=== PATIENT | female | born 1945 | race Caucasian/White ===

== ENCOUNTER → 2017-08-14 14:59 | Outpatient (CLI) | payer MEDICARE, SELFPAY ==
--- NOTE | 2017-08-14 15:03 | HPBI_ITS ---
MAMMOGRAPHY - BILATERAL SCREENING REASON FOR EXAM: Female, 71 years old. Routine annual screening examination. PERTINENT HISTORY: Mother with breast cancer. TECHNIQUE: Digital bilateral breast deepa (3D mammographic acquisition) in the CC and MLO projections. 2-D mediolateral oblique (MLO) and craniocaudad (CC) views of both breasts were obtained. CAD: Full Field Digital Mammography with Computer Added Detection was performed. COMPARISON: Comparison is made with prior study dated July 25, 2015 and November 16, 2013. FINDINGS: Breast Composition: There are scattered areas of fibroglandular density. There are no dominant masses or suspicious calcifications. Stable benign-appearing left axillary lymph nodes. No other significant abnormalities are identified. There has been no significant change since the prior study. HPBI/SCREENING MAMM (CAD), BILAT IMPRESSION: Stable bilateral screening mammogram. Yearly follow-up mammogram recommended. (A) ASSESSMENT CATEGORY: BIRADS Category 2: Benign. A letter regarding these results will be sent to the patient by the facility within 30 days. Approximately 10% of breast cancers are not detected by mammography. A normal mammogram should not delay biopsy of a clinically suspicious abnormality. [id number] Electronically Signed: Arnaldo Magallon MD at 8:50 EST Tel [phone], Service support ,
--- NOTE | 2017-08-14 15:05 | HPBD_ITS ---
STUDY: DUAL ENERGY X-RAY ABSORPTIOMETRY / DXA REASON FOR EXAM: Female, 71 years old. The patient is postmenopausal. TECHNIQUE: Bone Mineral Density (BMD) measurements of lumbar spine and bilateral hips were obtained. COMPARISON: Comparison is made with prior examination dated July 25, 2015. FINDINGS: Lumbar Spine (L1-L4): g/cm2 (0.960) / T-score (-1.7) / Z-score (0.0) Findings are suggestive of osteopenia with a moderate fracture risk. Left Femur Total: g/cm2 (0.816) / T-score (-1.4) / Z-score (0.0) Left Femoral Neck: g/cm2 (0.7-1) / T-score (-2.3) / Z-score (-0.6) Right Femur Total: g/cm2 (0.809) / T-score (-1.6) / Z-score (-0.1) Right Femoral Neck: g/cm2 (0.686) / T-score (-2.5) / Z-score (-0.8) The T-Scores on the most recent prior examination were: Lumbar Spine (L1-L4): There has been improvement of bone density since the previous examination. Left Femur Total: which represents a worsening of 0.4%. Right Femur Total: which represents a worsening of 3.9%. HPBD/DXA BONE DENS W/VERT FX ASMT IMPRESSION: The patient is considered osteopenic as outlined below according to World Benny Organization (WHO) criteria with a moderate fracture risk. There has been worsening of bone density since the previous examination. Reference Information: The T-score is the number of standard deviations above or below the standard which is normal for young adults at their peak bone mineral density. The World Health Organization (WHO) interprets the T-scores as follows: Above -1 Normal bone density Between -1 and -2.5 Osteopenia Equal to / or below -2.5 Osteoporosis As a practical clinical guideline, osteopenia may be graded as follows: Mild -1 through -1.5 Moderate -1.6 through -2.0 Severe -2.1 through -2.4 The Z-score is the number of standard deviations above or below age-matched controls. A Z-score of less than -1.5 would be considered abnormal. References: 1. NIH Osteoporosis and Related Bone Diseases http://www.osteo.org 2. International Society for Clinical Densitometry http://www.iscd.org 3. National Osteoporosis Foundation http://www.nof.org Electronically Signed: Arnaldo Magallon MD at 15:37 EST Tel [phone], Service support ,
== END ==
PROVIDERS: Family Provider Internal Medicine; PCP Internal Medicine; Visit Provider Internal Medicine
DX: Z12.31 Encounter for screening mammogram for malignant neoplasm of breast (principal); Z78.0 Asymptomatic menopausal state
CPT/HCPCS: 77063; 77067; 77085

== ENCOUNTER → 2017-10-13 10:45 | Outpatient (CLI) | payer MEDICARE, SELFPAY ==
--- NOTE | 2017-10-13 10:50 | RAD_ITS ---
STUDY: X-RAY CHEST REASON FOR EXAM: Female, 72 years old. Asbestos exposure. TECHNIQUE: PA and lateral views of the chest. COMPARISON: Portable AP upright chest x-ray May 19, 2016. FINDINGS: The lungs are clear and expanded. There is no demonstrated pleural abnormality. There is borderline cardiac enlargement. Normal mediastinum and nick. Normal visualized pulmonary arteries. There is early atherosclerotic calcification of the aortic arch. There are stable multilevel osteophytic degenerative changes of the visualized thoracic spine. Normal visualized ribs, clavicles, and shoulders. There is no demonstrated abnormality of the visualized soft tissue structures of the upper abdomen. RAD/Chest PA and Lateral IMPRESSION: Borderline cardiac enlargement. No pulmonary infiltrate or CHF. Electronically Signed: Spenser Richard MD at 16:06 EDT , Service support ,
== END ==
PROVIDERS: Family Provider Internal Medicine; PCP Internal Medicine; Visit Provider Internal Medicine
DX: Z77.090 Contact with and (suspected) exposure to asbestos (principal)
CPT/HCPCS: 71046

== ENCOUNTER → 2017-11-13 13:50 | Outpatient (CLI) | payer MEDICARE, SELFPAY ==
--- NOTE | 2017-11-13 13:54 | ECHOD_ITS ---
Reason For Study: chest pain Procedure This was a 2D Doppler, Color Flow transthoracic echocardiogram. Exam performed in department. Left Ventricle Normal size and thickness. The estimated ejection fraction is 65 %. Stage 1 diastolic dysfunction. No regional wall motion abnormalities noted. Right Ventricle Normal size and thickness. Normal systolic function. Atria Normal left atrium. Normal right atrium. Normal atrial septum. Mitral Valve The mitral valve is structurally normal. No prolapse or stenosis seen. Tricuspid Valve Normal tricuspid valve. Trivial tricuspid valve insufficiency. Right ventricular systolic pressure estimated to be 39 mmHg. Mild pulmonary hypertension. Aortic Valve Trisinus/trileaflet aortic valve. Mild focal aortic valve thickening. There is no aortic stenosis. Trivial aortic valve insufficiency. Pulmonic Valve The pulmonic valve is not well visualized. Great Vessels Normal aortic root. Normal arch. Normal inferior vena cava. Inferior vena cava collapse with sniff. Pericardium/Pleural No pericardial effusion. MMode/2D Measurements & Calculations LVIDd: 4.7 cm IVSd: 0.91 cm Ao root diam: 2.6 cm LVIDs: 3.2 cm LVPWd: 1.1 cm RVDd: 2.3 cm FS: 33.0 % LAV(MOD-bp): 27.6 ml LA A4 area: 11.6 cm2 RA A4 area: 9.6 cm2 LAV(MOD-bp) Indexed: 16.3 ml/m2 LAV(MOD-sp2): 32.6 ml LAV(MOD-sp4): 23.6 ml Doppler Measurements & Calculations MV E max roman: 70.4 cm/sec Lat Peak E' Roman: 4.8 cm/sec Med Peak E' Roman: 4.8 cm/sec MV A max roman: 98.2 cm/sec E/E' lat: 14.7 E/E' med: 14.5 MV E/A: 0.72 Ao V2 max: 144.4 cm/sec AI max roman: 421.4 cm/sec LV V1 max: 115.4 cm/sec Ao max P.3 mmHg AI max P.2 mmHg LV V1 max P.3 mmHg AI dec slope: 193.8 cm/sec2 AI P1/2t: 637.0 msec PA V2 max: 100.6 cm/sec TR max roman: 290.0 cm/sec TR max P.6 mmHg Interpretation Summary The estimated ejection fraction is 65 %. Stage 1 diastolic dysfunction. Trivial tricuspid valve insufficiency. Right ventricular systolic pressure estimated to be 39 mmHg. Mild pulmonary hypertension. Trivial aortic valve insufficiency. There is no aortic stenosis. Compared to echo report dated 10/11/2011, LV function has remained the same; RVSP has increased from 28 to 39 mm Hg. Ordering Physician: Hank Brunner Referring Physician: Emily Sheikh Performed By: Anita Bond RDCS, RVT
== END ==
PROVIDERS: Family Provider Internal Medicine; PCP Internal Medicine; Visit Provider Internal Medicine Cardiovascular Disease
DX: R94.31 Abnormal electrocardiogram [ECG] [EKG] (principal)
CPT/HCPCS: 93306

== ENCOUNTER → 2017-12-10 12:32 | Outpatient (CLI) | payer MEDICARE, SELFPAY ==
--- NOTE | 2017-12-10 12:36 | STE_ITS ---
Reason For Study: Chest Pain; Dyspnea Stress Results Protocol: Rinku Protocol Maximum Predicted HR: 149 bpm Target HR: 127 bpm% Max imum Predicted HR: 93 % Heart Stage Duration Rate BPCom ment (mm:ss) (bpm) Baseline 79 168/8 4No Chest Pain Rinku Protocol Stage I 3:00 12 6 156/78No Chest Pain; Mild Dyspnea Rinku Protocol Stage II 2:00 13 9 178/76No Chest Pain; Moderate Dyspnea Mild Chest Pain After Exercise, Resolved 4 Minutes Recovery 91 140/8 0Into Recovery Stress Duration: 5:00 mm:ss Maximum Stress HR: 139 bpmM ETS: 7 Baseline Echocardiogram Findings The estimated ejection fraction is 65 %. Stress Echo Wall motion Data Resting WMIntermediate WMStress WM Resting Wall Motion Wall Motion Stress No regional wall motion Basal anteroseptal: Severely abnormalities noted. Hypokinetic. Mid-Lateral : Severely Hypokinetic. Mid-anteroseptal : Severly Hypokinetic. Anterior [place] : Mildly hypokinetic. EKG Data The baseline ECG demonstrates normal sinus rhythm with at rate of _ beats per minute. The patient exercised according to the regular Rinku protocol for a total duration of 5:00. The maximum heart rate attained was 139 beats per minute. This was 93% of maximum predicted heart rate. The patient exercised into stage 2 of the Rinku protocol. During stress, there were no ST or T wave changes noted to suggest ischemia. Interpretation Summary The estimated ejection fraction is 65 %. Basal anteroseptal: Severely Hypokinetic. Mid-Lateral : Severely Hypokinetic. Mid-anteroseptal : Severly Hypokinetic. Anterior [place] : Mildly hypokinetic Abnormal, adequate, treadmill echocardiogram. Positive for ischemia by echocardiographic criteria. Patient developed mid anterior septal, and mid anterolateral hypokinesis at peak exercise. In addition she developed significant dyspnea on exertion at peak exercise and chest pain post procedure which spontaneously resolved without medical therapy. Appropriate blood pressure response to exercise. Below average exercise capacity for age. Test terminated due to dyspnea. Final LVEF of 45%. Patient will be referred for catheterization. No complications. Ordering Physician: Hank Brunner Referring Physician: Hank Brunner Performed By: Christy Alberts RDCS, RVT
[2017-12-10 14:22] LABS: Absolute Lymphocyte Count 3.11 X10^3/ul (0.83-4.51); Absolute Neutrophil Count 4.3 X10^3/uL (2.0-7.7); Basophil# 0.03 X10^3/uL; Basophil% 0.4 % (0-1); Eosinophil# 0.21 X10^3/uL; Eosinophils% 2.6 % (0-5); Hematocrit 41.8 % (37-47); Hemoglobin 14.1 g/dl (12.0-15.0); Lymphocyte # 3.11 X10^3/ul (4.0); Lymphocyte % 38.5 % (19-41); Mean Corp Hgb Conc 33.7 g/gl (32-36); Mean Corpuscular Hgb 30.7 pg (27.0-32.0); Mean Corpuscular Volume 90.9 fL (81-99); Monocyte# 0.39 X10^3/uL; Monocyte% 4.8 % (0-10); Neutrophil # 4.32 X10^3/uL (2.7-7.7); Neutrophil % 53.6 % (47-70); POSITIVE COUNT NO; POSITIVE DIFFERENTIAL NO; POSITIVE MORPHOLOGY NO; Platelet Count 252 K/mm3 (150-450); RBC Distribution Width CV 12.7 % (11.6-14.6); White Blood Count 8.1 K/mm3 (4.4-11.0)
[2017-12-10 14:41] LABS: International Normalized Ratio 1.1; Prothrombin Time (Protime)PT. 13.9 SECONDS (11.7-14.9)
[2017-12-10 14:42] LABS: Partial Thromboplast Time 32.8 Seconds (24.1-36.2)
[2017-12-10 14:48] LABS: Anion Gap 7 (5-15); BUN 14 mg/dL (7-18); BUN/Creat Ratio 15.7 RATIO (10-20); Chloride 104 mmol/L (98-107); Creatinine, Serum 0.89 mg/dL (0.55-1.02); EST Glomerular Filtration Rate 66 mL/min (>60); Est Glom Filt Rate - Afr Amer 80 mL/min (>60); Glucose 99 mg/dL (74-106); Sodium Level 139 mmol/L (136-145)
== END ==
PROVIDERS: Family Provider Internal Medicine; PCP Internal Medicine; Visit Provider Internal Medicine Cardiovascular Disease
DX: R94.31 Abnormal electrocardiogram [ECG] [EKG] (principal); E78.5 Hyperlipidemia, unspecified; I10 Essential (primary) hypertension; R06.00 Dyspnea, unspecified; R07.9 Chest pain, unspecified; I27.21 Secondary pulmonary arterial hypertension
CPT/HCPCS: 36415; 80048; 85025; 85610; 85730; 93017; 93350

== ENCOUNTER 2017-12-17 07:51 | Day surgery (SDC) | payer MEDICARE, SELFPAY ==
[2017-12-11 08:20] VITALS: BMI 29.8
[2017-12-17] VITALS (24 sets, daily range): BP systolic 115–166; BP diastolic 52–84; PULSE 73–90; RESP 12–22; TEMP 36.8–37.4; O2SAT 94–98; BMI 29.2; BMI 30.5
--- NOTE | 2017-12-17 10:30 | EKG12_ITS ---
Test Reason : Blood Pressure : / mmHG Vent. Rate : 078 BPM Atrial Rate : 078 BPM P-R Int : 194 ms QRS Dur : 088 ms QT Int : 420 ms P-R-T Axes : 056 -23 025 degrees QTc Int : 478 ms Normal sinus rhythm Nonspecific T wave abnormality Prolonged QT Abnormal ECG When compared with ECG of 18-OCT-2016 22:21, No significant change was found Confirmed by TADEO METCALF, KATHERIN ([id number]), online editor MANI KAM ([id number]) on 12/19/2017 10:04:52 AM Referred By: Hank Brunner Confirmed By:KATHERIN PIEDRA MD
--- NOTE | 2017-12-17 10:37 | CL.I_ITS ---
Patient Name: MARIPOSA PIZARRO Study Date: 12/17/2017 Performing: Hank Brunner MD Ht: 61.02 inches 155 cm : 1945 Wt: 158.73 lbs 72 kg Age: 72 Gender: female BSA: 1.71 PROCEDURE(S) PERFORMED OF30-YDT/COR/LV RA04-KVR W OR WO PTCA, SINGLE CORONARY ARTERY CLINICAL PROFILE AND CO-MORBIDITIES Indications: ACS > 24 hrs, Worsening Angina, Suspected CAD Heart Failure: None Stress/Imaging Stress Echocardiogram: Yes Result: Positive Intermediate Risk Stress Echocardiogra m: Positive Intermediate Risk Angina Classification Anginal Classification w/in 2 Weeks: CCS III CAD Presentations: Unstable angina. 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 RECOMMENDATIONS Referred for immediate PCI PCI of PDA in 3 weeks. Highly recommend quitting all tobacco products Follow up with primary gunsmith apprentice Risk factor modification ASA Indefinitley Plavix for at least 12 months Routine post interventional care Refer for Outpatient Cardiac Rehab Manual sheath removal per protocol PCI of PDA in 3 weeks using a HS 2 with Sideholes. Follow up with Dr. Brunner DESCRIPTION OF PROCEDURE The patient arrived to the procedure lab. The risks and benefits of the procedure as well as a full d escription of our services here and lack of surgical backup were fully explained to the patient and/o r their significant other prior to the catheterization. The Timeout was completed, verifying the joe ect patient and procedure. The patient's procedural site was prepped and draped in the usual fashion. Local anesthetic was given subcutaneously to right groin region with Lidocaine 2%. Using a modified Seldinger technique, arterial access was obtained via the right femoral artery, a 4Fr sheath was inse rted. Left Coronary Artery selective angiography was performed in multiple views using a 4 Fr. JL5 c atheter. Right Coronary Artery selective angiography was then performed in multiple views using a 4 F r. AR 2 Mod catheter. Left Ventriculography was performed in ROBERTS projection using a 4 Fr. Pigtail cat heter. LV to AO pullback pressures were then recordedThe images were reviewed and options discussed. A decision was then made to proceed with an Intervention, IVUS or other adjunct procedure. Arterial sheath was exchanged for a 6 Fr Sheath. EBU 3.5 Guide catheter was inserted and engaged into the LCA. BMW Guide wire was advanced to the 1st OM. 2.0x12 emerge Balloon catheter was advanced acro ss lesion in the circumflex, prox. PTCA balloon inflated at 10 atms for 10 secs. Angiogram performed post balloon dilatation. 2.5x16 synergy Drug Eluting stent was advanced across the lesion in the circ umflex, proximal. 2.75x8 NC emerge Balloon catheter was advanced across lesion in the circumflex, pro ximal. Angiogram performed post stent deployment. NC Emerge 3.0x8 Balloon catheter was advanced acros s lesion in the circumflex, proximal. Angiogram performed post stent deployment. The arterial sheat h was sutured in place and capped CORONARY ANGIOGRAPHY DOMINANCE: Right Dominant LEFT HEART ASSESSMENT Left Ventricular Ejection Fraction: by LV Gram 55 % Normal Left Ventricular End Diastolic Pressure Inferior Basal Hypokinesis - Mild LEFT MAIN: Angiographically normal LEFT ANTERIOR DECENDING ARTERY: Mild luminal irregularities less than 30% DIAGONAL 1: Proximal - Mild luminal irregularities less than 30% CIRCUMFLEX ARTERY: PROX CIRC: 85 % Stenosis RIGHT CORONARY ARTERY: MID RCA: Mild luminal irregularities less than 30% RT PDA: Proximal - 75 % Stenosis INTERVENTION INFORMATION LESION SITE: Circumflex (Proximal) Lesion Complexity: Non-High/Non-C, lesion at bifurcation: No, thrombus present: No, lesion length: 16 mm, culprit lesion: Yes Pre Stenosis: 85 % Pre intervention [place] flow: 3 PROCEDURE: Drug Eluting Stent with pre and post dilatation Post Stenosis: 0 % Post intervention [place] flow: 3 Lesion Devices: Medtronic 6 Fr EBU3.5 100cm Guide Catheter [place] .014 BMW Danielson Straight 190cm Rinku Sci EMERGE MR 2.00x12 BALLOON Rinku Sci Synergy MR DAVID 2.50x16 Rinku Sci NC EMERGE MR 2.75x08 BALLOON Rinku Sci NC EMERGE MR 3.00x08 BALLOON COMPLICATIONS No Complications PROCEDURE MEDICATIONS Versed 1 mg IV Oxygen: 2 L/min via nasal cannula Heparin 6000 unit(s) IV 12/17/2017 09:56:22 Nitro 200 mcg IC 12/17/2017 09:59:02 Nitro 200 mcg IC 12/17/2017 09:59:02 SUMMARY OF HEMODYNAMIC DATA Time AIR REST ECG 08:20:36 ECG 09:35:18 AO 122/65 (91) SA 09:44:04 LV 154/12, 15 09:53:38 LV 156/-14, 18 09:54:26 LVp 156/-15, 15 09:54:31 AOp 153/63 (103) 09:54:36 Signed By Hank Brunner MD On 12/17/2017 10:37:00 Hank Brunner MD
[2017-12-17 10:41] LABS: ACT Activated Clotting Time 235 sec (74-137)
[2017-12-17 11:45] LABS: CPK Total, Creatine Kinase 48 U/L (26-192)
[2017-12-17 12:41] LABS: ACT Activated Clotting Time 153 sec (74-137)
--- NOTE | 2017-12-17 13:02 | NURSING ---
lab assistant notified [facility] [id number] and awaiting end of case, as per Dr. Bonilla request. sheath still in place, see intervention
[2017-12-17 13:33] LABS: CPK Total, Creatine Kinase 49 U/L (26-192)
--- NOTE | 2017-12-17 13:34 | CRPHASE1 ---
Patient Data/Charges Trapeze Performer:: Hank Brunner Phase I Charge:: Level I - Education Risk Factors/Lifestyle Smoking Status: Former smoker Hx Hypertension: Yes - ON MEDS Hx Diabetes Mellitus Type 2: No Hx Dyslipidemia: Yes Hx Obesity: Yes Height: 1.52 m Weight:: 71 kg BMI: 30.5 Stress: Long-standing ETOH: No Caffeine: No Substance Abuse: No Family History: Family History (Last Updated 10/23/17 @ 14:29 by Ev Reid) Mother CVA (cerebral vascular accident) Myocardial infarction, Onset Age: 93 Father Myocardial infarction CAD (coronary artery disease) Family History: Heart Disease Phase I Education Given On:: [place], Nutrition, Antiplatelet medication Issues Affecting Care:: None Knowledge of Condition:: Yes Learning Preferences: Verbal Hospital Course Pain Description: Tightness Cardiac Cath Date:: 12/17/17 - GOING TO BE BACK 3 WKS FOR SECOND CATH AND STENT Medical/Surgical History [place]:: No Angina:: Yes - IN THROAT Pulmonary:: No COPD:: No Asthma:: No VOLODYMYR:: No Diabetes:: No Hypertension:: Yes Dyslipidemia:: Yes 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
--- NOTE | 2017-12-17 13:40 | CRPHASE1_ITS ---
Patient Data/Charges Sap Security Architect:: Hank Brunner Phase I Charge:: Level I - Education Risk Factors/Lifestyle Smoking Status: Former smoker Hx Hypertension: Yes - ON MEDS Hx Diabetes Mellitus Type 2: No Hx Dyslipidemia: Yes Hx Obesity: Yes Height: 1.52 m Weight:: 71 kg BMI: 30.5 Stress: Long-standing ETOH: No Caffeine: No Substance Abuse: No Family History: Family History (Last Updated 10/23/17 @ 14:29 by Ev Reid) Mother CVA (cerebral vascular accident) Myocardial infarction, Onset Age: 93 Father Myocardial infarction CAD (coronary artery disease) Family History: Heart Disease Phase I Education Given On:: [place], Nutrition, Antiplatelet medication Issues Affecting Care:: None Knowledge of Condition:: Yes Learning Preferences: Verbal Hospital Course Pain Description: Tightness Cardiac Cath Date:: 12/17/17 - GOING TO BE BACK 3 WKS FOR SECOND CATH AND STENT Medical/Surgical History [place]:: No Angina:: Yes - IN THROAT Pulmonary:: No COPD:: No Asthma:: No VOLODYMYR:: No Diabetes:: No Hypertension:: Yes Dyslipidemia:: Yes 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
--- NOTE | 2017-12-17 13:41 | CRPH1.INSTRU ---
General Education CAD and cardiac anatomy and function:: Patient communicates acknowledgment Explanation of diagnoses and procedures:: Patient communicates acknowledgment Sign/Symptoms of [place]:: Patient communicates acknowledgment Antiplatelet therapy: Patient communicates acknowledgment Proper use of NTG-SL: Patient communicates acknowledgment Emergency procedures and activation of EMS: Patient communicates acknowledgment Compliance of all prescribed medications: Patient communicates acknowledgment Smoking Patient Nicotine/Smoking Risk Factors Are:: Non-smoker Dyslipidemia Recommendations Include:: Lipid profile not available Dyslipidemia Response Code:: Patient communicates acknowledgment Overweight/Obesity Patient Overweight/Obesity Risk Factors Are:: Overweight = 26-29 Overweight/Obesity:: Patient communicates acknowledgment Hypertension Recommendations Include:: Maintain BP <130/85, BP <130/80 if diabetic, Decrease/maintain normal body weight Hypertension:: Patient communicates acknowledgment Heart Disease Patient Heart Disease Risk Factors Are:: Family history of heart disease < 65 years old Heart Disease Response Code:: Patient communicates acknowledgment Diabetes Patient Diabetes Risk Factors Are:: No documented hx of diabetes Metabolic Syndrome Patient Metabolic Syndrome Risk Factors Are [3 of 5]:: Fasting blood sugar > 100 mg/dL, Waist circumference > 35 [female] or 40 [male], High triglyceride >150, Hypertension, Low HDL <40 [male] or < 50 [female] Metabolic Syndrome Response Code:: Patient communicates acknowledgment Sedentary Recommendations Include:: Aerobic exercise 5-7 times/week for 20-30 minutes continuously, Benefits of regular exercise, Discussed home walking program Sedentary Response Code:: Patient communicates acknowledgment Stress Stress Response Code:: Patient communicates acknowledgment
--- NOTE | 2017-12-17 13:44 | CRPH1.INST_ITS ---
General Education CAD and cardiac anatomy and function:: Patient communicates acknowledgment Explanation of diagnoses and procedures:: Patient communicates acknowledgment Sign/Symptoms of [place]:: Patient communicates acknowledgment Antiplatelet therapy: Patient communicates acknowledgment Proper use of NTG-SL: Patient communicates acknowledgment Emergency procedures and activation of EMS: Patient communicates acknowledgment Compliance of all prescribed medications: Patient communicates acknowledgment Smoking Patient Nicotine/Smoking Risk Factors Are:: Non-smoker Dyslipidemia Recommendations Include:: Lipid profile not available Dyslipidemia Response Code:: Patient communicates acknowledgment Overweight/Obesity Patient Overweight/Obesity Risk Factors Are:: Overweight = 26-29 Overweight/Obesity:: Patient communicates acknowledgment Hypertension Recommendations Include:: Maintain BP <130/85, BP <130/80 if diabetic, Decrease/ maintain normal body weight Hypertension:: Patient communicates acknowledgment Heart Disease Patient Heart Disease Risk Factors Are:: Family history of heart disease < 65 years old Heart Disease Response Code:: Patient communicates acknowledgment Diabetes Patient Diabetes Risk Factors Are:: No documented hx of diabetes Metabolic Syndrome Patient Metabolic Syndrome Risk Factors Are [3 of 5]:: Fasting blood sugar > 100 mg/dL, Waist circumference > 35 [female] or 40 [male], High triglyceride > 150, Hypertension, Low HDL <40 [male] or < 50 [female] Metabolic Syndrome Response Code:: Patient communicates acknowledgment Sedentary Recommendations Include:: Aerobic exercise 5-7 times/week for 20-30 minutes continuously, Benefits of regular exercise, Discussed home walking program Sedentary Response Code:: Patient communicates acknowledgment Stress Stress Response Code:: Patient communicates acknowledgment
[2017-12-17 13:58] LABS: M R Staph aureus DNA By PCR Negative (Negative); Probe Check PASS; Specimen Processing Control PASS
[2017-12-17] MEDS: 0.9% Normal Saline 1,000 ML 150 ML IV (16:08)
[2017-12-17 17:41] LABS: CPK Total, Creatine Kinase 51 U/L (26-192)
[2017-12-17] MEDS: Atorvastatin Calcium 10 MG Tablet PO (22:33)
[2017-12-18] VITALS (16 sets, daily range): BP systolic 124–162; BP diastolic 43–80; PULSE 67–90; RESP 14–21; TEMP 36.8–36.9; O2SAT 95–98
[2017-12-18] MEDS: LORazepam 0.5 MG Tablet PO (01:03)
[2017-12-18 05:03] LABS: Hematocrit 37.1 % (37-47); Hemoglobin 12.7 g/dl (12.0-15.0); Mean Corp Hgb Conc 34.2 g/gl (32-36); Mean Corpuscular Hgb 31.3 pg (27.0-32.0); Mean Corpuscular Volume 91.4 fL (81-99); Mean Platelet Vol. 8.9 fl (6.2-12.0); Platelet Count 266 K/mm3 (150-450); RBC Distribution Width CV 12.6 % (11.6-14.6); RBC Distribution Width SD 41.7 fl (35.1-43.9); Red Blood Count 4.06 M/mm3 (4.2-5.4); Scan Indicated on CBC? Y/N NO; White Blood Count 8.7 K/mm3 (4.4-11.0)
[2017-12-18 05:25] LABS: Anion Gap 7 (5-15); BUN 16 mg/dL (7-18); Calcium,Total 8.3 mg/dL (8.5-10.1); Chloride 109 mmol/L (98-107); Creatinine, Serum 0.76 mg/dL (0.55-1.02); EST Glomerular Filtration Rate 80 mL/min (>60); Est Glom Filt Rate - Afr Amer 96 mL/min (>60); Estimated Creatinine Clearance 37.06 ml/min; Glucose 100 mg/dL (74-106); Potassium 4.1 mmol/L (3.5-5.1); Sodium Level 143 mmol/L (136-145)
[2017-12-18] MEDS: 0.9% NaCl Peripheral Flush Adult/Peds IV (06:00)
--- NOTE | 2017-12-18 07:43 | PCM.DC.CCA ---
Discharge Diet: Low fat/ Low Cholesterol Discharge Activity: Return to Normal Activity May shower in (days): 1 May resume sexual activity in: 1-2 weeks Lifting Restrictions: Do not lift anything greater than 10 pounds for three days Call your doctor if your incision/area has: Continuous Slow Oozing, Sudden Increased Bleeding, Increased Pain/ Swelling, Increased Redness, Foul Smelling Discharge, Swelling at the incision site Call your doctor if you observe: Fever of 101 or Higher, Shortness of breath, Chest pain Remove Dressing in (days):: 1 Cleanse incision/area with: Soap & Water Additional Instructions: You will tentatively planned to have your second heart catheterization on January 09. You will be contacted by the [facility] to confirm date and time. Continue with aspirin and Plavix. You will remain on Plavix upwards to one year. Do not stop your Plavix without contacted the [facility] first. You will be schedule for an office follow-up with Bayron Mejia Nurse Practitioner, on January 28, 2018 at 9:00 AM to evaluate overall progress. You may be contacted by cardiac rehab before that office. Allergies/Adverse Reactions: Allergies risedronate sodium [From Actonel] Allergy (Verified 10/23/17 13:55) Other fish oil Adverse Reaction (Verified 10/23/17 14:12) skin erruptions propoxyphene HCl [From Darvon] Adverse Reaction (Verified 10/23/17 13:55) Nausea/Vom/Diarrhea SEASONAL Allergy (Uncoded 10/23/17 13:55) Other STRAWBERRIES Allergy (Uncoded 10/23/17 13:55) Hives ONION Adverse Reaction (Uncoded 10/23/17 13:55) Vomiting statin Adverse Reaction (Uncoded 10/23/17 14:21) abdominal pain Medications to take at Discharge Simvastatin [Zocor] 20 mg PO QHS 05/19/16 Lorazepam [Ativan] 0.5 mg PO DAILY PRN PRN 10/18/16 aspirin 81 mg tablet,delayed release 81 mg PO QDAY 10/22/17 fluticasone 50 mcg/actuation nasal spray,suspension 1 spray INTRANASAL QDAY 10/22/17 calcium carbonate 500 mg calcium (1,250 mg) tablet 1,000 mg PO QDAY tab 10/23/17 tvtqppjpsqeezabp-jkxycrckl-PN-ASA 2 mg-7.8 mg-10 mg-325 mg effervs tab 1 tab PO DAILY 10/23/17 cholecalciferol (vitamin D3) 5,000 unit capsule 5,000 unit PO QDAY 10/23/17 enalapril maleate 2.5 mg tablet 2.5 mg PO QDAY #30 tab 10/23/17 guaifenesin 400 mg tablet 400 mg PO Q4H PRN 10/23/17 loratadine 10 mg tablet 10 mg PO QDAY 10/23/17 magnesium 250 mg tablet 250 mg PO QDAY 10/23/17 omeprazole 20 mg capsule,delayed release 20 mg PO QDAY PRN 10/23/17 pyridoxine (vitamin B6) 100 mg tablet 100 mg PO QDAY 10/23/17 vitamins-lipotropics tablet 1 tab PO QDAY 10/23/17 clopidogrel 75 mg tablet 75 mg PO QDAY #30 tab 12/10/17 Primary Care Physician: Emily Sheikh DO [Primary Care Provider] - Please Follow Up With: Bayron Alberts - [facility] Nurse Practitioner When: January 28, 2018 @ 9:00 AM Proposed Discharge Date: 12/18/17 Cardiac Rehabilitation Info Cardiac Rehabilitation Program Information: Cardiac Rehabilitation is important for patients like you who are recovering from a heart problem. Cardiac rehabilitation programs are recognized as integral to the continued care of the patient with coronary heart disease. The cardiac rehabilitation program is designed to optimize a patient's physical, psychological, and social functioning. Health critical care unit nurse work in cardiac rehabilitation programs and assist you with getting the treatments you need to get stronger and healthier - like exercise, healthy eating habits, and medications. Cardiac rehabilitation has been show to help people with heart problems live longer and have better life enjoyment than people who do not go to cardiac rehabilitation. Please contact the Cardiac Rehabilitation Program at [facility] at in two weeks if you have not heard from them.
--- NOTE | 2017-12-18 07:48 | DCINST_ITS ---
Discharge Diet: Low fat/ Low Cholesterol Discharge Activity: Return to Normal Activity May shower in (days): 1 May resume sexual activity in: 1-2 weeks Lifting Restrictions: Do not lift anything greater than 10 pounds for three days Call your doctor if your incision/area has: Continuous Slow Oozing, Sudden Increased Bleeding, Increased Pain/ Swelling, Increased Redness, Foul Smelling Discharge, Swelling at the incision site Call your doctor if you observe: Fever of 101 or Higher, Shortness of breath, Chest pain Remove Dressing in (days):: 1 Cleanse incision/area with: Soap & Water Additional Instructions: You will tentatively planned to have your second heart catheterization on January 09. You will be contacted by the [facility] to confirm date and time. Continue with aspirin and Plavix. You will remain on Plavix upwards to one year. Do not stop your Plavix without contacted the [facility] first. You will be schedule for an office follow-up with Bayron Mejia Nurse Practitioner, on January 28, 2018 at 9:00 AM to evaluate overall progress. You may be contacted by cardiac rehab before that office. Allergies/Adverse Reactions: Allergies risedronate sodium [From Actonel] Allergy (Verified 10/23/17 13:55) Other fish oil Adverse Reaction (Verified 10/23/17 14:12) skin erruptions propoxyphene HCl [From Darvon] Adverse Reaction (Verified 10/23/17 13:55) Nausea/Vom/Diarrhea SEASONAL Allergy (Uncoded 10/23/17 13:55) Other STRAWBERRIES Allergy (Uncoded 10/23/17 13:55) Hives ONION Adverse Reaction (Uncoded 10/23/17 13:55) Vomiting statin Adverse Reaction (Uncoded 10/23/17 14:21) abdominal pain Medications to take at Discharge Simvastatin [Zocor] 20 mg PO QHS 05/19/16 Lorazepam [Ativan] 0.5 mg PO DAILY PRN PRN 10/18/16 aspirin 81 mg tablet,delayed release 81 mg PO QDAY 10/22/17 fluticasone 50 mcg/actuation nasal spray,suspension 1 spray INTRANASAL QDAY 08/10 calcium carbonate 500 mg calcium (1,250 mg) tablet 1,000 mg PO QDAY tab kitioctliaydxjty-hgmmlmtsx-SX-ASA 2 mg-7.8 mg-10 mg-325 mg effervs tab 1 tab PO DAILY 10/23/17 cholecalciferol (vitamin D3) 5,000 unit capsule 5,000 unit PO QDAY 10/23/17 enalapril maleate 2.5 mg tablet 2.5 mg PO QDAY #30 tab 10/23/17 guaifenesin 400 mg tablet 400 mg PO Q4H PRN 10/23/17 loratadine 10 mg tablet 10 mg PO QDAY 10/23/17 magnesium 250 mg tablet 250 mg PO QDAY 10/23/17 omeprazole 20 mg capsule,delayed release 20 mg PO QDAY PRN 10/23/17 pyridoxine (vitamin B6) 100 mg tablet 100 mg PO QDAY 10/23/17 vitamins-lipotropics tablet 1 tab PO QDAY 10/23/17 clopidogrel 75 mg tablet 75 mg PO QDAY #30 tab 12/10/17 Primary Care Physician: Emily Sheikh DO [Primary Care Provider] - Please Follow Up With: Bayron Alberts - [facility] Nurse Practitioner When: January 28, 2018 @ 9:00 AM Proposed Discharge Date: 12/18/17 Cardiac Rehabilitation Info Cardiac Rehabilitation Program Information: Cardiac Rehabilitation is important for patients like you who are recovering from a heart problem. Cardiac rehabilitation programs are recognized as integral to the continued care of the patient with coronary heart disease. The cardiac rehabilitation program is designed to optimize a patient's physical, psychological, and social functioning. Health care specialist work in cardiac rehabilitation programs and assist you with getting the treatments you need to get stronger and healthier - like exercise, healthy eating habits, and medications. Cardiac rehabilitation has been show to help people with heart problems live longer and have better life enjoyment than people who do not go to cardiac rehabilitation. Please contact the Cardiac Rehabilitation Program at [facility] at in two weeks if you have not heard from them.
[2017-12-18] MEDS: Pyridoxine HCl 100 MG Tablet PO (08:02)
[2017-12-18] MEDS: Lisinopril 2.5 MG Tablet PO (08:02)
[2017-12-18] MEDS: Loratadine 10 MG Tablet PO (08:02)
[2017-12-18] MEDS: Calcium (Elemental) 500 MG Tablet 1000 MG PO (08:02)
[2017-12-18] MEDS: Clopidogrel Bisulfate 75 MG Tablet PO (08:02)
[2017-12-18] MEDS: Aspirin E.C. 81 MG Tablet PO (08:02)
[2017-12-18] MEDS: Magnesium Oxide 400 MG Tablet PO (08:02)
[2017-12-18] MEDS: Fluticasone 0.05% 1 SPRAY NASAL.SRY NASAL (08:02)
--- NOTE | 2017-12-18 08:05 | PCM.PN.BLA ---
Progress Note Patient will start beta lidia, Propanolol, today upon discharge. A prescription will be sent electronically to her desired pharmacy.
--- NOTE | 2017-12-18 10:00 | EKG12_ITS ---
Test Reason : AM EKG Blood Pressure : / mmHG Vent. Rate : 073 BPM Atrial Rate : 073 BPM P-R Int : 194 ms QRS Dur : 082 ms QT Int : 410 ms P-R-T Axes : 062 000 057 degrees QTc Int : 451 ms Normal sinus rhythm Nonspecific T wave abnormality Abnormal ECG When compared with ECG of 17-DEC-2017 11:06, MANUAL COMPARISON REQUIRED, DATA IS UNCONFIRMED Confirmed by TADEO METCALF, KATHERIN ([id number]), purchase request editor MANI KAM ([id number]) on 12/19/2017 10:04:08 AM Referred By: Hank Brunner Confirmed By:KATHERIN PIEDRA MD
--- NOTE | 2017-12-18 13:01 | PCM.PN.CARD ---
Subjectve: Patient doing very well this morning, no 24 hour events. Telemetry negative. No chest pain, right groin is clean/dry/intact without evidence of thrills, hematoma or bruits. Hemoglobin and creatinine within nominal limits. CKs negative. EKG shows normal sinus rhythm, no acute changes. Objective: Vital Signs Temp Pulse Resp BP Pulse Ox 98.2 F 78 21 H 140/80 H 96 12/18/17 12:00 12/18/17 12:00 12/18/17 12:00 12/18/17 12:00 12/18/17 12:00 Oxygen Delivery Method Room Air Weight: 156 lb 15.506 oz Body Mass Index (BMI) 29.2 Finger Stick Blood Glucose 111 Intake and Output for Last 24 Hours 12/16/17 12/17/17 12/18/17 23:59 23:59 23:59 Intake Total 850 / 850 1540 / 1540 Output Total 550 / 550 1750 / 1750 Balance 300 / 300 -210 / -210 General: Awake, Alert, Oriented x 3 HEENT: PERRL, EOMI, Sclera Non Icteric Neck: Supple, Good ROM, No Lymph Node Enlargement Lungs: Clear to auscultation Cardiovascular: Regular Rhythm, Normal S1, Normal S2, No Murmurs, No Rubs, No Gallops Vascular: No Carotid Bruits, Normal Femoral Pulses, Normal Radial Pulses, Normal Dorsalis Pedal Pulse, Normal Posterior Tibial Pulses Abdomen: Bowel Sounds Present, Soft, Non Tender, No HSM, No Organomegaly Extremities: No Cyanosis, No Clubbing, No edema Neurological: No Focal Motor or Sensory Deficit 12/18/17 04:55: WBC 8.7, RBC 4.06 L, Hgb 12.7, Hct 37.1, MCV 91.4, MCH 31.3, MCHC 34.2, RDW 12.6, RDW Differential 41.7, Plt Count 266, MPV 8.9 12/18/17 04:55: Sodium 143, Potassium 4.1, Chloride 109 H, Carbon Dioxide 27.0, Anion Gap 7, BUN 16, Creatinine 0.76, Est GFR (MDRD) Af Amer 96, Est GFR (MDRD) Non-Af 80, BUN/Creatinine Ratio 21.0 H, Glucose 100, Calcium 8.3 L Rhythm: EKG: ECHO: Stress Test: Cardiac Cath: PCI: CT Surgery: Holter monitor: EPS: PPM: CXR: Chest CT Scan: Medical Necessity - Tobacco Use Smoking Status: Former smoker Assessment/Plan 1. Coronary artery disease: The patient had a markedly abnormal stress test with evidence of anterolateral ischemia and was discovered to have a 85% stenosis in her proximal left circumflex which was most likely the culprit lesion. This was successfully stented yesterday without complications. She was also found to have a proximal posterior descending artery stenosis which will require elective angioplasty and drug-eluting stenting in 3 weeks time. This may require a AL-1 catheter. She will continue aspirin, Plavix, we will start her on propranolol low dose for the added benefit of anti-anxiety given her significant anxiety. If she does not tolerate this well, I would switch her to atenolol or Coreg. Once her second angioplasty is been completed, we will enroll her in cardiac rehab which will have the added benefit of decreasing her anxiety as well. 2. Hypercholesterolemia: Continue statin based medications. Repeat lipid profile in 6 weeks. 3. Discharge patient home. Code Visit Inpatient E&M: 03972 Subs Hosp L2
== END 2017-12-18 14:35 | disposition home or self-care (01) ==
LOC: CLSP 07:55 → ICU 10:19
PROVIDERS: Family Provider Internal Medicine; PCP Internal Medicine; Visit Provider Internal Medicine Cardiovascular Disease
DX: I25.119 Atherosclerotic heart disease of native coronary artery with unspecified angina pectoris (principal); I27.21 Secondary pulmonary arterial hypertension; I10 Essential (primary) hypertension; E78.00 Pure hypercholesterolemia, unspecified; K58.9 Irritable bowel syndrome, unspecified; H81.10 Benign paroxysmal vertigo, unspecified ear; F41.9 Anxiety disorder, unspecified; Z79.02 Long term (current) use of antithrombotics/antiplatelets; Z79.82 Long term (current) use of aspirin; Z79.899 Other long term (current) drug therapy; Z87.891 Personal history of nicotine dependence
CPT/HCPCS: 80048; 82550; 85027; 85347; 87641; 92928; 93005; 93458; 99152; 99153; J7030; J7040; A4216; C1725; C1769; C1874; C1887; C1894; C9600; Q9967

== ENCOUNTER 2018-01-07 08:02 | Day surgery (SDC) | payer MEDICARE, SELFPAY ==
[2017-12-17 13:40] VITALS: BMI 30.5
[2018-01-06 09:25] VITALS: BMI 29.8
[2018-01-07] VITALS (31 sets, daily range): BP systolic 107–150; BP diastolic 50–66; PULSE 59–72; RESP 11–20; TEMP 36.6–37.1; O2SAT 94–98; BMI 33.0
--- NOTE | 2018-01-07 10:22 | CL.I_ITS ---
Patient Name: MARIPOSA PIZARRO Study Date: 01/07/2018 Performing: Hank Brunner MD Ht: 61.02 inches 155 cm : 1945 Wt: 158.73 lbs 72 kg Age: 72 Gender: female BSA: 1.71 PROCEDURE(S) PERFORMED [id number]-KCC W OR WO PTCA, SINGLE CORONARY ARTERY CLINICAL PROFILE AND CO-MORBIDITIES Indications: Worsening Angina Heart Failure: None Stress/Imaging Stress Echocardiogram: Yes Result: Positive High Risk Stress Echocardiogram: Posit ashley High Risk Angina Classification Anginal Classification w/in 2 Weeks: CCS III CAD Presentations: Unstable angina. Comorbidities/Risk Factors: Hypertension Dyslipidemia Prior PCI CONCLUSIONS Successful PTCA/DAVID of the of proximal PDA with a 2.25 x 12 Promus Synergy; 75%-->0% no dissection. Pt had identical CP/angina during balloon inflation and stent deployment. RECOMMENDATIONS Highly recommend quitting all tobacco products Follow up with primary radiological metallurgist Risk factor modification ASA Indefinitley Plavix for at least 12 months Routine post interventional care Refer for Outpatient Cardiac Rehab Manual sheath removal per protocol Follow up with Dr. Brunner Manual sheath removal due to shallow femoral access. DESCRIPTION OF PROCEDURE The patient arrived to the procedure lab. The risks and benefits of the procedure as well as a full d escription of our services here and current unavailability of surgical backup were fully explained to the patient and/or their significant other prior to the catheterization. The Timeout was completed, verifying the correct patient and procedure. The patient's procedural site was prepped and draped in the usual fashion. Local anesthetic was given subcutaneously to right groin region with Lidocaine 2%. Using a modified Seldinger technique, arterial access was obtained via the right femoral artery, a 6 Fr sheath was inserted.. The images were reviewed and options discussed. A decision was then made to proceed with an Intervention, IVUS or other adjunct procedure. HS 2 SH Guide catheter was inserted and engaged into the RCA. hs1 SH Guide catheter was inserted and engaged into the RCA. [employer] [place] Wire Guide wire was advanced to the Right PDA. 2.0 x 12 emerge Ba [place] catheter was inserted. Balloon catheter was advanced across lesion in the posterior descending, proximal. Angiogram performed pre balloon dilatation. PTCA balloon inflated at 6 atms for 25 secs. A ngiogram performed post balloon dilatation. 2.25 x 12 synergy Drug Eluting stent was inserted. Angiog surinder performed pre stent deployment. Drug Eluting stent was advanced across the lesion in the posterio r descending, proximal. Angiogram performed post stent deployment. Arterial sheath was exchanged from a 45cm 6fr sheath to a short 11 cm 6 Fr Sheath. The arterial sheath was sutured in place and capped INTERVENTION INFORMATION LESION SITE: RT PDA (Proximal) Lesion Complexity: Non-High/Non-C, lesion at bifurcation: No, thrombus present: No, lesion length: 12 mm, culprit lesion: Yes Pre Stenosis: 75 % Pre intervention [place] flow: 3 PROCEDURE: Drug Eluting Stent with pre dilatation. Post Stenosis: 0 % Post intervention [place] flow: 3 Lesion Devices: [place] .014 BMW [place] Straight 190cm Medtronic 6 Fr HSII SH 100cm Guide Catheter Rinku Sci EMERGE MR 2.00x12 BALLOON Medtronic 6 Fr HSI SH 100cm Guide Catheter Rinku Sci Synergy MR DAVID 2.25x12 COMPLICATIONS No Complications PROCEDURE MEDICATIONS Versed 1 mg IV Versed 1 mg IV Oxygen: 2 L/min via nasal cannula Heparin 6000 unit(s) IV 01/07/2018 09:39:54 Nitro 200 mcg IC 01/07/2018 09:48:04 Nitro 200 mcg IC 01/07/2018 09:48:04 Nitro 200 mcg IC 01/07/2018 09:52:47 IV Bolus: 400 cc .9 NaCl ml total 01/07/2018 09:39:22 SUMMARY OF HEMODYNAMIC DATA Time AIR REST ECG 08:29:21 AO 145/58 (91) SA 09:41:25 Signed By Hank Brunner MD On 01/07/2018 10:21:17 Hank Brunner MD
--- NOTE | 2018-01-07 10:29 | EKG12_ITS ---
Test Reason : PCI Blood Pressure : / mmHG Vent. Rate : 064 BPM Atrial Rate : 064 BPM P-R Int : 196 ms QRS Dur : 086 ms QT Int : 450 ms P-R-T Axes : 053 -17 033 degrees QTc Int : 464 ms Normal sinus rhythm Nonspecific T wave abnormality Abnormal ECG When compared with ECG of 18-DEC-2017 05:05, Nonspecific T wave abnormality no longer evident in Lateral leads Confirmed by MARVIN BRUNNER ([id number]), manuscript editor TORRIE LOPES ([id number]) on 01/13/2018 2:11:34 PM Referred By: Marvin Brunner Confirmed By:MARVIN BRUNNER
--- NOTE | 2018-01-07 11:37 | CRPHASE1 ---
Patient Data/Charges Former Patient:: Phase I Lead Programmer:: Hank Brunner Phase I Charge:: Level I - Education - SHE WAS SEEN ON PREVIOUS VISIT AND INFORMATION WAS GIVEN Risk Factors/Lifestyle Family History: Family History (Last Updated 10/23/17 @ 14:29 by Ev Reid) Mother CVA (cerebral vascular accident) Myocardial infarction, Onset Age: 93 Father Myocardial infarction CAD (coronary artery disease)
[2018-01-07] MEDS: 0.9% Normal Saline 1,000 ML 150 ML IV (11:41)
[2018-01-07 12:41] LABS: ACT Activated Clotting Time 147 sec (74-137)
[2018-01-07 12:45] LABS: ACT Activated Clotting Time 236 sec (74-137)
[2018-01-07 12:55] LABS: M R Staph aureus DNA By PCR Negative (Negative); Probe Check PASS; Specimen Processing Control PASS
[2018-01-07] MEDS: Atorvastatin Calcium 10 MG Tablet PO (21:13)
[2018-01-07] MEDS: 0.9% NaCl Peripheral Flush Adult/Peds IV (21:16)
[2018-01-08] VITALS (13 sets, daily range): BP systolic 104–138; BP diastolic 36–72; PULSE 58–75; RESP 14–19; TEMP 36.7–36.9; O2SAT 92–96
[2018-01-08 04:11] LABS: Hematocrit 37.1 % (37-47); Hemoglobin 12.8 g/dl (12.0-15.0); Mean Corp Hgb Conc 34.5 g/gl (32-36); Mean Corpuscular Hgb 31.6 pg (27.0-32.0); Mean Corpuscular Volume 91.6 fL (81-99); Mean Platelet Vol. 8.9 fl (6.2-12.0); Platelet Count 232 K/mm3 (150-450); RBC Distribution Width CV 12.6 % (11.6-14.6); RBC Distribution Width SD 41.6 fl (35.1-43.9); Red Blood Count 4.05 M/mm3 (4.2-5.4); White Blood Count 7.2 K/mm3 (4.4-11.0)
[2018-01-08 04:15] LABS: Scan Indicated on CBC? Y/N NO
[2018-01-08 04:31] LABS: AST(SGOT) 28 U/L (15-37); Alanine Aminotransfer ALT/SGPT 36 U/L (13-56); Albumin, Serum 3.4 g/dL (3.2-5.0); Alkaline Phosphatase 57 U/L (45-117); Anion Gap 7 (5-15); BUN 16 mg/dL (7-18); BUN/Creat Ratio 20.1 RATIO (10-20); Calcium,Total 8.6 mg/dL (8.5-10.1); Chloride 107 mmol/L (98-107); Cholesterol 162 mg/dL (200); EST Glomerular Filtration Rate 76 mL/min (>60); Est Glom Filt Rate - Afr Amer 91 mL/min (>60); Estimated Creatinine Clearance 48.67 ml/min; Globulin 3.3 g/dL (2.2-4.2); Glucose 97 mg/dL (74-106); High Density Lipoprotein 32 mg/dL; Protein, Total 6.7 g/dL (6.4-8.2); Sodium Level 141 mmol/L (136-145); Triglycerides 283 mg/dL; Very Low Density Lipoprotein 57 mg/dL (5-40)
--- NOTE | 2018-01-08 06:44 | PCM.DC.CCA ---
Discharge Diet: Low fat/ Low Cholesterol Discharge Activity: Return to Normal Activity May shower in (days): 1 May resume sexual activity in: 1-2 weeks Lifting Restrictions: Do not lift anything greater than 10 pounds for 3 days Call your doctor if your incision/area has: Continuous Slow Oozing, Sudden Increased Bleeding, Increased Pain/ Swelling, Increased Redness, Foul Smelling Discharge, Swelling at the incision site Call your doctor if you observe: Fever of 101 or Higher, Shortness of breath, Chest pain Change Dressing in (Days):: 1 Additional Instructions: You will continue with Plavix for at least one year. If anyone asks you to stop this medication, please contact the [facility] office first. Keep your 01/28/2018 appointment with Bayron Mejia Nurse Practitioner, at 9:00 AM. If you have questions or concerns, please call the [facility] office at [phone]. Allergies/Adverse Reactions: Allergies risedronate sodium [From Actonel] Allergy (Verified 01/07/18 08:11) Other fish oil Adverse Reaction (Verified 01/07/18 08:11) skin erruptions propoxyphene HCl [From Darvon] Adverse Reaction (Verified 01/07/18 08:11) Nausea/Vom/Diarrhea SEASONAL Allergy (Uncoded 01/07/18 08:11) Other STRAWBERRIES Allergy (Uncoded 01/07/18 08:11) Hives ONION Adverse Reaction (Uncoded 01/07/18 08:11) Vomiting statin Adverse Reaction (Uncoded 01/07/18 08:11) abdominal pain Medications to take at Discharge Simvastatin [Zocor] 20 mg PO QHS 05/19/16 Lorazepam [Ativan] 0.5 mg PO DAILY PRN PRN 10/18/16 aspirin 81 mg tablet,delayed release 81 mg PO QDAY 10/22/17 fluticasone 50 mcg/actuation nasal spray,suspension 1 spray INTRANASAL QDAY 10/22/17 calcium carbonate 500 mg calcium (1,250 mg) tablet 1,000 mg PO QDAY tab 10/23/17 tftmuadcjupnqxhk-dyzkadrqv-UW-ASA 2 mg-7.8 mg-10 mg-325 mg effervs tab 1 tab PO DAILY 10/23/17 cholecalciferol (vitamin D3) 5,000 unit capsule 5,000 unit PO QDAY 10/23/17 enalapril maleate 2.5 mg tablet 2.5 mg PO QDAY #30 tab 10/23/17 guaifenesin 400 mg tablet 400 mg PO Q4H PRN 10/23/17 loratadine 10 mg tablet 10 mg PO QDAY 10/23/17 magnesium 250 mg tablet 250 mg PO QDAY 10/23/17 omeprazole 20 mg capsule,delayed release 20 mg PO QDAY PRN 10/23/17 pyridoxine (vitamin B6) 100 mg tablet 100 mg PO QDAY 10/23/17 vitamins-lipotropics tablet 1 tab PO QDAY 10/23/17 clopidogrel 75 mg tablet 75 mg PO QDAY #30 tab 12/10/17 propranolol ER 60 mg capsule,24 hr,extended release 60 mg PO QDAY #30 cap 12/18/17 Primary Care Physician: Emily Sheikh DO [Primary Care Provider] - Test Results: Test results from this visit will be discussed in further detail at your follow-up appointment, if applicable. Please Follow Up With: Bayron Alberts, Nurse Practitioner When: 01/28/2018 @ 9:00 AM Proposed Discharge Date: 01/08/18 Cardiac Rehabilitation Info Cardiac Rehabilitation Program Information: Cardiac Rehabilitation is important for patients like you who are recovering from a heart problem. Cardiac rehabilitation programs are recognized as integral to the continued care of the patient with coronary heart disease. The cardiac rehabilitation program is designed to optimize a patient's physical, psychological, and social functioning. Health day care home mother work in cardiac rehabilitation programs and assist you with getting the treatments you need to get stronger and healthier - like exercise, healthy eating habits, and medications. Cardiac rehabilitation has been show to help people with heart problems live longer and have better life enjoyment than people who do not go to cardiac rehabilitation. Please contact the Cardiac Rehabilitation Program at [facility] at in two weeks if you have not heard from them.
--- NOTE | 2018-01-08 06:47 | DCINST_ITS ---
Discharge Diet: Low fat/ Low Cholesterol Discharge Activity: Return to Normal Activity May shower in (days): 1 May resume sexual activity in: 1-2 weeks Lifting Restrictions: Do not lift anything greater than 10 pounds for 3 days Call your doctor if your incision/area has: Continuous Slow Oozing, Sudden Increased Bleeding, Increased Pain/ Swelling, Increased Redness, Foul Smelling Discharge, Swelling at the incision site Call your doctor if you observe: Fever of 101 or Higher, Shortness of breath, Chest pain Change Dressing in (Days):: 1 Additional Instructions: You will continue with Plavix for at least one year. If anyone asks you to stop this medication, please contact the [facility] office first. Keep your 01/28/2018 appointment with Bayron Mejia Nurse Practitioner, at 9:00 AM. If you have questions or concerns, please call the [facility] office at [phone]. Allergies/Adverse Reactions: Allergies risedronate sodium [From Actonel] Allergy (Verified 01/07/18 08:11) Other fish oil Adverse Reaction (Verified 01/07/18 08:11) skin erruptions propoxyphene HCl [From Darvon] Adverse Reaction (Verified 01/07/18 08:11) Nausea/Vom/Diarrhea SEASONAL Allergy (Uncoded 01/07/18 08:11) Other STRAWBERRIES Allergy (Uncoded 01/07/18 08:11) Hives ONION Adverse Reaction (Uncoded 01/07/18 08:11) Vomiting statin Adverse Reaction (Uncoded 01/07/18 08:11) abdominal pain Medications to take at Discharge Simvastatin [Zocor] 20 mg PO QHS 05/19/16 Lorazepam [Ativan] 0.5 mg PO DAILY PRN PRN 10/18/16 aspirin 81 mg tablet,delayed release 81 mg PO QDAY 10/22/17 fluticasone 50 mcg/actuation nasal spray,suspension 1 spray INTRANASAL QDAY 08/10 calcium carbonate 500 mg calcium (1,250 mg) tablet 1,000 mg PO QDAY tab qtjusqhjpxmjepfy-unnvkdxkz-TB-ASA 2 mg-7.8 mg-10 mg-325 mg effervs tab 1 tab PO DAILY 10/23/17 cholecalciferol (vitamin D3) 5,000 unit capsule 5,000 unit PO QDAY 10/23/17 enalapril maleate 2.5 mg tablet 2.5 mg PO QDAY #30 tab 10/23/17 guaifenesin 400 mg tablet 400 mg PO Q4H PRN 10/23/17 loratadine 10 mg tablet 10 mg PO QDAY 10/23/17 magnesium 250 mg tablet 250 mg PO QDAY 10/23/17 omeprazole 20 mg capsule,delayed release 20 mg PO QDAY PRN 10/23/17 pyridoxine (vitamin B6) 100 mg tablet 100 mg PO QDAY 10/23/17 vitamins-lipotropics tablet 1 tab PO QDAY 10/23/17 clopidogrel 75 mg tablet 75 mg PO QDAY #30 tab 12/10/17 propranolol ER 60 mg capsule,24 hr,extended release 60 mg PO QDAY #30 cap Primary Care Physician: Emily Sheikh DO [Primary Care Provider] - Test Results: Test results from this visit will be discussed in further detail at your follow- up appointment, if applicable. Please Follow Up With: Bayron Alberts, Nurse Practitioner When: 01/28/2018 @ 9:00 AM Proposed Discharge Date: 01/08/18 Cardiac Rehabilitation Info Cardiac Rehabilitation Program Information: Cardiac Rehabilitation is important for patients like you who are recovering from a heart problem. Cardiac rehabilitation programs are recognized as integral to the continued care of the patient with coronary heart disease. The cardiac rehabilitation program is designed to optimize a patient's physical, psychological, and social functioning. Health medical care administrator work in cardiac rehabilitation programs and assist you with getting the treatments you need to get stronger and healthier - like exercise, healthy eating habits, and medications. Cardiac rehabilitation has been show to help people with heart problems live longer and have better life enjoyment than people who do not go to cardiac rehabilitation. Please contact the Cardiac Rehabilitation Program at [facility] at in two weeks if you have not heard from them.
[2018-01-08] MEDS: Magnesium Oxide 400 MG Tablet PO (07:45)
[2018-01-08] MEDS: Calcium (Elemental) 500 MG Tablet 1000 MG PO (07:45)
[2018-01-08] MEDS: Pyridoxine HCl 100 MG Tablet PO (07:45)
[2018-01-08] MEDS: Aspirin E.C. 81 MG Tablet PO (07:45)
--- NOTE | 2018-01-08 08:41 | PN.CARD_ITS ---
Subjectve: Patient doing very well this morning. She denies any chest pain. Telemetry negative. Right groin is clean/dry/intact, no thrills, bruits or hematoma. EKG shows normal sinus rhythm, no acute changes. Hemoglobin and creatinine are within nominal limits. Objective: Vital Signs Temp Pulse Resp BP Pulse Ox 98.5 F 61 17 120/72 96 01/08/18 08:00 01/08/18 08:00 01/08/18 08:00 01/08/18 08:00 01/08/18 08:00 Oxygen Delivery Method Room Air Weight: 169 lb 15.622 oz Body Mass Index (BMI) 33.0 Finger Stick Blood Glucose 111 Intake and Output for Last 24 Hours 01/06/18 01/07/18 01/08/18 23:59 23:59 23:59 Intake Total 1478 / 1478 60 / 60 Output Total 800 / 800 Balance 678 / 678 60 / 60 General: Awake, Alert, Oriented x 3 HEENT: PERRL, EOMI, Sclera Non Icteric Neck: Supple, Good ROM, No Lymph Node Enlargement Lungs: Clear to auscultation Cardiovascular: Regular Rhythm, Normal S1, Normal S2, No Murmurs, No Rubs, No Gallops Vascular: No Carotid Bruits, Normal Femoral Pulses, Normal Radial Pulses, Normal Dorsalis Pedal Pulse, Normal Posterior Tibial Pulses Abdomen: Bowel Sounds Present, Soft, Non Tender, No HSM, No Organomegaly Extremities: No Cyanosis, No Clubbing, No edema Neurological: No Focal Motor or Sensory Deficit 01/08/18 04:00: WBC 7.2, RBC 4.05 L, Hgb 12.8, Hct 37.1, MCV 91.6, MCH 31.6, MCHC 34.5, RDW 12.6, RDW Differential 41.6, Plt Count 232, MPV 8.9 01/08/18 04:00: Sodium 141, Potassium 4.0, Chloride 107, Carbon Dioxide 27.0, Anion Gap 7, BUN 16, Creatinine 0.80, Est GFR (MDRD) Af Amer 91, Est GFR (MDRD) Non-Af 76, BUN/Creatinine Ratio 20.1 H, Glucose 97, Calcium 8.6, Total Bilirubin 0.50, Triglycerides 283 H, Cholesterol 162, LDL Cholesterol 73, VLDL Cholesterol 57 H, HDL Cholesterol 32 L Rhythm: EKG: ECHO: Stress Test: Cardiac Cath: PCI: CT Surgery: Holter monitor: EPS: PPM: CXR: Chest CT Scan: Medical Necessity - Tobacco Use Smoking Status: Former smoker Assessment/Plan 1. Coronary artery disease: Patient status post angioplasty and drug-eluting stenting to her proximal PDA with an excellent result. Her right groin is clean /dry/intact without thrills, hematoma or bruits. Patient will continue baby aspirin, Plavix, and antihypertensive medications. She will be enrolled in cardiac rehab once her groin is healed. 2. Hyperlipidemia: Her LDL and HDL cholesterol are fairly well-controlled. Continue statin based medications. 3. Patient may be discharged home. She will follow-up with me going forward. Code Visit Inpatient E&M: 70863 Subs Hosp L2
[2018-01-08] MEDS: Clopidogrel Bisulfate 75 MG Tablet PO (09:14)
[2018-01-08] MEDS: Loratadine 10 MG Tablet PO (09:14)
[2018-01-08] MEDS: Propranolol LA 60 MG Capsule PO (09:14)
--- NOTE | 2018-01-08 10:00 | EKG12_ITS ---
Test Reason : AM EKG Blood Pressure : / mmHG Vent. Rate : 062 BPM Atrial Rate : 062 BPM P-R Int : 204 ms QRS Dur : 082 ms QT Int : 446 ms P-R-T Axes : 053 -21 032 degrees QTc Int : 452 ms Normal sinus rhythm Nonspecific T wave abnormality Abnormal ECG When compared with ECG of 07-JAN-2018 10:35, MANUAL COMPARISON REQUIRED, DATA IS UNCONFIRMED Confirmed by MARVIN BRUNNER ([id number]), loan expeditor TORRIE LOPES ([id number]) on 01/13/2018 2:13:26 PM Referred By: Marvin Brunner Confirmed By:MARVIN BRUNNER
== END 2018-01-08 10:40 | disposition home or self-care (01) ==
LOC: CLSP 08:03 → ICU 09:53
PROVIDERS: Family Provider Internal Medicine; PCP Internal Medicine; Visit Provider Internal Medicine Cardiovascular Disease
DX: I25.119 Atherosclerotic heart disease of native coronary artery with unspecified angina pectoris (principal); E78.00 Pure hypercholesterolemia, unspecified
CPT/HCPCS: 80053; 80061; 85027; 85347; 87641; 92928; 93005; 99152; 99153; J7030; J7040; A4216; C1725; C1769; C1874; C1887; C1894; C9600; Q9967

== ENCOUNTER → 2018-01-21 13:03 | Outpatient (CLI) | payer MEDICARE, SELFPAY ==
[2017-12-17 13:40] VITALS: BMI 30.5
--- NOTE | 2018-01-21 13:07 | PCM.CR.HP2 ---
CR - History & Physical - General Arrival date:: 01/21/18 Arrival time:: 13:08 Date of Referral:: 01/08/18 Date of CR Evaluation:: 01/21/18 Referring Physician: Dr. 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8 mg-10 mg-325 mg effervs tab cholecalciferol (vitamin D3) 5,000 5,000 unit PO QDAY 10/23/17 unit capsule guaifenesin 400 mg tablet 400 mg PO Q4H PRN 10/23/17 loratadine 10 mg tablet 10 mg PO QDAY 10/23/17 magnesium 250 mg tablet 250 mg PO QDAY 10/23/17 omeprazole 20 mg capsule,delayed 20 mg PO QDAY PRN 10/23/17 release pyridoxine (vitamin B6) 100 mg 100 mg PO QDAY 10/23/17 tablet vitamins-lipotropics tablet 1 tab PO QDAY 10/23/17 propranolol ER 60 mg capsule,24 60 mg PO QDAY #30 cap 12/18/17 hr,extended release atorvastatin 20 mg tablet 20 mg PO QDAY #30 tab 01/09/18 clopidogrel 75 mg tablet 75 mg PO QDAY #30 tab 01/09/18 Enalapril Maleate [Vasotec] 1.25 mg PO QDAY 01/21/18 - Allergies Allergies/Adverse Reactions: Allergies risedronate sodium [From Actonel] Allergy (Verified 01/07/18 08:11) Other fish oil Adverse Reaction (Verified 01/07/18 08:11) skin erruptions propoxyphene HCl [From Darvon] Adverse Reaction (Verified 01/07/18 08:11) Nausea/Vom/Diarrhea SEASONAL Allergy (Uncoded 01/07/18 08:11) Other STRAWBERRIES Allergy (Uncoded 01/07/18 08:11) Hives ONION Adverse Reaction (Uncoded 01/07/18 08:11) Vomiting statin Adverse Reaction (Uncoded 01/07/18 08:11) abdominal pain - Sleep Disorder Evaluation Hx of Sleep Apnea: No Do you snore loudly (louder than talking or can be heard through closed doors)?: Yes - yes, grandson c/o grandma snoring. Do you often feel tired/ fatigued/ sleepy during daytime?: Yes - sometimes Has anyone observed you stop breathing during sleep?: No History of Hypertension (for STOP score): Yes STOP Results: Positive Advanced Directives - Advanced Directives Power of Utilities Operator: No Living Will: No Advance Directives Information Provided: Yes Advance Directives on File: No DNR Order?:: No - MOLST See MOLST form: No Past Medical History - Past Medical Illness Medical History: Past Medical History (Last Updated 12/17/17 @ 16:36 by Ev Reid) History of coronary artery stent placement (Acute) Onset Date: 12/17/17 Z95.5 [id number]-HGU-[id number] Cx w/ 2.5 x 16 mm Synergy MR DAVID 12/17/17 Atherosclerosis of coronary artery of [place] heart without angina pectoris (Acute) I25.10 URM-SPM-Agnt Cx w/ 2.5 x 16 mm Synergy MR DAVID 12/17/17 Secondary pulmonary arterial hypertension (Acute) I27.21 Hyperlipidemia (Chronic) E78.5 Hypertension (Chronic) I10 Anxiety F41.9 Asbestos exposure Z77.090 Benign paroxysmal positional vertigo H81.10 IBS (irritable bowel syndrome) K58.9 - Past Surgical History Surgical History: Past Surgical History (Last Updated 10/23/17 @ 14:31 by Ev Reid) H/O eye surgery Z98.890 H/O tubal ligation Z98.51 History of back surgery Z98.890 L4-L5 History of tonsillectomy Z90.89 - Family History Summary Family History: Family History (Last Updated 10/23/17 @ 14:29 by Ev Reid) Mother CVA (cerebral vascular accident) Myocardial infarction, Onset Age: 93 Father Myocardial infarction [place] age 60 CAD (coronary artery disease) CABG x 3 Social History - Smoking History Smoking Status: Former smoker Years Smokin Packs Smoked per Day: 0.5 Hx Smoking Cessation Date: 06/23/2007 Hx Tobacco Use: Yes Hx Smoking Exposure: No - Alcohol Use Alcohol Usage: Yes - occasionally - Substance Abuse Hx Substance Use: No - Occupation Occupation (List type of work in comments):: Retired - Hobbies, Recreation, Social Activities Hobbies: Other - golfing, sew, knit, mirza, exercise 3 x week, going out with friends, movies. Recreational Activities: I am able to engage in all my recreational activities Social Environment - Status Marital Status: - Current Living Arrangements Living Environment:: Alone - Children How many children do you have?: 1 - 1 grandchild Do any of your children live nearby?: Yes - Safety Do you feel safe in your surroundings?: Yes - Assistance Do you need any assistance at home?: no Review of Systems - Review of Systems Hints: Right click = Denies (Slash). Left click = Reports ([place]) Review of Present Symptoms: Reports: Dizziness/Lightheadedness - occasionally; very rare but does experience., Fatigue, Sleep - Normal. Denies: Shortness of Breath at Rest, Shortness of Breath with Exertion, Heart Arrhythmia/Irregularities, Appetite - Normal - eating less actually, not eating quite as much as before., Appetite - Special Diet - Pain Is Patient Pain Free?: Yes Pain Location: none Pain Level: 0/10 Risk Factor Assessment - Chief Complaint Chief Complaint: Patient is a very pleasent [address] Hank Brunner who presents to cardiac rehab today following recent heart cath adn stent placement procedure. Patient stated she had been experiencing shortness of breath adn a lump in her throat when walking up inclines etc. After investigative coronary work up a stent was placed on 01/07/2018. - Vital Signs Temperature: 98.7 F Respiratory Rate: 16 Pulse Ox: 96 Blood Pressure: 155/60 - office Nailbeds:: pink - Pulse Pulse Rate: 66 Pulse Rhythm: Regular - Hypertension Blood Pressure Sitting - Left Arm: 128/80 - Stress Stress: Home/Family - very sick daughter; medications make me cry, etc. just a lot of things going on. - Diabetes Nutrition Referral for Diabetes: No - Obesity Height: 5 ft 1 in Weight:: 156 lb Weight in Pounds: 156.0 lbs Weight Source: Standing Scale Body Mass Index (BMI): 29.5 Nutritional Referral for Obesity: No - Physical Inactivity Physical Inactivity: Reg Exercise 30 min/day - 3 days per week and golf on . Winter time work out 4 days per week. - Risk Stratification Risk Guidelines: Lowest Risk: Risk Factor for Smoking, Risk Factor for Dyslipidemia, Risk Factor for Sedentary Lifestyle, Risk Factor for Depression, Moderate Risk: Risk Factor for Diabetes - last HbA1c was 6.1, Risk Factor for Hypertension, Highest Risk: Risk Factor for Obesity - For Smoking Smoking Risk Guidelines: Smoking Low Risk: None or quit greater than 6 months ago. Smoking Moderate Risk: Smoker or quit 6 months or less ago. Smoking High Risk: Smoker - For Dyslipidemia Dyslipidemia Risk Guidelines: Low Risk: Moderate Risk: High Risk: 15-25% fat 25.1-29% fat >/= 30% fat. <7% sat fat 7-9% sat fat >9% sat fat. <150 mg chol 150-299 mg chol >/= 300 mg chol. LDL <100 LDL 100-129 LDL >/= 130. Chol/HDL ratio <5.0 Chol/HDL ratio 5.0-6.0 Chol/HDL ratio >6.0. Triglycerides <100 Triglycerides 100-149 Triglycerides >/= 150 - For Diabetes Mellitus Diabetes Risk Guidelines: Diabetes Low Risk: HgA1c <6.5% and/or FBG <120. Diabetes Moderate Risk: HgA1c 6.6-7.9% and/or FBG 120-180. Diabetes High Risk: HgA1c >/= 8% and/or FBG >180 - For Obesity/Overweight Obesity/Overweight Risk Guidelines: Obesity Low Risk: BMI <25.0. Obesity Moderate Risk: BMI 25-29.9. Obesity High Risk: BMI >/= 30.0 - For Hypertension Hypertension Risk Guidelines: Hypertension Low Risk: Systolic <120 and Diastolic <80. Hypertension Moderate Risk: Systolic 120-139 and Diastolic 80-89. Hypertension High Risk: Systolic >/= 140 and Diastolic >/= 90 - For Sedentary Lifestyle Sedentary Lifestyle Risk Guidelines: Sedentary Lifestyle Low Risk: >/= 1,500 kcal/week. Sedentary Lifestyle Moderate Risk: 700-1,499 kcal/week. Sedentary Lifestyle High Risk: < 700 kcal/week - For Depression Depression Risk Guidelines: Depression Low Risk: Not clinically depressed. Depression Moderate Risk: Mildly depressed. Depression High Risk: Clinically depressed - Family History Family History: Family History (Last Updated 10/23/17 @ 14:29 by Ev Reid) Mother CVA (cerebral vascular accident) Myocardial infarction, Onset Age: 93 Father Myocardial infarction CAD (coronary artery disease) Motivation - Motivation to Participate On a scale of 1 to 10, how prepared are you to commit to attending program?: 8 What do you see as barriers to successfully being able to complete the program?: co-payments and insurance coverage. What do you see as the benefits of succesfully completing the program? In other words, what do you hope to get out of participating in the program?: getting into better shape, maybe losing some weight. Are there issues you are dealing with that will interfere with completing the program?: no Do you have a spouse or signficant other, family or friends who will help support you to complete the program?: yes
--- NOTE | 2018-01-21 13:11 | CR.HP_ITS ---
CR - History & Physical - General Arrival date:: 01/21/18 Arrival time:: 13:08 Date of Referral:: 01/08/18 Date of CR Evaluation:: 01/21/18 Referring Physician: Dr. Hank Brunner Primary Diagnosis: PCI w/status post coronary stent placement - History of Present Cardiac Event Onset Date: Enter Onset Date of cardiac illnesses in Comment field below PTCA or coronary stenting:: Yes - 01/07/2018 Type of Symptoms:: Chest pain discomfort, abnormal stress qa test lead to diagnostic heart cath subsequently stent placement Interventions with present event:: Stress test, diagnostic heart cath, PCI w/ stent Were there any complications?: none - Medications Home Medications: Ambulatory Orders Medication Instructions Recorded Lorazepam [Ativan] 0.5 mg PO DAILY PRN PRN 10/18/16 aspirin 81 mg tablet,delayed 81 mg PO QDAY 10/22/17 release fluticasone 50 mcg/actuation nasal 1 spray INTRANASAL QDAY 10/22/17 spray,suspension calcium carbonate 500 mg calcium 1,000 mg PO QDAY tab 10/23/17 (1,250 mg) tablet otxhvtpgqjjgfgxc-kepducxow-YE-ASA 1 tab PO DAILY 10/23/17 2 mg-7.8 mg-10 mg-325 mg effervs tab cholecalciferol (vitamin D3) 5,000 5,000 unit PO QDAY 10/23/17 unit capsule guaifenesin 400 mg tablet 400 mg PO Q4H PRN 10/23/17 loratadine 10 mg tablet 10 mg PO QDAY 10/23/17 magnesium 250 mg tablet 250 mg PO QDAY 10/23/17 omeprazole 20 mg capsule,delayed 20 mg PO QDAY PRN 10/23/17 release pyridoxine (vitamin B6) 100 mg 100 mg PO QDAY 10/23/17 tablet vitamins-lipotropics tablet 1 tab PO QDAY 10/23/17 propranolol ER 60 mg capsule,24 60 mg PO QDAY #30 cap 12/18/17 hr,extended release atorvastatin 20 mg tablet 20 mg PO QDAY #30 tab 01/09/18 clopidogrel 75 mg tablet 75 mg PO QDAY #30 tab 01/09/18 Enalapril Maleate [Vasotec] 1.25 mg PO QDAY 01/21/18 - Allergies Allergies/Adverse Reactions: Allergies risedronate sodium [From Actonel] Allergy (Verified 01/07/18 08:11) Other fish oil Adverse Reaction (Verified 01/07/18 08:11) skin erruptions propoxyphene HCl [From Darvon] Adverse Reaction (Verified 01/07/18 08:11) Nausea/Vom/Diarrhea SEASONAL Allergy (Uncoded 01/07/18 08:11) Other STRAWBERRIES Allergy (Uncoded 01/07/18 08:11) Hives ONION Adverse Reaction (Uncoded 01/07/18 08:11) Vomiting statin Adverse Reaction (Uncoded 01/07/18 08:11) abdominal pain - Sleep Disorder Evaluation Hx of Sleep Apnea: No Do you snore loudly (louder than talking or can be heard through closed doors)? : Yes - yes, grandson c/o grandma snoring. Do you often feel tired/ fatigued/ sleepy during daytime?: Yes - sometimes Has anyone observed you stop breathing during sleep?: No History of Hypertension (for STOP score): Yes STOP Results: Positive Advanced Directives - Advanced Directives Power of Merchant Police: No Living Will: No Advance Directives Information Provided: Yes Advance Directives on File: No DNR Order?:: No - MOLST See MOLST form: No Past Medical History - Past Medical Illness Medical History: Past Medical History (Last Updated 12/17/17 @ 16:36 by Ev Reid) History of coronary artery stent placement (Acute) Onset Date: 12/17/17 Z95.5 [id number]-[id number] Cx w/ 2.5 x 16 mm Synergy MR DAVID 12/17/17 Atherosclerosis of coronary artery of [place] heart without angina pectoris ( Acute) I25.10 TIV-JYT-Pqtk Cx w/ 2.5 x 16 mm Synergy MR DAVID 12/17/17 Secondary pulmonary arterial hypertension (Acute) I27.21 Hyperlipidemia (Chronic) E78.5 Hypertension (Chronic) I10 Anxiety F41.9 Asbestos exposure Z77.090 Benign paroxysmal positional vertigo H81.10 IBS (irritable bowel syndrome) K58.9 - Past Surgical History Surgical History: Past Surgical History (Last Updated 10/23/17 @ 14:31 by Ev Reid) H/O eye surgery Z98.890 H/O tubal ligation Z98.51 History of back surgery Z98.890 L4-L5 History of tonsillectomy Z90.89 - Family History Summary Family History: Family History (Last Updated 10/23/17 @ 14:29 by Ev Reid) Mother CVA (cerebral vascular accident) Myocardial infarction, Onset Age: 93 Father Myocardial infarction [place] age 60 CAD (coronary artery disease) CABG x 3 Social History - Smoking History Smoking Status: Former smoker Years Smokin Packs Smoked per Day: 0.5 Hx Smoking Cessation Date: 06/23/2007 Hx Tobacco Use: Yes Hx Smoking Exposure: No - Alcohol Use Alcohol Usage: Yes - occasionally - Substance Abuse Hx Substance Use: No - Occupation Occupation (List type of work in comments):: Retired - Hobbies, Recreation, Social Activities Hobbies: Other - golfing, sew, knit, mirza, exercise 3 x week, going out with friends, movies. Recreational Activities: I am able to engage in all my recreational activities Social Environment - Status Marital Status: - Current Living Arrangements Living Environment:: Alone - Children How many children do you have?: 1 - 1 grandchild Do any of your children live nearby?: Yes - Safety Do you feel safe in your surroundings?: Yes - Assistance Do you need any assistance at home?: no Review of Systems - Review of Systems Hints: Right click = Denies (Slash). Left click = Reports ([place]) Review of Present Symptoms: Reports: Dizziness/Lightheadedness - occasionally; very rare but does experience., Fatigue, Sleep - Normal. Denies: Shortness of Breath at Rest, Shortness of Breath with Exertion, Heart Arrhythmia/ Irregularities, Appetite - Normal - eating less actually, not eating quite as much as before., Appetite - Special Diet - Pain Is Patient Pain Free?: Yes Pain Location: none Pain Level: 0/10 Risk Factor Assessment - Chief Complaint Chief Complaint: Patient is a very pleasent [address] Hank Brunner who presents to cardiac rehab today following recent heart cath adn stent placement procedure. Patient stated she had been experiencing shortness of breath adn a lump in her throat when walking up inclines etc. After investigative coronary work up a stent was placed on 01/07/2018. - Vital Signs Temperature: 98.7 F Respiratory Rate: 16 Pulse Ox: 96 Blood Pressure: 155/60 - office Nailbeds:: pink - Pulse Pulse Rate: 66 Pulse Rhythm: Regular - Hypertension Blood Pressure Sitting - Left Arm: 128/80 - Stress Stress: Home/Family - very sick daughter; medications make me cry, etc. just a lot of things going on. - Diabetes Nutrition Referral for Diabetes: No - Obesity Height: 5 ft 1 in Weight:: 156 lb Weight in Pounds: 156.0 lbs Weight Source: Standing Scale Body Mass Index (BMI): 29.5 Nutritional Referral for Obesity: No - Physical Inactivity Physical Inactivity: Reg Exercise 30 min/day - 3 days per week and golf on . Winter time work out 4 days per week. - Risk Stratification Risk Guidelines: Lowest Risk: Risk Factor for Smoking, Risk Factor for Dyslipidemia, Risk Factor for Sedentary Lifestyle, Risk Factor for Depression, Moderate Risk: Risk Factor for Diabetes - last HbA1c was 6.1, Risk Factor for Hypertension, Highest Risk: Risk Factor for Obesity - For Smoking Smoking Risk Guidelines: Smoking Low Risk: None or quit greater than 6 months ago. Smoking Moderate Risk: Smoker or quit 6 months or less ago. Smoking High Risk: Smoker - For Dyslipidemia Dyslipidemia Risk Guidelines: Low Risk: Moderate Risk: High Risk: 15-25% fat 25.1-29% fat >/= 30% fat. <7% sat fat 7-9% sat fat >9% sat fat. <150 mg chol 150-299 mg chol >/= 300 mg chol. LDL <100 LDL 100-129 LDL >/= 130. Chol/HDL ratio <5.0 Chol/HDL ratio 5.0-6.0 Chol/HDL ratio >6.0. Triglycerides <100 Triglycerides 100-149 Triglycerides >/= 150 - For Diabetes Mellitus Diabetes Risk Guidelines: Diabetes Low Risk: HgA1c <6.5% and/or FBG <120. Diabetes Moderate Risk: HgA1c 6.6-7.9% and/or FBG 120-180. Diabetes High Risk: HgA1c >/= 8% and/or FBG >180 - For Obesity/Overweight Obesity/Overweight Risk Guidelines: Obesity Low Risk: BMI <25.0. Obesity Moderate Risk: BMI 25-29.9. Obesity High Risk: BMI >/= 30.0 - For Hypertension Hypertension Risk Guidelines: Hypertension Low Risk: Systolic <120 and Diastolic <80. Hypertension Moderate Risk: Systolic 120-139 and Diastolic 80-89. Hypertension High Risk: Systolic >/= 140 and Diastolic >/= 90 - For Sedentary Lifestyle Sedentary Lifestyle Risk Guidelines: Sedentary Lifestyle Low Risk: >/= 1 ,500 kcal/week. Sedentary Lifestyle Moderate Risk: 700-1,499 kcal/week. Sedentary Lifestyle High Risk: < 700 kcal/week - For Depression Depression Risk Guidelines: Depression Low Risk: Not clinically depressed. Depression Moderate Risk: Mildly depressed. Depression High Risk: Clinically depressed - Family History Family History: Family History (Last Updated 10/23/17 @ 14:29 by Ev Reid) Mother CVA (cerebral vascular accident) Myocardial infarction, Onset Age: 93 Father Myocardial infarction CAD (coronary artery disease) Motivation - Motivation to Participate On a scale of 1 to 10, how prepared are you to commit to attending program?: 8 What do you see as barriers to successfully being able to complete the program? : co-payments and insurance coverage. What do you see as the benefits of succesfully completing the program? In other words, what do you hope to get out of participating in the program?: getting into better shape, maybe losing some weight. Are there issues you are dealing with that will interfere with completing the program?: no Do you have a spouse or signficant other, family or friends who will help support you to complete the program?: yes
[2018-01-21 13:31] VITALS: BP 128/80; BP 155/60; PULSE 66; RESP 16; TEMP 37.1; O2SAT 96; BMI 29.5
--- NOTE | 2018-01-21 13:33 | CR.ITP_ITS ---
General Information - General Information Admitting Diagnosis: PCI w/coronary stent placement. - Education/Goals Barriers to Learning: None Individual Counseling: Initial Assessment: Abnormal Cholesterol Levels, High Blood Pressure, Overweight/Obesity Cardiac Rehabilitation Goals: 1. Maintain the individual as the primary focus of care. 2. To improve the patient's quality of life. 3. Identification of cardiac risk factors and provide cardiac risk factor management. 4. Enhance the psychosocial status of the patient. 5. Reconditioning enough to allow the patient to resume customary activities. 6. Control symptoms of cardiac disease Scale for measuring improvement of personal goals: Enter appropriate number in Comments. 2 = Unchanged. 3 = Slightly Better. 4 = Moderate Improvement. 5 = Met my Goal Exercise - Initial Assessment - Visit Date of Eval: 01/21/18 - Established ITp today; scheduled to start #:: 0 - Stages of Change Stages of Change:: Contemplate - Exercise Prescription Mode:: Treadmill, Rower, Airdyne, NuStep Angina with exercise?: No Target Heart Rate:: 110-118 - Hypertension Do any of the following apply?: Yes, Medication Resting Blood Pressure:: 128/68 - office was 155/70 - Intervention Home Exercise/Activity Goal:: Moderate Exercise 30 min/day x 5 days/wk - Education Goals:: Warm-up, RPE ANTIONE Scale, S/S, Safe Exercise, Self-Monitoring - Exercise Program Goals Exercise Program Goals: Aerobic Activity >30 min Nutrition - Initial Assessment - Program Goals Nutrition Program Goals: LDL <70. Total Cholesterol <200. HDL >45. Triglycerides <150. HgbA1C <7%. BMI <25 - Visit Date of Assessment:: 01/21/18 - Stages of Change Stages of Change:: Action - Diabetes Diabetes:: No Hgb A1C: 6.1 Insulin: No Non-Insulin Dependent?: No Do you monitor your blood sugar at home?: No - Weight Management Height: 5 ft 1 in Weight:: 156 lb Body Fat %:: 29 - Intervention Referral to dietitian:: No Referral to Diabetic Clinic:: No Will attend diet classes:: Yes - Education Gave educational materials for:: Healthy eating Tobacco - Initial Assessment - Program Goals Tobacco Program Goals: Complete smoking cessation. Attend education classes. Improve Knowledge Test score - Stage of Change Stages of Change:: Action - Learning Barriers Learning Barriers: Ready to Learn - Family Support Do you have family support?: Yes - Tobacco Use Tobacco Use: Non-smoker How long ago did you quit using tobacco products?: Greater than or equal to 6 months ago Years Smokin - Quit smoking in 2007 Do you use smokeless tobacco?: No - Intervention Smoking Cessation Referral:: No Individual Education/Counseling:: No Education Schedule Given:: Yes - Education Gave educational material for:: Coronary artery disease, Risk factors, Sexuality , Medical compliance, Cardiac A&P, Angina signs & symptoms Psychosocial - Initial Assess - Target Goals Target Goals: Assess presence or absence of depression. Using a valid screening tool, maximizes coping skills. Positive support system - Stages of Change Stages of Change:: Action - Psychosocial Test Tool Used:: HANDS Depression Questionnaire - Intervention PS - Interventions: Yes Attend Stress Management Classes, No Referral to Mental Health, No Referral to [facility] Case Management, No Referral to Physician, No Uses Stress Management Skills - Education Gave educational materials for:: Coping techniques, Signs & symptoms of depression, Stress management, Relaxation techniques - Patient/Program Goal Preventative Medication(s):: Aspirin, Clopidogrel, Beta lidia, Statin/lipid - Assistive Devices Assistive Devices:: None Fall Risk Assessed:: Yes Patient Health Questionnaire Initial Assessment 1. Little interest or pleasure in doing things: Not at all 2. Feeling down, depressed, or hopeless: Several days 3. Trouble falling or staying asleep, or sleeping too much: Not at all 4. Feeling tired or having little energy: Not at all 5. Poor appetite or overeating: Not at all 6. Feeling bad about yourself -- or that you are a failure or have let yourself or your family down: Several days 7. Trouble concentrating on things, such as reading the newspaper or watching television: Not at all 8. Moving or speaking so slowly that other people could have noticed. Or the opposite - being so fidgety or restless that you have been moving around a lot more than usual: Not at all 9. Thoughts that you would be better off , or of hurting yourself in some way: Not at all How difficult have these problems made it for you to do your work, take care of things at home, or get along with other people?: Not difficult at all Total Score: 2 OBED-Q SV Test - Statements CAD is a disease of the arteries in the heart: False Examples of risk factors for heart disease: True Angina is chest pain or discomfort: I Don't Know The benefits of resistance training include: True Eating more meat and dairy products: False Anti-platelet medications such as aspirin are important: True The only effective way to manage stress: False An exercise warm-up slowly increases heart rate: False Prepared, processed foods usually have high sodium: True Depression is common after a heart attack: I Don't Know The statin medications lower cholesterol: True To control blood pressure, lower the amount of sodium: True If someone gets chest discomfort during walking: False Transfats are partially hydrogenated vegetable oils: True Sleep apnea that is not treated increases the risk: False To control cholesterol, one should become a vegetarian: False Someone knows if he/she is exercising at the right level: I Don't Know Diabetes cannot be prevented with exercise & health eating: False Stress is a large risk for heart attack: True A diet that can help lower blood pressure is rich in: False - Total Score Total Correct Responses: 15 Self-Efficacy Initial Assessment We would like to know how confident you are in doing certain activities. Please select your confidence level for:: Select your confidence level for the following using the scale 1-10 where 1 is not at all confident and 10 is totally confident. Your score is the average of all 6 responses. Fatigue: How confident are you that you can keep the fatigue caused by your disease from interfering with the things you want to do? Select Number: 10 Physical Discomfort or Pain: How confident are you that you can keep the physical discomfort or pain of your disease from interfering with the things you want to do? Select Number: 10 Emotional Distress: How confident are you that you can keep the emotional distress caused by your disease from interfering with the things you want to do? Select Number: 9 Other Symptoms or Health Problems: How confident are you that you can keep other symptoms or health problems from interfering with the things you want to do? Select Number: 10 Different Tasks and Activities: How confident are you that you can do the different tasks and activities needed to manage your health condition so as to reduce your need to see a doctor? Select Number: 10 Medication: How confident are you that you can do things other than just taking medication to reduce how much your illness affects your everyday life? Select Number: 10 Total Score:: 9 Nutrition Survey - Nutrition Survey Instructions Scoring Instructions: Scoring is as follows: Yes = 1 points. No = 0 point. Patient score that is >/=12 is considered to be at potential nutritional risk and could benefit from a referral to a registered dietitian. - Nutrition Survey Initial Have you lost >10 lbs over the past 2 months without trying?: No Are you following a special diet at home for diabetes, low fat, or low salt?: No Are you interested in meeting with a dietitian for help understanding your diet? : No Do you eat less than 3 meals a day?: No Do you eat fatty meats (valencia, sausage, ribs, etc), fried foods, desserts, large amounts of salad dressings, margarine, butter, or cheese most days?: No Do you have food allergies? [Enter types in comment field]: Yes Do you eat in restaurants more than 3 times a week?: Yes Do you season food with salt, seasoning salt, or garlic salt?: No Do you used canned, boxed, frozen meals, or soups, seasoning packets?: Yes Total Score:: 3
[2018-01-21 14:37] VITALS: BP 128/68
== END ==
PROVIDERS: Family Provider Internal Medicine; PCP Internal Medicine; Visit Provider Internal Medicine Cardiovascular Disease
DX: Z95.5 Presence of coronary angioplasty implant and graft (principal)

== ENCOUNTER 2018-02-20 10:15 | Outpatient (RCR) | payer MEDICARE, SELFPAY ==
[2017-12-17 13:40] VITALS: BMI 30.5
--- NOTE | 2018-02-13 11:17 | PCM.CR.ITP ---
General Information - General Information Admitting Diagnosis: PCI w/coronary artery stenting - Education/Goals Cardiac Rehabilitation Goals: 1. Maintain the individual as the primary focus of care. 2. To improve the patient's quality of life. 3. Identification of cardiac risk factors and provide cardiac risk factor management. 4. Enhance the psychosocial status of the patient. 5. Reconditioning enough to allow the patient to resume customary activities. 6. Control symptoms of cardiac disease Scale for measuring improvement of personal goals: Enter appropriate number in Comments. 2 = Unchanged. 3 = Slightly Better. 4 = Moderate Improvement. 5 = Met my Goal Exercise - 30-day Assessment - Visit Date of Eval: 02/13/18 Session #:: 9 - Stages of Change Stages of Change:: Action - Exercise Prescription Mode:: Treadmill, Airdyne, NuStep Frequency (x/week): 3 Duration:: 30 METs - Progression: 0.5-1 MET as tolerated: 3.8 Target Heart Rate:: 110-118 Max HR 111 - Hypertension Resting Blood Pressure:: 126/68 Peak Exercise Blood Pressure:: 176/80 - Intervention Home Exercise/Activity Goal:: Sitting Time <3 hrs/day - Education Goals:: Warm-up, RPE ANTIONE Scale, S/S, Safe Exercise, Self-Monitoring - Exercise Program Goals Exercise Program Goals: Aerobic Activity >30 min, B/P <130/80 Nutrition - Initial Assessment - Program Goals Nutrition Program Goals: LDL <70. Total Cholesterol <200. HDL >45. Triglycerides <150. HgbA1C <7%. BMI <25 - Diabetes Do you monitor your blood sugar at home?: No Nutrition - 30-Day Assessment - Program Goals Nutrition Program Goals: LDL <70. Total Cholesterol <200. HDL >45. Triglycerides <150. HgbA1C <7%. BMI <25 - Visit Date of Eval: 02/13/18 - Stages of Change Stages of Change:: Action - Weight Management Weight:: 71.214 kg - Intervention Referral to dietitian:: No Referral to Diabetic Clinic:: No Will attend diet classes:: Yes - Education Attended class for:: Signs & symptoms of hypoglycemia, Signs & symptoms of hyperglycemia, Relate diabetes to coronary artery disease, Healthy eating Tobacco - Initial Assessment - Program Goals Tobacco Program Goals: Complete smoking cessation. Attend education classes. Improve Knowledge Test score - Learning Barriers Learning Barriers: Ready to Learn Tobacco - 30-Day Assessment - Program Goals Tobacco Program Goals: Complete smoking cessation. Attend education classes. Improve Knowledge Test score - Stage of Change Stages of Change:: Action - Learning Barriers Learning Barriers: Participates in education - Family Support Do you have family support?: Yes - Tobacco Use Tobacco Use: Non-smoker Do you use smokeless tobacco?: No - Intervention Smoking Cessation Referral:: No Individual Education/Counseling:: No Education Schedule Given:: Yes - Education Attended class for:: Tobacco triggers, Coronary artery disease, Risk factors, Sexuality, Medical compliance, Cardiac A&P, Angina signs & symptoms Psychosocial - Initial Assess - Target Goals Target Goals: Assess presence or absence of depression. Using a valid screening tool, maximizes coping skills. Positive support system - Psychosocial Test Tool Used:: HANDS Depression Questionnaire - Assistive Devices Fall Risk Assessed:: Yes Psychosocial - 30-Day Assess - Target Goals Target Goals: Assess presence or absence of depression. Using a valid screening tool, maximizes coping skills. Positive support system - Stages of Change Stages of Change:: Action - Psychosocial Test Tool Used:: HANDS Depression Questionnaire - Intervention PS - Interventions: Yes Attend Stress Management Classes, Yes Uses Stress Management Skills, No Referral to Mental Health, No Referral to [facility] Case Management, No Referral to Physician - Education Attended classes for:: Coping techniques, Signs & symptoms of depression, Stress management, Relaxation techniques - Assistive Devices Assistive Devices:: None Fall Risk Assessed:: Yes Patient Health Questionnaire 30-Day Re-eval Assessment 1. Little interest or pleasure in doing things: Not at all 2. Feeling down, depressed, or hopeless: Several days 3. Trouble falling or staying asleep, or sleeping too much: Not at all 4. Feeling tired or having little energy: Not at all 5. Poor appetite or overeating: Not at all 6. Feeling bad about yourself -- or that you are a failure or have let yourself or your family down: Several days 7. Trouble concentrating on things, such as reading the newspaper or watching television: Not at all 8. Moving or speaking so slowly that other people could have noticed. Or the opposite - being so fidgety or restless that you have been moving around a lot more than usual: Not at all 9. Thoughts that you would be better off , or of hurting yourself in some way: Not at all How difficult have these problems made it for you to do your work, take care of things at home, or get along with other people?: Not difficult at all Total Score: 2 Self-Efficacy 30-Day Re-eval Assessment We would like to know how confident you are in doing certain activities. Please select your confidence level for:: Select your confidence level for the following using the scale 1-10 where 1 is not at all confident and 10 is totally confident. Your score is the average of all 6 responses. Fatigue: How confident are you that you can keep the fatigue caused by your disease from interfering with the things you want to do? Select Number: 10 Physical Discomfort or Pain: How confident are you that you can keep the physical discomfort or pain of your disease from interfering with the things you want to do? Select Number: 10 Emotional Distress: How confident are you that you can keep the emotional distress caused by your disease from interfering with the things you want to do? Select Number: 9 Other Symptoms or Health Problems: How confident are you that you can keep other symptoms or health problems from interfering with the things you want to do? Select Number: 10 Different Tasks and Activities: How confident are you that you can do the different tasks and activities needed to manage your health condition so as to reduce your need to see a doctor? Select Number: 10 Medication: How confident are you that you can do things other than just taking medication to reduce how much your illness affects your everyday life? Select Number: 10 Total Score:: 9
[2018-02-13 11:24] VITALS: BP 126/68; BP 176/80
== END 2018-02-20 23:59 ==
LOC: CR 10:15
PROVIDERS: Family Provider Internal Medicine; PCP Internal Medicine; Visit Provider Internal Medicine Cardiovascular Disease
DX: I25.10 Atherosclerotic heart disease of native coronary artery without angina pectoris (principal); I27.21 Secondary pulmonary arterial hypertension; Z95.5 Presence of coronary angioplasty implant and graft
CPT/HCPCS: 93798

== ENCOUNTER 2018-03-18 10:15 | Outpatient (RCR) | payer MEDICARE, SELFPAY ==
[2017-12-17 13:40] VITALS: BMI 30.5
[2018-02-21 01:37] VITALS: BP 126/68; BP 176/80
--- NOTE | 2018-03-18 11:10 | PCM.CR.ITP ---
General Information - General Information Admitting Diagnosis: PCI S/P coronary artery stenting - Education/Goals Cardiac Rehabilitation Goals: 1. Maintain the individual as the primary focus of care. 2. To improve the patient's quality of life. 3. Identification of cardiac risk factors and provide cardiac risk factor management. 4. Enhance the psychosocial status of the patient. 5. Reconditioning enough to allow the patient to resume customary activities. 6. Control symptoms of cardiac disease Scale for measuring improvement of personal goals: Enter appropriate number in Comments. 2 = Unchanged. 3 = Slightly Better. 4 = Moderate Improvement. 5 = Met my Goal Exercise - 60-Day Assessment - Visit Date of Eval: 03/18/18 Session #:: 19 - Stages of Change Stages of Change:: Action - Exercise Prescription Mode:: Treadmill, Rower, NuStep Frequency (x/week): 3 Duration:: 30 METs: 5.9 Target Heart Rate:: 118-127 Max HR 111 - Hypertension Resting Blood Pressure:: 120/64 Peak Exercise Blood Pressure:: 164/80 - Intervention Home Exercise/Activity Goal:: Sitting Time <3 hrs/day - Education Goals:: Warm-up, RPE ANTIONE Scale, S/S, Safe Exercise, Self-Monitoring - Exercise Program Goals Exercise Program Goals: Aerobic Activity >30 min, B/P <130/80 Nutrition - Initial Assessment - Program Goals Nutrition Program Goals: LDL <70. Total Cholesterol <200. HDL >45. Triglycerides <150. HgbA1C <7%. BMI <25 - Diabetes Do you monitor your blood sugar at home?: No Nutrition - 60-Day Assessment - Program Goals Nutrition Program Goals: LDL <70. Total Cholesterol <200. HDL >45. Triglycerides <150. HgbA1C <7%. BMI <25 - Visit Date of Eval: 03/18/18 - Stages of Change Stages of Change:: Action - Diabetes Diabetes:: No - Weight Management Weight:: 71.668 kg - Intervention Referral to dietitian:: No Referral to Diabetic Clinic:: No Will attend diet classes:: Yes - Education Attended class for:: Signs & symptoms of hypoglycemia, Signs & symptoms of hyperglycemia, Relate diabetes to coronary artery disease, Healthy eating Tobacco - Initial Assessment - Program Goals Tobacco Program Goals: Complete smoking cessation. Attend education classes. Improve Knowledge Test score - Learning Barriers Learning Barriers: Ready to Learn Tobacco - 60-Day Assessment - Program Goals Tobacco Program Goals: Complete smoking cessation. Attend education classes. Improve Knowledge Test score - Stage of Change Stages of Change:: Action - Learning Barriers Learning Barriers: Participates in education - Family Support Do you have family support?: Yes - Tobacco Use Tobacco Use: Non-smoker Do you use smokeless tobacco?: No - Intervention Smoking Cessation Referral:: No Individual Education/Counseling:: No Education Schedule Given:: Yes - Education Attended class for:: Tobacco triggers, Coronary artery disease, Risk factors, Sexuality, Medical compliance, Cardiac A&P, Angina signs & symptoms Psychosocial - Initial Assess - Target Goals Target Goals: Assess presence or absence of depression. Using a valid screening tool, maximizes coping skills. Positive support system - Psychosocial Test Tool Used:: HANDS Depression Questionnaire - Assistive Devices Fall Risk Assessed:: Yes Psychosocial - 60-Day Assess - Target Goals Target Goals: Assess presence or absence of depression. Using a valid screening tool, maximizes coping skills. Positive support system - Stages of Change Stages of Change:: Action - Psychosocial Test Tool Used:: HANDS Depression Questionnaire - Intervention PS - Interventions: Yes Attend Stress Management Classes, Yes Uses Stress Management Skills, No Referral to Mental Health, No Referral to [facility] Case Management, No Referral to Physician - Education Attended classes for:: Coping techniques, Signs & symptoms of depression, Stress management, Relaxation techniques - Assistive Devices Assistive Devices:: None Fall Risk Assessed:: Yes Patient Health Questionnaire 60-Day Re-eval Assessment 1. Little interest or pleasure in doing things: Not at all 2. Feeling down, depressed, or hopeless: Not at all 3. Trouble falling or staying asleep, or sleeping too much: Not at all 4. Feeling tired or having little energy: Not at all 5. Poor appetite or overeating: Not at all 6. Feeling bad about yourself -- or that you are a failure or have let yourself or your family down: Not at all 7. Trouble concentrating on things, such as reading the newspaper or watching television: Not at all 8. Moving or speaking so slowly that other people could have noticed. Or the opposite - being so fidgety or restless that you have been moving around a lot more than usual: Not at all 9. Thoughts that you would be better off , or of hurting yourself in some way: Not at all How difficult have these problems made it for you to do your work, take care of things at home, or get along with other people?: Not difficult at all Total Score: 0 Self-Efficacy 60-Day Re-eval Assessment We would like to know how confident you are in doing certain activities. Please select your confidence level for:: Select your confidence level for the following using the scale 1-10 where 1 is not at all confident and 10 is totally confident. Your score is the average of all 6 responses. Fatigue: How confident are you that you can keep the fatigue caused by your disease from interfering with the things you want to do? Select Number: 10 Physical Discomfort or Pain: How confident are you that you can keep the physical discomfort or pain of your disease from interfering with the things you want to do? Select Number: 10 Emotional Distress: How confident are you that you can keep the emotional distress caused by your disease from interfering with the things you want to do? Select Number: 9 Other Symptoms or Health Problems: How confident are you that you can keep other symptoms or health problems from interfering with the things you want to do? Select Number: 10 Different Tasks and Activities: How confident are you that you can do the different tasks and activities needed to manage your health condition so as to reduce your need to see a doctor? Select Number: 10 Medication: How confident are you that you can do things other than just taking medication to reduce how much your illness affects your everyday life? Select Number: 10 Total Score:: 9
[2018-03-18 11:17] VITALS: BP 120/64; BP 164/80
== END 2018-03-22 23:59 ==
LOC: CR 10:15
PROVIDERS: Family Provider Internal Medicine; PCP Internal Medicine; Visit Provider Internal Medicine Cardiovascular Disease
DX: I25.10 Atherosclerotic heart disease of native coronary artery without angina pectoris (principal); I27.21 Secondary pulmonary arterial hypertension; Z95.5 Presence of coronary angioplasty implant and graft
CPT/HCPCS: 93798

== ENCOUNTER → 2018-04-01 20:06 | Outpatient (CLI) | payer MEDICARE, SELFPAY ==
[2017-12-17 13:40] VITALS: BMI 30.5
== END ==
PROVIDERS: Family Provider Internal Medicine; PCP Internal Medicine; Visit Provider Internal Medicine
DX: G47.10 Hypersomnia, unspecified (principal)
CPT/HCPCS: 95810

== ENCOUNTER → 2019-06-30 08:43 | Outpatient (CLI) | payer MEDICARE, SELFPAY ==
[2017-12-17 13:40] VITALS: BMI 30.5
[2019-05-27 10:06] VITALS: BMI 30.2
--- NOTE | 2019-06-30 08:44 | ECHOD_ITS ---
Reason For Study: PHTN Procedure This was a 2D Doppler, Color Flow transthoracic echocardiogram. Exam performed in department. Left Ventricle Normal size and thickness. The estimated ejection fraction is 65 %. Stage 2 diastolic dysfunction. No regional wall motion abnormalities noted. Right Ventricle Normal size and thickness. Normal systolic function. Atria Normal left atrium. Normal right atrium. Normal atrial septum. Mitral Valve The mitral valve is structurally normal. No prolapse or stenosis seen. Tricuspid Valve Normal tricuspid valve. Trivial tricuspid valve insufficiency. Right ventricular systolic pressure estimated to be 23 mmHg. Aortic Valve Trisinus/trileaflet aortic valve. Moderate focal aortic valve thickening. There is no aortic stenosis. Trivial aortic valve insufficiency. Pulmonic Valve Normal pulmonic valve. Great Vessels Normal aortic root. Normal arch. Normal inferior vena cava. Inferior vena cava collapse with sniff. Pericardium/Pleural No pericardial effusion. MMode/2D Measurements & Calculations LVIDd: 4.6 cm IVSd: 0.81 cm Ao root diam: 2.4 cm LVIDs: 3.3 cm LVPWd: 1.0 cm RVDd: 2.7 cm FS: 28.8 % LAV(MOD-bp): 51.1 ml LA A4 area: 17.3 cm2 LA dimension(2D): 3.3 cm LAV(MOD-bp) Indexed: 29.7 ml/m2 LAV(MOD-sp2): 48.5 ml LAV(MOD-sp4): 50.4 ml RA A4 area: 11.1 cm2 Time Measurements MV dec time: 0.18 sec Doppler Measurements & Calculations MV E max roman: 93.0 cm/sec Lat Peak E' Roman: 4.7 cm/sec Med Peak E' Roman: 4.6 cm/sec MV A max roman: 85.7 cm/sec E/E' lat: 19.7 E/E' med: 20.3 MV E/A: 1.1 Ao V2 max: 131.9 cm/sec AI max roman: 388.1 cm/sec LV V1 max: 116.4 cm/sec Ao max P.0 mmHg AI max P.3 mmHg LV V1 max P.4 mmHg Ao V2 mean: 91.9 cm/sec AI dec slope: 220.5 cm/sec2 Ao mean P.7 mmHg AI P1/2t: 515.7 msec Ao V2 VTI: 29.0 cm PA V2 max: 87.0 cm/sec TR max roman: 212.9 cm/sec TR max P.1 mmHg Interpretation Summary The estimated ejection fraction is 65 %. Stage 2 diastolic dysfunction. Trivial tricuspid valve insufficiency. Right ventricular systolic pressure estimated to be 23 mmHg. Trivial aortic valve insufficiency. Compared to echo report dated , LV function has remained about the same, and RVSP has improved from 39 mmHg to 23 mmHg. Ordering Physician: Hank Brunner Referring Physician: Emily Sheikh Performed By: Anita Bond, REILLY, RVT
== END ==
PROVIDERS: Family Provider Internal Medicine; PCP Internal Medicine; Referring Provider Internal Medicine Cardiovascular Disease; Visit Provider Internal Medicine Cardiovascular Disease
DX: I25.10 Atherosclerotic heart disease of native coronary artery without angina pectoris (principal)
CPT/HCPCS: 93306

== ENCOUNTER → 2019-12-16 | Outpatient (CLI) | payer MEDICARE, SELFPAY ==
[2017-12-17 13:40] VITALS: BMI 30.5
[2019-05-27 10:06] VITALS: BMI 30.2
--- NOTE | 2019-12-16 10:37 | BD_ITS ---
STUDY: DUAL ENERGY X-RAY ABSORPTIOMETRY / DXA REASON FOR EXAM: Female, 74 years old. Age of torres 58. Pat is 161.9# and 60.5 and quot; a loss of 1.5 and quot; per pat. Past hx of smoking. Has taken actonel in the past. Has had steroid injections. Takes 800mg of calcium and Vit D. Exercises moderatly. Hx of L4-L5 fusion. TECHNIQUE: Bone Mineral Density (BMD) measurements of lumbar spine and bilateral hips were obtained. COMPARISON: Comparison is made with prior examination dated August 14, 2017. FINDINGS: Lumbar Spine (L1-L4): g/cm2 (0.909) / T-score (-2.1) / Z-score (-0.4) Findings are suggestive of osteopenia with a moderate fracture risk. Left Femur Total: g/cm2 (0.784) / T-score (-1.8) / Z-score (-0.1) Left Femoral Neck: g/cm2 (0.720) / T-score (-2.3) / Z-score (-0.5) Right Femur Total: g/cm2 (0.818) / T-score (-1.5) / Z-score (0.1) Right Femoral Neck: g/cm2 (0.717) / T-score (-2.3) / Z-score (-0.5) The T-Scores on the most recent prior examination were: Lumbar Spine (L1-L4): There has been worsening of bone density since the previous examination. Left Femur Total: which represents a worsening of 3.9%. Right Femur Total: which represents an improvement of 1.1%. BD/Dexa Bone Density Study IMPRESSION: The patient is considered osteopenic as outlined below according to World Benny Organization (WHO) criteria with a high fracture risk. There has been worsening of bone density since the previous examination. Reference Information: The T-score is the number of standard deviations above or below the standard which is normal for young adults at their peak bone mineral density. The World Health Organization (WHO) interprets the T-scores as follows: Above -1 Normal bone density Between -1 and -2.5 Osteopenia Equal to / or below -2.5 Osteoporosis As a practical clinical guideline, osteopenia may be graded as follows: Mild -1 through -1.5 Moderate -1.6 through -2.0 Severe -2.1 through -2.4 The Z-score is the number of standard deviations above or below age-matched controls. A Z-score of less than -1.5 would be considered abnormal. References: 1. NIH Osteoporosis and Related Bone Diseases http://www.osteo.org 2. International Society for Clinical Densitometry http://www.iscd.org 3. National Osteoporosis Foundation http://www.nof.org Electronically Signed: Arnaldo Magallon, at 12:52 EDT , Service support ,
--- NOTE | 2019-12-16 10:37 | BI_ITS ---
MAMMOGRAPHY - BILATERAL SCREENING 3-D TOMOSYNTHESIS REASON FOR EXAM: Female, 74 years old. Routine screening PERTINENT HISTORY: BILAT SCREENING - FAM HX OF MOTHER @ AGE 94 - NO PREV SURG''S - BILAT MOLES MARKED. TECHNIQUE: 2-D mammograms and 3-D Tomosynthesis of the breast (s) were performed. CAD was performed. COMPARISON: 08/14/2017 FINDINGS: The breast composition is composed of scattered fibroglandular density. Scattered benign calcifications are seen. No dense spiculated masses or suspicious microcalcifications are identified. No architectural distortion is identified. There is no skin thickening or retraction. There has been no significant change since the prior study. BI/SCREEN MAMM (CAD) W/SHERI BILAT IMPRESSION: No mammographic signs of malignancy. Routine yearly mammograms recommended. ASSESSMENT CATEGORY: BIRADS Category 2: Benign. A letter regarding these results will be sent to the patient by the facility within 30 days. FOLLOW UP RECOMMENDATION: Yearly follow up mammogram recommended. (A) Approximately 10% of breast cancers are not detected by mammography. A normal mammogram should not delay biopsy of a clinically suspicious abnormality. Electronically Signed: Spenser Chavez MD at 12:17 EDT , Service support ,
== END | disposition home or self-care (01) ==
LOC: OPBD 10:36
PROVIDERS: PCP Internal Medicine; Referring Provider Internal Medicine; Visit Provider Internal Medicine
DX: Z12.31 Encounter for screening mammogram for malignant neoplasm of breast (principal); M81.0 Age-related osteoporosis without current pathological fracture; Z87.891 Personal history of nicotine dependence
CPT/HCPCS: 77063; 77067; 77080

== ENCOUNTER 2021-02-07 12:40 | Emergency (ER) | payer MEDICARE, SELFPAY ==
[2017-12-17 13:40] VITALS: BMI 30.5
[2021-02-07 12:40] VITALS: BP 184/81; PULSE 67; RESP 16; TEMP 36.9; O2SAT 99; BMI 30.1
[2021-02-07] MEDS: Oxymetazoline 0.05% 1 SPRAY SPRAY.BTL 2 SPRAY NASAL (13:31)
--- NOTE | 2021-02-07 14:00 | EDS_ITS ---
HPI History of Present Illness Chief Complaint: Nosebleed Informant: patient Onset/Context/Timing Onset: Today Current Severity: Mild Maximum Severity: Moderate Narrative Narrative: Patient present secondary to right-sided nosebleed for the last 30 minutes. Patient states that she has small nosebleeds occasionally. Typically it will resolve with pressure being held for 3 to 5 minutes. She had trouble controlling this nosebleed and states it feels like it was running down her throat. She has had some mild URI symptoms recently. No facial trauma. [facility] Medical History Abnormal electrocardiogram Anxiety Arthritis Asbestos exposure Asthma Atherosclerosis of coronary artery of [place] heart without angina pectoris Benign paroxysmal positional vertigo Chest pain Dyspnea Essential (primary) hypertension History of hemorrhoids IBS (irritable bowel syndrome) Pure hypercholesterolemia Secondary pulmonary arterial hypertension Shoulder pain Stomach ulcer Home Medications lorazepam 0.5 mg PO DAILY PRN PRN 10/18/16 [History Last Taken Unknown] aspirin 81 mg tablet,delayed release 81 mg PO QDAY 10/22/17 [History Last Taken 01/07/18] calcium carbonate 500 mg calcium (1,250 mg) tablet 1,000 mg PO QDAY tab 10/23/17 [History Last Taken Unknown] cholecalciferol (vitamin D3) 125 mcg (5,000 unit) capsule 5,000 unit PO QDAY 10/23/17 [History Last Taken Unknown] guaifenesin 400 mg tablet 400 mg PO Q4H PRN 10/23/17 [History Last Taken Unknown] loratadine 10 mg tablet 10 mg PO QDAY 10/23/17 [History Last Taken Unknown] magnesium 250 mg tablet 250 mg PO QDAY 10/23/17 [History Last Taken Unknown] omeprazole 20 mg capsule,delayed release 20 mg PO QDAY PRN 10/23/17 [History Last Taken Unknown] pyridoxine (vitamin B6) 100 mg tablet 100 mg PO QDAY 10/23/17 [History Last Take n Unknown] vitamins-lipotropics tablet 1 tab PO QDAY 10/23/17 [History Last Taken Unknown] enalapril maleate 1.25 mg PO QDAY 01/21/18 [History Last Taken Unknown] fluticasone propionate 50 mcg/actuation nasal spray,suspension 1 spray INTRANASAL QDAY PRN 05/20/19 [History Last Taken Unknown] rosuvastatin 5 mg tablet 5 mg PO .3xweek #36 tab 06/20/20 [Rx Last Taken Unknown] propranolol 60 mg capsule,24 hr,extended release 60 mg PO QDAY #90 cap 11/16/20 [Rx Last Taken Unknown] Allergy/AdvReac Type Severity Reaction Status Date / Time risedronate sodium Allergy Other Verified 02/07/21 12:42 [From Actonel] fish oil AdvReac skin Verified 02/07/21 12:42 erruptions propoxyphene HCl AdvReac Nausea/Vom/ Verified 02/07/21 12:42 [From Darvon] Diarrhea SEASONAL Allergy Other Uncoded 02/07/21 12:42 STRAWBERRIES Allergy Hives Uncoded 02/07/21 12:42 ONION AdvReac Vomiting Uncoded 02/07/21 12:42 statin AdvReac abdominal Uncoded 02/07/21 12:42 pain Family History Mother CVA (cerebral vascular accident) Myocardial infarction, Onset Age: 93 Father Myocardial infarction [place] age 60 CAD (coronary artery disease) CABG x 3 Surgical History H/O eye surgery H/O tubal ligation History of back surgery History of coronary artery stent placement (12/17/17) History of tonsillectomy Social History Smoking Status: Former smoker quit date: 06/23/07 pack-years: 12 alcohol intake: current alcohol intake frequency: a few times a month caffeine: Yes Type: carbonated beverages ROS ROS ED Constitutional Constitutional ED: Denies chills or fever(s) Eyes Eyes: Denies change in vision ENT ENT ED: Reports other Details: Epistaxis, head congestion ; Denies sore throat Cardiovascular Cardiovascular: Denies chest pain Respiratory/Chest Respiratory/Chest: Denies cough or dyspnea Gastrointestinal Gastrointestinal: Denies abdominal pain, diarrhea, nausea or vomiting Integumentary Denies rash Neurologic Neurologic: Denies headache(s) or weakness Allergic/Immunologic Allergic/Immunologic ED: Denies urticaria EXAM Physical Exam Const Vital Signs: 02/07/21 12:40 Temperature 98.4 F Temperature Source Temporal Pulse Rate 67 Respiratory Rate 16 Blood Pressure 184/81 H Blood Pressure Mean 115 Pulse Ox 99 Oxygen Delivery Method Room Air Positive well nourished and well developed General Appearance ED: well developed HEENT Reports normocephalic and head/scalp atraumatic HEENT Narrative: Inflammation of turbinates in the right nare. No active bleeding noted. Eyes PERRL and EOMs intact bilaterally Neck supple Chest Wall inspection of chest normal and palpation of chest normal Resp normal respiratory effort and clear to auscultation bilaterally Cardio regular rate and regular rhythm GI normal to inspection, nondistended, normoactive bowel sounds Palpation: soft Extremity normal to inspection Neuro oriented x3 and no sensory deficits noted Sensorium / Orientation: alert Motor Exam: strength 5/5 throughout Psych mental status grossly normal Skin no rashes or lesions noted MDM MDM MDM Narrative Medical decision making narrative: Patient was given Afrin and observed for half hour. Treatment and Re-Evaluation Comments:: Patient has had no further bleeding here. We discussed packing her nose but she would prefer to hold off on this if possible. She was given return instructions. Discharge Plan Triage Chief Complaint: Nosebleed ED Provider: Maxine Osborne Dx/Rx/DC Orders Clinical Impression: Epistaxis Instructions: ED Epistaxis (Adult) Prescriptions: No Action loratadine [Allergy Relief (loratadine)] 10 mg tablet 10 mg PO QDAY RF: 0 guaifenesin 400 mg tablet 400 mg PO Q4H PRN (Reason: Chest Congestion/Secretions) RF: 0 omeprazole 20 mg capsule,delayed release(DR/EC) 20 mg PO QDAY PRN (Reason: Heartburn) RF: 0 cholecalciferol (vitamin D3) 5,000 unit capsule 5,000 unit PO QDAY RF: 0 pyridoxine (vitamin B6) [Vitamin B-6] 100 mg tablet 100 mg PO QDAY RF: 0 calcium carbonate [Calcium 500] 500 mg calcium (1,250 mg) tablet 1,000 mg PO QDAY RF: 0 magnesium 250 mg tablet 250 mg PO QDAY RF: 0 vitamins-lipotropics tablet tablet 1 tab PO QDAY RF: 0 aspirin [Adult Aspirin Regimen] 81 mg tablet,delayed release (DR/EC) 81 mg PO QDAY RF: 0 fluticasone propionate [Allergy Relief (fluticasone)] 50 mcg/actuation spray,suspension 1 spray INTRANASAL QDAY PRNRF: 0 rosuvastatin [Crestor] 5 mg tablet 5 mg PO .3xweek Qty: 36 RF: 3 lorazepam 0.5 MG tablet 0.5 mg PO DAILY PRN PRN (Reason: Anxiety) RF: 0 enalapril maleate 2.5 MG tablet 1.25 mg PO QDAY RF: 0 propranolol 60 mg capsule,extended release 24 hr 60 mg PO QDAY Qty: 90 RF: 3 Primary Care Provider: Emily Sheikh Referrals: Emily Sheikh DO [Primary Care Provider] - Dwain Parikh MD [STAFF PHYSICIAN] - As Needed Disposition Disposition: Home, Self Care Discharge Date/Time: 02/07/21 14:09
== END 2021-02-07 14:09 | disposition home or self-care (01) ==
PROVIDERS: Emergency Provider Emergency Medicine; PCP Internal Medicine
DX: R04.0 Epistaxis (principal); I25.10 Atherosclerotic heart disease of native coronary artery without angina pectoris; Z87.891 Personal history of nicotine dependence; Z87.19 Personal history of other diseases of the digestive system
CPT/HCPCS: 99282

== ENCOUNTER 2021-09-10 07:14 | Outpatient (CLI) | payer MEDICARE, SELFPAY ==
[2017-12-17 13:40] VITALS: BMI 30.5
--- NOTE | 2021-09-10 13:57 | STRESSREP ---
Stress Test Report Exercise myocardial perfusion stress test. 75-year-old lady with a history of chest pain. Stress protocol: Resting EKG demonstrates normal sinus rhythm with a rate of 63 bpm normal intervals are noted resting blood pressure is 134/74 mmHg. The patient exercised according to the regular Rinku protocol for a total duration of 6 minutes and 30 seconds. The maximum heart rate attained was 123 bpm which was 84% of max impact at heart rate the maximum workload was 7 metabolic equivalents. At rest there were no ST or T wave changes noted to suggest ischemia and at peak exercise upsloping ST changes were noted with did not meet the criteria for ischemia. No clinical angina was noted the test was terminated due to leg fatigue. The peak blood pressure was 174/68 mmHg. Myocardial perfusion protocol. 11.8 mCi of technetium 99m sestamibi was injected at rest. The patient exercised according to regular Rinku protocol for total duration of 6-1/2 minutes. At peak exercise 33.0 mCi of technetium 99m sestamibi was injected stress images were obtained stress and rest images were reconstructed and compared in the short axis vertical long and horizontal long axis. Gated images were also obtained. Perfusion SPECT analysis: Review of the stress images demonstrate normal uptake of tracer noted in all areas of the myocardium. The resting images similarly demonstrate normal uptake of tracer noted in all areas of the myocardium. No areas of reversibility are noted to suggest ischemia and no previous infarct is noted. Gated SPECT analysis: The gated ejection fraction is noted to be 85%. Conclusion: Normal exercise myocardial perfusion stress test at a moderate workload. Preserved ejection fraction.
== END 2021-09-10 23:59 | disposition home or self-care (01) ==
PROVIDERS: PCP Internal Medicine; Referring Provider Internal Medicine Cardiovascular Disease; Visit Provider Internal Medicine Cardiovascular Disease
DX: I25.10 Atherosclerotic heart disease of native coronary artery without angina pectoris (principal); Z95.5 Presence of coronary angioplasty implant and graft
CPT/HCPCS: 78452; 93017; A9500; A4216

== ENCOUNTER → 2022-05-02 | Outpatient (CLI) | payer MEDICARE, SELFPAY ==
[2017-12-17 13:40] VITALS: BMI 30.5
--- NOTE | 2022-05-02 14:24 | BI_ITS ---
MAMMOGRAPHY - BILATERAL SCREENING REASON FOR EXAM: Female, 76 years old. Routine annual screening examination. PERTINENT HISTORY: Mother with breast cancer. TECHNIQUE: Digital bilateral breast sheri (3D mammographic acquisition) in the CC and MLO projections. 2-D mediolateral oblique (MLO) and craniocaudad (CC) views of both breasts were obtained. CAD: Full Field Digital Mammography with Computer Added Detection was performed. COMPARISON: Comparison is made with prior study dated 12/16/2019 and 08/14/2017. FINDINGS: Breast Composition: There are scattered areas of fibroglandular density. There are no dominant masses or suspicious calcifications. Stable benign-appearing bilateral axillary lymph nodes. No other significant abnormalities are identified. There has been no significant change since the prior study. BI/SCRN MAMM (CAD)W/SHERI BILAT IMPRESSION: Stable bilateral screening mammogram. Yearly follow-up mammogram recommended. (A) ASSESSMENT CATEGORY: BIRADS Category 2: Benign. A letter regarding these results will be sent to the patient by the facility within 30 days. Approximately 10% of breast cancers are not detected by mammography. A normal mammogram should not delay biopsy of a clinically suspicious abnormality. [id number] Electronically Signed: Arnaldo Magallon MD at 15:36 EST ,
--- NOTE | 2022-05-02 14:24 | BD_ITS ---
STUDY: DUAL ENERGY X-RAY ABSORPTIOMETRY / DXA REASON FOR EXAM: Female, 76 years old. [id number] TECHNIQUE: Bone Mineral Density (BMD) measurements of lumbar spine and bilateral hips were obtained. COMPARISON: Comparison is made with prior study dated 12/16/2019. FINDINGS: Lumbar Spine (L1-L4): g/cm2 (0.780) / T-score (-1.8) / Z-score (0.5) Findings are suggestive of osteopenia with a moderate fracture risk. Left Femur Total: g/cm2 (0.705) / T-score (-1.9) / Z-score (-0.1) Left Femoral Neck: g/cm2 (0.53 to) / T-score (-2.9) / Z-score (-0.8) Right Femur Total: g/cm2 (0.793) / T-score (-1.2) / Z-score (0.7) Right Femoral Neck: g/cm2 (0.572) / T-score (-2.5) / Z-score (-0.4) The T-Scores on the most recent prior examination were: Lumbar Spine (L1-L4): There has been worsening of bone density since the previous examination. Left Femur Total: which represents a worsening of 2.6%. Right Femur Total: which represents an improvement of 4.7%. BD/Dexa Bone Density Study IMPRESSION: The patient is considered osteoporotic as outlined below according to World Benny Organization (WHO) criteria with a high fracture risk. There has been worsening of bone density since the previous examination. Reference Information: The T-score is the number of standard deviations above or below the standard which is normal for young adults at their peak bone mineral density. The World Health Organization (WHO) interprets the T-scores as follows: Above -1 Normal bone density Between -1 and -2.5 Osteopenia Equal to / or below -2.5 Osteoporosis As a practical clinical guideline, osteopenia may be graded as follows: Mild -1 through -1.5 Moderate -1.6 through -2.0 Severe -2.1 through -2.4 The Z-score is the number of standard deviations above or below age-matched controls. A Z-score of less than -1.5 would be considered abnormal. References: 1. NIH Osteoporosis and Related Bone Diseases www osteo.org 2. International Society for Clinical Densitometry www iscd.org 3. National Osteoporosis Foundation www nof.org Electronically Signed: Arnaldo Magallon MD at 14:45 EST ,
== END | disposition home or self-care (01) ==
LOC: OPBD 14:21
PROVIDERS: PCP Internal Medicine; Visit Provider Internal Medicine
DX: Z12.31 Encounter for screening mammogram for malignant neoplasm of breast (principal); Z80.3 Family history of malignant neoplasm of breast; Z78.0 Asymptomatic menopausal state
CPT/HCPCS: 77063; 77067; 77080

== ENCOUNTER 2022-07-13 19:28 | Emergency (ER) | payer MEDICARE, SELFPAY ==
[2017-12-17 13:40] VITALS: BMI 30.5
[2022-07-13 19:29] VITALS: BP 179/94; PULSE 71; RESP 16; TEMP 36.6; O2SAT 100; BMI 29.6
[2022-07-13 19:39] VITALS: BP 169/84; RESP 15; O2SAT 99
--- NOTE | 2022-07-13 19:40 | ED.RN ---
Addendum entered by Joya Elliott RN 07/13/22 19:41: Reports took a propranolol this am but the enalapril is what she took this evening, 1/2 pill Original Note: reports took ativan first and then a bp med around 1 hour ago.
--- NOTE | 2022-07-13 21:17 | EX.ED.DYSGE1 ---
HPI History of Present Illness Chief Complaint: Hypertension Detail of Chief Complaint: Acute on chronic hypertension. Increased stress. Informant: patient Onset/Context/Timing Onset: Today Context: Gradual Onset Current Severity: Mild Maximum Severity: Mild Narrative Narrative: 76-year-old female history of hypertension, CAD with 2 cardiac stents. For her hypertension she takes propranolol daily and enalapril. She takes those consistently and regularly. States that she is under increased stress because her daughter recently was diagnosed with ovarian cancer. Said today she got anxious and nervous about that and sent her blood pressure up. Prior to arrival she did take one of her blood pressure meds and a dose of Ativan for her anxiety. She denies any chest pain or headache. Prior similar symptoms: Yes Recent Illness/Hospitalization: No PFSH PFSH Medical History Anxiety Arthritis Asbestos exposure Asthma Atherosclerosis of coronary artery of [place] heart without angina pectoris Benign paroxysmal positional vertigo Dyspnea Epistaxis Essential (primary) hypertension History of hemorrhoids IBS (irritable bowel syndrome) Pure hypercholesterolemia Secondary pulmonary arterial hypertension Shoulder pain Stomach ulcer Home Medications lorazepam 0.5 mg tablet 0.5 mg PO DAILY PRN PRN Anxiety 10/18/16 [History Last Taken Unknown] aspirin 81 mg tablet,delayed release (Adult Aspirin Regimen) 81 mg PO QDAY 10/22/17 [History Last Taken 01/07/18] calcium carbonate 500 mg calcium (1,250 mg) tablet (Calcium 500) 1,000 mg PO QDAY 10/23/17 [History Last Taken Unknown] cholecalciferol (vitamin D3) 125 mcg (5,000 unit) capsule 5,000 unit PO QDAY 10/23/17 [History Last Taken Unknown] loratadine 10 mg tablet (Allergy Relief (loratadine)) 10 mg PO QDAY 10/23/17 [History Last Taken Unknown] magnesium 250 mg tablet 250 mg PO QDAY 10/23/17 [History Last Taken Unknown] omeprazole 20 mg capsule,delayed release 20 mg PO QDAY PRN Heartburn 10/23/17 [History Last Taken Unknown] pyridoxine (vitamin B6) 100 mg tablet (Vitamin B-6) 100 mg PO QDAY 10/23/17 [History Last Taken Unknown] vitamins-lipotropics tablet 1 tab PO QDAY 10/23/17 [History Last Taken Unknown] enalapril maleate 2.5 mg tablet 1.25 mg PO QDAY 01/21/18 [History Last Taken Unknown] niacin 100 mg tablet 100 mg PO .weekly 07/24/21 [History Last Taken Unknown] turmeric 400 mg capsule 800 mg PO .weekly 07/24/21 [History Last Taken Unknown] zinc gluconate 50 mg tablet 50 mg PO DAILY 07/24/21 [History Last Taken Unknown] propranolol 60 mg capsule,24 hr,extended release 60 mg PO QDAY #90 caps 11/20/21 [Rx Last Taken Unknown] rosuvastatin 5 mg tablet (Crestor) 5 mg PO .3xweek #36 tabs 04/17/22 [Rx Last Taken Unknown] Allergy/AdvReac Type Severity Reaction Status Date / Time risedronate sodium Allergy Other Verified 07/13/22 19:31 [From Actonel] strawberry Allergy Hives Verified 07/13/22 19:31 fish oil AdvReac skin Verified 07/13/22 19:31 erruptions onion AdvReac Vomiting Verified 07/13/22 19:31 propoxyphene HCl AdvReac Nausea/Vom/ Verified 07/13/22 19:31 [From Darvon] Diarrhea [id number]-YKS-CdN Reductase AdvReac Other Verified 07/13/22 19:31 Inhibitor Family History Mother CVA (cerebral vascular accident) Myocardial infarction, Onset Age: 93 Father Myocardial infarction [place] age 60 CAD (coronary artery disease) CABG x 3 Surgical History H/O eye surgery H/O tubal ligation History of back surgery History of coronary artery stent placement (01/07/18) History of tonsillectomy Social History Smoking Status: Former smoker quit date: 06/23/07 pack-years: 12 alcohol intake: current alcohol intake frequency: a few times a month caffeine: Yes Type: carbonated beverages ROS ROS ED ROS Narrative Denies. Review of Systems ROS Unobtainable: Denies due to encephalopathy Constitutional Constitutional ED: Denies chills or fever(s) Eyes Eyes: Denies blurry vision ENT ENT ED: Denies ear pain Cardiovascular Cardiovascular: Denies chest pain Respiratory/Chest Respiratory/Chest: Denies cough or dyspnea Gastrointestinal Gastrointestinal: Denies abdominal pain Genitourinary Genitourinary ED: Denies dysuria or hematuria Musculoskeletal Musculoskeletal: Denies arthralgias Integumentary Denies abscess or Abrasions Neurologic Neurologic: Denies headache(s) Psychiatric Psychiatric: Denies anxiety or depression Endocrine Endocrinology: Denies cold intolerance Hematologic/Lymphatic Hematologic/Lymphatic: Reports none Allergic/Immunologic Allergic/Immunologic ED: Denies mouth swelling or tongue swelling EXAM Physical Exam Narrative Exam Narrative: 76-year-old female no acute distress. Anxious and tearful. Vital signs are stable initial blood pressure is 179/94. She does not look septic toxic or in any distress. Is emotionally upset. H EENT exam unremarkable. Neck nontender. Lungs are clear. Heart regular rhythm rate about 70 no murmur. Abdomen soft nontender. Moving all 4 extremities. Calves are nontender without edema. Neurologically she is awake and alert. No focal motor deficits. Const Vital Signs: 07/13/22 19:29 07/13/22 19:39 07/13/22 19:39 Temperature 98 F Temperature Source Temporal Pulse Rate 71 Respiratory Rate 16 15 Respiratory Effort Normal Respiratory Pattern Normal Blood Pressure 179/94 H 169/84 H Blood Pressure Mean 122 112 Pulse Ox 100 99 Oxygen Delivery Method Room Air Room Air Positive well nourished and well developed; Negative for obese, cachectic, contractures or unkempt General Appearance ED: well developed and NAD; Negative for unkempt, cachectic, contractures, cyanotic or diaphoretic Nutritional Appearance: Negative for cachectic or obese HEENT Reports moist mucous membranes; Denies dry mucous membranes Negative for trauma or tenderness Mouth ED: No dry mucous membranes Mouth: No dry mucous membranes Eyes PERRL and EOMs intact bilaterally General Eye ED: Negative for pale conjunctiva or scleral icterus Neck no lymphadenopathy, supple and no JVD General: Negative for tenderness Lymph Lymphatic: Negative for other Chest Wall inspection of chest normal and palpation of chest normal Chest: Negative for other Resp normal respiratory effort and clear to auscultation bilaterally Effort and Inspection: Negative for retractions Auscultation: Negative for rales, rhonchi or wheezes Cardio regular rate, regular rhythm, S1 normal heart sound, S2 normal heart sound and no murmurs Rhythm: Negative for abnormal rhythm GI normal to inspection, nondistended, normoactive bowel sounds, non-tender, non-distended and no masses; Negative for hepatosplenomegaly Inspection: Negative for abdominal distention Auscultation: normoactive bowel sounds Palpation: soft; Negative for tender or guarding Back/Spine no CVA tenderness General Back: Negative for CVA tenderness Cervical Spine: Negative for cervical spine tenderness Thoracic Spine / Upper Back: Negative for thoracic spinal tenderness or paraspinal muscle tenderness Lumbar Spine / Lower Back: Negative for lumbar spinal tenderness Extremity normal to inspection General Extremety ED: Negative for edema or tenderness General Extremity: Negative for edema Neuro oriented x3 and CN's II-XII intact bilaterally Sensorium / Orientation: alert; Negative for orientation impaired, lethargic or stuporous Motor Exam: strength 5/5 throughout Psych Negative for mental status grossly normal Appearance: Negative for unkempt Attitude: No agitated Mood & Affect: anxious and tearful; Negative for depressed Skin no rashes or lesions noted, no wounds and skin turgor normal General Skin Exam: elasticity normal Lesions: No lesion noted Rashes: No rashes noted Trauma: Negative for abrasion Wounds: Negative for wounds noted MDM MDM MDM Narrative Medical decision making narrative: 76-year-old female with acute on chronic hypertension. Think this is mostly triggered by her anxiety due to her stress with her daughter's recent diagnosis of ovarian cancer. She takes her blood pressure medications both a beta-lidia and an MAHNAZ inhibitor as prescribed. She has not been missing dosages. She will be watched if her blood pressure is reasonable she will be discharged home. Do not think she needs any labs or further evaluation. Her exam is benign. Repeat exam she is doing well at 9:20 PM. Her blood pressure is improving. She will be discharged home with outpatient follow-up. Log your blood pressures twice daily. Follow-up with her doctor if they need to adjust her medications. Most likely they will not. Discharge Plan Triage Chief Complaint: Hypertension ED Provider: Michael Barron Dx/Rx/DC Orders Clinical Impression: Chronic hypertension, Anxiety, History of CAD (coronary artery disease) Instructions: ED High Blood Pressure Hypertension Prescriptions: No Action loratadine [Allergy Relief (loratadine)] 10 mg tablet 10 mg PO QDAY omeprazole 20 mg capsule,delayed release(DR/EC) 20 mg PO QDAY PRN (Reason: Heartburn) cholecalciferol (vitamin D3) 5,000 unit capsule 5,000 unit PO QDAY pyridoxine (vitamin B6) [Vitamin B-6] 100 mg tablet 100 mg PO QDAY calcium carbonate [Calcium 500] 500 mg calcium (1,250 mg) tablet 1,000 mg PO QDAY magnesium 250 mg tablet 250 mg PO QDAY vitamins-lipotropics tablet tablet 1 tab PO QDAY aspirin [Adult Aspirin Regimen] 81 mg tablet,delayed release (DR/EC) 81 mg PO QDAY zinc gluconate 50 mg tablet 50 mg PO DAILY turmeric 400 mg capsule 800 mg PO .weekly niacin 100 mg tablet 100 mg PO .weekly lorazepam 0.5 MG tablet 0.5 mg PO DAILY PRN PRN (Reason: Anxiety) enalapril maleate 2.5 MG tablet 1.25 mg PO QDAY propranolol 60 mg capsule,extended release 24 hr 60 mg PO QDAY Qty: 90 3RF rosuvastatin [Crestor] 5 mg tablet 5 mg PO .3xweek Qty: 36 3RF Primary Care Provider: Emily Sheikh Referrals: Emily Sheikh, DO [Primary Care Provider] - 3-5 Days if not improving Activity Restrictions/Additional Instructions: Take your blood pressure medications as prescribed. Log your blood pressures twice daily and follow-up with your doctor to see if they need to adjust her medication. Most likely they will not in the a lot of this is related to the stress related to your daughter's illness. Disposition Disposition: Home, Self Care
[2022-07-13 21:25] VITALS: BP 145/70; O2SAT 98
== END 2022-07-13 21:26 | disposition home or self-care (01) ==
PROVIDERS: Emergency Provider Emergency Medicine; PCP Internal Medicine; Visit Provider Emergency Medicine
DX: F41.9 Anxiety disorder, unspecified (principal); I25.10 Atherosclerotic heart disease of native coronary artery without angina pectoris; I10 Essential (primary) hypertension; Z87.891 Personal history of nicotine dependence; Z95.5 Presence of coronary angioplasty implant and graft; E78.00 Pure hypercholesterolemia, unspecified; Z79.899 Other long term (current) drug therapy; Z63.79 Other stressful life events affecting family and household
CPT/HCPCS: 99282

== ENCOUNTER 2022-07-14 23:56 | Emergency (ER) | payer MEDICARE, SELFPAY ==
[2017-12-17 13:40] VITALS: BMI 30.5
[2022-07-14 23:57] VITALS: BP 177/78; PULSE 71; RESP 17; TEMP 36.6; O2SAT 99; BMI 30.9
--- NOTE | 2022-07-15 00:21 | EKG12_ITS ---
Test Reason : Blood Pressure : / mmHG Vent. Rate : 067 BPM Atrial Rate : 067 BPM P-R Int : 194 ms QRS Dur : 078 ms QT Int : 388 ms P-R-T Axes : 050 -25 026 degrees QTc Int : 409 ms Normal sinus rhythm Nonspecific T wave abnormality Abnormal ECG Confirmed by TADEO METCALF, KATHERIN ([id number]), international editorial producer KOBI RYDER ([id number]) on 07/15/2022 10:58:58 AM Referred By: TL Confirmed By:KATHERIN PIEDRA MD
--- NOTE | 2022-07-15 00:22 | RAD_ITS ---
EXAM: XR CHEST, 2 VIEWS CLINICAL INDICATION: chest pain TECHNIQUE: Frontal and lateral views of the chest. This report was created using [employer] report generation technology. COMPARISON: Previous chest radiographs of 10/13/2017 and 05/19/2016. FINDINGS: LUNGS AND PLEURAL SPACES: Unremarkable. No consolidation or edema. No pneumothorax. No effusion. HEART: Heart size remains borderline enlarged, with normal pulmonary vasculature. Coronary artery stent material is now visualized. MEDIASTINUM: Aortic arch is again noted be calcific. The thoracic aorta is not elongated. No mediastinal widening. Trachea is midline. BONES/JOINTS: Stable multilevel thoracic degenerative disc disease. Pedicle screws and rods are now partially visualized in the mid to lower lumbar region. SOFT TISSUES: Unremarkable. RAD/Chest PA and Lateral IMPRESSION: Interval placement of lumbar pedicles and screws. No radiographic evidence of acute cardiopulmonary disease. Electronically Signed: Elian Ortiz MD at 0:50 EST ,
--- NOTE | 2022-07-15 00:22 | EDS_ITS ---
HPI History of Present Illness Chief Complaint: Hypertension Informant: patient Narrative Narrative: Presents for evaluation of elevated blood pressure with slight chest pain today. Patient seen yesterday for anxiety with elevated blood pressure. She is on enalapril 1.25 mg daily she is on propanolol 60 mg daily. She is taking her medications. She states yesterday was more stressed with her daughter's ovarian cancer diagnosis. Today she states that was not as much on her mind however states there is other things with previous deaths in the family and friends that she was thinking about. She states she took her a quarter of her Ativan she took her nighttime enalapril. She noted some twinge in her chest. She checked her blood pressure is 180/100. Her typical blood pressure at home is 125 over 70s she does admit to having whitecoat syndrome. History of coronary stent x2 therefore with her twinges in her chest she was concerned also wanted this checked out. Denies recent cough. Denies current chest symptoms. [facility] Medical History Anxiety Arthritis Asbestos exposure Asthma Atherosclerosis of coronary artery of [place] heart without angina pectoris Benign paroxysmal positional vertigo Dyspnea Epistaxis Essential (primary) hypertension History of hemorrhoids IBS (irritable bowel syndrome) Pure hypercholesterolemia Secondary pulmonary arterial hypertension Shoulder pain Stomach ulcer Home Medications lorazepam 0.5 mg tablet 0.5 mg PO DAILY PRN PRN Anxiety 10/18/16 [History Last Taken Unknown] aspirin 81 mg tablet,delayed release (Adult Aspirin Regimen) 81 mg PO QDAY 10/22/17 [History Last Taken 01/07/18] calcium carbonate 500 mg calcium (1,250 mg) tablet (Calcium 500) 1,000 mg PO QDAY 10/23/17 [History Last Taken Unknown] cholecalciferol (vitamin D3) 125 mcg (5,000 unit) capsule 5,000 unit PO QDAY 10/23/17 [History Last Taken Unknown] loratadine 10 mg tablet (Allergy Relief (loratadine)) 10 mg PO QDAY 10/23/17 [History Last Taken Unknown] magnesium 250 mg tablet 250 mg PO QDAY 10/23/17 [History Last Taken Unknown] omeprazole 20 mg capsule,delayed release 20 mg PO QDAY PRN Heartburn 10/23/17 [History Last Taken Unknown] pyridoxine (vitamin B6) 100 mg tablet (Vitamin B-6) 100 mg PO QDAY 10/23/17 [History Last Taken Unknown] vitamins-lipotropics tablet 1 tab PO QDAY 10/23/17 [History Last Taken Unknown] enalapril maleate 2.5 mg tablet 1.25 mg PO QDAY 01/21/18 [History Last Taken Unknown] niacin 100 mg tablet 100 mg PO .weekly 07/24/21 [History Last Taken Unknown] turmeric 400 mg capsule 800 mg PO .weekly 07/24/21 [History Last Taken Unknown] zinc gluconate 50 mg tablet 50 mg PO DAILY 07/24/21 [History Last Taken Unknown] propranolol 60 mg capsule,24 hr,extended release 60 mg PO QDAY #90 caps 11/20/21 [Rx Last Taken Unknown] rosuvastatin 5 mg tablet (Crestor) 5 mg PO .3xweek #36 tabs 04/17/22 [Rx Last Taken Unknown] Allergy/AdvReac Type Severity Reaction Status Date / Time risedronate sodium Allergy Other Verified 07/14/22 23:56 [From Actonel] strawberry Allergy Hives Verified 07/14/22 23:56 fish oil AdvReac skin Verified 07/14/22 23:56 erruptions onion AdvReac Vomiting Verified 07/14/22 23:56 propoxyphene HCl AdvReac Nausea/Vom/ Verified 07/14/22 23:56 [From Darvon] Diarrhea [id number] Reductase AdvReac Other Verified 07/14/22 23:56 Inhibitor Family History Mother CVA (cerebral vascular accident) Myocardial infarction, Onset Age: 93 Father Myocardial infarction [place] age 60 CAD (coronary artery disease) CABG x 3 Surgical History H/O eye surgery H/O tubal ligation History of back surgery History of coronary artery stent placement (01/07/18) History of tonsillectomy Social History Smoking Status: Former smoker quit date: 06/23/07 pack-years: 12 alcohol intake: current alcohol intake frequency: a few times a month caffeine: Yes Type: carbonated beverages ROS ROS ED Constitutional Constitutional ED: Denies chills, fever(s) or sweats Eyes Eyes: Denies change in vision ENT ENT ED: Denies dysphagia or sore throat Cardiovascular Cardiovascular: Reports chest pain; Denies leg edema, palpitations or racing heartbeat Respiratory/Chest Respiratory/Chest: Denies cough, dyspnea or dyspnea on exertion Gastrointestinal Gastrointestinal: Denies abdominal pain, diarrhea, nausea or vomiting Genitourinary Genitourinary ED: Denies dysuria, hematuria or urinary frequency Musculoskeletal Musculoskeletal: Denies back pain, extremity pain or neck pain Integumentary Denies rash or wounds Neurologic Neurologic: Denies headache(s), paresthesias or weakness EXAM Physical Exam Const Vital Signs: 07/14/22 23:57 07/14/22 23:59 07/15/22 01:00 Temperature 97.8 F Temperature Source Temporal Pulse Rate 71 Respiratory Rate 17 Respiratory Pattern Normal Blood Pressure 177/78 H Blood Pressure Mean 111 Pulse Ox 99 Oxygen Delivery Method Room Air Room Air 07/15/22 01:00 07/15/22 01:28 07/15/22 01:53 Temperature Temperature Source Pulse Rate 66 66 Respiratory Rate 20 H 15 Respiratory Pattern Blood Pressure 151/65 H 146/67 H 146/67 H Blood Pressure Mean 93 93 Pulse Ox Oxygen Delivery Method Room Air Positive well nourished and well developed General Appearance ED: well developed and NAD HEENT Reports moist mucous membranes normocephalic and atraumatic Eyes PERRL, EOMs intact bilaterally and conjunctivae normal General Eye ED: Yes normal appearance of both eyes Neck no lymphadenopathy and supple General: Negative for tenderness Chest Wall Chest: Negative for tenderness Resp normal respiratory effort and normal air movement Effort and Inspection: symmetric chest movement; Negative for respiratory distress Cardio regular rate, regular rhythm and no murmurs Peripheral Pulses: pulses 2+ throughout GI normal to inspection, nondistended, normoactive bowel sounds and non-tender Palpation: Negative for guarding or rebound tenderness present Back/Spine no CVA tenderness and no thoracic nor lumbar tenderness Extremity normal to inspection General Extremety ED: Negative for edema or tenderness General Extremity: Negative for edema Neuro oriented x3 and no sensory deficits noted Sensorium / Orientation: awake and alert Skin no rashes or lesions noted and no wounds MDM MDM MDM Narrative Medical decision making narrative: Patient blood pressure 177/78 on arrival. Intermittent chest symptoms history of coronary disease. Differential ACS atypical chest pain, hypertensive emergency, musculoskeletal chest pains. Patient without any dyspnea for PE concerns denies extensive sharps severe pain through her back for concerns for dissection. She had symmetric breath sounds therefore lower concerns for pneumothorax. She is seen yesterday records reviewed increased anxiety then, today states that as bad however has been thinking of lost friends 5 years ago. However she is more concerned that her blood pressure remains elevated. With her cardiac history work-up was initiated. 2 view chest x-ray interpreted by myself and read radiology shows no acute process. Troponin less than 3. Per algorithm noncardiac. Hemoglobin 14.2. Creatinine 0.8. Without intervention blood pressure down to 146/67 she states typically 120s systolic. Discussed with her concerns can increase her enalapril back to 1 full tablet 2.5 mg daily. She will continue to monitor her blood pressure. She will follow with her PCP. She understands symptoms with hypotension as this is happened in the past where she decreased her enalapril in half. Return precautions. All questions were answered. Lab Data Attestation: I reviewed the patient's lab results. Labs: Laboratory Results - last 24 hr 07/15/22 07/15/22 00:08 00:08 WBC 9.5 RBC 4.65 Hgb 14.2 Hct 42.2 MCV 90.8 MCH 30.5 MCHC 33.6 RDW Std Deviation 40.7 RDW Coeff of Kurtis 12.5 Plt Count 302 MPV 9.1 Immature Gran % (Auto) 0.200 Neut % (Auto) 43.6 L Lymph % (Auto) 47.2 H Hodgeman % (Auto) 5.8 Eos % (Auto) 2.9 Baso % (Auto) 0.3 Absolute Neuts (auto) 4.1 Absolute Lymphs (auto) 4.49 Nucleated RBC % 0 Sodium 141 Potassium 3.8 Chloride 107 Carbon Dioxide 30.0 Anion Gap 4 L BUN 14 Creatinine 0.80 Estim Creat Clear Calc 45.85 Est GFR (MDRD) Af Amer 89 Est GFR (MDRD) Non-Af 74 BUN/Creatinine Ratio 17.4 Glucose 118 H Calcium 9.6 Troponin I High Sens < 3 L Radiography Diagnostic Testing: Clinical Impression(s) from Imaging Studies Chest X-Ray 07/15/22 00:22 IMPRESSION: Interval placement of lumbar pedicles and screws. No radiographic evidence of acute cardiopulmonary disease. Electronically Signed: Elian Ortiz MD at 0:50 EST , EKG Initial EKG: Attestation: I personally reviewed and interpreted this EKG as follows: Comments: Sinus rate of 67, no ST changes, isolated T wave inversion in lead III. Discharge Plan Triage Chief Complaint: Hypertension ED Provider: Preet Scott Dx/Rx/DC Orders Clinical Impression: Hypertension, History of CAD (coronary artery disease), Atypical chest pain Instructions: Blood Pressure Check Steps, ED Chest Pain, Noncardiac Prescriptions: No Action loratadine [Allergy Relief (loratadine)] 10 mg tablet 10 mg PO QDAY omeprazole 20 mg capsule,delayed release(DR/EC) 20 mg PO QDAY PRN (Reason: Heartburn) cholecalciferol (vitamin D3) 5,000 unit capsule 5,000 unit PO QDAY pyridoxine (vitamin B6) [Vitamin B-6] 100 mg tablet 100 mg PO QDAY calcium carbonate [Calcium 500] 500 mg calcium (1,250 mg) tablet 1,000 mg PO QDAY magnesium 250 mg tablet 250 mg PO QDAY vitamins-lipotropics tablet tablet 1 tab PO QDAY aspirin [Adult Aspirin Regimen] 81 mg tablet,delayed release (DR/EC) 81 mg PO QDAY zinc gluconate 50 mg tablet 50 mg PO DAILY turmeric 400 mg capsule 800 mg PO .weekly niacin 100 mg tablet 100 mg PO .weekly lorazepam 0.5 MG tablet 0.5 mg PO DAILY PRN PRN (Reason: Anxiety) enalapril maleate 2.5 MG tablet 1.25 mg PO QDAY propranolol 60 mg capsule,extended release 24 hr 60 mg PO QDAY Qty: 90 3RF rosuvastatin [Crestor] 5 mg tablet 5 mg PO .3xweek Qty: 36 3RF Primary Care Provider: Emily Sheikh Referrals: Emily Sheikh DO [Primary Care Provider] - Activity Restrictions/Additional Instructions: Cardiac work-up negative. Increase your enalapril to 1 full tab 2.5 mg once a day. Follow-up with your doctor. Blood pressure down to 145/67 on recheck without intervention. Disposition Disposition: Home, Self Care Discharge Date/Time: 07/15/22 01:53
[2022-07-15 00:36] LABS: Absolute Lymphocyte Count 4.49 X10^3/uL (0.83-4.51); Absolute Neutrophil Count 4.1 X10^3/uL (2.0-7.7); Basophil# 0.03 X10^3/uL; Basophil% 0.3 % (0-1); Eosinophil# 0.28 X10^3/uL; Eosinophils% 2.9 % (0-5); Hematocrit 42.2 % (37-47); Hemoglobin 14.2 g/dL (12.0-15.0); Lymphocyte # 4.49 X10^3/ul (0.83-4.51); Lymphocyte % 47.2 % (19-41); Mean Corp Hgb Conc 33.6 g/dL (32-36); Mean Corpuscular Hgb 30.5 pg (27.0-32.0); Mean Corpuscular Volume 90.8 fL (81-99); Mean Platelet Vol. 9.1 fl (6.2-12.0); Monocyte# 0.55 X10^3/uL; Monocyte% 5.8 % (0-10); NRBC Flagged by Analyzer 0 % (0-5); Neutrophil # 4.14 X10^3/uL (2.7-7.7); Neutrophil % 43.6 % (47-70); Platelet Count 302 K/mm3 (150-450); RBC Distribution Width CV 12.5 % (11.6-14.6); RBC Distribution Width SD 40.7 fl (35.1-43.9); Red Blood Count 4.65 M/mm3 (4.2-5.4); White Blood Count 9.5 K/mm3 (4.4-11.0)
[2022-07-15 00:56] LABS: Anion Gap 4 (5-15); BUN 14 mg/dL (7-18); BUN/Creat Ratio 17.4 RATIO (10-20); Calcium,Total 9.6 mg/dL (8.5-10.1); Chloride 107 mmol/L (98-107); EST Glomerular Filtration Rate 74 mL/min (>60); Est Glom Filt Rate - Afr Amer 89 mL/min (>60); Estimated Creatinine Clearance 45.85 ml/min; Glucose 118 mg/dL (74-106); Potassium 3.8 mmol/L (3.5-5.1); Sodium Level 141 mmol/L (136-145); Troponin-I HS (w/2H Reflex) < 3 pg/mL (3.0-54.0)
[2022-07-15 01:00] VITALS: BP 151/65
[2022-07-15 01:28] VITALS: BP 146/67; PULSE 66; RESP 20
[2022-07-15 01:53] VITALS: BP 146/67; PULSE 66; RESP 15
[2022-07-15 02:33] LABS: Reflex Troponin-HS? (from REC) Y
== END 2022-07-15 01:53 | disposition home or self-care (01) ==
PROVIDERS: Emergency Provider Emergency Medicine; PCP Internal Medicine; Visit Provider Emergency Medicine
DX: R07.89 Other chest pain (principal); I10 Essential (primary) hypertension; I25.10 Atherosclerotic heart disease of native coronary artery without angina pectoris; E78.00 Pure hypercholesterolemia, unspecified; Z95.5 Presence of coronary angioplasty implant and graft; F41.9 Anxiety disorder, unspecified; J45.909 Unspecified asthma, uncomplicated; Z87.891 Personal history of nicotine dependence
CPT/HCPCS: 71046; 80048; 84484; 85025; 93005; 99285; A4216

== ENCOUNTER 2022-07-27 18:23 | Emergency (ER) | payer MEDICARE, SELFPAY ==
[2017-12-17 13:40] VITALS: BMI 30.5
[2022-07-27 18:24] VITALS: BP 206/92; PULSE 69; RESP 14; TEMP 36.2; O2SAT 99; BMI 30.2
--- NOTE | 2022-07-27 18:56 | EKG12_ITS ---
Test Reason : Blood Pressure : / mmHG Vent. Rate : 068 BPM Atrial Rate : 068 BPM P-R Int : 196 ms QRS Dur : 086 ms QT Int : 398 ms P-R-T Axes : 044 -18 013 degrees QTc Int : 423 ms Normal sinus rhythm T wave abnormality, consider anterior ischemia Abnormal ECG Confirmed by TADEO METCALF, KATHERIN ([id number]), publishing editor KOBI RYDER ([id number]) on 07/29/2022 1:14:59 PM Referred By: GLADYS Confirmed By:KATHERIN PIEDRA MD
[2022-07-27 19:07] VITALS: PULSE 69; RESP 14; O2SAT 99
[2022-07-27 19:08] VITALS: BP 168/76
[2022-07-27 19:14] LABS: Absolute Lymphocyte Count 3.53 X10^3/uL (0.83-4.51); Absolute Neutrophil Count 4.8 X10^3/uL (2.0-7.7); Basophil# 0.03 X10^3/uL; Basophil% 0.3 % (0-1); Eosinophil# 0.24 X10^3/uL; Eosinophils% 2.6 % (0-5); Hematocrit 41.6 % (37-47); Hemoglobin 14.6 g/dL (12.0-15.0); Lymphocyte # 3.53 X10^3/ul (0.83-4.51); Lymphocyte % 38.9 % (19-41); Mean Corp Hgb Conc 35.1 g/dL (32-36); Mean Corpuscular Hgb 31.3 pg (27.0-32.0); Mean Corpuscular Volume 89.1 fL (81-99); Mean Platelet Vol. 8.8 fl (6.2-12.0); Monocyte# 0.43 X10^3/uL; Monocyte% 4.7 % (0-10); NRBC Flagged by Analyzer 0 % (0-5); Neutrophil # 4.84 X10^3/uL (2.7-7.7); Neutrophil % 53.4 % (47-70); Platelet Count 287 K/mm3 (150-450); RBC Distribution Width CV 12.3 % (11.6-14.6); RBC Distribution Width SD 39.8 fl (35.1-43.9); Red Blood Count 4.67 M/mm3 (4.2-5.4); White Blood Count 9.1 K/mm3 (4.4-11.0)
--- NOTE | 2022-07-27 19:26 | EX.ED.DYSGE1 ---
HPI History of Present Illness Chief Complaint: Hypertension Detail of Chief Complaint: Elevated blood pressure 202/90 Informant: patient Onset/Context/Timing Onset: Today Context: Sudden Onset Timing: Continuous Quality: Elevated blood pressure Location: Initial blood pressure reading at daughters and at patient's residence Maximum Severity: Moderate Worsened by: Nothing Relieved by: Nothing Associated Symptoms Associated Symptoms: Chest discomfort at 1300 Narrative Narrative: Patient is a 76-year-old woman who is recently diagnosed with essential primary hypertension who was on enalapril 2.5 mg. Enalapril was increased to 5 mg. She is also on propranolol 60 mg a day. She states that around 1300 she had chest discomfort that she describes an ache. There was no associated symptoms or radiation. She has no known history of coronary artery disease. She denies indigestion or heartburn. She states she had a headache before her blood pressure was elevated. Presently she does not have a headache. Denies double vision, blurred vision or change in vision. She denies light sensitivity. She has ringing in ears decreased hearing. She denies trouble speech or swallowing. She presently denies chest pain. She denies shortness of breath. She denies back pain. She denies abdominal pain. She denies paresthesia, anesthesia or motor weakness upper or lower extremity. She denies problems with balance or coordination. Prior similar symptoms: Yes Recent Illness/Hospitalization: Yes [facility] Medical History Anxiety Arthritis Asbestos exposure Asthma Atherosclerosis of coronary artery of [place] heart without angina pectoris Benign paroxysmal positional vertigo Dyspnea Epistaxis Essential (primary) hypertension History of hemorrhoids IBS (irritable bowel syndrome) Pure hypercholesterolemia Secondary pulmonary arterial hypertension Shoulder pain Stomach ulcer Home Medications lorazepam 0.5 mg tablet 0.5 mg PO DAILY PRN PRN Anxiety 10/18/16 [History Last Taken Unknown] aspirin 81 mg tablet,delayed release (Adult Aspirin Regimen) 81 mg PO QDAY 10/22/17 [History Last Taken 01/07/18] calcium carbonate 500 mg calcium (1,250 mg) tablet (Calcium 500) 1,000 mg PO QDAY 10/23/17 [History Last Taken Unknown] cholecalciferol (vitamin D3) 125 mcg (5,000 unit) capsule 5,000 unit PO QDAY 10/23/17 [History Last Taken Unknown] loratadine 10 mg tablet (Allergy Relief (loratadine)) 10 mg PO QDAY 10/23/17 [History Last Taken Unknown] magnesium 250 mg tablet 250 mg PO QDAY 10/23/17 [History Last Taken Unknown] omeprazole 20 mg capsule,delayed release 20 mg PO QDAY PRN Heartburn 10/23/17 [History Last Taken Unknown] vitamins-lipotropics tablet 1 tab PO QDAY 10/23/17 [History Last Taken Unknown] niacin 100 mg tablet 100 mg PO .weekly 07/24/21 [History Last Taken Unknown] turmeric 400 mg capsule 800 mg PO .weekly 07/24/21 [History Last Taken Unknown] zinc gluconate 50 mg tablet 50 mg PO DAILY 07/24/21 [History Last Taken Unknown] propranolol 60 mg capsule,24 hr,extended release 60 mg PO QDAY #90 caps 11/20/21 [Rx Last Taken Unknown] rosuvastatin 5 mg tablet (Crestor) 5 mg PO .3xweek #36 tabs 04/17/22 [Rx Last Taken Unknown] blood pressure monitor (Blood Pressure Kit) #1 ea 07/24/22 [Rx Last Taken Unknown] enalapril maleate 5 mg tablet 5 mg PO QDAY #30 tabs 07/24/22 [Rx Last Taken Unknown] Allergy/AdvReac Type Severity Reaction Status Date / Time risedronate sodium Allergy Other Verified 07/27/22 18:24 [From Actonel] strawberry Allergy Hives Verified 07/27/22 18:24 fish oil AdvReac skin Verified 07/27/22 18:24 erruptions onion AdvReac Vomiting Verified 07/27/22 18:24 propoxyphene HCl AdvReac Nausea/Vom/ Verified 07/27/22 18:24 [From Darvon] Diarrhea [id number] Reductase AdvReac Other Verified 07/27/22 18:24 Inhibitor Family History Mother CVA (cerebral vascular accident) Myocardial infarction, Onset Age: 93 Father Myocardial infarction [place] age 60 CAD (coronary artery disease) CABG x 3 Surgical History H/O eye surgery H/O tubal ligation History of back surgery History of coronary artery stent placement (01/07/18) History of tonsillectomy Social History (Updated 07/27/22 @ 19:[address] Frank Guzmán MD) household members: none Smoking Status: Former smoker quit date: 06/23/07 pack-years: 12 alcohol intake: current alcohol intake frequency: a few times a month caffeine: Yes Type: carbonated beverages ROS ROS ED Constitutional Constitutional ED: Denies chills, fever(s) or subjective Eyes Eyes: Denies blurry vision, change in vision or diplopia ENT ENT ED: Denies ear pain, rhinorrhea or sore throat Cardiovascular Cardiovascular: Reports chest pain; Denies orthopnea, palpitations, paroxysmal nocturnal dyspnea or racing heartbeat Respiratory/Chest Respiratory/Chest: Denies cough, dyspnea, dyspnea on exertion, orthopnea or paroxysmal nocturnal dyspnea Gastrointestinal Gastrointestinal: Denies abdominal pain, nausea or vomiting Genitourinary Genitourinary ED: Denies dysuria, hematuria or urinary frequency Musculoskeletal Musculoskeletal: Denies arthralgias, back pain, myalgias or neck pain Integumentary Denies rash Neurologic Neurologic: Reports headache(s) and other Details: Greater detail HPI narrative ; Denies paresthesias or weakness Psychiatric Psychiatric: Denies anxiety Endocrine Endocrinology: Denies polydipsia or polyuria Hematologic/Lymphatic Hematologic/Lymphatic: Reports systems reviewed and no addt'l complaints, except as documented EXAM Physical Exam Const Vital Signs: 07/27/22 18:24 07/27/22 19:07 07/27/22 19:08 Temperature 97.1 F L Temperature Source Temporal Pulse Rate 69 69 Respiratory Rate 14 14 Blood Pressure 206/92 H 168/76 H Blood Pressure Mean 130 106 Pulse Ox 99 99 Oxygen Delivery Method Room Air Room Air Positive well nourished and well developed General Appearance ED: well developed and NAD; Negative for cyanotic, diaphoretic or pallor HEENT Reports moist mucous membranes HEENT Narrative: Head is atraumatic normocephalic. Ears normal. TMs normal. Nares patent. Uvula midline. No deviation tongue or protrusion. There is no erythema or exudate of the posterior pharynx. Eyes PERRL and EOMs intact bilaterally Eyes Narrative: There is no nystagmus. There is no papilledema. There is no AV nicking. General Eye ED: Negative for pale conjunctiva or scleral icterus Neck no lymphadenopathy, supple and no JVD Neck Narrative: There are no clear bruits. Chest Wall inspection of chest normal Resp normal respiratory effort and clear to auscultation bilaterally Effort and Inspection: Negative for pain with movement Cardio regular rate, regular rhythm, S1 normal heart sound, S2 normal heart sound and no murmurs GI normal to inspection, nondistended, normoactive bowel sounds, non-tender and non-distended; Negative for hepatosplenomegaly Back/Spine no CVA tenderness Cervical Spine: Negative for cervical spine tenderness Thoracic Spine / Upper Back: Negative for thoracic spinal tenderness Lumbar Spine / Lower Back: Negative for lumbar spinal tenderness Extremity normal to inspection Extremity Narrative: Rate will and DP pulses 2+ and symmetric. General Extremety ED: Negative for edema or tenderness General Extremity: Negative for edema Neuro oriented x3, CN's II-XII intact bilaterally and no sensory deficits noted Neuro Narrative: There is no dysmetria. There is no clonus. There is no Babinski sign. Sensorium / Orientation: alert Motor Exam: strength 5/5 throughout Psych mental status grossly normal Skin no rashes or lesions noted, no wounds and skin turgor normal General Skin Exam: Negative for jaundice or pallor MDM MDM MDM Narrative Medical decision making narrative: Patient with asymptomatic hypertension. Will observe since she took an additional dose of enalapril prior to coming. Will obtain blood work to assess for endorgan dysfunction. Because of her complaint of chest discomfort EKG was obtained as well as troponin. Review of prior admission reveals patient did have elevated blood pressure readings and was on enalapril. Lab Data Attestation: I reviewed the patient's lab results. Lab results narrative: CBC is unremarkable. Labs: Laboratory Results - last 24 hr 07/27/22 07/27/22 07/27/22 19:05 19:05 19:25 WBC 9.1 RBC 4.67 Hgb 14.6 Hct 41.6 MCV 89.1 MCH 31.3 MCHC 35.1 RDW Std Deviation 39.8 RDW Coeff of [place] 12.3 Plt Count 287 MPV 8.8 Immature Gran % (Auto) 0.100 Neut % (Auto) 53.4 Lymph % (Auto) 38.9 [place] % (Auto) 4.7 Eos % (Auto) 2.6 Baso % (Auto) 0.3 Absolute Neuts (auto) 4.8 Absolute Lymphs (auto) 3.53 Nucleated RBC % 0 Sodium 143 Potassium 4.2 Chloride 107 Carbon Dioxide 29.0 Anion Gap 7 BUN 16 Creatinine 0.86 Estim Creat Clear Calc 42.65 Est GFR (MDRD) Af Amer 82 Est GFR (MDRD) Non-Af 68 BUN/Creatinine Ratio 18.5 Glucose 108 H Calcium 10.4 H Troponin I High Sens 4 Urine Color Yellow Urine Clarity Clear Urine pH 7.0 Ur Specific [place] 1.010 Urine Protein 15 H Urine Glucose (UA) Normal Urine Ketones Negative Urine Occult Blood 10 H Urine Nitrite Negative Urine Bilirubin Negative Urine Urobilinogen Normal Ur Leukocyte Esterase 500 H Urine RBC 0 SEEN Urine WBC 5-10 SEEN Ur Squamous Epith Cells 0-5 SEEN Urine Bacteria RARE Urine Mucus 0 SEEN EKG Initial EKG: Attestation: I personally reviewed and interpreted this EKG as follows: Interpretation: Sinus Rhythm (Rate is 68. The MT interval is 196 ms. QS duration 86 ms. QT duration 3 to 98 ms. Schurz is normal. There is a flipped T wave in lead III which is nonspecific. There is also flipped T waves in the anterior leads. We will need old EKG for comparison) Prior: Unchanged Treatment and Re-Evaluation Narrative: Patient was informed of results her blood pressure was 144/91. Since there is no evidence of endorgan dysfunction and blood pressure is improved markedly we will discharged to home in stable and improved condition Discharge Plan Triage Chief Complaint: Hypertension ED Provider: Frank Guzmán Dx/Rx/DC Orders Clinical Impression: Accelerated essential hypertension, Atherosclerosis of coronary artery of [place] heart without angina pectoris, Essential (primary) hypertension, Pure hypercholesterolemia, Asymptomatic microscopic hematuria, Asymptomatic proteinuria Instructions: ED Hypertension, Established Prescriptions: No Action loratadine [Allergy Relief (loratadine)] 10 mg tablet 10 mg PO QDAY omeprazole 20 mg capsule,delayed release(DR/EC) 20 mg PO QDAY PRN (Reason: Heartburn) cholecalciferol (vitamin D3) 5,000 unit capsule 5,000 unit PO QDAY calcium carbonate [Calcium 500] 500 mg calcium (1,250 mg) tablet 1,000 mg PO QDAY magnesium 250 mg tablet 250 mg PO QDAY vitamins-lipotropics tablet tablet 1 tab PO QDAY aspirin [Adult Aspirin Regimen] 81 mg tablet,delayed release (DR/EC) 81 mg PO QDAY zinc gluconate 50 mg tablet 50 mg PO DAILY turmeric 400 mg capsule 800 mg PO .weekly niacin 100 mg tablet 100 mg PO .weekly enalapril maleate 5 mg tablet 5 mg PO QDAY Qty: 30 6RF (DME) blood pressure monitor [Blood Pressure Kit] Kit See Rx Instructions .Route Qty: 1 0RF Rx Instructions: As directed lorazepam 0.5 MG tablet 0.5 mg PO DAILY PRN PRN (Reason: Anxiety) propranolol 60 mg capsule,extended release 24 hr 60 mg PO QDAY Qty: 90 3RF rosuvastatin [Crestor] 5 mg tablet 5 mg PO .3xweek Qty: 36 3RF Primary Care Provider: Emily Sheikh Referrals: Emily Sheikh DO [Primary Care Provider] - 1-2 Weeks Activity Restrictions/Additional Instructions: If you develop elevated blood pressure with symptoms: Numbness or tingling in your upper or lower extremities Difficulty using your upper or lower extremities Trouble with speech or swallowing Problems with coordination or balance If you have no symptoms take an additional dose of your enalapril. If there is no improvement after 2 to 3 hours then come to the emergency department Disposition Disposition: Home, Self Care
[2022-07-27 19:31] LABS: Anion Gap 7 (5-15); BUN 16 mg/dL (7-18); BUN/Creat Ratio 18.5 RATIO (10-20); Calcium,Total 10.4 mg/dL (8.5-10.1); Chloride 107 mmol/L (98-107); Creatinine, Serum 0.86 mg/dL (0.55-1.02); EST Glomerular Filtration Rate 68 mL/min (>60); Est Glom Filt Rate - Afr Amer 82 mL/min (>60); Estimated Creatinine Clearance 42.65 ml/min; Glucose 108 mg/dL (74-106); Potassium 4.2 mmol/L (3.5-5.1); Sodium Level 143 mmol/L (136-145); Troponin-I HS 4 pg/mL (3.0-54.0)
[2022-07-27 19:32] LABS: Mucous, Urine 0 SEEN /hpf (<or=2+); Red Blood Cells-Urine 0 SEEN /hpf (0-5)
[2022-07-27 19:34] LABS: Color, Urine Yellow (Yellow); Glucose, Dipstick Normal (Normal); Ketone-Dipstick Negative (Negative); Leukocyte Esterase-Dipstick 500 /ul (Negative); Nitrite-Dipstick Negative (Negative); Occult Blood-Urine 10 /ul (Negative); Protein-Dipstick 15 mg/dl (Negative); Urine Bilirubin Dipstick Negative (Negative); Urine Clarity Clear (Clear); Urine Urobilinogen Normal (Normal)
[2022-07-27 19:43] LABS: Bacteria RARE /hpf (None Seen); Squamous Epithelial Cells - UA 0-5 SEEN /hpf (5-10); White Blood Cells 5-10 SEEN /hpf (0-5)
[2022-07-27 20:22] VITALS: BP 147/69
== END 2022-07-27 20:22 | disposition home or self-care (01) ==
PROVIDERS: Emergency Provider Emergency Medicine; PCP Internal Medicine; Visit Provider Emergency Medicine
DX: I10 Essential (primary) hypertension (principal); I25.10 Atherosclerotic heart disease of native coronary artery without angina pectoris; R31.21 Asymptomatic microscopic hematuria; Z87.891 Personal history of nicotine dependence; R80.9 Proteinuria, unspecified; E78.00 Pure hypercholesterolemia, unspecified; R07.9 Chest pain, unspecified; R51.9 Headache, unspecified
CPT/HCPCS: 80048; 81001; 84484; 85025; 93005; 99284; A4216

== ENCOUNTER 2023-03-21 13:36 | Emergency (ER) | payer MEDICARE, SELFPAY ==
[2017-12-17 13:40] VITALS: BMI 30.5
[2023-03-21 13:37] VITALS: BP 153/80; PULSE 64; RESP 18; TEMP 36.1; O2SAT 100
[2023-03-21 14:10] VITALS: BMI 30.7
--- NOTE | 2023-03-21 14:20 | EDS_ITS ---
HPI History of Present Illness Chief Complaint: Back Informant: patient Onset/Context/Timing Onset: Days Narrative Narrative: Is a 7-day history of left lower back pain radiating down her left leg. She states her pain started last Friday. She been picking tomatoes in the garden. She threw a tomato off to her right side and when she did that she felt a sharp pain in her groin. She states for the time she got back in the house she had pain in her left lower back radiating down her leg. She went to the emergency room at [place]. X-rays showed no acute bony findings. She was treated with Flexeril which she cut in half and Yoder which she would cut in half. By Friday she was not significantly improved and went back to the emergency room. She states they gave her 2 injections and also write her prescriptions for naproxen and tizanidine. She does admit that her symptoms are improving but she is not back to baseline. Her doctor had made an appointment for her to see her PCP today, however the patient found out that it was a nurse practitioner that she was going to see so she figured she would just come to the emergency room instead. She does report some constipation. She did take milk of magnesia without significant results. She was able to pass only a very small amount of stool earlier today. [facility] Medical History Anxiety Arthritis Asbestos exposure Asthma Atherosclerosis of coronary artery of [place] heart without angina pectoris Benign paroxysmal positional vertigo Dyspnea Epistaxis Essential (primary) hypertension History of hemorrhoids IBS (irritable bowel syndrome) Pure hypercholesterolemia Secondary pulmonary arterial hypertension Shoulder pain Stomach ulcer Home Medications lorazepam 0.5 mg tablet 0.5 mg PO DAILY PRN PRN Anxiety 10/18/16 [History Last Taken Unknown] aspirin 81 mg tablet,delayed release (Adult Aspirin Regimen) 81 mg PO QDAY 10/22/17 [History Last Taken 01/07/18] calcium carbonate 500 mg calcium (1,250 mg) tablet (Calcium 500) 1,000 mg PO QDAY 10/23/17 [History Last Taken Unknown] cholecalciferol (vitamin D3) 125 mcg (5,000 unit) capsule 5,000 unit PO QDAY 10/23/17 [History Last Taken Unknown] loratadine 10 mg tablet (Allergy Relief (loratadine)) 10 mg PO QDAY 10/23/17 [History Last Taken Unknown] magnesium 250 mg tablet 250 mg PO QDAY 10/23/17 [History Last Taken Unknown] omeprazole 20 mg capsule,delayed release 20 mg PO QDAY PRN Heartburn 10/23/17 [History Last Taken Unknown] vitamins-lipotropics tablet 1 tab PO QDAY 10/23/17 [History Last Taken Unknown] niacin 100 mg tablet 100 mg PO .weekly 07/24/21 [History Last Taken Unknown] turmeric 400 mg capsule 800 mg PO .weekly 07/24/21 [History Last Taken Unknown] zinc gluconate 50 mg tablet 50 mg PO DAILY 07/24/21 [History Last Taken Unknown] blood pressure monitor (Blood Pressure Kit) #1 ea 07/24/22 [Rx Last Taken Unknown] enalapril maleate 2.5 mg tablet 2.5 mg PO BID #180 tabs 11/01/22 [Rx Last Taken Unknown] propranolol 60 mg capsule,24 hr,extended release 60 mg PO QDAY #90 caps 11/01/22 [Rx Last Taken Unknown] rosuvastatin 5 mg tablet (Crestor) 5 mg PO .3xweek #36 tabs 03/03/23 [Rx Last Taken Unknown] cyclobenzaprine 5 mg tablet 5 mg PO Q8H PRN muscle spasm 03/21/23 [History Last Taken Unknown] hydrocodone-acetaminophen 5-325mg 5mg-325mg 0.5 tab PO Q6H PRN pain 03/21/23 [History Last Taken Unknown] naproxen 250 mg tablet 250 mg PO Q12H 03/21/23 [History Last Taken Unknown] tizanidine 2 mg tablet 2 mg PO Q12H 03/21/23 [History Last Taken Unknown] Allergy/AdvReac Type Severity Reaction Status Date / Time risedronate sodium Allergy Other Verified 03/21/23 13:36 [From Actonel] strawberry Allergy Hives Verified 03/21/23 13:36 fish oil AdvReac skin Verified 03/21/23 13:36 erruptions onion AdvReac Vomiting Verified 03/21/23 13:36 propoxyphene HCl AdvReac Nausea/Vom/ Verified 03/21/23 13:36 [From Lewis] Diarrhea [id number] Reductase AdvReac Other Verified 03/21/23 13:36 Inhibitor Family History Mother CVA (cerebral vascular accident) Myocardial infarction, Onset Age: 93 Father Myocardial infarction [place] age 60 CAD (coronary artery disease) CABG x 3 Surgical History H/O eye surgery H/O tubal ligation History of back surgery History of coronary artery stent placement (01/07/18) History of tonsillectomy Social History household members: none Smoking Status: Former smoker quit date: 06/23/07 pack-years: 12 alcohol intake: current alcohol intake frequency: a few times a month caffeine: Yes Type: carbonated beverages ROS ROS ED Constitutional Constitutional ED: Denies chills or fever(s) Eyes Eyes: Denies discharge from eye(s) ENT ENT ED: Denies discharge from eye(s), rhinorrhea or sore throat Cardiovascular Cardiovascular: Denies chest pain or palpitations Respiratory/Chest Respiratory/Chest: Denies cough or dyspnea Gastrointestinal Gastrointestinal: Reports constipation; Denies abdominal pain, diarrhea, nausea or vomiting Genitourinary Genitourinary ED: Denies dysuria Musculoskeletal Musculoskeletal: Reports back pain and extremity pain Integumentary Denies Abrasions or rash Neurologic Neurologic: Reports paresthesias; Denies headache(s) or weakness Psychiatric Psychiatric: Denies anxiety or depression Allergic/Immunologic Allergic/Immunologic ED: Denies lip swelling or urticaria EXAM Physical Exam Const Vital Signs: 03/21/23 13:37 Temperature 97 F L Temperature Source Temporal Pulse Rate 64 Respiratory Rate 18 Blood Pressure 153/80 H Blood Pressure Mean 104 Pulse Ox 100 Oxygen Delivery Method Room Air Positive well nourished and well developed General Appearance ED: well developed HEENT Reports moist mucous membranes Eyes EOMs intact bilaterally Resp normal respiratory effort and clear to auscultation bilaterally Cardio regular rate and regular rhythm GI soft to palpation and non-tender Back/Spine Back/Spine Narrative: Reproducible tenderness in the left low lumbar paraspinal muscles and over the left sciatic notch. Extremity normal to inspection Neuro oriented x3 and no sensory deficits noted Neuro Narrative: Patient reports decree sensation over the proximal aspect of the left anterior thigh. This is improving. She does have good strength on testing. Strong distal pulses. Skin no rashes or lesions noted MDM MDM MDM Narrative Medical decision making narrative: Patient's story and exam findings are consistent with sciatica. She is already on muscle relaxer, anti-inflammatories, and opioids. I advised her the other medication I could treat her with to help is steroid. She is very reluctant to taking oral steroids over any significant time stating that they make her feel suicidal. She does agree to an IM injection of steroid that would be a slow low-dose release. She will be given a dose of Kenalog. We discussed using stool softeners as I do believe her constipation is secondary to the opioids that she has been using. She states she has not taken Yoder the last 2 days. A friend at bedside states that she has stool softeners that she will get the patient. At this time I do not feel repeat imaging is needed. She states that she still has plenty of the pills that she was prescribed at home to use. Return instructions are given Discharge Plan Triage Chief Complaint: Back ED Provider: Maxine Osborne Dx/Rx/DC Orders Clinical Impression: Sciatica Instructions: ED Sciatica Prescriptions: No Action loratadine [Allergy Relief (loratadine)] 10 mg tablet 10 mg PO QDAY omeprazole 20 mg capsule,delayed release(DR/EC) 20 mg PO QDAY PRN (Reason: Heartburn) cholecalciferol (vitamin D3) 5,000 unit capsule 5,000 unit PO QDAY calcium carbonate [Calcium 500] 500 mg calcium (1,250 mg) tablet 1,000 mg PO QDAY magnesium 250 mg tablet 250 mg PO QDAY vitamins-lipotropics tablet tablet 1 tab PO QDAY aspirin [Adult Aspirin Regimen] 81 mg tablet,delayed release (DR/EC) 81 mg PO QDAY zinc gluconate 50 mg tablet 50 mg PO DAILY turmeric 400 mg capsule 800 mg PO .weekly niacin 100 mg tablet 100 mg PO .weekly (DME) blood pressure monitor [Blood Pressure Kit] Kit See Rx Instructions .Route Qty: 1 0RF Rx Instructions: As directed lorazepam 0.5 MG tablet 0.5 mg PO DAILY PRN PRN (Reason: Anxiety) hydrocodone-acetaminophen 5-325 mg tablet 0.5 tab PO Q6H PRN (Reason: pain) Patient Comments: take 1 tablet by mouth every 6 hours if needed for pain cyclobenzaprine 5 mg tablet 5 mg PO Q8H PRN (Reason: muscle spasm) Patient Comments: take 1 tablet by mouth three times a day if needed for muscle spasm naproxen 250 mg tablet 250 mg PO Q12H Patient Comments: take 1 tablet by mouth twice a day for 7 days tizanidine 2 mg tablet 2 mg PO Q12H Patient Comments: take 1 tablet by mouth every 8 hours if needed for muscle spasm propranolol 60 mg capsule,extended release 24 hr 60 mg PO QDAY Qty: 90 3RF enalapril maleate 2.5 mg tablet 2.5 mg PO BID Qty: 180 3RF rosuvastatin [Crestor] 5 mg tablet 5 mg PO .3xweek Qty: 36 3RF Primary Care Provider: Emily Sheikh Referrals: Emily Sheikh DO [Primary Care Provider] - 5-7 Days Disposition Disposition: Home, Self Care
[2023-03-21] MEDS: Triamcinolone Acetonide 40 MG/ML Vial IM (14:26)
[2023-03-21 14:30] VITALS: PULSE 72; RESP 16
== END 2023-03-21 14:30 | disposition home or self-care (01) ==
PROVIDERS: Emergency Provider Emergency Medicine; PCP Internal Medicine; Visit Provider Emergency Medicine
DX: M54.30 Sciatica, unspecified side (principal); I25.10 Atherosclerotic heart disease of native coronary artery without angina pectoris; E78.00 Pure hypercholesterolemia, unspecified; Z87.891 Personal history of nicotine dependence; I10 Essential (primary) hypertension
CPT/HCPCS: 96372; 99282

== ENCOUNTER → 2023-05-12 | Outpatient (CLI) | payer MEDICARE, SELFPAY ==
[2017-12-17 13:40] VITALS: BMI 30.5
--- NOTE | 2023-05-12 13:42 | US_ITS ---
INDICATION: ongoing pelvic pain EXAMINATION: Ultrasound US Pelvis Non OB Complete With Transvaginal Imaging TECHNIQUE: Transabdominal and transvaginal pelvic ultrasound was performed. Grayscale, spectral waveform, and color flow Doppler evaluation of the adnexa. COMPARISON: FINDINGS: UTERUS: Anteverted. The uterus measures 5.6 x 4.7 x 2.9 cm. There is no uterine mass. The endometrial cavity measures 7 mm in AP diameter with mild endometrial fluid noted. 2 polypoid nodules are noted measuring 4 to 5 mm. RIGHT OVARY: 1.9 x 1.3 x 1.0 cm. Non-enlarged, normal echogenicity. There is normal arterial inflow and venous outflow present in the right ovary. LEFT OVARY: 1.3 x 1.4 x 0.9 cm. Non-enlarged, normal echogenicity. There is normal arterial inflow and venous outflow present in the left ovary. FREE FLUID: None. US/Pelvic w/ Transvaginal IMPRESSION: Endometrial fluid with polypoid nodules. Electronically Signed: Jared Guy DO at 18:58 EST Reading Location ID and State: [facility] / [place] Tel [phone], Service support ,
== END | disposition home or self-care (01) ==
LOC: US 13:41
PROVIDERS: PCP Internal Medicine; Referring Provider Nurse Practitioner Women's Health; Visit Provider Nurse Practitioner Women's Health
DX: R10.2 Pelvic and perineal pain (principal)
CPT/HCPCS: 76830; 76856

== ENCOUNTER 2023-07-01 17:16 | Emergency (ER) | payer MEDICARE, SELFPAY ==
[2017-12-17 13:40] VITALS: BMI 30.5
[2023-07-01 17:18] VITALS: BP 157/74; PULSE 94; RESP 16; TEMP 36.3; O2SAT 100; BMI 29.8
--- NOTE | 2023-07-01 19:53 | RAD_ITS ---
STUDY: X-RAY - ABDOMEN/PELVIS REASON FOR EXAM: Female, 77 years old. constipation TECHNIQUE: Single AP view of the abdomen / pelvis. COMPARISON: None. FINDINGS: Normal visualized lung bases. Moderate to abundant fecal debris within the colon which may indicate mild constipation. There is no demonstrated free abdominal air. The visualized liver, spleen and kidneys are grossly normal in size and morphology. Normal soft tissue structures. Degenerative disease of the spine, bilateral SI joints and hips. Status post posterior fusion of the lower lumbar spine. RAD/Abdomen Single View (Portable) IMPRESSION: Possible constipation. Clinical correlation recommended. Electronically Signed: Rebecca Begum MD at 20:12 EST ,
--- NOTE | 2023-07-01 19:59 | EX.ED.DYSGE1 ---
HPI <MAIKEL Banuelos - Last Filed: 07/01/23 21:02> History of Present Illness Chief Complaint: Constipation Narrative Narrative: Patient presenting today due to constipation that she has had over the past 3 days. She reports, my stool is too big to come out. She reports that she has tried taking milk of magnesia, and a stool softener yesterday and today. She reports that she wanted to give herself an enema but was unsure how to do it. She denies any abdominal pain, nausea, and vomiting. She denies any history of bowel obstruction. She reports that she did pass a small amount of stool this morning. She reports that she has had a little bit of bleeding from her hemorrhoid which does happen when she strains this. 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 Benign paroxysmal positional vertigo Dyspnea Epistaxis Essential (primary) hypertension History of hemorrhoids IBS (irritable bowel syndrome) Pure hypercholesterolemia Secondary pulmonary arterial hypertension Shoulder pain Stomach ulcer Home Medications lorazepam 0.5 mg tablet 0.5 mg PO DAILY PRN PRN Anxiety 10/18/16 [History Last Taken Unknown] calcium carbonate 500 mg calcium (1,250 mg) tablet (Calcium 500) 1,000 mg PO QDAY 10/23/17 [History Last Taken Unknown] cholecalciferol (vitamin D3) 125 mcg (5,000 unit) capsule 5,000 unit PO QDAY 10/23/17 [History Last Taken Unknown] loratadine 10 mg tablet (Allergy Relief (loratadine)) 10 mg PO QDAY 10/23/17 [History Last Taken Unknown] magnesium 250 mg tablet 250 mg PO QDAY 10/23/17 [History Last Taken Unknown] omeprazole 20 mg capsule,delayed release 20 mg PO QDAY PRN Heartburn 10/23/17 [History Last Taken Unknown] turmeric 400 mg capsule 800 mg PO .weekly 07/24/21 [History Last Taken Unknown] zinc gluconate 50 mg tablet 50 mg PO DAILY 07/24/21 [History Last Taken Unknown] blood pressure monitor (Blood Pressure Kit) #1 ea 07/24/22 [Rx Last Taken Unknown] propranolol 60 mg capsule,24 hr,extended release 60 mg PO QDAY #90 caps 11/01/22 [Rx Last Taken Unknown] rosuvastatin 5 mg tablet (Crestor) 5 mg PO .3xweek #36 tabs 03/03/23 [Rx Last Taken Unknown] tizanidine 2 mg tablet 2 mg PO Q12H 03/21/23 [History Last Taken Unknown] enalapril maleate 2.5 mg tablet 2.5 mg PO DAILY 04/23/23 [History Last Taken Unknown] niacin 100 mg tablet 100 mg PO .as needed 04/23/23 [History Last Taken Unknown] Allergy/AdvReac Type Severity Reaction Status Date / Time risedronate sodium Allergy Other Verified 06/03/23 09:34 [From Actonel] strawberry Allergy Hives Verified 06/03/23 09:34 fish oil AdvReac skin Verified 06/03/23 09:34 erruptions onion AdvReac Vomiting Verified 06/03/23 09:34 propoxyphene HCl AdvReac Nausea/Vom/ Verified 06/03/23 09:34 [From Darvon] Diarrhea Xpaiuyl-XQU-DlG Reductase AdvReac Other Verified 06/03/23 09:34 Inhibitor Family History Mother CVA (cerebral vascular accident) Myocardial infarction, Onset Age: 93 Breast cancer Father Myocardial infarction [place] age 60 CAD (coronary artery disease) CABG x 3 Surgical History H/O eye surgery H/O tubal ligation History of back surgery History of coronary artery stent placement (01/07/18) History of tonsillectomy S/P trigger finger release Social History household members: none current occupational status: retired Smoking Status: Former smoker quit date: 06/23/07 pack-years: 12 alcohol intake: current alcohol intake frequency: a few times a month substance use type: does not use caffeine: Yes Type: carbonated beverages seatbelt use: always do you feel safe at home: Yes ROS <MAIKEL Banuelos - Last Filed: 07/01/23 21:02> ROS ED Constitutional Constitutional ED: Denies chills or fever(s) Cardiovascular Cardiovascular: Denies chest pain Respiratory/Chest Respiratory/Chest: Denies cough or dyspnea Gastrointestinal Gastrointestinal: Reports constipation; Denies abdominal pain, diarrhea, nausea or vomiting Genitourinary Genitourinary ED: Denies dysuria, hematuria or urinary frequency Musculoskeletal Musculoskeletal: Denies arthralgias or myalgias Integumentary Denies rash Neurologic Neurologic: Denies weakness EXAM <MAIKEL Banuelos - Last Filed: 07/01/23 21:02> Physical Exam Const Vital Signs: 07/01/23 17:18 Temperature 97.4 F L Temperature Source Temporal Pulse Rate 94 Respiratory Rate 16 Blood Pressure 157/74 H Blood Pressure Mean 101 Pulse Ox 100 Oxygen Delivery Method Room Air Positive well nourished, well developed and no apparent distress General Appearance ED: well developed HEENT Reports normocephalic and head/scalp atraumatic Mouth ED: Yes moist mucous membranes normal Eyes PERRL and EOMs intact bilaterally Neck full ROM and supple Chest Wall inspection of chest normal Resp normal respiratory effort and clear to auscultation bilaterally Cardio regular rate and regular rhythm GI soft to palpation, non-tender, non-distended and no masses GI Narrative: Rectal examination reveals normal sphincter tone, hard stool within the rectal vault, much of this has been disimpacted. External nonthrombosed hemorrhoid. Back/Spine normal ROM and normal to inspection Extremity normal to inspection and full ROM Neuro oriented x3, CN's II-XII intact bilaterally, moves all extremities, no focal motor deficits and no sensory deficits noted Sensorium / Orientation: awake and alert Psych mental status grossly normal and thought process normal Skin no rashes or lesions noted and no wounds <Dr. Hank Reyes DO - Last Filed: 07/01/23 22:52> Physical Exam Const Vital Signs: 07/01/23 17:18 Temperature 97.4 F L Temperature Source Temporal Pulse Rate 94 Respiratory Rate 16 Blood Pressure 157/74 H Blood Pressure Mean 101 Pulse Ox 100 Oxygen Delivery Method Room Air MDM <MAIKEL Banuelos - Last Filed: 07/01/23 21:02> [facility] MDM Narrative Medical decision making narrative: Patient presenting today due to constipation. Last had a small bowel movement this morning. She denies any abdominal pain, nausea, or vomiting. KUB shows constipation, no signs of bowel obstruction. Rectal exam reveals hard stool within the rectal vault, I did disimpact much of this. She will be given a soapsuds enema and will be reevaluated. I have encouraged a high-fiber diet, she can take Metamucil for fiber supplementation. She can also use MiraLAX as needed for constipation. Radiography X-Ray: Read by ED Physician and Read by Radiologist Diagnostic Testing: Clinical Impression(s) from Imaging Studies KUB X-Ray 07/01/23 19:53 IMPRESSION: Possible constipation. Clinical correlation recommended. Electronically Signed: Rebecca Begum MD at 20:12 EST , <Dr. Hank Reyes, DO - Last Filed: 07/01/23 22:52> [facility] Narrative Medical decision making narrative: Patient presenting today due to constipation. Last had a small bowel movement this morning. She denies any abdominal pain, nausea, or vomiting. KUB shows constipation, no signs of bowel obstruction. Rectal exam reveals hard stool within the rectal vault, I did disimpact much of this. She will be given a soapsuds enema and will be reevaluated. I have encouraged a high-fiber diet, she can take Metamucil for fiber supplementation. She can also use MiraLAX as needed for constipation. I have personally performed a face to face assessment of the patient and have reviewed the ALIE Note. I performed a substantive portion of the visit including all aspects of the following. My figueroa findings include: Patient complaining of constipation. There is some passage of gas. My interpretation of the x-ray shows constipation no bowel obstruction. Patient was treated with subset enema. Would recommend high-fiber diet/stool softener and MiraLAX as needed. Radiography Diagnostic Testing: Clinical Impression(s) from Imaging Studies KUB X-Ray 07/01/23 19:53 IMPRESSION: Possible constipation. Clinical correlation recommended. Electronically Signed: Rebecca Begum MD at 20:12 EST , Discharge Plan Triage Chief Complaint: Constipation ED Midlevel Provider: Dinorah Mcnally ED Provider: Hank Reyes Dx/Rx/DC Orders Clinical Impression: External hemorrhoids, Fecal impaction in rectum, Constipation Instructions: ED Constipation (Adult) Prescriptions: No Action loratadine [Allergy Relief (loratadine)] 10 mg tablet 10 mg PO QDAY omeprazole 20 mg capsule,delayed release(DR/EC) 20 mg PO QDAY PRN (Reason: Heartburn) cholecalciferol (vitamin D3) 5,000 unit capsule 5,000 unit PO QDAY calcium carbonate [Calcium 500] 500 mg calcium (1,250 mg) tablet 1,000 mg PO QDAY magnesium 250 mg tablet 250 mg PO QDAY zinc gluconate 50 mg tablet 50 mg PO DAILY turmeric 400 mg capsule 800 mg PO .weekly niacin 100 mg tablet 100 mg PO .as needed (DME) blood pressure monitor [Blood Pressure Kit] Kit See Rx Instructions .Route Qty: 1 0RF Rx Instructions: As directed enalapril maleate 2.5 mg tablet 2.5 mg PO DAILY lorazepam 0.5 MG tablet 0.5 mg PO DAILY PRN PRN (Reason: Anxiety) tizanidine 2 mg tablet 2 mg PO Q12H Patient Comments: take 1 tablet by mouth every 8 hours if needed for muscle spasm propranolol 60 mg capsule,extended release 24 hr 60 mg PO QDAY Qty: 90 3RF rosuvastatin [Crestor] 5 mg tablet 5 mg PO .3xweek Qty: 36 3RF Primary Care Provider: Emily Sheikh Referrals: Emily Sheikh DO [Primary Care Provider] - 5-7 Days Activity Restrictions/Additional Instructions: Begin increasing the fiber in your diet. You can begin taking a daily fiber supplement such as Metamucil. If you continue to feel constipated, you can add MiraLAX. Disposition Disposition: Home, Self Care
[2023-07-02 00:10] VITALS: BP 120/87; PULSE 66; RESP 16; O2SAT 98
== END 2023-07-02 00:12 | disposition home or self-care (01) ==
PROVIDERS: Emergency Provider Emergency Medicine; PCP Internal Medicine; Visit Provider Emergency Medicine
DX: K56.41 Fecal impaction (principal); Z87.891 Personal history of nicotine dependence; K64.4 Residual hemorrhoidal skin tags; J45.909 Unspecified asthma, uncomplicated; I25.10 Atherosclerotic heart disease of native coronary artery without angina pectoris; I10 Essential (primary) hypertension; E78.00 Pure hypercholesterolemia, unspecified
CPT/HCPCS: 74018; 99284

== ENCOUNTER 2023-07-22 11:10 | Day surgery (SDC) | payer MEDICARE, SELFPAY ==
[2017-12-17 13:40] VITALS: BMI 30.5
[2023-07-15 11:28] LABS: Hematocrit 41.8 % (37-47); Hemoglobin 13.7 g/dL (12.0-15.0); Mean Corp Hgb Conc 32.8 g/dL (32-36); Mean Corpuscular Hgb 30.7 pg (27.0-32.0); Mean Corpuscular Volume 93.7 fL (81-99); Mean Platelet Vol. 9.2 fl (6.2-12.0); Platelet Count 355 K/mm3 (150-450); RBC Distribution Width CV 12.5 % (11.6-14.6); RBC Distribution Width SD 43.1 fl (35.1-43.9); Red Blood Count 4.46 M/mm3 (4.2-5.4); White Blood Count 9.2 K/mm3 (4.4-11.0)
[2023-07-15 11:59] LABS: ALB/GLOB Ratio 0.9 RATIO (0.9-2.4); AST(SGOT) 19 U/L (15-37); Alanine Aminotransfer ALT/SGPT 27 U/L (13-56); Albumin, Serum 3.5 g/dL (3.2-5.0); Alkaline Phosphatase 62 U/L (45-117); Anion Gap 3 (5-15); BUN 14 mg/dL (7-18); BUN/Creat Ratio 17.1 RATIO (10-20); Chloride 108 mmol/L (98-107); Creatinine, Serum 0.82 mg/dL (0.55-1.02); EST Glomerular Filtration Rate 72 mL/min (>60); Est Glom Filt Rate - Afr Amer 87 mL/min (>60); Globulin 3.8 g/dL (2.2-4.2); Glucose 104 mg/dL (74-106); Potassium 4.2 mmol/L (3.5-5.1); Protein, Total 7.3 g/dL (6.4-8.2); Sodium Level 140 mmol/L (136-145)
[2023-07-22 11:45] VITALS: BP 132/72; PULSE 78; RESP 16; TEMP 37; O2SAT 98; BMI 29.6
[2023-07-22] MEDS: Lactated Ringers 1,000 ML 15 ML IV (11:48)
--- NOTE | 2023-07-22 12:11 | HP.PCM_ITS ---
History and Physical Date of Admission: 07/22/23 Vital Signs 06/03/2309:45 07/01/2416:18 07/03/2413:32 07/03/2413:34 Height 5 ft 1 in 5 ft 1 in 5 ft 1 in 5 ft 1 in Weight: 155 lb 8 oz BMI 29.3 BP 177/66 H Intake Visit Reasons: D&C [employer] Required: No Is patient in pain?: No Allergies risedronate sodium [From Actonel] Allergy (Verified 07/03/23 14:33) Otherstrawberry Allergy (Verified 07/03/23 14:33) Hivesfish oil Adverse Reaction (Verified 07/03/23 14:33) skin erruptionsonion Adverse Reaction (Verified 07/03/23 14:33) Vomitingpropoxyphene HCl [From Darvon] Adverse Reaction (Verified 07/03/23 14:33) Nausea/Vom/PxrwitimRtxrfrv-FAH-EfC Reductase Inhibitor Adverse Reaction (Verified 07/03/23 14:33) Other Medications lorazepam 0.5 mg tablet 0.5 mg PO DAILY PRN PRN Anxiety 10/18/16 [History Confirmed 07/03/23] calcium carbonate 500 mg calcium (1,250 mg) tablet (Calcium 500) 1,000 mg PO QDAY 10/23/17 [History Confirmed 07/03/23] cholecalciferol (vitamin D3) 125 mcg (5,000 unit) capsule 5,000 unit PO QDAY 10/23/17 [History Confirmed 07/03/23] loratadine 10 mg tablet (Allergy Relief (loratadine)) 10 mg PO QDAY 10/23/17 [History Confirmed 07/03/23] magnesium 250 mg tablet 250 mg PO QDAY 10/23/17 [History Confirmed 07/03/23] omeprazole 20 mg capsule,delayed release 20 mg PO QDAY PRN Heartburn 10/23/17 [History Confirmed 07/03/23] turmeric 400 mg capsule 800 mg PO .weekly 07/24/21 [History Confirmed 07/03/23] zinc gluconate 50 mg tablet 50 mg PO DAILY 07/24/21 [History Confirmed 07/03/23] blood pressure monitor (Blood Pressure Kit) #1 ea 07/24/22 [Rx Confirmed 07/03/23] propranolol 60 mg capsule,24 hr,extended release 60 mg PO QDAY #90 caps 11/01/22 [Rx Confirmed 07/03/23] rosuvastatin 5 mg tablet (Crestor) 5 mg PO .3xweek #36 tabs 03/03/23 [Rx Confirmed 07/03/23] tizanidine 2 mg tablet 2 mg PO Q12H 03/21/23 [History Confirmed 07/03/23] enalapril maleate 2.5 mg tablet 2.5 mg PO DAILY 04/23/23 [History Confirmed 07/03/23] niacin 100 mg tablet 100 mg PO .as needed 04/23/23 [History Confirmed 07/03/23] Post menopausal: Yes Patient : No : No PFSH Medical History Anxiety Arthritis Asbestos exposure Asthma Atherosclerosis of coronary artery of elim ira heart without angina pectoris Benign paroxysmal positional vertigo Dyspnea Epistaxis Essential (primary) hypertension History of hemorrhoids IBS (irritable bowel syndrome) Pure hypercholesterolemia Secondary pulmonary arterial hypertension Shoulder pain Stomach ulcer Surgical History H/O eye surgery H/O tubal ligation History of back surgery History of coronary artery stent placement (01/07/18) History of tonsillectomy S/P trigger finger release Family History Mother CVA (cerebral vascular accident) Myocardial infarction, Onset Age: 93 Breast cancerFather Myocardial infarction [place] age 60 CAD (coronary artery disease) CABG x 3 Social History household members: none current occupational status: retired Smoking Status: Former smoker quit date: 06/23/07 pack-years: 12 alcohol intake: current alcohol intake frequency: a few times a month substance use type: does not use caffeine: Yes Type: carbonated beverages seatbelt use: always do you feel safe at home: Yes HPI D&C Symphion Details: MARIPOSA PIZARRO is a 77 year old who presents for preop visit she has an endometrial polyp planning d and c hysteroscopy symphion, needs cardiac clearance- will clairfy if this has been done Female Reproductive History Menopausal Symptoms: No night sweats History 3 Elective abortions Hx Para 1 Spontaneous abortions Hx # Term Pregnancies Ectopic pregnancies Hx # Pregnancies Multiple births # of living children 1 Past Pregnancies Del. Date Name GA/Weeks Outcome Route Bth Weight Gen Labor Lgth Anesthesia Del [facility] Provider FOB Unknown Sonal [facility] ROS Const Constitutional: Denies fatigue, night sweats, weight gain or weight loss ENT ENT: Reports system reviewed and no additional complaints, except as documented Cardio Card: Denies chest pain Resp Resp: Denies cough or dyspnea GI GI: Reports as per HPI; Denies abdominal pain, constipation, nausea or vomiting : Denies nipple discharge, urinary frequency, urinary incontinence, urinary hesitancy, urinary urgency, vaginal discharge, vaginal dryness, vaginal odor or vaginal pruritus Musc Musc: Denies arthralgias, back pain or muscle weakness Skin Skin/Breast: Denies alopecia, change in hair, dry skin, breast mass, breast pain, breast skin changes or nipple discharge Neuro Neuro: Reports system reviewed and no additional complaints, except as documented Psych Psych: Reports system reviewed and no additional complaints, except as documente d Endo Endo: Denies cold intolerance, excessive sweating, heat intolerance or polydipsia Navarro/Lymph Hematologic/Lymphatic: Denies easy bleeding, Denies easy bruising and Denies lymphadenopathy Exam Const General: cooperative, healthy appearing, comfortable and no acute distress Orientation: alert [facility] Head: normal to inspection and normocephalic Ears: hearing grossly normal bilaterally and external ears normal Nose: external nose normal and nares normal Face and sinus: normal facial exam Neck Neck: normal visual inspection and no lymphadenopathy Thyroid: thyroid normal Chest Chest palpation & inspection: normal inspection of the chest Resp Effort & Inspection: normal respiratory effort Auscultation: clear to auscultation bilaterally Cardio Rate: regular rate Rhythm: regular rhythm Heart Sounds: S1 normal and S2 normal GI Inspection: normal to inspection and non-distended Palpation: soft and no hepatosplenomegaly Musc Other: gross motor intact no deficits, full bilateral strength Skin General: no rashes or lesions noted Neuro General: patient alert, patient awake, moves all extremities and no focal motor deficits Motor: muscle tone normal throughout Extrem General: normal to inspection and no pedal edema Psych Appearance: grossly normal Mental Status: mental status grossly normal Affect: normal affect Speech and Movement: speech and movement normal Coding Level of Care Code No Charge Diagnoses Endometrial polyp N84.0 Atherosclerosis of elim ira coronary artery of elim ira heart without angina pectoris I25.10 Coronary Disease-Associated Artery/Lesion type: elim ira artery History of coronary artery stent placement Z95.5 Assessment and Plan Assessment and Plan (1) Endometrial polyp: Status: Acute Comment: recommend d and c hysteroscopy. symphion. (2) Atherosclerosis of coronary artery of elim ira heart without angina pectoris: Status: Chronic Qualifiers: Coronary Disease-Associated Artery/Lesion type: elim ira artery Qualified Code(s): I25.10 - Atherosclerotic heart disease of elim ira coronary artery without angina pectoris (3) History of coronary artery stent placement: Status: Chronic Comment: [id number] LCx w/ 2.5 x 16 mm Synergy MR DAVID 12/17/17; [id number] RPDA w/ 2.25 x 12 mm Synergy stent 01/07/2018 Plan After discussing the patient's diagnosis and treatment plan options, patient wishes to proceed with surgical management. I have discussed with the patient the risks, benefits, and alternatives of the procedure which include but are not limited to risks of anesthesia, bleeding, infection, possible damage to bowel, bladder, or surrounding vasculature which could lead to additional surgery to evaluate any complications. Patient agrees to procedure and wishes to proceed. ACOG/uptodate references given for additional information regarding procedure. UPDATE- I have seen the patient and performed any clinically relevant updates to the history and physical exam. Katie Segura MD
[2023-07-22] MEDS: Lidocaine 1% (30 ml sdv) 30 ML Vial (12:30)
[2023-07-22 12:40] VITALS: BP 132/72; BP 95/73; PULSE 75; RESP 18; TEMP 36.8; O2SAT 98
[2023-07-22 12:45] VITALS: BP 127/76; BP 132/72; PULSE 72; RESP 18; O2SAT 98
[2023-07-22 12:50] VITALS: BP 132/72; BP 140/77; PULSE 72; RESP 18; TEMP 36.9; O2SAT 96
--- NOTE | 2023-07-22 13:00 | EMB_PTH ---
PATHOLOGY RESULTS PATIENT: MARIPOSA PIZARRO LOC: [facility] [place] U#:[id number] AGE/SX: 77/F ROOM: RE07/22/[address]: Dr. Katie Segura MD : 1945 BED: DIS: 07/22/2023 SPEC #: [id number] RECD: 07/22/23 15:20 STATUS: BRANDAN RELacey #: [id number] AGUSTINA: 07/22/23 13:[address]: Katie Segura DEPT: SURGICAL PATHOLOGY RECD BY: Delores Murray ENTERED: 07/23/23 08:36 SP TYPE: ENDOM BX/C [place] DR: Dr. Emily Sheikh DO Tissues: Endometrium, NOS Procedures: Surgery Specimen Level IV HEADER OPERATION: Hysteroscopy, D & C PRE-OP DIAGNOSIS: Endometrial polyp TISSUE SUBMITTED: Endometrial curettings MICROSCOPIC DIAGNOSIS Endometrium, curettings: Benign cystic change of atrophy. Inactive endometrium. Fragments of benign squamous mucosa. AM:ria 07/24/2023 COMMENT Case has been reviewed in consultation with Dr. Groves who concurs with the above diagnosis. IDC:TRACEY MICROSCOPIC DESCRIPTION Slides are reviewed. GROSS DESCRIPTION Received in fixative is one container labeled with the patient's name and designated endometrial curettings. The specimen consists of multiple irregular fragments of light chung soft tissue mixed with mucoid tissue that in aggregate measure 1.0 x 1.0 x 0.1 cm. The specimen is totally submitted in one cassette. / TRACEY:ria 07/23/2023 TC:5 CPT: 93231
--- NOTE | 2023-07-22 13:15 | DCINST_ITS ---
Discharge Instructions Diet Discharge Diet: No restrictions Activity Discharge Activity: Return to Normal Activity, May Shower and May Take a Tub Bath (after 1 week) May resume sexual activity in: 1-2 weeks Weight Bearing Status: Weight bearing as tolerated Lifting Restrictions: none Dressing / Incision Call your doctor if you observe: Fever of 101 or Higher, Using more than 1 pad per hour, Shortness of breath and Uncontrolled pain Follow Up Care Please Follow Up With: Katie Segura MD When: Call [phone] to schedule appointment. Test Results: Test results from this visit will be discussed in further detail at your follow- up appointment, if applicable. Discharge Plan Admission Attending Provider: Katie Segura Primary Care Provider: Emily Sheikh Discharge Orders/Prescriptions Prescriptions: No Action loratadine [Allergy Relief (loratadine)] 10 mg tablet 10 mg PO QDAY omeprazole 20 mg capsule,delayed release(DR/EC) 20 mg PO QDAY PRN (Reason: Heartburn) cholecalciferol (vitamin D3) 5,000 unit capsule 5,000 unit PO QDAY calcium carbonate [Calcium 500] 500 mg calcium (1,250 mg) tablet 1,000 mg PO QDAY magnesium 250 mg tablet 250 mg PO QDAY zinc gluconate 50 mg tablet 50 mg PO DAILY niacin 100 mg tablet 100 mg PO .as needed (DME) blood pressure monitor [Blood Pressure Kit] Kit See Rx Instructions .Route Qty: 1 0RF Rx Instructions: As directed enalapril maleate 2.5 mg tablet 2.5 mg PO DAILY lorazepam 0.5 MG tablet 0.5 mg PO DAILY PRN PRN (Reason: Anxiety) Ear Care 200-100 mg tablet 1 tab PO DAILY propranolol 60 mg capsule,extended release 24 hr 60 mg PO QDAY Qty: 90 3RF rosuvastatin [Crestor] 5 mg tablet 5 mg PO .3xweek Qty: 36 3RF Other Ambulatory Orders: 12 Lead EKG (Routine) Timeframe: [id number] Location: None Selected Ordered By: Dr. Katie Segura Referrals / Follow Up: Emily Sheikh DO [Primary Care Provider] - Disposition Disposition (needs filled in before D/C Order can be placed): Home, Self Care
--- NOTE | 2023-07-22 13:15 | PCM.OPRPT ---
Problems Associated Problem List Diagnoses (1) Endometrial polyp: Report of Operation Date of Procedure: 07/22/23 Pre-Operative Diagnosis: see problem list Post-Operative Diagnosis: same Surgery/Procedure Performed:: D&C hysteroscopy Description of Surgical Findings:: cystic lining Surgeon: Katie Segura assistant printer floor covering: None Type of Anesthesia: Local MAC Special Medications: none Specimen's removed: EMC Drains: none Estimated Blood Loss (mL): 5 Fluids Replaced: crystalloid deficit 0 Description of Procedure: Patient was prepped and draped in a normal sterile fashion under MAC anesthesia. A weighted speculum was placed in the vagina and the anterior lip of the cervix was grasped with a single-tooth tenaculum. A paracervical block was placed with 1% lidocaine. Cervix was progressively dilated to allow passage of a 5 mm hysteroscope. The lining was fully visualized and noted to have cystic appearing heterogenous lining . Uterine sounded to 7 cm. Curettage was performed and tissue removed , sent to pathology. All instruments were removed from the vagina and excellent hemostasis was noted. Patient was awoken and taken to recovery in stable condition. Grafts/Implants Used: none Procedure Start Time: 12:26 Procedure Stop Time: 12:31 Complications none Admit VTE Documentation VTE Present on Admission: No VTE Mechan Device Prophylaxis: SCD's Multi Select Codes Urinary/Genital Urinary/Genital CPT Codes: 93232 Hysteroscopy,EMC, Polypectomy
[2023-07-22] MEDS: Oxycodone/Apap 5/325 Tablet PO (13:36)
[2023-07-22 14:49] VITALS: BP 130/62; BP 132/72; PULSE 68; RESP 16; TEMP 36.6; O2SAT 98
== END 2023-07-22 15:01 | disposition home or self-care (01) ==
LOC: SDC 11:11 → AC 11:13
PROVIDERS: PCP Internal Medicine; Referring Provider Obstetrics & Gynecology; Visit Provider Obstetrics & Gynecology
PROC: 0UB98ZZ Excision of Uterus, Via Natural or Artificial Opening Endoscopic (ICD-10-PCS; CPT 58558; principal; 2023-07-22 12:45)
DX: N84.0 Polyp of corpus uteri (principal); I25.10 Atherosclerotic heart disease of native coronary artery without angina pectoris; E78.00 Pure hypercholesterolemia, unspecified; I10 Essential (primary) hypertension; Z95.5 Presence of coronary angioplasty implant and graft; Z87.891 Personal history of nicotine dependence; J45.909 Unspecified asthma, uncomplicated; Z79.899 Other long term (current) drug therapy
CPT/HCPCS: 58558; 36415; 80053; 85027; 86850; 86900; 86901; 88305; 93005; J7120; J2405

== ENCOUNTER → 2023-07-29 | Outpatient (CLI) | payer MEDICARE, SELFPAY ==
[2017-12-17 13:40] VITALS: BMI 30.5
== END | disposition home or self-care (01) ==
LOC: LABSPEC 13:18
PROVIDERS: PCP Internal Medicine; Referring Provider Advanced Practice Midwife; Visit Provider Advanced Practice Midwife
DX: N89.8 Other specified noninflammatory disorders of vagina (principal); R30.0 Dysuria
CPT/HCPCS: 87070; 87077; 87086; 87088; 87186; 87205

== ENCOUNTER 2023-08-11 00:27 | Emergency (ER) | payer MEDICARE, SELFPAY ==
[2017-12-17 13:40] VITALS: BMI 30.5
[2023-08-11 00:29] VITALS: BP 214/77; PULSE 64; RESP 14; TEMP 36.6; O2SAT 99; BMI 30.4
--- NOTE | 2023-08-11 00:35 | EX.ED.DYSGE1 ---
HPI History of Present Illness Chief Complaint: Hypertension Informant: patient Onset/Context/Timing Onset: Today and Hours (6-7) Context: Gradual Onset Timing: Intermittent and Lasts (Few minutes) Quality: Pressure Location: Left temporal and left ear Worsened by: Nothing Relieved by: Nothing Narrative Narrative: Patient presents with elevated blood pressure and not feeling right that began tonight. Patient states it began approximately 6 to 7 hours prior to arrival. Patient states she had some pressure over the left cheondoism area and into her left ear. Patient states this only lasted a few minutes. Patient states she took baby aspirin tonight. Patient states she also took half tablet of her enalapril tonight. Patient denies any chest pain. Patient denies any nausea or vomiting. Patient denies any shortness of breath or cough. Patient admits to some dysuria and urinary frequency. Patient also admits to some hematuria. Patient states she had a recent D&C and has been having some hematuria since that time. [facility] Medical History Anxiety Arthritis Asbestos exposure Asthma Atherosclerosis of coronary artery of [place] heart without angina pectoris Benign paroxysmal positional vertigo Bone spur Cardiology follow-up encounter Dyspnea Elevated triglycerides with high cholesterol Epistaxis Essential (primary) hypertension History of echocardiogram History of hemorrhoids History of stress test IBS (irritable bowel syndrome) Leg cramps Pure hypercholesterolemia Secondary pulmonary arterial hypertension Shoulder pain Sleep apnea Stomach ulcer Wears glasses Home Medications lorazepam 0.5 mg tablet 0.5 mg PO DAILY PRN PRN Anxiety 10/18/16 [History Last Taken 07/22/23] calcium carbonate 500 mg calcium (1,250 mg) tablet (Calcium 500) 1,000 mg PO QDAY 10/23/17 [History Last Taken Unknown] cholecalciferol (vitamin D3) 125 mcg (5,000 unit) capsule 5,000 unit PO QDAY 10/23/17 [History Last Taken Unknown] loratadine 10 mg tablet (Allergy Relief (loratadine)) 10 mg PO QDAY 10/23/17 [History Last Taken Unknown] magnesium 250 mg tablet 250 mg PO QDAY 10/23/17 [History Last Taken Unknown] omeprazole 20 mg capsule,delayed release 20 mg PO QDAY PRN Heartburn 10/23/17 [History Last Taken 07/22/23] zinc gluconate 50 mg tablet 50 mg PO DAILY 07/24/21 [History Last Taken Unknown] blood pressure monitor (Blood Pressure Kit) #1 ea 07/24/22 [Rx Last Taken Unknown] propranolol 60 mg capsule,24 hr,extended release 60 mg PO QDAY #90 caps 11/01/22 [Rx Last Taken 07/22/23] rosuvastatin 5 mg tablet (Crestor) 5 mg PO .3xweek #36 tabs 03/03/23 [Rx Last Taken Unknown] enalapril maleate 2.5 mg tablet 1.25 mg PO DAILY 04/23/23 [History Last Taken 07/22/23] niacin 100 mg tablet 100 mg PO .as needed 04/23/23 [History Last Taken Unknown] vitamins-lipotropics 200 mg-100 mg tablet (Ear Care) 1 tab PO DAILY 07/15/23 [History Last Taken Unknown] nitrofurantoin monohydrate/macrocrystals 100 mg capsule 100 mg PO Q12 #10 CAPSULES 08/11/23 [Rx Last Taken Unknown] Allergy/AdvReac Type Severity Reaction Status Date / Time risedronate sodium Allergy Other Verified 08/05/23 15:22 [From Actonel] strawberry Allergy Hives Verified 08/05/23 15:22 fish oil AdvReac skin Verified 08/05/23 15:22 erruptions onion AdvReac Vomiting Verified 08/05/23 15:22 propoxyphene HCl AdvReac Nausea/Vom/ Verified 08/05/23 15:22 [From Darvon] Diarrhea [id number] Reductase AdvReac Other Verified 08/05/23 15:22 Inhibitor Family History Mother CVA (cerebral vascular accident) Myocardial infarction, Onset Age: 93 Breast cancer Father Myocardial infarction [place] age 60 CAD (coronary artery disease) CABG x 3 Cancer Heart disease Hypertension Brother Heart disease Hypertension Surgical History H/O dilation and curettage H/O eye surgery H/O tubal ligation History of back surgery History of coronary artery stent placement (01/07/18) History of tonsillectomy S/P trigger finger release Social History household members: none current occupational status: retired Smoking Status: Former smoker quit date: 06/23/07 pack-years: 12 alcohol intake: current alcohol intake frequency: a few times a month substance use type: does not use caffeine: Yes Type: carbonated beverages seatbelt use: always do you feel safe at home: Yes ROS ROS ED Constitutional Constitutional ED: Denies chills or fever(s) Eyes Eyes: Denies blurry vision or change in vision ENT ENT ED: Denies rhinorrhea or sore throat Cardiovascular Cardiovascular: Denies chest pain or palpitations Respiratory/Chest Respiratory/Chest: Denies cough or dyspnea Gastrointestinal Gastrointestinal: Denies nausea or vomiting Genitourinary Genitourinary ED: Reports dysuria, hematuria and urinary frequency Musculoskeletal Musculoskeletal: Denies back pain or neck pain Integumentary Denies abscess or rash Neurologic Neurologic: Reports headache(s); Denies weakness Allergic/Immunologic Allergic/Immunologic ED: Denies mouth swelling or urticaria EXAM Physical Exam Const Vital Signs: 08/11/23 00:29 08/11/23 00:39 08/11/23 02:22 Temperature 97.9 F Temperature Source Oral Pulse Rate 64 64 Respiratory Rate 14 17 Respiratory Effort Normal Respiratory Pattern Normal Blood Pressure 214/77 H 170/71 H Blood Pressure Mean 122 104 Pulse Ox 99 98 Oxygen Delivery Method Room Air Room Air Positive well nourished and well developed General Appearance ED: well developed and NAD HEENT Reports moist mucous membranes HEENT Narrative: There is no tenderness over the left temporal artery. Negative for trauma or tenderness Neck supple and no JVD Resp normal respiratory effort and clear to auscultation bilaterally Cardio regular rate and regular rhythm GI non-tender and non-distended Palpation: soft Extremity normal to inspection General Extremety ED: Negative for edema or tenderness General Extremity: Negative for edema Neuro oriented x3, CN's II-XII intact bilaterally and no sensory deficits noted Sensorium / Orientation: alert Motor Exam: strength 5/5 throughout Psych mental status grossly normal MDM MDM MDM Narrative Medical decision making narrative: Differential diagnosis includes hypertensive urgency, hypertensive emergency, stroke, urinary tract infection, electrolyte abnormality, anemia, and anxiety. EKG will be obtained to assess for cardiac dysrhythmia and cardiac ischemia. CT scan of the brain will be obtained to assess for intracranial bleeding and stroke. Chest x-ray will be obtained to assess for pneumonia, pneumothorax, cardiomegaly, and widened mediastinum. CBC will be obtained to assess for leukocytosis and anemia. Basic metabolic profile will be obtained to assess for electrolyte abnormality and renal function. Urinalysis will be obtained to assess for urinary tract infection and hematuria. High-sensitivity troponin will be obtained to assess for cardiac ischemia. Lab Data Attestation: I reviewed the patient's lab results. Lab results narrative: CBC was reviewed and was within normal limits. Basic metabolic profile was reviewed and was within normal limits. High-sensitivity troponin was reviewed and was normal at 4. Urinalysis was reviewed. Leukocyte esterase was 500 with 10-25 white blood cells. Labs: Laboratory Results - last 24 hr 08/11/23 08/11/23 00:49 01:20 WBC 10.7 RBC 4.47 Hgb 13.6 Hct 42.0 MCV 94.0 MCH 30.4 MCHC 32.4 RDW Std Deviation 42.8 RDW Coeff of [place] 12.5 Plt Count 305 MPV 9.5 Immature Gran % (Auto) 0.300 Neut % (Auto) 51.7 Lymph % (Auto) 41.0 [place] % (Auto) 4.4 Eos % (Auto) 2.2 Baso % (Auto) 0.4 Absolute Neuts (auto) 5.5 Absolute Lymphs (auto) 4.37 Nucleated RBC % 0 Sodium 140 Potassium 4.4 Chloride 107 Carbon Dioxide 30.0 Anion Gap 3 L BUN 13 Creatinine 0.72 Estim Creat Clear Calc 54.74 Est GFR (MDRD) Af Amer 101 Est GFR (MDRD) Non-Af 83 BUN/Creatinine Ratio 18.0 Glucose 118 H Calcium 9.9 Troponin I High Sens 4 Urine Color Yellow Urine Clarity Clear Urine pH 7.0 Ur Specific [place] 1.010 Urine Protein Negative Urine Glucose (UA) Normal Urine Ketones Negative Urine Occult Blood 10 H Urine Nitrite Negative Urine Bilirubin Negative Urine Urobilinogen Normal Ur Leukocyte Esterase 500 H Urine RBC 0 SEEN Urine WBC 10-25 SEEN Ur Squamous Epith Cells 0 SEEN Urine Bacteria 0 SEEN Urine Mucus 0 SEEN Radiography Chest X-Ray - ED: 2 View, Read by ED Physician, Read by Radiologist and No Acute Disease Diagnostic Testing: Clinical Impression(s) from Imaging Studies Brain CT 08/11/23 01:15 IMPRESSION: No acute abnormality. Chronic microvascular ischemic disease. Electronically Signed: Esha Craft MD at 2:06 EST , Chest X-Ray 08/11/23 01:16 IMPRESSION: No evidence of active intrathoracic disease. Electronically Signed: Esha Craft MD at 2:10 EST , PA and lateral chest x-ray was obtained. There are 2 views. On my independent interpretation, lung ahuja are clear. There is normal cardiac silhouette. Bony thorax is normal. There is no acute process noted. Radiologist also interpreted the x-ray and agrees. CT scan of the brain was obtained. There is no acute intracranial abnormality. This was interpreted by the radiologist and was also independently reviewed by myself. EKG Initial EKG: Attestation: I personally reviewed and interpreted this EKG as follows: Interpretation: Sinus Rhythm (62) and Non-Specific ST Changes Comments: EKG was obtained. On my independent interpretation, it showed a normal sinus rhythm with a rate of 62. NH interval, QRS interval, and QTc intervals were all normal. [place] was borderline left axis at -19. There are nonspecific ST-T wave changes. Prior EKG tracings: available for review Prior: Unchanged (07/15/2023) Additional Tests and Interventions Additional Tests or Interventions: Urine culture was ordered. Treatment and Re-Evaluation :: Patient is feeling better on reevaluation. Patient is advised of findings. Patient's blood pressure was continuing to improve. Patient was given a dose of Bactrim here. Patient given a prescription for Bactrim. Patient was instructed to drink plenty of fluids. Patient was instructed to follow-up with her primary care physician in 5 to 7 days. Patient was instructed to continue to monitor her blood pressure. Patient understood and was agreeable with the plan. All questions were answered. Discharge Plan Triage Chief Complaint: Hypertension ED Provider: Konstantin Leiva Dx/Rx/DC Orders Clinical Impression: Urinary tract infection, Essential (primary) hypertension Instructions: ED Hypertension, Established, ED Cystitis Female Adult Prescriptions: New nitrofurantoin monohyd/m-cryst [nitrofurantoin monohyd/m-cryst] 100 mg capsule 100 mg PO Q12 Qty: 10 0RF No Action loratadine [Allergy Relief (loratadine)] 10 mg tablet 10 mg PO QDAY omeprazole 20 mg capsule,delayed release(DR/EC) 20 mg PO QDAY PRN (Reason: Heartburn) cholecalciferol (vitamin D3) 5,000 unit capsule 5,000 unit PO QDAY calcium carbonate [Calcium 500] 500 mg calcium (1,250 mg) tablet 1,000 mg PO QDAY magnesium 250 mg tablet 250 mg PO QDAY zinc gluconate 50 mg tablet 50 mg PO DAILY niacin 100 mg tablet 100 mg PO .as needed (DME) blood pressure monitor [Blood Pressure Kit] Kit See Rx Instructions .Route Qty: 1 0RF Rx Instructions: As directed enalapril maleate 2.5 mg tablet 1.25 mg PO DAILY lorazepam 0.5 MG tablet 0.5 mg PO DAILY PRN PRN (Reason: Anxiety) Ear Care 200-100 mg tablet 1 tab PO DAILY propranolol 60 mg capsule,extended release 24 hr 60 mg PO QDAY Qty: 90 3RF rosuvastatin [Crestor] 5 mg tablet 5 mg PO .3xweek Qty: 36 3RF Primary Care Provider: Emily Sheikh Referrals: Emily Sheikh DO [Primary Care Provider] - 5-7 Days Disposition Disposition: Home, Self Care
--- NOTE | 2023-08-11 01:15 | CT_ITS ---
INDICATION: Headache EXAMINATION: CT BRAIN - CT Head or Brain W/O Contrast Injection TECHNIQUE: Multiple axial images were obtained of the head without intravenous contrast. A radiation dose optimization technique was used for this scan. IV Contrast dosage and agent: None. RADIATION DOSAGE (If Supplied By Facility): CTDIvol = ( 44.99 ) mGy, DLP = ( 779.24 ) mGycm COMPARISON: None. FINDINGS: BRAIN: No acute bleed. No edema. Mild decreased attenuation in the periventricular white matter bilaterally. Gary-white matter differentiation is maintained. Arterial calcifications. VENTRICLES AND SULCI: Not dilated. EXTRA-AXIAL: No hemorrhage, fluid collection, or mass. CALVARIUM / SKULL BASE: Unremarkable. FACE/SINUSES: Unremarkable. SOFT TISSUES: Unremarkable. CT/Brain/Head without Contrast IMPRESSION: No acute abnormality. Chronic microvascular ischemic disease. Electronically Signed: Esha Craft MD at 2:06 EST ,
--- NOTE | 2023-08-11 01:16 | RAD_ITS ---
INDICATION: Hypertension EXAMINATION/TECHNIQUE: X-RAY - XR Chest 2 Views COMPARISON: 07/03/2023 FINDINGS: LINES/DEVICES: None. LUNGS: No consolidation. No pneumothorax. MEDIASTINUM: Aorta is atherosclerotic. CARDIAC SILHOUETTE: Not enlarged. BONES AND SOFT TISSUES: No acute abnormalities. Degenerative changes in the dorsal spine. Surgical hardware in the lumbar spine partially included. RAD/Chest PA and Lateral IMPRESSION: No evidence of active intrathoracic disease. Electronically Signed: Esha Craft MD at 2:10 EST ,
--- NOTE | 2023-08-11 01:16 | EKG12_ITS ---
Test Reason : HTN Blood Pressure : / mmHG Vent. Rate : 062 BPM Atrial Rate : 062 BPM P-R Int : 196 ms QRS Dur : 084 ms QT Int : 410 ms P-R-T Axes : 038 -19 012 degrees QTc Int : 416 ms Normal sinus rhythm Nonspecific T wave abnormality Abnormal ECG Confirmed by TADEO METCALF, KATHERIN ([id number]), photo editor KOBI RYDER ([id number]) on 08/11/2023 10:24:33 AM Referred By: ANTONIO Confirmed By:KATHERIN PIEDRA MD
[2023-08-11 01:29] LABS: Bacteria 0 SEEN /hpf (None Seen); Mucous, Urine 0 SEEN /hpf (<or=2+); Red Blood Cells-Urine 0 SEEN /hpf (0-5); Squamous Epithelial Cells - UA 0 SEEN /hpf (5-10)
[2023-08-11 01:37] LABS: Glucose, Dipstick Normal (Normal); Ketone-Dipstick Negative (Negative); Leukocyte Esterase-Dipstick 500 /ul (Negative); Nitrite-Dipstick Negative (Negative); Occult Blood-Urine 10 /ul (Negative); Protein-Dipstick Negative (Negative); Urine Bilirubin Dipstick Negative (Negative); Urine Urobilinogen Normal (Normal)
[2023-08-11 01:45] LABS: Absolute Lymphocyte Count 4.37 X10^3/uL (0.83-4.51); Absolute Neutrophil Count 5.5 X10^3/uL (2.0-7.7); Basophil# 0.04 X10^3/uL; Basophil% 0.4 % (0-1); Eosinophil# 0.24 X10^3/uL; Eosinophils% 2.2 % (0-5); Hemoglobin 13.6 g/dL (12.0-15.0); Lymphocyte # 4.37 X10^3/ul (0.83-4.51); Mean Corp Hgb Conc 32.4 g/dL (32-36); Mean Corpuscular Hgb 30.4 pg (27.0-32.0); Mean Platelet Vol. 9.5 fl (6.2-12.0); Monocyte# 0.47 X10^3/uL; Monocyte% 4.4 % (0-10); NRBC Flagged by Analyzer 0 % (0-5); Neutrophil # 5.52 X10^3/uL (2.7-7.7); Neutrophil % 51.7 % (47-70); Platelet Count 305 K/mm3 (150-450); RBC Distribution Width CV 12.5 % (11.6-14.6); RBC Distribution Width SD 42.8 fl (35.1-43.9); Red Blood Count 4.47 M/mm3 (4.2-5.4); White Blood Count 10.7 K/mm3 (4.4-11.0)
[2023-08-11 01:48] LABS: Color, Urine Yellow (Yellow); Urine Clarity Clear (Clear); White Blood Cells 10-25 SEEN /hpf (0-5)
[2023-08-11 01:50] LABS: Anion Gap 3 (5-15); BUN 13 mg/dL (7-18); Calcium,Total 9.9 mg/dL (8.5-10.1); Chloride 107 mmol/L (98-107); Creatinine, Serum 0.72 mg/dL (0.55-1.02); EST Glomerular Filtration Rate 83 mL/min (>60); Est Glom Filt Rate - Afr Amer 101 mL/min (>60); Estimated Creatinine Clearance 54.74 ml/min; Glucose 118 mg/dL (74-106); Potassium 4.4 mmol/L (3.5-5.1); Sodium Level 140 mmol/L (136-145); Troponin-I HS 4 pg/mL (3.0-54.0)
[2023-08-11 02:22] VITALS: BP 170/71; PULSE 64; RESP 17; O2SAT 98
[2023-08-11 03:15] VITALS: BP 166/73; PULSE 62; RESP 18; TEMP 36.6; O2SAT 97
[2023-08-11] MEDS: Nitrofurantoin Macrocrystals 100 MG Capsule PO (03:17)
== END 2023-08-11 03:26 | disposition home or self-care (01) ==
PROVIDERS: Emergency Provider Emergency Medicine; PCP Internal Medicine; Visit Provider Emergency Medicine
DX: N39.0 Urinary tract infection, site not specified (principal); Z87.891 Personal history of nicotine dependence; I10 Essential (primary) hypertension; R31.9 Hematuria, unspecified; R30.0 Dysuria; J45.909 Unspecified asthma, uncomplicated; I25.10 Atherosclerotic heart disease of native coronary artery without angina pectoris; E78.00 Pure hypercholesterolemia, unspecified; R35.0 Frequency of micturition; R51.9 Headache, unspecified
CPT/HCPCS: 70450; 71046; 80048; 81001; 84484; 85025; 87077; 87086; 87088; 87186; 93005; 99284; A4216

== ENCOUNTER → 2024-05-07 | Outpatient (CLI) | payer MEDICARE, SELFPAY ==
[2017-12-17 13:40] VITALS: BMI 30.5
[2024-03-22 11:09] VITALS: BMI 30.5
--- NOTE | 2024-05-07 11:26 | BI_ITS ---
MAMMOGRAPHY - BILATERAL SCREENING REASON FOR EXAM: Female, 78 years old. Routine annual screening examination. PERTINENT HISTORY: Mother with breast cancer. TECHNIQUE: Digital bilateral breast sheri (3D mammographic acquisition) in the CC and MLO projections. 2-D mediolateral oblique (MLO) and craniocaudad (CC) views of both breasts were obtained. CAD: Full Field Digital Mammography with Computer Added Detection was performed. COMPARISON: Comparison is made with prior study dated May 02, 2022 and December 16, 2019. FINDINGS: Breast Composition: There are scattered areas of fibroglandular density. There are no dominant masses or suspicious calcifications. Stable bilateral axillary lymph nodes. No other significant abnormalities are identified. There has been no significant change since the prior study. BI/SCRN MAMM (CAD)W/SHERI BILAT IMPRESSION: Stable bilateral screening mammogram. Yearly follow-up mammogram recommended. (A) ASSESSMENT CATEGORY: BIRADS Category 2: Benign. A letter regarding these results will be sent to the patient by the facility within 30 days. Approximately 10% of breast cancers are not detected by mammography. A normal mammogram should not delay biopsy of a clinically suspicious abnormality. [id number] Electronically Signed: Arnaldo Magallon MD at 12:33 EST ,
--- NOTE | 2024-05-07 11:26 | BD_ITS ---
STUDY: DUAL ENERGY X-RAY ABSORPTIOMETRY / DXA REASON FOR EXAM: Female, 78 years old. 733.00OsteoporosisBONE DENSITY REASON FOR EXAM TECHNIQUE: Bone Mineral Density (BMD) measurements of lumbar spine and bilateral hips were obtained. COMPARISON: Comparison is made with prior study dated May 02, 2022. FINDINGS: Lumbar Spine (L1-L4): g/cm2 (0.735) / T-score (-2.2) / Z-score (0.2) Findings are suggestive of osteopenia with a high fracture risk. Left Femur Total: g/cm2 (0.675) / T-score (-2.2) / Z-score (-0.3) Left Femoral Neck: g/cm2 (0.482) / T-score (-3.3) / Z-score (-1.1) Right Femur Total: g/cm2 (0.775) / T-score (-1.4) / Z-score (0.6) Right Femoral Neck: g/cm2 (0.549) / T-score (-2.7) / Z-score (-0.5) The T-Scores on the most recent prior examination were: Lumbar Spine (L1-L4): There has been worsening of bone density since the previous examination. Left Femur Total: which represents a worsening of 4.3%. Right Femur Total: which represents a worsening of 2.2%. BD/Dexa Bone Density Study IMPRESSION: The patient is considered osteoporotic as outlined below according to World Benny Organization (WHO) criteria with a high fracture risk. There has been worsening of bone density since the previous examination. Reference Information: The T-score is the number of standard deviations above or below the standard which is normal for young adults at their peak bone mineral density. The World Health Organization (WHO) interprets the T-scores as follows: Above -1 Normal bone density Between -1 and -2.5 Osteopenia Equal to / or below -2.5 Osteoporosis As a practical clinical guideline, osteopenia may be graded as follows: Mild -1 through -1.5 Moderate -1.6 through -2.0 Severe -2.1 through -2.4 The Z-score is the number of standard deviations above or below age-matched controls. A Z-score of less than -1.5 would be considered abnormal. References: 1. NIH Osteoporosis and Related Bone Diseases www osteo.org 2. International Society for Clinical Densitometry www iscd.org 3. National Osteoporosis Foundation www nof.org Electronically Signed: Arnaldo Magallon MD at 14:53 EST ,
== END | disposition home or self-care (01) ==
LOC: OPBD 11:22
PROVIDERS: PCP Internal Medicine; Referring Provider Internal Medicine; Visit Provider Internal Medicine
DX: Z12.31 Encounter for screening mammogram for malignant neoplasm of breast (principal); Z80.3 Family history of malignant neoplasm of breast; Z78.0 Asymptomatic menopausal state
CPT/HCPCS: 77063; 77067; 77080

== ENCOUNTER 2024-11-03 17:27 | Emergency (ER) | payer MEDICARE, SELFPAY ==
[2024-03-22 11:09] VITALS: BMI 30.5
[2024-11-03 17:28] VITALS: BP 177/76; PULSE 76; RESP 16; TEMP 36.6; O2SAT 98; BMI 29.8
--- NOTE | 2024-11-03 18:13 | EDS_ITS ---
HPI History of Present Illness Chief Complaint: Lower Extremity Injury [facility] Medical History Anxiety Arthritis Asbestos exposure Asthma Atherosclerosis of coronary artery of [place] heart without angina pectoris Benign paroxysmal positional vertigo Bone spur Cardiology follow-up encounter Dyspnea Elevated triglycerides with high cholesterol Epistaxis Essential (primary) hypertension History of echocardiogram History of hemorrhoids History of stress test IBS (irritable bowel syndrome) Leg cramps Pure hypercholesterolemia Secondary pulmonary arterial hypertension Shoulder pain Sleep apnea Stomach ulcer Wears glasses Home Medications ?Medication ?Instructions ?Recorded ?Last Taken ?Type lorazepam 0.5 mg tablet 0.5 mg PO DAILY PRN PRN Anxi ety 10/18/16 07/22/23 Hist ory calcium carbonate (Calcium 500) 1,000 mg PO QDAY 10/23 Unknown History cholecalciferol (vitamin D3) 125 5,000 unit PO QDAY Unknown History mcg (5,000 unit) capsule loratadine 10 mg tablet (Allergy 10 mg PO QDAY 8 Unknown History Relief (loratadine)) magnesium 250 mg tablet 250 mg PO QDAY 10/23/17 Unkn own History omeprazole 20 mg capsule,delayed 20 mg PO QDAY PRN Hea rtburn 10/23/17 07/22/23 History release zinc gluconate 50 mg tablet 50 mg PO DAILY 07/24/21 Un known History blood pressure monitor (Blood #1 ea 07/24/22 Unknown R x Pressure Kit) niacin 100 mg tablet 100 mg PO .as needed 3 Unknown History vitamins-lipotropics 200 mg-100 mg 1 tab PO DAILY 06/24 09/13 Unknown History tablet (Ear Care) nitrofurantoin 100 mg PO Q12 09/04/23 Unkno wn History monohydrate/macrocrystals 100 mg capsule rosuvastatin 5 mg tablet 5 mg PO .3xweek #36 tabs Unknown Rx enalapril maleate 2.5 mg tablet 1.25 mg (1/2 x 2.5 mg) PO BID #90 03/23/24 Unknown Rx tabs propranolol 60 mg capsule,24 60 mg PO QDAY #90 caps Unknown Rx hr,extended release Allergy/AdvReac Type Severity Reaction Status Date / Time risedronate sodium (From Allergy Other Verified 11/03/24 17:28 Actonel) strawberry Allergy Hives Verified 11/03/24 17:28 fish oil AdvReac skin Verified 11/03/24 17:28 erruptions onion AdvReac Vomiting Verified 11/03/24 17:28 propoxyphene HCl (From AdvReac Nausea/Vom/ Verified 11/03/24 17:28 Darvon) Diarrhea Nippnzu-PHR-CyH Reductase AdvReac Other Verified 11/03/24 17:28 Inhibitor Family History Mother CVA (cerebral vascular accident) Myocardial infarction, Onset Age: 93 Breast cancer Father Myocardial infarction [place] age 60 CAD (coronary artery disease) CABG x 3 Cancer Heart disease Hypertension Brother Heart disease Hypertension Surgical History H/O dilation and curettage H/O eye surgery H/O tubal ligation History of back surgery History of coronary artery stent placement (01/07/18) History of tonsillectomy S/P trigger finger release Social History household members: none current occupational status: retired Smoking Status: Former smoker quit date: 06/23/07 pack-years: 12 alcohol intake: current alcohol intake frequency: a few times a month substance use type: does not use caffeine: Yes Type: carbonated beverages seatbelt use: always do you feel safe at home: Yes EXAM Physical Exam Const Vital Signs: 11/03/24 17:28 11/03/24 21:28 Temperature 97.9 F 98.1 F Temperature Source Oral Oral Pulse Rate 76 62 Respiratory Rate 16 18 Blood Pressure 177/76 H 162/74 H Blood Pressure Mean 109 103 Pulse Ox 98 95 Oxygen Delivery Method Room Air Room Air MDM MDM MDM Narrative Medical decision making narrative: HISTORY OF PRESENT ILLNESS: Chief complaint: Left groin pain 79-year-old female history of hemorrhoids, anxiety and hypertension, hyperlipidemia presents with left groin pain. Notes started 1 week ago. No falls. No pain with movement of the hip. Notes some nausea and belly pain. No she thinks it is a hernia. Last bowel movement was yesterday. No melena hematochezia. No vomiting. Does note she was recently treated for UTI 2 weeks ago. Denies dysuria, hematuria REVIEW OF SYSTEMS: Pertinent positives: Left groin pain, nausea Pertinent negatives: Constipation PHYSICAL EXAM: Nursing triage notes reviewed, Vital signs reviewed Constitutional: please see [facility] HENT: MMM Eyes: Pupils equal round and reactive to light, Extraocular muscles intact Neck: No stridor, no JVD, full neck ROM Lungs: Clear to auscultation, No wheezing or rales. No increased work of breathing, no conversational dyspnea, no accessory muscle use, no nasal flaring. No respiratory distress noted Heart: Regular rate and rhythm, No murmurs, No rubs and No gallops, 2+ distal pulses (radial, femoral, posterior tibial) in all extremities Abdomen: Soft, there is no tenderness, rigidity, rebound or guarding, no obvious peritoneal signs, no palpable pulsatile abdominal masses, no auscultated abdominal bruit : No CVAT Extremities: No edema Neuro: No new focal neurological deficits, cranial nerves II through XII intact, 5/5 strength in all present extremities. Intact sensation to light touch in all present extremities, 2+ reflexes bilateral patella tendons. Skin: No rash or lesions noted MEDICAL DECISION MAKING: Chief Complaint: please see [facility] External records reviewed: Reviewed prior imaging. Factors affecting care:As per [facility] Social determinants of health: none History obtained from others: none Consults: none [facility] Narrative: Patient was initially hemodynamically stable, afebrile and nontoxic-appearing. Exam with freely reducible hernia left inguinal region. No obvious peritoneal signs. I considered the following differential diagnosis: AAA, small bowel obstruction, abdominal perforation, appendicitis, pancreatitis, hepatobiliary pathology (acute cholecystitis), mesenteric ischemia, pathology (ie nephrolithiasis, pyelonephritis). ALL IMAGES (IF OBTAINED) HAVE BEEN PERSONALLY REVIEWED AND INTERPRETED BY MYSELF. X-ray of the patient's hip and pelvis is read and reviewed person myself show no evidence obvious bony abnormality Lactate is wnl indicating no end-organ hypoperfusion and/or hypoxia. CBC without leukocytosis, severe anemia, no thrombocytopenia. Urinalysis shows no evidence of urinary inflammation suggestive of UTI CMP without evidence of acute kidney injury, significant electrolyte abnormality, anion gap to suggest end organ hypo-perfusion, no evidence of metabolic acidosis with a normal bicarbonate, no evidence of hepatobiliary obstructive pathology. Lipase slightly elevated but not consistent with acute pancreatitis CT scan abdomen pelvis shows no evidence of obvious incarcerated or strangulated hernia, no obvious inguinal hernia, no obvious diverticulitis The synthesis of the patient's history, physical exam, labs images suggest no acute life-limiting etiology. No clear etiology to explain patient's symptoms. Could be osteoarthritis. Instructed on Tylenol ibuprofen. Instructed on PCP follow-up. The patient and/or family, caregivers express understanding. The patient and/or family, caregivers agrees with the plan. Shared decision making: I will have a discussion with the patient and or visitors regarding risk/benefits of further testing or admission. They will be made aware of of the risk/benefits inherent in this decision they will be given the opportunity to voice understanding. Total critical care time today provided was at least 0 minutes. This excludes separately billable procedures. Critical care time (if documented) is secondary to the patient having high probability of clinically significant/life threatening deterioration in the patient's condition which required my urgent intervention. Impression: 1. Left lower quad abdominal pain 2. Left groin pain 3. Left hip pain 4. Left hip osteoarthritis Dispo: Discharge home This note was generated with [employer] dictation software. It may contain incorrect words, spelling, and punctuation that were not noted in review of the chart prior to signing. Lab Data Labs: Laboratory Results - last 24 hr 11/03/24 11/03/24 18:55 19:09 WBC 10.4 RBC 4.55 Hgb 14.0 Hct 41.0 MCV 90.1 MCH 30.8 MCHC 34.1 RDW Std Deviation 40.6 RDW Coeff of Kurtis 12.3 Plt Count 346 MPV 9.2 Immature Gran % (Auto) 0.400 Neut % (Auto) 51.5 Lymph % (Auto) 37.0 [place] % (Auto) 6.7 Eos % (Auto) 3.9 Baso % (Auto) 0.5 Absolute Neuts (auto) 5.4 Absolute Lymphs (auto) 3.86 Nucleated RBC % 0 Sodium 140 Potassium 4.1 Chloride 103 Carbon Dioxide 28.1 Anion Gap 9 BUN 15 Creatinine 0.76 Estim Creat Clear Calc 52.44 Est GFR (MDRD) Non-Af 80 BUN/Creatinine Ratio 19.7 Glucose 104 H Lactic Acid 1.1 Calcium 10.4 Total Bilirubin 0.28 AST 23 ALT 29 Alkaline Phosphatase 71 Total Protein 7.3 Albumin 4.2 Globulin 3.1 Albumin/Globulin Ratio 1.3 Lipase 82 H Urine Color Yellow Urine Clarity Sl. Cloudy Urine pH 7.0 Ur Specific [place] 1.015 Urine Protein 15 H Urine Glucose (UA) Normal Urine Ketones Negative Urine Occult Blood Negative Urine Nitrite Negative Urine Bilirubin Negative Urine Urobilinogen Normal Ur Leukocyte Esterase 100 H Urine RBC 0-5 SEEN Urine WBC 10-25 SEEN Ur Squamous Epith Cells 0-5 SEEN Urine Bacteria 0 SEEN Urine Mucus 0 SEEN Radiography Diagnostic Testing: Clinical Impression(s) from Imaging Studies Abdomen/Pelvis CT 11/03/24 20:20 IMPRESSION: 1. No bowel obstruction or pneumoperitoneum. 2. Small esophageal hiatal hernia. 3. Hepatomegaly with fatty infiltration. 4. Umbilical hernia containing fat. Reading Location: [facility] Hip/Pelvis X-Ray 11/03/24 21:24 IMPRESSION: See above Reading Location: [facility] Discharge Plan Triage Chief Complaint: Lower Extremity Injury ED Provider: Jung Mckeon Dx/Rx/DC Orders Instructions: Abdominal Pain Prescriptions: No Action loratadine [Allergy Relief (loratadine)] 10 mg tablet 10 mg PO QDAY omeprazole 20 mg capsule,delayed release(DR/EC) 20 mg PO QDAY PRN (Reason: Heartburn) cholecalciferol (vitamin D3) 5,000 unit capsule 5,000 unit PO QDAY calcium carbonate [Calcium 500] 500 mg calcium (1,250 mg) tablet 1,000 mg PO QDAY magnesium 250 mg tablet 250 mg PO QDAY zinc gluconate 50 mg tablet 50 mg PO DAILY niacin 100 mg tablet 100 mg PO .as needed (DME) blood pressure monitor [Blood Pressure Kit] Kit See Rx Instructions .Route Qty: 1 0RF Rx Instructions: As directed nitrofurantoin monohyd/m-cryst 100 mg capsule 100 mg PO Q12 lorazepam 0.5 MG tablet 0.5 mg PO DAILY PRN PRN (Reason: Anxiety) Ear Care 200-100 mg tablet 1 tab PO DAILY rosuvastatin 5 mg tablet 5 mg PO .3xweek Qty: 36 3RF enalapril maleate 2.5 mg tablet 1.25 mg PO BID Qty: 90 3RF propranolol 60 mg capsule,extended release 24 hr 60 mg PO QDAY Qty: 90 3RF Primary Care Provider: Emily Sheikh Referrals: Emily Sheikh DO [Primary Care Provider] - Activity Restrictions/Additional Instructions: Thank you for trusting us with your care today! Your CT scan did not show evidence of a hernia, incarcerated hernia, bowel obstruction or other life-threatening emergency. Your labs are also reassuring. Your x-ray of the hip and pelvis were negative for bony injury but there was some osteoarthritis which may be contributing to your pain Please take Tylenol (2 pills, 650 mg), ibuprofen (2 pills, 400 mg) every 6 hours as needed for pain and fever control. Please return to the emergency department if your symptoms change or worsen. Please follow with your primary care physician for further outpatient evaluation and management. Print Language: Serbian Disposition Disposition: Home, Self Care
[2024-11-03] MEDS: Ondansetron 4 MG/2 ML Vial IV (19:04)
[2024-11-03] MEDS: 0.9% Normal Saline (1000mL) 1,000 ML 999 ML IV (19:04)
[2024-11-03] MEDS: Ketorolac 15 MG/ML Vial IV (19:04)
[2024-11-03 19:15] LABS: Bacteria 0 SEEN /hpf (None Seen); Mucous, Urine 0 SEEN /hpf (<or=2+)
[2024-11-03 19:27] LABS: Absolute Lymphocyte Count 3.86 X10^3/uL (0.83-4.51); Absolute Neutrophil Count 5.4 X10^3/uL (2.0-7.7); Basophil# 0.05 X10^3/uL; Basophil% 0.5 % (0-1); Eosinophil# 0.41 X10^3/uL; Eosinophils% 3.9 % (0-5); Lymphocyte # 3.86 X10^3/ul (0.83-4.51); Mean Corp Hgb Conc 34.1 g/dL (32-36); Mean Corpuscular Hgb 30.8 pg (27.0-32.0); Mean Corpuscular Volume 90.1 fL (81-99); Mean Platelet Vol. 9.2 fl (6.2-12.0); Monocyte% 6.7 % (0-10); NRBC Flagged by Analyzer 0 % (0-5); Neutrophil # 5.38 X10^3/uL (2.7-7.7); Neutrophil % 51.5 % (47-70); Platelet Count 346 K/mm3 (150-450); RBC Distribution Width CV 12.3 % (11.6-14.6); RBC Distribution Width SD 40.6 fl (35.1-43.9); Red Blood Count 4.55 M/mm3 (4.2-5.4); White Blood Count 10.4 K/mm3 (4.4-11.0)
[2024-11-03 19:44] LABS: Color, Urine Yellow (Yellow); Glucose, Dipstick Normal (Normal); Ketone-Dipstick Negative (Negative); Leukocyte Esterase-Dipstick 100 /ul (Negative); Nitrite-Dipstick Negative (Negative); Occult Blood-Urine Negative /ul (Negative); Protein-Dipstick 15 mg/dl (Negative); Specific Gravity, Urine 1.015 (1.002-1.030); Urine Bilirubin Dipstick Negative (Negative); Urine Clarity Sl. Cloudy (Clear); Urine Urobilinogen Normal (Normal)
[2024-11-03 19:45] LABS: Lactic Acid 1.1 mmol/L (0.0-2.0)
[2024-11-03 19:47] LABS: ALB/GLOB Ratio 1.3 RATIO (0.9-2.4); AST(SGOT) 23 U/L (<=31); Alanine Aminotransfer ALT/SGPT 29 U/L (<=34); Albumin, Serum 4.2 g/dL (3.4-4.8); Alkaline Phosphatase 71 U/L (35-104); Anion Gap 9 (5-15); BUN 15 mg/dL (4-19); BUN/Creat Ratio 19.7 RATIO (10-20); Calcium,Total 10.4 mg/dL (7.6-11.0); Carbon Dioxide 28.1 mmol/L (21.0-32.0); Chloride 103 mmol/L (98-108); Creatinine, Serum 0.76 mg/dL (0.70-1.20); EST Glomerular Filtration Rate 80 (>60); Estimated Creatinine Clearance 52.44 ml/min (50-250); Globulin 3.1 g/dL (2.2-4.2); Glucose 104 mg/dL (70-99); Lipase 82 U/L (13-75); Potassium 4.1 mmol/L (3.3-5.1); Protein, Total 7.3 g/dL (5.9-8.4); Sodium Level 140 mmol/L (133-145); Total Bilirubin 0.28 mg/dL (0.00-1.30)
--- NOTE | 2024-11-03 20:20 | CT_ITS ---
EXAM: CT Abdomen and Pelvis With Intravenous Contrast CLINICAL INDICATION: LEFT LOWER QUADRANT ABDOMINAL PAIN ? INCARCERATED TECHNIQUE: Axial computed tomography images of the abdomen and pelvis with intravenous contrast. This CT exam was performed using one or more of the following dose reduction techniques: automated exposure control, adjustment of the mA and/or kV according to patient size, and/or use of iterative reconstruction technique. COMPARISON: No relevant prior studies available. FINDINGS: LUNG BASES: Unremarkable. No mass. No consolidation. MEDIASTINUM: Small esophageal hiatal hernia. ABDOMEN: LIVER: Hepatomegaly with fatty infiltration. GALLBLADDER AND BILE DUCTS: Unremarkable. No calcified stones. No ductal dilation. PANCREAS: Unremarkable. No mass. No ductal dilation. SPLEEN: Unremarkable. No splenomegaly. ADRENALS: Unremarkable. No mass. KIDNEYS AND URETERS: Unremarkable. No solid mass. No hydronephrosis. STOMACH AND BOWEL: Unremarkable. No mucosal thickening. No bowel obstruction or pneumoperitoneum. PELVIS: APPENDIX: No findings to suggest acute appendicitis. BLADDER: Unremarkable. No mass. REPRODUCTIVE: Bilateral tubal ligation. ABDOMEN and PELVIS: INTRAPERITONEAL SPACE: See above. BONES/JOINTS: No acute fracture. No dislocation. SOFT TISSUES: Umbilical hernia containing fat. VASCULATURE: Scattered calcified atherosclerotic disease of aorta. No abdominal aortic aneurysm. LYMPH NODES: Unremarkable. No enlarged lymph nodes. OTHER FINDINGS: Posterior fusion of L4-[address]/Abdomen/Pelvis WITH Contrast IMPRESSION: 1. No bowel obstruction or pneumoperitoneum. 2. Small esophageal hiatal hernia. 3. Hepatomegaly with fatty infiltration. 4. Umbilical hernia containing fat. Reading Location: [id number]
[2024-11-03 20:36] LABS: Red Blood Cells-Urine 0-5 SEEN /hpf (0-5); Squamous Epithelial Cells - UA 0-5 SEEN /hpf (5-10); White Blood Cells 10-25 SEEN /hpf (0-5)
--- NOTE | 2024-11-03 21:24 | RAD_ITS ---
PROCEDURE: HIP, UNI W/ PELVIS 2-3 VIEWS 11/03/2024 REASON FOR EXAM: LEFT HIP PAIN TECHNIQUE: Three views of the left hip COMPARISON: None FINDINGS: No acute fracture or dislocation. Mild-moderate osteoarthritis. No focal soft tissue abnormality. No lytic or blastic lesion. Postoperative changes lower lumbar fusion. Status post tubal ligation. Dense contrast within the urinary bladder RAD/HIP, UNI W/ Pelvis 2-3 Views IMPRESSION: See above Reading Location: [facility]
[2024-11-03 21:28] VITALS: BP 162/74; PULSE 62; RESP 18; TEMP 36.7; O2SAT 95
[2024-11-03 23:07] VITALS: BP 177/77; PULSE 61; RESP 16; TEMP 36.6; O2SAT 99
== END 2024-11-03 23:08 | disposition home or self-care (01) ==
PROVIDERS: Emergency Provider Emergency Medicine; PCP Internal Medicine; Visit Provider Emergency Medicine
DX: R10.32 Left lower quadrant pain (principal); M16.12 Unilateral primary osteoarthritis, left hip; E78.00 Pure hypercholesterolemia, unspecified; I10 Essential (primary) hypertension; I25.10 Atherosclerotic heart disease of native coronary artery without angina pectoris; Z87.891 Personal history of nicotine dependence; F41.9 Anxiety disorder, unspecified; J45.909 Unspecified asthma, uncomplicated; Z79.899 Other long term (current) drug therapy; R10.2 Pelvic and perineal pain
CPT/HCPCS: 73502; 74177; 80053; 81001; 83605; 83690; 85025; 96361; 96374; 96375; 99283; Q9967; A4216; J2405

== ENCOUNTER 2024-12-29 07:39 | Day surgery (SDC) | payer MEDICARE, SELFPAY ==
[2024-03-22 11:09] VITALS: BMI 30.5
--- NOTE | 2024-12-27 12:52 | PAT.ANE_ITS ---
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 When Was Last Pacemaker Check QUESTION #4 FULL TEXT: You/Your Family Experience fever (hyperthermia) with Anesthesia Last Oral Intake Last Oral intake: Last Oral Intake NPO since Meds taken in AM with sips of water? 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 Has anyone observed you stop breathing during sleep? STOP Results Positive 12/27/24 12:41 QUESTION #5 FULL TEXT : Do you snore loudly (louder than talking or can be heard through closed doors)? 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 Specify any problems Hx of Preganancy in last 3 N/A 12/27/24 12:41 Months Nurse Filling Out Transfusion NBUCHER 12/27/24 12:41 & Questions: Date: 12/27/24 12/27/24 12:41 Time: 12:42 12/27/24 12:41 Patient unable to answer at this time (ie. 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: /Reproductive Hx- set up mechanic coil winding machines Hx Now Gestational Age (in weeks): EDC: Hx Hx Para Hx Section SAB No 12/27/24 12:41 PFSH Medical History (Updated 12/27/24 @ 12:44 by Sandra Hernandez) Wears glasses Elevated triglycerides with high cholesterol Bone spur Sleep apnea Leg cramps History of echocardiogram History of stress test Cardiology follow-up encounter Epistaxis Asthma Stomach ulcer Shoulder pain History of hemorrhoids Arthritis Pure hypercholesterolemia Essential (primary) hypertension Atherosclerosis of coronary artery of [place] heart without angina pectoris Secondary pulmonary arterial hypertension Dyspnea Benign paroxysmal positional vertigo Anxiety IBS (irritable bowel syndrome) Asbestos exposure Home Medications ?Medication ?Instructions ?Recorded ?Last Taken ?Type lorazepam 0.5 mg tablet 0.5 mg PO DAILY PRN PRN Anxi ety 10/18/16 07/22/23 History calcium carbonate (Calcium 500) 1,000 mg PO QDAY 10/23 Unknown History cholecalciferol (vitamin D3) 125 5,000 unit PO QDAY Unknown History mcg (5,000 unit) capsule loratadine 10 mg tablet (Allergy 10 mg PO QDAY 8 Unknown History Relief (loratadine)) magnesium 250 mg tablet 250 mg PO QDAY 10/23/17 Unkn own History omeprazole 20 mg capsule,delayed 20 mg PO QDAY PRN Hea rtburn 10/23/17 07/22/23 History release zinc gluconate 50 mg tablet 50 mg PO DAILY 07/24/21 Un known History blood pressure monitor (Blood #1 ea 07/24/22 Unknown R x Pressure Kit) vitamins-lipotropics 200 mg-100 mg 1 tab PO DAILY 06/24 09/13 Unknown History tablet (Ear Care) enalapril maleate 2.5 mg tablet 1.25 mg (1/2 x 2.5 mg) PO BID #90 03/23/24 Unknown Rx tabs propranolol 60 mg capsule,24 60 mg PO QDAY #90 caps Unknown Rx hr,extended release ibuprofen 200 mg tablet 200 mg PO DAILY 12/06/2409/14 History rosuvastatin 5 mg tablet 5 mg PO MOWEFR 12/06/24 Unkn own History guaifenesin 400 mg tablet 400 mg PO DAILY 12/27/24 Unk nown History Allergy/AdvReac Type Severity Reaction Status Date / Time risedronate sodium (From Allergy Other Verified 12/27/24 12:36 Actonel) strawberry Allergy Hives Verified 12/27/24 12:36 fish oil AdvReac skin Verified 12/27/24 12:36 erruptions onion AdvReac Vomiting Verified 12/27/24 12:36 prednisone AdvReac Other Verified 12/27/24 12:36 propoxyphene HCl (From AdvReac Nausea/Vom/ Verified 12/27/24 12:36 Darvon) Diarrhea [id number] Reductase AdvReac Other Verified 12/27/24 12:36 Inhibitor Family History Mother CVA (cerebral vascular accident) Myocardial infarction, Onset Age: 93 Breast cancer Father Myocardial infarction [place] age 60 CAD (coronary artery disease) CABG x 3 Cancer Heart disease Hypertension Brother Heart disease Hypertension Surgical History (Updated 12/27/24 @ 12:44 by Sandra Hernandez) History of cardiac catheterization H/O dilation and curettage (~07/22/23) S/P trigger finger release History of coronary artery stent placement (01/07/18) History of back surgery H/O tubal ligation H/O eye surgery History of tonsillectomy Social History household members: none current occupational status: retired Smoking Status: Former smoker quit date: 06/23/07 pack-years: 12 alcohol intake: current alcohol intake frequency: a few times a month substance use type: does not use caffeine: Yes Type: carbonated beverages seatbelt use: always do you feel safe at home: Yes Recommendation Anesthesia Recommendation Anesthesia recommendation: OPTIMIZED for anesthesia
--- NOTE | 2024-12-27 15:13 | PAT.ANESEVAL ---
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 When Was Last Pacemaker Check QUESTION #4 FULL TEXT: You/Your Family Experience fever (hyperthermia) with Anesthesia Last Oral Intake Last Oral intake: Last Oral Intake NPO since Meds taken in AM with sips of water? Meds patient instructed to take am of surgery PONV PONV - account receivable clerk: PONV - account receivable clerk Female Yes 12/27/24 12:41 HX of Motion Sickness Yes 12/27/24 12:41 HX of N/V After Surgery No 12/27/24 12:41 Non-Smoker Yes 12/27/24 12:41 Duration of Surgery greater No 12/27/24 12:41 than 60 minutes Number of Risk Factors 3 12/27/24 12:41 PONV Score Moderate Risk 12/27/24 12:41 Height & Weight Height & Weight: Anesthesia: Height & Weight Height 5 ft 1 in 11/12/24 09:47 Respiratory Assessment Respiratory Assessment - account receivable clerk: Respiratory Tract Infection Hx - account receivable clerk Hx Respiratory Tract Infection No 12/27/24 12:41 STOP Sleep Apnea STOP Sleep Apnea - account receivable clerk: STOP Sleep Apnea - account receivable clerk Hx Hypertension Yes: controlled with med 12/27/24 12:41 Hx Sleep Apnea Yes: no machine 12/27/24 12:41 CPAP No 12/27/24 12:41 BIPAP No 12/27/24 12:41 Do you snore loudly (louder than talking or can be heard Do you often feel tired/ fatigued/ sleepy during daytime? Has anyone observed you stop breathing during sleep? STOP Results Positive 12/27/24 12:41 QUESTION #5 FULL TEXT : Do you snore loudly (louder than talking or can be heard through closed doors)? Tobacco Use History Tobacco Use History - account receivable clerk: Tobacco Use History - account receivable clerk Tobacco Use Smoking Status Former smoker 12/27/24 12:41 Hx Tobacco Use Yes 12/27/24 12:41 Years Smoking Packs Smoked per Day Smoking Cessation Date was No - quit smoking greater 12/27/24 12:41 within the last 15 years than 15 years ago Hx Smoking Cessation Date 06/23/07 12/27/24 12:41 Hx Smoking Cessation No 12/27/24 12:41 Counseling Hematologic Medial History Hematologic Hx - account receivable clerk: Hematologic Medical Hx - manager credit Hx of Blood Transfusion No 12/27/24 12:41 Hx of Transfusion in last 3 No 12/27/24 12:41 Months Date of Last Transfusion (if within last 3 months) Ever experience any problems No 12/27/24 12:41 with transfusion(s)? Specify any problems Hx of Preganancy in last 3 N/A 12/27/24 12:41 Months Nurse Filling Out Transfusion NBUCHER 12/27/24 12:41 & Questions: Date: 12/27/24 12/27/24 12:41 Time: 12:42 12/27/24 12:41 Patient unable to answer at this time (ie. confused, unrespo /Reproduction History /Reproductive History - account receivable clerk: /Reproductive Hx- account receivable clerk Hx Now Gestational Age (in weeks): EDC: Hx Hx Para Hx Section SAB No 12/27/24 12:41 PFS Medical History (Updated 12/27/24 @ 12:44 by Sandra Hernandez) Wears glasses Elevated triglycerides with high cholesterol Bone spur Sleep apnea Leg cramps History of echocardiogram History of stress test Cardiology follow-up encounter Epistaxis Asthma Stomach ulcer Shoulder pain History of hemorrhoids Arthritis Pure hypercholesterolemia Essential (primary) hypertension Atherosclerosis of coronary artery of [place] heart without angina pectoris Secondary pulmonary arterial hypertension Dyspnea Benign paroxysmal positional vertigo Anxiety IBS (irritable bowel syndrome) Asbestos exposure Home Medications ?Medication ?Instructions ?Recorded ?Last Taken ?Type lorazepam 0.5 mg tablet 0.5 mg PO DAILY PRN PRN Anxiety 10/18/16 07/22/23 History calcium carbonate (Calcium 500) 1,000 mg PO QDAY 10/23/17 Unknown History cholecalciferol (vitamin D3) 125 5,000 unit PO QDAY 10/23/17 Unknown History mcg (5,000 unit) capsule loratadine 10 mg tablet (Allergy 10 mg PO QDAY 10/23/17 Unknown History Relief (loratadine)) magnesium 250 mg tablet 250 mg PO QDAY 10/23/17 Unknown History omeprazole 20 mg capsule,delayed 20 mg PO QDAY PRN Heartburn 10/23/17 07/22/23 History release zinc gluconate 50 mg tablet 50 mg PO DAILY 07/24/21 Unknown History blood pressure monitor (Blood #1 ea 07/24/22 Unknown Rx Pressure Kit) vitamins-lipotropics 200 mg-100 mg 1 tab PO DAILY 07/15/23 Unknown History tablet (Ear Care) enalapril maleate 2.5 mg tablet 1.25 mg (1/2 x 2.5 mg) PO BID #90 03/23/24 Unknown Rx tabs propranolol 60 mg capsule,24 60 mg PO QDAY #90 caps 11/02/24 Unknown Rx hr,extended release ibuprofen 200 mg tablet 200 mg PO DAILY 12/06/24 12/23/24 History rosuvastatin 5 mg tablet 5 mg PO MOWEFR 12/06/24 Unknown History guaifenesin 400 mg tablet 400 mg PO DAILY 12/27/24 Unknown History Allergy/AdvReac Type Severity Reaction Status Date / Time risedronate sodium (From Allergy Other Verified 12/27/24 12:36 Actonel) strawberry Allergy Hives Verified 12/27/24 12:36 fish oil AdvReac skin Verified 12/27/24 12:36 erruptions onion AdvReac Vomiting Verified 12/27/24 12:36 prednisone AdvReac Other Verified 12/27/24 12:36 propoxyphene HCl (From AdvReac Nausea/Vom/ Verified 12/27/24 12:36 Darvon) Diarrhea Ohequqf-[id number] Reductase AdvReac Other Verified 12/27/24 12:36 Inhibitor Family History Mother CVA (cerebral vascular accident) Myocardial infarction, Onset Age: 93 Breast cancer Father Myocardial infarction [place] age 60 CAD (coronary artery disease) CABG x 3 Cancer Heart disease Hypertension Brother Heart disease Hypertension Surgical History (Updated 12/27/24 @ 12:44 by Sandra Hernandez) History of cardiac catheterization H/O dilation and curettage (~07/22/23) S/P trigger finger release History of coronary artery stent placement (01/07/18) History of back surgery H/O tubal ligation H/O eye surgery History of tonsillectomy Social History household members: none current occupational status: retired Smoking Status: Former smoker quit date: 06/23/07 pack-years: 12 alcohol intake: current alcohol intake frequency: a few times a month substance use type: does not use caffeine: Yes Type: carbonated beverages seatbelt use: always do you feel safe at home: Yes Audit: Pertinent Findings Pertinent Findings EKG Perinent findings: 08/11/2023. Normal sinus rhythm 62 bpm. Nonspecific T wave abnormality. Stress test pertinent findings: 09/10/2021. Normal perfusion stress test. EF 85%. Consult pertinent findings: Cardiology 12/06/2024. History of coronary artery stent placement. 2018. Most recent stress test 09/10/2021 negative for ischemia. Stable. Recommendation Anesthesia Recommendation Anesthesia recommendation: OPTIMIZED for anesthesia
[2024-12-29] VITALS (8 sets, daily range): BP systolic 111–137; BP diastolic 61–77; PULSE 56–66; RESP 14–16; TEMP 36.2–36.8; O2SAT 94–99; BMI 29.9
--- NOTE | 2024-12-29 07:55 | H&P.OPEN ---
HPI - General General Date of Service: 12/29/24 HPI Narrative MARIPOSA PIZARRO, is a 79 F who presents for screening colonoscopy. Patient denies any changes since office visit. Office visit 11/12/2024 HPI HPI: 79-year-old female presents due to left groin pain. Patient was seen by her PCP as well as in the ER for this. Patient had an CAT scan did not show any obvious inguinal hernias. Patient states that she has had this left groin pain for about 4 weeks occurred when she was walking. Patient states she gets it daily worse with lifting she does not really notice a bulge. Patient does take Tylenol 500 mg p.o. once a day. Patient's daughter also gave a history of having left-sided pain similar about a year ago and she was not even able to walk with that. Patient did admit to having pain down her leg at that time as well. When asking further patient states she does occasionally have pain down her leg with this left-sided pain. Patient can get occasional nausea when the pain gets worse. Typically the pain is a 1?2/10 but can occasionally get to a 10/10 but does resolve quickly with rest. Patient was last colonoscopy was about 11 years ago denies any family history of colon cancer. Patient has bowel movements daily occasionally has some bright red blood due to known hemorrhoids. Patient states he occasionally does get constipated and does take MiraLAX as needed. Patient was initially scheduled for open access but canceled due to a UTI prior to procedure. [facility] Medical History Wears glasses Elevated triglycerides with high cholesterol Bone spur Sleep apnea Leg cramps History of echocardiogram History of stress test Cardiology follow-up encounter Epistaxis Asthma Stomach ulcer Shoulder pain History of hemorrhoids Arthritis Pure hypercholesterolemia Essential (primary) hypertension Atherosclerosis of coronary artery of [place] heart without angina pectoris Secondary pulmonary arterial hypertension Dyspnea Benign paroxysmal positional vertigo Anxiety IBS (irritable bowel syndrome) Asbestos exposure Home Medications ?Medication ?Instructions ?Recorded ?Last Taken ?Type lorazepam 0.5 mg tablet 0.5 mg PO DAILY PRN PRN Anxiety 10/18/16 12/29/24 History calcium carbonate (Calcium 500) 1,000 mg PO QDAY 10/23/17 12/28/24 History cholecalciferol (vitamin D3) 125 5,000 unit PO QDAY 10/23/17 12/28/24 History mcg (5,000 unit) capsule loratadine 10 mg tablet (Allergy 10 mg PO QDAY 10/23/17 12/28/24 History Relief (loratadine)) magnesium 250 mg tablet 250 mg PO QDAY 10/23/17 12/28/24 History omeprazole 20 mg capsule,delayed 20 mg PO QDAY PRN Heartburn 10/23/17 12/29/24 History release zinc gluconate 50 mg tablet 50 mg PO DAILY 07/24/21 12/28/24 History blood pressure monitor (Blood #1 ea 07/24/22 Unknown Rx Pressure Kit) vitamins-lipotropics 200 mg-100 mg 1 tab PO DAILY 07/15/23 12/28/24 History tablet (Ear Care) enalapril maleate 2.5 mg tablet 1.25 mg (1/2 x 2.5 mg) PO BID #90 03/23/24 12/28/24 Rx tabs propranolol 60 mg capsule,24 60 mg PO QDAY #90 caps 11/02/24 12/29/24 Rx hr,extended release ibuprofen 200 mg tablet 200 mg PO DAILY 12/06/24 12/23/24 History rosuvastatin 5 mg tablet 5 mg PO MOWEFR 12/06/24 12/27/24 History guaifenesin 400 mg tablet 400 mg PO DAILY 12/27/24 12/28/24 History Allergy/AdvReac Type Severity Reaction Status Date / Time risedronate sodium (From Allergy Other Verified 12/29/24 08:00 Actonel) strawberry Allergy Hives Verified 12/29/24 08:00 fish oil AdvReac skin Verified 12/29/24 08:00 erruptions onion AdvReac Vomiting Verified 12/29/24 08:00 prednisone AdvReac Other Verified 12/29/24 08:00 propoxyphene HCl (From AdvReac Nausea/Vom/ Verified 12/29/24 08:00 Darvon) Diarrhea [id number] Reductase AdvReac Other Verified 12/29/24 08:00 Inhibitor Family History Mother CVA (cerebral vascular accident) Myocardial infarction, Onset Age: 93 Breast cancer Father Myocardial infarction [place] age 60 CAD (coronary artery disease) CABG x 3 Cancer Heart disease Hypertension Brother Heart disease Hypertension Surgical History History of cardiac catheterization H/O dilation and curettage (~07/22/23) S/P trigger finger release History of coronary artery stent placement (01/07/18) History of back surgery H/O tubal ligation H/O eye surgery History of tonsillectomy Social History household members: none current occupational status: retired Smoking Status: Former smoker quit date: 06/23/07 pack-years: 12 alcohol intake: current alcohol intake frequency: a few times a month substance use type: does not use caffeine: Yes Type: carbonated beverages seatbelt use: always do you feel safe at home: Yes Past Medical/Surgical History Planned Operation Planned Operative Procedure(s): cscope Previous Hospitalizations/Surgeries HX Hospitalizations: No HX of Surgeries: Eye surgery, tubal ligation, back surgery, tonsillectomy Any Problems With Anesthesia: No You/Your Family Experience Fever (Hyperthermia) With Anes: No Cholinesterase deficiency: No Cardiovascular Hx Chest Pain within Last 2 months: Yes Hx of Irregular Heartbeat and/or Afib: No Hx Heart Attack: No Hx Congestive Heart Failure: No Hx Rheumatic Fever: No Hx Hypertension: Yes Hx Internal Defibrillator: No Hx Pacemaker: No Hx Cardiac Catheterization: No Hx Cardiac Surgery/Stents/Etc.: No Hx Stress Test: Yes Hx Pain in Legs when Walking/Leg Cramps: No Respiratory Chronic Cough: No HX of Shortness of Breath: No Hx Chronic Obstructive Pulmonary Disease (COPD): No Hx Asthma: Yes Hx Emphysema: No Hx Sleep Apnea: Yes CPAP: No BIPAP: No Hx Respiratory Tract Infection/Cold (presently): No Result (for STOP score): Positive Hx Smoking: Yes Smoking Status: Former smoker Gastrointestinal Hx Gastrointestinal Bleed: No Hx Ulcer: No Difficulty Chewing/Swallowing: No Special diet followed at home: No Hx Unplanned Weight Loss of 20#: No HX Unplanned Weight Gain of 20#: No Neurological Hx Seizures: No HX Syncope/Blackout Spells/Unconsciousness: No Hx Multiple Sclerosis: No Hx Parkinson's Disease: No Hx Head/Neck Injury: Yes Hx Headaches: No Hx Back Injury/Pain: Yes Does patient have nerve stimulator: No Blood Disorder Hx Deep Vein Thrombosis: No Hx High Cholesterol: No Hx Hepatitis: No Hx Anemia: No Reproduction Is Patient Lactating: No Genitourinary Hx Renal Disease: No Hx Dialysis: No Musculoskeletal Hx 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) Hx Gout: No Endocrine Hx Diabetes: Yes (PREDIABETIC) Insulin: No Thyroid Disease: No Psycho/Social Hx Substance Use: No Hx Alcohol Use: Yes Hx Anxiety: Yes Hx Depression: No Hx Dementia: No Miscellaneous Hx Cancer: No Recent Exposure to Contagious Disease: No Allergies risedronate sodium (From Actonel) Allergy (Verified 12/29/24 08:00) Other strawberry Allergy (Verified 12/29/24 08:00) Hives fish oil Adverse Reaction (Verified 12/29/24 08:00) skin erruptions onion Adverse Reaction (Verified 12/29/24 08:00) Vomiting prednisone Adverse Reaction (Verified 12/29/24 08:00) Other suicidal ideation propoxyphene HCl (From Darvon) Adverse Reaction (Verified 12/29/24 08:00) Nausea/Vom/Diarrhea Lefhpnq-LNY-GxM Reductase Inhibitor Adverse Reaction (Verified 12/29/24 08:00) Other ABDOMINAL PAIN Discharge Is Pt Admitted From a Fpc, or a Long Term: No After D/C, Where Do you Plan to Go: Return Home From the [facility] History Number of Risk Factors: 4 Physical Exam Const alert, oriented x3 and no apparent distress HEENT normocephalic and head/scalp atraumatic Resp normal respiratory effort Cardio regular rate GI soft to palpation and non-tender; Negative for non-distended Palpation: Negative for guarding Extremity no clubbing, cyanosis or edema Skin no rashes or lesions noted Neuro CN's II-XII intact bilaterally Psych mental status grossly normal Assessment & Plan Assessment/Plan (1) Screening for colon cancer: Surgery Risks - Colonoscopy I discussed with the patient the risks of the procedure: Yes Risks Include but are not Limited To: Risks include but are not limited to: Bleeding, perforation requiring further surgery, inability to complete colonoscopy requiring barium enema.
[2024-12-29] MEDS: Lactated Ringers 1,000 ML 15 ML IV (08:11)
--- NOTE | 2024-12-29 08:29 | PCM.PRE.AN2 ---
ASA Classification* ASA Classification ASA Classification: 2 Assessment & Plan Anesthesia* Anesthesia Assessment Anesthesia Assessment: Discussed sedation and/or anesthesia options, risks, benefits, and alternatives with patient/parents/legal guardian/POA. Questions invited. The patient/parents/legal guardian/POA seems to understand and agrees to proceed with anesthesia plan. Reviewed the physical assessment, medical history, allergy history and patient home medications list prior to surgery/procedure/anesthetic and documented any changes. Performed airway and anesthesia risk assessments. Anesthesia Type Anesthesia Type: MAC History Source History Obtained from:: Patient and Chart Anesthesia Focused Assessment* Temperature: 97.2 F Pulse Rate: 66 Blood Pressure: 137/73 Respiratory Rate: 14 Pulse Ox: 96 Airway Assessment Mouth opens: >3 cm Mallampati Score: I Teeth Condition: Intact Neck Range of motion (ROM): Full ROM Labs Anesthesia Preop lab: CBC WBC 10.4 K/mm3 (4.4-11.0) 11/03/24 18:55 11/03/24 RBC 4.55 M/mm3 (4.2-5.4) 11/03/24 18:55 11/03/24 Hgb 14.0 g/dL (12.0-15.0) 11/03/24 18:55 11/03/24 Hct 41.0 % (37-47) 11/03/24 18:55 11/03/24 Plt Count 346 K/mm3 (150-450) 11/03/24 18:55 11/03/24 CHEMISTRY Potassium 4.1 mmol/L (3.3-5.1) 11/03/24 18:55 11/03/24 Sodium 140 mmol/L (133-145) 11/03/24 18:55 11/03/24 BUN 15 mg/dL (4-19) 11/03/24 18:55 11/03/24 Creatinine 0.76 mg/dL (0.70-1.20) 11/03/24 18:55 11/03/24 Glucose 104 mg/dL (70-99) H 11/03/24 18:55 11/03/24 POC Glucose 111 mg/dL (70-110) H 05/19/16 17:02 05/19/16 COAG PT 13.9 SECONDS (11.7-14.9) 12/10/17 14:08 12/10/17 Pre-Assessment Diagnosis/Proposed Procedure Planned Operative Procedure(s): cscope Anesthesia History 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 When Was Last Pacemaker Check QUESTION #4 FULL TEXT: You/Your Family Experience fever (hyperthermia) with Anesthesia Last Oral Intake Last Oral intake: Last Oral Intake NPO since 21:00 12/29/24 08:02 Meds taken in AM with sips of water? Meds patient instructed to take am of surgery PONV PONV - group dynamics instructor: PONV - group dynamics instructor Female Yes 12/27/24 12:41 HX of Motion Sickness Yes 12/27/24 12:41 HX of N/V After Surgery No 12/27/24 12:41 Non-Smoker Yes 12/27/24 12:41 Duration of Surgery greater No 12/27/24 12:41 than 60 minutes Number of Risk Factors 3 12/27/24 12:41 PONV Score Moderate Risk 12/27/24 12:41 Height & Weight Height & Weight: Anesthesia: Height & Weight Height 5 ft 1 in 12/29/24 08:02 Weight: 72 kg 12/29/24 08:02 Body Mass Index (BMI) 29.9 12/29/24 08:02 Respiratory Assessment Respiratory Assessment - group dynamics instructor: Respiratory Tract Infection Hx - group dynamics instructor Hx Respiratory Tract Infection No 12/29/24 07:55 STOP Sleep Apnea STOP Sleep Apnea - group dynamics instructor: STOP Sleep Apnea - group dynamics instructor Hx Hypertension Yes 12/29/24 07:55 Hx Sleep Apnea Yes 12/29/24 07:55 CPAP No 12/29/24 07:55 BIPAP No 12/29/24 07:55 Do you snore loudly (louder than talking or can be heard Do you often feel tired/ fatigued/ sleepy during daytime? Has anyone observed you stop breathing during sleep? STOP Results Positive 12/29/24 07:57 QUESTION #5 FULL TEXT : Do you snore loudly (louder than talking or can be heard through closed doors)? 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 Specify any problems Hx of Preganancy in last 3 N/A 12/27/24 12:41 Months Nurse Filling Out Transfusion NBUCHER 12/27/24 12:41 & Questions: Date: 12/27/24 12/27/24 12:41 Time: 12:42 12/27/24 12:41 Patient unable to answer at this time (ie. confused, unrespo /Reproduction History /Reproductive History - group dynamics instructor: /Reproductive Hx- group dynamics instructor Hx Now Gestational Age (in weeks): EDC: Hx Hx Para Hx Section SAB No 12/27/24 12:41 Active Medications Active Medications: Current Medications Generic Name Dose Route Start Last Admin Trade Name Freq PRN Reason Stop Dose Admin Lactated Ringer's 1,000 mls @ 15 mls/hr 12/29/24 07:45 12/29/24 08:11 IV 15 mls/hr .Q48H LEOBARDO Administration PFSH Medical History Wears glasses Elevated triglycerides with high cholesterol Bone spur Sleep apnea Leg cramps History of echocardiogram History of stress test Cardiology follow-up encounter Epistaxis Asthma Stomach ulcer Shoulder pain History of hemorrhoids Arthritis Pure hypercholesterolemia Essential (primary) hypertension Atherosclerosis of coronary artery of [place] heart without angina pectoris Secondary pulmonary arterial hypertension Dyspnea Benign paroxysmal positional vertigo Anxiety IBS (irritable bowel syndrome) Asbestos exposure Home Medications ?Medication ?Instructions ?Recorded ?Last Taken ?Type lorazepam 0.5 mg tablet 0.5 mg PO DAILY PRN PRN Anxiety 10/18/16 12/29/24 History calcium carbonate (Calcium 500) 1,000 mg PO QDAY 10/23/17 12/28/24 History cholecalciferol (vitamin D3) 125 5,000 unit PO QDAY 10/23/17 12/28/24 History mcg (5,000 unit) capsule loratadine 10 mg tablet (Allergy 10 mg PO QDAY 10/23/17 12/28/24 History Relief (loratadine)) magnesium 250 mg tablet 250 mg PO QDAY 10/23/17 12/28/24 History omeprazole 20 mg capsule,delayed 20 mg PO QDAY PRN Heartburn 10/23/17 12/29/24 History release zinc gluconate 50 mg tablet 50 mg PO DAILY 07/24/21 12/28/24 History blood pressure monitor (Blood #1 ea 07/24/22 Unknown Rx Pressure Kit) vitamins-lipotropics 200 mg-100 mg 1 tab PO DAILY 07/15/23 12/28/24 History tablet (Ear Care) enalapril maleate 2.5 mg tablet 1.25 mg (1/2 x 2.5 mg) PO BID #90 03/23/24 12/28/24 Rx tabs propranolol 60 mg capsule,24 60 mg PO QDAY #90 caps 11/02/24 12/29/24 Rx hr,extended release ibuprofen 200 mg tablet 200 mg PO DAILY 12/06/24 12/23/24 History rosuvastatin 5 mg tablet 5 mg PO MOWEFR 12/06/24 12/27/24 History guaifenesin 400 mg tablet 400 mg PO DAILY 12/27/24 12/28/24 History Allergy/AdvReac Type Severity Reaction Status Date / Time risedronate sodium (From Allergy Other Verified 12/29/24 08:00 Actonel) strawberry Allergy Hives Verified 12/29/24 08:00 fish oil AdvReac skin Verified 12/29/24 08:00 erruptions onion AdvReac Vomiting Verified 12/29/24 08:00 prednisone AdvReac Other Verified 12/29/24 08:00 propoxyphene HCl (From AdvReac Nausea/Vom/ Verified 12/29/24 08:00 Darvon) Diarrhea Arbjyyi-UKE-VaR Reductase AdvReac Other Verified 12/29/24 08:00 Inhibitor Family History Mother CVA (cerebral vascular accident) Myocardial infarction, Onset Age: 93 Breast cancer Father Myocardial infarction [place] age 60 CAD (coronary artery disease) CABG x 3 Cancer Heart disease Hypertension Brother Heart disease Hypertension Surgical History History of cardiac catheterization H/O dilation and curettage (~07/22/23) S/P trigger finger release History of coronary artery stent placement (01/07/18) History of back surgery H/O tubal ligation H/O eye surgery History of tonsillectomy Social History household members: none current occupational status: retired Smoking Status: Former smoker quit date: 06/23/07 pack-years: 12 alcohol intake: current alcohol intake frequency: a few times a month substance use type: does not use caffeine: Yes Type: carbonated beverages seatbelt use: always do you feel safe at home: Yes Review of Systems (Anesthesia) ROS Narrative System reviewed and no additional complaints, except as documented.
--- NOTE | 2024-12-29 09:00 | COLBX_PTH ---
PATIENT: MARIPOSA PIZARRO LOC: EN U#:[id number] AGE/SX: 79/F ROOM: RE12/29/[address]: Dr. Allison Roblero MD : 1945 BED: DIS: 12/29/2024 SPEC #: [id number] RECD: 12/29/24 11:26 STATUS: BRANDAN CHRISTIANO #: [id number] AGUSTINA: 12/29/24 09:[address]: Allison Roblero DEPT: SURGICAL PATHOLOGY RECD BY: Franki Yanes ENTERED: 12/29/24 13:48 SP TYPE: COLON BX [place] DR: Dr. Emily Sheikh DO Tissues: A - Ascending colon B - Sigmoid colon biopsy Procedures: Surgery Specimen Level IV HEADER OPERATION: Colonoscopy with polypectomy and biopsy PRE-OP DIAGNOSIS: Screening for colon cancer TISSUE SUBMITTED: A- Ascending colon polyp, B- Sigmoid polyp biopsy MICROSCOPIC DIAGNOSIS A. Ascending colon, polyp, biopsy: Tubular adenoma. B. Sigmoid colon, polyp, biopsy: Tubular adenoma. MICROSCOPIC DESCRIPTION Slides are reviewed. GROSS DESCRIPTION A. Received in fixative is one container labeled with the patient's name and designated Ascending colon polyp. The specimen consists of multiple irregular fragments of light chung soft tissue with vegetable material that in aggregate measure 0.7 x 0.5 x 0.1 cm. The specimen is totally submitted in one cassette. B. Received in fixative is one container labeled with the patient's name and designated Sigmoid polyp biopsy. The specimen consists of two irregular fragments of light chung soft tissue that in aggregate measure 0.2 and 0.3 cm. The specimen is totally submitted in one cassette. Arnel 12/29/2024 CPT:86353y6
--- NOTE | 2024-12-29 09:54 | OP.COLON_ITS ---
Patient Name: Yamini Jonas Procedure Date: 12/29/2024 9:15 AM Date of : 1945 Age: 79 Procedure: Colonoscopy Indications: Screening for colorectal malignant neoplasm Providers: Allison Roblero MD Referring MD: Emily Sheikh Medicines: Monitored Anesthesia Care Patient Profile: This is a 79 year old female. Last Colonoscopy: more than 10 years ago. Complications: No immediate complications. Procedure: Pre-Anesthesia Assessment: - Prior to the procedure, a History and Physical was performed, and patient medications and allergies were reviewed. The patient's tolerance of previous anesthesia was also reviewed. The risks and benefits of the procedure and the sedation options and risks were discussed with the patient. All questions were answered, and informed consent was obtained. Prior Anticoagulants: The patient has taken no anticoagulant or antiplatelet agents. ASA Grade Assessment: Per anesthesia. After reviewing the risks and benefits, the patient was deemed in satisfactory condition to undergo the procedure. After I obtained informed consent, the scope was passed under direct vision. Throughout the procedure, the patient's blood pressure, pulse, and oxygen saturations were monitored continuously. The Colonoscope was introduced through the anus and advanced to the cecum, identified by the appendiceal orifice, ileocecal valve and palpation. The colonoscopy was performed without difficulty. The patient tolerated the procedure well. The quality of the bowel preparation was good. Scope In: 9:22:47 AM Scope Withdrawal Time 0 hours 19 minutes 9 seconds Scope Out: 9:48:41 AM Total Procedure Duration Time 0 hours 25 minutes 54 seconds Findings: The perianal and digital rectal examinations were normal. A less than 5 mm polyp was found in the ascending colon. The polyp was semi-sessile. The polyp was removed with a hot snare. Resection and retrieval were complete. A less than 5 mm polyp was found in the sigmoid colon. The polyp was sessile. The polyp was removed with a cold biopsy forceps. Resection and retrieval were complete. The exam was otherwise without abnormality on direct and retroflexion views. Impression: - One less than 5 mm polyp in the ascending colon, removed with a hot snare. Resected and retrieved. - One less than 5 mm polyp in the sigmoid colon, removed with a cold biopsy forceps. Resected and retrieved. - The examination was otherwise normal on direct and retroflexion views. Recommendation: - Discharge patient to home. - Resume previous diet. - Continue present medications. - Await pathology results. - Repeat colonoscopy in 5 years for surveillance based on pathology results. - depending on overall health at time of possible repeat Procedure Code(s): --- Professional --- 43974, PT, Colonoscopy, flexible; with removal of tumor(s), polyp(s), or other lesion(s) by snare technique 39970, 59, Colonoscopy, flexible; with biopsy, single or multiple Diagnosis Code(s): --- Professional --- Z12.11, Encounter for screening for malignant neoplasm of colon D12.2, Benign neoplasm of ascending colon D12.5, Benign neoplasm of sigmoid colon CPT copyright 2021 [employer]. All rights reserved. The codes documented in this report are preliminary and upon physician coder review may be revised to meet current compliance requirements. MD Allison Diallo MD 12/29/2024 9:54:20 AM This report has been signed electronically. Number of Addenda: 0 Note Initiated On: 12/29/2024 9:15 AM
--- NOTE | 2024-12-29 09:55 | OP.CCLET_ITS ---
12/29/2024 Emily Sheikh [address] [place] [place] [address] Re : Colonoscopy procedure for Yamini Jonas Dear Dr. Sheikh This procedure was performed on Sunday, December 29, 2024. My impressions and recommendations are as follows: Impressions : - One less than 5 mm polyp in the ascending colon, removed with a hot snare. Resected and retrieved. - One less than 5 mm polyp in the sigmoid colon, removed with a cold biopsy forceps. Resected and retrieved. - The examination was otherwise normal on direct and retroflexion views. Recommendations : - Discharge patient to home. - Resume previous diet. - Continue present medications. - Await pathology results. - Repeat colonoscopy in 5 years for surveillance based on pathology results. - depending on overall health at time of possible repeat My findings are described in the full procedure note, which is enclosed. If I can be of further assistance, please feel free to contact me at Doctor phone number(s): , Work: . Sincerely, MD Allison Diallo MD 12/29/2024 9:54:20 AM This report has been signed electronically.
--- NOTE | 2024-12-29 09:59 | PCM.POST.ANE ---
Anesthesia: Postop Eval I Current Vital Signs Temperature: 97.4 F Pulse Rate: 63 Blood Pressure: 126/64 Respiratory Rate: 16 Pulse Ox: 97 Oxygen Delivery Method: Room Air Assessment Airway patent: Yes Spontaneous unlabored respirations: Yes Mental status: Asleep nausea: No Vomiting: No Anesthesia Complication: No Fluid Hydration Crystalloid volume administer (ml): 900 Total IV fluid infused: 900 Progress Note Anesthesia document: Postop Eval 1 completed: Yes
--- NOTE | 2024-12-29 10:16 | PCM.POSTANE2 ---
Anesthesia Postop Eval I Sum Postop Eval Completion status Anesthesia document: Postop Eval 1 completed: Yes Anesthesia Postop Eval I Summary Anesthesia Postop Eval I Summary: Anesthesia Postop Eval I: Assessment Summary Airway patent Yes 12/29/24 10:00 [email or web address] Spontaneous unlabored Yes 12/29/24 10:00 [email or web address] respirations Mental status Asleep 12/29/24 10:00 [email or web address] nausea No 12/29/24 10:00 [email or web address] Vomiting No 12/29/24 10:00 [email or web address] Anesthesia Postop Eval I: Fluid Summary Crystalloid volume administer 900 12/29/24 10:00 [email or web address] (ml) Colloids volume administered ( ml) Blood Product volume administered (ml) Total IV fluid infused 900 12/29/24 10:00 [email or web address] Anesthesia Postop Eval I: Summary Notes Anesthesia Complication No 12/29/24 10:00 [email or web address] Anesthesia Complication Comment: Post-operative progress note Anesthesia: Postop Eval II Evaluation Mental status: Awake and Calm Pain Level: 1 nausea: No Vomiting: No Complications Anesthesia Complication: No
== END 2024-12-29 11:17 | disposition home or self-care (01) ==
LOC: EN 07:43 → AC 07:44
PROVIDERS: PCP Internal Medicine; Referring Provider Internal Medicine; Visit Provider Surgery
PROC: 0DJD8ZZ Inspection of Lower Intestinal Tract, Via Natural or Artificial Opening Endoscopic (ICD-10-PCS; CPT 45378; principal; 2024-12-29 08:55)
DX: Z12.11 Encounter for screening for malignant neoplasm of colon (principal); E78.00 Pure hypercholesterolemia, unspecified; I25.10 Atherosclerotic heart disease of native coronary artery without angina pectoris; I10 Essential (primary) hypertension; Z87.891 Personal history of nicotine dependence; J45.909 Unspecified asthma, uncomplicated; Z79.899 Other long term (current) drug therapy; D12.5 Benign neoplasm of sigmoid colon; D12.2 Benign neoplasm of ascending colon
CPT/HCPCS: 45380; 45385; 88305; J2405

== ENCOUNTER 2025-01-14 02:51 | Emergency (ER) | payer MEDICARE, SELFPAY ==
[2024-03-22 11:09] VITALS: BMI 30.5
[2025-01-14 02:53] VITALS: BP 190/83; PULSE 75; RESP 18; TEMP 36.6; O2SAT 100; BMI 31.0
[2025-01-14 03:05] VITALS: BP 169/72; PULSE 76; RESP 16; O2SAT 99
--- NOTE | 2025-01-14 03:17 | EKG12_ITS ---
Test Reason : DYSRHYTHMIA Blood Pressure : */* mmHG Vent. Rate : 70 BPM Atrial Rate : 70 BPM P-R Int : 202 ms QRS Dur : 84 ms QT Int : 428 ms P-R-T Axes : 46 -20 27 degrees QTcB Int : 462 ms Normal sinus rhythm T wave abnormality, consider anterior ischemia Abnormal ECG Confirmed by TADEO METCALF, KATHERIN ([id number]), manager editorial BERHANE MUÑIZ ([id number]) on 01/17/2025 9:44:03 AM Referred By: Confirmed By: KATHERIN PIEDRA MD
--- NOTE | 2025-01-14 03:22 | EX.ED.DYSGE1 ---
HPI History of Present Illness Chief Complaint: Anxiety Informant: patient Narrative Narrative: Presents increasing anxiety states "things just do not feel right." States she was at her daughter's house they were talking about old friends who has . Also recent news of 3 celebrity's passing away. She started thinking more about everything. 11 PM tried going to bed he was tossing and turning she is urinating more she felt like she needed to have bowel movements. She is have symptoms similar to anxiety. No suicidal homicidal ideations. History of 2 stents in the past denies chest pains no dyspnea. Recent colonoscopy with results of benign polyps. Prior similar symptoms: Yes [facility] Medical History Wears glasses Elevated triglycerides with high cholesterol Bone spur Sleep apnea Leg cramps History of echocardiogram History of stress test Cardiology follow-up encounter Epistaxis Asthma Stomach ulcer Shoulder pain History of hemorrhoids Arthritis Pure hypercholesterolemia Essential (primary) hypertension Atherosclerosis of coronary artery of [place] heart without angina pectoris Secondary pulmonary arterial hypertension Dyspnea Benign paroxysmal positional vertigo Anxiety IBS (irritable bowel syndrome) Asbestos exposure Home Medications Medication Instructions Recorded Last Taken Type lorazepam 0.5 mg tablet 0.5 mg PO DAILY PRN PRN Anxiety 10/18/16 12/29/24 History cholecalciferol (vitamin D3) 125 5,000 unit PO QDAY 10/23/17 12/28/24 History mcg (5,000 unit) capsule loratadine 10 mg tablet (Allergy 10 mg PO QDAY 10/23/17 12/28/24 History Relief (loratadine)) magnesium 250 mg tablet 250 mg PO QDAY 10/23/17 12/28/24 History omeprazole 20 mg capsule,delayed 20 mg PO QDAY PRN Heartburn 10/23/17 12/29/24 History release zinc gluconate 50 mg tablet 50 mg PO DAILY 07/24/21 12/28/24 History blood pressure monitor (Blood #1 ea 07/24/22 Unknown Rx Pressure Kit) vitamins-lipotropics 200 mg-100 mg 1 tab PO DAILY 07/15/23 12/28/24 History tablet (Ear Care) enalapril maleate 2.5 mg tablet 1.25 mg (1/2 x 2.5 mg) PO BID #90 03/23/24 12/28/24 Rx tabs propranolol 60 mg capsule,24 60 mg PO QDAY #90 caps 11/02/24 12/29/24 Rx hr,extended release ibuprofen 200 mg tablet 200 mg PO DAILY 12/06/24 12/23/24 History guaifenesin 400 mg tablet 400 mg PO DAILY 12/27/24 12/28/24 History rosuvastatin 5 mg tablet 5 mg PO MOWEFR #36 tabs 01/10/25 Unknown Rx cephalexin 500 mg capsule 500 mg PO Q12 #14 CAPSULES 01/14/25 Unknown Rx Allergy/AdvReac Type Severity Reaction Status Date / Time risedronate sodium (From Allergy Other Verified 01/14/25 02:52 Actonel) strawberry Allergy Hives Verified 01/14/25 02:52 fish oil AdvReac skin Verified 01/14/25 02:52 erruptions onion AdvReac Vomiting Verified 01/14/25 02:52 prednisone AdvReac Other Verified 01/14/25 02:52 propoxyphene HCl (From AdvReac Nausea/Vom/ Verified 01/14/25 02:52 Darvon) Diarrhea [id number] Reductase AdvReac Other Verified 01/14/25 02:52 Inhibitor Family History Mother CVA (cerebral vascular accident) Myocardial infarction, Onset Age: 93 Breast cancer Father Myocardial infarction [place] age 60 CAD (coronary artery disease) CABG x 3 Cancer Heart disease Hypertension Brother Heart disease Hypertension Surgical History History of cardiac catheterization H/O dilation and curettage (~07/22/23) S/P trigger finger release History of coronary artery stent placement (01/07/18) History of back surgery H/O tubal ligation H/O eye surgery History of tonsillectomy Social History household members: none current occupational status: retired Smoking Status: Former smoker quit date: 06/23/07 pack-years: 12 alcohol intake: current alcohol intake frequency: a few times a month substance use type: does not use caffeine: Yes Type: carbonated beverages seatbelt use: always do you feel safe at home: Yes ROS ROS ED Constitutional Constitutional ED: Denies fever(s) Cardiovascular Cardiovascular: Denies chest pain Respiratory/Chest Respiratory/Chest: Denies cough Gastrointestinal Gastrointestinal: Denies diarrhea or vomiting Genitourinary Genitourinary ED: Reports urinary frequency Musculoskeletal Musculoskeletal: Denies none Integumentary Denies rash or wounds Neurologic Neurologic: Denies weakness Psychiatric Psychiatric: Reports anxiety; Denies suicidal ideation or suicidal thoughts EXAM Physical Exam Const Vital Signs: 01/14/25 02:53 01/14/25 02:55 01/14/25 03:05 Temperature 98 F Temperature Source Oral Pulse Rate 75 76 Respiratory Rate 18 16 Respiratory Effort Normal Non-Labored Respiratory Pattern Normal Blood Pressure 190/83 H 169/72 H Blood Pressure Mean 118 104 Pulse Ox 100 99 Oxygen Delivery Method Room Air Room Air 01/14/25 03:51 Temperature 98 F Temperature Source Pulse Rate 62 Respiratory Rate 18 Respiratory Effort Respiratory Pattern Blood Pressure 169/60 H Blood Pressure Mean 96 Pulse Ox 99 Oxygen Delivery Method Positive well nourished and well developed Constitutional Narrative: Nontoxic General Appearance ED: well developed HEENT normocephalic and atraumatic Eyes General Eye ED: Yes normal appearance of both eyes Neck full ROM Resp normal respiratory effort and normal air movement Cardio regular rate and regular rhythm GI soft to palpation Extremity normal to inspection and full ROM Neuro oriented x3 Skin no rashes or lesions noted and no wounds MDM MDM MDM Narrative Medical decision making narrative: Interventions / MDM: Differential diagnosis: Acute stress reaction, urine frequency, urinary tract infection Diagnosis considered but do not suspect: No suicidal or homicidal ideations. My EKG interpretation: Sinus rate of [address] changes. T wave version anterior leads along with leads III. This is similar to July 2023. Imaging independently reviewed and interpreted by myself: N/A External documents reviewed: N/A Test considered but not ordered:N/A ED course: Patient history likely from acute stress reaction. However cardiac history and reported urine frequency. Will check EKG and a UA. Currently not feeling symptoms. EKG is chronic findings. Urine results positive for infection. She started on Keflex. Reassuring findings. Outpatient follow-up. All questions were answered. Re-evaluation: stable Disposition discussed with patient/family/significant other: Patient Case discussed with consulting clinician: N/A This note was generated with MoPixation software. It may contain incorrect words, spelling, and punctuation that were not noted in checking the note before signing. Lab Data Attestation: I reviewed the patient's lab results. Labs: Laboratory Results - last 24 hr 01/14/25 03:27 Urine Color Yellow Urine Clarity Sl. Cloudy Urine pH 6.5 Ur Specific [place] 1.010 Urine Protein 15 H Urine Glucose (UA) Normal Urine Ketones Negative Urine Occult Blood Negative Urine Nitrite Negative Urine Bilirubin Negative Urine Urobilinogen Normal Ur Leukocyte Esterase 500 H Urine RBC 0 SEEN Urine WBC 10-25 SEEN Ur Squamous Epith Cells 0-5 SEEN Urine Bacteria RARE Urine Mucus 0 SEEN Discharge Plan Triage Chief Complaint: Anxiety ED Provider: Preet Scott Dx/Rx/DC Orders Clinical Impression: Acute UTI, Acute stress reaction Instructions: Urinary Tract Infections in Women, ED Anxiety Reaction Prescriptions: New cephalexin 500 mg capsule 500 mg PO Q12 Qty: 14 0RF No Action loratadine [Allergy Relief (loratadine)] 10 mg tablet 10 mg PO QDAY omeprazole 20 mg capsule,delayed release(DR/EC) 20 mg PO QDAY PRN (Reason: Heartburn) cholecalciferol (vitamin D3) 5,000 unit capsule 5,000 unit PO QDAY magnesium 250 mg tablet 250 mg PO QDAY zinc gluconate 50 mg tablet 50 mg PO DAILY (DME) blood pressure monitor [Blood Pressure Kit] Kit See Rx Instructions .Route Qty: 1 0RF Rx Instructions: As directed ibuprofen 200 mg tablet 200 mg PO DAILY lorazepam 0.5 MG tablet 0.5 mg PO DAILY PRN PRN (Reason: Anxiety) Ear Care 200-100 mg tablet 1 tab PO DAILY guaifenesin 400 mg tablet 400 mg PO DAILY enalapril maleate 2.5 mg tablet 1.25 mg PO BID Qty: 90 3RF propranolol 60 mg capsule,extended release 24 hr 60 mg PO QDAY Qty: 90 3RF rosuvastatin 5 mg tablet 5 mg PO MOWEFR Qty: 36 3RF Primary Care Provider: Emily Sheikh Referrals: Emily Sheikh DO [Primary Care Provider] - Activity Restrictions/Additional Instructions: EKG stable. Urine with signs of infection. Take and finish antibiotic prescribed. Follow-up with your doctor. Print Language: Liberian Disposition Disposition: Home, Self Care Discharge Date/Time: 01/14/25 03:58
[2025-01-14 03:32] LABS: Mucous, Urine 0 SEEN /hpf (<or=2+); Red Blood Cells-Urine 0 SEEN /hpf (0-5)
[2025-01-14 03:37] LABS: Color, Urine Yellow (Yellow); Glucose, Dipstick Normal (Normal); Ketone-Dipstick Negative (Negative); Leukocyte Esterase-Dipstick 500 /ul (Negative); Nitrite-Dipstick Negative (Negative); Occult Blood-Urine Negative /ul (Negative); Protein-Dipstick 15 mg/dl (Negative); Specific Gravity, Urine 1.010 (1.002-1.030); Urine Bilirubin Dipstick Negative (Negative)
[2025-01-14 03:43] LABS: Squamous Epithelial Cells - UA 0-5 SEEN /hpf (5-10)
--- OUTSIDE RECORDS SUMMARY | 2025-01-14 03:49 | XMS RPT_ITS | CCD ---
Author Organization [facility] Care Team Providers Care Workforce Management Manager Name Role Phone Emily Jenkins Unavailable Hank Garrett Unavailable MessengerSantos Unavailable Unavailable Emick, Mckean Unavailable Unavailable Unavailable Unavailable Emily Jenkins Unavailable Hank Garrett Unavailable MessengerSantos Unavailable Unavailable Gravius, Carole Unavailable Unavailable Emick, Mckean Unavailable Unavailable Unavailable Unavailable Joya Elliott Unavailable Unavailable Jose Francisco METCALF, Bayron Jara Unavailable [phone] Joya Elliott Unavailable Unavailable Santos Child Unavailable Unavailable Unavailable Unavailable Gravverónica, Carole Unavailable Unavailable Sonal Gómez Unavailable Unavailable ARMANI Yancey Unavailable Unavailable Isaac Moulton Unavailable Emily Jenkins DO Unavailable Hank Garrett MD Unavailable Dr. Isaac Moulton Unavailable Gravverónica RICHARD, Carole Unavailable Unavailable Santos Child RN Unavailable Unavailable Sonal Gómez LPN Unavailable Unavailable Joya Elliott RN Unavailable Unavailable Emick, Mckean Unavailable Unavailable Unavailable Unavailable Leander CRIMINOLOGY TEACHER, Kenyatta Unavailable Unavailable SlaLeisa latif LPN Unavailable Unavailable Emily Jenkins DO Primary Care Provider Dr. Emily Jenkins Primary Care Provider [phone] Dr. Emily Jenkins Referring Provider [phone] Dr. Reilly Abbott Attending Provider Dr. Reilly Abbott Referring Provider [phone] Reilly Abbott Other Provider Dr. Emily Jenkins Primary Care Provider [phone] Dr. Reilly Abbott Attending Provider [phone] Emily Jenkins DO Unavailable [phone] Emily Jenkins Primary Care Provider [phone] Dr. Emily Jenkins Referring Provider MAIKEL Gasca Attending Provider Tanmay TAX CREDIT LEASING CONSULTANT, TAX CREDIT LEASING CONSULTANT-C Santos Attending Provider Ankit RICHARD, Camila Unavailable Unavailable Alice DO, Emily Attending Unavailable Alice DO, Emily Referring Unavailable Alice DO, Emily Consulting Unavailable Katy CRIMINOLOGY TEACHER, [place] Unavailable Unavailable ALICE , DR DIAZ Primary Care Physician [phone] Bc CRIMINOLOGY TEACHER, ARMANI Unavailable Unavailable CRISSY CAMACHO MD Attending Unavailable ALICE HUERTA, DR DIAZ Primary Care Unavailab SEEMA Waldron MD Attending Unavail able ALICE , DR DIAZ Primary Care Unavailab Jose Manuel Funes Unavailable Dr. Emily Jenkins Primary Care Provider [phone] Dr. Emily Jenkins Referring Provider [phone] Melvin TAX CREDIT LEASING CONSULTANT, TAX CREDIT LEASING CONSULTANT-C Rebeka Attending Provider [phone] Dr. Katie Segura Attending Provider [phone] Dr. Reilly Abbott Attending Provider [phone] Rizwan Bill Attending Provider [phone] Dr. Katie Segura Referring Provider [phone] Dr. Allison Roblero Attending Provider [phone] Dr. Katie Segura Other Provider [phone] KATYA Zamora Attending Provider [phone] Emily Jenkins DO Primary Care Provider Emily Jenkins DO Primary Care Provider ALICELIBBYEMILYCARLI GRAHAM Primary Care Unavailab le ALICE EMILY SANTOS Primary Care Unavailab le JAYNE BENJAMIN Attending Unavailable ALICE, EMILY SANTOS Primary Care Unavailab le Alice DO, Dr. Diaz Primary Care Provider Dr. Jung Mckeon DO Emergency Provider Mike HUERTA, Dr. Feng Attending Provider Alice HUERTA, Dr. Diaz Referring Provider [phone] Osbaldo METCALF, Dr. Cooper Attending Provider Lexus SINGH-Bayron Esquivel Attending Provider Osbaldo METCALF, Dr. Cooper Other Provider Allison Roblero Consulting Unavailable RobotIsaac robbinsera Attending Unavailable Alice, Emily Referring Unavailable Alice, Emily Primary Care Unavailable Alice, Emily Primary Care Unavailable Robotrosendo Allison Attending Unavailable Alice, Emily Referring Unavailable Alice, Emily Primary Care Unavailable Alice, Emily Attending Unavailable Alice, Emily Referring Unavailable Alice, Emily Primary Care Unavailable Jung Mckeon Attending Unavailable Alice, Emily Primary Care Unavailable Lexus SINGH, Bayron Tate Attending Unavailable Alice, Emily Referring Unavailable Alice, Emily Primary Care Unavailable Robotham, Allison Attending Unavailable Alice, Emily Referring Unavailable Milena, Reilly Attending Unavailable Alice, Emily Primary Care Unavailable Allergies Allergy Classification Reported Allergen(s) Allergy Type Date of Onset Reaction(s) Facility Opioid Agonists (2 sources) Propoxyphene; Translations: [Darvon *ANALGESICS - OPIOID*] Drug Allergy [facility]; [facility] Work Phone: Risedronate (2 sources) Risedronate; Translations: [Actonel *ENDOCRINE AND METABOLIC AGENTS - MISC.*] Drug Allergy [facility]; [facility] Work Phone: (20 sources) Propoxyphene; Translations: [Darvon *ANALGESICS - OPIOID*] Drug Allergy [facility] Work Phone: Comment on above: N/V (20 sources) Risedronate; Translations: [Actonel *ENDOCRINE AND METABOLIC AGENTS - MISC.*] Drug Allergy [facility] Work Phone: Comment on above: high bp (1 source) Propoxyphene Drug Allergy 06-05-20 12 [facility] Work Phone: (1 source) Risedronate Drug Allergy 06-10-20 12 [facility] Work Phone: (3 sources) Seasonal allergy; Translations: [SEASONAL] allergy to substance 06-05-20 12 Other [facility] Work Phone: (10 sources) predniSONE; Translations: [PREDNISONE] Drug Allergy 09-18-19 18 Mental Status Change [facility] Work Phone: Comment on above: suicidal ideation (20 sources) Propoxyphene; Translations: [PROPOXYPHENE HCL] Drug Allergy 04-04-20 08 Vomiting [facility] Work Phone: (20 sources) Risedronate; Translations: [RISEDRONATE SODIUM] Drug Allergy 04-01-20 12 Other: See Comments [facility] Work Phone: (12 sources) Fish Oils Drug Allergy 07-24-19 22 skin erruptions [facility] (2 sources) Hmg-Coa Reductase Inhibitors (Statins) Propensity to adverse reactions 07-24-19 22 abdominal pain [facility] Work Phone: (13 sources) Onion extract; Translations: [onion] Drug Allergy 07-24-19 22 Vomiting [facility] (2 sources) Bronson Allergy to substance 07-24-19 22 Hives [facility] Work Phone: (10 sources) strawberry allergenic extract Drug Allergy 01-11-20 22 [facility] (1 source) Seasonal Allergies: Uncoded Allergy to substance 01-22-20 NEEDS FOLLOW-UP [facility] Work Phone: (10 sources) Iupafpm-Rzn-Azr Reductase Inhibitor Propensity to adverse reactions 01-11-20 22 Other [facility] Comment on above: ABDOMINAL PAIN (1 source) Fish Oils Drug Allergy 12-30-19 [facility] Repository (1 source) predniSONE Drug Allergy 12-30-19 [facility] Repository (1 source) Propoxyphene Drug Allergy 12-30-19 [facility] Medicine; [facility] Work Phone: PHOSPHORUS ([phone])Ordered By : Gas Fitter on 06-07-2022 Phosphate [Mass/Vol] 3.2 mg/dL Normal 3.0-4.3 Comp rehensive [facility]; [facility] Work Phone: SED RATE ERYTHROCYTE ([phone]) Ordered By: Gas Fitter on 06-07-2022 ESR (Bld) [Velocity] 15 mm/h [facility] 0-40 [facility] Work Phone: SPEP ([phone])Ordered By: Syst em Chip Separator on 06-07-2022 Albumin [Mass/Vol] 3.7 g/dL Normal 2.9-4.4 [facility]; [facility] Work Phone: Albumin/Globulin [Mass ratio] 1.1 {ratio} Normal 0.7-1.7 [facility]; [facility] Work Phone: Alpha 1 globulin Elph [Mass/Vol] 0.3 g/dL Normal 0.0-0.4 [facility]; [facility] Work Phone: Alpha 2 globulin Elph [Mass/Vol] 1.1 g/dL Abnormal 0.4-1.0 [facility]; [facility] Work Phone: Beta globulin Elph [Mass/Vol] 1.0 g/dL Normal 0.7-1.3 [facility]; [facility] Work Phone: Gamma globulin Elph [Mass/Vol] 0.9 g/dL Normal 0.4-1.8 [facility]; [facility] Work Phone: Globulin (S) [Mass/Vol] 3.3 g/dL Normal 2.2-3.9 [facility]; [facility] Work Phone: Laboratory comment Tarun (Report) SPRCS Normal [facility]; [facility] Work Phone: Laboratory report . Normal Compreh ensive [facility]; [facility] Work Phone: Protein [Mass/Vol] 7.0 g/dL Normal 6.0-8.5 Compre hens[facility]; [facility] Work Phone: Protein.monoclonal Elph [Mass/Vol] Not Observed Normal [facility]; [facility] Work Phone: TSH ([phone])Ordered By: Fly [employer]i Chip Separator on 06-07-2022 TSH Qn 1.450 {uIU/mL} Normal 0.450-4.50 0 [facility]; [facility] Work Phone: UPEP ([phone])Ordered By: Deskarma Chip Separator on 06-07-2022 Albumin Elph (U) [Mass fraction] 50.3 % Normal [facility]; [facility] Work Phone: Alpha 1 globulin Elph (U) [Mass fraction] 6.1 % Normal Comprehens[facility] e [facility]; [facility] Work Phone: Alpha 2 globulin Elph (U) [Mass fraction] 13.0 % Normal [facility]; [facility] Work Phone: Beta globulin Elph (U) [Mass fraction] 18.6 % Normal [facility]; [facility] Work Phone: Gamma globulin Elph (U) [Mass fraction] 12.0 % Normal [facility]; [facility] Work Phone: Protein (U) [Mass/Vol] 5.7 mg/dL Normal [facility]; [facility] Work Phone: Protein.monoclonal Elph (U) [Mass fraction] Not Observed Normal [facility]; [facility] Work Phone: VITAMIN D, 1, 25-DIHYDROXY ( [phone])Ordered By: Gas Fitter on 06-07-2022 1,25-dihydroxyvitamin D3 [Mass/Vol] 51.9 pg/mL Normal 24.8-81.5 [facility]; [facility] Work Phone: Vitamin D Hydroxy ([phone])Ord ered By: Gas Fitter on 06-07-2022 25-hydroxyvitamin D [Mass/Vol] 66.3 ng/mL Normal 30.0-100.0 [facility]; [facility] Work Phone: Blood Glucose , Office ([phone])Ordered By: Carole Villanueva on 02-04-2022 Glucose Glucometer (BldC) [Moles/Vol] 111 1 Normal [facility]; [facility] Work Phone: HgA1C , Office ([phone])Ordere d By: Carole Villanueva on 02-04-2022 HbA1c (Bld) [Mass fraction] 5.7 % Normal 4.6 - 7.1 [facility]; [facility] Work Phone: CALCIFEDIOL ([phone])Ordered B y: Gas Fitter on 01-30-2022 25-hydroxyvitamin D [Mass/Vol] 44.8 ng/mL Normal 30.0-100.0 [facility]; [facility] Work Phone: CBC W/AUTO DIFF WBC ([phone])O rdered By: Gas Fitter on 01-30-2022 Basophils (Bld) [#/Vol] 0.0 10*3/uL Normal 0.0-0.2 [facility]; [facility] Work Phone: Basophils/100 WBC (Bld) 1 % Normal [facility]; [facility] Work Phone: Eosinophils (Bld) [#/Vol] 0.4 10*3/uL Normal 0.0-0.4 [facility]; [facility] Work Phone: Eosinophils/100 WBC (Bld) 5 % Normal [facility]; [facility] Work Phone: Erythrocyte distribution width (RBC) [Ratio] 12.8 % Normal 11.7-15.4 [facility]; [facility] Work Phone: Hematocrit (Bld) [Volume fraction] 41.3 % Normal 34.0-46.6 [facility]; [facility] Work Phone: Hemoglobin (Bld) [Mass/Vol] 13.8 g/dL Normal 11.1-15.9 [facility]; [facility] Work Phone: Immature granulocytes (Bld) [#/Vol] 0.0 10*3/uL Normal 0.0-0.1 [facility]; [facility] Work Phone: Immature granulocytes/100 WBC (Bld) 0 % Normal [facility]; [facility] Work Phone: Lymphocytes (Bld) [#/Vol] 3.0 10*3/uL Normal 0.7-3.1 [facility]; [facility] Work Phone: Lymphocytes/100 WBC (Bld) 38 % Normal [facility]; [facility] Work Phone: MCH (RBC) [Entitic mass] 30.7 pg Normal 26.6-33.0 [facility]; [facility] Work Phone: MCHC (RBC) [Mass/Vol] 33.4 g/dL Normal 31.5-35.7 [facility] prehensive Internal Medicine; [facility] Work Phone: MCV (RBC) [Entitic vol] 92 fL Normal 79-97 [facility]; [facility] Work Phone: Monocytes (Bld) [#/Vol] 0.4 10*3/uL Normal 0.1-0.9 [facility]; [facility] Work Phone: Monocytes/100 WBC (Bld) 5 % Normal [facility]; [facility] Work Phone: Neutrophils (Bld) [#/Vol] 4.1 10*3/uL Normal 1.4-7.0 [facility]; [facility] Work Phone: Neutrophils/100 WBC (Bld) 51 % Normal [facility]; [facility] Work Phone: Platelets (Bld) [#/Vol] 291 10*3/uL Normal 150-450 [facility]; [facility] Work Phone: RBC (Bld) [#/Vol] 4.49 10*6/uL Normal 3.77-5.28 [facility] Internal [facility]; [facility] Work Phone: WBC (Bld) [#/Vol] 7.9 10*3/uL Normal 3.4-10.8 [facility] Internal [facility]; [facility] Work Phone: LIPID PANEL ([phone])Ordered B y: Gas Fitter on 01-30-2022 Cholesterol [Mass/Vol] 169 mg/dL Normal 100-199 [facility]; [facility] Work Phone: Cholesterol in HDL [Mass/Vol] 38 mg/dL Abnormal [facility]; [facility] Work Phone: Triglyceride [Mass/Vol] 227 mg/dL Abnormal 0-149 [facility]; [facility] Work Phone: LIPID PANEL ([phone]) 39 mg/dL Normal 5-40 [facility]; [facility] Work Phone: LIPID PANEL ([phone]) 92 mg/dL Normal 0-99 [facility] Internal Medicine; [facility] Work Phone: LIPID PANEL ([phone]) 2.4 {ratio} Normal 0.0-3.2 [facility] Internal Medicine; [facility] Work Phone: METABOLIC PANEL, COMPREHENSI VE ([phone])Ordered By: Gas Fitter on 01-30-2022 Albumin [Mass/Vol] 4.5 g/dL Normal 3.7-4.7 [facility] Internal Medicine; [facility] Work Phone: Albumin/Globulin [Mass ratio] 2.0 {ratio} Normal 1.2-2.2 [facility]; [facility] Work Phone: ALP [Catalytic activity/Vol] 72 U/L Normal 44-121 [facility]; [facility] Work Phone: ALT [Catalytic activity/Vol] 23 U/L Normal 0-32 [facility]; [facility] Work Phone: AST [Catalytic activity/Vol] 23 U/L Normal 0-40 [facility]; [facility] Work Phone: Bilirubin [Mass/Vol] 0.5 mg/dL Normal 0.0-1.2 [facility] rehensive Internal Medicine; [facility] Work Phone: Calcium [Mass/Vol] 9.7 mg/dL Normal 8.7-10.3 [facility]; [facility] Work Phone: Chloride [Moles/Vol] 103 mmol/L Normal 96-106 [facility] rehensive Internal Medicine; [facility] Work Phone: CO2 [Moles/Vol] 25 mmol/L Normal 20-29 [facility] Internal Medicine; [facility] Work Phone: Creatinine [Mass/Vol] 0.79 mg/dL Normal 0.57-1.00 [facility] Internal Medicine; [facility] Work Phone: Globulin (S) [Mass/Vol] 2.2 g/dL Normal 1.5-4.5 [facility]; [facility] Work Phone: Glucose [Mass/Vol] 108 mg/dL Abnormal 65-99 [facility] Internal [facility]; [facility] Work Phone: Potassium [Moles/Vol] 4.7 mmol/L Normal 3.5-5.2 [facility] Internal [facility]; [facility] Work Phone: Protein [Mass/Vol] 6.7 g/dL Normal 6.0-8.5 [facility] Internal Medicine; [facility] Work Phone: Sodium [Moles/Vol] 140 mmol/L Normal 134-144 [facility] Internal Medicine; [facility] Work Phone: Urea nitrogen [Mass/Vol] 15 mg/dL Normal 8-27 [facility]; [facility] Work Phone: Urea nitrogen/Creatinine [Mass ratio] 19 mg/mg Normal 12-28 [facility]; [facility] Work Phone: METABOLIC PANEL, COMPREHENSIVE ([phone]) 78 mL/min/1.73 [facility]; [facility] Work Phone: TSH ([phone])Ordered By: Serene laws Chip Separator on 01-30-2022 TSH Qn 1.920 {uIU/mL} Normal 0.450-4.50 0 [facility]; [facility] Work Phone: XR RIBS/CHEST 3V AP RIB/OBLS /CXR RIGHTon 09-13-2021 [facility] XR Ribs - right Views and Ch est PAon 09-13-2021 IMPRESSION: No right-sided rib fractures identified. No acute cardiopulmonary disease identified. Gold Leaf Layer: [place] Transcribe Date/Time: Sep 13 2021 7:44P Dictated by : JIM PHELPS MD This examination was interpreted and the report reviewed and electronically signed by: JIM PHELPS MD on Sep 13 2021 7:48PM EST DIVISION OF RADIOLOGY * * *Final Report* * * DATE OF EXAM: Sep 13 2021 7:28PM WOX [id number] - XR RIB/CHST 3V AP RIB/OBL/CHST R / PROCEDURE REASON: Rib pain on right side * * * * Physician Interpretation * * * * Chest and right-sided rib radiographs HISTORY: 75 years old Clinical information: Rib pain on right side pt leaned across cooler at grocery store a week and a half ago and felt something pop in her chest; pain TECHNIQUE: Images: XR RIB/CHST 3V AP RIB/OBL/CHST R Comparison: None. RESULT: Findings: No confluent infiltrate, effusion, or pneumothorax identified. Cardiac and mediastinal silhouettes are within normal limits. Atherosclerotic calcifications involving the aortic arch. No right-sided rib fractures are seen. DIVISION OF RADIOLOGY Provider, [facility] - 09/13/2021 * * *Final Report* * * DATE OF EXAM: Sep 13 2021 7:28PM WOX [id number] - XR RIB/CHST 3V AP RIB/OBL/CHST R / PROCEDURE REASON: Rib pain on right side * * * * Physician Interpretation * * * * Chest and right-sided rib radiographs HISTORY: 75 years old Clinical information: Rib pain on right side pt leaned across cooler at grocery store a week and a half ago and felt something pop in her chest; pain TECHNIQUE: Images: XR RIB/CHST 3V AP RIB/OBL/CHST R Comparison: None. RESULT: Findings: No confluent infiltrate, effusion, or pneumothorax identified. Cardiac and mediastinal silhouettes are within normal limits. Atherosclerotic calcifications involving the aortic arch. No right-sided rib fractures are seen. IMPRESSION IMPRESSION: No right-sided rib fractures identified. No acute cardiopulmonary disease identified. Gold Leaf Layer: PSCB Transcribe Date/Time: Sep 13 2021 7:44P Dictated by : JIM PHELPS MD This examination was interpreted and the report reviewed and electronically signed by: JIM PHELPS MD on Sep 13 2021 7:48PM EST [facility] Radiology Study observation (narrative) [facility] XR Ribs - right Views and Ch est PAOrdered By: Ccf Provider on 09-13-2021 [facility] Blood Glucose , Office [phone] 04-25-2021 Glucose Glucometer (BldC) [Moles/Vol] 104 1 Normal [facility]; [facility] Work Phone: HgA1C , Office ([phone])Ordere d By: Kenyatta Tabor on 04-25-2021 HbA1c (Bld) [Mass fraction] 5.7 % Normal 4.6 - 7.1 [facility]; [facility] Work Phone: CALCIFEDIOL ([phone])Ordered B y: Gas Fitter on 04-20-2021 25-hydroxyvitamin D [Mass/Vol] 71.8 ng/mL Normal 30.0-100.0 [facility]; [facility] Work Phone: CBC W/AUTO DIFF WBC ([phone])O rdered By: Gas Fitter on 04-20-2021 Basophils (Bld) [#/Vol] 0.0 10*3/uL Normal 0.0-0.2 [facility]; [facility] Work Phone: Basophils/100 WBC (Bld) 0 % Normal [facility]; [facility] Work Phone: Eosinophils (Bld) [#/Vol] 0.3 10*3/uL Normal 0.0-0.4 [facility]; [facility] Work Phone: Eosinophils/100 WBC (Bld) 4 % Normal [facility]; [facility] Work Phone: Erythrocyte distribution width (RBC) [Ratio] 12.8 % Normal 11.7-15.4 [facility]; [facility] Work Phone: Hematocrit (Bld) [Volume fraction] 42.6 % Normal 34.0-46.6 [facility]; [facility] Work Phone: Hemoglobin (Bld) [Mass/Vol] 14.3 g/dL Normal 11.1-15.9 [facility]; [facility] Work Phone: Immature granulocytes (Bld) [#/Vol] 0.0 10*3/uL Normal 0.0-0.1 [facility]; [facility] Work Phone: Immature granulocytes/100 WBC (Bld) 0 % Normal [facility]; [facility] Work Phone: Lymphocytes (Bld) [#/Vol] 3.8 10*3/uL Abnormal 0.7-3.1 [facility]; [facility] Work Phone: Lymphocytes/100 WBC (Bld) 43 % Normal [facility]; [facility] Work Phone: MCH (RBC) [Entitic mass] 30.9 pg Normal 26.6-33.0 [facility]; [facility] Work Phone: MCHC (RBC) [Mass/Vol] 33.6 g/dL Normal 31.5-35.7 [facility] prehensive Internal Medicine; [facility] Work Phone: MCV (RBC) [Entitic vol] 92 fL Normal 79-97 [facility]; [facility] Work Phone: Monocytes (Bld) [#/Vol] 0.4 10*3/uL Normal 0.1-0.9 [facility]; [facility] Work Phone: Monocytes/100 WBC (Bld) 5 % Normal [facility]; [facility] Work Phone: Neutrophils (Bld) [#/Vol] 4.3 10*3/uL Normal 1.4-7.0 [facility]; [facility] Work Phone: Neutrophils/100 WBC (Bld) 48 % Normal [facility]; [facility] Work Phone: Platelets (Bld) [#/Vol] 308 10*3/uL Normal 150-450 [facility]; [facility] Work Phone: RBC (Bld) [#/Vol] 4.63 10*6/uL Normal 3.77-5.28 [facility] [facility]; [facility] Work Phone: WBC (Bld) [#/Vol] 8.8 10*3/uL Normal 3.4-10.8 [facility]; [facility] Work Phone: LIPID PANEL ([id number])Ordered B y: Gas Fitter on 04-20-2021 Cholesterol [Mass/Vol] 154 mg/dL Normal 100-199 [facility]; [facility] Work Phone: Cholesterol in HDL [Mass/Vol] 40 mg/dL Normal [facility]; [facility] Work Phone: Triglyceride [Mass/Vol] 175 mg/dL Abnormal 0-149 [facility]; [facility] Work Phone: LIPID PANEL ([phone]) 30 mg/dL Normal 5-40 [facility]; [facility] Work Phone: LIPID PANEL ([id number]) 84 mg/dL Normal 0-99 [facility]; [facility] Work Phone: LIPID PANEL (60353) 2.1 {ratio} Normal 0.0-3.2 [facility] Internal Medicine; [facility] Work Phone: MAGNESIUM ([phone])Ordered By: Gas Fitter on 04-20-2021 Magnesium [Mass/Vol] 2.2 mg/dL Normal 1.6-2.3 [facility]; [facility] Work Phone: METABOLIC PANEL, COMPREHENSI VE ([phone])Ordered By: Gas Fitter on 04-20-2021 Albumin [Mass/Vol] 4.2 g/dL Normal 3.7-4.7 [facility] Medicine; [facility] Work Phone: Albumin/Globulin [Mass ratio] 1.8 {ratio} Normal 1.2-2.2 [facility]; [facility] Work Phone: ALP [Catalytic activity/Vol] 70 U/L Normal 44-121 [facility]; [facility] Work Phone: ALT [Catalytic activity/Vol] 28 U/L Normal 0-32 [facility]; [facility] Work Phone: AST [Catalytic activity/Vol] 22 U/L Normal 0-40 [facility] Internal Medicine; [facility] Medicine Work Phone: Bilirubin [Mass/Vol] 0.5 mg/dL Normal 0.0-1.2 [facility]; [facility] Work Phone: Calcium [Mass/Vol] 9.8 mg/dL Normal 8.7-10.3 [facility] Medicine; [facility] Work Phone: Chloride [Moles/Vol] 103 mmol/L Normal 96-106 [facility]; [facility] Work Phone: CO2 [Moles/Vol] 24 mmol/L Normal 20-29 [facility]; [facility] Work Phone: Creatinine [Mass/Vol] 0.88 mg/dL Normal 0.57-1.00 [facility] Internal Medicine; [facility] Work Phone: GFR/1.73 sq M.predicted among blacks CKD-EPI (S/P/Bld) [Vol rate/Area] 75 mL/min/1.73 Normal [facility]; [facility] Work Phone: GFR/1.73 sq M.predicted among non-blacks CKD-EPI (S/P/Bld) [Vol rate/Area] 65 mL/min/1.73 Normal [facility] Internal Medicine; [facility] Internal Medicine Work Phone: Globulin (S) [Mass/Vol] 2.3 g/dL Normal 1.5-4.5 [facility]; [facility] Work Phone: Glucose [Mass/Vol] 99 mg/dL Normal 65-99 [facility] Medicine; [facility] Work Phone: Potassium [Moles/Vol] 5.0 mmol/L Normal 3.5-5.2 [facility]; [facility] Work Phone: Protein [Mass/Vol] 6.5 g/dL Normal 6.0-8.5 [facility]; [facility] Work Phone: Sodium [Moles/Vol] 140 mmol/L Normal 134-144 [facility]; [facility] Work Phone: Urea nitrogen [Mass/Vol] 14 mg/dL Normal 8-27 [facility]; [facility] Work Phone: Urea nitrogen/Creatinine [Mass ratio] 16 mg/mg Normal 12-28 [facility]; [facility] Work Phone: MICROALBUMINOrdered By: Deskarma Chip Separator on 04-20-2021 Albumin DL <= 20 mg/L (U) [Mass/Vol] 12.9 ug/mL Normal [facility]; [facility] Work Phone: Albumin/Creatinine (U) [Mass ratio] 53 {mg/g_creat} Abnormal 0-29 [facility]; [facility] Work Phone: Creatinine (U) [Mass/Vol] 24.4 mg/dL Normal [facility]; [facility] Work Phone: PARATHORMONE ([phone])Ordered By: Gas Fitter on 04-20-2021 Parathyrin.intact [Mass/Vol] 27 pg/mL Normal 15-65 [facility]; [facility] Work Phone: PHOSPHORUS ([phone])Ordered By : Gas Fitter on 04-20-2021 Phosphate [Mass/Vol] 3.1 mg/dL Normal 3.0-4.3 [facility] Medicine; [facility] Work Phone: TSH ([phone])Ordered By: Syste m Chip Separator on 04-20-2021 TSH Qn 2.060 {uIU/mL} Normal 0.450-4.50 0 [facility]; [facility] Work Phone: URINALYSIS, W/ MICRO ([phone]) Ordered By: Gas Fitter on 04-20-2021 Appearance (U) Clear Normal [facility]; [facility] Work Phone: Bilirubin Ql (U) Negative Normal Compre[facility]; [facility] Work Phone: Color (U) Yellow Normal [facility]; [facility] Work Phone: Glucose Ql (U) Negative Normal [facility]; [facility] Work Phone: Hemoglobin Ql (U) Negative Normal Compreh ens[facility]; [facility] Work Phone: Ketones Ql (U) Negative Normal [facility]; [facility] Work Phone: Leukocyte esterase Test strip Ql (U) 2+ Abnormal [facility]; [facility] Work Phone: Microscopic observation LM Nom (Urine sed) See below: Normal [facility]; [facility] Work Phone: Nitrite Ql (U) Negative Normal [facility]; [facility] Work Phone: pH (U) 6.5 [pH] Normal 5.0-7.5 [facility]; [facility] Work Phone: Protein Ql (U) Negative Normal [facility]; [facility] Work Phone: Specific gravity (U) [Rel density] 1.006 1 Normal 1.005-1.03 0 [facility]; [facility] Work Phone: Urobilinogen (U) [Mass/Vol] 0.2 mg/dL Normal 0.2-1.0 [facility]; [facility] Work Phone: Blood Glucose , Office ([phone])Ordered By: Carole Villanueva on 12-13-2020 Glucose Glucometer (BldC) [Moles/Vol] 93 1 Normal [facility]; [facility] Work Phone: HgA1C , Office ([phone])Ordere d By: Carole Villanueva on 12-13-2020 HbA1c (Bld) [Mass fraction] 5.5 % Normal 4.6 - 7.1 [facility]; [facility] Work Phone: CALCIFIDIOL ([phone]) VIT D 25 Ordered By: Gas Fitter on 07-26-2020 25-Hydroxyvitamin D2+25-Hydroxyvitamin D3 [Mass/Vol] 93.1 ng/mL Normal 30.0-100.0 [facility]; [facility] Work Phone: Comment on above: Vitamin D deficiency has been defined by the [employer] ofMed[employer] and an Endocrine Society practice guideline as alevel of serum 25-OH vitamin D less than 20 ng/mL (1,2).The Endocrine Society went on to further define vitamin Dinsufficiency as a level between 21 and 29 ng/mL (2).1. IOM ([place] of Medicine). 2010. Dietary reference intakes for calcium and D. [place]: The National Academies Press.2. Néstor MF, Jorge NC, Justus ZHOU, et al. Evaluation, treatment, and prevention of vitamin D deficiency: an Endocrine Society clinical practice guideline. JCEM. 2010; 96(7):1911-30. Test(s) 861051-QWU-R ; 897989-PVX-T; 502457-Vplcvewhdeybo; 041986-Sukeynedzrt, Total; 565893-OGD-O (Total); 037276-Qiknb LDL-P; 905791-PNW Size; 565089-PA-LI Scorewas developed and its performance characteristics determinedby [employer]. It has not been cleared or approved by the Foodand Drug Administration.PATIENT WAS FASTINGPERFORMED BY: [facility] [address] [id number] BY: CB [facility] Zlbzdv9986 [facility] [id number] CBC W/AUTO DIFF WBC (58778)O rdered By: Gas Fitter on 07-26-2020 Basophils (Bld) [#/Vol] 0.1 {x10E3/uL} Normal 0.0-0.2 [facility]; [facility] Work Phone: Comment on above: Test(s) 496966-DIX-O ; 108120-SUJ-Q; 539088-Wvkzsnyplambx; 804418-Lnzhgfwxfpm, Total; 859338-AJX-V (Total); 351143-Laezz LDL-P; 840237-CLT Size; 924648-AE-CV Scorewas developed and its performance characteristics determinedby [employer]. It has not been cleared or approved by the Foodand Drug Administration.PATIENT WAS FASTINGPERFORMED BY: Sunglass[address] [id number] BY: [employer]70 [facility] [id number] Basophils (Bld) [#/Vol] 0.1 10*3/uL Normal 0.0-0.2 [facility]; [facility] Work Phone: Basophils/100 WBC (Bld) 1 % Normal [facility]; [facility] Work Phone: Comment on above: Test(s) 925661-FUF-I ; 474225-DRZ-Y; 047144-Tjzhgedajenoj; 167983-Eqrnlireztf, Total; 719180-UOE-O (Total); 368991-Fhtbi LDL-P; 172097-EAL Size; 891960-GQ-VP Scorewas developed and its performance characteristics determinedby [employer]. It has not been cleared or approved by the Foodand Drug Administration.PATIENT WAS FASTINGPERFORMED BY: N[employer] [address] [id number] BY: ObserveIT6370 [facility] [id number] Eosinophils (Bld) [#/Vol] 0.4 {x10E3/uL} Normal 0.0-0.4 [facility]; [facility] Work Phone: Comment on above: Test(s) 542139-PKY-Y ; 032099-TTA-X; 652053-Pcdrhmtakezin; 559894-Pdvmceqffld, Total; 395365-QSZ-C (Total); 484513-Oiyzo LDL-P; 783027-QUT Size; 586198-FU-UK Scorewas developed and its performance characteristics determinedby [employer]. It has not been cleared or approved by the Foodand Drug Administration.PATIENT WAS FASTINGPERFORMED BY: Nudge [address] [id number] BY: [employer] Dsmxei5412 [facility] [id number] Eosinophils (Bld) [#/Vol] 0.4 10*3/uL Normal 0.0-0.4 [facility]; [facility] Work Phone: Eosinophils/100 WBC (Bld) 5 % Normal [facility]; [facility] Work Phone: Comment on above: Test(s) 258126-JRO-O ; 101698-ENY-V; 735031-Rswwdhpgvbipr; 135193-Aekgeaxlumx, Total; 854468-CYA-Q (Total); 463325-Yqccl LDL-P; 206780-POT Size; 654969-RT-JY Scorewas developed and its performance characteristics determinedby [employer]. It has not been cleared or approved by the Foodand Drug Administration.PATIENT WAS FASTINGPERFORMED BY: Nudge [address] [id number] BY: [employer] Wdbqxe5069 [facility] [id number] Erythrocyte distribution width (RBC) [Ratio] 13.1 % Normal 11.7-15.4 [facility]; [facility] Work Phone: Comment on above: Test(s) 410613-LAE-Q ; 300608-OSC-B; 559208-Oguterzgkqugc; 201926-Bvxwhpoktwv, Total; 756244-YCC-I (Total); 431212-Ebeqe LDL-P; 736679-PRU Size; 923017-BK-MR Scorewas developed and its performance characteristics determinedby [employer]. It has not been cleared or approved by the Foodand Drug Administration.PATIENT WAS FASTINGPERFORMED BY: Nudge [address] [id number] BY: Omnireliant Anvkod1996 [facility] [id number] Hematocrit (Bld) [Volume fraction] 42.3 % Normal 34.0-46.6 [facility]; [facility] Work Phone: Comment on above: Test(s) 932714-GQA-R ; 572293-IAY-Q; 016096-Oeyfluucadbuk; 906265-Gstnuavftpb, Total; 226544-PSB-N (Total); 881914-Pgriq LDL-P; 828301-UFL Size; 410573-ZK-AA Scorewas developed and its performance characteristics determinedby [employer]. It has not been cleared or approved by the Foodand Drug Administration.PATIENT WAS FASTINGPERFORMED BY: Nudge [address] [id number] BY: [facility]70 [facility] [id number] Hemoglobin (Bld) [Mass/Vol] 14.3 g/dL Normal 11.1-15.9 [facility]; [facility] Work Phone: Comment on above: Test(s) 528155-ZGK-C ; 188262-EMP-J; 550908-Lqoerhvctfkyi; 900028-Ylpktsibttl, Total; 265184-HDY-P (Total); 553233-Uyzpe LDL-P; 178821-YMN Size; 084853-HQ-UH Scorewas developed and its performance characteristics determinedby [employer]. It has not been cleared or approved by the Foodand Drug Administration.PATIENT WAS FASTINGPERFORMED BY: Nudge [address] [id number] BY: [employer] Ujpgyl6869 [facility]Nov[facility] [id number] Immature granulocytes (Bld) [#/Vol] 0.0 {x10E3/uL} Normal 0.0-0.1 [facility]; [facility] Work Phone: Comment on above: Test(s) 239363-ABY-S ; 208381-LQB-W; 068233-Uwutiaucrdrln; 113951-Lsavasbohow, Total; 037419-DTZ-B (Total); 099767-Undkj LDL-P; 045491-HRE Size; 458311-XF-EI Scorewas developed and its performance characteristics determinedby [employer]. It has not been cleared or approved by the Foodand Drug Administration.PATIENT WAS FASTINGPERFORMED BY: Omnireliant[address] [id number] BY: OmnireliantThe Memorial Hospital of Salem CountyMyhifd3830 [facility] [id number] Immature granulocytes (Bld) [#/Vol] 0.0 10*3/uL Normal 0.0-0.1 [facility]; [facility] Work Phone: Immature granulocytes/100 WBC (Bld) 0 % Normal [facility]; [facility] Work Phone: Comment on above: Test(s) 213802-YBJ-O ; 642285-CRG-O; 888801-Weofqxubytspt; 361787-Mbvytdtwzpp, Total; 364757-MEE-U (Total); 326902-Wdmum LDL-P; 279268-EVD Size; 255940-CJ-SH Scorewas developed and its performance characteristics determinedby [employer]. It has not been cleared or approved by the Foodand Drug Administration.PATIENT WAS FASTINGPERFORMED BY: [employer] [address] [id number] BY: [employer] Eixjgp5566 [facility] [id number] Lymphocytes (Bld) [#/Vol] 3.5 {x10E3/uL} Abnormal 0.7-3.1 [facility]; [facility] Work Phone: Comment on above: Test(s) 791776-GGG-G ; 566702-SJE-I; 986537-Nwmhqgcjqqrda; 973151-Miqnsedzsdc, Total; 680647-SQB-K (Total); 166211-Zxcab LDL-P; 578359-UNB Size; 409774-WB-FC Scorewas developed and its performance characteristics determinedby [employer]. It has not been cleared or approved by the Foodand Drug Administration.PATIENT WAS FASTINGPERFORMED BY: Omnireliant[address] [id number] BY: OmnireliantThe Memorial Hospital of Salem CountyDdetrg8623 [facility] [id number] Lymphocytes (Bld) [#/Vol] 3.5 10*3/uL Abnormal 0.7-3.1 [facility]; [facility] Work Phone: Lymphocytes/100 WBC (Bld) 42 % Normal [facility]; [facility] Work Phone: Comment on above: Test(s) 590434-PCP-G ; 332903-JVE-K; 979257-Xmpcxsntdarsn; 852204-Poqpujhihvw, Total; 707970-MVT-X (Total); 641507-Jesno LDL-P; 910361-CYG Size; 670166-ID-RY Scorewas developed and its performance characteristics determinedby [employer]. It has not been cleared or approved by the Food[employer] Drug Administration.PATIENT WAS FASTINGPERFORMED BY: Nudge [address] [id number] BY: [employer] Lvkwcv6620 [facility] [id number] MCH (RBC) [Entitic mass] 30.6 pg Normal 26.6-33.0 [facility]; [facility] Work Phone: Comment on above: Test(s) 453013-LNY-W ; 915051-PKR-C; 640760-Vacgwrlgqfgdl; 508738-Jgtxcwvhzlo, Total; 096846-YTR-H (Total); 988089-Dsvrb LDL-P; 974172-FGR Size; 525407-HX-LU Scorewas developed and its performance characteristics determinedby [employer]. It has not been cleared or approved by the Foodand Drug Administration.PATIENT WAS FASTINGPERFORMED BY: Omnireliant[address] [id number] BY: OmnireliantThe Memorial Hospital of Salem CountyPuyzgd3723 [facility] [id number] MCHC (RBC) [Mass/Vol] 33.8 g/dL Normal 31.5-35.7 [facility] prehensive Internal Medicine; [facility] Work Phone: Comment on above: Test(s) 432416-KON-Z ; 369347-WAH-W; 219144-Rfbwworzkjwzl; 094398-Ousauqencuj, Total; 953709-JDZ-B (Total); 521302-Ukyse LDL-P; 575777-IWJ Size; 781940-WY-WY Scorewas developed and its performance characteristics determinedby [employer]. It has not been cleared or approved by the Foodand Drug Administration.PATIENT WAS FASTINGPERFORMED BY: VNG[address] [place] [address] [id number] BY: [facility]70 [facility]Ag[facility] [id number] MCV (RBC) [Entitic vol] 91 fL Normal 79-97 [facility]; [facility] Work Phone: Comment on above: Test(s) 507911-PCN-B ; 064386-LNG-W; 230129-Lnmseknxnvuxj; 259084-Kogduiwrqqu, Total; 149903-TFZ-U (Total); 940471-Rwnmq LDL-P; 955343-OWI Size; 071945-NG-IJ Scorewas developed and its performance characteristics determinedby [employer]. It has not been cleared or approved by the Foodand Drug Administration.PATIENT WAS FASTINGPERFORMED BY: [employer] [place] [address] [id number] BY: ObserveIT6370 [facility] [id number] Monocytes (Bld) [#/Vol] 0.5 {x10E3/uL} Normal 0.1-0.9 [facility]; [facility] Work Phone: Comment on above: Test(s) 724831-GAF-D ; 811151-RLG-O; 842234-Pocdoaeuqpdga; 497108-Cfrizqcmjrq, Total; 370228-UCQ-F (Total); 115908-Qafrd LDL-P; 433940-HWF Size; 922802-NU-XO Scorewas developed and its performance characteristics determinedby [employer]. It has not been cleared or approved by the Foodand Drug Administration.PATIENT WAS FASTINGPERFORMED BY: Nudge [address] [id number] BY: OmnireliantThe Memorial Hospital of Salem CountyRzfbxq6020 [facility] [id number] Monocytes (Bld) [#/Vol] 0.5 10*3/uL Normal 0.1-0.9 [facility]; [facility] Work Phone: Monocytes/100 WBC (Bld) 6 % Normal [facility]; [facility] Work Phone: Comment on above: Test(s) 067810-EFY-X ; 965293-ETD-E; 438672-Mmlfcwvbjmcbz; 261056-Oobkinwhwjd, Total; 242416-WRR-C (Total); 818581-Bmqal LDL-P; 039702-CXA Size; 429624-QD-NA Scorewas developed and its performance characteristics determinedby [employer]. It has not been cleared or approved by the Foodand Drug Administration.PATIENT WAS FASTINGPERFORMED BY: Nudge [address] [id number] BY: [employer] Zmkzsu9761 [facility] [id number] Neutrophils (Bld) [#/Vol] 3.8 {x10E3/uL} Normal 1.4-7.0 [facility]; [facility] Work Phone: Comment on above: Test(s) 397743-QKF-C ; 781961-JZO-U; 946048-Qsmcppgzhkdlh; 326030-Qlivnsawigj, Total; 314495-TTB-U (Total); 487476-Zloef LDL-P; 505887-MYP Size; 650296-UX-VF Scorewas developed and its performance characteristics determinedby [employer]. It has not been cleared or approved by the Foodand Drug Administration.PATIENT WAS FASTINGPERFORMED BY: Nudge [address] [id number] BY: ObserveIT6370 [facility] [id number] Neutrophils (Bld) [#/Vol] 3.8 10*3/uL Normal 1.4-7.0 [facility]; [facility] Work Phone: Neutrophils/100 WBC (Bld) 46 % Normal [facility]; [facility] Work Phone: Comment on above: Test(s) 315558-NHF-N ; 344606-YVA-Y; 605960-Havyxcbnwzudp; 634776-Gmsdxnpxnpa, Total; 810145-ORL-X (Total); 280911-Xccmp LDL-P; 198976-OCT Size; 655989-HB-FE Scorewas developed and its performance characteristics determinedby [employer]. It has not been cleared or approved by the Foodand Drug Administration.PATIENT WAS FASTINGPERFORMED BY: Sunglass[address] [id number] BY: ObserveIT6370 [facility] [id number] Platelets (Bld) [#/Vol] 286 {x10E3/uL} Normal 150-450 [facility]; [facility] Work Phone: Comment on above: Test(s) 766609-NYV-C ; 630531-JVT-D; 309814-Pisvllqsjoydy; 090777-Fodxltplvfi, Total; 087116-BLZ-R (Total); 883805-Ockiu LDL-P; 840131-NBK Size; 947277-DN-UA Scorewas developed and its performance characteristics determinedby [employer]. It has not been cleared or approved by the Foodand Drug Administration.PATIENT WAS FASTINGPERFORMED BY: Nudge [address] [id number] BY: ObserveIT6370 [facility] [id number] Platelets (Bld) [#/Vol] 286 10*3/uL Normal 150-450 [facility]; [facility] Work Phone: RBC (Bld) [#/Vol] 4.67 {x10E6/uL} Normal 3.77-5.28 [facility]; [facility] Work Phone: Comment on above: Test(s) 181059-ZMX-T ; 608737-QNW-V; 101333-Vterlhdtoawdg; 732999-Qqpltufoyfl, Total; 556218-MSG-R (Total); 067124-Cibsn LDL-P; 343989-JQB Size; 496575-JM-MI Scorewas developed and its performance characteristics determinedby [employer]. It has not been cleared or approved by the Foodand Drug Administration.PATIENT WAS FASTINGPERFORMED BY: Sunglass[address] [id number] BY: [facility]70 [facility] [id number] RBC (Bld) [#/Vol] 4.67 10*6/uL Normal 3.77-5.28 [facility]; [facility] Work Phone: WBC (Bld) [#/Vol] 8.2 {x10E3/uL} Normal 3.4-10.8 [facility]; [facility] Work Phone: Comment on above: Test(s) 873103-SSE-K ; 446574-EJK-H; 724971-Hxmjltpllqssj; 793095-Ohhmqmiapig, Total; 371399-KJL-Q (Total); 049763-Fflzv LDL-P; 228494-AVX Size; 435817-QL-MN Scorewas developed and its performance characteristics determinedby [employer]. It has not been cleared or approved by the Foodand Drug Administration.PATIENT WAS FASTINGPERFORMED BY: Nudge [address] [id number] BY: [employer]70 [facility] [id number] WBC (Bld) [#/Vol] 8.2 10*3/uL Normal 3.4-10.8 [facility]; [facility] Work Phone: HEPATITIS C ANTIBODY (52603) Ordered By: Gas Fitter on 07-26-2020 HCV Ab Signal/Cutoff IA [Rel units/Vol] {ratio} Normal 0.0-0.9 [facility]; [facility] Work Phone: Comment on above: Negative: < 0.8 Inde terminate: 0.8 - 0.9 Positive: > 0.9 . The CDC recommends that a positive HCV antibody result be followed up with a HCV Nucleic Acid Amplification test (379989). Test(s) 629281-WSA-M ; 862090-INQ-U; 743061-Byvdeekfaezis; 734978-Amzakrgpupq, Total; 402439-KOK-S (Total); 542103-Vddrk LDL-P; 964004-FSQ Size; 260650-DZ-IQ Scorewas developed and its performance characteristics determinedby [employer]. It has not been cleared or approved by the Foodand Drug Administration.PATIENT WAS FASTINGPERFORMED BY: Sunglass[address] [id number] BY: [employer] Ktwbua1892 [facility] [id number] HCV Ab Signal/Cutoff IA [Rel units/Vol] {ratio} Normal 0.0-0.9 [facility]; [facility] Work Phone: HGB A1C (87141)Ordered By: S ystem Chip Separator on 07-26-2020 HbA1c (Bld) [Mass fraction] 5.7 % Abnormal 4.8-5.6 [facility]; [facility] Work Phone: Comment on above: . Prediabetes: 5.7 - 6.4 Diabetes: >6.4 Glycemic control for adults with diabetes: <7.0 Test(s) 478671-SWV-S ; 801378-FFO-X; 039520-Bqbqtlnfhuhlv; 511406-Uyemozfdwms, Total; 190783-OEJ-F (Total); 434080-Qmomf LDL-P; 074504-JVY Size; 832416-AW-SM Scorewas developed and its performance characteristics determinedby [employer]. It has not been cleared or approved by the Foodand Drug Administration.PATIENT WAS FASTINGPERFORMED BY: Sunglasston1447 [facility] [id number] BY: ObserveIT6370 [facility] [id number] METABOLIC PANEL, COMPREHENSI VE (09828)Ordered By: Gas Fitter on 07-26-2020 Albumin [Mass/Vol] 4.4 g/dL Normal 3.7-4.7 [facility] Internal [facility]; [facility] Work Phone: Comment on above: Test(s) 538120-FBE-W ; 818119-SIM-S; 019760-Qmnsqiymqbsik; 103584-Ticwwonkgvf, Total; 411014-GVZ-Q (Total); 792925-Raasj LDL-P; 485903-DQU Size; 943970-AX-OV Scorewas developed and its performance characteristics determinedby [employer]. It has not been cleared or approved by the Foodand Drug Administration.PATIENT WAS FASTINGPERFORMED BY: Nudge [address] [id number] BY: ObserveIT6370 [facility] [id number] Albumin/Globulin [Mass ratio] 1.6 {ratio} Normal 1.2-2.2 [facility]; [facility] Work Phone: Comment on above: Test(s) 700706-EON-A ; 462202-AAJ-N; 099675-Euzffjuteybyx; 943037-Xykyhlohtqj, Total; 873670-ODS-I (Total); 709294-Hlojx LDL-P; 674961-SXE Size; 412221-AB-CN Scorewas developed and its performance characteristics determinedby [employer]. It has not been cleared or approved by the Foodand Drug Administration.PATIENT WAS FASTINGPERFORMED BY: Nudge [address] [id number] BY: mySkin Fbbyns0440 [facility] [id number] ALP [Catalytic activity/Vol] 82 [iU]/L Normal 39-117 [facility]; [facility] Work Phone: Comment on above: Test(s) 432740-FTF-G ; 428956-ATG-L; 153029-Ivlvlxzwhihqe; 829982-Ouwpzsjcvme, Total; 631662-USM-O (Total); 409758-Irfhq LDL-P; 295493-AZY Size; 921777-OO-SA Scorewas developed and its performance characteristics determinedby [employer]. It has not been cleared or approved by the Foodand Drug Administration.PATIENT WAS FASTINGPERFORMED BY: Omnireliant[address] [id number] BY: OmnireliantThe Memorial Hospital of Salem CountyBehttn2095 [facility] [id number] ALP [Catalytic activity/Vol] 82 U/L Normal 39-117 [facility]; [facility] Work Phone: ALT [Catalytic activity/Vol] 30 [iU]/L Normal 0-32 [facility]; [facility] Work Phone: Comment on above: Test(s) 450127-YCC-Q ; 825205-ZJW-V; 242337-Anthtbkiwiqto; 740754-Fbcltseaxpi, Total; 934300-HOR-I (Total); 777521-Jkgxi LDL-P; 441443-KMO Size; 267752-AR-QN Scorewas developed and its performance characteristics determinedby [employer]. It has not been cleared or approved by the Foodand Drug Administration.PATIENT WAS FASTINGPERFORMED BY: Omnireliant[address] [id number] BY: OmnireliantThe Memorial Hospital of Salem CountyTowvel0952 [facility] [id number] ALT [Catalytic activity/Vol] 30 U/L Normal 0-32 [facility]; [facility] Work Phone: AST [Catalytic activity/Vol] 26 [iU]/L Normal 0-40 [facility]; [facility] Work Phone: Comment on above: Test(s) 952421-HOK-S ; 924560-MDG-K; 214897-Juwdqbzotezyn; 633398-Omrsbubunhm, Total; 556516-MDC-A (Total); 369592-Bulfp LDL-P; 572714-OJF Size; 580913-AG-ZU Scorewas developed and its performance characteristics determinedby [employer]. It has not been cleared or approved by the Foodand Drug Administration.PATIENT WAS FASTINGPERFORMED BY: Nudge [address] [id number] BY: [employer] Kdqvrr5062 [facility] [id number] AST [Catalytic activity/Vol] 26 U/L Normal 0-40 [facility]; [facility] Work Phone: Bilirubin [Mass/Vol] 0.5 mg/dL Normal 0.0-1.2 [facility] Internal Medicine; [facility] Work Phone: Comment on above: Test(s) 330040-ZHK-E ; 182747-VKT-P; 005038-Khcwpvtejrdps; 591617-Cjtshgjvpao, Total; 747444-AYS-M (Total); 895542-Tseij LDL-P; 448064-AYF Size; 957232-WJ-CE Scorewas developed and its performance characteristics determinedby [employer]. It has not been cleared or approved by the Foodand Drug Administration.PATIENT WAS FASTINGPERFORMED BY: Nudge [address] [id number] BY: mySkin Aqxxad6377 [facility] [id number] Calcium [Mass/Vol] 10.1 mg/dL Normal 8.7-10.3 [facility] Internal Medicine; [facility] Internal Medicine Work Phone: Comment on above: Test(s) 553097-SJF-F ; 898638-XYB-D; 756979-Giluwpwrtlbyu; 745393-Osmhdlntrgd, Total; 187142-SPK-N (Total); 879964-Zdmgx LDL-P; 636116-HBN Size; 291369-FY-JS Scorewas developed and its performance characteristics determinedby [employer]. It has not been cleared or approved by the Foodand Drug Administration.PATIENT WAS FASTINGPERFORMED BY: Nudge [address] [id number] BY: eyeSight Mobile Technologieslin6370 [facility] [id number] Chloride [Moles/Vol] 101 mmol/L Normal 96-106 [facility]; [facility] Work Phone: Comment on above: Test(s) 268456-JGL-X ; 540640-QPN-V; 314931-Ylmyqbhjbjyfi; 030972-Fadjapubxpw, Total; 977954-IIE-I (Total); 792844-Vqicf LDL-P; 604769-XAF Size; 887109-QF-BI Scorewas developed and its performance characteristics determinedby [employer]. It has not been cleared or approved by the Foodand Drug Administration.PATIENT WAS FASTINGPERFORMED BY: Sunglass[address] [id number] BY: eyeSight Mobile Technologieslin6370 [facility] [id number] CO2 [Moles/Vol] 25 mmol/L Normal 20-29 [facility] Internal Medicine; [facility] Work Phone: Comment on above: Test(s) 730487-WLB-O ; 883096-RYM-H; 865980-Vhlgaazgnyaqh; 171408-Tzqrrmnuozi, Total; 393901-XBA-Z (Total); 884330-Ynebi LDL-P; 386445-FUZ Size; 936695-NX-UP Scorewas developed and its performance characteristics determinedby [employer]. It has not been cleared or approved by the Foodand Drug Administration.PATIENT WAS FASTINGPERFORMED BY: Sunglass[address] [id number] BY: mySkin Pvfvkm4540 [facility] [id number] Creatinine [Mass/Vol] 0.91 mg/dL Normal 0.57-1.00 [facility] prehensive Internal Medicine; [facility] Work Phone: Comment on above: Test(s) 128126-IYO-O ; 167742-JFB-S; 054594-Skcgzijwjtjrc; 631575-Vjbhrdmlfat, Total; 309142-FWA-H (Total); 526265-Gaqmy LDL-P; 904397-DTE Size; 246273-UA-DK Scorewas developed and its performance characteristics determinedby [employer]. It has not been cleared or approved by the Foodand Drug Administration.PATIENT WAS FASTINGPERFORMED BY: Omnireliant[address] [id number] BY: [facility] OhioLP33.TVKimberly Ville 8076070 [facility] [id number] GFR/1.73 sq M predicted among blacks CKD-EPI (S/P/Bld) [Vol rate/Area] 72 mL/min/1.73 Normal [facility]; [facility] Work Phone: Comment on above: Test(s) 944790-TXE-E ; 841334-RQV-Z; 598899-Pblxreigeamdl; 161467-Aqntapvhilj, Total; 927707-NUK-F (Total); 871961-Cvvao LDL-P; 481695-XPQ Size; 731756-CF-UT Scorewas developed and its performance characteristics determinedby [employer]. It has not been cleared or approved by the Foodand Drug Administration.PATIENT WAS FASTINGPERFORMED BY: Nudge [address] [id number] BY: OmnireliantThe Memorial Hospital of Salem CountyHapwmv4572 [facility] [id number] GFR/1.73 sq M predicted among non-blacks CKD-EPI (S/P/Bld) [Vol rate/Area] 63 mL/min/1.73 Normal [facility]; [facility] Work Phone: Comment on above: Test(s) 098427-WDZ-O ; 100224-COR-F; 937407-Bgxyoroarsfwn; 040368-Ksrjcfrcsdl, Total; 701084-DZQ-F (Total); 214617-Filft LDL-P; 865195-AFW Size; 069804-KG-JI Scorewas developed and its performance characteristics determinedby [employer]. It has not been cleared or approved by the Foodand Drug Administration.PATIENT WAS FASTINGPERFORMED BY: [employer] [address] [id number] BY: [employer] Dtsfzc9914 [facility] [id number] Globulin (S) [Mass/Vol] 2.8 g/dL Normal 1.5-4.5 [facility] Internal Medicine; [facility] Work Phone: Comment on above: Test(s) 960782-NEF-G ; 614439-DDR-Q; 567026-Wcmgcfbdgxvqy; 335688-Qnilcdmfuag, Total; 342413-UVK-F (Total); 965841-Mhdbm LDL-P; 744474-ERG Size; 150936-YC-TA Scorewas developed and its performance characteristics determinedby [employer]. It has not been cleared or approved by the Foodand Drug Administration.PATIENT WAS FASTINGPERFORMED BY: Sunglass[address] [id number] BY: ObserveIT6370 [facility] [id number] Glucose [Mass/Vol] 104 mg/dL Abnormal 65-99 [facility] Internal Medicine; [facility] Work Phone: Comment on above: Test(s) 262578-CFE-J ; 661736-DBG-K; 089953-Tkrqscuhoylzt; 334916-Opluxzzcvbz, Total; 019989-JJN-L (Total); 851621-Nsukn LDL-P; 985752-ZWY Size; 744519-RW-ZO Scorewas developed and its performance characteristics determinedby [employer]. It has not been cleared or approved by the Foodand Drug Administration.PATIENT WAS FASTINGPERFORMED BY: Nudge [address] [id number] BY: Direct Media TechnologiesThe Memorial Hospital of Salem CountyJhagyh5141 [facility] [id number] Potassium [Moles/Vol] 4.5 mmol/L Normal 3.5-5.2 [facility] prehensive Internal Medicine; [facility] Work Phone: Comment on above: Test(s) 673225-ZWR-M ; 040352-PDC-Q; 406304-Soejyrtbqcmgx; 996406-Vloiduiaglk, Total; 553756-FDH-I (Total); 277695-Cvfik LDL-P; 979883-IWM Size; 977951-VP-EU Scorewas developed and its performance characteristics determinedby [employer]. It has not been cleared or approved by the Foodand Drug Administration.PATIENT WAS FASTINGPERFORMED BY: Twenga[address] [id number] BY: Omnireliant Bzfllh2860 [place] CultureIQNovant Health [facility] [id number] Protein [Mass/Vol] 7.2 g/dL Normal 6.0-8.5 [facility] Internal Medicine; [facility] Work Phone: Comment on above: Test(s) 959403-DMX-B ; 896399-CLJ-Q; 424165-Szyxrpapqrcra; 788588-Nvalkmpyymb, Total; 702709-ABB-B (Total); 563712-Ncrnw LDL-P; 481283-MRA Size; 592985-KC-LC Scorewas developed and its performance characteristics determinedby [employer]. It has not been cleared or approved by the Foodand Drug Administration.PATIENT WAS FASTINGPERFORMED BY: Nudge [address] [id number] BY: [employer]70 [address] CultureIQNovant Health [facility] Center [id number] Sodium [Moles/Vol] 141 mmol/L Normal 134-144 [facility] Internal Medicine; [facility] Work Phone: Comment on above: Test(s) 361299-SMY-P ; 609958-XBW-Z; 754120-Bzlqzfukubrze; 684152-Evopbsegrss, Total; 140490-TUD-O (Total); 517502-Xiylq LDL-P; 578590-SFW Size; 009153-EV-RK Scorewas developed and its performance characteristics determinedby [employer]. It has not been cleared or approved by the Foodand Drug Administration.PATIENT WAS FASTINGPERFORMED BY: Omnireliant[address] [id number] BY: [employer] Jbrtvn2510 [facility] [id number] Urea nitrogen [Mass/Vol] 15 mg/dL Normal 8-27 [facility]; [facility] Work Phone: Comment on above: Test(s) 038001-WTD-U ; 579993-EOR-G; 926804-Jwjtdwmamtqik; 492723-Nmhcbuvtfem, Total; 732706-CKG-P (Total); 066877-Iwckv LDL-P; 991808-QSS Size; 379837-ZE-EZ Scorewas developed and its performance characteristics determinedby [employer]. It has not been cleared or approved by the Foodand Drug Administration.PATIENT WAS FASTINGPERFORMED BY: Sunglass[address] [id number] BY: [employer]70 [facility]asBo[facility] Hospital Center [id number] Urea nitrogen/Creatinine [Mass ratio] 16 mg/mg Normal 12- [facility]; [facility] Work Phone: Comment on above: Test(s) 357412-JLE-Q ; 288622-JIR-N; 054550-Lqexycgixlzkj; 441636-Jcznngmubli, Total; 663360-PFY-J (Total); 650409-Ffcwg LDL-P; 745827-RIC Size; 455774-LS-JQ Scorewas developed and its performance characteristics determinedby [employer]. It has not been cleared or approved by the Foodand Drug Administration.PATIENT WAS FASTINGPERFORMED BY: Sunglass[address] [id number] BY: ObserveIT6370 [facility] [id number] MICROALBUMINOrdered By: Syst em Chip Separator on 07-26-2020 Albumin DL <= 20 mg/L (U) [Mass/Vol] 46.5 ug/mL Normal [facility]; [facility] Work Phone: Comment on above: Test(s) 468293-HNJ-B ; 647425-RVW-W; 641625-Fdtnutmuaygfu; 261249-Kgrpoztuyyd, Total; 115330-JQU-R (Total); 267406-Kjngk LDL-P; 460258-AVR Size; 981242-IS-KU Scorewas developed and its performance characteristics determinedby [employer]. It has not been cleared or approved by the Foodand Drug Administration.PATIENT WAS FASTINGPERFORMED BY: Nudge [address] [id number] BY: [employer] Jetbpr9272 LoraxAgAtrium Health [facility]burg [id number] Albumin/Creatinine (U) [Mass ratio] 57 {mg/g_creat} Abnormal 0-29 [facility]; [facility] Work Phone: Comment on above: Normal: 0 - 29 Moder ately increased: 30 - 300 Severely increased: >300 Test(s) 779700-YMJ-S ; 387897-JTX-B; 957448-Ovqlalcpuchjn; 497125-Sumkuimuasw, Total; 983398-ESN-J (Total); 366083-Hcrwl LDL-P; 163421-LXY Size; 465987-HU-ZR Scorewas developed and its performance characteristics determinedby [employer]. It has not been cleared or approved by the Foodand Drug Administration.PATIENT WAS FASTINGPERFORMED BY: Nudge [address] [id number] BY: [facility] [employer]70 LoraxAgAtrium Health [facility]burg [id number] Creatinine (U) [Mass/Vol] 81.8 mg/dL Normal [facility]; [facility] Work Phone: Comment on above: Test(s) 389750-OHG-W ; 660905-IVK-T; 308860-Xyfaesomodikl; 567790-Dkrrqgkejch, Total; 559372-DAX-K (Total); 104488-Kattx LDL-P; 555486-RQK Size; 943941-CY-IY Scorewas developed and its performance characteristics determinedby [employer]. It has not been cleared or approved by the Foodand Drug Administration.PATIENT WAS FASTINGPERFORMED BY: Nudge [address] [id number] BY: eyeSight Mobile Technologieslin6370 [place] CultureIQNovant Health [facility] Center [id number] NMR Profile (87735)Ordered B y: Gas Fitter on 07-26-2020 Cholesterol [Mass/Vol] 187 mg/dL Normal 100-199 [facility]; [facility] Work Phone: Comment on above: Test(s) 686009-KGM-D ; 864614-DYE-Y; 048582-Yjzvrfgapncdb; 536382-Crboesptcrb, Total; 166129-JXP-V (Total); 540271-Tbsgb LDL-P; 155331-VVL Size; 164270-KU-PO Scorewas developed and its performance characteristics determinedby [employer]. It has not been cleared or approved by the Foodand Drug Administration.PATIENT WAS FASTINGPERFORMED BY: [facility] [id number] BY: HandmarkAtrium Health [facility]burg [id number] Lipoprotein.alpha [Moles/Vol] 33.3 umol/L Normal [facility]; [facility] Work Phone: Comment on above: Test(s) 541322-UTP-W ; 838616-OUJ-P; 398274-Agvqsliyyvsli; 820907-Okvgvutabmz, Total; 469410-LYG-V (Total); 480287-Kbvep LDL-P; 442596-KCH Size; 585864-DJ-BQ Scorewas developed and its performance characteristics determinedby [employer]. It has not been cleared or approved by the Foodand Drug Administration.PATIENT WAS FASTINGPERFORMED BY: [facility] [id number] BY: [facility] [employer]70 LoraxAgAtrium Health [facility] [id number] Lipoprotein.beta.subp article [Entitic length] 20.1 nm Abnormal [facility]; [facility] Work Phone: Comment on above: INTERPRETATIVE INFORMATION PARTICLE CONCENTRATION AND SIZE <--Lower CVD Risk Higher CVD Risk--> LDL AND HDL PARTICLES Percentile in Reference Population HDL-P (total) High 75th 50th 25th Low >34.9 34.9 30.5 26.7 <26.7 . Small LDL-P Low 25th 50th 75th High <117 117 527 839 >839 . LDL Size <-Large (Pattern A)-> <-Small (Pattern B)-> 23.0 20.6 20.5 19.0 Small LDL-P and LDL Size are associated with CVD risk, but not afterLDL-P is taken into account. Test(s) 500384-ZBE-H ; 761208-UPA-K; 351101-Jikqkeewakpzt; 045537-Hztitycfuzm, Total; 806506-YIH-Q (Total); 660355-Wfblj LDL-P; 381834-DFR Size; 113914-TF-UN Scorewas developed and its performance characteristics determinedby [employer]. It has not been cleared or approved by the Foodand Drug Administration.PATIENT WAS FASTINGPERFORMED BY: [employer] [address] [id number] BY: [facility] [address] [id number] Lipoprotein.beta.subp article [Moles/Vol] 1432 nmol/L Abnormal Comprehensiv e Internal Medicine; [facility] Work Phone: Comment on above: Low < 1000 Moderate 1000 - 1299 Borderline-High 1300 - 1599 High 1600 - 2000 Very High > 2000 Test(s) 032725-EQB-S ; 575886-OPL-N; 902889-Qeglxkhnlukax; 437246-Yohvsgqchyp, Total; 010699-LMR-H (Total); 354394-Nwtlx LDL-P; 673361-LVF Size; 198266-PV-VS Scorewas developed and its performance characteristics determinedby [employer]. It has not been cleared or approved by the Foodand Drug Administration.PATIENT WAS FASTINGPERFORMED BY: Twenga[address] [id number] BY: OmnireliantThe Memorial Hospital of Salem CountyXgvrsx5994 [facility] [id number] Lipoprotein.beta.subp article.small [Moles/Vol] 940 nmol/L Abnormal [facility]; [facility] Work Phone: Comment on above: Test(s) 268048-CIO-X ; 334421-WQJ-X; 979849-Ghdstbibceuvq; 453330-Cabxpqiavsh, Total; 234246-HLR-C (Total); 737863-Cjmzs LDL-P; 028508-YUA Size; 343120-HE-GL Scorewas developed and its performance characteristics determinedby [employer]. It has not been cleared or approved by the Foodand Drug Administration.PATIENT WAS FASTINGPERFORMED BY: Nudge [address] [id number] BY: eyeSight Mobile Technologieslin6370 [facility] [id number] Triglyceride [Mass/Vol] 233 mg/dL Abnormal 0-149 [facility]; [facility] Work Phone: Comment on above: Test(s) 586477-TWN-M ; 479339-LVL-Z; 620916-Zyafxzpkeoych; 116914-Habgqdlyasg, Total; 271233-IWQ-G (Total); 584287-Gjtju LDL-P; 310303-VAR Size; 448804-EE-JL Scorewas developed and its performance characteristics determinedby [employer]. It has not been cleared or approved by the Foodand Drug Administration.PATIENT WAS FASTINGPERFORMED BY: Twenga[address] [id number] BY: Direct Media TechnologiesThe Memorial Hospital of Salem CountyYuoaxr4713 [facility] [id number] NMR Profile (22071) 104 mg/dL Abnormal 0-99 Compr ehensive Internal Medicine; [facility] Work Phone: Comment on above: . Optimal < 100 Abov e optimal 100 - 129 Borderline 130 - 159 High 160 - 189 Very high > 189 . Test(s) 423997-WMF-K ; 226370-LTK-D; 114066-Ooqahbspbrbjg; 123266-Vavxtnmcdwi, Total; 874452-NNB-J (Total); 421805-Rmejv LDL-P; 348255-FRG Size; 557652-EP-GC Scorewas developed and its performance characteristics determinedby [employer]. It has not been cleared or approved by the Foodand Drug Administration.PATIENT WAS FASTINGPERFORMED BY: Nudge [address] [id number] BY: [employer]70 [facility] [id number] NMR Profile (31867) 43 mg/dL Normal [facility] ehensive Internal Medicine; [facility] Work Phone: Comment on above: Test(s) 776966-AUM-B ; 618343-MYG-S; 430301-Rtsspfkgcmipk; 056000-Mnxfawcrnbp, Total; 478248-CXF-N (Total); 487417-Qemgu LDL-P; 869820-HNT Size; 441317-QZ-LF Scorewas developed and its performance characteristics determinedby [employer]. It has not been cleared or approved by the Foodand Drug Administration.PATIENT WAS FASTINGPERFORMED BY: Nudge [address] [id number] BY: mySkin Qymrap1903 [facility] [id number] NMR Profile (32020) 233 mg/dL Abnormal 0-149 [facility] ehensive Internal Medicine; [facility] Work Phone: NMR Profile (39059) 187 mg/dL Normal 100-199 [facility] ehensive Internal Medicine; [facility] Work Phone: TSH (50079)Ordered By: Serene Rodarte on 07-26-2020 TSH Qn 1.710 {uIU/mL} Normal 0.450-4.50 0 [facility]; [facility] Work Phone: Comment on above: Test(s) 304902-OKJ-O ; 843476-MMJ-Q; 825882-Ypxrpltgupsmh; 389346-Idaptjwionv, Total; 952216-QKC-N (Total); 135688-Bbutv LDL-P; 677661-ATP Size; 938380-FU-PG Scorewas developed and its performance characteristics determinedby [employer]. It has not been cleared or approved by the Foodand Drug Administration.PATIENT WAS FASTINGPERFORMED BY: Sunglass[address] [id number] BY: [employer]70 [facility] [id number] URINALYSIS, W/ MICRO (37684) Ordered By: Gas Fitter on 07-26-2020 Appearance (U) Cloudy Abnormal Comprehens ashley Internal Medicine; [facility] Work Phone: Comment on above: Test(s) 581598-TJB-V ; 614817-KEV-S; 384397-Xnrxczfomunpv; 823842-Scjlzvnswcd, Total; 397318-KIM-X (Total); 692110-Ldkdn LDL-P; 664484-KVH Size; 717789-UH-NE Scorewas developed and its performance characteristics determinedby [employer]. It has not been cleared or approved by the Foodand Drug Administration.PATIENT WAS FASTINGPERFORMED BY: Nudge [address] [id number] BY: ObserveIT6370 [facility] SystemTuneAtrium Health [facility] [id number] Bilirubin Ql (U) Negative Normal Comprehe nsive Internal Medicine; [facility] Work Phone: Comment on above: Test(s) 327574-LGD-Q ; 066827-ZDO-Y; 377779-Asfzxiwfqkbpy; 589970-Zoqzyhixiqd, Total; 987145-GAM-I (Total); 956495-Bkayy LDL-P; 248347-NLX Size; 038622-GD-QY Scorewas developed and its performance characteristics determinedby [employer]. It has not been cleared or approved by the Foodand Drug Administration.PATIENT WAS FASTINGPERFORMED BY: Sunglass[address] [id number] BY: [facility] [employer]70 [facility] [id number] Bilirubin Ql (U) Negative Normal Comprehe nsive Internal Medicine; Comprehensive Internal Medicine Work Phone: Color (U) Yellow Normal [facility]; [facility] Work Phone: Comment on above: Test(s) 694385-BTX-M ; 821786-MRI-S; 371633-Dshgmfzwraplw; 325474-Futwqgixjmz, Total; 678079-BQP-J (Total); 221337-Ofjpw LDL-P; 992274-TKO Size; 912722-XW-BT Scorewas developed and its performance characteristics determinedby [employer]. It has not been cleared or approved by the Foodand Drug Administration.PATIENT WAS FASTINGPERFORMED BY: Nudge [address] [id number] BY: [employer]70 [facility] SystemTuneAtrium Health [facility]burg [id number] Glucose Ql (U) Negative Normal Comprehens ashley [facility]; [facility] Work Phone: Comment on above: Test(s) 482896-SKU-Z ; 461415-PUN-N; 720382-Hbvykupgkqoju; 850203-Rgdyfwyxyso, Total; 841905-JJX-S (Total); 476411-Rfvgl LDL-P; 324174-VXZ Size; 681485-PC-LR Scorewas developed and its performance characteristics determinedby [employer]. It has not been cleared or approved by the Foodand Drug Administration.PATIENT WAS FASTINGPERFORMED BY: Twenga[address] [id number] BY: Direct Media TechnologiesThe Memorial Hospital of Salem CountyDjmfdd1480 [facility] [id number] Glucose Ql (U) Negative Normal Comprehens [facility]; [facility] Work Phone: Hemoglobin Ql (U) Trace Abnormal Compreh ensive Internal Medicine; [facility] Work Phone: Comment on above: Test(s) 751000-HHH-V ; 945532-PRI-A; 404804-Jeznarmozxoyw; 586844-Jlboyobesuq, Total; 298390-TTW-M (Total); 393997-Gexci LDL-P; 713233-HHS Size; 559665-VI-UG Scorewas developed and its performance characteristics determinedby [employer]. It has not been cleared or approved by the Foodand Drug Administration.PATIENT WAS FASTINGPERFORMED BY: [employer] [address] [id number] BY: Arch Grantslin6370 [facility] [id number] Ketones Ql (U) Negative Normal Comprehens [facility]; [facility] Work Phone: Comment on above: Test(s) 065136-SDP-P ; 853877-DZV-D; 866529-Vcqiyswwfcswn; 584189-Klpbtbdoidr, Total; 165983-NCO-R (Total); 787047-Zaqnv LDL-P; 712054-XJP Size; 347315-EN-JS Scorewas developed and its performance characteristics determinedby [employer]. It has not been cleared or approved by the Foodand Drug Administration.PATIENT WAS FASTINGPERFORMED BY: Nudge [address] [id number] BY: ObserveIT6370 [facility] [id number] Ketones Ql (U) Negative Normal Comprehens [facility]; [facility] Work Phone: Leukocyte esterase Test strip Ql (U) 3+ Abnormal [facility]; [facility] Work Phone: Comment on above: Test(s) 199975-HNB-I ; 943254-JEW-G; 412515-Xcrqaotpcuzaj; 394300-Zsduegckifm, Total; 574451-NFN-H (Total); 807705-Exoxa LDL-P; 882464-QUN Size; 736862-MY-WV Scorewas developed and its performance characteristics determinedby [employer]. It has not been cleared or approved by the Foodand Drug Administration.PATIENT WAS FASTINGPERFORMED BY: [employer] [address] [id number] BY: ObserveIT6370 [facility] [id number] Microscopic observation LM Nom (Urine sed) See below: Normal [facility]; [facility] Work Phone: Comment on above: Microscopic was calli cated and was performed. Test(s) 705417-NDY-R ; 839472-LUU-M; 602426-Notzbmivfqued; 280640-Ujnnxajdech, Total; 954375-LGB-U (Total); 379922-Novyf LDL-P; 163873-PEH Size; 220491-WE-SI Scorewas developed and its performance characteristics determinedby [employer]. It has not been cleared or approved by the Foodand Drug Administration.PATIENT WAS FASTINGPERFORMED BY: Sunglass[address] [id number] BY: ObserveIT6370 [facility] [id number] Nitrite Ql (U) Negative Normal Comprehens [facility]; [facility] Work Phone: Comment on above: Test(s) 554861-ZMO-Y ; 609396-RBQ-O; 288959-Hfyxjdspkegus; 444794-Psiudmbixed, Total; 692769-DWF-W (Total); 455970-Katyd LDL-P; 175066-FDN Size; 341115-FT-VG Scorewas developed and its performance characteristics determinedby [employer]. It has not been cleared or approved by the Foodand Drug Administration.PATIENT WAS FASTINGPERFORMED BY: Nudge [address] [id number] BY: [employer] Kkbgrz8100 [facility] [id number] Nitrite Ql (U) Negative Normal Comprehens [facility]; [facility] Work Phone: pH (U) 6.0 [pH] Normal 5.0-7.5 [facility]; [facility] Work Phone: Comment on above: Test(s) 868018-JIL-C ; 933548-PWT-R; 618109-Kmtbvgnirkjop; 202911-Bmxhaqwcowr, Total; 486915-YHF-C (Total); 505125-Gvzzx LDL-P; 343657-XVY Size; 723905-WL-CS Scorewas developed and its performance characteristics determinedby [employer]. It has not been cleared or approved by the Foodand Drug Administration.PATIENT WAS FASTINGPERFORMED BY: Nudge [address] [id number] BY: HandmarkAtrium Health [facility]burg [id number] Protein Ql (U) Trace Normal Comprehens [facility]; [facility] Work Phone: Comment on above: Test(s) 485598-XFU-V ; 741536-ZDS-K; 813231-Seprajxchqmya; 255635-Iozzlbgdxat, Total; 826608-VXH-S (Total); 323030-Schfc LDL-P; 280763-DYY Size; 541108-PC-HT Scorewas developed and its performance characteristics determinedby [employer]. It has not been cleared or approved by the Foodand Drug Administration.PATIENT WAS FASTINGPERFORMED BY: Nudge [address] [id number] BY: HandmarkAtrium Health [facility] [id number] Specific gravity (U) [Rel density] 1.016 1 Normal 1.005-1.03 0 [facility]; [facility] Work Phone: Comment on above: Test(s) 055482-SUV-Z ; 070455-TXF-Y; 491500-Hlkqqoplvrlge; 538474-Thvnggwwajp, Total; 473851-TIG-X (Total); 852790-Ipurp LDL-P; 260749-PSJ Size; 856790-IK-ZI Scorewas developed and its performance characteristics determinedby [employer]. It has not been cleared or approved by the Foodand Drug Administration.PATIENT WAS FASTINGPERFORMED BY: Nudge [address] [id number] BY: [employer]70 LoraxAgAtrium Health Harrisburg [id number] Urobilinogen (U) [Mass/Vol] 0.2 mg/dL Normal 0.2-1.0 [facility] Internal Medicine; [facility] Work Phone: Urobilinogen Test strip (U) [Mass/Vol] 0.2 mg/dL Normal 0.2-1.0 Comprehensi Internal Medicine; [facility] Work Phone: Comment on above: Test(s) 363400-EWZ-T ; 082982-EHJ-I; 397402-Pscjjyurjjjrz; 409670-Nxcdtirxexw, Total; 747096-KYZ-C (Total); 867120-Wqlzc LDL-P; 739289-GBI Size; 529369-UX-GD Scorewas developed and its performance characteristics determinedby [employer]. It has not been cleared or approved by the Foodand Drug Administration.PATIENT WAS FASTINGPERFORMED BY: BN [facility] [address] [id number] BY: CB [facility] Vfmvoo3977 [facility] [id number] Blood Glucose , Office ([phone])Ordered By: Sonal Gómez on 04-14-2020 Glucose Glucometer (BldC) [Moles/Vol] 119 1 Normal [facility] Work Phone: HgA1C , Office (54672)Ordere d By: Sonal Gómez on 04-14-2020 HbA1c (Bld) [Mass fraction] 5.7 % Normal 4.6 - 7.1 [facility] Work Phone: CALCIFIDIOL (48708) VIT D 25 Ordered By: Gas Fitter on 03-31-2020 25-Hydroxyvitamin D2+25-Hydroxyvitamin D3 [Mass/Vol] 68.5 ng/mL Normal 30.0-100.0 [facility] Work Phone: Comment on above: Vitamin D deficiency has been defined by the [place] ofMedicine and an Endocrine Society practice guideline as alevel of serum 25-OH vitamin D less than 20 ng/mL (1,2).The Endocrine Society went on to further define vitamin Dinsufficiency as a level between 21 and 29 ng/mL (2).1. IOM ([place] of Medicine). 2010. Dietary reference intakes for calcium and D. [place]: The National Academies Press.2. Néstor MF, Jorge NC, Justus ZHOU, et al. Evaluation, treatment, and prevention of vitamin D deficiency: an Endocrine Society clinical practice guideline. JCEM. 2010; 96(7):1911-30. PATIENT WAS FASTINGP ERFORMED BY: [facility] Ygkigk3398 [address] RoadDublin [place] [id number] CBC W/AUTO DIFF WBC (68887)O rdered By: Gas Fitter on 03-31-2020 Basophils (Bld) [#/Vol] 0.1 {x10E3/uL} Normal 0.0-0.2 [facility] Work Phone: Comment on above: PATIENT WAS FASTINGP ERFORMED BY: [facility] Onflso0720 [address] RoadDublin [place] [id number] Basophils (Bld) [#/Vol] 0.1 10*3/uL Normal 0.0-0.2 [facility]; [facility] Work Phone: Basophils/100 WBC (Bld) 1 % Normal [facility] Work Phone: Comment on above: PATIENT WAS FASTINGP ERFORMED BY: [facility] Vgvxte9113 [address] RoadDublin [place] [id number] Eosinophils (Bld) [#/Vol] 0.4 {x10E3/uL} Normal 0.0-0.4 [facility] Work Phone: Comment on above: PATIENT WAS FASTINGP ERFORMED BY: [facility] Hjrdfn3000 [address]Dublin [place] [id number] Eosinophils (Bld) [#/Vol] 0.4 10*3/uL Normal 0.0-0.4 [facility]; [facility] Work Phone: Eosinophils/100 WBC (Bld) 4 % Normal [facility] Work Phone: Comment on above: PATIENT WAS FASTINGP ERFORMED BY: [facility] Hvgmos0926 [address] RoadDublin [place] [id number] Erythrocyte distribution width (RBC) [Ratio] 12.6 % Normal 11.7-15.4 [facility] Work Phone: Comment on above: PATIENT WAS FASTINGP ERFORMED BY: [facility]6370 [facility] [id number] Hematocrit (Bld) [Volume fraction] 41.9 % Normal 34.0-46.6 [facility] Work Phone: Comment on above: PATIENT WAS FASTINGP ERFORMED BY: [place] [id number] [facility] [id number] Hemoglobin (Bld) [Mass/Vol] 14.2 g/dL Normal 11.1-15.9 [facility] Work Phone: Comment on above: PATIENT WAS FASTINGP ERFORMED BY: [place] 7062870 [facility] [id number] Immature granulocytes (Bld) [#/Vol] 0.0 {x10E3/uL} Normal 0.0-0.1 [facility] Work Phone: Comment on above: PATIENT WAS FASTINGP ERFORMED BY: [place] [id number] [facility] [id number] Immature granulocytes (Bld) [#/Vol] 0.0 10*3/uL Normal 0.0-0.1 [facility]; [facility] Work Phone: Immature granulocytes/100 WBC (Bld) 0 % Normal [facility] Work Phone: Comment on above: PATIENT WAS FASTINGP ERFORMED BY: [place] [id number] [facility] [id number] Lymphocytes (Bld) [#/Vol] 3.5 {x10E3/uL} Abnormal 0.7-3.1 [facility] Work Phone: Comment on above: PATIENT WAS FASTINGP ERFORMED BY: [facility]6370 [facility] [id number] Lymphocytes (Bld) [#/Vol] 3.5 10*3/uL Abnormal 0.7-3.1 [facility]; [facility] Work Phone: Lymphocytes/100 WBC (Bld) 39 % Normal [facility] Work Phone: Comment on above: PATIENT WAS FASTINGP ERFORMED BY: DEMETRIUS [facility] Cdyfgw[address] [facility]bl[facility] [place] [id number] MCH (RBC) [Entitic mass] 30.2 pg Normal 26.6-33.0 [facility] Internal Medicine Work Phone: Comment on above: PATIENT WAS FASTINGP ERFORMED BY: CB [facility] Rhccbc[address] [facility]in [place] [id number] MCHC (RBC) [Mass/Vol] 33.9 g/dL Normal 31.5-35.7 [facility] Internal Medicine Work Phone: Comment on above: PATIENT WAS FASTINGP ERFORMED BY: DEMETRIUS [facility] Kplepq5500 [facility] [place] [id number] MCV (RBC) [Entitic vol] 89 fL Normal 79-97 [facility] Work Phone: Comment on above: PATIENT WAS FASTINGP ERFORMED BY: [facility] Rqzpuq47[address] [facility]in [place] [id number] Monocytes (Bld) [#/Vol] 0.5 {x10E3/uL} Normal 0.1-0.9 [facility] Work Phone: Comment on above: PATIENT WAS FASTINGP ERFORMED BY: [facility] Grqswi[address] [facility] [place] [id number] Monocytes (Bld) [#/Vol] 0.5 10*3/uL Normal 0.1-0.9 [facility]; [facility] Work Phone: Monocytes/100 WBC (Bld) 5 % Normal [facility] Work Phone: Comment on above: PATIENT WAS FASTINGP ERFORMED BY: [facility] Upmbes0654 [address] RoadDublin [place] [id number] Neutrophils (Bld) [#/Vol] 4.5 {x10E3/uL} Normal 1.4-7.0 [facility] Work Phone: Comment on above: PATIENT WAS FASTINGP ERFORMED BY: CB [facility] Mefhho5546 [address] RoadDublin [place] [id number] Neutrophils (Bld) [#/Vol] 4.5 10*3/uL Normal 1.4-7.0 [facility]; [facility] Work Phone: Neutrophils/100 WBC (Bld) 51 % Normal [facility] Work Phone: Comment on above: PATIENT WAS FASTINGP ERFORMED BY: CB [facility] Dxgfph9895 [address] RoadDublin [place] [id number] Platelets (Bld) [#/Vol] 304 {x10E3/uL} Normal 150-450 [facility] Work Phone: Comment on above: PATIENT WAS FASTINGP ERFORMED BY: DEMETRIUS [facility] Pocghx2822 [address] RoadDublin [place] [id number] Platelets (Bld) [#/Vol] 304 10*3/uL Normal 150-450 [facility]; [facility] Work Phone: RBC (Bld) [#/Vol] 4.70 {x10E6/uL} Normal 3.77-5.28 [facility] Internal Medicine Work Phone: Comment on above: PATIENT WAS FASTINGP ERFORMED BY: DEMETRIUS [facility] Vuuwcr4242 [address] RoadDublin [place] [id number] RBC (Bld) [#/Vol] 4.70 10*6/uL Normal 3.77-5.28 [facility] Internal Medicine; [facility] Work Phone: WBC (Bld) [#/Vol] 9.0 {x10E3/uL} Normal 3.4-10.8 [facility] Internal Medicine Work Phone: Comment on above: PATIENT WAS FASTINGP ERFORMED BY: CB [facility] Mtqrft0648 [address] RoadDublin [place] [id number] WBC (Bld) [#/Vol] 9.0 10*3/uL Normal 3.4-10.8 [facility] Internal Medicine; [facility] Work Phone: LIPID PANEL ([id number])Ordered B y: Gas Fitter on 03-31-2020 Cholesterol [Mass/Vol] 173 mg/dL Normal 100-199 [facility] Work Phone: Comment on above: PATIENT WAS FASTINGP ERFORMED BY: DEMETRIUS [facility] Zytkpn2196 [address] RoadDublin [place] [id number] Cholesterol in HDL [Mass/Vol] 38 mg/dL Abnormal [facility] Work Phone: Comment on above: PATIENT WAS FASTINGP ERFORMED BY: DEMETRIUS [facility] Reuhll1410 [address] RoadDublin [place] [id number] Cholesterol in LDL/Cholesterol in HDL [Mass ratio] 2.5 {ratio} Normal 0.0-3.2 [facility] Work Phone: Comment on above: LDL/HDL Ratio Men Wo men 1/2 Avg.Risk 1.0 1.5 Avg.Risk 3.6 3.2 2X Avg.Risk 6.2 5.0 3X Avg.Risk 8.0 6.1 PATIENT WAS FASTINGP ERFORMED BY: DEMETRIUS [facility] Qhhkjk0954 [address] RoadDublin [place] [id number] Triglyceride [Mass/Vol] 236 mg/dL Abnormal 0-149 [facility] Work Phone: Comment on above: PATIENT WAS FASTINGP ERFORMED BY: DEMETRIUS [facility] Wmvnbn0318 [address] RoadDublin [place] [id number] LIPID PANEL (50696) 95 mg/dL Normal 0-99 Compr ensive Internal Medicine Work Phone: Comment on above: PATIENT WAS FASTINGP ERFORMED BY: DEMETRIUS [facility] Gyhqhs0517 [address] RoadDublin [place] [id number] LIPID PANEL (46149) 40 mg/dL Normal 5-40 Compr ehensive Internal Medicine Work Phone: Comment on above: PATIENT WAS FASTINGP ERFORMED BY: DEMETRIUS [facility] Ckyciq7284 [address] RoadDublin [place] [id number] LIPID PANEL (00362) 2.5 {ratio} Normal 0.0-3.2 Comp rehensive Internal Medicine; [facility] Work Phone: METABOLIC PANEL, COMPREHENSI FARRAH (75097)Ordered By: Gas Fitter on 03-31-2020 Albumin [Mass/Vol] 4.2 g/dL Normal 3.7-4.7 [facility] Internal Medicine Work Phone: Comment on above: PATIENT WAS FASTINGP ERFORMED BY: CB [facility] Tdohfu8097 [address] RoadDublin [place] [id number] Albumin/Globulin [Mass ratio] 1.6 {ratio} Normal 1.2-2.2 [facility] Work Phone: Comment on above: PATIENT WAS FASTINGP ERFORMED BY: CB [facility] Gwvric7234 [address] RoadDublin [place] [id number] ALP [Catalytic activity/Vol] 83 [iU]/L Normal 39-117 [facility] Work Phone: Comment on above: PATIENT WAS FASTINGP ERFORMED BY: CB [facility] Yiiers4637 [address] RoadDublin [place] [id number] ALP [Catalytic activity/Vol] 83 U/L Normal 39-117 [facility]; [facility] Work Phone: ALT [Catalytic activity/Vol] 33 [iU]/L Abnormal 0-32 [facility] Work Phone: Comment on above: PATIENT WAS FASTINGP ERFORMED BY: CB [facility] Rzkpou7045 [address] RoadDublin [place] [id number] ALT [Catalytic activity/Vol] 33 U/L Abnormal 0-32 [facility]; [facility] Work Phone: AST [Catalytic activity/Vol] 26 [iU]/L Normal 0-40 [facility] Work Phone: Comment on above: PATIENT WAS FASTINGP ERFORMED BY: CB [facility] Qzehze8863 [address] RoadDublin [place] [id number] AST [Catalytic activity/Vol] 26 U/L Normal 0-40 [facility]; [facility] Work Phone: Bilirubin [Mass/Vol] 0.4 mg/dL Normal 0.0-1.2 Comp [facility]ensive Internal Medicine Work Phone: Comment on above: PATIENT WAS FASTINGP ERFORMED BY: CB [facility] Kzcelg7804 [address] RoadDublin [place] [id number] Calcium [Mass/Vol] 9.5 mg/dL Normal 8.7-10.3 [facility] Internal Medicine Work Phone: Comment on above: PATIENT WAS FASTINGP ERFORMED BY: CB [facility] Cucxsi6765 [address] RoadDublin [place] [id number] Chloride [Moles/Vol] 105 mmol/L Normal 96-106 Comp rehensive Internal Medicine Work Phone: Comment on above: PATIENT WAS FASTINGP ERFORMED BY: CB [facility] Loiqak8[address] RoadDublin [place] [id number] CO2 [Moles/Vol] 24 mmol/L Normal 20-29 [facility] Internal Medicine Work Phone: Comment on above: PATIENT WAS FASTINGP ERFORMED BY: CB [facility] Nyekpv9510 [address] RoadDublin [place] [id number] Creatinine [Mass/Vol] 0.75 mg/dL Normal 0.57-1.00 [facility] Internal Medicine Work Phone: Comment on above: PATIENT WAS FASTINGP ERFORMED BY: CB [facility] Urxksu4013 [address] RoadDublin [place] [id number] GFR/1.73 sq M predicted among blacks CKD-EPI (S/P/Bld) [Vol rate/Area] 91 mL/min/1.73 Normal [facility] Work Phone: Comment on above: PATIENT WAS FASTINGP ERFORMED BY: CB [facility] Weaepp9036 [address] RoadDublin [place] [id number] GFR/1.73 sq M predicted among non-blacks CKD-EPI (S/P/Bld) [Vol rate/Area] 79 mL/min/1.73 Normal [facility] Work Phone: Comment on above: PATIENT WAS FASTINGP ERFORMED BY: CB [facility] Gdtdlw2775 [address] RoadDublin [place] [id number] Globulin (S) [Mass/Vol] 2.6 g/dL Normal 1.5-4.5 [facility] Internal Medicine Work Phone: Comment on above: PATIENT WAS FASTINGP ERFORMED BY: DEMETRIUS [facility] Mzjlna9822 [address] RoadDublin [place] [id number] Glucose [Mass/Vol] 100 mg/dL Abnormal 65-99 [facility] Internal Medicine Work Phone: Comment on above: PATIENT WAS FASTINGP ERFORMED BY: CB [facility] Bkhiwg3049 [address] RoadDublin [place] [id number] Potassium [Moles/Vol] 4.6 mmol/L Normal 3.5-5.2 [facility] Internal Medicine Work Phone: Comment on above: PATIENT WAS FASTINGP ERFORMED BY: DEMETRIUS [facility] Qvmxli8833 [address] RoadDublin [place] [id number] Protein [Mass/Vol] 6.8 g/dL Normal 6.0-8.5 [facility] Internal Medicine Work Phone: Comment on above: PATIENT WAS FASTINGP ERFORMED BY: DEMETRIUS [facility] Wvalsa6097 [address] RoadDublin [place] [id number] Sodium [Moles/Vol] 143 mmol/L Normal 134-144 [facility] Internal Medicine Work Phone: Comment on above: PATIENT WAS FASTINGP ERFORMED BY: DEMETRIUS [facility] Ahfrpf9297 [address] RoadDublin [place] [id number] Urea nitrogen [Mass/Vol] 15 mg/dL Normal 8-27 [facility] Internal Medicine Work Phone: Comment on above: PATIENT WAS FASTINGP ERFORMED BY: DEMETRIUS [facility] Haftny9351 [address] RoadDublin [place] [id number] Urea nitrogen/Creatinine [Mass ratio] 20 mg/mg Normal 12-28 [facility] Internal Medicine Work Phone: Comment on above: PATIENT WAS FASTINGP ERFORMED BY: DEMETRIUS [facility] Tcyxcq0034 [address] RoadDublin [place] [id number] MICROALBUMINOrdered By: Syst em Chip Separator on 03-31-2020 Albumin DL <= 20 mg/L (U) [Mass/Vol] 40.2 ug/mL Normal [facility] Work Phone: Comment on above: PATIENT WAS FASTINGP ERFORMED BY: DEMETRIUS [facility] Nauoma8334 [address] RoadDublin [place] [id number] Albumin/Creatinine (U) [Mass ratio] 46 {mg/g_creat} Abnormal 0-29 [facility] Work Phone: Comment on above: Normal: 0 - 29 Moder ately increased: 30 - 300 Severely increased: >300 Please note reference interval change PATIENT WAS FASTINGP ERFORMED BY: DEMETRIUS [facility] Yrokof5539 [address] RoadDublin [place] [id number] Creatinine (U) [Mass/Vol] 87.4 mg/dL Normal [facility] Work Phone: Comment on above: PATIENT WAS FASTINGP ERFORMED BY: DEMETRIUS [facility] Nuaxmn5370 [address] RoadDublin [place] [id number] TSH (58202)Ordered By: Amoreliee m Chip Separator on 03-31-2020 TSH Qn 1.730 {uIU/mL} Normal 0.450-4.50 0 [facility] Work Phone: Comment on above: PATIENT WAS FASTINGP ERFORMED BY: DEMETRIUS [facility] Ftpvru4243 [address] RoadDublin [place] [id number] URINALYSIS, W/ MICRO (53176) Ordered By: Gas Fitter on 03-31-2020 Appearance (U) Clear Normal Comprehens ashley Internal Medicine Work Phone: Comment on above: PATIENT WAS FASTINGP ERFORMED BY: DEMETRIUS [facility] Qjniwg4181 [address] RoadDublin [place] [id number] Bilirubin Ql (U) Negative Normal Comprehe nsive Internal Medicine Work Phone: Comment on above: PATIENT WAS FASTINGP ERFORMED BY: DEMETRIUS [facility] Ysbetz1188 [address] RoadDublin [place] [id number] Bilirubin Ql (U) Negative Normal Comprehe nsive Internal Medicine; [facility] Work Phone: Color (U) Yellow Normal [facility] Work Phone: Comment on above: PATIENT WAS FASTINGP ERFORMED BY: DEMETRIUS [facility] Zjxnth3846 [address] RoadDublin [place] [id number] Glucose Ql (U) Negative Normal Comprehens ashley Internal Medicine Work Phone: Comment on above: PATIENT WAS FASTINGP ERFORMED BY: DEMETRIUS [facility] Mhqpql0311 [address] RoadDublin [place] [id number] Glucose Ql (U) Negative Normal Comprehens [facility]; [facility] Work Phone: Hemoglobin Ql (U) Negative Normal Compreh ensive Internal Medicine Work Phone: Comment on above: PATIENT WAS FASTINGP ERFORMED BY: DEMETRIUS [facility] Fcrmtp5686 [address] RoadDublin [place] [id number] Hemoglobin Ql (U) Negative Normal Compreh ensive Internal Medicine; [facility] Work Phone: Ketones Ql (U) Negative Normal Comprehens ashley Internal Medicine Work Phone: Comment on above: PATIENT WAS FASTINGP ERFORMED BY: DEMETRIUS [facility] Qcawkh8305 [address]Dublin [place] [id number] Ketones Ql (U) Negative Normal Comprehens ashley Internal Medicine; [facility] Work Phone: Leukocyte esterase Test strip Ql (U) 3+ Abnormal [facility] Work Phone: Comment on above: PATIENT WAS FASTINGP ERFORMED BY: DEMETRIUS [facility] Vqylne7828 [address] RoadDublin [place] [id number] Microscopic observation LM Nom (Urine sed) See below: Normal [facility] Work Phone: Comment on above: Microscopic was calli cated and was performed. PATIENT WAS FASTINGP ERFORMED BY: DEMETRIUS [facility] Owldwb2919 Vargas RoadDublin [place] [id number] Nitrite Ql (U) Negative Normal Comprehens [facility] Work Phone: Comment on above: PATIENT WAS FASTINGP ERFORMED BY: DEMETRIUS [facility] Vewygc9[address]argas RoadDublin [place] [id number] Nitrite Ql (U) Negative Normal [facility]; [facility] Work Phone: pH (U) 5.5 [pH] Normal 5.0-7.5 [facility] Work Phone: Comment on above: PATIENT WAS FASTINGP ERFORMED BY: DEMETRIUS Omnireliant Vhibsb[address] CultureIQNovant Health [facility] [id number] Protein Ql (U) Trace Normal [facility] Work Phone: Comment on above: PATIENT WAS FASTINGP ERFORMED BY: OmnireliantThe [facility] Hospital of Salem CountyOdyzav8224 [facility] [id number] Specific gravity (U) [Rel density] 1.015 1 Normal 1.005-1.03 0 [facility] Work Phone: Comment on above: PATIENT WAS FASTINGP ERFORMED BY: Omnireliant Kqodmj8838 [facility] [id number] Urobilinogen (U) [Mass/Vol] 0.2 mg/dL Normal 0.2-1.0 [facility]; [facility] Work Phone: Urobilinogen Test strip (U) [Mass/Vol] 0.2 mg/dL Normal 0.2-1.0 [facility] Work Phone: Comment on above: PATIENT WAS FASTINGP ERFORMED BY: Omnireliant Befkmv8791 [facility] [id number] Blood Glucose , Office ([phone])Ordered By: Santos Child on 07-19-2019 Glucose Glucometer (BldC) [Moles/Vol] 97 1 Normal [facility] Work Phone: HgA1C , Office ([phone])Ordere d By: Santos Child on 07-19-2019 HbA1c (Bld) [Mass fraction] 5.5 % Normal 4.6 - 7.1 [facility] Internal Medicine Work Phone: CALCIFEDIOL ([phone])Ordered B y: Gas Fitter on 07-14-2019 25-Hydroxyvitamin D2+25-Hydroxyvitamin D3 [Mass/Vol] 80.7 ng/mL Normal 30.0-100.0 [facility] Work Phone: Comment on above: Vitamin D deficiency has been defined by the [employer] ofMedicine and an Endocrine Society practice guideline as alevel of serum 25-OH vitamin D less than 20 ng/mL (1,2).The Endocrine Society went on to further define vitamin Dinsufficiency as a level between 21 and 29 ng/mL (2).1. IOM ([place] of Medicine). 2010. Dietary reference intakes for calcium and D. [place]: The National Academies Press.2. Néstor MF, Jorge IVY, Justus ZHOU, et al. Evaluation, treatment, and prevention of vitamin D deficiency: an Endocrine Society clinical practice guideline. JCEM. 2010; 96(7):1911-30. Test(s) 110242-PRG-J ; 557674-LCM-W; 743961-DFN-P; 156484-Ogdpwoeyiweph; 045715-Erozmglynqz, Total; 175476-BEA-W (Total);364776-Hzknw LDL-P; 250319-ALQ Size; 218653-RB-RY Scorewas developed and its performance characteristics determinedby [employer]. It has not been cleared or approved by the Foodand Drug Administration.PATIENT WAS FASTINGPERFORMED BY: Nudge [address] [id number] BY: [employer] Vxpyrk0707 [facility] [id number] CBC WITH MANUAL DIFF (29843) Ordered By: Gas Fitter on 07-14-2019 Basophils (Bld) [#/Vol] 0.1 {x10E3/uL} Normal 0.0-0.2 [facility] Work Phone: Comment on above: Test(s) 478784-HJV-U ; 956416-QPC-G; 980489-DRK-R; 667600-Tbhdrmbmvyget; 453017-Diyayzdcoxt, Total; 517663-LRW-F (Total);126562-Zoopl LDL-P; 948765-PRZ Size; 848491-EO-TM Scorewas developed and its performance characteristics determinedby [employer]. It has not been cleared or approved by the Foodand Drug Administration.PATIENT WAS FASTINGPERFORMED BY: BN LabCo[address] [id number] BY: OmnireliantThe Memorial Hospital of Salem CountyNbjifz8105 [facility] [id number] Basophils (Bld) [#/Vol] 0.1 10*3/uL Normal 0.0-0.2 [facility]; [facility] Work Phone: Basophils/100 WBC (Bld) 1 % Normal [facility] Work Phone: Comment on above: Test(s) 931217-AAO-T ; 416873-EBO-J; 045106-BZU-A; 129922-Ybdompowyxfui; 428686-Xzotczwroev, Total; 499281-HYP-H (Total);531447-Rbddj LDL-P; 614166-UBD Size; 434496-EN-IV Scorewas developed and its performance characteristics determinedby [employer]. It has not been cleared or approved by the Foodand Drug Administration.PATIENT WAS FASTINGPERFORMED BY: Twenga[address] [id number] BY: Omnireliant Wqgjlj1027 [facility] [id number] Eosinophils (Bld) [#/Vol] 0.3 {x10E3/uL} Normal 0.0-0.4 [facility] Internal Medicine Work Phone: Comment on above: Test(s) 432559-UEF-A ; 769334-KCO-A; 822471-DSC-R; 476045-Bbmfyvafywbgr; 049633-Fcmcrkaivdr, Total; 517223-VTW-A (Total);068287-Fwvvh LDL-P; 297201-VHD Size; 334369-WP-YH Scorewas developed and its performance characteristics determinedby [employer]. It has not been cleared or approved by the Foodand Drug Administration.PATIENT WAS FASTINGPERFORMED BY: Omnireliant[address] [id number] BY: OmnireliantThe Memorial Hospital of Salem CountyWzebei2102 [facility] [id number] Eosinophils (Bld) [#/Vol] 0.3 10*3/uL Normal 0.0-0.4 [facility]; [facility] Work Phone: Eosinophils/100 WBC (Bld) 4 % Normal [facility] Work Phone: Comment on above: Test(s) 021125-GPZ-K ; 311875-QGY-Q; 235761-SEI-G; 481077-Kzogyicxrtvad; 928206-Gluoezqjfej, Total; 675120-DAW-S (Total);137774-Eztzw LDL-P; 273103-SGV Size; 556544-OR-QI Scorewas developed and its performance characteristics determinedby [employer]. It has not been cleared or approved by the Foodand Drug Administration.PATIENT WAS FASTINGPERFORMED BY: Sunglass[address] [id number] BY: [facility] [facility]70 LoraxAgAtrium Health Harrisburg [id number] Erythrocyte distribution width (RBC) [Ratio] 12.3 % Normal 11.7-15.4 [facility] Internal Medicine Work Phone: Comment on above: Test(s) 719326-YXN-L ; 018147-LIY-A; 212419-CIL-F; 369793-Tlqdraeteeuwg; 261406-Txgbciyfdby, Total; 589006-UPN-X (Total);520927-Iayyd LDL-P; 650157-EIX Size; 538111-XI-ZP Scorewas developed and its performance characteristics determinedby [employer]. It has not been cleared or approved by the Foodand Drug Administration.PATIENT WAS FASTINGPERFORMED BY: Sunglass[address] [id number] BY: ObserveIT[address] CultureIQNovant Health [facility] Center [id number] Hematocrit (Bld) [Volume fraction] 43.1 % Normal 34.0-46.6 [facility] Internal Medicine Work Phone: Comment on above: Test(s) 363254-GSF-N ; 719840-FBM-W; 770066-OPJ-Q; 261828-Vbqwyzlexxcfn; 194797-Yirnoxykqzp, Total; 707116-GPE-D (Total);741854-Xfuwa LDL-P; 079737-JKU Size; 658589-NC-CO Scorewas developed and its performance characteristics determinedby [employer]. It has not been cleared or approved by the Foodand Drug Administration.PATIENT WAS FASTINGPERFORMED BY: Twenga[address] [id number] BY: Omnireliant Krrzno4056 [facility] [id number] Hemoglobin (Bld) [Mass/Vol] 14.0 g/dL Normal 11.1-15.9 [facility] Work Phone: Comment on above: Test(s) 235235-ACH-B ; 358998-IUW-I; 461432-BJH-C; 476327-Znrmnkfvjwshd; 794366-Smgldnyxeda, Total; 175209-ATE-H (Total);127753-Ynvzw LDL-P; 630679-OML Size; 930885-KV-WA Scorewas developed and its performance characteristics determinedby [employer]. It has not been cleared or approved by the [employer] Drug Administration.PATIENT WAS FASTINGPERFORMED BY: Nudge [address] [id number] BY: [employer] CultureIQNovant Health [facility] Center [id number] Immature granulocytes (Bld) [#/Vol] 0.0 {x10E3/uL} Normal 0.0-0.1 [facility] Work Phone: Comment on above: Test(s) 379427-VAK-I ; 202410-GPZ-J; 526395-BMW-E; 071552-Jmqxpiwqpdykh; 750592-Eqgyyjpdqji, Total; 621909-RKP-G (Total);029883-Hqlpt LDL-P; 947172-JIM Size; 432969-NT-WJ Scorewas developed and its performance characteristics determinedby [employer]. It has not been cleared or approved by the Foodand Drug Administration.PATIENT WAS FASTINGPERFORMED BY: Nudge [address] [id number] BY: [employer] Vptyym0084 [facility] [id number] Immature granulocytes (Bld) [#/Vol] 0.0 10*3/uL Normal 0.0-0.1 [facility]; [facility] Work Phone: Immature granulocytes/100 WBC (Bld) 0 % Normal [facility] Work Phone: Comment on above: Test(s) 929891-CUG-L ; 063139-KGP-L; 305986-UBR-D; 634006-Wgqrrvxkgzanb; 510902-Bajesmsoduf, Total; 536552-XUL-B (Total);911536-Jtwiy LDL-P; 379522-NIA Size; 109770-KP-CK Scorewas developed and its performance characteristics determinedby [employer]. It has not been cleared or approved by the Foodand Drug Administration.PATIENT WAS FASTINGPERFORMED BY: Sunglass[address] [id number] BY: ObserveIT6370 [facility] [id number] Lymphocytes (Bld) [#/Vol] 3.7 {x10E3/uL} Abnormal 0.7-3.1 [facility] Work Phone: Comment on above: Test(s) 119856-HYO-W ; 606320-YJP-S; 461930-YJC-X; 029755-Bhlasdljaevps; 036719-Ktpzpeuoese, Total; 003389-EVS-R (Total);352411-Ygrjp LDL-P; 889870-CFT Size; 893158-AJ-AY Scorewas developed and its performance characteristics determinedby [employer]. It has not been cleared or approved by the Foodand Drug Administration.PATIENT WAS FASTINGPERFORMED BY: Nudge [address] [id number] BY: mySkin Ktpdtv5108 [facility] [id number] Lymphocytes (Bld) [#/Vol] 3.7 10*3/uL Abnormal 0.7-3.1 [facility]; [facility] Work Phone: Lymphocytes/100 WBC (Bld) 45 % Normal [facility] Internal Medicine Work Phone: Comment on above: Test(s) 585652-MNB-S ; 062139-SDN-V; 694649-RPO-D; 911489-Njnvzvhkiddsi; 992160-Lqmeprhiqof, Total; 609266-LJU-R (Total);636621-Lumkx LDL-P; 368447-VNG Size; 338141-WU-HM Scorewas developed and its performance characteristics determinedby [employer]. It has not been cleared or approved by the Foodand Drug Administration.PATIENT WAS FASTINGPERFORMED BY: Sunglass[address] [id number] BY: [employer]70 LoraxAgAtrium Health [facility]burg [id number] MCH (RBC) [Entitic mass] 29.7 pg Normal 26.6-33.0 [facility] Internal Medicine Work Phone: Comment on above: Test(s) 927294-QYJ-A ; 512346-COE-E; 072969-TOK-E; 595049-Kejnoehnazhxv; 815055-Hxbqwbxgmss, Total; 381495-DHV-H (Total);446705-Mrdfq LDL-P; 652974-HTZ Size; 274785-XE-PX Scorewas developed and its performance characteristics determinedby [employer]. It has not been cleared or approved by the Foodand Drug Administration.PATIENT WAS FASTINGPERFORMED BY: Sunglass[address] [id number] BY: [employer]70 V[facility]asBo[facility] Hospital Center [id number] MCHC (RBC) [Mass/Vol] 32.5 g/dL Normal 31.5-35.7 [facility] Internal Medicine Work Phone: Comment on above: Test(s) 230897-SOQ-V ; 557770-VIE-J; 822589-UKN-A; 961613-Nbhtzoqdytluu; 988662-Jveswlgtlbo, Total; 313502-VXU-V (Total);247979-Fjdib LDL-P; 632330-QDU Size; 058011-AZ-XH Scorewas developed and its performance characteristics determinedby [employer]. It has not been cleared or approved by the Foodand Drug Administration.PATIENT WAS FASTINGPERFORMED BY: Twenga[address] [id number] BY: Omnireliant Xepvqh6179 LoraxAgAtrium Health Harrisburg [id number] MCV (RBC) [Entitic vol] 91 fL Normal 79-97 [facility] Internal Medicine Work Phone: Comment on above: Test(s) 473386-BZW-X ; 031635-ZQK-V; 581152-TZE-C; 438133-Meznigqqjczbh; 198522-Qzavhxjgjps, Total; 160173-ABF-K (Total);270517-Thdys LDL-P; 049387-PIM Size; 658627-CV-VF Scorewas developed and its performance characteristics determinedby [employer]. It has not been cleared or approved by the Foodand Drug Administration.PATIENT WAS FASTINGPERFORMED BY: Nudge [address] [id number] BY: [employer] [employer]on[employer] HealthcareAtrium Health [facility]burg [id number] Monocytes (Bld) [#/Vol] 0.4 {x10E3/uL} Normal 0.1-0.9 [facility] Internal Medicine Work Phone: Comment on above: Test(s) 866423-NKO-B ; 161991-ILQ-E; 007720-SWN-Y; 912170-Reihpugqhkhft; 154742-Rthsyluogal, Total; 021924-KXT-D (Total);499529-Ogwlu LDL-P; 520667-TKZ Size; 741425-MA-HC Scorewas developed and its performance characteristics determinedby [employer]. It has not been cleared or approved by the Foodand Drug Administration.PATIENT WAS FASTINGPERFORMED BY: [employer] [address] [id number] BY: OmnireliantThe Memorial Hospital of Salem CountyQhwbzh6968 [facility] [id number] Monocytes (Bld) [#/Vol] 0.4 10*3/uL Normal 0.1-0.9 [facility]; [facility] Work Phone: Monocytes/100 WBC (Bld) 4 % Normal [facility] Work Phone: Comment on above: Test(s) 856232-RSA-X ; 959867-VKI-A; 032564-QEN-D; 223726-Ccwtqlpzhrslx; 746650-Opoirkqfvhl, Total; 193879-XZS-M (Total);709287-Qsxnw LDL-P; 466784-ZUB Size; 779028-LU-LL Scorewas developed and its performance characteristics determinedby [employer]. It has not been cleared or approved by the Foodand Drug Administration.PATIENT WAS FASTINGPERFORMED BY: Sunglass[address] [id number] BY: [employer]70 [facility] [id number] Neutrophils (Bld) [#/Vol] 3.8 {x10E3/uL} Normal 1.4-7.0 [facility] Internal Medicine Work Phone: Comment on above: Test(s) 937820-WIZ-J ; 263313-TMW-V; 330119-APD-I; 337402-Djudzddxyebcw; 754606-Vwxabhrtgdn, Total; 528292-LUL-V (Total);310418-Rsvzx LDL-P; 910799-LAS Size; 999362-VW-AC Scorewas developed and its performance characteristics determinedby [employer]. It has not been cleared or approved by the Foodand Drug Administration.PATIENT WAS FASTINGPERFORMED BY: Nudge [address] [id number] BY: [employer]Sight Mobile Technologieslin6370 [facility] [id number] Neutrophils (Bld) [#/Vol] 3.8 10*3/uL Normal 1.4-7.0 [facility]; [facility] Work Phone: Neutrophils/100 WBC (Bld) 46 % Normal [facility] Work Phone: Comment on above: Test(s) 007093-NAM-K ; 659640-EJQ-E; 394613-DIW-T; 895406-Pqktvmabdnxhg; 156469-Xsscpawnudx, Total; 599425-KXD-M (Total);730715-Zvtmn LDL-P; 638407-GPA Size; 264503-KP-LW Scorewas developed and its performance characteristics determinedby [employer]. It has not been cleared or approved by the Foodand Drug Administration.PATIENT WAS FASTINGPERFORMED BY: Nudge [address] [id number] BY: [employer]70 [facility] [id number] Platelets (Bld) [#/Vol] 309 {x10E3/uL} Normal 150-450 [facility] Internal Medicine Work Phone: Comment on above: Test(s) 739898-STZ-L ; 345928-JUE-E; 577470-PJF-M; 491260-Tldvdayccniom; 516848-Zvddocsojbp, Total; 402357-ITW-K (Total);523482-Baqim LDL-P; 895248-KPT Size; 195344-DX-OV Scorewas developed and its performance characteristics determinedby [employer]. It has not been cleared or approved by the Foodand Drug Administration.PATIENT WAS FASTINGPERFORMED BY: Nudge [address] [id number] BY: [employer] Mobile Technologieslin6370 [facility] [id number] Platelets (Bld) [#/Vol] 309 10*3/uL Normal 150-450 [facility]; [facility] Internal Medicine Work Phone: RBC (Bld) [#/Vol] 4.72 {x10E6/uL} Normal 3.77-5.28 [facility] Internal Medicine Work Phone: Comment on above: Test(s) 795968-PDH-L ; 377243-DKJ-G; 612980-LQP-G; 496423-Fhvhfzmlhxues; 882042-Lfyovooeqsl, Total; 102820-SOL-E (Total);356572-Bawtw LDL-P; 999339-QRM Size; 059033-VA-QN Scorewas developed and its performance characteristics determinedby [employer]. It has not been cleared or approved by the Foodand Drug Administration.PATIENT WAS FASTINGPERFORMED BY: Nudge [address] [id number] BY: [employer] Otzjdk9058 [facility] [id number] RBC (Bld) [#/Vol] 4.72 10*6/uL Normal 3.77-5.28 [facility]; [facility] Work Phone: WBC (Bld) [#/Vol] 8.2 {x10E3/uL} Normal 3.4-10.8 [facility] Internal Medicine Work Phone: Comment on above: Test(s) 363363-ZLM-L ; 974225-FAB-Z; 881878-YPW-C; 854561-Afrlqnksdcwnl; 197714-Fowcfaabvjw, Total; 244918-HHA-A (Total);632004-Imztw LDL-P; 405550-TCN Size; 811942-JL-YY Scorewas developed and its performance characteristics determinedby [employer]. It has not been cleared or approved by the Foodand Drug Administration.PATIENT WAS FASTINGPERFORMED BY: Nudge [address] [id number] BY: [employer] Gkbmyx0403 [facility] [id number] WBC (Bld) [#/Vol] 8.2 10*3/uL Normal 3.4-10.8 [facility] Internal Medicine; [facility] Work Phone: MICROALBUMINOrdered By: Syst em Chip Separator on 07-14-2019 Albumin DL <= 20 mg/L (U) [Mass/Vol] 31.7 ug/mL Normal [facility] Work Phone: Comment on above: Test(s) 830658-NUZ-V ; 025207-DMM-D; 105794-BPT-X; 295355-Quismctqxbtkg; 314913-Filipawyvpb, Total; 207411-BWC-L (Total);401846-Jmfjn LDL-P; 493830-JBT Size; 211715-GN-NR Scorewas developed and its performance characteristics determinedby [employer]. It has not been cleared or approved by the Foodand Drug Administration.PATIENT WAS FASTINGPERFORMED BY: Nudge [address] [id number] BY: mySkin Zmkenx[address] [place] [address] [id number] Albumin/Creatinine (U) [Mass ratio] 47 {mg/g_creat} Abnormal 0-29 [facility] Work Phone: Comment on above: Normal: 0 - 29 Moder ately increased: 30 - 300 Severely Increased: >300 Please note reference interval change Test(s) 515971-HJW-R ; 134057-UMW-O; 100154-LGI-T; 932240-Kcytcauulsdqs; 367901-Twmcpvnyhlk, Total; 662561-MPK-Y (Total);966778-Drxwa LDL-P; 439169-TZJ Size; 916460-FH-SQ Scorewas developed and its performance characteristics determinedby [employer]. It has not been cleared or approved by the [employer] Drug Administration.PATIENT WAS FASTINGPERFORMED BY: Nudge [address] [id number] BY: ObserveIT6370 [facility] [id number] Creatinine (U) [Mass/Vol] 67.4 mg/dL Normal [facility] Work Phone: Comment on above: Test(s) 387145-ODB-U ; 069693-TKN-O; 128249-FMZ-O; 779526-Wcgoowlolkkae; 185582-Kssivktqxlr, Total; 400921-TIS-J (Total);433047-Kddgs LDL-P; 842144-WSR Size; 524012-UK-IL Scorewas developed and its performance characteristics determinedby [employer]. It has not been cleared or approved by the Foodand Drug Administration.PATIENT WAS FASTINGPERFORMED BY: Nudge [address] [id number] BY: ObserveIT6370 [facility] [id number] Metabolic Panel, Comprehensi ve (01458)Ordered By: Gas Fitter on 07-14-2019 Albumin [Mass/Vol] 4.7 g/dL Normal 3.7-4.7 [facility] Internal Medicine Work Phone: Comment on above: Please note refere nce interval change Test(s) 025360-SQO-M ; 126664-ZBH-L; 379283-MET-J; 881472-Rsyqrkrolrvgx; 171859-Urpcshhnioa, Total; 157934-BTE-X (Total);012327-Rjzjt LDL-P; 712432-TSN Size; 083071-UP-XU Scorewas developed and its performance characteristics determinedby [employer]. It has not been cleared or approved by the Foodand Drug Administration.PATIENT WAS FASTINGPERFORMED BY: Sunglass[address] [id number] BY: ObserveIT6370 [facility] [id number] Albumin/Globulin [Mass ratio] 2.0 {ratio} Normal 1.2-2.2 [facility] Work Phone: Comment on above: Test(s) 066870-YRX-P ; 933001-PZP-F; 015658-NVC-B; 780778-Uaxeunhlcrncl; 166017-Ihilucysuur, Total; 963073-NHN-Z (Total);322050-Aqwpr LDL-P; 697344-KHM Size; 168307-UW-HT Scorewas developed and its performance characteristics determinedby [employer]. It has not been cleared or approved by the Foodand Drug Administration.PATIENT WAS FASTINGPERFORMED BY: Sunglass[address] [id number] BY: ObserveIT6370 [facility] [id number] ALP [Catalytic activity/Vol] 77 [iU]/L Normal 39-117 [facility] Work Phone: Comment on above: Test(s) 807382-GWB-Q ; 811308-QBD-U; 255063-NSH-N; 246424-Nqxlysysetujf; 621040-Bcqijexjxyb, Total; 982145-SNW-T (Total);532536-Ozjjq LDL-P; 675206-XMV Size; 266870-KU-FY Scorewas developed and its performance characteristics determinedby [employer]. It has not been cleared or approved by the Foodand Drug Administration.PATIENT WAS FASTINGPERFORMED BY: Sunglass[address] [id number] BY: [employer]70 [facility] [id number] ALP [Catalytic activity/Vol] 77 U/L Normal 39-117 [facility]; [facility] Work Phone: ALT [Catalytic activity/Vol] 28 [iU]/L Normal 0-32 [facility] Work Phone: Comment on above: Test(s) 483731-LAU-J ; 908619-LHX-H; 581632-QHO-K; 071882-Pwggssokoqmnw; 559431-Ckovtaoolyf, Total; 211667-JCG-C (Total);236441-Malro LDL-P; 185479-CJX Size; 735837-NC-HH Scorewas developed and its performance characteristics determinedby [employer]. It has not been cleared or approved by the Foodand Drug Administration.PATIENT WAS FASTINGPERFORMED BY: Nudge [address] [id number] BY: ObserveIT6370 [facility] [id number] ALT [Catalytic activity/Vol] 28 U/L Normal 0-32 [facility]; [facility] Work Phone: AST [Catalytic activity/Vol] 24 [iU]/L Normal 0-40 [facility] Work Phone: Comment on above: Test(s) 884046-VTO-R ; 300678-ENE-M; 123509-YHV-T; 729351-Cywenoxtwcqhr; 152602-Jjpmzfqaagq, Total; 038572-SZT-V (Total);923107-Iyona LDL-P; 786806-EAD Size; 328682-YV-GM Scorewas developed and its performance characteristics determinedby [employer]. It has not been cleared or approved by the Foodand Drug Administration.PATIENT WAS FASTINGPERFORMED BY: Twenga[address] [id number] BY: [employer] Ozkmib6913 [facility] [id number] AST [Catalytic activity/Vol] 24 U/L Normal 0-40 [facility]; [facility] Work Phone: Bilirubin [Mass/Vol] 0.5 mg/dL Normal 0.0-1.2 [facility] Internal Medicine Work Phone: Comment on above: Test(s) 486625-FUO-S ; 742541-CYJ-A; 334503-FOB-J; 726791-Samrvcvtmsria; 325260-Gvefykqceqg, Total; 950213-WLL-C (Total);070307-Mahtf LDL-P; 159843-NZQ Size; 282100-QC-MC Scorewas developed and its performance characteristics determinedby [employer]. It has not been cleared or approved by the Foodand Drug Administration.PATIENT WAS FASTINGPERFORMED BY: Nudge [address] [id number] BY: [employer] Ptntdk3288 [facility] [id number] Calcium [Mass/Vol] 9.9 mg/dL Normal 8.7-10.3 [facility] Internal Medicine Work Phone: Comment on above: Test(s) 930934-QJE-J ; 190726-LSY-D; 732544-AYD-X; 804907-Alnmuhhnmxqka; 103369-Lwyjnfhdbrj, Total; 345182-CNW-M (Total);619113-Jigls LDL-P; 914860-WAV Size; 485300-XX-MK Scorewas developed and its performance characteristics determinedby [employer] Analytics. It has not been cleared or approved by the Foodand Drug Administration.PATIENT WAS FASTINGPERFORMED BY: BN [facility] [address]Bur[place] [id number] BY: Direct Media TechnologiesNew Mexico Behavioral Health Institute at Las VegasSdaznd8292 [facility] [id number] Chloride [Moles/Vol] 102 mmol/L Normal 96-106 [facility] Work Phone: Comment on above: Test(s) 255304-GWW-P ; 172980-XJD-O; 456432-WJO-X; 152917-Jeifuuufqvxef; 907469-Sqrmhehpulc, Total; 509617-NKR-Q (Total);058492-Ubwxz LDL-P; 595507-FAD Size; 119926-JX-WC Scorewas developed and its performance characteristics determinedby [employer]. It has not been cleared or approved by the Foodand Drug Administration.PATIENT WAS FASTINGPERFORMED BY: Nudge [address] [id number] BY: ObserveIT6370 [facility] [id number] CO2 [Moles/Vol] 25 mmol/L Normal 20-29 [facility] Internal Medicine Work Phone: Comment on above: Test(s) 955819-KOE-L ; 658250-NTE-I; 431010-VDR-P; 009224-Fyuvwscxplcah; 264023-Jpunauztipb, Total; 243292-EAM-A (Total);154397-Mjapg LDL-P; 508721-ELI Size; 420857-PH-JO Scorewas developed and its performance characteristics determinedby [employer]. It has not been cleared or approved by the Foodand Drug Administration.PATIENT WAS FASTINGPERFORMED BY: Nudge [address] [id number] BY: mySkin Cfslzx4079 [facility] [id number] Creatinine [Mass/Vol] 0.89 mg/dL Normal 0.57-1.00 [facility] Work Phone: Comment on above: Test(s) 322737-KGZ-Q ; 696905-KIS-P; 948124-OTN-K; 074891-Wvpzicccwjqbd; 941615-Qdgvolelszt, Total; 765997-AON-C (Total);973138-Vdcww LDL-P; 416412-NNJ Size; 706866-LZ-UH Scorewas developed and its performance characteristics determinedby [employer]. It has not been cleared or approved by the Foodand Drug Administration.PATIENT WAS FASTINGPERFORMED BY: Omnireliant[address] [id number] BY: [employer] [address] [id number] GFR/1.73 sq M predicted among blacks CKD-EPI (S/P/Bld) [Vol rate/Area] 75 mL/min/1.73 Normal [facility] Work Phone: Comment on above: Test(s) 940303-YSN-Y ; 337239-OCN-B; 704982-JAT-M; 853747-Qkxtxfxqxunhe; 959386-Otfiffesnff, Total; 303868-PZH-E (Total);621225-Hsrdx LDL-P; 041092-RJU Size; 258817-IL-IL Scorewas developed and its performance characteristics determinedby [employer]. It has not been cleared or approved by the Foodand Drug Administration.PATIENT WAS FASTINGPERFORMED BY: Omnireliant[address] [id number] BY: [employer] Jungnp0796 [facility] [id number] GFR/1.73 sq M predicted among non-blacks CKD-EPI (S/P/Bld) [Vol rate/Area] 65 mL/min/1.73 Normal [facility] Work Phone: Comment on above: Test(s) 432210-TRC-R ; 969709-WVM-X; 275779-UHH-X; 220345-Mgqtsgnvyqibb; 856732-Phdsxfosvop, Total; 946565-AUH-D (Total);175540-Osydh LDL-P; 891326-OTN Size; 963605-BZ-MR Scorewas developed and its performance characteristics determinedby [employer]. It has not been cleared or approved by the Foodand Drug Administration.PATIENT WAS FASTINGPERFORMED BY: Sunglass[address] [id number] BY: Omnireliant Abuygb7021 [facility] [id number] Globulin (S) [Mass/Vol] 2.3 g/dL Normal 1.5-4.5 [facility] Internal Medicine Work Phone: Comment on above: Test(s) 947074-HWA-L ; 149836-GKU-G; 720877-BET-B; 265123-Ekqmnpmgacsuf; 869743-Cbtfooeuspa, Total; 109447-FJF-N (Total);700345-Rgqjt LDL-P; 931146-OPN Size; 726699-EI-BN Scorewas developed and its performance characteristics determinedby [employer]. It has not been cleared or approved by the Foodand Drug Administration.PATIENT WAS FASTINGPERFORMED BY: Sunglass[address] [id number] BY: ObserveIT6370 [facility] [id number] Glucose [Mass/Vol] 99 mg/dL Normal 65-99 [facility] Internal Medicine Work Phone: Comment on above: Test(s) 054305-CBN-F ; 273189-JQS-F; 323999-PVT-M; 572768-Bqoiwcgcpeppo; 911861-Nxgngflmytg, Total; 335575-EDD-Q (Total);787822-Kxdbf LDL-P; 796494-AOJ Size; 865841-ML-XT Scorewas developed and its performance characteristics determinedby [employer]. It has not been cleared or approved by the Foodand Drug Administration.PATIENT WAS FASTINGPERFORMED BY: Twenga[address] [id number] BY: Omnireliant Tfgwcp3493 [facility] [id number] Potassium [Moles/Vol] 4.8 mmol/L Normal 3.5-5.2 [facility] Internal Medicine Work Phone: Comment on above: Test(s) 803007-FBI-T ; 770022-KEC-P; 003538-SRB-O; 360295-Tyhloweolldyt; 745956-Ehaqjsmnqim, Total; 108363-YHQ-X (Total);523548-Ybeyc LDL-P; 323127-OUD Size; 435316-QY-CP Scorewas developed and its performance characteristics determinedby [employer]. It has not been cleared or approved by the Foodand Drug Administration.PATIENT WAS FASTINGPERFORMED BY: Nudge [address] [id number] BY: [employer] Bytjqp1267 [facility] [id number] Protein [Mass/Vol] 7.0 g/dL Normal 6.0-8.5 [facility] Internal Medicine Work Phone: Comment on above: Test(s) 134036-IKF-K ; 132035-GMI-Y; 379470-FOZ-F; 917035-Yixusdbltnoej; 251155-Upuclxnuztf, Total; 208105-WFD-R (Total);601290-Tpuuu LDL-P; 358029-EQK Size; 375970-IG-QP Scorewas developed and its performance characteristics determinedby [employer]. It has not been cleared or approved by the Foodand Drug Administration.PATIENT WAS FASTINGPERFORMED BY: Nudge [address] [id number] BY: [employer] Vodbaf5743 [facility] [id number] Sodium [Moles/Vol] 142 mmol/L Normal 134-144 [facility] Internal Medicine Work Phone: Comment on above: Test(s) 376673-CUI-O ; 045189-SXU-J; 972927-WQA-E; 988706-Vevxivhvuxzur; 631092-Erqcdyqwkag, Total; 753100-WZF-K (Total);606962-Zvzzc LDL-P; 886105-NRO Size; 530808-VY-IL Scorewas developed and its performance characteristics determinedby [employer]. It has not been cleared or approved by the Foodand Drug Administration.PATIENT WAS FASTINGPERFORMED BY: BN Lab[facility] [id number] BY: [employer] Jbbqgy5323 [facility] [id number] Urea nitrogen [Mass/Vol] 14 mg/dL Normal 8-27 [facility] Work Phone: Comment on above: Test(s) 513682-ECE-P ; 737718-MIM-Q; 169366-YBV-A; 240609-Kdzueixwcntbc; 335098-Brdnfrqqfji, Total; 029946-BDL-R (Total);266266-Clmoo LDL-P; 544941-LHI Size; 639341-BK-EV Scorewas developed and its performance characteristics determinedby [employer]. It has not been cleared or approved by the Foodand Drug Administration.PATIENT WAS FASTINGPERFORMED BY: Nudge [address] [id number] BY: ObserveIT6370 [facility] [id number] Urea nitrogen/Creatinine [Mass ratio] 16 mg/mg Normal 12- [facility] Work Phone: Comment on above: Test(s) 597116-FPD-C ; 857375-ODJ-F; 836918-QFD-R; 563575-Nkvyhtgiycffb; 093314-Reupocrhwgf, Total; 421090-MFG-J (Total);633574-Yhlrz LDL-P; 656965-ZOT Size; 332595-GY-DC Scorewas developed and its performance characteristics determinedby [employer]. It has not been cleared or approved by the Foodand Drug Administration.PATIENT WAS FASTINGPERFORMED BY: Twenga[address] [id number] BY: Direct Media TechnologiesThe Memorial Hospital of Salem CountyClujky9124 [facility] [id number] NMR Profile (83978)Ordered B y: Gas Fitter on 07-14-2019 Cholesterol [Mass/Vol] 144 mg/dL Normal 100-199 [facility] Work Phone: Comment on above: Test(s) 881630-PHA-G ; 388807-EMR-K; 906094-VDO-E; 563735-Lhaptfxtmtkpy; 932153-Ugbqrxmgctm, Total; 947441-UAD-L (Total);271138-Nbhbv LDL-P; 950117-RMF Size; 753113-GI-AE Scorewas developed and its performance characteristics determinedby [employer]. It has not been cleared or approved by the Foodand Drug Administration.PATIENT WAS FASTINGPERFORMED BY: Nudge [address] [id number] BY: [facility]70 [facility] [id number] Lipoprotein.alpha [Moles/Vol] 31.3 umol/L Normal [facility] Work Phone: Comment on above: Test(s) 930270-QZP-L ; 362053-EQV-N; 894157-WSG-V; 369884-Ydbennsenfwvh; 758264-Vrzluyhaowz, Total; 930677-BVG-I (Total);581247-Nvqen LDL-P; 737600-GAV Size; 524076-WM-RO Scorewas developed and its performance characteristics determinedby [employer]. It has not been cleared or approved by the Foodand Drug Administration.PATIENT WAS FASTINGPERFORMED BY: Nudge [address] [id number] BY: ObserveIT6370 [facility] [id number] Lipoprotein.beta.subp article [Entitic length] 20.0 nm Abnormal [facility] Work Phone: Comment on above: INTERPRETATIVE INFORMATION PARTICLE CONCENTRATION AND SIZE <--Lower CVD Risk Higher CVD Risk--> LDL AND HDL PARTICLES Percentile in Reference Population HDL-P (total) High 75th 50th 25th Low >34.9 34.9 30.5 26.7 <26.7 . Small LDL-P Low 25th 50th 75th High <117 117 527 839 >839 . LDL Size <-Large (Pattern A)-> <-Small (Pattern B)-> 23.0 20.6 20.5 19.0 Small LDL-P and LDL Size are associated with CVD risk, but not afterLDL-P is taken into account. Test(s) 717612-XRS-L ; 668944-CMX-Y; 113167-QAZ-Y; 709684-Rlrmwmgdvjlsq; 670887-Alqnhgwgmpk, Total; 145829-OSB-Q (Total);960883-Kjeiw LDL-P; 639219-KXA Size; 332785-NB-NY Scorewas developed and its performance characteristics determinedby [employer]. It has not been cleared or approved by the Foodand Drug Administration.PATIENT WAS FASTINGPERFORMED BY: Sunglass[address] [id number] BY: LyfeSystemsNovant Health Franklin [facility] Center [id number] Lipoprotein.beta.subp article [Moles/Vol] 887 nmol/L Normal Comprehensiv e Internal Medicine Work Phone: Comment on above: Low < 1000 Moderate 1000 - 1299 Borderline-High 1300 - 1599 High 1600 - 2000 Very High > 2000 Test(s) 818548-MWB-Y ; 372453-SII-E; 981659-ZTR-G; 158177-Etzrvglzvtfnp; 757513-Miormhvasfr, Total; 249704-PPA-R (Total);602284-Rpipm LDL-P; 834461-RAX Size; 952383-GJ-KW Scorewas developed and its performance characteristics determinedby [employer]. It has not been cleared or approved by the Foodand Drug Administration.PATIENT WAS FASTINGPERFORMED BY: Sunglass[address] [id number] BY: HandmarkAtrium Health Harrisburg [id number] Lipoprotein.beta.subp article.small [Moles/Vol] 478 nmol/L Normal [facility] Work Phone: Comment on above: Test(s) 466665-CWY-H ; 991061-MJH-J; 516892-HWZ-N; 638091-Kylyznperapkh; 256916-Lrhkcgbjzsv, Total; 255518-BBO-E (Total);222299-Mcfwr LDL-P; 432204-OWU Size; 153154-VH-SV Scorewas developed and its performance characteristics determinedby [employer]. It has not been cleared or approved by the Foodand Drug Administration.PATIENT WAS FASTINGPERFORMED BY: Sunglass[address] [id number] BY: [employer]70 [facility] [id number] Triglyceride [Mass/Vol] 205 mg/dL Abnormal 0-149 [facility] Internal Medicine Work Phone: Comment on above: Test(s) 315899-GML-K ; 642314-TYI-A; 549116-WBN-P; 106249-Jaabzcyeoxhwz; 726148-Jbsfeeczxzc, Total; 224519-ETY-T (Total);291583-Mdeci LDL-P; 137490-CIA Size; 368222-XH-TD Scorewas developed and its performance characteristics determinedby [employer]. It has not been cleared or approved by the Foodand Drug Administration.PATIENT WAS FASTINGPERFORMED BY: Sunglass[address] [id number] BY: ObserveIT6370 [facility] [id number] NMR Profile (39000) 40 mg/dL Normal [facility] Internal Medicine Work Phone: Comment on above: Test(s) 460418-IGA-M ; 021828-JJG-T; 744251-TJQ-Q; 904399-Fqbsxhoegmwft; 595218-Ihzqhebqkcw, Total; 135183-IYS-P (Total);313202-Jvgom LDL-P; 065025-WIS Size; 417906-KW-LH Scorewas developed and its performance characteristics determinedby [employer]. It has not been cleared or approved by the Food[employer] Drug Administration.PATIENT WAS FASTINGPERFORMED BY: Nudge [address] [id number] BY: OmnireliantThe Memorial Hospital of Salem CountyGjoymv9354 [facility] [id number] NMR Profile (02547) 63 mg/dL Normal 0-99 [facility] Internal Medicine Work Phone: Comment on above: . Optimal < 100 Abov e optimal 100 - 129 Borderline 130 - 159 High 160 - 189 Very high > 189 .LDL-C is inaccurate if patient is non-fasting. Test(s) 538432-OOP-M ; 148440-ZAA-E; 728950-TSM-K; 273221-Vfmdotyqufzzu; 879132-Svoaflnyete, Total; 071534-JPK-V (Total);206762-Fghrz LDL-P; 092893-XIS Size; 845112-RP-WS Scorewas developed and its performance characteristics determinedby [employer]. It has not been cleared or approved by the PlanStan Drug Administration.PATIENT WAS FASTINGPERFORMED BY: Nudge [address] [id number] BY: mySkin Inlreo6336 [facility] [id number] NMR Profile (77947) 205 mg/dL Abnormal 0-149 [facility] Internal Medicine; [facility] Work Phone: NMR Profile (26311) 144 mg/dL Normal 100-199 [facility] Internal Medicine; [facility] Internal Medicine Work Phone: URINALYSIS, W/ MICRO ([phone]) Ordered By: Gas Fitter on 07-14-2019 Appearance (U) Clear Normal [facility]prehens [facility] Internal Medicine Work Phone: Comment on above: Test(s) 065506-JBL-J ; 896345-TDN-X; 167988-EQH-P; 150272-Xcqlseaksyanm; 582140-Yytwdupidbr, Total; 236011-FKM-Y (Total);459549-Zpyjo LDL-P; 815016-JAZ Size; 392783-VF-VS Scorewas developed and its performance characteristics determinedby [employer]. It has not been cleared or approved by the Foodand Drug Administration.PATIENT WAS FASTINGPERFORMED BY: Nudge [address] [id number] BY: [employer] CultureIQNovant Health [facility] Center [id number] Bilirubin Ql (U) Negative Normal Comprehe nsive Internal Medicine Work Phone: Comment on above: Test(s) 345624-IQE-Q ; 599068-EXP-A; 039565-DQR-L; 848122-Luahtxsllcvcg; 037573-Ncjulxkmlcb, Total; 451214-XKR-S (Total);756107-Zdzud LDL-P; 336335-ZTS Size; 816119-MO-LE Scorewas developed and its performance characteristics determinedby [employer]. It has not been cleared or approved by the Foodand Drug Administration.PATIENT WAS FASTINGPERFORMED BY: Nudge [address] [id number] BY: [facility] [employer] Photonics HealthcareAtrium Health [facility] [id number] Bilirubin Ql (U) Negative Normal Comprehe nsive Internal Medicine; [facility] Work Phone: Color (U) Yellow Normal [facility] Work Phone: Comment on above: Test(s) 678092-EFX-X ; 071005-FJO-G; 073492-XRG-T; 276839-Toasqnkcfepna; 819871-Xvgbzwftmsu, Total; 394946-HAU-F (Total);214007-Cediw LDL-P; 441075-FUH Size; 346253-PI-QP Scorewas developed and its performance characteristics determinedby [employer]. It has not been cleared or approved by the Foodand Drug Administration.PATIENT WAS FASTINGPERFORMED BY: Nudge [address] [id number] BY: eyeSight Mobile Technologieslin6370 [facility] [facility] [id number] Glucose Ql (U) Negative Normal [facility] Internal Medicine Work Phone: Comment on above: Test(s) 478357-FQA-R ; 271287-ATB-A; 372539-EHE-R; 076577-Cflotynxtddne; 699336-Eevunkvdzdf, Total; 547329-SLM-J (Total);610543-Laxge LDL-P; 222048-JZG Size; 347112-LX-RG Scorewas developed and its performance characteristics determinedby [employer]. It has not been cleared or approved by the Foodand Drug Administration.PATIENT WAS FASTINGPERFORMED BY: Nudge [address] [id number] BY: HandmarkAtrium Health [facility] [id number] Glucose Ql (U) Negative Normal [facility]; [facility] Work Phone: Hemoglobin Ql (U) Negative Normal Compreh ensive Internal Medicine Work Phone: Comment on above: Test(s) 946514-NCC-P ; 929544-SCK-D; 018417-UPW-D; 775667-Cbusptrvfhtqz; 257477-Zmaqfvxecex, Total; 847876-CQB-S (Total);366871-Tgmdj LDL-P; 336847-FMA Size; 061941-IB-CG Scorewas developed and its performance characteristics determinedby [employer]. It has not been cleared or approved by the PlanStan Drug Administration.PATIENT WAS FASTINGPERFORMED BY: Nudge [address] [id number] BY: [employer]70 [address] CultureIQNovant Health [facility] Center [id number] Hemoglobin Ql (U) Negative Normal Compreh ensive Internal Medicine; [facility] Work Phone: Ketones Ql (U) Negative Normal [facility] Work Phone: Comment on above: Test(s) 434548-AGR-M ; 530838-SWL-Z; 830345-AHB-B; 309609-Fipgnfztqayoo; 085626-Bzuhbwkwblw, Total; 287164-GBR-P (Total);572128-Dgxiw LDL-P; 783618-YYR Size; 368988-UH-RH Scorewas developed and its performance characteristics determinedby [employer]. It has not been cleared or approved by the Foodand Drug Administration.PATIENT WAS FASTINGPERFORMED BY: Nudge [address] [id number] BY: OmnireliantThe Memorial Hospital of Salem CountyDdraxo7778 [facility] [id number] Ketones Ql (U) Negative Normal [facility]; [facility] Work Phone: Leukocyte esterase Test strip Ql (U) 3+ Abnormal [facility] Work Phone: Comment on above: Test(s) 004142-JSP-R ; 916308-ZOX-I; 086544-ZIB-A; 984543-Xvdrhwsxpyfad; 843640-Iwjzpwdabfd, Total; 355382-TEF-Y (Total);011235-Xpzgo LDL-P; 994433-WHJ Size; 124530-SI-OM Scorewas developed and its performance characteristics determinedby [employer]. It has not been cleared or approved by the Foodand Drug Administration.PATIENT WAS FASTINGPERFORMED BY: Nudge [address] [id number] BY: OmnireliantThe Memorial Hospital of Salem CountyZxunmk0777 [facility] [id number] Microscopic observation LM Nom (Urine sed) See below: Normal [facility] Work Phone: Comment on above: Microscopic was calli cated and was performed. Test(s) 788359-SCT-O ; 555611-PCA-I; 300079-PVL-P; 081243-Iuxawfqycjcqv; 979251-Tmggesafkjg, Total; 699568-ZDW-U (Total);213000-Dfcnj LDL-P; 011725-AGI Size; 555714-WV-HB Scorewas developed and its performance characteristics determinedby [employer]. It has not been cleared or approved by the Foodand Drug Administration.PATIENT WAS FASTINGPERFORMED BY: Nudge [address] [id number] BY: [facility]70 [address] CultureIQNovant Health [facility] Center [id number] Nitrite Ql (U) Negative Normal [facility] Work Phone: Comment on above: Test(s) 759893-GNN-W ; 256620-YRH-D; 733004-LNI-J; 138000-Wlttpiccblymj; 950760-Swuhrnirbkv, Total; 894864-NGN-M (Total);830615-Nddpj LDL-P; 098440-GZQ Size; 750829-AQ-IY Scorewas developed and its performance characteristics determinedby [employer]. It has not been cleared or approved by the Foodand Drug Administration.PATIENT WAS FASTINGPERFORMED BY: Nudge [address] [id number] BY: [facility]70 [address] CultureIQNov[facility] Health [facility] Center [id number] Nitrite Ql (U) Negative Normal [facility]; [facility] Work Phone: pH (U) 6.0 [pH] Normal 5.0-7.5 [facility] Work Phone: Comment on above: Test(s) 289813-XFZ-B ; 615310-EIF-F; 974077-SCR-S; 183577-Nvutszhbgsghx; 998028-Durqhxympyg, Total; 540146-JFS-Z (Total);032146-Rfavf LDL-P; 456296-DFF Size; 722383-AF-PZ Scorewas developed and its performance characteristics determinedby [employer]. It has not been cleared or approved by the Foodand Drug Administration.PATIENT WAS FASTINGPERFORMED BY: Nudge [address] [id number] BY: ObserveIT6370 [address] CultureIQNovant Health [facility] Center [id number] Protein Ql (U) Negative Normal [facility]prehens [facility] Work Phone: Comment on above: Test(s) 193728-ING-O ; 445141-UTD-E; 698228-HAI-S; 075177-Koddigiurynvy; 911584-Kghdydrpaoh, Total; 481196-NHU-J (Total);017174-Lfuqc LDL-P; 418213-TPD Size; 893267-DV-DD Scorewas developed and its performance characteristics determinedby [employer]. It has not been cleared or approved by the Foodand Drug Administration.PATIENT WAS FASTINGPERFORMED BY: Omnireliant[address] [id number] BY: [employer] Uodmdp2196 [facility] [id number] Protein Ql (U) Negative Normal [facility] Internal Medicine; [facility] Internal Medicine Work Phone: Specific gravity (U) [Rel density] 1.012 1 Normal 1.005-1.03 0 [facility] Internal Medicine Work Phone: Comment on above: Test(s) 810774-KPB-C ; 770734-BBU-D; 560897-OPG-W; 810127-Jwfkzyiynrqwc; 089828-Gxuyjimlrlu, Total; 335249-XXO-F (Total);072687-Kyadu LDL-P; 012832-CNM Size; 677437-YI-FV Scorewas developed and its performance characteristics determinedby [employer]. It has not been cleared or approved by the Foodand Drug Administration.PATIENT WAS FASTINGPERFORMED BY: Nudge [address] [id number] BY: Direct Media TechnologiesNew Mexico Behavioral Health Institute at Las VegasUplmid1686 [facility] [id number] Urobilinogen (U) [Mass/Vol] 0.2 mg/dL Normal 0.2-1.0 [facility] Internal Medicine; [facility] Internal Medicine Work Phone: Urobilinogen Test strip (U) [Mass/Vol] 0.2 mg/dL Normal 0.2-1.0 [facility] Internal Medicine Work Phone: Comment on above: Test(s) 021647-HWJ-F ; 868113-MYY-I; 950962-HDL-Z; 759129-Soqcgqnjocejm; 630125-Ttwzqhsjoan, Total; 008744-OZO-X (Total);689116-Pxson LDL-P; 986329-DVE Size; 993160-YN-EE Scorewas developed and its performance characteristics determinedby [employer]. It has not been cleared or approved by the Foodand Drug Administration.PATIENT WAS FASTINGPERFORMED BY: BN [facility] Ehcefeneil6885 [facility] [id number] BY: CB [facility] Qdcjhb6783 [facility] [id number] Blood Glucose , Office ([phone])Ordered By: Joya Elliott on 03-22-2019 Glucose Glucometer (BldC) [Moles/Vol] 120 1 Normal [facility] Work Phone: HgA1C , Office ([phone])Ordere d By: Joya Elliott on 03-22-2019 HbA1c (Bld) [Mass fraction] 5.7 % Normal 4.6 - 7.1 [facility] Work Phone: Clinical Summary: HMSPatient IDon 03-05-2019 [facility] Work Phone: Blood Glucose , Office ([phone])Ordered By: Carole Villanueva on 11-20-2018 Glucose Glucometer (BldC) [Moles/Vol] 98 1 Normal [facility] Work Phone: HgA1C , Office ([phone])Ordere d By: Caroel Villanueva on 11-20-2018 HbA1c (Bld) [Mass fraction] 5.8 % Normal 4.6 - 7.1 [facility] Work Phone: CALCIFEDIOL ([phone])Ordered B y: Gas Fitter on 11-10-2018 25-Hydroxyvitamin D2+25-Hydroxyvitamin D3 [Mass/Vol] 64.3 ng/mL Normal 30.0-100.0 [facility] Work Phone: Comment on above: Vitamin D deficiency has been defined by the [employer] ofMed[employer] and an Endocrine Society practice guideline as alevel of serum 25-OH vitamin D less than 20 ng/mL (1,2).The Endocrine Society went on to further define vitamin Dinsufficiency as a level between 21 and 29 ng/mL (2).1. IOM ([place] of Medicine). 2010. Dietary reference intakes for calcium and D. [place]: The National Academies Press.2. Néstor MF, Jorge IVY, Justus ZHOU, et al. Evaluation, treatment, and prevention of vitamin D deficiency: an Endocrine Society clinical practice guideline. JCEM. 2010; 96(7):1911-30. A courtesy copy of t his report has been sent [phone].PATIENT WAS FASTINGPERFORMED BY: Sunglass[address] [id number] BY: [facility] [facility] [id number] CBC W/AUTO DIFF WBC (72458)O rdered By: Gas Fitter on 11-10-2018 Basophils (Bld) [#/Vol] 0.0 {x10E3/uL} Normal 0.0-0.2 [facility] Work Phone: Comment on above: A courtesy copy of t his report has been sent [phone].PATIENT WAS FASTINGPERFORMED BY: Sunglass[address] [id number] BY: [employer]70 [facility] [id number] Basophils (Bld) [#/Vol] 0.0 10*3/uL Normal 0.0-0.2 [facility]; [facility] Work Phone: Basophils/100 WBC (Bld) 0 % Normal [facility] Work Phone: Comment on above: A courtesy copy of t his report has been sent [phone].PATIENT WAS FASTINGPERFORMED BY: Sunglass[address] [id number] BY: [employer]70 [facility] [id number] Eosinophils (Bld) [#/Vol] 0.3 {x10E3/uL} Normal 0.0-0.4 [facility] Work Phone: Comment on above: A courtesy copy of t his report has been sent [phone].PATIENT WAS FASTINGPERFORMED BY: [employer] [address] [id number] BY: Omnireliant Attodd4265 [facility] [id number] Eosinophils (Bld) [#/Vol] 0.3 10*3/uL Normal 0.0-0.4 [facility]; [facility] Work Phone: Eosinophils/100 WBC (Bld) 4 % Normal [facility] Work Phone: Comment on above: A courtesy copy of t his report has been sent [phone].PATIENT WAS FASTINGPERFORMED BY: Sunglass[address] [id number] BY: [employer]70 [facility] [id number] Erythrocyte distribution width (RBC) [Ratio] 13.6 % Normal 12.3-15.4 [facility] Work Phone: Comment on above: A courtesy copy of t his report has been sent [phone].PATIENT WAS FASTINGPERFORMED BY: Sunglass[address] [id number] BY: Omnireliant Ppfjsp6300 [facility] [id number] Hematocrit (Bld) [Volume fraction] 41.9 % Normal 34.0-46.6 [facility] Work Phone: Comment on above: A courtesy copy of t his report has been sent [phone].PATIENT WAS FASTINGPERFORMED BY: [employer] [address] [id number] BY: [place]ireliantKimberly V[place] 8076070 [facility] [id number] Hemoglobin (Bld) [Mass/Vol] 13.7 g/dL Normal 11.1-15.9 [facility] Work Phone: Comment on above: A courtesy copy of t his report has been sent [phone].PATIENT WAS FASTINGPERFORMED BY: Omnireliant[address] [id number] BY: [facility]6370 [facility] [id number] Immature granulocytes (Bld) [#/Vol] 0.0 {x10E3/uL} Normal 0.0-0.1 [facility] Work Phone: Comment on above: A courtesy copy of t his report has been sent [phone].PATIENT WAS FASTINGPERFORMED BY: Omnireliant[address] [id number] BY: [place]ireliantKimberly V[place] 8076070 [facility] [id number] Immature granulocytes (Bld) [#/Vol] 0.0 10*3/uL Normal 0.0-0.1 [facility]; [facility] Work Phone: Immature granulocytes/100 WBC (Bld) 0 % Normal [facility] Work Phone: Comment on above: A courtesy copy of t his report has been sent [phone].PATIENT WAS FASTINGPERFORMED BY: Omnireliant[address] [id number] BY: [place]Kim[place] 8076070 [facility] [id number] Lymphocytes (Bld) [#/Vol] 3.7 {x10E3/uL} Abnormal 0.7-3.1 [facility] Work Phone: Comment on above: A courtesy copy of t his report has been sent [phone].PATIENT WAS FASTINGPERFORMED BY: Omnireliant[address] [id number] BY: [place] 7062870 [facility] [id number] Lymphocytes (Bld) [#/Vol] 3.7 10*3/uL Abnormal 0.7-3.1 [facility]; [facility] Work Phone: Lymphocytes/100 WBC (Bld) 47 % Normal [facility] Work Phone: Comment on above: A courtesy copy of t his report has been sent [phone].PATIENT WAS FASTINGPERFORMED BY: Omnireliant[address] [id number] BY: [employer] [facility] [id number] MCH (RBC) [Entitic mass] 29.8 pg Normal 26.6-33.0 [facility] Work Phone: Comment on above: A courtesy copy of t his report has been sent [phone].PATIENT WAS FASTINGPERFORMED BY: Sunglass[address] [id number] BY: [employer] [facility] [id number] MCHC (RBC) [Mass/Vol] 32.7 g/dL Normal 31.5-35.7 [facility] Internal Medicine Work Phone: Comment on above: A courtesy copy of t his report has been sent [phone].PATIENT WAS FASTINGPERFORMED BY: [employer] [address] [id number] BY: [employer] [employer]70 [facility] [id number] MCV (RBC) [Entitic vol] 91 fL Normal 79-97 [facility] Work Phone: Comment on above: A courtesy copy of t his report has been sent [phone].PATIENT WAS FASTINGPERFORMED BY: Omnireliant[address] [id number] BY: OmnireliantThe Memorial Hospital of Salem CountyQkqxbj8521 [facility] [id number] Monocytes (Bld) [#/Vol] 0.4 {x10E3/uL} Normal 0.1-0.9 [facility] Internal Medicine Work Phone: Comment on above: A courtesy copy of t his report has been sent [phone].PATIENT WAS FASTINGPERFORMED BY: Omnireliant[address] [id number] BY: [place] 3538170 [facility] [id number] Monocytes (Bld) [#/Vol] 0.4 10*3/uL Normal 0.1-0.9 [facility]; [facility] Work Phone: Monocytes/100 WBC (Bld) 5 % Normal [facility] Work Phone: Comment on above: A courtesy copy of t his report has been sent [phone].PATIENT WAS FASTINGPERFORMED BY: [place]ireliantCindy [place] [id number] BY: Omnireliant[address] [id number] Neutrophils (Bld) [#/Vol] 3.5 {x10E3/uL} Normal 1.4-7.0 [facility] Work Phone: Comment on above: A courtesy copy of t his report has been sent [phone].PATIENT WAS FASTINGPERFORMED BY: Omnireliant[address] [id number] BY: [place] 8076070 [facility] [id number] Neutrophils (Bld) [#/Vol] 3.5 10*3/uL Normal 1.4-7.0 [facility]; [facility] Work Phone: Neutrophils/100 WBC (Bld) 44 % Normal [facility] Work Phone: Comment on above: A courtesy copy of t his report has been sent [phone].PATIENT WAS FASTINGPERFORMED BY: Omnireliant[address] [id number] BY: [place]Kim[place] 8076070 [facility] [id number] Platelets (Bld) [#/Vol] 301 {x10E3/uL} Normal 150-450 [facility] Work Phone: Comment on above: Please note refere nce interval change A courtesy copy of t his report has been sent [phone].PATIENT WAS FASTINGPERFORMED BY: Omnireliant[address] [id number] BY: OmnireliantThe Memorial Hospital of Salem CountyCvrofu[address] [place] [address] [id number] Platelets (Bld) [#/Vol] 301 10*3/uL Normal 150-450 [facility]; [facility] Work Phone: RBC (Bld) [#/Vol] 4.59 {x10E6/uL} Normal 3.77-5.28 [facility] Work Phone: Comment on above: A courtesy copy of t his report has been sent [phone].PATIENT WAS FASTINGPERFORMED BY: Omnireliant[address] [id number] BY: [place] 8076070 [facility] [id number] RBC (Bld) [#/Vol] 4.59 10*6/uL Normal 3.77-5.28 [facility]; [facility] Work Phone: WBC (Bld) [#/Vol] 8.0 {x10E3/uL} Normal 3.4-10.8 [facility] Internal Medicine Work Phone: Comment on above: A courtesy copy of t his report has been sent [phone].PATIENT WAS FASTINGPERFORMED BY: Omnireliant[address] [id number] BY: [place] 8076070 [facility] [id number] WBC (Bld) [#/Vol] 8.0 10*3/uL Normal 3.4-10.8 [facility]; [facility] Work Phone: LIPOPROTEIN, BLD, BY NMR ([id number] 212)Ordered By: Gas Fitter on 11-10-2018 Cholesterol [Mass/Vol] 137 mg/dL Normal 100-199 [facility] Work Phone: Comment on above: A courtesy copy of t his report has been sent [phone].PATIENT WAS FASTINGPERFORMED BY: [employer] [place] [address] [id number] BY: [facility]70 [facility] [id number] Information: FX DR. GARRETT Lipoprotein.alpha [Moles/Vol] 30.0 umol/L Abnormal [facility] Work Phone: Comment on above: A courtesy copy of t his report has been sent [phone].PATIENT WAS FASTINGPERFORMED BY: [employer]1447 [facility] [id number] BY: Observe[employer]6370 [facility] [id number] Information: FX DR. GARRETT Lipoprotein.beta.subp article [Entitic length] 20.0 nm Abnormal [facility] Work Phone: Comment on above: INTERPRETATIVE INFORMATION PARTICLE CONCENTRATION AND SIZE <--Lower CVD Risk Higher CVD Risk--> LDL AND HDL PARTICLES Percentile in Reference Population HDL-P (total) High 75th 50th 25th Low >34.9 34.9 30.5 26.7 <26.7 . Small LDL-P Low 25th 50th 75th High <117 117 527 839 >839 . LDL Size <-Large (Pattern A)-> <-Small (Pattern B)-> 23.0 20.6 20.5 19.0 Small LDL-P and LDL Size are associated with CVD risk, but not afterLDL-P is taken into account. .These assays were developed and their performance characteristicsdetermined by [employer]. These assays have not been cleared by [place] Food and Drug Administration. The clinical utility of theselaboratory values have not been fully established. A courtesy copy of t his report has been sent [phone].PATIENT WAS FASTINGPERFORMED BY: Sunglass[address] [id number] BY: [employer] [place] [address] [id number] Information: FX DR. GARRETT Lipoprotein.beta.subp article [Moles/Vol] 828 nmol/L Normal Comprehensiv e Internal Medicine Work Phone: Comment on above: Low < 1000 Moderate 1000 - 1299 Borderline-High 1300 - 1599 High 1600 - 2000 Very High > 2000 A courtesy copy of t his report has been sent [phone].PATIENT WAS FASTINGPERFORMED BY: Sunglass[address] [id number] BY: [employer] Tnkusi8873 [facility] [id number] Information: FX DR. GARRETT Lipoprotein.beta.subp article.small [Moles/Vol] 583 nmol/L Abnormal [facility] Work Phone: Comment on above: A courtesy copy of t his report has been sent [phone].PATIENT WAS FASTINGPERFORMED BY: Sunglass[address] [id number] BY: Omnireliant Tspfee8090 [facility] [id number] Information: FX DR. GARRETT Triglyceride [Mass/Vol] 205 mg/dL Abnormal 0-149 [facility] Work Phone: Comment on above: A courtesy copy of t his report has been sent [phone].PATIENT WAS FASTINGPERFORMED BY: Omnireliant[address] [id number] BY: Omnireliant Nphlyz3961 [facility] [id number] Information: FX DR. GARRETT LIPOPROTEIN, BLD, BY NMR (77015) 37 mg/dL Abnormal [facility] Work Phone: Comment on above: A courtesy copy of t his report has been sent [phone].PATIENT WAS FASTINGPERFORMED BY: [employer] [address] [id number] BY: Omnireliant Fkdqjh0470 [facility] [id number] Information: FX DR. GARRETT LIPOPROTEIN, BLD, BY NMR (45928) 59 mg/dL Normal 0-99 [facility] Work Phone: Comment on above: . Optimal < 100 Abov e optimal 100 - 129 Borderline 130 - 159 High 160 - 189 Very high > 189 .LDL-C is inaccurate if patient is non-fasting. A courtesy copy of t his report has been sent [phone].PATIENT WAS FASTINGPERFORMED BY: [employer] [address] [id number] BY: OmnireliantThe Memorial Hospital of Salem CountyHcqoug4729 [facility] [id number] Information: FX DR. GARRETT LIPOPROTEIN, BLD, BY NMR (46505) 205 mg/dL Abnormal 0-149 [facility]; [facility] Work Phone: LIPOPROTEIN, BLD, BY NMR (38039) 137 mg/dL Normal 100-199 [facility]; [facility] Work Phone: METABOLIC PANEL, COMPREHENSI VE (17517)Ordered By: Gas Fitter on 11-10-2018 Albumin [Mass/Vol] 4.5 g/dL Normal 3.5-4.8 [facility] Internal Medicine Work Phone: Comment on above: A courtesy copy of t his report has been sent [phone].PATIENT WAS FASTINGPERFORMED BY: Omnireliant[address] [id number] BY: [place]antKim[place] 8076070 [facility] [id number] Albumin/Globulin [Mass ratio] 1.9 {ratio} Normal 1.2-2.2 [facility] Work Phone: Comment on above: A courtesy copy of t his report has been sent [phone].PATIENT WAS FASTINGPERFORMED BY: [employer] [address] [id number] BY: [place]antKim[place] 8076070 [facility] [id number] ALP [Catalytic activity/Vol] 72 [iU]/L Normal 39-117 [facility] Work Phone: Comment on above: A courtesy copy of t his report has been sent [phone].PATIENT WAS FASTINGPERFORMED BY: [employer] [address] [id number] BY: [place] 8076070 [facility] [id number] ALP [Catalytic activity/Vol] 72 U/L Normal 39-117 [facility]; [facility] Work Phone: ALT [Catalytic activity/Vol] 23 [iU]/L Normal 0-32 [facility] Work Phone: Comment on above: A courtesy copy of t his report has been sent [phone].PATIENT WAS FASTINGPERFORMED BY: Omnireliant[address] [id number] BY: [place] 8076070 [facility] [id number] ALT [Catalytic activity/Vol] 23 U/L Normal 0-32 [facility]; [facility] Work Phone: AST [Catalytic activity/Vol] 20 [iU]/L Normal 0-40 [facility] Internal Medicine Work Phone: Comment on above: A courtesy copy of t his report has been sent [phone].PATIENT WAS FASTINGPERFORMED BY: Omnireliant[address] [id number] BY: Omnireliant Fxnmvy2032 [facility] [id number] AST [Catalytic activity/Vol] 20 U/L Normal 0-40 [facility] Internal Medicine; [facility] Internal Medicine Work Phone: Bilirubin [Mass/Vol] 0.4 mg/dL Normal 0.0-1.2 [facility] Work Phone: Comment on above: A courtesy copy of t his report has been sent [phone].PATIENT WAS FASTINGPERFORMED BY: [employer] [address] [id number] BY: Omnireliant Ynbgxa4280 [facility] [id number] Calcium [Mass/Vol] 9.7 mg/dL Normal 8.7-10.3 [facility] Internal Medicine Work Phone: Comment on above: A courtesy copy of t his report has been sent [phone].PATIENT WAS FASTINGPERFORMED BY: Omnireliant Cgsnkozueu[address] [id number] BY: Omn[employer]ant Uqucef4328 [facility] [id number] Chloride [Moles/Vol] 104 mmol/L Normal 96-106 [facility] Work Phone: Comment on above: A courtesy copy of t his report has been sent [phone].PATIENT WAS FASTINGPERFORMED BY: Omnireliant[address] [id number] BY: Omn[employer]ant Wvzjux5074 [facility] [id number] CO2 [Moles/Vol] 23 mmol/L Normal 20-29 [facility] Internal Medicine Work Phone: Comment on above: A courtesy copy of t his report has been sent [phone].PATIENT WAS FASTINGPERFORMED BY: Sunglass[address] [id number] BY: [employer]70 [facility] [id number] Creatinine [Mass/Vol] 0.72 mg/dL Normal 0.57-1.00 [facility] Work Phone: Comment on above: A courtesy copy of t his report has been sent [phone].PATIENT WAS FASTINGPERFORMED BY: Sunglass[address] [id number] BY: [employer]70 [facility] [id number] GFR/1.73 sq M predicted among blacks CKD-EPI (S/P/Bld) [Vol rate/Area] 97 mL/min/1.73 Normal [facility] Internal Medicine Work Phone: Comment on above: A courtesy copy of t his report has been sent [phone].PATIENT WAS FASTINGPERFORMED BY: Sunglass[address] [id number] BY: [employer]70 [facility] [id number] GFR/1.73 sq M predicted among non-blacks CKD-EPI (S/P/Bld) [Vol rate/Area] 84 mL/min/1.73 Normal [facility] Internal Medicine Work Phone: Comment on above: A courtesy copy of t his report has been sent [phone].PATIENT WAS FASTINGPERFORMED BY: [employer] [address] [id number] BY: [employer] Mobile Technologieslin6370 [facility] [id number] Globulin (S) [Mass/Vol] 2.4 g/dL Normal 1.5-4.5 [facility] Internal Medicine Work Phone: Comment on above: A courtesy copy of t his report has been sent [phone].PATIENT WAS FASTINGPERFORMED BY: Omnireliant[address] [id number] BY: O[employer]ant Zxujvl4028 [facility] [id number] Glucose [Mass/Vol] 93 mg/dL Normal 65-99 [facility] Internal Medicine Work Phone: Comment on above: A courtesy copy of t his report has been sent [phone].PATIENT WAS FASTINGPERFORMED BY: [employer] [address] [id number] BY: [employer]70 [facility] [id number] Potassium [Moles/Vol] 4.6 mmol/L Normal 3.5-5.2 [facility] Internal Medicine Work Phone: Comment on above: A courtesy copy of t his report has been sent [phone].PATIENT WAS FASTINGPERFORMED BY: Omnireliant[address] [id number] BY: Omnireliant Alvxso7048 [facility] [id number] Protein [Mass/Vol] 6.9 g/dL Normal 6.0-8.5 [facility] Internal Medicine Work Phone: Comment on above: A courtesy copy of t his report has been sent [phone].PATIENT WAS FASTINGPERFORMED BY: Omnireliant[address] [id number] BY: [place]Kim[place] 8076070 [facility] [id number] Sodium [Moles/Vol] 142 mmol/L Normal 134-144 [facility] Internal Medicine Work Phone: Comment on above: A courtesy copy of t his report has been sent [phone].PATIENT WAS FASTINGPERFORMED BY: Omnireliant[address] [id number] BY: [place]Kim[place] 8076070 [facility] [id number] Urea nitrogen [Mass/Vol] 15 mg/dL Normal 8-27 [facility] Work Phone: Comment on above: A courtesy copy of t his report has been sent [phone].PATIENT WAS FASTINGPERFORMED BY: [employer] [address] [id number] BY: Omnireliant Qgccru9958 [facility] [id number] Urea nitrogen/Creatinine [Mass ratio] 21 mg/mg Normal 12- [facility] Work Phone: Comment on above: A courtesy copy of t his report has been sent [phone].PATIENT WAS FASTINGPERFORMED BY: Nudge [address] [id number] BY: [place]Kim[place] 8076070 [facility] [id number] MICROALBUMINOrdered By: Syst em Chip Separator on 11-10-2018 Albumin DL <= 20 mg/L (U) [Mass/Vol] 12.2 ug/mL Normal [facility] Work Phone: Comment on above: A courtesy copy of t his report has been sent [phone].PATIENT WAS FASTINGPERFORMED BY: Omnireliant[address] [id number] BY: OmnireliantThe Memorial Hospital of Salem CountyHsylnd9492 [facility] [id number] Albumin/Creatinine (U) [Mass ratio] 51.0 {mg/g_creat} Abnormal 0.0-30.0 [facility] Work Phone: Comment on above: Normal: 0.0 - 30.0 A lbuminuria: 31.0 - 300.0 Clinical albuminuria: >300.0 A courtesy copy of t his report has been sent [phone].PATIENT WAS FASTINGPERFORMED BY: Twenga Ucydwuntxg[address] [id number] BY: OmnireliantNew Mexico Behavioral Health Institute at Las VegasZwhpzc6921 [facility] [id number] Creatinine (U) [Mass/Vol] 23.9 mg/dL Normal [facility] Work Phone: Comment on above: A courtesy copy of t his report has been sent [phone].PATIENT WAS FASTINGPERFORMED BY: Sunglass[address] [id number] BY: Omnireliant Dwulmn3686 [facility] [id number] TSH ([id number])Ordered By: [employer] Chip Separator on 11-10-2018 TSH Qn 1.830 {uIU/mL} Normal 0.450-4.50 0 [facility] Work Phone: Comment on above: A courtesy copy of t his report has been sent [phone].PATIENT WAS FASTINGPERFORMED BY: [employer] [address] [id number] BY: OmnireliantNew Mexico Behavioral Health Institute at Las VegasIovqyk7060 [facility] [id number] URINALYSIS, W/ MICRO ([id number]) Ordered By: Gas Fitter on 11-10-2018 Appearance (U) Clear Normal Comprehens [facility] Internal Medicine Work Phone: Comment on above: A courtesy copy of t his report has been sent [phone].PATIENT WAS FASTINGPERFORMED BY: Omnireliant Tkvzskquqb[address] [id number] BY: OmnireliantThe Memorial Hospital of Salem CountyDfijpa1140 [facility] [id number] Bilirubin Ql (U) Negative Normal Comprehe nsive Internal Medicine Work Phone: Comment on above: A courtesy copy of t his report has been sent [phone].PATIENT WAS FASTINGPERFORMED BY: [employer] [id number] BY: [place] 7062870 [facility] [id number] Bilirubin Ql (U) Negative Normal Comprehe nsive Internal Medicine; [facility] Work Phone: Color (U) Yellow Normal [facility] Work Phone: Comment on above: A courtesy copy of t his report has been sent [phone].PATIENT WAS FASTINGPERFORMED BY: Roambi[address] [id number] BY: [place] 7062870 [facility] [id number] Glucose Ql (U) Negative Normal Comprehens [facility] Internal Medicine Work Phone: Comment on above: A courtesy copy of t his report has been sent [phone].PATIENT WAS FASTINGPERFORMED BY: Omnireliant Rfdvyzsdba9023[address] [id number] BY: [place] [id number] [facility] [id number] Glucose Ql (U) Negative Normal [facility]; [facility] Work Phone: Hemoglobin Ql (U) Negative Normal Compre[facility] Work Phone: Comment on above: A courtesy copy of t his report has been sent [phone].PATIENT WAS FASTINGPERFORMED BY: Omnireliant[address] [id number] BY: [place] [id number] [facility] [id number] Hemoglobin Ql (U) Negative Normal [facility]; [facility] Work Phone: Ketones Ql (U) Negative Normal [facility] Work Phone: Comment on above: A courtesy copy of t his report has been sent [phone].PATIENT WAS FASTINGPERFORMED BY: Roambi[address] [id number] BY: OmnireliantThe Memorial Hospital of Salem CountyWaujdy3473 [facility] [id number] Ketones Ql (U) Negative Normal [facility]; [facility] Work Phone: Leukocyte esterase Test strip Ql (U) 3+ Abnormal [facility] Work Phone: Comment on above: A courtesy copy of t his report has been sent [phone].PATIENT WAS FASTINGPERFORMED BY: Omnireliant S[address] [id number] BY: OmnireliantKimberly Ville [id number] [facility] [id number] Microscopic observation LM Nom (Urine sed) See below: Normal [facility] Work Phone: Comment on above: Microscopic was calli cated and was performed. A courtesy copy of t his report has been sent [phone].PATIENT WAS FASTINGPERFORMED BY: Sunglass[address] [id number] BY: OmnireliantKimberly Ville [id number] [facility] [id number] Nitrite Ql (U) Negative Normal [facility] Work Phone: Comment on above: A courtesy copy of t his report has been sent [phone].PATIENT WAS FASTINGPERFORMED BY: Sunglass[address] [id number] BY: [place]mnireliantKimberly Ville [id number] [facility] [id number] Nitrite Ql (U) Negative Normal [facility]; [facility] Work Phone: pH (U) 6.5 [pH] Normal 5.0-7.5 [facility] Work Phone: Comment on above: A courtesy copy of t his report has been sent [phone].PATIENT WAS FASTINGPERFORMED BY: Intellitactics[address] [id number] BY: ObserveIT6370 [facility] [id number] Protein Ql (U) Negative Normal [facility] Work Phone: Comment on above: A courtesy copy of t his report has been sent [phone].PATIENT WAS FASTINGPERFORMED BY: Sunglass[address] [id number] BY: [employer]70 [facility] [id number] Protein Ql (U) Negative Normal [facility]; [facility] Work Phone: Specific gravity (U) [Rel density] 1.007 1 Normal 1.005-1.03 0 [facility] Work Phone: Comment on above: A courtesy copy of t his report has been sent [phone].PATIENT WAS FASTINGPERFORMED BY: Sunglass[address] [id number] BY: [email or web address] [facility] [id number] Urobilinogen (U) [Mass/Vol] 0.2 mg/dL Normal 0.2-1.0 [facility]; [facility] Work Phone: Urobilinogen Test strip (U) [Mass/Vol] 0.2 mg/dL Normal 0.2-1.0 [facility] Work Phone: Comment on above: A courtesy copy of t his report has been sent [phone].PATIENT WAS FASTINGPERFORMED BY: Sunglass[address] [id number] BY: ObserveIT6370 [facility] [id number] Blood Glucose , Office ([phone])Ordered By: Santos Child on 06-29-2018 Glucose Glucometer (BldC) [Moles/Vol] 96 1 Normal [facility] Work Phone: HgA1C , Office ([phone])Ordere d By: Santos Child on 06-29-2018 HbA1c (Bld) [Mass fraction] 5.8 % Normal 4.6 - 7.1 [facility] Work Phone: CBC With Differential/Platel etOrdered By: Gas Fitter on 03-20-2018 Basophils Auto #/vol (Bld) 0.0 {x10E3/uL} Normal 0.0-0.2 [facility] Work Phone: Basophils/100 WBC Auto (Bld) 0 % Normal [facility] Work Phone: Eosinophils Auto #/vol (Bld) 0.3 {x10E3/uL} Normal 0.0-0.4 [facility] Work Phone: Eosinophils/100 WBC Auto (Bld) 4 % Normal [facility] Work Phone: Erythrocyte distribution width Auto Ratio (RBC) 13.0 % Normal 12.3-15.4 [facility] Work Phone: Hematocrit Auto Volume Fraction (Bld) 41.4 % Normal 34.0-46.6 [facility] Work Phone: Hemoglobin mass conc (Bld) 13.9 g/dL Normal 11.1-15.9 [facility] Work Phone: Immature granulocytes #/vol (Bld) 0.0 {x10E3/uL} Normal 0.0-0.1 [facility] Work Phone: Immature granulocytes/100 WBC (Bld) 0 % Normal [facility] Work Phone: Lymphocytes Auto #/vol (Bld) 3.3 {x10E3/uL} Abnormal 0.7-3.1 [facility] Work Phone: Lymphocytes/100 WBC Auto (Bld) 44 % Normal [facility] Work Phone: MCH Auto Entitic mass (RBC) 29.8 pg Normal 26.6-33.0 [facility] Work Phone: MCHC Auto mass conc (RBC) 33.6 g/dL Normal 31.5-35.7 [facility] Work Phone: MCV Auto Entitic volume (RBC) 89 fL Normal 79-97 [facility] Work Phone: Monocytes Auto #/vol (Bld) 0.4 {x10E3/uL} Normal 0.1-0.9 [facility] Work Phone: Monocytes/100 WBC Auto (Bld) 5 % Normal [facility] Work Phone: Neutrophils Auto #/vol (Bld) 3.6 {x10E3/uL} Normal 1.4-7.0 [facility] Work Phone: Neutrophils/100 WBC Auto (Bld) 47 % Normal [facility] Work Phone: Platelets Auto #/vol (Bld) 276 {x10E3/uL} Normal 150-379 [facility] Work Phone: RBC Auto #/vol (Bld) 4.66 {x10E6/uL} Normal 3.77-5.28 [facility] Work Phone: WBC Auto #/vol (Bld) 7.6 {x10E3/uL} Normal 3.4-10.8 [facility] Work Phone: Comp. Metabolic Panel (14)Or dered By: Gas Fitter on 03-20-2018 Albumin mass conc 4.3 g/dL Normal 3.5-4.[address] [facility] Internal [facility] Work Phone: Albumin/Globulin mass ratio 1.5 {ratio} Normal 1.2-2.2 [facility] Work Phone: ALP enzyme act/vol 80 [iU]/L Normal 39-117 [facility] Work Phone: ALT enzyme act/vol 23 [iU]/L Normal 0-32 [facility] Work Phone: AST enzyme act/vol 23 [iU]/L Normal 0-40 [facility] Work Phone: Bilirubin mass conc 0.6 mg/dL Normal 0.0-1.2 [facility] Work Phone: Calcium mass conc 9.7 mg/dL Normal 8.7-10.3 [facility]pre[facility] Work Phone: Chloride molar conc 102 mmol/L Normal 96-106 Compr ehens[facility] Work Phone: CO2 molar conc 23 mmol/L Normal 20-29 [facility] Work Phone: Creatinine mass conc 0.81 mg/dL Normal 0.57-1.00 Comp rehens[facility] Work Phone: GFR/1.73 sq M predicted among blacks CKD-EPI vol rate/area (S/P/Bld) 85 mL/min/1.73 Normal Comprehensiv e [facility] Work Phone: GFR/1.73 sq M predicted among non-blacks CKD-EPI vol rate/area (S/P/Bld) 73 mL/min/1.73 Normal [facility] Work Phone: Globulin Calculated mass conc (S) 2.8 g/dL Normal 1.5-4.5 [facility] Work Phone: Glucose mass conc 103 mg/dL Abnormal 65-99 [facility] Work Phone: Potassium molar conc 4.7 mmol/L Normal 3.5-5.2 Comp rehensive [facility] Work Phone: Protein mass conc 7.1 g/dL Normal 6.0-8.5 [facility] Work Phone: Sodium molar conc 142 mmol/L Normal 134-144 [facility] Work Phone: Urea nitrogen mass conc 13 mg/dL Normal 8-27 [facility] Work Phone: Urea nitrogen/Creatinine mass ratio 16 mg/mg Normal 12-28 [facility] Work Phone: MICROALBUMINOrdered By: Syst em Chip Separator on 03-20-2018 Albumin DL <= 20 mg/L mass conc (U) 27.3 ug/mL Normal [facility] Work Phone: Comment on above: PATIENT WAS FASTINGP ERFORMED BY: Nudge [address] [id number] BY: OmnireliantThe Memorial Hospital of Salem CountyYamlye7833 [facility] [id number] Albumin/Creatinine mass ratio (U) 70.2 {mg/g_creat} Abnormal 0.0-30.0 [facility] Work Phone: Comment on above: Normal: 0.0 - 30.0 A lbuminuria: 31.0 - 300.0 Clinical albuminuria: >300.0 PATIENT WAS FASTINGP ERFORMED BY: Nudge [address] [id number] BY: eyeSight Mobile Technologieslin6370 [facility] [id number] Creatinine mass conc (U) 38.9 mg/dL Normal [facility] Work Phone: Comment on above: PATIENT WAS FASTINGP ERFORMED BY: Nudge [address] [id number] BY: Direct Media TechnologiesKimberly Ville [id number] [facility] [id number] Microscopic ExaminationOrder ed By: Gas Fitter on 03-20-2018 Bacteria LM.HPF #/area (Urine sed) Few Normal [facility] Work Phone: Epithelial cells LM.HPF #/area (Urine sed) 0-10 Normal 0 - 10 [facility] Work Phone: RBC LM.HPF #/area (Urine sed) None seen Normal 0 - 2 [facility] Work Phone: WBC LM.HPF #/area (Urine sed) 0-5 Normal 0 - 5 [facility] Work Phone: NMR LipoProfileOrdered By: Efrain letem Chip Separator on 03-20-2018 Cholesterol in HDL mass conc 35 mg/dL Abnormal [facility] Work Phone: Cholesterol in LDL mass conc 54 mg/dL Normal 0-99 [facility] Work Phone: Comment on above: . Optimal < 100 Abov e optimal 100 - 129 Borderline 130 - 159 High 160 - 189 Very high > 189 .LDL-C is inaccurate if patient is non-fasting. Cholesterol mass conc 127 mg/dL Normal 100-199 Com prehensive [facility] Work Phone: Lipoprotein.alpha molar conc 27.3 umol/L Abnormal [facility] Work Phone: Lipoprotein.beta.subp article Entitic length 20.0 nm Normal [facility] Work Phone: Comment on above: INTERPRETATIVE INFORMATION PARTICLE CONCENTRATION AND SIZE <--Lower CVD Risk Higher CVD Risk--> LDL AND HDL PARTICLES Percentile in Reference Population HDL-P (total) High 75th 50th 25th Low >34.9 34.9 30.5 26.7 <26.7 . Small LDL-P Low 25th 50th 75th High <117 117 527 839 >839 . LDL Size <-Large (Pattern A)-> <-Small (Pattern B)-> 23.0 20.6 20.5 19.0 Small LDL-P and LDL Size are associated with CVD risk, but not afterLDL-P is taken into account. .These assays were developed and their performance characteristicsdetermined by [employer]. These assays have not been cleared by [place] Food and Drug Administration. The clinical utility of theselaboratory values have not been fully established. Lipoprotein.beta.subp article molar conc 856 nmol/L Normal [facility] Work Phone: Comment on above: Low < 1000 Moderate 1000 - 1299 Borderline-High 1300 - 1599 High 1600 - 2000 Very High > 2000 Lipoprotein.beta.subp article.small molar conc 566 nmol/L Abnormal [facility] Work Phone: Triglyceride mass conc 192 mg/dL Abnormal 0-149 [facility] Work Phone: TSHOrdered By: System Manage r on 03-20-2018 Thyrotropin Qn 1.960 {uIU/mL} Normal 0.450-4.50 0 [facility] Work Phone: URINALYSIS, W/ MICRO ([id number]) Ordered By: Gas Fitter on 03-20-2018 Appearance Nom (U) Clear Normal Compre hensive [facility] Work Phone: Comment on above: PATIENT WAS FASTINGP ERFORMED BY: [employer] [address] [id number] BY: DEMETRIUS LabLP33.TV Zcrrob3951 Vargas RoadDublin [place] [id number] Bilirubin Ql (U) Negative Normal Comprehe nsive [facility] Work Phone: Comment on above: PATIENT WAS FASTINGP ERFORMED BY: [employer] [address] [id number] BY: LabLP33.TVrp Cfirci5014 Vargas RoadDublin [place] [id number] Bilirubin Ql (U) Negative Normal Comprehe nsive [facility]; [facility] Work Phone: Color Nom (U) Yellow Normal Comprehensi ve [facility] Medicine Work Phone: Comment on above: PATIENT WAS FASTINGP ERFORMED BY: Intellitactics[address] [id number] BY: LabLP33.TVrp Lxuspi0729 Vargas RoadDublin [place] [id number] Glucose Ql (U) Negative Normal [facility] Work Phone: Comment on above: PATIENT WAS FASTINGP ERFORMED BY: Intellitactics[address] [id number] BY: [facility] Bsriki8034 Vargas RoadDublin [place] [id number] Glucose Ql (U) Negative Normal [facility]; [facility] Work Phone: Hemoglobin Ql (U) Negative Normal Compreh ensive [facility] Work Phone: Comment on above: PATIENT WAS FASTINGP ERFORMED BY: Omnireliant[address] [id number] BY: DEMETRIUS [facility] Hbhljb4204 Varg[address] RoadDublin [place] [id number] Hemoglobin Ql (U) Negative Normal Compreh ensive [facility]; [facility] Work Phone: Hemoglobin Test strip Ql (U) Negative Normal [facility] Work Phone: Ketones Ql (U) Negative Normal [facility] Work Phone: Comment on above: PATIENT WAS FASTINGP ERFORMED BY: Omnireliant[address] [id number] BY: [facility] Mtipti7937 Varg[address] RoadDublin [place] [id number] Ketones Ql (U) Negative Normal [facility]; [facility] Work Phone: Leukocyte esterase Test strip Ql (U) 1+ Abnormal [facility] Work Phone: Comment on above: PATIENT WAS FASTINGP ERFORMED BY: Omnireliant[address] [id number] BY: DEMETRIUS [facility] Hzzfmw7829 Vargas RoadDublin [place] [id number] Microscopic observation LM Nom (Urine sed) See below: Normal [facility] Work Phone: Comment on above: Microscopic was calli cated and was performed. PATIENT WAS FASTINGP ERFORMED BY: Omnireliant[address] [id number] BY: DEMETRIUS [facility] Ebpbrn4799 Vargas RoadDublin [place] [id number] Nitrite Ql (U) Negative Normal [facility] Work Phone: Comment on above: PATIENT WAS FASTINGP ERFORMED BY: Omnireliant[address] [id number] BY: DEMETRIUS [facility] Tdmbao9864 Varg[address] RoadDublin [place] [id number] Nitrite Ql (U) Negative Normal [facility]; [facility] Work Phone: Nitrite Test strip Ql (U) Negative Normal [facility] Work Phone: pH (U) 6.5 [pH] Normal 5.0-7.5 [facility] Work Phone: Comment on above: PATIENT WAS FASTINGP ERFORMED BY: Sunglass[address] [id number] BY: [employer] CultureIQNovant Health [facility] Center [id number] pH Test strip (U) 6.5 [pH] Normal 5.0-7.5 Compreh ensive [facility] Work Phone: Protein Ql (U) Negative Normal [facility] Work Phone: Comment on above: PATIENT WAS FASTINGP ERFORMED BY: Nudge [address] [id number] BY: [employer] Xodtlv9648 LoraxAgAtrium Health Harrisburg [id number] Protein Ql (U) Negative Normal [facility]; [facility] Work Phone: Protein Test strip Ql (U) Negative Normal [facility] Work Phone: Specific gravity Relative Density (U) 1.012 1 Normal 1.005-1.03 0 [facility] Work Phone: Comment on above: PATIENT WAS FASTINGP ERFORMED BY: [employer] [address] [id number] BY: xCloud6[address] CultureIQNovant Health [facility] [id number] Urobilinogen (U) [Mass/Vol] 0.2 mg/dL Normal 0.2-1.0 [facility]; [facility] Work Phone: Urobilinogen Test strip mass conc (U) 0.2 mg/dL Normal 0.2-1.0 Comprehensiv e [facility] Medicine Work Phone: Comment on above: PATIENT WAS FASTINGP ERFORMED BY: CLARA [facility] Bxvpxeptdy6005 [facility] [id number] BY: DEMETRIUS [facility] Niudiy6154 Alicia [facility] [id number] Vitamin D, 25-HydroxyOrdered By: Gas Fitter on 03-20-2018 25-Hydroxyvitamin D2+25-Hydroxyvitamin D3 mass conc 72.2 ng/mL Normal 30.0-100.0 [facility] Work Phone: Comment on above: Vitamin D deficiency has been defined by the [place] ofMedicine and an Endocrine Society practice guideline as alevel of serum 25-OH vitamin D less than 20 ng/mL (1,2).The Endocrine Society went on to further define vitamin Dinsufficiency as a level between 21 and 29 ng/mL (2).1. IOM ([place] of Medicine). 2010. Dietary reference intakes for calcium and D. [place]: The National Academies Press.2. Néstor MF, Jorge IVY, Justus ZHOU, et al. Evaluation, treatment, and prevention of vitamin D deficiency: an Endocrine Society clinical practice guideline. JCEM. 2010; 96(7):1911-30. Blood Glucose , Office ([phone] 2)Ordered By: Santos Child on 02-13-2018 Glucose Glucometer molar conc (BldC) 107 1 Normal [facility] Work Phone: HgA1C , Office ([id number])Ordere d By: Santos Cihld on 02-13-2018 Hemoglobin A1c/Hemoglobin.total mass fraction (Bld) 5.6 % Normal 4.6 - 7.1 Comprehensiv e [facility] Medicine Work Phone: CBC-Complete Blood Cnt No Di ffOrdered By: Gas Fitter on 01-08-2018 CBC-Complete Blood Cnt No Diff 4.05 {M/mm3} Abnormal 4.2-5.4 [facility] Work Phone: CBC-Complete Blood Cnt No Diff 41.6 fL Normal 35.1-43.9 [facility] Work Phone: CBC-Complete Blood Cnt No Diff 12.6 % Normal 11.6-14.6 [facility] Work Phone: CBC-Complete Blood Cnt No Diff 34.5 {g/gl} Normal 32-36 [facility] Work Phone: CBC-Complete Blood Cnt No Diff 31.6 pg Normal 27.0-32.0 [facility] Work Phone: CBC-Complete Blood Cnt No Diff 91.6 fL Normal 81-99 [facility] Work Phone: CBC-Complete Blood Cnt No Diff 37.1 % Normal 37-47 [facility] Work Phone: CBC-Complete Blood Cnt No Diff 12.8 g/dL Normal 12.0-15.0 [facility] Work Phone: CBC-Complete Blood Cnt No Diff 232 K/mm3 Normal 150-450 [facility] Work Phone: CBC-Complete Blood Cnt No Diff 7.2 K/mm3 Normal 4.4-11.0 [facility] Work Phone: CBC-Complete Blood Cnt No Diff 8.9 fL Normal 6.2-12.0 [facility] Work Phone: Comprehensive Metabolic Prof ilOrdered By: Gas Fitter on 01-08-2018 Comprehensive metabolic 2000 panel 0.50 mg/dL Normal 0.20-1.00 Comprehensi ve Internal Medicine Work Phone: Comprehensive metabolic 2000 panel 4.0 mmol/L Normal 3.5-5.1 Comprehensi ve [facility] Work Phone: Comprehensive metabolic 2000 panel 7 1 Normal 5-15 Comprehensi ve [facility] Work Phone: Comprehensive metabolic 2000 panel 76 mL/min Normal Comprehensi ve [facility] Work Phone: Comment on above: Non- GFR Calc Comprehensive metabolic 2000 panel 141 mmol/L Normal 136-145 Comprehensi ve [facility] Work Phone: Comprehensive metabolic 2000 panel 20.1 {RATIO} Abnormal 10-20 Comprehensi ve [facility] Work Phone: Comprehensive metabolic 2000 panel 6.7 g/dL Normal 6.4-8.2 Comprehensi ve [facility] Work Phone: Comprehensive metabolic 2000 panel 97 mg/dL Normal 74-106 Comprehensi ve [facility] Work Phone: Comment on above: Please note revised GLUCOSE reference range [id number]/02/2018. Comprehensive metabolic 2000 panel 16 mg/dL Normal 7-18 Comprehensi ve [facility] Work Phone: Comprehensive metabolic 2000 panel 3.4 g/dL Normal 3.2-5.0 Comprehensi ve [facility] Work Phone: Comprehensive metabolic 2000 panel 0.80 mg/dL Normal 0.55-1.02 Comprehensi ve [facility] Work Phone: Comment on above: The validity of the calculated GFR AND GFRAA in patients over70 years has not been determined. Clinical correlation isessential. Comprehensive metabolic 2000 panel 3.3 g/dL Normal 2.2-4.2 Comprehensi ve [facility] Work Phone: Comprehensive metabolic 2000 panel 1.0 {RATIO} Normal 0.9-2.4 Comprehensi ve [facility] Work Phone: Comprehensive metabolic 2000 panel 8.6 mg/dL Normal 8.5-10.1 Comprehensi ve [facility] Work Phone: Comprehensive metabolic 2000 panel 91 mL/min Normal Comprehensi ve [facility] Work Phone: Comment on above: GFR Calc Comprehensive metabolic 2000 panel 48.67 ml/min Normal Comprehensi ve [facility] Work Phone: Comprehensive metabolic 2000 panel 107 mmol/L Normal 98-107 Comprehensi ve [facility] Work Phone: Comprehensive metabolic 2000 panel 27.0 mmol/L Normal 21.0-32.0 Comprehensi ve [facility] Work Phone: Comprehensive metabolic 2000 panel 28 U/L Normal 15-37 Comprehensi ve [facility] Work Phone: Comprehensive metabolic 2000 panel 57 U/L Normal 45-117 Comprehensi ve [facility] Work Phone: Comprehensive metabolic 2000 panel 36 U/L Normal 13-56 Comprehensi ve [facility] Work Phone: Lipid ProfileOrdered By: Sys tem Chip Separator on 01-08-2018 Lipid Profile 57 mg/dL Abnormal 5-40 Comprehensi ve [facility] Work Phone: Lipid Profile 73 mg/dL Normal 0-130 Comprehensi ve [facility] Work Phone: Lipid Profile 32 mg/dL Abnormal Comprehensi ve [facility] Work Phone: Comment on above: The drugs N-Acetylcy steine and Metamizole may falselydepress this assay. Reference Range HDL <40 mg/dL Low HDL Cholesterol HDL >or= 60 mg/dL High HDL Cholesterol Lipid Profile 283 mg/dL Abnormal Comprehensi ve Internal Medicine Work Phone: Comment on above: The drugs N-Acetylcy steine and Metamizole may falselydepress this assay.Serum Triglycerides Reference Interval Normal <150 mg/dL Borderline high 150 - 199 mg/dL High 200 - 499 mg/dL Very High > or = 500 mg/dL Lipid Profile 162 mg/dL Normal Comprehensi ve [facility] Medicine Work Phone: Comment on above: <200 mg/dL Desirable 200-240 mg/dL Borderline >240 mg/dL High Risk ACT Activated Clotting TimeO rdered By: Gas Fitter on 01-07-2018 ACT Activated Clotting Time 236 {sec} Abnormal 74-137 [facility] Work Phone: ACT Activated Clotting Time 147 {sec} Abnormal 74-137 [facility] Work Phone: M R Staph Aureus DNA by PCRO rdered By: Gas Fitter on 01-07-2018 MRSA DNA RAINA+probe Ql (Unsp spec) Negative Normal [facility] Work Phone: Basic Metabolic Profile (BMP )Ordered By: Gas Fitter on 12-18-2017 Basic metabolic 2000 panel 27.0 mmol/L Normal 21.0-32.0 [facility] Work Phone: Basic metabolic 2000 panel 0.76 mg/dL Normal 0.55-1.02 [facility] Work Phone: Comment on above: The validity of the calculated GFR AND GFRAA in patients over70 years has not been determined. Clinical correlation isessential. Basic metabolic 2000 panel 16 mg/dL Normal 7-18 [facility] Work Phone: Basic metabolic 2000 panel 100 mg/dL Normal 74-106 [facility] Work Phone: Comment on above: Fasting Glucose resu lt from 100 to 125 mg/dLsuggests IMPAIRED HOMEOSTASIS per A.D.A. criteria.Please note revised GLUCOSE reference range [id number]/02/2018. Basic metabolic 2000 panel 96 mL/min Normal [facility] Work Phone: Comment on above: GFR Calc Basic metabolic 2000 panel 37.06 ml/min Normal [facility] Work Phone: Basic metabolic 2000 panel 21.0 {RATIO} Abnormal 10-20 [facility] Work Phone: Basic metabolic 2000 panel 109 mmol/L Abnormal 98-107 [facility] Work Phone: Basic metabolic 2000 panel 4.1 mmol/L Normal 3.5-5.1 [facility] Work Phone: Basic metabolic 2000 panel 80 mL/min Normal [facility] Work Phone: Comment on above: Non- GFR Calc Basic metabolic 2000 panel 143 mmol/L Normal 136-145 [facility] Work Phone: Basic metabolic 2000 panel 8.3 mg/dL Abnormal 8.5-10.1 [facility] Work Phone: Basic metabolic 2000 panel 7 1 Normal 5-15 [facility] Work Phone: CBC-Complete Blood Cnt No Di ffOrdered By: Gas Fitter on 12-18-2017 CBC-Complete Blood Cnt No Diff 8.9 fL Normal 6.2-12.0 [facility] Work Phone: CBC-Complete Blood Cnt No Diff 266 K/mm3 Normal 150-450 [facility] Work Phone: CBC-Complete Blood Cnt No Diff 41.7 fL Normal 35.1-43.9 [facility] Work Phone: CBC-Complete Blood Cnt No Diff 12.6 % Normal 11.6-14.6 [facility] Work Phone: CBC-Complete Blood Cnt No Diff 34.2 {g/gl} Normal 32-36 [facility] Work Phone: CBC-Complete Blood Cnt No Diff 91.4 fL Normal 81-99 [facility] Work Phone: CBC-Complete Blood Cnt No Diff 37.1 % Normal 37-47 [facility] Work Phone: CBC-Complete Blood Cnt No Diff 12.7 g/dL Normal 12.0-15.0 [facility] Work Phone: CBC-Complete Blood Cnt No Diff 4.06 {M/mm3} Abnormal 4.2-5.4 [facility] Work Phone: CBC-Complete Blood Cnt No Diff 8.7 K/mm3 Normal 4.4-11.0 [facility] Work Phone: CBC-Complete Blood Cnt No Diff 31.3 pg Normal 27.0-32.0 [facility] Work Phone: ACT Activated Clotting TimeO rdered By: Gas Fitter on 12-17-2017 ACT Activated Clotting Time 153 {sec} Abnormal 74-137 [facility] Work Phone: ACT Activated Clotting Time 235 {sec} Abnormal 74-137 [facility] Work Phone: CPK Total, Creatine KinaseOr dered By: Gas Fitter on 12-17-2017 CPK Total, Creatine Kinase 49 U/L Normal 26-192 [facility] Work Phone: CPK Total, Creatine Kinase 51 U/L Normal 26-192 [facility] Work Phone: CPK Total, Creatine Kinase 48 U/L Normal 26-192 [facility] Work Phone: M R Staph Aureus DNA by PCRO rdered By: Gas Fitter on 12-17-2017 MRSA DNA RAINA+probe Ql (Unsp spec) Negative Normal [facility] Work Phone: Basic Metabolic Profile (BMP )Ordered By: Gas Fitter on 12-10-2017 Basic metabolic 2000 panel 104 mmol/L Normal 98-107 [facility] Work Phone: Basic metabolic 2000 panel 4.0 mmol/L Normal 3.5-5.1 [facility] Work Phone: Basic metabolic 2000 panel 10.0 mg/dL Normal 8.5-10.1 [facility] Work Phone: Basic metabolic 2000 panel 15.7 {RATIO} Normal 10-20 [facility] Work Phone: Basic metabolic 2000 panel 80 mL/min Normal [facility] Work Phone: Comment on above: GFR Calc Basic metabolic 2000 panel 66 mL/min Normal [facility] Work Phone: Comment on above: Non- GFR Calc Basic metabolic 2000 panel 139 mmol/L Normal 136-145 [facility] Work Phone: Basic metabolic 2000 panel 7 1 Normal 5-15 [facility] Work Phone: Basic metabolic 2000 panel 0.89 mg/dL Normal 0.55-1.02 [facility] Work Phone: Comment on above: The validity of the calculated GFR AND GFRAA in patients over70 years has not been determined. Clinical correlation isessential. Basic metabolic 2000 panel 14 mg/dL Normal 7-18 [facility] Work Phone: Basic metabolic 2000 panel 99 mg/dL Normal 74-106 [facility] Work Phone: Comment on above: Please note revised GLUCOSE reference range [id number]/02/2018. Basic metabolic 2000 panel 28.0 mmol/L Normal 21.0-32.0 [facility] Work Phone: CBC W/Diff, AutomatedOrdered By: Gas Fitter on 12-10-2017 CBC W/Diff, Automated 4.60 {M/mm3} Normal 4.2-5.4 C omprehensive [facility] Work Phone: CBC W/Diff, Automated 8.1 K/mm3 Normal 4.4-11.0 Com prehensive [facility] Work Phone: CBC W/Diff, Automated 4.3 {X10_3/uL} Normal 2.0-7.7 [facility] Work Phone: CBC W/Diff, Automated 14.1 g/dL Normal 12.0-15.0 [facility] prehensive Internal Medicine Work Phone: CBC W/Diff, Automated 3.11 {X10_3/ul} Normal 0.83-4.51 [facility] Work Phone: CBC W/Diff, Automated 41.8 % Normal 37-47 [facility] prehensive [facility] Work Phone: CBC W/Diff, Automated 0.100 % Normal 0.0-0.9 [facility] prehens[facility] Work Phone: Comment on above: IG% - Immature Granu locytes (promyelocytes, myelocytes andmetamyelocytes) > 1% indicates that a LEFT SHIFT is Present. CBC W/Diff, Automated 0.4 % Normal 0-1 [facility] prehensive [facility] Work Phone: CBC W/Diff, Automated 90.9 fL Normal 81-99 [facility] prehensive [facility] Work Phone: CBC W/Diff, Automated 30.7 pg Normal 27.0-32.0 [facility] Work Phone: CBC W/Diff, Automated 2.6 % Normal 0-5 [facility] prehens[facility] Work Phone: CBC W/Diff, Automated 4.8 % Normal 0-10 [facility] prehens[facility] Work Phone: CBC W/Diff, Automated 38.5 % Normal 19-41 [facility] prehensive [facility] Work Phone: CBC W/Diff, Automated 53.6 % Normal 47-70 [facility] prehensive [facility] Work Phone: CBC W/Diff, Automated 9.0 fL Normal 6.2-12.0 [facility] prehensive [facility] Work Phone: CBC W/Diff, Automated 252 K/mm3 Normal 150-450 [facility] prehensive [facility] Work Phone: CBC W/Diff, Automated 42.0 fL Normal 35.1-43.9 [facility] prehensive [facility] Work Phone: CBC W/Diff, Automated 12.7 % Normal 11.6-14.6 [facility] pre[facility] Work Phone: CBC W/Diff, Automated 33.7 {g/gl} Normal 32-36 Co mprehensive [facility] Work Phone: Partial Thromboplast TimeOrd ered By: Gas Fitter on 12-10-2017 aPTT Coag time (Bld) 32.8 s Normal 24.1-36.2 Comp rehensive [facility] Work Phone: Prothrombin Time w/INROrdere d By: Gas Fitter on 12-10-2017 Prothrombin Time w/INR 1.1 1 Normal [facility] Work Phone: Prothrombin Time w/INR 13.9 s Normal 11.7-14.9 [facility] Work Phone: Blood Glucose , Office ([phone])Ordered By: Daphne Millan on 10-13-2017 Glucose Glucometer molar conc (BldC) 110 1 Normal [facility] Work Phone: HgA1C , Office ([phone])Ordere d By: Santos Child on 10-13-2017 Hemoglobin A1c/Hemoglobin.total mass fraction (Bld) 5.8 % Normal 4.6 - 7.1 [facility] Work Phone: Blood Glucose , Office ([phone])Ordered By: Santos Child on 06-11-2017 Glucose Glucometer molar conc (BldC) 151 1 Normal [facility] Work Phone: HgA1C , Office ([phone])Ordere d By: Santos Child on 06-11-2017 Hemoglobin A1c/Hemoglobin.total mass fraction (Bld) 5.6 % Normal 4.6 - 7.1 [facility] Work Phone: CALCIFEDIOL ([phone])Ordered B y: Gas Fitter on 06-06-2017 25-Hydroxyvitamin D2+25-Hydroxyvitamin D3 mass conc 66.4 ng/mL Normal 30.0-100.0 [facility] Work Phone: Comment on above: Vitamin D deficiency has been defined by the [place] of[employer] and an Endocrine Society practice guideline as alevel of serum 25-OH vitamin D less than 20 ng/mL (1,2).The Endocrine Society went on to further define vitamin Dinsufficiency as a level between 21 and 29 ng/mL (2).1. IOM ([place] [employer]). 2010. Dietary reference intakes for calcium and D. [place]: The National Academies Press.2. Néstor MF, Jorge IVY, Justus ZHOU, et al. Evaluation, treatment, and prevention of vitamin D deficiency: an Endocrine Society clinical practice guideline. JCEM. 2010; 96(7):1911-30. PATIENT WAS FASTINGP ERFORMED BY: ObserveIT6370 LoraxAgAtrium Health Harrisburg [id number] CBC with auto diff ([id number])Or dered By: Gas Fitter on 06-06-2017 Basophils (Bld) [#/Vol] 0.0 {x10E3/uL} Normal 0.0-0.2 [facility] Work Phone: Comment on above: PATIENT WAS FASTINGP ERFORMED BY: PopJamNovant Health [facility] [id number] Basophils (Bld) [#/Vol] 0.0 10*3/uL Normal 0.0-0.2 [facility]; [facility] Work Phone: Basophils Auto #/vol (Bld) 0.0 {x10E3/uL} Normal 0.0-0.2 [facility] Work Phone: Basophils/100 WBC (Bld) 0 % Normal [facility] Work Phone: Comment on above: PATIENT WAS FASTINGP ERFORMED BY: [id number] [address] CultureIQNovant Health [facility] Center [id number] Basophils/100 WBC Auto (Bld) 0 % Normal [facility] Work Phone: Eosinophils (Bld) [#/Vol] 0.4 {x10E3/uL} Normal 0.0-0.4 [facility] Work Phone: Comment on above: PATIENT WAS FASTINGP ERFORMED BY: ObserveIT6370 LoraxAgAtrium Health [facility] [id number] Eosinophils (Bld) [#/Vol] 0.4 10*3/uL Normal 0.0-0.4 [facility]; [facility] Work Phone: Eosinophils Auto #/vol (Bld) 0.4 {x10E3/uL} Normal 0.0-0.4 [facility] Work Phone: Eosinophils/100 WBC (Bld) 5 % Normal [facility] Work Phone: Comment on above: PATIENT WAS FASTINGP ERFORMED BY: LabCoThe Memorial Hospital of Salem CountyUvjerk8450 [address] CultureIQNovant Health [facility] [id number] Eosinophils/100 WBC Auto (Bld) 5 % Normal [facility] Work Phone: Erythrocyte distribution width (RBC) [Ratio] 13.4 % Normal 12.3-15.4 [facility] Work Phone: Comment on above: PATIENT WAS FASTINGP ERFORMED BY: OmnireliantKimberly [place] [id number] [address] CultureIQNovant Health [facility] Center [id number] Erythrocyte distribution width Auto Ratio (RBC) 13.4 % Normal 12.3-15.4 [facility] Work Phone: Hematocrit (Bld) [Volume fraction] 40.3 % Normal 34.0-46.6 [facility] Work Phone: Comment on above: PATIENT WAS FASTINGP ERFORMED BY: OmnireliantKimberly V[place] [id number] [address] CultureIQNovant Health [facility] Center [id number] Hematocrit Auto Volume Fraction (Bld) 40.3 % Normal 34.0-46.6 [facility] Work Phone: Hemoglobin mass conc (Bld) 13.5 g/dL Normal 11.1-15.9 [facility] Work Phone: Comment on above: PATIENT WAS FASTINGP ERFORMED BY: CB LabCo Czzfpa6383 [address] CultureIQNovant Health [facility] [id number] Immature granulocytes #/vol (Bld) 0.0 {x10E3/uL} Normal 0.0-0.1 [facility] Work Phone: Comment on above: PATIENT WAS FASTINGP ERFORMED BY: LabCo Suhuak8195 [facility] [id number] Immature granulocytes (Bld) [#/Vol] 0.0 10*3/uL Normal 0.0-0.1 [facility]; [facility] Work Phone: Immature granulocytes/100 WBC (Bld) 0 % Normal [facility] Work Phone: Comment on above: PATIENT WAS FASTINGP ERFORMED BY: DEMETRIUS [place] [id number] [facility] [id number] Lymphocytes (Bld) [#/Vol] 3.9 {x10E3/uL} Abnormal 0.7-3.1 [facility] Work Phone: Comment on above: PATIENT WAS FASTINGP ERFORMED BY: DEMETRIUS [facility] Fkptex2021 [facility] [id number] Lymphocytes (Bld) [#/Vol] 3.9 10*3/uL Abnormal 0.7-3.1 [facility]; [facility] Work Phone: Lymphocytes Auto #/vol (Bld) 3.9 {x10E3/uL} Abnormal 0.7-3.1 [facility] Work Phone: Lymphocytes/100 WBC (Bld) 50 % Normal [facility] Work Phone: Comment on above: PATIENT WAS FASTINGP ERFORMED BY: DEMETRIUS RogersNeroseline KongQupdti9553 [facility] [id number] Lymphocytes/100 WBC Auto (Bld) 50 % Normal [facility] Work Phone: MCH (RBC) [Entitic mass] 30.1 pg Normal 26.6-33.0 [facility] Work Phone: Comment on above: PATIENT WAS FASTINGP ERFORMED BY: DEMETRIUS [place] [id number] [facility] [id number] MCH Auto Entitic mass (RBC) 30.1 pg Normal 26.6-33.0 [facility] Work Phone: MCHC (RBC) [Mass/Vol] 33.5 g/dL Normal 31.5-35.7 [facility] prehensive Internal Medicine Work Phone: Comment on above: PATIENT WAS FASTINGP ERFORMED BY: [facility]6370 [facility] [id number] MCHC Auto mass conc (RBC) 33.5 g/dL Normal 31.5-35.7 [facility] Work Phone: MCV (RBC) [Entitic vol] 90 fL Normal 79-97 [facility] Work Phone: Comment on above: PATIENT WAS FASTINGP ERFORMED BY: [place] [id number] [facility] [id number] MCV Auto Entitic volume (RBC) 90 fL Normal 79-97 [facility] Work Phone: Monocytes (Bld) [#/Vol] 0.4 {x10E3/uL} Normal 0.1-0.9 [facility] Work Phone: Comment on above: PATIENT WAS FASTINGP ERFORMED BY: [place] [id number] [facility] [id number] Monocytes (Bld) [#/Vol] 0.4 10*3/uL Normal 0.1-0.9 [facility]; [facility] Work Phone: Monocytes Auto #/vol (Bld) 0.4 {x10E3/uL} Normal 0.1-0.9 [facility] Work Phone: Monocytes/100 WBC (Bld) 5 % Normal [facility] Work Phone: Comment on above: PATIENT WAS FASTINGP ERFORMED BY: [facility]6370 [facility] [id number] Monocytes/100 WBC Auto (Bld) 5 % Normal [facility] Work Phone: Neutrophils (Bld) [#/Vol] 3.2 {x10E3/uL} Normal 1.4-7.0 [facility] Work Phone: Comment on above: PATIENT WAS FASTINGP ERFORMED BY: [facility]6370 [facility] [id number] Neutrophils (Bld) [#/Vol] 3.2 10*3/uL Normal 1.4-7.0 [facility]; [facility] Work Phone: Neutrophils Auto #/vol (Bld) 3.2 {x10E3/uL} Normal 1.4-7.0 [facility] Work Phone: Neutrophils/100 WBC (Bld) 40 % Normal [facility] Work Phone: Comment on above: PATIENT WAS FASTINGP ERFORMED BY: [facility]70 LoraxAgAtrium Health [facility]burg [id number] Neutrophils/100 WBC Auto (Bld) 40 % Normal [facility] Work Phone: Platelets (Bld) [#/Vol] 267 {x10E3/uL} Normal 150-379 [facility] Work Phone: Comment on above: PATIENT WAS FASTINGP ERFORMED BY: HandmarkAtrium Health [facility] [id number] Platelets (Bld) [#/Vol] 267 10*3/uL Normal 150-379 [facility]; [facility] Work Phone: Platelets Auto #/vol (Bld) 267 {x10E3/uL} Normal 150-379 [facility] Work Phone: RBC (Bld) [#/Vol] 4.49 {x10E6/uL} Normal 3.77-5.28 [facility] Internal Medicine Work Phone: Comment on above: PATIENT WAS FASTINGP ERFORMED BY: [facility]70 EDP BiotechNovant Health [facility] Medical Center [id number] RBC (Bld) [#/Vol] 4.49 10*6/uL Normal 3.77-5.28 [facility]; [facility] Work Phone: RBC Auto #/vol (Bld) 4.49 {x10E6/uL} Normal 3.77-5.28 [facility] Work Phone: WBC (Bld) [#/Vol] 7.9 {x10E3/uL} Normal 3.4-10.8 [facility] prehensive Internal Medicine Work Phone: Comment on above: PATIENT WAS FASTINGP ERFORMED BY: DEMETRIUS RoambiBen KongAycezm7404 VargasBoone Hospital Center [id number] WBC (Bld) [#/Vol] 7.9 10*3/uL Normal 3.4-10.8 [facility] Internal [facility]; [facility] Work Phone: WBC Auto #/vol (Bld) 7.9 {x10E3/uL} Normal 3.4-10.8 [facility] Work Phone: LIPID PANEL ([id number])Ordered B y: Gas Fitter on 06-06-2017 Cholesterol in HDL mass conc 42 mg/dL Normal [facility] Work Phone: Comment on above: PATIENT WAS FASTINGP ERFORMED BY: DEMETRIUS Omnireliantroseline Ilteom6419 [address] CultureIQNovant Health Franklin [facility] Center [id number]; review on 06/11 Cholesterol in LDL mass conc 57 mg/dL Normal 0-99 [facility] Work Phone: Comment on above: PATIENT WAS FASTINGP ERFORMED BY: DEMETRIUS Omnireliantroseline Sfkitz0173 [facility] [id number]; review on 06/11 Cholesterol in LDL/Cholesterol in HDL mass ratio 1.4 {ratio_units} Normal 0.0-3.2 [facility] Work Phone: Comment on above: LDL/HDL Ratio Men Wo men 1/2 Avg.Risk 1.0 1.5 Avg.Risk 3.6 3.2 2X Avg.Risk 6.2 5.0 3X Avg.Risk 8.0 6.1 PATIENT WAS FASTINGP ERFORMED BY: DEMETRIUS LabLP33.TVroseline Obhifn9046 [facility] [id number]; review on 06/11 Cholesterol in VLDL mass conc 34 mg/dL Normal 5-40 [facility] Work Phone: Comment on above: PATIENT WAS FASTINGP ERFORMED BY: DEMETRIUS LabLP33.TVroseline Qoxgzo1052 [facility] [id number]; review on 06/11 Cholesterol mass conc 133 mg/dL Normal 100-199 Com prehensive [facility] Work Phone: Comment on above: PATIENT WAS FASTINGP ERFORMED BY: DEMETRIUS LabBen KongAnmxiq1148 Vargas RoadDublin [place] [id number]; review on 06/11 Triglyceride mass conc 168 mg/dL Abnormal 0-149 [facility] Work Phone: Comment on above: PATIENT WAS FASTINGP ERFORMED BY: DEMETRIUS [facility] Khqdkz4941 Vargas Roadblin [place] [id number]; review on 06/11 METABOLIC PANEL, COMPREHENSI VE ([id number])Ordered By: Gas Fitter on 06-06-2017 Albumin mass conc 4.2 g/dL Normal 3.5-4.8 Compre[facility] Internal Medicine Work Phone: Comment on above: PATIENT WAS FASTINGP ERFORMED BY: DEMETRIUS LabCoroseline Vthgtd7092 Varg[address] Roadblin [place] [id number] Albumin/Globulin mass ratio 1.8 {ratio} Normal 1.2-2.2 [facility] Work Phone: Comment on above: PATIENT WAS FASTINGP ERFORMED BY: DEMETRIUS [facility] Aiqvhy9258 Vargas RoadDublin [place] [id number] ALP [Catalytic activity/Vol] 65 U/L Normal 39-117 [facility]; [facility] Work Phone: ALP enzyme act/vol 65 [iU]/L Normal 39-117 [facility] Internal Medicine Work Phone: Comment on above: PATIENT WAS FASTINGP ERFORMED BY: DEMETRIUS [facility] Hfikro6214 V[address] Roadblin [place] [id number] ALT [Catalytic activity/Vol] 28 U/L Normal 0-32 [facility]; [facility] Work Phone: ALT enzyme act/vol 28 [iU]/L Normal 0-32 [facility] Internal Medicine Work Phone: Comment on above: PATIENT WAS FASTINGP ERFORMED BY: DEMETRIUS [facility] Fvrghv9306 V[address] RoadDublin [place] [id number] AST [Catalytic activity/Vol] 29 U/L Normal 0-40 [facility]; [facility] Work Phone: AST enzyme act/vol 29 [iU]/L Normal 0-40 [facility] Internal [facility] Work Phone: Comment on above: PATIENT WAS FASTINGP ERFORMED BY: DEMETRIUS [facility] Hrneoi3752 [address] RoadDublin [place] [id number] Bilirubin mass conc 0.4 mg/dL Normal 0.0-1.2 Compr ensive Internal Medicine Work Phone: Comment on above: PATIENT WAS FASTINGP ERFORMED BY: DEMETRIUS [facility] Bzqlja8839 Vargas RoadDublin [place] [id number] Calcium mass conc 9.1 mg/dL Normal 8.7-10.3 Compreh [facility] Work Phone: Comment on above: PATIENT WAS FASTINGP ERFORMED BY: DEMETRIUS [facility] Brwncm8612 [address] RoadDublin [place] [id number] Chloride molar conc 101 mmol/L Normal 96-106 Compr [facility] Internal Medicine Work Phone: Comment on above: PATIENT WAS FASTINGP ERFORMED BY: DEMETRIUS [facility] Nbghdd2765 [address]arg[address] RoadDublin [place] [id number] CO2 molar conc 24 mmol/L Normal 18-29 Comprehens [facility] Internal [facility] Work Phone: Comment on above: PATIENT WAS FASTINGP ERFORMED BY: DEMETRIUS [facility] Ycgppz0979 Vargas RoadDublin [place] [id number] Creatinine mass conc 0.71 mg/dL Normal 0.57-1.00 [facility] Internal Medicine Work Phone: Comment on above: PATIENT WAS FASTINGP ERFORMED BY: DEMETRIUS [facility] Zbsipa0754 [address] RoadDublin [place] [id number] GFR/1.73 sq M predicted among blacks CKD-EPI vol rate/area (S/P/Bld) 100 mL/min/1.73 Normal Comprehensiv e Internal Medicine Work Phone: Comment on above: PATIENT WAS FASTINGP ERFORMED BY: DEMETRIUS [facility] Qsxlej3544 [address] RoadDublin [place] [id number] GFR/1.73 sq M predicted among non-blacks CKD-EPI vol rate/area (S/P/Bld) 87 mL/min/1.73 Normal [facility] Work Phone: Comment on above: PATIENT WAS FASTINGP ERFORMED BY: DEMETRIUS [facility] Fjxmrp0026 [facility] [id number] Globulin (S) [Mass/Vol] 2.4 g/dL Normal 1.5-4.5 [facility] Work Phone: Comment on above: PATIENT WAS FASTINGP ERFORMED BY: [place] [id number] [facility] [id number] Globulin Calculated mass conc (S) 2.4 g/dL Normal 1.5-4.5 [facility] Work Phone: Glucose mass conc 91 mg/dL Normal 65-99 Compreh ensive Internal Medicine Work Phone: Comment on above: PATIENT WAS FASTINGP ERFORMED BY: DEMETRIUS [place] [id number] [facility] [id number] Potassium molar conc 4.3 mmol/L Normal 3.5-5.2 Comp rehensive Internal Medicine Work Phone: Comment on above: PATIENT WAS FASTINGP ERFORMED BY: DEMETRIUS [place] [id number] [facility] [id number] Protein mass conc 6.6 g/dL Normal 6.0-8.5 Compreh ensive Internal Medicine Work Phone: Comment on above: PATIENT WAS FASTINGP ERFORMED BY: [place] [id number] [facility] [id number] Sodium molar conc 141 mmol/L Normal 134-144 Compreh ensive Internal Medicine Work Phone: Comment on above: PATIENT WAS FASTINGP ERFORMED BY: [facility]6370 [facility] [id number] Urea nitrogen mass conc 11 mg/dL Normal 8-27 [facility] Work Phone: Comment on above: PATIENT WAS FASTINGP ERFORMED BY: DEMETRIUS [place] [id number] [facility] [id number] Urea nitrogen/Creatinine mass ratio 15 mg/mg Normal 06-19 [facility] Work Phone: Comment on above: PATIENT WAS FASTINGP ERFORMED BY: [facility] Csfgwx6526 [facility] [id number] TSH ([id number])Ordered By: Serene laws Chip Separator on 06-06-2017 Thyrotropin Qn 1.700 {uIU/mL} Normal 0.450-4.50 0 [facility] Work Phone: Comment on above: PATIENT WAS FASTINGP ERFORMED BY: [facility] Gkxsia3260 [facility] [id number] Blood Glucose , Office ([phone])Ordered By: Santos Child on 02-05-2017 Glucose Glucometer molar conc (BldC) 101 1 Normal [facility] Work Phone: HgA1C , Office ([phone])Ordere d By: Santos Child on 02-05-2017 Hemoglobin A1c/Hemoglobin.total mass fraction (Bld) 5.6 % Normal 4.6 - 7.1 Comprehensiv e Internal Medicine Work Phone: Basic Metabolic Profile (BMP )Ordered By: Gas Fitter on 10-18-2016 Basic metabolic 2000 panel 107 mmol/L Normal 98-107 [facility] Work Phone: Basic metabolic 2000 panel 67 mL/min Normal [facility] Work Phone: Comment on above: Non- GFR Calc Basic metabolic 2000 panel 28.0 mmol/L Normal 21.0-32.0 [facility] Work Phone: Basic metabolic 2000 panel 81 mL/min Normal [facility] Work Phone: Comment on above: GFR Calc Basic metabolic 2000 panel 44.89 ml/min Normal [facility] Work Phone: Basic metabolic 2000 panel 15.9 {RATIO} Normal 10-20 [facility] Work Phone: Basic metabolic 2000 panel 121 mg/dL Abnormal 70-110 [facility] Work Phone: Comment on above: Fasting Glucose resu lt from 110 to <126 mg/dLsuggests IMPAIRED HOMEOSTASIS per A.D.A. criteria. Basic metabolic 2000 panel 14 mg/dL Normal 7-18 [facility] Work Phone: Basic metabolic 2000 panel 6 1 Normal 5-15 [facility] Work Phone: Basic metabolic 2000 panel 10.2 mg/dL Abnormal 8.5-10.1 [facility] Work Phone: Basic metabolic 2000 panel 141 mmol/L Normal 136-145 [facility] Work Phone: Basic metabolic 2000 panel 0.88 mg/dL Normal 0.55-1.02 [facility] Work Phone: Comment on above: The validity of the calculated GFR AND GFRAA in patients over70 years has not been determined. Clinical correlation isessential. Basic metabolic 2000 panel 4.0 mmol/L Normal 3.5-5.1 [facility] Work Phone: CBC W/Diff, AutomatedOrdered By: Gas Fitter on 10-18-2016 CBC W/Diff, Automated 1.2 % Normal 0-5 [facility] prehensive Internal Medicine Work Phone: CBC W/Diff, Automated 8.2 {X10_3/uL} Abnormal 2.0-7.7 [facility] Work Phone: CBC W/Diff, Automated 0.2 % Normal 0-1 Com prehensive [facility] Medicine Work Phone: CBC W/Diff, Automated 0.100 % Normal 0.0-0.9 [facility] prehensive Internal Medicine Work Phone: Comment on above: IG% - Immature Granu locytes (promyelocytes, myelocytes andmetamyelocytes) > 1% indicates that a LEFT SHIFT is Present. CBC W/Diff, Automated 11.9 K/mm3 Abnormal 4.4-11.0 [facility] prehensive Internal Medicine Work Phone: CBC W/Diff, Automated 2.73 {X10_3/ul} Normal 0.83-4.51 [facility] Work Phone: CBC W/Diff, Automated 5.11 {M/mm3} Normal 4.2-5.4 C omprehensive Internal Medicine Work Phone: CBC W/Diff, Automated 45.9 % Normal 37-47 Com prehensive Internal Medicine Work Phone: CBC W/Diff, Automated 89.8 fL Normal 81-99 [facility] prehensive Internal Medicine Work Phone: CBC W/Diff, Automated 31.1 pg Normal 27.0-32.0 Com prehensive [facility] Medicine Work Phone: CBC W/Diff, Automated 34.6 {g/gl} Normal 32-36 [facility] lawnehens[facility] Work Phone: CBC W/Diff, Automated 12.6 % Normal 11.6-14.6 Com prehensive [facility] Work Phone: CBC W/Diff, Automated 41.2 fL Normal 35.1-43.9 [facility] prehensive Internal Medicine Work Phone: CBC W/Diff, Automated 285 K/mm3 Normal 150-450 [facility] prehensive Internal Medicine Work Phone: CBC W/Diff, Automated 15.9 g/dL Abnormal 12.0-15.0 [facility] prehensive Internal Medicine Work Phone: CBC W/Diff, Automated 9.2 fL Normal 6.2-12.0 [facility] prehensive Internal Medicine Work Phone: CBC W/Diff, Automated 69.3 % Normal 47-70 [facility] prehensive Internal Medicine Work Phone: CBC W/Diff, Automated 23.0 % Normal 19-41 [facility] prehensive Internal Medicine Work Phone: CBC W/Diff, Automated 6.2 % Normal 0-10 Com prehensive [facility] Medicine Work Phone: Blood Glucose , Office ([phone])Ordered By: Santos Child on 10-02-2016 Glucose Glucometer molar conc (BldC) 103 1 Normal [facility] Work Phone: HgA1C , Office ([phone])Ordere d By: Santos Child on 10-02-2016 Hemoglobin A1c/Hemoglobin.total mass fraction (Bld) 5.6 % Normal 4.6 - 7.1 Comprehensiv e [facility] Work Phone: CALCIFIDIOL ([id number]) VIT D 25 Ordered By: Gas Fitter on 09-26-2016 25-Hydroxyvitamin D2+25-Hydroxyvitamin D3 mass conc 83.8 ng/mL Normal 30.0-100.0 [facility] Work Phone: Comment on above: Vitamin D deficiency has been defined by the [place] of[facility] Cent[facility] and an Endocrine Society practice guideline as alevel of serum 25-OH vitamin D less than 20 ng/mL (1,2).The Endocrine Society went on to further define vitamin Dinsufficiency as a level between 21 and 29 ng/mL (2).1. IOM ([place] of Medicine). 2010. Dietary reference intakes for calcium and D. [place]: The National Academies Press.2. Néstor MF, Jorge IVY, Justus ZHOU, et al. Evaluation, treatment, and prevention of vitamin D deficiency: an Endocrine Society clinical practice guideline. JCEM. 2010; 96(7):1911-30. PATIENT WAS FASTINGP ERFORMED BY: [facility]armaKindred [facility] [id number] CBC W/AUTO DIFF WBC ([id number])O rdered By: Gas Fitter on 09-26-2016 Basophils (Bld) [#/Vol] 0.0 {x10E3/uL} Normal 0.0-0.2 [facility] Work Phone: Comment on above: PATIENT WAS FASTINGP ERFORMED BY: [facility]SystemsNov[facility] [id number] Basophils (Bld) [#/Vol] 0.0 10*3/uL Normal 0.0-0.2 [facility]; [facility] Work Phone: Basophils Auto #/vol (Bld) 0.0 {x10E3/uL} Normal 0.0-0.2 [facility] Work Phone: Basophils/100 WBC (Bld) 0 % Normal [facility] Work Phone: Comment on above: PATIENT WAS FASTINGP ERFORMED BY: ObserveIT6370 [facility] [id number] Basophils/100 WBC Auto (Bld) 0 % Normal [facility] Work Phone: Eosinophils (Bld) [#/Vol] 0.2 {x10E3/uL} Normal 0.0-0.4 [facility] Work Phone: Comment on above: PATIENT WAS FASTINGP ERFORMED BY: [place] [id number] [facility] [id number] Eosinophils (Bld) [#/Vol] 0.2 10*3/uL Normal 0.0-0.4 [facility]; [facility] Work Phone: Eosinophils Auto #/vol (Bld) 0.2 {x10E3/uL} Normal 0.0-0.4 [facility] Work Phone: Eosinophils/100 WBC (Bld) 3 % Normal [facility] Work Phone: Comment on above: PATIENT WAS FASTINGP ERFORMED BY: [place] [id number] [facility] [id number] Eosinophils/100 WBC Auto (Bld) 3 % Normal [facility] Work Phone: Erythrocyte distribution width (RBC) [Ratio] 13.2 % Normal 12.3-15.4 [facility] Work Phone: Comment on above: PATIENT WAS FASTINGP ERFORMED BY: [place] [id number] [facility] [id number] Erythrocyte distribution width Auto Ratio (RBC) 13.2 % Normal 12.3-15.4 [facility] Work Phone: Hematocrit (Bld) [Volume fraction] 42.6 % Normal 34.0-46.6 [facility] Work Phone: Comment on above: PATIENT WAS FASTINGP ERFORMED BY: [place] [id number] [facility] [id number] Hematocrit Auto Volume Fraction (Bld) 42.6 % Normal 34.0-46.6 Comprehens [facility] Internal [facility] Work Phone: Hemoglobin mass conc (Bld) 14.4 g/dL Normal 11.1-15.9 [facility] Work Phone: Comment on above: PATIENT WAS FASTINGP ERFORMED BY: [place] [id number] [facility] [id number] Immature granulocytes #/vol (Bld) 0.0 {x10E3/uL} Normal 0.0-0.1 [facility] Work Phone: Comment on above: PATIENT WAS FASTINGP ERFORMED BY: [address] [id number] Immature granulocytes (Bld) [#/Vol] 0.0 10*3/uL Normal 0.0-0.1 [facility]; [facility] Work Phone: Immature granulocytes/100 WBC (Bld) 0 % Normal [facility] Work Phone: Comment on above: PATIENT WAS FASTINGP ERFORMED BY: [place] [id number] [facility] [id number] Lymphocytes (Bld) [#/Vol] 3.9 {x10E3/uL} Abnormal 0.7-3.1 [facility] Work Phone: Comment on above: PATIENT WAS FASTINGP ERFORMED BY: [address] [id number] Lymphocytes (Bld) [#/Vol] 3.9 10*3/uL Abnormal 0.7-3.1 [facility]; [facility] Work Phone: Lymphocytes Auto #/vol (Bld) 3.9 {x10E3/uL} Abnormal 0.7-3.1 [facility] Work Phone: Lymphocytes/100 WBC (Bld) 48 % Normal [facility] Work Phone: Comment on above: PATIENT WAS FASTINGP ERFORMED BY: [place] [id number] [facility] [id number] Lymphocytes/100 WBC Auto (Bld) 48 % Normal [facility] Work Phone: MCH (RBC) [Entitic mass] 30.6 pg Normal 26.6-33.0 [facility] Work Phone: Comment on above: PATIENT WAS FASTINGP ERFORMED BY: OmnireliantThe Memorial Hospital of Salem CountyKioper7825 [facility] [id number] MCH Auto Entitic mass (RBC) 30.6 pg Normal 26.6-33.0 [facility] Work Phone: MCHC (RBC) [Mass/Vol] 33.8 g/dL Normal 31.5-35.7 [facility] prehensive Internal Medicine Work Phone: Comment on above: PATIENT WAS FASTINGP ERFORMED BY: OmnireliantNew Mexico Behavioral Health Institute at Las VegasBhmrsr7160 [facility] [id number] MCHC Auto mass conc (RBC) 33.8 g/dL Normal 31.5-35.7 [facility] Work Phone: MCV (RBC) [Entitic vol] 91 fL Normal 79-97 [facility] Work Phone: Comment on above: PATIENT WAS FASTINGP ERFORMED BY: OmnireliantThe Memorial Hospital of Salem CountyWbgejd8747 [facility] [id number] MCV Auto Entitic volume (RBC) 91 fL Normal 79-97 [facility] Work Phone: Monocytes (Bld) [#/Vol] 0.5 {x10E3/uL} Normal 0.1-0.9 [facility] Work Phone: Comment on above: PATIENT WAS FASTINGP ERFORMED BY: OmnireliantThe Memorial Hospital of Salem CountyYiukwg2501 [facility] [id number] Monocytes (Bld) [#/Vol] 0.5 10*3/uL Normal 0.1-0.9 [facility]; [facility] Work Phone: Monocytes Auto #/vol (Bld) 0.5 {x10E3/uL} Normal 0.1-0.9 [facility] Work Phone: Monocytes/100 WBC (Bld) 6 % Normal [facility] Work Phone: Comment on above: PATIENT WAS FASTINGP ERFORMED BY: DEMETRIUS [facility]6370 [facility] [id number] Monocytes/100 WBC Auto (Bld) 6 % Normal [facility] Work Phone: Neutrophils (Bld) [#/Vol] 3.4 {x10E3/uL} Normal 1.4-7.0 [facility] Work Phone: Comment on above: PATIENT WAS FASTINGP ERFORMED BY: DEMETRIUS [place] [id number] [facility] [id number] Neutrophils (Bld) [#/Vol] 3.4 10*3/uL Normal 1.4-7.0 [facility]; [facility] Work Phone: Neutrophils Auto #/vol (Bld) 3.4 {x10E3/uL} Normal 1.4-7.0 [facility] Work Phone: Neutrophils/100 WBC (Bld) 43 % Normal [facility] Work Phone: Comment on above: PATIENT WAS FASTINGP ERFORMED BY: [place] [id number] [facility] [id number] Neutrophils/100 WBC Auto (Bld) 43 % Normal [facility] Work Phone: Platelets (Bld) [#/Vol] 276 {x10E3/uL} Normal 150-379 [facility] Work Phone: Comment on above: PATIENT WAS FASTINGP ERFORMED BY: [facility]6370 [facility] [id number] Platelets (Bld) [#/Vol] 276 10*3/uL Normal 150-379 [facility]; [facility] Work Phone: Platelets Auto #/vol (Bld) 276 {x10E3/uL} Normal 150-379 [facility] Work Phone: RBC (Bld) [#/Vol] 4.70 {x10E6/uL} Normal 3.77-5.28 [facility] Internal Medicine Work Phone: Comment on above: PATIENT WAS FASTINGP ERFORMED BY: DEMETRIUS [facility] Ebgqjn5842 [facility] [id number] RBC (Bld) [#/Vol] 4.70 10*6/uL Normal 3.77-5.28 [facility]; [facility] Work Phone: RBC Auto #/vol (Bld) 4.70 {x10E6/uL} Normal 3.77-5.28 [facility] Work Phone: WBC (Bld) [#/Vol] 8.0 {x10E3/uL} Normal 3.4-10.8 [facility] Work Phone: Comment on above: PATIENT WAS FASTINGP ERFORMED BY: DEMETRIUS Omnireliant Ibzfwp3577 [facility] [id number] WBC (Bld) [#/Vol] 8.0 10*3/uL Normal 3.4-10.8 [facility]; [facility] Work Phone: WBC Auto #/vol (Bld) 8.0 {x10E3/uL} Normal 3.4-10.8 [facility] Work Phone: LIPID PANEL ([id number])Ordered B y: Gas Fitter on 09-26-2016 Cholesterol in HDL mass conc 40 mg/dL Normal [facility] Work Phone: Comment on above: PATIENT WAS FASTINGP ERFORMED BY: DEMETRIUS LabGarden City Hospital6370 [facility] [id number] Cholesterol in LDL mass conc 67 mg/dL Normal 0-99 [facility] Work Phone: Comment on above: PATIENT WAS FASTINGP ERFORMED BY: DEMETRIUS [facility] Jvsmyp4284 [facility] [id number] Cholesterol in LDL/Cholesterol in HDL mass ratio 1.7 {ratio_units} Normal 0.0-3.2 [facility] Work Phone: Comment on above: LDL/HDL Ratio Men Wo men 1/2 Avg.Risk 1.0 1.5 Avg.Risk 3.6 3.2 2X Avg.Risk 6.2 5.0 3X Avg.Risk 8.0 6.1 PATIENT WAS FASTINGP ERFORMED BY: DEMETRIUS LabCoroseline Fhdzqb[address] [facility] [place] [id number] Cholesterol in VLDL mass conc 46 mg/dL Abnormal 5-40 [facility] Work Phone: Comment on above: PATIENT WAS FASTINGP ERFORMED BY: DEMETRIUS LabCoroseline KongFwpzqf2849 [address] [facility] [place] [id number] Cholesterol mass conc 153 mg/dL Normal 100-199 [facility] prehensive Internal Medicine Work Phone: Comment on above: PATIENT WAS FASTINGP ERFORMED BY: DEMETRIUS LabCoroseline KongReozkg2874 [address] [facility] [place] [id number] Triglyceride mass conc 230 mg/dL Abnormal 0-149 [facility] Work Phone: Comment on above: PATIENT WAS FASTINGP ERFORMED BY: DEMETRIUS LabCoroseline KongNnpzsh4257 [facility] [id number] METABOLIC PANEL, COMPREHENSI VE ([id number])Ordered By: Gas Fitter on 09-26-2016 Albumin mass conc 4.3 g/dL Normal 3.6-4.8 Compreh ensive Internal Medicine Work Phone: Comment on above: PATIENT WAS FASTINGP ERFORMED BY: DEMETRIUS LabCoroseline Ygzptc4199 [address] [facility]in [place] [id number] Albumin/Globulin mass ratio 1.7 {ratio} Normal 1.2-2.2 [facility] Work Phone: Comment on above: Please note refere nce interval change PATIENT WAS FASTINGP ERFORMED BY: DEMETRIUS [facility] Sxsskq7371 [address] [facility]in [place] [id number] ALP [Catalytic activity/Vol] 75 U/L Normal 39-117 [facility]; [facility] Work Phone: ALP enzyme act/vol 75 [iU]/L Normal 39-117 [facility] Work Phone: Comment on above: PATIENT WAS FASTINGP ERFORMED BY: DEMETRIUS [facility] Mhawsh4670 [address] RoadDublin [place] [id number] ALT [Catalytic activity/Vol] 24 U/L Normal 0-32 [facility]; [facility] Internal Medicine Work Phone: ALT enzyme act/vol 24 [iU]/L Normal 0-32 [facility] Internal Medicine Work Phone: Comment on above: PATIENT WAS FASTINGP ERFORMED BY: CB [facility] Xhtccw3794 [address] RoadDublin [place] [id number] AST [Catalytic activity/Vol] 22 U/L Normal 0-40 [facility] Internal Medicine; [facility] Internal Medicine Work Phone: AST enzyme act/vol 22 [iU]/L Normal 0-40 [facility] Internal Medicine Work Phone: Comment on above: PATIENT WAS FASTINGP ERFORMED BY: CB [facility] Zjygwc7776 [address] RoadDublin [place] [id number] Bilirubin mass conc 0.4 mg/dL Normal 0.0-1.2 [facility] Internal Medicine Work Phone: Comment on above: PATIENT WAS FASTINGP ERFORMED BY: CB [facility] Nfpnxo0818 [address] RoadDublin [place] [id number] Calcium mass conc 9.6 mg/dL Normal 8.7-10.3 Compreh [facility] Work Phone: Comment on above: PATIENT WAS FASTINGP ERFORMED BY: CB [facility] Vlrrko6253 [address] RoadDublin [place] [id number] Chloride molar conc 102 mmol/L Normal 96-106 Compr [facility] Internal Medicine Work Phone: Comment on above: PATIENT WAS FASTINGP ERFORMED BY: CB [facility] Wmwdrs8878 [address] RoadDublin [place] [id number] CO2 molar conc 24 mmol/L Normal 18-29 [facility]pre[facility] Internal [facility] Work Phone: Comment on above: PATIENT WAS FASTINGP ERFORMED BY: CB [facility] Tvjnry8755 [address] RoadDublin [place] [id number] Creatinine mass conc 0.82 mg/dL Normal 0.57-1.00 Comp [facility] Work Phone: Comment on above: PATIENT WAS FASTINGP ERFORMED BY: DEMETRIUS [facility] Xzqmzn4721 [address] RoadDublin [place] [id number] GFR/1.73 sq M predicted among blacks CKD-EPI vol rate/area (S/P/Bld) 84 mL/min/1.73 Normal Comprehensiv e Internal Medicine Work Phone: Comment on above: PATIENT WAS FASTINGP ERFORMED BY: CB [facility] Zclrot4265 [address] RoadDublin [place] [id number] GFR/1.73 sq M predicted among non-blacks CKD-EPI vol rate/area (S/P/Bld) 73 mL/min/1.73 Normal [facility] Work Phone: Comment on above: PATIENT WAS FASTINGP ERFORMED BY: DEMETRIUS [facility] Lycgjp1891 [address]Dublin [place] [id number] Globulin (S) [Mass/Vol] 2.6 g/dL Normal 1.5-4.5 [facility] Work Phone: Comment on above: PATIENT WAS FASTINGP ERFORMED BY: DEMETRIUS [facility] Grcrul7511 [address]blin [place] [id number] Globulin Calculated mass conc (S) 2.6 g/dL Normal 1.5-4.5 [facility] Work Phone: Glucose mass conc 102 mg/dL Abnormal 65-99 Compreh ensive Internal Medicine Work Phone: Comment on above: PATIENT WAS FASTINGP ERFORMED BY: DEMETRIUS [facility] Bcrswq6564 [address] RoadDublin [place] [id number] Potassium molar conc 4.6 mmol/L Normal 3.5-5.2 Comp rehensive Internal Medicine Work Phone: Comment on above: PATIENT WAS FASTINGP ERFORMED BY: CB [facility] Davfmz7531 [address] RoadDublin [place] [id number] Protein mass conc 6.9 g/dL Normal 6.0-8.5 Compreh ensive Internal Medicine Work Phone: Comment on above: PATIENT WAS FASTINGP ERFORMED BY: CB [facility] Cxpbhy6824 [address]blin [place] [id number] Sodium molar conc 143 mmol/L Normal 134-144 Compreh ensive Internal Medicine Work Phone: Comment on above: PATIENT WAS FASTINGP ERFORMED BY: DEMETRIUS [facility] Xdhvhj3044 [facility] [id number] Urea nitrogen mass conc 13 mg/dL Normal 8-27 [facility] Work Phone: Comment on above: PATIENT WAS FASTINGP ERFORMED BY: [facility] Hplmzb7659 [facility] [id number] Urea nitrogen/Creatinine mass ratio 16 mg/mg Normal 12- [facility] Work Phone: Comment on above: Please note refere nce interval change PATIENT WAS FASTINGP ERFORMED BY: [facility] Dzvvpy2420 [facility] [id number] TSH ([id number])Ordered By: Amoreliee m Chip Separator on 09-26-2016 Thyrotropin Qn 1.620 {uIU/mL} Normal 0.450-4.50 0 [facility] Work Phone: Comment on above: PATIENT WAS FASTINGP ERFORMED BY: [facility] Hgvjlz9706 [facility] [id number] Fecal Occult Blood , Office ([id number])Ordered By: Don Gongora on 07-31-2016 Hemoglobin.gastrointe stinal Ql (St) Negative Normal [facility] Work Phone: Hemoglobin.gastrointe stinal Ql (Stl) Negative Normal [facility]; [facility] Work Phone: Basic Metabolic Profile (BMP )Ordered By: Gas Fitter on 05-19-2016 Basic metabolic 2000 panel 142 mmol/L Normal 136-145 [facility] Work Phone: Basic metabolic 2000 panel 103 mmol/L Normal 98-107 [facility] Work Phone: Basic metabolic 2000 panel 28.0 mmol/L Normal 21.0-32.0 [facility] Work Phone: Basic metabolic 2000 panel 11 1 Normal 5-15 [facility] Work Phone: Basic metabolic 2000 panel 3.5 mmol/L Normal 3.5-5.1 [facility] Work Phone: Basic metabolic 2000 panel 9.5 mg/dL Normal 8.5-10.1 [facility] Work Phone: Basic metabolic 2000 panel 18.1 {RATIO} Normal 10-20 [facility] Work Phone: Basic metabolic 2000 panel 48.27 ml/min Normal [facility] Work Phone: Basic metabolic 2000 panel 88 mL/min Normal [facility] Work Phone: Comment on above: GFR Calc Basic metabolic 2000 panel 73 mL/min Normal [facility] Work Phone: Comment on above: Non- GFR Calc Basic metabolic 2000 panel 0.83 mg/dL Normal 0.55-1.02 [facility] Work Phone: Comment on above: The validity of the calculated GFR AND GFRAA in patients over70 years has not been determined. Clinical correlation isessential. Basic metabolic 2000 panel 101 mg/dL Normal 70-110 [facility] Work Phone: Basic metabolic 2000 panel 15 mg/dL Normal 7-18 [facility] Work Phone: Bedside GlucoseOrdered By: Efrain ystem Chip Separator on 05-19-2016 Bedside Glucose 111 mg/dL Abnormal 70-110 Comprehen [facility] Internal Medicine Work Phone: Comment on above: MANAGEMENT OF PATIEN T CARE PER NURSING PROTOCOL CBC W/Diff, AutomatedOrdered By: Gas Fitter on 05-19-2016 CBC W/Diff, Automated 41.4 fL Normal 35.1-43.9 [facility] prehensive Internal Medicine Work Phone: CBC W/Diff, Automated 8.5 K/mm3 Normal 4.4-11.0 Com prehensive Internal Medicine Work Phone: CBC W/Diff, Automated 4.70 {M/mm3} Normal 4.2-5.4 C omprehensive Internal Medicine Work Phone: CBC W/Diff, Automated 14.5 g/dL Normal 12.0-15.0 [facility] prehensive Internal Medicine Work Phone: CBC W/Diff, Automated 42.7 % Normal 37-47 [facility] prehensive Internal Medicine Work Phone: CBC W/Diff, Automated 90.9 fL Normal 81-99 [facility] prehensive Internal Medicine Work Phone: CBC W/Diff, Automated 30.9 pg Normal 27.0-32.0 [facility] prehensive Internal Medicine Work Phone: CBC W/Diff, Automated 34.0 {g/gl} Normal 32-36 [facility] wal[facility] lawnehensive Internal Medicine Work Phone: CBC W/Diff, Automated 12.5 % Normal 11.6-14.6 [facility] prehensive Internal Medicine Work Phone: CBC W/Diff, Automated 301 K/mm3 Normal 150-450 [facility] prehensive Internal Medicine Work Phone: CBC W/Diff, Automated 9.2 fL Normal 6.2-12.0 [facility] prehensive Internal Medicine Work Phone: CBC W/Diff, Automated 51.3 % Normal 47-70 [facility] prehensive Internal Medicine Work Phone: CBC W/Diff, Automated 42.2 % Abnormal 19-41 [facility] prehensive Internal Medicine Work Phone: CBC W/Diff, Automated 4.4 % Normal 0-10 [facility] prehensive Internal Medicine Work Phone: CBC W/Diff, Automated 1.8 % Normal 0-5 [facility] prehensive Internal Medicine Work Phone: CBC W/Diff, Automated 0.2 % Normal 0-1 [facility] prehensive Internal Medicine Work Phone: CBC W/Diff, Automated 0.100 % Normal 0.0-0.9 [facility] Work Phone: Comment on above: IG% - Immature Granu locytes (promyelocytes, myelocytes andmetamyelocytes) > 1% indicates that a LEFT SHIFT is Present. CBC W/Diff, Automated 4.4 {X10_3/uL} Normal 2.0-7.7 [facility] Internal Medicine Work Phone: CBC W/Diff, Automated 3.59 {X10_3/ul} Normal 0.83-4.51 [facility] Work Phone: Partial Thromboplast TimeOrd ered By: Gas Fitter on 05-19-2016 aPTT Coag time (Bld) 34.3 s Normal 24.1-36.2 Comp rehensive Internal Medicine Work Phone: Prothrombin Time w/INROrdere d By: Gas Fitter on 05-19-2016 Prothrombin Time w/INR 13.1 s Normal 11.7-14.9 [facility] Work Phone: Prothrombin Time w/INR 1.0 1 Normal [facility] Work Phone: Troponin-IOrdered By: Gas Fitter on 05-19-2016 Troponin I.cardiac mass conc ng/mL Normal [facility] Work Phone: Comment on above: TROPONIN-I EXPECTED VALUES <0.05 NEGATIVE 0.06 - 0.59 AT RISK OF NE > OR = 0.60 SUGGEST NE Blood Glucose , Office ([phone] 2)Ordered By: Santos Child on 02-21-2016 Glucose Glucometer molar conc (BldC) 88 1 Normal [facility] Work Phone: HgA1C , Office (17509)Ordere d By: Leisa Smith on 02-21-2016 Hemoglobin A1c/Hemoglobin.total mass fraction (Bld) 5.7 % Normal 4.6 - 7.1 [facility] Work Phone: QuantiFERON In TubeOrdered B y: Gas Fitter on 09-25-2015 Annotation comment [Interpretation] Narrative SPRCS Normal [facility] Work Phone: Comment on above: The QuantiFERON TB G old (in Tube) assay is intended for use as an aidin the diagnosis of TB infection. Negative results suggest that thereis no TB infection. In patients with high suspicion of exposure, anegative test should be repeated. A positive test indicates infectionwith Mycobacterium tuberculosis. Among individuals withouttuberculosis infection, a positive test may be due to exposure Jose Martin. kansasii, M. szulgai or M. marinum. On the Internet, go tocdc.gov/tb for further details. Gamma interferon background IA Qn (Bld) 0.04 {IU/mL} Normal [facility] Work Phone: M. tuberculosis stim IFN-g by CD4+ T-cells corrected for background Qn (Bld) <0.00 Normal Com[facility] Work Phone: M. tuberculosis stim IFN-g by CD4+ T-cells Qn (Bld) 0.03 {IU/mL} Normal [facility] Work Phone: M. tuberculosis stim IFN-g Interp Ql (Bld) Negative Normal Comprehens [facility] Work Phone: Mitogen stimulated gamma interferon Qn (Bld) 6.96 {IU/mL} Normal [facility] Work Phone: Service comment Interp (Unsp spec) SPRCS Normal [facility] Work Phone: Comment on above: To be considered pos itive a specimen should have a TB Ag minus Nilvalue greater than or equal to 0.35 IU/mL and in addition the TB Agminus Nil value must be greater than or equal to 25% of the Nilvalue. There may be insufficient information in these values todifferentiate between some negative and some indeterminate testvalues. Quantiferron gold test (8648 0)Ordered By: Gas Fitter on 09-25-2015 Quantiferron gold test (94601) QINT Normal [facility] Work Phone: Comment on above: Incubated, testing t o follow. PATIENT NOT FASTINGP ERFORMED BY: O_ [facility] Arvilla Oxxo7665 [facility] [id number] BY: [facility] Rjaeno2364 [facility] [id number] Information: [id number] Blood Glucose , Office (2996 2)Ordered By: Emily Jenkins on 09-18-2015 Glucose Glucometer molar conc (dC) 84 1 Normal [facility] Work Phone: HgA1C , Office ([phone])Ordere d By: Santos Child on 09-18-2015 Hemoglobin A1c/Hemoglobin.total mass fraction (Bld) 5.9 % Normal 4.6 - 7.1 [facility] Work Phone: CALCIFIDIOL ([id number]) VIT D 25 Ordered By: Gas Fitter on 09-14-2015 25-Hydroxyvitamin D2+25-Hydroxyvitamin D3 mass conc 77.2 ng/mL Normal 30.0-100.0 [facility] Work Phone: Comment on above: Vitamin D deficiency has been defined by the [place] ofMedicine and an Endocrine Society practice guideline as alevel of serum 25-OH vitamin D less than 20 ng/mL (1,2).The Endocrine Society went on to further define vitamin Dinsufficiency as a level between 21 and 29 ng/mL (2).1. IOM ([place] of Medicine). 2010. Dietary reference intakes for calcium and D. [place]: The National Academies Press.2. Néstor MF, Jorge IVY, Justus ZHOU, et al. Evaluation, treatment, and prevention of vitamin D deficiency: an Endocrine Society clinical practice guideline. JCEM. 2010; 96(7):1911-30. PATIENT WAS FASTINGP ERFORMED BY: [facility]armaKind[facility] [id number] CBC W/AUTO DIFF WBC (50899)O rdered By: Gas Fitter on 09-14-2015 Basophils (Bld) [#/Vol] 0.0 {x10E3/uL} Normal 0.0-0.2 [facility] Work Phone: Comment on above: PATIENT WAS FASTINGP ERFORMED BY: ObserveIT6370 EDP BiotechNov[facility] [id number] Information: [id number] Basophils (Bld) [#/Vol] 0.0 10*3/uL Normal 0.0-0.2 [facility]; [facility] Work Phone: Basophils Auto #/vol (Bld) 0.0 {x10E3/uL} Normal 0.0-0.2 [facility] Work Phone: Basophils/100 WBC (Bld) 0 % Normal [facility] Work Phone: Comment on above: PATIENT WAS FASTINGP ERFORMED BY: DEMETRIUS [place] 1686770 [facility] [id number] Information: [id number] Basophils/100 WBC Auto (Bld) 0 % Normal [facility] Work Phone: Eosinophils (Bld) [#/Vol] 0.2 {x10E3/uL} Normal 0.0-0.4 [facility] Work Phone: Comment on above: PATIENT WAS FASTINGP ERFORMED BY: DEMETRIUS [address] [id number] Information: [id number] Eosinophils (Bld) [#/Vol] 0.2 10*3/uL Normal 0.0-0.4 [facility]; [facility] Work Phone: Eosinophils Auto #/vol (Bld) 0.2 {x10E3/uL} Normal 0.0-0.4 [facility] Work Phone: Eosinophils/100 WBC (Bld) 2 % Normal [facility] Work Phone: Comment on above: PATIENT WAS FASTINGP ERFORMED BY: DEMETRIUS [place] 1686770 [facility] [id number] Information: [id number] Eosinophils/100 WBC Auto (Bld) 2 % Normal [facility] Work Phone: Erythrocyte distribution width (RBC) [Ratio] 13.4 % Normal 12.3-15.4 [facility] Work Phone: Comment on above: PATIENT WAS FASTINGP ERFORMED BY: [address] [id number] Information: [id number] Erythrocyte distribution width Auto Ratio (RBC) 13.4 % Normal 12.3-15.4 [facility] Work Phone: Hematocrit (Bld) [Volume fraction] 41.9 % Normal 34.0-46.6 [facility] Work Phone: Comment on above: PATIENT WAS FASTINGP ERFORMED BY: [facility]6370 [facility] [id number] Information: [id number] Hematocrit Auto Volume Fraction (Bld) 41.9 % Normal 34.0-46.6 [facility] Internal Medicine Work Phone: Hemoglobin mass conc (Bld) 14.1 g/dL Normal 11.1-15.9 [facility] Work Phone: Comment on above: PATIENT WAS FASTINGP ERFORMED BY: [address] [id number] Information: [id number] Immature granulocytes #/vol (Bld) 0.0 {x10E3/uL} Normal 0.0-0.1 [facility] Work Phone: Comment on above: PATIENT WAS FASTINGP ERFORMED BY: DEMETRIUS [place] 1686770 [facility] [id number] Information: [id number] Immature granulocytes (Bld) [#/Vol] 0.0 10*3/uL Normal 0.0-0.1 [facility]; [facility] Work Phone: Immature granulocytes/100 WBC (Bld) 0 % Normal [facility] Work Phone: Comment on above: PATIENT WAS FASTINGP ERFORMED BY: [facility]6370 [facility] [id number] Information: [id number] Lymphocytes (Bld) [#/Vol] 3.8 {x10E3/uL} Abnormal 0.7-3.1 [facility] Work Phone: Comment on above: PATIENT WAS FASTINGP ERFORMED BY: [place] 7062870 [facility] [id number] Information: [id number] Lymphocytes (Bld) [#/Vol] 3.8 10*3/uL Abnormal 0.7-3.1 [facility]; [facility] Work Phone: Lymphocytes Auto #/vol (Bld) 3.8 {x10E3/uL} Abnormal 0.7-3.1 [facility] Work Phone: Lymphocytes/100 WBC (Bld) 51 % Normal [facility] Work Phone: Comment on above: PATIENT WAS FASTINGP ERFORMED BY: [address] [id number] Information: [id number] Lymphocytes/100 WBC Auto (Bld) 51 % Normal [facility] Work Phone: MCH (RBC) [Entitic mass] 30.2 pg Normal 26.6-33.0 [facility] Work Phone: Comment on above: PATIENT WAS FASTINGP ERFORMED BY: [facility] OhioLP33.[address] [id number] Information: [id number] MCH Auto Entitic mass (RBC) 30.2 pg Normal 26.6-33.0 [facility] Internal Medicine Work Phone: MCHC (RBC) [Mass/Vol] 33.7 g/dL Normal 31.5-35.7 [facility] Internal Medicine Work Phone: Comment on above: PATIENT WAS FASTINGP ERFORMED BY: [facility] OhioLP33.TVKimberly [place]ille 8076070 [facility] [id number] Information: [id number] MCHC Auto mass conc (RBC) 33.7 g/dL Normal 31.5-35.7 [facility] Internal Medicine Work Phone: MCV (RBC) [Entitic vol] 90 fL Normal 79-97 [facility] Internal Medicine Work Phone: Comment on above: PATIENT WAS FASTINGP ERFORMED BY: [address] [id number] Information: [id number] MCV Auto Entitic volume (RBC) 90 fL Normal 79-97 [facility] Internal Medicine Work Phone: Monocytes (Bld) [#/Vol] 0.4 {x10E3/uL} Normal 0.1-0.9 [facility] Work Phone: Comment on above: PATIENT WAS FASTINGP ERFORMED BY: DEMETRIUS [facility] Trrglv8421 [facility] [id number] Information: [id number] Monocytes (Bld) [#/Vol] 0.4 10*3/uL Normal 0.1-0.9 [facility]; [facility] Work Phone: Monocytes Auto #/vol (Bld) 0.4 {x10E3/uL} Normal 0.1-0.9 [facility] Work Phone: Monocytes/100 WBC (Bld) 5 % Normal [facility] Work Phone: Comment on above: PATIENT WAS FASTINGP ERFORMED BY: DEMETRIUS [place] 1686770 [facility] [id number] Information: [id number] Monocytes/100 WBC Auto (Bld) 5 % Normal [facility] Work Phone: Neutrophils (Bld) [#/Vol] 3.3 {x10E3/uL} Normal 1.4-7.0 [facility] Work Phone: Comment on above: PATIENT WAS FASTINGP ERFORMED BY: DEMETRIUS [facility] Vqyhsj7994 [facility] [id number] Information: [id number] Neutrophils (Bld) [#/Vol] 3.3 10*3/uL Normal 1.4-7.0 [facility]; [facility] Work Phone: Neutrophils Auto #/vol (Bld) 3.3 {x10E3/uL} Normal 1.4-7.0 [facility] Work Phone: Neutrophils/100 WBC (Bld) 42 % Normal [facility] Work Phone: Comment on above: PATIENT WAS FASTINGP ERFORMED BY: [place] [id number] [facility] [id number] Information: [id number] Neutrophils/100 WBC Auto (Bld) 42 % Normal [facility] Work Phone: Platelets (Bld) [#/Vol] 326 {x10E3/uL} Normal 150-379 [facility] Work Phone: Comment on above: PATIENT WAS FASTINGP ERFORMED BY: DEMETRIUS [facility]6370 [facility] [id number] Information: [id number] Platelets (Bld) [#/Vol] 326 10*3/uL Normal 150-379 [facility]; [facility] Work Phone: Platelets Auto #/vol (Bld) 326 {x10E3/uL} Normal 150-379 [facility] Work Phone: RBC (Bld) [#/Vol] 4.67 {x10E6/uL} Normal 3.77-5.28 [facility] Internal Medicine Work Phone: Comment on above: PATIENT WAS FASTINGP ERFORMED BY: DEMETRIUS [facility]6370 [facility] [id number] Information: [id number] RBC (Bld) [#/Vol] 4.67 10*6/uL Normal 3.77-5.28 [facility] Internal Medicine; [facility] Work Phone: RBC Auto #/vol (Bld) 4.67 {x10E6/uL} Normal 3.77-5.28 [facility] Internal Medicine Work Phone: WBC (Bld) [#/Vol] 7.8 {x10E3/uL} Normal 3.4-10.8 [facility] Internal Medicine Work Phone: Comment on above: PATIENT WAS FASTINGP ERFORMED BY: [facility]6370 [facility] [id number] Information: [id number] WBC (Bld) [#/Vol] 7.8 10*3/uL Normal 3.4-10.8 [facility]; [facility] Work Phone: WBC Auto #/vol (Bld) 7.8 {x10E3/uL} Normal 3.4-10.8 [facility] Work Phone: LIPID PANEL ([id number])Ordered B y: Gas Fitter on 09-14-2015 Cholesterol in HDL mass conc 42 mg/dL Normal [facility] Work Phone: Comment on above: According to ATP-III Guidelines, HDL-C >59 mg/dL is considered anegative risk factor for CHD. PATIENT WAS FASTINGP ERFORMED BY: DEMETRIUS iNeoMarketing70 [address] [employer]on[address] Healthcareblin [place] [id number] Cholesterol in LDL mass conc 55 mg/dL Normal 0-99 [facility] Work Phone: Comment on above: PATIENT WAS FASTINGP ERFORMED BY: DEMETRIUS iNeo[employer]eting70 [address] [employer] HealthcareAt[facility] [id number] Cholesterol in LDL/Cholesterol in HDL mass ratio 1.3 {ratio_units} Normal 0.0-3.2 [facility] Work Phone: Comment on above: LDL/HDL Ratio Men Wo men 1/2 Avg.Risk 1.0 1.5 Avg.Risk 3.6 3.2 2X Avg.Risk 6.2 5.0 3X Avg.Risk 8.0 6.1 PATIENT WAS FASTINGP ERFORMED BY: DEMETRIUS Omnireliantroseline Wtfztu1993 [facility] [employer] HealthcareAt[facility] [id number] Cholesterol in VLDL mass conc 35 mg/dL Normal 5-40 [facility] Work Phone: Comment on above: PATIENT WAS FASTINGP ERFORMED BY: DEMETRIUS LabLP33.TVrp Kbhofk6915 [address] [employer] Healthcareblin [place] [id number] Cholesterol mass conc 132 mg/dL Normal 100-199 [facility] prehensive Internal Medicine Work Phone: Comment on above: PATIENT WAS FASTINGP ERFORMED BY: DEMETRIUS LabLP33.TVrp Yzpjcd0620 [address] [employer]on[employer] Healthcarein [place] [id number] Triglyceride mass conc 173 mg/dL Abnormal 0-149 [facility] Work Phone: Comment on above: PATIENT WAS FASTINGP ERFORMED BY: CB [facility] Tqpujt1601 Vargas RoadDublin [place] [id number] METABOLIC PANEL, COMPREHENSI VE (08207)Ordered By: Gas Fitter on 09-14-2015 Albumin mass conc 4.3 g/dL Normal 3.6-4.8 [facility]pre[facility] Internal Medicine Work Phone: Comment on above: PATIENT WAS FASTINGP ERFORMED BY: CB [facility] Pboztm3027 Vargas RoadDublin [place] [id number] Albumin/Globulin mass ratio 1.7 {ratio} Normal 1.1-2.5 [facility] Work Phone: Comment on above: PATIENT WAS FASTINGP ERFORMED BY: DEMETRIUS [facility] Rfcslb8256 Vargas RoadDublin [place] [id number] ALP [Catalytic activity/Vol] 83 U/L Normal 39-117 [facility]; [facility] Work Phone: ALP enzyme act/vol 83 [iU]/L Normal 39-117 [facility] Internal Medicine Work Phone: Comment on above: PATIENT WAS FASTINGP ERFORMED BY: DEMETRIUS [facility] Qzcvlb1573 Vargas RoadDublin [place] [id number] ALT [Catalytic activity/Vol] 23 U/L Normal 0-32 [facility]; [facility] Work Phone: ALT enzyme act/vol 23 [iU]/L Normal 0-32 [facility] Internal Medicine Work Phone: Comment on above: PATIENT WAS FASTINGP ERFORMED BY: CB [facility] Jsrysl5412 [address]as RoadDublin [place] [id number] AST [Catalytic activity/Vol] 24 U/L Normal 0-40 [facility]; [facility] Work Phone: AST enzyme act/vol 24 [iU]/L Normal 0-40 [facility] Internal Medicine Work Phone: Comment on above: PATIENT WAS FASTINGP ERFORMED BY: CB [facility] Tgkkvc9857 Vargas RoadDublin [place] [id number] Bilirubin mass conc 0.3 mg/dL Normal 0.0-1.2 Compr ehensive Internal Medicine Work Phone: Comment on above: PATIENT WAS FASTINGP ERFORMED BY: DEMETRIUS Morillo6[address] [facility] [id number] Calcium mass conc 9.5 mg/dL Normal 8.7-10.3 Compreh ensive Internal Medicine Work Phone: Comment on above: PATIENT WAS FASTINGP ERFORMED BY: DEMETRIUS LabCoroseline KongQeapfx0549 [facility] [id number] Chloride molar conc 103 mmol/L Normal 97-108 Compr ehensive Internal Medicine Work Phone: Comment on above: PATIENT WAS FASTINGP ERFORMED BY: DEMETRIUS Milla Konglin6370 [facility] [id number] CO2 molar conc 23 mmol/L Normal 18-29 Comprehens [facility] Work Phone: Comment on above: PATIENT WAS FASTINGP ERFORMED BY: DEMETRIUS Konglin6370 [facility] [id number] Creatinine mass conc 0.73 mg/dL Normal 0.57-1.00 Comp [facility] healthcare systemensive Internal Medicine Work Phone: Comment on above: PATIENT WAS FASTINGP ERFORMED BY: DEMETRIUS LabBen KongTjyisg7431 [facility] [id number] GFR/1.73 sq M predicted among blacks CKD-EPI vol rate/area (S/P/Bld) 98 mL/min/1.73 Normal Comprehensiv e Internal Medicine Work Phone: Comment on above: PATIENT WAS FASTINGP ERFORMED BY: DEMETRIUS [facility] Xllwwb7680 [facility] [id number] GFR/1.73 sq M predicted among non-blacks CKD-EPI vol rate/area (S/P/Bld) 85 mL/min/1.73 Normal [facility] Work Phone: Comment on above: PATIENT WAS FASTINGP ERFORMED BY: DEMETRIUS [facility] Milwhj3546 [facility] [id number] Globulin (S) [Mass/Vol] 2.5 g/dL Normal 1.5-4.5 [facility] Work Phone: Comment on above: PATIENT WAS FASTINGP ERFORMED BY: DEMETRIUS LabCoroseline Orsyqf5424 [address] [facility] [place] [id number] Globulin Calculated mass conc (S) 2.5 g/dL Normal 1.5-4.5 [facility] Work Phone: Glucose mass conc 98 mg/dL Normal 65-99 Compreh ensive Internal Medicine Work Phone: Comment on above: PATIENT WAS FASTINGP ERFORMED BY: DEMETRIUS LabCoroseline Jjzpac7667 [address] [facility]in [place] [id number] Potassium molar conc 4.7 mmol/L Normal 3.5-5.2 Comp rehensive Internal Medicine Work Phone: Comment on above: PATIENT WAS FASTINGP ERFORMED BY: DEMETRIUS LabBen KongOlaaka7664 [address] [facility] [id number] Protein mass conc 6.8 g/dL Normal 6.0-8.5 Compreh ensive Internal Medicine Work Phone: Comment on above: PATIENT WAS FASTINGP ERFORMED BY: DEMETRIUS LabBen KongJczxpc6116 [address] [facility] [id number] Sodium molar conc 143 mmol/L Normal 134-144 Compreh ensive Internal Medicine Work Phone: Comment on above: PATIENT WAS FASTINGP ERFORMED BY: DEMETRIUS LabBen KongUjusls9247 [address] [facility] [id number] Urea nitrogen mass conc 11 mg/dL Normal 8-27 [facility] Work Phone: Comment on above: PATIENT WAS FASTINGP ERFORMED BY: DEMETRIUS [facility] Jwqvok10[address] [facility] [place] [id number] Urea nitrogen/Creatinine mass ratio 15 mg/mg Normal 11- [facility] Work Phone: Comment on above: PATIENT WAS FASTINGP ERFORMED BY: DEMETRIUS [facility] Qjbyxd3973 [address] [facility] Hospitalin [place] [id number] MICROALBUMINOrdered By: Syst em Chip Separator on 09-14-2015 Albumin DL <= 20 mg/L mass conc (U) 3.2 ug/mL Normal 0.0-17.0 [facility] Work Phone: Comment on above: PATIENT WAS FASTINGP ERFORMED BY: DEMETRIUS [facility]6370 [facility] [id number] Albumin/Creatinine mass ratio (U) 16.5 {mg/g_creat} Normal 0.0-30.0 [facility] Work Phone: Comment on above: PATIENT WAS FASTINGP ERFORMED BY: DEMETRIUS LabCo Uhqtlo1461 [facility] [id number] Creatinine mass conc (U) 19.4 mg/dL Normal 15.0-278.0 [facility] Work Phone: Comment on above: PATIENT WAS FASTINGP ERFORMED BY: DEMETRIUS RoambiSaint Luke'S Health SystemIkcmyw9384 [facility] [id number] Microscopic ExaminationOrder ed By: Gas Fitter on 09-14-2015 Bacteria LM.HPF #/area (Urine sed) None seen Normal [facility] Work Phone: Epithelial cells LM.HPF #/area (Urine sed) 0-10 Normal 0 - 10 [facility] Work Phone: RBC LM.HPF #/area (Urine sed) 0-2 Normal 0 - 2 [facility] Work Phone: WBC LM.HPF #/area (Urine sed) 0-5 Normal 0 - 5 [facility] Work Phone: TSH ([id number])Ordered By: Willye m Chip Separator on 09-14-2015 Thyrotropin Qn 1.750 {uIU/mL} Normal 0.450-4.50 0 [facility] Work Phone: Comment on above: PATIENT WAS FASTINGP ERFORMED BY: DEMETRIUS [facility]6370 [facility] [id number] URINALYSIS, W/ MICRO ([id number]) Ordered By: Gas Fitter on 09-14-2015 Appearance Nom (U) Clear Normal Compre hensive Internal Medicine Work Phone: Comment on above: PATIENT WAS FASTINGP ERFORMED BY: DEMETRIUS Morillo6370 [address] RoadDublin [place] [id number] Bilirubin Ql (U) Negative Normal Comprehe nsive Internal Medicine Work Phone: Comment on above: PATIENT WAS FASTINGP ERFORMED BY: DEMETRIUS Morillo6370 [address] RoadDublin [place] [id number] Bilirubin Ql (U) Negative Normal Comprehe nsive Internal Medicine; [facility] Work Phone: Color Nom (U) Yellow Normal Comprehensi ve Internal Medicine Work Phone: Comment on above: PATIENT WAS FASTINGP ERFORMED BY: DEMETRIUS Morillo6370 [address] RoadDublin [place] [id number] Glucose Ql (U) Negative Normal Comprehens [facility] Medicine Work Phone: Comment on above: PATIENT WAS FASTINGP ERFORMED BY: DEMETRIUS Morillo6370 [address] RoadDublin [place] [id number] Glucose Ql (U) Negative Normal Comprehens [facility]ley [facility]; [facility] Work Phone: Hemoglobin Ql (U) Negative Normal Compreh ensive Internal Medicine Work Phone: Comment on above: PATIENT WAS FASTINGP ERFORMED BY: DEMETRIUS Morillo6370 [address] RoadDublin [place] [id number] Hemoglobin Ql (U) Negative Normal Compreh ensive Internal Medicine; [facility] Work Phone: Hemoglobin Test strip Ql (U) Negative Normal [facility] Work Phone: Ketones Ql (U) Negative Normal Comprehens [facility] Work Phone: Comment on above: PATIENT WAS FASTINGP ERFORMED BY: DEMETRIUS Morillo6370 [address] RoadDublin [place] [id number] Ketones Ql (U) Negative Normal Comprehens [facility]; [facility] Work Phone: Leukocyte esterase Test strip Ql (U) 1+ Abnormal [facility] Work Phone: Comment on above: PATIENT WAS FASTINGP ERFORMED BY: DEMETRIUS Sheltonrp Bnjdai9993 [address] RoadDublin [place] [id number] Microscopic observation LM Nom (Urine sed) See below: Normal [facility] Work Phone: Comment on above: Microscopic was calli cated and was performed. PATIENT WAS FASTINGP ERFORMED BY: DEMETRIUS LabCo Jgfyup6030 [address] RoadDublin [place] [id number] Nitrite Ql (U) Negative Normal Comprehens [facility] Internal Medicine Work Phone: Comment on above: PATIENT WAS FASTINGP ERFORMED BY: DEMETRIUS Omnireliant Ebgxpp0510 [address] RoadDublin [place] [id number] Nitrite Ql (U) Negative Normal Comprehens [facility]ley [facility]; [facility] Work Phone: Nitrite Test strip Ql (U) Negative Normal [facility] Work Phone: pH (U) 7.0 [pH] Normal 5.0-7.5 [facility] Work Phone: Comment on above: PATIENT WAS FASTINGP ERFORMED BY: Omnireliant Elwivr9687 [address] RoadDublin [place] [id number] pH Test strip (U) 7.0 [pH] Normal 5.0-7.5 Compreh ensive Internal Medicine Work Phone: Protein Ql (U) Negative Normal Comprehens ashley Internal Medicine Work Phone: Comment on above: PATIENT WAS FASTINGP ERFORMED BY: LabR[facility] Pyovdz8059 [address] RoadDublin [place] [id number] Protein Ql (U) Negative Normal Comprehens ashley [facility]; [facility] Work Phone: Protein Test strip Ql (U) Negative Normal [facility] Work Phone: Specific gravity Relative Density (U) 1.006 1 Normal 1.005-1.03 0 [facility] Work Phone: Comment on above: PATIENT WAS FASTINGP ERFORMED BY: [facility] Ibxejn3242 Varg[address] RoadDublin [place] [id number] Urobilinogen (U) [Mass/Vol] 0.2 mg/dL Normal 0.2-1.0 [facility]; [facility] Work Phone: Urobilinogen Test strip mass conc (U) 0.2 mg/dL Normal 0.2-1.0 Comprehensiv e Internal Medicine Work Phone: Comment on above: PATIENT WAS FASTINGP ERFORMED BY: [facility]6[address] [facility] [id number] PAP I-G HPV Hi RiskOrdered B y: Gas Fitter on 09-06-2015 PAP I-G HPV Hi Risk Comment Normal Compr [facility] Internal Medicine Work Phone: Comment on above: This liquid based Th inPrep(R) pap test was screened withthe use of an image guided system. Agustina Dong Cytot echnologist (ASCP) Satisfactory for cipriano luation. Endocervical and/or squamous metaplasticcells (endocervical component) are present. NEGATIVE FOR INTRAEP ITHELIAL LESION AND MALIGNANCY.CELLULAR CHANGES ASSOCIATED WITH ATROPHY AND INFLAMMATION ARE PRESENT. The Pap smear is a s creening test designed to aid in thedetection of premalignant and malignant conditions of theuterine cervix. It is not a diagnostic procedure andshould not be used as the sole means of detecting cervicalcancer. Both false-positive and false-negative reports dooccur. PAP I-G HPV Hi Risk . Normal [facility] Internal Medicine Work Phone: PAP I-G HPV Hi Risk Negative Normal [facility] Internal Medicine Work Phone: Comment on above: This high-risk HPV t est detects thirteen high-risk types(16/18/31/33/35/39/45/51/52/56/58/59/68) withoutdifferentiation.Performed at: [address] [id number] Director: Franci Doe MD, Phone: [phone] at: =[address] [id number] Director: Franci Doe MD, Phone: [phone] Blood Glucose , Office ([phone])Ordered By: Santos Child on 04-20-2015 Glucose Glucometer molar conc (BldC) 89 1 Normal [facility] Work Phone: HgA1C , Office ([phone])Ordere d By: Santos Child on 04-20-2015 Hemoglobin A1c/Hemoglobin.total mass fraction (Bld) 5.9 % Normal 4.6 - 7.1 Comprehensiv e Internal Medicine Work Phone: CALCIFIDIOL ([id number]) VIT D 25 Ordered By: Gas Fitter on 04-14-2015 25-Hydroxyvitamin D2+25-Hydroxyvitamin D3 mass conc 60.5 ng/mL Normal 30.0-100.0 [facility] Work Phone: Comment on above: Vitamin D deficiency has been defined by the [place] ofMedicine and an Endocrine Society practice guideline as alevel of serum 25-OH vitamin D less than 20 ng/mL (1,2).The Endocrine Society went on to further define vitamin Dinsufficiency as a level between 21 and 29 ng/mL (2).1. IOM ([place] of Medicine). 2010. Dietary reference intakes for calcium and D. [place]: The National Academies Press.2. Néstor MF, Jorge NC, Justus ZHOU, et al. Evaluation, treatment, and prevention of vitamin D deficiency: an Endocrine Society clinical practice guideline. JCEM. 2010; 96(7):1911-30. PATIENT WAS FASTINGP ERFORMED BY: [facility] [email or web address] ([employer]) [place] [id number] CBC W/AUTO DIFF WBC ([id number])O rdered By: Gas Fitter on 04-14-2015 Basophils (Bld) [#/Vol] 0.0 {x10E3/uL} Normal 0.0-0.2 [facility] Work Phone: Comment on above: PATIENT WAS FASTINGP ERFORMED BY: [facility]Ag[facility] [id number] Information: [id number] Basophils (Bld) [#/Vol] 0.0 10*3/uL Normal 0.0-0.2 [facility]; [facility] Work Phone: Basophils Auto #/vol (Bld) 0.0 {x10E3/uL} Normal 0.0-0.2 [facility] Work Phone: Basophils/100 WBC (Bld) 0 % Normal [facility] Work Phone: Comment on above: PATIENT WAS FASTINGP ERFORMED BY: [place] [id number] [facility] [id number] Information: [id number] Basophils/100 WBC Auto (Bld) 0 % Normal [facility] Work Phone: Eosinophils (Bld) [#/Vol] 0.2 {x10E3/uL} Normal 0.0-0.4 [facility] Work Phone: Comment on above: PATIENT WAS FASTINGP ERFORMED BY: DEMETRIUS [address] [id number] Information: [id number] Eosinophils (Bld) [#/Vol] 0.2 10*3/uL Normal 0.0-0.4 [facility]; [facility] Work Phone: Eosinophils Auto #/vol (Bld) 0.2 {x10E3/uL} Normal 0.0-0.4 [facility] Work Phone: Eosinophils/100 WBC (Bld) 2 % Normal [facility] Work Phone: Comment on above: PATIENT WAS FASTINGP ERFORMED BY: [place] [id number] [facility] [id number] Information: [id number] Eosinophils/100 WBC Auto (Bld) 2 % Normal [facility] Work Phone: Erythrocyte distribution width (RBC) [Ratio] 13.1 % Normal 12.3-15.4 [facility] Work Phone: Comment on above: PATIENT WAS FASTINGP ERFORMED BY: [place] [id number] [facility] [id number] Information: [id number] Erythrocyte distribution width Auto Ratio (RBC) 13.1 % Normal 12.3-15.4 [facility] Work Phone: Hematocrit (Bld) [Volume fraction] 42.8 % Normal 34.0-46.6 [facility] Work Phone: Comment on above: PATIENT WAS FASTINGP ERFORMED BY: DEMETRIUS Morillo6370 [facility] [id number] Information: [id number] Hematocrit Auto Volume Fraction (Bld) 42.8 % Normal 34.0-46.6 [facility] Internal Medicine Work Phone: Hemoglobin mass conc (Bld) 14.5 g/dL Normal 11.1-15.9 [facility] Work Phone: Comment on above: PATIENT WAS FASTINGP ERFORMED BY: DEMETRIUS Morillo6370 [facility] [id number] Information: [id number] Immature granulocytes #/vol (Bld) 0.0 {x10E3/uL} Normal 0.0-0.1 [facility] Work Phone: Comment on above: PATIENT WAS FASTINGP ERFORMED BY: DEMETRIUS Morillo6370 [facility] [id number] Information: [id number] Immature granulocytes (Bld) [#/Vol] 0.0 10*3/uL Normal 0.0-0.1 [facility]; [facility] Work Phone: Immature granulocytes/100 WBC (Bld) 0 % Normal [facility] Work Phone: Comment on above: PATIENT WAS FASTINGP ERFORMED BY: DEMETRIUS [facility] HospitalGreg Wzzyfz2377 [facility] [id number] Information: [id number] Lymphocytes (Bld) [#/Vol] 4.0 {x10E3/uL} Abnormal 0.7-3.1 [facility] Work Phone: Comment on above: PATIENT WAS FASTINGP ERFORMED BY: DEMETRIUS LabCoThe Memorial Hospital of Salem CountyHolumu5590 [facility] [id number] Information: [id number] Lymphocytes (Bld) [#/Vol] 4.0 10*3/uL Abnormal 0.7-3.1 [facility]; [facility] Work Phone: Lymphocytes Auto #/vol (Bld) 4.0 {x10E3/uL} Abnormal 0.7-3.1 [facility] Work Phone: Lymphocytes/100 WBC (Bld) 48 % Normal [facility] Work Phone: Comment on above: PATIENT WAS FASTINGP ERFORMED BY: [place] 7062870 [facility] [id number] Information: [id number] Lymphocytes/100 WBC Auto (Bld) 48 % Normal [facility] Work Phone: MCH (RBC) [Entitic mass] 30.3 pg Normal 26.6-33.0 [facility] Work Phone: Comment on above: PATIENT WAS FASTINGP ERFORMED BY: [place] 7062870 [facility] [id number] Information: [id number] MCH Auto Entitic mass (RBC) 30.3 pg Normal 26.6-33.0 [facility] Work Phone: MCHC (RBC) [Mass/Vol] 33.9 g/dL Normal 31.5-35.7 [facility] prehensive Internal Medicine Work Phone: Comment on above: PATIENT WAS FASTINGP ERFORMED BY: [place] [id number] [facility] [id number] Information: [id number] MCHC Auto mass conc (RBC) 33.9 g/dL Normal 31.5-35.7 [facility] Internal Medicine Work Phone: MCV (RBC) [Entitic vol] 90 fL Normal 79-97 [facility] Work Phone: Comment on above: PATIENT WAS FASTINGP ERFORMED BY: [address] [id number] Information: [id number] MCV Auto Entitic volume (RBC) 90 fL Normal 79-97 [facility] Work Phone: Monocytes (Bld) [#/Vol] 0.4 {x10E3/uL} Normal 0.1-0.9 [facility] Work Phone: Comment on above: PATIENT WAS FASTINGP ERFORMED BY: [place] 7062870 [facility] [id number] Information: [id number] Monocytes (Bld) [#/Vol] 0.4 10*3/uL Normal 0.1-0.9 [facility]; [facility] Work Phone: Monocytes Auto #/vol (Bld) 0.4 {x10E3/uL} Normal 0.1-0.9 [facility] Work Phone: Monocytes/100 WBC (Bld) 5 % Normal [facility] Work Phone: Comment on above: PATIENT WAS FASTINGP ERFORMED BY: [facility]6370 [facility] [id number] Information: [id number] Monocytes/100 WBC Auto (Bld) 5 % Normal [facility] Work Phone: Neutrophils (Bld) [#/Vol] 3.7 {x10E3/uL} Normal 1.4-7.0 [facility] Work Phone: Comment on above: PATIENT WAS FASTINGP ERFORMED BY: [facility]6370 [facility] [id number] Information: [id number] Neutrophils (Bld) [#/Vol] 3.7 10*3/uL Normal 1.4-7.0 [facility]; [facility] Work Phone: Neutrophils Auto #/vol (Bld) 3.7 {x10E3/uL} Normal 1.4-7.0 [facility] Work Phone: Neutrophils/100 WBC (Bld) 45 % Normal [facility] Work Phone: Comment on above: PATIENT WAS FASTINGP ERFORMED BY: DEMETRIUS Stacy70 [facility] [id number] Information: [id number] Neutrophils/100 WBC Auto (Bld) 45 % Normal [facility] Work Phone: Platelets (Bld) [#/Vol] 289 {x10E3/uL} Normal 150-379 [facility] Work Phone: Comment on above: PATIENT WAS FASTINGP ERFORMED BY: DEMETRIUS [address] [id number] Information: [id number] Platelets (Bld) [#/Vol] 289 10*3/uL Normal 150-379 [facility]; [facility] Work Phone: Platelets Auto #/vol (Bld) 289 {x10E3/uL} Normal 150-379 [facility] Work Phone: RBC (Bld) [#/Vol] 4.78 {x10E6/uL} Normal 3.77-5.28 [facility] Internal Medicine Work Phone: Comment on above: PATIENT WAS FASTINGP ERFORMED BY: DEMETRIUS Konglin6370 [facility] [id number] Information: [id number] RBC (Bld) [#/Vol] 4.78 10*6/uL Normal 3.77-5.28 [facility] Internal Medicine; [facility] Work Phone: RBC Auto #/vol (Bld) 4.78 {x10E6/uL} Normal 3.77-5.28 [facility] Work Phone: WBC (Bld) [#/Vol] 8.3 {x10E3/uL} Normal 3.4-10.8 [facility] Internal Medicine Work Phone: Comment on above: PATIENT WAS FASTINGP ERFORMED BY: DEMETRIUS [facility] HospitalBen KongRsdiuq[address] [id number] Information: [id number] WBC (Bld) [#/Vol] 8.3 10*3/uL Normal 3.4-10.8 [facility] Internal [facility]; [facility] Work Phone: WBC Auto #/vol (Bld) 8.3 {x10E3/uL} Normal 3.4-10.8 [facility] Work Phone: LIPID PANEL ([id number])Ordered B y: Gas Fitter on 04-14-2015 Cholesterol in HDL mass conc 41 mg/dL Normal [facility] Work Phone: Comment on above: According to ATP-III Guidelines, HDL-C >59 mg/dL is considered anegative risk factor for CHD. PATIENT WAS FASTINGP ERFORMED BY: DEMETRIUS Konglin6370 [facility]axAgAt[facility] [id number] Cholesterol in LDL mass conc 69 mg/dL Normal 0-99 [facility] Work Phone: Comment on above: Effective April 17, 2015 the reference interval for LDL Cholesterol Calc will be changing to: 0 - 19 years 0 - 109 >19 years 0 - 99 PATIENT WAS FASTINGP ERFORMED BY: DEMETRIUS Konglin6370 [facility]AgAt[facility] [id number] Cholesterol in LDL/Cholesterol in HDL mass ratio 1.7 {ratio_units} Normal 0.0-3.2 [facility] Work Phone: Comment on above: LDL/HDL Ratio Men Wo men 1/2 Avg.Risk 1.0 1.5 Avg.Risk 3.6 3.2 2X Avg.Risk 6.2 5.0 3X Avg.Risk 8.0 6.1 PATIENT WAS FASTINGP ERFORMED BY: DEMETRIUS RoambiBen KongGgpnlk3828 LoraxAgAt[facility] [id number] Cholesterol in VLDL mass conc 36 mg/dL Normal 5-40 [facility] Work Phone: Comment on above: PATIENT WAS FASTINGP ERFORMED BY: DEMETRIUS RoambiBen Vzncfz7058 [facility]axAgAt[facility] [id number] Cholesterol mass conc 146 mg/dL Normal 100-199 Com prehensive Internal Medicine Work Phone: Comment on above: Effective April 17, 2015 the reference interval for Cholesterol, Total will be changing to: 0 - 19 years 100 - 169 >19 years 100 - 199 PATIENT WAS FASTINGP ERFORMED BY: DEMETRIUS LabBen KongZyfmog0[address] [facility] [id number] Triglyceride mass conc 179 mg/dL Abnormal 0-149 [facility] Work Phone: Comment on above: Effective April 17, 2015 the reference interval for Triglycerides will be changing to: 0 - 9 years 0 - 74 10 - 19 years 0 - 89 >19 years 0 - 149 PATIENT WAS FASTINGP ERFORMED BY: DEMETRIUS LabBen KongYdjzbc4168 [facility] [id number] METABOLIC PANEL, COMPREHENSI VE ([id number])Ordered By: Gas Fitter on 04-14-2015 Albumin mass conc 4.4 g/dL Normal 3.6-4.8 Compreh ensive Internal Medicine Work Phone: Comment on above: PATIENT WAS FASTINGP ERFORMED BY: DEMETRIUS LabBen KongWrxkmv0443 [address] [facility] [id number] Albumin/Globulin mass ratio 1.6 {ratio} Normal 1.1-2.5 [facility] Work Phone: Comment on above: PATIENT WAS FASTINGP ERFORMED BY: DEMETRIUS LabBen Jqovan4552 [facility] [id number] ALP [Catalytic activity/Vol] 85 U/L Normal 39-117 [facility]; [facility] Work Phone: ALP enzyme act/vol 85 [iU]/L Normal 39-117 [facility] Internal Medicine Work Phone: Comment on above: PATIENT WAS FASTINGP ERFORMED BY: DEMETRIUS LabCoroseline Wcxsgi57[address] [facility] [id number] ALT [Catalytic activity/Vol] 25 U/L Normal 0-32 [facility]; [facility] Work Phone: ALT enzyme act/vol 25 [iU]/L Normal 0-32 [facility] Internal Medicine Work Phone: Comment on above: PATIENT WAS FASTINGP ERFORMED BY: DEMETRIUS [facility] Pzfhlu8389 Vargas RoadDublin [place] [id number] AST [Catalytic activity/Vol] 27 U/L Normal 0-40 [facility]; [facility] Work Phone: AST enzyme act/vol 27 [iU]/L Normal 0-40 [facility] Internal Medicine Work Phone: Comment on above: PATIENT WAS FASTINGP ERFORMED BY: CB [facility] Rjtqvr8865 Vargas RoadDublin [place] [id number] Bilirubin mass conc 0.5 mg/dL Normal 0.0-1.2 [facility] Internal Medicine Work Phone: Comment on above: PATIENT WAS FASTINGP ERFORMED BY: DEMETRIUS [facility] Rxvcdz1779 Vargas RoadDublin [place] [id number] Calcium mass conc 9.5 mg/dL Normal 8.7-10.[address] [facility] Internal Medicine Work Phone: Comment on above: PATIENT WAS FASTINGP ERFORMED BY: DEMETRIUS [facility] Oprksj4595 Vargas RoadDublin [place] [id number] Chloride molar conc 102 mmol/L Normal 97-108 [facility] Internal Medicine Work Phone: Comment on above: PATIENT WAS FASTINGP ERFORMED BY: DEMETRIUS [facility] Tfbozw6897 Vargas RoadDublin [place] [id number] CO2 molar conc 23 mmol/L Normal 18-29 [facility] Internal Medicine Work Phone: Comment on above: PATIENT WAS FASTINGP ERFORMED BY: CB [facility] Cfbxft0078 Vargas RoadDublin [place] [id number] Creatinine mass conc 0.77 mg/dL Normal 0.57-1.00 [facility] Internal Medicine Work Phone: Comment on above: PATIENT WAS FASTINGP ERFORMED BY: DEMETRIUS [facility] Ppruba1844 Varg[address] RoadDublin [place] [id number] GFR/1.73 sq M predicted among blacks CKD-EPI vol rate/area (S/P/Bld) 92 mL/min/1.73 Normal Comprehensiv e Internal Medicine Work Phone: Comment on above: PATIENT WAS FASTINGP ERFORMED BY: DEMETRIUS SueBen KongRgthee2123 [facility] [id number] GFR/1.73 sq M predicted among non-blacks CKD-EPI vol rate/area (S/P/Bld) 80 mL/min/1.73 Normal [facility] Work Phone: Comment on above: PATIENT WAS FASTINGP ERFORMED BY: DEMETRIUS LabCo Bdtvaj6916 [facility] [id number] Globulin (S) [Mass/Vol] 2.7 g/dL Normal 1.5-4.5 [facility] Work Phone: Comment on above: PATIENT WAS FASTINGP ERFORMED BY: DEMETRIUS RogersRiple[facility] Wqvwwf0369 [facility] [id number] Globulin Calculated mass conc (S) 2.7 g/dL Normal 1.5-4.5 [facility] Work Phone: Glucose mass conc 94 mg/dL Normal 65-99 Compreh ensive Internal Medicine Work Phone: Comment on above: PATIENT WAS FASTINGP ERFORMED BY: DEMETRIUS Konglin6370 [facility] [id number] Potassium molar conc 4.2 mmol/L Normal 3.5-5.2 Comp rehensive Internal Medicine Work Phone: Comment on above: PATIENT WAS FASTINGP ERFORMED BY: DEMETRIUS SueGarden City Hospital6370 [facility] [id number] Protein mass conc 7.1 g/dL Normal 6.0-8.5 Compreh ensive Internal Medicine Work Phone: Comment on above: PATIENT WAS FASTINGP ERFORMED BY: DEMETRIUS LabGarden City Hospital6370 [facility] [id number] Sodium molar conc 142 mmol/L Normal 134-144 Compreh ensive Internal Medicine Work Phone: Comment on above: PATIENT WAS FASTINGP ERFORMED BY: DEMETRIUS LabGarden City Hospital6370 [facility] [id number] Urea nitrogen mass conc 14 mg/dL Normal 8-27 [facility] Work Phone: Comment on above: PATIENT WAS FASTINGP ERFORMED BY: [facility]6370 [facility] [id number] Urea nitrogen/Creatinine mass ratio 18 mg/mg Normal 11-26 [facility] Work Phone: Comment on above: PATIENT WAS FASTINGP ERFORMED BY: LabCoThe [facility] Hospital of Salem CountyBlpcad1649 [facility] [id number] HgA1C , Office ([id number])Ordere d By: Leisa Smith on 12-19-2014 Hemoglobin A1c/Hemoglobin.total mass fraction (Bld) 6.0 % Normal 4.6 - 7.1 Comprehensiv e Internal Medicine Work Phone: CBC With Differential/Platel etOrdered By: Gas Fitter on 12-07-2014 Basophils Auto #/vol (Bld) 0.0 {x10E3/uL} Normal 0.0-0.2 [facility] Work Phone: Basophils/100 WBC Auto (Bld) 0 % Normal [facility] Work Phone: Eosinophils Auto #/vol (Bld) 0.2 {x10E3/uL} Normal 0.0-0.4 [facility] Work Phone: Eosinophils/100 WBC Auto (Bld) 3 % Normal [facility] Work Phone: Erythrocyte distribution width Auto Ratio (RBC) 13.5 % Normal 12.3-15.4 [facility] Work Phone: Hematocrit Auto Volume Fraction (Bld) 41.7 % Normal 34.0-46.6 Comprehens [facility] Internal Medicine Work Phone: Hemoglobin mass conc (Bld) 14.0 g/dL Normal 11.1-15.9 [facility] Work Phone: Immature granulocytes #/vol (Bld) 0.0 {x10E3/uL} Normal 0.0-0.1 [facility] Work Phone: Immature granulocytes/100 WBC (Bld) 0 % Normal [facility] Work Phone: Lymphocytes Auto #/vol (Bld) 3.7 {x10E3/uL} Abnormal 0.7-3.1 [facility] Work Phone: Lymphocytes/100 WBC Auto (Bld) 45 % Normal [facility] Work Phone: MCH Auto Entitic mass (RBC) 30.4 pg Normal 26.6-33.0 [facility] Work Phone: MCHC Auto mass conc (RBC) 33.6 g/dL Normal 31.5-35.7 [facility] Work Phone: MCV Auto Entitic volume (RBC) 91 fL Normal 79-97 [facility] Work Phone: Monocytes Auto #/vol (Bld) 0.4 {x10E3/uL} Normal 0.1-0.9 [facility] Work Phone: Monocytes/100 WBC Auto (Bld) 5 % Normal [facility] Work Phone: Neutrophils Auto #/vol (Bld) 3.8 {x10E3/uL} Normal 1.4-7.0 [facility] Work Phone: Neutrophils/100 WBC Auto (Bld) 47 % Normal [facility] Work Phone: Platelets Auto #/vol (Bld) 327 {x10E3/uL} Normal 150-379 [facility] Work Phone: RBC Auto #/vol (Bld) 4.60 {x10E6/uL} Normal 3.77-5.28 [facility] Work Phone: WBC Auto #/vol (Bld) 8.2 {x10E3/uL} Normal 3.4-10.8 [facility] Work Phone: Comp. Metabolic Panel (14)Or dered By: Gas Fitter on 12-07-2014 Albumin mass conc 4.5 g/dL Normal 3.6-4.8 Compreh ensive Internal Medicine Work Phone: Albumin/Globulin mass ratio 2.1 {ratio} Normal 1.1-2.5 [facility] Work Phone: ALP enzyme act/vol 82 [iU]/L Normal 39-117 [facility] Internal Medicine Work Phone: ALT enzyme act/vol 27 [iU]/L Normal 0-32 [facility] Internal Medicine Work Phone: AST enzyme act/vol 26 [iU]/L Normal 0-40 [facility] Internal Medicine Work Phone: Bilirubin mass conc 0.5 mg/dL Normal 0.0-1.2 Compr ensive Internal Medicine Work Phone: Calcium mass conc 9.7 mg/dL Normal 8.7-10.3 Compre[facility] Internal Medicine Work Phone: Chloride molar conc 99 mmol/L Normal 97-108 Compr [facility] Internal Medicine Work Phone: CO2 molar conc 24 mmol/L Normal 18-29 Comprehens [facility] Internal Medicine Work Phone: Creatinine mass conc 0.78 mg/dL Normal 0.57-1.00 Comp [facility] Work Phone: GFR/1.73 sq M predicted among blacks CKD-EPI vol rate/area (S/P/Bld) 90 mL/min/1.73 Normal Comprehensiv e Internal Medicine Work Phone: GFR/1.73 sq M predicted among non-blacks CKD-EPI vol rate/area (S/P/Bld) 78 mL/min/1.73 Normal [facility] Work Phone: Globulin Calculated mass conc (S) 2.1 g/dL Normal 1.5-4.5 [facility] Internal Medicine Work Phone: Glucose mass conc 103 mg/dL Abnormal 65-99 [facility]pre[facility] Work Phone: Potassium molar conc 4.6 mmol/L Normal 3.5-5.2 Comp [facility] Work Phone: Protein mass conc 6.6 g/dL Normal 6.0-8.5 Compreh ensive Internal Medicine Work Phone: Sodium molar conc 139 mmol/L Normal 134-144 Compreh ensive Internal Medicine Work Phone: Urea nitrogen mass conc 12 mg/dL Normal 8-27 [facility] Work Phone: Urea nitrogen/Creatinine mass ratio 15 mg/mg Normal 11-26 [facility] Work Phone: Lipid Panel With LDL/HDL Rat ioOrdered By: Gas Fitter on 12-07-2014 Cholesterol in HDL mass conc 37 mg/dL Abnormal [facility] Work Phone: Comment on above: According to ATP-III Guidelines, HDL-C >59 mg/dL is considered anegative risk factor for CHD. Cholesterol in LDL mass conc 67 mg/dL Normal 0-99 [facility] Work Phone: Cholesterol in LDL/Cholesterol in HDL mass ratio 1.8 {ratio_units} Normal 0.0-3.2 [facility] Work Phone: Comment on above: LDL/HDL Ratio Men Wo men 1/2 Avg.Risk 1.0 1.5 Avg.Risk 3.6 3.2 2X Avg.Risk 6.2 5.0 3X Avg.Risk 8.0 6.1 Cholesterol in VLDL mass conc 37 mg/dL Normal 5-40 [facility] Work Phone: Cholesterol mass conc 141 mg/dL Normal 100-199 Com prehensive Internal Medicine Work Phone: Triglyceride mass conc 185 mg/dL Abnormal 0-149 [facility] Work Phone: Microalb/Creat Ratio, Randm UrOrdered By: Gas Fitter on 12-07-2014 Albumin DL <= 20 mg/L mass conc (U) 11.4 ug/mL Normal 0.0-17.0 [facility] Work Phone: Albumin/Creatinine mass ratio (U) 35.4 {mg/g_creat} Abnormal 0.0-30.0 [facility] Work Phone: Creatinine mass conc (U) 32.2 mg/dL Normal 15.0-278.0 [facility] Work Phone: Microscopic ExaminationOrder ed By: Gas Fitter on 12-07-2014 Bacteria LM.HPF #/area (Urine sed) Few Normal [facility] Work Phone: Epithelial cells LM.HPF #/area (Urine sed) 0-10 Normal 0 - 10 [facility] Work Phone: Mucus LM Ql (Urine sed) Present Normal [facility] Work Phone: RBC LM.HPF #/area (Urine sed) 0-2 Normal 0 - 2 [facility] Work Phone: WBC LM.HPF #/area (Urine sed) 6-10 Abnormal 0 - 5 [facility] Work Phone: TSHOrdered By: System Manage r on 12-07-2014 Thyrotropin Qn 1.550 {uIU/mL} Normal 0.450-4.50 0 [facility] Work Phone: Urinalysis, RoutineOrdered B y: Gas Fitter on 12-07-2014 Appearance Nom (U) Clear Normal Compre hensive [facility] Medicine Work Phone: Bilirubin Ql (U) Negative Normal Comprehe nsive Internal Medicine Work Phone: Color Nom (U) Yellow Normal Comprehensi ve Internal Medicine Work Phone: Glucose Ql (U) Negative Normal Comprehens [facility] Work Phone: Hemoglobin Test strip Ql (U) Negative Normal [facility] Work Phone: Ketones Ql (U) Negative Normal Comprehens [facility] Work Phone: Leukocyte esterase Test strip Ql (U) 2+ Abnormal [facility] Work Phone: Microscopic observation LM Nom (Urine sed) See below: Normal [facility] Work Phone: Comment on above: Microscopic was calli cated and was performed. Nitrite Test strip Ql (U) Negative Normal [facility] Work Phone: pH Test strip (U) 6.5 [pH] Normal 5.0-7.5 Compreh ensive [facility] Medicine Work Phone: Protein Test strip Ql (U) Negative Normal [facility] Work Phone: Specific gravity Relative Density (U) 1.007 1 Normal 1.005-1.03 0 [facility] Work Phone: Urobilinogen Test strip mass conc (U) 0.2 mg/dL Normal 0.0-1.9 Comprehensiv e [facility] Medicine Work Phone: Vitamin D, 25-HydroxyOrdered By: Gas Fitter on 12-07-2014 25-Hydroxyvitamin D2+25-Hydroxyvitamin D3 mass conc 46.5 ng/mL Normal 30.0-100.0 [facility] Work Phone: Comment on above: Vitamin D deficiency has been defined by the [place] ofMedicine and an Endocrine Society practice guideline as alevel of serum 25-OH vitamin D less than 20 ng/mL (1,2).The Endocrine Society went on to further define vitamin Dinsufficiency as a level between 21 and 29 ng/mL (2).1. IOM ([place] of Medicine). 2010. Dietary reference intakes for calcium and D. [place]: The National Academies Press.2. Néstor MF, Jorge NC, Justus ZHOU, et al. Evaluation, treatment, and prevention of vitamin D deficiency: an Endocrine Society clinical practice guideline. JCEM. 2010; 96(7):1911-30. CBC WITH MANUAL DIFF (82266) Ordered By: Gas Fitter on 04-26-2014 Basophils (Bld) [#/Vol] 0.0 {x10E3/uL} Normal 0.0-0.2 [facility] Work Phone: Comment on above: PATIENT WAS FASTINGP ERFORMED BY: [facility]6[address] [facility] [id number] Basophils (Bld) [#/Vol] 0.0 10*3/uL Normal 0.0-0.2 [facility]; [facility] Work Phone: Basophils Auto #/vol (Bld) 0.0 {x10E3/uL} Normal 0.0-0.2 [facility] Work Phone: Basophils/100 WBC (Bld) 0 % Normal [facility] Work Phone: Comment on above: PATIENT WAS FASTINGP ERFORMED BY: DEMETRIUS [facility] Jkbijx5952 [facility] [id number] Basophils/100 WBC Auto (Bld) 0 % Normal [facility] Work Phone: Eosinophils (Bld) [#/Vol] 0.2 {x10E3/uL} Normal 0.0-0.4 [facility] Work Phone: Comment on above: PATIENT WAS FASTINGP ERFORMED BY: DEMETRIUS [place] [id number] [facility] [id number] Eosinophils (Bld) [#/Vol] 0.2 10*3/uL Normal 0.0-0.4 [facility]; [facility] Work Phone: Eosinophils Auto #/vol (Bld) 0.2 {x10E3/uL} Normal 0.0-0.4 [facility] Work Phone: Eosinophils/100 WBC (Bld) 2 % Normal [facility] Work Phone: Comment on above: PATIENT WAS FASTINGP ERFORMED BY: DEMETRIUS [place] [id number] [facility] [id number] Eosinophils/100 WBC Auto (Bld) 2 % Normal [facility] Work Phone: Erythrocyte distribution width (RBC) [Ratio] 13.3 % Normal 12.3-15.4 [facility] Work Phone: Comment on above: PATIENT WAS FASTINGP ERFORMED BY: DEMETRIUS [place] [id number] [facility] [id number] Erythrocyte distribution width Auto Ratio (RBC) 13.3 % Normal 12.3-15.4 [facility] Work Phone: Hematocrit (Bld) [Volume fraction] 41.1 % Normal 34.0-46.6 [facility] Work Phone: Comment on above: PATIENT WAS FASTINGP ERFORMED BY: DEMETRIUS [place] [id number] [facility] [id number] Hematocrit Auto Volume Fraction (Bld) 41.1 % Normal 34.0-46.6 [facility] Medicine Work Phone: Hemoglobin mass conc (Bld) 13.9 g/dL Normal 11.1-15.9 [facility] Work Phone: Comment on above: PATIENT WAS FASTINGP ERFORMED BY: [facility]6[address] [facility] [id number] Immature granulocytes #/vol (Bld) 0.0 {x10E3/uL} Normal 0.0-0.1 [facility] Work Phone: Comment on above: PATIENT WAS FASTINGP ERFORMED BY: [place] [id number] [facility] [id number] Immature granulocytes (Bld) [#/Vol] 0.0 10*3/uL Normal 0.0-0.1 [facility]; [facility] Work Phone: Immature granulocytes/100 WBC (Bld) 0 % Normal [facility] Work Phone: Comment on above: PATIENT WAS FASTINGP ERFORMED BY: [facility]6[address] [facility] [id number] Lymphocytes (Bld) [#/Vol] 3.6 {x10E3/uL} Abnormal 0.7-3.1 [facility] Work Phone: Comment on above: PATIENT WAS FASTINGP ERFORMED BY: [facility]6[address] [facility] [id number] Lymphocytes (Bld) [#/Vol] 3.6 10*3/uL Abnormal 0.7-3.1 [facility]; [facility] Work Phone: Lymphocytes Auto #/vol (Bld) 3.6 {x10E3/uL} Abnormal 0.7-3.1 [facility] Work Phone: Lymphocytes/100 WBC (Bld) 49 % Normal [facility] Work Phone: Comment on above: PATIENT WAS FASTINGP ERFORMED BY: [place] [address] [facility] [id number] Lymphocytes/100 WBC Auto (Bld) 49 % Normal [facility] Work Phone: MCH (RBC) [Entitic mass] 29.5 pg Normal 26.6-33.0 [facility] Internal Medicine Work Phone: Comment on above: PATIENT WAS FASTINGP ERFORMED BY: [place] [id number] [facility] [id number] MCH Auto Entitic mass (RBC) 29.5 pg Normal 26.6-33.0 [facility] Internal Medicine Work Phone: MCHC (RBC) [Mass/Vol] 33.8 g/dL Normal 31.5-35.7 [facility] Internal Medicine Work Phone: Comment on above: PATIENT WAS FASTINGP ERFORMED BY: [address] [id number] MCHC Auto mass conc (RBC) 33.8 g/dL Normal 31.5-35.7 [facility] Internal Medicine Work Phone: MCV (RBC) [Entitic vol] 87 fL Normal 79-97 [facility] Internal Medicine Work Phone: Comment on above: PATIENT WAS FASTINGP ERFORMED BY: [place] [id number] [facility] [id number] MCV Auto Entitic volume (RBC) 87 fL Normal 79-97 [facility] Internal Medicine Work Phone: Monocytes (Bld) [#/Vol] 0.4 {x10E3/uL} Normal 0.1-0.9 [facility] Internal Medicine Work Phone: Comment on above: PATIENT WAS FASTINGP ERFORMED BY: [place] [id number] [facility] [id number] Monocytes (Bld) [#/Vol] 0.4 10*3/uL Normal 0.1-0.9 [facility]; [facility] Work Phone: Monocytes Auto #/vol (Bld) 0.4 {x10E3/uL} Normal 0.1-0.9 [facility] Work Phone: Monocytes/100 WBC (Bld) 5 % Normal [facility] Work Phone: Comment on above: PATIENT WAS FASTINGP ERFORMED BY: DEMETRIUS [place] [id number] [facility] [id number] Monocytes/100 WBC Auto (Bld) 5 % Normal [facility] Work Phone: Neutrophils (Bld) [#/Vol] 3.4 {x10E3/uL} Normal 1.4-7.0 [facility] Work Phone: Comment on above: PATIENT WAS FASTINGP ERFORMED BY: DEMETRIUS [place] [id number] [facility] [id number] Neutrophils (Bld) [#/Vol] 3.4 10*3/uL Normal 1.4-7.0 [facility]; [facility] Work Phone: Neutrophils Auto #/vol (Bld) 3.4 {x10E3/uL} Normal 1.4-7.0 [facility] Work Phone: Neutrophils/100 WBC (Bld) 44 % Normal [facility] Work Phone: Comment on above: PATIENT WAS FASTINGP ERFORMED BY: [place] [id number] [facility] [id number] Neutrophils/100 WBC Auto (Bld) 44 % Normal [facility] Work Phone: Platelets (Bld) [#/Vol] 290 {x10E3/uL} Normal 150-379 [facility] Work Phone: Comment on above: PATIENT WAS FASTINGP ERFORMED BY: [place] [id number] [facility] [id number] Platelets (Bld) [#/Vol] 290 10*3/uL Normal 150-379 [facility]; [facility] Work Phone: Platelets Auto #/vol (Bld) 290 {x10E3/uL} Normal 150-379 [facility] Work Phone: RBC (Bld) [#/Vol] 4.71 {x10E6/uL} Normal 3.77-5.28 [facility] Work Phone: Comment on above: PATIENT WAS FASTINGP ERFORMED BY: DEMETRIUS Morillo6[address] [facility] [id number] RBC (Bld) [#/Vol] 4.71 10*6/uL Normal 3.77-5.28 [facility]; [facility] Work Phone: RBC Auto #/vol (Bld) 4.71 {x10E6/uL} Normal 3.77-5.28 [facility] Work Phone: WBC (Bld) [#/Vol] 7.5 {x10E3/uL} Normal 3.4-10.8 [facility] Internal Medicine Work Phone: Comment on above: PATIENT WAS FASTINGP ERFORMED BY: DEMETRIUS Konglin6[address] [facility] [id number] WBC (Bld) [#/Vol] 7.5 10*3/uL Normal 3.4-10.8 [facility]; [facility] Work Phone: WBC Auto #/vol (Bld) 7.5 {x10E3/uL} Normal 3.4-10.8 [facility] Work Phone: LIPID PANEL ([id number])Ordered B y: Gas Fitter on 04-26-2014 Cholesterol in HDL mass conc 34 mg/dL Abnormal [facility] Work Phone: Comment on above: According to ATP-III Guidelines, HDL-C >59 mg/dL is considered anegative risk factor for CHD. PATIENT WAS FASTINGP ERFORMED BY: DEMETRIUS Konglin6[address] [facility] [id number] Cholesterol in LDL mass conc 35 mg/dL Normal 0-99 [facility] Work Phone: Comment on above: PATIENT WAS FASTINGP ERFORMED BY: DEMETRIUS Konglin6[address] [facility] [id number] Cholesterol in LDL/Cholesterol in HDL mass ratio 1.0 {ratio_units} Normal 0.0-3.2 [facility] Work Phone: Comment on above: LDL/HDL Ratio Men Wo men 1/2 Avg.Risk 1.0 1.5 Avg.Risk 3.6 3.2 2X Avg.Risk 6.2 5.0 3X Avg.Risk 8.0 6.1 PATIENT WAS FASTINGP ERFORMED BY: DEMETRIUS LabBen KongZlqhah5030 [address] [employer] HealthcareAt[facility] [id number] Cholesterol in VLDL mass conc 40 mg/dL Normal 5-40 [facility] Work Phone: Comment on above: PATIENT WAS FASTINGP ERFORMED BY: DEMETRIUS LabBen KongCtrolq3850 [facility] [employer] HealthcareAt[facility] [id number] Cholesterol mass conc 109 mg/dL Normal 100-199 [facility] prehensive Internal Medicine Work Phone: Comment on above: PATIENT WAS FASTINGP ERFORMED BY: DEMETRIUS LabBen KongRhtdrq6602 [employer] [employer] HealthcareAt[facility] [id number] Triglyceride mass conc 199 mg/dL Abnormal 0-149 [facility] Work Phone: Comment on above: PATIENT WAS FASTINGP ERFORMED BY: DEMETRIUS Konglin6370 [facility] HealthcareAt[facility] [id number] METABOLIC PANEL, COMPREHENSI VE ([id number])Ordered By: Gas Fitter on 04-26-2014 Albumin mass conc 4.5 g/dL Normal 3.6-4.8 Compreh ensive [facility] Medicine Work Phone: Comment on above: PATIENT WAS FASTINGP ERFORMED BY: DEMETRIUS LabCoroseline KongWpxnxy3933 [address] CultureIQNov[facility] [id number] Albumin/Globulin mass ratio 2.1 {ratio} Normal 1.1-2.5 [facility] Work Phone: Comment on above: PATIENT WAS FASTINGP ERFORMED BY: DEMETRIUS LabBen KongPapuqp1804 [address] CultureIQNovant [facility] [id number] ALP [Catalytic activity/Vol] 78 U/L Normal 39-117 [facility]; [facility] Work Phone: ALP enzyme act/vol 78 [iU]/L Normal 39-117 [facility] Work Phone: Comment on above: PATIENT WAS FASTINGP ERFORMED BY: DEMETRIUS SueBen KongZkflcq6293 Vargas RoadDublin [place] [id number] ALT [Catalytic activity/Vol] 30 U/L Normal 0-32 [facility]; [facility] Internal [facility] Work Phone: ALT enzyme act/vol 30 [iU]/L Normal 0-32 [facility] Work Phone: Comment on above: PATIENT WAS FASTINGP ERFORMED BY: DEMETRIUS Shel[place] Albeju4966 Vargas RoadDublin [place] [id number] AST [Catalytic activity/Vol] 27 U/L Normal 0-40 [facility]; [facility] Internal [facility] Work Phone: AST enzyme act/vol 27 [iU]/L Normal 0-40 [facility] Internal Medicine Work Phone: Comment on above: PATIENT WAS FASTINGP ERFORMED BY: DEMETRIUS Shelton Czbozy1168 Varg[address] Roadblin [place] [id number] Bilirubin mass conc 0.4 mg/dL Normal 0.0-1.2 Compr ensive Internal Medicine Work Phone: Comment on above: PATIENT WAS FASTINGP ERFORMED BY: DEMETRIUS Konglin6370 [address] Roadblin [place] [id number] Calcium mass conc 9.7 mg/dL Normal 8.6-10.2 Compreh ensive Internal Medicine Work Phone: Comment on above: PATIENT WAS FASTINGP ERFORMED BY: DEMETRIUS RogersRipley [facility] Hospital Nqjbgw6541 Varg[address] RoadDublin [place] [id number] Chloride molar conc 102 mmol/L Normal 97-108 Compr ensive Internal Medicine Work Phone: Comment on above: PATIENT WAS FASTINGP ERFORMED BY: DEMETRIUS LabRipley County Memorial Hospital Kvpvqf0314 [address] RoadDublin [place] [id number] CO2 molar conc 24 mmol/L Normal 18-29 Comprehens ashley [facility] Work Phone: Comment on above: PATIENT WAS FASTINGP ERFORMED BY: DEMETRIUS [facility] Smlqkl9032 [address] [facility] [id number] Creatinine mass conc 0.72 mg/dL Normal 0.57-1.00 Comp rehensive Internal Medicine Work Phone: Comment on above: PATIENT WAS FASTINGP ERFORMED BY: LabCo Xqqvaj6352 [address] [facility] [id number] GFR/1.73 sq M predicted among blacks CKD-EPI vol rate/area (S/P/Bld) 100 mL/min/1.73 Normal Comprehensiv e Internal Medicine Work Phone: Comment on above: PATIENT WAS FASTINGP ERFORMED BY: [facility]Garden [facility]6[address] [facility] [id number] GFR/1.73 sq M predicted among non-blacks CKD-EPI vol rate/area (S/P/Bld) 87 mL/min/1.73 Normal [facility] Work Phone: Comment on above: PATIENT WAS FASTINGP ERFORMED BY: LabGarden [facility] Hospital6[address] [facility] [id number] Globulin (S) [Mass/Vol] 2.1 g/dL Normal 1.5-4.5 [facility] Work Phone: Comment on above: PATIENT WAS FASTINGP ERFORMED BY: LabRiple[facility] Elltrq2750 [facility] [id number] Globulin Calculated mass conc (S) 2.1 g/dL Normal 1.5-4.5 [facility] Work Phone: Glucose mass conc 89 mg/dL Normal 65-99 Compreh ensive Internal Medicine Work Phone: Comment on above: PATIENT WAS FASTINGP ERFORMED BY: LabCo Pikgqj3856 [address] [facility] [id number] Potassium molar conc 4.4 mmol/L Normal 3.5-5.2 Comp rehensive Internal Medicine Work Phone: Comment on above: PATIENT WAS FASTINGP ERFORMED BY: LabCo Vsqkej7731 [facility] [id number] Protein mass conc 6.6 g/dL Normal 6.0-8.5 Compreh ensive Internal Medicine Work Phone: Comment on above: PATIENT WAS FASTINGP ERFORMED BY: DEMETRIUS SueBen KongXaatha5821 [facility] [id number] Sodium molar conc 142 mmol/L Normal 134-144 Compreh ensive Internal Medicine Work Phone: Comment on above: PATIENT WAS FASTINGP ERFORMED BY: DEMETRIUS Konglin6[address] [facility] [id number] Urea nitrogen mass conc 10 mg/dL Normal 8-27 [facility] Work Phone: Comment on above: PATIENT WAS FASTINGP ERFORMED BY: DEMETRIUS Konglin6[address] [facility] [id number] Urea nitrogen/Creatinine mass ratio 14 mg/mg Normal 11- [facility] Work Phone: Comment on above: PATIENT WAS FASTINGP ERFORMED BY: DEMETRIUS Konglin6370 [facility] [id number] MICROALBUMINOrdered By: Syst em Chip Separator on 04-26-2014 Albumin DL <= 20 mg/L mass conc (U) 13.6 ug/mL Normal 0.0-17.0 [facility] Work Phone: Comment on above: PATIENT WAS FASTINGP ERFORMED BY: DEMETRIUS Konglin6[address] [facility] [id number] Albumin/Creatinine mass ratio (U) 53.8 {mg/g_creat} Abnormal 0.0-30.0 [facility] Work Phone: Comment on above: PATIENT WAS FASTINGP ERFORMED BY: DEMETRIUS LabGreg Mxpizv1025 [facility] [id number] Creatinine mass conc (U) 25.3 mg/dL Normal 15.0-278.0 [facility] Work Phone: Comment on above: PATIENT WAS FASTINGP ERFORMED BY: DEMETRIUS Konglin6370 [facility] [id number] Microscopic ExaminationOrder ed By: Gas Fitter on 04-26-2014 Bacteria LM.HPF #/area (Urine sed) None seen Normal [facility] Work Phone: Epithelial cells LM.HPF #/area (Urine sed) 0-10 Normal 0 - 10 [facility] Work Phone: RBC LM.HPF #/area (Urine sed) 0-2 Normal 0 - 2 [facility] Work Phone: WBC LM.HPF #/area (Urine sed) 0-5 Normal 0 - 5 [facility] Work Phone: TSH ([id number])Ordered By: Serene m Chip Separator on 04-26-2014 Thyrotropin Qn 1.390 {uIU/mL} Normal 0.450-4.50 0 [facility] Work Phone: Comment on above: PATIENT WAS FASTINGP ERFORMED BY: DEMETRIUS [facility] Blhpuk9170 [address] RoadDublin [place] [id number] URINALYSIS, W/ MICRO ([id number]) Ordered By: Gas Fitter on 04-26-2014 Appearance Nom (U) Clear Normal Compre hensive Internal Medicine Work Phone: Comment on above: PATIENT WAS FASTINGP ERFORMED BY: DEMETRIUS [facility] Nukmrz5218 [address] RoadDublin [place] [id number] Bilirubin Ql (U) Negative Normal Comprehe nsive Internal Medicine Work Phone: Comment on above: PATIENT WAS FASTINGP ERFORMED BY: CB [facility] Yjawtj8744 [address] RoadDublin [place] [id number] Bilirubin Ql (U) Negative Normal Comprehe nsive Internal Medicine; [facility] Work Phone: Color Nom (U) Yellow Normal Comprehensi ve Internal Medicine Work Phone: Comment on above: PATIENT WAS FASTINGP ERFORMED BY: CB [facility] Mivwvi1974 [address] RoadDublin [place] [id number] Glucose Ql (U) Negative Normal Comprehens ashley [facility] Work Phone: Comment on above: PATIENT WAS FASTINGP ERFORMED BY: CB [facility] Vtxujk4555 [address] RoadDublin [place] [id number] Glucose Ql (U) Negative Normal Comprehens [facility]; [facility] Work Phone: Hemoglobin Ql (U) Negative Normal Compreh ensive Internal Medicine Work Phone: Comment on above: PATIENT WAS FASTINGP ERFORMED BY: DEMETRIUS [facility] Xyttgj9600 [address] RoadDublin [place] [id number] Hemoglobin Ql (U) Negative Normal Compreh ensive Internal Medicine; [facility] Work Phone: Hemoglobin Test strip Ql (U) Negative Normal [facility] Work Phone: Ketones Ql (U) Negative Normal Comprehens ashley [facility] Work Phone: Comment on above: PATIENT WAS FASTINGP ERFORMED BY: DEMETRIUS [facility] Etqbak9431 [address] RoadDublin [place] [id number] Ketones Ql (U) Negative Normal Comprehens [facility]ley [facility]; [facility] Work Phone: Leukocyte esterase Test strip Ql (U) 2+ Abnormal [facility] Work Phone: Comment on above: PATIENT WAS FASTINGP ERFORMED BY: DEMETRIUS LabRipley [facility] Ncnnpt7100 [address] RoadDublin [place] [id number] Microscopic observation LM Nom (Urine sed) See below: Normal [facility] Work Phone: Comment on above: Microscopic was calli cated and was performed. PATIENT WAS FASTINGP ERFORMED BY: LabCo Iclgfc7480 [address] RoadDublin [place] [id number] Nitrite Ql (U) Negative Normal Comprehens ashley [facility] Work Phone: Comment on above: PATIENT WAS FASTINGP ERFORMED BY: [facility] Bdjmow8367 [address] RoadDublin [place] [id number] Nitrite Ql (U) Negative Normal Comprehens [facility]; [facility] Work Phone: Nitrite Test strip Ql (U) Negative Normal [facility] Work Phone: pH (U) 7.5 [pH] Normal 5.0-7.5 [facility] Work Phone: Comment on above: PATIENT WAS FASTINGP ERFORMED BY: DEMETRIUS Omnireliant Utwnvj2866 [address] [employer]on[address] Healthcareblin [place] [id number] pH Test strip (U) 7.5 [pH] Normal 5.0-7.5 Compreh ensive Internal Medicine Work Phone: Protein Ql (U) Negative Normal Comprehens ashley [facility] Work Phone: Comment on above: PATIENT WAS FASTINGP ERFORMED BY: LabSaint Luke'S Health SystemUxvvtv0241 V[address] RoadDublin [place] [id number] Protein Ql (U) Negative Normal Comprehens ashley [facility]; [facility] Work Phone: Protein Test strip Ql (U) Negative Normal [facility] Work Phone: Specific gravity Relative Density (U) 1.007 1 Normal 1.005-1.03 0 [facility] Work Phone: Comment on above: PATIENT WAS FASTINGP ERFORMED BY: LabLP33.TVNew Mexico Behavioral Health Institute at Las VegasOhpsgz1651 [address] CultureIQGranville Medical Centerin [place] [id number] Urobilinogen (U) [Mass/Vol] 0.2 mg/dL Normal 0.0-1.9 [facility]; [facility] Work Phone: Urobilinogen Test strip mass conc (U) 0.2 mg/dL Normal 0.0-1.9 Comprehensiv e Internal Medicine Work Phone: Comment on above: PATIENT WAS FASTINGP ERFORMED BY: Omnireliant Hbrhma30[address] [facility] Hospitalin [place] [id number] Vitamin D Hydroxy ([id number])Ord ered By: Gas Fitter on 04-26-2014 25-Hydroxyvitamin D2+25-Hydroxyvitamin D3 mass conc 35.0 ng/mL Normal 30.0-100.0 [facility] Work Phone: Comment on above: Vitamin D deficiency has been defined by the [place] ofMedicine and an Endocrine Society practice guideline as alevel of serum 25-OH vitamin D less than 20 ng/mL (1,2).The Endocrine Society went on to further define vitamin Dinsufficiency as a level between 21 and 29 ng/mL (2).1. IOM ([place] of [employer]). 2010. Dietary reference intakes for calcium and D. [place]: The National Academies Press.2. Jorge Snider, Justus ZHOU, et al. Evaluation, treatment, and prevention of vitamin D deficiency: an Endocrine Society clinical practice guideline. JCEM. 2010; 96(7):1911-30. PATIENT WAS FASTINGP ERFORMED BY: [facility] [employer] ([employer]) [place] [id number] CALCIFIDIOL (82088) VIT D 25 Ordered By: Gas Fitter on 04-13-2013 25-Hydroxyvitamin D2+25-Hydroxyvitamin D3 mass conc 40.1 ng/mL Normal 30.0-100.0 [facility] Work Phone: Comment on above: Vitamin D deficiency has been defined by the [place] ofMedicine and an Endocrine Society practice guideline as alevel of serum 25-OH vitamin D less than 20 ng/mL (1,2).The Endocrine Society went on to further define vitamin Dinsufficiency as a level between 21 and 29 ng/mL (2).1. IOM ([place] of Medicine). 2010. Dietary reference intakes for calcium and D. [place]: The National Academies Press.2. Néstor ONEILL, Jorge IVY, Justus ZHOU, et al. Evaluation, treatment, and prevention of vitamin D deficiency: an Endocrine Society clinical practice guideline. JCEM. 2010; 96(7):1911-30. PATIENT WAS FASTINGP ERFORMED BY: ObserveIT6370 [facility]AgAt[facility] [id number] CBC with manual diff ([id number]) Ordered By: Gas Fitter on 04-13-2013 Basophils (Bld) [#/Vol] 0.0 {x10E3/uL} Normal 0.0-0.2 [facility] Work Phone: Comment on above: PATIENT WAS FASTINGP ERFORMED BY: ObserveIT6370 LoraxAgAtrium Health [facility] [id number] Information: [id number] Basophils (Bld) [#/Vol] 0.0 10*3/uL Normal 0.0-0.2 [facility]; [facility] Work Phone: Basophils Auto #/vol (Bld) 0.0 {x10E3/uL} Normal 0.0-0.2 [facility] Work Phone: Basophils/100 WBC (Bld) 0 % Normal 0-3 [facility] Work Phone: Comment on above: PATIENT WAS FASTINGP ERFORMED BY: DEMETRIUS Omnireliantroseline Efkpdn8086 [facility] [id number] Information: [id number] Basophils/100 WBC Auto (Bld) 0 % Normal 0-3 [facility] Work Phone: Eosinophils (Bld) [#/Vol] 0.2 {x10E3/uL} Normal 0.0-0.4 [facility] Work Phone: Comment on above: PATIENT WAS FASTINGP ERFORMED BY: DEMETRIUS Omnireliantroseline Emtknx0954 [facility] [id number] Information: [id number] Eosinophils (Bld) [#/Vol] 0.2 10*3/uL Normal 0.0-0.4 [facility]; [facility] Work Phone: Eosinophils Auto #/vol (Bld) 0.2 {x10E3/uL} Normal 0.0-0.4 [facility] Work Phone: Eosinophils/100 WBC (Bld) 3 % Normal 0-5 [facility] Work Phone: Comment on above: PATIENT WAS FASTINGP ERFORMED BY: DEMETRIUS OmnireliantThe Memorial Hospital of Salem CountyZedesd0738 [facility] [id number] Information: [id number] Eosinophils/100 WBC Auto (Bld) 3 % Normal 0-5 [facility] Work Phone: Erythrocyte distribution width (RBC) [Ratio] 13.6 % Normal 12.3-15.4 [facility] Work Phone: Comment on above: PATIENT WAS FASTINGP ERFORMED BY: DEMETRIUS OmnireliantKimberly Ville 8076070 [facility] [id number] Information: [id number] Erythrocyte distribution width Auto Ratio (RBC) 13.6 % Normal 12.3-15.4 [facility] Work Phone: Hematocrit (Bld) [Volume fraction] 41.2 % Normal 34.0-46.6 [facility] Work Phone: Comment on above: PATIENT WAS FASTINGP ERFORMED BY: [place] 7062870 [facility] [id number] Information: [id number] Hematocrit Auto Volume Fraction (Bld) 41.2 % Normal 34.0-46.6 [facility] Internal Medicine Work Phone: Hemoglobin mass conc (Bld) 13.7 g/dL Normal 11.1-15.9 [facility] Work Phone: Comment on above: PATIENT WAS FASTINGP ERFORMED BY: [place] [id number] [facility] [id number] Information: [id number] Immature granulocytes #/vol (Bld) 0.0 {x10E3/uL} Normal 0.0-0.1 [facility] Work Phone: Comment on above: PATIENT WAS FASTINGP ERFORMED BY: [facility]6370 [facility] [id number] Information: [id number] Immature granulocytes (Bld) [#/Vol] 0.0 10*3/uL Normal 0.0-0.1 [facility]; [facility] Work Phone: Immature granulocytes/100 WBC (Bld) 0 % Normal 0-2 [facility] Work Phone: Comment on above: PATIENT WAS FASTINGP ERFORMED BY: [facility]6370 [facility] [id number] Information: [id number] Lymphocytes (Bld) [#/Vol] 3.8 {x10E3/uL} Abnormal 0.7-3.1 [facility] Work Phone: Comment on above: PATIENT WAS FASTINGP ERFORMED BY: DEMETRIUS [place] 1686770 [facility] [id number] Information: [id number] Lymphocytes (Bld) [#/Vol] 3.8 10*3/uL Abnormal 0.7-3.1 [facility]; [facility] Work Phone: Lymphocytes Auto #/vol (Bld) 3.8 {x10E3/uL} Abnormal 0.7-3.1 [facility] Work Phone: Lymphocytes/100 WBC (Bld) 52 % Abnormal - [facility] Work Phone: Comment on above: PATIENT WAS FASTINGP ERFORMED BY: DEMETRIUS [place] 1686770 [facility] [id number] Information: [id number] Lymphocytes/100 WBC Auto (Bld) 52 % Abnormal [facility] Work Phone: MCH (RBC) [Entitic mass] 30.1 pg Normal 26.6-33.0 [facility] Work Phone: Comment on above: PATIENT WAS FASTINGP ERFORMED BY: DEMETRIUS [facility] HospitalGregKimberly Ville 8076070 [facility] [id number] Information: [id number] MCH Auto Entitic mass (RBC) 30.1 pg Normal 26.6-33.0 [facility] Work Phone: MCHC (RBC) [Mass/Vol] 33.3 g/dL Normal 31.5-35.7 [facility] prehensive Internal Medicine Work Phone: Comment on above: PATIENT WAS FASTINGP ERFORMED BY: [place] 7062870 [facility] [id number] Information: [id number] MCHC Auto mass conc (RBC) 33.3 g/dL Normal 31.5-35.7 [facility] Work Phone: MCV (RBC) [Entitic vol] 91 fL Normal 79-97 [facility] Work Phone: Comment on above: PATIENT WAS FASTINGP ERFORMED BY: DEMETRIUS [facility]6370 [facility] [id number] Information: [id number] MCV Auto Entitic volume (RBC) 91 fL Normal 79-97 [facility] Work Phone: Monocytes (Bld) [#/Vol] 0.4 {x10E3/uL} Normal 0.1-0.9 [facility] Work Phone: Comment on above: PATIENT WAS FASTINGP ERFORMED BY: [place] [id number] [facility] [id number] Information: [id number] Monocytes (Bld) [#/Vol] 0.4 10*3/uL Normal 0.1-0.9 [facility]; [facility] Work Phone: Monocytes Auto #/vol (Bld) 0.4 {x10E3/uL} Normal 0.1-0.9 [facility] Work Phone: Monocytes/100 WBC (Bld) 6 % Normal 4-12 [facility] Work Phone: Comment on above: PATIENT WAS FASTINGP ERFORMED BY: DEMETRIUS [place] 1686770 [facility] [id number] Information: [id number] Monocytes/100 WBC Auto (Bld) 6 % Normal 4-12 [facility] Work Phone: Neutrophils (Bld) [#/Vol] 2.9 {x10E3/uL} Normal 1.4-7.0 [facility] Work Phone: Comment on above: PATIENT WAS FASTINGP ERFORMED BY: [facility]6370 [facility] [id number] Information: [id number] Neutrophils (Bld) [#/Vol] 2.9 10*3/uL Normal 1.4-7.0 [facility]; [facility] Work Phone: Neutrophils Auto #/vol (Bld) 2.9 {x10E3/uL} Normal 1.4-7.0 [facility] Work Phone: Neutrophils/100 WBC (Bld) 39 % Abnormal 40-74 [facility] Work Phone: Comment on above: PATIENT WAS FASTINGP ERFORMED BY: DEMETRIUS [facility]6370 [facility] [id number] Information: [id number] Neutrophils/100 WBC Auto (Bld) 39 % Abnormal 40-74 [facility] Work Phone: Platelets (Bld) [#/Vol] 287 {x10E3/uL} Normal 155-379 [facility] Work Phone: Comment on above: PATIENT WAS FASTINGP ERFORMED BY: DEMETRIUS [facility] Buzses2684 [facility] [id number] Information: [id number] Platelets (Bld) [#/Vol] 287 10*3/uL Normal 155-379 [facility]; [facility] Work Phone: Platelets Auto #/vol (Bld) 287 {x10E3/uL} Normal 155-379 [facility] Work Phone: RBC (Bld) [#/Vol] 4.55 {x10E6/uL} Normal 3.77-5.28 [facility] Internal [facility] Work Phone: Comment on above: PATIENT WAS FASTINGP ERFORMED BY: [facility]6370 [facility] [id number] Information: [id number] RBC (Bld) [#/Vol] 4.55 10*6/uL Normal 3.77-5.28 [facility] Internal Medicine; [facility] Work Phone: RBC Auto #/vol (Bld) 4.55 {x10E6/uL} Normal 3.77-5.28 [facility] Work Phone: WBC (Bld) [#/Vol] 7.4 {x10E3/uL} Normal 3.4-10.8 Com prehensive Internal Medicine Work Phone: Comment on above: PATIENT WAS FASTINGP ERFORMED BY: DEMETRIUS SueBen Rvgyvy7201 [facility] [id number] Information: [id number] WBC (Bld) [#/Vol] 7.4 10*3/uL Normal 3.4-10.8 Compre [facility]; [facility] Work Phone: WBC Auto #/vol (Bld) 7.4 {x10E3/uL} Normal 3.4-10.8 [facility] Work Phone: Lipid Panel ([id number])Ordered B y: Gas Fitter on 04-13-2013 Cholesterol in HDL mass conc 39 mg/dL Abnormal [facility] Work Phone: Comment on above: According to ATP-III Guidelines, HDL-C >59 mg/dL is considered anegative risk factor for CHD. PATIENT WAS FASTINGP ERFORMED BY: DEMETRIUS Omnireliantroseline Jyqiem2460 [address] [employer] HealthcareAt[facility] [id number] Cholesterol in LDL mass conc 41 mg/dL Normal 0-99 [facility] Work Phone: Comment on above: PATIENT WAS FASTINGP ERFORMED BY: DEMETRIUS [place] Zmbtti4170 [address] CultureIQNovant Health [facility] [id number] Cholesterol in LDL/Cholesterol in HDL mass ratio 1.1 {ratio_units} Normal 0.0-3.2 [facility] Work Phone: Comment on above: PATIENT WAS FASTINGP ERFORMED BY: DEMETRIUS RoambiBen Bzwllo6919 [address] CultureIQNovant Health [facility] [id number] Cholesterol in VLDL mass conc 16 mg/dL Normal 5-40 [facility] Work Phone: Comment on above: PATIENT WAS FASTINGP ERFORMED BY: DEMETRIUS RoambiGreg Rfshqt8445 [facility] [id number] Cholesterol mass conc 96 mg/dL Abnormal 100-199 [facility] prehensive Internal Medicine Work Phone: Comment on above: PATIENT WAS FASTINGP ERFORMED BY: DEMETRIUS LabBen Fyvxyu6049 [address] [facility]in [place] [id number] Triglyceride mass conc 82 mg/dL Normal 0-149 [facility] Work Phone: Comment on above: PATIENT WAS FASTINGP ERFORMED BY: DEMETRIUS Nikita Pefzvd9843 [address] [facility] Centerblin [place] [id number] MICROALBUMINOrdered By: Syst em Chip Separator on 04-13-2013 Albumin DL <= 20 mg/L mass conc (U) 9.6 ug/mL Normal 0.0-17.0 [facility] Work Phone: Comment on above: PATIENT WAS FASTINGP ERFORMED BY: DEMETRIUS LabRiple[facility] Mhwfnl5172 [address] [facility] [id number] Albumin/Creatinine mass ratio (U) 24.6 {mg/g_creat} Normal 0.0-30.0 [facility] Work Phone: Comment on above: PATIENT WAS FASTINGP ERFORMED BY: DEMETRIUS LabRipley County [facility] Hospital Hbqdlx2471 [address] [facility] [id number] Creatinine mass conc (U) 39.1 mg/dL Normal 15.0-278.0 [facility] Work Phone: Comment on above: PATIENT WAS FASTINGP ERFORMED BY: DEMETRIUS Nikita Qxreri3783 [facility] [id number] Metabolic Panel, Comprehensi ve (13345)Ordered By: Gas Fitter on 04-13-2013 Albumin mass conc 4.2 g/dL Normal 3.6-4.8 Compreh ensive Internal Medicine Work Phone: Comment on above: PATIENT WAS FASTINGP ERFORMED BY: DEMETRIUS LabRiple[facility] Ryqfiu9581 [facility] [id number] Albumin/Globulin mass ratio 1.7 {ratio} Normal 1.1-2.5 [facility] Work Phone: Comment on above: PATIENT WAS FASTINGP ERFORMED BY: DEMETRIUS LabGreg Ieomnd2448 [facility] [id number] ALP [Catalytic activity/Vol] 86 U/L Normal 47-112 [facility]; [facility] Work Phone: ALP enzyme act/vol 86 [iU]/L Normal 47-112 [facility] Internal Medicine Work Phone: Comment on above: PATIENT WAS FASTINGP ERFORMED BY: DEMETRIUS [facility] Jnjnig3105 Vargas RoadDublin [place] [id number] ALT [Catalytic activity/Vol] 29 U/L Normal 0-32 [facility]; [facility] Internal Medicine Work Phone: ALT enzyme act/vol 29 [iU]/L Normal 0-32 [facility] Internal Medicine Work Phone: Comment on above: PATIENT WAS FASTINGP ERFORMED BY: DEMETRIUS [facility] Fruzbs7745 [address]as RoadDublin [place] [id number] AST [Catalytic activity/Vol] 23 U/L Normal 0-40 [facility]; [facility] Internal Medicine Work Phone: AST enzyme act/vol 23 [iU]/L Normal 0-40 [facility] Internal Medicine Work Phone: Comment on above: PATIENT WAS FASTINGP ERFORMED BY: DEMETRIUS [facility] Ygzqok6354 [address]as RoadDublin [place] [id number] Bilirubin mass conc 0.4 mg/dL Normal 0.0-1.2 Compr [facility] Internal Medicine Work Phone: Comment on above: PATIENT WAS FASTINGP ERFORMED BY: DEMETRIUS [facility] Wzhtng9488 Vargas RoadDublin [place] [id number] Calcium mass conc 9.4 mg/dL Normal 8.6-10.2 Compreh ensive Internal Medicine Work Phone: Comment on above: PATIENT WAS FASTINGP ERFORMED BY: DEMETRIUS [facility] Bupxak9761 [address] RoadDublin [place] [id number] Chloride molar conc 105 mmol/L Normal 97-108 Compr ensive Internal Medicine Work Phone: Comment on above: PATIENT WAS FASTINGP ERFORMED BY: DEMETRIUS [facility] Ixfzto6189 [address] RoadDublin [place] [id number] CO2 molar conc 21 mmol/L Normal 19-28 Comprehens [facility] Work Phone: Comment on above: PATIENT WAS FASTINGP ERFORMED BY: DEMETRIUS [facility] Mramec5104 [address] [facility]in [place] [id number] Creatinine mass conc 0.72 mg/dL Normal 0.57-1.00 Comp rehensive Internal Medicine Work Phone: Comment on above: PATIENT WAS FASTINGP ERFORMED BY: DEMETRIUS [facility] Iuiihm7224 [address] [facility]in [place] [id number] GFR/1.73 sq M predicted among blacks CKD-EPI vol rate/area (S/P/Bld) 101 mL/min/1.73 Normal Comprehensiv e Internal Medicine Work Phone: Comment on above: PATIENT WAS FASTINGP ERFORMED BY: DEMETRIUS [facility] Ifxryj4737 [address] [facility] [id number] GFR/1.73 sq M predicted among non-blacks CKD-EPI vol rate/area (S/P/Bld) 88 mL/min/1.73 Normal [facility] Work Phone: Comment on above: PATIENT WAS FASTINGP ERFORMED BY: DEMETRIUS [facility] Gphlst0759 [address] [facility] [id number] Globulin (S) [Mass/Vol] 2.5 g/dL Normal 1.5-4.5 [facility] Work Phone: Comment on above: PATIENT WAS FASTINGP ERFORMED BY: DEMETRIUS [facility] Vcevsb5663 [address] [facility] [id number] Globulin Calculated mass conc (S) 2.5 g/dL Normal 1.5-4.5 [facility] Work Phone: Glucose mass conc 99 mg/dL Normal 65-99 Compreh ensive Internal Medicine Work Phone: Comment on above: PATIENT WAS FASTINGP ERFORMED BY: CB [facility] Uzcuaj0090 [address] [facility] [id number] Potassium molar conc 4.2 mmol/L Normal 3.5-5.2 Comp rehensive Internal Medicine Work Phone: Comment on above: PATIENT WAS FASTINGP ERFORMED BY: DEMETRIUS [facility] Knjjgw2698 [facility] [id number] Protein mass conc 6.7 g/dL Normal 6.0-8.5 Compreh ensive Internal Medicine Work Phone: Comment on above: PATIENT WAS FASTINGP ERFORMED BY: [facility]6370 [facility] [id number] Sodium molar conc 141 mmol/L Normal 134-144 Compreh ensive Internal Medicine Work Phone: Comment on above: PATIENT WAS FASTINGP ERFORMED BY: [facility]6370 [facility] [id number] Urea nitrogen mass conc 15 mg/dL Normal 8-27 [facility] Work Phone: Comment on above: PATIENT WAS FASTINGP ERFORMED BY: [facility]6370 [facility] [id number] Urea nitrogen/Creatinine mass ratio 21 mg/mg Normal 11-26 [facility] Work Phone: Comment on above: PATIENT WAS FASTINGP ERFORMED BY: [facility]6370 [facility] [id number] Microscopic ExaminationOrder ed By: Gas Fitter on 04-13-2013 Bacteria LM.HPF #/area (Urine sed) Few Normal [facility] Work Phone: Epithelial cells LM.HPF #/area (Urine sed) 0-10 Normal 0 - 10 [facility] Work Phone: Mucus LM Ql (Urine sed) Present Normal [facility] Work Phone: RBC LM.HPF #/area (Urine sed) 0-3 Normal 0 - 3 [facility] Work Phone: WBC LM.HPF #/area (Urine sed) 0-5 Normal 0 - 5 [facility] Work Phone: URINALYSIS ([id number])Ordered By : Gas Fitter on 04-13-2013 Appearance Nom (U) Clear Normal Compre hensive Internal Medicine Work Phone: Comment on above: PATIENT WAS FASTINGP ERFORMED BY: [facility]6370 [facility] [id number] Bilirubin Ql (U) Negative Normal Comprehe nsive Internal Medicine Work Phone: Comment on above: PATIENT WAS FASTINGP ERFORMED BY: DEMETRIUS LabBen KongTdyics7438 [address] RoadDublin [place] [id number] Bilirubin Ql (U) Negative Normal Comprehe nsive Internal Medicine; [facility] Work Phone: Color Nom (U) Yellow Normal Comprehensi ve Internal Medicine Work Phone: Comment on above: PATIENT WAS FASTINGP ERFORMED BY: DEMETRIUS LabBen KongSkfgox5904 [address] RoadDublin [place] [id number] Glucose Ql (U) Negative Normal Comprehens [facility] Work Phone: Comment on above: PATIENT WAS FASTINGP ERFORMED BY: DEMETRIUS LabBen KongFozrmd3302 [address] RoadDublin [place] [id number] Glucose Ql (U) Negative Normal Comprehens [facility]; [facility] Work Phone: Hemoglobin Ql (U) Negative Normal Compreh ensive Internal Medicine Work Phone: Comment on above: PATIENT WAS FASTINGP ERFORMED BY: DEMETRIUS LabBen KongAezzbv5511 [address] RoadDublin [place] [id number] Hemoglobin Ql (U) Negative Normal Compreh ensive Internal Medicine; [facility] Work Phone: Hemoglobin Test strip Ql (U) Negative Normal [facility] Work Phone: Ketones Ql (U) Negative Normal Comprehens [facility] Work Phone: Comment on above: PATIENT WAS FASTINGP ERFORMED BY: DEMETRIUS LabBen Zcmnbv1964 [address] RoadDublin [place] [id number] Ketones Ql (U) Negative Normal Comprehens [facility]; [facility] Work Phone: Leukocyte esterase Test strip Ql (U) 1+ Abnormal [facility] Work Phone: Comment on above: PATIENT WAS FASTINGP ERFORMED BY: DEMETRIUS LabBen KongOtzspw0306 [address] RoadDublin [place] [id number] Microscopic observation LM Nom (Urine sed) See below: Normal [facility] Work Phone: Comment on above: PATIENT WAS FASTINGP ERFORMED BY: DEMETRIUS Morillo6370 [address] RoadDublin [place] [id number] Nitrite Ql (U) Negative Normal Comprehens [facility] Work Phone: Comment on above: PATIENT WAS FASTINGP ERFORMED BY: DEMETRIUS Konglin6370 [address] RoadDublin [place] [id number] Nitrite Ql (U) Negative Normal Comprehens [facility]ley [facility]; [facility] Work Phone: Nitrite Test strip Ql (U) Negative Normal [facility] Work Phone: pH (U) 6.0 [pH] Normal 5.0-7.5 [facility] Work Phone: Comment on above: PATIENT WAS FASTINGP ERFORMED BY: DEMETRIUS Morillo6370 [address] RoadDublin [place] [id number] pH Test strip (U) 6.0 [pH] Normal 5.0-7.5 Compreh ensive Internal Medicine Work Phone: Protein Ql (U) Negative Normal Comprehens [facility] Work Phone: Comment on above: PATIENT WAS FASTINGP ERFORMED BY: DEMETRIUS Konglin6370 [address] RoadDublin [place] [id number] Protein Ql (U) Negative Normal Comprehens [facility]ley [facility]; [facility] Work Phone: Protein Test strip Ql (U) Negative Normal [facility] Work Phone: Specific gravity Relative Density (U) 1.007 1 Normal 1.005-1.03 0 [facility] Work Phone: Comment on above: PATIENT WAS FASTINGP ERFORMED BY: DEMETRIUS LabBen KongOgcwvw0805 [address] RoadDublin [place] [id number] Urobilinogen (U) [Mass/Vol] 0.2 mg/dL Normal 0.0-1.9 [facility]; [facility] Work Phone: Urobilinogen Test strip mass conc (U) 0.2 mg/dL Normal 0.0-1.9 Comprehensiv e Internal Medicine Work Phone: Comment on above: PATIENT WAS FASTINGP ERFORMED BY: DEMETRIUS [facility] Fmngtt4312 [address] [place] [id number] KNEE 4 OR MORE VIEWSOrdered By: Gas Fitter on 12-07-2012 KNEE 4 OR MORE VIEWS See Note Normal Comp rehensive Internal Medicine Work Phone: Comment on above: PROCEDURES: X-RAY - RIGHT KNEE REASON FOR EXAM: Female, 67 years old. Right knee pain TECHNIQUE: Four views of the knee. COMPARISON: None. FINDINGS:No fractures dislocations are demonstrated. The joint space ismaintained.There is very small osteophyte about the inferior aspect of the patella. IMPRESSION:Very slight osteophyte formation and degenerative change. Signed:Bethel Ku M.D.December 07, 2012 at 3:56:34 PM [id number] Signed RU/RU If you are the referring physician and would like to consult with theradiologist who provided this interpretation, please contact Chapincito Najera at [phone]. If this radiologist is unavailable, youwillbe directed to another radiologist to assist. If you are a patient with a question regarding this report, pleasecontactyour referring physician directly. Professional Interpretation Provided By: [employer], Phone , These documents contain legally protected and confidential healthinformation intended only for the use of the individual or entity namedabove. If you are not the intended recipient, you are hereby notifiedthatany disclosure, copying, distribution, or other use of these documents isstrictly prohibited. If you have received this information in error,pleasenotify the sender immediately and arrange for the return or destructionofthese documents. Dictated on 12/07/12 1556 by Bethel KuTranscribed on 12/07/12 1600 by ITS IMPORTSign by Bethel Ku on 12/07/12 1601 Sign by: Bethel Ku PROCEDURE: X-RAY - R IGHT HIP REASON FOR EXAM: Female, 67 years old. Right hip pain TECHNIQUE: Two views of the hip. COMPARISON: None. FINDINGS:No fractures or dislocations are demonstrated. Minimal osteophyteformation is seen about the lateral aspect of the acetabulum and also theinferior medial aspect of the proximal femur. Overall however the jointspace is maintained. No osseous erosions are seen. IMPRESSION:Slight degenerative changes. Signed:Bethel Ku M.D.December 07, 2012 at 4:37:05 PM [id number] Signed RU/RU If you are the referring physician and would like to consult with theradiologist who provided this interpretation, please contact Chapincito Najera at [phone]. If this radiologist is unavailable, youwillbe directed to another radiologist to assist. If you are a patient with a question regarding this report, pleasecontactyour referring physician directly. Professional Interpretation Provided By: [employer]-Bot, Phone , These documents contain legally protected and confidential healthinformation intended only for the use of the individual or entity namedabove. If you are not the intended recipient, you are hereby notifiedthatany disclosure, copying, distribution, or other use of these documents isstrictly prohibited. If you have received this information in error,pleasenotify the sender immediately and arrange for the return or destructionofthese documents. Dictated on 12/07/12 1637 by Bethel KuTranscribed on 12/07/12 1710 by ITS IMPORTSign by Bethel Ku on 12/07/12 1711 Sign by: Bethel Ku CBC WITH MANUAL DIFF ([id number]) Ordered By: Gas Fitter on 08-17-2012 Basophils (Bld) [#/Vol] 0.0 {x10E3/uL} Normal 0.0-0.2 [facility] Work Phone: Comment on above: PATIENT WAS FASTINGP ERFORMED BY: xCloud6370 [facility] [id number] Information: [id number] Basophils (Bld) [#/Vol] 0.0 10*3/uL Normal 0.0-0.2 [facility]; [facility] Work Phone: Basophils Auto #/vol (Bld) 0.0 {x10E3/uL} Normal 0.0-0.2 [facility] Work Phone: Basophils/100 WBC (Bld) 0 % Normal 0-3 [facility] Work Phone: Comment on above: PATIENT WAS FASTINGP ERFORMED BY: LabLP33.TV Uvndao8896 [facility] [id number] Information: [id number] Basophils/100 WBC Auto (Bld) 0 % Normal 0-3 [facility] Work Phone: Eosinophils (Bld) [#/Vol] 0.2 {x10E3/uL} Normal 0.0-0.4 [facility] Work Phone: Comment on above: PATIENT WAS FASTINGP ERFORMED BY: LabLP33.TV Dfbdwa0221 [facility] [id number] Information: [id number] Eosinophils (Bld) [#/Vol] 0.2 10*3/uL Normal 0.0-0.4 [facility]; [facility] Work Phone: Eosinophils Auto #/vol (Bld) 0.2 {x10E3/uL} Normal 0.0-0.4 [facility] Work Phone: Eosinophils/100 WBC (Bld) 2 % Normal 0-7 [facility] Work Phone: Comment on above: PATIENT WAS FASTINGP ERFORMED BY: DEMETRIUS SueBen KongMblrxu8498 [facility] [id number] Information: [id number] Eosinophils/100 WBC Auto (Bld) 2 % Normal 0-7 [facility] Work Phone: Erythrocyte distribution width (RBC) [Ratio] 13.1 % Normal 12.3-15.4 [facility] Work Phone: Comment on above: PATIENT WAS FASTINGP ERFORMED BY: DEMETRIUS [facility]Ben KongDkkpbm3054 [facility] [id number] Information: [id number] Erythrocyte distribution width Auto Ratio (RBC) 13.1 % Normal 12.3-15.4 [facility] Work Phone: Hematocrit (Bld) [Volume fraction] 41.4 % Normal 34.0-46.6 [facility] Work Phone: Comment on above: PATIENT WAS FASTINGP ERFORMED BY: DEMETRIUS Konglin6370 [facility] [id number] Information: [id number] Hematocrit Auto Volume Fraction (Bld) 41.4 % Normal 34.0-46.6 [facility] Internal Medicine Work Phone: Hemoglobin mass conc (Bld) 13.9 g/dL Normal 11.1-15.9 [facility] Work Phone: Comment on above: PATIENT WAS FASTINGP ERFORMED BY: DEMETRIUS [facility]6370 [facility] [id number] Information: [id number] Immature granulocytes #/vol (Bld) 0.0 {x10E3/uL} Normal 0.0-0.1 [facility] Work Phone: Comment on above: PATIENT WAS FASTINGP ERFORMED BY: DEMETRIUS [place] [id number] [facility] [id number] Information: [id number] Immature granulocytes (Bld) [#/Vol] 0.0 10*3/uL Normal 0.0-0.1 [facility]; [facility] Work Phone: Immature granulocytes/100 WBC (Bld) 0 % Normal 0-2 [facility] Work Phone: Comment on above: PATIENT WAS FASTINGP ERFORMED BY: [address] [id number] Information: [id number] Lymphocytes (Bld) [#/Vol] 3.9 {x10E3/uL} Normal 0.7-4.5 [facility] Work Phone: Comment on above: PATIENT WAS FASTINGP ERFORMED BY: DEMETRIUS [address] [id number] Information: [id number] Lymphocytes (Bld) [#/Vol] 3.9 10*3/uL Normal 0.7-4.5 [facility]; [facility] Work Phone: Lymphocytes Auto #/vol (Bld) 3.9 {x10E3/uL} Normal 0.7-4.5 [facility] Work Phone: Lymphocytes/100 WBC (Bld) 47 % Abnormal -46 [facility] Work Phone: Comment on above: PATIENT WAS FASTINGP ERFORMED BY: [place] [id number] [facility] [id number] Information: [id number] Lymphocytes/100 WBC Auto (Bld) 47 % Abnormal 14-46 [facility] Work Phone: MCH (RBC) [Entitic mass] 30.4 pg Normal 26.6-33.0 [facility] Work Phone: Comment on above: PATIENT WAS FASTINGP ERFORMED BY: [place] 7062870 [facility] [id number] Information: [id number] MCH Auto Entitic mass (RBC) 30.4 pg Normal 26.6-33.0 [facility] Work Phone: MCHC (RBC) [Mass/Vol] 33.6 g/dL Normal 31.5-35.7 [facility] Internal Medicine Work Phone: Comment on above: PATIENT WAS FASTINGP ERFORMED BY: DEMETRIUS OmnireliantThe Memorial Hospital of Salem CountyYcyaro5498 [facility] [id number] Information: [id number] MCHC Auto mass conc (RBC) 33.6 g/dL Normal 31.5-35.7 [facility] Internal Medicine Work Phone: MCV (RBC) [Entitic vol] 91 fL Normal 79-97 [facility] Internal Medicine Work Phone: Comment on above: PATIENT WAS FASTINGP ERFORMED BY: DEMETRIUS OmnireliantThe Memorial Hospital of Salem CountyNjxgxd6437 [facility] [id number] Information: [id number] MCV Auto Entitic volume (RBC) 91 fL Normal 79-97 [facility] Internal Medicine Work Phone: Monocytes (Bld) [#/Vol] 0.4 {x10E3/uL} Normal 0.1-1.0 [facility] Internal Medicine Work Phone: Comment on above: PATIENT WAS FASTINGP ERFORMED BY: DEMETRIUS OmnireliantNew Mexico Behavioral Health Institute at Las VegasYnfkju5275 [facility] [id number] Information: [id number] Monocytes (Bld) [#/Vol] 0.4 10*3/uL Normal 0.1-1.0 [facility]; [facility] Work Phone: Monocytes Auto #/vol (Bld) 0.4 {x10E3/uL} Normal 0.1-1.0 [facility] Internal Medicine Work Phone: Monocytes/100 WBC (Bld) 5 % Normal 4-13 [facility] Work Phone: Comment on above: PATIENT WAS FASTINGP ERFORMED BY: OmnireliantKimberly Ville 8076070 [facility] [id number] Information: [id number] Monocytes/100 WBC Auto (Bld) 5 % Normal 4-13 [facility] Work Phone: Neutrophils (Bld) [#/Vol] 3.8 {x10E3/uL} Normal 1.8-7.8 [facility] Work Phone: Comment on above: PATIENT WAS FASTINGP ERFORMED BY: [place] 7062870 [facility] [id number] Information: [id number] Neutrophils (Bld) [#/Vol] 3.8 10*3/uL Normal 1.8-7.8 [facility]; [facility] Work Phone: Neutrophils Auto #/vol (Bld) 3.8 {x10E3/uL} Normal 1.8-7.8 [facility] Work Phone: Neutrophils/100 WBC (Bld) 46 % Normal 40-74 [facility] Work Phone: Comment on above: PATIENT WAS FASTINGP ERFORMED BY: [facility]6370 [facility] [id number] Information: [id number] Neutrophils/100 WBC Auto (Bld) 46 % Normal 40-74 [facility] Work Phone: Platelets (Bld) [#/Vol] 310 {x10E3/uL} Normal 140-415 [facility] Work Phone: Comment on above: PATIENT WAS FASTINGP ERFORMED BY: [facility]6370 [facility] [id number] Information: [id number] Platelets (Bld) [#/Vol] 310 10*3/uL Normal 140-415 [facility]; [facility] Work Phone: Platelets Auto #/vol (Bld) 310 {x10E3/uL} Normal 140-415 [facility] Work Phone: RBC (Bld) [#/Vol] 4.57 {x10E6/uL} Normal 3.77-5.28 Co mprehensive [facility] Work Phone: Comment on above: PATIENT WAS FASTINGP ERFORMED BY: DEMETRIUS Stacy70 [facility] [id number] Information: [id number] RBC (Bld) [#/Vol] 4.57 10*6/uL Normal 3.77-5.28 [facility]; [facility] Work Phone: RBC Auto #/vol (Bld) 4.57 {x10E6/uL} Normal 3.77-5.28 [facility] Work Phone: WBC (Bld) [#/Vol] 8.3 {x10E3/uL} Normal 4.0-10.5 [facility] Internal Medicine Work Phone: Comment on above: PATIENT WAS FASTINGP ERFORMED BY: DEMETRIUS Konglin6370 [facility] [id number] Information: [id number] WBC (Bld) [#/Vol] 8.3 10*3/uL Normal 4.0-10.5 [facility]; [facility] Work Phone: WBC Auto #/vol (Bld) 8.3 {x10E3/uL} Normal 4.0-10.5 [facility] Work Phone: LIPID PANEL ([id number])Ordered B y: Gas Fitter on 08-17-2012 Cholesterol in HDL mass conc 40 mg/dL Normal [facility] Work Phone: Comment on above: According to ATP-III Guidelines, HDL-C >59 mg/dL is considered anegative risk factor for CHD. PATIENT WAS FASTINGP ERFORMED BY: DEMETRIUS Konglin6370 [facility] CultureIQNovant Health [facility] [id number] Cholesterol in LDL mass conc 45 mg/dL Normal 0-99 [facility] Work Phone: Comment on above: PATIENT WAS FASTINGP ERFORMED BY: DEMETRIUS Konglin6370 [facility] [id number] Cholesterol in LDL/Cholesterol in HDL mass ratio 1.1 {ratio_units} Normal 0.0-3.2 [facility] Work Phone: Comment on above: PATIENT WAS FASTINGP ERFORMED BY: DEMETRIUS Morillo6370 [facility] [id number] Cholesterol in VLDL mass conc 34 mg/dL Normal 5-40 [facility] Work Phone: Comment on above: PATIENT WAS FASTINGP ERFORMED BY: DEMETRIUS Morillo6370 [facility] [id number] Cholesterol mass conc 119 mg/dL Normal 100-199 [facility] prehensive Internal Medicine Work Phone: Comment on above: PATIENT WAS FASTINGP ERFORMED BY: DEMETRIUS Konglin6370 [facility] [id number] Triglyceride mass conc 169 mg/dL Abnormal 0-149 [facility] Work Phone: Comment on above: PATIENT WAS FASTINGP ERFORMED BY: DEMETRIUS Konglin6370 [facility] [id number] METABOLIC PANEL, COMPREHENSI VE ([id number])Ordered By: Gas Fitter on 08-17-2012 Albumin mass conc 4.6 g/dL Normal 3.6-4.[address] [facility] Internal Medicine Work Phone: Comment on above: PATIENT WAS FASTINGP ERFORMED BY: DEMETRIUS Konglin6370 [facility] [id number] Albumin/Globulin mass ratio 2.1 {ratio} Normal 1.1-2.5 [facility] Work Phone: Comment on above: PATIENT WAS FASTINGP ERFORMED BY: DEMETRIUS LabBen KongUibikf1074 [facility] [id number] ALP [Catalytic activity/Vol] 88 U/L Normal 25-165 [facility]; [facility] Work Phone: ALP enzyme act/vol 88 [iU]/L Normal 25-165 [facility] Work Phone: Comment on above: PATIENT WAS FASTINGP ERFORMED BY: DEMETRIUS Konglin6370 [address] RoadDublin [place] [id number] ALT [Catalytic activity/Vol] 30 U/L Normal 0-32 [facility]; [facility] Internal Medicine Work Phone: ALT enzyme act/vol 30 [iU]/L Normal 0-32 [facility] Internal Medicine Work Phone: Comment on above: PATIENT WAS FASTINGP ERFORMED BY: DEMETRIUS [facility] Lvfqqb9257 [address]as RoadDublin [place] [id number] AST [Catalytic activity/Vol] 24 U/L Normal 0-40 [facility]; [facility] Internal Medicine Work Phone: AST enzyme act/vol 24 [iU]/L Normal 0-40 [facility] Internal Medicine Work Phone: Comment on above: PATIENT WAS FASTINGP ERFORMED BY: DEMETRIUS [facility] Pftcdc5424 [address] RoadDublin [place] [id number] Bilirubin mass conc 0.4 mg/dL Normal 0.0-1.2 [facility] Work Phone: Comment on above: PATIENT WAS FASTINGP ERFORMED BY: DEMETRIUS [facility] Tnzipd9571 [address]as RoadDublin [place] [id number] Calcium mass conc 9.8 mg/dL Normal 8.6-10.2 [facility] Work Phone: Comment on above: PATIENT WAS FASTINGP ERFORMED BY: DEMETRIUS [facility] Vinkin3523 [address] RoadDublin [place] [id number] Chloride molar conc 102 mmol/L Normal 97-108 [facility] Internal Medicine Work Phone: Comment on above: PATIENT WAS FASTINGP ERFORMED BY: CB [facility] Rgugif7717 [address] RoadDublin [place] [id number] CO2 molar conc 23 mmol/L Normal 20-32 [facility]prehque[facility] Work Phone: Comment on above: PATIENT WAS FASTINGP ERFORMED BY: DEMETRIUS [facility] Jycaab0566 [address] RoadDublin [place] [id number] Creatinine mass conc 0.77 mg/dL Normal 0.57-1.00 Comp [facility] systemensive [facility] Work Phone: Comment on above: PATIENT WAS FASTINGP ERFORMED BY: DEMETRIUS [facility] Tpuzrw3138 Vargas RoadGranville Medical Centerin [place] [id number] GFR/1.73 sq M predicted among blacks CKD-EPI vol rate/area (S/P/Bld) 94 mL/min/1.73 Normal Comprehensiv e Internal Medicine Work Phone: Comment on above: PATIENT WAS FASTINGP ERFORMED BY: DEMETRIUS [facility] Ohjqoy05[address] [facility] [id number] GFR/1.73 sq M predicted among non-blacks CKD-EPI vol rate/area (S/P/Bld) 81 mL/min/1.73 Normal [facility] Work Phone: Comment on above: PATIENT WAS FASTINGP ERFORMED BY: DEMETRIUS LabCoroseline KongZsiudz2323 [facility] [id number] Globulin (S) [Mass/Vol] 2.2 g/dL Normal 1.5-4.5 [facility] Work Phone: Comment on above: PATIENT WAS FASTINGP ERFORMED BY: DEMETRIUS LabCo Qqmbmm5091 [facility] [id number] Globulin Calculated mass conc (S) 2.2 g/dL Normal 1.5-4.5 [facility] Work Phone: Glucose mass conc 97 mg/dL Normal 65-99 Compreh ensive Internal Medicine Work Phone: Comment on above: PATIENT WAS FASTINGP ERFORMED BY: DEMETRIUS [facility] Yooyre7533 [facility] [id number] Potassium molar conc 4.2 mmol/L Normal 3.5-5.2 Comp rehensive Internal Medicine Work Phone: Comment on above: PATIENT WAS FASTINGP ERFORMED BY: DEMETRIUS [facility] Kuqazm2934 [facility] [id number] Protein mass conc 6.8 g/dL Normal 6.0-8.5 Compreh ensive Internal Medicine Work Phone: Comment on above: PATIENT WAS FASTINGP ERFORMED BY: DEMETRIUS LabCo Poyruk8625 [facility] [id number] Sodium molar conc 142 mmol/L Normal 134-144 Compreh ensive Internal Medicine Work Phone: Comment on above: PATIENT WAS FASTINGP ERFORMED BY: DEMETRIUS Milla Konglin6370 [facility] [id number] Urea nitrogen mass conc 9 mg/dL Normal 8-27 [facility] Work Phone: Comment on above: PATIENT WAS FASTINGP ERFORMED BY: DEMETRIUS Nikita Xbqfkr4827 [facility] [id number] Urea nitrogen/Creatinine mass ratio 12 mg/mg Normal 11-26 [facility] Work Phone: Comment on above: PATIENT WAS FASTINGP ERFORMED BY: DEMETRIUS Nikita Yngmrk0598 [facility] [id number] MICROALBUMINOrdered By: Syst em Chip Separator on 08-17-2012 Albumin DL <= 20 mg/L mass conc (U) 10.4 ug/mL Normal 0.0-17.0 [facility] Work Phone: Comment on above: PATIENT WAS FASTINGP ERFORMED BY: DEMETRIUS Nikita Kdtwzp6313 [facility] [id number] Albumin/Creatinine mass ratio (U) 15.2 {mg/g_creat} Normal 0.0-30.0 [facility] Work Phone: Comment on above: PATIENT WAS FASTINGP ERFORMED BY: DEMETRIUS NikitaThe Memorial Hospital of Salem CountyFpbfyu7490 [facility] [id number] Creatinine mass conc (U) 68.3 mg/dL Normal 15.0-278.0 [facility] Work Phone: Comment on above: PATIENT WAS FASTINGP ERFORMED BY: DEMETRIUS Nikita Kraujz2149 [facility] [id number] Microscopic ExaminationOrder ed By: Gas Fitter on 08-17-2012 Bacteria LM.HPF #/area (Urine sed) Few Normal [facility] Work Phone: Epithelial cells LM.HPF #/area (Urine sed) 0-10 Normal 0 - 10 [facility] Work Phone: Mucus LM Ql (Urine sed) Present Normal [facility] Work Phone: RBC LM.HPF #/area (Urine sed) 0-3 Normal 0 - 3 [facility] Work Phone: WBC LM.HPF #/area (Urine sed) 0-5 Normal 0 - 5 [facility] Work Phone: TSH ([id number])Ordered By: Syste m Chip Separator on 08-17-2012 Thyrotropin Qn 2.490 {uIU/mL} Normal 0.450-4.50 0 [facility] Work Phone: Comment on above: PATIENT WAS FASTINGP ERFORMED BY: CB [facility] Tdjixx3098 [address] RoadDublin [place] [id number] URINALYSIS, W/ MICRO ([id number]) Ordered By: Gas Fitter on 08-17-2012 Appearance Nom (U) Clear Normal Compre hensive Internal Medicine Work Phone: Comment on above: PATIENT WAS FASTINGP ERFORMED BY: CB [facility] Dltjky3834 [address] RoadDublin [place] [id number] Bilirubin Ql (U) Negative Normal Comprehe nsive Internal Medicine Work Phone: Comment on above: PATIENT WAS FASTINGP ERFORMED BY: CB [facility] Eelfhj8927 [address] RoadDublin [place] [id number] Bilirubin Ql (U) Negative Normal Comprehe nsive Internal Medicine; [facility] Work Phone: Color Nom (U) Yellow Normal Comprehensi ve Internal Medicine Work Phone: Comment on above: PATIENT WAS FASTINGP ERFORMED BY: CB [facility] Hdxdet3012 [address] RoadDublin [place] [id number] Glucose Ql (U) Negative Normal Comprehens [facility] Internal Medicine Work Phone: Comment on above: PATIENT WAS FASTINGP ERFORMED BY: CB [facility] Wdohun9071 [address] RoadDublin [place] [id number] Glucose Ql (U) Negative Normal Comprehens [facility]; [facility] Work Phone: Hemoglobin Ql (U) Negative Normal Compreh ensive Internal Medicine Work Phone: Comment on above: PATIENT WAS FASTINGP ERFORMED BY: DEMETRIUS Morillo6370 [address] RoadDublin [place] [id number] Hemoglobin Ql (U) Negative Normal Compreh ensive Internal Medicine; [facility] Work Phone: Hemoglobin Test strip Ql (U) Negative Normal [facility] Work Phone: Ketones Ql (U) Negative Normal Comprehens [facility] Work Phone: Comment on above: PATIENT WAS FASTINGP ERFORMED BY: DEMETRIUS LabBen KongJqooaq6742 [address] RoadDublin [place] [id number] Ketones Ql (U) Negative Normal Comprehens [facility]; [facility] Work Phone: Leukocyte esterase Test strip Ql (U) 1+ Abnormal [facility] Work Phone: Comment on above: PATIENT WAS FASTINGP ERFORMED BY: DEMETRIUS Konglin6370 [address] Roadblin [place] [id number] Microscopic observation LM Nom (Urine sed) See below: Normal [facility] Work Phone: Comment on above: PATIENT WAS FASTINGP ERFORMED BY: DEMETRIUS Konglin6370 [address] RoadDublin [place] [id number] Nitrite Ql (U) Negative Normal Comprehens [facility] Work Phone: Comment on above: PATIENT WAS FASTINGP ERFORMED BY: DEMETRIUS LabBen KongXfyatf1773 [address] RoadDublin [place] [id number] Nitrite Ql (U) Negative Normal Comprehens [facility]; [facility] Work Phone: Nitrite Test strip Ql (U) Negative Normal [facility] Work Phone: pH (U) 6.5 [pH] Normal 5.0-7.5 [facility] Work Phone: Comment on above: PATIENT WAS FASTINGP ERFORMED BY: DEMETRIUS LabBen KongXqpvyt5618 [address] RoadDublin [place] [id number] pH Test strip (U) 6.5 [pH] Normal 5.0-7.5 Compreh ensive Internal Medicine Work Phone: Protein Ql (U) Negative Normal Comprehens [facility] Work Phone: Comment on above: PATIENT WAS FASTINGP ERFORMED BY: LabCoThe [facility] Hospital of Salem CountyIwmyjc0115 [address] [facility] Hospitalin [place] [id number] Protein Ql (U) Negative Normal Comprehens [facility]; [facility] Work Phone: Protein Test strip Ql (U) Negative Normal [facility] Work Phone: Specific gravity Relative Density (U) 1.012 1 Normal 1.005-1.03 0 [facility] Work Phone: Comment on above: PATIENT WAS FASTINGP ERFORMED BY: LabCoThe [facility] Hospital of Salem CountyJjqsgs8744 [facility] [id number] Urobilinogen (U) [Mass/Vol] 0.2 mg/dL Normal 0.0-1.9 [facility]; [facility] Work Phone: Urobilinogen Test strip mass conc (U) 0.2 mg/dL Normal 0.0-1.9 Comprehensiv e Internal Medicine Work Phone: Comment on above: PATIENT WAS FASTINGP ERFORMED BY: LabCoThe [facility] Hospital of Salem CountyLfeinx2749 [facility] [id number] Vitamin D Hydroxy ([id number])Ord ered By: Gas Fitter on 08-17-2012 25-Hydroxyvitamin D2+25-Hydroxyvitamin D3 mass conc 34.3 ng/mL Normal 30.0-100.0 [facility] Work Phone: Comment on above: Vitamin D deficiency has been defined by the [place] ofMedicine and an Endocrine Society practice guideline as alevel of serum 25-OH vitamin D less than 20 ng/mL (1,2).The Endocrine Society went on to further define vitamin Dinsufficiency as a level between 21 and 29 ng/mL (2).1. IOM ([place] of Medicine). 2010. Dietary reference intakes for calcium and D. [place]: The National Academies Press.2. Néstor ONEILL, Jorge IVY, Justus ZHOU, et al. Evaluation, treatment, and prevention of vitamin D deficiency: an Endocrine Society clinical practice guideline. JCEM. 2010; 96(7):1911-30. PATIENT WAS FASTINGP ERFORMED BY: LabCo Gzwvgz9565 [facility] [id number] CBC With Differential/Platel etOrdered By: Gas Fitter on 12-09-2011 Basophils Auto #/vol (Bld) 0.0 {x10E3/uL} Normal 0.0-0.2 [facility] Work Phone: Basophils/100 WBC Auto (Bld) 0 % Normal 0-3 [facility] Work Phone: Eosinophils Auto #/vol (Bld) 0.3 {x10E3/uL} Normal 0.0-0.4 [facility] Work Phone: Eosinophils/100 WBC Auto (Bld) 4 % Normal 0-7 [facility] Work Phone: Erythrocyte distribution width Auto Ratio (RBC) 13.6 % Normal 12.3-15.4 [facility] Work Phone: Hematocrit Auto Volume Fraction (Bld) 41.9 % Normal 34.0-46.6 Comprehens [facility] Work Phone: Hemoglobin mass conc (Bld) 13.9 g/dL Normal 11.1-15.9 [facility] Work Phone: Immature granulocytes #/vol (Bld) 0.0 {x10E3/uL} Normal 0.0-0.1 [facility] Work Phone: Immature granulocytes/100 WBC (Bld) 0 % Normal 0-2 [facility] Work Phone: Lymphocytes Auto #/vol (Bld) 3.4 {x10E3/uL} Normal 0.7-4.5 [facility] Work Phone: Lymphocytes/100 WBC Auto (Bld) 47 % Abnormal 14-46 [facility] Work Phone: MCH Auto Entitic mass (RBC) 30.2 pg Normal 26.6-33.0 [facility] Internal Medicine Work Phone: MCHC Auto mass conc (RBC) 33.2 g/dL Normal 31.5-35.7 [facility] Work Phone: MCV Auto Entitic volume (RBC) 91 fL Normal 79-97 [facility] Work Phone: Monocytes Auto #/vol (Bld) 0.4 {x10E3/uL} Normal 0.1-1.0 [facility] Work Phone: Monocytes/100 WBC Auto (Bld) 5 % Normal 4-13 [facility] Work Phone: Neutrophils Auto #/vol (Bld) 3.3 {x10E3/uL} Normal 1.8-7.8 [facility] Internal Medicine Work Phone: Neutrophils/100 WBC Auto (Bld) 44 % Normal 40-74 [facility] Internal Medicine Work Phone: Platelets Auto #/vol (Bld) 303 {x10E3/uL} Normal 140-415 [facility] Internal Medicine Work Phone: RBC Auto #/vol (Bld) 4.60 {x10E6/uL} Normal 3.77-5.28 [facility] Internal Medicine Work Phone: WBC Auto #/vol (Bld) 7.4 {x10E3/uL} Normal 4.0-10.5 [facility] Internal Medicine Work Phone: Comp. Metabolic Panel (14)Or dered By: Gas Fitter on 12-09-2011 Albumin mass conc 4.4 g/dL Normal 3.6-4.8 [facility] Work Phone: Albumin/Globulin mass ratio 1.8 {ratio} Normal 1.1-2.5 [facility] Internal Medicine Work Phone: ALP enzyme act/vol 95 [iU]/L Normal 25-165 [facility] Work Phone: ALT enzyme act/vol 24 [iU]/L Normal 0-40 [facility] Internal Medicine Work Phone: AST enzyme act/vol 19 [iU]/L Normal 0-40 Compre hensive [facility] Medicine Work Phone: Bilirubin mass conc 0.4 mg/dL Normal 0.0-1.2 Compr ehensive [facility] Medicine Work Phone: Calcium mass conc 9.5 mg/dL Normal 8.6-10.2 Compreh ensive [facility] Work Phone: Chloride molar conc 105 mmol/L Normal 97-108 Compr ehensive [facility] Medicine Work Phone: CO2 molar conc 23 mmol/L Normal 20-32 Comprehens [facility] Work Phone: Creatinine mass conc 0.78 mg/dL Normal 0.57-1.00 Comp rehensive Internal Medicine Work Phone: GFR/1.73 sq M predicted among blacks CKD-EPI vol rate/area (S/P/Bld) 92 mL/min/1.73 Normal Comprehensiv e Internal Medicine Work Phone: GFR/1.73 sq M predicted among non-blacks CKD-EPI vol rate/area (S/P/Bld) 80 mL/min/1.73 Normal [facility] Work Phone: Globulin Calculated mass conc (S) 2.4 g/dL Normal 1.5-4.5 [facility] Work Phone: Glucose mass conc 97 mg/dL Normal 65-99 Compreh ensive [facility] Work Phone: Potassium molar conc 4.2 mmol/L Normal 3.5-5.2 Comp rehensive [facility] Medicine Work Phone: Protein mass conc 6.8 g/dL Normal 6.0-8.5 Compreh ensive [facility] Work Phone: Sodium molar conc 141 mmol/L Normal 134-144 Compreh ensive [facility] Work Phone: Urea nitrogen mass conc 13 mg/dL Normal 8-27 [facility] Work Phone: Urea nitrogen/Creatinine mass ratio 17 mg/mg Normal 11-26 [facility] Work Phone: Lipid Panel With LDL/HDL Rat ioOrdered By: Gas Fitter on 12-09-2011 Cholesterol in HDL mass conc 35 mg/dL Abnormal [facility] Work Phone: Comment on above: According to ATP-III Guidelines, HDL-C >59 mg/dL is considered anegative risk factor for CHD. Cholesterol in LDL mass conc 39 mg/dL Normal 0-99 [facility] Work Phone: Cholesterol in LDL/Cholesterol in HDL mass ratio 1.1 {ratio_units} Normal 0.0-3.2 [facility] Work Phone: Cholesterol in VLDL mass conc 49 mg/dL Abnormal 5-40 [facility] Work Phone: Cholesterol mass conc 123 mg/dL Normal 100-199 Com prehensive [facility] Work Phone: Triglyceride mass conc 245 mg/dL Abnormal 0-149 [facility] Work Phone: Microalb/Creat Ratio, Randm UrOrdered By: Gas Fitter on 12-09-2011 Albumin DL <= 20 mg/L mass conc (U) 14.3 ug/mL Normal 0.0-17.0 [facility] Work Phone: Albumin/Creatinine mass ratio (U) 31.6 {mg/g_creat} Abnormal 0.0-30.0 [facility] Work Phone: Creatinine mass conc (U) 45.3 mg/dL Normal 15.0-278.0 [facility] Work Phone: Microscopic ExaminationOrder ed By: Gas Fitter on 12-09-2011 Bacteria LM.HPF #/area (Urine sed) Few Normal [facility] Work Phone: Epithelial cells LM.HPF #/area (Urine sed) 0-10 Normal 0 - 10 [facility] Work Phone: RBC LM.HPF #/area (Urine sed) None seen Normal 0 - 3 [facility] Work Phone: WBC LM.HPF #/area (Urine sed) 0-5 Normal 0 - 5 [facility] Work Phone: TSHOrdered By: System Manage r on 12-09-2011 Thyrotropin Qn 1.510 {uIU/mL} Normal 0.450-4.50 0 [facility] Work Phone: Urinalysis, CompleteOrdered By: Gas Fitter on 12-09-2011 Appearance Nom (U) Clear Normal Compre hensive [facility] Work Phone: Bilirubin Ql (U) Negative Normal Comprehe nsive [facility] Work Phone: Color Nom (U) Yellow Normal Comprehensi ve Internal Medicine Work Phone: Glucose Ql (U) Negative Normal Comprehens [facility] Work Phone: Hemoglobin Test strip Ql (U) Negative Normal [facility] Work Phone: Ketones Ql (U) Negative Normal Comprehens [facility] Work Phone: Leukocyte esterase Test strip Ql (U) 1+ Abnormal [facility] Work Phone: Microscopic observation LM Nom (Urine sed) See below: Normal [facility] Work Phone: Nitrite Test strip Ql (U) Negative Normal [facility] Work Phone: pH Test strip (U) 6.5 [pH] Normal 5.0-7.5 Compreh ensive [facility] Work Phone: Protein Test strip Ql (U) Negative Normal [facility] Work Phone: Specific gravity Relative Density (U) 1.011 1 Normal 1.005-1.03 0 [facility] Work Phone: Urobilinogen Test strip mass conc (U) 0.2 mg/dL Normal 0.0-1.9 Comprehensiv e [facility] Work Phone: Vitamin D, 25-HydroxyOrdered By: Gas Fitter on 12-09-2011 25-Hydroxyvitamin D2+25-Hydroxyvitamin D3 mass conc 35.1 ng/mL Normal 30.0-100.0 [facility] Work Phone: Comment on above: Vitamin D deficiency has been defined by the [place] of[employer] and an Endocrine Society practice guideline as alevel of serum 25-OH vitamin D less than 20 ng/mL (1,2).The Endocrine Society went on to further define vitamin Dinsufficiency as a level between 21 and 29 ng/mL (2).1. IOM ([place] of [employer]). 2010. Dietary reference intakes for calcium and D. [place]: The National Academies Press.2. Néstor MF, Jorge IVY, Justus ZHOU, et al. Evaluation, treatment, and prevention of vitamin D deficiency: an Endocrine Society clinical practice guideline. JCEM. 2010; 96(7):1911-30. CBC WITH MANUAL DIFF (59909) Ordered By: Shahnaz Feng on 09-21-2008 Basophils (Bld) [#/Vol] 0.1 {x10E3/uL} Normal 0.0-0.2 [facility] Work Phone: Comment on above: PATIENT WAS FASTINGC linical Information: ADD DRAW FEE [id number] ADD J [id number] PERFORMED BY: [facility] [id number] Basophils (Bld) [#/Vol] 0.1 10*3/uL Normal 0.0-0.2 [facility]; [facility] Work Phone: Basophils Auto #/vol (Bld) 0.1 {x10E3/uL} Normal 0.0-0.2 [facility] Work Phone: Basophils/100 WBC (Bld) 1 % Normal 0-3 [facility] Work Phone: Comment on above: PATIENT WAS FASTINGC linical Information: ADD DRAW FEE [id number] ADD J [id number] PERFORMED BY: [facility] [id number] Basophils/100 WBC Auto (Bld) 1 % Normal 0-3 [facility] Work Phone: Eosinophils (Bld) [#/Vol] 0.2 {x10E3/uL} Normal 0.0-0.4 [facility] Work Phone: Comment on above: PATIENT WAS FASTINGC linical Information: ADD DRAW FEE [id number] ADD J [id number] PERFORMED BY: [facility] [id number] Eosinophils (Bld) [#/Vol] 0.2 10*3/uL Normal 0.0-0.4 [facility]; [facility] Work Phone: Eosinophils Auto #/vol (Bld) 0.2 {x10E3/uL} Normal 0.0-0.4 [facility] Work Phone: Eosinophils/100 WBC (Bld) 2 % Normal 0-7 [facility] Work Phone: Comment on above: PATIENT WAS FASTINGC linical Information: ADD DRAW FEE [id number] ADD J 41184 PERFORMED BY: DEMETRIUS [employer]70 VargasGenophenAtrium Health [facility] [id number] Eosinophils/100 WBC Auto (Bld) 2 % Normal 0-7 [facility] Work Phone: Erythrocyte distribution width (RBC) [Ratio] 13.5 % Normal 11.7-15.0 [facility] Work Phone: Comment on above: PATIENT WAS FASTINGC linical Information: ADD DRAW FEE [id number] ADD J [id number] PERFORMED BY: DEMETRIUS [employer]70 [place] CultureIQNovant Health [facility] [id number] Erythrocyte distribution width Auto Ratio (RBC) 13.5 % Normal 11.7-15.0 [facility] Work Phone: Hematocrit (Bld) [Volume fraction] 41.1 % Normal 34.0-44.0 [facility] Work Phone: Comment on above: PATIENT WAS FASTINGC linical Information: ADD DRAW FEE [id number] ADD J [id number] PERFORMED BY: DEMETRIUS [employer]70 [place] CultureIQNovant [facility] [id number] Hematocrit Auto Volume Fraction (Bld) 41.1 % Normal 34.0-44.0 [facility] Work Phone: Hemoglobin mass conc (Bld) 13.9 g/dL Normal 11.5-15.0 [facility] Work Phone: Comment on above: PATIENT WAS FASTINGC linical Information: ADD DRAW FEE [id number] ADD J [id number] PERFORMED BY: [facility]6370 [facility] [id number] Lymphocytes (Bld) [#/Vol] 4.0 {x10E3/uL} Normal 0.7-4.5 [facility] Work Phone: Comment on above: PATIENT WAS FASTINGC linical Information: ADD DRAW FEE [id number] ADD J [id number] PERFORMED BY: [place] [id number] [facility] [id number] Lymphocytes (Bld) [#/Vol] 4.0 10*3/uL Normal 0.7-4.5 [facility]; [facility] Work Phone: Lymphocytes Auto #/vol (Bld) 4.0 {x10E3/uL} Normal 0.7-4.5 [facility] Work Phone: Lymphocytes/100 WBC (Bld) 42 % Normal [facility] Work Phone: Comment on above: PATIENT WAS FASTINGC linical Information: ADD DRAW FEE [id number] ADD J [id number] PERFORMED BY: [place] [id number] [facility] [id number] Lymphocytes/100 WBC Auto (Bld) 42 % Normal 14-46 [facility] Work Phone: MCH (RBC) [Entitic mass] 31.8 pg Normal 27.0-34.0 [facility] Internal Medicine Work Phone: Comment on above: PATIENT WAS FASTINGC linical Information: ADD DRAW FEE [id number] ADD J [id number] PERFORMED BY: [facility]6370 [facility] [id number] MCH Auto Entitic mass (RBC) 31.8 pg Normal 27.0-34.0 [facility] Work Phone: MCHC (RBC) [Mass/Vol] 33.8 g/dL Normal 32.0-36.0 [facility] Internal Medicine Work Phone: Comment on above: PATIENT WAS FASTINGC linical Information: ADD DRAW FEE [id number] ADD J [id number] PERFORMED BY: [place] [id number] [facility] [id number] MCHC Auto mass conc (RBC) 33.8 g/dL Normal 32.0-36.0 [facility] Work Phone: MCV (RBC) [Entitic vol] 94 fL Normal 80-98 [facility] Work Phone: Comment on above: PATIENT WAS FASTINGC linical Information: ADD DRAW FEE [id number] ADD J 67541 PERFORMED BY: DEMETRIUS PopJamNovant Health [facility] [id number] MCV Auto Entitic volume (RBC) 94 fL Normal 80-98 [facility] Work Phone: Monocytes (Bld) [#/Vol] 0.5 {x10E3/uL} Normal 0.1-1.0 [facility] Work Phone: Comment on above: PATIENT WAS FASTINGC linical Information: ADD DRAW FEE [id number] ADD J [id number] PERFORMED BY: DEMETRIUS PopJamNovant Health [facility] [id number] Monocytes (Bld) [#/Vol] 0.5 10*3/uL Normal 0.1-1.0 [facility]; [facility] Work Phone: Monocytes Auto #/vol (Bld) 0.5 {x10E3/uL} Normal 0.1-1.0 [facility] Work Phone: Monocytes/100 WBC (Bld) 5 % Normal 4- [facility] Work Phone: Comment on above: PATIENT WAS FASTINGC linical Information: ADD DRAW FEE [id number] ADD J [id number] PERFORMED BY: LyfeSystemsNovant Health [facility] [id number] Monocytes/100 WBC Auto (Bld) 5 % Normal 4-13 [facility] Work Phone: Neutrophils (Bld) [#/Vol] 4.8 {x10E3/uL} Normal 1.8-7.8 [facility] Work Phone: Comment on above: PATIENT WAS FASTINGC linical Information: ADD DRAW FEE [id number] ADD J [id number] PERFORMED BY: LyfeSystemsDublin [place] [id number] Neutrophils (Bld) [#/Vol] 4.8 10*3/uL Normal 1.8-7.8 [facility]; [facility] Work Phone: Neutrophils Auto #/vol (Bld) 4.8 {x10E3/uL} Normal 1.8-7.8 [facility] Work Phone: Neutrophils/100 WBC (Bld) 50 % Normal 40-74 [facility] Work Phone: Comment on above: PATIENT WAS FASTINGC linical Information: ADD DRAW FEE [id number] ADD J [id number] PERFORMED BY: DEMETRIUS [facility] HospitalLP33.TV Ncupab9196 [facility] [id number] Neutrophils/100 WBC Auto (Bld) 50 % Normal 40-74 [facility] Work Phone: Platelets (Bld) [#/Vol] 336 {x10E3/uL} Normal 140-415 [facility] Work Phone: Comment on above: PATIENT WAS FASTINGC linical Information: ADD DRAW FEE [id number] ADD J [id number] PERFORMED BY: DEMETRIUS [facility]6370 [facility] [id number] Platelets (Bld) [#/Vol] 336 10*3/uL Normal 140-415 [facility]; [facility] Work Phone: Platelets Auto #/vol (Bld) 336 {x10E3/uL} Normal 140-415 [facility] Work Phone: RBC (Bld) [#/Vol] 4.38 {x10E6/uL} Normal 3.80-5.10 [facility] Internal Medicine Work Phone: Comment on above: PATIENT WAS FASTINGC linical Information: ADD DRAW FEE [id number] ADD J [id number] PERFORMED BY: [facility] OhioLP33.TVThe Memorial Hospital of Salem CountyKcsgev5307 [facility] [id number] RBC (Bld) [#/Vol] 4.38 10*6/uL Normal 3.80-5.10 [facility] Internal [facility]; [facility] Internal Medicine Work Phone: RBC Auto #/vol (Bld) 4.38 {x10E6/uL} Normal 3.80-5.10 [facility] Work Phone: WBC (Bld) [#/Vol] 9.6 {x10E3/uL} Normal 4.0-10.5 [facility] prehensive Internal Medicine Work Phone: Comment on above: PATIENT WAS FASTINGC linical Information: ADD DRAW FEE [id number] ADD J 50715 PERFORMED BY: DEMETRIUS [employer]70 [facility] [id number] WBC (Bld) [#/Vol] 9.6 10*3/uL Normal 4.0-10.5 Compre hensive [facility]; [facility] Work Phone: WBC Auto #/vol (Bld) 9.6 {x10E3/uL} Normal 4.0-10.5 [facility] Work Phone: LIPID PANEL ([id number])Ordered B y: Shahnaz Feng on 09-21-2008 Cholesterol in HDL mass conc 48 mg/dL Normal [facility] Work Phone: Comment on above: According to ATP-III Guidelines, HDL-C >59 mg/dL is considered anegative risk factor for CHD. PATIENT WAS FASTINGP ERFORMED BY: DEMETRIUS [employer] [facility] [id number] Cholesterol in LDL mass conc 65 mg/dL Normal 0-99 [facility] Work Phone: Comment on above: PATIENT WAS FASTINGP ERFORMED BY: [employer] Isvspy4423 [facility] [id number] Cholesterol in LDL/Cholesterol in HDL mass ratio 1.4 {ratio_units} Normal 0.0-3.2 [facility] Work Phone: Comment on above: PATIENT WAS FASTINGP ERFORMED BY: [employer] [facility] [id number] Cholesterol in VLDL mass conc 46 mg/dL Abnormal 5-40 [facility] Work Phone: Comment on above: PATIENT WAS FASTINGP ERFORMED BY: [employer] Dmhwsw0181 [address] [facility] [id number] Cholesterol mass conc 159 mg/dL Normal 100-199 Com prehensive [facility] Medicine Work Phone: Comment on above: PATIENT WAS FASTINGP ERFORMED BY: [facility] Skmwoc0463 V[address] [facility] [id number] Triglyceride mass conc 231 mg/dL Abnormal 0-149 [facility] Work Phone: Comment on above: PATIENT WAS FASTINGP ERFORMED BY: [employer] Hvijvs6571 [facility] [id number] METABOLIC PANEL, COMPREHENSI VE ([id number])Ordered By: Shahnaz Feng on 09-21-2008 Albumin mass conc 4.5 g/dL Normal 3.6-4.8 Compreh ensive [facility] Work Phone: Comment on above: PATIENT WAS FASTINGP ERFORMED BY: LabGarden City Hospital6370 [facility] [id number] Albumin/Globulin mass ratio 1.7 {ratio} Normal 1.1-2.5 [facility] Work Phone: Comment on above: PATIENT WAS FASTINGP ERFORMED BY: LabCoThe Memorial Hospital of Salem CountyLctbdx9798 [facility] [id number] ALP [Catalytic activity/Vol] 87 U/L Normal 25-165 [facility]; [facility] Work Phone: ALP enzyme act/vol 87 [iU]/L Normal 25-165 [facility] Work Phone: Comment on above: PATIENT WAS FASTINGP ERFORMED BY: [employer] Ivoaig8340 [facility] [id number] ALT [Catalytic activity/Vol] 31 U/L Normal 0-40 [facility]; [facility] Work Phone: ALT enzyme act/vol 31 [iU]/L Normal 0-40 [facility] Internal Medicine Work Phone: Comment on above: PATIENT WAS FASTINGP ERFORMED BY: [employer] Gwlrnc1909 [facility] [id number] AST [Catalytic activity/Vol] 24 U/L Normal 0-40 [facility]; [facility] Work Phone: AST enzyme act/vol 24 [iU]/L Normal 0-40 Compre hensive [facility] Medicine Work Phone: Comment on above: PATIENT WAS FASTINGP ERFORMED BY: DEMETRIUS LabBen KongEmmefn1848 [facility] [id number] Bilirubin mass conc 0.4 mg/dL Normal 0.1-1.2 Compr ehensive [facility] Work Phone: Comment on above: PATIENT WAS FASTINGP ERFORMED BY: DEMETRIUS Konglin6370 [facility] [id number] Calcium mass conc 10.3 mg/dL Normal 8.5-10.6 Compreh ensive [facility] Work Phone: Comment on above: PATIENT WAS FASTINGP ERFORMED BY: DEMETRIUS Konglin6370 [facility] [id number] Chloride molar conc 102 mmol/L Normal 97-108 Compr ensive [facility] Medicine Work Phone: Comment on above: PATIENT WAS FASTINGP ERFORMED BY: DEMETRIUS Konglin6370 [facility] [id number] CO2 molar conc 25 mmol/L Normal 20-32 Comprehens [facility] Work Phone: Comment on above: PATIENT WAS FASTINGP ERFORMED BY: DEMETRIUS LabBen KongTmguxo3610 [facility] [id number] Creatinine mass conc 0.86 mg/dL Normal 0.57-1.00 Comp [facility]ensive [facility] Work Phone: Comment on above: PATIENT WAS FASTINGP ERFORMED BY: DEMETRIUS LabBen KongEymdpr3707 [facility] [id number] GFR/1.73 sq M predicted among blacks MDRD vol rate/area (S/P/Bld) mL/min/{1.73_m2} Normal Comprehensi ve Internal Medicine Work Phone: Comment on above: Note: Persistent red uction for 3 months or more in an eGFR<60 mL/min/1.73 m2 defines CKD. Patients with eGFR values>/=60 mL/min/1.73 m2 may also have CKD if evidence of persistentproteinuria is present. Additional information may be found [email or web address]. PATIENT WAS FASTINGP ERFORMED BY: [facility] Vhhohm3443 [facility] [id number] GFR/1.73 sq M.predicted MDRD (S/P/Bld) [Vol rate/Area] mL/min/{1.73_m2} Normal [facility] Work Phone: Comment on above: PATIENT WAS FASTINGP ERFORMED BY: LabG[facility] Hospital6370 [facility] [id number] GFR/1.73 sq M.predicted MDRD vol rate/area mL/min/{1.73_m2} Normal [facility] Work Phone: Comment on above: PATIENT WAS FASTINGP ERFORMED BY: LabGarden [facility] Hospital6370 [facility] [id number] Globulin (S) [Mass/Vol] 2.6 g/dL Normal 1.5-4.5 [facility] Work Phone: Comment on above: PATIENT WAS FASTINGP ERFORMED BY: LabR[facility] Sdrfmx8907 [facility] [id number] Globulin Calculated mass conc (S) 2.6 g/dL Normal 1.5-4.5 [facility] Work Phone: Glucose mass conc 89 mg/dL Normal 65-99 Compreh ensive Internal Medicine Work Phone: Comment on above: PATIENT WAS FASTINGP ERFORMED BY: [facility] Orbont1218 [facility] [id number] Potassium molar conc 4.4 mmol/L Normal 3.5-5.2 Comp rehensive Internal Medicine Work Phone: Comment on above: PATIENT WAS FASTINGP ERFORMED BY: LabR[facility] Qgefzt1228 [facility] [id number] Protein mass conc 7.1 g/dL Normal 6.0-8.5 Compreh ensive Internal Medicine Work Phone: Comment on above: PATIENT WAS FASTINGP ERFORMED BY: DEMETRIUS Morillo6370 [facility] [id number] Sodium molar conc 140 mmol/L Normal 135-145 Compreh ensive Internal Medicine Work Phone: Comment on above: PATIENT WAS FASTINGP ERFORMED BY: DEMETRIUS Morilol6370 [facility] [id number] Urea nitrogen mass conc 12 mg/dL Normal 5-26 [facility] Work Phone: Comment on above: PATIENT WAS FASTINGP ERFORMED BY: DEMETRIUS Konglin6370 [facility] [id number] Urea nitrogen/Creatinine mass ratio 14 mg/mg Normal 8-27 [facility] Work Phone: Comment on above: PATIENT WAS FASTINGP ERFORMED BY: DEMETRIUS Konglin6370 [facility] [id number] MICROALBUMINOrdered By: Shahnaz Feng on 09-21-2008 Albumin DL <= 20 mg/L mass conc (U) 21.4 ug/mL Abnormal 0.0-17.0 [facility] Work Phone: Comment on above: PATIENT WAS FASTINGP ERFORMED BY: DEMETRIUS Konglin6370 [facility] [id number] Albumin/Creatinine DL <= 20 mg/L mass ratio (U) 10.3 {ug/mg_creat} Normal 0.0-30.0 [facility] Work Phone: Comment on above: PATIENT WAS FASTINGP ERFORMED BY: DEMETRIUS LabBen Lndkvx1819 [facility] [id number] Creatinine mass conc (U) 207.1 mg/dL Normal 15.0-278.0 [facility] Work Phone: Comment on above: PATIENT WAS FASTINGP ERFORMED BY: DEMETRIUS LabBen KongGkkvvc3285 [facility] [id number] Microscopic ExaminationOrder ed By: Gas Fitter on 09-21-2008 Bacteria LM.HPF #/area (Urine sed) None seen Normal [facility] Work Phone: Casts LM Nom (Urine sed) Hyaline casts Normal [facility] Work Phone: Casts LM Ql (Urine sed) Present Abnormal [facility] Work Phone: Crystals LM Nom (Urine sed) Amorphous Sediment Normal [facility] Work Phone: Epithelial cells LM.HPF #/area (Urine sed) 0-10 Normal 0 - 10 [facility] Work Phone: Mucus LM Ql (Urine sed) Present Normal [facility] Work Phone: RBC LM.HPF #/area (Urine sed) 0-3 Normal 0 - 3 [facility] Work Phone: Unidentified crystals LM Ql (Urine sed) Present Abnormal [facility] Work Phone: WBC LM.HPF #/area (Urine sed) 6-10 Abnormal 0 - 5 [facility] Work Phone: TSH ([id number])Ordered By: Shahnaz Feng on 09-21-2008 Thyrotropin Qn 1.878 {uIU/mL} Normal 0.450-4.50 0 [facility] Work Phone: Comment on above: PATIENT WAS FASTINGP ERFORMED BY: DEMETRIUS [facility] Mpfanv1107 [employer] HealthcareAtrium Health [facility] [id number] URINALYSIS W/O MICRO ([id number]) Ordered By: Shahnaz Feng on 09-21-2008 Appearance Nom (U) Cloudy Abnormal Compre hensive Internal Medicine Work Phone: Comment on above: PATIENT WAS FASTINGP ERFORMED BY: DEMETRIUS [facility] Mwkpai7243 Vargas RoadDublin [place] [id number] Bilirubin Ql (U) Negative Normal Comprehe nsive Internal Medicine Work Phone: Comment on above: PATIENT WAS FASTINGP ERFORMED BY: CB [facility] Masjpm2808 V[address]as Road[place] [id number] Bilirubin Ql (U) Negative Normal Comprehe nsive Internal Medicine; [facility] Work Phone: Color Nom (U) Yellow Normal Comprehensi ve Internal Medicine Work Phone: Comment on above: PATIENT WAS FASTINGP ERFORMED BY: DEMETRIUS LabCoroseline [id number] [address] [facility] [id number] Glucose Ql (U) Negative Normal Comprehens [facility] Work Phone: Comment on above: PATIENT WAS FASTINGP ERFORMED BY: DEMETRIUS [facility] [id number] [facility] RoadNov[facility] [id number] Glucose Ql (U) Negative Normal Comprehens [facility]; [facility] Work Phone: Hemoglobin Ql (U) Negative Normal Compreh ensive Internal Medicine Work Phone: Comment on above: PATIENT WAS FASTINGP ERFORMED BY: DEMETRIUS LabBen [id number] Vargas RoadNovant Health [facility] [id number] Hemoglobin Ql (U) Negative Normal Compreh ensive Internal Medicine; [facility] Work Phone: Hemoglobin Test strip Ql (U) Negative Normal [facility] Work Phone: Ketones Ql (U) Negative Normal Comprehens [facility] Work Phone: Comment on above: PATIENT WAS FASTINGP ERFORMED BY: DEMETRIUS LabBen [id number] [address] [facility] [id number] Ketones Ql (U) Negative Normal Comprehens [facility]; [facility] Work Phone: Leukocyte esterase Test strip Ql (U) 1+ Abnormal [facility] Work Phone: Comment on above: PATIENT WAS FASTINGP ERFORMED BY: DEMETRIUS [facility] [id number] [address] [facility] [id number] Microscopic observation LM Nom (Urine sed) See below: Normal [facility] Work Phone: Comment on above: PATIENT WAS FASTINGP ERFORMED BY: DEMETRIUS [facility] [id number] [address] [facility] [id number] Nitrite Ql (U) Negative Normal Comprehens [facility] Work Phone: Comment on above: PATIENT WAS FASTINGP ERFORMED BY: DEMETRIUS LabBen [id number] Vargas RoadGranville Medical Centerin [place] [id number] Nitrite Ql (U) Negative Normal Comprehens [facility]; [facility] Work Phone: Nitrite Test strip Ql (U) Negative Normal [facility] Work Phone: pH (U) 7.5 [pH] Normal 5.0-7.5 [facility] Work Phone: Comment on above: PATIENT WAS FASTINGP ERFORMED BY: DEMETRIUS LabBen KongGiuimn2411 Vargas RoadGranville Medical Centerin [place] [id number] pH Test strip (U) 7.5 [pH] Normal 5.0-7.5 Compreh ensive Internal Medicine Work Phone: Protein Ql (U) Negative Normal Comprehens [facility] Work Phone: Comment on above: PATIENT WAS FASTINGP ERFORMED BY: DEMETRIUS Morillo6370 [facility] [id number] Protein Ql (U) Negative Normal Comprehens [facility]; [facility] Work Phone: Protein Test strip Ql (U) Negative Normal [facility] Work Phone: Specific gravity Relative Density (U) 1.021 1 Normal 1.005-1.03 0 [facility] Work Phone: Comment on above: PATIENT WAS FASTINGP ERFORMED BY: DEMETRIUS Morillo6370 [facility] [id number] Urobilinogen (U) [Mass/Vol] 0.2 mg/dL Normal 0.0-1.9 [facility]; [facility] Work Phone: Urobilinogen Test strip mass conc (U) 0.2 mg/dL Normal 0.0-1.9 Comprehensiv e Internal Medicine Work Phone: Comment on above: PATIENT WAS FASTINGP ERFORMED BY: DEMETRIUS LabBen [id number] [address] [facility] [id number] CCTA COR ART W/SCORINGOrdere d By: Gas Fitter on 08-24-2008 CCTA COR ART W/SCORING See Note Normal [facility] Work Phone: Comment on above: Exam Number: [id number] CARDIAC CTA REFERRING PHYSICIANShahnaz Feng, nurse practitioner. TECHNICAL ADEQUACY: Diminished. CORONARY DOMINANCE: Right. LEFT MAIN CORONARY ARTERY: This appears to be a moderate to largeshort vessel giving rise to left anterior descending and leftcircumflex coronary artery. It appears to be patent with noangiographically identifiable lesions. LEFT ANTERIOR DESCENDING CORONARY ARTERY: This is a moderate to largevessel which appears to taper to smaller vessel as it courses to the LV apex and gives rise to a small caliber diagonal branching system.The proximal LAD appears to have mild eccentric nonobstructive softplaque. The mid LAD appears to have mild diffuse mixed eccentricnonobstructive soft and calcified plaque. The proximal portion of thefirst diagonal branch appears to have mild to moderate eccentricnonobstructive soft plaque. LEFT CIRCUMFLEX CORONARY: This is a moderate to large vessel which appears to continue mainly on as a bifurcating obtuse marginal branch.The proximal LCX has mild eccentric nonobstructive calcified plaque.The proximal portion of the first obtuse marginal branch appears tohave mild eccentric nonobstructive soft plaque. RIGHT CORONARY ARTERY: This appears to be a large dominant vesselgiving rise to a small right PDA system. The ostial/proximal portionof the RCA is not well opacified/visualized. The mid to distal RCAappears to have diffuse mild eccentric nonobstructive soft plaque. LEFT VENTRICLE: Left ventricular cine appears to demonstrate overallpreserved left ventricular systolic function. LEFT ATRIUM/APPENDAGE: Patent without obvious filling defect.AORTIC VALVE/MITRAL VALVE: Tricuspid and bicuspid appearing. THORACIC AORTA: A. Aortic root: Mild eccentric calcified plaque near the take off of the right coronary artery. B. Otherwise the thoracic aorta appears to be without angiographically identifiable disease. PULMONARY ARTERY: The main pulmonary artery and proximal portions ofthe right and left pulmonary artery appear to be patent withoutobvious filling defect. CORONARY CALCIUM SCORE reported at 52.65 (normal value 0.0).This coronary calcium score would likely represent mild plaque burdenand minimal to mild coronary artery stenosis. COMMENTSuggest further evaluation of coronary anatomy/physiology with eitherexercise tolerance test/imaging study or diagnostic cardiaccatheterization as clinically indicated. Reported By: MODESTO NGUYỄN M.D. Exam Number: [id number] CARDIAC CTA REFERRING PHYSICIANShahnaz Feng, nurse practitioner. TECHNICAL ADEQUACY: Diminished. CORONARY DOMINANCE: Right. LEFT MAIN CORONARY ARTERY: This appears to be a moderate to largeshort vessel giving rise to left anterior descending and leftcircumflex coronary artery. It appears to be patent with noangiographically identifiable lesions. LEFT ANTERIOR DESCENDING CORONARY ARTERY: This is a moderate to largevessel which appears to taper to smaller vessel as it courses to the LV apex and gives rise to a small caliber diagonal branching system.The proximal LAD appears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 /min Dr. Emily Jenkins DO Work Phone: [facility] 12-29-2024 10:15-0400 Respiratory rate 16 /min Dr. Emily Jenkins DO Work Phone: [facility] 12-29-2024 10:15-0400 SaO2% (BldA) [Mass fraction] 96 % Dr. Emily Jenkins DO Work Phone: [facility] 12-29-2024 10:15-0400 Systolic blood pressure 130 mm[Hg] Dr. Emily Jenkins DO Work Phone: [facility] 12-29-2024 08:02-0400 Body height 154.[address] Emily Jenkins DO Work Phone: [facility] 12-29-2024 08:02-0400 Body mass index (BMI) [Ratio] 29.9 kg/m2 Dr. Emily Jenkins DO Work Phone: [facility] 12-29-2024 08:02-0400 Body weight [address] Emily Jenkins DO Work Phone: [facility] 12-06-2024 11:25-0400 Body height 154.[address] Emily Jenkins DO Work Phone: [facility] 12-06-2024 11:25-0400 Body mass index (BMI) [Ratio] 30.4 kg/m2 Dr. Emily Jenkins DO Work Phone: [facility] 12-06-2024 11:25-0400 Body weight 73.[address] Emily Jenkins DO Work Phone: [facility] 12-06-2024 11:25-0400 Diastolic blood pressure 83 mm[Hg] Dr. Emily Jenkins DO Work Phone: [facility] 12-06-2024 11:25-0400 Heart rate 63 /min Dr. Emily Jenkins DO Work Phone: [facility] 12-06-2024 11:25-0400 Respiratory rate 16 /min Dr. Emily Jenkins DO Work Phone: [facility] 12-06-2024 11:25-0400 Systolic blood pressure 168 mm[Hg] Dr. Emily Jenkins DO Work Phone: [facility] 11-12-2024 09:47-0400 Body mass index (BMI) [Ratio] 30.2 kg/m2 Dr. Emily Jenkins DO Work Phone: [facility] 11-12-2024 09:47-0400 Body temperature 97.3 [degF] Dr. Emily Jenkins DO Work Phone: [facility] 11-12-2024 09:47-0400 Body weight 72.[address] Emily Jenkins DO Work Phone: [facility] 11-12-2024 09:47-0400 Diastolic blood pressure 82 mm[Hg] Dr. Emily Jenkins DO Work Phone: [facility] 11-12-2024 09:47-0400 Heart rate 72 /min Dr. Emily Jenkins DO Work Phone: [facility] 11-12-2024 09:47-0400 Respiratory rate 18 /min Dr. Emily Jenkins DO Work Phone: [facility] 11-12-2024 09:47-0400 SaO2% (BldA) [Mass fraction] 97 % Dr. Emily Jenkins DO Work Phone: [facility] 11-12-2024 09:47-0400 Systolic blood pressure 150 mm[Hg] Dr. Emily Jenkins DO Work Phone: [facility] 11-03-2024 23:07-0400 Body temperature 97.8 [degF] Dr. Emily Jenkins DO Work Phone: [facility] 11-03-2024 23:07-0400 Diastolic blood pressure 77 mm[Hg] Dr. Emily Jenkins DO Work Phone: [facility] 11-03-2024 23:07-0400 Heart rate 61 /min Dr. Emily Jenkins DO Work Phone: [facility] 11-03-2024 23:07-0400 Respiratory rate 16 /min Dr. Emily Jenkins DO Work Phone: [facility] 11-03-2024 23:07-0400 SaO2% (BldA) [Mass fraction] 99 % Dr. Emily Jenkins DO Work Phone: [facility] 11-03-2024 23:07-0400 Systolic blood pressure 177 mm[Hg] Dr. Emily Jenkins DO Work Phone: [facility] 11-03-2024 17:28-0400 Body height 154.[address] Emily Jenkins DO Work Phone: [facility] 11-03-2024 17:28-0400 Body mass index (BMI) [Ratio] 29.8 kg/m2 Dr. Emily Jenkins DO Work Phone: [facility] 11-03-2024 17:28-0400 Body weight 71.[address] Emily Jenkins DO Work Phone: [facility] 10-27-2024 09:22-0400 Body temperature 97 [degF] Jayne Benjamin SPECIAL OFFICER.MILL [employer] Work Phone: [facility] 10-27-2024 09:22-0400 Body weight 72.4 kg Jayne Benjamin SPECIAL OFFICER.MI[employer] Work Phone: [facility] 10-27-2024 09:22-0400 Diastolic blood pressure 70 mm[Hg] Jayne Benjamin SPECIAL OFFICER.MILL [employer] Work Phone: [facility] 10-27-2024 09:22-0400 Heart rate 78 /min Jayne Benjamin SPECIAL OFFICER.MI[employer] Work Phone: [facility] 10-27-2024 09:22-0400 Respiratory rate 16 /min Jayne Benjamin SPECIAL OFFICER.MILL [employer]EDER Work Phone: [facility] 10-27-2024 09:22-0400 SaO2% (BldA) [Mass fraction] 96 % Jayne Benjamin SPECIAL OFFICER.MILL FEEDER Work Phone: [facility] 10-27-2024 09:22-0400 Systolic blood pressure 122 mm[Hg] Jayne Navalisy RODARTE.MILL FEEDER Work Phone: [facility] 09-14-2023 13:22-0400 Body temperature 97.39 [degF] Glory Palmer APRN.MILL FEEDER Work Phone: [facility] 09-14-2023 13:22-0400 Body weight 73.1 kg Glory Palmer APRN.MILL FEEDER Work Phone: [facility] 09-14-2023 13:22-0400 Diastolic blood pressure 72 mm[Hg] Glory Palmer APRN.MILL FEEDER Work Phone: [facility] 09-14-2023 13:22-0400 Heart rate 79 /min Glory Palmer APRN.MILL FEEDER Work Phone: [facility] 09-14-2023 13:22-0400 Respiratory rate 19 /min Glory Palmer APRN.MILL FEEDER Work Phone: [facility] 09-14-2023 13:22-0400 SaO2% (BldA) [Mass fraction] 96 % Glory Palmer APRN.MILL FEEDER Work Phone: [facility] 09-14-2023 13:22-0400 Systolic blood pressure 140 mm[Hg] Glory Palmer APRN.MILL FEEDER Work Phone: [facility] 08-11-2023 03:15-0500 Body temperature 97.9 [degF] Dr. Emily Jenkins Work Phone: [facility] 08-11-2023 03:15-0500 Diastolic blood pressure 73 mm[Hg] Dr. Emily Jenkins Work Phone: [facility] 08-11-2023 03:15-0500 Heart rate 62 /min Dr. Emily Jenkins Work Phone: [facility] 08-11-2023 03:15-0500 Respiratory rate 18 /min Dr. Emily Jenkins Work Phone: [facility] 08-11-2023 03:15-0500 SaO2% (BldA) [Mass fraction] 97 % Dr. Emily Jenkins Work Phone: [facility] 08-11-2023 03:15-0500 Systolic blood pressure 166 mm[Hg] Dr. Emily Jenkins Work Phone: [facility] 08-11-2023 00:29-0500 Body height 154.[address] Emily Jenkins Work Phone: [facility] 08-11-2023 00:29-0500 Body mass index (BMI) [Ratio] 30.4 kg/m2 Dr. Emily Jenkins Work Phone: [facility] 08-11-2023 00:29-0500 Body weight 73.[address] Emily Jenkins Work Phone: [facility] 08-05-2023 15:21-0500 Body mass index (BMI) [Ratio] 30.2 kg/m2 Dr. Emily Jenkins Work Phone: [facility] 08-05-2023 15:21-0500 Body weight 72.[address] Emily Jenkins Work Phone: [facility] 08-05-2023 15:21-0500 Diastolic blood pressure 81 mm[Hg] Dr. Emily Jenkins Work Phone: [facility] 08-05-2023 15:21-0500 Systolic blood pressure 134 mm[Hg] Dr. Emily Jenkins Work Phone: [facility] 07-29-2023 11:44-0500 Body mass index (BMI) [Ratio] 30.1 kg/m2 Dr. Emily Jenkins Work Phone: [facility] 07-29-2023 11:44-0500 Body weight 72.[address] Emily Jenkins Work Phone: [facility] 07-29-2023 11:44-0500 Diastolic blood pressure 81 mm[Hg] Dr. Emily Jenkins Work Phone: [facility] 07-29-2023 11:44-0500 Systolic blood pressure 165 mm[Hg] Dr. Emily Jenkins Work Phone: [facility] 07-22-2023 14:49-0500 Body temperature 97.8 [degF] Dr. Emily Jenkins Work Phone: [facility] 07-22-2023 14:49-0500 Diastolic blood pressure 62 mm[Hg] Dr. Emily Jenkins Work Phone: [facility] 07-22-2023 14:49-0500 Heart rate 68 /min Dr. Emily Jenkins Work Phone: [facility] 07-22-2023 14:49-0500 Respiratory rate 16 /min Dr. Emily Jenkins Work Phone: [facility] 07-22-2023 14:49-0500 SaO2% (BldA) [Mass fraction] 98 % Dr. Emily Jenkins Work Phone: [facility] 07-22-2023 14:49-0500 Systolic blood pressure 130 mm[Hg] Dr. Emily Jenkins Work Phone: [facility] 07-22-2023 11:45-0500 Body height 154.[address] Emily Jenkins Work Phone: [facility] 07-22-2023 11:45-0500 Body mass index (BMI) [Ratio] 29.6 kg/m2 Dr. Emily Jenkins Work Phone: [facility] 07-22-2023 11:45-0500 Body weight 71.[address] Emily Jenkins Work Phone: [facility] 07-16-2023 14:41-0500 Body mass index (BMI) [Ratio] 29.5 kg/m2 Dr. Emily Jenkins Work Phone: [facility] 07-16-2023 14:41-0500 Body weight 70.[address] Emily Jenkins Work Phone: [facility] 07-16-2023 14:41-0500 Diastolic blood pressure 78 mm[Hg] Dr. Emily Jenkins Work Phone: [facility] 07-16-2023 14:41-0500 Heart rate 72 /min Dr. Emily Jenkins Work Phone: [facility] 07-16-2023 14:41-0500 Respiratory rate 17 /min Dr. Emily Jenkins Work Phone: [facility] 07-16-2023 14:41-0500 SaO2% (BldA) [Mass fraction] 97 % Dr. Emily Jenkins Work Phone: [facility] 07-16-2023 14:41-0500 Systolic blood pressure 133 mm[Hg] Dr. Emily Jenkins Work Phone: [facility] 07-03-2023 14:32-0500 Body mass index (BMI) [Ratio] 29.3 kg/m2 Dr. Emily Jenkins Work Phone: [facility] 07-03-2023 14:32-0500 Body weight 70.[address] Emily Jenkins Work Phone: [facility] 07-03-2023 14:32-0500 Diastolic blood pressure 66 mm[Hg] Dr. Emily Jenkins Work Phone: [facility] 07-03-2023 14:32-0500 Systolic blood pressure 177 mm[Hg] Dr. Emily Jenkins Work Phone: [facility] 07-02-2023 00:10-0500 Diastolic blood pressure 87 mm[Hg] Dr. Emily Jenkins Work Phone: [facility] 07-02-2023 00:10-0500 Heart rate 66 /min Dr. Emily Jenkins Work Phone: [facility] 07-02-2023 00:10-0500 Respiratory rate 16 /min Dr. Emily Jenkins Work Phone: [facility] 07-02-2023 00:10-0500 SaO2% (BldA) [Mass fraction] 98 % Dr. Emily Jenkins Work Phone: [facility] 07-02-2023 00:10-0500 Systolic blood pressure 120 mm[Hg] Dr. Emily Jenkins Work Phone: [facility] 07-01-2023 17:18-0500 Body mass index (BMI) [Ratio] 29.8 kg/m2 Dr. Emily Jenkins Work Phone: [facility] 07-01-2023 17:18-0500 Body temperature 97.4 [degF] Dr. Emily Jenkins Work Phone: [facility] 07-01-2023 17:18-0500 Body weight 71.[address] Emily Jenkins Work Phone: [facility] 06-03-2023 09:36-0500 Body mass index (BMI) [Ratio] 29.8 kg/m2 Dr. Emily Jenkins Work Phone: [facility] 06-03-2023 09:36-0500 Body weight 71.[address] Emily Jenkins Work Phone: [facility] 06-03-2023 09:36-0500 Diastolic blood pressure 76 mm[Hg] Dr. Emily Jenkins Work Phone: [facility] 06-03-2023 09:36-0500 Systolic blood pressure 134 mm[Hg] Dr. Emily Jenkins Work Phone: [facility] 04-23-2023 11:46-0400 Body height 154.[address] Emily Jenkins Work Phone: [facility] 04-23-2023 11:29-0400 Body mass index (BMI) [Ratio] 24.5 kg/m2 Dr. Emily Jenkins Work Phone: [facility] 04-23-2023 11:29-0400 Body weight 69.[address] Emily Jenkins Work Phone: [facility] 04-23-2023 11:29-0400 Diastolic blood pressure 72 mm[Hg] Dr. Emily Jenkins Work Phone: [facility] 04-23-2023 11:29-0400 Systolic blood pressure 136 mm[Hg] Dr. Emily Jenkins Work Phone: [facility] 04-02-2023 10:52-0400 Body height 156.21 cm [facility]; [facility] Work Phone: 04-02-2023 10:52-0400 Body mass index (BMI) [Ratio] 28.25 kg/m2 [facility] [facility]; [facility] Work Phone: 04-02-2023 10:52-0400 Body surface area Derived from formula 1.69 m2 [facility]; [facility] Work Phone: 04-02-2023 10:52-0400 Body temperature 97.6 [degF] [facility]; [facility] Work Phone: 04-02-2023 10:52-0400 Body weight 68.95 kg [facility]; [facility] Work Phone: 04-02-2023 10:52-0400 Diastolic blood pressure 78 mm[Hg] [facility]; [facility] Work Phone: 04-02-2023 10:52-0400 Heart rate 65 /min [facility]; [facility] Work Phone: 04-02-2023 10:52-0400 Respiratory rate 18 /min [facility]; [facility] Work Phone: 04-02-2023 10:52-0400 SaO2% (BldA) [Mass fraction] 95 % [facility]; [facility] Work Phone: 04-02-2023 10:52-0400 Systolic blood pressure 128 mm[Hg] [facility]; [facility] Work Phone: 03-21-2023 14:30-0400 Heart rate 72 /min Dr. Emily Jenkins Work Phone: [facility] 03-21-2023 14:30-0400 Respiratory rate 16 /min Dr. Emily Jenkins Work Phone: [facility] 03-21-2023 14:10-0400 Body mass index (BMI) [Ratio] 30.7 kg/m2 Dr. Emily Jenkins Work Phone: [facility] 03-21-2023 14:10-0400 Body weight 73.[address] Emily Jenkins Work Phone: [facility] 03-21-2023 13:37-0400 Body temperature 97 [degF] Dr. Emily Jenkins Work Phone: [facility] 03-21-2023 13:37-0400 Diastolic blood pressure 80 mm[Hg] Dr. Emily Jenkins Work Phone: [facility] 03-21-2023 13:37-0400 SaO2% (BldA) [Mass fraction] 100 % Dr. Emily Jenkins Work Phone: [facility] 03-21-2023 13:37-0400 Systolic blood pressure 153 mm[Hg] Dr. Emily Jenkins Work Phone: [facility] 03-17-2023 10:24-0400 Diastolic Blood Pressure Non-Invasive 71 1 SEEMA CANCHOLA MD [facility] 03-17-2023 10:24-0400 Heart rate 88 /min SEEMA CANCHOLA MD [facility] 03-17-2023 10:24-0400 Respiratory rate 16 /min SEEMA CANCHOLA MD [facility] 03-17-2023 10:24-0400 Systolic Blood Pressure Non-Invasive 158 1 SEEMA CANCHOLA MD [facility] 03-17-2023 08:26-0400 Body temperature 98.06 [degF] SEEMA CANCHOLA MD [facility] 03-17-2023 08:26-0400 Diastolic Blood Pressure Non-Invasive 77 1 SEEMA CANCHOLA MD [facility] 03-17-2023 08:26-0400 Heart rate 62 /min SEEMA CANCHOLA MD [facility] 03-17-2023 08:26-0400 Respiratory rate 16 /min SEEMA CANCHOLA MD [facility] 03-17-2023 08:26-0400 Systolic Blood Pressure Non-Invasive 164 1 SEEMA CANCHOLA MD [facility] 03-15-2023 12:29-0400 Blood Pressure Location CRISSY CAMACHO MD [facility] 03-15-2023 12:29-0400 Body temperature 98.6 [degF] CRISSY CAMACHO MD [facility] 03-15-2023 12:29-0400 Diastolic Blood Pressure Non-Invasive 82 1 CRISSY CAMACHO MD [facility] 03-15-2023 12:29-0400 Heart rate 65 /min CRISSY CAMACHO MD [facility] 03-15-2023 12:29-0400 Systolic Blood Pressure Non-Invasive 186 1 CRISSY CAMACHO MD [facility] 03-10-2023 09:40-0400 Body height 156.21 cm ARMANI Yancey LPN [facility]; [facility] Work Phone: 03-10-2023 09:40-0400 Body mass index (BMI) [Ratio] 29.56 kg/m2 ARMANI Yancey LPN [facility]; [facility] Work Phone: 03-10-2023 09:40-0400 Body surface area Derived from formula 1.72 m2 ARMANI Yancey LPN [facility]; [facility] Work Phone: 03-10-2023 09:40-0400 Body temperature 97.6 [degF] ARMANI Yancey LPN [facility]; [facility] Work Phone: 03-10-2023 09:40-0400 Body weight 72.12 kg ARMANI Yancey LPN [facility]; [facility] Work Phone: 03-10-2023 09:40-0400 Diastolic blood pressure 80 mm[Hg] ARMANI Yancey LPN [facility]; [facility] Work Phone: 03-10-2023 09:40-0400 Heart rate 70 /min ARMANI Yancey LPN [facility]; [facility] Work Phone: 03-10-2023 09:40-0400 Respiratory rate 18 /min ARMANI Yancey LPN [facility]; [facility] Work Phone: 03-10-2023 09:40-0400 SaO2% (BldA) [Mass fraction] 96 % ARMANI Yancey LPN [facility]; [facility] Work Phone: 03-10-2023 09:40-0400 Systolic blood pressure 130 mm[Hg] ARMANI Yancey LPN [facility]; [facility] Work Phone: 10-23-2022 12:06-0400 Body height 156.21 cm [facility]; [facility] Work Phone: 10-23-2022 12:06-0400 Body mass index (BMI) [Ratio] 30.49 kg/m2 [facility]; [facility] Work Phone: 10-23-2022 12:06-0400 Body surface area Derived from formula 1.75 m2 [facility]; [facility] Work Phone: 10-23-2022 12:06-0400 Body temperature 97.1 [degF] [facility]; [facility] Work Phone: 10-23-2022 12:06-0400 Body weight 74.39 kg [facility]; [facility] Work Phone: 10-23-2022 12:06-0400 Diastolic blood pressure 70 mm[Hg] [facility]; [facility] Work Phone: 10-23-2022 12:06-0400 Heart rate 62 /min [facility]; [facility] Work Phone: 10-23-2022 12:06-0400 Respiratory rate 16 /min [facility]; [facility] Work Phone: 10-23-2022 12:06-0400 SaO2% (BldA) [Mass fraction] 97 % [facility]; [facility] Work Phone: 10-23-2022 12:06-0400 Systolic blood pressure 116 mm[Hg] [facility]; [facility] Work Phone: 08-05-2022 11:07-0500 Body height 156.21 cm [facility]; [facility] Work Phone: 08-05-2022 11:07-0500 Body mass index (BMI) [Ratio] 29.37 kg/m2 [facility]; [facility] Work Phone: 08-05-2022 11:07-0500 Body surface area Derived from formula 1.72 m2 [facility]; [facility] Work Phone: 08-05-2022 11:07-0500 Body temperature 96.9 [degF] [facility]; [facility] Work Phone: 08-05-2022 11:07-0500 Body weight 71.67 kg [facility]; [facility] Work Phone: 08-05-2022 11:07-0500 Diastolic blood pressure 78 mm[Hg] [facility]; [facility] Work Phone: 08-05-2022 11:07-0500 Heart rate 66 /min [facility]; [facility] Work Phone: 08-05-2022 11:07-0500 Respiratory rate 16 /min [facility]; [facility] Work Phone: 08-05-2022 11:07-0500 SaO2% (BldA) [Mass fraction] 96 % [facility]; [facility] Work Phone: 08-05-2022 11:07-0500 Systolic blood pressure 122 mm[Hg] [facility]; [facility] Work Phone: 07-27-2022 20:22-0500 Diastolic blood pressure 69 mm[Hg] Dr. Emily Jenkins Work Phone: [facility] 07-27-2022 20:22-0500 Systolic blood pressure 147 mm[Hg] Dr. Emily Jenkins Work Phone: [facility] 07-27-2022 19:07-0500 Heart rate 69 /min Dr. Emily Jenkins Work Phone: [facility] 07-27-2022 19:07-0500 Respiratory rate 14 /min Dr. Emily Jenkins Work Phone: [facility] 07-27-2022 19:07-0500 SaO2% (BldA) [Mass fraction] 99 % Dr. Emily Jenkins Work Phone: [facility] 07-27-2022 18:24-0500 Body height 154.[address] Emily Jenkins Work Phone: [facility] 07-27-2022 18:24-0500 Body mass index (BMI) [Ratio] 30.2 kg/m2 Dr. Emily Jenkins Work Phone: [facility] 07-27-2022 18:24-0500 Body temperature 97.1 [degF] Dr. Emily Jenkins Work Phone: [facility] 07-27-2022 18:24-0500 Body weight 72.[address] Emily Jenkins Work Phone: [facility] 07-24-2022 12:59-0500 Body mass index (BMI) [Ratio] 30.2 kg/m2 Dr. Emily Jenkins Work Phone: [facility] 07-24-2022 12:59-0500 Body weight 72.[address] Emily Jenkins Work Phone: [facility] 07-24-2022 12:59-0500 Diastolic blood pressure 77 mm[Hg] Dr. Emily Jenkins Work Phone: [facility] 07-24-2022 12:59-0500 Heart rate 64 /min Dr. Emily Jenkins Work Phone: [facility] 07-24-2022 12:59-0500 Respiratory rate 18 /min Dr. Emily Jenkins Work Phone: [facility] 07-24-2022 12:59-0500 SaO2% (BldA) [Mass fraction] 98 % Dr. Emily Jenkins Work Phone: [facility] 07-24-2022 12:59-0500 Systolic blood pressure 157 mm[Hg] Dr. Emily Jenkins Work Phone: [facility] 07-15-2022 01:53-0500 Diastolic blood pressure 67 mm[Hg] Dr. Emily Jenkins Work Phone: [facility] 07-15-2022 01:53-0500 Heart rate 66 /min Dr. Emily Jenkins Work Phone: [facility] 07-15-2022 01:53-0500 Respiratory rate 15 /min Dr. Emily Jenkins Work Phone: [facility] 07-15-2022 01:53-0500 Systolic blood pressure 146 mm[Hg] Dr. Emily Jenkins Work Phone: [facility] 07-14-2022 23:57-0500 Body height 154.[address] Emily Jenkins Work Phone: [facility] 07-14-2022 23:57-0500 Body mass index (BMI) [Ratio] 30.9 kg/m2 Dr. Emily Jenkins Work Phone: [facility] 07-14-2022 23:57-0500 Body temperature 97.8 [degF] Dr. Emily Jenkins Work Phone: [facility] 07-14-2022 23:57-0500 Body weight 74.[address] Emily Jenkins Work Phone: [facility] 07-14-2022 23:57-0500 SaO2% (BldA) [Mass fraction] 99 % Dr. Emily Jenkins Work Phone: [facility] 07-13-2022 21:25-0500 Diastolic blood pressure 70 mm[Hg] Dr. Emily Jenkins Work Phone: [facility] 07-13-2022 21:25-0500 SaO2% (BldA) [Mass fraction] 98 % Dr. Emily Jenkins Work Phone: [facility] 07-13-2022 21:25-0500 Systolic blood pressure 145 mm[Hg] Dr. Emily Jenkins Work Phone: [facility] 07-13-2022 19:39-0500 Respiratory rate 15 /min Dr. Emily Jenkins Work Phone: [facility] 07-13-2022 19:29-0500 Body height 154.[address] Emily Jenkins Work Phone: [facility] 07-13-2022 19:29-0500 Body mass index (BMI) [Ratio] 29.6 kg/m2 Dr. Emily Jenkins Work Phone: [facility] 07-13-2022 19:29-0500 Body temperature 98 [degF] Dr. Emily Jenkins Work Phone: [facility] 07-13-2022 19:29-0500 Body weight 71.[address] Emily Jenkins Work Phone: [facility] 07-13-2022 19:29-0500 Heart rate 71 /min Dr. Emily Jenkins Work Phone: [facility] 06-18-2022 14:27-0500 Body temperature 97.7 [degF] Dr. Emily Jenkins Work Phone: [facility] 06-18-2022 14:27-0500 Diastolic blood pressure 82 mm[Hg] Dr. Emily Jenkins Work Phone: [facility] 06-18-2022 14:27-0500 Heart rate 84 /min Dr. Emily Jenkins Work Phone: [facility] 06-18-2022 14:27-0500 Respiratory rate 18 /min Dr. Emily Jenkins Work Phone: [facility] 06-18-2022 14:27-0500 SaO2% (BldA) [Mass fraction] 97 % Dr. Emily Jenkins Work Phone: [facility] 06-18-2022 14:27-0500 Systolic blood pressure 162 mm[Hg] Dr. Emily Jenkins Work Phone: [facility] 06-07-2022 10:01-0500 Body height 156.21 cm Erika Eller [facility]; [facility] Work Phone: 06-07-2022 10:01-0500 Body mass index (BMI) [Ratio] 29.37 kg/m2 Erika Eller [facility]; [facility] Work Phone: 06-07-2022 10:01-0500 Body surface area Derived from formula 1.72 m2 Erikajulian Eller [facility]; [facility] Work Phone: 06-07-2022 10:01-0500 Body temperature 98.1 [degF] Erika Eller [facility]; [facility] Work Phone: 06-07-2022 10:01-0500 Body weight 71.67 kg Erikajulian Eller [facility]; [facility] Work Phone: 06-07-2022 10:01-0500 Diastolic blood pressure 70 mm[Hg] Erika Eller [facility]; [facility] Work Phone: 06-07-2022 10:01-0500 Heart rate 69 /min Erika Eller [facility]; [facility] Work Phone: 06-07-2022 10:01-0500 Respiratory rate 16 /min [facility]; [facility] Work Phone: 06-07-2022 10:01-0500 SaO2% (BldA) [Mass fraction] 98 % Erika Eller [facility]; [facility] Work Phone: 06-07-2022 10:01-0500 Systolic blood pressure 122 mm[Hg] Erika Eller [facility]; [facility] Work Phone: 02-04-2022 09:57-0400 Body height 156.21 cm Carole Villanueva [facility]; [facility] Work Phone: 02-04-2022 09:57-0400 Body mass index (BMI) [Ratio] 29.37 kg/m2 Carole Villanueva [facility]; [facility] Work Phone: 02-04-2022 09:57-0400 Body surface area Derived from formula 1.72 m2 Carole Villanueva [facility]; [facility] Work Phone: 02-04-2022 09:57-0400 Body temperature 97.3 [degF] Carole Villanueva [facility]; [facility] Work Phone: 02-04-2022 09:57-0400 Body weight 71.67 kg Carole Villanueva [facility]; [facility] Work Phone: 02-04-2022 09:57-0400 Diastolic blood pressure 78 mm[Hg] Carole Villanueva [facility]; [facility] Work Phone: 02-04-2022 09:57-0400 Heart rate 71 /min Carole Villanueva [facility]; [facility] Work Phone: 02-04-2022 09:57-0400 Respiratory rate 16 /min Carole Villanueva [facility]; [facility] Work Phone: 02-04-2022 09:57-0400 SaO2% (BldA) [Mass fraction] 95 % Carole Villanueva [facility]; [facility] Work Phone: 02-04-2022 09:57-0400 Systolic blood pressure 130 mm[Hg] Carole Villanueva [facility]; [facility] Work Phone: 09-13-2021 19:08-0400 Body temperature 98.1 [degF] Jayne Benjamin SPECIAL OFFICER.[employer] Work Phone: [facility] 09-13-2021 19:08-0400 Body weight 72.76 kg Jayne Benjamin SPECIAL OFFICER.[employer] Work Phone: [facility] 09-13-2021 19:08-0400 Diastolic blood pressure 78 mm[Hg] Jayne Benjamin SPECIAL OFFICER.MI[employer] Work Phone: [facility] 09-13-2021 19:08-0400 Heart rate 60 /min Jayne Benjamin SPECIAL OFFICER.MI[employer] Work Phone: [facility] 09-13-2021 19:08-0400 Respiratory rate 18 /min Jayne Benjamin SPECIAL OFFICER.MI[employer] Work Phone: [facility] 09-13-2021 19:08-0400 SaO2% (BldA) [Mass fraction] 96 % Jayne Benjamin SPECIAL OFFICER.MI[employer] Work Phone: [facility] 09-13-2021 19:08-0400 Systolic blood pressure 122 mm[Hg] Jayne Benjamin SPECIAL OFFICER.MI[employer]ER Work Phone: [facility] 09-10-2021 11:39-0400 Body height 156.21 cm Emily Alice DO Work Phone: [facility] Work Phone: 09-10-2021 11:39-0400 Body mass index (BMI) [Ratio] 29 kg/m2 Emily Alice DO Work Phone: [facility]; [facility] Work Phone: 09-10-2021 11:39-0400 Body surface area Derived from formula 1.71 m2 Emily Alice DO Work Phone: [facility]; [facility] Work Phone: 09-10-2021 11:39-0400 Body weight 70.76 kg Emily Alice DO Work Phone: [facility]; [facility] Work Phone: 09-10-2021 11:39-0400 Diastolic blood pressure 72 mm[Hg] Emily Alice DO Work Phone: [facility]; [facility] Work Phone: 09-10-2021 11:39-0400 Heart rate 80 /min Emily Jenkins DO Work Phone: [facility]; [facility] Work Phone: 09-10-2021 11:39-0400 Systolic blood pressure 128 mm[Hg] Emily Jenkins DO Work Phone: [facility]; [facility] Work Phone: 08-24-2021 09:34-0500 Body height 156.21 cm Leisa Smith LPN [facility]; [facility] Work Phone: 08-24-2021 09:34-0500 Body mass index (BMI) [Ratio] 29.18 kg/m2 Leisa Rickyrb CRIMINOLOGY TEACHER [facility]; [facility] Work Phone: 08-24-2021 09:34-0500 Body surface area Derived from formula 1.71 m2 Leisa Slarb CRIMINOLOGY TEACHER [facility]; [facility] Work Phone: 08-24-2021 09:34-0500 Body weight 71.22 kg Leisa Sarah HARVEY [facility]; [facility] Work Phone: 08-24-2021 09:34-0500 Diastolic blood pressure 78 mm[Hg] Leisa Sarah PATELN [facility]; [facility] Work Phone: 08-24-2021 09:34-0500 Systolic blood pressure 128 mm[Hg] Leisa Slarb CANDICE [facility]; [facility] Work Phone: 07-24-2021 10:54-0500 Body height 154.[address] Emily Jenkins Work Phone: [facility] Work Phone: 07-24-2021 10:54-0500 Body weight 72.[address] Emily Jenkins Work Phone: [facility] Work Phone: 07-24-2021 10:54-0500 Diastolic blood pressure 85 mm[Hg] Dr. Emily Jenkins Work Phone: [facility] Work Phone: 07-24-2021 10:54-0500 Heart rate 72 /min Dr. Emily Jenkins Work Phone: [facility] Work Phone: 07-24-2021 10:54-0500 Respiratory rate 16 /min Dr. Emily Jenkins Work Phone: [facility] Work Phone: 07-24-2021 10:54-0500 SaO2% (BldA) [Mass fraction] 96 % Dr. Emily Jenkins Work Phone: [facility] Work Phone: 07-24-2021 10:54-0500 Systolic blood pressure 161 mm[Hg] Dr. Emily Jenkins Work Phone: [facility] Work Phone: 04-25-2021 11:50-0400 Body height 156.21 cm Emily Alice DO Work Phone: [facility] Work Phone: 04-25-2021 11:50-0400 Body mass index (BMI) [Ratio] 29.37 kg/m2 Emily Jenkins DO Work Phone: [facility] Work Phone: 04-25-2021 11:50-0400 Body surface area Derived from formula 1.72 m2 Emily Alice DO Work Phone: [facility]; [facility] Work Phone: 04-25-2021 11:50-0400 Body temperature 97.1 [degF] Emily Jenkins DO Work Phone: [facility]; [facility] Work Phone: 04-25-2021 11:50-0400 Body weight 71.67 kg Emily Mondragonon DO Work Phone: [facility]; [facility] Work Phone: 04-25-2021 11:50-0400 Diastolic blood pressure 78 mm[Hg] Emily Alice DO Work Phone: [facility]; [facility] Work Phone: 04-25-2021 11:50-0400 Respiratory rate 16 /min Emily Jenkins DO Work Phone: [facility]; [facility] Work Phone: 04-25-2021 11:50-0400 Systolic blood pressure 126 mm[Hg] Emilyshane Jenkins DO Work Phone: [facility]; [facility] Work Phone: 12-19-2020 11:30-0400 Body mass index (BMI) [Ratio] 30.8 kg/m2 Dr. Emily Jenkins Work Phone: [facility] Work Phone: 12-13-2020 11:37-0400 Body height 156.21 cm Carole Villanueva [facility]; [facility] Work Phone: 12-13-2020 11:37-0400 Body mass index (BMI) [Ratio] 29.37 kg/m2 Carole Gravius [facility]; [facility] Work Phone: 12-13-2020 11:37-0400 Body surface area Derived from formula 1.72 m2 Carole Yinius [facility]; [facility] Work Phone: 12-13-2020 11:37-0400 Body temperature 97.3 [degF] Carole Villanueva [facility]; [facility] Work Phone: 12-13-2020 11:37-0400 Body weight 71.67 kg Carole Villanueva [facility]; [facility] Work Phone: 12-13-2020 11:37-0400 Diastolic blood pressure 82 mm[Hg] Carole Villanueva [facility]; [facility] Work Phone: 12-13-2020 11:37-0400 Heart rate 57 /min Carole Villanueva [facility]; [facility] Work Phone: 12-13-2020 11:37-0400 Respiratory rate 18 /min Carole Villanueva [facility] Work Phone: 12-13-2020 11:37-0400 SaO2% (BldA) [Mass fraction] 98 % Carole Villanueva [facility]; [facility] Work Phone: 12-13-2020 11:37-0400 Systolic blood pressure 122 mm[Hg] Carole Villanueva [facility]; [facility] Work Phone: 08-09-2020 09:01-0500 BMI (Body Mass Index) 29.93 kg/m2 [facility]; [facility] Work Phone: 08-09-2020 09:01-0500 Body Temperature 97.1 [degF] [facility] Internal Medicine; [facility] Work Phone: Comment on above: Method: Thermal Scan 08-09-2020 09:01-0500 Body weight 73.03 kg [facility]; [facility] Work Phone: 08-09-2020 09:01-0500 BP Diastolic 78 mm[Hg] [facility]; [facility] Work Phone: Comment on above: Patient Position: Si tting; Cuff Location: Left Arm; Cuff Size: Standard 08-09-2020 09:01-0500 BP Systolic 142 mm[Hg] [facility]; [facility] Work Phone: Comment on above: Patient Position: Si tting; Cuff Location: Left Arm; Cuff Size: Standard 08-09-2020 09:01-0500 BSA (Body Surface Area) 1.73 m2 [facility]; [facility] Work Phone: 08-09-2020 09:01-0500 Height 156.21 cm [facility]; [facility] Work Phone: 08-09-2020 09:01-0500 Pulse (Heart Rate) 82 /min [facility] Medicine; [facility] Work Phone: Comment on above: Pattern: Regular 08-09-2020 09:01-0500 Pulse Oximetry 92 % Emily Jenkins [facility]; [facility] Work Phone: Comment on above: Room air 08-09-2020 09:01-0500 Respiratory Rate 16 /min [facility]; [facility] Work Phone: Comment on above: Pattern: Unlabored 08-09-2020 09:01-0500 SaO2% (BldA) [Mass fraction] 92 % [facility]; [facility] Work Phone: 06-12-2020 10:56-0500 BMI (Body Mass Index) 29.18 kg/m2 Carole Villanueva [facility] Medicine; [facility] Work Phone: Comment on above: no vs taken as this is phone encounter due to covid 06-12-2020 10:56-0500 Body weight 71.22 kg Carole Villanueva [facility]; [facility] Work Phone: Comment on above: no vs taken as this is phone encounter due to covid 06-12-2020 10:56-0500 BSA (Body Surface Area) 1.71 m2 Carole Villanueva [facility]; [facility] Work Phone: Comment on above: no vs taken as this is phone encounter due to covid 06-12-2020 10:56-0500 Height 156.21 cm Carole Villanueva [facility]; [facility] Work Phone: Comment on above: no vs taken as this is phone encounter due to covid 04-14-2020 10:04-0400 BMI (Body Mass Index) 29.74 kg/m2 Sonal Gómez [facility] Internal Medicine Work Phone: 04-14-2020 10:04-0400 Body Temperature 97.1 [degF] Sonal Rico [facility] Internal Medicine Work Phone: Comment on above: Method: Thermal Scan 04-14-2020 [id number] Body weight 72.58 kg Sonal Rico [facility] Internal Medicine Work Phone: 04-14-2020 10:04-0400 BP Diastolic 86 mm[Hg] [facility] Internal Medicine Work Phone: Comment on above: Patient Position: Si tting; Cuff Location: Left Arm; Cuff Size: Standard 04-14-2020 10:04-0400 BP Systolic 137 mm[Hg] [facility] Internal Medicine Work Phone: Comment on above: Patient Position: Si tting; Cuff Location: Left Arm; Cuff Size: Standard 04-14-2020 10:04-0400 BSA (Body Surface Area) 1.73 m2 [facility] Work Phone: 04-14-2020 10:04-0400 Height 156.21 cm Sonal Rico [facility] Internal Medicine Work Phone: 04-14-2020 10:04-0400 Pulse (Heart Rate) 71 /min Sonal Gómez [facility] Comprehensiv e Internal Medicine Work Phone: Comment on above: Pattern: Regular 04-14-2020 10:04-0400 Pulse Oximetry 97 % Emily Jenkins [facility] Work Phone: Comment on above: Room air 04-14-2020 10:04-0400 Respiratory Rate 16 /min Sonalrima Gómez [facility] Medicine Work Phone: Comment on above: Pattern: Unlabored 04-14-2020 10:04-0400 SaO2% (BldA) [Mass fraction] 97 % [facility]; [facility] Work Phone: 04-10-2020 10:53-0400 BMI (Body Mass Index) 29.93 kg/m2 Carole Villanueva [facility] Medicine Work Phone: Comment on above: no vs taken as this is phone encounter due to covid 04-10-2020 10:53-0400 Body weight 73.03 kg Carole Villanueva [facility] Internal Medicine Work Phone: Comment on above: no vs taken as this is phone encounter due to covid 04-10-2020 10:53-0400 BSA (Body Surface Area) 1.73 m2 Carole Villanueva [facility] Medicine Work Phone: Comment on above: no vs taken as this is phone encounter due to covid 04-10-2020 10:53-0400 Height 156.21 cm Carole Villanueva [facility] Medicine Work Phone: Comment on above: no vs taken as this is phone encounter due to covid 11-26-2019 09:44-0400 BMI (Body Mass Index) 29.93 kg/m2 Santos Child RN [facility] Work Phone: Comment on above: Vital signs not obta ined d/t call or virtual visit 11-26-2019 09:44-0400 Body weight 73.03 kg Santos Child RN [facility] Work Phone: Comment on above: Vital signs not obta ined d/t call or virtual visit 11-26-2019 09:44-0400 BSA (Body Surface Area) 1.73 m2 Santos Child RN [facility] Work Phone: Comment on above: Vital signs not obta ined d/t call or virtual visit 11-26-2019 09:44-0400 Height 156.21 cm Santos Child RN [facility] Work Phone: Comment on above: Vital signs not obta ined d/t call or virtual visit 07-19-2019 10:36-0500 BMI (Body Mass Index) 29.67 kg/m2 Joya Elliott RN [facility] Work Phone: 07-19-2019 10:36-0500 Body Temperature 97.9 [degF] Joya Elliott RN [facility] Work Phone: Comment on above: Method: Temporal 07-19-2019 10:36-0500 Body weight 72.39 kg Joya Elliott RN [facility] Work Phone: 07-19-2019 10:36-0500 BP Diastolic 78 mm[Hg] Joya Elliott RN [facility] Work Phone: Comment on above: Patient Position: Si tting; Cuff Location: Left Arm; Cuff Size: Standard 07-19-2019 10:36-0500 BP Systolic 142 mm[Hg] Joya Elliott RN [facility] Work Phone: Comment on above: Patient Position: Si tting; Cuff Location: Left Arm; Cuff Size: Standard 07-19-2019 10:36-0500 BSA (Body Surface Area) 1.73 m2 Joya Elliott RN [facility] Work Phone: 07-19-2019 10:36-0500 Height 156.21 cm Joya Elliott RN [facility] Work Phone: 07-19-2019 10:36-0500 Pulse (Heart Rate) 80 /min Joya Elliott RN [facility] Work Phone: Comment on above: Pattern: Regular 07-19-2019 10:36-0500 Pulse Oximetry 95 % Emily Jenkins [facility] Work Phone: Comment on above: Room air 07-19-2019 10:36-0500 Respiratory Rate 16 /min Joya Elliott RN [facility] Work Phone: Comment on above: Pattern: Unlabored 07-19-2019 10:36-0500 SaO2% (BldA) [Mass fraction] 95 % Joya Elliott RN [facility]; [facility] Work Phone: 06-09-2019 11:20-0500 BMI (Body Mass Index) 29.37 kg/m2 Carole Villanueva [employer] [facility] Work Phone: 06-09-2019 11:20-0500 Body Temperature 97.2 [degF] Carole Gravius [employer] [facility] Work Phone: Comment on above: Method: Temporal 06-09-2019 11:20-0500 Body weight 71.67 kg Carole Villanueva [facility] Internal Medicine Work Phone: 06-09-2019 11:20-0500 BP Diastolic 80 mm[Hg] Carole Villanueva [facility] Internal Medicine Work Phone: Comment on above: Patient Position: Si tting; Cuff Location: Left Arm; Cuff Size: Standard 06-09-2019 11:20-0500 BP Systolic 132 mm[Hg] Carole Villanueva [facility] Internal Medicine Work Phone: Comment on above: Patient Position: Si tting; Cuff Location: Left Arm; Cuff Size: Standard 06-09-2019 11:20-0500 BSA (Body Surface Area) 1.72 m2 Carole Villanueva [facility] Medicine Work Phone: 06-09-2019 11:20-0500 Height 156.21 cm Carole Villanueva [facility] Medicine Work Phone: 06-09-2019 11:20-0500 Pulse (Heart Rate) 75 /min Carole Villanueva [facility] Internal Medicine Work Phone: Comment on above: Pattern: Regular 06-09-2019 11:20-0500 Pulse Oximetry 96 % Emily Jenkins [facility] Work Phone: Comment on above: Room air 06-09-2019 11:20-0500 Respiratory Rate 18 /min Carole Villanueva [facility] Medicine Work Phone: Comment on above: Pattern: Unlabored 06-09-2019 11:20-0500 SaO2% (BldA) [Mass fraction] 96 % Carole Villanueva [facility]; [facility] Work Phone: 03-22-2019 09:40-0400 BMI (Body Mass Index) 28.81 kg/m2 Joya Elliott RN [facility] Work Phone: 03-22-2019 09:40-0400 Body Temperature 96.5 [degF] Joya Elliott RN [facility] Work Phone: Comment on above: Method: Temporal 03-22-2019 09:40-0400 Body weight 70.31 kg Joya Elliott RN [facility] Work Phone: 03-22-2019 09:40-0400 BP Diastolic 78 mm[Hg] Joya Elliott RN [facility] Work Phone: Comment on above: Patient Position: Si tting; Cuff Location: Left Arm; Cuff Size: Standard 03-22-2019 09:40-0400 BP Systolic 134 mm[Hg] Joya Elliott RN [facility] Work Phone: Comment on above: Patient Position: Si tting; Cuff Location: Left Arm; Cuff Size: Standard 03-22-2019 09:40-0400 BSA (Body Surface Area) 1.71 m2 Joya Elliott RN [facility] Work Phone: 03-22-2019 09:40-0400 Height 156.21 cm Joya Elliott RN [facility] Work Phone: 03-22-2019 09:40-0400 Pulse (Heart Rate) 71 /min Joya Elliott RN [facility] Work Phone: Comment on above: Pattern: Regular 03-22-2019 09:40-0400 Pulse Oximetry 98 % Emily Jenkins [facility] Work Phone: Comment on above: Room air 03-22-2019 09:40-0400 Respiratory Rate 16 /min Joya Elliott RN [facility] Work Phone: Comment on above: Pattern: Unlabored 03-22-2019 09:40-0400 SaO2% (BldA) [Mass fraction] 98 % Joya Elliott RN [facility]; [facility] Work Phone: 11-20-2018 09:43-0400 BMI (Body Mass Index) 29.65 kg/m2 Carole Villanueva [employer] [facility] Work Phone: 11-20-2018 09:43-0400 Body Temperature 97.2 [degF] Carole Villanueva [employer] [facility] Work Phone: Comment on above: Method: Temporal 11-20-2018 09:43-0400 Body weight 72.35 kg Carole Villanueva [facility] Medicine Work Phone: 11-20-2018 09:43-0400 BP Diastolic 79 mm[Hg] Carole Villanueva [facility] Medicine Work Phone: Comment on above: Patient Position: Si tting; Cuff Location: Left Arm; Cuff Size: Standard 11-20-2018 09:43-0400 BP Systolic 141 mm[Hg] Carole Villanueva [facility] Medicine Work Phone: Comment on above: Patient Position: Si tting; Cuff Location: Left Arm; Cuff Size: Standard 11-20-2018 09:43-0400 BSA (Body Surface Area) 1.73 m2 Carole Villanueva [facility] Medicine Work Phone: 11-20-2018 09:43-0400 Height 156.21 cm Carole Villanueva [facility] Medicine Work Phone: 11-20-2018 09:43-0400 Pulse (Heart Rate) 68 /min Carole Villanueva [facility] Medicine Work Phone: Comment on above: Pattern: Regular 11-20-2018 09:43-0400 Pulse Oximetry 96 % Emily Jenkins [facility] Internal Medicine Work Phone: Comment on above: Room air 11-20-2018 09:43-0400 Respiratory Rate 18 /min Carole Villanueva [facility] Medicine Work Phone: Comment on above: Pattern: Unlabored 11-20-2018 09:43-0400 SaO2% (BldA) [Mass fraction] 96 % Carole Villanueva [facility] Internal Medicine; [facility] Work Phone: 11-20-2018 09:43-0400 Weight 72.35 kg Emily Jenkins [facility] Internal Medicine Work Phone: 06-29-2018 13:47-0500 BMI (Body Mass Index) 29.28 kg/m2 Santos Child RN [facility] Work Phone: 06-29-2018 13:47-0500 Body weight 71.44 kg Santos Child RN [facility] Work Phone: 06-29-2018 13:47-0500 BP Diastolic 76 mm[Hg] Santos Child RN [facility] Work Phone: Comment on above: Patient Position: Si tting; Cuff Location: Left Arm; Cuff Size: Large 06-29-2018 13:47-0500 BP Systolic 138 mm[Hg] Santos Child RN [facility] Work Phone: Comment on above: Patient Position: Si tting; Cuff Location: Left Arm; Cuff Size: Large 06-29-2018 13:47-0500 BSA (Body Surface Area) 1.72 m2 Santos Child RN [facility] Work Phone: 06-29-2018 13:47-0500 Height 156.21 cm Santos Child RN [facility] Work Phone: 06-29-2018 13:47-0500 Pulse (Heart Rate) 62 /min Santos Child RN [facility] Work Phone: Comment on above: Pattern: Regular 06-29-2018 13:47-0500 Pulse Oximetry 96 % Emily Jenkins [facility] Work Phone: Comment on above: Room air 06-29-2018 13:47-0500 Respiratory Rate 18 /min Santos Child RN [facility] Work Phone: Comment on above: Pattern: Unlabored 06-29-2018 13:47-0500 SaO2% (BldA) [Mass fraction] 96 % Santos Child RN [facility]; [facility] Work Phone: 06-29-2018 13:47-0500 Weight 71.44 kg Emily Jenkins [facility] Work Phone: 06-05-2018 13:07-0500 BMI (Body Mass Index) 29.37 kg/m2 Santos Child RN [facility] Work Phone: Comment on above: hearing wnlDr. Rin and had a glaucoma test done 06-05-2018 13:07-0500 Body weight 71.67 kg Santos Child RN [facility] Work Phone: Comment on above: hearing wnlDr. Mehulig and had a glaucoma test done 06-05-2018 13:07-0500 BP Diastolic 78 mm[Hg] Santos Child RN [facility] Work Phone: Comment on above: Patient Position: Si tting; Cuff Location: Left Arm; Cuff Size: Large hearing isabellDrMechelle Gar and had a glaucoma test done 06-05-2018 13:07-0500 BP Systolic 138 mm[Hg] Santos Child RN [facility] Work Phone: Comment on above: Patient Position: Si tting; Cuff Location: Left Arm; Cuff Size: Large hearing isabellDrMechelle Gar and had a glaucoma test done 06-05-2018 13:07-0500 BSA (Body Surface Area) 1.72 m2 Santos Child RN [facility] Work Phone: Comment on above: hearing isabellDrMechelle Gar and had a glaucoma test done 06-05-2018 13:07-0500 Height 156.21 cm Santos Child RN [facility] Work Phone: Comment on above: hearing isabellDrMechelle Gar and had a glaucoma test done 06-05-2018 13:07-0500 Pulse (Heart Rate) 69 /min Santos Child RN [facility] Work Phone: Comment on above: Pattern: Regular hearing isabellDrMechelle Gar and had a glaucoma test done 06-05-2018 13:07-0500 Pulse Oximetry 97 % Emily Jenkins [facility] Work Phone: Comment on above: Room air hearing isabellDrMechelle Gar and had a glaucoma test done 06-05-2018 13:07-0500 Respiratory Rate 18 /min Santos Child RN [facility] Work Phone: Comment on above: Pattern: Unlabored hearing isabellDrMechelle Gar and had a glaucoma test done 06-05-2018 13:07-0500 SaO2% (BldA) [Mass fraction] 97 % Santos Child RN [facility]; [facility] Work Phone: 06-05-2018 13:07-0500 Weight 71.67 kg Emily Jenkins [facility] Work Phone: Comment on above: hearing wnlDrMechelle Gar and had a glaucoma test done 02-13-2018 08:57-0400 BMI (Body Mass Index) 29.39 kg/m2 Santos Child RN [facility] Work Phone: 02-13-2018 08:57-0400 Body weight 71.73 kg Santos Child RN [facility] Work Phone: 02-13-2018 08:57-0400 BP Diastolic 78 mm[Hg] Santos Child RN [facility] Work Phone: Comment on above: Patient Position: Si tting; Cuff Location: Left Arm; Cuff Size: Large 02-13-2018 08:57-0400 BP Systolic 124 mm[Hg] Santos Child RN [facility] Work Phone: Comment on above: Patient Position: Si tting; Cuff Location: Left Arm; Cuff Size: Large 02-13-2018 08:57-0400 BSA (Body Surface Area) 1.72 m2 Santos Child RN [facility] Work Phone: 02-13-2018 08:57-0400 Height 156.21 cm Santos Child RN [facility] Work Phone: 02-13-2018 08:57-0400 Pulse (Heart Rate) 71 /min Santos Child RN [facility] Work Phone: Comment on above: Pattern: Regular 02-13-2018 08:57-0400 Pulse Oximetry 98 % Emily Jenkins [facility] Work Phone: Comment on above: Room air 02-13-2018 08:57-0400 Respiratory Rate 18 /min Santos Child RN [facility] Work Phone: Comment on above: Pattern: Unlabored 02-13-2018 08:57-0400 SaO2% (BldA) [Mass fraction] 98 % Santos Child RN [facility]; [facility] Work Phone: 02-13-2018 08:57-0400 Weight 71.73 kg Emily Jenkins [facility] Work Phone: 10-13-2017 09:50-0400 BMI (Body Mass Index) 29.56 kg/m2 [facility]: 10-13-2017 09:50-0400 Body weight 72.12 kg [facility] Work [facility]: 10-13-2017 09:50-0400 BP Diastolic 82 mm[Hg] [facility] Internal Medicine Work Phone: Comment on above: Patient Position: Si tting; Cuff Location: Left Arm; Cuff Size: Standard 10-13-2017 09:50-0400 BP Systolic 172 mm[Hg] [facility] Internal Medicine Work Phone: Comment on above: Patient Position: Si tting; Cuff Location: Left Arm; Cuff Size: Standard 10-13-2017 09:50-0400 BSA (Body Surface Area) 1.72 m2 [facility] Work Phone: 10-13-2017 09:50-0400 Height 156.21 cm [facility] Internal Medicine Work Phone: 10-13-2017 09:50-0400 Pulse (Heart Rate) 84 /min [facility] Internal Medicine Work Phone: Comment on above: Pattern: Regular 10-13-2017 09:50-0400 Pulse Oximetry 98 % Emily Alice [facility] Internal Medicine Work Phone: Comment on above: Room air 10-13-2017 09:50-0400 Respiratory Rate 18 /min [facility] Internal Medicine Work Phone: Comment on above: Pattern: Unlabored 10-13-2017 09:50-0400 SaO2% (BldA) [Mass fraction] 98 % [facility] Internal Medicine; [facility] Work Phone: 10-13-2017 09:50-0400 Weight 72.12 kg Emilycarli Mondragonon [facility] Internal Medicine Work Phone: 08-21-2017 08:44-0500 BMI (Body Mass Index) 29.25 kg/m2 Santos Child RN [facility] Work Phone: 08-21-2017 08:44-0500 Body weight 71.39 kg Santos Child RN [facility] Work Phone: 08-21-2017 08:44-0500 BP Diastolic 78 mm[Hg] Santos Child RN [facility] Work Phone: Comment on above: Patient Position: Si tting; Cuff Location: Left Arm; Cuff Size: Standard 08-21-2017 08:44-0500 BP Systolic 142 mm[Hg] Santos Child RN [facility] Work Phone: Comment on above: Patient Position: Si tting; Cuff Location: Left Arm; Cuff Size: Standard 08-21-2017 08:44-0500 BSA (Body Surface Area) 1.72 m2 Santos Child RN [facility] Work Phone: 08-21-2017 08:44-0500 Height 156.21 cm Santos Child RN [facility] Work Phone: 08-21-2017 08:44-0500 Pulse (Heart Rate) 75 /min Santos Child RN [facility] Work Phone: Comment on above: Pattern: Regular 08-21-2017 08:44-0500 Pulse Oximetry 98 % Emily Alice [facility] Work Phone: Comment on above: Room air 08-21-2017 08:44-0500 Respiratory Rate 18 /min Santos Child RN [facility] Work Phone: Comment on above: Pattern: Unlabored 08-21-2017 08:44-0500 SaO2% (BldA) [Mass fraction] 98 % Santos Child RN [facility]; [facility] Work Phone: 08-21-2017 08:44-0500 Weight 71.39 kg Emily Jenkins [facility] Work Phone: 06-11-2017 09:57-0500 BMI (Body Mass Index) 29.09 kg/m2 Santos Child RN [facility] Work Phone: 06-11-2017 09:57-0500 Body weight 70.99 kg Santos Child RN [facility] Work Phone: 06-11-2017 09:57-0500 BP Diastolic 70 mm[Hg] Santos Child RN [facility] Work Phone: Comment on above: Patient Position: Si tting; Cuff Location: Left Arm; Cuff Size: Large 06-11-2017 09:57-0500 BP Systolic 140 mm[Hg] Santos Child RN [facility] Work Phone: Comment on above: Patient Position: Si tting; Cuff Location: Left Arm; Cuff Size: Large 06-11-2017 09:57-0500 BSA (Body Surface Area) 1.71 m2 Santos Child RN [facility] Work Phone: 06-11-2017 09:57-0500 Height 156.21 cm Santos Child RN [facility] Work Phone: 06-11-2017 09:57-0500 Pulse (Heart Rate) 72 /min Santos Child RN [facility] Work Phone: Comment on above: Pattern: Regular 06-11-2017 09:57-0500 Pulse Oximetry 98 % Emily Jenkins [facility] Work Phone: Comment on above: Room air 06-11-2017 09:57-0500 Respiratory Rate 18 /min Santos Child RN [facility] Work Phone: Comment on above: Pattern: Unlabored 06-11-2017 09:57-0500 SaO2% (BldA) [Mass fraction] 98 % Santos Child RN [facility]; [facility] Work Phone: 06-11-2017 09:57-0500 Weight 70.99 kg Emily Jenkins [facility] Work Phone: 05-30-2017 10:08-0500 BMI (Body Mass Index) 29.21 kg/m2 Santos Child RN [facility] Work Phone: Comment on above: hearing wnlDr. Rin and had a glaucoma test done 05-30-2017 10:08-0500 Body weight 71.27 kg Santos Child RN [facility] Work Phone: Comment on above: hearing wnlDr. Rin and had a glaucoma test done 05-30-2017 10:08-0500 BP Diastolic 60 mm[Hg] Santos Child RN [facility] Work Phone: Comment on above: Patient Position: Si tting; Cuff Location: Left Arm; Cuff Size: Standard hearing wnlDr. Rin and had a glaucoma test done 05-30-2017 10:08-0500 BP Systolic 122 mm[Hg] Santos Child RN [facility] Work Phone: Comment on above: Patient Position: Si tting; Cuff Location: Left Arm; Cuff Size: Standard hearing wnlDr. Rin and had a glaucoma test done 05-30-2017 10:08-0500 BSA (Body Surface Area) 1.72 m2 Santso Child RN [facility] Work Phone: Comment on above: hearing wnlDr. Rin and had a glaucoma test done 05-30-2017 10:08-0500 Height 156.21 cm Santos Child RN [facility] Work Phone: Comment on above: hearing wnlDr. Rin and had a glaucoma test done 05-30-2017 10:08-0500 Pulse (Heart Rate) 78 /min Santos Child RN [facility] Work Phone: Comment on above: Pattern: Regular hearing wnlDr. Rin and had a glaucoma test done 05-30-2017 10:08-0500 Pulse Oximetry 97 % Emily Jenkins [facility] Work Phone: Comment on above: Room air hearing wnlDr. Rin and had a glaucoma test done 05-30-2017 10:08-0500 Respiratory Rate 18 /min Santos Child RN Comprehensive Internal Medicine Work Phone: Comment on above: Pattern: Unlabored hearing wnlDr. Rin and had a glaucoma test done 05-30-2017 10:08-0500 SaO2% (BldA) [Mass fraction] 97 % Santos Child [facility]; [facility] Work Phone: 05-30-2017 10:08-0500 Weight 71.27 kg Emily Jenkins [facility] Work Phone: Comment on above: hearing wnlDr. Rin and had a glaucoma test done 02-05-2017 10:08-0400 BMI (Body Mass Index) 29.18 kg/m2 Santos Child RN [facility] Work Phone: 02-05-2017 10:08-0400 Body weight 71.22 kg Santos Child RN [facility] Work Phone: 02-05-2017 10:08-0400 BP Diastolic 82 mm[Hg] Santos Child RN [facility] Work Phone: Comment on above: Patient Position: Si tting; Cuff Location: Left Arm; Cuff Size: Large 02-05-2017 10:08-0400 BP Systolic 138 mm[Hg] Santos Child RN [facility] Work Phone: Comment on above: Patient Position: Si tting; Cuff Location: Left Arm; Cuff Size: Large 02-05-2017 10:08-0400 BSA (Body Surface Area) 1.71 m2 Santos Child RN [facility] Work Phone: 02-05-2017 10:08-0400 Height 156.21 cm Santos Child RN [facility] Work Phone: 02-05-2017 10:08-0400 Pulse (Heart Rate) 76 /min Santos Child RN [facility] Work Phone: Comment on above: Pattern: Regular 02-05-2017 10:08-0400 Pulse Oximetry 97 % Emily Jenkins [facility] Work Phone: Comment on above: Room air 02-05-2017 10:08-0400 Respiratory Rate 18 /min Santos Child RN [facility] Work Phone: Comment on above: Pattern: Unlabored 02-05-2017 10:08-0400 SaO2% (BldA) [Mass fraction] 97 % Santos Child RN [facility]; [facility] Work Phone: 02-05-2017 10:08-0400 Weight 71.22 kg Emily Mondragonon [facility] Work Phone: 10-23-2016 11:22-0400 BMI (Body Mass Index) 29 kg/m2 Santos Child RN [facility] Work Phone: 10-23-2016 11:22-0400 Body weight 70.76 kg Santos Child RN [facility] Work Phone: 10-23-2016 11:22-0400 BP Diastolic 78 mm[Hg] Santos Chidl RN [facility] Work Phone: Comment on above: Patient Position: Si tting; Cuff Location: Left Arm; Cuff Size: Standard 10-23-2016 11:22-0400 BP Systolic 120 mm[Hg] Santos Child RN [facility] Work Phone: Comment on above: Patient Position: Si tting; Cuff Location: Left Arm; Cuff Size: Standard 10-23-2016 11:22-0400 BSA (Body Surface Area) 1.71 m2 Santos Child RN [facility] Work Phone: 10-23-2016 11:22-0400 Height 156.21 cm Santos Child RN [facility] Work Phone: 10-23-2016 11:22-0400 Pulse (Heart Rate) 86 /min Santos Child RN [facility] Work Phone: Comment on above: Pattern: Regular 10-23-2016 11:22-0400 Pulse Oximetry 97 % Emily Alice [facility] Work Phone: Comment on above: Room air 10-23-2016 11:22-0400 Respiratory Rate 18 /min Santos Child RN [facility] Work Phone: Comment on above: Pattern: Unlabored 10-23-2016 11:22-0400 SaO2% (BldA) [Mass fraction] 97 % Santos Child [facility]; [facility] Work Phone: 10-23-2016 11:22-0400 Weight 70.76 kg Emily Jenkins [facility] Work Phone: 10-02-2016 09:17-0400 BMI (Body Mass Index) 29.23 kg/m2 Santos Child RN [facility] Work Phone: 10-02-2016 09:17-0400 Body weight 71.33 kg Santos Child RN [facility] Work Phone: 10-02-2016 09:17-0400 BP Diastolic 80 mm[Hg] Santos Child RN [facility] Work Phone: Comment on above: Patient Position: Si tting; Cuff Location: Left Arm; Cuff Size: Large 10-02-2016 09:17-0400 BP Systolic 138 mm[Hg] Santos Child RN [facility] Work Phone: Comment on above: Patient Position: Si tting; Cuff Location: Left Arm; Cuff Size: Large 10-02-2016 09:17-0400 BSA (Body Surface Area) 1.72 m2 Santos Child RN [facility] Work Phone: 10-02-2016 09:17-0400 Height 156.21 cm Santos Child RN [facility] Work Phone: 10-02-2016 09:17-0400 Pulse (Heart Rate) 81 /min Santos Child RN [facility] Work Phone: Comment on above: Pattern: Regular 10-02-2016 09:17-0400 Pulse Oximetry 98 % Emily Jenkins [facility] Work Phone: Comment on above: Room air 10-02-2016 09:17-0400 Respiratory Rate 18 /min Santos Child RN [facility] Work Phone: Comment on above: Pattern: Unlabored 10-02-2016 09:17-0400 SaO2% (BldA) [Mass fraction] 98 % Santos Child RN [facility]; [facility] Work Phone: 10-02-2016 09:17-0400 Weight 71.33 kg Emily Jenkins [facility] Work Phone: 05-29-2016 09:49-0500 BMI (Body Mass Index) 28.81 kg/m2 Santos Child RN [facility] Work Phone: Comment on above: hearing wnlDr. Karg and had a glaucoma test done 05-29-2016 09:49-0500 Body weight 70.31 kg Santos Child RN [facility] Work Phone: Comment on above: hearing wnlDr. Karg and had a glaucoma test done 05-29-2016 09:49-0500 BP Diastolic 70 mm[Hg] Santos Child RN [facility] Work Phone: Comment on above: Patient Position: Si tting; Cuff Location: Left Arm; Cuff Size: Standard hearing wnlDr. Karg and had a glaucoma test done 05-29-2016 09:49-0500 BP Systolic 128 mm[Hg] Santos Child RN [facility] Work Phone: Comment on above: Patient Position: Si tting; Cuff Location: Left Arm; Cuff Size: Standard hearing wnlDr. Karg and had a glaucoma test done 05-29-2016 09:49-0500 BSA (Body Surface Area) 1.71 m2 Santos Child RN [facility] Work Phone: Comment on above: hearing wnlDr. Karg and had a glaucoma test done 05-29-2016 09:49-0500 Height 156.21 cm Santos Child RN [facility] Work Phone: Comment on above: hearing wnlDr. Karg and had a glaucoma test done 05-29-2016 09:49-0500 Pulse (Heart Rate) 77 /min Santos Child RN [facility] Work Phone: Comment on above: Pattern: Regular hearing wnlDr. Karg and had a glaucoma test done 05-29-2016 09:49-0500 Pulse Oximetry 98 % Emily Jenkins [facility] Work Phone: Comment on above: Room air hearing wnlDr. Karg and had a glaucoma test done 05-29-2016 09:49-0500 Respiratory Rate 18 /min Santos Child RN [facility] Work Phone: Comment on above: Pattern: Unlabored hearing wnlDr. Karg and had a glaucoma test done 05-29-2016 09:49-0500 SaO2% (BldA) [Mass fraction] 98 % Santos Child RN [facility]; [facility] Work Phone: 05-29-2016 09:49-0500 Weight 70.31 kg Emily Jenkins [facility] Work Phone: Comment on above: hearing wnlDr. Karg and had a glaucoma test done 02-21-2016 09:51-0400 BMI (Body Mass Index) 28.81 kg/m2 Santos Child RN [facility] Work Phone: 02-21-2016 09:51-0400 Body Temperature 97.3 [degF] Santos Child RN [facility] Work Phone: Comment on above: Method: Temporal 02-21-2016 09:51-0400 Body weight 70.31 kg Santos Child RN [facility] Work Phone: 02-21-2016 09:51-0400 BP Diastolic 72 mm[Hg] Santos Child RN [facility] Work Phone: Comment on above: Patient Position: Si tting; Cuff Location: Left Arm; Cuff Size: Large 02-21-2016 09:51-0400 BP Systolic 116 mm[Hg] Santos Child RN [facility] Work Phone: Comment on above: Patient Position: Si tting; Cuff Location: Left Arm; Cuff Size: Large 02-21-2016 09:51-0400 BSA (Body Surface Area) 1.71 m2 Santos Child RN [facility] Work Phone: 02-21-2016 09:51-0400 Height 156.21 cm Santos Child RN [facility] Work Phone: 02-21-2016 09:51-0400 Pulse (Heart Rate) 81 /min Santos Child RN [facility] Work Phone: Comment on above: Pattern: Regular 02-21-2016 09:51-0400 Pulse Oximetry 98 % Emily Jenkins [facility] Work Phone: Comment on above: Room air 02-21-2016 09:51-0400 Respiratory Rate 18 /min Santos Child RN [facility] Work Phone: Comment on above: Pattern: Unlabored 02-21-2016 09:51-0400 SaO2% (BldA) [Mass fraction] 98 % Santso Child RN [facility]; [facility] Work Phone: 02-21-2016 09:51-0400 Weight 70.31 kg Emilycarli Mondragonon [facility] Work Phone: 09-18-2015 10:31-0400 BMI (Body Mass Index) 28.81 kg/m2 Santos Child RN [facility] Work Phone: 09-18-2015 10:31-0400 Body weight 70.31 kg Santos Child RN [facility] Work Phone: 09-18-2015 10:31-0400 BP Diastolic 82 mm[Hg] Santos Child RN [facility] Work Phone: Comment on above: Patient Position: Si tting; Cuff Location: Left Arm; Cuff Size: Large 09-18-2015 10:31-0400 BP Systolic 142 mm[Hg] Santos Child RN [facility] Work Phone: Comment on above: Patient Position: Si tting; Cuff Location: Left Arm; Cuff Size: Large 09-18-2015 10:31-0400 BSA (Body Surface Area) 1.71 m2 Santos Chidl RN [facility] Work Phone: 09-18-2015 10:31-0400 Height 156.21 cm Santos Child RN [facility] Work Phone: 09-18-2015 10:31-0400 Pulse (Heart Rate) 83 /min Santos Child RN [facility] Work Phone: Comment on above: Pattern: Regular 09-18-2015 10:31-0400 Pulse Oximetry 98 % Emily Alice [facility] Work Phone: Comment on above: Room air 09-18-2015 10:31-0400 Respiratory Rate 20 /min Santos Child RN [facility] Work Phone: Comment on above: Pattern: Unlabored 09-18-2015 10:31-0400 SaO2% (BldA) [Mass fraction] 98 % Santos Child RN [facility]; [facility] Work Phone: 09-18-2015 10:31-0400 Weight 70.31 kg Emily Alice [facility] Work Phone: 05-24-2015 09:17-0500 BMI (Body Mass Index) 28.49 kg/m2 Santos Child RN [facility] Work Phone: Comment on above: Dr. Carrion and had a glaucoma test done hearing [facility] 05-24-2015 09:17-0500 Body Temperature 97.5 [degF] Santos Child RN [facility] Work Phone: Comment on above: Method: Temporal Dr. Carrion and had a glaucoma test done hearing [facility] 05-24-2015 09:17-0500 Body weight 69.51 kg Santos Child RN [facility] Work Phone: Comment on above: Dr. Carrion and had a glaucoma test done hearing [facility] 05-24-2015 09:17-0500 BP Diastolic 76 mm[Hg] Santos Child RN [facility] Work Phone: Comment on above: Patient Position: Si tting; Cuff Location: Left Arm; Cuff Size: Large Dr. Carrion and had a glaucoma test done hearing [facility] 05-24-2015 09:17-0500 BP Systolic 122 mm[Hg] Santos Child RN [facility] Work Phone: Comment on above: Patient Position: Si tting; Cuff Location: Left Arm; Cuff Size: Large Dr. Carrion and had a glaucoma test done hearing [facility] 05-24-2015 09:17-0500 BSA (Body Surface Area) 1.7 m2 Santos Child RN [facility] Work Phone: Comment on above: Dr. Carrion and had a glaucoma test done hearing [facility] 05-24-2015 09:17-0500 Height 156.21 cm Santos Child RN [facility] Work Phone: Comment on above: Dr. Carrion and had a glaucoma test done hearing [facility] 05-24-2015 09:17-0500 Pulse (Heart Rate) 92 /min Santos Child RN [facility] Work Phone: Comment on above: Pattern: Regular Dr. Carrion and had a glaucoma test done hearing [facility] 05-24-2015 09:17-0500 Pulse Oximetry 98 % Emily Jenkins [facility] Work Phone: Comment on above: Room air Dr. Carrion and had a glaucoma test done hearing [facility] 05-24-2015 09:17-0500 Respiratory Rate 16 /min Santos Child RN [facility] Work Phone: Comment on above: Pattern: Unlabored Dr. Carrion and had a glaucoma test done hearing [facility] 05-24-2015 09:17-0500 SaO2% (BldA) [Mass fraction] 98 % Santos Child RN [facility]; [facility] Work Phone: 05-24-2015 09:17-0500 Weight 69.51 kg Emily Jenkins [facility] Work Phone: Comment on above: Dr. Carrion and had a glaucoma test done hearing [facility] 04-20-2015 09:07-0400 BMI (Body Mass Index) 28.28 kg/m2 Santos Child RN [facility] Work Phone: 04-20-2015 09:07-0400 Body Temperature 97.3 [degF] Santos Child RN [facility] Work Phone: Comment on above: Method: Temporal 04-20-2015 09:07-0400 Body weight 69 kg Santos Child RN [facility] Work Phone: 04-20-2015 09:07-0400 BP Diastolic 60 mm[Hg] Santos Child RN [facility] Work Phone: Comment on above: Patient Position: Si tting; Cuff Location: Right Arm; Cuff Size: Large 04-20-2015 09:07-0400 BP Systolic 120 mm[Hg] Santos Child RN [facility] Work Phone: Comment on above: Patient Position: Si tting; Cuff Location: Right Arm; Cuff Size: Large 04-20-2015 09:07-0400 BSA (Body Surface Area) 1.69 m2 Santos Child RN [facility] Work Phone: 04-20-2015 09:07-0400 Height 156.21 cm Santos Child RN [facility] Work Phone: 04-20-2015 09:07-0400 Pulse (Heart Rate) 82 /min Santos Child RN [facility] Work Phone: Comment on above: Pattern: Regular 04-20-2015 09:07-0400 Pulse Oximetry 97 % Emily Jenkins [facility] Work Phone: Comment on above: Room air 04-20-2015 09:07-0400 Respiratory Rate 18 /min Santos Child RN [facility] Work Phone: Comment on above: Pattern: Unlabored 04-20-2015 09:07-0400 SaO2% (BldA) [Mass fraction] 97 % Santos Child RN [facility]; [facility] Work Phone: 04-20-2015 09:07-0400 Weight 69 kg Emily Jenkins [facility] Work Phone: 12-19-2014 09:42-0400 BMI (Body Mass Index) 29.97 kg/m2 Santos Child RN [facility] Work Phone: 12-19-2014 09:42-0400 Body weight 73.14 kg Santos Child RN [facility] Work Phone: 12-19-2014 09:42-0400 BP Diastolic 80 mm[Hg] Santos Child RN [facility] Work Phone: Comment on above: Patient Position: Si tting; Cuff Location: Left Arm; Cuff Size: Large 12-19-2014 09:42-0400 BP Systolic 142 mm[Hg] Santos Child RN [facility] Work Phone: Comment on above: Patient Position: Si tting; Cuff Location: Left Arm; Cuff Size: Large 12-19-2014 09:42-0400 BSA (Body Surface Area) 1.73 m2 Santos Child RN [facility] Work Phone: 12-19-2014 09:42-0400 Height 156.21 cm Santos Child RN [facility] Work Phone: 12-19-2014 09:42-0400 Pulse (Heart Rate) 82 /min Santos Child RN [facility] Work Phone: Comment on above: Pattern: Regular 12-19-2014 09:42-0400 Pulse Oximetry 98 % Emily Jenkins [facility] Work Phone: Comment on above: Room air 12-19-2014 09:42-0400 Respiratory Rate 18 /min Santos Child RN [facility] Work Phone: Comment on above: Pattern: Unlabored 12-19-2014 09:42-0400 SaO2% (BldA) [Mass fraction] 98 % Satnos Child RN [facility]; [facility] Work Phone: 12-19-2014 09:42-0400 Weight 73.14 kg Emily Jenkins [facility] Internal [facility] Work Phone: 05-18-2014 09:35-0500 BMI (Body Mass Index) 30.3 kg/m2 Emily Jenkins [facility] Internal Medicine Work Phone: Comment on above: eye --DR. Sifuentes 4hearing [facility] 05-18-2014 09:35-0500 Body Temperature 98.1 [degF] Emily Jenkins [facility] Internal [facility] Work Phone: Comment on above: Method: Oral eye --DR. Sifuentes 4hearing [facility] 05-18-2014 09:35-0500 Body weight 73.94 kg Emily Jenkins [facility] Internal Medicine Work Phone: Comment on above: eye --DR. Sifuentes 4hearing [facility] 05-18-2014 09:35-0500 BP Diastolic 82 mm[Hg] Emily Jenkins [facility] Internal Medicine Work Phone: Comment on above: Patient Position: Si tting; Cuff Location: Left Arm; Cuff Size: Standard eye --DR. Sifuentes 4hearing [facility] 05-18-2014 09:35-0500 BP Systolic 134 mm[Hg] Emily Jenkins [facility] Internal [facility] Work Phone: Comment on above: Patient Position: Si tting; Cuff Location: Left Arm; Cuff Size: Standard [facility] 05-18-2014 09:35-0500 BSA (Body Surface Area) 1.74 m2 Emily Jenkins [facility] Internal [facility] Work Phone: Comment on above: eye --DR. Sifuentes 4hearing [facility] 05-18-2014 09:35-0500 Height 156.21 cm Emily Jenkins [facility] Internal [facility] Work Phone: Comment on above: eye --DR. Sifuentes [address] [place] [address] 05-18-2014 09:35-0500 Pulse (Heart Rate) 80 /min Emily Jenkins [facility] Work Phone: Comment on above: Pattern: Regular eye --DR. Sifuentes [address] [place] [address] 05-18-2014 09:35-0500 Pulse Oximetry 98 % Emily Jenkins [facility] Work Phone: Comment on above: Room air eye --DR. Sifuentes [address] [place] [address] 05-18-2014 09:35-0500 Respiratory Rate 16 /min Emily Jenkins [facility] Work Phone: Comment on above: Pattern: Unlabored eye --DR. Sifuentes [address] [place] [address] 05-18-2014 09:35-0500 SaO2% (BldA) [Mass fraction] 98 % Emily Jenkins DO Work Phone: [facility]; [facility] Work Phone: 05-18-2014 09:35-0500 Weight 73.94 kg Emily Jenkins [facility] Work Phone: Comment on above: eye --DR. Sifuentes [address] [place] [address] 11-01-2013 10:32-0400 BMI (Body Mass Index) 29.66 kg/m2 Santos Child RN [facility] Work Phone: 11-01-2013 10:32-0400 Body weight 72.38 kg Santos Child RN [facility] Work Phone: 11-01-2013 10:32-0400 BP Diastolic 82 mm[Hg] Santos Child RN [facility] Work Phone: Comment on above: Patient Position: Si tting; Cuff Location: Left Arm; Cuff Size: Large 11-01-2013 10:32-0400 BP Systolic 158 mm[Hg] Santos Child RN [facility] Work Phone: Comment on above: Patient Position: Si tting; Cuff Location: Left Arm; Cuff Size: Large 11-01-2013 10:32-0400 BSA (Body Surface Area) 1.73 m2 Santos Child RN [facility] Work Phone: 11-01-2013 10:32-0400 Height 156.21 cm Santos Child RN [facility] Work Phone: 11-01-2013 10:32-0400 Pulse (Heart Rate) 72 /min Santos Child RN [facility] Work Phone: Comment on above: Pattern: Regular 11-01-2013 10:32-0400 Pulse Oximetry 98 % Emily Jenkins [facility] Work Phone: Comment on above: Room air 11-01-2013 10:32-0400 Respiratory Rate 20 /min Santos Child RN [facility] Work Phone: Comment on above: Pattern: Unlabored 11-01-2013 10:32-0400 SaO2% (BldA) [Mass fraction] 98 % Santos Child RN [facility]; [facility] Work Phone: 11-01-2013 10:32-0400 Weight 72.38 kg Emily Jenkins [facility] Work Phone: 05-17-2013 08:55-0500 BMI (Body Mass Index) 29.66 kg/m2 Santos Child RN [facility] Work Phone: Comment on above: hearing wnlDr. Mehulg 05-17-2013 08:55-0500 Body weight 72.38 kg Santos Child RN [facility] Work Phone: Comment on above: hearing wnlDr. Mehulg 05-17-2013 08:55-0500 BP Diastolic 80 mm[Hg] Santos Child RN [facility] Work Phone: Comment on above: Patient Position: Si tting; Cuff Location: Left Arm; Cuff Size: Large hearing wnlDr. Mehulg 05-17-2013 08:55-0500 BP Systolic 138 mm[Hg] Santos Child RN [facility] Work Phone: Comment on above: Patient Position: Si tting; Cuff Location: Left Arm; Cuff Size: Large hearing wnlDr. Mehulg 05-17-2013 08:55-0500 BSA (Body Surface Area) 1.73 m2 Santos Child RN [facility] Work Phone: Comment on above: hearing wnlDr. Mehul 05-17-2013 08:55-0500 Height 156.21 cm Santos Child RN [facility] Work Phone: Comment on above: hearing wnlDr. Mehul 05-17-2013 08:55-0500 Pulse (Heart Rate) 88 /min Santos Child RN [facility] Work Phone: Comment on above: Pattern: Regular hearing wnlDr. Mehul 05-17-2013 08:55-0500 Pulse Oximetry 98 % Emily Alice [facility] Work Phone: Comment on above: Room air hearing wnlDr. Mehul 05-17-2013 08:55-0500 Respiratory Rate 20 /min Santos Child RN [facility] Work Phone: Comment on above: Pattern: Unlabored hearing [facility]. [facility] 05-17-2013 08:55-0500 SaO2% (BldA) [Mass fraction] 98 % Santos Child RN [facility]; [facility] Work Phone: 05-17-2013 08:55-0500 Weight 72.38 kg Emily Jenkins [facility] Work Phone: Comment on above: hearing wnlDr. Mehul 05-03-2013 11:29-0500 BMI (Body Mass Index) 29.78 kg/m2 Santos Child RN [facility] Work Phone: 05-03-2013 11:29-0500 Body Temperature 98.1 [degF] Santos Child RN [facility] Work Phone: Comment on above: Method: Oral 05-03-2013 11:29-0500 Body weight 72.66 kg Santos Child RN [facility] Work Phone: 05-03-2013 11:29-0500 BP Diastolic 78 mm[Hg] Santos Child RN [facility] Work Phone: Comment on above: Patient Position: Si tting; Cuff Location: Left Arm; Cuff Size: Large 05-03-2013 11:29-0500 BP Systolic 128 mm[Hg] Santos Child RN [facility] Work Phone: Comment on above: Patient Position: Si tting; Cuff Location: Left Arm; Cuff Size: Large 05-03-2013 11:29-0500 BSA (Body Surface Area) 1.73 m2 Santos Child RN [facility] Work Phone: 05-03-2013 11:29-0500 Height 156.21 cm Santos Child RN [facility] Work Phone: 05-03-2013 11:29-0500 Pulse (Heart Rate) 64 /min Santos Child RN [facility] Work Phone: Comment on above: Pattern: Regular 05-03-2013 11:29-0500 Respiratory Rate 18 /min Santos Child RN [facility] Work Phone: Comment on above: Pattern: Unlabored 05-03-2013 11:29-0500 Weight 72.66 kg Emily Jenkins [facility] Work Phone: 04-19-2013 11:22-0400 BMI (Body Mass Index) 29.56 kg/m2 Santos Child RN [facility] Work Phone: 04-19-2013 11:22-0400 Body Temperature 97.9 [degF] Santos Child RN [facility] Work Phone: Comment on above: Method: Oral 04-19-2013 11:22-0400 Body weight 72.12 kg Santos Child RN [facility] Work Phone: 04-19-2013 11:22-0400 BP Diastolic 74 mm[Hg] Santos Child RN [facility] Work Phone: Comment on above: Patient Position: Si tting; Cuff Location: Left Arm; Cuff Size: Large 04-19-2013 11:22-0400 BP Systolic 120 mm[Hg] Santos Child RN [facility] Work Phone: Comment on above: Patient Position: Si tting; Cuff Location: Left Arm; Cuff Size: Large 04-19-2013 11:22-0400 BSA (Body Surface Area) 1.72 m2 Santos Child RN [facility] Work Phone: 04-19-2013 11:22-0400 Height 156.21 cm Santos Child [facility] Work Phone: 04-19-2013 11:22-0400 Pulse (Heart Rate) 84 /min Santos Child [facility] Work Phone: Comment on above: Pattern: Regular 04-19-2013 11:22-0400 Pulse Oximetry 98 % Emily Jenkins [facility] Work Phone: Comment on above: Room air 04-19-2013 11:22-0400 Respiratory Rate 18 /min Santos Child [facility] Work Phone: Comment on above: Pattern: Unlabored 04-19-2013 11:22-0400 SaO2% (BldA) [Mass fraction] 98 % Santos Child [facility]; [facility] Work Phone: 04-19-2013 11:22-0400 Weight 72.12 kg Emily Mondragonon [facility] Work Phone: 12-07-2012 13:14-0400 BMI (Body Mass Index) 29.59 kg/m2 Santos Child [facility] Work Phone: 12-07-2012 13:14-0400 Body Temperature 97 [degF] Santos Child [facility] Work Phone: Comment on above: Method: Oral 12-07-2012 13:14-0400 Body weight 72.21 kg Santos Child [facility] Work Phone: 12-07-2012 13:14-0400 BP Diastolic 82 mm[Hg] Santos Child [facility] Work Phone: Comment on above: Patient Position: Si tting; Cuff Location: Left Arm; Cuff Size: Large 12-07-2012 13:14-0400 BP Systolic 160 mm[Hg] Santos Child [facility] Work Phone: Comment on above: Patient Position: Si tting; Cuff Location: Left Arm; Cuff Size: Large 12-07-2012 13:14-0400 BSA (Body Surface Area) 1.72 m2 Santos Child [facility] Work Phone: 12-07-2012 13:14-0400 Height 156.21 cm Santos Child [facility] Work Phone: 12-07-2012 13:14-0400 Pulse (Heart Rate) 72 /min Santos Child [facility] Work Phone: Comment on above: Pattern: Regular 12-07-2012 13:14-0400 Respiratory Rate 20 /min Santos Child RN [facility] Work Phone: Comment on above: Pattern: Unlabored 12-07-2012 13:14-0400 Weight 72.21 kg Emily Jenkins [facility] Work Phone: 08-24-2012 09:52-0500 BMI (Body Mass Index) 29 kg/m2 Santos Child [facility] Work Phone: 08-24-2012 09:52-0500 Body Temperature 97.6 [degF] Santos Child [facility] Work Phone: Comment on above: Method: Oral 08-24-2012 09:52-0500 Body weight 70.76 kg Santos Child RN [facility] Work Phone: 08-24-2012 09:52-0500 BP Diastolic 78 mm[Hg] Santos Child [facility] Work Phone: Comment on above: Patient Position: Si tting; Cuff Location: Left Arm; Cuff Size: Large 08-24-2012 09:52-0500 BP Systolic 122 mm[Hg] Santos Child [facility] Work Phone: Comment on above: Patient Position: Si tting; Cuff Location: Left Arm; Cuff Size: Large 08-24-2012 09:52-0500 BSA (Body Surface Area) 1.71 m2 Santos Child [facility] Work Phone: 08-24-2012 09:52-0500 Height 156.21 cm Santos Child [facility] Work Phone: 08-24-2012 09:52-0500 Pulse (Heart Rate) 60 /min Santos Child [facility] Work Phone: Comment on above: Pattern: Regular 08-24-2012 09:52-0500 Respiratory Rate 18 /min Santos Child [facility] Work Phone: Comment on above: Pattern: Unlabored 08-24-2012 09:52-0500 Weight 70.76 kg Emily Jenkins [facility] Work Phone: 04-29-2012 09:45-0500 BMI (Body Mass Index) 29.09 kg/m2 Santos Child [facility] Work Phone: Comment on above: hearing wnlvision wi th correction od and os=20/30 ou=2004-29-2012 09:45-0500 Body Temperature 98 [degF] Santos Child [facility] Work Phone: Comment on above: Method: Oral hearing wnlvision wi th correction od and os=20/30 ou=2004-29-2012 09:45-0500 Body weight 70.99 kg Santos Child RN [facility] Work Phone: Comment on above: hearing wnlvision wi th correction od and os=20/30 ou=2004-29-2012 09:45-0500 BP Diastolic 68 mm[Hg] Santos Child [facility] Work Phone: Comment on above: Patient Position: Si tting; Cuff Location: Left Arm; Cuff Size: Large hearing wnlvision wi th correction od and os=20/30 ou=20/25 04-29-2012 09:45-0500 BP Systolic 116 mm[Hg] Santos Child [facility] Work Phone: Comment on above: Patient Position: Si tting; Cuff Location: Left Arm; Cuff Size: Large hearing wnlvision wi th correction od and os=20/30 ou=20/25 04-29-2012 09:45-0500 BSA (Body Surface Area) 1.71 m2 Santos Child [facility] Work Phone: Comment on above: hearing wnlvision wi th correction od and os=20/30 ou=20/25 04-29-2012 09:45-0500 Height 156.21 cm Santos Child [facility] Work Phone: Comment on above: hearing wnlvision wi th correction od and os=20/30 ou=20/25 04-29-2012 09:45-0500 Pulse (Heart Rate) 78 /min Santos Child RN [facility] Work Phone: Comment on above: Pattern: Regular hearing wnlvision wi th correction od and os=20/30 ou=20/25 04-29-2012 09:45-0500 Respiratory Rate 16 /min Santos Child RN [facility] Work Phone: Comment on above: Pattern: Unlabored hearing wnlvision wi th correction od and os=20/30 ou=20/25 04-29-2012 09:45-0500 Weight 70.99 kg Emily Jenkins [facility] Work Phone: Comment on above: hearing wnlvision wi th correction od and os=20/30 ou=20/25 04-16-2012 09:11-0400 BMI (Body Mass Index) 29.06 kg/m2 Santos Child [facility] Work Phone: 04-16-2012 09:11-0400 Body Temperature 96.9 [degF] Santos Child [facility] Work Phone: Comment on above: Method: Oral 04-16-2012 09:11-0400 Body weight 70.9 kg Santos Child RN [facility] Work Phone: 04-16-2012 09:11-0400 BP Diastolic 82 mm[Hg] Santos Child RN [facility] Work Phone: Comment on above: Patient Position: Si tting; Cuff Location: Left Arm; Cuff Size: Large 04-16-2012 09:11-0400 BP Systolic 162 mm[Hg] Santos Child RN [facility] Work Phone: Comment on above: Patient Position: Si tting; Cuff Location: Left Arm; Cuff Size: Large 04-16-2012 09:11-0400 BSA (Body Surface Area) 1.71 m2 Santos Child RN [facility] Work Phone: 04-16-2012 09:11-0400 Height 156.21 cm Santos Child [facility] Work Phone: 04-16-2012 09:110400 Pulse (Heart Rate) 80 /min Santos Child RN [facility] Work Phone: Comment on above: Pattern: Regular 04-16-2012 09:11-0400 Respiratory Rate 20 /min Santos Child RN [facility] Work Phone: Comment on above: Pattern: Unlabored 04-16-2012 09:110400 Weight 70.9 kg Emily Jenkins [facility] Work Phone: 10-02-2011 10:22-0400 BMI (Body Mass Index) 29.82 kg/m2 Santos Child RN [facility] Work Phone: 10-02-2011 10:22-0400 Body Temperature 97.8 [degF] Santos Child RN [facility] Work Phone: Comment on above: Method: Oral 10-02-2011 10:220400 Body weight 72.77 kg Santos Child RN [facility] Work Phone: 10-02-2011 10:22-0400 BP Diastolic 78 mm[Hg] Santos Child RN [facility] Work Phone: Comment on above: Patient Position: Si tting; Cuff Location: Left Arm; Cuff Size: Large 10-02-2011 10:22-0400 BP Systolic 140 mm[Hg] Santos Child [facility] Work Phone: Comment on above: Patient Position: Si tting; Cuff Location: Left Arm; Cuff Size: Large 10-02-2011 10:22-0400 BSA (Body Surface Area) 1.73 m2 Santos Child RN [facility] Work Phone: 10-02-2011 10:22-0400 Height 156.21 cm Santos Child RN [facility] Work Phone: 10-02-2011 10:22-0400 Pulse (Heart Rate) 80 /min Santos Child RN [facility] Work Phone: Comment on above: Pattern: Regular 10-02-2011 10:22-0400 Respiratory Rate 20 /min Santos Child RN [facility] Work Phone: Comment on above: Pattern: Unlabored 10-02-2011 10:22-0400 Weight 72.77 kg Emily Jenkins [facility] Work Phone: 10-05-2008 11:50-0400 Body weight 65.52 kg Santos Child RN [facility] Work Phone: 10-05-2008 11:50-0400 BP Diastolic 78 mm[Hg] Santos Child RN [facility] Work Phone: Comment on above: Patient Position: Si tting; Cuff Location: Left Arm; Cuff Size: Large 10-05-2008 11:50-0400 BP Systolic 128 mm[Hg] Santos Child RN [facility] Work Phone: Comment on above: Patient Position: Si tting; Cuff Location: Left Arm; Cuff Size: Large 10-05-2008 11:50-0400 Head Circumference 0 cm Emily Mondragonon [facility] Work Phone: 10-05-2008 11:50-0400 Head Occipital-frontal circumference 0 cm Santos Child [facility]; [facility] Work Phone: 10-05-2008 11:50-0400 Height 0 cm Santos Child RN [facility] Work Phone: 10-05-2008 11:50-0400 Pulse (Heart Rate) 76 /min Santos Child RN [facility] Work Phone: Comment on above: Pattern: Regular 10-05-2008 11:50-0400 Respiratory Rate 20 /min Santos Child RN [facility] Work Phone: Comment on above: Pattern: Unlabored 10-05-2008 11:50-0400 Weight 65.52 kg Emily Jenkins [facility] Work Phone: 09-01-2008 10:46-0400 Body Temperature 98 [degF] Lauren Cormier [facility] Work Phone: Comment on above: Method: Oral 09-01-2008 10:46-0400 Body weight 65.52 kg Lauren Genia [facility] Work Phone: 09-01-2008 10:46-0400 BP Diastolic 82 mm[Hg] Lauren [facility] Work Phone: Comment on above: Patient Position: Si tting; Cuff Location: Left Arm; Cuff Size: Standard 09-01-2008 10:46-0400 BP Systolic 122 mm[Hg] Lauren [facility] Work Phone: Comment on above: Patient Position: Si tting; Cuff Location: Left Arm; Cuff Size: Standard 09-01-2008 10:46-0400 Head Circumference 0 cm Emily Jenkins [facility] Work Phone: 09-01-2008 10:46-0400 Head Occipital-frontal circumference 0 cm Lauren [facility]; [facility] Work Phone: 09-01-2008 10:46-0400 Height 0 cm Lauren [facility] Work Phone: 09-01-2008 10:46-0400 Pulse (Heart Rate) 83 /min Lauren [facility] Work Phone: Comment on above: Pattern: Regular 09-01-2008 10:46-0400 Respiratory Rate 18 /min Lauren [facility] Work Phone: Comment on above: Pattern: Unlabored 09-01-2008 10:46-0400 Weight 65.52 kg Emily Jenkins [facility] Work Phone: 08-11-2008 12:52-0500 Body Temperature 98.2 [degF] Lauren [facility] Work Phone: Comment on above: Method: Oral 08-11-2008 12:52-0500 Body weight 65.52 kg Lauern [facility] Work Phone: 08-11-2008 12:52-0500 BP Diastolic 78 mm[Hg] Lauren [facility] Work Phone: Comment on above: Patient Position: Si tting; Cuff Location: Left Arm; Cuff Size: Large 08-11-2008 12:52-0500 BP Systolic 132 mm[Hg] Lauren [facility] Work Phone: Comment on above: Patient Position: Si tting; Cuff Location: Left Arm; Cuff Size: Large 08-11-2008 12:52-0500 Head Circumference 0 cm Emily Jenkins [facility] Work Phone: 08-11-2008 12:52-0500 Head Occipital-frontal circumference 0 cm Lauren [facility]; [facility] Work Phone: 08-11-2008 12:52-0500 Height 0 cm Lauren [facility] Work Phone: 08-11-2008 12:52-0500 P[facility] (Heart Rate) 89 [facility] Work [facility]: Comment on above: Pattern: Regular 08-11-2008 12:52-0500 Respiratory Rate 18 /min Lauren [facility] Work Phone: Comment on above: Pattern: Unlabored 08-11-2008 12:52-0500 Weight 65.52 kg Emily Jenkins [facility] Work Phone: 08-09-2008 11:20-0500 Body Temperature 975 [degF] Lauren [facility] Work Phone: Comment on above: Method: Oral 08-09-2008 11:20-0500 Body weight 65.52 kg Lauren [facility] Work Phone: 08-09-2008 11:20-0500 BP Diastolic 82 mm[Hg] [facility] Work Phone: Comment on above: Patient Position: Si tting; Cuff Location: Left Arm; Cuff Size: Standard 08-09-2008 11:20-0500 BP Systolic 128 mm[Hg] [facility] Work Phone: Comment on above: Patient Position: Si tting; Cuff Location: Left Arm; Cuff Size: Standard 08-09-2008 11:20-0500 Head Circumference 0 cm Emily [facility] Work Phone: 08-09-2008 11:20-0500 Head Occipital-frontal circumference 0 cm Lauren Calame [facility]; [facility] Work Phone: 08-09-2008 11:20-0500 Height 0 cm Lauren Cormier [facility] Work Phone: 08-09-2008 11:20-0500 Pulse (Heart Rate) 76 /min Lauren Cormier [facility] Work Phone: Comment on above: Pattern: Regular 08-09-2008 11:20-0500 Pulse Oximetry 98 % Emily Jenkins [facility] Work Phone: Comment on above: Room air 08-09-2008 11:20-0500 Respiratory Rate 18 /min Lauren Cormier [facility] Work Phone: Comment on above: Pattern: Unlabored 08-09-2008 11:20-0500 SaO2% (BldA) [Mass fraction] 98 % Lauren Cormier [facility]; [facility] Work Phone: 08-09-2008 11:20-0500 Weight 65.52 kg Emily Mondragonon [facility] Work Phone: 07-27-2008 11:02-0500 Body weight 65.52 kg Santos Child RN [facility] Work Phone: 07-27-2008 11:02-0500 BP Diastolic 60 mm[Hg] Santos Child RN [facility] Work Phone: Comment on above: Patient Position: Si tting; Cuff Location: Right Arm; Cuff Size: Standard 07-27-2008 11:02-0500 BP Systolic 124 mm[Hg] Santos Child RN [facility] Work Phone: Comment on above: Patient Position: Si tting; Cuff Location: Right Arm; Cuff Size: Standard 07-27-2008 11:02-0500 Head Circumference 0 cm Emily Jenkins [facility] Work Phone: 07-27-2008 11:02-0500 Head Occipital-frontal circumference 0 cm Santos Child RN [facility]; [facility] Work Phone: 07-27-2008 11:02-0500 Height 0 cm Santos Child RN [facility] Work Phone: 07-27-2008 11:02-0500 Pulse (Heart Rate) 88 /min Santos Child RN [facility] Work Phone: Comment on above: Pattern: Regular 07-27-2008 11:02-0500 Respiratory Rate 20 /min Santos Child RN [facility] Work Phone: Comment on above: Pattern: Unlabored 07-27-2008 11:02-0500 Weight 65.52 kg Emily Jenkins [facility] Work Phone: 05-26-2008 10:54-0500 Body weight 64.1 kg Santos Child RN [facility] Work Phone: 05-26-2008 10:54-0500 BP Diastolic 68 mm[Hg] Santos Child RN [facility] Work Phone: Comment on above: Patient Position: Si tting; Cuff Location: Left Arm; Cuff Size: Standard 05-26-2008 10:54-0500 BP Systolic 128 mm[Hg] Santos Child RN [facility] Work Phone: Comment on above: Patient Position: Si tting; Cuff Location: Left Arm; Cuff Size: Standard 05-26-2008 10:54-0500 Head Circumference 0 cm Emily Jenkins [facility] Work Phone: 05-26-2008 10:54-0500 Head Occipital-frontal circumference 0 cm Santos Child RN [facility]; [facility] Work Phone: 05-26-2008 10:54-0500 Height 0 cm Santos Child RN [facility] Work Phone: 05-26-2008 10:54-0500 Pulse (Heart Rate) 68 /min Santos Child RN [facility] Work Phone: Comment on above: Pattern: Regular 05-26-2008 10:54-0500 Respiratory Rate 20 /min Santos Child RN [facility] Work Phone: Comment on above: Pattern: Unlabored 05-26-2008 10:54-0500 Weight 64.1 kg Emily Jenkins [facility] Work Phone: 05-11-2008 10:23-0500 Body weight 64.1 kg Santos Child RN [facility] Work Phone: 05-11-2008 10:23-0500 BP Diastolic 68 mm[Hg] Santos Child RN [facility] Work Phone: Comment on above: Patient Position: Si tting; Cuff Location: Left Arm; Cuff Size: Standard 05-11-2008 10:23-0500 BP Systolic 138 mm[Hg] Santos Child RN [facility] Work Phone: Comment on above: Patient Position: Si tting; Cuff Location: Left Arm; Cuff Size: Standard 05-11-2008 10:23-0500 Head Circumference 0 cm Emily Alice [facility] Work Phone: 05-11-2008 10:23-0500 Head Occipital-frontal circumference 0 cm Santos Child RN [facility]; [facility] Work Phone: 05-11-2008 10:23-0500 Height 0 cm Santos Child RN [facility] Work Phone: 05-11-2008 10:23-0500 Pulse (Heart Rate) 88 /min Santos Child RN [facility] Work Phone: Comment on above: Pattern: Regular 05-11-2008 10:23-0500 Respiratory Rate 20 /min Santos Child RN [facility] Work Phone: Comment on above: Pattern: Unlabored 05-11-2008 10:23-0500 Weight 64.1 kg Emily Alice [facility] Work Phone: 09-18-2007 08:07-0400 Body Temperature 98.4 [degF] Santos Child RN [facility] Work Phone: Comment on above: Method: Oral 09-18-2007 08:07-0400 Body weight 0 kg Santos Child RN [facility] Work Phone: 09-18-2007 08:07-0400 BP Diastolic 78 mm[Hg] Santos Child RN [facility] Work Phone: Comment on above: Patient Position: Si tting; Cuff Location: Left Arm; Cuff Size: Standard 09-18-2007 08:07-0400 BP Systolic 128 mm[Hg] Santos Child RN [facility] Work Phone: Comment on above: Patient Position: Si tting; Cuff Location: Left Arm; Cuff Size: Standard 09-18-2007 08:07-0400 Head Circumference 0 cm Emily Jenkins [facility] Work Phone: 09-18-2007 08:07-0400 Head Occipital-frontal circumference 0 cm Santos Child RN [facility]; [facility] Work Phone: 09-18-2007 08:07-0400 Height 0 cm Santos Child RN [facility] Work Phone: 09-18-2007 08:07-0400 Pulse (Heart Rate) 88 /min Santos Child RN [facility] Work Phone: Comment on above: Pattern: Regular 09-18-2007 08:07-0400 Respiratory Rate 20 /min Santos Child RN [facility] Work Phone: Comment on above: Pattern: Unlabored 09-18-2007 08:07-0400 Weight 0 kg Emily Jenkins [facility] Work Phone: NEGATED: Highlighted [id number] 14:00-0400 BMI (Body Mass Index) 30.58 kg/m2 Jim Cristina CANDICE [facility] Work Phone: NEGATED: Highlighted [id number] 14:00-0400 Body weight 70.76 kg Jim Cristina CRIMINOLOGY TEACHER [facility] Work Phone: NEGATED: Highlighted [id number] 14:00-0400 Body weight 71 kg Jim Cristina CANDICE [facility] Work Phone: NEGATED: Highlighted [id number] 14:00-0400 BP Diastolic 84 mm[Hg] Jim Cristina CANDICE [facility] Work Phone: NEGATED: Highlighted [id number] 14:00-0400 BP Systolic 171 mm[Hg] Jim Cristina LPN [facility] Work Phone: NEGATED: Highlighted [id number] 14:00-0400 Height 152.4 cm Jim Cristina CRIMINOLOGY TEACHER [facility] Work Phone: NEGATED: Highlighted [id number] 14:00-0400 Height 152 cm Jim Cristina CRIMINOLOGY TEACHER [facility] Work Phone: NEGATED: Highlighted [id number] 14:00-0400 Pulse (Heart Rate) 71 /min Jim Cristina CRIMINOLOGY TEACHER [facility] Work Phone: Encounters Encounter Date Encounter Type Care Provider Facility Start: 12-29-2024 Non-patient / Non-visit Dr. Allison Roblero MD -[facility] Start: 12-29-2024 End: 12-29-2024 Admission to same day surgery center Dr. Allison Roblero MD -Endoscopy Work Phone: Start: 12-29-2024 End: 12-29-[address] Emily Jenkins DO Work Phone: -Endoscopy Start: 12-06-2024 End: 12-06-2024 Patient encounter procedure Bayron ROLLE -[facility] Work Phone: Start: 12-06-2024 End: 12-06-[address] Emily Jenkins DO Work Phone: [facility] Work Phone: Start: 11-12-2024 End: 11-12-[address] Allison Roblero MD -[facility] Work Phone: Start: 11-12-2024 End: 11-12-2024 ambulatory Emily Jenkins Facility:[facility] Start: 11-03-2024 End: 11-03-2024 Emergency department patient visit Dr. Emily Jenkins DO Work Phone: -Emergency Department Work Phone: Start: 11-01-2024 End: 11-01-2024 ambulatory EMILY JENKINS Facility:[facility] Start: 11-01-2024 End: 11-01-2024 Nursing evaluation of patient and report Nurse [facility] Work Phone: [facility] Comment on above: Dysuria (Primary Dx) Start: 10-28-2024 End: 10-30-2024 Follow-up encounter Jayne Benjamin APRN.[employer] Work Phone: [facility] Comment on above: Results Start: 10-27-2024 End: 10-27-2024 Patient encounter procedure Jayne Benjamin APRN.MI[employer]EDER Work Phone: [facility] Comment on above: Acute cystitis witho ut hematuria (Primary Dx) Start: 10-27-2024 End: 10-27-2024 ambulatory EMILY JENKINS Facility:[facility] Start: 06-06-2024 End: 06-06-2024 ambulatory EMILY JENKINS Facility:[facility] Start: 05-07-2024 End: 05-07-2024 ambulatory Emily Jenkins Facility:[facility] Start: 03-22-2024 End: 03-22-2024 ambulatory Reilly Abbott Facility:[facility] Start: 09-15-2023 Telephone encounter Aracely orr PA-C Work Phone: [facility] Comment on above: Results Start: 09-14-2023 End: 09-14-2023 Patient encounter procedure Glory Palmer APRN.MI[employer]ER Work Phone: [facility] Comment on above: Recurrent UTI (urina ry tract infection) (Primary Dx); Urinary frequency Start: 08-11-2023 End: 08-11-2023 Emergency department patient visit Dr. Emily Jenkins Work Phone: [facility]Emer[facility] Work Phone: Start: 08-05-2023 End: 08-05-[address] Emily Jenkins Work Phone: [facility] Work Phone: Start: 07-29-2023 End: 07-29-[address] Emily Jenkins Work Phone: [facility]Laboratory, Specimen Work Phone: Start: 07-29-2023 End: 07-29-[address] Emily Jenkins Work Phone: [facility] Work Phone: Start: 07-22-2023 Non-patient / Non-visit Dr. Emily Jenkins Work Phone: [facility] Start: 07-22-2023 End: 07-22-2023 Admission to same day surgery center Dr. Emily Jenkins Work Phone: [facility] Start: 07-22-2023 End: 07-22-[address] Emily Jenkins Work Phone: [facility] Work Phone: Start: 07-16-2023 End: 07-16-[address] Emily Jenkins Work Phone: [facility] Work Phone: Start: 07-15-2023 End: 07-15-2023 Non-patient / Non-visit Dr. Emily Jenkins Work Phone: [facility] Work Phone: Start: 07-03-2023 End: 07-03-[address] Emily Jenkins Work Phone: [facility] Work Phone: Start: 07-03-2023 End: 07-03-[address] Emily Jenkins Work Phone: [facility] Radiology Start: 07-01-2023 End: 07-02-2023 Emergency department patient [facility] Start: 06-03-2023 End: 06-03-[address] Emily Jenkins Work Phone: [facility] Work Phone: Start: 05-12-2023 End: 05-12-[address] Emily Jenkins Work Phone: [facility] Work Phone: Start: 05-12-2023 End: 05-12-[address] Emily Jenkins Work Phone: [facility] [place] Work Phone: Start: 04-23-2023 End: 04-23-[address] Emily Jenkins Work Phone: [facility] Work Phone: Start: 04-02-2023 End: 04-02-2023 Office outpatient visit 15 minutes Emily Jenkins DO Work Phone: [facility] Start: 03-21-2023 End: 03-21-2023 Emergency department patient visit Dr. Emily Jenkins Work Phone: [facility]Emer[facility] Work Phone: Start: 03-18-2023 Emily hernandez DO Work Phone: [facility] Start: 03-17-2023 End: 03-17-2023 Emergency department patient visit SEEMA CANCHOLA MD Facility:B Start: 03-17-2023 End: 03-17-2023 Emergency department patient visit SEEMA CANCHOLA MD [facility] Start: 03-15-2023 End: 03-15-2023 Emergency department patient visit CRISSY CAMACHO MD Facility:[facility] Start: 03-15-2023 End: 03-15-2023 Emergency department patient visit CRISSY CAMACHO MD [facility] Start: 03-10-2023 End: 03-10-2023 Office outpatient visit 25 minutes Emily Alice DO Work Phone: [facility] Start: 10-23-2022 ambulatory Emily Alice DO [facility] Start: 10-23-2022 End: 10-23-2022 Office outpatient visit 25 minutes Emily Alice DO Work Phone: [facility] Start: 10-23-2022 Emilycarli Mondragono n DO Work Phone: [facility] Start: 08-05-2022 End: 08-05-2022 Office outpatient visit 15 minutes Emily Alice DO Work Phone: [facility] Start: 07-27-2022 End: 07-27-2022 Emergency department patient visit Dr. Emily Jenkins Work Phone: [facility]Emergency Department Start: 07-24-2022 End: 07-24-[address] Emily Jenkins Work Phone: [facility] Start: 07-14-2022 End: 07-15-2022 Emergency department patient visit Dr. Emily Jenkins Work Phone: [facility]Emergency Department Start: 07-13-2022 End: 07-13-2022 Emergency department patient visit Dr. Emily Jenkins Work Phone: [facility]Emergency Department Start: 06-18-2022 End: 06-18-[address] Emily Jenkins Work Phone: [facility] Start: 06-07-2022 End: 06-07-2022 Office outpatient visit 25 minutes Emily Jenkins DO Work Phone: [facility] Start: 05-02-2022 End: 05-02-2022 ambulatory [facility] Work Phone: Start: 05-02-2022 End: 05-02-2022 Patient encounter procedure [facility]Outpatient Bone Densitometry Start: 02-04-2022 End: 02-04-2022 Patient encounter procedure Carole Annamariaverónica ESCROW ASSISTANT [facility] Work Phone: Start: 02-04-2022 End: 02-04-2022 Periodic preventive med est patient 65yrs& older Emily Jenkins DO Work Phone: [facility] Start: 09-13-2021 End: 09-13-2021 Subsequent hospital visit by physician [facility] Work Phone: Radiology Comment on above: Rib pain on right si de [R07.81] Start: 09-13-2021 End: 09-13-2021 Patient encounter procedure Jayne Benjamin APRN.MILL FEEDER Work Phone: [facility] Comment on above: Rib pain on right si de (Primary Dx); Contusion of rib on right side, initial encounter Start: 09-10-2021 Non-patient / Non-visit Dr. Emily Jenkins Work Phone: [facility] Start: 09-10-2021 End: 09-10-2021 Office outpatient visit 25 minutes Emily Jenkins DO Work Phone: [facility] Start: 09-10-2021 End: 09-10-[address] Emily Jenkins Work Phone: [facility]Cardi[facility] Services Start: 08-24-2021 Emily hernandez DO Work Phone: [facility] Start: 07-24-2021 End: 07-24-[address] Emily Jenkins Work Phone: [facility] Start: 04-25-2021 End: 04-25-2021 Office outpatient visit 25 minutes Emily Jenkins DO Work Phone: [facility] Start: 12-13-2020 End: 12-13-2020 Office outpatient visit 25 minutes Emily Jenkins DO Work Phone: [facility] Start: 08-09-2020 End: 08-09-2020 Office outpatient visit 25 minutes Emily Jenkins [facility] Start: 06-12-2020 End: 06-12-2020 Patient encounter procedure Emily Jenkins DO Work Phone: [facility] Start: 06-12-2020 End: 06-12-2020 Periodic preventive med est patient 65yrs& older Emily Jenkins [facility] Start: 06-12-2020 Review Emily Jenkins [facility] Start: 06-02-2020 End: 06-02-2020 Lab Order Emily Alice [facility] Start: 06-02-2020 End: 06-02-2020 Emily Jenkins DO Work Phone: [facility] Start: 04-14-2020 End: 04-14-2020 Office outpatient visit 25 minutes Emily Jenkins [facility] Start: 04-14-2020 Review Emily Jenkins [facility] Start: 04-10-2020 End: 04-10-2020 Office outpatient visit 15 minutes Emilycarli Jenkins [facility] Start: 11-26-2019 End: 11-26-2019 Office outpatient visit 25 minutes Emily Jenkins [facility] Start: 07-19-2019 End: 07-19-2019 Office outpatient visit 25 minutes Emily Jenkins [facility] Start: 06-09-2019 End: 06-09-2019 Patient encounter procedure Emily Jenkins DO Work Phone: [facility] Start: 06-09-2019 End: 06-09-2019 Periodic preventive med est patient 65yrs& older Emily Jenkins [facility] Start: 03-22-2019 End: 03-22-2019 Office outpatient visit 25 minutes Emily Jenkins [facility] Start: 03-05-2019 End: 03-05-2019 Patient encounter procedure Bayron Felton MD Work Phone: [facility] Work Phone: Start: 11-20-2018 End: 11-20-2018 Office outpatient visit 25 minutes Emily Jenkins [facility] Start: 06-29-2018 End: 06-29-2018 Office outpatient visit 25 minutes Emily Alice [facility] Start: 06-05-2018 End: 06-05-2018 Patient encounter procedure Santos Child RN [facility]; [facility] Work Phone: Start: 06-05-2018 End: 06-05-2018 Periodic preventive med est patient 65yrs& older Emily Alice [facility] Start: 02-13-2018 End: 02-13-2018 Office outpatient visit 25 minutes Emily Jenkins [facility] Start: 10-13-2017 End: 10-13-2017 Office outpatient visit 25 minutes Emily Alice [facility] Start: 08-21-2017 End: 08-21-2017 Office outpatient visit 10 minutes Emily Jenkins [facility] Start: 06-11-2017 End: 06-11-2017 Office outpatient visit 15 minutes Emily Alice [facility] Start: 05-30-2017 End: 05-30-2017 Patient encounter procedure Emily Jenkins DO Work Phone: [facility] Start: 05-30-2017 End: 05-30-2017 Periodic preventive med est patient 65yrs& older Emily Jenkins [facility] Start: 02-05-2017 End: 02-05-2017 Office outpatient visit 25 minutes Emily Jenkins [facility] Start: 10-23-2016 End: 10-23-2016 Office outpatient visit 15 minutes Emily Alice [facility] Start: 10-02-2016 End: 10-03-2016 Office outpatient visit 25 minutes Emily Alice [facility] Start: 07-31-2016 End: 07-31-2016 Office outpatient visit 5 minutes Emily Jenkins [facility] Start: 05-29-2016 End: 05-29-2016 Patient encounter procedure Emily Mondragonon DO Work Phone: [facility] Work Phone: Start: 05-29-2016 End: 05-29-2016 Periodic preventive med est patient 65yrs& older Emily Jenkins [facility] Start: 02-21-2016 End: 02-21-2016 Office outpatient visit 25 minutes Emily Jenkins [facility] Start: 09-22-2015 End: 09-22-2015 Phone Encounter Emily Jenkins [facility] Start: 09-22-2015 End: 09-22-2015 Emily Jenkins DO Work Phone: [facility] Start: 09-18-2015 End: 09-18-2015 Office outpatient visit 25 minutes Emily Jenkins [facility] Start: 05-24-2015 End: 05-24-2015 Patient encounter procedure Emily Jenkins DO Work Phone: [facility] Start: 05-24-2015 End: 05-24-2015 Periodic preventive med est patient 65yrs& older Emily Jenkins [facility] Start: 04-20-2015 End: 04-20-2015 Office outpatient visit 25 minutes Emily Jenkins [facility] Start: 12-19-2014 End: 12-19-2014 Office outpatient visit 25 minutes Emily Jenkins [facility] Start: 11-16-2014 End: 11-16-2014 Phone Encounter Emily Jenkins [facility] Start: 11-16-2014 End: 11-16-2014 Emily Jenkins DO Work Phone: [facility] Start: 06-07-2014 End: 06-07-2014 Phone Encounter Emily Jenkins [facility] Start: 06-07-2014 End: 06-07-2014 Emily Jenkins DO Work Phone: [facility] Start: 05-18-2014 End: 05-18-2014 Office outpatient visit 40 minutes Emily Jenkins [facility] Start: 05-18-2014 End: 05-18-2014 Patient encounter procedure Emily Jenkins DO Work Phone: [facility] Start: 11-01-2013 End: 11-01-2013 Patient encounter procedure Emily Jenkins [facility] Start: 11-01-2013 End: 11-01-2013 Emily Jenkins DO Work Phone: [facility] Start: 05-17-2013 End: 05-17-2013 Patient encounter procedure Emily Jenkins [facility] Start: 05-17-2013 End: 05-17-2013 Emily Jenkins DO Work Phone: [facility] Start: 05-03-2013 End: 05-03-2013 Patient encounter procedure Emily Jenkins [facility] Start: 05-03-2013 End: 05-03-2013 Emily Jenkins DO Work Phone: [facility] Start: 04-19-2013 End: 04-19-2013 Patient encounter procedure Emily Jenkins [facility] Start: 04-19-2013 End: 04-19-2013 Emily Jenkins DO Work Phone: [facility] Start: 04-06-2013 End: 04-06-2013 Lab Order Emily Jenkins [facility] Start: 04-06-2013 End: 04-06-2013 Emily Jenkins DO Work Phone: [facility] Start: 12-07-2012 End: 12-07-2012 Patient encounter procedure Emily Jenkins [facility] Start: 12-07-2012 End: 12-07-2012 Emily Jenkins DO Work Phone: [facility] Start: 08-24-2012 End: 08-24-2012 Patient encounter procedure Emily Jenkins [facility] Internal Medicine Start: 08-24-2012 End: 08-24-2012 Emily Jenkins DO Work Phone: [facility] Start: 04-29-2012 End: 04-29-2012 Patient encounter procedure Emily Jenkins [facility] Start: 04-29-2012 End: 04-29-2012 Emily Jenkins DO Work Phone: [facility] Start: 04-16-2012 End: 04-16-2012 Patient encounter procedure Emily Jenkins [facility] Internal Medicine Start: 04-16-2012 End: 04-16-2012 Emily Jenkins DO Work Phone: [facility] Start: 12-19-2011 End: 12-19-2011 Historical Summary Emily Jenkins [facility] Start: 12-19-2011 End: 12-19-2011 Emily Jenkins DO Work Phone: [facility] Start: 10-02-2011 End: 10-02-2011 Patient encounter procedure Emily Jenkins [facility] Start: 10-02-2011 End: 10-02-2011 Emily Jenkins DO Work Phone: [facility] Start: 12-20-2008 End: 12-20-2008 Historical Summary Emily Jenkins [facility] Start: 12-20-2008 End: 12-20-2008 Emily Jenkins DO Work Phone: [facility] Start: 10-05-2008 End: 10-05-2008 Patient encounter procedure Emily Jenkins [facility] Internal Medicine Start: 10-05-2008 End: 10-05-2008 Emily Jenkins DO Work Phone: [facility] Start: 09-01-2008 End: 09-01-2008 Office outpatient visit 15 minutes Emily Jenkins [facility] Start: 08-11-2008 End: 08-11-2008 Office outpatient visit 15 minutes Emily Jenkins [facility] Internal Medicine Start: 08-09-2008 End: 08-09-2008 Patient encounter procedure Emily Jenkins [facility] Start: 08-09-2008 End: 08-09-2008 Emily Jenkins DO Work Phone: [facility] Start: 07-27-2008 End: 07-27-2008 Patient encounter procedure Emily Jenkins [facility] Internal Medicine Start: 07-27-2008 End: 07-27-2008 Emily Jenkins DO Work Phone: [facility] Start: 05-26-2008 End: 05-26-2008 Patient encounter procedure Emily Jenkins [facility] Start: 05-26-2008 End: 05-26-2008 Emily Jenkins DO Work Phone: [facility] Start: 05-11-2008 End: 05-11-2008 Patient encounter procedure Emily Jenkins [facility] Internal Medicine Start: 05-11-2008 End: 05-11-2008 Emily Jenkins DO Work Phone: [facility] Start: 02-12-2008 End: 02-12-2008 Phone Encounter Emily Jenkins [facility] Start: 02-12-2008 End: 02-12-2008 Emily Jenkins DO Work Phone: [facility] Start: 02-03-2008 End: 02-03-2008 Historical Summary Emily Jenkins [facility] Start: 02-03-2008 End: 02-03-2008 Emily Jenkins DO Work Phone: [facility] Start: 09-18-2007 End: 09-18-2007 Patient encounter procedure Emily Jenkins [facility] Start: 09-18-2007 End: 09-18-2007 Emily Jenkins DO Work Phone: [facility] Start: 06-24-2006 End: 06-24-2006 Historical Summary Emily Jenkins [facility] Start: 06-24-2006 End: 06-24-2006 Emily Jenkins DO Work Phone: [facility] Patient encounter procedure Carole Villanueva [facility] Work Phone: Patient encounter procedure Santos Child RN [facility]; [facility] Work Phone: Patient encounter procedure Kenyatta Tabor CRIMINOLOGY TEACHER [facility]; [facility] Work Phone: Patient encounter procedure Carole Villanueva [facility] Work Phone: Patient encounter procedure Camila Pham [facility] Work Phone: Patient encounter procedure Danielalpeshaimee Ankit [facility] Work Phone: Patient encounter procedure Alireza Frost CRIMINOLOGY TEACHER [facility]; [facility] Work Phone: Patient encounter procedure ARMANI Yancey CRIMINOLOGY TEACHER [facility]; [facility] Work Phone: Procedures Date Procedure Procedure Detail Performing Clinician Start: 12-29-[address] Adalid Jenkins DO Work Phone: Start: 11-03-2024 Plain x-ray of pelvi s and lower extremity Dr. Emily Jenkins DO Work Phone: Start: 11-03-2024 Computed tomography of abdomen and pelvis with contrast Dr. Emily Jenkins DO Work Phone: Start: 11-03-2024 Urnls dip stick/tabl et reagent auto microscopy Dr. Emily Jenkins DO Work Phone: Start: 11-03-[address] Emily Jenkins DO Work Phone: Start: 10-27-2024 Urnls dip stick/tabl et rgnt auto w/o microscopy Jayne Benjamin SPECIAL OFFICER.MILL FEEDER Work Phone: Start: 09-14-2023 Urnls dip stick/tabl et rgnt auto w/o microscopy Jayne Benjaimn SPECIAL OFFICER.MILL FEEDER Work Phone: Start: 08-11-2023 Plain chest X-ray Dr. Angela Jenkins Work Phone: Start: 08-11-2023 CT of head without contrast Dr. Emily Jenkins Work Phone: Start: 07-29-[address] Libby Jenkins Work Phone: Start: 07-29-2023 Investigation of transfusion reaction Dr. Emily Jenkins Work Phone: Start: 07-29-[address] Marge Jenkins Work Phone: Start: 07-22-2023 Hysteroscopy,D&C Symphion (Not Applicable) Dr. Emily Jenkins Work Phone: Start: 07-03-[address]23 Diagnostic radiograp hy of abdomen Dr. Emily Jenkins Work Phone: Start: 07-01-2023 Plain X-ray abdomen Dr. Emily Jenkins Work Phone: Start: 05-12-[address] Angela Jenkins Work Phone: Start: 04-23-2023 End: 04-23-2023 Procedure Note: See Note; NOTES: [facility] [address] [place] [address] OFFICE VISIT Date of Service: 04/23/23 MR#: [id number] Acct: [id number] Name: MARIPOSA PIZARRO Rep #: [id number] : 1945 Provider: AQUILINO thomas Age/Sex: 77/F [place] [facility] [place]: Signed Intake Vital Signs 03/21/23 13:37 04/23/23 11:29 04/23/23 11:46 Height 5 ft 1 in 5 ft 6 in 5 ft 1 in Weight: 152 lb 4 oz BMI 24.5 BP 136/72 H Intake Visit Reasons: left ovary pain, bulge *ok per MH Chief Complaint: Left ovary pain Director Independent Required: No Is patient in pain?: Yes Pain scale (1-10): 6 Allergies risedronate sodium [From Actonel] Allergy (Verified 04/23/23 11:36) Other strawberry Allergy (Verified 04/23/23 11:36) Hives fish oil Adverse Reaction (Verified 04/23/23 11:36) skin erruptions onion Adverse Reaction (Verified 04/23/23 11:36) Vomiting propoxyphene HCl [From Darvon] Adverse Reaction (Verified 04/23/23 11:36) Nausea/Vom/Diarrhea [id number] Reductase Inhibitor Adverse Reaction (Verified 04/23/23 11:36) Other Medications lorazepam 0.5 mg tablet 0.5 mg PO DAILY PRN PRN Anxiety 10/18/16 [History Confirmed 04/23/23] calcium carbonate 500 mg calcium (1,250 mg) tablet (Calcium 500) 1,000 mg PO QDAY 10/23/17 [History Confirmed 04/23/23] cholecalciferol (vitamin D3) 125 mcg (5,000 unit) capsule 5,000 unit PO QDAY 10/23/17 [History Confirmed 04/23/23] loratadine 10 mg tablet (Allergy Relief (loratadine)) 10 mg PO QDAY 10/23/17 [History Confirmed 04/23/23] magnesium 250 mg tablet 250 mg PO QDAY 10/23/17 [History Confirmed 04/23/23] omeprazole 20 mg capsule,delayed release 20 mg PO QDAY PRN Heartburn 10/23/17 [History Confirmed 04/23/23] turmeric 400 mg capsule 800 mg PO .weekly 07/24/21 [History Confirmed 04/23/23] zinc gluconate 50 mg tablet 50 mg PO DAILY 07/24/21 [History Confirmed 04/23/23] blood pressure monitor (Blood Pressure Kit) #1 ea 07/24/22 [Rx Confirmed 07/24/22] propranolol 60 mg capsule,24 hr,extended release 60 mg PO QDAY #90 caps 11/01/22 [Rx Confirmed 04/23/23] rosuvastatin 5 mg tablet (Crestor) 5 mg PO .3xweek #36 tabs 03/03/23 [Rx Confirmed 04/23/23] tizanidine 2 mg tablet 2 mg PO Q12H 03/21/23 [History Confirmed 04/23/23] enalapril maleate 2.5 mg tablet 2.5 mg PO DAILY 04/23/23 [History] niacin 100 mg tablet 100 mg PO .as needed 04/23/23 [History Confirmed 04/23/23] Is last menstrual period known: No Post menopausal: Yes Patient : No : No PFSH Medical History (Updated 04/23/23 @ 12:05 by Rebeka Charles NP, TAX CREDIT LEASING CONSULTANT-C) Anxiety Arthritis Asbestos exposure Asthma Atherosclerosis of coronary artery of [place] heart without angina pectoris Benign paroxysmal positional vertigo Dyspnea Epistaxis Essential (primary) hypertension History of hemorrhoids IBS (irritable bowel syndrome) Pure hypercholesterolemia Secondary pulmonary arterial hypertension Shoulder pain Stomach ulcer Surgical History (Updated 04/23/23 @ 11:42 by Migdalia Queen LPN) H/O eye surgery H/O tubal ligation History of back surgery History of coronary artery stent placement (01/07/18) History of tonsillectomy S/P trigger finger release Family History Mother CVA (cerebral vascular accident) Myocardial infarction, Onset Age: 93 Breast cancer Father Myocardial infarction [place] age 60 CAD (coronary artery disease) CABG x 3 Social History (Updated 04/23/23 @ 11:44 by Migdalia Bret, CRIMINOLOGY TEACHER) household members: none current occupational status: retired Smoking Status: Former smoker quit date: 06/23/07 pack-years: 12 alcohol intake: current alcohol intake frequency: a few times a month substance use type: does not use caffeine: Yes Type: carbonated beverages seatbelt use: always do you feel safe at home: Yes HPI left ovary pain, bulge *ok per Details: MARIPOSA PIZARRO is a 77 year old who presents for new patient discussion of pain and "bulge" over left ovary. Denies vaginal bleeding. Is also being seen by ortho for sciatica on left. She denies changes in bowel habits or bloating No SILK HANGER exam "many years". States had conization of cervix 30-40 yr ago. History 3 Elective abortions Hx Para 1 Spontaneous abortions Hx # Term Pregnancies Ectopic pregnancies Hx # Pregnancies Multiple births # of living children 1 Past Pregnancies Del. Date Name GA/Weeks Outcome Route Bth Weight Infant Gen Labor Lgth Anesthesia Del Locatn Provider FOB Unknown Sonal 1984 ROS Const Constitutional: Reports system reviewed and no additional complaints, except as documented Eyes Eyes: Reports system reviewed and no additional complaints, except as documented GI GI: Denies abdominal pain or change in bowel habits : Reports as per HPI Exam Const General: cooperative and no acute distress Nutritional Appearance: well nourished Orientation: oriented x3 GI Inspection: normal to inspection and no visible herniation Palpation: soft, no masses and tender in the LLQ External Female Exam: normal external appearance (inclusion cyst left groin) and normal appearance of the urethra Urethra: normal appearance of the urethra Speculum Exam - Vagina: normal vaginal discharge and vagina atrophic Speculum Exam - Cervix: normal appearance of the cervix Bimanual Exam- Vagina Uterus: uterine size normal, uterine shape normal and non-tender Bimanual Exam- Adnexa, other: no masses and tender (LLQ) Coding Level of Care Code Off vis,new,level 3 Diagnoses Pelvic pain R10.2 Assessment and Plan Assessment and Plan (1) Pelvic pain: Status: Acute Comment: US. If negative, ref Gen surg to reevaluate for hernia Plan Proceed with pelvic ultrasound. She states the bulge "comes and goes and couldn't feel it today". If US is negative, will refer to gen surgery for further evaluation 04/23/23 1206 <Electronically signed by Rebeka [place] TAX CREDIT LEASING CONSULTANT TAX CREDIT LEASING CONSULTANT-C> Date Rebeka Charles TAX CREDIT LEASING CONSULTANT TAX CREDIT LEASING CONSULTANT-C Cosigner Signature: Date (if applicable) CC: Emily Jenkins DO Work Phone: Start: 03-21-2023 End: 03-21-2023 Procedure Note: See Note; NOTES: [facility] Medical Records Department [address] [place] [address] Emergency Department Summary 03/21/23 MR#: [id number] Acct: [id number] Name: MARIPOSA PIZARRO Rep #: [id number] : 1945 77 From: Maxine Osborne MD PCP: Dr. Emily Jenkins, DO Status:DEP ER Location: ED HPI History of Present Illness Chief Complaint: Back Informant: patient Onset/Context/Timing Onset: Days Narrative Narrative: Is a 7-day history of left lower back pain radiating down her left leg. She states her pain started last Friday. She been picking tomatoes in the garden. She threw a tomato off to her right side and when she did that she felt a sharp pain in her groin. She states for the time she got back in the house she had pain in her left lower back radiating down her leg. She went to the emergency room at [place]. X-rays showed no acute bony findings. She was treated with Flexeril which she cut in half and [place] which she would cut in half. By Friday she was not significantly improved and went back to the emergency room. She states they gave her 2 injections and also write her prescriptions for naproxen and tizanidine. She does admit that her symptoms are improving but she is not back to baseline. Her doctor had made an appointment for her to see her PCP today, however the patient found out that it was a nurse practitioner that she was going to see so she figured she would just come to the emergency room instead. She does report some constipation. She did take milk of magnesia without significant results. She was able to pass only a very small amount of stool earlier today. [facility] Medical History Anxiety Arthritis Asbestos exposure Asthma Atherosclerosis of coronary artery of [place] heart without angina pectoris Benign paroxysmal positional vertigo Dyspnea Epistaxis Essential (primary) hypertension History of hemorrhoids IBS (irritable bowel syndrome) Pure hypercholesterolemia Secondary pulmonary arterial hypertension Shoulder pain Stomach ulcer Home Medications lorazepam 0.5 mg tablet 0.5 mg PO DAILY PRN PRN Anxiety 10/18/16 [History Last Taken Unknown] aspirin 81 mg tablet,delayed release (Adult Aspirin Regimen) 81 mg PO QDAY 10/22/17 [History Last Taken 01/07/18] calcium carbonate 500 mg calcium (1,250 mg) tablet (Calcium 500) 1,000 mg PO QDAY 10/23/17 [History Last Taken Unknown] cholecalciferol (vitamin D3) 125 mcg (5,000 unit) capsule 5,000 unit PO QDAY 10/23/17 [History Last Taken Unknown] loratadine 10 mg tablet (Allergy Relief (loratadine)) 10 mg PO QDAY 10/23/17 [History Last Taken Unknown] magnesium 250 mg tablet 250 mg PO QDAY 10/23/17 [History Last Taken Unknown] omeprazole 20 mg capsule,delayed release 20 mg PO QDAY PRN Heartburn 10/23/17 [History Last Taken Unknown] vitamins-lipotropics tablet 1 tab PO QDAY 10/23/17 [History Last Taken Unknown] niacin 100 mg tablet 100 mg PO .weekly 07/24/21 [History Last Taken Unknown] turmeric 400 mg capsule 800 mg PO .weekly 07/24/21 [History Last Taken Unknown] zinc gluconate 50 mg tablet 50 mg PO DAILY 07/24/21 [History Last Taken Unknown] blood pressure monitor (Blood Pressure Kit) #1 ea 07/24/22 [Rx Last Taken Unknown] enalapril maleate 2.5 mg tablet 2.5 mg PO BID #180 tabs 11/01/22 [Rx Last Taken Unknown] propranolol 60 mg capsule,24 hr,extended release 60 mg PO QDAY #90 caps 11/01/22 [Rx Last Taken Unknown] rosuvastatin 5 mg tablet (Crestor) 5 mg PO .3xweek #36 tabs 03/03/23 [Rx Last Taken Unknown] cyclobenzaprine 5 mg tablet 5 mg PO Q8H PRN muscle spasm 03/21/23 [History Last Taken Unknown] hydrocodone-acetaminophen 5-325mg 5mg-325mg 0.5 tab PO Q6H PRN pain 03/21/23 [History Last Taken Unknown] naproxen 250 mg tablet 250 mg PO Q12H 03/21/23 [History Last Taken Unknown] tizanidine 2 mg tablet 2 mg PO Q12H 03/21/23 [History Last Taken Unknown] Allergy/AdvReac Type Severity Reaction Status Date / Time risedronate sodium Allergy Other Verified 03/21/23 13:36 [From Actonel] strawberry Allergy Hives Verified 03/21/23 13:36 fish oil AdvReac skin Verified 03/21/23 13:36 erruptions onion AdvReac Vomiting Verified 03/21/23 13:36 propoxyphene HCl AdvReac Nausea/Vom/ Verified 03/21/23 13:36 [From Darvon] Diarrhea Aphlizd-BAM-OvT Reductase AdvReac Other Verified 03/21/23 13:36 Inhibitor Family History Mother CVA (cerebral vascular accident) Myocardial infarction, Onset Age: 93 Father Myocardial infarction NE age 60 CAD (coronary artery disease) CABG x 3 Surgical History H/O eye surgery H/O tubal ligation History of back surgery History of coronary artery stent placement (01/07/18) History of tonsillectomy Social History household members: none Smoking Status: Former smoker quit date: 06/23/07 pack-years: 12 alcohol intake: current alcohol intake frequency: a few times a month caffeine: Yes Type: carbonated beverages ROS ROS ED Constitutional Constitutional ED: Denies chills or fever(s) Eyes Eyes: Denies discharge from eye(s) ENT ENT ED: Denies discharge from eye(s), rhinorrhea or sore throat Cardiovascular Cardiovascular: Denies chest pain or palpitations Respiratory/Chest Respiratory/Chest: Denies cough or dyspnea Gastrointestinal Gastrointestinal: Reports constipation; Denies abdominal pain, diarrhea, nausea or vomiting Genitourinary Genitourinary ED: Denies dysuria Musculoskeletal Musculoskeletal: Reports back pain and extremity pain Integumentary Denies Abrasions or rash Neurologic Neurologic: Reports paresthesias; Denies headache(s) or weakness Psychiatric Psychiatric: Denies anxiety or depression Allergic/Immunologic Allergic/Immunologic ED: Denies lip swelling or urticaria EXAM Physical Exam Const Vital Signs: 03/21/23 13:37 Temperature 97 F L Temperature Source Temporal Pulse Rate 64 Respiratory Rate 18 Blood Pressure 153/80 H Blood Pressure Mean 104 Pulse Ox 100 Oxygen Delivery Method Room Air Positive well nourished and well developed General Appearance ED: well developed HEENT Reports moist mucous membranes Eyes EOMs intact bilaterally Resp normal respiratory effort and clear to auscultation bilaterally Cardio regular rate and regular rhythm GI soft to palpation and non-tender Back/Spine Back/Spine Narrative: Reproducible tenderness in the left low lumbar paraspinal muscles and over the left sciatic notch. Extremity normal to inspection Neuro oriented x3 and no sensory deficits noted Neuro Narrative: Patient reports decree sensation over the proximal aspect of the left anterior thigh. This is improving. She does have good strength on testing. Strong distal pulses. Skin no rashes or lesions noted MDM MDM MDM Narrative Medical decision making narrative: Patient's story and exam findings are consistent with sciatica. She is already on muscle relaxer, anti-inflammatories, and opioids. I advised her the other medication I could treat her with to help is steroid. She is very reluctant to taking oral steroids over any significant time stating that they make her feel suicidal. She does agree to an IM injection of steroid that would be a slow low- dose release. She will be given a dose of Kenalog. We discussed using stool softeners as I do believe her constipation is secondary to the opioids that she has been using. She states she has not taken [place] the last 2 days. A friend at bedside states that she has stool softeners that she will get the patient. At this time I do not feel repeat imaging is needed. She states that she still has plenty of the pills that she was prescribed at home to use. Return instructions are given Discharge Plan Triage Chief Complaint: Back ED Provider: Maxine Osborne Dx/Rx/DC Orders Clinical Impression: Sciatica Instructions: ED Sciatica Prescriptions: No Action loratadine [Allergy Relief (loratadine)] 10 mg tablet 10 mg PO QDAY omeprazole 20 mg capsule,delayed release(DR/EC) 20 mg PO QDAY PRN (Reason: Heartburn) cholecalciferol (vitamin D3) 5,000 unit capsule 5,000 unit PO QDAY calcium carbonate [Calcium 500] 500 mg calcium (1,250 mg) tablet 1,000 mg PO QDAY magnesium 250 mg tablet 250 mg PO QDAY vitamins-lipotropics tablet tablet 1 tab PO QDAY aspirin [Adult Aspirin Regimen] 81 mg tablet,delayed release (DR/EC) 81 mg PO QDAY zinc gluconate 50 mg tablet 50 mg PO DAILY turmeric 400 mg capsule 800 mg PO .weekly niacin 100 mg tablet 100 mg PO .weekly (DME) blood pressure monitor [Blood Pressure Kit] Kit See Rx Instructions .Route Qty: 1 0RF Rx Instructions: As directed lorazepam 0.5 MG tablet 0.5 mg PO DAILY PRN PRN (Reason: Anxiety) hydrocodone-acetaminophen 5-325 mg tablet 0.5 tab PO Q6H PRN (Reason: pain) Patient Comments: take 1 tablet by mouth every 6 hours if needed for pain cyclobenzaprine 5 mg tablet 5 mg PO Q8H PRN (Reason: muscle spasm) Patient Comments: take 1 tablet by mouth three times a day if needed for muscle spasm naproxen 250 mg tablet 250 mg PO Q12H Patient Comments: take 1 tablet by mouth twice a day for 7 days tizanidine 2 mg tablet 2 mg PO Q12H Patient Comments: take 1 tablet by mouth every 8 hours if needed for muscle spasm propranolol 60 mg capsule,extended release 24 hr 60 mg PO QDAY Qty: 90 3RF enalapril maleate 2.5 mg tablet 2.5 mg PO BID Qty: 180 3RF rosuvastatin [Crestor] 5 mg tablet 5 mg PO .3xweek Qty: 36 3RF Primary Care Provider: Emily Jenkins Referrals: Emily Jenkins DO [Primary Care Provider] - 5-7 Days Disposition Disposition: Home, Self Care What to do if you have Problems For any increased pain, shortness of breath, bleeding, nausea or vomiting, chest pain, or any unexpected problems, contact your Primary Care Provider. Call [facility] ([phone]) or report to the closest Emergency Room. Call 911 if necessary. 03/21/232230 <Electronically signed by Maxine Osborne MD> Cosigner Signature (if applicable): CC: Dr. Emily Jenkins DO Signed Emily Jenkins DO Work Phone: Start: 07-27-2022 End: 07-27-2022 Procedure Note: See Note; NOTES: [facility] Medical Records Department [address] [place] [address] Emergency Department Summary 07/27/22 MR#: [id number] Acct: [id number] Name: MARIPOSA PIZARRO Rep #: [id number] : 1945 76 From: Frank Guzmán MD PCP: Dr. Emily Jenkins DO Status:REG ER Location: ED HPI History of Present Illness Chief Complaint: Hypertension Detail of Chief Complaint: Elevated blood pressure 202/90 Informant: patient Onset/Context/Timing Onset: Today Context: Sudden Onset Timing: Continuous Quality: Elevated blood pressure Location: Initial blood pressure reading at daughters and at patient's residence Maximum Severity: Moderate Worsened by: Nothing Relieved by: Nothing Associated Symptoms Associated Symptoms: Chest discomfort at 1300 Narrative Narrative: Patient is a 76-year-old woman who is recently diagnosed with essential primary hypertension who was on enalapril 2.5 mg. Enalapril was increased to 5 mg. She is also on propranolol 60 mg a day. She states that around 1300 she had chest discomfort that she describes an ache. There was no associated symptoms or radiation. She has no known history of coronary artery disease. She denies indigestion or heartburn. She states she had a headache before her blood pressure was elevated. Presently she does not have a headache. Denies double vision, blurred vision or change in vision. She denies light sensitivity. She has ringing in ears decreased hearing. She denies trouble speech or swallowing. She presently denies chest pain. She denies shortness of breath. She denies back pain. She denies abdominal pain. She denies paresthesia, anesthesia or motor weakness upper or lower extremity. She denies problems with balance or coordination. Prior similar symptoms: Yes Recent Illness/Hospitalization: Yes [facility] Medical History Anxiety Arthritis Asbestos exposure Asthma Atherosclerosis of coronary artery of [place] heart without angina pectoris Benign paroxysmal positional vertigo Dyspnea Epistaxis Essential (primary) hypertension History of hemorrhoids IBS (irritable bowel syndrome) Pure hypercholesterolemia Secondary pulmonary arterial hypertension Shoulder pain Stomach ulcer Home Medications lorazepam 0.5 mg tablet 0.5 mg PO DAILY PRN PRN Anxiety 10/18/16 [History Last Taken Unknown] aspirin 81 mg tablet,delayed release (Adult Aspirin Regimen) 81 mg PO QDAY 10/22/17 [History Last Taken 01/07/18] calcium carbonate 500 mg calcium (1,250 mg) tablet (Calcium 500) 1,000 mg PO QDAY 10/23/17 [History Last Taken Unknown] cholecalciferol (vitamin D3) 125 mcg (5,000 unit) capsule 5,000 unit PO QDAY 10/23/17 [History Last Taken Unknown] loratadine 10 mg tablet (Allergy Relief (loratadine)) 10 mg PO QDAY 10/23/17 [History Last Taken Unknown] magnesium 250 mg tablet 250 mg PO QDAY 10/23/17 [History Last Taken Unknown] omeprazole 20 mg capsule,delayed release 20 mg PO QDAY PRN Heartburn 10/23/17 [History Last Taken Unknown] vitamins-lipotropics tablet 1 tab PO QDAY 10/23/17 [History Last Taken Unknown] niacin 100 mg tablet 100 mg PO .weekly 07/24/21 [History Last Taken Unknown] turmeric 400 mg capsule 800 mg PO .weekly 07/24/21 [History Last Taken Unknown] zinc gluconate 50 mg tablet 50 mg PO DAILY 07/24/21 [History Last Taken Unknown] propranolol 60 mg capsule,24 hr,extended release 60 mg PO QDAY #90 caps 11/20/21 [Rx Last Taken Unknown] rosuvastatin 5 mg tablet (Crestor) 5 mg PO .3xweek #36 tabs 04/17/22 [Rx Last Taken Unknown] blood pressure monitor (Blood Pressure Kit) #1 ea 07/24/22 [Rx Last Taken Unknown] enalapril maleate 5 mg tablet 5 mg PO QDAY #30 tabs 07/24/22 [Rx Last Taken Unknown] Allergy/AdvReac Type Severity Reaction Status Date / Time risedronate sodium Allergy Other Verified 07/27/22 18:24 [From Actonel] strawberry Allergy Hives Verified 07/27/22 18:24 fish oil AdvReac skin Verified 07/27/22 18:24 erruptions onion AdvReac Vomiting Verified 07/27/22 18:24 propoxyphene HCl AdvReac Nausea/Vom/ Verified 07/27/22 18:24 [From Darvon] Diarrhea Wzlyyxy-GBY-QhG Reductase AdvReac Other Verified 07/27/22 18:24 Inhibitor Family History Mother CVA (cerebral vascular accident) Myocardial infarction, Onset Age: 93 Father Myocardial infarction NE age 60 CAD (coronary artery disease) CABG x 3 Surgical History H/O eye surgery H/O tubal ligation History of back surgery History of coronary artery stent placement (01/07/18) History of tonsillectomy Social History (Updated 07/27/22 @ 19:[address] Frank Guzmán MD) household members: none Smoking Status: Former smoker quit date: 06/23/07 pack-years: 12 alcohol intake: current alcohol intake frequency: a few times a month caffeine: Yes Type: carbonated beverages ROS ROS ED Constitutional Constitutional ED: Denies chills, fever(s) or subjective Eyes Eyes: Denies blurry vision, change in vision or diplopia ENT ENT ED: Denies ear pain, rhinorrhea or sore throat Cardiovascular Cardiovascular: Reports chest pain; Denies orthopnea, palpitations, paroxysmal nocturnal dyspnea or racing heartbeat Respiratory/Chest Respiratory/Chest: Denies cough, dyspnea, dyspnea on exertion, orthopnea or paroxysmal nocturnal dyspnea Gastrointestinal Gastrointestinal: Denies abdominal pain, nausea or vomiting Genitourinary Genitourinary ED: Denies dysuria, hematuria or urinary frequency Musculoskeletal Musculoskeletal: Denies arthralgias, back pain, myalgias or neck pain Integumentary Denies rash Neurologic Neurologic: Reports headache(s) and other Details: Greater detail HPI narrative ; Denies paresthesias or weakness Psychiatric Psychiatric: Denies anxiety Endocrine Endocrinology: Denies polydipsia or polyuria Hematologic/Lymphatic Hematologic/Lymphatic: Reports systems reviewed and no addt'l complaints, except as documented EXAM Physical Exam Const Vital Signs: 07/27/22 18:24 07/27/22 19:07 07/27/22 19:08 Temperature 97.1 F L Temperature Source Temporal Pulse Rate 69 69 Respiratory Rate 14 14 Blood Pressure 206/92 H 168/76 H Blood Pressure Mean 130 106 Pulse Ox 99 99 Oxygen Delivery Method Room Air Room Air Positive well nourished and well developed General Appearance ED: well developed and NAD; Negative for cyanotic, diaphoretic or pallor HEENT Reports moist mucous membranes HEENT Narrative: Head is atraumatic normocephalic. Ears normal. TMs normal. Nares patent. Uvula midline. No deviation tongue or protrusion. There is no erythema or exudate of the posterior pharynx. Eyes PERRL and EOMs intact bilaterally Eyes Narrative: There is no nystagmus. There is no papilledema. There is no AV nicking. General Eye ED: Negative for pale conjunctiva or scleral icterus Neck no lymphadenopathy, supple and no JVD Neck Narrative: There are no clear bruits. Chest Wall inspection of chest normal Resp normal respiratory effort and clear to auscultation bilaterally Effort and Inspection: Negative for pain with movement Cardio regular rate, regular rhythm, S1 normal heart sound, S2 normal heart sound and no murmurs GI normal to inspection, nondistended, normoactive bowel sounds, non-tender and non-distended; Negative for hepatosplenomegaly Back/Spine no CVA tenderness Cervical Spine: Negative for cervical spine tenderness Thoracic Spine / Upper Back: Negative for thoracic spinal tenderness Lumbar Spine / Lower Back: Negative for lumbar spinal tenderness Extremity normal to inspection Extremity Narrative: Rate will and DP pulses 2+ and symmetric. General Extremety ED: Negative for edema or tenderness General Extremity: Negative for edema Neuro oriented x3, CN's II-XII intact bilaterally and no sensory deficits noted Neuro Narrative: There is no dysmetria. There is no clonus. There is no Babinski sign. Sensorium / Orientation: alert Motor Exam: strength 5/5 throughout Psych mental status grossly normal Skin no rashes or lesions noted, no wounds and skin turgor normal General Skin Exam: Negative for jaundice or pallor MDM MDM MDM Narrative Medical decision making narrative: Patient with asymptomatic hypertension. Will observe since she took an additional dose of enalapril prior to coming. Will obtain blood work to assess for endorgan dysfunction. Because of her complaint of chest discomfort EKG was obtained as well as troponin. Review of prior admission reveals patient did have elevated blood pressure readings and was on enalapril. Lab Data Attestation: I reviewed the patient's lab results. Lab results narrative: CBC is unremarkable. Labs: Laboratory Results - last 24 hr 07/27/22 07/27/22 07/27/22 19:05 19:05 19:25 WBC 9.1 RBC 4.67 Hgb 14.6 Hct 41.6 MCV 89.1 MCH 31.3 MCHC 35.1 RDW Std Deviation 39.8 RDW Coeff of [place] 12.3 Plt Count 287 MPV 8.8 Immature Gran % (Auto) 0.100 Neut % (Auto) 53.4 Lymph % (Auto) 38.9 [place] % (Auto) 4.7 Eos % (Auto) 2.6 Baso % (Auto) 0.3 Absolute Neuts (auto) 4.8 Absolute Lymphs (auto) 3.53 Nucleated RBC % 0 Sodium 143 Potassium 4.2 Chloride 107 Carbon Dioxide 29.0 Anion Gap 7 BUN 16 Creatinine 0.86 Estim Creat Clear Calc 42.65 Est GFR (MDRD) Af Amer 82 Est GFR (MDRD) Non-Af 68 BUN/Creatinine Ratio 18.5 Glucose 108 H Calcium 10.4 H Troponin I High Sens 4 Urine Color Yellow Urine Clarity Clear Urine pH 7.0 Ur Specific [place] 1.010 Urine Protein 15 H Urine Glucose (UA) Normal Urine Ketones Negative Urine Occult Blood 10 H Urine Nitrite Negative Urine Bilirubin Negative Urine Urobilinogen Normal Ur Leukocyte Esterase 500 H Urine RBC 0 SEEN Urine WBC 5-10 SEEN Ur Squamous Epith Cells 0-5 SEEN Urine Bacteria RARE Urine Mucus 0 SEEN EKG Initial EKG: Attestation: I personally reviewed and interpreted this EKG as follows: Interpretation: Sinus Rhythm (Rate is 68. The MS interval is 196 ms. QS duration 86 ms. QT duration 3 to 98 ms. [place] is normal. There is a flipped T wave in lead III which is nonspecific. There is also flipped T waves in the anterior leads. We will need old EKG for comparison) Prior: Unchanged Treatment and Re-Evaluation Narrative: Patient was informed of results her blood pressure was 144/91. Since there is no evidence of endorgan dysfunction and blood pressure is improved markedly we will discharged to home in stable a nd improved condition Discharge Plan Triage Chief Complaint: Hypertension ED Provider: Frank Guzmán Dx/Rx/DC Orders Clinical Impression: Accelerated essential hypertension, Atherosclerosis of coronary artery of [place] heart without angina pectoris, Essential (primary) hypertension, Pure hypercholesterolemia, Asymptomatic microscopic hematuria, Asymptomatic proteinuria Instructions: ED Hypertension, Established Prescriptions: No Action loratadine [Allergy Relief (loratadine)] 10 mg tablet 10 mg PO QDAY omeprazole 20 mg capsule,delayed release(DR/EC) 20 mg PO QDAY PRN (Reason: Heartburn) cholecalciferol (vitamin D3) 5,000 unit capsule 5,000 unit PO QDAY calcium carbonate [Calcium 500] 500 mg calcium (1,250 mg) tablet 1,000 mg PO QDAY magnesium 250 mg tablet 250 mg PO QDAY vitamins-lipotropics tablet tablet 1 tab PO QDAY aspirin [Adult Aspirin Regimen] 81 mg tablet,delayed release (DR/EC) 81 mg PO QDAY zinc gluconate 50 mg tablet 50 mg PO DAILY turmeric 400 mg capsule 800 mg PO .weekly niacin 100 mg tablet 100 mg PO .weekly enalapril maleate 5 mg tablet 5 mg PO QDAY Qty: 30 6RF (DME) blood pressure monitor [Blood Pressure Kit] Kit See Rx Instructions .Route Qty: 1 0RF Rx Instructions: As directed lorazepam 0.5 MG tablet 0.5 mg PO DAILY PRN PRN (Reason: Anxiety) propranolol 60 mg capsule,extended release 24 hr 60 mg PO QDAY Qty: 90 3RF rosuvastatin [Crestor] 5 mg tablet 5 mg PO .3xweek Qty: 36 3RF Primary Care Provider: Emily Jenkins Referrals: Emily Jenkins DO [Primary Care Provider] - 1-2 Weeks Activity Restrictions/Additional Instructions: If you develop elevated blood pressure with symptoms: Numbness or tingling in your upper or lower extremities Difficulty using your upper or lower extremities Trouble with speech or swallowing Problems with coordination or balance If you have no symptoms take an additional dose of your enalapril. If there is no improvement after 2 to 3 hours then come to the emergency department Disposition Disposition: Home, Self Care What to do if you have Problems For any increased pain, shortness of breath, bleeding, nausea or vomiting, chest pain, or any unexpected problems, contact your Primary Care Provider. Call [facility] ([phone]) or report to the closest Emergency Room. Call 911 if necessary. 07/27/222015 <Electronically signed by Frank Guzmán MD> Cosigner Signature (if applicable): CC: Dr. Emily Jenkins DO Signed Emily Jenkins DO Work Phone: Start: 07-27-2022 End: 07-29-2022 Procedure Note: See Note; NOTES: [facility] Cardiovascular Services [address] [place] [address] 12 Lead EKG 07/27/22 1858 MR#: [id number] Acct: [id number] Name: MARIPOSA PIZARRO Rep #: [id number] : 1945 76 From: Reilly Abbott MD Attending Dr: Status: DEP ER Ordering Dr: Frank Guzmán MD Date: 07/27/22 Location: ED Sex: F C Admitted: Test Reason : Blood Pressure : / mmHG Vent. Rate : 068 BPM Atrial Rate : 068 BPM P-R Int : 196 ms QRS Dur : 086 ms QT Int : 398 ms P-R-T Axes : 044 -18 013 degrees QTc Int : 423 ms Normal sinus rhythm T wave abnormality, consider anterior ischemia Abnormal ECG Confirmed by REILLY ABBOTT MD ([id number]), publishing editor KOBI RYDER ([id number]) on 07/29/2022 1:14:59 PM Referred By: Confirmed By:REILLY ABBOTT MD 07/29/22 1315 Date Reilly Abbott MD CC: Dr. Emily Jenkins DO; Dr. Frank Guzmán MD Signed Emily Jenkins DO Work Phone: Start: 07-24-2022 End: 07-24-2022 Procedure Note: See Note; NOTES: [facility] [address] [place] [address] OFFICE VISIT Date of Service: 07/24/22 MR#: [id number] Acct: [id number] Name: MARIPOSA PIZARRO Rep #: [id number] : 1945 Provider: AQUILINO rinaldi Age/Sex: 76/F Location: [facility] Status: Signed [facility] HPI History of Present Illness Details: MARIPOSA PIZARRO, is a 76 F who presents to the office today for a cardiovascular outpatient follow-up. She has a history of coronary artery disease status post PTCA/DAVID to proximal LCx in November 2017 and PTCA/DAVID to proximal PDA in December 2017, hypertension, hyperlipidemia, and previous smoking history in which she quit after less than half a pack per day for about 20 years on and off. She states she had been to the ER twice recently for elevated blood pressures-her enalapril was increased to 2.5mg daily. She states her blood pressures at home remain elevated. She is attributing this to increased stress with her daughters recent diagnosis of ovarian cancer. From a cardiac standpoint, the patient is doing well. She denies any palpitations. She does have an occasional left chest pain-under left breast. She describes this pain as a pressure. This is brief. She states this occurs when anxious. She states she does not notice this pain with exertion/working out. She denies SOB, Orthopnea, and PND. She does not have bleeding issues; no blood in urine, stool or nosebleeds. She denies any decrease in energy level, myalgias, or claudication. She does not have edema, or sudden weight gain. She denies dizziness, lightheadedness, syncopal or near syncopal episodes, and headaches. Intake Vital Signs 07/24/21 11:54 07/14/22 23:57 07/24/22 12:59 07/24/22 12:59 Height 5 ft 1 in 5 ft 1 in 5 ft 1 in 5 ft 1 in Weight: 163 lb 9.328 oz 160 lb BMI 30.9 30.2 BP 177/78 H 157/77 H Blood Pressure Location Lt brachial Position Sitting Respiration 17 18 Pulse 71 64 Pulse Source Monitor Temp 97.8 F Pulse Oximetry (%) 99 98 Intake Visit Reasons: 1 Y FU Director Independent Required: No Is patient in pain?: No Allergies risedronate sodium [From Actonel] Allergy (Verified 07/24/22 13:20) Other strawberry Allergy (Verified 07/24/22 13:20) Hives fish oil Adverse Reaction (Verified 07/24/22 13:20) skin erruptions onion Adverse Reaction (Verified 07/24/22 13:20) Vomiting propoxyphene HCl [From Darvon] Adverse Reaction (Verified 07/24/22 13:20) Nausea/Vom/Diarrhea [id number] Reductase Inhibitor Adverse Reaction (Verified 07/24/22 13:20) Other Medications lorazepam 0.5 mg tablet 0.5 mg PO DAILY PRN PRN Anxiety 10/18/16 [History Confirmed 07/24/22] aspirin 81 mg tablet,delayed release (Adult Aspirin Regimen) 81 mg PO QDAY 10/22/17 [History Confirmed 07/24/22] calcium carbonate 500 mg calcium (1,250 mg) tablet (Calcium 500) 1,000 mg PO QDAY 10/23/17 [History Confirmed 07/24/22] cholecalciferol (vitamin D3) 125 mcg (5,000 unit) capsule 5,000 unit PO QDAY 10/23/17 [History Confirmed 07/24/22] loratadine 10 mg tablet (Allergy Relief (loratadine)) 10 mg PO QDAY 10/23/17 [History Confirmed 07/24/22] magnesium 250 mg tablet 250 mg PO QDAY 10/23/17 [History Confirmed 07/24/22] omeprazole 20 mg capsule,delayed release 20 mg PO QDAY PRN Heartburn 10/23/17 [History Confirmed 07/24/22] vitamins-lipotropics tablet 1 tab PO QDAY 10/23/17 [History Confirmed 07/24/22] niacin 100 mg tablet 100 mg PO .weekly 07/24/21 [History Confirmed 07/24/22] turmeric 400 mg capsule 800 mg PO .weekly 07/24/21 [History Confirmed 07/24/22] zinc gluconate 50 mg tablet 50 mg PO DAILY 07/24/21 [History Confirmed 07/24/22] propranolol 60 mg capsule,24 hr,extended release 60 mg PO QDAY #90 caps 11/20/21 [Rx Confirmed 07/24/22] rosuvastatin 5 mg tablet (Crestor) 5 mg PO .3xweek #36 tabs 04/17/22 [Rx Confirmed 07/24/22] blood pressure monitor (Blood Pressure Kit) #1 ea 07/24/22 [Rx Confirmed 07/24/22] enalapril maleate 5 mg tablet 5 mg PO QDAY #30 tabs 07/24/22 [Rx Confirmed 07/24/22] PFSH Medical History Anxiety Arthritis Asbestos exposure Asthma Atherosclerosis of coronary artery of [place] heart without angina pectoris Benign paroxysmal positional vertigo Dyspnea Epistaxis Essential (primary) hypertension History of hemorrhoids IBS (irritable bowel syndrome) Pure hypercholesterolemia Secondary pulmonary arterial hypertension Shoulder pain Stomach ulcer Surgical History H/O eye surgery H/O tubal ligation History of back surgery History of coronary artery stent placement (01/07/18) History of tonsillectomy Family History Mother CVA (cerebral vascular accident) Myocardial infarction, Onset Age: 93 Father Myocardial infarction NE age 60 CAD (coronary artery disease) CABG x 3 Social History Smoking Status: Former smoker quit date: 06/23/07 pack-years: 12 alcohol intake: current alcohol intake frequency: a few times a month caffeine: Yes Type: carbonated beverages ROS Const Const: Negative for fatigue, weakness, fever(s), headache(s), chills, frequent falls, weight gain or weight loss Eyes Eyes: Negative for blind spots, loss of peripheral vision, transient loss of vision, blurry vision, change in vision, double vision, floaters or tunnel vision ENT ENT: Negative for headache(s), dizziness, Nosebleed/epistaxis, balance problems or neck pain Cardio Chest Pain: Yes (with increased anxiety) Frequency: other (occasional) Character: other (pressure) Onset: other Location: other (under left breast) Duration: brief Palpitations: No Edema: None Muscle aches with walking: None Resp Respiratory: Negative for SOB with activity, SOB at rest or SOB orthopnea SOB lying down GI GI: Negative nausea, vomiting, heartburn, bloating, vomiting blood/hematemesis, bright, red blood in stools or black,tarry stools Musc Musc: Negative for muscle aches/ myalgia, muscle weakness, joint pain or balance problems Neuro Neuro: Negative for dizziness, lightheadedness, near syncope, syncope, orthostatic symptoms, frequent falls, headache(s), weakness, blurry vision or double vision [place] Hematologic/Lymphatic: Negative for easy bleeding or easy bruising Endo Endo: Negative for fatigue Cardiology Exam Const Appearance: cooperative, healthy appearing, no acute distress, well developed and well groomed Nutritional Appearance: average body habitus, well nourished and overweight Orientation: alert, awake and oriented x3 Head Head: normal to inspection, normocephalic and atraumatic Ears: hearing grossly normal bilaterally and external ears normal Nose: external nose normal Face and Sinus: face symmetric Eyes General: appearance normal, both eyes and all related structures Eyelids: eyelids normal Conjunctivae: conjunctivae normal Pupils: PERRL EOM: EOM intact bilaterally Neck Neck: normal visual inspection, trachea midline and no JVD JVD: +5 Carotids: normal carotid upstroke and bounding pulses Chest Chest inspection: normal inspection of the chest, symmetric chest movement and normal respiratory effort Auscultation: Bilateral: Clear to Auscultation Cardio Palpation: normal PMI Rate: regular rate Rhythm: regular rhythm Heart sounds: S1 normal, S2 normal and normal, physiologic split S2; Negative rub, gallop or murmur GI GI: normal to inspection and soft Neuro General: patient alert, patient awake, patient oriented x3, gait normal, moves all extremities and no focal sensory deficit Skin Skin: no rashes or lesions noted Extremities Pulses: Normal: Right Posterior Tibial Pulse, Left Posterior Tibial Pulse, Right Radial Pulse and Left Radial Pulse Lower Extremity Edema: None: Bilateral Musculoskel Musculoskeletal: No joint tenderness Psych Psychological: anxious (tearful) Supplemental Info Supplemental Information Heart Catheterization and Coronary Intervention 12/17/2017 CORONARY ANGIOGRAPHY DOMINANCE: Right Dominant LEFT HEART ASSESSMENT Left Ventricular Ejection Fraction: by LV Gram 55 % Normal Left Ventricular End Diastolic Pressure Inferior Basal Hypokinesis - Mild LEFT MAIN: Angiographically normal LEFT ANTERIOR DESCENDING ARTERY: Mild luminal irregularities less than 30% DIAGONAL 1: Proximal - Mild luminal irregularities less than 30% CIRCUMFLEX ARTERY: PROX CIRC: 85 % Stenosis RIGHT CORONARY ARTERY: MID RCA: Mild luminal irregularities less than 30% RT PDA: Proximal - 75 % Stenosis INTERVENTION INFORMATION CONCLUSIONS Double vessel CAD of the LCX and PDA Segmented LV systolic dysfunction- Mild Normal Left Ventricular End Diastolic Pressure Non obstructive coronary arteries Successful PTCA/DAVID of the of proximal LCX with a 2.5 x 16 Promus, post dilated distally with a 2.75 and 3.0 x 8 NC Balloon; 85%-->-0%, no dissection. Cardiac intervention from 01/07/2018: CONCLUSIONS Successful PTCA/DAVID of the of proximal PDA with a 2.25 x 12 Promus Synergy; 75%-->0% no dissection. Pt had identical CP/angina during balloon inflation and stent deployment. Echocardiogram from 06/30/2019: Interpretation Summary The estimated ejection fraction is 65 %. Stage 2 diastolic dysfunction. Trivial tricuspid valve insufficiency. Right ventricular systolic pressure estimated to be 23 mmHg. Trivial aortic valve insufficiency. Compared to echo report dated , LV function has remained about the same, and RVSP has improved from 39 mmHg to 23 mmHg. Stress echocardiogram from 12/10/2017: Interpretation Summary The estimated ejection fraction is 65 %. Basal anteroseptal: Severely Hypokinetic. Mid-Lateral : Severely Hypokinetic. Mid-anteroseptal : Severly Hypokinetic. Anterior [place] : Mildly hypokinetic Abnormal, adequate, treadmill echocardiogram. Positive for ischemia by echocardiographic criteria. Patient developed mid anterior septal, and mid anterolateral hypokinesis at peak exercise. In addition she developed significant dyspnea on exertion at peak exercise and chest pain post procedure which spontaneously resolved without medical therapy. Appropriate blood pressure response to exercise. Below average exercise capacity for age. Test terminated due to dyspnea. Final LVEF of 45%. Patient will be referred for catheterization. No complications. Labs: No Data to Display Diagnostics: Electrocardiogram Echocardiogram Stress Test NM Stress Test Chest X-Ray Pulmonary: No Data to Display Assessment and Plan Assessment and Plan (1) History of coronary artery stent placement: Status: Chronic Comment: [id number] LCx w/ 2.5 x 16 mm Synergy MR DAVID 12/17/17; [id number] RPDA w/ 2.25 x 12 mm Synergy stent 01/07/2018 Plan: Patient has a history of coronary artery disease with stent placement in 2018. Her most recent stress test from 09/10/2021 was negative for ischemia. She does have an occasional brief chest pain with increased anxiety. At this time, she will continue with her current medical therapy, along with aggressive risk factor and lifestyle modifications. She will continue to monitor for any concerning/worsening symptoms. (2) Essential (primary) hypertension: Status: Chronic Plan: Patient has a history of hypertension. Her blood pressure is elevated in the office today. She states her blood pressures at home have been elevated as well. She will be asked to increase enalapril to 5mg daily. She will continue to monitor her blood pressures at home, and notify our office of readings in 2 weeks. (3) Pure hypercholesterolemia: Status: Chronic Plan: Patient has a history of hypercholesterolemia. Her PCP monitors this. She will continue rosuvastatin 5mg three times a week, along with aggressive risk factor and lifestyle modifications. Medications: New blood pressure monitor (Blood Pressure Kit) As directed 1 ea 0RF Hypertension Changed From enalapril maleate 2.5 mg PO QDAY To enalapril maleate 5 mg PO QDAY 30 tabs 6RF Plan Details Additional Comments: Patient will follow up in 3 months, or sooner if needed. Thank you for allowing me to participate in the care of your patient. Please don't hesitate to call if any issues arise. This note was generated using a voice recognition system and there may be incorrect words, spelling, or punctuation that were not noted when reviewing the office note prior to saving. Portions of this documentation were copied and pasted from previous office visit notes to provide a cohesive continuity of the history. The note has been reviewed, edited, and updated, as necessary. Follow Up: 3 Months (TAX CREDIT LEASING CONSULTANT/PA) 9-12 Months (HALFTONE OPERATOR) Coding Level of Care Code Off vis,est,level 4 Diagnoses History of coronary artery stent placement Z95.5 Essential (primary) hypertension I10 Pure hypercholesterolemia E78.00 Coding Level of Care Code Off vis,est,level 4 Diagnoses History of coronary artery stent placement Z95.5 Essential (primary) hypertension I10 Pure hypercholesterolemia E78.00 07/24/22 1402 <Electronically signed by Santos Donato NP TAX CREDIT LEASING CONSULTANT-C> Date Santos Donato TAX CREDIT LEASING CONSULTANT TAX CREDIT LEASING CONSULTANT-C Cosigner Signature: Date (if applicable) CC: DO Emily Lancaster DO Work Phone: Start: 07-15-2022 Plain chest X-ray Dr. Angela Jenkins Work Phone: Start: 07-15-2022 End: 07-15-2022 Procedure Note: See Note; NOTES: [facility] Imaging Services [address] [place] [address] Chest PA and Lateral MR#: [id number] Acct: [id number] Name: MARIPOSA PIZARRO Rep #: [id number] : 1945 F 76 From: Elian orr MD PCP: Dr. Emily Jenkins DO Status: REG ER Study: Chest PA and Lateral Date of Exam: 07/15/22 Exam# [id number] Ordering Dr: Preet Scott DO EXAM: XR CHEST, 2 VIEWS CLINICAL INDICATION: chest pain TECHNIQUE: Frontal and lateral views of the chest. This report was created using [employer] report generation technology. COMPARISON: Previous chest radiographs of 10/13/2017 and 05/19/2016. FINDINGS: LUNGS AND PLEURAL SPACES: Unremarkable. No consolidation or edema. No pneumothorax. No effusion. HEART: Heart size remains borderline enlarged, with normal pulmonary vasculature. Coronary artery stent material is now visualized. MEDIASTINUM: Aortic arch is again noted be calcific. The thoracic aorta is not elongated. No mediastinal widening. Trachea is midline. BONES/JOINTS: Stable multilevel thoracic degenerative disc disease. Pedicle screws and rods are now partially visualized in the mid to lower lumbar region. SOFT TISSUES: Unremarkable. RAD/Chest PA and Lateral IMPRESSION: Interval placement of lumbar pedicles and screws. No radiographic evidence of acute cardiopulmonary disease. Electronically Signed: Elian Ortiz MD at 0:50 EST , CC: Dr. Emily Jenkins DO; Dr. Preet Scott DO [place] Layer: Signed Emily Jenkins DO Work Phone: Start: 07-15-2022 End: 07-15-2022 Procedure Note: See Note; NOTES: [facility] Medical Records Department [address] [place] [address] Emergency Department Summary 07/15/22 MR#: [id number] Acct: [id number] Name: MARIPOSA PIZARRO Rep #: [id number] : 1945 76 From: Preet Mosquera PCP: Dr. Emily Jenkins DO Status:DEP ER Location: ED HPI History of Present Illness Chief Complaint: Hypertension Informant: patient Narrative Narrative: Presents for evaluation of elevated blood pressure with slight chest pain today. Patient seen yesterday for anxiety with elevated blood pressure. She is on enalapril 1.25 mg daily she is on propanolol 60 mg daily. She is taking her medications. She states yesterday was more stressed with her daughter's ovarian cancer diagnosis. Today she states that was not as much on her mind however states there is other things with previous deaths in the family and friends that she was thinking about. She states she took her a quarter of her Ativan she took her nighttime enalapril. She noted some twinge in her chest. She checked her blood pressure is 180/100. Her typical blood pressure at home is 125 over 70s she does admit to having whitecoat syndrome. History of coronary stent x2 therefore with her twinges in her chest she was concerned also wanted this checked out. Denies recent cough. Denies current chest symptoms. [facility] Medical History Anxiety Arthritis Asbestos exposure Asthma Atherosclerosis of coronary artery of [place] heart without angina pectoris Benign paroxysmal positional vertigo Dyspnea Epistaxis Essential (primary) hypertension History of hemorrhoids IBS (irritable bowel syndrome) Pure hypercholesterolemia Secondary pulmonary arterial hypertension Shoulder pain Stomach ulcer Home Medications lorazepam 0.5 mg tablet 0.5 mg PO DAILY PRN PRN Anxiety 10/18/16 [History Last Taken Unknown] aspirin 81 mg tablet,delayed release (Adult Aspirin Regimen) 81 mg PO QDAY 10/22/17 [History Last Taken 01/07/18] calcium carbonate 500 mg calcium (1,250 mg) tablet (Calcium 500) 1,000 mg PO QDAY 10/23/17 [History Last Taken Unknown] cholecalciferol (vitamin D3) 125 mcg (5,000 unit) capsule 5,000 unit PO QDAY 10/23/17 [History Last Taken Unknown] loratadine 10 mg tablet (Allergy Relief (loratadine)) 10 mg PO QDAY 10/23/17 [History Last Taken Unknown] magnesium 250 mg tablet 250 mg PO QDAY 10/23/17 [History Last Taken Unknown] omeprazole 20 mg capsule,delayed release 20 mg PO QDAY PRN Heartburn 10/23/17 [History Last Taken Unknown] pyridoxine (vitamin B6) 100 mg tablet (Vitamin B-6) 100 mg PO QDAY 10/23/17 [History Last Taken Unknown] vitamins-lipotropics tablet 1 tab PO QDAY 10/23/17 [History Last Taken Unknown] enalapril maleate 2.5 mg tablet 1.25 mg PO QDAY 01/21/18 [History Last Taken Unknown] niacin 100 mg tablet 100 mg PO .weekly 07/24/21 [History Last Taken Unknown] turmeric 400 mg capsule 800 mg PO .weekly 07/24/21 [History Last Taken Unknown] zinc gluconate 50 mg tablet 50 mg PO DAILY 07/24/21 [History Last Taken Unknown] propranolol 60 mg capsule,24 hr,extended release 60 mg PO QDAY #90 caps 11/20/21 [Rx Last Taken Unknown] rosuvastatin 5 mg tablet (Crestor) 5 mg PO .3xweek #36 tabs 04/17/22 [Rx Last Taken Unknown] Allergy/AdvReac Type Severity Reaction Status Date / Time risedronate sodium Allergy Other Verified 07/14/22 23:56 [From Actonel] strawberry Allergy Hives Verified 07/14/22 23:56 fish oil AdvReac skin Verified 07/14/22 23:56 erruptions onion AdvReac Vomiting Verified 07/14/22 23:56 propoxyphene HCl AdvReac Nausea/Vom/ Verified 07/14/22 23:56 [From Darvon] Diarrhea Fmejwet-RAM-DwM Reductase AdvReac Other Verified 07/14/22 23:56 Inhibitor Family History Mother CVA (cerebral vascular accident) Myocardial infarction, Onset Age: 93 Father Myocardial infarction NE age 60 CAD (coronary artery disease) CABG x 3 Surgical History H/O eye surgery H/O tubal ligation History of back surgery History of coronary artery stent placement (01/07/18) History of tonsillectomy Social History Smoking Status: Former smoker quit date: 06/23/07 pack-years: 12 alcohol intake: current alcohol intake frequency: a few times a month caffeine: Yes Type: carbonated beverages ROS ROS ED Constitutional Constitutional ED: Denies chills, fever(s) or sweats Eyes Eyes: Denies change in vision ENT ENT ED: Denies dysphagia or sore throat Cardiovascular Cardiovascular: Reports chest pain; Denies leg edema, palpitations or racing heartbeat Respiratory/Chest Respiratory/Chest: Denies cough, dyspnea or dyspnea on exertion Gastrointestinal Gastrointestinal: Denies abdominal pain, diarrhea, nausea or vomiting Genitourinary Genitourinary ED: Denies dysuria, hematuria or urinary frequency Musculoskeletal Musculoskeletal: Denies back pain, extremity pain or neck pain Integumentary Denies rash or wounds Neurologic Neurologic: Denies headache(s), paresthesias or weakness EXAM Physical Exam Const Vital Signs: 07/14/22 23:57 07/14/22 23:59 07/15/22 01:00 Temperature 97.8 F Temperature Source Temporal Pulse Rate 71 Respiratory Rate 17 Respiratory Pattern Normal Blood Pressure 177/78 H Blood Pressure Mean 111 Pulse Ox 99 Oxygen Delivery Method Room Air Room Air 07/15/22 01:00 07/15/22 01:28 07/15/22 01:53 Temperature Temperature Source Pulse Rate 66 66 Respiratory Rate 20 H 15 Respiratory Pattern Blood Pressure 151/65 H 146/67 H 146/67 H Blood Pressure Mean 93 93 Pulse Ox Oxygen Delivery Method Room Air Positive well nourished and well developed General Appearance ED: well developed and NAD HEENT Reports moist mucous membranes normocephalic and atraumatic Eyes PERRL, EOMs intact bilaterally and conjunctivae normal General Eye ED: Yes normal appearance of both eyes Neck no lymphadenopathy and supple General: Negative for tenderness Chest Wall Chest: Negative for tenderness Resp normal respiratory effort and normal air movement Effort and Inspection: symmetric chest movement; Negative for respiratory distress Cardio regular rate, regular rhythm and no murmurs Peripheral Pulses: pulses 2+ throughout GI normal to inspection, nondistended, normoactive bowel sounds and non-tender Palpation: Negative for guarding or rebound tenderness present Back/Spine no CVA tenderness and no thoracic nor lumbar tenderness Extremity normal to inspection General Extremety ED: Negative for edema or tenderness General Extremity: Negative for edema Neuro oriented x3 and no sensory deficits noted Sensorium / Orientation: awake and alert Skin no rashes or lesions noted and no wounds MDM MDM MDM Narrative Medical decision making narrative: Patient blood pressure 177/78 on arrival. Intermittent chest symptoms history of coronary disease. Differential ACS atypical chest pain, hypertensive emergency, musculoskeletal chest pains. Patient without any dyspnea for PE concerns denies extensive sharps severe pain through her back for concerns for dissection. She had symmetric breath sounds therefore lower concerns for pneumothorax. She is seen yesterday records reviewed increased anxiety then, today states that as bad however has been thinking of lost friends 5 years ago. However she is more concerned that her blood pressure remains elevated. With her cardiac history work-up was initiated. 2 view chest x-ray interpreted by myself and read radiology shows no acute process. Troponin less than 3. Per algorithm noncardiac. Hemoglobin 14.2. Creatinine 0.8. Without intervention blood pressure down to 146/67 she states typically 120s systolic. Discussed with her concerns can increase her enalapril back to 1 full tablet 2.5 mg daily. She will continue to monitor her blood pressure. She will follow with her PCP. She understands symptoms with hypotension as this is happened in the past where she decreased her enalapril in half. Return precautions. All questions were answered. Lab Data Attestation: I reviewed the patient's lab results. Labs: Laboratory Results - last 24 hr 07/15/22 07/15/22 00:08 00:08 WBC 9.5 RBC 4.65 Hgb 14.2 Hct 42.2 MCV 90.8 MCH 30.5 MCHC 33.6 RDW Std Deviation 40.7 RDW Coeff of Kurtis 12.5 Plt Count 302 MPV 9.1 Immature Gran % (Auto) 0.200 Neut % (Auto) 43.6 L Lymph % (Auto) 47.2 H [place] % (Auto) 5.8 Eos % (Auto) 2.9 Baso % (Auto) 0.3 Absolute Neuts (auto) 4.1 Absolute Lymphs (auto) 4.49 Nucleated RBC % 0 Sodium 141 Potassium 3.8 Chloride 107 Carbon Dioxide 30.0 Anion Gap 4 L BUN 14 Creatinine 0.80 Estim Creat Clear Calc 45.85 Est GFR (MDRD) Af Amer 89 Est GFR (MDRD) Non-Af 74 BUN/Creatinine Ratio 17.4 Glucose 118 H Calcium 9.6 Troponin I High Sens < 3 L Radiography Diagnostic Testing: Clinical Impression(s) from Imaging Studies Chest X-Ray 07/15/22 00:22 IMPRESSION: Interval placement of lumbar pedicles and screws. No radiographic evidence of acute cardiopulmonary disease. Electronically Signed: Elian Ortiz MD at 0:50 EST , EKG Initial EKG: Attestation: I personally reviewed and interpreted this EKG as follows: Comments: Sinus rate of 67, no ST changes, isolated T wave inversion in lead III. Discharge Plan Triage Chief Complaint: Hypertension ED Provider: Preet Scott Dx/Rx/DC Orders Clinical Impression: Hypertension, History of CAD (coronary artery disease), Atypical chest pain Instructions: Blood Pressure Check Steps, ED Chest Pain, Noncardiac Prescriptions: No Action loratadine [Allergy Relief (loratadine)] 10 mg tablet 10 mg PO QDAY omeprazole 20 mg capsule,delayed release(DR/EC) 20 mg PO QDAY PRN (Reason: Heartburn) cholecalciferol (vitamin D3) 5,000 unit capsule 5,000 unit PO QDAY pyridoxine (vitamin B6) [Vitamin B-6] 100 mg tablet 100 mg PO QDAY calcium carbonate [Calcium 500] 500 mg calcium (1,250 mg) tablet 1,000 mg PO QDAY magnesium 250 mg tablet 250 mg PO QDAY vitamins-lipotropics tablet tablet 1 tab PO QDAY aspirin [Adult Aspirin Regimen] 81 mg tablet,delayed release (DR/EC) 81 mg PO QDAY zinc gluconate 50 mg tablet 50 mg PO DAILY turmeric 400 mg capsule 800 mg PO .weekly niacin 100 mg tablet 100 mg PO .weekly lorazepam 0.5 MG tablet 0.5 mg PO DAILY PRN PRN (Reason: Anxiety) enalapril maleate 2.5 MG tablet 1.25 mg PO QDAY propranolol 60 mg capsule,extended release 24 hr 60 mg PO QDAY Qty: 90 3RF rosuvastatin [Crestor] 5 mg tablet 5 mg PO .3xweek Qty: 36 3RF Primary Care Provider: Emily Jenkins Referrals: Emily Jenkins DO [Primary Care Provider] - Activity Restrictions/Additional Instructions: Cardiac work-up negative. Increase your enalapril to 1 full tab 2.5 mg once a day. Follow-up with your doctor. Blood pressure down to 145/67 on recheck without intervention. Disposition Disposition: Home, Self Care Discharge Date/Time: 07/15/22 01:53 What to do if you have Problems For any increased pain, shortness of breath, bleeding, nausea or vomiting, chest pain, or any unexpected problems, contact your Primary Care Provider. Call [facility] ([phone]) or report to the closest Emergency Room. Call 911 if necessary. 07/15/22 0353 <Electronically signed by Preet Mosquera> Cosigner Signature (if applicable): CC: Dr. Emily Jenkins DO Signed Emily Jenkins DO Work Phone: Start: 07-15-2022 End: 07-15-2022 Procedure Note: See Note; NOTES: [facility] Cardiovascular Services [address] [place] [id number] 12 Lead EKG 07/14/22 2356 MR#: [id number] Acct: [id number] Name: MARIPOSA PIZARRO Rep #: [id number] : 1945 76 From: Reilly Abbott MD Attending Dr: Status: DEP ER Ordering Dr: Preet Scott DO Date: 07/15/22 Location: ED Sex: F C Admitted: Test Reason : Blood Pressure : / mmHG Vent. Rate : 067 BPM Atrial Rate : 067 BPM P-R Int : 194 ms QRS Dur : 078 ms QT Int : 388 ms P-R-T Axes : 050 -25 026 degrees QTc Int : 409 ms Normal sinus rhythm Nonspecific T wave abnormality Abnormal ECG Confirmed by REILLY ABBOTT MD ([id number]), publishing editor KOBI RYDER ([id number]) on 07/15/2022 10:58:58 AM Referred By: TL Confirmed By:REILLY ABBOTT MD 07/15/22 1059 Date Reilly Abbott MD CC: Dr. Emily Jenkins DO; Dr. Preet Scott DO Signed Emily Jenkins DO Work Phone: Start: 07-13-2022 End: 07-13-2022 Procedure Note: See Note; NOTES: [facility] Medical Records Department [address] [place] [id number] Emergency Department Summary 07/13/22 MR#: [id number] Acct: [id number] Name: MARIPOSA PIZARRO Rep #: [id number] : 1945 76 From: Michael Barron MD PCP: Dr. Emily Jenkins DO Status:DEP ER Location: ED HPI History of Present Illness Chief Complaint: Hypertension Detail of Chief Complaint: Acute on chronic hypertension. Increased stress. Informant: patient Onset/Context/Timing Onset: Today Context: Gradual Onset Current Severity: Mild Maximum Severity: Mild Narrative Narrative: 76-year-old female history of hypertension, CAD with 2 cardiac stents. For her hypertension she takes propranolol daily and enalapril. She takes those consistently and regularly. States that she is under increased stress because her daughter recently was diagnosed with ovarian cancer. Said today she got anxious and nervous about that and sent her blood pressure up. Prior to arrival she did take one of her blood pressure meds and a dose of Ativan for her anxiety. She denies any chest pain or headache. Prior similar symptoms: Yes Recent Illness/Hospitalization: No PFSH PFSH Medical History Anxiety Arthritis Asbestos exposure Asthma Atherosclerosis of coronary artery of [place] heart without angina pectoris Benign paroxysmal positional vertigo Dyspnea Epistaxis Essential (primary) hypertension History of hemorrhoids IBS (irritable bowel syndrome) Pure hypercholesterolemia Secondary pulmonary arterial hypertension Shoulder pain Stomach ulcer Home Medications lorazepam 0.5 mg tablet 0.5 mg PO DAILY PRN PRN Anxiety 10/18/16 [History Last Taken Unknown] aspirin 81 mg tablet,delayed release (Adult Aspirin Regimen) 81 mg PO QDAY 10/22/17 [History Last Taken 01/07/18] calcium carbonate 500 mg calcium (1,250 mg) tablet (Calcium 500) 1,000 mg PO QDAY 10/23/17 [History Last Taken Unknown] cholecalciferol (vitamin D3) 125 mcg (5,000 unit) capsule 5,000 unit PO QDAY 10/23/17 [History Last Taken Unknown] loratadine 10 mg tablet (Allergy Relief (loratadine)) 10 mg PO QDAY 10/23/17 [History Last Taken Unknown] magnesium 250 mg tablet 250 mg PO QDAY 10/23/17 [History Last Taken Unknown] omeprazole 20 mg capsule,delayed release 20 mg PO QDAY PRN Heartburn 10/23/17 [History Last Taken Unknown] pyridoxine (vitamin B6) 100 mg tablet (Vitamin B-6) 100 mg PO QDAY 10/23/17 [History Last Taken Unknown] vitamins-lipotropics tablet 1 tab PO QDAY 10/23/17 [History Last Taken Unknown] enalapril maleate 2.5 mg tablet 1.25 mg PO QDAY 01/21/18 [History Last Taken Unknown] niacin 100 mg tablet 100 mg PO .weekly 07/24/21 [History Last Taken Unknown] turmeric 400 mg capsule 800 mg PO .weekly 07/24/21 [History Last Taken Unknown] zinc gluconate 50 mg tablet 50 mg PO DAILY 07/24/21 [History Last Taken Unknown] propranolol 60 mg capsule,24 hr,extended release 60 mg PO QDAY #90 caps 11/20/21 [Rx Last Taken Unknown] rosuvastatin 5 mg tablet (Crestor) 5 mg PO .3xweek #36 tabs 04/17/22 [Rx Last Taken Unknown] Allergy/AdvReac Type Severity Reaction Status Date / Time risedronate sodium Allergy Other Verified 07/13/22 19:31 [From Actonel] strawberry Allergy Hives Verified 07/13/22 19:31 fish oil AdvReac skin Verified 07/13/22 19:31 erruptions onion AdvReac Vomiting Verified 07/13/22 19:31 propoxyphene HCl AdvReac Nausea/Vom/ Verified 07/13/22 19:31 [From Darvon] Diarrhea Bbsdjdp-VJB-UfH Reductase AdvReac Other Verified 07/13/22 19:31 Inhibitor Family History Mother CVA (cerebral vascular accident) Myocardial infarction, Onset Age: 93 Father Myocardial infarction NE age 60 CAD (coronary artery disease) CABG x 3 Surgical History H/O eye surgery H/O tubal ligation History of back surgery History of coronary artery stent placement (01/07/18) History of tonsillectomy Social History Smoking Status: Former smoker quit date: 06/23/07 pack-years: 12 alcohol intake: current alcohol intake frequency: a few times a month caffeine: Yes Type: carbonated beverages ROS ROS ED ROS Narrative Denies. Review of Systems ROS Unobtainable: Denies due to encephalopathy Constitutional Constitutional ED: Denies chills or fever(s) Eyes Eyes: Denies blurry vision ENT ENT ED: Denies ear pain Cardiovascular Cardiovascular: Denies chest pain Respiratory/Chest Respiratory/Chest: Denies cough or dyspnea Gastrointestinal Gastrointestinal: Denies abdominal pain Genitourinary Genitourinary ED: Denies dysuria or hematuria Musculoskeletal Musculoskeletal: Denies arthralgias Integumentary Denies abscess or Abrasions Neurologic Neurologic: Denies headache(s) Psychiatric Psychiatric: Denies anxiety or depression Endocrine Endocrinology: Denies cold intolerance Hematologic/Lymphatic Hematologic/Lymphatic: Reports none Allergic/Immunologic Allergic/Immunologic ED: Denies mouth swelling or tongue swelling EXAM Physical Exam Narrative Exam Narrative: 76-year-old female no acute distress. Anxious and tearful. Vital signs are stable initial blood pressure is 179/94. She does not look septic toxic or in any distress. Is emotionally upset. H EENT exam unremarkable. Neck nontender. Lungs are clear. Heart regular rhythm rate about 70 no murmur. Abdomen soft nontender. Moving all 4 extremities. Calves are nontender without edema. Neurologically she is awake and alert. No focal motor deficits. Const Vital Signs: 07/13/22 19:29 07/13/22 19:39 07/13/22 19:39 Temperature 98 F Temperature Source Temporal Pulse Rate 71 Respiratory Rate 16 15 Respiratory Effort Normal Respiratory Pattern Normal Blood Pressure 179/94 H 169/84 H Blood Pressure Mean 122 112 Pulse Ox 100 99 Oxygen Delivery Method Room Air Room Air Positive well nourished and well developed; Negative for obese, cachectic, contractures or unkempt General Appearance ED: well developed and NAD; Negative for unkempt, cachectic, contractures, cyanotic or diaphoretic Nutritional Appearance: Negative for cachectic or obese HEENT Reports moist mucous membranes; Denies dry mucous membranes Negative for trauma or tenderness Mouth ED: No dry mucous membranes Mouth: No dry mucous membranes Eyes PERRL and EOMs intact bilaterally General Eye ED: Negative for pale conjunctiva or scleral icterus Neck no lymphadenopathy, supple and no JVD General: Negative for tenderness Lymph Lymphatic: Negative for other Chest Wall inspection of chest normal and palpation of chest normal Chest: Negative for other Resp normal respiratory effort and clear to auscultation bilaterally Effort and Inspection: Negative for retractions Auscultation: Negative for rales, rhonchi or wheezes Cardio regular rate, regular rhythm, S1 normal heart sound, S2 normal heart sound and no murmurs Rhythm: Negative for abnormal rhythm GI normal to inspection, nondistended, normoactive bowel sounds, non-tender, non-distended and no masses; Negative for hepatosplenomegaly Inspection: Negative for abdominal distention Auscultation: normoactive bowel sounds Palpation: soft; Negative for tender or guarding Back/Spine no CVA tenderness General Back: Negative for CVA tenderness Cervical Spine: Negative for cervical spine tenderness Thoracic Spine / Upper Back: Negative for thoracic spinal tenderness or paraspinal muscle tenderness Lumbar Spine / Lower Back: Negative for lumbar spinal tenderness Extremity normal to inspection General Extremety ED: Negative for edema or tenderness General Extremity: Negative for edema Neuro oriented x3 and CN's II-XII intact bilaterally Sensorium / Orientation: alert; Negative for orientation impaired, lethargic or stuporous Motor Exam: strength 5/5 throughout Psych Negative for mental status grossly normal Appearance: Negative for unkempt Attitude: No agitated Mood Affect: anxious and tearful; Negative for depressed Skin no rashes or lesions noted, no wounds and skin turgor normal General Skin Exam: elasticity normal Lesions: No lesion noted Rashes: No rashes noted Trauma: Negative for abrasion Wounds: Negative for wounds noted MDM MDM MDM Narrative Medical decision making narrative: 76-year-old female with acute on chronic hypertension. Think this is mostly triggered by her anxiety due to her stress with her daughter's recent diagnosis of ovarian cancer. She takes her blood pressure medications both a beta-lidia and an NELY inhibitor as prescribed. She has not been missing dosages. She will be watched if her blood pressure is reasonable she will be discharged home. Do not think she needs any labs or further evaluation. Her exam is benign. Repeat exam she is doing well at 9:20 PM. Her blood pressure is improving. She will be discharged home with outpatient follow-up. Log your blood pressures twice daily. Follow-up with her doctor if they need to adjust her medications. Most likely they will not. Discharge Plan Triage Chief Complaint: Hypertension ED Provider: Michael Barron Dx/Rx/DC Orders Clinical Impression: Chronic hypertension, Anxiety, History of CAD (coronary artery disease) Instructions: ED High Blood Pressure Hypertension Prescriptions: No Action loratadine [Allergy Relief (loratadine)] 10 mg tablet 10 mg PO QDAY omeprazole 20 mg capsule,delayed release(DR/EC) 20 mg PO QDAY PRN (Reason: Heartburn) cholecalciferol (vitamin D3) 5,000 unit capsule 5,000 unit PO QDAY pyridoxine (vitamin B6) [Vitamin B-6] 100 mg tablet 100 mg PO QDAY calcium carbonate [Calcium 500] 500 mg calcium (1,250 mg) tablet 1,000 mg PO QDAY magnesium 250 mg tablet 250 mg PO QDAY vitamins-lipotropics tablet tablet 1 tab PO QDAY aspirin [Adult Aspirin Regimen] 81 mg tablet,delayed release (DR/EC) 81 mg PO QDAY zinc gluconate 50 mg tablet 50 mg PO DAILY turmeric 400 mg capsule 800 mg PO .weekly niacin 100 mg tablet 100 mg PO .weekly lorazepam 0.5 MG tablet 0.5 mg PO DAILY PRN PRN (Reason: Anxiety) enalapril maleate 2.5 MG tablet 1.25 mg PO QDAY propranolol 60 mg capsule,extended release 24 hr 60 mg PO QDAY Qty: 90 3RF rosuvastatin [Crestor] 5 mg tablet 5 mg PO .3xweek Qty: 36 3RF Primary Care Provider: Emily Jenkins Referrals: Emily Jenkins DO [Primary Care Provider] - 3-5 Days if not improving Activity Restrictions/Additional Instructions: Take your blood pressure medications as prescribed. Log your blood pressures twice daily and follow-up with your doctor to see if they need to adjust her medication. Most likely they will not in the a lot of this is related to the stress related to your daughter's illness. Disposition Disposition: Home, Self Care What to do if you have Problems For any increased pain, shortness of breath, bleeding, nausea or vomiting, chest pain, or any unexpected problems, contact your Primary Care Provider. Call [facility] ([phone]) or report to the closest Emergency Room. Call 911 if necessary. 07/13/22 7451 <Electronically signed by Michael Barron MD> Cosigner Signature (if applicable): CC: Dr. Emily Jenkins DO Signed Emily Jenkins DO Work Phone: Start: 06-18-2022 End: 06-18-2022 Procedure Note: See Note; NOTES: [facility] [address] [place] [address] OFFICE VISIT Date of Service: 06/18/22 MR#: [id number] Acct: [id number] Name: MARIPOSA PIZARRO Rep #: [id number] : 1945 Provider: MAIKEL Wadsworth Age/Sex: 76/F Location: [facility] Status: Signed Intake Vital Signs 06/18/22 14:27 BP 162/82 H Blood Pressure Location Lt brachial Position Sitting Respiration 18 Pulse 84 Pulse Source Monitor Temp 97.7 F L Temp Source Temporal Pulse Oximetry (%) 97 Oxygen Delivery Method room air Intake Visit Reasons: CONCERN FOR SINUS INFECTION Chief Complaint: Sinus congestion/pressure and pain Allergies risedronate sodium [From Actonel] Allergy (Verified 06/18/22 14:28) Other Seasonal Allergies: Uncoded Allergy (Verified 06/18/22 14:28) NEEDS FOLLOW-UP strawberry Allergy (Verified 06/18/22 14:28) Hives fish oil Adverse Reaction (Verified 06/18/22 14:28) skin erruptions onion Adverse Reaction (Verified 06/18/22 14:28) Vomiting propoxyphene HCl [From Darvon] Adverse Reaction (Verified 06/18/22 14:28) Nausea/Vom/Diarrhea [id number]-[id number]-YxA Reductase Inhibitor Adverse Reaction (Verified 06/18/22 14:28) Other Medications lorazepam 0.5 mg tablet 0.5 mg PO DAILY PRN PRN Anxiety 10/18/16 [History Confirmed 06/18/22] aspirin 81 mg tablet,delayed release (Adult Aspirin Regimen) 81 mg PO QDAY 10/22/17 [History Confirmed 06/18/22] calcium carbonate 500 mg calcium (1,250 mg) tablet (Calcium 500) 1,000 mg PO QDAY 10/23/17 [History Confirmed 06/18/22] cholecalciferol (vitamin D3) 125 mcg (5,000 unit) capsule 5,000 unit PO QDAY 10/23/17 [History Confirmed 06/18/22] loratadine 10 mg tablet (Allergy Relief (loratadine)) 10 mg PO QDAY 10/23/17 [History Confirmed 06/18/22] magnesium 250 mg tablet 250 mg PO QDAY 10/23/17 [History Confirmed 06/18/22] omeprazole 20 mg capsule,delayed release 20 mg PO QDAY PRN Heartburn 10/23/17 [History Confirmed 06/18/22] pyridoxine (vitamin B6) 100 mg tablet (Vitamin B-6) 100 mg PO QDAY 10/23/17 [History Confirmed 06/18/22] vitamins-lipotropics tablet 1 tab PO QDAY 10/23/17 [History Confirmed 06/18/22] enalapril maleate 2.5 mg tablet 1.25 mg PO QDAY 01/21/18 [History Confirmed 06/18/22] niacin 100 mg tablet 100 mg PO .weekly 07/24/21 [History Confirmed 06/18/22] turmeric 400 mg capsule 800 mg PO .weekly 07/24/21 [History Confirmed 06/18/22] zinc gluconate 50 mg tablet 50 mg PO DAILY 07/24/21 [History Confirmed 06/18/22] propranolol 60 mg capsule,24 hr,extended release 60 mg PO QDAY #90 caps 11/20/21 [Rx Confirmed 06/18/22] rosuvastatin 5 mg tablet (Crestor) 5 mg PO .3xweek #36 tabs 04/17/22 [Rx Confirmed 06/18/22] amoxicillin 875 mg-potassium clavulanate 125 mg tablet 1 tab PO Q12H 10 days #20 tabs 06/18/22 [Rx Confirmed 06/18/22] PFSH Medical History Anxiety Arthritis Asbestos exposure Asthma Atherosclerosis of coronary artery of [place] heart without angina pectoris Benign paroxysmal positional vertigo Dyspnea Epistaxis Essential (primary) hypertension History of hemorrhoids IBS (irritable bowel syndrome) Pure hypercholesterolemia Secondary pulmonary arterial hypertension Shoulder pain Stomach ulcer Surgical History H/O eye surgery H/O tubal ligation History of back surgery History of coronary artery stent placement (01/07/18) History of tonsillectomy Family History Mother CVA (cerebral vascular accident) Myocardial infarction, Onset Age: 93 Father Myocardial infarction NE age 60 CAD (coronary artery disease) CABG x 3 Social History Smoking Status: Former smoker quit date: 06/23/07 pack-years: 12 alcohol intake: current alcohol intake frequency: a few times a month caffeine: Yes Type: carbonated beverages HPI HPI Chief Complaint: Sinus congestion/pressure and pain Details: MARIPOSA PIZARRO, is a 76 F who presents to the office today for complaint of sinus congestion/pressure and pain. She states that the pain is mostly on the right side of her face. She also reports having pain to her upper jaw and teeth on the right side in particular. No fever, chills, sweats. No cough, shortness of breath or difficulty breathing. No loss of taste or smell. No other associated symptoms or alleviating/aggravating factors. ROS Const Constitutional: No other (6 system ROS completed with pertinent findings in the HPI otherwise normal.) Exam Const General: cooperative and healthy appearing [facility] Head: normal to inspection Ears: hearing grossly normal bilaterally, TM's normal bilaterally and EAC's normal Nose: nasal discharge purulent Face and sinus: sinus tenderness frontal and maxillary Mouth: oral mucosae normal Throat: abnormal tonsil bilaterally erythema and hypertrophy 1+ and postnasal drainage Resp Effort Inspection: normal respiratory effort Auscultation: Bilateral: Clear to Auscultation Cardio Palpation: normal PMI Rate: regular rate Rhythm: regular rhythm Neuro General: patient alert and CN's II-XI intact bilaterally Psych Appearance: grossly normal Mental Status: mental status grossly normal Coding Level of Care Code Off vis,new,level 3 Diagnoses Acute sinusitis J01.90 Assessment and Plan Assessment and Plan (1) Acute sinusitis: Status: Acute Medications: New amoxicillin-pot clavulanate 875-125 mg 1 TAB PO Q12H 20 tabs 0RF 10 days J01.90 - Acute sinusitis, unspecified Plan Augmentin as prescribed today. Encouraged to get plenty of rest, drink lots of clear liquids, and use Tylenol or Ibuprofen (unless contraindicated) for fever and comfort. Patient also educated on other symptomatic management techniques. To be seen in 7-10 days if no improvement; sooner if worsening of symptoms. Patient advised of potential red flags and when appropriate to report to the ED. Patient verbalized understanding and agreement with all the above. 06/18/22 1449 <Electronically signed by Bruce KO> Date Bruce KO Cosigner Signature: Date (if applicable) CC: Emily Jenkins DO Work Phone: Start: 05-02-2022 Dual energy X-ray absorptiometry Start: 05-02-2022 Screening mammography Start: 05-02-2022 End: 05-03-2022 Procedure Note: See Note; NOTES: [facility] Imaging Services [address] [address] Dexa Bone Density Study MR#: [id number] Acct: [id number] Name: MARIPOSA PIZARRO Rep #: [id number] : 1945 F 76 From: Arnaldo salazar MD PCP: Dr. Emily Jenkins DO Status: REG CLI Study: Dexa Bone Density Study Date of Exam: 05/02/22 Exam# [id number] Ordering Dr: Emily Jenkins DO STUDY: DUAL ENERGY X-RAY ABSORPTIOMETRY / DXA REASON FOR EXAM: Female, 76 years old. Z780 TECHNIQUE: Bone Mineral Density (BMD) measurements of lumbar spine and bilateral hips were obtained. COMPARISON: Comparison is made with prior study dated 12/16/2019. FINDINGS: Lumbar Spine (L1-L4): g/cm2 (0.780) / T-score (-1.8) / Z-score (0.5) Findings are suggestive of osteopenia with a moderate fracture risk. Left Femur Total: g/cm2 (0.705) / T-score (-1.9) / Z-score (-0.1) Left Femoral Neck: g/cm2 (0.53 to) / T-score (-2.9) / Z-score (-0.8) Right Femur Total: g/cm2 (0.793) / T-score (-1.2) / Z-score (0.7) Right Femoral Neck: g/cm2 (0.572) / T-score (-2.5) / Z-score (-0.4) The T-Scores on the most recent prior examination were: Lumbar Spine (L1-L4): There has been worsening of bone density since the previous examination. Left Femur Total: which represents a worsening of 2.6%. Right Femur Total: which represents an improvement of 4.7%. BD/Dexa Bone Density Study IMPRESSION: The patient is considered osteoporotic as outlined below according to World Benny Organization (WHO) criteria with a high fracture risk. There has been worsening of bone density since the previous examination. Reference Information: The T-score is the number of standard deviations above or below the standard which is normal for young adults at their peak bone mineral density. The World Health Organization (WHO) interprets the T-scores as follows: Above -1 Normal bone density Between -1 and -2.5 Osteopenia Equal to / or below -2.5 Osteoporosis As a practical clinical guideline, osteopenia may be graded as follows: Mild -1 through -1.5 Moderate -1.6 through -2.0 Severe -2.1 through -2.4 The Z-score is the number of standard deviations above or below age-matched controls. A Z-score of less than -1.5 would be considered abnormal. References: 1. NIH Osteoporosis and Related Bone Diseases www osteo.org 2. International Society for Clinical Densitometry www iscd.org 3. National Osteoporosis Foundation www nof.org Electronically Signed: Arnaldo Magallon MD at 14:45 EST Reading Location ID and State: [address] [place] [address] , Service support , CC: Dr. Emily Jenkins DO [employer] Layer: Signed Emily Jenkins DO Work Phone: Start: 05-02-2022 End: 05-02-2022 Procedure Note: See Note; NOTES: [facility] Imaging Services [address] [place] [address] SCRN MAMM (CAD)W/SHERI BILAT MR#: [id number] Acct: [id number] Name: MARIPOSA PIZARRO Rep #: [id number] : 1945 F 76 From: Arnaldo salazar MD PCP: Dr. Emily Jenkins DO Status: [facility] Study: SCRN MAMM (CAD)W/SHERI BILAT Date of Exam: 04/23 Exam# [id number] Ordering Dr: Emily Jenkins DO MAMMOGRAPHY - BILATERAL SCREENING REASON FOR EXAM: Female, 76 years old. Routine annual screening examination. PERTINENT HISTORY: Mother with breast cancer. TECHNIQUE: Digital bilateral breast sheri (3D mammographic acquisition) in the CC and MLO projections. 2-D mediolateral oblique (MLO) and craniocaudad (CC) views of both breasts were obtained. CAD: Full Field Digital Mammography with Computer Added Detection was performed. COMPARISON: Comparison is made with prior study dated 12/16/2019 and 08/14/2017. FINDINGS: Breast Composition: There are scattered areas of fibroglandular density. There are no dominant masses or suspicious calcifications. Stable benign-appearing bilateral axillary lymph nodes. No other significant abnormalities are identified. There has been no significant change since the prior study. BI/SCRN MAMM (CAD)W/SHERI BILAT IMPRESSION: Stable bilateral screening mammogram. Yearly follow-up mammogram recommended. (A) ASSESSMENT CATEGORY: BIRADS Category 2: Benign. A letter regarding these results will be sent to the patient by the facility within 30 days. Approximately 10% of breast cancers are not detected by mammography. A normal mammogram should not delay biopsy of a clinically suspicious abnormality. [id number] Electronically Signed: Arnaldo Magallon MD at 15:36 EST , CC: Dr. Emily Jenkins DO [employer] Layer: Signed Emily Jenkins DO Work Phone: Start: 09-13-2021 Radex ribs uni w/posteroant ch minimum 3 views Jayne Benjamin APRN.CNP Work Phone: Start: 09-10-2021 End: 09-10-2021 Comments: See Note; NOTES: [facility] Cardiovascular Services [address] [place] [place] [address] MR#: [id number] Acct: [id number] Name: MARIPOSA PIZARRO Rep #: [id number] : 1945 75 From: Reilly Abbott MD Primary Care: Dr. Emily Jenkins, DO Status: REG CLI Referring Dr: Reilly Abbott MD Sex: F C Stress Test Report Exercise myocardial perfusion stress test. 75-year-old lady with a history of chest pain. Stress protocol: Resting EKG demonstrates normal sinus rhythm with a rate of 63 bpm normal intervals are noted resting blood pressure is 134/74 mmHg. The patient exercised according to the regular Rinku protocol for a total duration of 6 minutes and 30 seconds. The maximum heart rate attained was 123 bpm which was 84% of max impact at heart rate the maximum workload was 7 metabolic equivalents. At rest there were no ST or T wave changes noted to suggest ischemia and at peak exercise upsloping ST changes were noted with did not meet the criteria for ischemia. No clinical angina was noted the test was terminated due to leg fatigue. The peak blood pressure was 174/68 mmHg. Myocardial perfusion protocol. 11.8 mCi of technetium 99m sestamibi was injected at rest. The patient exercised according to regular Rinku protocol for total duration of 6-1/2 minutes. At peak exercise 33.0 mCi of technetium 99m sestamibi was injected stress images were obtained stress and rest images were reconstructed and compared in the short axis vertical long and horizontal long axis. Gated images were also obtained. Perfusion SPECT analysis: Review of the stress images demonstrate normal uptake of tracer noted in all areas of the myocardium. The resting images similarly demonstrate normal uptake of tracer noted in all areas of the myocardium. No areas of reversibility are noted to suggest ischemia and no previous infarct is noted. Gated SPECT analysis: The gated ejection fraction is noted to be 85%. Conclusion: Normal exercise myocardial perfusion stress test at a moderate workload. Preserved ejection fraction. 09/10/21 1401 <Electronically signed by Reilly Abbott MD> Date Reilly Abbott MD CC: Dr. Reilly Abbott MD; Dr. Emily Jenkins DO Date Dictated: 09/10/21 1357 Date Transcribed: 09/10/211356 [place]: [place] Signed Emily Jenkins DO Work Phone: Start: 09-10-2021 Radionuclide imaging of perfusion of myocardium under exercise stress Dr. Emily Jenkins Work Phone: Start: 07-24-2021 End: 07-24-2021 Comments: See Note; NOTES: [facility] [address] [place], [place] [id number] OFFICE VISIT Date of Service: 07/24/21 MR#: [id number] Acct: [id number] Name: MARIPOSA PIZARRO Rep #: [id number] : 1945 Provider: Dr. Reilly Abbott MD Age/Sex: 75/F Location: [facility] Status: Signed HPI HPI History of Present Illness Details: MARIPOSA PIZARRO, is a 75 F who presents to the office today for a cardiovascular outpatient follow-up. She has a history of coronary artery disease status post PTCA/DAVID to proximal LCx in November 2017 and PTCA/DAVID to proximal PDA in December 2017, hypertension, hyperlipidemia, and previous smoking history in which she quit after less than half a pack per day for about 20 years on and off. Pt denies chest, arm, jaw, or neck discomfort. His exercise tolerance is stable. Pt denies symptoms of CHF, palpitations, lightheadedness, dizziness, near syncopal or syncopal episodes. Pt denies claudication issues. Pt. denies orthopnea, PND, fever, chills, blood in urine, blood in stool, myalgia, or unexplainable fatigue. She continues with intermittent ankle edema that she feels is weather related. Intake Vital Signs 07/24/21 11:54 Height 5 ft 1 in Weight: 159 lb BP 161/85 H Respiration 16 Pulse 72 Pulse Oximetry (%) 96 Intake Visit Reasons: 6-8 M FU Allergies risedronate sodium [From Actonel] Allergy (Verified 07/24/21 11:55) Other fish oil Adverse Reaction (Verified 07/24/21 11:55) skin erruptions propoxyphene HCl [From Darvon] Adverse Reaction (Verified 07/24/21 11:55) Nausea/Vom/Diarrhea SEASONAL Allergy (Uncoded 07/24/21 11:55) Other STRAWBERRIES Allergy (Uncoded 07/24/21 11:55) Hives ONION Adverse Reaction (Uncoded 07/24/21 11:55) Vomiting statin Adverse Reaction (Uncoded 07/24/21 11:55) abdominal pain Medications lorazepam 0.5 mg PO DAILY PRN PRN 10/18/16 [History Confirmed 07/24/21] aspirin 81 mg tablet,delayed release 81 mg PO QDAY 10/22/17 [History Confirmed 07/24/21] calcium carbonate 500 mg calcium (1,250 mg) tablet 1,000 mg PO QDAY tab 10/23/17 [History Confirmed 07/24/21] cholecalciferol (vitamin D3) 125 mcg (5,000 unit) capsule 5,000 unit PO QDAY 10/23/17 [History Confirmed 07/24/21] loratadine 10 mg tablet 10 mg PO QDAY 10/23/17 [History Confirmed 07/24/21] magnesium 250 mg tablet 250 mg PO QDAY 10/23/17 [History Confirmed 07/24/21] omeprazole 20 mg capsule,delayed release 20 mg PO QDAY PRN 10/23/17 [History Confirmed 07/24/21] pyridoxine (vitamin B6) 100 mg tablet 100 mg PO QDAY 10/23/17 [History Confirmed 07/24/21] vitamins-lipotropics tablet 1 tab PO QDAY 10/23/17 [History Confirmed 07/24/21] enalapril maleate 1.25 mg PO QDAY 01/21/18 [History Confirmed 07/24/21] propranolol 60 mg capsule,24 hr,extended release 60 mg PO QDAY #90 cap 11/16/20 [Rx Confirmed 07/24/21] niacin 100 mg tablet 100 mg PO .weekly tab 07/24/21 [History Confirmed 07/24/21] rosuvastatin 5 mg tablet 5 mg PO .3xweek #36 tab 07/24/21 [Rx Confirmed 07/24/21] turmeric 400 mg capsule 800 mg PO .weekly cap 07/24/21 [History Confirmed 07/24/21] zinc gluconate 50 mg tablet 50 mg PO DAILY 07/24/21 [History Confirmed 07/24/21] Ejection fraction %: 65 to 70 PFSH Medical History Anxiety Arthritis Asbestos exposure Asthma Atherosclerosis of coronary artery of [place] heart without angina pectoris Benign paroxysmal positional vertigo Dyspnea Epistaxis Essential (primary) hypertension History of hemorrhoids IBS (irritable bowel syndrome) Pure hypercholesterolemia Secondary pulmonary arterial hypertension Shoulder pain Stomach ulcer Surgical History H/O eye surgery H/O tubal ligation History of back surgery History of coronary artery stent placement (01/07/18) History of tonsillectomy Family History Mother CVA (cerebral vascular accident) Myocardial infarction, Onset Age: 93 Father Myocardial infarction NE age 60 CAD (coronary artery disease) CABG x 3 Social History Smoking Status: Former smoker quit date: 06/23/07 pack-years: 12 alcohol intake: current alcohol intake frequency: a few times a month caffeine: Yes Type: carbonated beverages ROS Const Const: Negative for fatigue, weakness, headache(s), frequent falls, difficulty sleeping or excessive sweating Eyes Eyes: Negative for loss of peripheral vision, transient loss of vision, blurry vision, double vision or tunnel vision ENT ENT: Negative for headache(s), dizziness, Nosebleed/epistaxis or balance problems Cardio Chest Pain: No Palpitations: No Edema: None Muscle aches with walking: None Resp Respiratory: Negative for SOB with activity, SOB at rest, SOB orthopnea SOB lying down, Cough or paroxysmal nocturnal dyspnea GI GI: Negative nausea, vomiting, heartburn or black,tarry stools : Negative for hematuria Musc Musc: Negative for muscle aches/ myalgia, muscle weakness, joint pain or balance problems Skin Skin: Negative non-healing lesions, rash or unusual bruising Neuro Neuro: Negative for dizziness, lightheadedness, near syncope, syncope, orthostatic symptoms, frequent falls, headache(s), weakness, blurry vision, double vision or lack of coordination [place] Hematologic/Lymphatic: Negative for easy bleeding or easy bruising Endo Endo: Negative for fatigue, excessive sweating or increased thirst/drinking Psych Psych: Positive for anxiety; Negative for depression Allergy Allergy/Immunology: Negative for hives and Negative for rash Cardiology Exam Const Appearance: cooperative, healthy appearing, no acute distress, well developed and well groomed Nutritional Appearance: average body habitus and well nourished Orientation: alert, awake and oriented x3 Head Head: normal to inspection, normocephalic and atraumatic Ears: hearing grossly normal bilaterally and external ears normal Nose: external nose normal, nares normal, nasal mucous membranes and turbinates normal, septum normal and no nasal discharge Face and Sinus: face symmetric Mouth: oral mucosae normal, tongue normal, oropharynx normal and moist mucous membranes Teeth and gingiva: dentition normal Throat: posterior oropharynx normal, tonsils normal and uvula midline Eyes General: appearance normal, both eyes and all related structures Eyelids: eyelids normal Conjunctivae: conjunctivae normal Pupils: PERRL, normal by confrontation and accommodation normal EOM: EOM intact bilaterally Neck Neck: normal visual inspection, trachea midline and no JVD JVD: +5 Carotids: normal carotid upstroke and bounding pulses Chest Chest inspection: normal inspection of the chest, symmetric chest movement and normal respiratory effort Auscultation: Bilateral: Clear to Auscultation Cardio Palpation: normal PMI Rate: regular rate Rhythm: regular rhythm Heart sounds: S1 normal, S2 normal and normal, physiologic split S2; Negative rub, gallop or murmur GI GI: normal to inspection, soft, no hepatosplenomegaly and bowel sounds present Neuro General: patient alert, patient awake, patient oriented x3, gait normal, moves all extremities and no focal sensory deficit Skin Skin: no rashes or lesions noted Extremities Pulses: Normal: Right Femoral Pulse, Left Femoral Pulse, Right Dorsalis Pedis Pulse, Left Dorsalis Pedis Pulse, Right Posterior Tibial Pulse, Left Posterior Tibial Pulse, Right Radial Pulse and Left Radial Pulse Lower Extremity Edema: None: Bilateral Musculoskel Musculoskeletal: No joint tenderness Psych Psychological: normal affect Supplemental Info Supplemental Information Heart Catheterization and Coronary Intervention 12/17/2017 CORONARY ANGIOGRAPHY DOMINANCE: Right Dominant LEFT HEART ASSESSMENT Left Ventricular Ejection Fraction: by LV Gram 55 % Normal Left Ventricular End Diastolic Pressure Inferior Basal Hypokinesis - Mild LEFT MAIN: Angiographically normal LEFT ANTERIOR DESCENDING ARTERY: Mild luminal irregularities less than 30% DIAGONAL 1: Proximal - Mild luminal irregularities less than 30% CIRCUMFLEX ARTERY: PROX CIRC: 85 % Stenosis RIGHT CORONARY ARTERY: MID RCA: Mild luminal irregularities less than 30% RT PDA: Proximal - 75 % Stenosis INTERVENTION INFORMATION CONCLUSIONS Double vessel CAD of the LCX and PDA Segmented LV systolic dysfunction- Mild Normal Left Ventricular End Diastolic Pressure Non obstructive coronary arteries Successful PTCA/DAVID of the of proximal LCX with a 2.5 x 16 Promus, post dilated distally with a 2.75 and 3.0 x 8 NC Balloon; 85%-->-0%, no dissection. Cardiac intervention from 01/07/2018: CONCLUSIONS Successful PTCA/DAVID of the of proximal PDA with a 2.25 x 12 Promus Synergy; 75%-->0% no dissection. Pt had identical CP/angina during balloon inflation and stent deployment. Echocardiogram from 06/30/2019: Interpretation Summary The estimated ejection fraction is 65 %. Stage 2 diastolic dysfunction. Trivial tricuspid valve insufficiency. Right ventricular systolic pressure estimated to be 23 mmHg. Trivial aortic valve insufficiency. Compared to echo report dated , LV function has remained about the same, and RVSP has improved from 39 mmHg to 23 mmHg. Stress echocardiogram from 12/10/2017: Interpretation Summary The estimated ejection fraction is 65 %. Basal anteroseptal: Severely Hypokinetic. Mid-Lateral : Severely Hypokinetic. Mid-anteroseptal : Severly Hypokinetic. Anterior [place] : Mildly hypokinetic Abnormal, adequate, treadmill echocardiogram. Positive for ischemia by echocardiographic criteria. Patient developed mid anterior septal, and mid anterolateral hypokinesis at peak exercise. In addition she developed significant dyspnea on exertion at peak exercise and chest pain post procedure which spontaneously resolved without medical therapy. Appropriate blood pressure response to exercise. Below average exercise capacity for age. Test terminated due to dyspnea. Final LVEF of 45%. Patient will be referred for catheterization. No complications. LIPIDS 03/2021 Chol 154 Trig 175 LDL 84 HDL 40 Labs: No Data to Display Diagnostics: Echocardiogram Pulmonary: No Data to Display Assessment and Plan Assessment and Plan (1) History of coronary artery stent placement: Status: Chronic Comment: UNS-MEP-Mitd LCx w/ 2.5 x 16 mm Synergy MR DAVID 12/17/17; IYS-HIN-Ppny RPDA w/ 2.25 x 12 mm Synergy stent 01/07/2018 Orders: Orders: Nuclear Stress Test - Treadmil Today Plan - Dr. Reilly Abbott MD: Patient is status post previous angioplasty and stenting. I would recommend that we continue her on the current medical therapy without making any changes at this time.I will however recommend that we should perform an exercise myocardial perfusion stress test to screen for any restenosis. (2) Essential (primary) hypertension: Status: Chronic Plan - Dr. Reilly Abbott MD: She does have a history of hypertension which appears to be well controlled when she checks it at home. She is rather anxious at this time but I would not recommend that we make any particular changes she should continue to monitor this. (3) Pure hypercholesterolemia: Status: Chronic Plan - Dr. Reilly Abbott MD: She should continue with aggressive risk factor modification most recent lipid profile demonstrating an LDL of 84, HDL of 40 and a total cholesterol 154. Thank you for allowing me to participate in the care of your patient. Please don't hesitate to call if any issues arise. Plan Details Other Medications: Refilled: rosuvastatin (Crestor) 5 mg PO .3xweek 36 tabs 3RF Additional Comments: Portions of this documentation were copied and pasted from previous office visit notes to provide a cohesive continuity of the history. The note has been reviewed, edited, and updated, as necessary. Follow Up: 1 Year (jhr) Coding Level of Care Code Off vis,est,level 3 Diagnoses History of coronary artery stent placement Z95.5 Essential (primary) hypertension I10 Pure hypercholesterolemia E78.00 Coding Level of Care Code Off vis,est,level 3 Diagnoses History of coronary artery stent placement Z95.5 Essential (primary) hypertension I10 Pure hypercholesterolemia E78.00 07/24/21 1402 <Electronically signed by Reilly Abbott MD> Date Reilly Abbott MD Cosigner Signature: Date (if applicable) CC: Dr. Emily Jenkins, DO Emily Jenkins DO Work Phone: Start: 02-07-2021 End: 02-07-2021 Comments: See Note; NOTES: [facility] Medical Records Department [address] [place] [address] Emergency Department Summary 02/07/21 MR#: [id number] Acct: [id number] Name: MARIPOSA PIZARRO Rep #: [id number] : 1945 75 From: Maxine Osborne MD PCP: Dr. Emily Jenkins, Status:DEP ER Location: ED HPI History of Present Illness Chief Complaint: Nosebleed Informant: patient Onset/Context/Timing Onset: Today Current Severity: Mild Maximum Severity: Moderate Narrative Narrative: Patient present secondary to right-sided nosebleed for the last 30 minutes. Patient states that she has small nosebleeds occasionally. Typically it will resolve with pressure being held for 3 to 5 minutes. She had trouble controlling this nosebleed and states it feels like it was running down her throat. She has had some mild URI symptoms recently. No facial trauma. [facility] Medical History Abnormal electrocardiogram Anxiety Arthritis Asbestos exposure Asthma Atherosclerosis of coronary artery of [place] heart without angina pectoris Benign paroxysmal positional vertigo Chest pain Dyspnea Essential (primary) hypertension History of hemorrhoids IBS (irritable bowel syndrome) Pure hypercholesterolemia Secondary pulmonary arterial hypertension Shoulder pain Stomach ulcer Home Medications lorazepam 0.5 mg PO DAILY PRN PRN 10/18/16 [History Last Taken Unknown] aspirin 81 mg tablet,delayed release 81 mg PO QDAY 10/22/17 [History Last Taken 01/07/18] calcium carbonate 500 mg calcium (1,250 mg) tablet 1,000 mg PO QDAY tab 10/23/17 [History Last Taken Unknown] cholecalciferol (vitamin D3) 125 mcg (5,000 unit) capsule 5,000 unit PO QDAY 10/23/17 [History Last Taken Unknown] guaifenesin 400 mg tablet 400 mg PO Q4H PRN 10/23/17 [History Last Taken Unknown] loratadine 10 mg tablet 10 mg PO QDAY 10/23/17 [History Last Taken Unknown] magnesium 250 mg tablet 250 mg PO QDAY 10/23/17 [History Last Taken Unknown] omeprazole 20 mg capsule,delayed release 20 mg PO QDAY PRN 10/23/17 [History Last Taken Unknown] pyridoxine (vitamin B6) 100 mg tablet 100 mg PO QDAY 10/23/17 [History Last Taken Unknown] vitamins-lipotropics tablet 1 tab PO QDAY 10/23/17 [History Last Taken Unknown] enalapril maleate 1.25 mg PO QDAY 01/21/18 [History Last Taken Unknown] fluticasone propionate 50 mcg/actuation nasal spray,suspension 1 spray INTRANASAL QDAY PRN 11/09/18 [History Last Taken Unknown] rosuvastatin 5 mg tablet 5 mg PO .3xweek #36 tab 06/20/20 [Rx Last Taken Unknown] propranolol 60 mg capsule,24 hr,extended release 60 mg PO QDAY #90 cap 11/16/20 [Rx Last Taken Unknown] Allergy/AdvReac Type Severity Reaction Status Date / Time risedronate sodium Allergy Other Verified 02/07/21 12:42 [From Actonel] fish oil AdvReac skin Verified 02/07/21 12:42 erruptions propoxyphene HCl AdvReac Nausea/Vom/ Verified 02/07/21 12:42 [From Darvon] Diarrhea SEASONAL Allergy Other Uncoded 02/07/21 12:42 STRAWBERRIES Allergy Hives Uncoded 02/07/21 12:42 ONION AdvReac Vomiting Uncoded 02/07/21 12:42 statin AdvReac abdominal Uncoded 02/07/21 12:42 pain Family History Mother CVA (cerebral vascular accident) Myocardial infarction, Onset Age: 93 Father Myocardial infarction NE age 60 CAD (coronary artery disease) CABG x 3 Surgical History H/O eye surgery H/O tubal ligation History of back surgery History of coronary artery stent placement (12/17/17) History of tonsillectomy Social History Smoking Status: Former smoker quit date: 06/23/07 pack-years: 12 alcohol intake: current alcohol intake frequency: a few times a month caffeine: Yes Type: carbonated beverages ROS ROS ED Constitutional Constitutional ED: Denies chills or fever(s) Eyes Eyes: Denies change in vision ENT ENT ED: Reports other Details: Epistaxis, head congestion ; Denies sore throat Cardiovascular Cardiovascular: Denies chest pain Respiratory/Chest Respiratory/Chest: Denies cough or dyspnea Gastrointestinal Gastrointestinal: Denies abdominal pain, diarrhea, nausea or vomiting Integumentary Denies rash Neurologic Neurologic: Denies headache(s) or weakness Allergic/Immunologic Allergic/Immunologic ED: Denies urticaria EXAM Physical Exam Const Vital Signs: 02/07/21 12:40 Temperature 98.4 F Temperature Source Temporal Pulse Rate 67 Respiratory Rate 16 Blood Pressure 184/81 H Blood Pressure Mean 115 Pulse Ox 99 Oxygen Delivery Method Room Air Positive well nourished and well developed General Appearance ED: well developed HEENT Reports normocephalic and head/scalp atraumatic HEENT Narrative: Inflammation of turbinates in the right nare. No active bleeding noted. Eyes PERRL and EOMs intact bilaterally Neck supple Chest Wall inspection of chest normal and palpation of chest normal Resp normal respiratory effort and clear to auscultation bilaterally Cardio regular rate and regular rhythm GI normal to inspection, nondistended, normoactive bowel sounds Palpation: soft Extremity normal to inspection Neuro oriented x3 and no sensory deficits noted Sensorium / Orientation: alert Motor Exam: strength 5/5 throughout Psych mental status grossly normal Skin no rashes or lesions noted MDM MDM MDM Narrative Medical decision making narrative: Patient was given Afrin and observed for half hour. Treatment and Re-Evaluation Comments:: Patient has had no further bleeding here. We discussed packing her nose but she would prefer to hold off on this if possible. She was given return instructions. Discharge Plan Triage Chief Complaint: Nosebleed ED Provider: Maxine Osborne Dx/Rx/DC Orders Clinical Impression: Epistaxis Instructions: ED Epistaxis (Adult) Prescriptions: No Action loratadine [Allergy Relief (loratadine)] 10 mg tablet 10 mg PO QDAY RF: 0 guaifenesin 400 mg tablet 400 mg PO Q4H PRN (Reason: Chest Congestion/Secretions) RF: 0 omeprazole 20 mg capsule,delayed release(DR/EC) 20 mg PO QDAY PRN (Reason: Heartburn) RF: 0 cholecalciferol (vitamin D3) 5,000 unit capsule 5,000 unit PO QDAY RF: 0 pyridoxine (vitamin B6) [Vitamin B-6] 100 mg tablet 100 mg PO QDAY RF: 0 calcium carbonate [Calcium 500] 500 mg calcium (1,250 mg) tablet 1,000 mg PO QDAY RF: 0 magnesium 250 mg tablet 250 mg PO QDAY RF: 0 vitamins-lipotropics tablet tablet 1 tab PO QDAY RF: 0 aspirin [Adult Aspirin Regimen] 81 mg tablet,delayed release (DR/EC) 81 mg PO QDAY RF: 0 fluticasone propionate [Allergy Relief (fluticasone)] 50 mcg/actuation spray,suspension 1 spray INTRANASAL QDAY PRNRF: 0 rosuvastatin [Crestor] 5 mg tablet 5 mg PO .3xweek Qty: 36 RF: 3 lorazepam 0.5 MG tablet 0.5 mg PO DAILY PRN PRN (Reason: Anxiety) RF: 0 enalapril maleate 2.5 MG tablet 1.25 mg PO QDAY RF: 0 propranolol 60 mg capsule,extended release 24 hr 60 mg PO QDAY Qty: 90 RF: 3 Primary Care Provider: Emily Jenkins Referrals: Emily Jenkins DO [Primary Care Provider] - Dwain Parikh MD [STAFF PHYSICIAN] - As Needed Disposition Disposition: Home, Self Care Discharge Date/Time: 02/07/21 14:09 What to do if you have Problems For any increased pain, shortness of breath, bleeding, nausea or vomiting, chest pain, or any unexpected problems, contact your Primary Care Provider. Call [facility] ([phone]) or report to the closest Emergency Room. Call 911 if necessary. 02/07/21 1556 <Electronically signed by Maxine Osborne MD> Cosigner Signature (if applicable): CC: Dr. Emily Jenkins DO Signed Emily Jenkins DO Work Phone: Start: 12-19-2020 End: 12-19-2020 Comments: See Note; NOTES: [facility] [address] [place], [place] [id number] OFFICE VISIT Date of Service: 12/19/20 MR#: [id number] Acct: [id number] Name: MARIPOSA PIZARRO Rep #: [id number] : 1945 Provider: AQUILINO escobar Age/Sex: 75/F Location: [facility] Status: Signed HPI HPI History of Present Illness Details: MARIPOSA PIZARRO, is a 75 F who presents to the office today for a cardiovascular outpatient follow-up. She has a history of coronary artery disease status post PTCA/DAVID to proximal LCx in November 2017 and PTCA/DAVID to proximal PDA in December 2017, hypertension, hyperlipidemia, and previous smoking history in which she quit after less than half a pack per day for about 20 years on and off. Pt denies chest, arm, jaw, or neck discomfort. His exercise tolerance is stable. Pt denies symptoms of CHF, palpitations, lightheadedness, dizziness, near syncopal or syncopal episodes. Pt denies claudication issues. Pt. denies orthopnea, PND, fever, chills, blood in urine, blood in stool, myalgia, or unexplainable fatigue. She continues with intermittent ankle edema that she feels is weather related. She states intermittent hemorrhoids and nose bleeds. Intake Vital Signs 12/19/20 11:27 12/19/20 11:30 Height 5 ft 1 in Weight: 159 lb BMI 30.0 30.8 BP 147/83 H Blood Pressure Location Lt brachial Position Sitting Respiration 18 Pulse 59 L Pulse Source Monitor Pulse Oximetry (%) 96 Intake Visit Reasons: 6 M Director Independent Required: No Is patient in pain?: No Allergies risedronate sodium [From Actonel] Allergy (Verified 12/19/20 11:26) Other fish oil Adverse Reaction (Verified 12/19/20 11:26) skin erruptions propoxyphene HCl [From Darvon] Adverse Reaction (Verified 12/19/20 11:26) Nausea/Vom/Diarrhea SEASONAL Allergy (Uncoded 03/30/19 11:45) Other STRAWBERRIES Allergy (Uncoded 03/30/19 11:45) Hives ONION Adverse Reaction (Uncoded 03/30/19 11:45) Vomiting statin Adverse Reaction (Uncoded 03/30/19 11:45) abdominal pain Medications lorazepam 0.5 mg PO DAILY PRN PRN 10/18/16 [History Confirmed 12/19/20] aspirin 81 mg tablet,delayed release 81 mg PO QDAY 10/22/17 [History Confirmed 12/19/20] calcium carbonate 500 mg calcium (1,250 mg) tablet 1,000 mg PO QDAY tab 10/23/17 [History Confirmed 12/19/20] cholecalciferol (vitamin D3) 125 mcg (5,000 unit) capsule 5,000 unit PO QDAY 10/23/17 [History Confirmed 12/19/20] guaifenesin 400 mg tablet 400 mg PO Q4H PRN 10/23/17 [History Confirmed 12/19/20] loratadine 10 mg tablet 10 mg PO QDAY 10/23/17 [History Confirmed 12/19/20] magnesium 250 mg tablet 250 mg PO QDAY 10/23/17 [History Confirmed 12/19/20] omeprazole 20 mg capsule,delayed release 20 mg PO QDAY PRN 10/23/17 [History Confirmed 12/19/20] pyridoxine (vitamin B6) 100 mg tablet 100 mg PO QDAY 10/23/17 [History Confirmed 12/19/20] vitamins-lipotropics tablet 1 tab PO QDAY 10/23/17 [History Confirmed 12/19/20] enalapril maleate 1.25 mg PO QDAY 01/21/18 [History Confirmed 12/19/20] fluticasone propionate 50 mcg/actuation nasal spray,suspension 1 spray INTRANASAL QDAY PRN 11/09/18 [History Confirmed 12/19/20] rosuvastatin 5 mg tablet 5 mg PO .3xweek #36 tab 06/20/20 [Rx Confirmed 12/19/20] propranolol 60 mg capsule,24 hr,extended release 60 mg PO QDAY #90 cap 11/16/20 [Rx Confirmed 12/19/20] PFSH Medical History (Reviewed 12/19/20 @ 12:05 by Bayron Alberts TAX CREDIT LEASING CONSULTANT, TAX CREDIT LEASING CONSULTANT-C) Abnormal electrocardiogram Anxiety Arthritis Asbestos exposure Asthma Atherosclerosis of coronary artery of [place] heart without angina pectoris Benign paroxysmal positional vertigo Chest pain Dyspnea Essential (primary) hypertension History of hemorrhoids IBS (irritable bowel syndrome) Pure hypercholesterolemia Secondary pulmonary arterial hypertension Shoulder pain Stomach ulcer Surgical History H/O eye surgery H/O tubal ligation History of back surgery History of coronary artery stent placement (12/17/17) History of tonsillectomy Family History Mother CVA (cerebral vascular accident) Myocardial infarction, Onset Age: 93 Father Myocardial infarction NE age 60 CAD (coronary artery disease) CABG x 3 Social History Smoking Status: Former smoker quit date: 06/23/07 pack-years: 12 alcohol intake: current alcohol intake frequency: a few times a month caffeine: Yes Type: carbonated beverages ROS Const Const: Negative for fatigue, weakness, body ache, fever(s) or chills ENT ENT: Negative for dizziness or Nosebleed/epistaxis Cardio Chest Pain: No Palpitations: No Edema: None Muscle aches with walking: None Resp Respiratory: Negative for SOB with activity, SOB at rest, SOB orthopnea SOB lying down, Cough or paroxysmal nocturnal dyspnea GI GI: Negative nausea, vomiting blood/hematemesis, bright, red blood in stools or black,tarry stools : Negative for hematuria or frequent nighttime urination/ nocturia Musc Musc: Negative for muscle aches/ myalgia Skin Skin: Negative non-healing lesions or rash Neuro Neuro: Negative for dizziness, lightheadedness, near syncope, syncope, orthostatic symptoms or weakness Endo Endo: Negative for fatigue Allergy Allergy/Immunology: Negative for rash Cardiology Exam Const Appearance: cooperative, healthy appearing, comfortable and no acute distress Nutritional Appearance: well nourished and obese Orientation: alert, awake and oriented x3 Head Head: normal to inspection Ears: hearing grossly normal bilaterally Nose: external nose normal Face and Sinus: face symmetric Mouth: oral mucosae normal Eyes General: appearance normal, both eyes and all related structures Eyelids: eyelids normal EOM: EOM intact bilaterally Neck Neck: normal visual inspection and no JVD Carotids: normal carotid upstroke Chest Chest inspection: normal inspection of the chest, symmetric chest movement and normal respiratory effort; Negative cough Auscultation: Bilateral: Clear to Auscultation Cardio Rate: regular rate Rhythm: regular rhythm Heart sounds: S1 normal and S2 normal; Negative rub, gallop or murmur GI GI: normal to inspection and obese Neuro General: patient alert, patient awake, patient oriented x3 and CN's II-XI intact bilaterally Skin Skin: no rashes or lesions noted Extremities Pulses: Normal: Right Posterior Tibial Pulse, Left Posterior Tibial Pulse, Right Radial Pulse and Left Radial Pulse Lower Extremity Edema: None: Bilateral Psych Psychological: normal affect Assessment and Plan Assessment and Plan (1) Atherosclerosis of coronary artery of [place] heart without angina pectoris: Status: Chronic Qualifiers: Coronary Disease-Associated Artery/Lesion type: [place] artery Qualified Code(s): I25.10 - Atherosclerotic heart disease of [place] coronary artery without angina pectoris Comment: [id number] Cx w/ 2.5 x 16 mm Synergy MR DAVID 12/17/17; PTCA/DAVID to proximal PDA in December 2017; Cristino Alberts NP, TAX CREDIT LEASING CONSULTANT-C: Her most recent echocardiogram in June 2019 showed an ejection fraction of 65% stage II diastolic dysfunction. Patient denies any chest pain, arm pain, jaw pain, neck pain, shortness of breath, or fatigue suggestive of angina at this time. We will continue to monitor. We will not make any medication regimen changes and will continue risk factor modification. (2) History of coronary artery stent placement: Status: Chronic Comment: [id number] Cx w/ 2.5 x 16 mm Synergy MR DAVID 12/17/17; PTCA/DAVID to proximal PDA in December 2017; Cristino Alberts NP, TAX CREDIT LEASING CONSULTANT-C: She will continue current medical therapy which includes aspirin, enalapril, propanolol and Crestor. We will continue to monitor. (3) Essential (primary) hypertension: Status: Chronic Cristino Alberts NP, TAX CREDIT LEASING CONSULTANT-C: Her blood pressure in office is elevated. However, her blood pressure at home has been well controlled with average systolic blood pressure approximately 120 mmHg. At this time, she will continue current medical therapy and we will continue to monitor. (4) Pure hypercholesterolemia: Status: Chronic Cristino Alberts NP, TAX CREDIT LEASING CONSULTANT-C: Her most recent lipid panel from July 2020 showed LDL: 104, HDL: 43, triglycerides: 233, and total cholesterol: 187. At last office visit her atorvastatin was discontinued on account of abdominal discomfort and she was started on Crestor therapy. She has not had repeat cholesterol checked since beginning Crestor therapy. She expects that this will be evaluated at upcoming a primary care physician appointment. Based on laboratory test results, will consider advancing Crestor therapy as tolerated. Plan Details Additional Comments: Thank you for allowing us to participate in the patients plan of care, if you have any questions please do not hesitate to call. This note was generated using a voice recognition system and there may be incorrect words, spelling or punctuation that were not noted when reviewing the office note prior to saving. 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 (HALFTONE OPERATOR) Coding Level of Care Code Off vis,est,level 3 Diagnoses Atherosclerosis of coronary artery of [place] heart without angina pectoris I25.10 Coronary Disease-Associated Artery/Lesion type: [place] artery History of coronary artery stent placement Z95.5 Essential (primary) hypertension I10 Pure hypercholesterolemia E78.00 Coding Level of Care Code Off vis,est,level 3 Diagnoses Atherosclerosis of coronary artery of [place] heart without angina pectoris I25.10 Coronary Disease-Associated Artery/Lesion type: [place] artery History of coronary artery stent placement Z95.5 Essential (primary) hypertension I10 Pure hypercholesterolemia E78.00 Supplemental Info Supplemental Information Cardiac intervention from 01/07/2018: CONCLUSIONS Successful PTCA/DAVID of the of proximal PDA with a 2.25 x 12 Promus Synergy; 75%-->0% no dissection. Pt had identical CP/angina during balloon inflation and stent deployment. RECOMMENDATIONS Highly recommend quitting all tobacco products Follow up with primary pharmacy innovation assistant Risk factor modification ASA Indefinitley Plavix for at least 12 months Routine post interventional care Refer for Outpatient Cardiac Rehab Manual sheath removal per protocol Follow up with Dr. Garrett Manual sheath removal due to shallow femoral access. Echocardiogram from 06/30/2019: Interpretation Summary The estimated ejection fraction is 65 %. Stage 2 diastolic dysfunction. Trivial tricuspid valve insufficiency. Right ventricular systolic pressure estimated to be 23 mmHg. Trivial aortic valve insufficiency. Compared to echo report dated , LV function has remained about the same, and RVSP has improved from 39 mmHg to 23 mmHg. Stress echocardiogram from 12/10/2017: Interpretation Summary The estimated ejection fraction is 65 %. Basal anteroseptal: Severely Hypokinetic. Mid-Lateral : Severely Hypokinetic. Mid-anteroseptal : Severly Hypokinetic. Anterior Willow : Mildly hypokinetic Abnormal, adequate, treadmill echocardiogram. Positive for ischemia by echocardiographic criteria. Patient developed mid anterior septal, and mid anterolateral hypokinesis at peak exercise. In addition she developed significant dyspnea on exertion at peak exercise and chest pain post procedure which spontaneously resolved without medical therapy. Appropriate blood pressure response to exercise. Below average exercise capacity for age. Test terminated due to dyspnea. Final LVEF of 45%. Patient will be referred for catheterization. No complications. Labs: No Data to Display Diagnostics: Echocardiogram Pulmonary: No Data to Display 12/19/20 1257 <Electronically signed by Bayron ROLLE> Date Bayron ROLLE Cosigner Signature: Date (if applicable) CC: Dr. Emily Jenkins, DO Emily Jenkins DO Work Phone: Start: 06-20-2020 End: 06-21-2020 Cardiology Visit Report Comments: See Note; NOTES: [facility] [address] [place] [address]. [address] [place] [address] OFFICE VISIT Date of Service: 06/20/20 MR#: [id number] Acct: [id number] Name: MARIPOSA PIZARRO Rep #: [id number] : 1945 Provider: AQUILINO escobar Age/Sex: 74/F Location: [facility] Status: Signed HPI [facility] History of Present Illness Details: MARIPOSA PIZARRO, is a 74 F who presents to the office today for a cardiovascular outpatient follow-up. She has a history of coronary artery disease status post PTCA/DAVID to proximal LCx in November 2017 and PTCA/DAVID to proximal PDA in December 2017, hypertension, hyperlipidemia, and previous smoking history in which she quit after less than half a pack per day for about 20 years on and off. Pt denies chest, arm, jaw, or neck discomfort. His exercise tolerance is stable. Pt denies symptoms of CHF, palpitations, lightheadedness, dizziness, near syncopal or syncopal episodes. Pt denies claudication issues. Pt. denies orthopnea, PND, fever, chills, blood in urine, blood in stool, myalgia, or unexplainable fatigue. She continues with intermittent ankle edema. She states intermittent hemorrhoids. She states stopping her atorvastatin on account of abdominal pain. Intake Vital Signs 06/20/20 Height 5 ft 1 in 06/20/20 Weight: 163 lb 06/20/20 BMI 30.8 06/20/20 BP 140/81 H 06/20/20 Blood Pressure Location Lt brachial 06/20/20 Position Sitting 06/20/20 Respiration 18 06/20/20 Pulse 64 06/20/20 Pulse Source Monitor 06/20/20 Pulse Oximetry (%) 97 Intake Visit Reasons: 6 M FU (GIBRAN PT) Director Independent Required: No Accompanied by: None Is patient in pain?: No Allergies risedronate sodium [From Actonel] Allergy (Verified 06/20/20 13:58) Other fish oil Adverse Reaction (Verified 06/20/20 13:58) skin erruptions propoxyphene HCl [From Darvon] Adverse Reaction (Verified 06/20/20 13:58) Nausea/Vom/Diarrhea SEASONAL Allergy (Uncoded 03/30/19 11:45) Other STRAWBERRIES Allergy (Uncoded 03/30/19 11:45) Hives ONION Adverse Reaction (Uncoded 03/30/19 11:45) Vomiting statin Adverse Reaction (Uncoded 03/30/19 11:45) abdominal pain Medications Lorazepam [Ativan] 0.5 mg PO DAILY PRN PRN 10/18/16 [History Confirmed 12/20/19] aspirin 81 mg tablet,delayed release 81 mg PO QDAY 10/22/17 [History Confirmed 12/20/19] calcium carbonate 500 mg calcium (1,250 mg) tablet 1,000 mg PO QDAY tab 10/23/17 [History Confirmed 06/20/20] cholecalciferol (vitamin D3) 125 mcg (5,000 unit) capsule 5,000 unit PO QDAY 10/23/17 [History Confirmed 06/20/20] guaifenesin 400 mg tablet 400 mg PO Q4H PRN 10/23/17 [History Confirmed 12/20/19] loratadine 10 mg tablet 10 mg PO QDAY 10/23/17 [History Confirmed 12/20/19] magnesium 250 mg tablet 250 mg PO QDAY 10/23/17 [History Confirmed 12/20/19] omeprazole 20 mg capsule,delayed release 20 mg PO QDAY PRN 10/23/17 [History Confirmed 12/20/19] pyridoxine (vitamin B6) 100 mg tablet 100 mg PO QDAY 10/23/17 [History Confirmed 12/20/19] vitamins-lipotropics tablet 1 tab PO QDAY 10/23/17 [History Confirmed 06/20/20] Enalapril Maleate [Vasotec] 1.25 mg PO QDAY 01/21/18 [History Confirmed 06/20/20] fluticasone propionate 50 mcg/actuation nasal spray,suspension 1 spray INTRANASAL QDAY PRN 11/09/18 [History Confirmed 12/20/19] propranolol 60 mg capsule,24 hr,extended release 60 mg PO QDAY #90 cap 11/22/19 [Rx Confirmed 06/20/20] rosuvastatin 5 mg tablet 5 mg PO .3xweek #36 tab 06/20/20 [Rx Confirmed 06/20/20] [facility] Medical History Pure hypercholesterolemia (Chronic) Essential (primary) hypertension (Chronic) Atherosclerosis of coronary artery of [place] heart without angina pectoris (Chronic) Secondary pulmonary arterial hypertension (Acute) Abnormal electrocardiogram (Chronic) Dyspnea (Acute) Chest pain (Acute) Arthritis (Acute) Asthma (Acute) History of hemorrhoids (Acute) Shoulder pain (Acute) Stomach ulcer (Acute) Anxiety (Chronic) Asbestos exposure (Chronic) Benign paroxysmal positional vertigo (Chronic) IBS (irritable bowel syndrome) (Chronic) Surgical History History of coronary artery stent placement (Chronic 12/17/17) H/O eye surgery (Chronic) H/O tubal ligation (Chronic) History of back surgery (Chronic) History of tonsillectomy (Chronic) Family History Mother CVA (cerebral vascular accident) Myocardial infarction, Onset Age: 93 Father Myocardial infarction NE age 60 CAD (coronary artery disease) CABG x 3 Social History (Updated 06/21/20 @ 09:25 by Bayron Alberts NP, TAX CREDIT LEASING CONSULTANT-C) Smoking Status: Former smoker quit date: 06/23/07 pack-years: 12 alcohol intake: current alcohol intake frequency: a few times a month caffeine: Yes Type: carbonated beverages ROS Const Const: Negative for fatigue, weakness, body ache, fever(s) or chills ENT ENT: Negative for dizziness Cardio Chest Pain: No Palpitations: No Edema: Bilateral Muscle aches with walking: None Resp Respiratory: Negative for SOB with activity, SOB at rest, SOB orthopnea SOB lying down or paroxysmal nocturnal dyspnea GI GI: Positive for bright, red blood in stools; negative nausea, vomiting blood/hematemesis or black,tarry stools : Negative for hematuria or frequent nighttime urination/ nocturia Musc Musc: Negative for muscle aches/ myalgia Skin Skin: Negative non-healing lesions or rash Neuro Neuro: Negative for dizziness, lightheadedness, near syncope, syncope, orthostatic symptoms or weakness Endo Endo: Negative for fatigue Allergy Allergy/Immunology: Negative for rash Cardiology Exam Const Appearance: cooperative, healthy appearing, comfortable and no acute distress Nutritional Appearance: well nourished and obese Orientation: alert, awake and oriented x3 Head Head: normal to inspection Ears: hearing grossly normal bilaterally Nose: external nose normal Face and Sinus: face symmetric Mouth: oral mucosae normal Eyes General: appearance normal, both eyes and all related structures Eyelids: eyelids normal EOM: EOM intact bilaterally Neck Neck: normal visual inspection and no JVD Carotids: normal carotid upstroke Chest Chest inspection: normal inspection of the chest, symmetric chest movement and normal respiratory effort; negative cough Auscultation: Bilateral: Clear to Auscultation Cardio Rate: regular rate Rhythm: regular rhythm Heart sounds: S1 normal and S2 normal; negative rub, gallop or murmur GI GI: normal to inspection and obese Neuro General: alert, awake, oriented x3 and CN's II-XI intact bilaterally Skin Skin: no rashes or lesions noted Extremities Pulses: Normal: Right Posterior Tibial Pulse, Left Posterior Tibial Pulse, Right Radial Pulse, Left Radial Pulse Lower Extremity Edema: None: Bilateral Psych Psychological: normal affect Assessment Plan 1. Atherosclerosis of [place] coronary artery of [place] heart without angina pectoris I25.10 [id number] Cx w/ 2.5 x 16 mm Synergy MR DAVID 12/17/17; PTCA/DAVID to proximal PDA in December 2017; Plan Patient denies any chest pain, arm pain, jaw pain, neck pain, shortness of breath, or fatigue suggestive of angina at this time. We will continue to monitor. We will not make any medication regimen changes and will continue risk factor modification. 2. History of coronary artery stent placement Z95.5 [id number] Cx w/ 2.5 x 16 mm Gamaliel MENDOZA DAVID 12/17/17; PTCA/DAVID to proximal PDA in December 2017; Plan She will continue current medical therapy. She will continue risk factor and lifestyle modification. 3. Essential hypertension I10 Plan Her blood pressure is borderline elevated today. However, she states has been better controlled at home. She was asked to monitor this closely at home and contact her office if she notes increasing or consistently elevated blood pressure readings. 4. Pure hypercholesterolemia E78.00 Plan She has discontinued her statin medication on account of abdominal pain. She is agreeable to try Crestor 5 mg p.o. 3 times a week. She is expected to undergo laboratory testing with primary care p samantha in a few months. Based on overall response and laboratory result, further recommendation be made. Plan Detail Other Medications New: rosuvastatin (Crestor) 5 mg PO .3xweek 36 tabs 3RF Additional Comments Thank you for allowing us to participate in the patients plan of care, if you have any questions please do not hesitate to call. This note was generated using a voice recognition system and there may be incorrect words, spelling or punctuation that were not noted when reviewing the office note prior to saving. Follow Up 6 Months (TAX CREDIT LEASING CONSULTANT/PA) Coding Level of Care Code Off vis,est,level 3 Diagnoses Atherosclerosis of [place] coronary artery of [place] heart without angina pectoris I25.10 ?Coronary Disease-Associated Artery/Lesion type: [place] artery History of coronary artery stent placement Z95.5 Essential hypertension I10 Pure hypercholesterolemia E78.00 Coding Level of Care Code Off vis,est,level 3 Diagnoses Atherosclerosis of [place] coronary artery of [place] heart without angina pectoris I25.10 ?Coronary Disease-Associated Artery/Lesion type: [place] artery History of coronary artery stent placement Z95.5 Essential hypertension I10 Pure hypercholesterolemia E78.00 Supplemental Info Supplemental Information Cardiac intervention from 01/07/2018: CONCLUSIONS Successful PTCA/DAVID of the of proximal PDA with a 2.25 x 12 Promus Synergy; 75%-->0% no dissection. Pt had identical CP/angina during balloon inflation and stent deployment. RECOMMENDATIONS Highly recommend quitting all tobacco products Follow up with primary pharmacy innovation assistant Risk factor modification ASA Indefinitley Plavix for at least 12 months Routine post interventional care Refer for Outpatient Cardiac Rehab Manual sheath removal per protocol Follow up with Dr. Garrett Manual sheath removal due to shallow femoral access. Echocardiogram from 06/30/2019: Interpretation Summary The estimated ejection fraction is 65 %. Stage 2 diastolic dysfunction. Trivial tricuspid valve insufficiency. Right ventricular systolic pressure estimated to be 23 mmHg. Trivial aortic valve insufficiency. Compared to echo report dated , LV function has remained about the same, and RVSP has improved from 39 mmHg to 23 mmHg. Stress echocardiogram from 12/10/2017: Interpretation Summary The estimated ejection fraction is 65 %. Basal anteroseptal: Severely Hypokinetic. Mid-Lateral : Severely Hypokinetic. Mid-anteroseptal : Severly Hypokinetic. Anterior Willow : Mildly hypokinetic Abnormal, adequate, treadmill echocardiogram. Positive for ischemia by echocardiographic criteria. Patient developed mid anterior septal, and mid anterolateral hypokinesis at peak exercise. In addition she developed significant dyspnea on exertion at peak exercise and chest pain post procedure which spontaneously resolved without medical therapy. Appropriate blood pressure response to exercise. Below average exercise capacity for age. Test terminated due to dyspnea. Final LVEF of 45%. Patient will be referred for catheterization. No complications. Diagnostics Echocardiogram 06/30/19 06/21/20 0925 <Electronically signed by Bayron DUMONTC> Date Bayron Alberts NP, NP-C Cosigner Signature: Date (if applicable) CC: DO Emily Lancaster Start: 12-20-2019 End: 12-20-2019 Cardiology Visit Report Comments: See Note; NOTES: [facility] [address] [place] [address] OFFICE VISIT Date of Service: 12/20/19 MR#: [id number] Acct: [id number] Name: MARIPOSA PIZARRO Rep #: [id number] : 1945 Provider: Dr. Hank hernandez MD Age/Sex: 74/F Location: [facility] Status: Signed HPI [facility] History of Present Illness Details: Details: MARIPOSA PIZARRO, is a 74 F who presents to the office today for a cardiovascular outpatient follow-up. She has a history of coronary artery disease status post PTCA/DAVID to proximal LCx in November 2017 and PTCA/DAVID to proximal PDA in December 2017, hypertension, hyperlipidemia, and previous smoking history in which she quit after less than half a pack per day for about 20 years on and off. Pt. denies arm, jaw, or neck discomfort. Her exercise tolerance is stable. Pt. denies symptoms of CHF, palpitations, lightheadedness, dizziness, near syncope, or syncopal episodes. Pt. denies claudication issues. Pt. denies orthopnea, PND, fever, chills, blood in urine, blood in stool, myalgia, or unexplainable fatigue. She states improved breathing. She states one episode of brief chest pain while working with dumbbells. This resolve once stopped and has not reoccurred. She states minimal right ankle edema that fluctuates. She denies any chest pain, angina, shortness of breath or dyspnea on exertion. She is taking and tolerating her medicines well. Her most recent echocardiogram dated 11/13/2017 is as follows: The estimated ejection fraction is 65 %. Stage 1 diastolic dysfunction. Trivial tricuspid valve insufficiency. Right ventricular systolic pressure estimated to be 39 mmHg. Mild pulmonary hypertension. Trivial aortic valve insufficiency. There is no aortic stenosis. Compared to echo report dated 10/11/2011, LV function has remained the same; RVSP has increased from 28 to 39 mm Hg. Repeat echocardiogram dated 06/30/2019 is as follows: The estimated ejection fraction is 65 %. Stage 2 diastolic dysfunction. Trivial tricuspid valve insufficiency. Right ventricular systolic pressure estimated to be 23 mmHg. Trivial aortic valve insufficiency. Compared to echo report dated 11/13/, LV function has remained about the same, and RVSP has improved from 39 mmHg to 23 mmHg. Since her last visit, the patient is been exercising 3 times per week at [employer] without any difficulty. She denies any chest pain symptoms or shortness of breath or deterioration of her exercise capacity. S She continues on baby aspirin, propanolol and enalapril. Blood pressure is 126/64, pulse is 72 and regular. Her physical exam is as below. Her lipids as of 01/08/2018 show an LDL of 73 and an HDL of 32. Repeat lipids dated 07/14/2019 show an HDL of 40 and an LDL of 63. Intake Vital Signs 12/20/19 Height 5 ft 1 in 12/20/19 Weight: 158 lb 12/20/19 BMI 29.8 12/20/19 BP 124/60 H 12/20/19 Blood Pressure Location Lt brachial 12/20/19 Position Sitting 12/20/19 Respiration 20 H 12/20/19 Pulse 64 12/20/19 Pulse Source Auscultation 12/20/19 BMI 30.2 Intake Visit Reasons: 6 M FU Director Independent Required: No Is patient in pain?: No Allergies risedronate sodium [From Actonel] Allergy (Verified 03/30/19 11:45) Other fish oil Adverse Reaction (Verified 03/30/19 11:45) skin erruptions propoxyphene HCl [From Darvon] Adverse Reaction (Verified 03/30/19 11:45) Nausea/Vom/Diarrhea SEASONAL Allergy (Uncoded 03/30/19 11:45) Other STRAWBERRIES Allergy (Uncoded 03/30/19 11:45) Hives ONION Adverse Reaction (Uncoded 03/30/19 11:45) Vomiting statin Adverse Reaction (Uncoded 03/30/19 11:45) abdominal pain Medications Lorazepam [Ativan] 0.5 mg PO DAILY PRN PRN 10/18/16 [History Confirmed 12/20/19] aspirin 81 mg tablet,delayed release 81 mg PO QDAY 10/22/17 [History Confirmed 12/20/19] calcium carbonate 500 mg calcium (1,250 mg) tablet 1,000 mg PO QDAY tab 10/23/17 [History Confirmed 12/20/19] cholecalciferol (vitamin D3) 125 mcg (5,000 unit) capsule 5,000 unit PO QDAY 10/23/17 [History Confirmed 12/20/19] guaifenesin 400 mg tablet 400 mg PO Q4H PRN 10/23/17 [History Confirmed 12/20/19] loratadine 10 mg tablet 10 mg PO QDAY 10/23/17 [History Confirmed 12/20/19] magnesium 250 mg tablet 250 mg PO QDAY 10/23/17 [History Confirmed 12/20/19] omeprazole 20 mg capsule,delayed release 20 mg PO QDAY PRN 10/23/17 [History Confirmed 12/20/19] pyridoxine (vitamin B6) 100 mg tablet 100 mg PO QDAY 10/23/17 [History Confirmed 12/20/19] vitamins-lipotropics 1 tab PO QDAY 10/23/17 [History Confirmed 12/20/19] Enalapril Maleate [Vasotec] 1.25 mg PO QDAY 01/21/18 [History Confirmed 12/20/19] fluticasone propionate 50 mcg/actuation nasal spray,suspension 1 spray INTRANASAL QDAY PRN 11/09/18 [History Confirmed 12/20/19] atorvastatin 20 mg tablet 20 mg PO QDAY #30 tab 11/12/19 [Rx Confirmed 12/20/19] propranolol 60 mg capsule,24 hr,extended release 60 mg PO QDAY #90 cap 11/22/19 [Rx Confirmed 12/20/19] [facility] Medical History Pure hypercholesterolemia (Chronic) Essential (primary) hypertension (Chronic) Atherosclerosis of coronary artery of [place] heart without angina pectoris (Chronic) Secondary pulmonary arterial hypertension (Acute) Abnormal electrocardiogram (Chronic) Dyspnea (Acute) Chest pain (Acute) Arthritis (Acute) Asthma (Acute) History of hemorrhoids (Acute) Shoulder pain (Acute) Stomach ulcer (Acute) Anxiety (Chronic) Asbestos exposure (Chronic) Benign paroxysmal positional vertigo (Chronic) IBS (irritable bowel syndrome) (Chronic) Surgical History History of coronary artery stent placement (Chronic 12/17/17) H/O eye surgery (Chronic) H/O tubal ligation (Chronic) History of back surgery (Chronic) History of tonsillectomy (Chronic) Family History Mother CVA (cerebral vascular accident) Myocardial infarction, Onset Age: 93 Father Myocardial infarction NE age 60 CAD (coronary artery disease) CABG x 3 Social History (Updated 12/20/19 @ 14:[address] Hank Garrett MD) Smoking Status: Former smoker quit date: 06/23/07 pack-years: 12 alcohol intake: current alcohol intake frequency: a few times a month caffeine: Yes Type: carbonated beverages ROS Const Const: Positive for other (Feels well.); negative for fatigue, weakness, body ache, fever(s), headache(s), chills, frequent falls, night sweats, daytime sleepiness, difficulty sleeping, excessive sweating, weight gain, weight loss, increased appetite, poor appetite or anorexia Eyes Eyes: Negative for blind spots, loss of peripheral vision, transient loss of vision, blurry vision, change in vision, double vision, floaters, tunnel vision or other ENT ENT: Negative for headache(s), dizziness, hearing loss, tinnitus, Nosebleed/epistaxis, balance problems, post nasal drip, lip swelling, tongue swelling, bleeding gums, hoarseness, neck pain, dry mouth or other Cardio Chest Pain: No Palpitations: No Edema: Bilateral (mild to mid florentino) Muscle aches with walking: None Resp Respiratory: Negative for SOB with activity, SOB at rest, SOB orthopnea SOB lying down, Cough, Coughing up blood/hemoptysis, chest congestion, pain on inspiration, snoring, stridor, wheezing, crackles, paroxysmal nocturnal dyspnea or other GI GI: Negative nausea, vomiting, heartburn, constipation, belching, bloating, cramping, vomiting blood/hematemesis, bright, red blood in stools, black,tarry stools, loose stools, Difficulty Swallowing or other : Negative for hematuria, frequent nighttime urination/ nocturia, erectile dysfunction or abnormal vaginal bleeding Musc Musc: Negative for muscle aches/ myalgia, muscle weakness, joint pain or balance problems Skin Skin: Negative redness, non-healing lesions, rash, unusual bruising, skin ulcer, wounds, jaundice or other Neuro Neuro: Negative for dizziness, lightheadedness, near syncope, syncope, orthostatic symptoms, frequent falls, headache(s), weakness, confusion, memory loss, restless legs, blurry vision, double vision, vertigo, seizures, lack of coordination or other [place] Hematologic/Lymphatic: Negative for easy bleeding, easy bruising, enlarged lymph nodes or other Endo Endo: Negative for fatigue, cold intolerance, heat intolerance, excessive sweating, flushing, increased thirst/drinking, increased hunger, hair loss, hair growth or other Psych Psych: Negative for anxiety, depression, thoughts of harming anyone, thoughts of harming yourself, visual hallucinations, panic attacks or audible hallucinations Allergy Allergy/Immunology: Negative for throat swelling, Negative for tongue swelling, Negative for hives, Negative for rash, Negative for lip swelling Cardiology Exam Const Appearance: cooperative, healthy appearing and no acute distress Nutritional Appearance: well nourished Orientation: alert, oriented x3 and oriented to person Head Head: normal to inspection, normocephalic and atraumatic Nose: external nose normal Face and Sinus: face symmetric Mouth: oral mucosae normal Eyes General: appearance normal, both eyes and all related structures Eyelids: eyelids normal Conjunctivae: conjunctivae normal Pupils: PERRL and normal by confrontation EOM: EOM intact bilaterally Neck Neck: normal visual inspection and full ROM Carotids: normal carotid upstroke Chest Chest inspection: normal inspection of the chest Auscultation: Bilateral: Clear to Auscultation Cardio Palpation: normal PMI Rate: regular rate Rhythm: regular rhythm Heart sounds: S1 normal and S2 normal GI GI: normal to inspection, no hepatosplenomegaly and bowel sounds present Neuro General: alert, awake, oriented x3, CN's II-XI intact bilaterally and moves all extremities Skin Skin: no rashes or lesions noted Extremities Pulses: Normal: Right Femoral Pulse, Left Femoral Pulse, Right Dorsalis Pedis Pulse, Left Dorsalis Pedis Pulse, Right Posterior Tibial Pulse, Left Posterior Tibial Pulse, Right Radial Pulse, Left Radial Pulse Lower Extremity Edema: None: Bilateral Psych Psychological: normal affect Assessment Plan 1. Atherosclerosis of [place] coronary artery of [place] heart without angina pectoris I25.10 [id number] Cx w/ 2.5 x 16 mm Synergy MR DAVID 12/17/17; PTCA/DAVID to proximal PDA in December 2017; Plan 1. Coronary artery disease: No exertional anginal symptoms at this time. No indication for any additional testing. The patient is taking and tolerating her medicines well. Would recommend she continue her baby aspirin, enalapril, and propranolol. I have encouraged her to continue to exercise and in fact increase her exercise and wear MICHAEL hose stockings in place of a diuretic therapy to assist with very minor lower extremity edema. Patient is voiced understanding and agrees to wear MICHAEL hose. If she continues to have edema we can consider a small dose of hydrochlorothiazide Orders Orders: Lipid Profile Today Liver Profile Today 2. Secondary pulmonary arterial hypertension I27.21 Plan 2. Pulmonary pretension: The patient had mild pulmonary pretension by echocardiogram which normalized on her most recent echocardiogram in June 2019. At that time her RVSP was estimated to be 23 mmHg, a decrease from 39 mmHg. This was all without diuretic therapy, and simply with revascularization, diet, exercise and weight loss. Recommend yearly echocardiogram which will take place in June 2020 3. Pure hypercholesterolemia E78.00 Plan 3. Hyperlipidemia: Her LDL and HDL cholesterol are fairly well controlled. Continue Lipitor. 4. Return office in 6 months. This note was generated using a voice recognition system and there may be incorrect words, spelling or punctuation that were not noted when reviewing the office note prior to saving. Orders Orders: Lipid Profile Today Liver Profile Today Plan Detail Follow Up +6M (Kannan) Coding Level of Care Code Off vis,est,level 3 Diagnoses Atherosclerosis of [place] coronary artery of [place] heart without angina pectoris I25.10 ?Coronary Disease-Associated Artery/Lesion type: [place] artery Secondary pulmonary arterial hypertension I27.21 Pure hypercholesterolemia E78.00 Coding Level of Care Code Off vis,est,level 3 Diagnoses Atherosclerosis of [place] coronary artery of [place] heart without angina pectoris I25.10 ?Coronary Disease-Associated Artery/Lesion type: [place] artery Secondary pulmonary arterial hypertension I27.21 Pure hypercholesterolemia E78.00 Supplemental Info Supplemental Information Labs LDL Cholesterol 73 mg/dL (0-130) 01/08/18 HDL Cholesterol 32 mg/dL (40-) L 01/08/18 Triglycerides 283 mg/dL (-199) H 01/08/18 VLDL Cholesterol 57 mg/dL (5-40) H 01/08/18 Diagnostics Electrocardiogram 01/08/18 Echocardiogram 06/30/19 Stress Echocardiogram 12/10/17 Chest X-Ray 10/13/17 12/20/19 3944 <Electronically signed by Hank Garrett MD> Date Hank Garrett MD Cosign Signature: Date (if applicable) CC: DO Emily Lancaster Start: 12-16-2019 End: 12-21-2019 Dexa Bone Density Study Comments: See Note; NOTES: [facility] Imaging Services [address] [place] [address] Dexa Bone Density Study MR#: [id number] Acct: [id number] Name: MARIPOSA PIZARRO Rep #: [id number] : 1945 F 74 From: Arnaldo salazar MD PCP: Dr. Emily Jenkins DO Status: [facility] CL Study: Dexa Bone Density Study Date of Exam: 12/16/19 Exam# [id number] Ordering Dr: Emily Jenkins DO STUDY: DUAL ENERGY X-RAY ABSORPTIOMETRY / DXA REASON FOR EXAM: Female, 74 years old. Age of juma 58. Pat is 161.9# and 60.5 and quot; a loss of 1.5 and quot; per pat. Past hx of smoking. Has taken actonel in the past. Has had steroid injections. Takes 800mg of calcium and Vit D. Exercises moderatly. Hx of L4-L5 fusion. TECHNIQUE: Bone Mineral Density (BMD) measurements of lumbar spine and bilateral hips were obtained. COMPARISON: Comparison is made with prior examination dated August 14, 2017. FINDINGS: Lumbar Spine (L1-L4): g/cm2 (0.909) / T-score (-2.1) / Z-score (-0.4) Findings are suggestive of osteopenia with a moderate fracture risk. Left Femur Total: g/cm2 (0.784) / T-score (-1.8) / Z-score (-0.1) Left Femoral Neck: g/cm2 (0.720) / T-score (-2.3) / Z-score (-0.5) Right Femur Total: g/cm2 (0.818) / T-score (-1.5) / Z-score (0.1) Right Femoral Neck: g/cm2 (0.717) / T-score (-2.3) / Z-score (-0.5) The T-Scores on the most recent prior examination were: Lumbar Spine (L1-L4): There has been worsening of bone density since the previous examination. Left Femur Total: which represents a worsening of 3.9%. Right Femur Total: which represents an improvement of 1.1%. BD/Dexa Bone Density Study IMPRESSION: The patient is considered osteopenic as outlined below according to World Benny Organization (WHO) criteria with a high fracture risk. There has been worsening of bone density since the previous examination. Reference Information: The T-score is the number of standard deviations above or below the standard which is normal for young adults at their peak bone mineral density. The World Health Organization (WHO) interprets the T-scores as follows: Above -1 Normal bone density Between -1 and -2.5 Osteopenia Equal to / or below -2.5 Osteoporosis As a practical clinical guideline, osteopenia may be graded as follows: Mild -1 through -1.5 Moderate -1.6 through -2.0 Severe -2.1 through -2.4 The Z-score is the number of standard deviations above or below age-matched controls. A Z-score of less than -1.5 would be considered abnormal. References: 1. NIH Osteoporosis and Related Bone Diseases http://www.osteo.org 2. International Society for Clinical Densitometry http://www.iscd.org 3. National Osteoporosis Foundation http://www.nof.org Electronically Signed: Arnaldo Magallon, at 12:52 EDT , Service support , CC: Dr. Emily Jenkins DO Gold Leaf Layer: Signed Emily Jenkins Work Phone: Start: 12-16-2019 End: 12-16-2019 SCREEN MAMM (CAD) W/SHERI BILAT Comments: See Note; NOTES: [facility] Imaging Services [address] [place] [address] SCREEN MAMM (CAD) W/SHERI BILAT MR#: [id number] Acct: [id number] Name: MARIPOSA PIZARRO Rep #: [id number] : 1945 F 74 From: Barrington Chavez MD PCP: Dr. Emily Jenkins DO Status: REG CLI Study: SCREEN MAMM (CAD) W/SHERI BILAT Date of Exam: 0 12/16/19 Exam# [id number] Ordering Dr: Emily Jenkins DO MAMMOGRAPHY - BILATERAL SCREENING 3-D TOMOSYNTHESIS REASON FOR EXAM: Female, 74 years old. Routine screening PERTINENT HISTORY: BILAT SCREENING - FAM HX OF MOTHER @ AGE 94 - NO PREV SURG''S - BILAT MOLES MARKED. TECHNIQUE: 2-D mammograms and 3-D Tomosynthesis of the breast (s) were performed. CAD was performed. COMPARISON: 08/14/2017 FINDINGS: The breast composition is composed of scattered fibroglandular density. Scattered benign calcifications are seen. No dense spiculated masses or suspicious microcalcifications are identified. No architectural distortion is identified. There is no skin thickening or retraction. There has been no significant change since the prior study. BI/SCREEN MAMM (CAD) W/SHERI BILAT IMPRESSION: No mammographic signs of malignancy. Routine yearly mammograms recommended. ASSESSMENT CATEGORY: BIRADS Category 2: Benign. A letter regarding these results will be sent to the patient by the facility within 30 days. FOLLOW UP RECOMMENDATION: Yearly follow up mammogram recommended. (A) Approximately 10% of breast cancers are not detected by mammography. A normal mammogram should not delay biopsy of a clinically suspicious abnormality. Electronically Signed: Spenser Chavez MD at 12:17 EDT , Service support , CC: Dr. Emily Jenkins DO Gold Leaf Layer: Signed Emily Jenkins Work Phone: Start: 06-30-2019 End: 06-30-2019 Echocardiogram Complete Comments: See Note; NOTES: [facility] [address] [place] [place] [address] Echo Complete 06/30/19 0854 MR#: [id number] Acct: [id number] Name: MARIPOSA PIZARRO Rep #: [id number] : 1945 73 From: Hank Garrett MD Attending Dr: Hank Garrett MD Status: REG I Ordering Dr: Hank Garrett MD Date: 06/30/19 Location: [facility] Sex: F C Admitted: Reason For Study: PHTN Procedure This was a 2D Doppler, Color Flow transthoracic echocardiogram. Exam performed in department. Left Ventricle Normal size and thickness. The estimated ejection fraction is 65 %. Stage 2 diastolic dysfunction. No regional wall motion abnormalities noted. Right Ventricle Normal size and thickness. Normal systolic function. Atria Normal left atrium. Normal right atrium. Normal atrial septum. Mitral Valve The mitral valve is structurally normal. No prolapse or stenosis seen. Tricuspid Valve Normal tricuspid valve. Trivial tricuspid valve insufficiency. Right ventricular systolic pressure estimated to be 23 mmHg. Aortic Valve Trisinus/trileaflet aortic valve. Moderate focal aortic valve thickening. There is no aortic stenosis. Trivial aortic valve insufficiency. Pulmonic Valve Normal pulmonic valve. Great Vessels Normal aortic root. Normal arch. Normal inferior vena cava. Inferior vena cava collapse with sniff. Pericardium/Pleural No pericardial effusion. MMode/2D Measurements AND Calculations LVIDd: 4.6 cm IVSd: 0.81 cm Ao root diam: 2.4 cm LVIDs: 3.3 cm LVPWd: 1.0 cm RVDd: 2.7 cm FS: 28.8 % LAV(MOD-bp): 51.1 ml LA A4 area: 17.3 cm2 LA dimension(2D): 3.3 cm LAV(MOD-bp) Indexed: 29.7 ml/m2 LAV(MOD-sp2): 48.5 ml LAV(MOD-sp4): 50.4 ml RA A4 area: 11.1 cm2 Time Measurements MV dec time: 0.18 sec Doppler Measurements AND Calculations MV E max layla: 93.0 cm/sec Lat Peak E' Layla: 4.7 cm/sec Med Peak E' Layla: 4.6 cm/sec MV A max layla: 85.7 cm/sec E/E' lat: 19.7 E/E' med: 20.3 MV E/A: 1.1 Ao V2 max: 131.9 cm/sec AI max layla: 388.1 cm/sec LV V1 max: 116.4 cm/sec Ao max P.0 mmHg AI max P.3 mmHg LV V1 max P.4 mmHg Ao V2 mean: 91.9 cm/sec AI dec slope: 220.5 cm/sec2 Ao mean P.7 mmHg AI P1/2t: 515.7 msec Ao V2 VTI: 29.0 cm PA V2 max: 87.0 cm/sec TR max layla: 212.9 cm/sec TR max P.1 mmHg Interpretation Summary The estimated ejection fraction is 65 %. Stage 2 diastolic dysfunction. Trivial tricuspid valve insufficiency. Right ventricular systolic pressure estimated to be 23 mmHg. Trivial aortic valve insufficiency. Compared to echo report dated , LV function has remained about the same, and RVSP has improved from 39 mmHg to 23 mmHg. Ordering Physician: Hank Garrett Referring Physician: Emily Jenkins Performed By: Anita Bond, REILLY, RVT 06/30/19 1433 Date Hank Garrett MD CC: Hank Garrett MD; Emily Jenkins DO Date Dictated: 06/30/19 0854 Date Transcribed: 06/30/19 143 [place] Layer: Signed Hank Garrett Work Phone: Start: 05-27-2019 End: 05-27-2019 Cardiology Visit Report Comments: See Note; NOTES: [facility] [address] [place] [address] OFFICE VISIT Date of Service: 05/27/19 MR#: [id number] Acct: [id number] Name: MARIPOSA PIZARRO #: [id number] : 1945 Provider: Hank Garrett MD Age/Sex: 73/F Location: [facility] Status: Signed [facility] History of Present Illness Details: Details: MARIPOSA PIZARRO, is a 73 F who presents to the office today for a cardiovascular outpatient follow-up. She has a history of coronary artery disease status post PTCA/DAVID to proximal LCx in November 2017 and PTCA/DAVID to proximal PDA in December 2017, hypertension, hyperlipidemia, and previous smoking history in which she quit after less than half a pack per day for about 20 years on and off. Pt. denies arm, jaw, or neck discomfort. Her exercise tolerance is stable. Pt. denies symptoms of CHF, palpitations, lightheadedness, dizziness, near syncope, or syncopal episodes. Pt. denies claudication issues. Pt. denies orthopnea, PND, fever, chills, blood in urine, blood in stool, myalgia, or unexplainable fatigue. She states improved breathing. She states one episode of brief chest pain while working with dumbbells. This resolve once stopped and has not reoccurred. She states minimal right ankle edema that fluctuates. She states her after her PCI in November 2017, she states feeling more emotional than usual. She believes this is related to her propranolol, but she reports it is much better. She denies any chest pain, angina, shortness of breath or dyspnea on exertion. She is taking and tolerating her medicines well. Her most recent echocardiogram dated 11/13/2017 is as follows: The estimated ejection fraction is 65 %. Stage 1 diastolic dysfunction. Trivial tricuspid valve insufficiency. Right ventricular systolic pressure estimated to be 39 mmHg. Mild pulmonary hypertension. Trivial aortic valve insufficiency. There is no aortic stenosis. Compared to echo report dated 10/11/2011, LV function has remained the same; RVSP has increased from 28 to 39 mm Hg. Since her last visit, the patient is been exercising 3 times per week at [employer] without any difficulty. She denies any chest pain symptoms or shortness of breath or deterioration of her exercise capacity. She discontinued her Plavix as she was over 1-1/2 years after her stents and had some nosebleeds. She continues on baby aspirin, propanolol and enalapril. Blood pressure is 126/64, pulse is 72 and regular. Her physical exam is as below. Her lipids as of 01/08/2018 show an LDL of 73 and an HDL of 32 repeat lipids are pending. Intake Vital Signs05/27/19 Height 5 ft 1 in 05/27/19 Weight: 160 lb 05/27/19 Body Mass Index (BMI) 30.2 05/27/19 Blood Pressure 148/70 H Intake Visit Reasons: 6 M Director Independent Required: No Is patient in pain?: No Allergies risedronate sodium [From Actonel] Allergy (Verified 03/30/19 11:45) Other fish oil Adverse Reaction (Verified 03/30/19 11:45) skin erruptions propoxyphene HCl [From Darvon] Adverse Reaction (Verified 03/30/19 11:45) Nausea/Vom/Diarrhea SEASONAL Allergy (Uncoded 03/30/19 11:45) Other STRAWBERRIES Allergy (Uncoded 03/30/19 11:45) Hives ONION Adverse Reaction (Uncoded 03/30/19 11:45) Vomiting statin Adverse Reaction (Uncoded 03/30/19 11:45) abdominal pain Medications Lorazepam [Ativan] 0.5 mg PO DAILY PRN PRN 10/18/16 [History Confirmed 05/27/19] aspirin 81 mg tablet,delayed release 81 mg PO QDAY 10/22/17 [History Confirmed 05/27/19] calcium carbonate 500 mg calcium (1,250 mg) tablet 1,000 mg PO QDAY tab 10/23/17 [History Confirmed 05/27/19] cholecalciferol (vitamin D3) 5,000 unit capsule 5,000 unit PO QDAY 10/23/17 [History Confirmed 05/27/19] guaifenesin 400 mg tablet 400 mg PO Q4H PRN 10/23/17 [History Confirmed 05/27/19] loratadine 10 mg tablet 10 mg PO QDAY 10/23/17 [History Confirmed 05/27/19] magnesium 250 mg tablet 250 mg PO QDAY 10/23/17 [History Confirmed 05/27/19] omeprazole 20 mg capsule,delayed release 20 mg PO QDAY PRN 10/23/17 [History Confirmed 05/27/19] pyridoxine (vitamin B6) 100 mg tablet 100 mg PO QDAY 10/23/17 [History Confirmed 05/27/19] vitamins-lipotropics tablet 1 tab PO QDAY 10/23/17 [History Confirmed 05/27/19] Enalapril Maleate [Vasotec] 1.25 mg PO QDAY 01/21/18 [History Confirmed 05/27/19] atorvastatin 20 mg tablet 20 mg PO QDAY #30 tab 11/09/18 [Rx Confirmed 05/27/19] fluticasone propionate 50 mcg/actuation nasal spray,suspension 1 spray INTRANASAL QDAY PRN 11/09/18 [History Confirmed 05/27/19] propranolol ER 60 mg capsule,24 hr,extended release 60 mg PO QDAY #30 cap 11/09/18 [Rx Confirmed 05/27/19] [facility] Medical History Pure hypercholesterolemia (Chronic) Essential (primary) hypertension (Chronic) Atherosclerosis of coronary artery of [place] heart without angina pectoris (Chronic) Secondary pulmonary arterial hypertension (Acute) Abnormal electrocardiogram (Chronic) Dyspnea (Acute) Chest pain (Acute) Arthritis (Acute) Asthma (Acute) History of hemorrhoids (Acute) Shoulder pain (Acute) Stomach ulcer (Acute) Anxiety (Chronic) Asbestos exposure (Chronic) Benign paroxysmal positional vertigo (Chronic) IBS (irritable bowel syndrome) (Chronic) Surgical History History of coronary artery stent placement (Chronic 12/17/17) H/O eye surgery (Chronic) H/O tubal ligation (Chronic) History of back surgery (Chronic) History of tonsillectomy (Chronic) Family History Mother CVA (cerebral vascular accident) Myocardial infarction, Onset Age: 93 Father Myocardial infarction NE age 60 CAD (coronary artery disease) CABG x 3 Social History (Updated 05/27/19 @ 10:29 by Hank Garrett MD) Smoking Status: Former smoker quit date: 06/23/07 pack-years: 12 alcohol intake: current alcohol intake frequency: a few times a month caffeine: Yes Type: carbonated beverages ROS Const Const: Positive for other (Feels great); negative for fatigue, weakness, body ache, fever(s), headache(s), chills, frequent falls, night sweats, daytime sleepiness, difficulty sleeping, excessive sweating, weight gain, weight loss, increased appetite, poor appetite or anorexia Eyes Eyes: Negative for blind spots, loss of peripheral vision, transient loss of vision, blurry vision, change in vision, double vision, floaters, tunnel vision or other ENT ENT: Negative for headache(s), dizziness, hearing loss, tinnitus, Nosebleed/epistaxis, balance problems, post nasal drip, lip swelling, tongue swelling, bleeding gums, hoarseness, neck pain, dry mouth or other Cardio Chest Pain: No Palpitations: No Edema: Bilateral (Bilateral mild in feet if eats salt) Muscle aches with walking: None Resp Respiratory: Negative for SOB with activity, SOB at rest, SOB orthopnea\\SOB lying down, Cough, Coughing up blood/hemoptysis, chest congestion, pain on inspiration, snoring, stridor, wheezing, crackles, paroxysmal nocturnal dyspnea or other GI GI: Negative nausea, vomiting, heartburn, constipation, belching, bloating, cramping, vomiting blood/hematemesis, bright, red blood in stools, black,tarry stools, loose stools, Difficulty Swallowing or other : Negative for hematuria, frequent nighttime urination/ nocturia, erectile dysfunction or abnormal vaginal bleeding Musc Musc: Negative for muscle aches/ myalgia, muscle weakness, joint pain or balance problems Skin Skin: Negative redness, non-healing lesions, rash, unusual bruising, skin ulcer, wounds, jaundice or other Neuro Neuro: Negative for dizziness, lightheadedness, near syncope, syncope, orthostatic symptoms, frequent falls, headache(s), weakness, confusion, memory loss, restless legs, blurry vision, double vision, vertigo, seizures, lack of coordination or other [place] Hematologic/Lymphatic: Negative for easy bleeding, easy bruising, enlarged lymph nodes or other Endo Endo: Negative for fatigue, cold intolerance, heat intolerance, excessive sweating, flushing, increased thirst/drinking, increased hunger, hair loss, hair growth or other Psych Psych: Negative for anxiety, depression, thoughts of harming anyone, thoughts of harming yourself, visual hallucinations, panic attacks or audible hallucinations Allergy Allergy/Immunology: Negative for throat swelling, Negative for tongue swelling, Negative for hives, Negative for rash, Negative for lip swelling Cardiology Exam Const Appearance: cooperative, healthy appearing and no acute distress Nutritional Appearance: well nourished Orientation: alert, oriented x3 and oriented to person Head Head: normal to inspection, normocephalic and atraumatic Nose: external nose normal Face and Sinus: face symmetric Mouth: oral mucosae normal Eyes General: appearance normal, both eyes and all related structures Eyelids: eyelids normal Conjunctivae: conjunctivae normal Pupils: PERRL and normal by confrontation EOM: EOM intact bilaterally Neck Neck: normal visual inspection and full ROM Carotids: normal carotid upstroke Chest Chest inspection: normal inspection of the chest Auscultation: Bilateral: Clear to Auscultation Cardio Palpation: normal PMI Rate: regular rate Rhythm: regular rhythm Heart sounds: S1 normal and S2 normal GI GI: normal to inspection, no hepatosplenomegaly and bowel sounds present Neuro General: alert, awake, oriented x3, CN's II-XI intact bilaterally and moves all extremities Skin Skin: no rashes or lesions noted Extremities Pulses: Normal: Right Femoral Pulse, Left Femoral Pulse, Right Dorsalis Pedis Pulse, Left Dorsalis Pedis Pulse, Right Posterior Tibial Pulse, Left Posterior Tibial Pulse, Right Radial Pulse, Left Radial Pulse Lower Extremity Edema: None: Bilateral Psych Psychological: normal affect Assessment AND Plan 1. Atherosclerosis of [place] coronary artery of [place] heart without angina pectoris I25.10 [id number] Cx w/ 2.5 x 16 mm Synergy MR DAVID 12/17/17; PTCA/DAVID to proximal PDA in December 2017; Plan 1. Coronary artery disease: No exertional anginal symptoms at this time. No indication for any additional stress testing. Recommend that she maintain on baby aspirin, enalapril, and propanolol. Orders Orders: 2. Pure hypercholesterolemia E78.00 Plan 2. Hyperlipidemia: Her LDL and HDL cholesterol are fairly well-controlled. Repeat lipids are pending. Continue Lipitor. Orders Orders: 3. Secondary pulmonary arterial hypertension I27.21 Plan 3. Pulmonary pretension: The patient had a significant increase in her pulmonary pressures by echocardiogram in October 2017 compared to August 2011. Recommend repeat echocardiogram for surveillance of her pulmonary pressures. The patient quit smoking many years ago, and continues exercising without difficulty. 4. Return office in 6 months. This note was generated using a voice recognition system and there may be incorrect words, spelling or punctuation that were not noted when reviewing the office note prior to saving. Plan Detail Follow Up +6M ([place]) Coding Level of Care Code Off vis,est,level 3 Diagnoses Atherosclerosis of [place] coronary artery of [place] heart without angina pectoris I25.10 Coronary Disease-Associated Artery/Lesion type: [place] artery Pure hypercholesterolemia E78.00 Secondary pulmonary arterial hypertension I27.21 Coding Level of Care Code Off vis,est,level 3 Diagnoses Atherosclerosis of [place] coronary artery of [place] heart without angina pectoris I25.10 Coronary Disease-Associated Artery/Lesion type: [place] artery Pure hypercholesterolemia E78.00 Secondary pulmonary arterial hypertension I27.21 Supplemental Info Supplemental Information Labs LDL Cholesterol 73 mg/dL (0-130) 01/08/18 HDL Cholesterol 32 mg/dL (40-) L 01/08/18 Triglycerides 283 mg/dL (-199) H 01/08/18 VLDL Cholesterol 57 mg/dL (5-40) H 01/08/18 Diagnostics Electrocardiogram 01/08/18 Echocardiogram 11/13/17 Stress Echocardiogram 12/10/17 Chest X-Ray 10/13/17 05/27/19 1029 <Electronically signed by Hank Garrett MD> Date Hank Garrett MD Cosigner Signature: Date (if applicable) CC: Emily Jenkins DO Emily Jenkins Start: 03-05-2019 End: 03-05-2019 BMI documented as above normal parameters - follow-up documented Bayron Felton MD Work Phone: Start: 03-05-2019 End: 03-05-2019 Documentation of current medications Bayron Felton MD Work Phone: Start: 03-05-2019 End: 03-05-2019 Injection - betamethasone acetate 3 mg and betamethasone sodium phosphate 3 mg Bayron Felton MD Work Phone: Start: 03-05-2019 End: 03-05-2019 Injection 1 tendon sheath/ligament aponeurosis Bayron Felton MD Work Phone: Start: 03-05-2019 End: 03-05-2019 Injection single/regional ehs manager trigger point 1/2 muscles Bayron Felton MD Work Phone: Start: 03-05-2019 End: 03-05-2019 Pain assessment documented as positive - follow-up documented Bayron Felton MD Work Phone: Start: 03-05-2019 End: 03-05-2019 Tobacco non-user Bayron Felton MD Work Phone: Start: 11-09-2018 End: 11-09-2018 Cardiology Visit Report Comments: See Note; NOTES: [facility] [address] [place] [address] OFFICE VISIT Date of Service: 11/09/18 MR#: [id number] Acct: [id number] Name: MARIPOSA PIZARRO Rep #: [id number] : 1945 Provider: Hank Garrett MD Age/Sex: 73/F Location: [facility] Status: Signed HPI HPI History of Present Illness Details: HPI Details: MARIPOSA PIZARRO, is a 72 F who presents to the office today for a cardiovascular outpatient follow-up. She has a history of coronary artery disease status post PTCA/DAVID to proximal LCx in November 2017 and PTCA/DAVID to proximal PDA in December 2017, hypertension, hyperlipidemia, and previous smoking history in which she quit after less than half a pack per day for about 20 years on and off. Pt. denies arm, jaw, or neck discomfort. Her exercise tolerance is stable. Pt. denies symptoms of CHF, palpitations, lightheadedness, dizziness, near syncope, or syncopal episodes. Pt. denies claudication issues. Pt. denies orthopnea, PND, fever, chills, blood in urine, blood in stool, myalgia, or unexplainable fatigue. She states improved breathing. She states one episode of brief chest pain while working with dumbbells. This resolve once stopped and has not reoccurred. She states minimal right ankle edema that fluctuates. She states her after her PCI in November 2017, she states feeling more emotional than usual. She believes this is related to her propranolol, but she reports it is much better. She denies any chest pain, angina, shortness of breath or dyspnea on exertion. She is taking and tolerating her medicines well per Blood pressure is 126/64, pulse is 72 and regular. Her physical exam is as below. Her lipids as of 01/08/2018 show an LDL of 73 and an HDL of 32 repeat lipids are pending. Intake Vital Signs11/09/18 Height 5 ft 1 in 11/09/18 Weight: 160 lb 11/09/18 Body Mass Index (BMI) 30.2 11/09/18 Blood Pressure 126/64 H Intake Visit Reasons: 6 M FU Director Independent Required: No Is patient in pain?: No Allergies risedronate sodium [From Actonel] Allergy (Verified 11/09/18 11:43) Other fish oil Adverse Reaction (Verified 11/09/18 11:43) skin erruptions propoxyphene HCl [From Darvon] Adverse Reaction (Verified 11/09/18 11:43) Nausea/Vom/Diarrhea SEASONAL Allergy (Uncoded 01/07/18 08:11) Other STRAWBERRIES Allergy (Uncoded 01/07/18 08:11) Hives ONION Adverse Reaction (Uncoded 01/07/18 08:11) Vomiting statin Adverse Reaction (Uncoded 01/07/18 08:11) abdominal pain Medications Lorazepam [Ativan] 0.5 mg PO DAILY PRN PRN 10/18/16 [History Confirmed 11/09/18] aspirin 81 mg tablet,delayed release 81 mg PO QDAY 10/22/17 [History Confirmed 11/09/18] calcium carbonate 500 mg calcium (1,250 mg) tablet 1,000 mg PO QDAY tab 10/23/17 [History Confirmed 11/09/18] cholecalciferol (vitamin D3) 5,000 unit capsule 5,000 unit PO QDAY 10/23/17 [History Confirmed 11/09/18] guaifenesin 400 mg tablet 400 mg PO Q4H PRN 10/23/17 [History Confirmed 11/09/18] loratadine 10 mg tablet 10 mg PO QDAY 10/23/17 [History Confirmed 11/09/18] magnesium 250 mg tablet 250 mg PO QDAY 10/23/17 [History Confirmed 11/09/18] omeprazole 20 mg capsule,delayed release 20 mg PO QDAY PRN 10/23/17 [History Confirmed 11/09/18] pyridoxine (vitamin B6) 100 mg tablet 100 mg PO QDAY 10/23/17 [History Confirmed 11/09/18] vitamins-lipotropics tablet 1 tab PO QDAY 10/23/17 [History Confirmed 11/09/18] Enalapril Maleate [Vasotec] 1.25 mg PO QDAY 01/21/18 [History Confirmed 11/09/18] atorvastatin 20 mg tablet 20 mg PO QDAY #30 tab 11/09/18 [Rx Confirmed 11/09/18] clopidogrel 75 mg tablet 75 mg PO QDAY #30 tab 11/09/18 [Rx Confirmed 11/09/18] fluticasone propionate 50 mcg/actuation nasal spray,suspension 1 spray INTRANASAL QDAY PRN 11/09/18 [History Confirmed 11/09/18] propranolol ER 60 mg capsule,24 hr,extended release 60 mg PO QDAY #30 cap 11/09/18 [Rx Confirmed 11/09/18] [facility] Medical History Pure hypercholesterolemia (Chronic) Essential (primary) hypertension (Chronic) Atherosclerosis of coronary artery of [place] heart without angina pectoris (Chronic) Secondary pulmonary arterial hypertension (Acute) Abnormal electrocardiogram (Chronic) Dyspnea (Acute) Chest pain (Acute) Anxiety (Chronic) Asbestos exposure (Chronic) Benign paroxysmal positional vertigo (Chronic) IBS (irritable bowel syndrome) (Chronic) Surgical History History of coronary artery stent placement (Chronic 12/17/17) H/O eye surgery (Chronic) H/O tubal ligation (Chronic) History of back surgery (Chronic) History of tonsillectomy (Chronic) Family History Mother CVA (cerebral vascular accident) Myocardial infarction, Onset Age: 93 Father Myocardial infarction NE age 60 CAD (coronary artery disease) CABG x 3 Social History Smoking Status: Former smoker quit date: 06/23/07 pack-years: 12 alcohol intake: current alcohol intake frequency: a few times a month caffeine: Yes Type: carbonated beverages ROS Const Const: Positive for other (Feels well); negative for fatigue, weakness, body ache, fever(s), headache(s), chills, frequent falls, night sweats, daytime sleepiness, difficulty sleeping, excessive sweating, weight gain, weight loss, increased appetite, poor appetite or anorexia Eyes Eyes: Negative for blind spots, loss of peripheral vision, transient loss of vision, blurry vision, change in vision, double vision, floaters, tunnel vision or other ENT ENT: Negative for headache(s), dizziness, hearing loss, tinnitus, Nosebleed/epistaxis, balance problems, post nasal drip, lip swelling, tongue swelling, bleeding gums, hoarseness, neck pain, dry mouth or other Cardio Chest Pain: No Palpitations: No Edema: None Muscle aches with walking: None Resp Respiratory: Negative for SOB with activity, SOB at rest, SOB orthopnea\\SOB lying down, Cough, Coughing up blood/hemoptysis, chest congestion, pain on inspiration, snoring, stridor, wheezing, crackles, paroxysmal nocturnal dyspnea or other GI GI: Negative nausea, vomiting, heartburn, constipation, belching, bloating, cramping, vomiting blood/hematemesis, bright, red blood in stools, black,tarry stools, loose stools, Difficulty Swallowing or other : Negative for hematuria, frequent nighttime urination/ nocturia, erectile dysfunction or abnormal vaginal bleeding Musc Musc: Negative for muscle aches/ myalgia, muscle weakness, joint pain or balance problems Skin Skin: Negative redness, non-healing lesions, rash, unusual bruising, skin ulcer, wounds, jaundice or other Neuro Neuro: Negative for dizziness, lightheadedness, near syncope, syncope, orthostatic symptoms, frequent falls, headache(s), weakness, confusion, memory loss, restless legs, blurry vision, double vision, vertigo, seizures, lack of coordination or other [place] Hematologic/Lymphatic: Negative for easy bleeding, easy bruising, enlarged lymph nodes or other Endo Endo: Negative for fatigue, cold intolerance, heat intolerance, excessive sweating, flushing, increased thirst/drinking, increased hunger, hair loss, hair growth or other Psych Psych: Negative for anxiety, depression, thoughts of harming anyone, thoughts of harming yourself, visual hallucinations, panic attacks or audible hallucinations Allergy Allergy/Immunology: Negative for throat swelling, Negative for tongue swelling, Negative for hives, Negative for rash, Negative for lip swelling Cardiology Exam Const Appearance: cooperative, healthy appearing and no acute distress Nutritional Appearance: well nourished Orientation: alert, oriented x3 and oriented to person Head Head: normal to inspection, normocephalic and atraumatic Nose: external nose normal Face and Sinus: face symmetric Mouth: oral mucosae normal Eyes General: appearance normal, both eyes and all related structures Eyelids: eyelids normal Conjunctivae: conjunctivae normal Pupils: PERRL and normal by confrontation EOM: EOM intact bilaterally Neck Neck: normal visual inspection and full ROM Carotids: normal carotid upstroke Chest Chest inspection: normal inspection of the chest Auscultation: Bilateral: Clear to Auscultation Cardio Palpation: normal PMI Rate: regular rate Rhythm: regular rhythm Heart sounds: S1 normal and S2 normal GI GI: normal to inspection, no hepatosplenomegaly and bowel sounds present Neuro General: alert, awake, oriented x3, CN's II-XI intact bilaterally and moves all extremities Skin Skin: no rashes or lesions noted Extremities Pulses: Normal: Right Femoral Pulse, Left Femoral Pulse, Right Dorsalis Pedis Pulse, Left Dorsalis Pedis Pulse, Right Posterior Tibial Pulse, Left Posterior Tibial Pulse, Right Radial Pulse, Left Radial Pulse Lower Extremity Edema: None: Bilateral Psych Psychological: normal affect Assessment AND Plan 1. Atherosclerosis of [place] coronary artery of [place] heart without angina pectoris I25.10 [id number] Cx w/ 2.5 x 16 mm Synergy MR DAVID 12/17/17; PTCA/DAVID to proximal PDA in December 2017; Plan 1. Coronary artery disease: No exertional anginal symptoms at this time. No indication for any additional testing. She is taking and tolerating her medicines well and ambulating well. Her emotional fluctuations have markedly improved since her last visit, and she continues on propranolol without any difficulty. I recommended that she continue her current medications of baby aspirin, Plavix, enalapril and propranolol. 2. Pure hypercholesterolemia E78.00 Plan 2. Hyperlipidemia: We are awaiting a repeat lipid profile. Will make adjustments to her Lipitor if indicated. Continue Lipitor. 3. Return office in 6 months. This note was generated using a voice recognition system and there may be incorrect words, spelling or punctuation that were not noted when reviewing the office note prior to saving. Plan Detail Other Medications Changed: From: clopidogrel Take four tablets today and then one tab75 mg PO QDAY 30 tabs 11RF let daily Refilled: Follow Up +6M ([place]) Coding Level of Care Code Off vis,est,level 3 Diagnoses Atherosclerosis of [place] coronary artery of [place] heart without angina pectoris I25.10 Coronary Disease-Associated Artery/Lesion type: [place] artery Pure hypercholesterolemia E78.00 Coding Level of Care Code Off vis,est,level 3 Diagnoses Atherosclerosis of [place] coronary artery of [place] heart without angina pectoris I25.10 Coronary Disease-Associated Artery/Lesion type: [place] artery Pure hypercholesterolemia E78.00 Supplemental Info Supplemental Information Labs LDL Cholesterol 73 mg/dL (0-130) 01/08/18 HDL Cholesterol 32 mg/dL (40-) L 01/08/18 Triglycerides 283 mg/dL (-199) H 01/08/18 VLDL Cholesterol 57 mg/dL (5-40) H 01/08/18 Diagnostics Electrocardiogram 01/08/18 Echocardiogram 11/13/17 Stress Echocardiogram 12/10/17 Chest X-Ray 10/13/17 11/09/18 1155 <Electronically signed by Hank Garrett MD> Date Hank Garrett MD Cosigner Signature: Date (if applicable) CC: Emily Osborne Start: 09-03-2018 End: 09-03-2018 Cardiology Visit Report Comments: See Note; NOTES: [facility] [place] [address] OFFICE VISIT Date of Service: 04/27/18 MR#: [id number] Acct: [id number] Name: MARIPOSA PIZARRO Rep #: [id number] : 1945 Provider: FRANCISCO Alberts Age/Sex: 72/F Location: [facility] Status: Signed HPI HPI Details: MARIPOSA PIZARRO, is a 72 F who presents to the office today for a cardiovascular outpatient follow-up. She has a history of coronary artery disease status post PTCA/DAVID to proximal LCx in November 2017 and PTCA/DAVID to proximal PDA in December 2017, hypertension, hyperlipidemia, and previous smoking history in which she quit after less than half a pack per day for about 20 years on and off. Pt. denies chest, arm, jaw, or neck discomfort. Her exercise tolerance is stable. Pt. denies symptoms of CHF, palpitations, lightheadedness, dizziness, near syncope, or syncopal episodes. Pt. denies edema or claudication issues. Pt. denies orthopnea, PND, fever, chills, blood in urine, blood in stool, myalgia, or unexplainable fatigue. She states improved breathing. Intake Vital Signs04/27/18 Height 5 ft 1 in 04/27/18 Weight: 158 lb 04/27/18 Body Mass Index (BMI) 29.8 04/27/18 Blood Pressure 138/78 H 04/27/18 Blood Pressure Location Lt brachial Intake Visit Reasons: 6 M FU Director Independent Required: No Accompanied by: None Is patient in pain?: No Allergies risedronate sodium [From Actonel] Allergy (Verified 04/27/18 10:38) Other fish oil Adverse Reaction (Verified 04/27/18 10:38) skin erruptions propoxyphene HCl [From Darvon] Adverse Reaction (Verified 04/27/18 10:38) Nausea/Vom/Diarrhea SEASONAL Allergy (Uncoded 01/07/18 08:11) Other STRAWBERRIES Allergy (Uncoded 01/07/18 08:11) Hives ONION Adverse Reaction (Uncoded 01/07/18 08:11) Vomiting statin Adverse Reaction (Uncoded 01/07/18 08:11) abdominal pain Medications Lorazepam [Ativan] 0.5 mg PO DAILY PRN PRN 10/18/16 [History Confirmed 04/27/18] aspirin 81 mg tablet,delayed release 81 mg PO QDAY 10/22/17 [History Confirmed 04/27/18] fluticasone 50 mcg/actuation nasal spray,suspension 1 spray INTRANASAL QDAY 10/22/17 [History Confirmed 04/27/18] calcium carbonate 500 mg calcium (1,250 mg) tablet 1,000 mg PO QDAY tab 10/23/17 [History Confirmed 04/27/18] chlorpheniramine-phenyleph- DM-ASA 2 mg-7.8 mg-10 mg-325 mg effervs tab 1 tab PO DAILY 10/23/17 [History Confirmed 04/27/18] cholecalciferol (vitamin D3) 5,000 unit capsule 5,000 unit PO QDAY 10/23/17 [History Confirmed 04/27/18] guaifenesin 400 mg tablet 400 mg PO Q4H PRN 10/23/17 [History Confirmed 04/27/18] loratadine 10 mg tablet 10 mg PO QDAY 10/23/17 [History Confirmed 04/27/18] magnesium 250 mg tablet 250 mg PO QDAY 10/23/17 [History Confirmed 04/27/18] omeprazole 20 mg capsule,delayed release 20 mg PO QDAY PRN 10/23/17 [History Confirmed 04/27/18] pyridoxine (vitamin B6) 100 mg tablet 100 mg PO QDAY 10/23/17 [History Confirmed 04/27/18] vitamins-lipotropics tablet 1 tab PO QDAY 10/23/17 [History Confirmed 04/27/18] propranolol ER 60 mg capsule,24 hr,extended release 60 mg PO QDAY #30 cap 12/18/17 [Rx Confirmed 04/27/18] atorvastatin 20 mg tablet 20 mg PO QDAY #30 tab 01/09/18 [Rx Confirmed 04/27/18] clopidogrel 75 mg tablet 75 mg PO QDAY #30 tab 01/09/18 [Rx Confirmed 04/27/18] Enalapril Maleate [Vasotec] 1.25 mg PO QDAY 01/21/18 [History Confirmed 04/27/18] PFSH Medical History Pure hypercholesterolemia (Chronic) Essential (primary) hypertension (Chronic) Atherosclerosis of coronary artery of [place] heart without angina pectoris (Chronic) Secondary pulmonary arterial hypertension (Acute) Abnormal electrocardiogram (Chronic) Dyspnea (Acute) Chest pain (Acute) Anxiety (Chronic) Asbestos exposure (Chronic) Benign paroxysmal positional vertigo (Chronic) IBS (irritable bowel syndrome) (Chronic) Surgical History History of coronary artery stent placement (Chronic 12/17/17) H/O eye surgery (Chronic) H/O tubal ligation (Chronic) History of back surgery (Chronic) History of tonsillectomy (Chronic) Family History Mother CVA (cerebral vascular accident) Myocardial infarction, Onset Age: 93 Father Myocardial infarction NE age 60 CAD (coronary artery disease) CABG x 3 Social History Smoking Status: Former smoker quit date: 06/23/07 pack-years: 12 alcohol intake: current alcohol intake frequency: a few times a month caffeine: Yes Type: carbonated beverages ROS Const Const: Negative for weakness, body ache, fever(s), chills or fatigue ENT ENT: Negative for dizziness Cardio Chest Pain: No Palpitations: No Edema: None Muscle aches with walking: None Resp Respiratory: Negative for SOB with activity, SOB at rest, SOB orthopnea\\SOB lying down or paroxysmal nocturnal dyspnea GI GI: Negative nausea, black,tarry stools, bright, red blood in stools or vomiting blood/hematemesis : Negative for hematuria or frequent nighttime urination/ nocturia Musc Musc: Negative for muscle aches/ myalgia Skin Skin: Negative non-healing lesions or rash Neuro Neuro: Negative for weakness or dizziness Endo Endo: Negative for fatigue Allergy Allergy/Immunology: Negative for rash Cardiology Exam Const Appearance: cooperative, healthy appearing, comfortable and no acute distress Nutritional Appearance: average body habitus and well nourished Orientation: alert, awake and oriented x3 Head Head: normal to inspection Ears: hearing grossly normal bilaterally Nose: external nose normal Face and Sinus: face symmetric Mouth: oral mucosae normal Eyes General: appearance normal, both eyes and all related structures Eyelids: eyelids normal EOM: EOM intact bilaterally Neck Neck: no JVD and normal visual inspection Carotids: normal carotid upstroke Chest Chest inspection: normal inspection of the chest, normal respiratory effort and symmetric chest movement; negative cough Auscultation: Bilateral: Clear to Auscultation Cardio Rate: regular rate Rhythm: regular rhythm Heart sounds: S1 normal, S2 normal and murmur; negative rub or gallop Murmur: Grade 2/6, LLSB and crescendo-decrescendo GI GI: normal to inspection Neuro General: alert, awake, oriented x3 and CN's II-XI intact bilaterally Skin Skin: no rashes or lesions noted and other Right groin is soft and without bruising. There is no bruit noted. Extremities Pulses: Normal: Right Posterior Tibial Pulse, Left Posterior Tibial Pulse, Right Radial Pulse, Left Radial Pulse Lower Extremity Edema: None: Bilateral Psych Psychological: normal affect Supplemental Info Echocardiogram from October 2017 showed estimated ejection fraction of 65%, stage I diastolic dysfunction, trivial tricuspid valve insufficiency, RVSP of 39 mmHg, mild pulmonary hypertension, trivial aortic valve insufficiency, no aortic stenosis, and when compared to previous report in September 2011 LV function has remained the same and RVSP has increased from 28 to 39 mmHg. Heart catheterization from 2018 showed ejection fraction of 55%, left main is angiographically normal, LAD with less than 30% stenosis, LCx with 85% proximal stenosis, mid RCA with less than 30% stenosis, and RT PDA with proximal 75% stenosis. She underwent PTCA/DAVID to proximal LCx and staged procedure to proximal PDA. Stress echocardiogram in November 2017 showed estimated ejection fraction of 65% and was considered abnormal, adequate, treadmill echocardiogram that was positive for ischemia by echocardiographic criteria. Assessment AND Plan 1. Atherosclerosis of [place] coronary artery of [place] heart without angina pectoris I25.10 [id number] Cx w/ 2.5 x 16 mm Synergy MR DAVID 12/17/17; PTCA/DAVID to proximal PDA in December 2017; Plan - AQUILINO Cummings She completed half of cardiac rehab. She had to stop due to financial concerns. She denies any concerning symptoms during cardiac rehab. She has remained active without symptoms since completing cardiac rehab. She will continue with current medications. She will continue with risk factor and lifestyle modifications. We will continue to monitor. Of note, questionable side effects related to propranolol at last office visit appear to have resolved. 2. History of coronary artery stent placement Z95.5 [id number] Cx w/ 2.5 x 16 mm Synergy MR DAVID 12/17/17; PTCA/DAVID to proximal PDA in December 2017; AQUILINO Persaud She was reminded of the importance of aspirin and Plavix therapy. She was also reminded to continue with Plavix therapy uninterrupted for the first year. 3. Essential (primary) hypertension I10 AQUILINO Persaud Patient's blood pressure is well-controlled today in the office. We will continue to monitor this. We will not make any medication regimen changes. 4. Pure hypercholesterolemia E78.00 AQUILINO Persaud Her lipid panel from February 2018 from outside facility by primary care physician showed LDL P: 856, LDL C: 54, HDL C: 35, triglyceride: 192, total cholesterol: 127, HDL P (total): 27.3, small LDL P: 566, and LDL size: 20. She will continue with current low-dose statin medication and we will continue to monitor. Plan Detail Additional Comments - TIM CummingsC Discussed the above patient with Dr. Garrett, he agrees with the plan of care. Thank you for allowing us to participate in the patients plan of care, if you have any questions please do not hesitate to call. This note was generated using a voice recognition system and there may be incorrect words, spelling or punctuation that were not noted when reviewing the office note prior to saving. Follow Up 6 Months (DJN) Coding Level of Care Code Off vis,est,level 3 Diagnoses Atherosclerosis of [place] coronary artery of [place] heart without angina pectoris I25.10 Coronary Disease-Associated Artery/Lesion type: [place] artery History of coronary artery stent placement Z95.5 Essential (primary) hypertension I10 Pure hypercholesterolemia E78.00 Coding Level of Care Code Off vis,est,level 3 Diagnoses Atherosclerosis of [place] coronary artery of [place] heart without angina pectoris I25.10 Coronary Disease-Associated Artery/Lesion type: [place] artery History of coronary artery stent placement Z95.5 Essential (primary) hypertension I10 Pure hypercholesterolemia E78.00 04/28/18 0710 <Electronically signed by Bayron Alberts NP-C> Date Bayron Alberts TAX CREDIT LEASING CONSULTANT-C 04/29/18 1542<Electronically signed by Hank Garrett MD> Cosigner Signature: Date (if applicable) Hank Garrett MD CC: Emily Osborne Start: 01-29-2018 End: 01-29-2018 Cardiology Visit Report Comments: See Note; NOTES: [facility] [address] [place] [address] OFFICE VISIT Date of Service: 01/28/18 MR#: [id number] Acct: [id number] Name: MARIPOSA PIZARRO Rep #: [id number] : 1945 Provider: FRANCISCO Alberts Age/Sex: 72/F Location: [facility] Status: Signed HPI HPI Details: MARIPOSA PIZARRO, is a 72 F who presents to the office today for a cardiovascular outpatient follow-up. She has a history of coronary artery disease status post PTCA/DAVID to proximal LCx in November 2017 and PTCA/DAVID to proximal PDA in December 2017, hypertension, hyperlipidemia, and previous smoking history in which she quit after less than half a pack per day for about 20 years on and off. Pt. denies arm, jaw, or neck discomfort. Her exercise tolerance is stable. Pt. denies symptoms of CHF, palpitations, lightheadedness, dizziness, near syncope, or syncopal episodes. Pt. denies claudication issues. Pt. denies orthopnea, PND, fever, chills, blood in urine, blood in stool, myalgia, or unexplainable fatigue. She states improved breathing. She states one episode of brief chest pain while working with dumbbells. This resolve once stopped and has not reoccurred. She states minimal right ankle edema that fluctuates. She states her after her PCI in November 2017, she states feeling more emotional than usual. She believes this is related to her propranolol. Intake Vital Signs01/28/18 Blood Pressure 142/76 01/28/18 Blood Pressure Location Lt brachial Intake Visit Reasons: post staged PCI per R Director Independent Required: No Accompanied by: None Is patient in pain?: No Allergies risedronate sodium [From Actonel] Allergy (Verified 01/28/18 09:16) Other fish oil Adverse Reaction (Verified 01/28/18 09:16) skin erruptions propoxyphene HCl [From Darvon] Adverse Reaction (Verified 01/28/18 09:16) Nausea/Vom/Diarrhea SEASONAL Allergy (Uncoded 01/07/18 08:11) Other STRAWBERRIES Allergy (Uncoded 01/07/18 08:11) Hives ONION Adverse Reaction (Uncoded 01/07/18 08:11) Vomiting statin Adverse Reaction (Uncoded 01/07/18 08:11) abdominal pain Medications Lorazepam [Ativan] 0.5 mg PO DAILY PRN PRN 10/18/16 [History Confirmed 01/06/18] aspirin 81 mg tablet,delayed release 81 mg PO QDAY 10/22/17 [History Confirmed 01/06/18] fluticasone 50 mcg/actuation nasal spray,suspension 1 spray INTRANASAL QDAY 10/22/17 [History Confirmed 01/06/18] calcium carbonate 500 mg calcium (1,250 mg) tablet 1,000 mg PO QDAY tab 10/23/17 [History Confirmed 01/06/18] chlorpheniramine-phenyleph- DM-ASA 2 mg-7.8 mg-10 mg-325 mg effervs tab 1 tab PO DAILY 10/23/17 [History Confirmed 01/06/18] cholecalciferol (vitamin D3) 5,000 unit capsule 5,000 unit PO QDAY 10/23/17 [History Confirmed 01/06/18] guaifenesin 400 mg tablet 400 mg PO Q4H PRN 10/23/17 [History Confirmed 01/06/18] loratadine 10 mg tablet 10 mg PO QDAY 10/23/17 [History Confirmed 01/06/18] magnesium 250 mg tablet 250 mg PO QDAY 10/23/17 [History Confirmed 01/06/18] omeprazole 20 mg capsule,delayed release 20 mg PO QDAY PRN 10/23/17 [History Confirmed 01/06/18] pyridoxine (vitamin B6) 100 mg tablet 100 mg PO QDAY 10/23/17 [History Confirmed 01/06/18] vitamins-lipotropics tablet 1 tab PO QDAY 10/23/17 [History Confirmed 12/11/17] propranolol ER 60 mg capsule,24 hr,extended release 60 mg PO QDAY #30 cap 12/18/17 [Rx Confirmed 01/06/18] atorvastatin 20 mg tablet 20 mg PO QDAY #30 tab 01/09/18 [Rx] clopidogrel 75 mg tablet 75 mg PO QDAY #30 tab 01/09/18 [Rx] Enalapril Maleate [Vasotec] 1.25 mg PO QDAY 01/21/18 [History Confirmed 01/21/18] Ejection fraction %: 65 to 70 PFSH Medical History History of coronary artery stent placement (Acute 12/17/17) Atherosclerosis of coronary artery of [place] heart without angina pectoris (Acute) Secondary pulmonary arterial hypertension (Acute) Hyperlipidemia (Chronic) Hypertension (Chronic) Anxiety (Chronic) Asbestos exposure (Chronic) Benign paroxysmal positional vertigo (Chronic) IBS (irritable bowel syndrome) (Chronic) Surgical History H/O eye surgery (Chronic) H/O tubal ligation (Chronic) History of back surgery (Chronic) History of tonsillectomy (Chronic) Family History Mother CVA (cerebral vascular accident) Myocardial infarction, Onset Age: 93 Father Myocardial infarction NE age 60 CAD (coronary artery disease) CABG x 3 Social History Smoking Status: Former smoker quit date: 06/23/07 pack-years: 12 alcohol intake: current alcohol intake frequency: a few times a month caffeine: Yes Type: carbonated beverages ROS Const Const: Negative for weakness, body ache, fever(s), chills or fatigue ENT ENT: Negative for dizziness Cardio Chest Pain: Yes Palpitations: No Edema: Right Muscle aches with walking: None Resp Respiratory: Negative for SOB with activity, SOB at rest, SOB orthopnea\\SOB lying down or paroxysmal nocturnal dyspnea GI GI: Negative nausea, black,tarry stools, bright, red blood in stools or vomiting blood/hematemesis : Negative for hematuria or frequent nighttime urination/ nocturia Musc Musc: Negative for muscle aches/ myalgia Skin Skin: Negative non-healing lesions or rash Neuro Neuro: Negative for lightheadedness, near syncope, syncope, orthostatic symptoms, weakness or dizziness Endo Endo: Negative for fatigue Allergy Allergy/Immunology: Negative for rash Cardiology Exam Const Appearance: cooperative, healthy appearing, comfortable and no acute distress Nutritional Appearance: average body habitus and well nourished Orientation: alert, awake and oriented x3 Head Head: normal to inspection Ears: hearing grossly normal bilaterally Nose: external nose normal Face and Sinus: face symmetric Mouth: oral mucosae normal Eyes General: appearance normal, both eyes and all related structures Eyelids: eyelids normal EOM: EOM intact bilaterally Neck Neck: no JVD and normal visual inspection Carotids: normal carotid upstroke Chest Chest inspection: normal inspection of the chest and normal respiratory effort; negative cough Auscultation: Bilateral: Clear to Auscultation Cardio Rate: regular rate Rhythm: regular rhythm Heart sounds: S1 normal, S2 normal and murmur; negative rub or gallop Murmur: Grade 2/6, LLSB and crescendo-decrescendo GI GI: normal to inspection Neuro General: alert, awake, oriented x3 and CN's II-XI intact bilaterally Skin Skin: no rashes or lesions noted and other Right groin is soft and without bruising. There is no bruit noted. Extremities Pulses: Normal: Right Posterior Tibial Pulse, Left Posterior Tibial Pulse, Right Radial Pulse, Left Radial Pulse Lower Extremity Edema: None: Bilateral Psych Psychological: normal affect Supplemental Info Echocardiogram from October 2017 showed estimated ejection fraction of 65%, stage I diastolic dysfunction, trivial tricuspid valve insufficiency, RVSP of 39 mmHg, mild pulmonary hypertension, trivial aortic valve insufficiency, no aortic stenosis, and when compared to previous report in September 2011 LV function has remained the same and RVSP has increased from 28 to 39 mmHg. Heart catheterization from 2018 showed ejection fraction of 55%, left main is angiographically normal, LAD with less than 30% stenosis, LCx with 85% proximal stenosis, mid RCA with less than 30% stenosis, and RT PDA with proximal 75% stenosis. She underwent PTCA/DAVID to proximal LCx and staged procedure to proximal PDA. Stress echocardiogram in November 2017 showed estimated ejection fraction of 65% and was considered abnormal, adequate, treadmill echocardiogram that was positive for ischemia by echocardiographic criteria. Assessment AND Plan 1. Atherosclerosis of [place] coronary artery of [place] heart without angina pectoris I25.10 [id number] Cx w/ 2.5 x 16 mm Synergy MR DAVID 12/17/17; PTCA/DAVID to proximal PDA in December 2017; Plan - AQUILINO Cummings Patient will begin cardiac rehab. Patient denies any arm pain, jaw pain, neck pain, shortness of breath, or fatigue suggestive of angina at this time. We will continue to monitor this. We will not make any medication regimen changes and will continue risk factor modification. One episode of chest pain appears atypical. This is most likely due to new exercise program. She was asked to continue to monitor this throughout cardiac rehab and contact office if she develops exertional chest pain. 2. History of coronary artery stent placement Z95.5 [id number] Cx w/ 2.5 x 16 mm Synergy MR DAVID 12/17/17; PTCA/DAVID to proximal PDA in December 2017; Plan - AQUILINO Cummings She will continue current treatment plan as outlined above. 3. Essential hypertension I10 Plan - AQUILINO Cummings Patient's blood pressure is slightly elevated today in office. She states this is due to being in doctor's office and rushing to multiple appointments. She will continue to follow this throughout cardiac rehab to contact office if it consistently remains elevated. She does acknowledge some emotional instability since her second heart catheterization. She states side effects online state that propanolol can do this. At this time the symptoms are improving. We will not adjust her medications at this time, however if she continues to have concerns we can consider switching this to metoprolol. 4. Pure hypercholesterolemia E78.00 Plan - AQUILINO Cummings Lipid panel from December 2017 showed cholesterol: 162, HDL: 32, LDL: 73, and triglycerides: 283. She will repeat her liver and lipid profile prior to next office visit in 3 months to discern if further adjustment of statin medication is needed. Plan Detail Additional Comments - AQUILINO Cummings She will keep April 2018 appointment to evaluate overall progress. Discussed the above patient with Dr. Garrett, he agrees with the plan of care. Thank you for allowing us to participate in the patients plan of care, if you have any questions please do not hesitate to call. This note was generated using a voice recognition system and there may be incorrect words, spelling or punctuation that were not noted when reviewing the office note prior to saving. Coding Level of Care Code Off vis,est,level 3 Diagnoses Atherosclerosis of [place] coronary artery of [place] heart without angina pectoris I25.10 Coronary Disease-Associated Artery/Lesion type: [place] artery History of coronary artery stent placement Z95.5 Essential hypertension I10 Hypertension type: essential hypertension Pure hypercholesterolemia E78.00 Hyperlipidemia type: pure hypercholesterolemia Coding Level of Care Code Off vis,est,level 3 Diagnoses Atherosclerosis of [place] coronary artery of [place] heart without angina pectoris I25.10 Coronary Disease-Associated Artery/Lesion type: [place] artery History of coronary artery stent placement Z95.5 Essential hypertension I10 Hypertension type: essential hypertension Pure hypercholesterolemia E78.00 Hyperlipidemia type: pure hypercholesterolemia 01/28/18 1007 <Electronically signed by Bayron H Roof TAX CREDIT LEASING CONSULTANT-C> Date Bayron Tate Lexus TAX CREDIT LEASING CONSULTANT-C 01/29/18 1602<Electronically signed by Hank Garrett MD> Cosigner Signature: Date (if applicable) Hank Garrett MD CC: Emily Osborne Start: 01-23-2018 End: 01-23-2018 CR - History AND Physical Comments: See Note; NOTES: [facility] [address] [place] [address] CR - History AND Physical MR#: [id number] Acct: [id number] Name: MARIPOSA PIZARRO Rep #: [id number] : 1945 72 From: Burton Delaney AMUSEMENT RIDE INSPECTOR, CAFETERIA MANAGER, BS PCP: Emily Jenkins DO DOS: 01/21/18 CR - History AND Physical - General Arrival date:: 01/21/18 Arrival time:: 13:08 Date of Referral:: 01/08/18 Date of CR Evaluation:: 01/21/18 Referring Physician: Dr. Hank Garrett Primary Diagnosis: PCI w/status post coronary stent placement - History of Present Cardiac Event Onset Date: Enter Onset Date of cardiac illnesses in Comment field below PTCA or coronary stenting:: Yes - 01/07/2018 Type of Symptoms:: Chest pain discomfort, abnormal stress product tester fiberglass to diagnostic heart cath subsequently stent placement Interventions with present event:: Stress test, diagnostic heart cath, PCI w/stent Were there any complications?: none - Medications Home Medications: Ambulatory Orders Medication Instructions Recorded Lorazepam [Ativan] 0.5 mg PO DAILY PRN PRN 10/18/16 aspirin 81 mg tablet,delayed 81 mg PO QDAY 10/22/17 - Allergies Allergies/Adverse Reactions: Allergies risedronate sodium [From Actonel] Allergy (Verified 01/07/18 08:11) Other fish oil Adverse Reaction (Verified 01/07/18 08:11) skin erruptions propoxyphene HCl [From Darvon] Adverse Reaction (Verified 01/07/18 08:11) Nausea/Vom/Diarrhea SEASONAL Allergy (Uncoded 01/07/18 08:11) Other STRAWBERRIES Allergy (Uncoded 01/07/18 08:11) Hives ONION Adverse Reaction (Uncoded 01/07/18 08:11) Vomiting statin Adverse Reaction (Uncoded 01/07/18 08:11) abdominal pain - Sleep Disorder Evaluation Hx of Sleep Apnea: No Do you snore loudly (louder than talking or can be heard through closed doors)?: Yes - yes, grandson c/o grandma snoring. Do you often feel tired/ fatigued/ sleepy during daytime?: Yes - sometimes Has anyone observed you stop breathing during sleep?: No History of Hypertension (for STOP score): Yes STOP Results: Positive Advanced Directives - Advanced Directives Power of Carroter: No Living Will: No Advance Directives Information Provided: Yes Advance Directives on File: No DNR Order?:: No - MOLST See MOLST form: No Past Medical History - Past Medical Illness Medical History: Past Medical History (Last Updated 12/17/17 @ 16:36 by Ev Reid) History of coronary artery stent placement (Acute) Onset Date: 12/17/17 Z95.5 [id number] Cx w/ 2.5 x 16 mm Synergy MR DAVID 12/17/17 Atherosclerosis of coronary artery of [place] heart without angina pectoris (Acute) I25.10 [id number]-[id number] Cx w/ 2.5 x 16 mm Synergy MR DAVID 12/17/17 Secondary pulmonary arterial hypertension (Acute) I27.21 Hyperlipidemia (Chronic) E78.5 Hypertension (Chronic) I10 Anxiety F41.9 Asbestos exposure Z77.090 Benign paroxysmal positional vertigo H81.10 IBS (irritable bowel syndrome) K58.9 - Past Surgical History Surgical History: Past Surgical History (Last Updated 10/23/17 @ 14:31 by Ev Reid) H/O eye surgery Z98.890 H/O tubal ligation Z98.51 History of back surgery Z98.890 L4-L5 History of tonsillectomy Z90.89 - Family History Summary Family History: Family History (Last Updated 10/23/17 @ 14:29 by Ev Reid) Mother CVA (cerebral vascular accident) Myocardial infarction, Onset Age: 93 Father Myocardial infarction NE age 60 CAD (coronary artery disease) CABG x 3 Social History - Smoking History Smoking Status: Former smoker Years Smokin Packs Smoked per Day: 0.5 Hx Smoking Cessation Date: 06/23/2007 Hx Tobacco Use: Yes Hx Smoking Exposure: No - Alcohol Use Alcohol Usage: Yes - occasionally - Substance Abuse Hx Substance Use: No - Occupation Occupation (List type of work in comments):: Retired - Hobbies, Recreation, Social Activities Hobbies: Other - golfing, sew, knit, mirza, exercise 3 x week, going out with friends, movies. Recreational Activities: I am able to engage in all my recreational activities Social Environment - Status Marital Status: - Current Living Arrangements Living Environment:: Alone - Children How many children do you have?: 1 - 1 grandchild Do any of your children live nearby?: Yes - Safety Do you feel safe in your surroundings?: Yes - Assistance Do you need any assistance at home?: no Review of Systems - Review of Systems Hints: Right click = Denies (Slash). Left click = Reports ([place]) Review of Present Symptoms: Reports: Dizziness/Lightheadedness - occasionally; very rare but does experience., Fatigue, Sleep - Normal. Denies: Shortness of Breath at Rest, Shortness of Breath with Exertion, Heart Arrhythmia/Irregularities, Appetite - Normal - eating less actually, not eating quite as much as before., Appetite - Special Diet - Pain Is Patient Pain Free?: Yes Pain Location: none Pain Level: 0/10 Risk Factor Assessment - Chief Complaint Chief Complaint: Patient is a very pleasent [address] Hank Garrett who presents to cardiac rehab today following recent heart cath adn stent placement procedure. Patient stated she had been experiencing shortness of breath adn a "lump in her throat" when walking up inclines etc. After investigative coronary work up a stent was placed on 01/07/2018. - Vital Signs Temperature: 98.7 F Respiratory Rate: 16 Pulse Ox: 96 Blood Pressure: 155/60 - office Nailbeds:: pink - Pulse Pulse Rate: 66 Pulse Rhythm: Regular - Hypertension Blood Pressure Sitting - Left Arm: 128/80 - Stress Stress: Home/Family - very sick daughter; medications make me cry, etc. just a lot of things going on. - Diabetes Nutrition Referral for Diabetes: No - Obesity Height: 5 ft 1 in Weight:: 156 lb Weight in Pounds: 156.0 lbs Weight Source: Standing Scale Body Mass Index (BMI): 29.5 Nutritional Referral for Obesity: No - Physical Inactivity Physical Inactivity: Reg Exercise 30 min/day - 3 days per week and golf on . Winter time work out 4 days per week. - Risk Stratification Risk Guidelines: Lowest Risk: Risk Factor for Smoking, Risk Factor for Dyslipidemia, Risk Factor for Sedentary Lifestyle, Risk Factor for Depression, Moderate Risk: Risk Factor for Diabetes - last HbA1c was 6.1, Risk Factor for Hypertension, Highest Risk: Risk Factor for Obesity - For Smoking Smoking Risk Guidelines: Smoking Low Risk: None or quit greater than 6 months ago. Smoking Moderate Risk: Smoker or quit 6 months or less ago. Smoking High Risk: Smoker - For Dyslipidemia Dyslipidemia Risk Guidelines: Low Risk: Moderate Risk: High Risk: 15-25% fat 25.1-29% fat >/= 30% fat. <7% sat fat 7-9% sat fat >9% sat fat. <150 mg chol 150-299 mg chol >/= 300 mg chol. LDL <100 LDL 100-129 LDL >/= 130. Chol/HDL ratio <5.0 Chol/HDL ratio 5.0-6.0 Chol/HDL ratio >6.0. Triglycerides <100 Triglycerides 100-149 Triglycerides >/= 150 - For Diabetes Mellitus Diabetes Risk Guidelines: Diabetes Low Risk: HgA1c <6.5% and/or FBG <120. Diabetes Moderate Risk: HgA1c 6.6-7.9% and/or FBG 120-180. Diabetes High Risk: HgA1c >/= 8% and/or FBG >180 - For Obesity/Overweight Obesity/Overweight Risk Guidelines: Obesity Low Risk: BMI <25.0. Obesity Moderate Risk: BMI 25-29.9. Obesity High Risk: BMI >/= 30.0 - For Hypertension Hypertension Risk Guidelines: Hypertension Low Risk: Systolic <120 and Diastolic <80. Hypertension Moderate Risk: Systolic 120-139 and Diastolic 80-89. Hypertension High Risk: Systolic >/= 140 and Diastolic >/= 90 - For Sedentary Lifestyle Sedentary Lifestyle Risk Guidelines: Sedentary Lifestyle Low Risk: >/= 1,500 kcal/week. Sedentary Lifestyle Moderate Risk: 700-1,499 kcal/week. Sedentary Lifestyle High Risk: < 700 kcal/week - For Depression Depression Risk Guidelines: Depression Low Risk: Not clinically depressed. Depression Moderate Risk: Mildly depressed. Depression High Risk: Clinically depressed - Family History Family History: Family History (Last Updated 10/23/17 @ 14:29 by Ev Reid) Mother CVA (cerebral vascular accident) Myocardial infarction, Onset Age: 93 Father Myocardial infarction CAD (coronary artery disease) Motivation - Motivation to Participate On a scale of 1 to 10, how prepared are you to commit to attending program?: 8 What do you see as barriers to successfully being able to complete the program?: co-payments and insurance coverage. What do you see as the benefits of succesfully completing the program? In other words, what do you hope to get out of participating in the program?: getting into better shape, maybe losing some weight. Are there issues you are dealing with that will interfere with completing the program?: no Do you have a spouse or signficant other, family or friends who will help support you to complete the program?: yes 01/21/18 1332 <Electronically signed by Burton Delaney CRT, RCP, BS> Date Burton Delaney CRT, RCP, BS Outcome assessment reviewed. Exercise plan approved as documented. Treatment plan and goals support patient needs/abilities. Continue with current plan. I certify the patient demonstrates improvement and remains willing and capable of participation. the patient continues to benefit from cardiac rehab services/training. The patient may continue at current intensity, endurance and modality and progress per protocol. 01/23/18 1037 <Electronically signed by Hank Garrett MD> Cosigner Signature: Date Hank Garrett MD CC: Signed Emily Jenkins Start: 01-13-2018 End: 01-13-2018 12 lead ECG Comments: See Note; NOTES: [facility] Cardiovascular Services [address] [address] 12 Lead EKG 01/08/18 0512 MR#: [id number] Acct: [id number] Name: MARIPOSA PIZARRO Rep #: [id number] : 1945 72 From: Hank Garrett MD Attending Dr: Hank Garrett MD Status: [place] [facility] [place]: Hank Garrett MD Date: 01/08/18 Location: [facility] Sex: F C Admitted: Test Reason : AM EKG Blood Pressure : / mmHG Vent. Rate : 062 BPM Atrial Rate : 062 BPM P-R Int : 204 ms QRS Dur : 082 ms QT Int : 446 ms P-R-T Axes : 053 -21 032 degrees QTc Int : 452 ms Normal sinus rhythm Nonspecific T wave abnormality Abnormal ECG When compared with ECG of 07-JAN-2018 10:35, MANUAL COMPARISON REQUIRED, DATA IS UNCONFIRMED Confirmed by HANK GARRETT ([id number]), publishing editor TORRIE LOPES ([id number]) on 01/13/2018 2:13:26 PM Referred By: Hank Garrett Confirmed By:HANK GARRETT 01/13/18 1413 Date Hank Garrett MD CC: Hank Garrett MD; Emily Jenkins DO Signed Hank Garrett Work Phone: Start: 01-08-2018 End: 01-08-2018 Discharge Instruction Comments: See Note; NOTES: [facility] Medical Records Department [address] [address] Instructions for Home/Discharge Instructions 01/08/18 0644 MR#: [id number] Acct: [id number] Name: MARIPOSA PIZARRO Rep #: [id number] : 1945 72 From: Bayron Alberts TAX CREDIT LEASING CONSULTANT-C PCP: Emily Jenkins DO Status: REG SD Discharge Diet: Low fat/ Low Cholesterol Discharge Activity: Return to Normal Activity May shower in (days): 1 May resume sexual activity in: 1-2 weeks Lifting Restrictions: Do not lift anything greater than 10 pounds for 3 days Call your doctor if your incision/area has: Continuous Slow Oozing, Sudden Increased Bleeding, Increased Pain/ Swelling, Increased Redness, Foul Smelling Discharge, Swelling at the incision site Call your doctor if you observe: Fever of 101 or Higher, Shortness of breath, Chest pain Change Dressing in (Days):: 1 Additional Instructions: You will continue with Plavix for at least one year. If anyone asks you to stop this medication, please contact the [facility] office first. Keep your 01/28/2018 appointment with Bayron Mejia Nurse Practitioner, at 9:00 AM. If you have questions or concerns, please call the [facility] office at [phone]. Allergies/Adverse Reactions: Allergies risedronate sodium [From Actonel] Allergy (Verified 01/07/18 08:11) Other fish oil Adverse Reaction (Verified 01/07/18 08:11) skin erruptions propoxyphene HCl [From Darvon] Adverse Reaction (Verified 01/07/18 08:11) Nausea/Vom/Diarrhea SEASONAL Allergy (Uncoded 01/07/18 08:11) Other STRAWBERRIES Allergy (Uncoded 01/07/18 08:11) Hives ONION Adverse Reaction (Uncoded 01/07/18 08:11) Vomiting statin Adverse Reaction (Uncoded 01/07/18 08:11) abdominal pain Medications to take at Discharge Simvastatin [Zocor] 20 mg PO QHS 05/19/16 Lorazepam [Ativan] 0.5 mg PO DAILY PRN PRN 10/18/16 aspirin 81 mg tablet,delayed release 81 mg PO QDAY 10/22/17 fluticasone 50 mcg/actuation nasal spray,suspension 1 spray INTRANASAL QDAY 10/22/17 calcium carbonate 500 mg calcium (1,250 mg) tablet 1,000 mg PO QDAY tab 10/23/17 chlorpheniramine-phenyleph- DM-ASA 2 mg-7.8 mg-10 mg-325 mg effervs tab 1 tab PO DAILY 10/23/17 cholecalciferol (vitamin D3) 5,000 unit capsule 5,000 unit PO QDAY 10/23/17 enalapril maleate 2.5 mg tablet 2.5 mg PO QDAY #30 tab 10/23/17 guaifenesin 400 mg tablet 400 mg PO Q4H PRN 10/23/17 loratadine 10 mg tablet 10 mg PO QDAY 10/23/17 magnesium 250 mg tablet 250 mg PO QDAY 10/23/17 omeprazole 20 mg capsule,delayed release 20 mg PO QDAY PRN 10/23/17 pyridoxine (vitamin B6) 100 mg tablet 100 mg PO QDAY 10/23/17 vitamins-lipotropics tablet 1 tab PO QDAY 10/23/17 clopidogrel 75 mg tablet 75 mg PO QDAY #30 tab 12/10/17 propranolol ER 60 mg capsule,24 hr,extended release 60 mg PO QDAY #30 cap 12/18/17 Primary Care Physician: Emily Jenkins DO [Primary Care Provider] - Test Results: Test results from this visit will be discussed in further detail at your follow-up appointment, if applicable. Please Follow Up With: Bayron Alberts, Nurse Practitioner When: 01/28/2018 @ 9:00 AM Proposed Discharge Date: 01/08/18 Cardiac Rehabilitation Info Cardiac Rehabilitation Program Information: Cardiac Rehabilitation is important for patients like you who are recovering from a heart problem. Cardiac rehabilitation programs are recognized as integral to the continued care of the patient with coronary heart disease. The cardiac rehabilitation program is designed to optimize a patient's physical, psychological, and social functioning. Health rn intensive care unit work in cardiac rehabilitation programs and assist you with getting the treatments you need to get stronger and healthier - like exercise, healthy eating habits, and medications. Cardiac rehabilitation has been show to help people with heart problems live longer and have better life enjoyment than people who do not go to cardiac rehabilitation. Please contact the Cardiac Rehabilitation Program at [facility] at in two weeks if you have not heard from them. 01/08/18 0647 <Electronically signed by Bayron DUMONTC> Date Bayron ROLLE CC: Emily Osborne Start: 01-07-2018 History of placement of stent for coronary artery disease History of coronary artery stent placement Bayron Alberts TAX CREDIT LEASING CONSULTANT-C Comment on above: BMI-XML-Twja LCx w/ 2.5 x 16 mm Synergy MR DAVID 12/17/17; VTP-CNB-Lzed RPDA w/ 2.25 x 12 mm Synergy stent 01/07/2018 Start: 12-19-2017 End: 12-19-2017 12 lead ECG Comments: See Note; NOTES: [facility] Cardiovascular Services [address] [place] [address] 12 Lead EKG 12/17/17 1106 MR#: [id number] Acct: [id number] Name: MARIPOSA PIZARRO Rep #: [id number] : 1945 72 From: Reilly Abbott MD Attending Dr: Hank Garrett MD [place] [facility] [place]: Hank Garrett MD Date: 12/17/17 Location: [facility] Sex: F C Admitted: Test Reason : Blood Pressure : / mmHG Vent. Rate : 078 BPM Atrial Rate : 078 BPM P-R Int : 194 ms QRS Dur : 088 ms QT Int : 420 ms P-R-T Axes : 056 -23 025 degrees QTc Int : 478 ms Normal sinus rhythm Nonspecific T wave abnormality Prolonged QT Abnormal ECG When compared with ECG of 18-OCT-2016 22:21, No significant change was found Confirmed by MILENA METCALF, REILLY ([id number]), publishing editor MANI KAM ([id number]) on 12/19/2017 10:04:52 AM Referred By: Hank Garrett Confirmed By:REILLY ABBOTT MD 12/19/17 1005 Date Reilly Abbott MD CC: Hank Garrett MD; Emily Jenkins DO Signed Hank Garrett Work Phone: Start: 12-18-2017 End: 12-18-2017 Discharge Instruction Comments: See Note; NOTES: [facility] Medical Records Department [address] [place] [address] Instructions for Home/Discharge Instructions 12/18/17 0743 MR#: [id number] Acct: [id number] Name: MARIPOSA PIZARRO Rep #: [id number] : 1945 72 From: Bayron DUMONTC PCP: Emily Jenkins DO [place] [facility] [place] by FRANCISCO Alberts on 12/18/17 at 0754 Your Second Heart Catheterization will be January 07, 2018. Please arrive at 8:00 AM. Date Bayron Alberts cc: Emilycarli Jenkins * Signed Discharge Diet: Low fat/ Low Cholesterol Discharge Activity: Return to Normal Activity May shower in (days): 1 May resume sexual activity in: 1-2 weeks Lifting Restrictions: Do not lift anything greater than 10 pounds for three days Call your doctor if your incision/area has: Continuous Slow Oozing, Sudden Increased Bleeding, Increased Pain/ Swelling, Increased Redness, Foul Smelling Discharge, Swelling at the incision site Call your doctor if you observe: Fever of 101 or Higher, Shortness of breath, Chest pain Remove Dressing in (days):: 1 Cleanse incision/area with: Soap AND Water Additional Instructions: You will tentatively planned to have your second heart catheterization on January 09. You will be contacted by the [facility] Office to confirm date and time. Continue with aspirin and Plavix. You will remain on Plavix upwards to one year. Do not stop your Plavix without contacted the [facility] Office first. You will be schedule for an office follow-up with Bayron Mejia, Nurse Practitioner, on January 28, 2018 at 9:00 AM to evaluate overall progress. You may be contacted by cardiac rehab before that office. Allergies/Adverse Reactions: Allergies risedronate sodium [From Actonel] Allergy (Verified 10/23/17 13:55) Other fish oil Adverse Reaction (Verified 10/23/17 14:12) skin erruptions propoxyphene HCl [From Darvon] Adverse Reaction (Verified 10/23/17 13:55) Nausea/Vom/Diarrhea SEASONAL Allergy (Uncoded 10/23/17 13:55) Other STRAWBERRIES Allergy (Uncoded 10/23/17 13:55) Hives ONION Adverse Reaction (Uncoded 10/23/17 13:55) Vomiting statin Adverse Reaction (Uncoded 10/23/17 14:21) abdominal pain Medications to take at Discharge Simvastatin [Zocor] 20 mg PO QHS 05/19/16 Lorazepam [Ativan] 0.5 mg PO DAILY PRN PRN 10/18/16 aspirin 81 mg tablet,delayed release 81 mg PO QDAY 10/22/17 fluticasone 50 mcg/actuation nasal spray,suspension 1 spray INTRANASAL QDAY 10/22/17 calcium carbonate 500 mg calcium (1,250 mg) tablet 1,000 mg PO QDAY tab 10/23/17 chlorpheniramine-phenyleph- DM-ASA 2 mg-7.8 mg-10 mg-325 mg effervs tab 1 tab PO DAILY 10/23/17 cholecalciferol (vitamin D3) 5,000 unit capsule 5,000 unit PO QDAY 10/23/17 enalapril maleate 2.5 mg tablet 2.5 mg PO QDAY #30 tab 10/23/17 guaifenesin 400 mg tablet 400 mg PO Q4H PRN 10/23/17 loratadine 10 mg tablet 10 mg PO QDAY 10/23/17 magnesium 250 mg tablet 250 mg PO QDAY 10/23/17 omeprazole 20 mg capsule,delayed release 20 mg PO QDAY PRN 10/23/17 pyridoxine (vitamin B6) 100 mg tablet 100 mg PO QDAY 10/23/17 vitamins-lipotropics tablet 1 tab PO QDAY 10/23/17 clopidogrel 75 mg tablet 75 mg PO QDAY #30 tab 12/10/17 Primary Care Physician: Emily Jenkins DO [Primary Care Provider] - Please Follow Up With: Bayron [facility] Nurse Practitioner When: January 28, 2018 @ 9:00 AM Proposed Discharge Date: 12/18/17 Cardiac Rehabilitation Info Cardiac Rehabilitation Program Information: Cardiac Rehabilitation is important for patients like you who are recovering from a heart problem. Cardiac rehabilitation programs are recognized as integral to the continued care of the patient with coronary heart disease. The cardiac rehabilitation program is designed to optimize a patient's physical, psychological, and social functioning. Health rn intensive care unit work in cardiac rehabilitation programs and assist you with getting the treatments you need to get stronger and healthier - like exercise, healthy eating habits, and medications. Cardiac rehabilitation has been show to help people with heart problems live longer and have better life enjoyment than people who do not go to cardiac rehabilitation. Please contact the Cardiac Rehabilitation Program at [facility] at in two weeks if you have not heard from them. 12/18/17 0748 <Electronically signed by Bayron ROLLE> Date Bayron ROLLE CC: Emily Osborne Start: 12-13-2017 End: 12-13-2017 Office Visit Report Comments: See Note; NOTES: [facility] [address] [place] [address] [place] [address] OFFICE VISIT Date of Service: 11/07/17 MR#: [id number] Acct: [id number] Patient: MARIPOSA PIZARRO Rep #: [id number] : 1945 Provider: Hank Garrett MD Age/Sex: 72/F Location: [facility] [place] Status: Signed Intake Vital Signs11/07/17 Blood Pressure 110/64 Intake Visit Reasons: 2 wk BP check Chief Complaint: Chest pain/dyspnea Is patient in pain?: No Allergies risedronate sodium [From Actonel] Allergy (Verified 10/23/17 13:55) Other fish oil Adverse Reaction (Verified 10/23/17 14:12) skin erruptions propoxyphene HCl [From Darvon] Adverse Reaction (Verified 10/23/17 13:55) Nausea/Vom/Diarrhea SEASONAL Allergy (Uncoded 10/23/17 13:55) Other STRAWBERRIES Allergy (Uncoded 10/23/17 13:55) Hives ONION Adverse Reaction (Uncoded 10/23/17 13:55) Vomiting statin Adverse Reaction (Uncoded 10/23/17 14:21) abdominal pain Medications Simvastatin [Zocor] 20 mg PO QHS 05/19/16 [History Confirmed 12/11/17] Lorazepam [Ativan] 0.5 mg PO DAILY PRN PRN 10/18/16 [History Confirmed 12/11/17] aspirin 81 mg tablet,delayed release 81 mg PO QDAY 10/22/17 [History Confirmed 12/11/17] fluticasone 50 mcg/actuation nasal spray,suspension 1 spray INTRANASAL QDAY 10/22/17 [History Confirmed 12/11/17] calcium carbonate 500 mg calcium (1,250 mg) tablet 1,000 mg PO QDAY tab 10/23/17 [History Confirmed 12/11/17] chlorpheniramine-phenyleph- DM-ASA 2 mg-7.8 mg-10 mg-325 mg effervs tab 1 tab PO DAILY 10/23/17 [History Confirmed 12/11/17] cholecalciferol (vitamin D3) 5,000 unit capsule 5,000 unit PO QDAY 10/23/17 [History Confirmed 12/11/17] enalapril maleate 2.5 mg tablet 2.5 mg PO QDAY #30 tab 10/23/17 [Rx Confirmed 12/11/17] guaifenesin 400 mg tablet 400 mg PO Q4H PRN 10/23/17 [History Confirmed 12/11/17] loratadine 10 mg tablet 10 mg PO QDAY 10/23/17 [History Confirmed 12/11/17] magnesium 250 mg tablet 250 mg PO QDAY 10/23/17 [History Confirmed 12/11/17] omeprazole 20 mg capsule,delayed release 20 mg PO QDAY PRN 10/23/17 [History Confirmed 12/11/17] pyridoxine (vitamin B6) 100 mg tablet 100 mg PO QDAY 10/23/17 [History Confirmed 12/11/17] vitamins-lipotropics tablet 1 tab PO QDAY 10/23/17 [History Confirmed 12/11/17] clopidogrel 75 mg tablet 75 mg PO QDAY #30 tab 12/10/17 [Rx Confirmed 12/11/17] Nursing Note Patient here to check BP on a whole Enalapril 2.5 mg daily (she was on half). She says she is nervous today and her bp goes up when that happens, however at home bp's range from 101-131/67-87. Today bp 110/64, Apical 76 and regular. Feels well. Instructed to continue present dose. 12/13/17 1288 <Electronically signed by Hank Garrett MD> Date Hank Villaignbenny Signature: Date (if applicable) CC: Malathi Yu Rima Emily Jenkins Start: 12-11-2017 End: 12-11-2017 Cardiology Visit Report Comments: See Note; NOTES: [facility] [address] [place] [address] OFFICE VISIT Date of Service: 12/10/17 MR#: [id number] Acct: [id number] Name: MARIPOSA PIZARRO Rep #: [id number] : 1945 Provider: Stella Lacy Age/Sex: 72/F Location: [facility] Status: Signed HPI HPI Details: MARIPOSA PIZARRO, is a 72 F who presents to the office today for an updated history and physical for an abnormal stress test. Patient recently established with us for chest discomfort. She underwent a stress echocardiogram today which was noted to be abnormal. Patient developed mid anterior septal, and mid anterolateral hypokinesis at peak exercise. In addition she developed significant dyspnea on exertion at peak exercise and chest pain post procedure which spontaneously resolved without medical therapy. Pt continues to have chest pain since the last time that she was in to see us. It occurs more she when she is doing activities outside. She was not like this last year. She does not have any worsening SOB. She does not have any palpitations. She does not have any lightheadedness/dizziness. She does not have any near syncope/syncope. She does not have any edema. Intake Vital Signs12/10/17 Height 5 ft 1 in 12/10/17 Weight: 158 lb 12/10/17 Body Mass Index (BMI) 29.8 12/10/17 Blood Pressure 155/60 12/10/17 Pulse Rate 84 Intake Visit Reasons: Abn Stress Allergies risedronate sodium [From Actonel] Allergy (Verified 10/23/17 13:55) Other fish oil Adverse Reaction (Verified 10/23/17 14:12) skin erruptions propoxyphene HCl [From Darvon] Adverse Reaction (Verified 10/23/17 13:55) Nausea/Vom/Diarrhea SEASONAL Allergy (Uncoded 10/23/17 13:55) Other STRAWBERRIES Allergy (Uncoded 10/23/17 13:55) Hives ONION Adverse Reaction (Uncoded 10/23/17 13:55) Vomiting statin Adverse Reaction (Uncoded 10/23/17 14:21) abdominal pain Medications Simvastatin [Zocor] 20 mg PO QHS 05/19/16 [History Confirmed 12/11/17] Lorazepam [Ativan] 0.5 mg PO DAILY PRN PRN 10/18/16 [History Confirmed 12/11/17] aspirin 81 mg tablet,delayed release 81 mg PO QDAY 10/22/17 [History Confirmed 12/11/17] fluticasone 50 mcg/actuation nasal spray,suspension 1 spray INTRANASAL QDAY 10/22/17 [History Confirmed 12/11/17] calcium carbonate 500 mg calcium (1,250 mg) tablet 1,000 mg PO QDAY tab 10/23/17 [History Confirmed 12/11/17] chlorpheniramine-phenyleph- DM-ASA 2 mg-7.8 mg-10 mg-325 mg effervs tab 1 tab PO DAILY 10/23/17 [History Confirmed 12/11/17] cholecalciferol (vitamin D3) 5,000 unit capsule 5,000 unit PO QDAY 10/23/17 [History Confirmed 12/11/17] enalapril maleate 2.5 mg tablet 2.5 mg PO QDAY #30 tab 10/23/17 [Rx Confirmed 12/11/17] guaifenesin 400 mg tablet 400 mg PO Q4H PRN 10/23/17 [History Confirmed 12/11/17] loratadine 10 mg tablet 10 mg PO QDAY 10/23/17 [History Confirmed 12/11/17] magnesium 250 mg tablet 250 mg PO QDAY 10/23/17 [History Confirmed 12/11/17] omeprazole 20 mg capsule,delayed release 20 mg PO QDAY PRN 10/23/17 [History Confirmed 12/11/17] pyridoxine (vitamin B6) 100 mg tablet 100 mg PO QDAY 10/23/17 [History Confirmed 12/11/17] vitamins-lipotropics tablet 1 tab PO QDAY 10/23/17 [History Confirmed 12/11/17] clopidogrel 75 mg tablet 75 mg PO QDAY #30 tab 12/10/17 [Rx Confirmed 12/11/17] PFSH Medical History Secondary pulmonary arterial hypertension (Acute) Hyperlipidemia (Chronic) Hypertension (Chronic) Anxiety (Chronic) Asbestos exposure (Chronic) Benign paroxysmal positional vertigo (Chronic) IBS (irritable bowel syndrome) (Chronic) Surgical History H/O eye surgery (Chronic) H/O tubal ligation (Chronic) History of back surgery (Chronic) History of tonsillectomy (Chronic) Family History Mother CVA (cerebral vascular accident) Myocardial infarction, Onset Age: 93 Father Myocardial infarction NE age 60 CAD (coronary artery disease) CABG x 3 Social History Smoking Status: Former smoker quit date: 06/23/07 pack-years: 12 ROS Const Const: Negative for weakness, fatigue, fever(s) or headache(s) Eyes Eyes: Negative for blind spots, loss of peripheral vision or transient loss of vision ENT ENT: Negative for headache(s), dizziness, tinnitus or Nosebleed/epistaxis Cardio Chest Pain: Yes Palpitations: No Edema: None Muscle aches with walking: None Resp Respiratory: Negative for SOB with activity, SOB at rest, SOB orthopnea\\SOB lying down or Cough GI GI: Negative nausea, vomiting, heartburn or vomiting blood/hematemesis : Negative for hematuria Musc Musc: Negative for muscle aches/ myalgia Neuro Neuro: Negative for weakness, headache(s), dizziness, near syncope, syncope, lightheadedness or orthostatic symptoms Navarro Hematologic/Lymphatic: Negative for easy bleeding Endo Endo: Negative for fatigue Cardiology Exam Const Appearance: cooperative, healthy appearing and no acute distress Nutritional Appearance: well nourished Orientation: alert, oriented x3 and oriented to person Head Head: normal to inspection, atraumatic and normocephalic Nose: external nose normal Face and Sinus: face symmetric Mouth: oral mucosae normal Eyes General: appearance normal, both eyes and all related structures Eyelids: eyelids normal Conjunctivae: conjunctivae normal Pupils: PERRL and normal by confrontation EOM: EOM intact bilaterally Neck Neck: normal visual inspection and full ROM Carotids: normal carotid upstroke Chest Chest inspection: normal inspection of the chest Auscultation: Bilateral: Clear to Auscultation Cardio Palpation: normal PMI Rate: regular rate Rhythm: regular rhythm Heart sounds: S2 normal Murmur: Grade 2/6 and crescendo-decrescendo GI GI: normal to inspection, no hepatosplenomegaly and bowel sounds present Neuro General: alert, oriented x3, awake, CN's II-XI intact bilaterally and moves all extremities Skin Skin: no rashes or lesions noted Extremities Pulses: Normal: Right Femoral Pulse, Left Femoral Pulse, Right Dorsalis Pedis Pulse, Left Dorsalis Pedis Pulse, Right Posterior Tibial Pulse, Left Posterior Tibial Pulse, Right Radial Pulse, Left Radial Pulse Lower Extremity Edema: None: Bilateral Psych Psychological: normal affect Supplemental Info Echocardiogram in 2018 demonstrated The estimated ejection fraction is 65 %. Stage 1 diastolic dysfunction. Trivial tricuspid valve insufficiency. Right ventricular systolic pressure estimated to be 39 mmHg. Mild pulmonary hypertension. Trivial aortic valve insufficiency. There is no aortic stenosis. Compared to echo report dated 10/11/2011, LV function has remained the same; RVSP has increased from 28 to 39 mm Hg. Assessment AND Plan Problems 1. Chest pain, unspecified type R07.9 2. Abnormal stress echocardiogram R94.39 3. Essential hypertension I10 4. Pure hypercholesterolemia E78.00; E78.0 Plan Patient did have an abnormal stress echocardiogram. She does continue to have chest discomfort with exertional activities. Would like to proceed with a diagnostic heart catheterization for further evaluation. Patient is agreeable to proceed with this. She will follow up accordingly after her heart catheterization. Plan Detail Additional Comments Thank you for allowing us to participate in patient's plan of care, if you have any questions please do not hesitate to call. This note was generated using a voice recognition system and there may be incorrect words, spelling or punctuation errors that were not noted when reviewing the office note prior to saving. Follow Up 12/10/17 (f/u based on heart cath) Coding Level of Care Code Off vis,est,level 3 Diagnoses Chest pain, unspecified type R07.9 Chest pain type: unspecified Abnormal stress echocardiogram R94.39 Essential hypertension I10 Hypertension type: essential hypertension Pure hypercholesterolemia E78.00; E78.0 Hyperlipidemia type: pure hypercholesterolemia Coding Level of Care Code Off vis,est,level 3 Diagnoses Chest pain, unspecified type R07.9 Chest pain type: unspecified Abnormal stress echocardiogram R94.39 Essential hypertension I10 Hypertension type: essential hypertension Pure hypercholesterolemia E78.00; E78.0 Hyperlipidemia type: pure hypercholesterolemia 12/11/17 1151 <Electronically signed by Stella KO> Date Stella KO Cosigner Signature: Date (if applicable) CC: Emily Jenkins Start: 12-10-2017 End: 12-10-2017 Stress Test Echo w/o Contrast Comments: See Note; NOTES: [facility] Cardiovascular Services [address] [place] [address] Stress Test Echo w/o Contrast MR#: [id number] Acct: [id number] Name: MARIPOSA PIZARRO Rep #: [id number] : 1945 72 From: Hank Garrett MD Primary Care: Alice Emily Status: REG CLI Ordering Dr: Hank Garrett MD Sex: F C Reason For Study: Chest Pain; Dyspnea Stress Results Protocol: Rinku Protocol Maximum Predicted HR: 149 bpm Target HR: 127 bpm% Max imum Predicted HR: 93 % Heart Stage Duration Rate BPCom ment (mm:ss) (bpm) Baseline 79 168/8 4No Chest Pain Rniku Protocol Stage I 3:00 12 6 156/78No Chest Pain; Mild Dyspnea Rinku Protocol Stage II 2:00 13 9 178/76No Chest Pain; Moderate Dyspnea Mild Chest Pain After Exercise, Resolved 4 Minutes Recovery 91 140/8 0Into Recovery Stress Duration: 5:00 mm:ss Maximum Stress HR: 139 bpmM ETS: 7 Baseline Echocardiogram Findings The estimated ejection fraction is 65 %. Stress Echo Wall motion Data Resting WMIntermediate WMStress WM Resting Wall Motion Wall Motion Stress No regional wall motion Basal anteroseptal: Severely abnormalities noted. Hypokinetic. Mid-Lateral : Severely Hypokinetic. Mid-anteroseptal : Severly Hypokinetic. Anterior Willow : Mildly hypokinetic. EKG Data The baseline ECG demonstrates normal sinus rhythm with at rate of _ beats per minute. The patient exercised according to the regular Rinku protocol for a total duration of 5:00. The maximum heart rate attained was 139 beats per minute. This was 93% of maximum predicted heart rate. The patient exercised into stage 2 of the Rinku protocol. During stress, there were no ST or T wave changes noted to suggest ischemia. Interpretation Summary The estimated ejection fraction is 65 %. Basal anteroseptal: Severely Hypokinetic. Mid-Lateral : Severely Hypokinetic. Mid-anteroseptal : Severly Hypokinetic. Anterior Willow : Mildly hypokinetic Abnormal, adequate, treadmill echocardiogram. Positive for ischemia by echocardiographic criteria. Patient developed mid anterior septal, and mid anterolateral hypokinesis at peak exercise. In addition she developed significant dyspnea on exertion at peak exercise and chest pain post procedure which spontaneously resolved without medical therapy. Appropriate blood pressure response to exercise. Below average exercise capacity for age. Test terminated due to dyspnea. Final LVEF of 45%. Patient will be referred for catheterization. No complications. Ordering Physician: Hank Garrett Referring Physician: Hank Garrett Performed By: Christy Alberts, REILLY, RVT 12/10/17 1517 Date Hank Garrett MD CC: Hank Garrett MD; Emily Jenkins DO Date Dictated: 12/10/17 1258 Date Transcribed: 12/10/171516 Gold Leaf Layer: Signed Hank Garrett Work Phone: Start: 11-13-2017 End: 11-13-2017 Echocardiogram Complete Comments: See Note; NOTES: [facility] Cardiovascular Services [address] [address] Echo Complete 11/13/17 1359 MR#: [id number] Acct: [id number] Name: MARIPOSA PIZARRO Rep #: [id number] : 1945 72 From: Hank Garrett MD Attending Dr: Hank Garrett MD Status: REG CLI Ordering Dr: Hank Garrett MD Date: 11/13/17 Location: [facility] Sex: F C Admitted: Reason For Study: chest pain Procedure This was a 2D Doppler, Color Flow transthoracic echocardiogram. Exam performed in department. Left Ventricle Normal size and thickness. The estimated ejection fraction is 65 %. Stage 1 diastolic dysfunction. No regional wall motion abnormalities noted. Right Ventricle Normal size and thickness. Normal systolic function. Atria Normal left atrium. Normal right atrium. Normal atrial septum. Mitral Valve The mitral valve is structurally normal. No prolapse or stenosis seen. Tricuspid Valve Normal tricuspid valve. Trivial tricuspid valve insufficiency. Right ventricular systolic pressure estimated to be 39 mmHg. Mild pulmonary hypertension. Aortic Valve Trisinus/trileaflet aortic valve. Mild focal aortic valve thickening. There is no aortic stenosis. Trivial aortic valve insufficiency. Pulmonic Valve The pulmonic valve is not well visualized. Great Vessels Normal aortic root. Normal arch. Normal inferior vena cava. Inferior vena cava collapse with sniff. Pericardium/Pleural No pericardial effusion. MMode/2D Measurements AND Calculations LVIDd: 4.7 cm IVSd: 0.91 cm Ao root diam: 2.6 cm LVIDs: 3.2 cm LVPWd: 1.1 cm RVDd: 2.3 cm FS: 33.0 % LAV(MOD-bp): 27.6 ml LA A4 area: 11.6 cm2 RA A4 area: 9.6 cm2 LAV(MOD-bp) Indexed: 16.3 ml/m2 LAV(MOD-sp2): 32.6 ml LAV(MOD-sp4): 23.6 ml Doppler Measurements AND Calculations MV E max layla: 70.4 cm/sec Lat Peak E' Layla: 4.8 cm/sec Med Peak E' Layla: 4.8 cm/sec MV A max layla: 98.2 cm/sec E/E' lat: 14.7 E/E' med: 14.5 MV E/A: 0.72 Ao V2 max: 144.4 cm/sec AI max layla: 421.4 cm/sec LV V1 max: 115.4 cm/sec Ao max P.3 mmHg AI max P.2 mmHg LV V1 max P.3 mmHg AI dec slope: 193.8 cm/sec2 AI P1/2t: 637.0 msec PA V2 max: 100.6 cm/sec TR max layla: 290.0 cm/sec TR max P.6 mmHg Interpretation Summary The estimated ejection fraction is 65 %. Stage 1 diastolic dysfunction. Trivial tricuspid valve insufficiency. Right ventricular systolic pressure estimated to be 39 mmHg. Mild pulmonary hypertension. Trivial aortic valve insufficiency. There is no aortic stenosis. Compared to echo report dated 10/11/2011, LV function has remained the same; RVSP has increased from 28 to 39 mm Hg. Ordering Physician: Hank Garrett Referring Physician: Emily Jenkins Performed By: Anita Bond, REILLY, RVT 11/13/17 1620 Date Hank Garrett MD CC: Hank Garrett MD; Emily Jenkins DO Date Dictated: 11/13/17 1359 Date Transcribed: 11/13/171619 Gold Leaf Layer: Signed Hank Garrett Work Phone: Start: 10-23-2017 End: 10-23-2017 Cardiology Visit Report Comments: See Note; NOTES: [address] [place] [address] OFFICE VISIT Date of Service: 10/23/17 MR#: [id number] Acct: [id number] Name: MARIPOSA PIZARRO Rep #: [id number] : 1945 Provider: Hank Garrett MD Age/Sex: 72/F Location: [facility] Status: Signed HPI HPI Chief Complaint: Chest pain/dyspnea Details: MARIPOSA PIZARRO, is a 72 F who presents to the office today for evaluation of chest pain. Specifically she has a nondiabetic, previous smoker who quit about 10 years ago after less than half a pack per day for about 20 years on and off. She does have a history of hypertension but is on no medications, does have a history of hypercholesterolemia. Patient had a CT calcium score in 2008 which demonstrated a Katzen score of 52 consistent with mild plaquing. In addition she underwent a stress echocardiogram on 07/05/08 it [facility] in which she went 9 minutes, had no chest pain, and had no evidence of ischemia. Patient had an echocardiogram on 10/11/11 which showed an EF of 70%, mild mitral valve prolapse, RVSP of 28 mmHg with aortic sclerosis but no stenosis and trivial aortic insufficiency. Patient states that over the last year she has had progressively worsening exertional angina described as a chest pressure as if someone is sitting on her chest while she was mowing the grass about 1 year ago. This caused her to stop to catch her breath and have the pain go away. Patient was exercising by walking on a treadmill and elliptical but no longer uses the incline component of it as she gets chest pressure. She also noted that her chest pressure now is more frequent and with less exertion. She is currently suffering from an upper respiratory tract infection and was recently placed on Biaxin and is taking eowm-dlm-shnpwrq decongestant medications. She has never been evaluated with pulmonary function test. In our office today her blood pressure is 180/80, and pulse is 90 and regular. Her physical exam demonstrates clear lungs bilaterally, regular rate and rhythm, a 2/6 systolic ejection murmur best heard at the upper right sternal border, no diastolic murmur, no edema. No lipids are noted. EKG dated 10/13/17 shows normal sinus rhythm, low voltage in the precordial limb leads, poor R-wave progression across the precordium, no acute changes. Intake Vital Signs10/23/17 Height 5 ft 0.75 in Intake Visit Reasons: CP, HOU (ALICE) Allergies risedronate sodium [From Actonel] Allergy (Verified 10/23/17 13:55) Other fish oil Adverse Reaction (Verified 10/23/17 14:12) skin erruptions propoxyphene HCl [From Darvon] Adverse Reaction (Verified 10/23/17 13:55) Nausea/Vom/Diarrhea SEASONAL Allergy (Uncoded 10/23/17 13:55) Other STRAWBERRIES Allergy (Uncoded 10/23/17 13:55) Hives ONION Adverse Reaction (Uncoded 10/23/17 13:55) Vomiting statin Adverse Reaction (Uncoded 10/23/17 14:21) abdominal pain Medications Simvastatin [Zocor] 20 mg PO QHS 05/19/16 [History Confirmed 10/23/17] Lorazepam [Ativan] 0.5 mg PO DAILY PRN PRN 10/18/16 [History Confirmed 10/23/17] aspirin 81 mg tablet,delayed release 81 mg PO QDAY 10/22/17 [History Confirmed 10/23/17] fluticasone 50 mcg/actuation nasal spray,suspension 1 spray INTRANASAL QDAY 10/22/17 [History Confirmed 10/23/17] calcium carbonate 500 mg calcium (1,250 mg) tablet 1,000 mg PO QDAY tab 10/23/17 [History Confirmed 10/23/17] chlorpheniramine-phenyleph- DM-ASA 2 mg-7.8 mg-10 mg-325 mg effervs tab ea PO 10/23/17 [History Confirmed 10/23/17] cholecalciferol (vitamin D3) 5,000 unit capsule 5,000 unit PO QDAY 10/23/17 [History Confirmed 10/23/17] guaifenesin 400 mg tablet 400 mg PO Q4H PRN 10/23/17 [History Confirmed 10/23/17] loratadine 10 mg tablet 10 mg PO QDAY 10/23/17 [History Confirmed 10/23/17] losartan 50 mg-hydrochlorothiazide 12.5 mg tablet 1 tab PO QDAY #30 tab 10/23/17 [Rx Confirmed 10/23/17] magnesium 250 mg tablet 250 mg PO QDAY 10/23/17 [History Confirmed 10/23/17] omeprazole 20 mg capsule,delayed release 20 mg PO QDAY PRN 10/23/17 [History Confirmed 10/23/17] pyridoxine (vitamin B6) 100 mg tablet 100 mg PO QDAY 10/23/17 [History Confirmed 10/23/17] vitamins-lipotropics tablet 1 tab PO QDAY 10/23/17 [History Confirmed 10/23/17] PFSH Family History Mother CVA (cerebral vascular accident) Myocardial infarction, Onset Age: 93 Father Myocardial infarction NE age 60 CAD (coronary artery disease) CABG x 3 Social History Smoking Status: Former smoker quit date: 06/23/07 pack-years: 12 ROS Const Const: Negative for fatigue, weakness, difficulty sleeping, frequent falls, headache(s) or excessive sweating Eyes Eyes: Negative for loss of peripheral vision, transient loss of vision, blurry vision or double vision ENT ENT: Negative for headache(s), dizziness, Nosebleed/epistaxis or balance problems Cardio Chest Pain: Yes Frequency: weekly Character: dull Onset: exercise Location: mid sternal Duration: brief Exacerbation: activity Relieving: rest Edema: None Muscle aches with walking: None Resp Respiratory: Negative for SOB with activity, SOB at rest, SOB orthopnea\\SOB lying down or paroxysmal nocturnal dyspnea Additional Details: Being treated for URI GI GI: Negative nausea or heartburn : Negative for hematuria Musc Musc: Negative for muscle aches/ myalgia, muscle weakness, joint pain or balance problems Skin Skin: Negative non-healing lesions, unusual bruising or rash Neuro Neuro: Negative for weakness, frequent falls, blurry vision, headache(s), dizziness, lightheadedness, orthostatic symptoms or double vision Navarro Hematologic/Lymphatic: Negative for easy bruising Endo Endo: Negative for fatigue, excessive sweating or increased thirst/drinking Psych Psych: Negative for anxiety or depression Allergy Allergy/Immunology: Negative for hives, Negative for rash Cardiology Exam Const Appearance: cooperative, healthy appearing and no acute distress Nutritional Appearance: well nourished Orientation: alert, oriented x3 and oriented to person Head Head: normal to inspection, atraumatic and normocephalic Nose: external nose normal Face and Sinus: face symmetric Mouth: oral mucosae normal Eyes General: appearance normal, both eyes and all related structures Eyelids: eyelids normal Conjunctivae: conjunctivae normal Pupils: PERRL and normal by confrontation EOM: EOM intact bilaterally Neck Neck: normal visual inspection and full ROM Carotids: normal carotid upstroke Chest Chest inspection: normal inspection of the chest Auscultation: Bilateral: Clear to Auscultation Cardio Palpation: normal PMI Rate: regular rate Rhythm: regular rhythm Heart sounds: S2 normal Murmur: Grade 2/6 and crescendo-decrescendo GI GI: normal to inspection, no hepatosplenomegaly and bowel sounds present Neuro General: alert, oriented x3, awake, CN's II-XI intact bilaterally and moves all extremities Skin Skin: no rashes or lesions noted Extremities Pulses: Normal: Right Femoral Pulse, Left Femoral Pulse, Right Dorsalis Pedis Pulse, Left Dorsalis Pedis Pulse, Right Posterior Tibial Pulse, Left Posterior Tibial Pulse, Right Radial Pulse, Left Radial Pulse Lower Extremity Edema: None: Bilateral Psych Psychological: normal affect Assessment AND Plan 1. Chest pain R07.9 Plan 1. Chest pain: The patient has had progressively worsening substernal chest pressure with exertion, to the point where she has had to dial back her incline on her treadmill and elliptical, previous smoker, with known hypertension, and hypercholesterolemia. She is a nondiabetic. Patient is hypertensive today, and it may be that she has hypertension induced chest pain versus ischemia that may require further evaluation. She did have a calcium score in 2009 which showed mild plaquing and a Ariel score of 52. For this reason I recommend that she undergo a treadmill echocardiogram to evaluate her exercise capacity, chest pain response to exercise, blood pressure response exercise, and ischemia. If this is grossly abnormal, she will require a diagnostic coronary angiogram. In the meantime I recommend that she start baby aspirin 81 mg p.o. daily, and switch her enalapril to losartan/HCTZ 50/12.5 mg p.o. daily for her hypertension and high diastolic numbers. In addition I recommend she undergo a 2D echo with Doppler to document her LV function, assess whether she has had any previous myocardial infarction or injury, as well as to assess her aortic sclerosis and aortic insufficiency as documented by echocardiogram in 2008. If the patient has no obstructive coronary disease which requires intervention I would recommend pulmonary evaluation with a pulmonary function test given the patient's previous smoking history. Orders Orders: 2. Hypertension I10 Plan 2. Hypertension: Recommend that she switch enalapril to Hyzaar 50/12.5 mg p.o. daily, with blood pressure check in 2 weeks time. Orders Orders: 3. Hyperlipidemia E78.5 Plan 3. Hyperlipidemia: Recommend aggressive LDL reduction given her risk factors and family history. She is currently on Zocor. We will repeat her lipid profile. Her LDL should be less than 70 given her known coronary disease as diagnosed by calcium score in 2008. 4. Return office in 6 months. This note was generated using a voice recognition system and there may be incorrect words, spelling or punctuation that were not noted when reviewing the office note prior to saving. Orders Orders: Plan Detail Other Orders Orders: Other Medications New: Discontinued: Follow Up +6M (Kannan) +2 weeks (BP check) Coding Level of Care Code Off vis,new,level 4 Diagnoses Chest pain R07.9 Hypertension I10 Hyperlipidemia E78.5 Coding Level of Care Code Off vis,new,level 4 Diagnoses Chest pain R07.9 Hypertension I10 Hyperlipidemia E78.5 10/23/17 1454 <Electronically signed by Hank Garrett MD> Date Hank Garrett MD [facility] Signature: Date (if applicable) CC: Emily Osborne Start: 10-13-2017 End: 10-13-2017 Chest PA and Lateral Comments: See Note; NOTES: [facility] Imaging Services [address] [address] Chest PA and Lateral MR#: [id number] Acct: [id number] Name: MARIPOSA PIZARRO Rep #: [id number] : 1945 F 72 From: Barrington Richard MD PCP: Emily Jenkins DO Status: REG CLI Study: Chest PA and Lateral Date of Exam: 10/13/17 Exam# [id number] Ordering Dr: Emily Jenkins DO STUDY: X-RAY CHEST REASON FOR EXAM: Female, 72 years old. Asbestos exposure. TECHNIQUE: PA and lateral views of the chest. COMPARISON: Portable AP upright chest x-ray May 19, 2016. FINDINGS: The lungs are clear and expanded. There is no demonstrated pleural abnormality. There is borderline cardiac enlargement. Normal mediastinum and nick. Normal visualized pulmonary arteries. There is early atherosclerotic calcification of the aortic arch. There are stable multilevel osteophytic degenerative changes of the visualized thoracic spine. Normal visualized ribs, clavicles, and shoulders. There is no demonstrated abnormality of the visualized soft tissue structures of the upper abdomen. RAD/Chest PA and Lateral IMPRESSION: Borderline cardiac enlargement. No pulmonary infiltrate or CHF. Electronically Signed: Spenser Richard MD at 16:06 EDT , Service support , CC: Emily Jenkins DO Gold Leaf Layer: Signed Emily Jenkins Work Phone: Start: 08-14-2017 End: 08-14-2017 DXA BONE DENS W/VERT FX ASMT Comments: See Note; NOTES: [facility] Imaging Services [address] [address] DXA BONE DENS W/VERT FX ASMT MR#: [id number] Acct: [id number] Name: MARIPOSA PIZARRO Rep #: [id number] : 1945 F 71 From: Arnaldo Magallon MD PCP: Emily Jenkins DO Status: REG CLI Study: DXA BONE DENS W/VERT FX ASMT Date of Exam: 08/14/17 Exam# [id number] Ordering Dr: Emily Jenkins DO STUDY: DUAL ENERGY X-RAY ABSORPTIOMETRY / DXA REASON FOR EXAM: Female, 71 years old. The patient is postmenopausal. TECHNIQUE: Bone Mineral Density (BMD) measurements of lumbar spine and bilateral hips were obtained. COMPARISON: Comparison is made with prior examination dated July 25, 2015. FINDINGS: Lumbar Spine (L1-L4): g/cm2 (0.960) / T-score (-1.7) / Z-score (0.0) Findings are suggestive of osteopenia with a moderate fracture risk. Left Femur Total: g/cm2 (0.816) / T-score (-1.4) / Z-score (0.0) Left Femoral Neck: g/cm2 (0.7-1) / T-score (-2.3) / Z-score (-0.6) Right Femur Total: g/cm2 (0.809) / T-score (-1.6) / Z-score (-0.1) Right Femoral Neck: g/cm2 (0.686) / T-score (-2.5) / Z-score (-0.8) The T-Scores on the most recent prior examination were: Lumbar Spine (L1-L4): There has been improvement of bone density since the previous examination. Left Femur Total: which represents a worsening of 0.4%. Right Femur Total: which represents a worsening of 3.9%. HPBD/DXA BONE DENS W/VERT FX ASMT IMPRESSION: The patient is considered osteopenic as outlined below according to World Benny Organization (WHO) criteria with a moderate fracture risk. There has been worsening of bone density since the previous examination. Reference Information: The T-score is the number of standard deviations above or below the standard which is normal for young adults at their peak bone mineral density. The World Health Organization (WHO) interprets the T-scores as follows: Above -1 Normal bone density Between -1 and -2.5 Osteopenia Equal to / or below -2.5 Osteoporosis As a practical clinical guideline, osteopenia may be graded as follows: Mild -1 through -1.5 Moderate -1.6 through -2.0 Severe -2.1 through -2.4 The Z-score is the number of standard deviations above or below age-matched controls. A Z-score of less than -1.5 would be considered abnormal. References: 1. NIH Osteoporosis and Related Bone Diseases http://www.osteo.org 2. International Society for Clinical Densitometry http://www.iscd.org 3. National Osteoporosis Foundation http://www.nof.org Electronically Signed: Arnaldo Magallon MD at 15:37 EST Tel [phone], Service support , CC: Emily Jenkins DO Gold Leaf Layer: Signed Emily Jenkins Work Phone: Start: 08-14-2017 End: 08-15-2017 SCREENING MAMM (CAD), BILAT Comments: See Note; NOTES: [facility] Imaging Services [address] [place] [address] SCREENING MAMM (CAD), BILAT MR#: [id number] Acct: [id number] Name: MARIPOSA PIZARRO Rep #: [id number] : 1945 F 71 From: Arnaldo Magallon MD PCP: Emily Jenkins DO Status: REG CLI Study: SCREENING MAMM (CAD), BILAT Date of Exam: 08/14/17 Exam# [id number] Ordering Dr: Bayron Valera MD MAMMOGRAPHY - BILATERAL SCREENING REASON FOR EXAM: Female, 71 years old. Routine annual screening examination. PERTINENT HISTORY: Mother with breast cancer. TECHNIQUE: Digital bilateral breast sheri (3D mammographic acquisition) in the CC and MLO projections. 2-D mediolateral oblique (MLO) and craniocaudad (CC) views of both breasts were obtained. CAD: Full Field Digital Mammography with Computer Added Detection was performed. COMPARISON: Comparison is made with prior study dated July 25, 2015 and November 16, 2013. FINDINGS: Breast Composition: There are scattered areas of fibroglandular density. There are no dominant masses or suspicious calcifications. Stable benign-appearing left axillary lymph nodes. No other significant abnormalities are identified. There has been no significant change since the prior study. HPBI/SCREENING MAMM (CAD), BILAT IMPRESSION: Stable bilateral screening mammogram. Yearly follow-up mammogram recommended. (A) ASSESSMENT CATEGORY: BIRADS Category 2: Benign. A letter regarding these results will be sent to the patient by the facility within 30 days. Approximately 10% of breast cancers are not detected by mammography. A normal mammogram should not delay biopsy of a clinically suspicious abnormality. [id number] Electronically Signed: Arnaldo Magallon MD at 8:50 EST Tel [phone], Service support , CC: Bayron Valera MD; Emily Jenkins DO Gold Leaf Layer: Signed Emily Jenkins Start: 10-30-2016 End: 10-30-2016 12 lead ECG Comments: See Note; NOTES: [facility] Cardiovascular Services [address] [place] [address] 12 Lead EKG 10/18/162220 MR#: [id number] Acct: [id number] Name: MARIPOSA PIZARRO Rep #: [id number] : 1945 71 From: Modesto Nguyễn MD Attending Dr: Status: DEP ER Ordering Dr: Maxine Osborne MD Date: 10/18/16 Location: ED Sex: F C Admitted: Test Reason : Blood Pressure : / mmHG Vent. Rate : 079 BPM Atrial Rate : 079 BPM P-R Int : 190 ms QRS Dur : 086 ms QT Int : 380 ms P-R-T Axes : 051 006 029 degrees QTc Int : 435 ms Normal sinus rhythm Poor R wave progression T wave abnormality, consider anterior ischemia Abnormal ECG Confirmed by DIMITRIOS METCALF, MODESTO ([id number]), publishing editor TORRIE LOPES ([id number]) on 10/30/2016 1:12:45 PM Referred By: DAVID Confirmed By:MODESTO NGUYỄN MD 10/30/16 1312 Date [place] Nguyễn MD CC: Emily Jenkins DO Date Dictated: 10/18/162220 Date Transcribed: 10/18/162220 Gold Leaf Layer: Signed Emily Jenkins Start: 10-20-2016 End: 10-20-2016 Emergency Department Summary Comments: See Note; NOTES: [facility] Medical Records Department [address] [place] [address] Emergency Department Summary MR#: [id number] Acct: [id number] Name: MARIPOSA PIZARRO Rep #: [id number] : 1945 71 From: Maxine Osborne MD PCP: Emily Jenkins DO Status: DEP ER DATE OF SERVICE: 10/18/2016 CHIEF COMPLAINT: Dizzy, vomiting, headache. LOPEZ HISTORY: The patient is a 71-year-old female with a spinning dizziness, mild last couple of days, but then worse tonight. She has had nausea and vomiting tonight. She has a mild headache. She does have a history of vertigo in the past with similar symptoms. Earlier this week she was working in her yard, bending over and standing up quite a bit, which may have triggered this. She also has a history of Meniere's, hypertension and high cholesterol. PHYSICAL EXAMINATION: VITAL SIGNS: Grossly unremarkable. GENERAL: The patient is sitting upright in bed. She is in no acute distress. HEART: Regular. LUNGS: Clear. ABDOMEN: Soft, nontender. NEUROLOGIC: Normal. HOSPITAL COURSE: The patient was given IV fluids, Zofran and Antivert. CBC reveals 11.9 white count, 15.9 hemoglobin. Chemistry studies reveal glucose of 121. EKG is sinus at 79 with no sign of acute ischemia. On repeat evaluation, the patient feels significantly improved. She will be given Antivert and Zofran for home. DISPOSITION: Discharge. IMPRESSION: Vertigo, improved. Maxine Osborne MD T: NTS JOB: [id number] 10/20/16 1501 <Electronically signed by Maxine Osborne MD> Date Maxine Osborne MD Cosigner Signature (If Indicated): Date CC: Emily Jenkins DO Date Dictated: 10/18/162318 Date Transcribed: 10/18/162318 Gold Leaf Layer: Signed Emily Jenkins Start: 10-18-2016 End: 10-18-2016 Discharge Instruction Comments: See Note; NOTES: [facility] Medical Records Department [address] [address] Discharge Instruction 10/18/16 2315 MR#: [id number] Acct: [id number] Name: MARIPOSA PIZARRO Rep #: [id number] : 1945 71 From: Maxine Osborne MD PCP: Emily Jenkins DO Status: [facility] ER ED Disposition - Plan for ED Patient: Disposition: Home or Assisted Living Chief Complaint: Dizziness Instructions: ED BPV Vertigo Prescriptions: Ondansetron [Zofran Odt] 4 mg PO Q8H PRN PRN #10 tablet PRN Reason: Nausea Meclizine HCl [Antivert] 25 mg PO TID PRN PRN #14 tablet PRN Reason: Vertigo Referrals: Emily Jenkins DO [Primary Care Provider] - 3-5 Days if not improving What to do if you have Problems For any increased pain, shortness of breath, bleeding, nausea or vomiting, chest pain, or any unexpected problems, contact your Primary Care Provider. Call [facility] ([phone]) or report to the closest Emergency Room. Call 911 if necessary. 10/18/16 2316 <Electronically signed by Maxine Osborne MD> Date Maxine Osborne MD Cosigner Signature (If Indicated): Date CC: Emily Osborne Start: 05-26-2016 End: 05-26-2016 Emergency Department Summary Comments: See Note; NOTES: [facility] Medical Records Department [address] [place] [address] Emergency Department Summary MR#: [id number] Acct: [id number] Name: MARIPOSA PIZARRO Rep #: [id number] : 1945 70 From: Socrates Barron MD PCP: Emily Jenkins DO Status: [facility] ER DATE OF SERVICE: 05/19/2016 CHIEF COMPLAINT: Left facial tingling. HISTORY OF PRESENT ILLNESS: A 70-year-old female complaining of left facial tingling. She has a history of hypertension, high cholesterol. This happened yesterday, resolved and then again today. She states yesterday is more of a discomfort in her left trapezius, today it is more of a tingling in her left face radiating to left arm. No chest pain. No shortness of breath. No abdominal pain. No headache. She has had prior stress test x2, which were negative and a carotid ultrasound, which was negative, both done years ago. She has never had a TIA or CVA. She is not diabetic. She denies any dysarthria. No weakness. No trouble with her balance. No trouble with her vision. No trouble with her speech. PHYSICAL EXAMINATION: VITAL SIGNS: A 70-year-old female, vital signs are stable, afebrile. She does not look septic or toxic. Her blood pressure is elevated at 190/85. HEENT: Unremarkable. Pupils are equal, round and reactive to light. Extraocular motions are intact. No facial droop. Tongue midline. Normal speech. She is able to open and close her eyes without any difficulty. NECK: Nontender. LUNGS: Clear to auscultation. HEART: Regular rate and rhythm, no murmur, rate in the 80s. ABDOMEN: Soft, nontender. EXTREMITIES: Moves all 4. Neurovascularly intact, 5/5 program aide group work strength. Dorsiflexion and plantar flexion intact. Xrweau-fo-bqrn, npnq-ar-avvc all within normal limits. Normal sensation of both upper and lower extremities. NEUROLOGIC: She is awake, alert, answering questions and acting appropriately, ambulate without any difficulty. NIH score of 0. EMERGENCY DEPARTMENT COURSE: A 70-year-old with atypical left-sided facial tingling. TEST RESULTS: The CTA head and neck showed no acute abnormality, reviewed by me, read by Dr. De La Cruz, the radiologist. Chest x-ray showed no acute processes. EKG sinus rhythm, rate of 74, no acute signs of NE, ischemia or dysrhythmia. Hemogram normal, electrolytes normal PT, INR normal, troponin normal. Her repeat exam, she is doing well at 1944. NEUROLOGIC: Remains normal. In the past, the patient was told to get an MRI. She has severe claustrophobia and said she is unable to do that. I discussed with her having it done with possible sedation. PLAN: I do not think she needs to be admitted to the hospital in light of all her tests and exam. She will be discharged to home with follow up with Dr. Emily Jenkins. IMPRESSION: Subjective left-sided facial tingling of uncertain etiology, acute on chronic hypertension. MD Alvin Torres C: Emily Jenkins DO T: NTS JOB: [id number] 05/26/16 0623 <Electronically signed by Socrates Barron MD> Date Socrates Barron MD Cosigner Signature (If Indicated): Date CC: Emily Jenkins DO Date Dictated: 05/19/161947 Date Transcribed: 05/19/161947 Gold Leaf Layer: Signed Emily Jenkins Start: 05-21-2016 End: 05-21-2016 12 lead ECG Comments: See Note; NOTES: [facility] Cardiovascular Services [address] [place] [address] 12 Lead EKG 05/19/16 1715 MR#: [id number] Acct: [id number] Name: MARIPOSA PIZRARO Rep #: [id number] : 1945 70 From: Reilly Abbott MD Attending Dr: Status: DEP ER Ordering Dr: Socrates Barron MD Date: 05/19/16 Location: ED Sex: F C Admitted: Test Reason : Blood Pressure : / mmHG Vent. Rate : 074 BPM Atrial Rate : 074 BPM P-R Int : 194 ms QRS Dur : 084 ms QT Int : 398 ms P-R-T Axes : 050 -19 007 degrees QTc Int : 441 ms Normal sinus rhythm Normal ECG Confirmed by REILLY ABBOTT MD ([id number]), publishing editor TORRIE LOPES ([id number]) on 05/21/2016 1:10:23 PM Referred By: CORY Confirmed By:REILLY ABBOTT MD 05/21/16 1310 Date Reilly Abbott MD CC: Emily Jenkins DO Date Dictated: 05/19/161714 Date Transcribed: 05/19/161714 Gold Leaf Layer: Signed Emily Jenkins Start: 05-19-2016 End: 05-19-2016 Discharge Instruction Comments: See Note; NOTES: [facility] Medical Records Department [address] [address] Discharge Instruction 05/19/161943 MR#: [id number] Acct: [id number] Name: MARIPOSA PIZARRO Rep #: [id number] : 1945 70 From: Sorcates Barron MD PCP: Emily Jenkins DO Status: DEP ER ED Disposition - Plan for ED Patient: Disposition: Home or Assisted Living Chief Complaint: Numb/Ting Instructions: ED Paraesthesias Referrals: Emily Jenkins DO [Primary Care Provider] - 3-5 Days Additional Instructions: RETURN IF WORSE, TROUBLE SPEAKING, WALKING, OFF BALANCE OR USING ARMS AND LEGS. CALL AND FOLLOW UP WITH DR JENKINS What to do if you have Problems For any increased pain, shortness of breath, bleeding, nausea or vomiting, chest pain, or any unexpected problems, contact your Primary Care Provider. Call [facility] ([phone]) or report to the closest Emergency Room. Call 911 if necessary. 05/19/16 6916 <Electronically signed by Socrates Barron MD> Date Socrates Barron MD Cosigner Signature (If Indicated): Date CC: Emily Osborne Start: 05-19-2016 End: 05-19-2016 CTA Head W/WO Contrast Comments: See Note; NOTES: [facility] Imaging Services [address] [address] Verdana 4d CTA Head W/WO Contrast MR#: [id number] Acct: [id number] Name: MARIPOSA PIZARRO Rep #: [id number] : 1945 F 70 From: Eligio De La Cruz MD PCP: Emily Jenkins DO Status: REG ER Study: CTA Head W/WO Contrast Date of Exam: 05/19/16 Exam# [id number] Ordering Dr: Socrates Barron MD STUDY: CTA OF THE BRAIN REASON FOR EXAM: Female, 70 years old. LEFT FACIAL TINGLING, LEFT ARM TRANSIENT, HTN RADIATION DOSAGE (If Supplied By Facility): CTDIvol = ( 25.39 ) mGy, DLP = ( 1402.90 ) mGycm TECHNIQUE: CT angiography was performed with a multi-detector CT scanner. Data acquisition was obtained from the skull base through the vertex following intravenous administration of 100 ml of Isovue 370. MIP images were reconstructed from the axial data set. Post-processing of the angiographic images was performed, with multiplanar reformation and 3D reconstruction. Individualized dose optimization techniques were used for this CT. COMPARISON: None. FINDINGS: Normal soft tissue structures. Normal calvarium. There are calcifications around the carotid artery. These are noted in the cavernous carotid arteries. There is mild cerebral atrophy with widening of the extra-axial spaces and ventricular dilatation. There are areas of decreased attenuation within the white matter tracts of the supratentorial brain, consistent with microvascular disease changes. Normal basal ganglia and thalami. Normal brainstem. There is mild cerebellar atrophy. There is no intracranial hemorrhage. There are no findings of an acute ischemic infarction. Normal visualized paranasal sinuses. Normal bilateral petrous carotid arteries. There is calcified plaque formation of the right cavernous carotid artery, without a cross-sectional luminal stenosis. There is calcified plaque formation of the left cavernous carotid artery, without a cross-sectional luminal stenosis. Normal right A1 segments of the anterior cerebral artery. Normal left A1 segments of the anterior cerebral artery. Normal intact anterior communicating artery (ACOM). Normal bilateral A2 segments of the anterior cerebral arteries. Normal right M1 and M2 segments of the middle cerebral arteries, with a normal M1 bifurcation. Normal left M1 and M2 segments of the middle cerebral arteries, with a normal M1 bifurcation. Normal right posterior communicating artery (PCOM). Normal left posterior communicating artery (PCOM). Normal bilateral vertebral arteries. Normal basilar artery with a normal basilar bifurcation. The visualized bilateral superior cerebellar (SCA) arteries are normal. Normal bilateral P1, P2 and visualized P3 segments of the posterior cerebral arteries. There is no demonstrated aneurysm of the kar[place] of [place]. There is no demonstrated abnormality of the visualized brain. CT/CTA Head W/WO Contrast IMPRESSION: NO demonstrated aneurysm or hemodynamically significant stenosis. There are calcifications around the cavernous carotid arteries. This is consistent for atherosclerotic disease. Chronic involutional changes of the brain. There are no acute findings. Electronically Signed: Eligio De La Cruz MD at 19:21 EST , Service support [phone], CC: Socrates Barron MD; Emily Jenkins DO Gold Leaf Layer: Signed Emily Jenkins Start: 05-19-2016 End: 05-19-2016 CTA Neck W/WO Contrast Comments: See Note; NOTES: [facility] Imaging Services [address] [place] [address] Verdana 4d CTA Neck W/WO Contrast MR#: [id number] Acct: [id number] Name: MARIPOSA PIZARRO Rep #: [id number] : 1945 F 70 From: Eligio De La Cruz MD PCP: Emily Jenkins DO Status: REG ER Study: CTA Neck W/WO Contrast Date of Exam: 05/19/16 Exam# [id number] Ordering Dr: Socrates Barron MD STUDY: CTA NECK WITH CONTRAST REASON FOR EXAM: Female, 70 years old. STUDY: CTA NECK WITH CONTRAST REASON FOR EXAM: Female, 70 years old. LEFT FACIAL TINGLING, LEFT ARM TRANSIENT, HTN RADIATION DOSAGE (If Supplied By Facility): CTDIvol = ( 25.39 ) mGy, DLP = ( 1402.90 ) mGycm TECHNIQUE: CT angiography with multi-detector data acquisition was performed from the aortic arch to the skull base following intravenous administration of 100ML ml of Isovue 370 contrast. MIP images were reconstructed from the axial data set. Post-processing of the angiographic images was performed, with multiplanar reformation and 3D reconstruction. COMPARISON: None. FINDINGS: AORTIC ARCH: There is atherosclerotic calcific plaque formation of the aortic arch and great vessels arising from the aortic arch, without a hemodynamically significant stenosis. There is a normal origin of the brachiocephalic, left common carotid, and left subclavian arteries. Normal origins of the brachiocephalic, left common carotid, and left subclavian arteries. RIGHT CAROTID ARTERIES: Normal right common carotid artery (CCA). Normal right common carotid bulb. There is mild atherosclerotic plaque formation of the origin of the right internal carotid artery with less than 50% cross sectional diameter stenosis. Normal visualized cervical portion of the right internal carotid artery. Normal origin of the right external carotid artery (ECA). LEFT CAROTID ARTERIES: Normal left common carotid artery (CCA). Normal left common carotid bulb. Normal origin of the left internal carotid (ICA) artery without a hemodynamically significant stenosis. Normal visualized cervical portion of the left internal carotid artery. Normal origin of the left external carotid artery (ECA). VERTEBRAL ARTERIES: Normal bilateral vertebral arteries. CT/CTA Neck W/WO Contrast IMPRESSION: There is no hemodynamically significant stenosis. Calculated stenosis of the Right and Left ICA's is less than 50%. . Electronically Signed: Eligio De La Cruz MD at 19:22 EST , Service support [phone], CC: Socrates Barron MD; Emily Jenkins DO Gold Leaf Layer: Signed Emily Jenkins Start: 05-19-2016 End: 05-19-2016 Chest 1 View Comments: See Note; NOTES: [facility] Imaging Services [address] [place] [address] Verdana 4d Chest 1 View MR#: [id number] Acct: [id number] Name: MARIPOSA PIZARRO Rep #: [id number] : 1945 F 70 From: Scott Slaughter MD PCP: Emily Jenkins DO Status: REG ER Study: Chest 1 View Date of Exam: 05/19/16 Exam# [id number] Ordering Dr: Socrates Barron MD STUDY: X-RAY CHEST REASON FOR EXAM: Female, 70 years old. Hypertension TECHNIQUE: Single AP portable view of the chest. COMPARISON: Prior study of 11/08/2011 FINDINGS: The lungs are clear and expanded. There is no demonstrated pleural abnormality. Normal size heart. Normal mediastinum and nick. Normal visualized pulmonary arteries. Normal visualized aortic arch and descending thoracic aorta. There are diffuse degenerative changes of the visualized thoracic spine. There is a small calcific density overlying the right shoulder joint which may represent calcific tendinitis or bursitis. There is no demonstrated abnormality of the visualized soft tissue structures of the upper abdomen. RAD/Chest 1 View IMPRESSION: Soft tissue calcification overlying the left shoulder joint which may represent calcific tendinitis or bursitis. Degenerative changes of the thoracic spine. No active cardiopulmonary disease process is seen. Electronically Signed: Scott Slaughter MD at 18:17 EST , Service support [phone], CC: Socrates Barron MD; Emily Jenkins DO Gold Leaf Layer: Signed Emily Jenkins Start: 09-18-2015 End: 09-18-2015 Ecg routine ecg w/least 12 lds w/i&r [MEASUREMENTS ANALYSIS] Date of Test: 09/18/2015 10:57:33; Heart Rate: 78; MS Interval: 186; QRS: 94; QT Interval: 404; Corrected QT Interval (QTc): 435; P Wave Clayton: 50; QRS Wave Clayton: 2; T Wave Clayton: -1; Blood Pressure: 142/82 [ECG DIAGNOSTIC STATEMENTS] Date of Test: 09/18/2015 10:57:33; Summary: Sinus Rhythm - Nonspecific T-abnormality. Low voltage with rightward P-axis and rotation -possible pulmonary disease. ABNORMAL Emily Alice Work Phone: Comment on above: nsr no acute chg Start: 07-25-2015 End: 07-25-2015 Bilat Scrn Digital AND CAD Comments: See Note; NOTES: [facility] Imaging Services [address] [address] Verdana 4d Bilat Scrn Digital AND CAD MR#: [id number] Acct: [id number] Name: MARIPOSA PIZARRO Rep #: [id number] : 1945 F 69 From: Arnaldo Magallon MD PCP: Emily Jenkins DO Status: REG CLI Study: Bilat Scrn Digital AND CAD Date of Exam: 07/25/15 Exam# [id number] Ordering Dr: Emily Jenkins DO MAMMOGRAPHY - BILATERAL SCREENING REASON FOR EXAM: Female, 69 years old. Routine annual screening examination. PERTINENT HISTORY: Sister with breast cancer. TECHNIQUE: Digital examination. Mediolateral oblique (MLO) and craniocaudad (CC) views of both breasts were obtained. CAD: CAD was performed on this study. COMPARISON: Comparison is made with prior study dated November 16, 2013 and July 22, 2011. FINDINGS: Breast Composition: There are scattered areas of fibroglandular density. There are no dominant masses or suspicious calcifications. No other significant abnormalities are identified. There has been no significant change since the prior study. IMPRESSION: Stable bilateral screening mammogram. Yearly follow-up mammogram recommended. (A) ASSESSMENT CATEGORY: BIRADS Category 1: Negative. A letter regarding these results will be sent to the patient by the facility within 30 days. Approximately 10% of breast cancers are not detected by mammography. A normal mammogram should not delay biopsy of a clinically suspicious abnormality. [id number] Electronically Signed: Arnaldo Magallon MD at 11:22 EST Tel [phone], Service support [phone], CC: Emily Jenkins DO Gold Leaf Layer: Signed Emily Jenkins Work Phone: Start: 07-25-2015 End: 07-26-2015 Dexa Bone Density Study () Comments: See Note; NOTES: [facility] Imaging Services [address] [place] [address] Verdana 4d Dexa Bone Density Study () MR#: [id number] Acct: [id number] Name: MARIPOSA PIZARRO Rep #: [id number] : 1945 F 69 From: Arnaldo Magallon MD PCP: Emily Jenkins DO Status: REG CLI Study: Dexa Bone Density Study () Date of Exam: 07/25/15 Exam# [id number] Ordering Dr: Emily Jenkins DO STUDY: DUAL ENERGY X-RAY ABSORPTIOMETRY / DXA REASON FOR EXAM: Female, 69 years old. The patient is postmenopausal. Loss of height. TECHNIQUE: Bone Mineral Density (BMD) measurements of lumbar spine and bilateral hips were obtained. COMPARISON: None. FINDINGS: Lumbar Spine (L1-L4): g/cm2 (0.906) / T-score (-2.2) / Z-score (-0.5) Findings are suggestive of osteopenia with a moderate fracture risk. Left Femur Total: g/cm2 (0.819) / T-score (-1.5) / Z-score (-0.1) Left Femoral Neck: g/cm2 (0.788) / T-score (-1.8) / Z-score (-0.2) Right Femur Total: g/cm2 (0.842) / T-score (-1.3) / Z-score (0.1) Right Femoral Neck: g/cm2 (0.755) / T-score (-2.0) / Z-score (-0.4) IMPRESSION: The patient is considered osteopenic as outlined below according to World Benny Organization (WHO) criteria with a moderate fracture risk. Reference Information: The T-score is the number of standard deviations above or below the standard which is normal for young adults at their peak bone mineral density. The World Health Organization (WHO) interprets the T-scores as follows: Above -1 Normal bone density Between -1 and -2.5 Osteopenia Equal to / or below -2.5 Osteoporosis As a practical clinical guideline, osteopenia may be graded as follows: Mild -1 through -1.5 Moderate -1.6 through -2.0 Severe -2.1 through -2.4 The Z-score is the number of standard deviations above or below age-matched controls. A Z-score of less than -1.5 would be considered abnormal. References: 1. NIH Osteoporosis and Related Bone Diseases http://www.osteo.org 2. International Society for Clinical Densitometry http://www.iscd.org 3. National Osteoporosis Foundation http://www.nof.org Electronically Signed: Arnaldo Magallon MD at 13:37 EST Tel [phone], Service support [phone], CC: Emily Jenkins DO Gold Leaf Layer: Signed Emily Jenkins Work Phone: Start: 06-09-2015 End: 06-09-2015 12 lead ECG Comments: See Note; NOTES: [facility] Cardiovascular Services [address] [place] [address] 12 Lead EKG 06/08/151658 MR#: [id number] Acct: [id number] Name: MARIPOSA PIZARRO Rep #: [id number] : 1945 69 From: Hank Garrett MD Attending Dr: Status: DEP ER Ordering Dr: Jim Ballesteros MD Date: 06/08/15 Location: ED Sex: F C Admitted: Test Reason : SYNCOPE Blood Pressure : / mmHG Vent. Rate : 085 BPM Atrial Rate : 085 BPM P-R Int : 184 ms QRS Dur : 082 ms QT Int : 366 ms P-R-T Axes : 050 -27 028 degrees QTc Int : 435 ms Normal sinus rhythm Low voltage QRS Borderline ECG Confirmed by HANK GARRETT ([id number]), publishing editor TORRIE LOPES ([id number]) on 06/09/2015 11:51:27 AM Referred By: CHANO Confirmed By:HANK GARRETT 06/09/15 1151 Date Hank Garrett MD CC: Emily Jenkins DO Date Dictated: 06/08/151658 Date Transcribed: 06/08/151658 Gold Leaf Layer: Signed Emily Jenkins Start: 06-08-2015 End: 06-08-2015 Emergency Department Summary Comments: See Note; NOTES: [facility] Medical Records Department [address] [place] [address] Emergency Department Summary MR#: [id number] Acct: [id number] Name: MARIPOSA PIZARRO Rep #: [id number] : 1945 69 From: Jim Ballesteros MD PCP: Emily Jenkins DO Status: DEP ER DATE OF SERVICE: 06/08/2015 CHIEF COMPLAINT: "Do not feel good." HISTORY OF PRESENT ILLNESS: This is a 69-year-old female who has not felt well for about 2 weeks. She has had some right-sided neck pain, which is worse with turning her head. She has cough, congestion, rhinorrhea, sneezing. She initially had some dizziness, which transiently improved, but then again worsened over the past 3-4 days. She describes the sensation of movement, more vertiginous symptoms with turning her head. There is no near-syncope. No weakness or paresthesias. No headache. She also checked her blood pressure at home today and noticed it was significantly elevated, which concerned her; however, she has been using nasal Wilfrid-Synephrine as well as decongestants and takes her blood pressure medication only at night. PHYSICAL EXAMINATION: VITAL SIGNS: Initial blood pressure 204/82. Vital signs otherwise within normal limits. HEART: Regular rate and rhythm. LUNGS: Clear, without rales, rhonchi or wheezes. ABDOMEN: Soft. Tympanic membranes are clear. NEUROLOGIC: There is no focal or lateralized neurological deficits. EMERGENCY DEPARTMENT COURSE: The patient had URI-like illness with associated vertiginous symptoms. It is very positional. I believe this is due to a peripheral vertigo. She does have mid ear effusions, but there is no tympanic membrane erythema or bulging, and she recently completed antibiotics to cover for possible otitis media. An EKG shows normal sinus rhythm. The patient was given meclizine here for vertigo. In regards to her elevated blood pressure, she has a history of high blood pressure, but has not taking her blood pressure medications since last night. She has also been taking Wilfrid-Synephrine and decongestants, which would certainly elevate her blood pressure. She was given lisinopril here and on reevaluation, her blood pressure is 137/82 and she is symptomatically improved. She was given a prescription for meclizine and advised to follow up with her primary care physician as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 Provider Instructions for [facility] Work Phone: Start: 04-19-2013 Patient Education [facility] Work Phone: Start: 04-19-2013 Provider Instructions for Treatment [facility] Work Phone: Start: 04-07-2013 FECAL OCCULT BLOOD FECAL OCCULT BLOOD [facility] Start: 08-24-2012 Provider Instructions for Treatment [facility] Work Phone: Start: 04-29-2012 Patient Education [facility] Work Phone: Start: 04-29-2012 Provider Instructions for Treatment [facility] Work Phone: Start: 04-16-2012 Patient Education [facility] Work Phone: Start: 04-16-2012 Provider Instructions for Treatment [facility] Work Phone: Start: 10-11-2011 Pneumococcal Vaccine: 65+ (1 of 1 - PCV) Pneumococcal Vaccine: 65+ (1 of 1 - PCV) [facility] Start: 10-11-2011 PNEUMOVAX AGE 65 AND OVER WITH 5YR LOOKBACK (#1) PNEUMOVAX AGE 65 AND OVER WITH 5YR LOOKBACK (#1) [facility] Start: 10-02-2011 Provider Instructions for Treatment [facility] Work Phone: Start: 04-21-2009 Mammography MAMMOGRAM [facility] Start: 10-05-2008 Provider Instructions for Treatment [facility] Work Phone: Start: 10-05-2008 Lipid panel [facility] Work Phone: Start: 09-01-2008 Provider Instructions for Treatment [facility] Work Phone: Start: 08-11-2008 Provider Instructions for Treatment [facility] Work Phone: Start: 08-09-2008 Provider Instructions for Treatment [facility] Work Phone: Start: 08-09-2008 Creatinine other source [facility] Work Phone: Start: 08-09-2008 Urine albumin quantitative [facility] Work Phone: Start: 07-27-2008 Provider Instructions for Treatment [facility] Work Phone: Start: 07-27-2008 Lipid panel [facility] Work Phone: Comment on above: do end august Start: 05-26-2008 Provider Instructions for Treatment [facility] Work Phone: Start: 05-11-2008 Provider Instructions for Treatment [facility] Work Phone: Start: 05-11-2008 25 hydroxy includes fractions if performed [facility] Work Phone: Start: 05-11-2008 1 25 dihydroxy includes fractions if performed [facility] Work Phone: Start: 05-11-2008 ALP enzyme act/vol ALKALINE PHOSPHATASE (24876) [facility] Work Phone: Start: 05-11-2008 Assay of phosphatase alkaline [facility]; [facility] Work Phone: Start: 05-11-2008 Assay of thyroid stimulating hormone tsh [facility]; [facility] Work Phone: Start: 05-11-2008 Protein electrophoretic fractj&quantj serum [facility] Work Phone: Start: 05-11-2008 Thyrotropin Qn TSH (94354) [facility] Work Phone: Start: 09-18-2007 Provider Instructions for Treatment [facility] Work Phone: Start: 2006 RSV Vaccine (1 - 1-dose 60+ series) RSV Vaccine (1 - 1-dose 60+ series) [facility] Start: 1996 Pneumococcal Vaccine: 50+ (1 of 1 - PCV) Pneumococcal Vaccine: 50+ (1 of 1 - PCV) [facility] Start: 1996 SHINGRIX VACCINE (1 of 2) SHINGRIX VACCINE (1 of 2) [facility] Start: 10-11-1991 COLOGUARD (FIT-DNA) COLOGUARD (FIT-DNA) [facility] Start: 10-11-[address] COLONOGRAPHY [facility] Start: 10-11-1991 SIGMOIDOSCOPY SIGMOIDOSCOPY [facility] Start: 1965 Urine microalbumin profile [facility] Start: 1964 Anxiety Screening Anxiety Screening [facility] Start: 1964 Depression Screening Depression Screening [facility] Start: 1964 HEPATITIS C SCREENING HEPATITIS C SCREENING [facility] Start: 1964 Hepatitis C screening Hepatitis C Screening [facility] Start: 1958 Adult depression screening assessment DEPRESSION SCREENING [facility] Start: 10-11-1951 COVID-19 VACCINE (1) COVID-19 VACCINE (1) [facility] Bacteria identified in Urine by Culture [facility] Bacteria identified in Urine by Culture URINE CULTURE Microbiology Routine Urinary frequency 09/14/2023 3:19 PM EDT [facility] Work Phone: Bacteria identified in Urine by Culture BACTERIAL CULTURE, URINE Microbiology Routine Acute cystitis without hematuria 10/27/2024 9:49 AM EDT [facility] Work Phone: Bacteria identified in Urine by Culture BACTERIAL CULTURE, URINE Microbiology Routine Dysuria Ordered: 10/28/2024 [facility] Work Phone: Comment on above: Ordered: 10/28/2024 Electrocardiographic procedure [facility] Patient referral [facility] Work Phone: [facility] Work Phone: [facility] Work Phone: [facility] Work Phone[facility] Work Phone: [facility] Work Phone: [facility] Work Phone: [facility] Work Phone: [facility] Work Phone[facility] Work Phone[facility] Work Phone: [facility] Work Phone: [facility] Work Phone: [facility] Work Phone: [facility] Work Phone: [facility] Work Phone: [facility] Work Phone: [facility] Work Phone: [facility] Work Phone: [facility] Work Phone: [facility] Work Phone[facility] Work Phone: [facility] Work Phone[facility] Work Phone: [facility] Work Phone[facility] Work Phone: [facility]; [facility] Work Phone: [facility]; [facility] Work Phone: [facility]; [facility] Work Phone: [facility]; [facility] Work Phone: [facility] Payers Date Payer Category Payer Self-pay [id number] 2019 Medicare HUMANA MEDICARE HUMANA MEDICARE PPO [id number] 2019-Present [phone] [place] [address] PPO [id number] 2019 Medicare HUMANA MEDICARE HUMANA MEDICARE PPO [id number] 2019-Present [phone] [place] [id number] PPO [id number] 2019 Medicare (Managed Care) [place] [id number] 2011 Medicare [id number] 1945 Unknown [id number] 1945 Unknown [id number] 1945 Unknown [id number] Medicare [id number] Unknown Unknown [id number] Unknown [id number] Unknown [id number] Unknown [id number] Unknown [id number] Unknown [id number] Unknown [id number] Unknown [id number] [id number] Social History Date Type Detail Facility Start: 05-28-2020 End: 09-14-2023 Alcohol Use Former smoker [facility] Work Phone: Comment on above: Occasional alcohol u se 2 QD Tobacco Use: Former smoker. [facility] Work Phone: Comment on above: 2 pack a week Start: 07-24-2021 End: 08-11-2023 Assertion Unknown if ever smoked [facility] Work Phone: Former smoker. [facility]; [facility] Work Phone: Start: 04-01-2012 End: 12-29-2024 Tobacco smoking status NHIS Ex-smoker [facility] Work Phone: Start: 07-02-2002 End: 07-02-2007 History of tobacco use Current smoker [facility] Work Phone: Start: 04-01-2012 End: 06-06-2024 Tobacco use and exposure Smokeless tobacco non-user [facility] Work Phone: Start: 09-13-2021 End: 06-06-2024 Alcohol intake Current drinker of alcohol (finding) [facility] Start: 1945 Sex Assigned At Not on file [facility] Start: 09-03-2021 End: 09-13-2021 Exposure to SARS-CoV-2 (event) Not sure [facility] Start: 1945 Sex Assigned At Female [facility] Start: 07-02-2002 End: 07-02-2007 History of tobacco use Cigarette Smoker [facility] Start: 05-28-2020 End: 09-14-2023 Tobacco use panel [facility] National Score (1-100), lower number is lower risk Not on file [facility] Start: 09-14-2023 Tobacco Comment 10 cigarettes daily [facility] Goals Date Patient Goal Desired Activity /State Functional Status Date Assessment Result Facility 03-17-2023 Functional Status Independent [facility] [place] 03-17-2023 Functional Status [facility] [place] 03-17-2023 Functional Status [facility] [place] 03-15-2023 Functional Status Independent [facility] [place] 03-15-2023 Functional Status Awake [facility] [place] 07-26-2020 LP-IR Score 86 [facility]; [facility] Work Phone: Comment on above: INSULIN RESISTANCE MARKER <--Insulin Sen sitive Insulin Resistant--> Percentile in Reference PopulationInsulin Resistance ScoreLP-IR Score Low 25th 50th 75th High <27 27 45 63 >63LP-IR Score is inaccurate if patient is non-fasting. .The LP-IR score is a laboratory developed index that has beenassociated with insulin resistance and diabetes risk and should beused as one component of a physician's clinical assessment. Test(s) 085556-SWO-D ; 936446-MTX-U; 411001-Cignthbvcqsht; 253945-Oocdrhdcwxn, Total; 378770-UZK-Y (Total); 102278-Dtbsm LDL-P; 835628-EJB Size; 845473-VY-VK Scorewas developed and its performance characteristics determinedby [employer]. It has not been cleared or approved by the Foodand Drug Administration.PATIENT WAS FASTINGPERFORMED BY: [employer] [address] [id number] BY: [employer] Tugkbw0897 [facility] [id number] 07-14-2019 LP-IR Score 87 [facility] Work Phone: Comment on above: INSULIN RESISTANCE MARKER <--Insulin Sen sitive Insulin Resistant--> Percentile in Reference PopulationInsulin Resistance ScoreLP-IR Score Low 25th 50th 75th High <27 27 45 63 >63LP-IR Score is inaccurate if patient is non-fasting. .The LP-IR score is a laboratory developed index that has beenassociated with insulin resistance and diabetes risk and should beused as one component of a physician's clinical assessment. Test(s) 919798-BMU-O ; 755536-RWS-M; 278661-DEZ-P; 645282-Wruvcinmyiwrf; 008745-Rnzgdugxbbh, Total; 134571-IHN-D (Total);232069-Hlsdd LDL-P; 402694-PGK Size; 519763-AF-CM Scorewas developed and its performance characteristics determinedby [employer]. It has not been cleared or approved by the Foodand Drug Administration.PATIENT WAS FASTINGPERFORMED BY: [employer] [address] [id number] BY: [facility] [id number] 11-10-2018 LP-IR Score 81 [facility] Work Phone: Comment on above: INSULIN RESISTANCE MARKER <--Insulin Sen sitive Insulin Resistant--> Percentile in Reference PopulationInsulin Resistance ScoreLP-IR Score Low 25th 50th 75th High <27 27 45 63 >63LP-IR Score is inaccurate if patient is non-fasting. .The LP-IR score is a laboratory developed index that has beenassociated with insulin resistance and diabetes risk and should beused as one component of a physician's clinical assessment. TheLP-IR score listed above has not been cleared by the [place] Food andDrug Administration. A courtesy copy of t his report has been sent [phone].PATIENT WAS FASTINGPERFORMED BY: [facility] CenterRtkfeiqwvm0573 [facility] [id number] BY: [employer] Gvxngk0850 [facility] [id number] Information: FX DR. GARRETT [phone] 03-20-2018 LP-IR Score 77 [facility] Work Phone: Comment on above: INSULIN RESISTANCE MARKER <--Insulin Sen sitive Insulin Resistant--> Percentile in Reference PopulationInsulin Resistance ScoreLP-IR Score Low 25th 50th 75th High <27 27 45 63 >63LP-IR Score is inaccurate if patient is non-fasting. .The LP-IR score is a laboratory developed index that has beenassociated with insulin resistance and diabetes risk and should beused as one component of a physician's clinical assessment. TheLP-IR score listed above has not been cleared by the [place] Food andDrug Administration. 10-17-2014 Are you deaf, or do you have serious difficulty hearing No 10/17/2014 12:39 PM ALOKT Jacklyn Carpenter MA No [facility] 10-17-2014 Are you blind, or do you have serious difficulty seeing, even when wearing glasses No 10/17/2014 12:39 PM EDT Jacklyn Carpenter MA No [facility] 10-17-2014 Do you have serious difficulty walking or climbing stairs No 10/17/2014 12:39 PM EDT Jacklyn Carpenter MA No [facility] 10-17-2014 Do you have difficul ty dressing or bathing No 10/17/2014 12:39 PM EDT Jacklyn Carpenter MA No [facility] 10-17-2014 Because of a physica l, mental, or emotional condition, do you have difficulty doing errands alone such as visiting a physician's office or shopping No 10/17/2014 12:39 PM EDT Jacklyn Carpenter MA No [facility] Mental Status Date Assessment Result Facility 12-29-2024 Cognitive function Voice/Name;Touch/Shaki ng [facility] Work Phone: 08-11-2023 Cognitive function Level Of Cons ciousness Awake;Alert;Appropriate;Fol lows Commands [facility] Work Phone: 07-22-2023 Cognitive function Voice/Name [facility] Work Phone: 03-17-2023 Mental Status Orientation Orie nted x 4, Not oriented to person, Not oriented to place [facility] 03-17-2023 Mental Status [facility] 03-15-2023 Mental Status Orientation Oriented x 4 [facility] 03-15-2023 Mental Status [facility] 07-27-2022 Cognitive function Level Of Cons ciousness Awake;Alert;Appropriate;Fol lows Commands [facility] Work Phone: 07-14-2022 Cognitive function Level Of Cons ciousness Awake;Alert;Appropriate;Fol lows Commands [facility] Work Phone: 07-13-2022 Cognitive function Level Of Cons ciousness Awake;Alert;Appropriate [facility] Work Phone: 10-17-2014 Because of a physica l, mental, or emotional condition, do you have serious difficulty concentrating, remembering, or making decisions No 10/17/2014 12:39 PM EDT Jacklyn Carpenter MA No [facility] Clinical Notes 04-01-2012 to 12-29-2024 Note Date & Type Note Facility 12-29-2024 Consult note [facility] 12-29-2024 History and physical note Note Date/Time December 29, 2024 9:06am [facility] Medical Records Department [address] [place] [address] History & Physical Exam 12/29/24 0755 MR#: [id number] Acct: [id number] Name: MARIPOSA PIZARRO Rep #:[id number] : 1945 79 From: Allison Roblero MD PCP: Dr. Emily Jenkins, DO [place] [place] [address] HPI - General General Date of Service: 12/29/24 HPI Narrative MARIPOSA PIZARRO, is a 79 F who presents for screening colonoscopy. Patient denies any changes since office visit. Office visit 11/12/2024 HPI HPI: 79-year-old female presents due to left groin pain. Patient was seen by her PCPas well as in the ER for this. Patient had an CAT scan did not show any obviousinguinal hernias. Patient states that she has had this left groin pain for about 4 weeks occurred when she was walking. Patient states she gets it daily worse with lifting she does not really notice a bulge. Patient does take Tylenol 500 mg p.o. once a day. Patient's daughter also gave a history of having left-sided pain similar about a year ago and she was not even able to walk with that. Patient did admit to having pain down her leg at that time as well. When asking further patient states she does occasionally have pain down her leg with this left-sided pain. Patient can get occasional nausea when the pain gets worse. Typically the pain is a 1?2/10 but can occasionally get to a 10/10 but does resolve quickly with rest. Patient was last colonoscopy was about 11 years ago denies any family history ofcolon cancer. Patient has bowel movements daily occasionally has some bright red blood due to known hemorrhoids. Patient states he occasionally does get constipated and does take MiraLAX as needed. Patient was initially scheduled for open access but canceled due to a UTI prior to procedure. [facility] Medical History Wears glasses Elevated triglycerides with high cholesterol Bone spur Sleep apnea Leg cramps History of echocardiogram History of stress test Cardiology follow-up encounter Epistaxis Asthma Stomach ulcer Shoulder pain History of hemorrhoids Arthritis Pure hypercholesterolemia Essential (primary) hypertension Atherosclerosis of coronary artery of [place] heart without angina pectoris Secondary pulmonary arterial hypertension Dyspnea Benign paroxysmal positional vertigo Anxiety IBS (irritable bowel syndrome) Asbestos exposure Home Medications ?Medication ?Instructions ?Recorded ?Last Taken ?Type lorazepam 0.5 mg tablet 0.5 mg PO DAILY PRN PRN Anxi ety 10/18/16 12/29/24 History calcium carbonate (Calcium 500) 1,000 mg PO QDAY 10/2312/28/24 History cholecalciferol (vitamin D3) 125 5,000 unit PO QDAY 12/28/24 History mcg (5,000 unit) capsule loratadine 10 mg tablet (Allergy 10 mg PO QDAY 8 12/28/24 History Relief (loratadine)) magnesium 250 mg tablet 250 mg PO QDAY 10/23/1702/14 History omeprazole 20 mg capsule,delayed 20 mg PO QDAY PRN Hea rtburn 10/23/17 12/29/24 History release zinc gluconate 50 mg tablet 50 mg PO DAILY 07/24/21 History blood pressure monitor (Blood #1 ea 07/24/22 Unknown R x Pressure Kit) vitamins-lipotropics 200 mg-100 mg 1 tab PO DAILY 06/2412/28/24 History tablet (Ear Care) enalapril maleate 2.5 mg tablet 1.25 mg (1/2 x 2.5 mg) PO BID #90 03/23/24 12/28/24 Rx tabs propranolol 60 mg capsule,24 60 mg PO QDAY #90 caps 12/29/24 Rx hr,extended release ibuprofen 200 mg tablet 200 mg PO DAILY 12/06/2409/14 History rosuvastatin 5 mg tablet 5 mg PO MOWEFR 12/06/2401/14 History guaifenesin 400 mg tablet 400 mg PO DAILY 12/27/2402/14 History Allergy/AdvReac Type Severity Reaction Status Date / Time risedronate sodium (From Allergy Other Verified 12/29/24 08:00 Actonel) strawberry Allergy Hives Verified 12/29/24 08:00 fish oil AdvReac skin Verified 12/29/24 08:00 erruptions onion AdvReac Vomiting Verified 12/29/24 08:00 prednisone AdvReac Other Verified 12/29/24 08:00 propoxyphene HCl (From AdvReac Nausea/Vom/ Verified 12/29/24 08:00 Darvon) Diarrhea Beoyaoc-WZX-BiR Reductase AdvReac Other Verified 12/29/24 08:00 Inhibitor Family History Mother CVA (cerebral vascular accident) Myocardial infarction, Onset Age: 93 Breast cancer Father Myocardial infarction [place] age 60 CAD (coronary artery disease) CABG x 3 Cancer Heart disease Hypertension Brother Heart disease Hypertension Surgical History History of cardiac catheterization H/O dilation and curettage (~07/22/23) S/P trigger finger release History of coronary artery stent placement (01/07/18) History of back surgery H/O tubal ligation H/O eye surgery History of tonsillectomy Social History household members: none current occupational status: retired Smoking Status: Former smoker quit date: 06/23/07 pack-years: 12 alcohol intake: current alcohol intake frequency: a few times a month substance use type: does not use caffeine: Yes Type: carbonated beverages seatbelt use: always do you feel safe at home: Yes Past Medical/Surgical History Planned Operation Planned Operative Procedure(s): cscope Previous Hospitalizations/Surgeries HX Hospitalizations: No HX of Surgeries: Eye surgery, tubal ligation, back surgery, tonsillectomy Any Problems With Anesthesia: No You/Your Family Experience Fever (Hyperthermia) With Anes: No Cholinesterase deficiency: No Cardiovascular Hx Chest Pain within Last 2 months: Yes Hx of Irregular Heartbeat and/or Afib: No Hx Heart Attack: No Hx Congestive Heart Failure: No Hx Rheumatic Fever: No Hx Hypertension: Yes Hx Internal Defibrillator: No Hx Pacemaker: No Hx Cardiac Catheterization: No Hx Cardiac Surgery/Stents/Etc.: No Hx Stress Test: Yes Hx Pain in Legs when Walking/Leg Cramps: No Respiratory Chronic Cough: No HX of Shortness of Breath: No Hx Chronic Obstructive Pulmonary Disease (COPD): No Hx Asthma: Yes Hx Emphysema: No Hx Sleep Apnea: Yes CPAP: No BIPAP: No Hx Respiratory Tract Infection/Cold (presently): No Result (for STOP score): Positive Hx Smoking: Yes Smoking Status: Former smoker Gastrointestinal Hx Gastrointestinal Bleed: No Hx Ulcer: No Difficulty Chewing/Swallowing: No Special diet followed at home: No Hx Unplanned Weight Loss of 20#: No HX Unplanned Weight Gain of 20#: No Neurological Hx Seizures: No HX Syncope/Blackout Spells/Unconsciousness: No Hx Multiple Sclerosis: No Hx Parkinson's Disease: No Hx Head/Neck Injury: Yes Hx Headaches: No Hx Back Injury/Pain: Yes Does patient have nerve stimulator: No Blood Disorder Hx Deep Vein Thrombosis: No Hx High Cholesterol: No Hx Hepatitis: No Hx Anemia: No Reproduction Is Patient Lactating: No Genitourinary Hx Renal Disease: No Hx Dialysis: No Musculoskeletal Hx 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) Hx Gout: No Endocrine Hx Diabetes: Yes (PREDIABETIC) Insulin: No Thyroid Disease: No Psycho/Social Hx Substance Use: No Hx Alcohol Use: Yes Hx Anxiety: Yes Hx Depression: No Hx Dementia: No Miscellaneous Hx Cancer: No Recent Exposure to Contagious Disease: No Allergies risedronate sodium (From Actonel) Allergy (Verified 12/29/24 08:00) Other strawberry Allergy (Verified 12/29/24 08:00) Hives fish oil Adverse Reaction (Verified 12/29/24 08:00) skin erruptions onion Adverse Reaction (Verified 12/29/24 08:00) Vomiting prednisone Adverse Reaction (Verified 12/29/24 08:00) Other suicidal ideation propoxyphene HCl (From Darvon) Adverse Reaction (Verified 12/29/24 08:00) Nausea/Vom/Diarrhea Ldnbmuz-LIJ-LyY Reductase Inhibitor Adverse Reaction (Verified 12/29/24 08:00) Other ABDOMINAL PAIN Discharge Is Pt Admitted From a Senior Living, or a Assisted: No After D/C, Where Do you Plan to Go: Return Home From the PAT History Number of Risk Factors: 4 Physical Exam Const alert, oriented x3 and no apparent distress HEENT normocephalic and head/scalp atraumatic Resp normal respiratory effort Cardio regular rate GI soft to palpation and non-tender; Negative for non-distended Palpation: Negative for guarding Extremity no clubbing, cyanosis or edema Skin no rashes or lesions noted Neuro CN's II-XII intact bilaterally Psych mental status grossly normal Assessment & Plan Assessment/Plan (1) Screening for colon cancer: Surgery Risks - Colonoscopy I discussed with the patient the risks of the procedure: Yes Risks Include but are not Limited To: Risks include but are not limited to: Bleeding, perforation requiring further surgery, inability to complete colonoscopy requiring barium enema. 12/29/24 09 <Electronically signed by Allison Roblero MD> Cosigner Signature (if applicable): CC: Dr. Emily Jenkins DO; Dr. Allison Roblero MD~ Signed [facility] Work Phone: [phone]) 984-310207-09-2025 Consult note Author Hussain Garnett [facility] Note Date/Time December 29, 2024 8:45a [facility] Medical Records Department [address] [place] [id number] Pre-Anesthesia Evaluation 12/29/2429 MR#: [id number] Acct: [id number] Name: MARIPOSA PIZARRO Rep #:[id number] : 1945 79 From: Hussain Rodriguez PCP: Dr. Emily Jenkins DO Status: [facility] [place] C Location: [place] [address] ASA Classification* ASA Classification ASA Classification: 2 Assessment & Plan Anesthesia* Anesthesia Assessment Anesthesia Assessment: Discussed sedation and/or anesthesia options, risks, benefits, and alternatives with patient/parents/legal guardian/POA. Questions invited. The patient/parents/legal guardian/POA seems to understand and agrees to proceedwith anesthesia plan. Reviewed the physical assessment, medical history, allergy history and patient home medications list prior to surgery/procedure/anesthetic and documented any changes. Performed airway and anesthesia risk assessments. Anesthesia Type Anesthesia Type: MAC History Source History Obtained from:: Patient and Chart Anesthesia Focused Assessment* Temperature: 97.2 F Pulse Rate: 66 Blood Pressure: 137/73 Respiratory Rate: 14 Pulse Ox: 96 Airway Assessment Mouth opens: >3 cm Mallampati Score: I Teeth Condition: Intact Neck Range of motion (ROM): Full ROM Labs Anesthesia Preop lab: CBC WBC 10.4 K/mm3 (4.4-11.0) 11/03/24 18:55 11/03/24 RBC 4.55 M/mm3 (4.2-5.4) 11/03/24 18:55 11/03/24 Hgb 14.0 g/dL (12.0-15.0) 11/03/24 18:55 11/03/24 Hct 41.0 % (37-47) 11/03/24 18:55 11/03/24 Plt Count 346 K/mm3 (150-450) 11/03/24 18:55 11/03/24 CHEMISTRY Potassium 4.1 mmol/L (3.3-5.1) 11/03/24 18:55 11/03/24 Sodium 140 mmol/L (133-145) 11/03/24 18:55 11/03/24 BUN 15 mg/dL (4-19) 11/03/24 18:55 11/03/24 Creatinine 0.76 mg/dL (0.70-1.20) 11/03/24 18:55 11/03/24 Glucose 104 mg/dL (70-99) H 11/03/24 18:55 11/03/24 POC Glucose 111 mg/dL (70-110) H 05/19/16 17:02 05/19/16 COAG PT 13.9 SECONDS (11.7-14.9) 12/10/17 14:08 Pre-Assessment Diagnosis/Proposed Procedure Planned Operative Procedure(s): cscope Anesthesia History 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 When Was Last Pacemaker Check QUESTION #4 FULL TEXT: You/Your Family Experience fever (hyperthermia) with Anesthesia Last Oral Intake Last Oral intake: Last Oral Intake NPO since 21:00 12/29/24 08:02 Meds taken in AM with sips of water? 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 Female Yes 12/27/24 12:41 HX of Motion Sickness Yes 12/27/24 12:41 HX of N/V After Surgery No 12/27/24 12:41 Non-Smoker Yes 12/27/24 12:41 Duration of Surgery greater No 12/27/24 12:41 than 60 minutes Number of Risk Factors 3 12/27/24 12:41 PONV Score Moderate Risk 12/27/24 12:41 Height & Weight Height & Weight: Anesthesia: Height & Weight Height 5 ft 1 in 12/29/24 08:02 Weight: 72 kg 12/29/24 08:02 Body Mass Index (BMI) 29.9 12/29/24 08:02 Respiratory Assessment Respiratory Assessment - stabilizer operator: Respiratory Tract Infection 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 Has anyone observed you stop breathing during sleep? STOP Results Positive 12/29/24 07:57 QUESTION #5 FULL TEXT : Do you snore loudly (louder than talking or can be heard through closed doors)? 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 Specify any problems Hx of Preganancy in last 3 N/A 12/27/24 12:41 Months Nurse Filling Out Transfusion NBUCHER 12/27/24 12:41 & Questions: Date: 12/27/24 12/27/24 12:41 Time: 12:42 12/27/24 12:41 Patient unable to answer at this time (ie. confused, unrespo /Reproduction History /Reproductive History - stabilizer operator: /Reproductive Hx- stabilizer operator Hx Now Gestational Age (in weeks): EDC: Hx Hx Para Hx Section SAB No 12/27/24 12:41 Active Medications Active Medications: Current Medications Generic Name Dose Route Start Last Admin Trade Name Freq PRN Reason Stop Dose Admin Lactated Ringer's 1,000 mls @ 15 mls/hr 12/29/24 07:45 12/29/24 08:11 IV 15 mls/hr .Q48H LEOBARDO Administration PFSH Medical History Wears glasses Elevated triglycerides with high cholesterol Bone spur Sleep apnea Leg cramps History of echocardiogram History of stress test Cardiology follow-up encounter Epistaxis Asthma Stomach ulcer Shoulder pain History of hemorrhoids Arthritis Pure hypercholesterolemia Essential (primary) hypertension Atherosclerosis of coronary artery of [place] heart without angina pectoris Secondary pulmonary arterial hypertension Dyspnea Benign paroxysmal positional vertigo Anxiety IBS (irritable bowel syndrome) Asbestos exposure Home Medications ?Medication ?Instructions ?Recorded ?Last Taken ?Type lorazepam 0.5 mg tablet 0.5 mg PO DAILY PRN PRN Anxi ety 10/18/16 12/29/24 History calcium carbonate (Calcium 500) 1,000 mg PO QDAY 10/2312/28/24 History cholecalciferol (vitamin D3) 125 5,000 unit PO QDAY 12/28/24 History mcg (5,000 unit) capsule loratadine 10 mg tablet (Allergy 10 mg PO QDAY 8 12/28/24 History Relief (loratadine)) magnesium 250 mg tablet 250 mg PO QDAY 10/23/1702/14 History omeprazole 20 mg capsule,delayed 20 mg PO QDAY PRN Hea rtburn 10/23/17 12/29/24 History release zinc gluconate 50 mg tablet 50 mg PO DAILY 07/24/21 History blood pressure monitor (Blood #1 ea 07/24/22 Unknown R x Pressure Kit) vitamins-lipotropics 200 mg-100 mg 1 tab PO DAILY 06/2412/28/24 History tablet (Ear Care) enalapril maleate 2.5 mg tablet 1.25 mg (1/2 x 2.5 mg) PO BID #90 03/23/24 Rx tabs propranolol 60 mg capsule,24 60 mg PO QDAY #90 caps 12/29/24 Rx hr,extended release ibuprofen 200 mg tablet 200 mg PO DAILY 12/06/2409/14 History rosuvastatin 5 mg tablet 5 mg PO MOWEFR 12/06/2401/14 History guaifenesin 400 mg tablet 400 mg PO DAILY 12/27/2402/14 History Allergy/AdvReac Type Severity Reaction Status Date / Time risedronate sodium (From Allergy Other Verified 12/29/24 08:00 Actonel) strawberry Allergy Hives Verified 12/29/24 08:00 fish oil AdvReac skin Verified 12/29/24 08:00 erruptions onion AdvReac Vomiting Verified 12/29/24 08:00 prednisone AdvReac Other Verified 12/29/24 08:00 propoxyphene HCl (From AdvReac Nausea/Vom/ Verified 12/29/24 08:00 Darvon) Diarrhea Thrzwkn-DNW-EmK Reductase AdvReac Other Verified 12/29/24 08:00 Inhibitor Family History Mother CVA (cerebral vascular accident) Myocardial infarction, Onset Age: 93 Breast cancer Father Myocardial infarction NE age 60 CAD (coronary artery disease) CABG x 3 Cancer Heart disease Hypertension Brother Heart disease Hypertension Surgical History History of cardiac catheterization H/O dilation and curettage (~07/22/23) S/P trigger finger release History of coronary artery stent placement (01/07/18) History of back surgery H/O tubal ligation H/O eye surgery History of tonsillectomy Social History household members: none current occupational status: retired Smoking Status: Former smoker quit date: 06/23/07 pack-years: 12 alcohol intake: current alcohol intake frequency: a few times a month substance use type: does not use caffeine: Yes Type: carbonated beverages seatbelt use: always do you feel safe at home: Yes Review of Systems (Anesthesia) ROS Narrative System reviewed and no additional complaints, except as documented. 12/29/24 0845 <Electronically signed by Hussain Garnett MD> Date _ Hussain Garnett MD Cosigner Signature: Date CC: ~ Signed [facility] Work Phone: [phone]) 649-970007-09-2025 Consult note [facility] Medical Records Department [address] [place] [address] Anesthesia Postop Eval I 12/29/24 0959 MR#: [id number] Acct: [id number] Name: MARIPOSA PIZAROR Rep #:[id number] : 1945 79 From: Rodger Multani PCP: Dr. Emily Jenkins, DO Status:RE G SD[facility] Y Race: C Location: [place] [address] Anesthesia: Postop Eval I Current Vital Signs Temperature: 97.4 F Pulse Rate: 63 Blood Pressure: 126/64 Respiratory Rate: 16 Pulse Ox: 97 Oxygen Delivery Method: Room Air Assessment Airway patent: Yes Spontaneous unlabored respirations: Yes Mental status: Asleep nausea: No Vomiting: No Anesthesia Complication: No Fluid Hydration Crystalloid volume administer (ml): 900 Total IV fluid infused: 900 Progress Note Anesthesia document: Postop Eval 1 completed: Yes 12/29/24 1000 > Date _ Rodger Villaigner Signature: Date CC: ~ Signed [facility]07-09-2025 Procedure note [facility] Medical Records Department [address] [place] [address] Operative Report - CC Letter MR#: [id number] Acct: [id number] Name: MARIPOSA PIZARRO Rep #:[id number] : 1945 79 From: Allison Roblero MD PCP: Dr. Emily Jenkins, DO Status:RE [facility] 12/29/2024 Emily Jenkins [address] [facility] [place] [address] Re : Colonoscopy procedure for Mariposa Monaemorganalex Dear Dr. Jenkins This procedure was performed on Friday, December 29, 2024. My impressions and recommendations are as follows: Impressions : - One less than 5 mm polyp in the ascending colon, removed with a hot snare. Resected and retrieved. - One less than 5 mm polyp in the sigmoid colon, removed with a cold biopsy forceps. Resected and retrieved. - The examination was otherwise normal on direct and retroflexion views. Recommendations : - Discharge patient to home. - Resume previous diet. - Continue present medications. - Await pathology results. - Repeat colonoscopy in 5 years for surveillance based on pathology results. - depending on overall health at time of possible repeat My findings are described in the full procedure note, which is enclosed. If I can be of further assistance, please feel free to contact me at Doctor phone number(s): , Work: . Sincerely, MD Allison Diallo MD 12/29/2024 9:54:20 AM This report has been signed electronically. 12/29/24953 Date _ Allison Roblero MD Cosigner Signature: Date (if indicated) CC: Dr. Emily Jenkins DO; Dr. Allison Roblero MD ~ Date Dictated: 12/29/24914 Date Transcribed: Gold Leaf Layer: TR Signed [facility]07-09-2025 Procedure note [facility] Medical Records Department [address] [place] [address] Colonoscopy Report MR#: [id number] Acct: [id number] Name: MARIPOSA PIZARRO Rep #:[id number] : 1945 79 From: Allison Roblero MD PCP: Dr. Emily Jenkins DO Status:[facility] Patient Name: Mariposa Pizarro Procedure Date: 12/29/2024 9:15 AM Date of : 1945 Age: 79 Procedure: Colonoscopy Indications: Screening for colorectal malignant neoplasm Providers: Allison Roblero MD Referring MD: Emily Jenkins Medicines: Monitored Anesthesia Care Patient Profile: This is a 79 year old female. Last Colonoscopy: more than 10 years ago. Complications: No immediate complications. Procedure: Pre-Anesthesia Assessment: - Prior to the procedure, a History and Physical was performed, and patient medications and allergies were reviewed. The patient's tolerance of previous anesthesia was also reviewed. The risks and benefits of the procedure and the sedation options and risks were discussed with the patient. All questions were answered, and informed consent was obtained. Prior Anticoagulants: The patient has taken no anticoagulant or antiplatelet agents. ASA Grade Assessment: Per anesthesia. After reviewing the risks and benefits, the patient was deemed in satisfactory condition to undergo the procedure. After I obtained informed consent, the scope was passed under direct vision. Throughout the procedure, the patient's blood pressure, pulse, and oxygen saturations were monitored continuously. The Colonoscope was introduced through the anus and advanced to the cecum, identified by the appendiceal orifice, ileocecal valve and palpation. The colonoscopy was performed without difficulty. The patient tolerated the procedure well. The quality of the bowel preparation was good. Scope In: 9:22:47 AM Scope Withdrawal Time 0 hours 19 minutes 9 seconds Scope Out: 9:48:41 AM Total Procedure Duration Time 0 hours 25 minutes 54 seconds Findings: The perianal and digital rectal examinations were normal. A less than 5 mm polyp was found in the ascending colon. The polyp was semi-sessile. The polyp was removed with a hot snare. Resection and retrieval were complete. A less than 5 mm polyp was found in the sigmoid colon. The polyp was sessile. The polyp was removed with a cold biopsy forceps. Resection and retrieval were complete. The exam was otherwise without abnormality on direct and retroflexion views. Impression: - One less than 5 mm polyp in the ascending colon, removed with a hot snare. Resected and retrieved. - One less than 5 mm polyp in the sigmoid colon, removed with a cold biopsy forceps. Resected and retrieved. - The examination was otherwise normal on direct and retroflexion views. Recommendation: - Discharge patient to home. - Resume previous diet. - Continue present medications. - Await pathology results. - Repeat colonoscopy in 5 years for surveillance based on pathology results. - depending on overall health at time of possible repeat Procedure Code(s): --- Professional --- 82389, PT, Colonoscopy, flexible; with removal of tumor(s), polyp(s), or other lesion(s) by snare technique 48218, 59, Colonoscopy, flexible; with biopsy, single or multiple Diagnosis Code(s): --- Professional --- Z12.11, Encounter for screening for malignant neoplasm of colon D12.2, Benign neoplasm of ascending colon D12.5, Benign neoplasm of sigmoid colon CPT copyright 2021 [employer]. All rights reserved. The codes documented in this report are preliminary and upon aircraft cleaning supervisor review may be revised to meet current compliance requirements. MD Allison Diallo MD 12/29/2024 9:54:20 AM This report has been signed electronically. Number of Addenda: 0 Note Initiated On: 12/29/2024 9:15 AM 12/29/2454 Date _ Allison Roblero MD Cosigner Signature: Date (if indicated) CC: Dr. Emily Jenkins, DO; Dr. Allison Roblero MD ~ Date Dictated: 12/29/24914 Date Transcribed: Gold Leaf Layer: TR Signed [facility]07-09-2025 History and physical note [facility] Medical Records Department [address] [facility] [place] [address] History & Physical Exam 12/29/24 0755 MR#: [id number] Acct: [id number] Name: MARIPOSA PIZARRO Rep #:[id number] : 1945 79 From: Allison Roblero MD PCP: Dr. Emily Jenkins DO Status:[facility] Location: [place] [address] HPI - General General Date of Service: 12/29/24 HPI Narrative MARIPOSA PIZARRO, is a 79 F who presents for screening colonoscopy. Patient denies any changes since office visit. Office visit 11/12/2024 HPI HPI: 79-year-old female presents due to left groin pain. Patient was seen by her PCPas well as in the ERfor this. Patient had an CAT scan did not show any obviousinguinal hernias. Patient states that shehas had this left groin pain for about 4 weeks occurred when she was walking. Patient states she gets it daily worse with lifting she does not really notice a bulge. Patient does take Tylenol 500 mg p.o. once a day. Patient's daughter also gave a history of having left- sided pain similar about a year ago and she was not even able to walk with that. Patient did admit to having pain down her leg atthat time as well. When asking further patient states she does occasionally have pain down her leg with this left-sided pain. Patient can get occasional nausea when the pain gets worse. Typically thepain is a 1?2/10 but can occasionally get to a 10/10 but does resolve quickly with rest. Patient was last colonoscopy was about 11 years ago denies any family history ofcolon cancer. Patient has bowel movements daily occasionally has some bright red blood due to known hemorrhoids. Patient states he occasionally does get constipated and does take MiraLAX as needed. Patient was initiallyscheduled for open access but canceled due to a UTI prior to procedure. [facility] Medical History Wears glasses Elevated triglycerides with high cholesterol Bone spur Sleep apnea Leg cramps History of echocardiogram History of stress test Cardiology follow-up encounter Epistaxis Asthma Stomach ulcer Shoulder pain History of hemorrhoids Arthritis Pure hypercholesterolemia Essential (primary) hypertension Atherosclerosis of coronary artery of [place] heart without angina pectoris Secondary pulmonary arterial hypertension Dyspnea Benign paroxysmal positional vertigo Anxiety IBS (irritable bowel syndrome) Asbestos exposure Home Medications ?Medication ?Instructions ?Recorded ?Last Taken ?Type lorazepam 0.5 mg tablet 0.5 mg PO DAILY PRN PRN Anxi ety 10/18/16 12/29/24 History calcium carbonate (Calcium 500) 1,000 mg PO QDAY 10/2312/28/24 History cholecalciferol (vitamin D3) 125 5,000 unit PO QDAY 12/28/24 History mcg (5,000 unit) capsule loratadine 10 mg tablet (Allergy 10 mg PO QDAY 8 12/28/24 History Relief (loratadine)) magnesium 250 mg tablet 250 mg PO QDAY 10/23/1702/14 History omeprazole 20 mg capsule,delayed 20 mg PO QDAY PRN Hea rtburn 10/23/17 12/29/24 History release zinc gluconate 50 mg tablet 50 mg PO DAILY 07/24/21 History blood pressure monitor (Blood #1 ea 07/24/22 Unknown R x Pressure Kit) vitamins-lipotropics 200 mg-100 mg 1 tab PO DAILY 06/2412/28/24 History tablet (Ear Care) enalapril maleate 2.5 mg tablet 1.25 mg (1/2 x 2.5 mg) PO BID #90 03/23/24 12/28/24 Rx tabs propranolol 60 mg capsule,24 60 mg PO QDAY #90 caps 12/29/24 Rx hr,extended release ibuprofen 200 mg tablet 200 mg PO DAILY 12/06/2409/14 History rosuvastatin 5 mg tablet 5 mg PO MOWEFR 12/06/24 07/0 01/14 History guaifenesin 400 mg tablet 400 mg PO DAILY 12/27/2402/14 History Allergy/AdvReac Type Severity Reaction Status Date / Time risedronate sodium (From Allergy Other Verified 12/29/24 08:00 Actonel) strawberry Allergy Hives Verified 12/29/24 08:00 fish oil AdvReac skin Verified 12/29/24 08:00 erruptions onion AdvReac Vomiting Verified 12/29/24 08:00 prednisone AdvReac Other Verified 12/29/24 08:00 propoxyphene HCl (From AdvReac Nausea/Vom/ Verified 12/29/24 08:00 Darvon) Diarrhea Wynrtrz-[id number]-[id number] Reductase AdvReac Other Verified 12/29/24 08:00 Inhibitor Family History Mother CVA (cerebral vascular accident) Myocardial infarction, Onset Age: 93 Breast cancer Father Myocardial infarction NE age 60 CAD (coronary artery disease) CABG x 3 Cancer Heart disease Hypertension Brother Heart disease Hypertension Surgical History History of cardiac catheterization H/O dilation and curettage (~07/22/23) S/P trigger finger release History of coronary artery stent placement (01/07/18) History of back surgery H/O tubal ligation H/O eye surgery History of tonsillectomy Social History household members: none current occupational status: retired Smoking Status: Former smoker quit date: 06/23/07 pack-years: 12 alcohol intake: current alcohol intake frequency: a few times a month substance use type: does not use caffeine: Yes Type: carbonated beverages seatbelt use: always do you feel safe at home: Yes Past Medical/Surgical History Planned Operation Planned Operative Procedure(s): cscope Previous Hospitalizations/Surgeries HX Hospitalizations: No HX of Surgeries: Eye surgery, tubal ligation, back surgery, tonsillectomy Any Problems With Anesthesia: No You/Your Family Experience Fever (Hyperthermia) With Anes: No Cholinesterase deficiency: No Cardiovascular Hx Chest Pain within Last 2 months: Yes Hx of Irregular Heartbeat and/or Afib: No Hx Heart Attack: No Hx Congestive Heart Failure: No Hx Rheumatic Fever: No Hx Hypertension: Yes Hx Internal Defibrillator: No Hx Pacemaker: No Hx Cardiac Catheterization: No Hx Cardiac Surgery/Stents/Etc.: No Hx Stress Test: Yes Hx Pain in Legs when Walking/Leg Cramps: No Respiratory Chronic Cough: No HX of Shortness of Breath: No Hx Chronic Obstructive Pulmonary Disease (COPD): No Hx Asthma: Yes Hx Emphysema: No Hx Sleep Apnea: Yes CPAP: No BIPAP: No Hx Respiratory Tract Infection/Cold (presently): No Result (for STOP score): Positive Hx Smoking: Yes Smoking Status: Former smoker Gastrointestinal Hx Gastrointestinal Bleed: No Hx Ulcer: No Difficulty Chewing/Swallowing: No Special diet followed at home: No Hx Unplanned Weight Loss of 20#: No HX Unplanned Weight Gain of 20#: No Neurological Hx Seizures: No HX Syncope/Blackout Spells/Unconsciousness: No Hx Multiple Sclerosis: No Hx Parkinson's Disease: No Hx Head/Neck Injury: Yes Hx Headaches: No Hx Back Injury/Pain: Yes Does patient have nerve stimulator: No Blood Disorder Hx Deep Vein Thrombosis: No Hx High Cholesterol: No Hx Hepatitis: No Hx Anemia: No Reproduction Is Patient Lactating: No Genitourinary Hx Renal Disease: No Hx Dialysis: No Musculoskeletal Hx 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) Hx Gout: No Endocrine Hx Diabetes: Yes (PREDIABETIC) Insulin: No Thyroid Disease: No Psycho/Social Hx Substance Use: No Hx Alcohol Use: Yes Hx Anxiety: Yes Hx Depression: No Hx Dementia: No Miscellaneous Hx Cancer: No Recent Exposure to Contagious Disease: No Allergies risedronate sodium (From Actonel) Allergy (Verified 12/29/24 08:00) Other strawberry Allergy (Verified 12/29/24 08:00) Hives fish oil Adverse Reaction (Verified 12/29/24 08:00) skin erruptions onion Adverse Reaction (Verified 12/29/24 08:00) Vomiting prednisone Adverse Reaction (Verified 12/29/24 08:00) Other suicidal ideation propoxyphene HCl (From Darvon) Adverse Reaction (Verified 12/29/24 08:00) Nausea/Vom/Diarrhea [id number]-UmQ Reductase Inhibitor Adverse Reaction (Verified 12/29/24 08:00) Other ABDOMINAL PAIN Discharge Is Pt Admitted From a Senior Living, or a Assisted: No After D/C, Where Do you Plan to Go: Return Home From the [facility] History Number of Risk Factors: 4 Physical Exam Const alert, oriented x3 and no apparent distress HEENT normocephalic and head/scalp atraumatic Resp normal respiratory effort Cardio regular rate GI soft to palpation and non-tender; Negative for non-distended Palpation: Negative for guarding Extremity no clubbing, cyanosis or edema Skin no rashes or lesions noted Neuro CN's II-XII intact bilaterally Psych mental status grossly normal Assessment & Plan Assessment/Plan (1) Screening for colon cancer: Surgery Risks - Colonoscopy I discussed with the patient the risks of the procedure: Yes Risks Include but are not Limited To: Risks include but are not limited to: Bleeding, perforation requiring further surgery, inability to complete colonoscopy requiring barium enema. 12/29/24 09 Cosigner Signature (if applicable): CC: Dr. Emily Jenkins DO; Dr. Allison Roblero MD~ Signed [facility]07-09-2025 Consult note [facility] Medical Records Department [address] [place] [address] Pre-Anesthesia Evaluation 12/29/24 0829 MR#: [id number] Acct: [id number] Name: MARIPOSA PIZARRO Rep #:[id number] : 1945 79 From: Hussain Rodriguez PCP: Dr. Emily Jenkins DO Status:RE G SDC Y Race: C Location: [place] [address] ASA Classification* ASA Classification ASA Classification: 2 Assessment & Plan Anesthesia* Anesthesia Assessment Anesthesia Assessment: Discussed sedation and/or anesthesia options, risks, benefits, and alternatives with patient/parents/legal guardian/POA. Questions invited. The patient/parents/legal guardian/POA seems to understand and agrees to proceedwith anesthesia plan. Reviewed the physical assessment, medical history, allergy history and patient home medications list prior to surgery/procedure/anesthetic and documented any changes. Performed airway and anesthesia risk assessments. Anesthesia Type Anesthesia Type: MAC History Source History Obtained from:: Patient and Chart Anesthesia Focused Assessment* Temperature: 97.2 F Pulse Rate: 66 Blood Pressure: 137/73 Respiratory Rate: 14 Pulse Ox: 96 Airway Assessment Mouth opens: >3 cm Mallampati Score: I Teeth Condition: Intact Neck Range of motion (ROM): Full ROM Labs Anesthesia Preop lab: CBC WBC 10.4 K/mm3 (4.4-11.0) 11/03/24 18:55 11/03/24 RBC 4.55 M/mm3 (4.2-5.4) 11/03/24 18:55 11/03/24 Hgb 14.0 g/dL (12.0-15.0) 11/03/24 18:55 11/03/24 Hct 41.0 % (37-47) 11/03/24 18:55 11/03/24 Plt Count 346 K/mm3 (150-450) 11/03/24 18:55 11/03/24 CHEMISTRY Potassium 4.1 mmol/L (3.3-5.1) 11/03/24 18:55 11/03/24 Sodium 140 mmol/L (133-145) 11/03/24 18:55 11/03/24 BUN 15 mg/dL (4-19) 11/03/24 18:55 11/03/24 Creatinine 0.76 mg/dL (0.70-1.20) 11/03/24 18:55 11/03/24 Glucose 104 mg/dL (70-99) H 11/03/24 18:55 11/03/24 POC Glucose 111 mg/dL (70-110) H 05/19/16 17:02 05/19/16 COAG PT 13.9 SECONDS (11.7-14.9) 12/10/17 14:08 Pre-Assessment Diagnosis/Proposed Procedure Planned Operative Procedure(s): cscope Anesthesia History 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 When Was Last Pacemaker Check QUESTION #4 FULL TEXT: You/Your Family Experience fever (hyperthermia) with Anesthesia Last Oral Intake Last Oral intake: Last Oral Intake NPO since 21:00 12/29/24 08:02 Meds taken in AM with sips of water? 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 Female Yes 12/27/24 12:41 HX of Motion Sickness Yes 12/27/24 12:41 HX of N/V After Surgery No 12/27/24 12:41 Non-Smoker Yes 12/27/24 12:41 Duration of Surgery greater No 12/27/24 12:41 than 60 minutes Number of Risk Factors 3 12/27/24 12:41 PONV Score Moderate Risk 12/27/24 12:41 Height & Weight Height & Weight: Anesthesia: Height & Weight Height 5 ft 1 in 12/29/24 08:02 Weight: 72 kg 12/29/24 08:02 Body Mass Index (BMI) 29.9 12/29/24 08:02 Respiratory Assessment Respiratory Assessment - stabilizer operator: Respiratory Tract Infection 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 Has anyone observed you stop breathing during sleep? STOP Results Positive 12/29/24 07:57 QUESTION #5 FULL TEXT : Do you snore loudly (louder than talking or can be heard through closeddoors)? 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 Specify any problems Hx of Preganancy in last 3 N/A 12/27/24 12:41 Months Nurse Filling Out Transfusion NBUCHER 12/27/24 12:41 & Questions: Date: 12/27/24 12/27/24 12:41 Time: 12:42 12/27/24 12:41 Patient unable to answer at this time (ie. confused, unrespo /Reproduction History /Reproductive History - stabilizer operator: /Reproductive Hx- stabilizer operator Hx Now Gestational Age (in weeks): EDC: Hx Hx Para Hx Section SAB No 12/27/24 12:41 Active Medications Active Medications: Current Medications Generic Name Dose Route Start Last Admin Trade Name Freq PRN Reason Stop Dose Admin Lactated Ringer's 1,000 mls @ 15 mls/hr 12/29/24 07:45 12/29/24 08:11 IV 15 mls/hr .Q48H LEOBARDO Administration PFSH Medical History Wears glasses Elevated triglycerides with high cholesterol Bone spur Sleep apnea Leg cramps History of echocardiogram History of stress test Cardiology follow-up encounter Epistaxis Asthma Stomach ulcer Shoulder pain History of hemorrhoids Arthritis Pure hypercholesterolemia Essential (primary) hypertension Atherosclerosis of coronary artery of [place] heart without angina pectoris Secondary pulmonary arterial hypertension Dyspnea Benign paroxysmal positional vertigo Anxiety IBS (irritable bowel syndrome) Asbestos exposure Home Medications ?Medication ?Instructions ?Recorded ?Last Taken ?Type lorazepam 0.5 mg tablet 0.5 mg PO DAILY PRN PRN Anxi ety 10/18/16 12/29/24 History calcium carbonate (Calcium 500) 1,000 mg PO QDAY 10/2312/28/24 History cholecalciferol (vitamin D3) 125 5,000 unit PO QDAY 12/28/24 History mcg (5,000 unit) capsule loratadine 10 mg tablet (Allergy 10 mg PO QDAY 8 12/28/24 History Relief (loratadine)) magnesium 250 mg tablet 250 mg PO QDAY 10/23/1702/14 History omeprazole 20 mg capsule,delayed 20 mg PO QDAY PRN Hea rtburn 10/23/17 12/29/24 History release zinc gluconate 50 mg tablet 50 mg PO DAILY 07/24/21 History blood pressure monitor (Blood #1 ea 07/24/22 Unknown R x Pressure Kit) vitamins-lipotropics 200 mg-100 mg 1 tab PO DAILY 06/2412/28/24 History tablet (Ear Care) enalapril maleate 2.5 mg tablet 1.25 mg (1/2 x 2.5 mg) PO BID #90 03/23/24 Rx tabs propranolol 60 mg capsule,24 60 mg PO QDAY #90 caps 12/29/24 Rx hr,extended release ibuprofen 200 mg tablet 200 mg PO DAILY 12/06/2409/14 History rosuvastatin 5 mg tablet 5 mg PO MOWEFR 12/06/2401/14 History guaifenesin 400 mg tablet 400 mg PO DAILY 12/27/2402/14 History Allergy/AdvReac Type Severity Reaction Status Date / Time risedronate sodium (From Allergy Other Verified 12/29/24 08:00 Actonel) strawberry Allergy Hives Verified 12/29/24 08:00 fish oil AdvReac skin Verified 12/29/24 08:00 erruptions onion AdvReac Vomiting Verified 12/29/24 08:00 prednisone AdvReac Other Verified 12/29/24 08:00 propoxyphene HCl (From AdvReac Nausea/Vom/ Verified 12/29/24 08:00 Darvon) Diarrhea Iydadli-MSS-YjB Reductase AdvReac Other Verified 12/29/24 08:00 Inhibitor Family History Mother CVA (cerebral vascular accident) Myocardial infarction, Onset Age: 93 Breast cancer Father Myocardial infarction [place] age 60 CAD (coronary artery disease) CABG x 3 Cancer Heart disease Hypertension Brother Heart disease Hypertension Surgical History History of cardiac catheterization H/O dilation and curettage (~07/22/23) S/P trigger finger release History of coronary artery stent placement (01/07/18) History of back surgery H/O tubal ligation H/O eye surgery History of tonsillectomy Social History household members: none current occupational status: retired Smoking Status: Former smoker quit date: 06/23/07 pack-years: 12 alcohol intake: current alcohol intake frequency: a few times a month substance use type: does not use caffeine: Yes Type: carbonated beverages seatbelt use: always do you feel safe at home: Yes Review of Systems (Anesthesia) ROS Narrative System reviewed and no additional complaints, except as documented. 12/29/24 0845 MD> Date _ Hussain Garnett MD [facility] Signature: Date CC: ~ Signed [facility]07-09-2025 [facility] Medical Records Department [address] [place] [address] History Physical Exam 12/29/24 0755 MR#: [id number] Acct: [id number] Name: MARIPOSA PIZARRO Rep #: [id number] : 1945 79 From: Allison Roblero MD PCP: Dr. Emily Jenkins, DO Status:[facility] Location: [facility] AC12-1 HPI - General General Date of Service: 12/29/24 HPI Narrative MARIPOSA PIZARRO, is a 79 F who presents for screening colonoscopy. Patient denies any changes since office visit. Office visit 11/12/2024 HPI HPI: 79-year-old female presents due to left groin pain. Patient was seen by her PCP as well as in the ER for this. Patient had an CAT scan did not show any obvious inguinal hernias. Patient states that she has had this left groin pain for about 4 weeks occurred when she was walking. Patient states she gets it daily worse with lifting she does not really notice a bulge. Patient does take Tylenol 500 mg p.o. once a day. Patient's daughter also gave a history of having left-sided pain similar about a year ago and she was not even able to walk with that. Patient did admit to having pain down her leg at that time as well. When asking further patient states she does occasionally have pain down her leg with this left-sided pain. Patient can get occasional nausea when the pain gets worse. Typically the pain is a 1???2/10 but can occasionally get to a 10/10 but does resolve quickly with rest. Patient was last colonoscopy was about 11 years ago denies any family history of colon cancer. Patient has bowel movements daily occasionally has some bright red blood due to known hemorrhoids. Patient states he occasionally does get constipated and does take MiraLAX as needed. Patient was initially scheduled for open access but canceled due to a UTI prior to procedure. [facility] Medical History Wears glasses Elevated triglycerides with high cholesterol Bone spur Sleep apnea Leg cramps History of echocardiogram History of stress test Cardiology follow-up encounter Epistaxis Asthma Stomach ulcer Shoulder pain History of hemorrhoids Arthritis Pure hypercholesterolemia Essential (primary) hypertension Atherosclerosis of coronary artery of [place] heart without angina pectoris Secondary pulmonary arterial hypertension Dyspnea Benign paroxysmal positional vertigo Anxiety IBS (irritable bowel syndrome) Asbestos exposure Home Medications ???Medication ???Instructions ???Recorded ???Last Taken ???Type lorazepam 0.5 mg tablet 0.5 mg PO DAILY PRN PRN Anxiety 12/29/24 History calcium carbonate (Calcium 500) 1,000 mg PO QDAY 10/23/17 12/28/24 History cholecalciferol (vitamin D3) 125 5,000 unit PO QDAY 10/23/17 History mcg (5,000 unit) capsule loratadine 10 mg tablet (Allergy 10 mg PO QDAY 10/23/17 12/28/24 Hi story Relief (loratadine)) magnesium 250 mg tablet 250 mg PO QDAY 10/23/17 12/28/24 H istory omeprazole 20 mg capsule,delayed 20 mg PO QDAY PRN Heartburn 12/29/24 History release zinc gluconate 50 mg tablet 50 mg PO DAILY 07/24/21 12/28/24 H istory blood pressure monitor (Blood #1 ea 07/24/22 Unknown Rx Pressure Kit) vitamins-lipotropics 200 mg-100 mg 1 tab PO DAILY 07/15/23 12/28/24 History tablet (Ear Care) enalapril maleate 2.5 mg tablet 1.25 mg (1/2 x 2.5 mg) PO BID #90 03/23/24 12/28/24 Rx tabs propranolol 60 mg capsule,24 60 mg PO QDAY #90 caps 11/02/24 Rx hr,extended release ibuprofen 200 mg tablet 200 mg PO DAILY 12/06/24 12/23/24 History rosuvastatin 5 mg tablet 5 mg PO MOWEFR 12/06/24 12/27/24 H istory guaifenesin 400 mg tablet 400 mg PO DAILY 12/27/24 12/28/24 History Allergy/AdvReac Type Severity Reaction Status Date / Time risedronate sodium (From Allergy Other Verified 12/29/24 08:00 Actonel) strawberry Allergy Hives Verified 12/29/24 08:00 fish oil AdvReac skin Verified 12/29/24 08:00 erruptions onion AdvReac Vomiting Verified 12/29/24 08:00 prednisone AdvReac Other Verified 12/29/24 08:00 propoxyphene HCl (From AdvReac Nausea/Vom/ Verified 12/29/24 08:00 Darvon) Diarrhea Qpkiufj-NPF-HhP Reductase AdvReac Other Verified 12/29/24 08:00 Inhibitor Family History Mother CVA (cerebral vascular accident) Myocardial infarction, Onset Age: 93 Breast cancer Father Myocardial infarction NE age 60 CAD (coronary artery disease) CABG x 3 Cancer Heart disease Hypertension Brother Heart disease Hypertension Surgical History History of cardiac catheterization H/O dilation and curettage ( 07/22/23) S/P trigger finger release History of coronary artery stent placement (more content not included)...[facility]05-23-2025 Evaluation note* Diagnosis Onset Date Resolution Status Admit Date LLQ abdominal pain acute November 122024 9:32am Essential (primary) hypertension chr onic December 06, 2024 11:24am History of coronary artery s tent placement January 07, 2018 chronic December 06, 2024 11:24am Pure hypercholesterolemia chronic December 06, 2024 11:24am [facility] Work Phone: 1(854) 386-777305-23-2025 Evaluation note* Diagnosis Onset Date Resolution Status Admit Date LLQ abdominal pain acute November 122024 9:32am Essential (primary) hypertension chr onic December 06, 2024 11:24am History of coronary artery s tent placement January 07, 2018 chronic December 06, 2024 11:24am Pure hypercholesterolemia chronic December 06, 2024 11:24am Screening for colon cancer acute December 29, 2024 7:39am [facility] Work Phone: [phone] 941-791005-14-2025 Discharge summary [facility] Medical Records Department [address] [place] [address] Emergency Department Summary 11/03/24 MR#: [id number] Acct: [id number] Name: MARIPOSA PIZARRO Rep #:[id number] : 1945 79 From: Jung Brenner PCP: Dr. Emily Jenkins, DO Status:RE G ER Location: ED HPI History of Present Illness Chief Complaint: Lower Extremity Injury PFSH PFS Medical History Anxiety Arthritis Asbestos exposure Asthma Atherosclerosis of coronary artery of [place] heart without angina pectoris Benign paroxysmal positional vertigo Bone spur Cardiology follow-up encounter Dyspnea Elevated triglycerides with high cholesterol Epistaxis Essential (primary) hypertension History of echocardiogram History of hemorrhoids History of stress test IBS (irritable bowel syndrome) Leg cramps Pure hypercholesterolemia Secondary pulmonary arterial hypertension Shoulder pain Sleep apnea Stomach ulcer Wears glasses Home Medications ?Medication ?Instructions ?Recorded ?Last Taken ?Type lorazepam 0.5 mg tablet 0.5 mg PO DAILY PRN PRN Anxi ety 10/18/16 07/22/23 History calcium carbonate (Calcium 500) 1,000 mg PO QDAY 10/23 Unknown History cholecalciferol (vitamin D3) 125 5,000 unit PO QDAY Unknown History mcg (5,000 unit) capsule loratadine 10 mg tablet (Allergy 10 mg PO QDAY 8 Unknown History Relief (loratadine)) magnesium 250 mg tablet 250 mg PO QDAY 10/23/17 Unkn own History omeprazole 20 mg capsule,delayed 20 mg PO QDAY PRN Hea rtburn 10/23/17 07/22/23 History release zinc gluconate 50 mg tablet 50 mg PO DAILY 07/24/21 Un known History blood pressure monitor (Blood #1 ea 07/24/22 Unknown R x Pressure Kit) niacin 100 mg tablet 100 mg PO .as needed 3 Unknown History vitamins-lipotropics 200 mg-100 mg 1 tab PO DAILY 06/24 09/13 Unknown History tablet (Ear Care) nitrofurantoin 100 mg PO Q12 09/04/23 Unkno wn History monohydrate/macrocrystals 100 mg capsule rosuvastatin 5 mg tablet 5 mg PO .3xweek #36 tabs Unknown Rx enalapril maleate 2.5 mg tablet 1.25 mg (1/2 x 2.5 mg) PO BID #90 03/23/24 Unknown Rx tabs propranolol 60 mg capsule,24 60 mg PO QDAY #90 caps Unknown Rx hr,extended release Allergy/AdvReac Type Severity Reaction Status Date / Time risedronate sodium (From Allergy Other Verified 11/03/24 17:28 Actonel) strawberry Allergy Hives Verified 11/03/24 17:28 fish oil AdvReac skin Verified 11/03/24 17:28 erruptions onion AdvReac Vomiting Verified 11/03/24 17:28 propoxyphene HCl (From AdvReac Nausea/Vom/ Verified 11/03/24 17:28 Darvon) Diarrhea Mrsrsqr-TEZ-XhD Reductase AdvReac Other Verified 11/03/24 17:28 Inhibitor Family History Mother CVA (cerebral vascular accident) Myocardial infarction, Onset Age: 93 Breast cancer Father Myocardial infarction NE age 60 CAD (coronary artery disease) CABG x 3 Cancer Heart disease Hypertension Brother Heart disease Hypertension Surgical History H/O dilation and curettage H/O eye surgery H/O tubal ligation History of back surgery History of coronary artery stent placement (01/07/18) History of tonsillectomy S/P trigger finger release Social History household members: none current occupational status: retired Smoking Status: Former smoker quit date: 06/23/07 pack-years: 12 alcohol intake: current alcohol intake frequency: a few times a month substance use type: does not use caffeine: Yes Type: carbonated beverages seatbelt use: always do you feel safe at home: Yes EXAM Physical Exam Const Vital Signs: 11/03/24 17:28 11/03/24 21:28 Temperature 97.9 F 98.1 F Temperature Source Oral Oral Pulse Rate 76 62 Respiratory Rate 16 18 Blood Pressure 177/76 H 162/74 H Blood Pressure Mean 109 103 Pulse Ox 98 95 Oxygen Delivery Method Room Air Room Air [facility] MDM Narrative Medical decision making narrative: HISTORY OF PRESENT ILLNESS: Chief complaint: Left groin pain 79-year-old female history of hemorrhoids, anxiety and hypertension, hyperlipidemia presents with left groin pain. Notes started 1 week ago. No falls. No pain with movement of the hip. Notes some nausea and belly pain. Noshe thinks it is a hernia. Last bowel movement was yesterday. No melena hematoc hezia. No vomiting. Does note she was recently treated for UTI 2 weeks ago. Denies dysuria, hematuria REVIEW OF SYSTEMS: Pertinent positives: Left groin pain, nausea Pertinent negatives: Constipation PHYSICAL EXAM: Nursing triage notes reviewed, Vital signs reviewed Constitutional: please see mdm HENT: MMM Eyes: Pupils equal round and reactive to light, Extraocular muscles intact Neck: No stridor, no JVD, full neck ROM Lungs: Clear to auscultation, No wheezing or rales. No increased work of breathing, no conversational dyspnea, no accessory muscle use, no nasal flaring. No respiratory distress noted Heart: Regular rate and rhythm, No murmurs, No rubs and No gallops, 2+ distal pulses (radial, femoral, posterior tibial) in all extremities Abdomen: Soft, there is no tenderness, rigidity, rebound or guarding, no obviousperitoneal signs, no palpable pulsatile abdominal masses, no auscultated abdominal bruit : No CVAT Extremities: No edema Neuro: No new focal neurological deficits, cranial nerves II through XII intact,5/5 strength in allpresent extremities. Intact sensation to light touch in all present extremities, 2+ reflexes bilateral patella tendons. Skin: No rash or lesions noted MEDICAL DECISION MAKING: Chief Complaint: please see [facility] External records reviewed: Reviewed prior imaging. Factors affecting care:As per [facility] Social determinants of health: none History obtained from others: none Consults: none [facility] Narrative: Patient was initially hemodynamically stable, afebrile and nontoxic-appearing. Exam with freely reducible hernia left inguinal region. No obvious peritoneal signs. I considered the following differential diagnosis: AAA, small bowel obstruction,abdominal perforation, appendicitis, pancreatitis, hepatobiliary pathology (acute cholecystitis), mesenteric ischemia, pathology (ie nephrolithiasis, pyelonephritis). ALL IMAGES (IF OBTAINED) HAVE BEEN PERSONALLY REVIEWED AND INTERPRETED BY MYSELF. X-ray of the patient's hip and pelvis is read and reviewed person myself show noevidence obvious bony abnormality Lactate is wnl indicating no end-organ hypoperfusion and/or hypoxia. CBC without leukocytosis, severe anemia, no thrombocytopenia. Urinalysis shows no evidence of urinary inflammation suggestive of UTI CMP without evidence of acute kidney injury, significant electrolyte abnormality, anion gap to suggest end organ hypo-perfusion, no evidence of metabolic acidosis with a normal bicarbonate, no evidence of hepatobiliary obstructive pathology. Lipase slightly elevated but not consistent with acute pancreatitis CT scan abdomen pelvis shows no evidence of obvious incarcerated or strangulatedhernia, no obvious inguinal hernia, no obvious diverticulitis The synthesis of the patient's history, physical exam, labs images suggest no acute life-limiting etiology. No clear etiology to explain patient's symptoms. Could be osteoarthritis. Instructed on Tylenol ibuprofen. Instructed on PCP follow-up. The patient and/or family, caregivers express understanding. The patient and/orfamily, caregivers agrees with the plan. Shared decision making: I will have a discussion with the patient and or visitors regarding risk/benefits of further testing or admission. They will be made aware of of the risk/benefits inherent in this decision they will be given the opportunity to voice understanding. Total critical care time today provided was at least 0 minutes. This excludes separately billable procedures. Critical care time (if documented) is secondary to the patient having high probability ofclinically significant/life threatening deterioration in the patient's condition which required my urgent intervention. Impression: 1. Left lower quad abdominal pain 2. Left groin pain 3. Left hip pain 4. Left hip osteoarthritis Dispo: Discharge home This note was generated with [employer] dictation software. It may contain incorrectwords, spelling, and punctuation that were not noted in review of the chart prior to signing. Lab Data Labs: Laboratory Results - last 24 hr 11/03/24 11/03/24 18:55 19:09 WBC 10.4 RBC 4.55 Hgb 14.0 Hct 41.0 MCV 90.1 MCH 30.8 MCHC 34.1 RDW Std Deviation 40.6 RDW Coeff of Kurtis 12.3 Plt Count 346 MPV 9.2 Immature Gran % (Auto) 0.400 Neut % (Auto) 51.5 Lymph % (Auto) 37.0 [place] % (Auto) 6.7 Eos % (Auto) 3.9 Baso % (Auto) 0.5 Absolute Neuts (auto) 5.4 Absolute Lymphs (auto) 3.86 Nucleated RBC % 0 Sodium 140 Potassium 4.1 Chloride 103 Carbon Dioxide 28.1 Anion Gap 9 BUN 15 Creatinine 0.76 Estim Creat Clear Calc 52.44 Est GFR (MDRD) Non-Af 80 BUN/Creatinine Ratio 19.7 Glucose 104 H Lactic Acid 1.1 Calcium 10.4 Total Bilirubin 0.28 AST 23 ALT 29 Alkaline Phosphatase 71 Total Protein 7.3 Albumin 4.2 Globulin 3.1 Albumin/Globulin Ratio 1.3 Lipase 82 H Urine Color Yellow Urine Clarity Sl. Cloudy Urine pH 7.0 Ur Specific [place] 1.015 Urine Protein 15 H Urine Glucose (UA) Normal Urine Ketones Negative Urine Occult Blood Negative Urine Nitrite Negative Urine Bilirubin Negative Urine Urobilinogen Normal Ur Leukocyte Esterase 100 H Urine RBC 0-5 SEEN Urine WBC 10-25 SEEN Ur Squamous Epith Cells 0-5 SEEN Urine Bacteria 0 SEEN Urine Mucus 0 SEEN Radiography Diagnostic Testing: Clinical Impression(s) from Imaging Studies Abdomen/Pelvis CT 11/03/24 20:20 IMPRESSION: 1. No bowel obstruction or pneumoperitoneum. 2. Small esophageal hiatal hernia. 3. Hepatomegaly with fatty infiltration. 4. Umbilical hernia containing fat. Reading Location: [facility] Hip/Pelvis X-Ray 11/03/24 21:24 IMPRESSION: See above Reading [facility] Triage Chief Complaint: Lower Extremity Injury ED Provider: Jung Mckeon Dx/Rx/DC Orders Instructions: Abdominal Pain Prescriptions: No Action loratadine [Allergy Relief (loratadine)] 10 mg tablet 10 mg PO QDAY omeprazole 20 mg capsule,delayed release(DR/EC) 20 mg PO QDAY PRN (Reason: Heartburn) cholecalciferol (vitamin D3) 5,000 unit capsule 5,000 unit PO QDAY calcium carbonate [Calcium 500] 500 mg calcium (1,250 mg) tablet 1,000 mg PO QDAY magnesium 250 mg tablet 250 mg PO QDAY zinc gluconate 50 mg tablet 50 mg PO DAILY niacin 100 mg tablet 100 mg PO .as needed (DME) blood pressure monitor [Blood Pressure Kit] Kit See Rx Instructions .Route Qty: 1 0RF Rx Instructions: As directed nitrofurantoin monohyd/m-cryst 100 mg capsule 100 mg PO Q12 lorazepam 0.5 MG tablet 0.5 mg PO DAILY PRN PRN (Reason: Anxiety) Ear Care 200-100 mg tablet 1 tab PO DAILY rosuvastatin 5 mg tablet 5 mg PO .3xweek Qty: 36 3RF enalapril maleate 2.5 mg tablet 1.25 mg PO BID Qty: 90 3RF propranolol 60 mg capsule,extended release 24 hr 60 mg PO QDAY Qty: 90 3RF Primary Care Provider: Emily Jenkins Referrals: Emily Jenkins DO [Primary Care Provider] - Activity Restrictions/Additional Instructions: Thank you for trusting us with your care today! Your CT scan did not show evidence of a hernia, incarcerated hernia, bowel obstruction or other life-threatening emergency. Your labs are also reassuring. Your x-ray of the hip and pelvis were negative for bony injury but there was some osteoarthritis which may be contributing to your pain Please take Tylenol (2 pills, 650 mg), ibuprofen (2 pills, 400 mg) every 6 hoursas needed for pain and fever control. Please return to the emergency department if your symptoms change or worsen. Please follow with your primary care physician for further outpatient evaluationand management. Print Language: Faroese Disposition Disposition: Home, Self Care What to do if you have Problems For any increased pain, shortness of breath, bleeding, nausea or vomiting, chestpain, or any unexpected problems, contact your Primary Care Provider. Call [facility] ([phone]) or report tothe closest Emergency Room. Call 911 if necessary. 11/03/242238 Cosigner Signature (if applicable): CC: Dr. Emily Jenkins DO ~ Signed [facility]05-14-2025 Radiology Diagnostic study note [facility] Imaging Services [address] [place], [place] [id number] HIP, UNI W/ Pelvis 2-3 Views MR#: [id number] Acct: [id number] Name: MARIPOSA PIZARRO Rep #: [id number] : 1945 F 79 From: Asha Seay MD PCP: Dr. Emily Jenkins DO Status: RE G ER Study:HIP, UNI W/ Pelvis 2-3 Views Date of Ex am: 11/03/24 Exam# [id number] Ordering Dr: Estrella Mckeon DO PROCEDURE: HIP, UNI W/ PELVIS 2-3 VIEWS 11/03/2024 REASON FOR EXAM: LEFT HIP PAIN TECHNIQUE: Three views of the left hip COMPARISON: None FINDINGS: No acute fracture or dislocation. Mild-moderate osteoarthritis. No focal soft tissue abnormality. No lytic or blastic lesion. Postoperative changes lower lumbar fusion. Status post tubal ligation. Dense contrast within the urinary bladder RAD/HIP, UNI W/ Pelvis 2-3 Views IMPRESSION: See above Reading Location: [facility] CC: Dr. Emily Jenkins DO; Dr. Jung Mckeon DO ~ Gold Leaf Layer: Signed [facility]05-14-2025 Radiology Diagnostic study note [facility] Imaging Services [address] [address] Abdomen/Pelvis WITH Contrast MR#: [id number] Acct: [id number] Name: MARIPOSA PIZARRO Rep #: [id number] : 1945 F 79 From: Ching Scott MD PCP: Dr. Emily Jenkins DO Status: RE G ER Study:Abdomen/Pelvis WITH Contrast Date of Ex am: 11/03/24 Exam# [id number] Ordering Dr: Estrella Mckeon DO EXAM: CT Abdomen and Pelvis With Intravenous Contrast CLINICAL INDICATION: LEFT LOWER QUADRANT ABDOMINAL PAIN ? INCARCERATED TECHNIQUE: Axial computed tomography images of the abdomen and pelvis with intravenous contrast. This CT exam was performed using one or more of the following dose reduction techniques: automated exposure control, adjustment of the mA and/or kV according to patient size, and/or use of iterative reconstruction technique. COMPARISON: No relevant prior studies available. FINDINGS: LUNG BASES: Unremarkable. No mass. No consolidation. MEDIASTINUM: Small esophageal hiatal hernia. ABDOMEN: LIVER: Hepatomegaly with fatty infiltration. GALLBLADDER AND BILE DUCTS: Unremarkable. No calcified stones. No ductal dilation. PANCREAS: Unremarkable. No mass. No ductal dilation. SPLEEN: Unremarkable. No splenomegaly. ADRENALS: Unremarkable. No mass. KIDNEYS AND URETERS: Unremarkable. No solid mass. No hydronephrosis. STOMACH AND BOWEL: Unremarkable. No mucosal thickening. No bowel obstruction or pneumoperitoneum. PELVIS: APPENDIX: No findings to suggest acute appendicitis. BLADDER: Unremarkable. No mass. REPRODUCTIVE: Bilateral tubal ligation. ABDOMEN and PELVIS: INTRAPERITONEAL SPACE: See above. BONES/JOINTS: No acute fracture. No dislocation. SOFT TISSUES: Umbilical hernia containing fat. VASCULATURE: Scattered calcified atherosclerotic disease of aorta. No abdominal aortic aneurysm. LYMPH NODES: Unremarkable. No enlarged lymph nodes. OTHER FINDINGS: Posterior fusion of L4-[address]/Abdomen/Pelvis WITH Contrast IMPRESSION: 1. No bowel obstruction or pneumoperitoneum. 2. Small esophageal hiatal hernia. 3. Hepatomegaly with fatty infiltration. 4. Umbilical hernia containing fat. Reading Location: [facility] CC: Dr. Emily Jenkins DO; Dr. Jung Mckeon DO ~ [place] Layer: Signed [facility]05-14-2025 Discharge summary Author Jung Mckeon [facility] Note Date/Time November 03, 2024 10:39 pm [facility] Medical Records Department [address] [place] [address] Emergency Department Summary 11/03/24 MR#: [id number] Acct: [id number] Name: MARIPOSA PIZARRO Rep #:[id number] : 1945 79 From: Jung Brenner PCP: Dr. Emily Jenkins DO Status:RE G ER Location: ED HPI History of Present Illness Chief Complaint: [facility] Medical History Anxiety Arthritis Asbestos exposure Asthma Atherosclerosis of coronary artery of [place] heart without angina pectoris Benign paroxysmal positional vertigo Bone spur Cardiology follow-up encounter Dyspnea Elevated triglycerides with high cholesterol Epistaxis Essential (primary) hypertension History of echocardiogram History of hemorrhoids History of stress test IBS (irritable bowel syndrome) Leg cramps Pure hypercholesterolemia Secondary pulmonary arterial hypertension Shoulder pain Sleep apnea Stomach ulcer Wears glasses Home Medications ?Medication ?Instructions ?Recorded ?Last Taken ?Type lorazepam 0.5 mg tablet 0.5 mg PO DAILY PRN PRN Anxi ety 10/18/16 07/22/23 History calcium carbonate (Calcium 500) 1,000 mg PO QDAY 10/23 Unknown History cholecalciferol (vitamin D3) 125 5,000 unit PO QDAY Unknown History mcg (5,000 unit) capsule loratadine 10 mg tablet (Allergy 10 mg PO QDAY 8 Unknown History Relief (loratadine)) magnesium 250 mg tablet 250 mg PO QDAY 05/03/18 Unkn own History omeprazole 20 mg capsule,delayed 20 mg PO QDAY PRN Hea rtburn 10/23/17 07/22/23 History release zinc gluconate 50 mg tablet 50 mg PO DAILY 07/24/21 Un known History blood pressure monitor (Blood #1 ea 07/24/22 Unknown R x Pressure Kit) niacin 100 mg tablet 100 mg PO .as needed 3 Unknown History vitamins-lipotropics 200 mg-100 mg 1 tab PO DAILY 06/24 09/13 Unknown History tablet (Ear Care) nitrofurantoin 100 mg PO Q12 09/04/23 Unkno wn History monohydrate/macrocrystals 100 mg capsule rosuvastatin 5 mg tablet 5 mg PO .3xweek #36 tabs Unknown Rx enalapril maleate 2.5 mg tablet 1.25 mg (1/2 x 2.5 mg) PO BID #90 03/23/24 Unknown Rx tabs propranolol 60 mg capsule,24 60 mg PO QDAY #90 caps Unknown Rx hr,extended release Allergy/AdvReac Type Severity Reaction Status Date / Time risedronate sodium (From Allergy Other Verified 11/03/24 17:28 Actonel) strawberry Allergy Hives Verified 11/03/24 17:28 fish oil AdvReac skin Verified 11/03/24 17:28 erruptions onion AdvReac Vomiting Verified 11/03/24 17:28 propoxyphene HCl (From AdvReac Nausea/Vom/ Verified 11/03/24 17:28 Darvon) Diarrhea [id number] Reductase AdvReac Other Verified 11/03/24 17:28 Inhibitor Family History Mother CVA (cerebral vascular accident) Myocardial infarction, Onset Age: 93 Breast cancer Father Myocardial infarction NE age 60 CAD (coronary artery disease) CABG x 3 Cancer Heart disease Hypertension Brother Heart disease Hypertension Surgical History H/O dilation and curettage H/O eye surgery H/O tubal ligation History of back surgery History of coronary artery stent placement (01/07/18) History of tonsillectomy S/P trigger finger release Social History household members: none current occupational status: retired Smoking Status: Former smoker quit date: 06/23/07 pack-years: 12 alcohol intake: current alcohol intake frequency: a few times a month substance use type: does not use caffeine: Yes Type: carbonated beverages seatbelt use: always do you feel safe at home: Yes EXAM Physical Exam Const Vital Signs: 11/03/24 17:28 11/03/24 21:28 Temperature 97.9 F 98.1 F Temperature Source Oral Oral Pulse Rate 76 62 Respiratory Rate 16 18 Blood Pressure 177/76 H 162/74 H Blood Pressure Mean 109 103 Pulse Ox 98 95 Oxygen Delivery Method Room Air Room Air MDM MDM MDM Narrative Medical decision making narrative: HISTORY OF PRESENT ILLNESS: Chief complaint: Left groin pain 79-year-old female history of hemorrhoids, anxiety and hypertension, hyperlipidemia presents with left groin pain. Notes started 1 week ago. No falls. No pain with movement of the hip. Notes some nausea and belly pain. Noshe thinks it is a hernia. Last bowel movement was yesterday. No melena hematochezia. No vomiting. Does note she was recently treated for UTI 2 weeks ago. Denies dysuria, hematuria REVIEW OF SYSTEMS: Pertinent positives: Left groin pain, nausea Pertinent negatives: Constipation PHYSICAL EXAM: Nursing triage notes reviewed, Vital signs reviewed Constitutional: please see mdm HENT: MMM Eyes: Pupils equal round and reactive to light, Extraocular muscles intact Neck: No stridor, no JVD, full neck ROM Lungs: Clear to auscultation, No wheezing or rales. No increased work of breathing, no conversational dyspnea, no accessory muscle use, no nasal flaring. No respiratory distress noted Heart: Regular rate and rhythm, No murmurs, No rubs and No gallops, 2+ distal pulses (radial, femoral, posterior tibial) in all extremities Abdomen: Soft, there is no tenderness, rigidity, rebound or guarding, no obviousperitoneal signs, no palpable pulsatile abdominal masses, no auscultated abdominal bruit : No CVAT Extremities: No edema Neuro: No new focal neurological deficits, cranial nerves II through XII intact,5/5 strength in all present extremities. Intact sensation to light touch in all present extremities, 2+ reflexes bilateral patella tendons. Skin: No rash or lesions noted MEDICAL DECISION MAKING: Chief Complaint: please see HPI External records reviewed: Reviewed prior imaging. Factors affecting care:As per [facility] Social determinants of health: none History obtained from others: none Consults: none [facility] Narrative: Patient was initially hemodynamically stable, afebrile and nontoxic-appearing. Exam with freely reducible hernia left inguinal region. No obvious peritoneal signs. I considered the following differential diagnosis: AAA, small bowel obstruction,abdominal perforation, appendicitis, pancreatitis, hepatobiliary pathology (acute cholecystitis), mesenteric ischemia, pathology (ie nephrolithiasis, pyelonephritis). ALL IMAGES (IF OBTAINED) HAVE BEEN PERSONALLY REVIEWED AND INTERPRETED BY MYSELF. X-ray of the patient's hip and pelvis is read and reviewed person myself show noevidence obvious bony abnormality Lactate is wnl indicating no end-organ hypoperfusion and/or hypoxia. CBC without leukocytosis, severe anemia, no thrombocytopenia. Urinalysis shows no evidence of urinary inflammation suggestive of UTI CMP without evidence of acute kidney injury, significant electrolyte abnormality, anion gap to suggest end organ hypo-perfusion, no evidence of metabolic acidosis with a normal bicarbonate, no evidence of hepatobiliary obstructive pathology. Lipase slightly elevated but not consistent with acute pancreatitis CT scan abdomen pelvis shows no evidence of obvious incarcerated or strangulatedhernia, no obvious inguinal hernia, no obvious diverticulitis The synthesis of the patient's history, physical exam, labs images suggest no acute life-limiting etiology. No clear etiology to explain patient's symptoms. Could be osteoarthritis. Instructed on Tylenol ibuprofen. Instructed on PCP follow-up. The patient and/or family, caregivers express understanding. The patient and/orfamily, caregivers agrees with the plan. Shared decision making: I will have a discussion with the patient and or visitors regarding risk/benefits of further testing or admission. They will be made aware of of the risk/benefits inherent in this decision they will be given the opportunity to voice understanding. Total critical care time today provided was at least 0 minutes. This excludes separately billable procedures. Critical care time (if documented) is secondary to the patient having high probability of clinically significant/life threatening deterioration in the patient's condition which required my urgent intervention. Impression: 1. Left lower quad abdominal pain 2. Left groin pain 3. Left hip pain 4. Left hip osteoarthritis Dispo: Discharge home This note was generated with Dragon dictation software. It may contain incorrectwords, spelling, and punctuation that were not noted in review of the chart prior to signing. Lab Data Labs: Laboratory Results - last 24 hr 11/03/24 11/03/24 18:55 19:09 WBC 10.4 RBC 4.55 Hgb 14.0 Hct 41.0 MCV 90.1 MCH 30.8 MCHC 34.1 RDW Std Deviation 40.6 RDW Coeff of Kurtis 12.3 Plt Count 346 MPV 9.2 Immature Gran % (Auto) 0.400 Neut % (Auto) 51.5 Lymph % (Auto) 37.0 [place] % (Auto) 6.7 Eos % (Auto) 3.9 Baso % (Auto) 0.5 Absolute Neuts (auto) 5.4 Absolute Lymphs (auto) 3.86 Nucleated RBC % 0 Sodium 140 Potassium 4.1 Chloride 103 Carbon Dioxide 28.1 Anion Gap 9 BUN 15 Creatinine 0.76 Estim Creat Clear Calc 52.44 Est GFR (MDRD) Non-Af 80 BUN/Creatinine Ratio 19.7 Glucose 104 H Lactic Acid 1.1 Calcium 10.4 Total Bilirubin 0.28 AST 23 ALT 29 Alkaline Phosphatase 71 Total Protein 7.3 Albumin 4.2 Globulin 3.1 Albumin/Globulin Ratio 1.3 Lipase 82 H Urine Color Yellow Urine Clarity Sl. Cloudy Urine pH 7.0 Ur Specific [place] 1.015 Urine Protein 15 H Urine Glucose (UA) Normal Urine Ketones Negative Urine Occult Blood Negative Urine Nitrite Negative Urine Bilirubin Negative Urine Urobilinogen Normal Ur Leukocyte Esterase 100 H Urine RBC 0-5 SEEN Urine WBC 10-25 SEEN Ur Squamous Epith Cells 0-5 SEEN Urine Bacteria 0 SEEN Urine Mucus 0 SEEN Radiography Diagnostic Testing: Clinical Impression(s) from Imaging Studies Abdomen/Pelvis CT 11/03/24 20:20 IMPRESSION: 1. No bowel obstruction or pneumoperitoneum. 2. Small esophageal hiatal hernia. 3. Hepatomegaly with fatty infiltration. 4. Umbilical hernia containing fat. Reading Location: [id number] Hip/Pelvis X-Ray 11/03/24 21:24 IMPRESSION: See above Reading Location: [facility] Discharge Plan Triage Chief Complaint: Lower Extremity Injury ED Provider: Jung Mckeon Dx/Rx/DC Orders Instructions: Abdominal Pain Prescriptions: No Action loratadine [Allergy Relief (loratadine)] 10 mg tablet 10 mg PO QDAY omeprazole 20 mg capsule,delayed release(DR/EC) 20 mg PO QDAY PRN (Reason: Heartburn) cholecalciferol (vitamin D3) 5,000 unit capsule 5,000 unit PO QDAY calcium carbonate [Calcium 500] 500 mg calcium (1,250 mg) tablet 1,000 mg PO QDAY magnesium 250 mg tablet 250 mg PO QDAY zinc gluconate 50 mg tablet 50 mg PO DAILY niacin 100 mg tablet 100 mg PO .as needed (DME) blood pressure monitor [Blood Pressure Kit] Kit See Rx Instructions .Route Qty: 1 0RF Rx Instructions: As directed nitrofurantoin monohyd/m-cryst 100 mg capsule 100 mg PO Q12 lorazepam 0.5 MG tablet 0.5 mg PO DAILY PRN PRN (Reason: Anxiety) Ear Care 200-100 mg tablet 1 tab PO DAILY rosuvastatin 5 mg tablet 5 mg PO .3xweek Qty: 36 3RF enalapril maleate 2.5 mg tablet 1.25 mg PO BID Qty: 90 3RF propranolol 60 mg capsule,extended release 24 hr 60 mg PO QDAY Qty: 90 3RF Primary Care Provider: Emily Jenkins Referrals: Emily Jenkins DO [Primary Care Provider] - Activity Restrictions/Additional Instructions: Thank you for trusting us with your care today! Your CT scan did not show evidence of a hernia, incarcerated hernia, bowel obstruction or other life-threatening emergency. Your labs are also reassuring. Your x-ray of the hip and pelvis were negative for bony injury but there was some osteoarthritis which may be contributing to your pain Please take Tylenol (2 pills, 650 mg), ibuprofen (2 pills, 400 mg) every 6 hoursas needed for pain and fever control. Please return to the emergency department if your symptoms change or worsen. Please follow with your primary care physician for further outpatient evaluationand management. Print Language: Faroese Disposition Disposition: Home, Self Care What to do if you have Problems For any increased pain, shortness of breath, bleeding, nausea or vomiting, chestpain, or any unexpected problems, contact your Primary Care Provider. Call [facility] ([phone]) or report to the closest Emergency Room. Call 911 if necessary. 11/03/242238 <Electronically signed by Jung Mckeon DO> Cosigner Signature (if applicable): CC: Dr. Emily Jenkins DO ~ Signed [facility] Work Phone: 1(610) 882-701205-12-2025 NoteHNO ID: [id number] Author: JACKLYN CARPENTER MA Service: ? Author Type: Flour Blender Type: Progress Notes Filed: 11/01/2024 09:43 Note Text: obtained urine. Jcaklyn Carpenter [facility]05-12-2025 History of Present illness Narrative* Jacklyn Carpenter MA - 11/01/2024 9:43 AM EDT obtained urine. Jacklyn Carpenter MA [facility] Tele[facility] encounter Note * Telephone Encounter - Jacklyn Carpenter MA - 10/30/2024 9:48 AM EDT Patient given results and verbalized understanding of instructions given. She is giving another sample due to blood in urine. Jacklyn Carpenter MA [facility]05-10-2025 Miscellaneous Notes* Telephone Encounter - Jacklyn Carpenter MA - 10/30/2024 9:48 AM EDT Patient given results and verbalized understanding of instructions given. She is giving another sample due to blood in urine. Jacklyn Carpenter MA * Telephone Encounter - Jayne Benjamin APRN.CNP - 10/28/2024 4:12 PM EDT Urine culture reveals mixed microbes, this can occur as a result of skin contamination at time of collection. Patient may complete ATB is symptoms are improving. If they are not, she can discontinue ATB and provide another sample. Order is placed, does not need to register as a formal patient check in Can just present to express care as nurse visit to provide new specimen Follow up with PCP related to blood in urine Please advise of above. [facility] Telephone encounter Note * Telephone Encounter - Jayne Bejnamin APRN.CNP - 10/28/2024 4:12 PM EDT Urine culture reveals mixed microbes, this can occur as a result of skin contamination at time of collection. Patient may complete ATB is symptoms are improving. If they are not, she can discontinue ATB and provide another sample. Order is placed, does not need to register as a formal patient check in Can just present to express care as nurse visit to provide new specimen Follow up with PCP related to blood in urine Please advise of above. [facility]05-07[facility]25 NoteHNO ID: [id number] Author: JAYNE BENJAMIN APRN.CNP Service: ? Author Type: Nurse Practitioner Type: Progress Notes Filed: 10/27/2024 10:10 Note Text: [facility] Subjective Mariposa Pizarro is a 79 year old female. Patient presents with: Urinary Frequency: burning with urination x 3-4 days 79 year old female with PMH hyperlipidemia presents for possible UTI. Acute onset 3 to 4 days ago +suprapubic pressure +frequency +burning +chills Denies fever Denies N/V Denies diarrhea Denies vaginal bleeding Denies vaginal discharge Denies recent coitus The history is provided by the patient. No high school foreign language teacher was used. UTI This is a new problem. The current episode started more than 2 days ago. The problem occurs every urination. The problem has been gradually worsening. The quality of the pain is described as burning. The pain is at a severity of 3/10. The pain is moderate. There has been no fever. She is Not sexually active. Associated symptoms include frequency and urgency. Pertinent negatives include no chills, no sweats, no nausea, no vomiting, no discharge, no hematuria, no hesitancy, no possible and no flank pain. She has tried nothing for the symptoms. Her past medical history does not include kidney stones, single kidney, urological procedure, recurrent UTIs, urinary stasis or catheterization. 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 Nonspecific abnormal finding in stool contents Osteoporosis 2007 Other and unspecified hyperlipidemia Hyperlipidemia PAST SURGICAL HISTORY Procedure Laterality Date COLONOSCOPY FLX DX W/COLLJ SPEC WHEN PFRMD 06/18/12 Colonoscopy repeat 5 years DILATION AND CURETTAGE DXAND/THER NONOBSTETRIC Dilation AND curettage LAMINECTOMY W/O FFD 06/24 VERT SEG LUMBAR 2000 Laminectomy, lumbar and fusion LIG/TRNSXJ FLP TUBE ABDL/VAG APPR UNI/BI Tubal ligation OTHER 2009 spot removed from L leg (not malignant per pt.) PAST SURGICAL HISTORY OF 1974 cold knife cone of the cervix PAST SURGICAL HISTORY OF EYE surg for nevus X2 TONSILLECTOMY PRIMARY/SECONDARY Tonsillectomy ALLERGIES Actonel [Risedronate Sodium], Darvon [Propoxyphene Hcl], and Prednisone MEDICATIONS nitrofurantoin monohydrate and macrocrystal (MACROBID) 100 mg capsule Take 1 capsule by mouth two times a day for 5 days. rosuvastatin (CRESTOR) 5 mg tablet TAKE 1 TABLET BY MOUTH 3 (THREE) times per week aspirin, enteric coated (ECOTRIN LOW STRENGTH) 81 mg EC tablet Take 81 mg by mouth once daily. atorvastatin (LIPITOR) 20 mg tablet Take 20 mg by mouth once daily. clopidogrel (PLAVIX) 75 mg tablet Take 75 mg by mouth once daily. (Patient not taking: Reported on 09/14/2023) propranolol ER (INDERAL LA) 60 mg 24 hr capsule Take 60 mg by mouth once daily. benzonatate (TESSALON PERLES) 100 mg capsule Take 1 capsule by mouth three times daily as needed for Cough. (Patient not taking: Reported on 09/05/2020 ) FLUTICASONE PROPIONATE (FLONASE NASAL) Use in the nose. (Patient not taking: Reported on 09/14/2023) niacin (NIACIN) 100 mg tablet Take 100 mg by mouth daily with breakfast. UBIDECARENONE (CO Q-10 ORAL) Take by mouth. (Patient not taking: Reported on 09/14/2023) yikqgffi-weafrtiai-eemdrbdctcxcbr (CORTISPORIN) 3.5-10,000-1 mg/mL-unit/mL-% otic suspension Use 4 Drops in the right ear three times daily. For 7 days. (Patient not taking: Reported on 09/05/2020 ) simvastatin (ZOCOR) 20 mg tablet Take 20 mg by mouth daily at bedtime. (Patient not taking: Reported on 09/14/2023) loratadine 10 mg cap Take 1 tablet by mouth once daily. enalapril 2.5 mg tablet Take 2.5 mg by mouth once daily. calcium carbonate 500 mg calcium (1,250 mg) tablet Take 1 tablet by mouth once daily. Cholecalciferol, Vitamin D3, (VITAMIN D) 1,000 unit cap Take 1,000 Units by mouth once daily. Cod Liver Oil Oil Take 1 tablet by mouth. take twice weekly MAGNESIUM OXIDE/MAG AA CHELATE (MAGNESIUM ORAL) Take 2 tablets by mouth once daily. PYRIDOXINE HCL (VITAMIN B-6 ORAL) Take 1 tablet by mouth once daily. LORazepam (ATIVAN) 0.5 mg Tab Take by mouth daily at bedtime. as needed. FAMILY HISTORY Problem Relation Age of Onset Heart Mother Lipids Mother Diabetes Daughter Hypertension Father Hypertension Brother Cancer Father Testicular Breast Cancer Mother 94 Cured and is 98 at 2012 Social History Tobacco Use Smoking status: Former Current packs/day: 0.00 Types: Cigarettes Start date: 07/02/2002 Quit date: 07/02/2007 Years since quittin.3 Smokeless tobacco: Never Tobacco comments: 10 cigarettes daily Substance Use Topics Alcohol use: Yes Comment: rarely one can monthly Drug use: No Review of Systems Constitutional: Negative for chills. Eyes: Negative for pain, discharge, redness and itching. Respiratory: Negative for apnea, cough, choking and chest tightness. (more content not included)...[facility]05-07-2025 History of Present illness Narrative* Jayne Benjamin APRN.MILL FEEDER - 10/27/2024 9:28 AM EDT [facility] Subjective Mariposa Pizarro is a 79 year old female. Patient presents with: Urinary Frequency: burning with urination x 3-4 days 79 year old female with PMH hyperlipidemia presents for possible UTI. Acute onset 3 to 4 days ago +suprapubic pressure +frequency +burning +chills Denies fever Denies N/V Denies diarrhea Denies vaginal bleeding Denies vaginal discharge Denies recent coitus The history is provided by the patient. No high school foreign language teacher was used. UTI This is a new problem. The current episode started more than 2 days ago. The problem occurs every urination. The problem has been gradually worsening. The quality of the pain is described as burning.The pain is at a severity of 3/10. The pain is moderate. There has been no fever. She is Not sexually active. Associated symptoms include frequency and urgency. Pertinent negatives include no chills,no sweats, no nausea, no vomiting, no discharge, no hematuria, no hesitancy, no possible and no flank pain. She has tried nothing for the symptoms. Her past medical history does not includekidney stones, single kidney, urological procedure, recurrent UTIs, urinary stasis or catheterization. 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 Nonspecific abnormal finding in stool contents Osteoporosis 2007 Other and unspecified hyperlipidemia Hyperlipidemia PAST SURGICAL HISTORY Procedure Laterality Date COLONOSCOPY FLX DX W/COLLJ SPEC WHEN PFRMD 06/18/12 Colonoscopy repeat 5 years DILATION & CURETTAGE DX&/THER NONOBSTETRIC Dilation & curettage LAMINECTOMY W/O FFD 1/2 VERT SEG LUMBAR 2000 Laminectomy, lumbar and fusion LIG/TRNSXJ FLP TUBE ABDL/VAG APPR UNI/BI Tubal ligation OTHER 2009 spot removed from L leg (not malignant per pt.) PAST SURGICAL HISTORY OF 1974 cold knife cone of the cervix PAST SURGICAL HISTORY OF EYE surg for nevus X2 TONSILLECTOMY PRIMARY/SECONDARY <AGE 13 Tonsillectomy ALLERGIES Actonel [Risedronate Sodium], Darvon [Propoxyphene Hcl], and Prednisone MEDICATIONS nitrofurantoin monohydrate and macrocrystal (MACROBID) 100 mg capsule Take 1 capsule by mouth two times a day for 5 days. rosuvastatin (CRESTOR) 5 mg tablet TAKE 1 TABLET BY MOUTH 3 (THREE) times per week aspirin, enteric coated (ECOTRIN LOW STRENGTH) 81 mg EC tablet Take 81 mg by mouth once daily. atorvastatin (LIPITOR) 20 mg tablet Take 20 mg by mouth once daily. clopidogrel (PLAVIX) 75 mg tablet Take 75 mg by mouth once daily. (Patient not taking: Reported on 09/14/2023) propranolol ER (INDERAL LA) 60 mg 24 hr capsule Take 60 mg by mouth once daily. benzonatate (TESSALON PERLES) 100 mg capsule Take 1 capsule by mouth three times daily as needed for Cough. (Patient not taking: Reported on 09/05/2020 ) FLUTICASONE PROPIONATE (FLONASE NASAL) Use in the nose. (Patient not taking: Reported on 09/14/2023) niacin (NIACIN) 100 mg tablet Take 100 mg by mouth daily with breakfast. UBIDECARENONE (CO Q-10 ORAL) Take by mouth. (Patient not taking: Reported on 09/14/2023) ztbflrbh-pnbmxhbil-irnvykdlbeweif (CORTISPORIN) 3.5-10,000-1 mg/mL-unit/mL-% otic suspension Use 4 Drops in the right ear three times daily. For 7 days. (Patient not taking: Reported on 09/05/2020 ) simvastatin (ZOCOR) 20 mg tablet Take 20 mg by mouth daily at bedtime. (Patient not taking: Reported on 09/14/2023) loratadine 10 mg cap Take 1 tablet by mouth once daily. enalapril 2.5 mg tablet Take 2.5 mg by mouth once daily. calcium carbonate 500 mg calcium (1,250 mg) tablet Take 1 tablet by mouth once daily. Cholecalciferol, Vitamin D3, (VITAMIN D) 1,000 unit cap Take 1,000 Units by mouth once daily. Cod Liver Oil Oil Take 1 tablet by mouth. take twice weekly MAGNESIUM OXIDE/MAG AA CHELATE (MAGNESIUM ORAL) Take 2 tablets by mouth once daily. PYRIDOXINE HCL (VITAMIN B-6 ORAL) Take 1 tablet by mouth once daily. LORazepam (ATIVAN) 0.5 mg Tab Take by mouth daily at bedtime. as needed. FAMILY HISTORY Problem Relation Age of Onset Heart Mother Lipids Mother Diabetes Daughter Hypertension Father Hypertension Brother Cancer Father Testicular Breast Cancer Mother 94 Cured and is 98 at 2012 Social History Tobacco Use Smoking status: Former Current packs/day: 0.00 Types: Cigarettes Start date: 07/02/2002 Quit date: 07/02/2007 Years since quittin.3 Smokeless tobacco: Never Tobacco comments: 10 cigarettes daily Substance Use Topics Alcohol use: Yes Comment: rarely one can monthly Drug use: No Review of Systems Constitutional: Negative for chills. Eyes: Negative for pain, discharge, redness and itching. Respiratory: Negative for apnea, cough, choking and chest tightness. Cardiovascular: Negative for chest pain, palpitations and leg swelling. Gastrointestinal: Negative for nausea and vomiting. Genitourinary: Positive for dysuria, frequency and urgency. Negative for flank pain, hematuria and hesitancy. Skin: Negative for color change, pallor, rash and wound. Hematological: Negative for adenopathy. Does not bruise/bleed easily. Psychiatric/Behavioral: Negative for agitation and behavioral problems. Objective BP 122/70 Pulse 78 Temp 36.1 C (97 F) Resp 16 Wt 72.4 kg (159 lb 9.8 oz) SpO2 96% Physical Exam Vitals and nursing note reviewed. Constitutional: General: She is not in acute distress. Appearance: Normal appearance. She is normal weight. She is not ill-appearing, toxic-appearing or diaphoretic. HENT: Head: Normocephalic and atraumatic. Right Ear: Ear canal and external ear normal. Left Ear: Ear canal and external ear normal. Nose: Nose normal. No congestion or rhinorrhea. Mouth/Throat: Mouth: Mucous membranes are moist. Pharynx: No oropharyngeal exudate or posterior oropharyngeal erythema. Eyes: General: Right eye: No discharge. Left eye: No discharge. Extraocular Movements: Extraocular movements intact. Conjunctiva/sclera: Conjunctivae normal. Pupils: Pupils are equal, round, and reactive to light. Cardiovascular: Rate and Rhythm: Normal rate and regular rhythm. Pulses: Normal pulses. Heart sounds: Normal heart sounds. No murmur heard. No friction rub. Pulmonary: Effort: Pulmonary effort is normal. No respiratory distress. Breath sounds: Normal breath sounds. No stridor. No wheezing, rhonchi or rales. Chest: Chest wall: No tenderness. Abdominal: General: Abdomen is flat. There is no distension. Palpations: Abdomen is soft. There is no mass. Tenderness: There is no abdominal tenderness. There is no right CVA tenderness, left CVA tenderness, guarding or rebound. Hernia: No hernia is present. Musculoskeletal: General: No swelling, tenderness, deformity or signs of injury. Normal range of motion. Cervical back: Normal range of motion and neck supple. No rigidity. Right lower leg: No edema. Left lower leg: No edema. Lymphadenopathy: Cervical: No cervical adenopathy. Skin: General: Skin is warm and dry. Coloration: Skin is not jaundiced or pale. Findings: No bruising, erythema, lesion or rash. Neurological: General: No focal deficit present. Mental Status: She is alert and oriented to person, place, and time. Cranial Nerves: No cranial nerve deficit. Sensory: No sensory deficit. Motor: No weakness. Coordination: Coordination normal. Gait: Gait normal. Psychiatric: Mood and Affect: Mood normal. Behavior: Behavior normal. Thought Content: Thought content normal. Judgment: Judgment normal. {ASSESSMENT/PLAN: 1. Cystitis acute - UA positive for arin esterase - Send urine for culture - Begin treatment with Macrobid 100 mg BID for 5 days - Patient education for prevention given - UA DIP, URINE (POC) - BACTERIAL CULTURE, URINE Jayne Benjamin APRN.MILL FEEDER Differential Diagnoses - cystitis is more likely for the following reason(s): suggested by H&P and consistent with laboratory studies - pyelo is less likely for the following reason(s): H&P not suggestive and laboratory studies not suggestive Contributing Factors Chronic conditions affecting care: cancer (see comments) Disposition The patient was discharged. Procedures [facility] Consult note Author Rodger Multani [facility] Note Date/Time December 29, 2024 10:00 am [facility] Medical Records Department [address] [place] [address] Anesthesia Postop Eval I 12/29/24 0959 MR#: [id number] Acct: [id number] Name: MARIPOSA PIZARRO Aimee Rep #:[id number] : 1945 79 From: Rodger Multani PCP: Dr. Emily Jenkins, DO Status:RE G SDC Y Race: C Location: [place] [address] Anesthesia: Postop Eval I Current Vital Signs Temperature: 97.4 F Pulse Rate: 63 Blood Pressure: 126/64 Respiratory Rate: 16 Pulse Ox: 97 Oxygen Delivery Method: Room Air Assessment Airway patent: Yes Spontaneous unlabored respirations: Yes Mental status: Asleep nausea: No Vomiting: No Anesthesia Complication: No Fluid Hydration Crystalloid volume administer (ml): 900 Total IV fluid infused: 900 Progress Note Anesthesia document: Postop Eval 1 completed: Yes 12/29/24 1000 <Electronically signed by Rodger Multani > Date _ Rodger Villaignbenny Signature: Date CC: ~ Signed [facility] Work Phone: 1(216) 954-645004-02-2025 Consult note Author Hussain Garnett [facility] Note Date/Time December 29, 2024 11:17 am [facility] Medical Records Department [address] [place] [address] Anesthesia Postop Eval II 12/29/24 1016 MR#: [id number] Acct: [id number] Name: AMRIPOSA PIZARRO Rep #:[id number] : 1945 79 From: Hussain Rodriguez PCP: Dr. Emily Jenkins, DO Status:[facility] Y Race: C Location: [place] [address] Anesthesia Postop Eval I Sum Postop Eval Completion status Anesthesia document: Postop Eval 1 completed: Yes Anesthesia Postop Eval I Summary Anesthesia Postop Eval I Summary: Anesthesia Postop Eval I: Assessment Summary Airway patent Yes 12/29/24 10:00 [email or web address] Spontaneous unlabored Yes 12/29/24 10:00 [email or web address] respirations Mental status Asleep 12/29/24 10:00 [email or web address] nausea No 12/29/24 10:00 [email or web address] Vomiting No 12/29/24 10:00 [email or web address] Anesthesia Postop Eval I: Fluid Summary Crystalloid volume administer 900 12/29/24 10:00 [email or web address] (ml) Colloids volume administered ( ml) Blood Product volume administered (ml) Total IV fluid infused 900 12/29/24 10:00 [email or web address] Anesthesia Postop Eval I: Summary Notes Anesthesia Complication No 12/29/24 10:00 [email or web address] Anesthesia Complication Comment: Post-operative progress note Anesthesia: Postop Eval II Evaluation Mental status: Awake and Calm Pain Level: 1 nausea: No Vomiting: No Complications Anesthesia Complication: No 12/29/24 1016 <Electronically signed by Hussain Garnett MD> Date _ Hussain Garnett MD Cosigner Signature: Date CC: ~ Signed [facility] Work Phone: 1(740) 952-253912-15-2024 NoteHNO ID: [id number] Author: ARACELY RINCON PA-C Service: ? Author Type: Physician Assistant Therapy Aide Type: Progress Notes Filed: 06/06/2024 14:27 Note Text: This note was created using OnKureriter. Subjective Mariposa Pizarro is a 78 year old female. HPI Patient presents with a chief complaint of right sided sinus pressure and congestion for 3 weeks. She had COVID the week of . She states those symptoms have improved. She has a minimal cough. No chest pain or shortness of breath. She states she has had worsening right sided sinus pressure however. Radiates into her ear. She has been using guaifenesin and nasal saline. No diarrhea or vomiting. Review of Systems Constitutional: Negative. HENT: Positive for congestion, ear pain, sinus pressure and sinus pain. Negative for sore throat. Respiratory: Positive for cough. Negative for shortness of breath and wheezing. Cardiovascular: Negative. Gastrointestinal: Negative. Genitourinary: Negative. Musculoskeletal: Negative. Neurological: Positive for headaches. All other systems reviewed and are negative. 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 atorvastatin (LIPITOR) 20 mg tablet Take 20 mg by mouth once daily. propranolol ER (INDERAL LA) 60 mg 24 hr capsule Take 60 mg by mouth once daily. loratadine 10 mg cap Take 1 tablet by mouth once daily. enalapril 2.5 mg tablet Take 2.5 mg by mouth once daily. calcium carbonate 500 mg calcium (1,250 mg) tablet Take 1 tablet by mouth once daily. Cholecalciferol, Vitamin D3, (VITAMIN D) 1,000 unit cap Take 1,000 Units by mouth once daily. PYRIDOXINE HCL (VITAMIN B-6 ORAL) Take 1 tablet by mouth once daily. LORazepam (ATIVAN) 0.5 mg Tab Take by mouth daily at bedtime. as needed. amoxicillin-clavulanate potassium (AUGMENTIN) 875-125 mg per tablet Take 1 tablet by mouth two times a day for 7 days. 14 tablet 0 clopidogrel (PLAVIX) 75 mg tablet Take 75 mg by mouth once daily. (Patient not taking: Reported on 09/14/2023) benzonatate (TESSALON PERLES) 100 mg capsule Take 1 capsule by mouth three times daily as needed for Cough. (Patient not taking: Reported on 09/05/2020 ) 30 capsule 0 FLUTICASONE PROPIONATE (FLONASE NASAL) Use in the nose. (Patient not taking: Reported on 09/14/2023) niacin (NIACIN) 100 mg tablet Take 100 mg by mouth daily with breakfast. UBIDECARENONE (CO Q-10 ORAL) Take by mouth. (Patient not taking: Reported on 09/14/2023) kfmmuyja-tejudzvmb-bwmzdwyhshebtc (CORTISPORIN) 3.5-10,000-1 mg/mL-unit/mL-% otic suspension Use 4 Drops in the right ear three times daily. For 7 days. (Patient not taking: Reported on 09/05/2020 ) 1 Bottle 0 simvastatin (ZOCOR) 20 mg tablet Take 20 mg by mouth daily at bedtime. (Patient not taking: Reported on 09/14/2023) Cod Liver Oil Oil Take 1 tablet by mouth. take twice weekly MAGNESIUM OXIDE/MAG AA CHELATE (MAGNESIUM ORAL) Take 2 tablets by mouth once daily. No current facility-administered medications for this visit. PAST SURGICAL HISTORY Procedure Laterality Date COLONOSCOPY FLX DX W/COLLJ SPEC WHEN PFRMD 06/18/12 Colonoscopy repeat 5 years DILATION AND CURETTAGE DXAND/THER NONOBSTETRIC Dilation AND curettage LAMINECTOMY W/O FFD 06/24 VERT SEG LUMBAR 2000 Laminectomy, lumbar and fusion LIG/TRNSXJ FLP TUBE ABDL/VAG APPR UNI/BI Tubal ligation OTHER 2009 spot removed from L leg (not malignant per pt.) PAST SURGICAL HISTORY OF 1974 cold knife cone of the cervix PAST SURGICAL HISTORY OF EYE surg for nevus X2 TONSILLECTOMY PRIMARY/SECONDARY Tonsillectomy FAMILY HISTORY Problem Relation Age of Onset Heart Mother Lipids Mother Diabetes Daughter Hypertension Father Hypertension Brother Cancer Father Testicular Breast Cancer Mother 94 Cured and is 98 at 2012 Social History Tobacco Use Smoking status: Former Current packs/day: 0.00 Types: Cigarettes Start date: 07/02/2002 Quit date: 07/02/2007 Years since quittin.9 Smokeless tobacco: Never Tobacco comments: 10 cigarettes daily Substance Use Topics Alcohol use: Yes Comment: rarely one can monthly Drug use: No Objective BP 162/86 Pulse 70 Temp 36.6 ?C (97.8 ?F) (Tympanic) Resp 18 Wt 73.3 kg (161 lb 9.6 oz) SpO2 97% Physical Exam Vitals reviewed. Constitutional: Appearance: Normal appearance. HENT: Head: Normocephalic and atraumatic. Right Ear: Tympanic membrane, ear canal and external ear normal. Left Ear: Tympanic membrane, ear canal and external ear normal. Nose: Congestion present. Righ (more content not included)...[facility]03-25-2024 Miscellaneous Notes* Telephone Encounter - Carline Holley RN - 09/15/2023 5:57 PM EDT Spoke with patient. Given message from provider's office. Patient verbalizes understanding. Carline Holley RN * Telephone Encounter - Nara Mccullough LPN - 09/15/2023 2:05 PM EDT Left message for patient to return call for results and recommendations.Nara Mccullough LPN * Telephone Encounter - Aracely Rincon PA-C - 09/15/2023 1:41 PM EDT Please call and let patient know her urine culture showed it was contaminated on collection, likelyfrom skin bacteria. Continue antibiotics if helping. Otherwise follow-up with PCP for continued symptoms. [facility] History of Present illness Narrative* Glory Palmer APRN.MILL FEEDER - 09/14/2023 1:34 PM EDT This note was created using OnKureriter. Subjective Mariposa Pizarro is a 77 year old female. Patient reports she has had pelvic "discomfort" for three days. Also endorses increased frequency. Denies nausea, fever, or CVA tenderness. Was recently seen in July for UTI, symptoms feel similar. Patient was treated with Macrobid at that time. Review of Systems Genitourinary: Positive for dysuria and frequency. Objective BP 140/72 Pulse 79 Temp 36.3 C (97.4 F) Resp 19 Wt 73.1 kg (161 lb 2.5 oz) SpO2 96% Physical Exam Abdominal: General: Abdomen is flat. Bowel sounds are normal. There is no distension. Tenderness: There is no abdominal tenderness. There is no right CVA tenderness or left CVA tenderness. 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 Nonspecific abnormal finding in stool contents Osteoporosis 2008 Other and unspecified hyperlipidemia Hyperlipidemia PAST SURGICAL HISTORY Procedure Laterality Date COLONOSCOPY FLX DX W/COLLJ SPEC WHEN PFRMD 06/18/12 Colonoscopy repeat 5 years DILATION & CURETTAGE DX&/THER NONOBSTETRIC Dilation & curettage LAMINECTOMY W/O FFD 1/2 VERT SEG LUMBAR 2000 Laminectomy, lumbar and fusion LIG/TRNSXJ FLP TUBE ABDL/VAG APPR UNI/BI Tubal ligation OTHER 2009 spot removed from L leg (not malignant per pt.) PAST SURGICAL HISTORY OF 1974 cold knife cone of the cervix PAST SURGICAL HISTORY OF EYE surg for nevus X2 TONSILLECTOMY PRIMARY/SECONDARY <AGE 13 Tonsillectomy ALLERGIES Actonel [Risedronate Sodium], Darvon [Propoxyphene Hcl], and Prednisone MEDICATIONS rosuvastatin (CRESTOR) 5 mg tablet TAKE 1 TABLET BY MOUTH 3 (THREE) times per week aspirin, enteric coated (ECOTRIN LOW STRENGTH) 81 mg EC tablet Take 81 mg by mouth once daily. atorvastatin (LIPITOR) 20 mg tablet Take 20 mg by mouth once daily. propranolol ER (INDERAL LA) 60 mg 24 hr capsule Take 60 mg by mouth once daily. loratadine 10 mg cap Take 1 tablet by mouth once daily. enalapril 2.5 mg tablet Take 2.5 mg by mouth once daily. calcium carbonate 500 mg calcium (1,250 mg) tablet Take 1 tablet by mouth once daily. Cholecalciferol, Vitamin D3, (VITAMIN D) 1,000 unit cap Take 1,000 Units by mouth once daily. PYRIDOXINE HCL (VITAMIN B-6 ORAL) Take 1 tablet by mouth once daily. LORazepam (ATIVAN) 0.5 mg Tab Take by mouth daily at bedtime. as needed. cephALEXin (KEFLEX) 500 mg capsule Take 1 capsule by mouth two times a day for 7 days. clopidogrel (PLAVIX) 75 mg tablet Take 75 mg by mouth once daily. (Patient not taking: Reported on 09/14/2023) benzonatate (TESSALON PERLES) 100 mg capsule Take 1 capsule by mouth three times daily as needed for Cough. (Patient not taking: Reported on 09/05/2020 ) FLUTICASONE PROPIONATE (FLONASE NASAL) Use in the nose. (Patient not taking: Reported on 09/14/2023) niacin (NIACIN) 100 mg tablet Take 100 mg by mouth daily with breakfast. UBIDECARENONE (CO Q-10 ORAL) Take by mouth. (Patient not taking: Reported on 09/14/2023) crjzawqa-anmsppzxu-unytombkdbzvja (CORTISPORIN) 3.5-10,000-1 mg/mL-unit/mL-% otic suspension Use 4 Drops in the right ear three times daily. For 7 days. (Patient not taking: Reported on 09/05/2020 ) simvastatin (ZOCOR) 20 mg tablet Take 20 mg by mouth daily at bedtime. (Patient not taking: Reported on 09/14/2023) Cod Liver Oil Oil Take 1 tablet by mouth. take twice weekly MAGNESIUM OXIDE/MAG AA CHELATE (MAGNESIUM ORAL) Take 2 tablets by mouth once daily. FAMILY HISTORY Problem Relation Age of Onset Heart Mother Lipids Mother Diabetes Daughter Hypertension Father Hypertension Brother Cancer Father Testicular Breast Cancer Mother 94 Cured and is 98 at 2012 Social History Tobacco Use Smoking status: Former Years: 5 Types: Cigarettes Quit date: 07/02/2007 Years since quittin.2 Smokeless tobacco: Never Tobacco comments: 10 cigarettes daily Substance Use Topics Alcohol use: Yes Comment: rarely one can monthly Drug use: No ASSESSMENT/PLAN: 1. Recurrent UTI (urinary tract infection) - ICD9: 599.0, ICD10: N39.0 (primary diagnosis) acute - UA positive for arin esterase - Send urine for culture - Begin treatment with Keflex for 5 days - Patient education for prevention given - CEPHALEXIN 500 MG CAPSULE 2. Urinary frequency - ICD9: 788.41, ICD10: R35.0 acute - UA positive for arin esterase - Send urine for culture - UA DIP, URINE (POC) - + Arin esterase, Trace intact blood - URINE CULTURE Prescription instructions reviewed with patient. Potential red flag symptoms discussed with the patient. Reviewed appropriate action plan to take if red flag symptoms occur. Patient agreeable to treatment plan. Jacklyn Galicia Supervising provider was present and guided the care of the patient for the entire session on this date. All documentation was reviewed and agreed upon. Glory Palmer APRN.CNP [facility] Discharge summary Author Katie Segura [facility] July 22, 2023 1:16pm Note Date/Time July 22, 2023 1 :16pm [facility] Medical Records Department [address] [place] [address] Instructions for Home/Discharge Instructions 07/22/23 1315 MR#: [id number] Acct: [id number] Name: MARIPOSA PIZARRO Rep #:[id number] : 1945 77 From: Katie iraheta MD PCP: Dr. Emily Jenkins, DO Status:[place] [facility] [place] Instructions Diet Discharge Diet: No restrictions Activity Discharge Activity: Return to Normal Activity, May Shower and May Take a Tub Bath (after 1 week) May resume sexual activity in: 1-2 weeks Weight Bearing Status: Weight bearing as tolerated Lifting Restrictions: none Dressing / Incision Call your doctor if you observe: Fever of 101 or Higher, Using more than 1 pad per hour, Shortness of breath and Uncontrolled pain Follow Up Care Please Follow Up With: Katie Segura MD When: Call [phone] to schedule appointment. Test Results: Test results from this visit will be discussed in further detail at your follow- up appointment, if applicable. Discharge Plan Admission Attending Provider: Katie Segura Primary Care Provider: Emily Jenkins Discharge Orders/Prescriptions Prescriptions: No Action loratadine [Allergy Relief (loratadine)] 10 mg tablet 10 mg PO QDAY omeprazole 20 mg capsule,delayed release(DR/EC) 20 mg PO QDAY PRN (Reason: Heartburn) cholecalciferol (vitamin D3) 5,000 unit capsule 5,000 unit PO QDAY calcium carbonate [Calcium 500] 500 mg calcium (1,250 mg) tablet 1,000 mg PO QDAY magnesium 250 mg tablet 250 mg PO QDAY zinc gluconate 50 mg tablet 50 mg PO DAILY niacin 100 mg tablet 100 mg PO .as needed (DME) blood pressure monitor [Blood Pressure Kit] Kit See Rx Instructions .Route Qty: 1 0RF Rx Instructions: As directed enalapril maleate 2.5 mg tablet 2.5 mg PO DAILY lorazepam 0.5 MG tablet 0.5 mg PO DAILY PRN PRN (Reason: Anxiety) Ear Care 200-100 mg tablet 1 tab PO DAILY propranolol 60 mg capsule,extended release 24 hr 60 mg PO QDAY Qty: 90 3RF rosuvastatin [Crestor] 5 mg tablet 5 mg PO .3xweek Qty: 36 3RF Other Ambulatory Orders: 12 Lead EKG (Routine) Timeframe: [id number] Location: None Selected Ordered By: Dr. Katie Segura Referrals / Follow Up: Emily Jenkins DO [Primary Care Provider] - Disposition Disposition (needs filled in before D/C Order can be placed): Home, Self Care 07/22/23 1316<Electronically signed by Katie Segura MD>Katie Segura MD CC: Dr. Emily Jenkins, ~ Signed [facility] Work Phone: [phone]) 624-684001-30-2024 History and physical note Author Katie Segura [facility] July 22, 2023 12:11pm Note Date/Time July 22, 2023 1 2:11pm [facility] Medical Records Department [address] [place] [address] History & Physical Exam 07/22/23 1211 MR#: [id number] Acct: [id number] Name: MARIPOSA PIZARRO Rep #:[id number] : 1945 77 From: Katie iraheta MD PCP: Dr. 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 Required: No Is patient in pain?: No Allergies risedronate sodium [From Actonel] Allergy (Verified 07/03/23 14:33) Otherstrawberry Allergy (Verified 07/03/23 14:33) Hivesfish oil Adverse Reaction (Verified 07/03/23 14:33) skin erruptionsonion Adverse Reaction (Verified 07/03/23 14:33) Vomitingpropoxyphene HCl [From Darvon] Adverse Reaction (Verified 07/03/23 14:33) Nausea/Vom/SpkclnrlAinkjpq-LOR-RmA Reductase Inhibitor Adverse Reaction (Verified 07/03/23 14:33) Other Medications lorazepam 0.5 mg tablet 0.5 mg PO DAILY PRN PRN Anxiety 10/18/16 [History Confirmed 07/03/23] calcium carbonate 500 mg calcium (1,250 mg) tablet (Calcium 500) 1,000 mg PO QDAY 10/23/17 [History Confirmed 07/03/23] cholecalciferol (vitamin D3) 125 mcg (5,000 unit) capsule 5,000 unit PO QDAY 10/23/17 [History Confirmed 07/03/23] loratadine 10 mg tablet (Allergy Relief (loratadine)) 10 mg PO QDAY 10/23/17 [History Confirmed 07/03/23] magnesium 250 mg tablet 250 mg PO QDAY 10/23/17 [History Confirmed 07/03/23] omeprazole 20 mg capsule,delayed release 20 mg PO QDAY PRN Heartburn 10/23/17 [History Confirmed 07/03/23] turmeric 400 mg capsule 800 mg PO .weekly 07/24/21 [History Confirmed 07/03/23] zinc gluconate 50 mg tablet 50 mg PO DAILY 07/24/21 [History Confirmed 07/03/23] blood pressure monitor (Blood Pressure Kit) #1 ea 07/24/22 [Rx Confirmed 07/03/23] propranolol 60 mg capsule,24 hr,extended release 60 mg PO QDAY #90 caps 11/01/22[Rx Confirmed 07/03/23] rosuvastatin 5 mg tablet (Crestor) 5 mg PO .3xweek #36 tabs 03/03/23 [Rx Confirmed 07/03/23] tizanidine 2 mg tablet 2 mg PO Q12H 03/21/23 [History Confirmed 07/03/23] enalapril maleate 2.5 mg tablet 2.5 mg PO DAILY 04/23/23 [History Confirmed 07/03/23] niacin 100 mg tablet 100 mg PO .as needed 04/23/23 [History Confirmed 07/03/23] Post menopausal: Yes Patient : No : No PFSH Medical History Anxiety Arthritis Asbestos exposure Asthma Atherosclerosis of coronary artery of [place] heart without angina pectoris Benign paroxysmal positional vertigo Dyspnea Epistaxis Essential (primary) hypertension History of hemorrhoids IBS (irritable bowel syndrome) Pure hypercholesterolemia Secondary pulmonary arterial hypertension Shoulder pain Stomach ulcer Surgical History H/O eye surgery H/O tubal ligation History of back surgery History of coronary artery stent placement (01/07/18) History of tonsillectomy S/P trigger finger release Family History Mother CVA (cerebral vascular accident) Myocardial infarction, Onset Age: 93 Breast cancerFather Myocardial infarction NE age 60 CAD (coronary artery disease) CABG x 3 Social History household members: none current occupational status: retired Smoking Status: Former smoker quit date: 06/23/07 pack-years: 12 alcohol intake: current alcohol intake frequency: a few times a month substance use type: does not use caffeine: Yes Type: carbonated beverages seatbelt use: always do you feel safe at home: Yes HPI D&C Symphion Details: MARIPOSA PIZARRO is a 77 year old who presents for preop visit she has an endometrial polyp planning d and c hysteroscopy symphion, needs cardiac clearance- will clairfy if this has been done Female Reproductive History Menopausal Symptoms: No night sweats History 3 Elective abortions Hx Para 1 Spontaneous abortions Hx # Term Pregnancies Ectopic pregnancies Hx # Pregnancies Multiple births # of living children 1 Past Pregnancies Del. Date Name GA/Weeks Outcome Route Bth Weight Gen [facility] FOB Unknown Sonal 1983 ROS Const Constitutional: Denies fatigue, night sweats, weight gain or weight loss ENT ENT: Reports system reviewed and no additional complaints, except as documented Cardio Card: Denies chest pain Resp Resp: Denies cough or dyspnea GI GI: Reports as per HPI; Denies abdominal pain, constipation, nausea or vomiting : Denies nipple discharge, urinary frequency, urinary incontinence, urinary hesitancy, urinary urgency, vaginal discharge, vaginal dryness, vaginal odor or vaginal pruritus Musc Musc: Denies arthralgias, back pain or muscle weakness Skin Skin/Breast: Denies alopecia, change in hair, dry skin, breast mass, breast pain, breast skin changes or nipple discharge Neuro Neuro: Reports system reviewed and no additional complaints, except as documented Psych Psych: Reports system reviewed and no additional complaints, except as documented Endo Endo: Denies cold intolerance, excessive sweating, heat intolerance or polydipsia Navarro/Lymph Hematologic/Lymphatic: Denies easy bleeding, Denies easy bruising and Denies lymphadenopathy Exam Const General: cooperative, healthy appearing, comfortable and no acute distress Orientation: alert HENMT Head: normal to inspection and normocephalic Ears: hearing grossly normal bilaterally and external ears normal Nose: external nose normal and nares normal Face and sinus: normal facial exam Neck Neck: normal visual inspection and no lymphadenopathy Thyroid: thyroid normal Chest Chest palpation & inspection: normal inspection of the chest Resp Effort & Inspection: normal respiratory effort Auscultation: clear to auscultation bilaterally Cardio Rate: regular rate Rhythm: regular rhythm Heart Sounds: S1 normal and S2 normal GI Inspection: normal to inspection and non-distended Palpation: soft and no hepatosplenomegaly Musc Other: gross motor intact no deficits, full bilateral strength Skin General: no rashes or lesions noted Neuro General: patient alert, patient awake, moves all extremities and no focal motor deficits Motor: muscle tone normal throughout Extrem General: normal to inspection and no pedal edema Psych Appearance: grossly normal Mental Status: mental status grossly normal Affect: normal affect Speech and Movement: speech and movement normal Coding Level of Care Code No Charge Diagnoses Endometrial polyp N84.0 Atherosclerosis of [place] coronary artery of [place] heart without angina pectoris I25.10 Coronary Disease-Associated Artery/Lesion type: [place] artery History of coronary artery stent placement Z95.5 Assessment and Plan Assessment and Plan (1) Endometrial polyp: Status: Acute Comment: recommend d and c hysteroscopy. symphion. (2) Atherosclerosis of coronary artery of [place] heart without angina pectoris: Status: Chronic Qualifiers: Coronary Disease-Associated Artery/Lesion type: [place] artery QualifiedCode(s): I25.10 - Atherosclerotic heart disease of [place] coronary artery without angina pectoris (3) History of coronary artery stent placement: Status: Chronic Comment: [id number] LCx w/ 2.5 x 16 mm Synergy MR DAVID 12/17/17; [id number]-Cmhg RPDA w/ 2.25 x 12 mm Synergy stent 01/07/2018 Plan After discussing the patient's diagnosis and treatment plan options, patient wishes to proceed with surgical management. I have discussed with the patient the risks, benefits, and alternatives of the procedure which include but are notlimited to risks of anesthesia, bleeding, infection, possible damage to bowel, bladder, or surrounding vasculature which could lead to additional surgery to evaluate any complications. Patient agrees to procedure and wishes to proceed. ACOG/uptodate references given for additional information regarding procedure. UPDATE- I have seen the patient and performed any clinically relevant updates to the history and physical exam. Katie Segura MD 07/22/23 1211 <Electronically signed by Katie Segura MD> Cosigner Signature (if applicable): CC: Dr. Emily Jenkins, DO; Dr. Katie Segura MD~ Signed [facility] Work Phone: 1(211) 912-958101-30-2024 Procedure [facility] 03-17-2023 Hospital Discharge instructions Patient Education 03/17/2023 10:25:20 Sciatica Sciatica Sciatica is a condition that causes pain in the lower back that spreads down into the buttock, hip,and leg. Sometimes the leg pain can happen without any back pain. Sciatica happens when a spinal nerve is irritated or has pressure put on it as comes out of the spinal canal in the lower back. This most often happens when a bulge or rupture of a nearby spinal disk presses on the nerve. Sciatica can also be caused by a narrowing of the spinal canal (spinal stenosis) or spasm of the muscle in the buttocks that the sciatic nerve passes through (pyriform muscle). Sciatica is also called lumbar radiculopathy. Sciatica may begin after a sudden twisting or bending force, such as in a car accident. Or it can happen after a simple awkward movement. In either case, muscle spasm often also happens. Muscle spasmmakes the pain worse. A healthcare provider makes a diagnosis of sciatica from your symptoms and a physical exam. Unless you had an injury from a car accident or fall, you usually won t have X-rays taken at this time. This is because the nerves and disks in your back can t be seen on an X-ray. If the provider sees signsof a compressed nerve, you will need to schedule an MRI scan as an outpatient. Signs of a compressed nerve include loss of strength in a leg. Most sciatica gets better with medicine, exercise, and physical therapy. If your symptoms continue after at least 3 months of medical treatment, you may need surgery or injections to your lower back. Home care Follow these tips when caring for yourself at home: You may need to stay in bed the first few days. But as soon as possible, begin sitting up or walking. This will help you avoid problems that come from staying in bed for long periods. When in bed, try to find a position that is comfortable. A firm mattress is best. Try lying flat onyour back with pillows under your knees. You can also try lying on your side with your knees bent up toward your chest and a pillow between your knees. Avoid sitting for long periods. This puts more stress on your lower back than standing or walking. Use heat from a hot shower, hot bath, or heating pad to help ease pain. Massage can also help. You can also try using an ice pack. You can make your own ice pack by putting ice cubes in a plastic bag. Wrap the bag in a thin towel. Try both heat and cold to see which works best. Use the method that feels best for 20 minutes several times a day. You may use acetaminophen or ibuprofen to ease pain, unless another pain medicine was prescribed. Note: If you have chronic liver or kidney disease, talk with your healthcare provider before taking these medicines. Also talk with your provider if you ve had a stomach ulcer or gastrointestinal bleeding. Use safe lifting methods. Don t lift anything heavier than 15 pounds until all of the pain is gone. Follow-up care Follow up with your healthcare provider, or as advised. You may need physical therapy or additionaltests. If X-rays were taken, a radiologist will look at them. You will be told of any new findings that may affect your care. When to seek medical advice Call your healthcare provider right away if any of these occur: Pain gets worse even after taking prescribed medicine Weakness or numbness in 1 or both legs or hips Numbness in your groin or genital area You can t control your bowel or bladder Fever Redness or swelling over your back or spine [id number] [employer]. [address] [place] [address], [place] [address]. All rights reserved. This information is not intended as a substitute for professional medical care. Always follow yourhealthcare professional's instructions. Follow Up Care 03/17/2023 08:27:19 With:EMILY JENKINS DO Address: [address] [place] [address] [address] [place] [address]- When:2-4 days [facility] Esterrosa Avila 09-25-2023 Note Discharge Instructions Thank you for allowing [facility] to assist you with your healthcare needs. The following is importantdischarge information regarding your hospital visit. Diagnosis from Today's Visit Hip pain Hip pain-swelling What to Do Next Instructions from Your Care Team No qualifying data available. Post Acute Orders No qualifying data available. You Need to Schedule the Following Appointments Follow Up with EMILY JENKINS DO When Within 2-4 days Where: [address] [facility] [facility] [address] [address] [place] [address]- Allergies Darvon Medications Please ask your primary doctor or pharmacist before taking any other medication not listed, including over the counter drugs, herbal medications, vitamins and or supplements as they may interact withyour home medications. What How Much When Why Instructions Last Dose New naproxen (naproxen 250 mg oral tablet) 1 tab(s) by mouth Two (2) times a day Duration: 7 Days Printed Prescription New tiZANidine (tiZANidine 2 mg oral tablet) 1 tab(s) by mouth Every 8 hours as needed for as needed for muscle spasm Duration: 7 Days Printed Prescription Unchanged acetaminophen-hydrocodone ([place] 325- 5 mg oral tablet) 1 tab(s) by mouth Every 6 hours as needed for for pain Lumbosacral sprain Left hip pain Duration: 3 Days Unchanged calcium-vitamin D (Caltrate 600 + D oral tablet) 1 tab(s) by mouth Every day Unchanged cholecalciferol (Vitamin D3 125 mcg (5000 intl units) oral capsule) 1 cap by mouth Once a day Unchanged cyclobenzaprine (cyclobenzaprine 5 mg oral tablet) 1 tab(s) by mouth Three (3) times a day as needed for Muscle spasm Duration: 7 Days Unchanged enalapril (enalapril 2.5 mg oral tablet) 0.5 tab(s) by mouth Two (2) times a day Unchanged LORazepam (LORazepam 0.5 mg oral tablet) 1 tab(s) by mouth Once a day as needed for as needed for anxiety Unchanged propranolol (propranolol 60 mg oral capsule, extended release) 1 cap by mouth Once a day Unchanged rosuvastatin (rosuvastatin 5 mg oral tablet) 1 tab(s) by mouth Once a day Please take this list to your next doctor s visit. Bring all medications you take, including over the counter medications, herbals and other supplements with you to your doctor s visit. Patients and families are reminded to discard old lists and to update any records with all medication providers or retail pharmacies. Medication Leaflets tizanidine (nahomi CHARLES audie tee) Jacquesflex What is the most important information I should know about tizanidine? You should not take tizanidine if you are also taking fluvoxamine or ciprofloxacin. Do not use tizanidine at a time when you need muscle tone for safe balance and movement during certain activities. What is tizanidine? Tizanidine is a muscle relaxer that is used to treat spasticity by temporarily relaxing muscle tone. Tizanidine may also be used for purposes not listed in this medication guide. What should I discuss with my healthcare provider before taking tizanidine? You should not use tizanidine if you are allergic to it, or if: you also take the antidepressant fluvoxamine (Luvox); or you also take the antibiotic ciprofloxacin (Cipro). Tell your doctor if you have ever had: liver disease; kidney disease; or low blood pressure. It is not known whether this medicine will harm an unborn baby. Tell your doctor if you are or plan to become . It may not be safe to breastfeed while using this medicine. Ask your doctor about any risk. How should I take tizanidine? Follow all directions on your prescription label and read all medication guides or instruction sheets. Your doctor may occasionally change your dose. Use the medicine exactly as directed. Tizanidine is usually taken up to 3 times in one day. Allow 6 to 8 hours to pass between doses. Do not take more than three doses (36 mg) in a 24-hour period. Too much of this medicine can damage your liver. You may take tizanidine with or without food, but take it the same way each time. Switching betweentaking tizanidine with food and taking it without food can make the medicine less effective or cause increased side effects. Switching between tizanidine tablets and capsules may cause changes in side effects or how well themedicine works. Taking the tablets with food can increase your blood levels of tizanidine. Taking the capsules with food can decrease your blood levels of tizanidine. If you make any changes in how you take tizanidine, tell your doctor if you notice any change in side effects or in how well the medicine works. Tizanidine is a short-acting medication, and its effects will be most noticeable between 1 and 3 hours after you take it. You should take tizanidine only for daily activities that require relief frommuscle spasms. You will need frequent medical tests. If you stop using tizanidine suddenly after long-term use, you may have withdrawal symptoms such asdizziness, fast heartbeats, tremors, and anxiety. Ask your doctor how to safely stop using this medicine. Store at room temperature away from moisture and heat. What happens if I miss a dose? Take the medicine as soon as you can, but skip the missed dose if it is almost time for your next dose. Do not take two doses at one time. What happens if I overdose? Seek emergency medical attention or call the Poison Help line at . Overdose symptoms may include weakness, drowsiness, confusion, slow heart rate, shallow breathing, feeling light-headed, or fainting. What should I avoid while taking tizanidine? Do not use tizanidine at a time when you need muscle tone for safe balance and movement during certain activities. In some situations, it may be dangerous for you to have reduced muscle tone. Drinking alcohol with this medicine can cause side effects. Avoid driving or hazardous activity until you know how this medicine will affect you. Your reactions could be impaired. Avoid getting up too fast from a sitting or lying position, or you may feel dizzy. What are the possible side effects of tizanidine? Get emergency medical help if you have signs of an allergic reaction: hives; difficult breathing; swelling of your face, lips, tongue, or throat. Call your doctor at once if you have: a light-headed feeling, like you might pass out; weak or shallow breathing; confusion, hallucinations; or pain or burning when you urinate. Common side effects may include: drowsiness, dizziness, weakness; feeling nervous; blurred vision; flu-like symptoms; dry mouth, trouble speaking; abnormal liver function tests; runny nose, sore throat; urination problems, painful urination; vomiting, constipation; or uncontrolled muscle movements. This is not a complete list of side effects and others may occur. Call your doctor for medical advice about side effects. You may report side effects to FDA at 1-655-CLG-9602. What other drugs will affect tizanidine? Taking tizanidine with other drugs that make you sleepy or slow your breathing can cause dangerous side effects or . Ask your doctor before using opioid medication, a sleeping pill, a muscle relaxer, or medicine for anxiety or seizures. Tell your doctor about all your other medicines, especially: acyclovir; ticlopidine; zileuton; control pills; an antibiotic--ciprofloxacin, levofloxacin, moxifloxacin, or ofloxacin; blood pressure medicine--clonidine, guanfacine, methyldopa; heart rhythm medicine--amiodarone, mexiletine, propafenone, verapamil; or stomach acid medicine--cimetidine, famotidine. This list is not complete. Other drugs may affect tizanidine, including prescription and nlcu-kwm-icnfmqw medicines, vitamins, and herbal products. Not all possible drug interactions are listed here. Where can I get more information? Your pharmacist can provide more information about tizanidine. Remember, keep this and all other medicines out of the reach of children, never share your medicines with others, and use this medication only for the indication prescribed. Every effort has been made to ensure that the information provided by [employer]. ('[employer]') is accurate, up-to-date, and complete, but no guarantee is made to that effect. Drug information contained herein may be time sensitive. [employer] information has been compiled for use by healthcare practitioners and consumers in the [place] and therefore [employer] does not warrant that uses outside of the [place] are appropriate, unless specifically indicated otherwise. [employer] drug information does not endorse drugs, diagnose patients or recommend therapy. [employer] drug information isan informational resource designed to assist licensed healthcare practitioners in caring for their p atients and/or to serve consumers viewing this service as a supplement to, and not a substitute for, the expertise, skill, knowledge and judgment of healthcare practitioners. The absence of a warningfor a given drug or drug combination in no way should be construed to indicate that the drug or drug combination is safe, effective or appropriate for any given patient. [employer] does not assume any responsibility for any aspect of healthcare administered with the aid of information [employer] provides. The information contained herein is not intended to cover all possible uses, directions, precautions, warnings, drug interactions, allergic reactions, or adverse effects. If you have questions about the drugs you are taking, check with your doctor, nurse or pharmacist. Copyright 9002-5455 [employer]. Version: 4.01. Revision Date: 08/28/2020. naproxen (na PROX en) Aleve, Aleve Back and Muscle Pain, Aleve Easy Open Arthritis, Aleve Liquid Gels, Anaprox-DS, EC-Naprosyn, Naprelan, Naprosyn What is the most important information I should know about naproxen? Naproxen can increase your risk of fatal heart attack or stroke. Do not use this medicine just before or after heart bypass surgery (coronary artery bypass graft, or CABG). Naproxen may also cause stomach or intestinal bleeding, which can be fatal. What is naproxen? Naproxen is a nonsteroidal anti-inflammatory drug (NSAID). Naproxen is used to treat pain or inflammation caused by conditions such as arthritis, ankylosing spondylitis, tendinitis, bursitis, gout, or menstrual cramps. The delayed-release or extended-release tablets are slower-acting forms of naproxen that are used only for treating chronic conditions such as arthritis or ankylosing spondylitis. These forms of naproxen will not work fast enough to treat acute pain. Naproxen may also be used for purposes not listed in this medication guide. What should I discuss with my healthcare provider before taking naproxen? Naproxen can increase your risk of fatal heart attack or stroke, even if you don't have any risk factors. Do not use this medicine just before or after heart bypass surgery (coronary artery bypass graft, or CABG). Naproxen may also cause stomach or intestinal bleeding, which can be fatal. These conditions can occur without warning while you are using naproxen, especially in older adults. You should not use naproxen if you are allergic to it, or if you have ever had an asthma attack or severe allergic reaction after taking aspirin or an NSAID. Ask a doctor before giving naproxen to a child younger than 12 years old. Ask a doctor or pharmacist if this medicine is safe to use if you have: heart disease, high blood pressure, high cholesterol, diabetes, or if you smoke; a heart attack, stroke, or blood clot; stomach ulcers or bleeding; asthma; liver or kidney disease; fluid retention; or if you take aspirin to prevent heart attack or stroke. If you are , you should not take naproxen unless your doctor tells you to. Taking an NSAID during the last 20 weeks of can cause serious heart or kidney problems in the unborn baby and possible complications with your . It may not be safe to breastfeed while using this medicine. Ask your doctor about any risk. How should I take naproxen? Use exactly as directed on the label, or as prescribed by your doctor. Use the lowest dose that is effective in treating your condition. Shake the oral suspension (liquid) before you measure a dose. Measure a dose with the supplied measuring device (not a kitchen spoon). Take this medicine with food or milk if it upsets your stomach. Always follow directions on the medicine label about giving this medicine to a child. Naproxen doses are based on weight in children. Your child's dose needs may change if the child gains or loses weight. If you use naproxen long-term, you may need frequent medical tests. This medicine can affect the results of certain medical tests. Tell any doctor who treats you that you are using naproxen. Store at room temperature away from moisture, heat, and light. Keep the bottle tightly closed when not in use. What happens if I miss a dose? Since naproxen is used when needed, you may not be on a dosing schedule. Skip any missed dose if it's almost time for your next dose. Do not use two doses at one time. What happens if I overdose? Seek emergency medical attention or call the Poison Help line at . What should I avoid while taking naproxen? Avoid drinking alcohol. It may increase your risk of stomach bleeding. Avoid taking aspirin or other NSAIDs unless your doctor tells you to. Ask a doctor or pharmacist before using other medicines for pain, fever, swelling, or cold/flu symptoms. They may contain ingredients similar to naproxen (such as aspirin, ibuprofen, or ketoprofen). Ask your doctor before using an antacid, and use only the type your doctor recommends. Some antacids can make it harder for your body to absorb naproxen. What are the possible side effects of naproxen? Get emergency medical help if you have signs of an allergic reaction (runny or stuffy nose, wheezing or trouble breathing, hives, swelling in your face or throat) or a severe skin reaction (fever, sore throat, burning eyes, skin pain, red or purple skin rash with blistering and peeling). Stop using naproxen and seek medical treatment if you have a serious drug reaction that can affect many parts of your body. Symptoms may include skin rash, fever, swollen glands, muscle aches, severeweakness, unusual bruising, or yellowing of your skin or eyes. Get emergency medical help if you have signs of a heart attack or stroke: chest pain spreading to your jaw or shoulder, sudden numbness or weakness on one side of the body, slurred speech, leg swelling, feeling short of breath. Stop using naproxen and call your doctor at once if you have: shortness of breath (even with mild exertion); swelling or rapid weight gain; the first sign of any skin rash or blister, no matter how mild; signs of stomach bleeding--bloody or tarry stools, coughing up blood or vomit that looks like coffee grounds; liver problems--nausea, upper stomach pain, loss of appetite, dark urine, valery- colored stools, jaundice (yellowing of the skin or eyes); kidney problems--little or no urination, painful urination, swelling in your feet or ankles; or low red blood cells (anemia)--pale skin, unusual tiredness, feeling light-headed or short of breath, cold hands and feet. Common side effects may include: headache; indigestion, heartburn, stomach pain; or flu symptoms; This is not a complete list of side effects and others may occur. Call your doctor for medical advice about side effects. You may report side effects to FDA at 0-946-TFW-6617. What other drugs will affect naproxen? Ask your doctor before using naproxen if you take an antidepressant. Taking certain antidepressantswith an NSAID may cause you to bruise or bleed easily. Ask a doctor or pharmacist before using naproxen with any other medications, especially: other NSAIDs or salicylates (diflunisal, salsalate); antacids and sucralfate; cholestyramine; cyclosporine; digoxin; lithium; methotrexate; pemetrexed; probenecid; warfarin (Coumadin, Jantoven) or similar blood thinners; a diuretic or 'water pill'; or heart or blood pressure medication. This list is not complete. Other drugs may affect naproxen, including prescription and zqxh-ied-czkprpr medicines, vitamins, and herbal products. Not all possible drug interactions are listed here. Where can I get more information? Your pharmacist can provide more information about naproxen. Remember, keep this and all other medicines out of the reach of children, never share your medicines with others, and use this medication only for the indication prescribed. Every effort has been made to ensure that the information provided by [employer]. ('[employer]') is accurate, up-to-date, and complete, but no guarantee is made to that effect. Drug information contained herein may be time sensitive. [employer] information has been compiled for use by healthcare practitioners and consumers in the [place] and therefore [employer] does not warrant that uses outside of the [place] are appropriate, unless specifically indicated otherwise. [employer] drug information does not endorse drugs, diagnose patients or recommend therapy. [employer] drug information isan informational resource designed to assist licensed healthcare practitioners in caring for their p atients and/or to serve consumers viewing this service as a supplement to, and not a substitute for, the expertise, skill, knowledge and judgment of healthcare practitioners. The absence of a warningfor a given drug or drug combination in no way should be construed to indicate that the drug or drug combination is safe, effective or appropriate for any given patient. [employer] does not assume any responsibility for any aspect of healthcare administered with the aid of information [employer] provides. The information contained herein is not intended to cover all possible uses, directions, precautions, warnings, drug interactions, allergic reactions, or adverse effects. If you have questions about the drugs you are taking, check with your doctor, nurse or pharmacist. Copyright 9485-8892 [employer]. Version: 22.. Revision Date: 01/23/2023. Education Materials Sciatica Sciatica is a condition that causes pain in the lower back that spreads down into the buttock, hip,and leg. Sometimes the leg pain can happen without any back pain. Sciatica happens when a spinal nerve is irritated or has pressure put on it as comes out of the spinal canal in the lower back. This most often happens when a bulge or rupture of a nearby spinal disk presses on the nerve. Sciatica can also be caused by a narrowing of the spinal canal (spinal stenosis) or spasm of the muscle in the buttocks that the sciatic nerve passes through (pyriform muscle). Sciatica is also called lumbar radiculopathy. Sciatica may begin after a sudden twisting or bending force, such as in a car accident. Or it can happen after a simple awkward movement. In either case, muscle spasm often also happens. Muscle spasmmakes the pain worse. A healthcare provider makes a diagnosis of sciatica from your symptoms and a physical exam. Unless you had an injury from a car accident or fall, you usually won t have X-rays taken at this time. This is because the nerves and disks in your back can t be seen on an X-ray. If the provider sees signsof a compressed nerve, you will need to schedule an MRI scan as an outpatient. Signs of a compressed nerve include loss of strength in a leg. Most sciatica gets better with medicine, exercise, and physical therapy. If your symptoms continue after at least 3 months of medical treatment, you may need surgery or injections to your lower back. Home care Follow these tips when caring for yourself at home: You may need to stay in bed the first few days. But as soon as possible, begin sitting up or walking. This will help you avoid problems that come from staying in bed for long periods. When in bed, try to find a position that is comfortable. A firm mattress is best. Try lying flat onyour back with pillows under your knees. You can also try lying on your side with your knees bent up toward your chest and a pillow between your knees. Avoid sitting for long periods. This puts more stress on your lower back than standing or walking. Use heat from a hot shower, hot bath, or heating pad to help ease pain. Massage can also help. You can also try using an ice pack. You can make your own ice pack by putting ice cubes in a plastic bag. Wrap the bag in a thin towel. Try both heat and cold to see which works best. Use the method that feels best for 20 minutes several times a day. You may use acetaminophen or ibuprofen to ease pain, unless another pain medicine was prescribed. Note: If you have chronic liver or kidney disease, talk with your healthcare provider before taking these medicines. Also talk with your provider if you ve had a stomach ulcer or gastrointestinal bleeding. Use safe lifting methods. Don t lift anything heavier than 15 pounds until all of the pain is gone. Follow-up care Follow up with your healthcare provider, or as advised. You may need physical therapy or additionaltests. If X-rays were taken, a radiologist will look at them. You will be told of any new findings that may affect your care. When to seek medical advice Call your healthcare provider right away if any of these occur: Pain gets worse even after taking prescribed medicine Weakness or numbness in 1 or both legs or hips Numbness in your groin or genital area You can t control your bowel or bladder Fever Redness or swelling over your back or spine 5329-8418 [employer]. [address] [place] [address]. All rights reserved. This information is not intended as a substitute for professional medical care. Always follow yourhealthcare professional's instructions. Additional Information VACCINATE! IT SAVES LIVES! Members of the community who have not yet received the COVID-19 vaccine and would like to receive it can visit one of [facility] vaccine clinics. There are many vaccine clinic locations within the [facility]. For locations and available times, please visit [email or web address] It is important to note that some COVID mobile vaccine clinics are held outdoors and may be canceled in rainy or stormy conditions. To learn more about pediatric vaccinations (ages 5-11), we invite you to visit the [facility] webpage. [email or web address]/[email or web address] [email or web address] learn more about the COVID-19 vaccine, we invite you to visit the CDC website for a list of frequently asked questions. https://www.cdc.gov/coronavirus/2019-ncov/vaccines/faq.html [facility] Patient Portal Access Instructions: Stay connected with your healthcare team and access your personal medical information anytime with the [facility] Patient Portal. If you would like a full copy of your medical records please contact the [facility] Medical Records Department Friday through Friday between 8a.m. and 4:30p.m. Please follow the directions below to access the portal: 1.Access the email account you provided upon registration to the [facility].2.Look for an invitation email from [facility].3.Open the email and access the invitation link: Accept Invitation to [facility]4.Fill in the required ahuja to create your account. Sign into [email or web address] with your username and password that you created in the above steps to stay up to date. You can then view a summary of results, a summary of your visits, and the ability to download your summaries to your computer or send the information securely to a physician. Remember that your healthcare information is confidential, so carefully consider who you will allow to register on the [facility] Patient Portal for access to your information. You can also access the [facility] Patient Portal on the [facility]. Simply click on "Health Records" under "HealthData" and then click on the [facility] logo. HOW TO SAFELY DISPOSE OF PRESCRIPTION MEDICATIONS Please use one of the following methods to safely dispose of your unused medications. 1.Use a drug disposal kit: the drug disposal pouch allows you to safely discard your old and unuseddrugs. Ask your nurse to give you one when you are discharged.2.Visit a local take-back location: Many local pharmacies and police departments have programs that collect old and unwanted prescriptiondrugs. Call your local pharmacy or go to http://[employer]/3Q9Cj1s to find one close to you.3.Make use of household items: Use cat litter or old coffee grounds to dispose medications if other options arenot available. Mix your drugs with these household products, seal them in an airtight container andthrow it into the garbage. Call [facility]: [phone] to be sure your drugs can be disposed of in this way. Some medicines may require a different approach.4.Never flush your medications down the toilet. IF YOU HAVE BEEN PRESCRIBED AN OPIOIDS FOR PAIN If you have been prescribed an opioid (such as hydrocodone, oxycodone or morphine), it is critical to understand the possible side effects and risks of opioid pain medications. Even when taken as directed, opioids can have several side effects including: Tolerance, meaning you might need to take more of a medication for the same pain relief. Nausea, vomiting and/or constipation. Sleepiness, dizziness, dry mouth, confusion, depression or itching. Physical dependence, meaning you have withdrawal symptoms when a medication is stopped ? this can develop within a few days. KNOW YOUR RESPONSIBILITIES It is important to know exactly how much and how often to take the opioid pain medications you are prescribed. Never take opioids in higher amounts or more often than prescribed. Do not combine opioids with alcohol or other drugs that cause drowsiness, such as benzodiazepines, also known as benzos,including diazepam and alprazolam, muscle relaxants or sleep aids. Never sell or share prescriptionopioids. This is illegal. Store opioids in a secure place and out of reach of others (including children, family, friends and visitors). The last page(s) of this document has been signed and retained as a CHART COPY Signatures Patient Education Materials Sciatica Medication Leaflets tizanidine, naproxen My discharge plan and instructions have been reviewed and explained to me and IMOIRA SUSAN A understand my current condition and have read and understand these discharge instructions. I have received a written copy of the plan/instructions. If I have questions, I am aware that I should contact my doctor. 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 Injury may occur after a sudden forceful twisting or bending force such as in a car accident, after a simple awkward movement, or after lifting something heavy with poor body positioning. In any case, muscle spasm is often present and adds to the pain. Thankfully, most people feel better in 1 to 2 weeks, and most of the rest in 1 to 2 months. Most people can remain active. Unless you had a forceful or traumatic physical injury such as a car accident or fall, X-rays may not be ordered for the first evaluation of a back sprain or strain. If pain continues and does not respond to medical treatment, your healthcare provider may then order X-rays and other tests. Home care The following guidelines will help you care for your injury at home: When in bed, try to find a comfortable position. A firm mattress is best. Try lying flat on your back with pillows under your knees. You can also try lying on your side with your knees bent up towardyour chest and a pillow between your knees. Don't sit for long periods. Try not to take long car rides or take other trips that have you sitting for a long time. This puts more stress on the lower back than standing or walking. During the first 24 to 72 hours after an injury or flare-up, apply an ice pack to the painful area for 20 minutes. Then remove it for 20 minutes. Do this for 60 to 90 minutes, or several times a day.This will reduce swelling and pain. Be sure to wrap the ice pack in a thin towel or plastic to protect your skin. You can start with ice, then switch to heat. Heat from a hot shower, hot bath, or heating pad reduces pain and works well for muscle spasms. Put heat on the painful area for 20 minutes, then remove for 20 minutes. Do this for 60 to 90 minutes, or several times a day. Do not use a heating pad while sleeping. It can burn the skin. You can alternate the ice and heat. Talk with your healthcare provider to find out the best treatment or therapy for your back pain. Therapeutic massage will help relax the back muscles without stretching them. Be aware of safe lifting methods. Do not lift anything over 15 pounds until all of the pain is gone. Medicines Talk to your healthcare provider before using medicines, especially if you have other health problems or are taking other medicines. You may use acetaminophen or ibuprofen to control pain, unless another pain medicine was prescribed. If you have chronic conditions like diabetes, liver or kidney disease, stomach ulcers, or gastrointestinal bleeding, or are taking blood-thinner medicines, talk with your doctor before taking any medicines. Be careful if you are given prescription medicines, narcotics, or medicine for muscle spasm. They can cause drowsiness, and affect your coordination, reflexes, and judgment. Do not drive or operate heavy machinery when taking these types of medicines. Only take pain medicine as prescribed by your healthcare provider. Follow-up care Follow up with your healthcare provider, or as advised. You may need physical therapy or more testsif your symptoms get worse. If you had X-rays your healthcare provider may be checking for any broken bones, breaks, or fractures. Bruises and sprains can sometimes hurt as much as a fracture. These injuries can take time to heal completely. If your symptoms don t improve or they get worse, talk with your healthcare provider.You may need a repeat X-ray or other tests. Call 911 Call 911 if any of the following occur: Trouble breathing Confused Very drowsy or trouble awakening Fainting or loss of consciousness Rapid or very slow heart rate Loss of bowel or bladder control When to seek medical advice Call your healthcare provider right away if any of the following occur: Pain gets worse or spreads to your arms or legs Weakness or numbness in one or both arms or legs Numbness in the groin or genital area 4901-7898 [employer]. [address] [place] [address]. All rights reserved. This information is not intended as a substitute for professional medical care. Always follow [facility] hospital[facility] professional's instructions. 03/15/2023 15:25:43 Back Safety: Bending Back Safety: Bending Bending can strain or even injure your back. Follow the tips below to move safely and protect your back as you perform everyday activities. Bending over Keep your feet shoulder-width apart. Move your whole body as one unit. Bend at your hips and knees, not at your waist. Flatten your stomach and tighten your leg muscles. To keep your spine straight, let your buttocks move out behind you. Don t try to tuck them under. If you need to, place one hand on a sturdy object for support. Bending to the floor Lower yourself to one knee. If you can, rest one hand on a sturdy object to help lower yourself. Rest one arm on your raised knee. Don t bend at the waist. Do not hunch your back or neck to reach to the floor. Instead, bend more at your hips and knees to get closer. 2669-3789 [employer]. [address] [place] [address]. All rights reserved. This information is not intended as a substitute for professional medical care. Always follow yourhealthcare professional's instructions. Follow Up Care 03/15/2023 12:17:43 With:EMILY JENKINS DO Address: [address] [place] [address]- When:2-4 days [facility] 09-23-2023 Emergency department Discharge summary Discharge Instructions Thank you for allowing [facility] to assist you with your healthcare needs. The following is importantdischarge information regarding your hospital visit. Diagnosis from Today's Visit Hip pain-swelling Left hip pain Lumbosacral sprain What to Do Next Instructions from Your Care Team No qualifying data available. Post Acute Orders No qualifying data available. You Need to Schedule the Following Appointments Follow Up with EMILY JENKINS DO When Within 2-4 days Where: [address] [place] [address] [address] [place] [address]- Allergies Darvon Medications Please ask your primary doctor or pharmacist before taking any other medication not listed, including over the counter drugs, herbal medications, vitamins and or supplements as they may interact withyour home medications. What How Much When Why Instructions Last Dose New acetaminophen-hydrocodone ([place] 325- 5 mg oral tablet) 1 tab(s) by mouth Every 6 hours as needed for for pain Lumbosacral sprain Left hip pain Duration: 3 Days Printed Prescription New cyclobenzaprine (cyclobenzaprine 5 mg oral tablet) 1 tab(s) by mouth Three (3) times a day as needed for Muscle spasm Duration: 7 Days Printed Prescription Please take this list to your next doctor s visit. Bring all medications you take, including over the counter medications, herbals and other supplements with you to your doctor s visit. Patients and families are reminded to discard old lists and to update any records with all medication providers or retail pharmacies. Medication Leaflets cyclobenzaprine (ciara masterson preen) Amrix, Fexmid What is the most important information I should know about cyclobenzaprine? You should not use cyclobenzaprine if you have a thyroid disorder, heart block, congestive heart failure, a heart rhythm disorder, or you have recently had a heart attack. Do not use cyclobenzaprine if you have taken an MAO inhibitor in the past 14 days, such as isocarboxazid, linezolid, phenelzine, rasagiline, selegiline, or tranylcypromine. What is cyclobenzaprine? Cyclobenzaprine is a muscle relaxant. It works by blocking nerve impulses (or pain sensations) thatare sent to your brain. Cyclobenzaprine is used together with rest and physical therapy to relieve muscle spasms caused by painful conditions such as an injury. Cyclobenzaprine may also be used for purposes not listed in this medication guide. What should I discuss with my healthcare provider before taking cyclobenzaprine? You should not use cyclobenzaprine if you are allergic to it, or if you have: a thyroid disorder; heart block, heart rhythm disorder, congestive heart failure; or if you have recently had a heart attack. Cyclobenzaprine is not approved for use by anyone younger than 15 years old. Do not use cyclobenzaprine if you have taken an MAO inhibitor in the past 14 days. A dangerous druginteraction could occur. MAO inhibitors include isocarboxazid, linezolid, phenelzine, rasagiline, selegiline, and tranylcypromine. Some medicines can interact with cyclobenzaprine and cause a serious condition called serotonin syndrome. Be sure your doctor knows if you also take stimulant medicine, opioid medicine, herbal products, or medicine for depression, mental illness, Parkinson's disease, migraine headaches, serious infections, or prevention of nausea and vomiting. Ask your doctor before making any changes in how or when you take your medications. Tell your doctor if you have ever had: liver disease; glaucoma; enlarged prostate; or problems with urination. It is not known whether this medicine will harm an unborn baby. Tell your doctor if you are or plan to become . It may not be safe to breast-feed while using this medicine. Ask your doctor about any risk. Older adults may be more sensitive to the effects of this medicine. How should I take cyclobenzaprine? Follow all directions on your prescription label and read all medication guides or instruction sheets. Your doctor may occasionally change your dose. Use the medicine exactly as directed. Cyclobenzaprine is usually taken once daily for only 2 or 3 weeks. Follow your doctor's dosing instructions very carefully. Swallow the capsule whole and do not crush, chew, break, or open it. Take the medicine at the same time each day. Call your doctor if your symptoms do not improve after 3 weeks, or if they get worse. Store at room temperature away from moisture, heat, and light. What happens if I miss a dose? Take the medicine as soon as you can, but skip the missed dose if it is almost time for your next dose. Do not take two doses at one time. What happens if I overdose? Seek emergency medical attention or call the Poison Help line at . An overdose of cyclobenzaprine can be fatal. Overdose symptoms may include severe drowsiness, vomiting, fast heartbeats, tremors, agitation, or hallucinations. What should I avoid while taking cyclobenzaprine? Avoid driving or hazardous activity until you know how this medicine will affect you. Your reactions could be impaired. Avoid drinking alcohol. Dangerous side effects could occur. What are the possible side effects of cyclobenzaprine? Get emergency medical help if you have signs of an allergic reaction: hives; difficult breathing; swelling of your face, lips, tongue, or throat. Stop using cyclobenzaprine and call your doctor at once if you have: fast or irregular heartbeats; chest pain or pressure, pain spreading to your jaw or shoulder; or sudden numbness or weakness (especially on one side of the body), slurred speech, balance problems. Seek medical attention right away if you have symptoms of serotonin syndrome, such as: agitation, hallucinations, fever, sweating, shivering, fast heart rate, muscle stiffness, twitching, loss of coordination, nausea, vomiting, or diarrhea. Serious side effects may be more likely in older adults. Common side effects may include: drowsiness, tiredness; headache, dizziness; dry mouth; or upset stomach, nausea, constipation. This is not a complete list of side effects and others may occur. Call your doctor for medical advice about side effects. You may report side effects to FDA at 9-069-ZHR-6019. What other drugs will affect cyclobenzaprine? Using cyclobenzaprine with other drugs that make you drowsy can worsen this effect. Ask your doctorbefore using opioid medication, a sleeping pill, a muscle relaxer, or medicine for anxiety or seizures. Tell your doctor about all your other medicines, especially: bupropion (Zyban, for smoking cessation); meperidine; tramadol; verapamil; cold or allergy medicine that contains an antihistamine (Benadryl and others); medicine to treat Parkinson's disease; medicine to treat excess stomach acid, stomach ulcer, motion sickness, or irritable bowel syndrome; medicine to treat overactive bladder; or bronchodilator asthma medication. This list is not complete. Other drugs may affect cyclobenzaprine, including prescription and osgh-tbs-sntmllt medicines, vitamins, and herbal products. Not all possible drug interactions are listed here. Where can I get more information? Your pharmacist can provide more information about cyclobenzaprine. Remember, keep this and all other medicines out of the reach of children, never share your medicines with others, and use this medication only for the indication prescribed. Every effort has been made to ensure that the information provided by [employer]. [employer]') is accurate, up-to-date, and complete, but no guarantee is made to that effect. Drug information contained herein may be time sensitive. [employer] information has been compiled for use by healthcare practitioners and consumers in the [place] and therefore [employer] does not warrant that uses outside of the [place] are appropriate, unless specifically indicated otherwise. [employer] drug information does not endorse drugs, diagnose patients or recommend therapy. [employer] drug information isan informational resource designed to assist licensed healthcare practitioners in caring for their p atients and/or to serve consumers viewing this service as a supplement to, and not a substitute for, the expertise, skill, knowledge and judgment of healthcare practitioners. The absence of a warningfor a given drug or drug combination in no way should be construed to indicate that the drug or drug combination is safe, effective or appropriate for any given patient. [employer] does not assume any responsibility for any aspect of healthcare administered with the aid of information [employer] provides. The information contained herein is not intended to cover all possible uses, directions, precautions, warnings, drug interactions, allergic reactions, or adverse effects. If you have questions about the drugs you are taking, check with your doctor, nurse or pharmacist. Copyright 5377-5352 [employer]. Version: 7.01. Revision Date: 01/24/2023. acetaminophen and hydrocodone (a SEET a MIN oh fen and kevin droalex KOE done) Lortab Elixir, Verdrocet What is the most important information I should know about acetaminophen and hydrocodone? MISUSE OF OPIOID MEDICINE CAN CAUSE ADDICTION, OVERDOSE, OR . Keep the medication in a place where others cannot get to it. Taking opioid medicine during may cause life-threatening withdrawal symptoms in the . Fatal side effects can occur if you use opioid medicine with alcohol, or with other drugs that cause drowsiness or slow your breathing. Stop taking this medicine and call your doctor right away if you have skin redness or a rash that spreads and causes blistering and peeling. What is acetaminophen and hydrocodone? Acetaminophen and hydrocodone is a combination medicine used to relieve moderate to severe pain. Acetaminophen and hydrocodone contains an opioid medicine, and may be habit-forming. Acetaminophen and hydrocodone may also be used for purposes not listed in this medication guide. What should I discuss with my healthcare provider before taking acetaminophen and hydrocodone? You should not use this medicine if you are allergic to acetaminophen or hydrocodone, or if you have: severe asthma or breathing problems; or a blockage in your stomach or intestines. Tell your doctor if you have ever had: breathing problems, sleep apnea (breathing stops during sleep); liver disease; a drug or alcohol addiction; kidney disease; a head injury or seizures; urination problems; or problems with your thyroid, pancreas, or gallbladder. If you use opioid medicine while you are , your baby could become dependent on the drug. This can cause life-threatening withdrawal symptoms in the baby after it is born. Babies born dependent on opioids may need medical treatment for several weeks. Ask a doctor before using opioid medicine if you are . Tell your doctor if you notice severe drowsiness or slow breathing in the nursing baby. How should I take acetaminophen and hydrocodone? Follow all directions on your prescription label. Never take this medicine in larger amounts, or for longer than prescribed. An overdose can damage your liver or cause . Tell your doctor if you feel an increased urge to use more of this medicine. Never share this medicine with another person, especially someone with a history of drug abuse or addiction. MISUSE CAN CAUSE ADDICTION, OVERDOSE, OR . Keep the medicine in a place where others cannot get to it. Selling or giving away this medicine is against the law. Measure liquid medicine carefully. Use the dosing syringe provided, or use a medicine dose-measuring device (not a kitchen spoon). If you need surgery or medical tests, tell the doctor ahead of time that you are using this medicine. You should not stop using this medicine suddenly. Follow your doctor's instructions about tapering your dose. Store at room temperature away from moisture and heat. Keep track of your medicine. You should be aware if anyone is using it improperly or without a prescription. Do not keep leftover opioid medication. Just one dose can cause in someone using this medicine accidentally or improperly. Ask your pharmacist where to locate a drug take-back disposal program.If there is no take-back program, flush the unused medicine down the toilet. What happens if I miss a dose? Since this medicine is used for pain, you are not likely to miss a dose. Skip any missed dose if itis almost time for your next dose. Do not use two doses at one time. What happens if I overdose? Seek emergency medical attention or call the Poison Help line at . An overdose of this medicine can be fatal, especially in a child or other person using the medicine without a prescription. Overdose symptoms may include nausea, vomiting, sweating, severe drowsiness, pinpoint pupils, slow breathing, or no breathing. Your doctor may recommend you get naloxone (a medicine to reverse an opioid overdose) and keep it with you at all times. A person caring for you can give the naloxone if you stop breathing or don't wake up. Your caregiver must still get emergency medical help and may need to perform CPR (cardiopulmonary resuscitation) on you while waiting for help to arrive. Anyone can buy naloxone from a pharmacy or local health department. Make sure any person caring foryou knows where you keep naloxone and how to use it. What should I avoid while taking acetaminophen and hydrocodone? Avoid driving or operating machinery until you know how this medicine will affect you. Dizziness ordrowsiness can cause falls, accidents, or severe injuries. Do not drink alcohol. Dangerous side effects or could occur. Ask a doctor or pharmacist before using any other medicine that may contain acetaminophen (sometimes abbreviated as APAP). Taking certain medications together can lead to a fatal overdose. What are the possible side effects of acetaminophen and hydrocodone? Get emergency medical help if you have signs of an allergic reaction: hives; difficulty breathing; swelling of your face, lips, tongue, or throat. Opioid medicine can slow or stop your breathing, and may occur. A person caring for you should give naloxone and/or seek emergency medical attention if you have slow breathing with long pauses,blue colored lips, or if you are hard to wake up. In rare cases, acetaminophen may cause a severe skin reaction that can be fatal. This could occur even if you have taken acetaminophen in the past and had no reaction. Stop taking this medicine and call your doctor right away if you have skin redness or a rash that spreads and causes blistering andpeeling. Call your doctor at once if you have: noisy breathing, sighing, shallow breathing, breathing that stops; a light-headed feeling, like you might pass out; liver problems--nausea, upper stomach pain, tiredness, loss of appetite, dark urine, valery-colored stools, jaundice (yellowing of the skin or eyes); low cortisol levels-- nausea, vomiting, loss of appetite, dizziness, worsening tiredness or weakness; o high levels of serotonin in the body--agitation, hallucinations, fever, sweating, shivering, fast heart rate, muscle stiffness, twitching, loss of coordination, nausea, vomiting, diarrhea. Serious breathing problems may be more likely in older adults and in those who are debilitated or have wasting syndrome or chronic breathing disorders. Common side effects include: dizziness, drowsiness, feeling tired; nausea, vomiting, stomach pain; constipation; or headache. This is not a complete list of side effects and others may occur. Call your doctor for medical advice about side effects. You may report side effects to FDA at 2-962-LTQ-6557. What other drugs will affect acetaminophen and hydrocodone? You may have breathing problems or withdrawal symptoms if you start or stop taking certain other medicines. Tell your doctor if you also use an antibiotic, antifungal medication, heart or blood pressure medication, seizure medication, or medicine to treat HIV or hepatitis C. Opioid medication can interact with many other drugs and cause dangerous side effects or . Be sure your doctor knows if you also use: cold or allergy medicines, bronchodilator asthma/COPD medication, or a diuretic ('water pill'); medicines for motion sickness, irritable bowel syndrome, or overactive bladder; other opioids--opioid pain medicine or prescription cough medicine; a sedative like Valium--diazepam, alprazolam, lorazepam, Xanax, Klonopin, Versed, and others; drugs that make you sleepy or slow your breathing--a sleeping pill, muscle relaxer, medicine to treat mood disorders or mental illness; drugs that affect serotonin levels in your body--a stimulant, or medicine for depression, Parkinson's disease, migraine headaches, serious infections, or nausea and vomiting. This list is not complete. Other drugs may affect acetaminophen and hydrocodone, including prescription and vkjc-wmy-pgsraxk medicines, vitamins, and herbal products. Not all possible interactions are listed here. Where can I get more information? Your doctor or pharmacist can provide more information about acetaminophen and hydrocodone. Remember, keep this and all other medicines out of the reach of children, never share your medicines with others, and use this medication only for the indication prescribed. Every effort has been made to ensure that the information provided by [employer]') is accurate, up-to-date, and complete, but no guarantee is made to that effect. Drug information contained herein may be time sensitive. [employer] information has been compiled for use by healthcare practitioners and consumers in the [place] and therefore [employer] does not warrant that uses outside of the [place] are appropriate, unless specifically indicated otherwise. [employer] drug information does not endorse drugs, diagnose patients or recommend therapy. [employer] drug information isan informational resource designed to assist licensed healthcare practitioners in caring for their p atients and/or to serve consumers viewing this service as a supplement to, and not a substitute for, the expertise, skill, knowledge and judgment of healthcare practitioners. The absence of a warningfor a given drug or drug combination in no way should be construed to indicate that the drug or drug combination is safe, effective or appropriate for any given patient. [employer] does not assume any responsibility for any aspect of healthcare administered with the aid of information [employer] provides. The information contained herein is not intended to cover all possible uses, directions, precautions, warnings, drug interactions, allergic reactions, or adverse effects. If you have questions about the drugs you are taking, check with your doctor, nurse or pharmacist. Copyright 6571-8835 [facility]. Version: 19.. Revision Date: 02/10/2023. Education Materials Back Sprain or Strain Injury to the muscles (strain) or ligaments (sprain) around the spine can be troubling. Injury may occur after a sudden forceful twisting or bending force such as in a car accident, after a simple awkward movement, or after lifting something heavy with poor body positioning. In any case, muscle spasm is often present and adds to the pain. Thankfully, most people feel better in 1 to 2 weeks, and most of the rest in 1 to 2 months. Most people can remain active. Unless you had a forceful or traumatic physical injury such as a car accident or fall, X-rays may not be ordered for the first evaluation of a back sprain or strain. If pain continues and does not respond to medical treatment, your healthcare provider may then order X-rays and other tests. Home care The following guidelines will help you care for your injury at home: When in bed, try to find a comfortable position. A firm mattress is best. Try lying flat on your back with pillows under your knees. You can also try lying on your side with your knees bent up towardyour chest and a pillow between your knees. Don't sit for long periods. Try not to take long car rides or take other trips that have you sitting for a long time. This puts more stress on the lower back than standing or walking. During the first 24 to 72 hours after an injury or flare-up, apply an ice pack to the painful area for 20 minutes. Then remove it for 20 minutes. Do this for 60 to 90 minutes, or several times a day.This will reduce swelling and pain. Be sure to wrap the ice pack in a thin towel or plastic to protect your skin. You can start with ice, then switch to heat. Heat from a hot shower, hot bath, or heating pad reduces pain and works well for muscle spasms. Put heat on the painful area for 20 minutes, then remove for 20 minutes. Do this for 60 to 90 minutes, or several times a day. Do not use a heating pad while sleeping. It can burn the skin. You can alternate the ice and heat. Talk with your healthcare provider to find out the best treatment or therapy for your back pain. Therapeutic massage will help relax the back muscles without stretching them. Be aware of safe lifting methods. Do not lift anything over 15 pounds until all of the pain is gone. Medicines Talk to your healthcare provider before using medicines, especially if you have other health problems or are taking other medicines. You may use acetaminophen or ibuprofen to control pain, unless another pain medicine was prescribed. If you have chronic conditions like diabetes, liver or kidney disease, stomach ulcers, or gastrointestinal bleeding, or are taking blood-thinner medicines, talk with your doctor before taking any medicines. Be careful if you are given prescription medicines, narcotics, or medicine for muscle spasm. They can cause drowsiness, and affect your coordination, reflexes, and judgment. Do not drive or operate heavy machinery when taking these types of medicines. Only take pain medicine as prescribed by your healthcare provider. Follow-up care Follow up with your healthcare provider, or as advised. You may need physical therapy or more testsif your symptoms get worse. If you had X-rays your healthcare provider may be checking for any broken bones, breaks, or fractures. Bruises and sprains can sometimes hurt as much as a fracture. These injuries can take time to heal completely. If your symptoms don t improve or they get worse, talk with your healthcare provider.You may need a repeat X-ray or other tests. Call 911 Call 911 if any of the following occur: Trouble breathing Confused Very drowsy or trouble awakening Fainting or loss of consciousness Rapid or very slow heart rate Loss of bowel or bladder control When to seek medical advice Call your healthcare provider right away if any of the following occur: Pain gets worse or spreads to your arms or legs Weakness or numbness in one or both arms or legs Numbness in the groin or genital area 3082-8078 [employer]. [address] [place] [address], [place] [address]. All rights reserved. This information is not intended as a substitute for professional medical care. Always follow yourhealthcare professional's instructions. Back Safety: Bending Bending can strain or even injure your back. Follow the tips below to move safely and protect your back as you perform everyday activities. Bending over Keep your feet shoulder-width apart. Move your whole body as one unit. Bend at your hips and knees, not at your waist. Flatten your stomach and tighten your leg muscles. To keep your spine straight, let your buttocks move out behind you. Don t try to tuck them under. If you need to, place one hand on a sturdy object for support. Bending to the floor Lower yourself to one knee. If you can, rest one hand on a sturdy object to help lower yourself. Rest one arm on your raised knee. Don t bend at the waist. Do not hunch your back or neck to reach to the floor. Instead, bend more at your hips and knees to get closer. 0285-4238 [employer]. [address] [place] [address], [place] [address]. All rights reserved. This information is not intended as a substitute for professional medical care. Always follow yourhealthcare professional's instructions. Additional Information VACCINATE! IT SAVES LIVES! Members of the community who have not yet received the COVID-19 vaccine and would like to receive it can visit one of [facility] vaccine clinics. There are many vaccine clinic locations within the [facility]. For locations and available times, please visit [email or web address] It is important to note that some COVID mobile vaccine clinics are held outdoors and may be canceled in rainy or stormy conditions. To learn more about pediatric vaccinations (ages 5-11), we invite you to visit the [facility] webpage. [email or web address] learn more about the COVID-19 vaccine, we invite you to visit the CDC website for a list of frequently asked questions. https://www.cdc.gov/coronavirus/2019-ncov/vaccines/faq.html [facility] Patient [facility] Access Instructions: Stay connected with your healthcare team and access your personal medical information anytime with the [facility]. If you would like a full copy of your medical records please contact the [facility] Medical Records Department Friday through Friday between 8a.m. and 4:30p.m. Please follow the directions below to access the portal: 1.Access the email account you provided upon registration to the [facility].2.Look for an invitation email from [facility].3.Open the email and access the invitation link: Accept Invitation to [facility]4.Fill in the required ahuja to create your account. Sign into [email or web address] with your username and password that you created in the above steps to stay up to date. You can then view a summary of results, a summary of your visits, and the ability to download your summaries to your computer or send the information securely to a physician. Remember that your healthcare information is confidential, so carefully consider who you will allow to register on the [facility] Patient Portal for access to your information. You can also access the [facility] Patient Portal on the [facility]. Simply click on "Health Records" under "[employer]" and then click on the [employer] logo. HOW TO SAFELY DISPOSE OF PRESCRIPTION MEDICATIONS Please use one of the following methods to safely dispose of your unused medications. 1.Use a drug disposal kit: the drug disposal pouch allows you to safely discard your old and unuseddrugs. Ask your nurse to give you one when you are discharged.2.Visit a local take-back location: Many local pharmacies and police departments have programs that collect old and unwanted prescriptiondrugs. Call your local pharmacy or go to http://[employer]/5X2Al2m to find one close to you.3.Make use of household items: Use cat litter or old coffee grounds to dispose medications if other options arenot available. Mix your drugs with these household products, seal them in an airtight container andthrow it into the garbage. Call [facility]: [phone] to be sure your drugs can be disposed of in this way. Some medicines may require a different approach.4.Never flush your medications down the toilet. IF YOU HAVE BEEN PRESCRIBED AN OPIOIDS FOR PAIN If you have been prescribed an opioid (such as hydrocodone, oxycodone or morphine), it is critical to understand the possible side effects and risks of opioid pain medications. Even when taken as directed, opioids can have several side effects including: Tolerance, meaning you might need to take more of a medication for the same pain relief. Nausea, vomiting and/or constipation. Sleepiness, dizziness, dry mouth, confusion, depression or itching. Physical dependence, meaning you have withdrawal symptoms when a medication is stopped ? this can develop within a few days. KNOW YOUR RESPONSIBILITIES It is important to know exactly how much and how often to take the opioid pain medications you are prescribed. Never take opioids in higher amounts or more often than prescribed. Do not combine opioids with alcohol or other drugs that cause drowsiness, such as benzodiazepines, also known as benzos,including diazepam and alprazolam, muscle relaxants or sleep aids. Never sell or share prescriptionopioids. This is illegal. Store opioids in a secure place and out of reach of others (including children, family, friends and visitors). The last page(s) of this document has been signed and retained as a CHART COPY Signatures Patient Education Materials Back Sprain/Strain Back Safety: Bending Medication Leaflets cyclobenzaprine, acetaminophen and hydrocodone My discharge plan and instructions have been reviewed and explained to me and I,MARIPOSA PIZARRO understand my current condition and have read and understand these discharge instructions. I have received a written copy of the plan/instructions. If I have questions, I am aware that I should contact my doctor. 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 Anterolisthesis of L5 on S1 measures approximately 8 mm. Mild retrolisthesis seen of L2 and L3. There is loss of disc height and spurring most prevalent at L2-3 and L3-4. Degenerative changes seen in the visualized lumbar spine. There is mild age indeterminate T12 compression deformity. Atherosclerosis noted of the aorta. Surgical clips seen in the pelvis. IMPRESSION: Surgical and degenerative changes in the lumbar region. There is significant anterolisthesis of L5 on S1 Age indeterminate mild T12 compression deformity Interpreted by: Latrell Watters MD Preliminary Report By: Latrell Watters MD Electronically signed By Latrell Watters MD Dictated Date: 03/15/2023 1:34:08 PM Prelim Date: 03/15/2023 1:35:46 PM Sign Date: 03/15/2023 1:35:46 PM Ordering Provider: [facility]09-23-2023 Note ORIGINAL EXAMINATION: 2 XRAY VIEWS OF THE LEFT HIP. 2 VIEWS OF THE PELVIS. COMPARISON: None. HISTORY: ORDERING SYSTEM PROVIDED HISTORY: Reason for Exam: pain FINDINGS: No acute fracture or dislocation. No soft tissue abnormality. The pelvic ring is intact. Sacrum and sacral arcs are unremarkable. Varying degree of degenerative changes in the spine, sacroiliac and hip joints. Multifocal enthesopathy seen. Postsurgical changes in the lower lumbar spine, and probable tubal ligation clips in pelvis. IMPRESSION: No acute fracture or dislocation. Degenerative changes. I have personally reviewed the images of this examination and agree with the resident's findings and interpretation. Interpreted by: Latrell Watters MD Preliminary Report By: Derek Davidson Electronically signed By Latrell Watters MD Dictated Date: 03/15/2023 1:31:08 PM Prelim Date: 03/15/2023 1:34:08 PM Sign Date: 03/15/2023 1:46:35 PM Ordering Provider: [facility]02-04-[address] Guzmán [facility] July 27, 2022 8:16pm Note Date/Time July 27, 2022 7 :32pm [facility] Medical Records Department [address] [place] [address] Emergency Department Summary 07/27/22 MR#: [id number] Acct: [id number] Name: MARIPOSA PIZARRO Rep #:[id number] : 1945 76 From: Frank Guzmán MD PCP: Dr. Emily Jenkins, DO Status:RE G ER Location: ED HPI History of Present Illness Chief Complaint: Hypertension Detail of Chief Complaint: Elevated blood pressure 202/90 Informant: patient Onset/Context/Timing Onset: Today Context: Sudden Onset Timing: Continuous Quality: Elevated blood pressure Location: Initial blood pressure reading at daughters and at patient's residence Maximum Severity: Moderate Worsened by: Nothing Relieved by: Nothing Associated Symptoms Associated Symptoms: Chest discomfort at 1300 Narrative Narrative: Patient is a 76-year-old woman who is recently diagnosed with essential primary hypertension who was on enalapril 2.5 mg. Enalapril was increased to 5 mg. Sheis also on propranolol 60 mg a day. She states that around 1300 she had chest discomfort that she describes an ache. There was no associated symptoms or radiation. She has no known history of coronary artery disease. She denies indigestion or heartburn. She states she had a headache before her blood pressure was elevated. Presentlyshe does not have a headache. Denies double vision, blurred vision or change invision. She denies light sensitivity. She has ringing in ears decreased hearing. She denies trouble speech or swallowing. She presently denies chest pain. She denies shortness of breath. She denies back pain. She denies abdominal pain. She denies paresthesia, anesthesia or motor weakness upper or lower extremity. She denies problems with balance or coordination. Prior similar symptoms: Yes Recent [facility] Medical History Anxiety Arthritis Asbestos exposure Asthma Atherosclerosis of coronary artery of [place] heart without angina pectoris Benign paroxysmal positional vertigo Dyspnea Epistaxis Essential (primary) hypertension History of hemorrhoids IBS (irritable bowel syndrome) Pure hypercholesterolemia Secondary pulmonary arterial hypertension Shoulder pain Stomach ulcer Home Medications lorazepam 0.5 mg tablet 0.5 mg PO DAILY PRN PRN Anxiety 10/18/16 [History Last Taken Unknown] aspirin 81 mg tablet,delayed release (Adult Aspirin Regimen) 81 mg PO QDAY 10/22/17 [History Last Taken 01/07/18] calcium carbonate 500 mg calcium (1,250 mg) tablet (Calcium 500) 1,000 mg PO QDAY 10/23/17 [History Last Taken Unknown] cholecalciferol (vitamin D3) 125 mcg (5,000 unit) capsule 5,000 unit PO QDAY 10/23/17 [History Last Taken Unknown] loratadine 10 mg tablet (Allergy Relief (loratadine)) 10 mg PO QDAY 10/23/17 [History Last Taken Unknown] magnesium 250 mg tablet 250 mg PO QDAY 10/23/17 [History Last Taken Unknown] omeprazole 20 mg capsule,delayed release 20 mg PO QDAY PRN Heartburn 10/23/17 [History Last Taken Unknown] vitamins-lipotropics tablet 1 tab PO QDAY 10/23/17 [History Last Taken Unknown] niacin 100 mg tablet 100 mg PO .weekly 07/24/21 [History Last Taken Unknown] turmeric 400 mg capsule 800 mg PO .weekly 07/24/21 [History Last Taken Unknown] zinc gluconate 50 mg tablet 50 mg PO DAILY 07/24/21 [History Last Taken Unknown] propranolol 60 mg capsule,24 hr,extended release 60 mg PO QDAY #90 caps 11/20/21[Rx Last Taken Unknown] rosuvastatin 5 mg tablet (Crestor) 5 mg PO .3xweek #36 tabs 04/17/22 [Rx Last Taken Unknown] blood pressure monitor (Blood Pressure Kit) #1 ea 07/24/22 [Rx Last Taken Unknown] enalapril maleate 5 mg tablet 5 mg PO QDAY #30 tabs 07/24/22 [Rx Last Taken Unknown] Allergy/AdvReac Type Severity Reaction Status Date / Time risedronate sodium Allergy Other Verified 07/27/22 18:24 [From Actonel] strawberry Allergy Hives Verified 07/27/22 18:24 fish oil AdvReac skin Verified 07/27/22 18:24 erruptions onion AdvReac Vomiting Verified 07/27/22 18:24 propoxyphene HCl AdvReac Nausea/Vom/ Verified 07/27/22 18:24 [From Darvon] Diarrhea [id number] Reductase AdvReac Other Verified 07/27/22 18:24 Inhibitor Family History Mother CVA (cerebral vascular accident) Myocardial infarction, Onset Age: 93 Father Myocardial infarction NE age 60 CAD (coronary artery disease) CABG x 3 Surgical History H/O eye surgery H/O tubal ligation History of back surgery History of coronary artery stent placement (01/07/18) History of tonsillectomy Social History (Updated 07/27/22 @ 19:[address] Frank Guzmán MD) household members: none Smoking Status: Former smoker quit date: 06/23/07 pack-years: 12 alcohol intake: current alcohol intake frequency: a few times a month caffeine: Yes Type: carbonated beverages ROS ROS ED Constitutional Constitutional ED: Denies chills, fever(s) or subjective Eyes Eyes: Denies blurry vision, change in vision or diplopia ENT ENT ED: Denies ear pain, rhinorrhea or sore throat Cardiovascular Cardiovascular: Reports chest pain; Denies orthopnea, palpitations, paroxysmal nocturnal dyspnea or racing heartbeat Respiratory/Chest Respiratory/Chest: Denies cough, dyspnea, dyspnea on exertion, orthopnea or paroxysmal nocturnal dyspnea Gastrointestinal Gastrointestinal: Denies abdominal pain, nausea or vomiting Genitourinary Genitourinary ED: Denies dysuria, hematuria or urinary frequency Musculoskeletal Musculoskeletal: Denies arthralgias, back pain, myalgias or neck pain Integumentary Denies rash Neurologic Neurologic: Reports headache(s) and other Details: Greater detail HPI narrative ; Denies paresthesias or weakness Psychiatric Psychiatric: Denies anxiety Endocrine Endocrinology: Denies polydipsia or polyuria Hematologic/Lymphatic Hematologic/Lymphatic: Reports systems reviewed and no addt'l complaints, exceptas documented EXAM Physical Exam Const Vital Signs: 07/27/22 18:24 07/27/22 19:07 07/27/22 19:08 Temperature 97.1 F L Temperature Source Temporal Pulse Rate 69 69 Respiratory Rate 14 14 Blood Pressure 206/92 H 168/76 H Blood Pressure Mean 130 106 Pulse Ox 99 99 Oxygen Delivery Method Room Air Room Air Positive well nourished and well developed General Appearance ED: well developed and NAD; Negative for cyanotic, diaphoretic or pallor HEENT Reports moist mucous membranes HEENT Narrative: Head is atraumatic normocephalic. Ears normal. TMs normal. Nares patent. Uvula midline. No deviation tongue or protrusion. There is no erythema or exudate of the posterior pharynx. Eyes PERRL and EOMs intact bilaterally Eyes Narrative: There is no nystagmus. There is no papilledema. There is no AV nicking. General Eye ED: Negative for pale conjunctiva or scleral icterus Neck no lymphadenopathy, supple and no JVD Neck Narrative: There are no clear bruits. Chest Wall inspection of chest normal Resp normal respiratory effort and clear to auscultation bilaterally Effort and Inspection: Negative for pain with movement Cardio regular rate, regular rhythm, S1 normal heart sound, S2 normal heart sound and no murmurs GI normal to inspection, nondistended, normoactive bowel sounds, non-tender and non-distended; Negative for hepatosplenomegaly Back/Spine no CVA tenderness Cervical Spine: Negative for cervical spine tenderness Thoracic Spine / Upper Back: Negative for thoracic spinal tenderness Lumbar Spine / Lower Back: Negative for lumbar spinal tenderness Extremity normal to inspection Extremity Narrative: Rate will and DP pulses 2+ and symmetric. General Extremety ED: Negative for edema or tenderness General Extremity: Negative for edema Neuro oriented x3, CN's II-XII intact bilaterally and no sensory deficits noted Neuro Narrative: There is no dysmetria. There is no clonus. There is no Babinski sign. Sensorium / Orientation: alert Motor Exam: strength 5/5 throughout Psych mental status grossly normal Skin no rashes or lesions noted, no wounds and skin turgor normal General Skin Exam: Negative for jaundice or pallor MDM MDM MDM Narrative Medical decision making narrative: Patient with asymptomatic hypertension. Will observe since she took an additional dose of enalapril prior to coming. Will obtain blood work to assess for endorgan dysfunction. Because of her complaint of chest discomfort EKG was obtained as well as troponin. Review of prior admission reveals patient did have elevated blood pressure readings and was on enalapril. Lab Data Attestation: I reviewed the patient's lab results. Lab results narrative: CBC is unremarkable. Labs: Laboratory Results - last 24 hr 07/27/22 07/27/22 07/27/22 19:05 19:05 19:25 WBC 9.1 RBC 4.67 Hgb 14.6 Hct 41.6 MCV 89.1 MCH 31.3 MCHC 35.1 RDW Std Deviation 39.8 RDW Coeff of [place] 12.3 Plt Count 287 MPV 8.8 Immature Gran % (Auto) 0.100 Neut % (Auto) 53.4 Lymph % (Auto) 38.9 [place] % (Auto) 4.7 Eos % (Auto) 2.6 Baso % (Auto) 0.3 Absolute Neuts (auto) 4.8 Absolute Lymphs (auto) 3.53 Nucleated RBC % 0 Sodium 143 Potassium 4.2 Chloride 107 Carbon Dioxide 29.0 Anion Gap 7 BUN 16 Creatinine 0.86 Estim Creat Clear Calc 42.65 Est GFR (MDRD) Af Amer 82 Est GFR (MDRD) Non-Af 68 BUN/Creatinine Ratio 18.5 Glucose 108 H Calcium 10.4 H Troponin I High Sens 4 Urine Color Yellow Urine Clarity Clear Urine pH 7.0 Ur Specific [place] 1.010 Urine Protein 15 H Urine Glucose (UA) Normal Urine Ketones Negative Urine Occult Blood 10 H Urine Nitrite Negative Urine Bilirubin Negative Urine Urobilinogen Normal Ur Leukocyte Esterase 500 H Urine RBC 0 SEEN Urine WBC 5-10 SEEN Ur Squamous Epith Cells 0-5 SEEN Urine Bacteria RARE Urine Mucus 0 SEEN EKG Initial EKG: Attestation: I personally reviewed and interpreted this EKG as follows: Interpretation: Sinus Rhythm (Rate is 68. The MS interval is 196 ms. QS duration 86 ms. QT duration 3 to 98 ms. [place] is normal. There is a flipped T wave in lead III which is nonspecific. There is also flipped T waves in the anterior leads. We will need old EKG for comparison) Prior: Unchanged Treatment and Re-Evaluation Narrative: Patient was informed of results her blood pressure was 144/91. Since there is no evidence of endorgan dysfunction and blood pressure is improved markedly we will discharged to home in stable and improved condition Discharge Plan Triage Chief Complaint: Hypertension ED Provider: Frank Guzmán Dx/Rx/DC Orders Clinical Impression: Accelerated essential hypertension, Atherosclerosis of coronary artery of [place] heart without angina pectoris, Essential (primary) hypertension, Pure hypercholesterolemia, Asymptomatic microscopic hematuria, Asymptomatic proteinuria Instructions: ED Hypertension, Established Prescriptions: No Action loratadine [Allergy Relief (loratadine)] 10 mg tablet 10 mg PO QDAY omeprazole 20 mg capsule,delayed release(DR/EC) 20 mg PO QDAY PRN (Reason: Heartburn) cholecalciferol (vitamin D3) 5,000 unit capsule 5,000 unit PO QDAY calcium carbonate [Calcium 500] 500 mg calcium (1,250 mg) tablet 1,000 mg PO QDAY magnesium 250 mg tablet 250 mg PO QDAY vitamins-lipotropics tablet tablet 1 tab PO QDAY aspirin [Adult Aspirin Regimen] 81 mg tablet,delayed release (DR/EC) 81 mg PO QDAY zinc gluconate 50 mg tablet 50 mg PO DAILY turmeric 400 mg capsule 800 mg PO .weekly niacin 100 mg tablet 100 mg PO .weekly enalapril maleate 5 mg tablet 5 mg PO QDAY Qty: 30 6RF (DME) blood pressure monitor [Blood Pressure Kit] Kit See Rx Instructions .Route Qty: 1 0RF Rx Instructions: As directed lorazepam 0.5 MG tablet 0.5 mg PO DAILY PRN PRN (Reason: Anxiety) propranolol 60 mg capsule,extended release 24 hr 60 mg PO QDAY Qty: 90 3RF rosuvastatin [Crestor] 5 mg tablet 5 mg PO .3xweek Qty: 36 3RF Primary Care Provider: Emily Jenkins Referrals: Emily Jenkins DO [Primary Care Provider] - 1-2 Weeks Activity Restrictions/Additional Instructions: If you develop elevated blood pressure with symptoms: Numbness or tingling in your upper or lower extremities Difficulty using your upper or lower extremities Trouble with speech or swallowing Problems with coordination or balance If you have no symptoms take an additional dose of your enalapril. If there is no improvement after 2 to 3 hours then come to the emergency department Disposition Disposition: Home, Self Care What to do if you have Problems For any increased pain, shortness of breath, bleeding, nausea or vomiting, chestpain, or any unexpected problems, contact your Primary Care Provider. Call [facility] ([phone]) or report to the closest Emergency Room. Call 911 if necessary. 07/27/222015 <Electronically signed by Frank Guzmán MD> Cosigner Signature (if applicable): CC: Dr. Emily Jenkins DO ~ Signed [facility] Work Phone: [phone] 320-265303-24-2022 Instructions* Patient Instructions* Jayne Benjamin APRN.MILL FEEDER - 09/13/2021 7:48 PM EDT CONTUSIONS GENERAL INFORMATION: A contusion, or bruise, is caused by an injury that does not break the skin. Bleeding under the skin causes it to look black and blue. It may take 2 or 3 weeks for the bruising to disappear. INSTRUCTIONS: 1. You may continue your normal daily activities as tolerated. Rest the injured area as much as possible. 2. Apply ice to the injury for 15 minutes each hour (while awake) for the first two days. Put the ice in a plastic bag and place a thin towel between the bag of ice and your skin. 3. After the first 1 to 2 days, you may apply heat to the injury to help relieve pain. You may use a warm heating pad, whirlpool bath, or warm moist towels for 15-20 minutes every hour (while awake) for 48 hours. 4. You may use medicines for pain such as acetaminophen, ibuprofen or aspirin (unless otherwise instructed by your physician). CONTACT YOUR DOCTOR OR RETURN TO THE ED IF: 1. Your pain becomes worse. 2. You develop a temperature over 101 F (38.3 C). 3. The swelling increases greatly in the area of the bruise. 4. Redness or lines of redness develop in the area of the bruise.R.I.C.E. The general care of your injury includes the following: Resting, Icing, Compressing and Elevating the injured area. Remember this as "RICE." REST: Limit the use of the injured body part. ICE: By applying ice to the affected area, swelling and pain can be reduced. Place some ice cubes in a re-sealable (Ziploc) bag and add some water. Put a thin washcloth between the bag and your skin.Apply the ice bag to the area for at least 20 minutes. Do this at least 4 times per day. Using the ice for longer times and more frequently is OK. NEVER APPLY ICE DIRECTLY TO THE SKIN. COMPRESS: Compression means to apply pressure around the injured area such as with a splint, cast or an nely bandage. Compression decreases swelling and improves comfort. Compression should be tight enough to relieve swelling but not so tight as to decrease circulation. Increasing pain, numbness, tingling, or change in skin color, are all signs of decreased circulation. ELEVATE: Elevate the injured part. For example, elevate your foot by placing it on a chair while sitting, or propping it up on pillows when lying down. [facility] History of Present illness Narrative* Jayne Benjamin APRN.JOSE - 09/13/2021 7:12 PM EDT This note was created using NoteWriter. Subjective Mariposa Pizarro is a 75 year old female. 75 year old female with PMH hyperlipidemia presents with complaints of right rib pain. Acute onset one week ago. States that she was shopping at [employer], she attempted to grab an item out of the freezer. States that while she was stretching over, she felt a pop. States this past Friday she was bending over and felt her right ribs move. Denies SOB. Denies hemoptysis. Denies skin rash or lesions. States slouching and driving seem to exacerbate. Denies factors that alleviate. +tobacco usage. The history is provided by the patient. No high school foreign language teacher was used. Musculoskeletal Problem This is a new problem. The current episode started in the past 7 days. The problem occurs constantly. The problem has been waxing and waning. Pertinent negatives include no abdominal pain, anorexia, arthralgias, change in bowel habit, chest pain, chills, congestion, coughing, diaphoresis, fatigue, fever, headaches, joint swelling, myalgias, nausea, neck pain, numbness, rash, sore throat, swollen glands, urinary symptoms, vertigo, visual change, vomiting or weakness. Exacerbated by: slouching and driving. She has tried nothing for the symptoms. The treatment provided no relief. 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 Nonspecific abnormal finding in stool contents Osteoporosis 2007 Other and unspecified hyperlipidemia Hyperlipidemia PAST SURGICAL HISTORY Procedure Laterality Date COLONOSCOPY FLX DX W/COLLJ SPEC WHEN PFRMD 06/18/12 Colonoscopy repeat 5 years DILATION & CURETTAGE DX&/THER NONOBSTETRIC Dilation & curettage LAMINECTOMY W/O FFD / VERT SEG LUMBAR 2000 Laminectomy, lumbar and fusion LIG/TRNSXJ FLP TUBE ABDL/VAG APPR UNI/BI Tubal ligation OTHER 2009 spot removed from L leg (not malignant per pt.) PAST SURGICAL HISTORY OF 1974 cold knife cone of the cervix PAST SURGICAL HISTORY OF EYE surg for nevus X2 TONSILLECTOMY PRIMARY/SECONDARY <AGE 13 Tonsillectomy ALLERGIES Actonel [Risedronate Sodium], Darvon [Propoxyphene Hcl], and Prednisone MEDICATIONS aspirin, enteric coated (ECOTRIN LOW STRENGTH) 81 mg EC tablet Take 81 mg by mouth once daily. atorvastatin (LIPITOR) 20 mg tablet Take 20 mg by mouth once daily. clopidogrel (PLAVIX) 75 mg tablet Take 75 mg by mouth once daily. propranolol ER (INDERAL LA) 60 mg 24 hr capsule Take 60 mg by mouth once daily. FLUTICASONE PROPIONATE (FLONASE NASAL) Use in the nose. UBIDECARENONE (CO Q-10 ORAL) Take by mouth. simvastatin (ZOCOR) 20 mg tablet Take 20 mg by mouth daily at bedtime. loratadine 10 mg cap Take 1 tablet by mouth once daily. enalapril 2.5 mg tablet Take 2.5 mg by mouth once daily. calcium carbonate 500 mg calcium (1,250 mg) tablet Take 1 tablet by mouth once daily. Cholecalciferol, Vitamin D3, (VITAMIN D) 1,000 unit cap Take 1,000 Units by mouth once daily. PYRIDOXINE HCL (VITAMIN B-6 ORAL) Take 1 tablet by mouth once daily. LORazepam (ATIVAN) 0.5 mg Tab Take by mouth daily at bedtime. as needed. benzonatate (TESSALON PERLES) 100 mg capsule Take 1 capsule by mouth three times daily as needed for Cough. niacin (NIACIN) 100 mg tablet Take 100 mg by mouth daily with breakfast. buwqunlq-fthxzcfqk-afjcqtnqctucpl (CORTISPORIN) 3.5-10,000-1 mg/mL-unit/mL-% otic suspension Use 4 Drops in the right ear three times daily. For 7 days. Cod Liver Oil Oil Take 1 tablet by mouth. take twice weekly MAGNESIUM OXIDE/MAG AA CHELATE (MAGNESIUM ORAL) Take 2 tablets by mouth once daily. FAMILY HISTORY Problem Relation Age of Onset Heart Mother Lipids Mother Diabetes Daughter Hypertension Father Hypertension Brother Cancer Father Testicular Breast Cancer Mother 94 Cured and is 98 at 2012 Social History Tobacco Use Smoking status: Former Smoker Years: 5.00 Quit date: 07/02/2007 Years since quittin.2 Smokeless tobacco: Never Used Tobacco comment: 10 cigarettes daily Substance Use Topics Alcohol use: Yes Comment: rarely one can monthly Drug use: No Review of Systems Constitutional: Negative for chills, diaphoresis, fatigue and fever. HENT: Negative for congestion and sore throat. Eyes: Negative for pain, discharge, redness and itching. Respiratory: Negative for apnea, cough, choking, chest tightness and shortness of breath. Right rib cage pain Cardiovascular: Negative for chest pain, palpitations and leg swelling. Gastrointestinal: Negative for abdominal pain, anorexia, change in bowel habit, nausea and vomiting. Musculoskeletal: Negative for arthralgias, joint swelling, myalgias and neck pain. Skin: Negative for color change, pallor, rash and wound. Allergic/Immunologic: Negative for environmental allergies, food allergies and immunocompromised state. Neurological: Negative for vertigo, weakness, numbness and headaches. Hematological: Negative for adenopathy. Does not bruise/bleed easily. Psychiatric/Behavioral: Negative for agitation and behavioral problems. Objective BP 122/78 Pulse 60 Temp 36.7 C (98.1 F) (Tympanic) Resp 18 Wt 72.8 kg (160 lb 6.4 oz) SpO2 96% Physical Exam Vitals and nursing note reviewed. Constitutional: General: She is not in acute distress. Appearance: Normal appearance. She is normal weight. She is not ill-appearing, toxic-appearing or diaphoretic. HENT: Head: Normocephalic and atraumatic. Right Ear: Ear canal and external ear normal. Left Ear: Ear canal and external ear normal. Nose: Nose normal. No congestion or rhinorrhea. Mouth/Throat: Mouth: Mucous membranes are moist. Pharynx: No oropharyngeal exudate or posterior oropharyngeal erythema. Eyes: General: Right eye: No discharge. Left eye: No discharge. Extraocular Movements: Extraocular movements intact. Conjunctiva/sclera: Conjunctivae normal. Pupils: Pupils are equal, round, and reactive to light. Cardiovascular: Rate and Rhythm: Normal rate and regular rhythm. Pulses: Normal pulses. Heart sounds: Normal heart sounds. No murmur heard. No friction rub. Pulmonary: Effort: Pulmonary effort is normal. No respiratory distress. Breath sounds: Normal breath sounds. No stridor. No wheezing, rhonchi or rales. Chest: Chest wall: No tenderness (right mid axillary and right anterior chest wtih TTP noted over ribs 5, 6, and 7. No flail chest. Good air exchange). Abdominal: General: Abdomen is flat. There is no distension. Palpations: Abdomen is soft. There is no mass. Tenderness: There is no abdominal tenderness. There is no right CVA tenderness, left CVA tenderness, guarding or rebound. Hernia: No hernia is present. Musculoskeletal: General: No swelling, tenderness, deformity or signs of injury. Normal range of motion. Cervical back: Normal range of motion and neck supple. No rigidity. Right lower leg: No edema. Left lower leg: No edema. Lymphadenopathy: Cervical: No cervical adenopathy. Skin: General: Skin is warm and dry. Capillary Refill: Capillary refill takes less than 2 seconds. Coloration: Skin is not jaundiced or pale. Findings: No bruising, erythema, lesion or rash. Neurological: General: No focal deficit present. Mental Status: She is alert and oriented to person, place, and time. Cranial Nerves: No cranial nerve deficit. Sensory: No sensory deficit. Motor: No weakness. Coordination: Coordination normal. Gait: Gait normal. Psychiatric: Mood and Affect: Mood normal. Behavior: Behavior normal. Thought Content: Thought content normal. Judgment: Judgment normal. Assessment and Plan ASSESSMENT/PLAN: 1. Rib pain on right side - ICD9: 786.50, ICD10: R07.81 Atypical chest pain, symptoms are not consistent with cardiac ischemia due to pleuritic nature of pain and localization of the pain possible etiology include Costochondritis/chest wall pain, Pleurisyand rib fracture - Chest X-ray today. My reading: normal, no signs of acute disease. Discussed my reading with patient. Radiologist report to follow. - Oxygen saturation 98% - Follow up 3 days - XR RIBS/CHEST 3V AP RIB/OBLS/CXR RIGHT 2. Contusion of rib on right side, initial encounter - ICD9: 922.1, ICD10: S20.211A OTC analgesics Warm compresses Daily deep breathing Discuss signs and sx worsening condition and need to seek ED CORINNA Oconnor APRN.JOSE [facility]* Diagnosis Onset Date Resolution Status Essential (primary) hypertension chronic History of coronary artery stent placement January 07, 2018 chronic Pure hypercholesterolemia [facility] Work Phone: [phone]) 610-556007-18-2018 Evaluation note* Diagnosis Onset Date Resolution Status Acute sinusitis acute Essential (primary) hypertension chronic History of coronary artery stent placement January 07, 2018 chronic Pure hypercholesterolemia ch ronic [facility] Work Phone: [phone]) [phone] Evaluation note* Diagnosis Onset Date Resolution Status Pelvic pain resolved Endometrial polyp acute History of coronary artery stent placement January 07, 2018 chronic Endometrial polyp acute Atherosclerosis of coronary artery of [place] heart without angina pectoris chronic History of coronary artery stent placement January 07, 2018 chronic BRBPR (bright red blood per rectum) acute Screening for colon cancer a cute Endometrial polyp acute [facility] Work Phone: [phone]) 412-733407-18-2018 Evaluation note* Diagnosis Onset Date Resolution Status Pelvic pain resolved Endometrial polyp acute History of coronary artery stent placement January 07, 2018 chronic Endometrial polyp acute Atherosclerosis of coronary artery of [place] heart without angina pectoris chronic History of coronary artery stent placement January 07, 2018 chronic BRBPR (bright red blood per rectum) acute Screening for colon cancer a cute Endometrial polyp acute Dysuria acute Vaginal itching acute Postoperative examination no neactive [facility] Work Phone: [phone]) 221-868710-10-2012 History of Past illness Narrative* Problem Noted Date Resolved Date Screen for colon cancer 04/01/2012 04/01/20 12 documented as of this encounter (statuses as of 09/13/2021) [facility] of [facility] illness Narrative* Problem Noted Date Diagnosed Date Resolved Date Screen for colon cancer 04/01/201203/23 documented as of this encounter (statuses as of 09/14/2023) [facility] of [facility] illness Narrative* Problem Noted Date Diagnosed Date Resolved Date Screen for colon cancer 04/01/201203/23 documented as of this encounter (statuses as of 09/16/2023) [facility] No data available for this section [facility] Evaluation note* Diagnosis Rib pain on right side- Primary Chest pain, unspecified Contusion of rib on right side, initial encounter [facility] noteNo assessment information availableWC[facility] Work Phone: Evaluation note* Diagnosis Onset Date Resolution Status Acute sinusitis acute [facility] Work Phone: Evaluation note* Diagnosis Onset Date Resolution Status Pelvic pain acute [facility] Work Phone: evaluation note* Diagnosis Recurrent UTI (urinary tract infection)- Primary Urinary tract infection, site not specified Urinary frequency documented in this encounter [facility] note* Diagnosis Rib pain on right side Chest pain, unspecified documented in this encounter [facility] note* Diagnosis Acute cystitis without hematuria- Primary Acute cystitis documented in this encounter [facility] note* Diagnosis Dysuria- Primary documented in this encounter [facility] note* Diagnosis Dysuria- Primary [facility] Additional Instructions Take your blood pressure medications as prescribed. Log your blood pressures twice daily and follow-up with your doctor to see if they need to adjust her medication. Most likely they will not in the a lot of this is related to the stress related to your daughter's illness.[facility] Work Phone: Hospital Discharge instructions Additional Instructions Cardiac work-up negative. Increase your enalapril to 1 full tab 2.5 mg once a day. Follow-up with your doctor. Blood pressure down to 145/67 on recheck without intervention. [facility] Work Phone: Hospital Discharge instructions Additional Instructions If you develop elevated blood pressure with symptoms: Numbness or tingling in your upper or lower extremities Difficulty using your upper or lower extremities Trouble with speech or swallowing Problems with coordination or balance If you have no symptoms take an additional dose of your enalapril. If there is no improvement after 2 to 3 hours then come to the emergency departmentWC[facility] Work Phone: Hospital Discharge instructions Additional Instructions Thank you for trusting us with your care today! Your CT scan did not show evidence of a hernia, incarcerated hernia, bowel obstruction or other life-threatening emergency. Your labs are also reassuring. Your x-ray of the hip and pelvis were negative for bony injury but there was some osteoarthritis which may be contributing to your pain Please take Tylenol (2 pills, 650 mg), ibuprofen (2 pills, 400 mg) every 6 hours as needed for pain and fever control. Please return to the emergency department if your symptoms change or worsen. Please follow with your primary care physician for further outpatient evaluation and management.[facility] Work Phone: Instructions* Name Dates Details Patient Instructions Indication:Non-smoker Start:13-Dec-2020 Instruction Type:Provider Instructions for Treatment How to Access Health Informa tion Online using Patient Portal and [employer] Apps Indication:Non-smoker Start:13-Dec-2020 Instruction Type:Patient Education How to Access Health Informa tion Online using Patient Portal and [employer] Apps Indication:Non-smoker Start:09-Aug-2020 Instruction Type:Patient Education Patient Instructions Indication:Non-smoker Start:09-Aug-2020 Instruction Type:Provider Instructions for Treatment cardiovascular counseling Indication:CAD, multiple vessel Start:12-Jun-2020 Instruction Type:Provider Instructions for Treatment obesity counseling Indication:Abnormal glucose tolerance test Start:12-Jun-2020 Instruction Type:Provider Instructions for Treatment Patient Instructions Indication:Non-smoker Start:12-Jun-2020 Instruction Type:Provider Instructions for Treatment How to Access Health Informa tion Online using Patient Portal and [employer] Apps Indication:Non-smoker Start:12-Jun-2020 Instruction Type:Patient Education How to access health informa tion online Indication:Abnormal glucose tolerance test Start:14-Apr-2020 Instruction Type:Patient Education How to access health informa tion online - Detail Indication:Abnormal glucose tolerance test Start:14-Apr-2020 Instruction Type:Patient Education Patient Instructions Indication:Abnormal glucose tolerance test Start:14-Apr-2020 Instruction Type:Provider Instructions for Treatment How to access health informa tion online Indication:Non-smoker Start:10-Apr-2020 Instruction Type:Patient Education How to access health informa tion online - Detail Indication:Non-smoker Start:10-Apr-2020 Instruction Type:Patient Education Patient Instructions Indication:Non-smoker Start:10-Apr-2020 Instruction Type:Provider Instructions for Treatment How to access health informa tion online Indication:Non-smoker Start:26-Nov-2019 Instruction Type:Patient Education How to access health informa tion online - Detail Indication:Non-smoker Start:26-Nov-2019 Instruction Type:Patient Education Patient Instructions Indication:Non-smoker Start:26-Nov-2019 Instruction Type:Provider Instructions for Treatment How to access health informa tion online Indication:Abnormal glucose tolerance test Start:19-Jul-2019 Instruction Type:Patient Education How to access health informa tion online - Detail Indication:Abnormal glucose tolerance test Start:19-Jul-2019 Instruction Type:Patient Education Patient Instructions Indication:Abnormal glucose tolerance test Start:19-Jul-2019 Instruction Type:Provider Instructions for Treatment How to access health informa tion online Indication:Non-smoker Start:09-Jun-2019 Instruction Type:Patient Education How to access health informa tion online - Detail Indication:Non-smoker Start:09-Jun-2019 Instruction Type:Patient Education Patient Instructions Indication:Non-smoker Start:09-Jun-2019 Instruction Type:Provider Instructions for Treatment How to access health informa tion online Indication:Hypertension, benign Start:22-Mar-2019 Instruction Type:Patient Education How to access health informa tion online - Detail Indication:Hypertension, benign Start:22-Mar-2019 Instruction Type:Patient Education Patient Instructions Indication:Hypertension, benign Start:22-Mar-2019 Instruction Type:Provider Instructions for Treatment How to access health informa tion online Indication:Abnormal glucose tolerance test Start:20-Nov-2018 Instruction Type:Patient Education How to access health informa tion online - Detail Indication:Abnormal glucose tolerance test Start:20-Nov-2018 Instruction Type:Patient Education Patient Instructions Indication:Abnormal glucose tolerance test Start:20-Nov-2018 Instruction Type:Provider Instructions for Treatment How to access health informa tion online Indication:BMI 29.0-29.9,adult Start:29-Jun-2018 Instruction Type:Patient Education How to access health informa tion online - Detail Indication:BMI 29.0-29.9,adult Start:29-Jun-2018 Instruction Type:Patient Education How to access health informa tion online - Detail Indication:BMI 29.0-29.9,adult Start:29-Jun-2018 Instruction Type:Patient Education Patient Instructions Indication:BMI 29.0-29.9,adult Start:29-Jun-2018 Instruction Type:Provider Instructions for Treatment cardiovascular counseling Indication:CAD, multiple vessel Start:05-Jun-2018 Instruction Type:Provider Instructions for Treatment How to access health informa tion online Indication:Non-smoker Start:05-Jun-2018 Instruction Type:Patient Education How to access health informa tion online - Detail Indication:Non-smoker Start:05-Jun-2018 Instruction Type:Patient Education Patient Instructions Indication:Non-smoker Start:05-Jun-2018 Instruction Type:Provider Instructions for Treatment How to access health informa tion online Indication:Abnormal glucose tolerance test Start:13-Feb-2018 Instruction Type:Patient Education How to access health informa tion online - Detail Indication:Abnormal glucose tolerance test Start:13-Feb-2018 Instruction Type:Patient Education Patient Instructions Indication:Abnormal glucose tolerance test Start:13-Feb-2018 Instruction Type:Provider Instructions for Treatment How to access health informa tion online Indication:Abnormal glucose tolerance test Start:13-Oct-2017 Instruction Type:Patient Education How to access health informa tion online - Detail Indication:Abnormal glucose tolerance test Start:13-Oct-2017 Instruction Type:Patient Education Patient Instructions Indication:Abnormal glucose tolerance test Start:13-Oct-2017 Instruction Type:Provider Instructions for Treatment How to access health informa tion online Indication:BMI 29.0-29.9,adult Start:21-Aug-2017 Instruction Type:Patient Education How to access health informa tion online - Detail Indication:BMI 29.0-29.9,adult Start:21-Aug-2017 Instruction Type:Patient Education Patient Instructions Indication:BMI 29.0-29.9,adult Start:21-Aug-2017 Instruction Type:Provider Instructions for Treatment How to access health informa tion online Indication:Abnormal glucose tolerance test Start:11-Jun-2017 Instruction Type:Patient Education How to access health informa tion online - Detail Indication:Abnormal glucose tolerance test Start:11-Jun-2017 Instruction Type:Patient Education Patient Instructions Indication:Abnormal glucose tolerance test Start:11-Jun-2017 Instruction Type:Provider Instructions for Treatment How to access health informa tion online Indication:BMI 29.0-29.9,adult Start:30-May-2017 Instruction Type:Patient Education How to access health informa tion online - Detail Indication:BMI 29.0-29.9,adult Start:30-May-2017 Instruction Type:Patient Education Patient Instructions Indication:BMI 29.0-29.9,adult Start:30-May-2017 Instruction Type:Provider Instructions for Treatment Patient Instructions Indication:BMI 29.0-29.9,adult Start:30-May-2017 Instruction Type:Provider Instructions for Treatment How to access health informa tion online Indication:BMI 27.0-27.9,adult Start:05-Feb-2017 Instruction Type:Patient Education How to access health informa tion online - Detail Indication:BMI 27.0-27.9,adult Start:05-Feb-2017 Instruction Type:Patient Education Patient Instructions Indication:BMI 27.0-27.9,adult Start:05-Feb-2017 Instruction Type:Provider Instructions for Treatment How to access health informa tion online Indication:Non-smoker Start:23-Oct-2016 Instruction Type:Patient Education How to access health informa tion online - Detail Indication:Non-smoker Start:23-Oct-2016 Instruction Type:Patient Education Patient Instructions Indication:Non-smoker Start:23-Oct-2016 Instruction Type:Provider Instructions for Treatment How to access health informa tion online Indication:Abnormal glucose tolerance test Start:02-Oct-2016 Instruction Type:Patient Education How to access health informa tion online - Detail Indication:Abnormal glucose tolerance test Start:02-Oct-2016 Instruction Type:Patient Education Patient Instructions Indication:Abnormal glucose tolerance test Start:02-Oct-2016 Instruction Type:Provider Instructions for Treatment How to access health informa tion online Indication:Non-smoker Start:29-May-2016 Instruction Type:Patient Education How to access health informa tion online - Detail Indication:Non-smoker Start:29-May-2016 Instruction Type:Patient Education Patient Instructions Indication:Non-smoker Start:29-May-2016 Instruction Type:Provider Instructions for Treatment Patient Instructions Indication:Abnormal glucose tolerance test Start:21-Feb-2016 Instruction Type:Provider Instructions for Treatment How to access health informa tion online Indication:Abnormal glucose tolerance test Start:21-Feb-2016 Instruction Type:Patient Education How to access health informa tion online - Detail Indication:Abnormal glucose tolerance test Start:21-Feb-2016 Instruction Type:Patient Education How to access health informa tion online Indication:Abnormal glucose tolerance test Start:20-Apr-2015 Instruction Type:Patient Education How to access health informa tion online - Detail Indication:Abnormal glucose tolerance test Start:20-Apr-2015 Instruction Type:Patient Education Patient Instructions Indication:Abnormal glucose tolerance test Start:20-Apr-2015 Instruction Type:Provider Instructions for Treatment How to access health informa tion online Indication:Anxiety Start:19-Dec-2014 Instruction Type:Patient Education How to access health informa tion online - Detail Indication:Anxiety Start:19-Dec-2014 Instruction Type:Patient Education Patient Instructions Indication:Anxiety Start:19-Dec-2014 Instruction Type:Provider Instructions for Treatment Patient Instructions Indication:Encounter for Medicare annual wellness exam Start:18-May-2014 Instruction Type:Provider Instructions for Treatment obesity counseling Indication:Hypertension, benign Start:18-May-2014 Instruction Type:Provider Instructions for Treatment Patient Instructions Indication:Hypertension, benign Start:01-Nov-2013 Instruction Type:Provider Instructions for Treatment Patient Instructions: stop a ltace adn start norvasc for bp Indication:Hypertension, benign Start:19-Apr-2013 Instruction Type:Provider Instructions for Treatment Patient Instructions Indication:Pain in joint involving lower leg Start:07-Dec-2012 Instruction Type:Provider Instructions for Treatment Patient Instructions Indication:Encounter for Medicare annual wellness exam Start:29-Apr-2012 Instruction Type:Provider Instructions for Treatment Patient Instructions Indication:Anxiety Start:16-Apr-2012 Instruction Type:Provider Instructions for Treatment [facility] Work Phone: Instructions* Name Dates Details Patient Instructions Indication:Abnormal glucose tolerance test Start:25-Apr-2021 Instruction Type:Provider Instructions for Treatment How to Access Health Informa tion Online using Patient Portal and [employer] Indication:Abnormal glucose tolerance test Start:25-Apr-2021 Instruction Type:Patient Education Patient Instructions Indication:Non-smoker Start:13-Dec-2020 Instruction Type:Provider Instructions for Treatment How to Access Health Informa tion Online using Patient Portal and [employer] Apps Indication:Non-smoker Start:13-Dec-2020 Instruction Type:Patient Education How to Access Health Informa tion Online using Patient Portal and [employer] Apps Indication:Non-smoker Start:09-Aug-2020 Instruction Type:Patient Education Patient Instructions Indication:Non-smoker Start:09-Aug-2020 Instruction Type:Provider Instructions for Treatment cardiovascular counseling Indication:CAD, multiple vessel Start:12-Jun-2020 Instruction Type:Provider Instructions for Treatment obesity counseling Indication:Abnormal glucose tolerance test Start:12-Jun-2020 Instruction Type:Provider Instructions for Treatment Patient Instructions Indication:Non-smoker Start:12-Jun-2020 Instruction Type:Provider Instructions for Treatment How to Access Health Informa tion Online using Patient Portal and [employer] Apps Indication:Non-smoker Start:12-Jun-2020 Instruction Type:Patient Education How to access health informa tion online Indication:Abnormal glucose tolerance test Start:14-Apr-2020 Instruction Type:Patient Education How to access health informa tion online - Detail Indication:Abnormal glucose tolerance test Start:14-Apr-2020 Instruction Type:Patient Education Patient Instructions Indication:Abnormal glucose tolerance test Start:14-Apr-2020 Instruction Type:Provider Instructions for Treatment How to access health informa tion online Indication:Non-smoker Start:10-Apr-2020 Instruction Type:Patient Education How to access health informa tion online - Detail Indication:Non-smoker Start:10-Apr-2020 Instruction Type:Patient Education Patient Instructions Indication:Non-smoker Start:10-Apr-2020 Instruction Type:Provider Instructions for Treatment How to access health informa tion online Indication:Non-smoker Start:26-Nov-2019 Instruction Type:Patient Education How to access health informa tion online - Detail Indication:Non-smoker Start:26-Nov-2019 Instruction Type:Patient Education Patient Instructions Indication:Non-smoker Start:26-Nov-2019 Instruction Type:Provider Instructions for Treatment How to access health informa tion online Indication:Abnormal glucose tolerance test Start:19-Jul-2019 Instruction Type:Patient Education How to access health informa tion online - Detail Indication:Abnormal glucose tolerance test Start:19-Jul-2019 Instruction Type:Patient Education Patient Instructions Indication:Abnormal glucose tolerance test Start:19-Jul-2019 Instruction Type:Provider Instructions for Treatment How to access health informa tion online Indication:Non-smoker Start:09-Jun-2019 Instruction Type:Patient Education How to access health informa tion online - Detail Indication:Non-smoker Start:09-Jun-2019 Instruction Type:Patient Education Patient Instructions Indication:Non-smoker Start:09-Jun-2019 Instruction Type:Provider Instructions for Treatment How to access health informa tion online Indication:Hypertension, benign Start:22-Mar-2019 Instruction Type:Patient Education How to access health informa tion online - Detail Indication:Hypertension, benign Start:22-Mar-2019 Instruction Type:Patient Education Patient Instructions Indication:Hypertension, benign Start:22-Mar-2019 Instruction Type:Provider Instructions for Treatment How to access health informa tion online Indication:Abnormal glucose tolerance test Start:20-Nov-2018 Instruction Type:Patient Education How to access health informa tion online - Detail Indication:Abnormal glucose tolerance test Start:20-Nov-2018 Instruction Type:Patient Education Patient Instructions Indication:Abnormal glucose tolerance test Start:20-Nov-2018 Instruction Type:Provider Instructions for Treatment How to access health informa tion online Indication:BMI 29.0-29.9,adult Start:29-Jun-2018 Instruction Type:Patient Education How to access health informa tion online - Detail Indication:BMI 29.0-29.9,adult Start:29-Jun-2018 Instruction Type:Patient Education How to access health informa tion online - Detail Indication:BMI 29.0-29.9,adult Start:29-Jun-2018 Instruction Type:Patient Education Patient Instructions Indication:BMI 29.0-29.9,adult Start:29-Jun-2018 Instruction Type:Provider Instructions for Treatment cardiovascular counseling Indication:CAD, multiple vessel Start:05-Jun-2018 Instruction Type:Provider Instructions for Treatment How to access health informa tion online Indication:Non-smoker Start:05-Jun-2018 Instruction Type:Patient Education How to access health informa tion online - Detail Indication:Non-smoker Start:05-Jun-2018 Instruction Type:Patient Education Patient Instructions Indication:Non-smoker Start:05-Jun-2018 Instruction Type:Provider Instructions for Treatment How to access health informa tion online Indication:Abnormal glucose tolerance test Start:13-Feb-2018 Instruction Type:Patient Education How to access health informa tion online - Detail Indication:Abnormal glucose tolerance test Start:13-Feb-2018 Instruction Type:Patient Education Patient Instructions Indication:Abnormal glucose tolerance test Start:13-Feb-2018 Instruction Type:Provider Instructions for Treatment How to access health informa tion online Indication:Abnormal glucose tolerance test Start:13-Oct-2017 Instruction Type:Patient Education How to access health informa tion online - Detail Indication:Abnormal glucose tolerance test Start:13-Oct-2017 Instruction Type:Patient Education Patient Instructions Indication:Abnormal glucose tolerance test Start:13-Oct-2017 Instruction Type:Provider Instructions for Treatment How to access health informa tion online Indication:BMI 29.0-29.9,adult Start:21-Aug-2017 Instruction Type:Patient Education How to access health informa tion online - Detail Indication:BMI 29.0-29.9,adult Start:21-Aug-2017 Instruction Type:Patient Education Patient Instructions Indication:BMI 29.0-29.9,adult Start:21-Aug-2017 Instruction Type:Provider Instructions for Treatment How to access health informa tion online Indication:Abnormal glucose tolerance test Start:11-Jun-2017 Instruction Type:Patient Education How to access health informa tion online - Detail Indication:Abnormal glucose tolerance test Start:11-Jun-2017 Instruction Type:Patient Education Patient Instructions Indication:Abnormal glucose tolerance test Start:11-Jun-2017 Instruction Type:Provider Instructions for Treatment How to access health informa tion online Indication:BMI 29.0-29.9,adult Start:30-May-2017 Instruction Type:Patient Education How to access health informa tion online - Detail Indication:BMI 29.0-29.9,adult Start:30-May-2017 Instruction Type:Patient Education Patient Instructions Indication:BMI 29.0-29.9,adult Start:30-May-2017 Instruction Type:Provider Instructions for Treatment Patient Instructions Indication:BMI 29.0-29.9,adult Start:30-May-2017 Instruction Type:Provider Instructions for Treatment How to access health informa tion online Indication:BMI 27.0-27.9,adult Start:05-Feb-2017 Instruction Type:Patient Education How to access health informa tion online - Detail Indication:BMI 27.0-27.9,adult Start:05-Feb-2017 Instruction Type:Patient Education Patient Instructions Indication:BMI 27.0-27.9,adult Start:05-Feb-2017 Instruction Type:Provider Instructions for Treatment How to access health informa tion online Indication:Non-smoker Start:23-Oct-2016 Instruction Type:Patient Education How to access health informa tion online - Detail Indication:Non-smoker Start:23-Oct-2016 Instruction Type:Patient Education Patient Instructions Indication:Non-smoker Start:23-Oct-2016 Instruction Type:Provider Instructions for Treatment How to access health informa tion online Indication:Abnormal glucose tolerance test Start:02-Oct-2016 Instruction Type:Patient Education How to access health informa tion online - Detail Indication:Abnormal glucose tolerance test Start:02-Oct-2016 Instruction Type:Patient Education Patient Instructions Indication:Abnormal glucose tolerance test Start:02-Oct-2016 Instruction Type:Provider Instructions for Treatment How to access health informa tion online Indication:Non-smoker Start:29-May-2016 Instruction Type:Patient Education How to access health informa tion online - Detail Indication:Non-smoker Start:29-May-2016 Instruction Type:Patient Education Patient Instructions Indication:Non-smoker Start:29-May-2016 Instruction Type:Provider Instructions for Treatment Patient Instructions Indication:Abnormal glucose tolerance test Start:21-Feb-2016 Instruction Type:Provider Instructions for Treatment How to access health informa tion online Indication:Abnormal glucose tolerance test Start:21-Feb-2016 Instruction Type:Patient Education How to access health informa tion online - Detail Indication:Abnormal glucose tolerance test Start:21-Feb-2016 Instruction Type:Patient Education How to access health informa tion online Indication:Abnormal glucose tolerance test Start:20-Apr-2015 Instruction Type:Patient Education How to access health informa tion online - Detail Indication:Abnormal glucose tolerance test Start:20-Apr-2015 Instruction Type:Patient Education Patient Instructions Indication:Abnormal glucose tolerance test Start:20-Apr-2015 Instruction Type:Provider Instructions for Treatment How to access health informa tion online Indication:Anxiety Start:19-Dec-2014 Instruction Type:Patient Education How to access health informa tion online - Detail Indication:Anxiety Start:19-Dec-2014 Instruction Type:Patient Education Patient Instructions Indication:Anxiety Start:19-Dec-2014 Instruction Type:Provider Instructions for Treatment Patient Instructions Indication:Encounter for Medicare annual wellness exam Start:18-May-2014 Instruction Type:Provider Instructions for Treatment obesity counseling Indication:Hypertension, benign Start:18-May-2014 Instruction Type:Provider Instructions for Treatment Patient Instructions Indication:Hypertension, benign Start:01-Nov-2013 Instruction Type:Provider Instructions for Treatment Patient Instructions: stop a ltace adn start norvas for bp Indication:Hypertension, benign Start:19-Apr-2013 Instruction Type:Provider Instructions for Treatment Patient Instructions Indication:Pain in joint involving lower leg Start:07-Dec-2012 Instruction Type:Provider Instructions for Treatment Patient Instructions Indication:Encounter for Medicare annual wellness exam Start:29-Apr-2012 Instruction Type:Provider Instructions for Treatment Patient Instructions Indication:Anxiety Start:16-Apr-2012 Instruction Type:Provider Instructions for Treatment [facility]; [facility] Work Phone: Instructions* Name Dates Details Patient Instructions Indication:BMI 29.0-29.9,adult Start:24-Aug-2021 Instruction Type:Provider Instructions for Treatment How to Access Health Informa tion Online using Patient Portal and [employer] Apps Indication:BMI 29.0-29.9,adult Start:24-Aug-2021 Instruction Type:Patient Education Patient Instructions Indication:Abnormal glucose tolerance test Start:25-Apr-2021 Instruction Type:Provider Instructions for Treatment How to Access Health Informa tion Online using Patient Portal and [employer] Apps Indication:Abnormal glucose tolerance test Start:25-Apr-2021 Instruction Type:Patient Education Patient Instructions Indication:Non-smoker Start:13-Dec-2020 Instruction Type:Provider Instructions for Treatment How to Access Health Informa tion Online using Patient Portal and [employer] Apps Indication:Non-smoker Start:13-Dec-2020 Instruction Type:Patient Education How to Access Health Informa tion Online using Patient Portal and [employer] Apps Indication:Non-smoker Start:09-Aug-2020 Instruction Type:Patient Education Patient Instructions Indication:Non-smoker Start:09-Aug-2020 Instruction Type:Provider Instructions for Treatment cardiovascular counseling Indication:CAD, multiple vessel Start:12-Jun-2020 Instruction Type:Provider Instructions for Treatment obesity counseling Indication:Abnormal glucose tolerance test Start:12-Jun-2020 Instruction Type:Provider Instructions for Treatment Patient Instructions Indication:Non-smoker Start:12-Jun-2020 Instruction Type:Provider Instructions for Treatment How to Access Health Informa tion Online using Patient Portal and [employer] Apps Indication:Non-smoker Start:12-Jun-2020 Instruction Type:Patient Education How to access health informa tion online Indication:Abnormal glucose tolerance test Start:14-Apr-2020 Instruction Type:Patient Education How to access health informa tion online - Detail Indication:Abnormal glucose tolerance test Start:14-Apr-2020 Instruction Type:Patient Education Patient Instructions Indication:Abnormal glucose tolerance test Start:14-Apr-2020 Instruction Type:Provider Instructions for Treatment How to access health informa tion online Indication:Non-smoker Start:10-Apr-2020 Instruction Type:Patient Education How to access health informa tion online - Detail Indication:Non-smoker Start:10-Apr-2020 Instruction Type:Patient Education Patient Instructions Indication:Non-smoker Start:10-Apr-2020 Instruction Type:Provider Instructions for Treatment How to access health informa tion online Indication:Non-smoker Start:26-Nov-2019 Instruction Type:Patient Education How to access health informa tion online - Detail Indication:Non-smoker Start:26-Nov-2019 Instruction Type:Patient Education Patient Instructions Indication:Non-smoker Start:26-Nov-2019 Instruction Type:Provider Instructions for Treatment How to access health informa tion online Indication:Abnormal glucose tolerance test Start:19-Jul-2019 Instruction Type:Patient Education How to access health informa tion online - Detail Indication:Abnormal glucose tolerance test Start:19-Jul-2019 Instruction Type:Patient Education Patient Instructions Indication:Abnormal glucose tolerance test Start:19-Jul-2019 Instruction Type:Provider Instructions for Treatment How to access health informa tion online Indication:Non-smoker Start:09-Jun-2019 Instruction Type:Patient Education How to access health informa tion online - Detail Indication:Non-smoker Start:09-Jun-2019 Instruction Type:Patient Education Patient Instructions Indication:Non-smoker Start:09-Jun-2019 Instruction Type:Provider Instructions for Treatment How to access health informa tion online Indication:Hypertension, benign Start:22-Mar-2019 Instruction Type:Patient Education How to access health informa tion online - Detail Indication:Hypertension, benign Start:22-Mar-2019 Instruction Type:Patient Education Patient Instructions Indication:Hypertension, benign Start:22-Mar-2019 Instruction Type:Provider Instructions for Treatment How to access health informa tion online Indication:Abnormal glucose tolerance test Start:20-Nov-2018 Instruction Type:Patient Education How to access health informa tion online - Detail Indication:Abnormal glucose tolerance test Start:20-Nov-2018 Instruction Type:Patient Education Patient Instructions Indication:Abnormal glucose tolerance test Start:20-Nov-2018 Instruction Type:Provider Instructions for Treatment How to access health informa tion online Indication:BMI 29.0-29.9,adult Start:29-Jun-2018 Instruction Type:Patient Education How to access health informa tion online - Detail Indication:BMI 29.0-29.9,adult Start:29-Jun-2018 Instruction Type:Patient Education How to access health informa tion online - Detail Indication:BMI 29.0-29.9,adult Start:29-Jun-2018 Instruction Type:Patient Education Patient Instructions Indication:BMI 29.0-29.9,adult Start:29-Jun-2018 Instruction Type:Provider Instructions for Treatment cardiovascular counseling Indication:CAD, multiple vessel Start:05-Jun-2018 Instruction Type:Provider Instructions for Treatment How to access health informa tion online Indication:Non-smoker Start:05-Jun-2018 Instruction Type:Patient Education How to access health informa tion online - Detail Indication:Non-smoker Start:05-Jun-2018 Instruction Type:Patient Education Patient Instructions Indication:Non-smoker Start:05-Jun-2018 Instruction Type:Provider Instructions for Treatment How to access health informa tion online Indication:Abnormal glucose tolerance test Start:13-Feb-2018 Instruction Type:Patient Education How to access health informa tion online - Detail Indication:Abnormal glucose tolerance test Start:13-Feb-2018 Instruction Type:Patient Education Patient Instructions Indication:Abnormal glucose tolerance test Start:13-Feb-2018 Instruction Type:Provider Instructions for Treatment How to access health informa tion online Indication:Abnormal glucose tolerance test Start:13-Oct-2017 Instruction Type:Patient Education How to access health informa tion online - Detail Indication:Abnormal glucose tolerance test Start:13-Oct-2017 Instruction Type:Patient Education Patient Instructions Indication:Abnormal glucose tolerance test Start:13-Oct-2017 Instruction Type:Provider Instructions for Treatment How to access health informa tion online Indication:BMI 29.0-29.9,adult Start:21-Aug-2017 Instruction Type:Patient Education How to access health informa tion online - Detail Indication:BMI 29.0-29.9,adult Start:21-Aug-2017 Instruction Type:Patient Education Patient Instructions Indication:BMI 29.0-29.9,adult Start:21-Aug-2017 Instruction Type:Provider Instructions for Treatment How to access health informa tion online Indication:Abnormal glucose tolerance test Start:11-Jun-2017 Instruction Type:Patient Education How to access health informa tion online - Detail Indication:Abnormal glucose tolerance test Start:11-Jun-2017 Instruction Type:Patient Education Patient Instructions Indication:Abnormal glucose tolerance test Start:11-Jun-2017 Instruction Type:Provider Instructions for Treatment How to access health informa tion online Indication:BMI 29.0-29.9,adult Start:30-May-2017 Instruction Type:Patient Education How to access health informa tion online - Detail Indication:BMI 29.0-29.9,adult Start:30-May-2017 Instruction Type:Patient Education Patient Instructions Indication:BMI 29.0-29.9,adult Start:30-May-2017 Instruction Type:Provider Instructions for Treatment Patient Instructions Indication:BMI 29.0-29.9,adult Start:30-May-2017 Instruction Type:Provider Instructions for Treatment How to access health informa tion online Indication:BMI 27.0-27.9,adult Start:05-Feb-2017 Instruction Type:Patient Education How to access health informa tion online - Detail Indication:BMI 27.0-27.9,adult Start:05-Feb-2017 Instruction Type:Patient Education Patient Instructions Indication:BMI 27.0-27.9,adult Start:05-Feb-2017 Instruction Type:Provider Instructions for Treatment How to access health informa tion online Indication:Non-smoker Start:23-Oct-2016 Instruction Type:Patient Education How to access health informa tion online - Detail Indication:Non-smoker Start:23-Oct-2016 Instruction Type:Patient Education Patient Instructions Indication:Non-smoker Start:23-Oct-2016 Instruction Type:Provider Instructions for Treatment How to access health informa tion online Indication:Abnormal glucose tolerance test Start:02-Oct-2016 Instruction Type:Patient Education How to access health informa tion online - Detail Indication:Abnormal glucose tolerance test Start:02-Oct-2016 Instruction Type:Patient Education Patient Instructions Indication:Abnormal glucose tolerance test Start:02-Oct-2016 Instruction Type:Provider Instructions for Treatment How to access health informa tion online Indication:Non-smoker Start:29-May-2016 Instruction Type:Patient Education How to access health informa tion online - Detail Indication:Non-smoker Start:29-May-2016 Instruction Type:Patient Education Patient Instructions Indication:Non-smoker Start:29-May-2016 Instruction Type:Provider Instructions for Treatment Patient Instructions Indication:Abnormal glucose tolerance test Start:21-Feb-2016 Instruction Type:Provider Instructions for Treatment How to access health informa tion online Indication:Abnormal glucose tolerance test Start:21-Feb-2016 Instruction Type:Patient Education How to access health informa tion online - Detail Indication:Abnormal glucose tolerance test Start:21-Feb-2016 Instruction Type:Patient Education How to access health informa tion online Indication:Abnormal glucose tolerance test Start:20-Apr-2015 Instruction Type:Patient Education How to access health informa tion online - Detail Indication:Abnormal glucose tolerance test Start:20-Apr-2015 Instruction Type:Patient Education Patient Instructions Indication:Abnormal glucose tolerance test Start:20-Apr-2015 Instruction Type:Provider Instructions for Treatment How to access health informa tion online Indication:Anxiety Start:19-Dec-2014 Instruction Type:Patient Education How to access health informa tion online - Detail Indication:Anxiety Start:19-Dec-2014 Instruction Type:Patient Education Patient Instructions Indication:Anxiety Start:19-Dec-2014 Instruction Type:Provider Instructions for Treatment Patient Instructions Indication:Encounter for Medicare annual wellness exam Start:18-May-2014 Instruction Type:Provider Instructions for Treatment obesity counseling Indication:Hypertension, benign Start:18-May-2014 Instruction Type:Provider Instructions for Treatment Patient Instructions Indication:Hypertension, benign Start:01-Nov-2013 Instruction Type:Provider Instructions for Treatment Patient Instructions: stop a ltace adn start norvasc for bp Indication:Hypertension, benign Start:19-Apr-2013 Instruction Type:Provider Instructions for Treatment Patient Instructions Indication:Pain in joint involving lower leg Start:07-Dec-2012 Instruction Type:Provider Instructions for Treatment Patient Instructions Indication:Encounter for Medicare annual wellness exam Start:29-Apr-2012 Instruction Type:Provider Instructions for Treatment Patient Instructions Indication:Anxiety Start:16-Apr-2012 Instruction Type:Provider Instructions for Treatment [facility]; [facility] Work Phone: Instructions* Name Dates Details Patient Instructions Indication:Abnormal glucose tolerance test Start:04-Feb-2022 Instruction Type:Provider Instructions for Treatment How to Access Health Informa tion Online using Patient Portal and [employer] Indication:Abnormal glucose tolerance test Start:04-Feb-2022 Instruction Type:Patient Education Patient Instructions Indication:BMI 29.0-29.9,adult Start:10-Sep-2021 Instruction Type:Provider Instructions for Treatment How to Access Health Informa tion Online using Patient Portal and [employer] Indication:BMI 29.0-29.9,adult Start:10-Sep-2021 Instruction Type:Patient Education Patient Instructions Indication:Abnormal glucose tolerance test Start:25-Apr-2021 Instruction Type:Provider Instructions for Treatment How to Access Health Informa tion Online using Patient Portal and [employer] Indication:Abnormal glucose tolerance test Start:25-Apr-2021 Instruction Type:Patient Education Patient Instructions Indication:Non-smoker Start:13-Dec-2020 Instruction Type:Provider Instructions for Treatment How to Access Health Informa tion Online using Patient Portal and [employer] Indication:Non-smoker Start:13-Dec-2020 Instruction Type:Patient Education How to Access Health Informa tion Online using Patient Portal and [employer] Indication:Non-smoker Start:09-Aug-2020 Instruction Type:Patient Education Patient Instructions Indication:Non-smoker Start:09-Aug-2020 Instruction Type:Provider Instructions for Treatment cardiovascular counseling Indication:CAD, multiple vessel Start:12-Jun-2020 Instruction Type:Provider Instructions for Treatment obesity counseling Indication:Abnormal glucose tolerance test Start:12-Jun-2020 Instruction Type:Provider Instructions for Treatment Patient Instructions Indication:Non-smoker Start:12-Jun-2020 Instruction Type:Provider Instructions for Treatment How to Access Health Informa tion Online using Patient Portal and [employer] Apps Indication:Non-smoker Start:12-Jun-2020 Instruction Type:Patient Education How to access health informa tion online Indication:Abnormal glucose tolerance test Start:14-Apr-2020 Instruction Type:Patient Education How to access health informa tion online - Detail Indication:Abnormal glucose tolerance test Start:14-Apr-2020 Instruction Type:Patient Education Patient Instructions Indication:Abnormal glucose tolerance test Start:14-Apr-2020 Instruction Type:Provider Instructions for Treatment How to access health informa tion online Indication:Non-smoker Start:10-Apr-2020 Instruction Type:Patient Education How to access health informa tion online - Detail Indication:Non-smoker Start:10-Apr-2020 Instruction Type:Patient Education Patient Instructions Indication:Non-smoker Start:10-Apr-2020 Instruction Type:Provider Instructions for Treatment How to access health informa tion online Indication:Non-smoker Start:26-Nov-2019 Instruction Type:Patient Education How to access health informa tion online - Detail Indication:Non-smoker Start:26-Nov-2019 Instruction Type:Patient Education Patient Instructions Indication:Non-smoker Start:26-Nov-2019 Instruction Type:Provider Instructions for Treatment How to access health informa tion online Indication:Abnormal glucose tolerance test Start:19-Jul-2019 Instruction Type:Patient Education How to access health informa tion online - Detail Indication:Abnormal glucose tolerance test Start:19-Jul-2019 Instruction Type:Patient Education Patient Instructions Indication:Abnormal glucose tolerance test Start:19-Jul-2019 Instruction Type:Provider Instructions for Treatment How to access health informa tion online Indication:Non-smoker Start:09-Jun-2019 Instruction Type:Patient Education How to access health informa tion online - Detail Indication:Non-smoker Start:09-Jun-2019 Instruction Type:Patient Education Patient Instructions Indication:Non-smoker Start:09-Jun-2019 Instruction Type:Provider Instructions for Treatment How to access health informa tion online Indication:Hypertension, benign Start:22-Mar-2019 Instruction Type:Patient Education How to access health informa tion online - Detail Indication:Hypertension, benign Start:22-Mar-2019 Instruction Type:Patient Education Patient Instructions Indication:Hypertension, benign Start:22-Mar-2019 Instruction Type:Provider Instructions for Treatment How to access health informa tion online Indication:Abnormal glucose tolerance test Start:20-Nov-2018 Instruction Type:Patient Education How to access health informa tion online - Detail Indication:Abnormal glucose tolerance test Start:20-Nov-2018 Instruction Type:Patient Education Patient Instructions Indication:Abnormal glucose tolerance test Start:20-Nov-2018 Instruction Type:Provider Instructions for Treatment How to access health informa tion online Indication:BMI 29.0-29.9,adult Start:29-Jun-2018 Instruction Type:Patient Education How to access health informa tion online - Detail Indication:BMI 29.0-29.9,adult Start:29-Jun-2018 Instruction Type:Patient Education How to access health informa tion online - Detail Indication:BMI 29.0-29.9,adult Start:29-Jun-2018 Instruction Type:Patient Education Patient Instructions Indication:BMI 29.0-29.9,adult Start:29-Jun-2018 Instruction Type:Provider Instructions for Treatment cardiovascular counseling Indication:CAD, multiple vessel Start:05-Jun-2018 Instruction Type:Provider Instructions for Treatment How to access health informa tion online Indication:Non-smoker Start:05-Jun-2018 Instruction Type:Patient Education How to access health informa tion online - Detail Indication:Non-smoker Start:05-Jun-2018 Instruction Type:Patient Education Patient Instructions Indication:Non-smoker Start:05-Jun-2018 Instruction Type:Provider Instructions for Treatment How to access health informa tion online Indication:Abnormal glucose tolerance test Start:13-Feb-2018 Instruction Type:Patient Education How to access health informa tion online - Detail Indication:Abnormal glucose tolerance test Start:13-Feb-2018 Instruction Type:Patient Education Patient Instructions Indication:Abnormal glucose tolerance test Start:13-Feb-2018 Instruction Type:Provider Instructions for Treatment How to access health informa tion online Indication:Abnormal glucose tolerance test Start:13-Oct-2017 Instruction Type:Patient Education How to access health informa tion online - Detail Indication:Abnormal glucose tolerance test Start:13-Oct-2017 Instruction Type:Patient Education Patient Instructions Indication:Abnormal glucose tolerance test Start:13-Oct-2017 Instruction Type:Provider Instructions for Treatment How to access health informa tion online Indication:BMI 29.0-29.9,adult Start:21-Aug-2017 Instruction Type:Patient Education How to access health informa tion online - Detail Indication:BMI 29.0-29.9,adult Start:21-Aug-2017 Instruction Type:Patient Education Patient Instructions Indication:BMI 29.0-29.9,adult Start:21-Aug-2017 Instruction Type:Provider Instructions for Treatment How to access health informa tion online Indication:Abnormal glucose tolerance test Start:11-Jun-2017 Instruction Type:Patient Education How to access health informa tion online - Detail Indication:Abnormal glucose tolerance test Start:11-Jun-2017 Instruction Type:Patient Education Patient Instructions Indication:Abnormal glucose tolerance test Start:11-Jun-2017 Instruction Type:Provider Instructions for Treatment How to access health informa tion online Indication:BMI 29.0-29.9,adult Start:30-May-2017 Instruction Type:Patient Education How to access health informa tion online - Detail Indication:BMI 29.0-29.9,adult Start:30-May-2017 Instruction Type:Patient Education Patient Instructions Indication:BMI 29.0-29.9,adult Start:30-May-2017 Instruction Type:Provider Instructions for Treatment Patient Instructions Indication:BMI 29.0-29.9,adult Start:30-May-2017 Instruction Type:Provider Instructions for Treatment How to access health informa tion online Indication:BMI 27.0-27.9,adult Start:05-Feb-2017 Instruction Type:Patient Education How to access health informa tion online - Detail Indication:BMI 27.0-27.9,adult Start:05-Feb-2017 Instruction Type:Patient Education Patient Instructions Indication:BMI 27.0-27.9,adult Start:05-Feb-2017 Instruction Type:Provider Instructions for Treatment How to access health informa tion online Indication:Non-smoker Start:23-Oct-2016 Instruction Type:Patient Education How to access health informa tion online - Detail Indication:Non-smoker Start:23-Oct-2016 Instruction Type:Patient Education Patient Instructions Indication:Non-smoker Start:23-Oct-2016 Instruction Type:Provider Instructions for Treatment How to access health informa tion online Indication:Abnormal glucose tolerance test Start:02-Oct-2016 Instruction Type:Patient Education How to access health informa tion online - Detail Indication:Abnormal glucose tolerance test Start:02-Oct-2016 Instruction Type:Patient Education Patient Instructions Indication:Abnormal glucose tolerance test Start:02-Oct-2016 Instruction Type:Provider Instructions for Treatment How to access health informa tion online Indication:Non-smoker Start:29-May-2016 Instruction Type:Patient Education How to access health informa tion online - Detail Indication:Non-smoker Start:29-May-2016 Instruction Type:Patient Education Patient Instructions Indication:Non-smoker Start:29-May-2016 Instruction Type:Provider Instructions for Treatment Patient Instructions Indication:Abnormal glucose tolerance test Start:21-Feb-2016 Instruction Type:Provider Instructions for Treatment How to access health informa tion online Indication:Abnormal glucose tolerance test Start:21-Feb-2016 Instruction Type:Patient Education How to access health informa tion online - Detail Indication:Abnormal glucose tolerance test Start:21-Feb-2016 Instruction Type:Patient Education How to access health informa tion online Indication:Abnormal glucose tolerance test Start:20-Apr-2015 Instruction Type:Patient Education How to access health informa tion online - Detail Indication:Abnormal glucose tolerance test Start:20-Apr-2015 Instruction Type:Patient Education Patient Instructions Indication:Abnormal glucose tolerance test Start:20-Apr-2015 Instruction Type:Provider Instructions for Treatment How to access health informa tion online Indication:Anxiety Start:19-Dec-2014 Instruction Type:Patient Education How to access health informa tion online - Detail Indication:Anxiety Start:19-Dec-2014 Instruction Type:Patient Education Patient Instructions Indication:Anxiety Start:19-Dec-2014 Instruction Type:Provider Instructions for Treatment Patient Instructions Indication:Encounter for Medicare annual wellness exam Start:18-May-2014 Instruction Type:Provider Instructions for Treatment obesity counseling Indication:Hypertension, benign Start:18-May-2014 Instruction Type:Provider Instructions for Treatment Patient Instructions Indication:Hypertension, benign Start:01-Nov-2013 Instruction Type:Provider Instructions for Treatment Patient Instructions: stop a ltace adn start norvas for bp Indication:Hypertension, benign Start:19-Apr-2013 Instruction Type:Provider Instructions for Treatment Patient Instructions Indication:Pain in joint involving lower leg Start:07-Dec-2012 Instruction Type:Provider Instructions for Treatment Patient Instructions Indication:Encounter for Medicare annual wellness exam Start:29-Apr-2012 Instruction Type:Provider Instructions for Treatment Patient Instructions Indication:Anxiety Start:16-Apr-2012 Instruction Type:Provider Instructions for Treatment [facility]; [facility] Work Phone: Instructions* Name Dates Details Patient Instructions Indication:Abnormal glucose tolerance test Start:04-Feb-2022 Instruction Type:Provider Instructions for Treatment How to Access Health Informa tion Online using Patient Portal and [employer] Apps Indication:Abnormal glucose tolerance test Start:04-Feb-2022 Instruction Type:Patient Education Patient Instructions Indication:BMI 29.0-29.9,adult Start:10-Sep-2021 Instruction Type:Provider Instructions for Treatment How to Access Health Informa tion Online using Patient Portal and [employer] Apps Indication:BMI 29.0-29.9,adult Start:10-Sep-2021 Instruction Type:Patient Education Patient Instructions Indication:Abnormal glucose tolerance test Start:25-Apr-2021 Instruction Type:Provider Instructions for Treatment How to Access Health Informa tion Online using Patient Portal and [employer] Apps Indication:Abnormal glucose tolerance test Start:25-Apr-2021 Instruction Type:Patient Education Patient Instructions Indication:Non-smoker Start:13-Dec-2020 Instruction Type:Provider Instructions for Treatment How to Access Health Informa tion Online using Patient Portal and [employer] Apps Indication:Non-smoker Start:13-Dec-2020 Instruction Type:Patient Education How to Access Health Informa tion Online using Patient Portal and [employer] Apps Indication:Non-smoker Start:09-Aug-2020 Instruction Type:Patient Education Patient Instructions Indication:Non-smoker Start:09-Aug-2020 Instruction Type:Provider Instructions for Treatment cardiovascular counseling Indication:CAD, multiple vessel Start:12-Jun-2020 Instruction Type:Provider Instructions for Treatment obesity counseling Indication:Abnormal glucose tolerance test Start:12-Jun-2020 Instruction Type:Provider Instructions for Treatment Patient Instructions Indication:Non-smoker Start:12-Jun-2020 Instruction Type:Provider Instructions for Treatment How to Access Health Informa tion Online using Patient Portal and [employer] Apps Indication:Non-smoker Start:12-Jun-2020 Instruction Type:Patient Education How to access health informa tion online Indication:Abnormal glucose tolerance test Start:14-Apr-2020 Instruction Type:Patient Education How to access health informa tion online - Detail Indication:Abnormal glucose tolerance test Start:14-Apr-2020 Instruction Type:Patient Education Patient Instructions Indication:Abnormal glucose tolerance test Start:14-Apr-2020 Instruction Type:Provider Instructions for Treatment How to access health informa tion online Indication:Non-smoker Start:10-Apr-2020 Instruction Type:Patient Education How to access health informa tion online - Detail Indication:Non-smoker Start:10-Apr-2020 Instruction Type:Patient Education Patient Instructions Indication:Non-smoker Start:10-Apr-2020 Instruction Type:Provider Instructions for Treatment How to access health informa tion online Indication:Non-smoker Start:26-Nov-2019 Instruction Type:Patient Education How to access health informa tion online - Detail Indication:Non-smoker Start:26-Nov-2019 Instruction Type:Patient Education Patient Instructions Indication:Non-smoker Start:26-Nov-2019 Instruction Type:Provider Instructions for Treatment How to access health informa tion online Indication:Abnormal glucose tolerance test Start:19-Jul-2019 Instruction Type:Patient Education How to access health informa tion online - Detail Indication:Abnormal glucose tolerance test Start:19-Jul-2019 Instruction Type:Patient Education Patient Instructions Indication:Abnormal glucose tolerance test Start:19-Jul-2019 Instruction Type:Provider Instructions for Treatment How to access health informa tion online Indication:Non-smoker Start:09-Jun-2019 Instruction Type:Patient Education How to access health informa tion online - Detail Indication:Non-smoker Start:09-Jun-2019 Instruction Type:Patient Education Patient Instructions Indication:Non-smoker Start:09-Jun-2019 Instruction Type:Provider Instructions for Treatment How to access health informa tion online Indication:Hypertension, benign Start:22-Mar-2019 Instruction Type:Patient Education How to access health informa tion online - Detail Indication:Hypertension, benign Start:22-Mar-2019 Instruction Type:Patient Education Patient Instructions Indication:Hypertension, benign Start:22-Mar-2019 Instruction Type:Provider Instructions for Treatment How to access health informa tion online Indication:Abnormal glucose tolerance test Start:20-Nov-2018 Instruction Type:Patient Education How to access health informa tion online - Detail Indication:Abnormal glucose tolerance test Start:20-Nov-2018 Instruction Type:Patient Education Patient Instructions Indication:Abnormal glucose tolerance test Start:20-Nov-2018 Instruction Type:Provider Instructions for Treatment How to access health informa tion online Indication:BMI 29.0-29.9,adult Start:29-Jun-2018 Instruction Type:Patient Education How to access health informa tion online - Detail Indication:BMI 29.0-29.9,adult Start:29-Jun-2018 Instruction Type:Patient Education How to access health informa tion online - Detail Indication:BMI 29.0-29.9,adult Start:29-Jun-2018 Instruction Type:Patient Education Patient Instructions Indication:BMI 29.0-29.9,adult Start:29-Jun-2018 Instruction Type:Provider Instructions for Treatment cardiovascular counseling Indication:CAD, multiple vessel Start:05-Jun-2018 Instruction Type:Provider Instructions for Treatment How to access health informa tion online Indication:Non-smoker Start:05-Jun-2018 Instruction Type:Patient Education How to access health informa tion online - Detail Indication:Non-smoker Start:05-Jun-2018 Instruction Type:Patient Education Patient Instructions Indication:Non-smoker Start:05-Jun-2018 Instruction Type:Provider Instructions for Treatment How to access health informa tion online Indication:Abnormal glucose tolerance test Start:13-Feb-2018 Instruction Type:Patient Education How to access health informa tion online - Detail Indication:Abnormal glucose tolerance test Start:13-Feb-2018 Instruction Type:Patient Education Patient Instructions Indication:Abnormal glucose tolerance test Start:13-Feb-2018 Instruction Type:Provider Instructions for Treatment How to access health informa tion online Indication:Abnormal glucose tolerance test Start:13-Oct-2017 Instruction Type:Patient Education How to access health informa tion online - Detail Indication:Abnormal glucose tolerance test Start:13-Oct-2017 Instruction Type:Patient Education Patient Instructions Indication:Abnormal glucose tolerance test Start:13-Oct-2017 Instruction Type:Provider Instructions for Treatment How to access health informa tion online Indication:BMI 29.0-29.9,adult Start:21-Aug-2017 Instruction Type:Patient Education How to access health informa tion online - Detail Indication:BMI 29.0-29.9,adult Start:21-Aug-2017 Instruction Type:Patient Education Patient Instructions Indication:BMI 29.0-29.9,adult Start:21-Aug-2017 Instruction Type:Provider Instructions for Treatment How to access health informa tion online Indication:Abnormal glucose tolerance test Start:11-Jun-2017 Instruction Type:Patient Education How to access health informa tion online - Detail Indication:Abnormal glucose tolerance test Start:11-Jun-2017 Instruction Type:Patient Education Patient Instructions Indication:Abnormal glucose tolerance test Start:11-Jun-2017 Instruction Type:Provider Instructions for Treatment How to access health informa tion online Indication:BMI 29.0-29.9,adult Start:30-May-2017 Instruction Type:Patient Education How to access health informa tion online - Detail Indication:BMI 29.0-29.9,adult Start:30-May-2017 Instruction Type:Patient Education Patient Instructions Indication:BMI 29.0-29.9,adult Start:30-May-2017 Instruction Type:Provider Instructions for Treatment Patient Instructions Indication:BMI 29.0-29.9,adult Start:30-May-2017 Instruction Type:Provider Instructions for Treatment How to access health informa tion online Indication:BMI 27.0-27.9,adult Start:05-Feb-2017 Instruction Type:Patient Education How to access health informa tion online - Detail Indication:BMI 27.0-27.9,adult Start:05-Feb-2017 Instruction Type:Patient Education Patient Instructions Indication:BMI 27.0-27.9,adult Start:05-Feb-2017 Instruction Type:Provider Instructions for Treatment How to access health informa tion online Indication:Non-smoker Start:23-Oct-2016 Instruction Type:Patient Education How to access health informa tion online - Detail Indication:Non-smoker Start:23-Oct-2016 Instruction Type:Patient Education Patient Instructions Indication:Non-smoker Start:23-Oct-2016 Instruction Type:Provider Instructions for Treatment How to access health informa tion online Indication:Abnormal glucose tolerance test Start:02-Oct-2016 Instruction Type:Patient Education How to access health informa tion online - Detail Indication:Abnormal glucose tolerance test Start:02-Oct-2016 Instruction Type:Patient Education Patient Instructions Indication:Abnormal glucose tolerance test Start:02-Oct-2016 Instruction Type:Provider Instructions for Treatment How to access health informa tion online Indication:Non-smoker Start:29-May-2016 Instruction Type:Patient Education How to access health informa tion online - Detail Indication:Non-smoker Start:29-May-2016 Instruction Type:Patient Education Patient Instructions Indication:Non-smoker Start:29-May-2016 Instruction Type:Provider Instructions for Treatment Patient Instructions Indication:Abnormal glucose tolerance test Start:21-Feb-2016 Instruction Type:Provider Instructions for Treatment How to access health informa tion online Indication:Abnormal glucose tolerance test Start:21-Feb-2016 Instruction Type:Patient Education How to access health informa tion online - Detail Indication:Abnormal glucose tolerance test Start:21-Feb-2016 Instruction Type:Patient Education How to access health informa tion online Indication:Abnormal glucose tolerance test Start:20-Apr-2015 Instruction Type:Patient Education How to access health informa tion online - Detail Indication:Abnormal glucose tolerance test Start:20-Apr-2015 Instruction Type:Patient Education Patient Instructions Indication:Abnormal glucose tolerance test Start:20-Apr-2015 Instruction Type:Provider Instructions for Treatment How to access health informa tion online Indication:Anxiety Start:19-Dec-2014 Instruction Type:Patient Education How to access health informa tion online - Detail Indication:Anxiety Start:19-Dec-2014 Instruction Type:Patient Education Patient Instructions Indication:Anxiety Start:19-Dec-2014 Instruction Type:Provider Instructions for Treatment Patient Instructions Indication:Encounter for Medicare annual wellness exam Start:18-May-2014 Instruction Type:Provider Instructions for Treatment obesity counseling Indication:Hypertension, benign Start:18-May-2014 Instruction Type:Provider Instructions for Treatment Patient Instructions Indication:Hypertension, benign Start:01-Nov-2013 Instruction Type:Provider Instructions for Treatment Patient Instructions: stop a ltace adn start norvas for bp Indication:Hypertension, benign Start:19-Apr-2013 Instruction Type:Provider Instructions for Treatment Patient Instructions Indication:Pain in joint involving lower leg Start:07-Dec-2012 Instruction Type:Provider Instructions for Treatment Patient Instructions Indication:Encounter for Medicare annual wellness exam Start:29-Apr-2012 Instruction Type:Provider Instructions for Treatment Patient Instructions Indication:Anxiety Start:16-Apr-2012 Instruction Type:Provider Instructions for Treatment [facility]; [facility] Work Phone: Instructions* Name Dates Details Patient Instructions Indication:Abnormal glucose tolerance test Start:07-Jun-2022 Instruction Type:Provider Instructions for Treatment How to Access Health Informa tion Online using Patient Portal and [employer] Apps Indication:Abnormal glucose tolerance test Start:07-Jun-2022 Instruction Type:Patient Education Patient Instructions Indication:Abnormal glucose tolerance test Start:04-Feb-2022 Instruction Type:Provider Instructions for Treatment How to Access Health Informa tion Online using Patient Portal and [employer] Apps Indication:Abnormal glucose tolerance test Start:04-Feb-2022 Instruction Type:Patient Education Patient Instructions Indication:BMI 29.0-29.9,adult Start:10-Sep-2021 Instruction Type:Provider Instructions for Treatment How to Access Health Informa tion Online using Patient Portal and [employer] Apps Indication:BMI 29.0-29.9,adult Start:10-Sep-2021 Instruction Type:Patient Education Patient Instructions Indication:Abnormal glucose tolerance test Start:25-Apr-2021 Instruction Type:Provider Instructions for Treatment How to Access Health Informa tion Online using Patient Portal and [employer] Apps Indication:Abnormal glucose tolerance test Start:25-Apr-2021 Instruction Type:Patient Education Patient Instructions Indication:Non-smoker Start:13-Dec-2020 Instruction Type:Provider Instructions for Treatment How to Access Health Informa tion Online using Patient Portal and [employer] Apps Indication:Non-smoker Start:13-Dec-2020 Instruction Type:Patient Education How to Access Health Informa tion Online using Patient Portal and [employer] Apps Indication:Non-smoker Start:09-Aug-2020 Instruction Type:Patient Education Patient Instructions Indication:Non-smoker Start:09-Aug-2020 Instruction Type:Provider Instructions for Treatment cardiovascular counseling Indication:CAD, multiple vessel Start:12-Jun-2020 Instruction Type:Provider Instructions for Treatment obesity counseling Indication:Abnormal glucose tolerance test Start:12-Jun-2020 Instruction Type:Provider Instructions for Treatment Patient Instructions Indication:Non-smoker Start:12-Jun-2020 Instruction Type:Provider Instructions for Treatment How to Access Health Informa tion Online using Patient Portal and [employer] Apps Indication:Non-smoker Start:12-Jun-2020 Instruction Type:Patient Education How to access health informa tion online Indication:Abnormal glucose tolerance test Start:14-Apr-2020 Instruction Type:Patient Education How to access health informa tion online - Detail Indication:Abnormal glucose tolerance test Start:14-Apr-2020 Instruction Type:Patient Education Patient Instructions Indication:Abnormal glucose tolerance test Start:14-Apr-2020 Instruction Type:Provider Instructions for Treatment How to access health informa tion online Indication:Non-smoker Start:10-Apr-2020 Instruction Type:Patient Education How to access health informa tion online - Detail Indication:Non-smoker Start:10-Apr-2020 Instruction Type:Patient Education Patient Instructions Indication:Non-smoker Start:10-Apr-2020 Instruction Type:Provider Instructions for Treatment How to access health informa tion online Indication:Non-smoker Start:26-Nov-2019 Instruction Type:Patient Education How to access health informa tion online - Detail Indication:Non-smoker Start:26-Nov-2019 Instruction Type:Patient Education Patient Instructions Indication:Non-smoker Start:26-Nov-2019 Instruction Type:Provider Instructions for Treatment How to access health informa tion online Indication:Abnormal glucose tolerance test Start:19-Jul-2019 Instruction Type:Patient Education How to access health informa tion online - Detail Indication:Abnormal glucose tolerance test Start:19-Jul-2019 Instruction Type:Patient Education Patient Instructions Indication:Abnormal glucose tolerance test Start:19-Jul-2019 Instruction Type:Provider Instructions for Treatment How to access health informa tion online Indication:Non-smoker Start:09-Jun-2019 Instruction Type:Patient Education How to access health informa tion online - Detail Indication:Non-smoker Start:09-Jun-2019 Instruction Type:Patient Education Patient Instructions Indication:Non-smoker Start:09-Jun-2019 Instruction Type:Provider Instructions for Treatment How to access health informa tion online Indication:Hypertension, benign Start:22-Mar-2019 Instruction Type:Patient Education How to access health informa tion online - Detail Indication:Hypertension, benign Start:22-Mar-2019 Instruction Type:Patient Education Patient Instructions Indication:Hypertension, benign Start:22-Mar-2019 Instruction Type:Provider Instructions for Treatment How to access health informa tion online Indication:Abnormal glucose tolerance test Start:20-Nov-2018 Instruction Type:Patient Education How to access health informa tion online - Detail Indication:Abnormal glucose tolerance test Start:20-Nov-2018 Instruction Type:Patient Education Patient Instructions Indication:Abnormal glucose tolerance test Start:20-Nov-2018 Instruction Type:Provider Instructions for Treatment How to access health informa tion online Indication:BMI 29.0-29.9,adult Start:29-Jun-2018 Instruction Type:Patient Education How to access health informa tion online - Detail Indication:BMI 29.0-29.9,adult Start:29-Jun-2018 Instruction Type:Patient Education How to access health informa tion online - Detail Indication:BMI 29.0-29.9,adult Start:29-Jun-2018 Instruction Type:Patient Education Patient Instructions Indication:BMI 29.0-29.9,adult Start:29-Jun-2018 Instruction Type:Provider Instructions for Treatment cardiovascular counseling Indication:CAD, multiple vessel Start:05-Jun-2018 Instruction Type:Provider Instructions for Treatment How to access health informa tion online Indication:Non-smoker Start:05-Jun-2018 Instruction Type:Patient Education How to access health informa tion online - Detail Indication:Non-smoker Start:05-Jun-2018 Instruction Type:Patient Education Patient Instructions Indication:Non-smoker Start:05-Jun-2018 Instruction Type:Provider Instructions for Treatment How to access health informa tion online Indication:Abnormal glucose tolerance test Start:13-Feb-2018 Instruction Type:Patient Education How to access health informa tion online - Detail Indication:Abnormal glucose tolerance test Start:13-Feb-2018 Instruction Type:Patient Education Patient Instructions Indication:Abnormal glucose tolerance test Start:13-Feb-2018 Instruction Type:Provider Instructions for Treatment How to access health informa tion online Indication:Abnormal glucose tolerance test Start:13-Oct-2017 Instruction Type:Patient Education How to access health informa tion online - Detail Indication:Abnormal glucose tolerance test Start:13-Oct-2017 Instruction Type:Patient Education Patient Instructions Indication:Abnormal glucose tolerance test Start:13-Oct-2017 Instruction Type:Provider Instructions for Treatment How to access health informa tion online Indication:BMI 29.0-29.9,adult Start:21-Aug-2017 Instruction Type:Patient Education How to access health informa tion online - Detail Indication:BMI 29.0-29.9,adult Start:21-Aug-2017 Instruction Type:Patient Education Patient Instructions Indication:BMI 29.0-29.9,adult Start:21-Aug-2017 Instruction Type:Provider Instructions for Treatment How to access health informa tion online Indication:Abnormal glucose tolerance test Start:11-Jun-2017 Instruction Type:Patient Education How to access health informa tion online - Detail Indication:Abnormal glucose tolerance test Start:11-Jun-2017 Instruction Type:Patient Education Patient Instructions Indication:Abnormal glucose tolerance test Start:11-Jun-2017 Instruction Type:Provider Instructions for Treatment How to access health informa tion online Indication:BMI 29.0-29.9,adult Start:30-May-2017 Instruction Type:Patient Education How to access health informa tion online - Detail Indication:BMI 29.0-29.9,adult Start:30-May-2017 Instruction Type:Patient Education Patient Instructions Indication:BMI 29.0-29.9,adult Start:30-May-2017 Instruction Type:Provider Instructions for Treatment Patient Instructions Indication:BMI 29.0-29.9,adult Start:30-May-2017 Instruction Type:Provider Instructions for Treatment How to access health informa tion online Indication:BMI 27.0-27.9,adult Start:05-Feb-2017 Instruction Type:Patient Education How to access health informa tion online - Detail Indication:BMI 27.0-27.9,adult Start:05-Feb-2017 Instruction Type:Patient Education Patient Instructions Indication:BMI 27.0-27.9,adult Start:05-Feb-2017 Instruction Type:Provider Instructions for Treatment How to access health informa tion online Indication:Non-smoker Start:23-Oct-2016 Instruction Type:Patient Education How to access health informa tion online - Detail Indication:Non-smoker Start:23-Oct-2016 Instruction Type:Patient Education Patient Instructions Indication:Non-smoker Start:23-Oct-2016 Instruction Type:Provider Instructions for Treatment How to access health informa tion online Indication:Abnormal glucose tolerance test Start:02-Oct-2016 Instruction Type:Patient Education How to access health informa tion online - Detail Indication:Abnormal glucose tolerance test Start:02-Oct-2016 Instruction Type:Patient Education Patient Instructions Indication:Abnormal glucose tolerance test Start:02-Oct-2016 Instruction Type:Provider Instructions for Treatment How to access health informa tion online Indication:Non-smoker Start:29-May-2016 Instruction Type:Patient Education How to access health informa tion online - Detail Indication:Non-smoker Start:29-May-2016 Instruction Type:Patient Education Patient Instructions Indication:Non-smoker Start:29-May-2016 Instruction Type:Provider Instructions for Treatment Patient Instructions Indication:Abnormal glucose tolerance test Start:21-Feb-2016 Instruction Type:Provider Instructions for Treatment How to access health informa tion online Indication:Abnormal glucose tolerance test Start:21-Feb-2016 Instruction Type:Patient Education How to access health informa tion online - Detail Indication:Abnormal glucose tolerance test Start:21-Feb-2016 Instruction Type:Patient Education How to access health informa tion online Indication:Abnormal glucose tolerance test Start:20-Apr-2015 Instruction Type:Patient Education How to access health informa tion online - Detail Indication:Abnormal glucose tolerance test Start:20-Apr-2015 Instruction Type:Patient Education Patient Instructions Indication:Abnormal glucose tolerance test Start:20-Apr-2015 Instruction Type:Provider Instructions for Treatment How to access health informa tion online Indication:Anxiety Start:19-Dec-2014 Instruction Type:Patient Education How to access health informa tion online - Detail Indication:Anxiety Start:19-Dec-2014 Instruction Type:Patient Education Patient Instructions Indication:Anxiety Start:19-Dec-2014 Instruction Type:Provider Instructions for Treatment Patient Instructions Indication:Encounter for Medicare annual wellness exam Start:18-May-2014 Instruction Type:Provider Instructions for Treatment obesity counseling Indication:Hypertension, benign Start:18-May-2014 Instruction Type:Provider Instructions for Treatment Patient Instructions Indication:Hypertension, benign Start:01-Nov-2013 Instruction Type:Provider Instructions for Treatment Patient Instructions: stop a ltace adn start norvas for bp Indication:Hypertension, benign Start:19-Apr-2013 Instruction Type:Provider Instructions for Treatment Patient Instructions Indication:Pain in joint involving lower leg Start:07-Dec-2012 Instruction Type:Provider Instructions for Treatment Patient Instructions Indication:Encounter for Medicare annual wellness exam Start:29-Apr-2012 Instruction Type:Provider Instructions for Treatment Patient Instructions Indication:Anxiety Start:16-Apr-2012 Instruction Type:Provider Instructions for Treatment [facility]; [facility] Work Phone: Instructions* Name Dates Details Patient Instructions Indication:Abnormal glucose tolerance test Start:07-Jun-2022 Instruction Type:Provider Instructions for Treatment How to Access Health Informa tion Online using Patient Portal and [employer] Apps Indication:Abnormal glucose tolerance test Start:07-Jun-2022 Instruction Type:Patient Education Patient Instructions Indication:Abnormal glucose tolerance test Start:04-Feb-2022 Instruction Type:Provider Instructions for Treatment How to Access Health Informa tion Online using Patient Portal and [employer] Apps Indication:Abnormal glucose tolerance test Start:04-Feb-2022 Instruction Type:Patient Education Patient Instructions Indication:BMI 29.0-29.9,adult Start:10-Sep-2021 Instruction Type:Provider Instructions for Treatment How to Access Health Informa tion Online using Patient Portal and [employer] Apps Indication:BMI 29.0-29.9,adult Start:10-Sep-2021 Instruction Type:Patient Education Patient Instructions Indication:Abnormal glucose tolerance test Start:25-Apr-2021 Instruction Type:Provider Instructions for Treatment How to Access Health Informa tion Online using Patient Portal and [employer] Apps Indication:Abnormal glucose tolerance test Start:25-Apr-2021 Instruction Type:Patient Education Patient Instructions Indication:Non-smoker Start:13-Dec-2020 Instruction Type:Provider Instructions for Treatment How to Access Health Informa tion Online using Patient Portal and [employer] Apps Indication:Non-smoker Start:13-Dec-2020 Instruction Type:Patient Education How to Access Health Informa tion Online using Patient Portal and [employer] Apps Indication:Non-smoker Start:09-Aug-2020 Instruction Type:Patient Education Patient Instructions Indication:Non-smoker Start:09-Aug-2020 Instruction Type:Provider Instructions for Treatment cardiovascular counseling Indication:CAD, multiple vessel Start:12-Jun-2020 Instruction Type:Provider Instructions for Treatment obesity counseling Indication:Abnormal glucose tolerance test Start:12-Jun-2020 Instruction Type:Provider Instructions for Treatment Patient Instructions Indication:Non-smoker Start:12-Jun-2020 Instruction Type:Provider Instructions for Treatment How to Access Health Informa tion Online using Patient Portal and [employer] Apps Indication:Non-smoker Start:12-Jun-2020 Instruction Type:Patient Education How to access health informa tion online Indication:Abnormal glucose tolerance test Start:14-Apr-2020 Instruction Type:Patient Education How to access health informa tion online - Detail Indication:Abnormal glucose tolerance test Start:14-Apr-2020 Instruction Type:Patient Education Patient Instructions Indication:Abnormal glucose tolerance test Start:14-Apr-2020 Instruction Type:Provider Instructions for Treatment How to access health informa tion online Indication:Non-smoker Start:10-Apr-2020 Instruction Type:Patient Education How to access health informa tion online - Detail Indication:Non-smoker Start:10-Apr-2020 Instruction Type:Patient Education Patient Instructions Indication:Non-smoker Start:10-Apr-2020 Instruction Type:Provider Instructions for Treatment How to access health informa tion online Indication:Non-smoker Start:26-Nov-2019 Instruction Type:Patient Education How to access health informa tion online - Detail Indication:Non-smoker Start:26-Nov-2019 Instruction Type:Patient Education Patient Instructions Indication:Non-smoker Start:26-Nov-2019 Instruction Type:Provider Instructions for Treatment How to access health informa tion online Indication:Abnormal glucose tolerance test Start:19-Jul-2019 Instruction Type:Patient Education How to access health informa tion online - Detail Indication:Abnormal glucose tolerance test Start:19-Jul-2019 Instruction Type:Patient Education Patient Instructions Indication:Abnormal glucose tolerance test Start:19-Jul-2019 Instruction Type:Provider Instructions for Treatment How to access health informa tion online Indication:Non-smoker Start:09-Jun-2019 Instruction Type:Patient Education How to access health informa tion online - Detail Indication:Non-smoker Start:09-Jun-2019 Instruction Type:Patient Education Patient Instructions Indication:Non-smoker Start:09-Jun-2019 Instruction Type:Provider Instructions for Treatment How to access health informa tion online Indication:Hypertension, benign Start:22-Mar-2019 Instruction Type:Patient Education How to access health informa tion online - Detail Indication:Hypertension, benign Start:22-Mar-2019 Instruction Type:Patient Education Patient Instructions Indication:Hypertension, benign Start:22-Mar-2019 Instruction Type:Provider Instructions for Treatment How to access health informa tion online Indication:Abnormal glucose tolerance test Start:20-Nov-2018 Instruction Type:Patient Education How to access health informa tion online - Detail Indication:Abnormal glucose tolerance test Start:20-Nov-2018 Instruction Type:Patient Education Patient Instructions Indication:Abnormal glucose tolerance test Start:20-Nov-2018 Instruction Type:Provider Instructions for Treatment How to access health informa tion online Indication:BMI 29.0-29.9,adult Start:29-Jun-2018 Instruction Type:Patient Education How to access health informa tion online - Detail Indication:BMI 29.0-29.9,adult Start:29-Jun-2018 Instruction Type:Patient Education How to access health informa tion online - Detail Indication:BMI 29.0-29.9,adult Start:29-Jun-2018 Instruction Type:Patient Education Patient Instructions Indication:BMI 29.0-29.9,adult Start:29-Jun-2018 Instruction Type:Provider Instructions for Treatment cardiovascular counseling Indication:CAD, multiple vessel Start:05-Jun-2018 Instruction Type:Provider Instructions for Treatment How to access health informa tion online Indication:Non-smoker Start:05-Jun-2018 Instruction Type:Patient Education How to access health informa tion online - Detail Indication:Non-smoker Start:05-Jun-2018 Instruction Type:Patient Education Patient Instructions Indication:Non-smoker Start:05-Jun-2018 Instruction Type:Provider Instructions for Treatment How to access health informa tion online Indication:Abnormal glucose tolerance test Start:13-Feb-2018 Instruction Type:Patient Education How to access health informa tion online - Detail Indication:Abnormal glucose tolerance test Start:13-Feb-2018 Instruction Type:Patient Education Patient Instructions Indication:Abnormal glucose tolerance test Start:13-Feb-2018 Instruction Type:Provider Instructions for Treatment How to access health informa tion online Indication:Abnormal glucose tolerance test Start:13-Oct-2017 Instruction Type:Patient Education How to access health informa tion online - Detail Indication:Abnormal glucose tolerance test Start:13-Oct-2017 Instruction Type:Patient Education Patient Instructions Indication:Abnormal glucose tolerance test Start:13-Oct-2017 Instruction Type:Provider Instructions for Treatment How to access health informa tion online Indication:BMI 29.0-29.9,adult Start:21-Aug-2017 Instruction Type:Patient Education How to access health informa tion online - Detail Indication:BMI 29.0-29.9,adult Start:21-Aug-2017 Instruction Type:Patient Education Patient Instructions Indication:BMI 29.0-29.9,adult Start:21-Aug-2017 Instruction Type:Provider Instructions for Treatment How to access health informa tion online Indication:Abnormal glucose tolerance test Start:11-Jun-2017 Instruction Type:Patient Education How to access health informa tion online - Detail Indication:Abnormal glucose tolerance test Start:11-Jun-2017 Instruction Type:Patient Education Patient Instructions Indication:Abnormal glucose tolerance test Start:11-Jun-2017 Instruction Type:Provider Instructions for Treatment How to access health informa tion online Indication:BMI 29.0-29.9,adult Start:30-May-2017 Instruction Type:Patient Education How to access health informa tion online - Detail Indication:BMI 29.0-29.9,adult Start:30-May-2017 Instruction Type:Patient Education Patient Instructions Indication:BMI 29.0-29.9,adult Start:30-May-2017 Instruction Type:Provider Instructions for Treatment Patient Instructions Indication:BMI 29.0-29.9,adult Start:30-May-2017 Instruction Type:Provider Instructions for Treatment How to access health informa tion online Indication:BMI 27.0-27.9,adult Start:05-Feb-2017 Instruction Type:Patient Education How to access health informa tion online - Detail Indication:BMI 27.0-27.9,adult Start:05-Feb-2017 Instruction Type:Patient Education Patient Instructions Indication:BMI 27.0-27.9,adult Start:05-Feb-2017 Instruction Type:Provider Instructions for Treatment How to access health informa tion online Indication:Non-smoker Start:23-Oct-2016 Instruction Type:Patient Education How to access health informa tion online - Detail Indication:Non-smoker Start:23-Oct-2016 Instruction Type:Patient Education Patient Instructions Indication:Non-smoker Start:23-Oct-2016 Instruction Type:Provider Instructions for Treatment How to access health informa tion online Indication:Abnormal glucose tolerance test Start:02-Oct-2016 Instruction Type:Patient Education How to access health informa tion online - Detail Indication:Abnormal glucose tolerance test Start:02-Oct-2016 Instruction Type:Patient Education Patient Instructions Indication:Abnormal glucose tolerance test Start:02-Oct-2016 Instruction Type:Provider Instructions for Treatment How to access health informa tion online Indication:Non-smoker Start:29-May-2016 Instruction Type:Patient Education How to access health informa tion online - Detail Indication:Non-smoker Start:29-May-2016 Instruction Type:Patient Education Patient Instructions Indication:Non-smoker Start:29-May-2016 Instruction Type:Provider Instructions for Treatment Patient Instructions Indication:Abnormal glucose tolerance test Start:21-Feb-2016 Instruction Type:Provider Instructions for Treatment How to access health informa tion online Indication:Abnormal glucose tolerance test Start:21-Feb-2016 Instruction Type:Patient Education How to access health informa tion online - Detail Indication:Abnormal glucose tolerance test Start:21-Feb-2016 Instruction Type:Patient Education How to access health informa tion online Indication:Abnormal glucose tolerance test Start:20-Apr-2015 Instruction Type:Patient Education How to access health informa tion online - Detail Indication:Abnormal glucose tolerance test Start:20-Apr-2015 Instruction Type:Patient Education Patient Instructions Indication:Abnormal glucose tolerance test Start:20-Apr-2015 Instruction Type:Provider Instructions for Treatment How to access health informa tion online Indication:Anxiety Start:19-Dec-2014 Instruction Type:Patient Education How to access health informa tion online - Detail Indication:Anxiety Start:19-Dec-2014 Instruction Type:Patient Education Patient Instructions Indication:Anxiety Start:19-Dec-2014 Instruction Type:Provider Instructions for Treatment Patient Instructions Indication:Encounter for Medicare annual wellness exam Start:18-May-2014 Instruction Type:Provider Instructions for Treatment obesity counseling Indication:Hypertension, benign Start:18-May-2014 Instruction Type:Provider Instructions for Treatment Patient Instructions Indication:Hypertension, benign Start:01-Nov-2013 Instruction Type:Provider Instructions for Treatment Patient Instructions: stop a ltace adn start norvas for bp Indication:Hypertension, benign Start:19-Apr-2013 Instruction Type:Provider Instructions for Treatment Patient Instructions Indication:Pain in joint involving lower leg Start:07-Dec-2012 Instruction Type:Provider Instructions for Treatment Patient Instructions Indication:Encounter for Medicare annual wellness exam Start:29-Apr-2012 Instruction Type:Provider Instructions for Treatment Patient Instructions Indication:Anxiety Start:16-Apr-2012 Instruction Type:Provider Instructions for Treatment [facility]; [facility] Work Phone: Instructions* Name Dates Details Patient Instructions Indication:Abnormal glucose tolerance test Start:07-Jun-2022 Instruction Type:Provider Instructions for Treatment How to Access Health Informa tion Online using Patient Portal and [employer] Apps Indication:Abnormal glucose tolerance test Start:07-Jun-2022 Instruction Type:Patient Education Patient Instructions Indication:Abnormal glucose tolerance test Start:04-Feb-2022 Instruction Type:Provider Instructions for Treatment How to Access Health Informa tion Online using Patient Portal and [employer] Apps Indication:Abnormal glucose tolerance test Start:04-Feb-2022 Instruction Type:Patient Education Patient Instructions Indication:BMI 29.0-29.9,adult Start:10-Sep-2021 Instruction Type:Provider Instructions for Treatment How to Access Health Informa tion Online using Patient Portal and [employer] Apps Indication:BMI 29.0-29.9,adult Start:10-Sep-2021 Instruction Type:Patient Education Patient Instructions Indication:Abnormal glucose tolerance test Start:25-Apr-2021 Instruction Type:Provider Instructions for Treatment How to Access Health Informa tion Online using Patient Portal and [employer] Apps Indication:Abnormal glucose tolerance test Start:25-Apr-2021 Instruction Type:Patient Education Patient Instructions Indication:Non-smoker Start:13-Dec-2020 Instruction Type:Provider Instructions for Treatment How to Access Health Informa tion Online using Patient Portal and [employer] Apps Indication:Non-smoker Start:13-Dec-2020 Instruction Type:Patient Education How to Access Health Informa tion Online using Patient Portal and [employer] Apps Indication:Non-smoker Start:09-Aug-2020 Instruction Type:Patient Education Patient Instructions Indication:Non-smoker Start:09-Aug-2020 Instruction Type:Provider Instructions for Treatment cardiovascular counseling Indication:CAD, multiple vessel Start:12-Jun-2020 Instruction Type:Provider Instructions for Treatment obesity counseling Indication:Abnormal glucose tolerance test Start:12-Jun-2020 Instruction Type:Provider Instructions for Treatment Patient Instructions Indication:Non-smoker Start:12-Jun-2020 Instruction Type:Provider Instructions for Treatment How to Access Health Informa tion Online using Patient Portal and [employer] Apps Indication:Non-smoker Start:12-Jun-2020 Instruction Type:Patient Education How to access health informa tion online Indication:Abnormal glucose tolerance test Start:14-Apr-2020 Instruction Type:Patient Education How to access health informa tion online - Detail Indication:Abnormal glucose tolerance test Start:14-Apr-2020 Instruction Type:Patient Education Patient Instructions Indication:Abnormal glucose tolerance test Start:14-Apr-2020 Instruction Type:Provider Instructions for Treatment How to access health informa tion online Indication:Non-smoker Start:10-Apr-2020 Instruction Type:Patient Education How to access health informa tion online - Detail Indication:Non-smoker Start:10-Apr-2020 Instruction Type:Patient Education Patient Instructions Indication:Non-smoker Start:10-Apr-2020 Instruction Type:Provider Instructions for Treatment How to access health informa tion online Indication:Non-smoker Start:26-Nov-2019 Instruction Type:Patient Education How to access health informa tion online - Detail Indication:Non-smoker Start:26-Nov-2019 Instruction Type:Patient Education Patient Instructions Indication:Non-smoker Start:26-Nov-2019 Instruction Type:Provider Instructions for Treatment How to access health informa tion online Indication:Abnormal glucose tolerance test Start:19-Jul-2019 Instruction Type:Patient Education How to access health informa tion online - Detail Indication:Abnormal glucose tolerance test Start:19-Jul-2019 Instruction Type:Patient Education Patient Instructions Indication:Abnormal glucose tolerance test Start:19-Jul-2019 Instruction Type:Provider Instructions for Treatment How to access health informa tion online Indication:Non-smoker Start:09-Jun-2019 Instruction Type:Patient Education How to access health informa tion online - Detail Indication:Non-smoker Start:09-Jun-2019 Instruction Type:Patient Education Patient Instructions Indication:Non-smoker Start:09-Jun-2019 Instruction Type:Provider Instructions for Treatment How to access health informa tion online Indication:Hypertension, benign Start:22-Mar-2019 Instruction Type:Patient Education How to access health informa tion online - Detail Indication:Hypertension, benign Start:22-Mar-2019 Instruction Type:Patient Education Patient Instructions Indication:Hypertension, benign Start:22-Mar-2019 Instruction Type:Provider Instructions for Treatment How to access health informa tion online Indication:Abnormal glucose tolerance test Start:20-Nov-2018 Instruction Type:Patient Education How to access health informa tion online - Detail Indication:Abnormal glucose tolerance test Start:20-Nov-2018 Instruction Type:Patient Education Patient Instructions Indication:Abnormal glucose tolerance test Start:20-Nov-2018 Instruction Type:Provider Instructions for Treatment How to access health informa tion online Indication:BMI 29.0-29.9,adult Start:29-Jun-2018 Instruction Type:Patient Education How to access health informa tion online - Detail Indication:BMI 29.0-29.9,adult Start:29-Jun-2018 Instruction Type:Patient Education How to access health informa tion online - Detail Indication:BMI 29.0-29.9,adult Start:29-Jun-2018 Instruction Type:Patient Education Patient Instructions Indication:BMI 29.0-29.9,adult Start:29-Jun-2018 Instruction Type:Provider Instructions for Treatment cardiovascular counseling Indication:CAD, multiple vessel Start:05-Jun-2018 Instruction Type:Provider Instructions for Treatment How to access health informa tion online Indication:Non-smoker Start:05-Jun-2018 Instruction Type:Patient Education How to access health informa tion online - Detail Indication:Non-smoker Start:05-Jun-2018 Instruction Type:Patient Education Patient Instructions Indication:Non-smoker Start:05-Jun-2018 Instruction Type:Provider Instructions for Treatment How to access health informa tion online Indication:Abnormal glucose tolerance test Start:13-Feb-2018 Instruction Type:Patient Education How to access health informa tion online - Detail Indication:Abnormal glucose tolerance test Start:13-Feb-2018 Instruction Type:Patient Education Patient Instructions Indication:Abnormal glucose tolerance test Start:13-Feb-2018 Instruction Type:Provider Instructions for Treatment How to access health informa tion online Indication:Abnormal glucose tolerance test Start:13-Oct-2017 Instruction Type:Patient Education How to access health informa tion online - Detail Indication:Abnormal glucose tolerance test Start:13-Oct-2017 Instruction Type:Patient Education Patient Instructions Indication:Abnormal glucose tolerance test Start:13-Oct-2017 Instruction Type:Provider Instructions for Treatment How to access health informa tion online Indication:BMI 29.0-29.9,adult Start:21-Aug-2017 Instruction Type:Patient Education How to access health informa tion online - Detail Indication:BMI 29.0-29.9,adult Start:21-Aug-2017 Instruction Type:Patient Education Patient Instructions Indication:BMI 29.0-29.9,adult Start:21-Aug-2017 Instruction Type:Provider Instructions for Treatment How to access health informa tion online Indication:Abnormal glucose tolerance test Start:11-Jun-2017 Instruction Type:Patient Education How to access health informa tion online - Detail Indication:Abnormal glucose tolerance test Start:11-Jun-2017 Instruction Type:Patient Education Patient Instructions Indication:Abnormal glucose tolerance test Start:11-Jun-2017 Instruction Type:Provider Instructions for Treatment How to access health informa tion online Indication:BMI 29.0-29.9,adult Start:30-May-2017 Instruction Type:Patient Education How to access health informa tion online - Detail Indication:BMI 29.0-29.9,adult Start:30-May-2017 Instruction Type:Patient Education Patient Instructions Indication:BMI 29.0-29.9,adult Start:30-May-2017 Instruction Type:Provider Instructions for Treatment Patient Instructions Indication:BMI 29.0-29.9,adult Start:30-May-2017 Instruction Type:Provider Instructions for Treatment How to access health informa tion online Indication:BMI 27.0-27.9,adult Start:05-Feb-2017 Instruction Type:Patient Education How to access health informa tion online - Detail Indication:BMI 27.0-27.9,adult Start:05-Feb-2017 Instruction Type:Patient Education Patient Instructions Indication:BMI 27.0-27.9,adult Start:05-Feb-2017 Instruction Type:Provider Instructions for Treatment How to access health informa tion online Indication:Non-smoker Start:23-Oct-2016 Instruction Type:Patient Education How to access health informa tion online - Detail Indication:Non-smoker Start:23-Oct-2016 Instruction Type:Patient Education Patient Instructions Indication:Non-smoker Start:23-Oct-2016 Instruction Type:Provider Instructions for Treatment How to access health informa tion online Indication:Abnormal glucose tolerance test Start:02-Oct-2016 Instruction Type:Patient Education How to access health informa tion online - Detail Indication:Abnormal glucose tolerance test Start:02-Oct-2016 Instruction Type:Patient Education Patient Instructions Indication:Abnormal glucose tolerance test Start:02-Oct-2016 Instruction Type:Provider Instructions for Treatment How to access health informa tion online Indication:Non-smoker Start:29-May-2016 Instruction Type:Patient Education How to access health informa tion online - Detail Indication:Non-smoker Start:29-May-2016 Instruction Type:Patient Education Patient Instructions Indication:Non-smoker Start:29-May-2016 Instruction Type:Provider Instructions for Treatment Patient Instructions Indication:Abnormal glucose tolerance test Start:21-Feb-2016 Instruction Type:Provider Instructions for Treatment How to access health informa tion online Indication:Abnormal glucose tolerance test Start:21-Feb-2016 Instruction Type:Patient Education How to access health informa tion online - Detail Indication:Abnormal glucose tolerance test Start:21-Feb-2016 Instruction Type:Patient Education How to access health informa tion online Indication:Abnormal glucose tolerance test Start:20-Apr-2015 Instruction Type:Patient Education How to access health informa tion online - Detail Indication:Abnormal glucose tolerance test Start:20-Apr-2015 Instruction Type:Patient Education Patient Instructions Indication:Abnormal glucose tolerance test Start:20-Apr-2015 Instruction Type:Provider Instructions for Treatment How to access health informa tion online Indication:Anxiety Start:19-Dec-2014 Instruction Type:Patient Education How to access health informa tion online - Detail Indication:Anxiety Start:19-Dec-2014 Instruction Type:Patient Education Patient Instructions Indication:Anxiety Start:19-Dec-2014 Instruction Type:Provider Instructions for Treatment Patient Instructions Indication:Encounter for Medicare annual wellness exam Start:18-May-2014 Instruction Type:Provider Instructions for Treatment obesity counseling Indication:Hypertension, benign Start:18-May-2014 Instruction Type:Provider Instructions for Treatment Patient Instructions Indication:Hypertension, benign Start:01-Nov-2013 Instruction Type:Provider Instructions for Treatment Patient Instructions: stop a ltace adn start norvasc for bp Indication:Hypertension, benign Start:19-Apr-2013 Instruction Type:Provider Instructions for Treatment Patient Instructions Indication:Pain in joint involving lower leg Start:07-Dec-2012 Instruction Type:Provider Instructions for Treatment Patient Instructions Indication:Encounter for Medicare annual wellness exam Start:29-Apr-2012 Instruction Type:Provider Instructions for Treatment Patient Instructions Indication:Anxiety Start:16-Apr-2012 Instruction Type:Provider Instructions for Treatment [facility]; [facility] Work Phone: Instructions* Name Dates Details Patient Instructions Indication:BMI 29.0-29.9,adult Start:05-Aug-2022 Instruction Type:Provider Instructions for Treatment How to Access Health Informa tion Online using Patient Portal and [employer] Apps Indication:BMI 29.0-29.9,adult Start:05-Aug-2022 Instruction Type:Patient Education Patient Instructions Indication:Abnormal glucose tolerance test Start:07-Jun-2022 Instruction Type:Provider Instructions for Treatment How to Access Health Informa tion Online using Patient Portal and [employer] Apps Indication:Abnormal glucose tolerance test Start:07-Jun-2022 Instruction Type:Patient Education Patient Instructions Indication:Abnormal glucose tolerance test Start:04-Feb-2022 Instruction Type:Provider Instructions for Treatment How to Access Health Informa tion Online using Patient Portal and [employer] Apps Indication:Abnormal glucose tolerance test Start:04-Feb-2022 Instruction Type:Patient Education Patient Instructions Indication:BMI 29.0-29.9,adult Start:10-Sep-2021 Instruction Type:Provider Instructions for Treatment How to Access Health Informa tion Online using Patient Portal and [employer] Apps Indication:BMI 29.0-29.9,adult Start:10-Sep-2021 Instruction Type:Patient Education Patient Instructions Indication:Abnormal glucose tolerance test Start:25-Apr-2021 Instruction Type:Provider Instructions for Treatment How to Access Health Informa tion Online using Patient Portal and [employer] Apps Indication:Abnormal glucose tolerance test Start:25-Apr-2021 Instruction Type:Patient Education Patient Instructions Indication:Non-smoker Start:13-Dec-2020 Instruction Type:Provider Instructions for Treatment How to Access Health Informa tion Online using Patient Portal and [employer] Apps Indication:Non-smoker Start:13-Dec-2020 Instruction Type:Patient Education How to Access Health Informa tion Online using Patient Portal and [employer] Apps Indication:Non-smoker Start:09-Aug-2020 Instruction Type:Patient Education Patient Instructions Indication:Non-smoker Start:09-Aug-2020 Instruction Type:Provider Instructions for Treatment cardiovascular counseling Indication:CAD, multiple vessel Start:12-Jun-2020 Instruction Type:Provider Instructions for Treatment obesity counseling Indication:Abnormal glucose tolerance test Start:12-Jun-2020 Instruction Type:Provider Instructions for Treatment Patient Instructions Indication:Non-smoker Start:12-Jun-2020 Instruction Type:Provider Instructions for Treatment How to Access Health Informa tion Online using Patient Portal and [employer] Apps Indication:Non-smoker Start:12-Jun-2020 Instruction Type:Patient Education How to access health informa tion online Indication:Abnormal glucose tolerance test Start:14-Apr-2020 Instruction Type:Patient Education How to access health informa tion online - Detail Indication:Abnormal glucose tolerance test Start:14-Apr-2020 Instruction Type:Patient Education Patient Instructions Indication:Abnormal glucose tolerance test Start:14-Apr-2020 Instruction Type:Provider Instructions for Treatment How to access health informa tion online Indication:Non-smoker Start:10-Apr-2020 Instruction Type:Patient Education How to access health informa tion online - Detail Indication:Non-smoker Start:10-Apr-2020 Instruction Type:Patient Education Patient Instructions Indication:Non-smoker Start:10-Apr-2020 Instruction Type:Provider Instructions for Treatment How to access health informa tion online Indication:Non-smoker Start:26-Nov-2019 Instruction Type:Patient Education How to access health informa tion online - Detail Indication:Non-smoker Start:26-Nov-2019 Instruction Type:Patient Education Patient Instructions Indication:Non-smoker Start:26-Nov-2019 Instruction Type:Provider Instructions for Treatment How to access health informa tion online Indication:Abnormal glucose tolerance test Start:19-Jul-2019 Instruction Type:Patient Education How to access health informa tion online - Detail Indication:Abnormal glucose tolerance test Start:19-Jul-2019 Instruction Type:Patient Education Patient Instructions Indication:Abnormal glucose tolerance test Start:19-Jul-2019 Instruction Type:Provider Instructions for Treatment How to access health informa tion online Indication:Non-smoker Start:09-Jun-2019 Instruction Type:Patient Education How to access health informa tion online - Detail Indication:Non-smoker Start:09-Jun-2019 Instruction Type:Patient Education Patient Instructions Indication:Non-smoker Start:09-Jun-2019 Instruction Type:Provider Instructions for Treatment How to access health informa tion online Indication:Hypertension, benign Start:22-Mar-2019 Instruction Type:Patient Education How to access health informa tion online - Detail Indication:Hypertension, benign Start:22-Mar-2019 Instruction Type:Patient Education Patient Instructions Indication:Hypertension, benign Start:22-Mar-2019 Instruction Type:Provider Instructions for Treatment How to access health informa tion online Indication:Abnormal glucose tolerance test Start:20-Nov-2018 Instruction Type:Patient Education How to access health informa tion online - Detail Indication:Abnormal glucose tolerance test Start:20-Nov-2018 Instruction Type:Patient Education Patient Instructions Indication:Abnormal glucose tolerance test Start:20-Nov-2018 Instruction Type:Provider Instructions for Treatment How to access health informa tion online Indication:BMI 29.0-29.9,adult Start:29-Jun-2018 Instruction Type:Patient Education How to access health informa tion online - Detail Indication:BMI 29.0-29.9,adult Start:29-Jun-2018 Instruction Type:Patient Education How to access health informa tion online - Detail Indication:BMI 29.0-29.9,adult Start:29-Jun-2018 Instruction Type:Patient Education Patient Instructions Indication:BMI 29.0-29.9,adult Start:29-Jun-2018 Instruction Type:Provider Instructions for Treatment cardiovascular counseling Indication:CAD, multiple vessel Start:05-Jun-2018 Instruction Type:Provider Instructions for Treatment How to access health informa tion online Indication:Non-smoker Start:05-Jun-2018 Instruction Type:Patient Education How to access health informa tion online - Detail Indication:Non-smoker Start:05-Jun-2018 Instruction Type:Patient Education Patient Instructions Indication:Non-smoker Start:05-Jun-2018 Instruction Type:Provider Instructions for Treatment How to access health informa tion online Indication:Abnormal glucose tolerance test Start:13-Feb-2018 Instruction Type:Patient Education How to access health informa tion online - Detail Indication:Abnormal glucose tolerance test Start:13-Feb-2018 Instruction Type:Patient Education Patient Instructions Indication:Abnormal glucose tolerance test Start:13-Feb-2018 Instruction Type:Provider Instructions for Treatment How to access health informa tion online Indication:Abnormal glucose tolerance test Start:13-Oct-2017 Instruction Type:Patient Education How to access health informa tion online - Detail Indication:Abnormal glucose tolerance test Start:13-Oct-2017 Instruction Type:Patient Education Patient Instructions Indication:Abnormal glucose tolerance test Start:13-Oct-2017 Instruction Type:Provider Instructions for Treatment How to access health informa tion online Indication:BMI 29.0-29.9,adult Start:21-Aug-2017 Instruction Type:Patient Education How to access health informa tion online - Detail Indication:BMI 29.0-29.9,adult Start:21-Aug-2017 Instruction Type:Patient Education Patient Instructions Indication:BMI 29.0-29.9,adult Start:21-Aug-2017 Instruction Type:Provider Instructions for Treatment How to access health informa tion online Indication:Abnormal glucose tolerance test Start:11-Jun-2017 Instruction Type:Patient Education How to access health informa tion online - Detail Indication:Abnormal glucose tolerance test Start:11-Jun-2017 Instruction Type:Patient Education Patient Instructions Indication:Abnormal glucose tolerance test Start:11-Jun-2017 Instruction Type:Provider Instructions for Treatment How to access health informa tion online Indication:BMI 29.0-29.9,adult Start:30-May-2017 Instruction Type:Patient Education How to access health informa tion online - Detail Indication:BMI 29.0-29.9,adult Start:30-May-2017 Instruction Type:Patient Education Patient Instructions Indication:BMI 29.0-29.9,adult Start:30-May-2017 Instruction Type:Provider Instructions for Treatment Patient Instructions Indication:BMI 29.0-29.9,adult Start:30-May-2017 Instruction Type:Provider Instructions for Treatment How to access health informa tion online Indication:BMI 27.0-27.9,adult Start:05-Feb-2017 Instruction Type:Patient Education How to access health informa tion online - Detail Indication:BMI 27.0-27.9,adult Start:05-Feb-2017 Instruction Type:Patient Education Patient Instructions Indication:BMI 27.0-27.9,adult Start:05-Feb-2017 Instruction Type:Provider Instructions for Treatment How to access health informa tion online Indication:Non-smoker Start:23-Oct-2016 Instruction Type:Patient Education How to access health informa tion online - Detail Indication:Non-smoker Start:23-Oct-2016 Instruction Type:Patient Education Patient Instructions Indication:Non-smoker Start:23-Oct-2016 Instruction Type:Provider Instructions for Treatment How to access health informa tion online Indication:Abnormal glucose tolerance test Start:02-Oct-2016 Instruction Type:Patient Education How to access health informa tion online - Detail Indication:Abnormal glucose tolerance test Start:02-Oct-2016 Instruction Type:Patient Education Patient Instructions Indication:Abnormal glucose tolerance test Start:02-Oct-2016 Instruction Type:Provider Instructions for Treatment How to access health informa tion online Indication:Non-smoker Start:29-May-2016 Instruction Type:Patient Education How to access health informa tion online - Detail Indication:Non-smoker Start:29-May-2016 Instruction Type:Patient Education Patient Instructions Indication:Non-smoker Start:29-May-2016 Instruction Type:Provider Instructions for Treatment Patient Instructions Indication:Abnormal glucose tolerance test Start:21-Feb-2016 Instruction Type:Provider Instructions for Treatment How to access health informa tion online Indication:Abnormal glucose tolerance test Start:21-Feb-2016 Instruction Type:Patient Education How to access health informa tion online - Detail Indication:Abnormal glucose tolerance test Start:21-Feb-2016 Instruction Type:Patient Education How to access health informa tion online Indication:Abnormal glucose tolerance test Start:20-Apr-2015 Instruction Type:Patient Education How to access health informa tion online - Detail Indication:Abnormal glucose tolerance test Start:20-Apr-2015 Instruction Type:Patient Education Patient Instructions Indication:Abnormal glucose tolerance test Start:20-Apr-2015 Instruction Type:Provider Instructions for Treatment How to access health informa tion online Indication:Anxiety Start:19-Dec-2014 Instruction Type:Patient Education How to access health informa tion online - Detail Indication:Anxiety Start:19-Dec-2014 Instruction Type:Patient Education Patient Instructions Indication:Anxiety Start:19-Dec-2014 Instruction Type:Provider Instructions for Treatment Patient Instructions Indication:Encounter for Medicare annual wellness exam Start:18-May-2014 Instruction Type:Provider Instructions for Treatment obesity counseling Indication:Hypertension, benign Start:18-May-2014 Instruction Type:Provider Instructions for Treatment Patient Instructions Indication:Hypertension, benign Start:01-Nov-2013 Instruction Type:Provider Instructions for Treatment Patient Instructions: stop a ltace adn start norvasc for bp Indication:Hypertension, benign Start:19-Apr-2013 Instruction Type:Provider Instructions for Treatment Patient Instructions Indication:Pain in joint involving lower leg Start:07-Dec-2012 Instruction Type:Provider Instructions for Treatment Patient Instructions Indication:Encounter for Medicare annual wellness exam Start:29-Apr-2012 Instruction Type:Provider Instructions for Treatment Patient Instructions Indication:Anxiety Start:16-Apr-2012 Instruction Type:Provider Instructions for Treatment [facility]; [facility] Work Phone: Instructions* Name Dates Details Patient Instructions Indication:BMI 30.0-30.9,adult Start:23-Oct-2022 Instruction Type:Provider Instructions for Treatment How to Access Health Informa tion Online using Patient Portal and [employer] Apps Indication:BMI 30.0-30.9,adult Start:23-Oct-2022 Instruction Type:Patient Education Patient Instructions Indication:BMI 29.0-29.9,adult Start:05-Aug-2022 Instruction Type:Provider Instructions for Treatment How to Access Health Informa tion Online using Patient Portal and [employer] Indication:BMI 29.0-29.9,adult Start:05-Aug-2022 Instruction Type:Patient Education Patient Instructions Indication:Abnormal glucose tolerance test Start:07-Jun-2022 Instruction Type:Provider Instructions for Treatment How to Access Health Informa tion Online using Patient Portal and [employer] Indication:Abnormal glucose tolerance test Start:07-Jun-2022 Instruction Type:Patient Education Patient Instructions Indication:Abnormal glucose tolerance test Start:04-Feb-2022 Instruction Type:Provider Instructions for Treatment How to Access Health Informa tion Online using Patient Portal and [employer] Indication:Abnormal glucose tolerance test Start:04-Feb-2022 Instruction Type:Patient Education Patient Instructions Indication:BMI 29.0-29.9,adult Start:10-Sep-2021 Instruction Type:Provider Instructions for Treatment How to Access Health Informa tion Online using Patient Portal and [employer] Indication:BMI 29.0-29.9,adult Start:10-Sep-2021 Instruction Type:Patient Education Patient Instructions Indication:Abnormal glucose tolerance test Start:25-Apr-2021 Instruction Type:Provider Instructions for Treatment How to Access Health Informa tion Online using Patient Portal and [employer] Apps Indication:Abnormal glucose tolerance test Start:25-Apr-2021 Instruction Type:Patient Education Patient Instructions Indication:Non-smoker Start:13-Dec-2020 Instruction Type:Provider Instructions for Treatment How to Access Health Informa tion Online using Patient Portal and [employer] Apps Indication:Non-smoker Start:13-Dec-2020 Instruction Type:Patient Education How to Access Health Informa tion Online using Patient Portal and [employer] Apps Indication:Non-smoker Start:09-Aug-2020 Instruction Type:Patient Education Patient Instructions Indication:Non-smoker Start:09-Aug-2020 Instruction Type:Provider Instructions for Treatment cardiovascular counseling Indication:CAD, multiple vessel Start:12-Jun-2020 Instruction Type:Provider Instructions for Treatment obesity counseling Indication:Abnormal glucose tolerance test Start:12-Jun-2020 Instruction Type:Provider Instructions for Treatment Patient Instructions Indication:Non-smoker Start:12-Jun-2020 Instruction Type:Provider Instructions for Treatment How to Access Health Informa tion Online using Patient Portal and [employer] Apps Indication:Non-smoker Start:12-Jun-2020 Instruction Type:Patient Education How to access health informa tion online Indication:Abnormal glucose tolerance test Start:14-Apr-2020 Instruction Type:Patient Education How to access health informa tion online - Detail Indication:Abnormal glucose tolerance test Start:14-Apr-2020 Instruction Type:Patient Education Patient Instructions Indication:Abnormal glucose tolerance test Start:14-Apr-2020 Instruction Type:Provider Instructions for Treatment How to access health informa tion online Indication:Non-smoker Start:10-Apr-2020 Instruction Type:Patient Education How to access health informa tion online - Detail Indication:Non-smoker Start:10-Apr-2020 Instruction Type:Patient Education Patient Instructions Indication:Non-smoker Start:10-Apr-2020 Instruction Type:Provider Instructions for Treatment How to access health informa tion online Indication:Non-smoker Start:26-Nov-2019 Instruction Type:Patient Education How to access health informa tion online - Detail Indication:Non-smoker Start:26-Nov-2019 Instruction Type:Patient Education Patient Instructions Indication:Non-smoker Start:26-Nov-2019 Instruction Type:Provider Instructions for Treatment How to access health informa tion online Indication:Abnormal glucose tolerance test Start:19-Jul-2019 Instruction Type:Patient Education How to access health informa tion online - Detail Indication:Abnormal glucose tolerance test Start:19-Jul-2019 Instruction Type:Patient Education Patient Instructions Indication:Abnormal glucose tolerance test Start:19-Jul-2019 Instruction Type:Provider Instructions for Treatment How to access health informa tion online Indication:Non-smoker Start:09-Jun-2019 Instruction Type:Patient Education How to access health informa tion online - Detail Indication:Non-smoker Start:09-Jun-2019 Instruction Type:Patient Education Patient Instructions Indication:Non-smoker Start:09-Jun-2019 Instruction Type:Provider Instructions for Treatment How to access health informa tion online Indication:Hypertension, benign Start:22-Mar-2019 Instruction Type:Patient Education How to access health informa tion online - Detail Indication:Hypertension, benign Start:22-Mar-2019 Instruction Type:Patient Education Patient Instructions Indication:Hypertension, benign Start:22-Mar-2019 Instruction Type:Provider Instructions for Treatment How to access health informa tion online Indication:Abnormal glucose tolerance test Start:20-Nov-2018 Instruction Type:Patient Education How to access health informa tion online - Detail Indication:Abnormal glucose tolerance test Start:20-Nov-2018 Instruction Type:Patient Education Patient Instructions Indication:Abnormal glucose tolerance test Start:20-Nov-2018 Instruction Type:Provider Instructions for Treatment How to access health informa tion online Indication:BMI 29.0-29.9,adult Start:29-Jun-2018 Instruction Type:Patient Education How to access health informa tion online - Detail Indication:BMI 29.0-29.9,adult Start:29-Jun-2018 Instruction Type:Patient Education How to access health informa tion online - Detail Indication:BMI 29.0-29.9,adult Start:29-Jun-2018 Instruction Type:Patient Education Patient Instructions Indication:BMI 29.0-29.9,adult Start:29-Jun-2018 Instruction Type:Provider Instructions for Treatment cardiovascular counseling Indication:CAD, multiple vessel Start:05-Jun-2018 Instruction Type:Provider Instructions for Treatment How to access health informa tion online Indication:Non-smoker Start:05-Jun-2018 Instruction Type:Patient Education How to access health informa tion online - Detail Indication:Non-smoker Start:05-Jun-2018 Instruction Type:Patient Education Patient Instructions Indication:Non-smoker Start:05-Jun-2018 Instruction Type:Provider Instructions for Treatment How to access health informa tion online Indication:Abnormal glucose tolerance test Start:13-Feb-2018 Instruction Type:Patient Education How to access health informa tion online - Detail Indication:Abnormal glucose tolerance test Start:13-Feb-2018 Instruction Type:Patient Education Patient Instructions Indication:Abnormal glucose tolerance test Start:13-Feb-2018 Instruction Type:Provider Instructions for Treatment How to access health informa tion online Indication:Abnormal glucose tolerance test Start:13-Oct-2017 Instruction Type:Patient Education How to access health informa tion online - Detail Indication:Abnormal glucose tolerance test Start:13-Oct-2017 Instruction Type:Patient Education Patient Instructions Indication:Abnormal glucose tolerance test Start:13-Oct-2017 Instruction Type:Provider Instructions for Treatment How to access health informa tion online Indication:BMI 29.0-29.9,adult Start:21-Aug-2017 Instruction Type:Patient Education How to access health informa tion online - Detail Indication:BMI 29.0-29.9,adult Start:21-Aug-2017 Instruction Type:Patient Education Patient Instructions Indication:BMI 29.0-29.9,adult Start:21-Aug-2017 Instruction Type:Provider Instructions for Treatment How to access health informa tion online Indication:Abnormal glucose tolerance test Start:11-Jun-2017 Instruction Type:Patient Education How to access health informa tion online - Detail Indication:Abnormal glucose tolerance test Start:11-Jun-2017 Instruction Type:Patient Education Patient Instructions Indication:Abnormal glucose tolerance test Start:11-Jun-2017 Instruction Type:Provider Instructions for Treatment How to access health informa tion online Indication:BMI 29.0-29.9,adult Start:30-May-2017 Instruction Type:Patient Education How to access health informa tion online - Detail Indication:BMI 29.0-29.9,adult Start:30-May-2017 Instruction Type:Patient Education Patient Instructions Indication:BMI 29.0-29.9,adult Start:30-May-2017 Instruction Type:Provider Instructions for Treatment Patient Instructions Indication:BMI 29.0-29.9,adult Start:30-May-2017 Instruction Type:Provider Instructions for Treatment How to access health informa tion online Indication:BMI 27.0-27.9,adult Start:05-Feb-2017 Instruction Type:Patient Education How to access health informa tion online - Detail Indication:BMI 27.0-27.9,adult Start:05-Feb-2017 Instruction Type:Patient Education Patient Instructions Indication:BMI 27.0-27.9,adult Start:05-Feb-2017 Instruction Type:Provider Instructions for Treatment How to access health informa tion online Indication:Non-smoker Start:23-Oct-2016 Instruction Type:Patient Education How to access health informa tion online - Detail Indication:Non-smoker Start:23-Oct-2016 Instruction Type:Patient Education Patient Instructions Indication:Non-smoker Start:23-Oct-2016 Instruction Type:Provider Instructions for Treatment How to access health informa tion online Indication:Abnormal glucose tolerance test Start:02-Oct-2016 Instruction Type:Patient Education How to access health informa tion online - Detail Indication:Abnormal glucose tolerance test Start:02-Oct-2016 Instruction Type:Patient Education Patient Instructions Indication:Abnormal glucose tolerance test Start:02-Oct-2016 Instruction Type:Provider Instructions for Treatment How to access health informa tion online Indication:Non-smoker Start:29-May-2016 Instruction Type:Patient Education How to access health informa tion online - Detail Indication:Non-smoker Start:29-May-2016 Instruction Type:Patient Education Patient Instructions Indication:Non-smoker Start:29-May-2016 Instruction Type:Provider Instructions for Treatment Patient Instructions Indication:Abnormal glucose tolerance test Start:21-Feb-2016 Instruction Type:Provider Instructions for Treatment How to access health informa tion online Indication:Abnormal glucose tolerance test Start:21-Feb-2016 Instruction Type:Patient Education How to access health informa tion online - Detail Indication:Abnormal glucose tolerance test Start:21-Feb-2016 Instruction Type:Patient Education How to access health informa tion online Indication:Abnormal glucose tolerance test Start:20-Apr-2015 Instruction Type:Patient Education How to access health informa tion online - Detail Indication:Abnormal glucose tolerance test Start:20-Apr-2015 Instruction Type:Patient Education Patient Instructions Indication:Abnormal glucose tolerance test Start:20-Apr-2015 Instruction Type:Provider Instructions for Treatment How to access health informa tion online Indication:Anxiety Start:19-Dec-2014 Instruction Type:Patient Education How to access health informa tion online - Detail Indication:Anxiety Start:19-Dec-2014 Instruction Type:Patient Education Patient Instructions Indication:Anxiety Start:19-Dec-2014 Instruction Type:Provider Instructions for Treatment Patient Instructions Indication:Encounter for Medicare annual wellness exam Start:18-May-2014 Instruction Type:Provider Instructions for Treatment obesity counseling Indication:Hypertension, benign Start:18-May-2014 Instruction Type:Provider Instructions for Treatment Patient Instructions Indication:Hypertension, benign Start:01-Nov-2013 Instruction Type:Provider Instructions for Treatment Patient Instructions: stop a ltace adn start norvas for bp Indication:Hypertension, benign Start:19-Apr-2013 Instruction Type:Provider Instructions for Treatment Patient Instructions Indication:Pain in joint involving lower leg Start:07-Dec-2012 Instruction Type:Provider Instructions for Treatment Patient Instructions Indication:Encounter for Medicare annual wellness exam Start:29-Apr-2012 Instruction Type:Provider Instructions for Treatment Patient Instructions Indication:Anxiety Start:16-Apr-2012 Instruction Type:Provider Instructions for Treatment [facility]; [facility] Work Phone: Instructions* Name Dates Details Patient Instructions Indication:BMI 30.0-30.9,adult Start:23-Oct-2022 Instruction Type:Provider Instructions for Treatment How to Access Health Informa tion Online using Patient Portal and [employer] Apps Indication:BMI 30.0-30.9,adult Start:23-Oct-2022 Instruction Type:Patient Education Patient Instructions Indication:BMI 29.0-29.9,adult Start:05-Aug-2022 Instruction Type:Provider Instructions for Treatment How to Access Health Informa tion Online using Patient Portal and [employer] Apps Indication:BMI 29.0-29.9,adult Start:05-Aug-2022 Instruction Type:Patient Education Patient Instructions Indication:Abnormal glucose tolerance test Start:07-Jun-2022 Instruction Type:Provider Instructions for Treatment How to Access Health Informa tion Online using Patient Portal and [employer] Apps Indication:Abnormal glucose tolerance test Start:07-Jun-2022 Instruction Type:Patient Education Patient Instructions Indication:Abnormal glucose tolerance test Start:04-Feb-2022 Instruction Type:Provider Instructions for Treatment How to Access Health Informa tion Online using Patient Portal and [employer] Apps Indication:Abnormal glucose tolerance test Start:04-Feb-2022 Instruction Type:Patient Education Patient Instructions Indication:BMI 29.0-29.9,adult Start:10-Sep-2021 Instruction Type:Provider Instructions for Treatment How to Access Health Informa tion Online using Patient Portal and [employer] Apps Indication:BMI 29.0-29.9,adult Start:10-Sep-2021 Instruction Type:Patient Education Patient Instructions Indication:Abnormal glucose tolerance test Start:25-Apr-2021 Instruction Type:Provider Instructions for Treatment How to Access Health Informa tion Online using Patient Portal and [employer] Apps Indication:Abnormal glucose tolerance test Start:25-Apr-2021 Instruction Type:Patient Education Patient Instructions Indication:Non-smoker Start:13-Dec-2020 Instruction Type:Provider Instructions for Treatment How to Access Health Informa tion Online using Patient Portal and [employer] Apps Indication:Non-smoker Start:13-Dec-2020 Instruction Type:Patient Education How to Access Health Informa tion Online using Patient Portal and [employer] Apps Indication:Non-smoker Start:09-Aug-2020 Instruction Type:Patient Education Patient Instructions Indication:Non-smoker Start:09-Aug-2020 Instruction Type:Provider Instructions for Treatment cardiovascular counseling Indication:CAD, multiple vessel Start:12-Jun-2020 Instruction Type:Provider Instructions for Treatment obesity counseling Indication:Abnormal glucose tolerance test Start:12-Jun-2020 Instruction Type:Provider Instructions for Treatment Patient Instructions Indication:Non-smoker Start:12-Jun-2020 Instruction Type:Provider Instructions for Treatment How to Access Health Informa tion Online using Patient Portal and [employer] Apps Indication:Non-smoker Start:12-Jun-2020 Instruction Type:Patient Education How to access health informa tion online Indication:Abnormal glucose tolerance test Start:14-Apr-2020 Instruction Type:Patient Education How to access health informa tion online - Detail Indication:Abnormal glucose tolerance test Start:14-Apr-2020 Instruction Type:Patient Education Patient Instructions Indication:Abnormal glucose tolerance test Start:14-Apr-2020 Instruction Type:Provider Instructions for Treatment How to access health informa tion online Indication:Non-smoker Start:10-Apr-2020 Instruction Type:Patient Education How to access health informa tion online - Detail Indication:Non-smoker Start:10-Apr-2020 Instruction Type:Patient Education Patient Instructions Indication:Non-smoker Start:10-Apr-2020 Instruction Type:Provider Instructions for Treatment How to access health informa tion online Indication:Non-smoker Start:26-Nov-2019 Instruction Type:Patient Education How to access health informa tion online - Detail Indication:Non-smoker Start:26-Nov-2019 Instruction Type:Patient Education Patient Instructions Indication:Non-smoker Start:26-Nov-2019 Instruction Type:Provider Instructions for Treatment How to access health informa tion online Indication:Abnormal glucose tolerance test Start:19-Jul-2019 Instruction Type:Patient Education How to access health informa tion online - Detail Indication:Abnormal glucose tolerance test Start:19-Jul-2019 Instruction Type:Patient Education Patient Instructions Indication:Abnormal glucose tolerance test Start:19-Jul-2019 Instruction Type:Provider Instructions for Treatment How to access health informa tion online Indication:Non-smoker Start:09-Jun-2019 Instruction Type:Patient Education How to access health informa tion online - Detail Indication:Non-smoker Start:09-Jun-2019 Instruction Type:Patient Education Patient Instructions Indication:Non-smoker Start:09-Jun-2019 Instruction Type:Provider Instructions for Treatment How to access health informa tion online Indication:Hypertension, benign Start:22-Mar-2019 Instruction Type:Patient Education How to access health informa tion online - Detail Indication:Hypertension, benign Start:22-Mar-2019 Instruction Type:Patient Education Patient Instructions Indication:Hypertension, benign Start:22-Mar-2019 Instruction Type:Provider Instructions for Treatment How to access health informa tion online Indication:Abnormal glucose tolerance test Start:20-Nov-2018 Instruction Type:Patient Education How to access health informa tion online - Detail Indication:Abnormal glucose tolerance test Start:20-Nov-2018 Instruction Type:Patient Education Patient Instructions Indication:Abnormal glucose tolerance test Start:20-Nov-2018 Instruction Type:Provider Instructions for Treatment How to access health informa tion online Indication:BMI 29.0-29.9,adult Start:29-Jun-2018 Instruction Type:Patient Education How to access health informa tion online - Detail Indication:BMI 29.0-29.9,adult Start:29-Jun-2018 Instruction Type:Patient Education How to access health informa tion online - Detail Indication:BMI 29.0-29.9,adult Start:29-Jun-2018 Instruction Type:Patient Education Patient Instructions Indication:BMI 29.0-29.9,adult Start:29-Jun-2018 Instruction Type:Provider Instructions for Treatment cardiovascular counseling Indication:CAD, multiple vessel Start:05-Jun-2018 Instruction Type:Provider Instructions for Treatment How to access health informa tion online Indication:Non-smoker Start:05-Jun-2018 Instruction Type:Patient Education How to access health informa tion online - Detail Indication:Non-smoker Start:05-Jun-2018 Instruction Type:Patient Education Patient Instructions Indication:Non-smoker Start:05-Jun-2018 Instruction Type:Provider Instructions for Treatment How to access health informa tion online Indication:Abnormal glucose tolerance test Start:13-Feb-2018 Instruction Type:Patient Education How to access health informa tion online - Detail Indication:Abnormal glucose tolerance test Start:13-Feb-2018 Instruction Type:Patient Education Patient Instructions Indication:Abnormal glucose tolerance test Start:13-Feb-2018 Instruction Type:Provider Instructions for Treatment How to access health informa tion online Indication:Abnormal glucose tolerance test Start:13-Oct-2017 Instruction Type:Patient Education How to access health informa tion online - Detail Indication:Abnormal glucose tolerance test Start:13-Oct-2017 Instruction Type:Patient Education Patient Instructions Indication:Abnormal glucose tolerance test Start:13-Oct-2017 Instruction Type:Provider Instructions for Treatment How to access health informa tion online Indication:BMI 29.0-29.9,adult Start:21-Aug-2017 Instruction Type:Patient Education How to access health informa tion online - Detail Indication:BMI 29.0-29.9,adult Start:21-Aug-2017 Instruction Type:Patient Education Patient Instructions Indication:BMI 29.0-29.9,adult Start:21-Aug-2017 Instruction Type:Provider Instructions for Treatment How to access health informa tion online Indication:Abnormal glucose tolerance test Start:11-Jun-2017 Instruction Type:Patient Education How to access health informa tion online - Detail Indication:Abnormal glucose tolerance test Start:11-Jun-2017 Instruction Type:Patient Education Patient Instructions Indication:Abnormal glucose tolerance test Start:11-Jun-2017 Instruction Type:Provider Instructions for Treatment How to access health informa tion online Indication:BMI 29.0-29.9,adult Start:30-May-2017 Instruction Type:Patient Education How to access health informa tion online - Detail Indication:BMI 29.0-29.9,adult Start:30-May-2017 Instruction Type:Patient Education Patient Instructions Indication:BMI 29.0-29.9,adult Start:30-May-2017 Instruction Type:Provider Instructions for Treatment Patient Instructions Indication:BMI 29.0-29.9,adult Start:30-May-2017 Instruction Type:Provider Instructions for Treatment How to access health informa tion online Indication:BMI 27.0-27.9,adult Start:05-Feb-2017 Instruction Type:Patient Education How to access health informa tion online - Detail Indication:BMI 27.0-27.9,adult Start:05-Feb-2017 Instruction Type:Patient Education Patient Instructions Indication:BMI 27.0-27.9,adult Start:05-Feb-2017 Instruction Type:Provider Instructions for Treatment How to access health informa tion online Indication:Non-smoker Start:23-Oct-2016 Instruction Type:Patient Education How to access health informa tion online - Detail Indication:Non-smoker Start:23-Oct-2016 Instruction Type:Patient Education Patient Instructions Indication:Non-smoker Start:23-Oct-2016 Instruction Type:Provider Instructions for Treatment How to access health informa tion online Indication:Abnormal glucose tolerance test Start:02-Oct-2016 Instruction Type:Patient Education How to access health informa tion online - Detail Indication:Abnormal glucose tolerance test Start:02-Oct-2016 Instruction Type:Patient Education Patient Instructions Indication:Abnormal glucose tolerance test Start:02-Oct-2016 Instruction Type:Provider Instructions for Treatment How to access health informa tion online Indication:Non-smoker Start:29-May-2016 Instruction Type:Patient Education How to access health informa tion online - Detail Indication:Non-smoker Start:29-May-2016 Instruction Type:Patient Education Patient Instructions Indication:Non-smoker Start:29-May-2016 Instruction Type:Provider Instructions for Treatment Patient Instructions Indication:Abnormal glucose tolerance test Start:21-Feb-2016 Instruction Type:Provider Instructions for Treatment How to access health informa tion online Indication:Abnormal glucose tolerance test Start:21-Feb-2016 Instruction Type:Patient Education How to access health informa tion online - Detail Indication:Abnormal glucose tolerance test Start:21-Feb-2016 Instruction Type:Patient Education How to access health informa tion online Indication:Abnormal glucose tolerance test Start:20-Apr-2015 Instruction Type:Patient Education How to access health informa tion online - Detail Indication:Abnormal glucose tolerance test Start:20-Apr-2015 Instruction Type:Patient Education Patient Instructions Indication:Abnormal glucose tolerance test Start:20-Apr-2015 Instruction Type:Provider Instructions for Treatment How to access health informa tion online Indication:Anxiety Start:19-Dec-2014 Instruction Type:Patient Education How to access health informa tion online - Detail Indication:Anxiety Start:19-Dec-2014 Instruction Type:Patient Education Patient Instructions Indication:Anxiety Start:19-Dec-2014 Instruction Type:Provider Instructions for Treatment Patient Instructions Indication:Encounter for Medicare annual wellness exam Start:18-May-2014 Instruction Type:Provider Instructions for Treatment obesity counseling Indication:Hypertension, benign Start:18-May-2014 Instruction Type:Provider Instructions for Treatment Patient Instructions Indication:Hypertension, benign Start:01-Nov-2013 Instruction Type:Provider Instructions for Treatment Patient Instructions: stop a ltace adn start norvasc for bp Indication:Hypertension, benign Start:19-Apr-2013 Instruction Type:Provider Instructions for Treatment Patient Instructions Indication:Pain in joint involving lower leg Start:07-Dec-2012 Instruction Type:Provider Instructions for Treatment Patient Instructions Indication:Encounter for Medicare annual wellness exam Start:29-Apr-2012 Instruction Type:Provider Instructions for Treatment Patient Instructions Indication:Anxiety Start:16-Apr-2012 Instruction Type:Provider Instructions for Treatment [facility]; [facility] Work Phone: Instructions* Name Dates Details Patient Instructions Indication:Non-smoker Start:10-Mar-2023 Instruction Type:Provider Instructions for Treatment How to Access Health Informa tion Online using Patient Portal and [employer] Apps Indication:Non-smoker Start:10-Mar-2023 Instruction Type:Patient Education Patient Instructions Indication:BMI 30.0-30.9,adult Start:23-Oct-2022 Instruction Type:Provider Instructions for Treatment How to Access Health Informa tion Online using Patient Portal and [employer] Indication:BMI 30.0-30.9,adult Start:23-Oct-2022 Instruction Type:Patient Education Patient Instructions Indication:BMI 29.0-29.9,adult Start:05-Aug-2022 Instruction Type:Provider Instructions for Treatment How to Access Health Informa tion Online using Patient Portal and [employer] Indication:BMI 29.0-29.9,adult Start:05-Aug-2022 Instruction Type:Patient Education Patient Instructions Indication:Abnormal glucose tolerance test Start:07-Jun-2022 Instruction Type:Provider Instructions for Treatment How to Access Health Informa tion Online using Patient Portal and [employer] Indication:Abnormal glucose tolerance test Start:07-Jun-2022 Instruction Type:Patient Education Patient Instructions Indication:Abnormal glucose tolerance test Start:04-Feb-2022 Instruction Type:Provider Instructions for Treatment How to Access Health Informa tion Online using Patient Portal and [employer] Indication:Abnormal glucose tolerance test Start:04-Feb-2022 Instruction Type:Patient Education Patient Instructions Indication:BMI 29.0-29.9,adult Start:10-Sep-2021 Instruction Type:Provider Instructions for Treatment How to Access Health Informa tion Online using Patient Portal and [employer] Indication:BMI 29.0-29.9,adult Start:10-Sep-2021 Instruction Type:Patient Education Patient Instructions Indication:Abnormal glucose tolerance test Start:25-Apr-2021 Instruction Type:Provider Instructions for Treatment How to Access Health Informa tion Online using Patient Portal and [employer] Apps Indication:Abnormal glucose tolerance test Start:25-Apr-2021 Instruction Type:Patient Education Patient Instructions Indication:Non-smoker Start:13-Dec-2020 Instruction Type:Provider Instructions for Treatment How to Access Health Informa tion Online using Patient Portal and [employer] Indication:Non-smoker Start:13-Dec-2020 Instruction Type:Patient Education How to Access Health Informa tion Online using Patient Portal and [employer] Apps Indication:Non-smoker Start:09-Aug-2020 Instruction Type:Patient Education Patient Instructions Indication:Non-smoker Start:09-Aug-2020 Instruction Type:Provider Instructions for Treatment cardiovascular counseling Indication:CAD, multiple vessel Start:12-Jun-2020 Instruction Type:Provider Instructions for Treatment obesity counseling Indication:Abnormal glucose tolerance test Start:12-Jun-2020 Instruction Type:Provider Instructions for Treatment Patient Instructions Indication:Non-smoker Start:12-Jun-2020 Instruction Type:Provider Instructions for Treatment How to Access Health Informa tion Online using Patient Portal and [employer] Indication:Non-smoker Start:12-Jun-2020 Instruction Type:Patient Education How to access health informa tion online Indication:Abnormal glucose tolerance test Start:14-Apr-2020 Instruction Type:Patient Education How to access health informa tion online - Detail Indication:Abnormal glucose tolerance test Start:14-Apr-2020 Instruction Type:Patient Education Patient Instructions Indication:Abnormal glucose tolerance test Start:14-Apr-2020 Instruction Type:Provider Instructions for Treatment How to access health informa tion online Indication:Non-smoker Start:10-Apr-2020 Instruction Type:Patient Education How to access health informa tion online - Detail Indication:Non-smoker Start:10-Apr-2020 Instruction Type:Patient Education Patient Instructions Indication:Non-smoker Start:10-Apr-2020 Instruction Type:Provider Instructions for Treatment How to access health informa tion online Indication:Non-smoker Start:26-Nov-2019 Instruction Type:Patient Education How to access health informa tion online - Detail Indication:Non-smoker Start:26-Nov-2019 Instruction Type:Patient Education Patient Instructions Indication:Non-smoker Start:26-Nov-2019 Instruction Type:Provider Instructions for Treatment How to access health informa tion online Indication:Abnormal glucose tolerance test Start:19-Jul-2019 Instruction Type:Patient Education How to access health informa tion online - Detail Indication:Abnormal glucose tolerance test Start:19-Jul-2019 Instruction Type:Patient Education Patient Instructions Indication:Abnormal glucose tolerance test Start:19-Jul-2019 Instruction Type:Provider Instructions for Treatment How to access health informa tion online Indication:Non-smoker Start:09-Jun-2019 Instruction Type:Patient Education How to access health informa tion online - Detail Indication:Non-smoker Start:09-Jun-2019 Instruction Type:Patient Education Patient Instructions Indication:Non-smoker Start:09-Jun-2019 Instruction Type:Provider Instructions for Treatment How to access health informa tion online Indication:Hypertension, benign Start:22-Mar-2019 Instruction Type:Patient Education How to access health informa tion online - Detail Indication:Hypertension, benign Start:22-Mar-2019 Instruction Type:Patient Education Patient Instructions Indication:Hypertension, benign Start:22-Mar-2019 Instruction Type:Provider Instructions for Treatment How to access health informa tion online Indication:Abnormal glucose tolerance test Start:20-Nov-2018 Instruction Type:Patient Education How to access health informa tion online - Detail Indication:Abnormal glucose tolerance test Start:20-Nov-2018 Instruction Type:Patient Education Patient Instructions Indication:Abnormal glucose tolerance test Start:20-Nov-2018 Instruction Type:Provider Instructions for Treatment How to access health informa tion online Indication:BMI 29.0-29.9,adult Start:29-Jun-2018 Instruction Type:Patient Education How to access health informa tion online - Detail Indication:BMI 29.0-29.9,adult Start:29-Jun-2018 Instruction Type:Patient Education How to access health informa tion online - Detail Indication:BMI 29.0-29.9,adult Start:29-Jun-2018 Instruction Type:Patient Education Patient Instructions Indication:BMI 29.0-29.9,adult Start:29-Jun-2018 Instruction Type:Provider Instructions for Treatment cardiovascular counseling Indication:CAD, multiple vessel Start:05-Jun-2018 Instruction Type:Provider Instructions for Treatment How to access health informa tion online Indication:Non-smoker Start:05-Jun-2018 Instruction Type:Patient Education How to access health informa tion online - Detail Indication:Non-smoker Start:05-Jun-2018 Instruction Type:Patient Education Patient Instructions Indication:Non-smoker Start:05-Jun-2018 Instruction Type:Provider Instructions for Treatment How to access health informa tion online Indication:Abnormal glucose tolerance test Start:13-Feb-2018 Instruction Type:Patient Education How to access health informa tion online - Detail Indication:Abnormal glucose tolerance test Start:13-Feb-2018 Instruction Type:Patient Education Patient Instructions Indication:Abnormal glucose tolerance test Start:13-Feb-2018 Instruction Type:Provider Instructions for Treatment How to access health informa tion online Indication:Abnormal glucose tolerance test Start:13-Oct-2017 Instruction Type:Patient Education How to access health informa tion online - Detail Indication:Abnormal glucose tolerance test Start:13-Oct-2017 Instruction Type:Patient Education Patient Instructions Indication:Abnormal glucose tolerance test Start:13-Oct-2017 Instruction Type:Provider Instructions for Treatment How to access health informa tion online Indication:BMI 29.0-29.9,adult Start:21-Aug-2017 Instruction Type:Patient Education How to access health informa tion online - Detail Indication:BMI 29.0-29.9,adult Start:21-Aug-2017 Instruction Type:Patient Education Patient Instructions Indication:BMI 29.0-29.9,adult Start:21-Aug-2017 Instruction Type:Provider Instructions for Treatment How to access health informa tion online Indication:Abnormal glucose tolerance test Start:11-Jun-2017 Instruction Type:Patient Education How to access health informa tion online - Detail Indication:Abnormal glucose tolerance test Start:11-Jun-2017 Instruction Type:Patient Education Patient Instructions Indication:Abnormal glucose tolerance test Start:11-Jun-2017 Instruction Type:Provider Instructions for Treatment How to access health informa tion online Indication:BMI 29.0-29.9,adult Start:30-May-2017 Instruction Type:Patient Education How to access health informa tion online - Detail Indication:BMI 29.0-29.9,adult Start:30-May-2017 Instruction Type:Patient Education Patient Instructions Indication:BMI 29.0-29.9,adult Start:30-May-2017 Instruction Type:Provider Instructions for Treatment Patient Instructions Indication:BMI 29.0-29.9,adult Start:30-May-2017 Instruction Type:Provider Instructions for Treatment How to access health informa tion online Indication:BMI 27.0-27.9,adult Start:05-Feb-2017 Instruction Type:Patient Education How to access health informa tion online - Detail Indication:BMI 27.0-27.9,adult Start:05-Feb-2017 Instruction Type:Patient Education Patient Instructions Indication:BMI 27.0-27.9,adult Start:05-Feb-2017 Instruction Type:Provider Instructions for Treatment How to access health informa tion online Indication:Non-smoker Start:23-Oct-2016 Instruction Type:Patient Education How to access health informa tion online - Detail Indication:Non-smoker Start:23-Oct-2016 Instruction Type:Patient Education Patient Instructions Indication:Non-smoker Start:23-Oct-2016 Instruction Type:Provider Instructions for Treatment How to access health informa tion online Indication:Abnormal glucose tolerance test Start:02-Oct-2016 Instruction Type:Patient Education How to access health informa tion online - Detail Indication:Abnormal glucose tolerance test Start:02-Oct-2016 Instruction Type:Patient Education Patient Instructions Indication:Abnormal glucose tolerance test Start:02-Oct-2016 Instruction Type:Provider Instructions for Treatment How to access health informa tion online Indication:Non-smoker Start:29-May-2016 Instruction Type:Patient Education How to access health informa tion online - Detail Indication:Non-smoker Start:29-May-2016 Instruction Type:Patient Education Patient Instructions Indication:Non-smoker Start:29-May-2016 Instruction Type:Provider Instructions for Treatment Patient Instructions Indication:Abnormal glucose tolerance test Start:21-Feb-2016 Instruction Type:Provider Instructions for Treatment How to access health informa tion online Indication:Abnormal glucose tolerance test Start:21-Feb-2016 Instruction Type:Patient Education How to access health informa tion online - Detail Indication:Abnormal glucose tolerance test Start:21-Feb-2016 Instruction Type:Patient Education How to access health informa tion online Indication:Abnormal glucose tolerance test Start:20-Apr-2015 Instruction Type:Patient Education How to access health informa tion online - Detail Indication:Abnormal glucose tolerance test Start:20-Apr-2015 Instruction Type:Patient Education Patient Instructions Indication:Abnormal glucose tolerance test Start:20-Apr-2015 Instruction Type:Provider Instructions for Treatment How to access health informa tion online Indication:Anxiety Start:19-Dec-2014 Instruction Type:Patient Education How to access health informa tion online - Detail Indication:Anxiety Start:19-Dec-2014 Instruction Type:Patient Education Patient Instructions Indication:Anxiety Start:19-Dec-2014 Instruction Type:Provider Instructions for Treatment Patient Instructions Indication:Encounter for Medicare annual wellness exam Start:18-May-2014 Instruction Type:Provider Instructions for Treatment obesity counseling Indication:Hypertension, benign Start:18-May-2014 Instruction Type:Provider Instructions for Treatment Patient Instructions Indication:Hypertension, benign Start:01-Nov-2013 Instruction Type:Provider Instructions for Treatment Patient Instructions: stop a ltace adn start [facility] for bp Indication:Hypertension, benign Start:19-Apr-2013 Instruction Type:Provider Instructions for Treatment Patient Instructions Indication:Pain in joint involving lower leg Start:07-Dec-2012 Instruction Type:Provider Instructions for Treatment Patient Instructions Indication:Encounter for Medicare annual wellness exam Start:29-Apr-2012 Instruction Type:Provider Instructions for Treatment Patient Instructions Indication:Anxiety Start:16-Apr-2012 Instruction Type:Provider Instructions for Treatment [facility]; [facility] Work Phone: Instructions* Name Dates Details Patient Instructions Indication:Non-smoker Start:10-Mar-2023 Instruction Type:Provider Instructions for Treatment How to Access Health Informa tion Online using Patient Portal and [employer] Indication:Non-smoker Start:10-Mar-2023 Instruction Type:Patient Education Patient Instructions Indication:BMI 30.0-30.9,adult Start:23-Oct-2022 Instruction Type:Provider Instructions for Treatment How to Access Health Informa tion Online using Patient Portal and [employer] Apps Indication:BMI 30.0-30.9,adult Start:23-Oct-2022 Instruction Type:Patient Education Patient Instructions Indication:BMI 29.0-29.9,adult Start:05-Aug-2022 Instruction Type:Provider Instructions for Treatment How to Access Health Informa tion Online using Patient Portal and [employer] Indication:BMI 29.0-29.9,adult Start:05-Aug-2022 Instruction Type:Patient Education Patient Instructions Indication:Abnormal glucose tolerance test Start:07-Jun-2022 Instruction Type:Provider Instructions for Treatment How to Access Health Informa tion Online using Patient Portal and [employer] Apps Indication:Abnormal glucose tolerance test Start:07-Jun-2022 Instruction Type:Patient Education Patient Instructions Indication:Abnormal glucose tolerance test Start:04-Feb-2022 Instruction Type:Provider Instructions for Treatment How to Access Health Informa tion Online using Patient Portal and [employer] Apps Indication:Abnormal glucose tolerance test Start:04-Feb-2022 Instruction Type:Patient Education Patient Instructions Indication:BMI 29.0-29.9,adult Start:10-Sep-2021 Instruction Type:Provider Instructions for Treatment How to Access Health Informa tion Online using Patient Portal and [employer] Indication:BMI 29.0-29.9,adult Start:10-Sep-2021 Instruction Type:Patient Education Patient Instructions Indication:Abnormal glucose tolerance test Start:25-Apr-2021 Instruction Type:Provider Instructions for Treatment How to Access Health Informa tion Online using Patient Portal and [employer] Apps Indication:Abnormal glucose tolerance test Start:25-Apr-2021 Instruction Type:Patient Education Patient Instructions Indication:Non-smoker Start:13-Dec-2020 Instruction Type:Provider Instructions for Treatment How to Access Health Informa tion Online using Patient Portal and [employer] Indication:Non-smoker Start:13-Dec-2020 Instruction Type:Patient Education How to Access Health Informa tion Online using Patient Portal and [employer] Apps Indication:Non-smoker Start:09-Aug-2020 Instruction Type:Patient Education Patient Instructions Indication:Non-smoker Start:09-Aug-2020 Instruction Type:Provider Instructions for Treatment cardiovascular counseling Indication:CAD, multiple vessel Start:12-Jun-2020 Instruction Type:Provider Instructions for Treatment obesity counseling Indication:Abnormal glucose tolerance test Start:12-Jun-2020 Instruction Type:Provider Instructions for Treatment Patient Instructions Indication:Non-smoker Start:12-Jun-2020 Instruction Type:Provider Instructions for Treatment How to Access Health Informa tion Online using Patient Portal and [employer] Apps Indication:Non-smoker Start:12-Jun-2020 Instruction Type:Patient Education How to access health informa tion online Indication:Abnormal glucose tolerance test Start:14-Apr-2020 Instruction Type:Patient Education How to access health informa tion online - Detail Indication:Abnormal glucose tolerance test Start:14-Apr-2020 Instruction Type:Patient Education Patient Instructions Indication:Abnormal glucose tolerance test Start:14-Apr-2020 Instruction Type:Provider Instructions for Treatment How to access health informa tion online Indication:Non-smoker Start:10-Apr-2020 Instruction Type:Patient Education How to access health informa tion online - Detail Indication:Non-smoker Start:10-Apr-2020 Instruction Type:Patient Education Patient Instructions Indication:Non-smoker Start:10-Apr-2020 Instruction Type:Provider Instructions for Treatment How to access health informa tion online Indication:Non-smoker Start:26-Nov-2019 Instruction Type:Patient Education How to access health informa tion online - Detail Indication:Non-smoker Start:26-Nov-2019 Instruction Type:Patient Education Patient Instructions Indication:Non-smoker Start:26-Nov-2019 Instruction Type:Provider Instructions for Treatment How to access health informa tion online Indication:Abnormal glucose tolerance test Start:19-Jul-2019 Instruction Type:Patient Education How to access health informa tion online - Detail Indication:Abnormal glucose tolerance test Start:19-Jul-2019 Instruction Type:Patient Education Patient Instructions Indication:Abnormal glucose tolerance test Start:19-Jul-2019 Instruction Type:Provider Instructions for Treatment How to access health informa tion online Indication:Non-smoker Start:09-Jun-2019 Instruction Type:Patient Education How to access health informa tion online - Detail Indication:Non-smoker Start:09-Jun-2019 Instruction Type:Patient Education Patient Instructions Indication:Non-smoker Start:09-Jun-2019 Instruction Type:Provider Instructions for Treatment How to access health informa tion online Indication:Hypertension, benign Start:22-Mar-2019 Instruction Type:Patient Education How to access health informa tion online - Detail Indication:Hypertension, benign Start:22-Mar-2019 Instruction Type:Patient Education Patient Instructions Indication:Hypertension, benign Start:22-Mar-2019 Instruction Type:Provider Instructions for Treatment How to access health informa tion online Indication:Abnormal glucose tolerance test Start:20-Nov-2018 Instruction Type:Patient Education How to access health informa tion online - Detail Indication:Abnormal glucose tolerance test Start:20-Nov-2018 Instruction Type:Patient Education Patient Instructions Indication:Abnormal glucose tolerance test Start:20-Nov-2018 Instruction Type:Provider Instructions for Treatment How to access health informa tion online Indication:BMI 29.0-29.9,adult Start:29-Jun-2018 Instruction Type:Patient Education How to access health informa tion online - Detail Indication:BMI 29.0-29.9,adult Start:29-Jun-2018 Instruction Type:Patient Education How to access health informa tion online - Detail Indication:BMI 29.0-29.9,adult Start:29-Jun-2018 Instruction Type:Patient Education Patient Instructions Indication:BMI 29.0-29.9,adult Start:29-Jun-2018 Instruction Type:Provider Instructions for Treatment cardiovascular counseling Indication:CAD, multiple vessel Start:05-Jun-2018 Instruction Type:Provider Instructions for Treatment How to access health informa tion online Indication:Non-smoker Start:05-Jun-2018 Instruction Type:Patient Education How to access health informa tion online - Detail Indication:Non-smoker Start:05-Jun-2018 Instruction Type:Patient Education Patient Instructions Indication:Non-smoker Start:05-Jun-2018 Instruction Type:Provider Instructions for Treatment How to access health informa tion online Indication:Abnormal glucose tolerance test Start:13-Feb-2018 Instruction Type:Patient Education How to access health informa tion online - Detail Indication:Abnormal glucose tolerance test Start:13-Feb-2018 Instruction Type:Patient Education Patient Instructions Indication:Abnormal glucose tolerance test Start:13-Feb-2018 Instruction Type:Provider Instructions for Treatment How to access health informa tion online Indication:Abnormal glucose tolerance test Start:13-Oct-2017 Instruction Type:Patient Education How to access health informa tion online - Detail Indication:Abnormal glucose tolerance test Start:13-Oct-2017 Instruction Type:Patient Education Patient Instructions Indication:Abnormal glucose tolerance test Start:13-Oct-2017 Instruction Type:Provider Instructions for Treatment How to access health informa tion online Indication:BMI 29.0-29.9,adult Start:21-Aug-2017 Instruction Type:Patient Education How to access health informa tion online - Detail Indication:BMI 29.0-29.9,adult Start:21-Aug-2017 Instruction Type:Patient Education Patient Instructions Indication:BMI 29.0-29.9,adult Start:21-Aug-2017 Instruction Type:Provider Instructions for Treatment How to access health informa tion online Indication:Abnormal glucose tolerance test Start:11-Jun-2017 Instruction Type:Patient Education How to access health informa tion online - Detail Indication:Abnormal glucose tolerance test Start:11-Jun-2017 Instruction Type:Patient Education Patient Instructions Indication:Abnormal glucose tolerance test Start:11-Jun-2017 Instruction Type:Provider Instructions for Treatment How to access health informa tion online Indication:BMI 29.0-29.9,adult Start:30-May-2017 Instruction Type:Patient Education How to access health informa tion online - Detail Indication:BMI 29.0-29.9,adult Start:30-May-2017 Instruction Type:Patient Education Patient Instructions Indication:BMI 29.0-29.9,adult Start:30-May-2017 Instruction Type:Provider Instructions for Treatment Patient Instructions Indication:BMI 29.0-29.9,adult Start:30-May-2017 Instruction Type:Provider Instructions for Treatment How to access health informa tion online Indication:BMI 27.0-27.9,adult Start:05-Feb-2017 Instruction Type:Patient Education How to access health informa tion online - Detail Indication:BMI 27.0-27.9,adult Start:05-Feb-2017 Instruction Type:Patient Education Patient Instructions Indication:BMI 27.0-27.9,adult Start:05-Feb-2017 Instruction Type:Provider Instructions for Treatment How to access health informa tion online Indication:Non-smoker Start:23-Oct-2016 Instruction Type:Patient Education How to access health informa tion online - Detail Indication:Non-smoker Start:23-Oct-2016 Instruction Type:Patient Education Patient Instructions Indication:Non-smoker Start:23-Oct-2016 Instruction Type:Provider Instructions for Treatment How to access health informa tion online Indication:Abnormal glucose tolerance test Start:02-Oct-2016 Instruction Type:Patient Education How to access health informa tion online - Detail Indication:Abnormal glucose tolerance test Start:02-Oct-2016 Instruction Type:Patient Education Patient Instructions Indication:Abnormal glucose tolerance test Start:02-Oct-2016 Instruction Type:Provider Instructions for Treatment How to access health informa tion online Indication:Non-smoker Start:29-May-2016 Instruction Type:Patient Education How to access health informa tion online - Detail Indication:Non-smoker Start:29-May-2016 Instruction Type:Patient Education Patient Instructions Indication:Non-smoker Start:29-May-2016 Instruction Type:Provider Instructions for Treatment Patient Instructions Indication:Abnormal glucose tolerance test Start:21-Feb-2016 Instruction Type:Provider Instructions for Treatment How to access health informa tion online Indication:Abnormal glucose tolerance test Start:21-Feb-2016 Instruction Type:Patient Education How to access health informa tion online - Detail Indication:Abnormal glucose tolerance test Start:21-Feb-2016 Instruction Type:Patient Education How to access health informa tion online Indication:Abnormal glucose tolerance test Start:20-Apr-2015 Instruction Type:Patient Education How to access health informa tion online - Detail Indication:Abnormal glucose tolerance test Start:20-Apr-2015 Instruction Type:Patient Education Patient Instructions Indication:Abnormal glucose tolerance test Start:20-Apr-2015 Instruction Type:Provider Instructions for Treatment How to access health informa tion online Indication:Anxiety Start:19-Dec-2014 Instruction Type:Patient Education How to access health informa tion online - Detail Indication:Anxiety Start:19-Dec-2014 Instruction Type:Patient Education Patient Instructions Indication:Anxiety Start:19-Dec-2014 Instruction Type:Provider Instructions for Treatment Patient Instructions Indication:Encounter for Medicare annual wellness exam Start:18-May-2014 Instruction Type:Provider Instructions for Treatment obesity counseling Indication:Hypertension, benign Start:18-May-2014 Instruction Type:Provider Instructions for Treatment Patient Instructions Indication:Hypertension, benign Start:01-Nov-2013 Instruction Type:Provider Instructions for Treatment Patient Instructions: stop a ltace adn start norvasc for bp Indication:Hypertension, benign Start:19-Apr-2013 Instruction Type:Provider Instructions for Treatment Patient Instructions Indication:Pain in joint involving lower leg Start:07-Dec-2012 Instruction Type:Provider Instructions for Treatment Patient Instructions Indication:Encounter for Medicare annual wellness exam Start:29-Apr-2012 Instruction Type:Provider Instructions for Treatment Patient Instructions Indication:Anxiety Start:16-Apr-2012 Instruction Type:Provider Instructions for Treatment [facility]; [facility] Work Phone: Instructions* Name Dates Details Patient Instructions Indication:Non-smoker Start:10-Mar-2023 Instruction Type:Provider Instructions for Treatment How to Access Health Informa tion Online using Patient Portal and [employer] Indication:Non-smoker Start:10-Mar-2023 Instruction Type:Patient Education Patient Instructions Indication:BMI 30.0-30.9,adult Start:23-Oct-2022 Instruction Type:Provider Instructions for Treatment How to Access Health Informa tion Online using Patient Portal and [employer] Indication:BMI 30.0-30.9,adult Start:23-Oct-2022 Instruction Type:Patient Education Patient Instructions Indication:BMI 29.0-29.9,adult Start:05-Aug-2022 Instruction Type:Provider Instructions for Treatment How to Access Health Informa tion Online using Patient Portal and [employer] Indication:BMI 29.0-29.9,adult Start:05-Aug-2022 Instruction Type:Patient Education Patient Instructions Indication:Abnormal glucose tolerance test Start:07-Jun-2022 Instruction Type:Provider Instructions for Treatment How to Access Health Informa tion Online using Patient Portal and [employer] Apps Indication:Abnormal glucose tolerance test Start:07-Jun-2022 Instruction Type:Patient Education Patient Instructions Indication:Abnormal glucose tolerance test Start:04-Feb-2022 Instruction Type:Provider Instructions for Treatment How to Access Health Informa tion Online using Patient Portal and [employer] Apps Indication:Abnormal glucose tolerance test Start:04-Feb-2022 Instruction Type:Patient Education Patient Instructions Indication:BMI 29.0-29.9,adult Start:10-Sep-2021 Instruction Type:Provider Instructions for Treatment How to Access Health Informa tion Online using Patient Portal and [employer] Indication:BMI 29.0-29.9,adult Start:10-Sep-2021 Instruction Type:Patient Education Patient Instructions Indication:Abnormal glucose tolerance test Start:25-Apr-2021 Instruction Type:Provider Instructions for Treatment How to Access Health Informa tion Online using Patient Portal and [employer] Apps Indication:Abnormal glucose tolerance test Start:25-Apr-2021 Instruction Type:Patient Education Patient Instructions Indication:Non-smoker Start:13-Dec-2020 Instruction Type:Provider Instructions for Treatment How to Access Health Informa tion Online using Patient Portal and [employer] Indication:Non-smoker Start:13-Dec-2020 Instruction Type:Patient Education How to Access Health Informa tion Online using Patient Portal and [employer] Indication:Non-smoker Start:09-Aug-2020 Instruction Type:Patient Education Patient Instructions Indication:Non-smoker Start:09-Aug-2020 Instruction Type:Provider Instructions for Treatment cardiovascular counseling Indication:CAD, multiple vessel Start:12-Jun-2020 Instruction Type:Provider Instructions for Treatment obesity counseling Indication:Abnormal glucose tolerance test Start:12-Jun-2020 Instruction Type:Provider Instructions for Treatment Patient Instructions Indication:Non-smoker Start:12-Jun-2020 Instruction Type:Provider Instructions for Treatment How to Access Health Informa tion Online using Patient Portal and [employer] Indication:Non-smoker Start:12-Jun-2020 Instruction Type:Patient Education How to access health informa tion online Indication:Abnormal glucose tolerance test Start:14-Apr-2020 Instruction Type:Patient Education How to access health informa tion online - Detail Indication:Abnormal glucose tolerance test Start:14-Apr-2020 Instruction Type:Patient Education Patient Instructions Indication:Abnormal glucose tolerance test Start:14-Apr-2020 Instruction Type:Provider Instructions for Treatment How to access health informa tion online Indication:Non-smoker Start:10-Apr-2020 Instruction Type:Patient Education How to access health informa tion online - Detail Indication:Non-smoker Start:10-Apr-2020 Instruction Type:Patient Education Patient Instructions Indication:Non-smoker Start:10-Apr-2020 Instruction Type:Provider Instructions for Treatment How to access health informa tion online Indication:Non-smoker Start:26-Nov-2019 Instruction Type:Patient Education How to access health informa tion online - Detail Indication:Non-smoker Start:26-Nov-2019 Instruction Type:Patient Education Patient Instructions Indication:Non-smoker Start:26-Nov-2019 Instruction Type:Provider Instructions for Treatment How to access health informa tion online Indication:Abnormal glucose tolerance test Start:19-Jul-2019 Instruction Type:Patient Education How to access health informa tion online - Detail Indication:Abnormal glucose tolerance test Start:19-Jul-2019 Instruction Type:Patient Education Patient Instructions Indication:Abnormal glucose tolerance test Start:19-Jul-2019 Instruction Type:Provider Instructions for Treatment How to access health informa tion online Indication:Non-smoker Start:09-Jun-2019 Instruction Type:Patient Education How to access health informa tion online - Detail Indication:Non-smoker Start:09-Jun-2019 Instruction Type:Patient Education Patient Instructions Indication:Non-smoker Start:09-Jun-2019 Instruction Type:Provider Instructions for Treatment How to access health informa tion online Indication:Hypertension, benign Start:22-Mar-2019 Instruction Type:Patient Education How to access health informa tion online - Detail Indication:Hypertension, benign Start:22-Mar-2019 Instruction Type:Patient Education Patient Instructions Indication:Hypertension, benign Start:22-Mar-2019 Instruction Type:Provider Instructions for Treatment How to access health informa tion online Indication:Abnormal glucose tolerance test Start:20-Nov-2018 Instruction Type:Patient Education How to access health informa tion online - Detail Indication:Abnormal glucose tolerance test Start:20-Nov-2018 Instruction Type:Patient Education Patient Instructions Indication:Abnormal glucose tolerance test Start:20-Nov-2018 Instruction Type:Provider Instructions for Treatment How to access health informa tion online Indication:BMI 29.0-29.9,adult Start:29-Jun-2018 Instruction Type:Patient Education How to access health informa tion online - Detail Indication:BMI 29.0-29.9,adult Start:29-Jun-2018 Instruction Type:Patient Education How to access health informa tion online - Detail Indication:BMI 29.0-29.9,adult Start:29-Jun-2018 Instruction Type:Patient Education Patient Instructions Indication:BMI 29.0-29.9,adult Start:29-Jun-2018 Instruction Type:Provider Instructions for Treatment cardiovascular counseling Indication:CAD, multiple vessel Start:05-Jun-2018 Instruction Type:Provider Instructions for Treatment How to access health informa tion online Indication:Non-smoker Start:05-Jun-2018 Instruction Type:Patient Education How to access health informa tion online - Detail Indication:Non-smoker Start:05-Jun-2018 Instruction Type:Patient Education Patient Instructions Indication:Non-smoker Start:05-Jun-2018 Instruction Type:Provider Instructions for Treatment How to access health informa tion online Indication:Abnormal glucose tolerance test Start:13-Feb-2018 Instruction Type:Patient Education How to access health informa tion online - Detail Indication:Abnormal glucose tolerance test Start:13-Feb-2018 Instruction Type:Patient Education Patient Instructions Indication:Abnormal glucose tolerance test Start:13-Feb-2018 Instruction Type:Provider Instructions for Treatment How to access health informa tion online Indication:Abnormal glucose tolerance test Start:13-Oct-2017 Instruction Type:Patient Education How to access health informa tion online - Detail Indication:Abnormal glucose tolerance test Start:13-Oct-2017 Instruction Type:Patient Education Patient Instructions Indication:Abnormal glucose tolerance test Start:13-Oct-2017 Instruction Type:Provider Instructions for Treatment How to access health informa tion online Indication:BMI 29.0-29.9,adult Start:21-Aug-2017 Instruction Type:Patient Education How to access health informa tion online - Detail Indication:BMI 29.0-29.9,adult Start:21-Aug-2017 Instruction Type:Patient Education Patient Instructions Indication:BMI 29.0-29.9,adult Start:21-Aug-2017 Instruction Type:Provider Instructions for Treatment How to access health informa tion online Indication:Abnormal glucose tolerance test Start:11-Jun-2017 Instruction Type:Patient Education How to access health informa tion online - Detail Indication:Abnormal glucose tolerance test Start:11-Jun-2017 Instruction Type:Patient Education Patient Instructions Indication:Abnormal glucose tolerance test Start:11-Jun-2017 Instruction Type:Provider Instructions for Treatment How to access health informa tion online Indication:BMI 29.0-29.9,adult Start:30-May-2017 Instruction Type:Patient Education How to access health informa tion online - Detail Indication:BMI 29.0-29.9,adult Start:30-May-2017 Instruction Type:Patient Education Patient Instructions Indication:BMI 29.0-29.9,adult Start:30-May-2017 Instruction Type:Provider Instructions for Treatment Patient Instructions Indication:BMI 29.0-29.9,adult Start:30-May-2017 Instruction Type:Provider Instructions for Treatment How to access health informa tion online Indication:BMI 27.0-27.9,adult Start:05-Feb-2017 Instruction Type:Patient Education How to access health informa tion online - Detail Indication:BMI 27.0-27.9,adult Start:05-Feb-2017 Instruction Type:Patient Education Patient Instructions Indication:BMI 27.0-27.9,adult Start:05-Feb-2017 Instruction Type:Provider Instructions for Treatment How to access health informa tion online Indication:Non-smoker Start:23-Oct-2016 Instruction Type:Patient Education How to access health informa tion online - Detail Indication:Non-smoker Start:23-Oct-2016 Instruction Type:Patient Education Patient Instructions Indication:Non-smoker Start:23-Oct-2016 Instruction Type:Provider Instructions for Treatment How to access health informa tion online Indication:Abnormal glucose tolerance test Start:02-Oct-2016 Instruction Type:Patient Education How to access health informa tion online - Detail Indication:Abnormal glucose tolerance test Start:02-Oct-2016 Instruction Type:Patient Education Patient Instructions Indication:Abnormal glucose tolerance test Start:02-Oct-2016 Instruction Type:Provider Instructions for Treatment How to access health informa tion online Indication:Non-smoker Start:29-May-2016 Instruction Type:Patient Education How to access health informa tion online - Detail Indication:Non-smoker Start:29-May-2016 Instruction Type:Patient Education Patient Instructions Indication:Non-smoker Start:29-May-2016 Instruction Type:Provider Instructions for Treatment Patient Instructions Indication:Abnormal glucose tolerance test Start:21-Feb-2016 Instruction Type:Provider Instructions for Treatment How to access health informa tion online Indication:Abnormal glucose tolerance test Start:21-Feb-2016 Instruction Type:Patient Education How to access health informa tion online - Detail Indication:Abnormal glucose tolerance test Start:21-Feb-2016 Instruction Type:Patient Education How to access health informa tion online Indication:Abnormal glucose tolerance test Start:20-Apr-2015 Instruction Type:Patient Education How to access health informa tion online - Detail Indication:Abnormal glucose tolerance test Start:20-Apr-2015 Instruction Type:Patient Education Patient Instructions Indication:Abnormal glucose tolerance test Start:20-Apr-2015 Instruction Type:Provider Instructions for Treatment How to access health informa tion online Indication:Anxiety Start:19-Dec-2014 Instruction Type:Patient Education How to access health informa tion online - Detail Indication:Anxiety Start:19-Dec-2014 Instruction Type:Patient Education Patient Instructions Indication:Anxiety Start:19-Dec-2014 Instruction Type:Provider Instructions for Treatment Patient Instructions Indication:Encounter for Medicare annual wellness exam Start:18-May-2014 Instruction Type:Provider Instructions for Treatment obesity counseling Indication:Hypertension, benign Start:18-May-2014 Instruction Type:Provider Instructions for Treatment Patient Instructions Indication:Hypertension, benign Start:01-Nov-2013 Instruction Type:Provider Instructions for Treatment Patient Instructions: stop a ltace adn start norvasc for bp Indication:Hypertension, benign Start:19-Apr-2013 Instruction Type:Provider Instructions for Treatment Patient Instructions Indication:Pain in joint involving lower leg Start:07-Dec-2012 Instruction Type:Provider Instructions for Treatment Patient Instructions Indication:Encounter for Medicare annual wellness exam Start:29-Apr-2012 Instruction Type:Provider Instructions for Treatment Patient Instructions Indication:Anxiety Start:16-Apr-2012 Instruction Type:Provider Instructions for Treatment [facility]; [facility] Work Phone: Instructions* Name Dates Details Patient Instructions Indication:Non-smoker Start:10-Mar-2023 Instruction Type:Provider Instructions for Treatment How to Access Health Informa tion Online using Patient Portal and [employer] Apps Indication:Non-smoker Start:10-Mar-2023 Instruction Type:Patient Education Patient Instructions Indication:BMI 30.0-30.9,adult Start:23-Oct-2022 Instruction Type:Provider Instructions for Treatment How to Access Health Informa tion Online using Patient Portal and [employer] Apps Indication:BMI 30.0-30.9,adult Start:23-Oct-2022 Instruction Type:Patient Education Patient Instructions Indication:BMI 29.0-29.9,adult Start:05-Aug-2022 Instruction Type:Provider Instructions for Treatment How to Access Health Informa tion Online using Patient Portal and [employer] Apps Indication:BMI 29.0-29.9,adult Start:05-Aug-2022 Instruction Type:Patient Education Patient Instructions Indication:Abnormal glucose tolerance test Start:07-Jun-2022 Instruction Type:Provider Instructions for Treatment How to Access Health Informa tion Online using Patient Portal and [employer] Apps Indication:Abnormal glucose tolerance test Start:07-Jun-2022 Instruction Type:Patient Education Patient Instructions Indication:Abnormal glucose tolerance test Start:04-Feb-2022 Instruction Type:Provider Instructions for Treatment How to Access Health Informa tion Online using Patient Portal and [employer] Apps Indication:Abnormal glucose tolerance test Start:04-Feb-2022 Instruction Type:Patient Education Patient Instructions Indication:BMI 29.0-29.9,adult Start:10-Sep-2021 Instruction Type:Provider Instructions for Treatment How to Access Health Informa tion Online using Patient Portal and [employer] Apps Indication:BMI 29.0-29.9,adult Start:10-Sep-2021 Instruction Type:Patient Education Patient Instructions Indication:Abnormal glucose tolerance test Start:25-Apr-2021 Instruction Type:Provider Instructions for Treatment How to Access Health Informa tion Online using Patient Portal and [employer] Apps Indication:Abnormal glucose tolerance test Start:25-Apr-2021 Instruction Type:Patient Education Patient Instructions Indication:Non-smoker Start:13-Dec-2020 Instruction Type:Provider Instructions for Treatment How to Access Health Informa tion Online using Patient Portal and [employer] Apps Indication:Non-smoker Start:13-Dec-2020 Instruction Type:Patient Education How to Access Health Informa tion Online using Patient Portal and [employer] Apps Indication:Non-smoker Start:09-Aug-2020 Instruction Type:Patient Education Patient Instructions Indication:Non-smoker Start:09-Aug-2020 Instruction Type:Provider Instructions for Treatment cardiovascular counseling Indication:CAD, multiple vessel Start:12-Jun-2020 Instruction Type:Provider Instructions for Treatment obesity counseling Indication:Abnormal glucose tolerance test Start:12-Jun-2020 Instruction Type:Provider Instructions for Treatment Patient Instructions Indication:Non-smoker Start:12-Jun-2020 Instruction Type:Provider Instructions for Treatment How to Access Health Informa tion Online using Patient Portal and [employer] Apps Indication:Non-smoker Start:12-Jun-2020 Instruction Type:Patient Education How to access health informa tion online Indication:Abnormal glucose tolerance test Start:14-Apr-2020 Instruction Type:Patient Education How to access health informa tion online - Detail Indication:Abnormal glucose tolerance test Start:14-Apr-2020 Instruction Type:Patient Education Patient Instructions Indication:Abnormal glucose tolerance test Start:14-Apr-2020 Instruction Type:Provider Instructions for Treatment How to access health informa tion online Indication:Non-smoker Start:10-Apr-2020 Instruction Type:Patient Education How to access health informa tion online - Detail Indication:Non-smoker Start:10-Apr-2020 Instruction Type:Patient Education Patient Instructions Indication:Non-smoker Start:10-Apr-2020 Instruction Type:Provider Instructions for Treatment How to access health informa tion online Indication:Non-smoker Start:26-Nov-2019 Instruction Type:Patient Education How to access health informa tion online - Detail Indication:Non-smoker Start:26-Nov-2019 Instruction Type:Patient Education Patient Instructions Indication:Non-smoker Start:26-Nov-2019 Instruction Type:Provider Instructions for Treatment How to access health informa tion online Indication:Abnormal glucose tolerance test Start:19-Jul-2019 Instruction Type:Patient Education How to access health informa tion online - Detail Indication:Abnormal glucose tolerance test Start:19-Jul-2019 Instruction Type:Patient Education Patient Instructions Indication:Abnormal glucose tolerance test Start:19-Jul-2019 Instruction Type:Provider Instructions for Treatment How to access health informa tion online Indication:Non-smoker Start:09-Jun-2019 Instruction Type:Patient Education How to access health informa tion online - Detail Indication:Non-smoker Start:09-Jun-2019 Instruction Type:Patient Education Patient Instructions Indication:Non-smoker Start:09-Jun-2019 Instruction Type:Provider Instructions for Treatment How to access health informa tion online Indication:Hypertension, benign Start:22-Mar-2019 Instruction Type:Patient Education How to access health informa tion online - Detail Indication:Hypertension, benign Start:22-Mar-2019 Instruction Type:Patient Education Patient Instructions Indication:Hypertension, benign Start:22-Mar-2019 Instruction Type:Provider Instructions for Treatment How to access health informa tion online Indication:Abnormal glucose tolerance test Start:20-Nov-2018 Instruction Type:Patient Education How to access health informa tion online - Detail Indication:Abnormal glucose tolerance test Start:20-Nov-2018 Instruction Type:Patient Education Patient Instructions Indication:Abnormal glucose tolerance test Start:20-Nov-2018 Instruction Type:Provider Instructions for Treatment How to access health informa tion online Indication:BMI 29.0-29.9,adult Start:29-Jun-2018 Instruction Type:Patient Education How to access health informa tion online - Detail Indication:BMI 29.0-29.9,adult Start:29-Jun-2018 Instruction Type:Patient Education How to access health informa tion online - Detail Indication:BMI 29.0-29.9,adult Start:29-Jun-2018 Instruction Type:Patient Education Patient Instructions Indication:BMI 29.0-29.9,adult Start:29-Jun-2018 Instruction Type:Provider Instructions for Treatment cardiovascular counseling Indication:CAD, multiple vessel Start:05-Jun-2018 Instruction Type:Provider Instructions for Treatment How to access health informa tion online Indication:Non-smoker Start:05-Jun-2018 Instruction Type:Patient Education How to access health informa tion online - Detail Indication:Non-smoker Start:05-Jun-2018 Instruction Type:Patient Education Patient Instructions Indication:Non-smoker Start:05-Jun-2018 Instruction Type:Provider Instructions for Treatment How to access health informa tion online Indication:Abnormal glucose tolerance test Start:13-Feb-2018 Instruction Type:Patient Education How to access health informa tion online - Detail Indication:Abnormal glucose tolerance test Start:13-Feb-2018 Instruction Type:Patient Education Patient Instructions Indication:Abnormal glucose tolerance test Start:13-Feb-2018 Instruction Type:Provider Instructions for Treatment How to access health informa tion online Indication:Abnormal glucose tolerance test Start:13-Oct-2017 Instruction Type:Patient Education How to access health informa tion online - Detail Indication:Abnormal glucose tolerance test Start:13-Oct-2017 Instruction Type:Patient Education Patient Instructions Indication:Abnormal glucose tolerance test Start:13-Oct-2017 Instruction Type:Provider Instructions for Treatment How to access health informa tion online Indication:BMI 29.0-29.9,adult Start:21-Aug-2017 Instruction Type:Patient Education How to access health informa tion online - Detail Indication:BMI 29.0-29.9,adult Start:21-Aug-2017 Instruction Type:Patient Education Patient Instructions Indication:BMI 29.0-29.9,adult Start:21-Aug-2017 Instruction Type:Provider Instructions for Treatment How to access health informa tion online Indication:Abnormal glucose tolerance test Start:11-Jun-2017 Instruction Type:Patient Education How to access health informa tion online - Detail Indication:Abnormal glucose tolerance test Start:11-Jun-2017 Instruction Type:Patient Education Patient Instructions Indication:Abnormal glucose tolerance test Start:11-Jun-2017 Instruction Type:Provider Instructions for Treatment How to access health informa tion online Indication:BMI 29.0-29.9,adult Start:30-May-2017 Instruction Type:Patient Education How to access health informa tion online - Detail Indication:BMI 29.0-29.9,adult Start:30-May-2017 Instruction Type:Patient Education Patient Instructions Indication:BMI 29.0-29.9,adult Start:30-May-2017 Instruction Type:Provider Instructions for Treatment Patient Instructions Indication:BMI 29.0-29.9,adult Start:30-May-2017 Instruction Type:Provider Instructions for Treatment How to access health informa tion online Indication:BMI 27.0-27.9,adult Start:05-Feb-2017 Instruction Type:Patient Education How to access health informa tion online - Detail Indication:BMI 27.0-27.9,adult Start:05-Feb-2017 Instruction Type:Patient Education Patient Instructions Indication:BMI 27.0-27.9,adult Start:05-Feb-2017 Instruction Type:Provider Instructions for Treatment How to access health informa tion online Indication:Non-smoker Start:23-Oct-2016 Instruction Type:Patient Education How to access health informa tion online - Detail Indication:Non-smoker Start:23-Oct-2016 Instruction Type:Patient Education Patient Instructions Indication:Non-smoker Start:23-Oct-2016 Instruction Type:Provider Instructions for Treatment How to access health informa tion online Indication:Abnormal glucose tolerance test Start:02-Oct-2016 Instruction Type:Patient Education How to access health informa tion online - Detail Indication:Abnormal glucose tolerance test Start:02-Oct-2016 Instruction Type:Patient Education Patient Instructions Indication:Abnormal glucose tolerance test Start:02-Oct-2016 Instruction Type:Provider Instructions for Treatment How to access health informa tion online Indication:Non-smoker Start:29-May-2016 Instruction Type:Patient Education How to access health informa tion online - Detail Indication:Non-smoker Start:29-May-2016 Instruction Type:Patient Education Patient Instructions Indication:Non-smoker Start:29-May-2016 Instruction Type:Provider Instructions for Treatment Patient Instructions Indication:Abnormal glucose tolerance test Start:21-Feb-2016 Instruction Type:Provider Instructions for Treatment How to access health informa tion online Indication:Abnormal glucose tolerance test Start:21-Feb-2016 Instruction Type:Patient Education How to access health informa tion online - Detail Indication:Abnormal glucose tolerance test Start:21-Feb-2016 Instruction Type:Patient Education How to access health informa tion online Indication:Abnormal glucose tolerance test Start:20-Apr-2015 Instruction Type:Patient Education How to access health informa tion online - Detail Indication:Abnormal glucose tolerance test Start:20-Apr-2015 Instruction Type:Patient Education Patient Instructions Indication:Abnormal glucose tolerance test Start:20-Apr-2015 Instruction Type:Provider Instructions for Treatment How to access health informa tion online Indication:Anxiety Start:19-Dec-2014 Instruction Type:Patient Education How to access health informa tion online - Detail Indication:Anxiety Start:19-Dec-2014 Instruction Type:Patient Education Patient Instructions Indication:Anxiety Start:19-Dec-2014 Instruction Type:Provider Instructions for Treatment Patient Instructions Indication:Encounter for Medicare annual wellness exam Start:18-May-2014 Instruction Type:Provider Instructions for Treatment obesity counseling Indication:Hypertension, benign Start:18-May-2014 Instruction Type:Provider Instructions for Treatment Patient Instructions Indication:Hypertension, benign Start:01-Nov-2013 Instruction Type:Provider Instructions for Treatment Patient Instructions: stop a ltace adn start norvas for bp Indication:Hypertension, benign Start:19-Apr-2013 Instruction Type:Provider Instructions for Treatment Patient Instructions Indication:Pain in joint involving lower leg Start:07-Dec-2012 Instruction Type:Provider Instructions for Treatment Patient Instructions Indication:Encounter for Medicare annual wellness exam Start:29-Apr-2012 Instruction Type:Provider Instructions for Treatment Patient Instructions Indication:Anxiety Start:16-Apr-2012 Instruction Type:Provider Instructions for Treatment [facility]; [facility] Work Phone: Instructions* Name Dates Details Patient Instructions Indication:Non-smoker Start:10-Mar-2023 Instruction Type:Provider Instructions for Treatment How to Access Health Informa tion Online using Patient Portal and [employer] Apps Indication:Non-smoker Start:10-Mar-2023 Instruction Type:Patient Education Patient Instructions Indication:BMI 30.0-30.9,adult Start:23-Oct-2022 Instruction Type:Provider Instructions for Treatment How to Access Health Informa tion Online using Patient Portal and [employer] Apps Indication:BMI 30.0-30.9,adult Start:23-Oct-2022 Instruction Type:Patient Education Patient Instructions Indication:BMI 29.0-29.9,adult Start:05-Aug-2022 Instruction Type:Provider Instructions for Treatment How to Access Health Informa tion Online using Patient Portal and [employer] Indication:BMI 29.0-29.9,adult Start:05-Aug-2022 Instruction Type:Patient Education Patient Instructions Indication:Abnormal glucose tolerance test Start:07-Jun-2022 Instruction Type:Provider Instructions for Treatment How to Access Health Informa tion Online using Patient Portal and [employer] Indication:Abnormal glucose tolerance test Start:07-Jun-2022 Instruction Type:Patient Education Patient Instructions Indication:Abnormal glucose tolerance test Start:04-Feb-2022 Instruction Type:Provider Instructions for Treatment How to Access Health Informa tion Online using Patient Portal and [employer] Indication:Abnormal glucose tolerance test Start:04-Feb-2022 Instruction Type:Patient Education Patient Instructions Indication:BMI 29.0-29.9,adult Start:10-Sep-2021 Instruction Type:Provider Instructions for Treatment How to Access Health Informa tion Online using Patient Portal and [employer]rd [employer] Apps Indication:BMI 29.0-29.9,adult Start:10-Sep-2021 Instruction Type:Patient Education Patient Instructions Indication:Abnormal glucose tolerance test Start:25-Apr-2021 Instruction Type:Provider Instructions for Treatment How to Access Health Informa tion Online using Patient Portal and [employer]rd [employer] Apps Indication:Abnormal glucose tolerance test Start:25-Apr-2021 Instruction Type:Patient Education Patient Instructions Indication:Non-smoker Start:13-Dec-2020 Instruction Type:Provider Instructions for Treatment How to Access Health Informa tion Online using Patient Portal and [employer]rd [employer] Apps Indication:Non-smoker Start:13-Dec-2020 Instruction Type:Patient Education How to Access Health Informa tion Online using Patient Portal and [employer] Apps Indication:Non-smoker Start:09-Aug-2020 Instruction Type:Patient Education Patient Instructions Indication:Non-smoker Start:09-Aug-2020 Instruction Type:Provider Instructions for Treatment cardiovascular counseling Indication:CAD, multiple vessel Start:12-Jun-2020 Instruction Type:Provider Instructions for Treatment obesity counseling Indication:Abnormal glucose tolerance test Start:12-Jun-2020 Instruction Type:Provider Instructions for Treatment Patient Instructions Indication:Non-smoker Start:12-Jun-2020 Instruction Type:Provider Instructions for Treatment How to Access Health Informa tion Online using Patient Portal and [employer] Apps Indication:Non-smoker Start:12-Jun-2020 Instruction Type:Patient Education How to access health informa tion online Indication:Abnormal glucose tolerance test Start:14-Apr-2020 Instruction Type:Patient Education How to access health informa tion online - Detail Indication:Abnormal glucose tolerance test Start:14-Apr-2020 Instruction Type:Patient Education Patient Instructions Indication:Abnormal glucose tolerance test Start:14-Apr-2020 Instruction Type:Provider Instructions for Treatment How to access health informa tion online Indication:Non-smoker Start:10-Apr-2020 Instruction Type:Patient Education How to access health informa tion online - Detail Indication:Non-smoker Start:10-Apr-2020 Instruction Type:Patient Education Patient Instructions Indication:Non-smoker Start:10-Apr-2020 Instruction Type:Provider Instructions for Treatment How to access health informa tion online Indication:Non-smoker Start:26-Nov-2019 Instruction Type:Patient Education How to access health informa tion online - Detail Indication:Non-smoker Start:26-Nov-2019 Instruction Type:Patient Education Patient Instructions Indication:Non-smoker Start:26-Nov-2019 Instruction Type:Provider Instructions for Treatment How to access health informa tion online Indication:Abnormal glucose tolerance test Start:19-Jul-2019 Instruction Type:Patient Education How to access health informa tion online - Detail Indication:Abnormal glucose tolerance test Start:19-Jul-2019 Instruction Type:Patient Education Patient Instructions Indication:Abnormal glucose tolerance test Start:19-Jul-2019 Instruction Type:Provider Instructions for Treatment How to access health informa tion online Indication:Non-smoker Start:09-Jun-2019 Instruction Type:Patient Education How to access health informa tion online - Detail Indication:Non-smoker Start:09-Jun-2019 Instruction Type:Patient Education Patient Instructions Indication:Non-smoker Start:09-Jun-2019 Instruction Type:Provider Instructions for Treatment How to access health informa tion online Indication:Hypertension, benign Start:22-Mar-2019 Instruction Type:Patient Education How to access health informa tion online - Detail Indication:Hypertension, benign Start:22-Mar-2019 Instruction Type:Patient Education Patient Instructions Indication:Hypertension, benign Start:22-Mar-2019 Instruction Type:Provider Instructions for Treatment How to access health informa tion online Indication:Abnormal glucose tolerance test Start:20-Nov-2018 Instruction Type:Patient Education How to access health informa tion online - Detail Indication:Abnormal glucose tolerance test Start:20-Nov-2018 Instruction Type:Patient Education Patient Instructions Indication:Abnormal glucose tolerance test Start:20-Nov-2018 Instruction Type:Provider Instructions for Treatment How to access health informa tion online Indication:BMI 29.0-29.9,adult Start:29-Jun-2018 Instruction Type:Patient Education How to access health informa tion online - Detail Indication:BMI 29.0-29.9,adult Start:29-Jun-2018 Instruction Type:Patient Education How to access health informa tion online - Detail Indication:BMI 29.0-29.9,adult Start:29-Jun-2018 Instruction Type:Patient Education Patient Instructions Indication:BMI 29.0-29.9,adult Start:29-Jun-2018 Instruction Type:Provider Instructions for Treatment cardiovascular counseling Indication:CAD, multiple vessel Start:05-Jun-2018 Instruction Type:Provider Instructions for Treatment How to access health informa tion online Indication:Non-smoker Start:05-Jun-2018 Instruction Type:Patient Education How to access health informa tion online - Detail Indication:Non-smoker Start:05-Jun-2018 Instruction Type:Patient Education Patient Instructions Indication:Non-smoker Start:05-Jun-2018 Instruction Type:Provider Instructions for Treatment How to access health informa tion online Indication:Abnormal glucose tolerance test Start:13-Feb-2018 Instruction Type:Patient Education How to access health informa tion online - Detail Indication:Abnormal glucose tolerance test Start:13-Feb-2018 Instruction Type:Patient Education Patient Instructions Indication:Abnormal glucose tolerance test Start:13-Feb-2018 Instruction Type:Provider Instructions for Treatment How to access health informa tion online Indication:Abnormal glucose tolerance test Start:13-Oct-2017 Instruction Type:Patient Education How to access health informa tion online - Detail Indication:Abnormal glucose tolerance test Start:13-Oct-2017 Instruction Type:Patient Education Patient Instructions Indication:Abnormal glucose tolerance test Start:13-Oct-2017 Instruction Type:Provider Instructions for Treatment How to access health informa tion online Indication:BMI 29.0-29.9,adult Start:21-Aug-2017 Instruction Type:Patient Education How to access health informa tion online - Detail Indication:BMI 29.0-29.9,adult Start:21-Aug-2017 Instruction Type:Patient Education Patient Instructions Indication:BMI 29.0-29.9,adult Start:21-Aug-2017 Instruction Type:Provider Instructions for Treatment How to access health informa tion online Indication:Abnormal glucose tolerance test Start:11-Jun-2017 Instruction Type:Patient Education How to access health informa tion online - Detail Indication:Abnormal glucose tolerance test Start:11-Jun-2017 Instruction Type:Patient Education Patient Instructions Indication:Abnormal glucose tolerance test Start:11-Jun-2017 Instruction Type:Provider Instructions for Treatment How to access health informa tion online Indication:BMI 29.0-29.9,adult Start:30-May-2017 Instruction Type:Patient Education How to access health informa tion online - Detail Indication:BMI 29.0-29.9,adult Start:30-May-2017 Instruction Type:Patient Education Patient Instructions Indication:BMI 29.0-29.9,adult Start:30-May-2017 Instruction Type:Provider Instructions for Treatment Patient Instructions Indication:BMI 29.0-29.9,adult Start:30-May-2017 Instruction Type:Provider Instructions for Treatment How to access health informa tion online Indication:BMI 27.0-27.9,adult Start:05-Feb-2017 Instruction Type:Patient Education How to access health informa tion online - Detail Indication:BMI 27.0-27.9,adult Start:05-Feb-2017 Instruction Type:Patient Education Patient Instructions Indication:BMI 27.0-27.9,adult Start:05-Feb-2017 Instruction Type:Provider Instructions for Treatment How to access health informa tion online Indication:Non-smoker Start:23-Oct-2016 Instruction Type:Patient Education How to access health informa tion online - Detail Indication:Non-smoker Start:23-Oct-2016 Instruction Type:Patient Education Patient Instructions Indication:Non-smoker Start:23-Oct-2016 Instruction Type:Provider Instructions for Treatment How to access health informa tion online Indication:Abnormal glucose tolerance test Start:02-Oct-2016 Instruction Type:Patient Education How to access health informa tion online - Detail Indication:Abnormal glucose tolerance test Start:02-Oct-2016 Instruction Type:Patient Education Patient Instructions Indication:Abnormal glucose tolerance test Start:02-Oct-2016 Instruction Type:Provider Instructions for Treatment How to access health informa tion online Indication:Non-smoker Start:29-May-2016 Instruction Type:Patient Education How to access health informa tion online - Detail Indication:Non-smoker Start:29-May-2016 Instruction Type:Patient Education Patient Instructions Indication:Non-smoker Start:29-May-2016 Instruction Type:Provider Instructions for Treatment Patient Instructions Indication:Abnormal glucose tolerance test Start:21-Feb-2016 Instruction Type:Provider Instructions for Treatment How to access health informa tion online Indication:Abnormal glucose tolerance test Start:21-Feb-2016 Instruction Type:Patient Education How to access health informa tion online - Detail Indication:Abnormal glucose tolerance test Start:21-Feb-2016 Instruction Type:Patient Education How to access health informa tion online Indication:Abnormal glucose tolerance test Start:20-Apr-2015 Instruction Type:Patient Education How to access health informa tion online - Detail Indication:Abnormal glucose tolerance test Start:20-Apr-2015 Instruction Type:Patient Education Patient Instructions Indication:Abnormal glucose tolerance test Start:20-Apr-2015 Instruction Type:Provider Instructions for Treatment How to access health informa tion online Indication:Anxiety Start:19-Dec-2014 Instruction Type:Patient Education How to access health informa tion online - Detail Indication:Anxiety Start:19-Dec-2014 Instruction Type:Patient Education Patient Instructions Indication:Anxiety Start:19-Dec-2014 Instruction Type:Provider Instructions for Treatment Patient Instructions Indication:Encounter for Medicare annual wellness exam Start:18-May-2014 Instruction Type:Provider Instructions for Treatment obesity counseling Indication:Hypertension, benign Start:18-May-2014 Instruction Type:Provider Instructions for Treatment Patient Instructions Indication:Hypertension, benign Start:01-Nov-2013 Instruction Type:Provider Instructions for Treatment Patient Instructions: stop a ltace adn start [facility] for bp Indication:Hypertension, benign Start:19-Apr-2013 Instruction Type:Provider Instructions for Treatment Patient Instructions Indication:Pain in joint involving lower leg Start:07-Dec-2012 Instruction Type:Provider Instructions for Treatment Patient Instructions Indication:Encounter for Medicare annual wellness exam Start:29-Apr-2012 Instruction Type:Provider Instructions for Treatment Patient Instructions Indication:Anxiety Start:16-Apr-2012 Instruction Type:Provider Instructions for Treatment [facility]; [facility] Work Phone: Instructions* Name Dates Details Patient Instructions Indication:BMI 30.0-30.9,adult Start:02-Apr-2023 Instruction Type:Provider Instructions for Treatment How to Access Health Informa tion Online using Patient Portal and [employer] Apps Indication:BMI 30.0-30.9,adult Start:02-Apr-2023 Instruction Type:Patient Education Patient Instructions Indication:Non-smoker Start:10-Mar-2023 Instruction Type:Provider Instructions for Treatment How to Access Health Informa tion Online using Patient Portal and [employer] Apps Indication:Non-smoker Start:10-Mar-2023 Instruction Type:Patient Education Patient Instructions Indication:BMI 30.0-30.9,adult Start:23-Oct-2022 Instruction Type:Provider Instructions for Treatment How to Access Health Informa tion Online using Patient Portal and [employer] Indication:BMI 30.0-30.9,adult Start:23-Oct-2022 Instruction Type:Patient Education Patient Instructions Indication:BMI 29.0-29.9,adult Start:05-Aug-2022 Instruction Type:Provider Instructions for Treatment How to Access Health Informa tion Online using Patient Portal and [employer] Apps Indication:BMI 29.0-29.9,adult Start:05-Aug-2022 Instruction Type:Patient Education Patient Instructions Indication:Abnormal glucose tolerance test Start:07-Jun-2022 Instruction Type:Provider Instructions for Treatment How to Access Health Informa tion Online using Patient Portal and [employer] Apps Indication:Abnormal glucose tolerance test Start:07-Jun-2022 Instruction Type:Patient Education Patient Instructions Indication:Abnormal glucose tolerance test Start:04-Feb-2022 Instruction Type:Provider Instructions for Treatment How to Access Health Informa tion Online using Patient Portal and [employer] Apps Indication:Abnormal glucose tolerance test Start:04-Feb-2022 Instruction Type:Patient Education Patient Instructions Indication:BMI 29.0-29.9,adult Start:10-Sep-2021 Instruction Type:Provider Instructions for Treatment How to Access Health Informa tion Online using Patient Portal and [employer] Indication:BMI 29.0-29.9,adult Start:10-Sep-2021 Instruction Type:Patient Education Patient Instructions Indication:Abnormal glucose tolerance test Start:25-Apr-2021 Instruction Type:Provider Instructions for Treatment How to Access Health Informa tion Online using Patient Portal and [employer] Apps Indication:Abnormal glucose tolerance test Start:25-Apr-2021 Instruction Type:Patient Education Patient Instructions Indication:Non-smoker Start:13-Dec-2020 Instruction Type:Provider Instructions for Treatment How to Access Health Informa tion Online using Patient Portal and [employer] Indication:Non-smoker Start:13-Dec-2020 Instruction Type:Patient Education How to Access Health Informa tion Online using Patient Portal and [employer] Apps Indication:Non-smoker Start:09-Aug-2020 Instruction Type:Patient Education Patient Instructions Indication:Non-smoker Start:09-Aug-2020 Instruction Type:Provider Instructions for Treatment cardiovascular counseling Indication:CAD, multiple vessel Start:12-Jun-2020 Instruction Type:Provider Instructions for Treatment obesity counseling Indication:Abnormal glucose tolerance test Start:12-Jun-2020 Instruction Type:Provider Instructions for Treatment Patient Instructions Indication:Non-smoker Start:12-Jun-2020 Instruction Type:Provider Instructions for Treatment How to Access Health Informa tion Online using Patient Portal and [employer] Apps Indication:Non-smoker Start:12-Jun-2020 Instruction Type:Patient Education How to access health informa tion online Indication:Abnormal glucose tolerance test Start:14-Apr-2020 Instruction Type:Patient Education How to access health informa tion online - Detail Indication:Abnormal glucose tolerance test Start:14-Apr-2020 Instruction Type:Patient Education Patient Instructions Indication:Abnormal glucose tolerance test Start:14-Apr-2020 Instruction Type:Provider Instructions for Treatment How to access health informa tion online Indication:Non-smoker Start:10-Apr-2020 Instruction Type:Patient Education How to access health informa tion online - Detail Indication:Non-smoker Start:10-Apr-2020 Instruction Type:Patient Education Patient Instructions Indication:Non-smoker Start:10-Apr-2020 Instruction Type:Provider Instructions for Treatment How to access health informa tion online Indication:Non-smoker Start:26-Nov-2019 Instruction Type:Patient Education How to access health informa tion online - Detail Indication:Non-smoker Start:26-Nov-2019 Instruction Type:Patient Education Patient Instructions Indication:Non-smoker Start:26-Nov-2019 Instruction Type:Provider Instructions for Treatment How to access health informa tion online Indication:Abnormal glucose tolerance test Start:19-Jul-2019 Instruction Type:Patient Education How to access health informa tion online - Detail Indication:Abnormal glucose tolerance test Start:19-Jul-2019 Instruction Type:Patient Education Patient Instructions Indication:Abnormal glucose tolerance test Start:19-Jul-2019 Instruction Type:Provider Instructions for Treatment How to access health informa tion online Indication:Non-smoker Start:09-Jun-2019 Instruction Type:Patient Education How to access health informa tion online - Detail Indication:Non-smoker Start:09-Jun-2019 Instruction Type:Patient Education Patient Instructions Indication:Non-smoker Start:09-Jun-2019 Instruction Type:Provider Instructions for Treatment How to access health informa tion online Indication:Hypertension, benign Start:22-Mar-2019 Instruction Type:Patient Education How to access health informa tion online - Detail Indication:Hypertension, benign Start:22-Mar-2019 Instruction Type:Patient Education Patient Instructions Indication:Hypertension, benign Start:22-Mar-2019 Instruction Type:Provider Instructions for Treatment How to access health informa tion online Indication:Abnormal glucose tolerance test Start:20-Nov-2018 Instruction Type:Patient Education How to access health informa tion online - Detail Indication:Abnormal glucose tolerance test Start:20-Nov-2018 Instruction Type:Patient Education Patient Instructions Indication:Abnormal glucose tolerance test Start:20-Nov-2018 Instruction Type:Provider Instructions for Treatment How to access health informa tion online Indication:BMI 29.0-29.9,adult Start:29-Jun-2018 Instruction Type:Patient Education How to access health informa tion online - Detail Indication:BMI 29.0-29.9,adult Start:29-Jun-2018 Instruction Type:Patient Education How to access health informa tion online - Detail Indication:BMI 29.0-29.9,adult Start:29-Jun-2018 Instruction Type:Patient Education Patient Instructions Indication:BMI 29.0-29.9,adult Start:29-Jun-2018 Instruction Type:Provider Instructions for Treatment cardiovascular counseling Indication:CAD, multiple vessel Start:05-Jun-2018 Instruction Type:Provider Instructions for Treatment How to access health informa tion online Indication:Non-smoker Start:05-Jun-2018 Instruction Type:Patient Education How to access health informa tion online - Detail Indication:Non-smoker Start:05-Jun-2018 Instruction Type:Patient Education Patient Instructions Indication:Non-smoker Start:05-Jun-2018 Instruction Type:Provider Instructions for Treatment How to access health informa tion online Indication:Abnormal glucose tolerance test Start:13-Feb-2018 Instruction Type:Patient Education How to access health informa tion online - Detail Indication:Abnormal glucose tolerance test Start:13-Feb-2018 Instruction Type:Patient Education Patient Instructions Indication:Abnormal glucose tolerance test Start:13-Feb-2018 Instruction Type:Provider Instructions for Treatment How to access health informa tion online Indication:Abnormal glucose tolerance test Start:13-Oct-2017 Instruction Type:Patient Education How to access health informa tion online - Detail Indication:Abnormal glucose tolerance test Start:13-Oct-2017 Instruction Type:Patient Education Patient Instructions Indication:Abnormal glucose tolerance test Start:13-Oct-2017 Instruction Type:Provider Instructions for Treatment How to access health informa tion online Indication:BMI 29.0-29.9,adult Start:21-Aug-2017 Instruction Type:Patient Education How to access health informa tion online - Detail Indication:BMI 29.0-29.9,adult Start:21-Aug-2017 Instruction Type:Patient Education Patient Instructions Indication:BMI 29.0-29.9,adult Start:21-Aug-2017 Instruction Type:Provider Instructions for Treatment How to access health informa tion online Indication:Abnormal glucose tolerance test Start:11-Jun-2017 Instruction Type:Patient Education How to access health informa tion online - Detail Indication:Abnormal glucose tolerance test Start:11-Jun-2017 Instruction Type:Patient Education Patient Instructions Indication:Abnormal glucose tolerance test Start:11-Jun-2017 Instruction Type:Provider Instructions for Treatment How to access health informa tion online Indication:BMI 29.0-29.9,adult Start:30-May-2017 Instruction Type:Patient Education How to access health informa tion online - Detail Indication:BMI 29.0-29.9,adult Start:30-May-2017 Instruction Type:Patient Education Patient Instructions Indication:BMI 29.0-29.9,adult Start:30-May-2017 Instruction Type:Provider Instructions for Treatment Patient Instructions Indication:BMI 29.0-29.9,adult Start:30-May-2017 Instruction Type:Provider Instructions for Treatment How to access health informa tion online Indication:BMI 27.0-27.9,adult Start:05-Feb-2017 Instruction Type:Patient Education How to access health informa tion online - Detail Indication:BMI 27.0-27.9,adult Start:05-Feb-2017 Instruction Type:Patient Education Patient Instructions Indication:BMI 27.0-27.9,adult Start:05-Feb-2017 Instruction Type:Provider Instructions for Treatment How to access health informa tion online Indication:Non-smoker Start:23-Oct-2016 Instruction Type:Patient Education How to access health informa tion online - Detail Indication:Non-smoker Start:23-Oct-2016 Instruction Type:Patient Education Patient Instructions Indication:Non-smoker Start:23-Oct-2016 Instruction Type:Provider Instructions for Treatment How to access health informa tion online Indication:Abnormal glucose tolerance test Start:02-Oct-2016 Instruction Type:Patient Education How to access health informa tion online - Detail Indication:Abnormal glucose tolerance test Start:02-Oct-2016 Instruction Type:Patient Education Patient Instructions Indication:Abnormal glucose tolerance test Start:02-Oct-2016 Instruction Type:Provider Instructions for Treatment How to access health informa tion online Indication:Non-smoker Start:29-May-2016 Instruction Type:Patient Education How to access health informa tion online - Detail Indication:Non-smoker Start:29-May-2016 Instruction Type:Patient Education Patient Instructions Indication:Non-smoker Start:29-May-2016 Instruction Type:Provider Instructions for Treatment Patient Instructions Indication:Abnormal glucose tolerance test Start:21-Feb-2016 Instruction Type:Provider Instructions for Treatment How to access health informa tion online Indication:Abnormal glucose tolerance test Start:21-Feb-2016 Instruction Type:Patient Education How to access health informa tion online - Detail Indication:Abnormal glucose tolerance test Start:21-Feb-2016 Instruction Type:Patient Education How to access health informa tion online Indication:Abnormal glucose tolerance test Start:20-Apr-2015 Instruction Type:Patient Education How to access health informa tion online - Detail Indication:Abnormal glucose tolerance test Start:20-Apr-2015 Instruction Type:Patient Education Patient Instructions Indication:Abnormal glucose tolerance test Start:20-Apr-2015 Instruction Type:Provider Instructions for Treatment How to access health informa tion online Indication:Anxiety Start:19-Dec-2014 Instruction Type:Patient Education How to access health informa tion online - Detail Indication:Anxiety Start:19-Dec-2014 Instruction Type:Patient Education Patient Instructions Indication:Anxiety Start:19-Dec-2014 Instruction Type:Provider Instructions for Treatment Patient Instructions Indication:Encounter for Medicare annual wellness exam Start:18-May-2014 Instruction Type:Provider Instructions for Treatment obesity counseling Indication:Hypertension, benign Start:18-May-2014 Instruction Type:Provider Instructions for Treatment Patient Instructions Indication:Hypertension, benign Start:01-Nov-2013 Instruction Type:Provider Instructions for Treatment Patient Instructions: stop a ltace adn start [facility] for bp Indication:Hypertension, benign Start:19-Apr-2013 Instruction Type:Provider Instructions for Treatment Patient Instructions Indication:Pain in joint involving lower leg Start:07-Dec-2012 Instruction Type:Provider Instructions for Treatment Patient Instructions Indication:Encounter for Medicare annual wellness exam Start:29-Apr-2012 Instruction Type:Provider Instructions for Treatment Patient Instructions Indication:Anxiety Start:16-Apr-2012 Instruction Type:Provider Instructions for Treatment [facility] Work Phone: Instructions* Name Dates Details Patient Instructions Indication:BMI 30.0-30.9,adult Start:02-Apr-2023 Instruction Type:Provider Instructions for Treatment How to Access Health Informa tion Online using Patient Portal and [employer] Apps Indication:BMI 30.0-30.9,adult Start:02-Apr-2023 Instruction Type:Patient Education Patient Instructions Indication:Non-smoker Start:10-Mar-2023 Instruction Type:Provider Instructions for Treatment How to Access Health Informa tion Online using Patient Portal and [employer]rd [employer] Apps Indication:Non-smoker Start:10-Mar-2023 Instruction Type:Patient Education Patient Instructions Indication:BMI 30.0-30.9,adult Start:23-Oct-2022 Instruction Type:Provider Instructions for Treatment How to Access Health Informa tion Online using Patient Portal and [employer]rd [employer] Apps Indication:BMI 30.0-30.9,adult Start:23-Oct-2022 Instruction Type:Patient Education Patient Instructions Indication:BMI 29.0-29.9,adult Start:05-Aug-2022 Instruction Type:Provider Instructions for Treatment How to Access Health Informa tion Online using Patient Portal and [employer]rd [employer] Apps Indication:BMI 29.0-29.9,adult Start:05-Aug-2022 Instruction Type:Patient Education Patient Instructions Indication:Abnormal glucose tolerance test Start:07-Jun-2022 Instruction Type:Provider Instructions for Treatment How to Access Health Informa tion Online using Patient Portal and [employer]rd [employer] Apps Indication:Abnormal glucose tolerance test Start:07-Jun-2022 Instruction Type:Patient Education Patient Instructions Indication:Abnormal glucose tolerance test Start:04-Feb-2022 Instruction Type:Provider Instructions for Treatment How to Access Health Informa tion Online using Patient Portal and [employer] Apps Indication:Abnormal glucose tolerance test Start:04-Feb-2022 Instruction Type:Patient Education Patient Instructions Indication:BMI 29.0-29.9,adult Start:10-Sep-2021 Instruction Type:Provider Instructions for Treatment How to Access Health Informa tion Online using Patient Portal and [employer]rd [employer] Apps Indication:BMI 29.0-29.9,adult Start:10-Sep-2021 Instruction Type:Patient Education Patient Instructions Indication:Abnormal glucose tolerance test Start:25-Apr-2021 Instruction Type:Provider Instructions for Treatment How to Access Health Informa tion Online using Patient Portal and [employer] Apps Indication:Abnormal glucose tolerance test Start:25-Apr-2021 Instruction Type:Patient Education Patient Instructions Indication:Non-smoker Start:13-Dec-2020 Instruction Type:Provider Instructions for Treatment How to Access Health Informa tion Online using Patient Portal and [employer] Apps Indication:Non-smoker Start:13-Dec-2020 Instruction Type:Patient Education How to Access Health Informa tion Online using Patient Portal and [employer] Apps Indication:Non-smoker Start:09-Aug-2020 Instruction Type:Patient Education Patient Instructions Indication:Non-smoker Start:09-Aug-2020 Instruction Type:Provider Instructions for Treatment cardiovascular counseling Indication:CAD, multiple vessel Start:12-Jun-2020 Instruction Type:Provider Instructions for Treatment obesity counseling Indication:Abnormal glucose tolerance test Start:12-Jun-2020 Instruction Type:Provider Instructions for Treatment Patient Instructions Indication:Non-smoker Start:12-Jun-2020 Instruction Type:Provider Instructions for Treatment How to Access Health Informa tion Online using Patient Portal and [employer] Apps Indication:Non-smoker Start:12-Jun-2020 Instruction Type:Patient Education How to access health informa tion online Indication:Abnormal glucose tolerance test Start:14-Apr-2020 Instruction Type:Patient Education How to access health informa tion online - Detail Indication:Abnormal glucose tolerance test Start:14-Apr-2020 Instruction Type:Patient Education Patient Instructions Indication:Abnormal glucose tolerance test Start:14-Apr-2020 Instruction Type:Provider Instructions for Treatment How to access health informa tion online Indication:Non-smoker Start:10-Apr-2020 Instruction Type:Patient Education How to access health informa tion online - Detail Indication:Non-smoker Start:10-Apr-2020 Instruction Type:Patient Education Patient Instructions Indication:Non-smoker Start:10-Apr-2020 Instruction Type:Provider Instructions for Treatment How to access health informa tion online Indication:Non-smoker Start:26-Nov-2019 Instruction Type:Patient Education How to access health informa tion online - Detail Indication:Non-smoker Start:26-Nov-2019 Instruction Type:Patient Education Patient Instructions Indication:Non-smoker Start:26-Nov-2019 Instruction Type:Provider Instructions for Treatment How to access health informa tion online Indication:Abnormal glucose tolerance test Start:19-Jul-2019 Instruction Type:Patient Education How to access health informa tion online - Detail Indication:Abnormal glucose tolerance test Start:19-Jul-2019 Instruction Type:Patient Education Patient Instructions Indication:Abnormal glucose tolerance test Start:19-Jul-2019 Instruction Type:Provider Instructions for Treatment How to access health informa tion online Indication:Non-smoker Start:09-Jun-2019 Instruction Type:Patient Education How to access health informa tion online - Detail Indication:Non-smoker Start:09-Jun-2019 Instruction Type:Patient Education Patient Instructions Indication:Non-smoker Start:09-Jun-2019 Instruction Type:Provider Instructions for Treatment How to access health informa tion online Indication:Hypertension, benign Start:22-Mar-2019 Instruction Type:Patient Education How to access health informa tion online - Detail Indication:Hypertension, benign Start:22-Mar-2019 Instruction Type:Patient Education Patient Instructions Indication:Hypertension, benign Start:22-Mar-2019 Instruction Type:Provider Instructions for Treatment How to access health informa tion online Indication:Abnormal glucose tolerance test Start:20-Nov-2018 Instruction Type:Patient Education How to access health informa tion online - Detail Indication:Abnormal glucose tolerance test Start:20-Nov-2018 Instruction Type:Patient Education Patient Instructions Indication:Abnormal glucose tolerance test Start:20-Nov-2018 Instruction Type:Provider Instructions for Treatment How to access health informa tion online Indication:BMI 29.0-29.9,adult Start:29-Jun-2018 Instruction Type:Patient Education How to access health informa tion online - Detail Indication:BMI 29.0-29.9,adult Start:29-Jun-2018 Instruction Type:Patient Education How to access health informa tion online - Detail Indication:BMI 29.0-29.9,adult Start:29-Jun-2018 Instruction Type:Patient Education Patient Instructions Indication:BMI 29.0-29.9,adult Start:29-Jun-2018 Instruction Type:Provider Instructions for Treatment cardiovascular counseling Indication:CAD, multiple vessel Start:05-Jun-2018 Instruction Type:Provider Instructions for Treatment How to access health informa tion online Indication:Non-smoker Start:05-Jun-2018 Instruction Type:Patient Education How to access health informa tion online - Detail Indication:Non-smoker Start:05-Jun-2018 Instruction Type:Patient Education Patient Instructions Indication:Non-smoker Start:05-Jun-2018 Instruction Type:Provider Instructions for Treatment How to access health informa tion online Indication:Abnormal glucose tolerance test Start:13-Feb-2018 Instruction Type:Patient Education How to access health informa tion online - Detail Indication:Abnormal glucose tolerance test Start:13-Feb-2018 Instruction Type:Patient Education Patient Instructions Indication:Abnormal glucose tolerance test Start:13-Feb-2018 Instruction Type:Provider Instructions for Treatment How to access health informa tion online Indication:Abnormal glucose tolerance test Start:13-Oct-2017 Instruction Type:Patient Education How to access health informa tion online - Detail Indication:Abnormal glucose tolerance test Start:13-Oct-2017 Instruction Type:Patient Education Patient Instructions Indication:Abnormal glucose tolerance test Start:13-Oct-2017 Instruction Type:Provider Instructions for Treatment How to access health informa tion online Indication:BMI 29.0-29.9,adult Start:21-Aug-2017 Instruction Type:Patient Education How to access health informa tion online - Detail Indication:BMI 29.0-29.9,adult Start:21-Aug-2017 Instruction Type:Patient Education Patient Instructions Indication:BMI 29.0-29.9,adult Start:21-Aug-2017 Instruction Type:Provider Instructions for Treatment How to access health informa tion online Indication:Abnormal glucose tolerance test Start:11-Jun-2017 Instruction Type:Patient Education How to access health informa tion online - Detail Indication:Abnormal glucose tolerance test Start:11-Jun-2017 Instruction Type:Patient Education Patient Instructions Indication:Abnormal glucose tolerance test Start:11-Jun-2017 Instruction Type:Provider Instructions for Treatment How to access health informa tion online Indication:BMI 29.0-29.9,adult Start:30-May-2017 Instruction Type:Patient Education How to access health informa tion online - Detail Indication:BMI 29.0-29.9,adult Start:30-May-2017 Instruction Type:Patient Education Patient Instructions Indication:BMI 29.0-29.9,adult Start:30-May-2017 Instruction Type:Provider Instructions for Treatment Patient Instructions Indication:BMI 29.0-29.9,adult Start:30-May-2017 Instruction Type:Provider Instructions for Treatment How to access health informa tion online Indication:BMI 27.0-27.9,adult Start:05-Feb-2017 Instruction Type:Patient Education How to access health informa tion online - Detail Indication:BMI 27.0-27.9,adult Start:05-Feb-2017 Instruction Type:Patient Education Patient Instructions Indication:BMI 27.0-27.9,adult Start:05-Feb-2017 Instruction Type:Provider Instructions for Treatment How to access health informa tion online Indication:Non-smoker Start:23-Oct-2016 Instruction Type:Patient Education How to access health informa tion online - Detail Indication:Non-smoker Start:23-Oct-2016 Instruction Type:Patient Education Patient Instructions Indication:Non-smoker Start:23-Oct-2016 Instruction Type:Provider Instructions for Treatment How to access health informa tion online Indication:Abnormal glucose tolerance test Start:02-Oct-2016 Instruction Type:Patient Education How to access health informa tion online - Detail Indication:Abnormal glucose tolerance test Start:02-Oct-2016 Instruction Type:Patient Education Patient Instructions Indication:Abnormal glucose tolerance test Start:02-Oct-2016 Instruction Type:Provider Instructions for Treatment How to access health informa tion online Indication:Non-smoker Start:29-May-2016 Instruction Type:Patient Education How to access health informa tion online - Detail Indication:Non-smoker Start:29-May-2016 Instruction Type:Patient Education Patient Instructions Indication:Non-smoker Start:29-May-2016 Instruction Type:Provider Instructions for Treatment Patient Instructions Indication:Abnormal glucose tolerance test Start:21-Feb-2016 Instruction Type:Provider Instructions for Treatment How to access health informa tion online Indication:Abnormal glucose tolerance test Start:21-Feb-2016 Instruction Type:Patient Education How to access health informa tion online - Detail Indication:Abnormal glucose tolerance test Start:21-Feb-2016 Instruction Type:Patient Education How to access health informa tion online Indication:Abnormal glucose tolerance test Start:20-Apr-2015 Instruction Type:Patient Education How to access health informa tion online - Detail Indication:Abnormal glucose tolerance test Start:20-Apr-2015 Instruction Type:Patient Education Patient Instructions Indication:Abnormal glucose tolerance test Start:20-Apr-2015 Instruction Type:Provider Instructions for Treatment How to access health informa tion online Indication:Anxiety Start:19-Dec-2014 Instruction Type:Patient Education How to access health informa tion online - Detail Indication:Anxiety Start:19-Dec-2014 Instruction Type:Patient Education Patient Instructions Indication:Anxiety Start:19-Dec-2014 Instruction Type:Provider Instructions for Treatment Patient Instructions Indication:Encounter for Medicare annual wellness exam Start:18-May-2014 Instruction Type:Provider Instructions for Treatment obesity counseling Indication:Hypertension, benign Start:18-May-2014 Instruction Type:Provider Instructions for Treatment Patient Instructions Indication:Hypertension, benign Start:01-Nov-2013 Instruction Type:Provider Instructions for Treatment Patient Instructions: stop a ltace adn start norvasc for bp Indication:Hypertension, benign Start:19-Apr-2013 Instruction Type:Provider Instructions for Treatment Patient Instructions Indication:Pain in joint involving lower leg Start:07-Dec-2012 Instruction Type:Provider Instructions for Treatment Patient Instructions Indication:Encounter for Medicare annual wellness exam Start:29-Apr-2012 Instruction Type:Provider Instructions for Treatment Patient Instructions Indication:Anxiety Start:16-Apr-2012 Instruction Type:Provider Instructions for Treatment [facility] Work Phone: reason for referral (narrative)* Diagnostic Procedure Only (Urgent) - Closed Specialty Diagnoses / Procedures Referred By Contac t Referred To Contact XR IMAGING Diagnoses Rib pain on right side Procedures XR RIBS/CHEST 3V AP RIB/OBLS/CXR RIGHT RADEX RIBS UNI W/POSTEROANT CH MINIMUM 3 VIEWS Jayne Benjamin APRN.[employer] [address] [place] [address] Xr Imaging Referral ID Status Reason Start Date Expiration Date V isits Requested Visits Authorized [id number] Closed Auto-Generate d Referral 09/13/2021 10/13/2022 1 1 [facility] for referral (narrative)* Diagnostic Procedure Only (Urgent) - Closed Specialty Diagnoses / Procedures Referred By Contac t Referred To Contact XR IMAGING Diagnoses Rib pain on right side Procedures XR RIBS/CHEST 3V AP RIB/OBLS/CXR RIGHT RADEX RIBS UNI W/POSTEROANT CH MINIMUM 3 VIEWS Jayne Benjamin APRN.CNP [address] [place] [address] [place] [address] Referral ID Status Reason Start Date Expiration Date V isits Requested Visits Authorized [id number] Closed Auto-Generate d Referral 09/13/2021 10/13/2022 1 [facility]No reason for referral information availableWCleveland [facility] Work Phone: Reason for visit Narrative* Diagnostic Procedure Only (Urgent) - Closed Specialty Diagnoses / Procedures Referred By Contac t Referred To Contact XR IMAGING Diagnoses Rib pain on right side Procedures XR RIBS/CHEST 3V AP RIB/OBLS/CXR RIGHT RADEX RIBS UNI W/POSTEROANT CH MINIMUM 3 VIEWS Jayne Benjamin APRN.[employer] [address] [place] [address] [place] [id number] Referral ID Status Reason Start Date Expiration Date V isits Requested Visits Authorized [id number] Closed Auto-Generate d Referral 09/13/2021 10/13/2022 1 1 [facility] Family History No Family History Records FoundUnknown Family Member Name Dates Details Father Comments:Prostate CA, HTN, M I at 60, Status:Active Mother Comments:NE, carotid occlusi on, OA, cataracts, glaucoma Status:Active Unknown Family Member Name Dates Details Father Comments:Prostate CA, HTN, M I at 60, Status:Active Mother Comments:NE, carotid occlusi on, OA, cataracts, glaucoma Status:Active Unknown Family Member Name Dates Details Father Comments:Prostate CA, HTN, M I at 60, Status:Active Mother Comments:NE, carotid occlusi on, OA, cataracts, glaucoma Status:Active Unknown Family Member Name Dates Details Father Comments:Prostate CA, HTN, M I at 60, Status:Active Mother Comments:NE, carotid occlusi on, OA, cataracts, glaucoma Status:Active Unknown Family Member Name Dates Details Father Comments:Prostate CA, HTN, M I at 60, Status:Active Mother Comments:NE, carotid occlusi on, OA, cataracts, glaucoma Status:Active Unknown Family Member Name Dates Details Father Comments:Prostate CA, HTN, M I at 60, Status:Active Mother Comments:NE, carotid occlusi on, OA, cataracts, glaucoma Status:Active Unknown Family Member Name Dates Details Father Comments:Prostate CA, HTN, M I at 60, Status:Active Mother Comments:NE, carotid occlusi on, OA, cataracts, glaucoma Status:Active Unknown Family Member Name Dates Details Father Comments:Prostate CA, HTN, M I at 60, Status:Active Mother Comments:NE, carotid occlusi on, OA, cataracts, glaucoma Status:Active Unknown Family Member Name Dates Details Father Comments:Prostate CA, HTN, M I at 60, Status:Active Mother Comments:NE, carotid occlusi on, OA, cataracts, glaucoma Status:Active Unknown Family Member Name Dates Details Father Comments:Prostate CA, HTN, M I at 60, Status:Active Mother Comments:NE, carotid occlusi on, OA, cataracts, glaucoma Status:Active Unknown Family Member Name Dates Details Father Comments:Prostate CA, HTN, M I at 60, Status:Active Mother Comments:NE, carotid occlusi on, OA, cataracts, glaucoma Status:Active Unknown Family Member Name Dates Details Father Comments:Prostate CA, HTN, M I at 60, Status:Active Mother Comments:NE, carotid occlusi on, OA, cataracts, glaucoma Status:Active Unknown Family Member Name Dates Details Father Comments:Prostate CA, HTN, M I at 60, Status:Active Mother Comments:NE, carotid occlusi on, OA, cataracts, glaucoma Status:Active Unknown Family Member Name Dates Details Father Comments:Prostate CA, HTN, M I at 60, Status:Active Mother Comments:NE, carotid occlusi on, OA, cataracts, glaucoma Status:Active Relationship Condition Age at Onset Recorded Date/[place] mother Cerebrovascular accident (CVA) Unknown Myocardial infarction 93 father Myocardial infarction Unknown Coronary artery disease Unknown Unknown Family Member Name Dates Details Father Comments:Prostate CA, HTN, M I at 60, Status:Active Mother Comments:NE, carotid occlusi on, OA, cataracts, glaucoma Status:Active Unknown Family Member Name Dates Details Father Comments:Prostate CA, HTN, M I at 60, Status:Active Mother Comments:NE, carotid occlusi on, OA, cataracts, glaucoma Status:Active Unknown Family Member Name Dates Details Father Comments:Prostate CA, HTN, M I at 60, Status:Active Mother Comments:NE, carotid occlusi on, OA, cataracts, glaucoma Status:Active Unknown Family Member Name Dates Details Father Comments:Prostate CA, HTN, M I at 60, Status:Active Mother Comments:NE, carotid occlusi on, OA, cataracts, glaucoma Status:Active Unknown Family Member Name Dates Details Father Comments:Prostate CA, HTN, M I at 60, Status:Active Mother Comments:NE, carotid occlusi on, OA, cataracts, glaucoma Status:Active Unknown Family Member Name Dates Details Father Comments:Prostate CA, HTN, M I at 60, Status:Active Mother Comments:NE, carotid occlusi on, OA, cataracts, glaucoma Status:Active Unknown Family Member Name Dates Details Father Comments:Prostate CA, HTN, M I at 60, Status:Active Mother Comments:NE, carotid occlusi on, OA, cataracts, glaucoma Status:Active Unknown Family Member Name Dates Details Father Comments:Prostate CA, HTN, M I at 60, Status:Active Mother Comments:NE, carotid occlusi on, OA, cataracts, glaucoma Status:Active Unknown Family Member Name Dates Details Father Comments:Prostate CA, HTN, M I at 60, Status:Active Mother Comments:NE, carotid occlusi on, OA, cataracts, glaucoma Status:Active Unknown Family Member Name Dates Details Father Comments:Prostate CA, HTN, M I at 60, Status:Active Mother Comments:NE, carotid occlusi on, OA, cataracts, glaucoma Status:Active Unknown Family Member Name Dates Details Father Comments:Prostate CA, HTN, M I at 60, Status:Active Mother Comments:NE, carotid occlusi on, OA, cataracts, glaucoma Status:Active Unknown Family Member Name Dates Details Father Comments:Prostate CA, HTN, M I at 60, Status:Active Mother Comments:NE, carotid occlusi on, OA, cataracts, glaucoma Status:Active Unknown Family Member Name Dates Details Father Comments:Prostate CA, HTN, M I at 60, Status:Active Mother Comments:NE, carotid occlusi on, OA, cataracts, glaucoma Status:Active Unknown Family Member Name Dates Details Father Comments:Prostate CA, HTN, M I at 60, Status:Active Mother Comments:NE, carotid occlusi on, OA, cataracts, glaucoma Status:Active Unknown Family Member Name Dates Details Father Comments:Prostate CA, HTN, M I at 60, Status:Active Mother Comments:NE, carotid occlusi on, OA, cataracts, glaucoma Status:Active Relationship Condition Age at Onset Recorded Date/[place] mother Cerebrovascular accident (CVA) Unknown Myocardial infarction 93 Malignant neoplasm of breast Unknown father Myocardial infarction Unknown Coronary artery disease Unknown Relationship Condition Age at Onset Recorded Date/[place] mother Cerebrovascular accident (CVA) Unknown Myocardial infarction 93 Malignant neoplasm of breast Unknown father Myocardial infarction Unknown Coronary artery disease Unknown Malignant neoplasm Unknown Cardiac disease Unknown Hypertension Unknown brother Cardiac disease Unknown Instructions Name Dates Details CAD, multiple vessel : cardi ovascular counseling Indication:CAD, multiple vessel Non-smoker : How to access h ealth information online Indication:Non-smoker Non-smoker : How to access h ealth information online - Detail Indication:Non-smoker Non-smoker : Patient Instruc tions Indication:Non-smoker Abnormal glucose tolerance t est : How to access health information online Indication:Abnormal glucose tolerance test Abnormal glucose tolerance t est : How to access health information online - Detail Indication:Abnormal glucose tolerance test Abnormal glucose tolerance t est : Patient Instructions Indication:Abnormal glucose tolerance test BMI 29.0-29.9,adult : How to access health information online Indication:BMI 29.0-29.9,adult BMI 29.0-29.9,adult : How to access health information online - Detail Indication:BMI 29.0-29.9,adult BMI 29.0-29.9,adult : Patien t Instructions Indication:BMI 29.0-29.9,adult BMI 27.0-27.9,adult : How to access health information online Indication:BMI 27.0-27.9,adult BMI 27.0-27.9,adult : How to access health information online - Detail Indication:BMI 27.0-27.9,adult BMI 27.0-27.9,adult : Patien t Instructions Indication:BMI 27.0-27.9,adult Anxiety : How to access heal th information online Indication:Anxiety Anxiety : How to access heal th information online - Detail Indication:Anxiety Anxiety : Patient Instructio ns Indication:Anxiety Encounter for Medicare annua l wellness exam : Patient Instructions Indication:Encounter for Medicare annual wellness exam Hypertension, benign : obesi ty counseling Indication:Hypertension, benign Hypertension, benign : Patie nt Instructions Indication:Hypertension, benign Hypertension, benign : Patie nt Instructions: stop altace adn start norvasc for bp Indication:Hypertension, benign Pain in joint involving lowe r leg : Patient Instructions Indication:Pain in joint involving lower leg Name Dates Details How to access health informa tion online Indication:Abnormal glucose tolerance test Start:20-Nov-2018 Instruction Type:Patient Education How to access health informa tion online - Detail Indication:Abnormal glucose tolerance test Start:20-Nov-2018 Instruction Type:Patient Education Patient Instructions Indication:Abnormal glucose tolerance test Start:20-Nov-2018 Instruction Type:Provider Instructions for Treatment How to access health informa tion online Indication:BMI 29.0-29.9,adult Start:29-Jun-2018 Instruction Type:Patient Education How to access health informa tion online - Detail Indication:BMI 29.0-29.9,adult Start:29-Jun-2018 Instruction Type:Patient Education Patient Instructions Indication:BMI 29.0-29.9,adult Start:29-Jun-2018 Instruction Type:Provider Instructions for Treatment cardiovascular counseling Indication:CAD, multiple vessel Start:05-Jun-2018 Instruction Type:Provider Instructions for Treatment How to access health informa tion online Indication:Non-smoker Start:05-Jun-2018 Instruction Type:Patient Education How to access health informa tion online - Detail Indication:Non-smoker Start:05-Jun-2018 Instruction Type:Patient Education Patient Instructions Indication:Non-smoker Start:05-Jun-2018 Instruction Type:Provider Instructions for Treatment How to access health informa tion online Indication:Abnormal glucose tolerance test Start:13-Feb-2018 Instruction Type:Patient Education How to access health informa tion online - Detail Indication:Abnormal glucose tolerance test Start:13-Feb-2018 Instruction Type:Patient Education Patient Instructions Indication:Abnormal glucose tolerance test Start:13-Feb-2018 Instruction Type:Provider Instructions for Treatment How to access health informa tion online Indication:Abnormal glucose tolerance test Start:13-Oct-2017 Instruction Type:Patient Education How to access health informa tion online - Detail Indication:Abnormal glucose tolerance test Start:13-Oct-2017 Instruction Type:Patient Education Patient Instructions Indication:Abnormal glucose tolerance test Start:13-Oct-2017 Instruction Type:Provider Instructions for Treatment How to access health informa tion online Indication:BMI 29.0-29.9,adult Start:21-Aug-2017 Instruction Type:Patient Education How to access health informa tion online - Detail Indication:BMI 29.0-29.9,adult Start:21-Aug-2017 Instruction Type:Patient Education Patient Instructions Indication:BMI 29.0-29.9,adult Start:21-Aug-2017 Instruction Type:Provider Instructions for Treatment How to access health informa tion online Indication:Abnormal glucose tolerance test Start:11-Jun-2017 Instruction Type:Patient Education How to access health informa tion online - Detail Indication:Abnormal glucose tolerance test Start:11-Jun-2017 Instruction Type:Patient Education Patient Instructions Indication:Abnormal glucose tolerance test Start:11-Jun-2017 Instruction Type:Provider Instructions for Treatment How to access health informa tion online Indication:BMI 29.0-29.9,adult Start:30-May-2017 Instruction Type:Patient Education How to access health informa tion online - Detail Indication:BMI 29.0-29.9,adult Start:30-May-2017 Instruction Type:Patient Education Patient Instructions Indication:BMI 29.0-29.9,adult Start:30-May-2017 Instruction Type:Provider Instructions for Treatment How to access health informa tion online Indication:BMI 27.0-27.9,adult Start:05-Feb-2017 Instruction Type:Patient Education How to access health informa tion online - Detail Indication:BMI 27.0-27.9,adult Start:05-Feb-2017 Instruction Type:Patient Education Patient Instructions Indication:BMI 27.0-27.9,adult Start:05-Feb-2017 Instruction Type:Provider Instructions for Treatment How to access health informa tion online Indication:Non-smoker Start:23-Oct-2016 Instruction Type:Patient Education How to access health informa tion online - Detail Indication:Non-smoker Start:23-Oct-2016 Instruction Type:Patient Education Patient Instructions Indication:Non-smoker Start:23-Oct-2016 Instruction Type:Provider Instructions for Treatment How to access health informa tion online Indication:Abnormal glucose tolerance test Start:02-Oct-2016 Instruction Type:Patient Education How to access health informa tion online - Detail Indication:Abnormal glucose tolerance test Start:02-Oct-2016 Instruction Type:Patient Education Patient Instructions Indication:Abnormal glucose tolerance test Start:02-Oct-2016 Instruction Type:Provider Instructions for Treatment How to access health informa tion online Indication:Non-smoker Start:29-May-2016 Instruction Type:Patient Education How to access health informa tion online - Detail Indication:Non-smoker Start:29-May-2016 Instruction Type:Patient Education Patient Instructions Indication:Non-smoker Start:29-May-2016 Instruction Type:Provider Instructions for Treatment Patient Instructions Indication:Abnormal glucose tolerance test Start:21-Feb-2016 Instruction Type:Provider Instructions for Treatment How to access health informa tion online Indication:Abnormal glucose tolerance test Start:21-Feb-2016 Instruction Type:Patient Education How to access health informa tion online - Detail Indication:Abnormal glucose tolerance test Start:21-Feb-2016 Instruction Type:Patient Education How to access health informa tion online Indication:Abnormal glucose tolerance test Start:20-Apr-2015 Instruction Type:Patient Education How to access health informa tion online - Detail Indication:Abnormal glucose tolerance test Start:20-Apr-2015 Instruction Type:Patient Education Patient Instructions Indication:Abnormal glucose tolerance test Start:20-Apr-2015 Instruction Type:Provider Instructions for Treatment How to access health informa tion online Indication:Anxiety Start:19-Dec-2014 Instruction Type:Patient Education How to access health informa tion online - Detail Indication:Anxiety Start:19-Dec-2014 Instruction Type:Patient Education Patient Instructions Indication:Anxiety Start:19-Dec-2014 Instruction Type:Provider Instructions for Treatment Patient Instructions Indication:Encounter for Medicare annual wellness exam Start:18-May-2014 Instruction Type:Provider Instructions for Treatment obesity counseling Indication:Hypertension, benign Start:18-May-2014 Instruction Type:Provider Instructions for Treatment Patient Instructions Indication:Hypertension, benign Start:01-Nov-2013 Instruction Type:Provider Instructions for Treatment Patient Instructions: stop a ltace adn start norvasc for bp Indication:Hypertension, benign Start:19-Apr-2013 Instruction Type:Provider Instructions for Treatment Patient Instructions Indication:Pain in joint involving lower leg Start:07-Dec-2012 Instruction Type:Provider Instructions for Treatment Patient Instructions Indication:Encounter for Medicare annual wellness exam Start:29-Apr-2012 Instruction Type:Provider Instructions for Treatment Patient Instructions Indication:Anxiety Start:16-Apr-2012 Instruction Type:Provider Instructions for Treatment Name Dates Details How to access health informa tion online Indication:Hypertension, benign Start:22-Mar-2019 Instruction Type:Patient Education How to access health informa tion online - Detail Indication:Hypertension, benign Start:22-Mar-2019 Instruction Type:Patient Education Patient Instructions Indication:Hypertension, benign Start:22-Mar-2019 Instruction Type:Provider Instructions for Treatment How to access health informa tion online Indication:Abnormal glucose tolerance test Start:20-Nov-2018 Instruction Type:Patient Education How to access health informa tion online - Detail Indication:Abnormal glucose tolerance test Start:20-Nov-2018 Instruction Type:Patient Education Patient Instructions Indication:Abnormal glucose tolerance test Start:20-Nov-2018 Instruction Type:Provider Instructions for Treatment How to access health informa tion online Indication:BMI 29.0-29.9,adult Start:29-Jun-2018 Instruction Type:Patient Education How to access health informa tion online - Detail Indication:BMI 29.0-29.9,adult Start:29-Jun-2018 Instruction Type:Patient Education Patient Instructions Indication:BMI 29.0-29.9,adult Start:29-Jun-2018 Instruction Type:Provider Instructions for Treatment cardiovascular counseling Indication:CAD, multiple vessel Start:05-Jun-2018 Instruction Type:Provider Instructions for Treatment How to access health informa tion online Indication:Non-smoker Start:05-Jun-2018 Instruction Type:Patient Education How to access health informa tion online - Detail Indication:Non-smoker Start:05-Jun-2018 Instruction Type:Patient Education Patient Instructions Indication:Non-smoker Start:05-Jun-2018 Instruction Type:Provider Instructions for Treatment How to access health informa tion online Indication:Abnormal glucose tolerance test Start:13-Feb-2018 Instruction Type:Patient Education How to access health informa tion online - Detail Indication:Abnormal glucose tolerance test Start:13-Feb-2018 Instruction Type:Patient Education Patient Instructions Indication:Abnormal glucose tolerance test Start:13-Feb-2018 Instruction Type:Provider Instructions for Treatment How to access health informa tion online Indication:Abnormal glucose tolerance test Start:13-Oct-2017 Instruction Type:Patient Education How to access health informa tion online - Detail Indication:Abnormal glucose tolerance test Start:13-Oct-2017 Instruction Type:Patient Education Patient Instructions Indication:Abnormal glucose tolerance test Start:13-Oct-2017 Instruction Type:Provider Instructions for Treatment How to access health informa tion online Indication:BMI 29.0-29.9,adult Start:21-Aug-2017 Instruction Type:Patient Education How to access health informa tion online - Detail Indication:BMI 29.0-29.9,adult Start:21-Aug-2017 Instruction Type:Patient Education Patient Instructions Indication:BMI 29.0-29.9,adult Start:21-Aug-2017 Instruction Type:Provider Instructions for Treatment How to access health informa tion online Indication:Abnormal glucose tolerance test Start:11-Jun-2017 Instruction Type:Patient Education How to access health informa tion online - Detail Indication:Abnormal glucose tolerance test Start:11-Jun-2017 Instruction Type:Patient Education Patient Instructions Indication:Abnormal glucose tolerance test Start:11-Jun-2017 Instruction Type:Provider Instructions for Treatment How to access health informa tion online Indication:BMI 29.0-29.9,adult Start:30-May-2017 Instruction Type:Patient Education How to access health informa tion online - Detail Indication:BMI 29.0-29.9,adult Start:30-May-2017 Instruction Type:Patient Education Patient Instructions Indication:BMI 29.0-29.9,adult Start:30-May-2017 Instruction Type:Provider Instructions for Treatment How to access health informa tion online Indication:BMI 27.0-27.9,adult Start:05-Feb-2017 Instruction Type:Patient Education How to access health informa tion online - Detail Indication:BMI 27.0-27.9,adult Start:05-Feb-2017 Instruction Type:Patient Education Patient Instructions Indication:BMI 27.0-27.9,adult Start:05-Feb-2017 Instruction Type:Provider Instructions for Treatment How to access health informa tion online Indication:Non-smoker Start:23-Oct-2016 Instruction Type:Patient Education How to access health informa tion online - Detail Indication:Non-smoker Start:23-Oct-2016 Instruction Type:Patient Education Patient Instructions Indication:Non-smoker Start:23-Oct-2016 Instruction Type:Provider Instructions for Treatment How to access health informa tion online Indication:Abnormal glucose tolerance test Start:02-Oct-2016 Instruction Type:Patient Education How to access health informa tion online - Detail Indication:Abnormal glucose tolerance test Start:02-Oct-2016 Instruction Type:Patient Education Patient Instructions Indication:Abnormal glucose tolerance test Start:02-Oct-2016 Instruction Type:Provider Instructions for Treatment How to access health informa tion online Indication:Non-smoker Start:29-May-2016 Instruction Type:Patient Education How to access health informa tion online - Detail Indication:Non-smoker Start:29-May-2016 Instruction Type:Patient Education Patient Instructions Indication:Non-smoker Start:29-May-2016 Instruction Type:Provider Instructions for Treatment Patient Instructions Indication:Abnormal glucose tolerance test Start:21-Feb-2016 Instruction Type:Provider Instructions for Treatment How to access health informa tion online Indication:Abnormal glucose tolerance test Start:21-Feb-2016 Instruction Type:Patient Education How to access health informa tion online - Detail Indication:Abnormal glucose tolerance test Start:21-Feb-2016 Instruction Type:Patient Education How to access health informa tion online Indication:Abnormal glucose tolerance test Start:20-Apr-2015 Instruction Type:Patient Education How to access health informa tion online - Detail Indication:Abnormal glucose tolerance test Start:20-Apr-2015 Instruction Type:Patient Education Patient Instructions Indication:Abnormal glucose tolerance test Start:20-Apr-2015 Instruction Type:Provider Instructions for Treatment How to access health informa tion online Indication:Anxiety Start:19-Dec-2014 Instruction Type:Patient Education How to access health informa tion online - Detail Indication:Anxiety Start:19-Dec-2014 Instruction Type:Patient Education Patient Instructions Indication:Anxiety Start:19-Dec-2014 Instruction Type:Provider Instructions for Treatment Patient Instructions Indication:Encounter for Medicare annual wellness exam Start:18-May-2014 Instruction Type:Provider Instructions for Treatment obesity counseling Indication:Hypertension, benign Start:18-May-2014 Instruction Type:Provider Instructions for Treatment Patient Instructions Indication:Hypertension, benign Start:01-Nov-2013 Instruction Type:Provider Instructions for Treatment Patient Instructions: stop a ltace adn start norvas for bp Indication:Hypertension, benign Start:19-Apr-2013 Instruction Type:Provider Instructions for Treatment Patient Instructions Indication:Pain in joint involving lower leg Start:07-Dec-2012 Instruction Type:Provider Instructions for Treatment Patient Instructions Indication:Encounter for Medicare annual wellness exam Start:29-Apr-2012 Instruction Type:Provider Instructions for Treatment Patient Instructions Indication:Anxiety Start:16-Apr-2012 Instruction Type:Provider Instructions for Treatment Instruction Description Start Date Please follow-up with Primar y Care Physician or [facility] [employer] for treatment or adjustment of medication regarding elevated blood pressure.Patient advised to follow-up with Primary Care Physician for BMI management. Name Dates Details How to access health informa tion online Indication:Non-smoker Start:26-Nov-2019 Instruction Type:Patient Education How to access health informa tion online - Detail Indication:Non-smoker Start:26-Nov-2019 Instruction Type:Patient Education Patient Instructions Indication:Non-smoker Start:26-Nov-2019 Instruction Type:Provider Instructions for Treatment How to access health informa tion online Indication:Abnormal glucose tolerance test Start:19-Jul-2019 Instruction Type:Patient Education How to access health informa tion online - Detail Indication:Abnormal glucose tolerance test Start:19-Jul-2019 Instruction Type:Patient Education Patient Instructions Indication:Abnormal glucose tolerance test Start:19-Jul-2019 Instruction Type:Provider Instructions for Treatment How to access health informa tion online Indication:Non-smoker Start:09-Jun-2019 Instruction Type:Patient Education How to access health informa tion online - Detail Indication:Non-smoker Start:09-Jun-2019 Instruction Type:Patient Education Patient Instructions Indication:Non-smoker Start:09-Jun-2019 Instruction Type:Provider Instructions for Treatment How to access health informa tion online Indication:Hypertension, benign Start:22-Mar-2019 Instruction Type:Patient Education How to access health informa tion online - Detail Indication:Hypertension, benign Start:22-Mar-2019 Instruction Type:Patient Education Patient Instructions Indication:Hypertension, benign Start:22-Mar-2019 Instruction Type:Provider Instructions for Treatment How to access health informa tion online Indication:Abnormal glucose tolerance test Start:20-Nov-2018 Instruction Type:Patient Education How to access health informa tion online - Detail Indication:Abnormal glucose tolerance test Start:20-Nov-2018 Instruction Type:Patient Education Patient Instructions Indication:Abnormal glucose tolerance test Start:20-Nov-2018 Instruction Type:Provider Instructions for Treatment How to access health informa tion online Indication:BMI 29.0-29.9,adult Start:29-Jun-2018 Instruction Type:Patient Education How to access health informa tion online - Detail Indication:BMI 29.0-29.9,adult Start:29-Jun-2018 Instruction Type:Patient Education Patient Instructions Indication:BMI 29.0-29.9,adult Start:29-Jun-2018 Instruction Type:Provider Instructions for Treatment cardiovascular counseling Indication:CAD, multiple vessel Start:05-Jun-2018 Instruction Type:Provider Instructions for Treatment How to access health informa tion online Indication:Non-smoker Start:05-Jun-2018 Instruction Type:Patient Education How to access health informa tion online - Detail Indication:Non-smoker Start:05-Jun-2018 Instruction Type:Patient Education Patient Instructions Indication:Non-smoker Start:05-Jun-2018 Instruction Type:Provider Instructions for Treatment How to access health informa tion online Indication:Abnormal glucose tolerance test Start:13-Feb-2018 Instruction Type:Patient Education How to access health informa tion online - Detail Indication:Abnormal glucose tolerance test Start:13-Feb-2018 Instruction Type:Patient Education Patient Instructions Indication:Abnormal glucose tolerance test Start:13-Feb-2018 Instruction Type:Provider Instructions for Treatment How to access health informa tion online Indication:Abnormal glucose tolerance test Start:13-Oct-2017 Instruction Type:Patient Education How to access health informa tion online - Detail Indication:Abnormal glucose tolerance test Start:13-Oct-2017 Instruction Type:Patient Education Patient Instructions Indication:Abnormal glucose tolerance test Start:13-Oct-2017 Instruction Type:Provider Instructions for Treatment How to access health informa tion online Indication:BMI 29.0-29.9,adult Start:21-Aug-2017 Instruction Type:Patient Education How to access health informa tion online - Detail Indication:BMI 29.0-29.9,adult Start:21-Aug-2017 Instruction Type:Patient Education Patient Instructions Indication:BMI 29.0-29.9,adult Start:21-Aug-2017 Instruction Type:Provider Instructions for Treatment How to access health informa tion online Indication:Abnormal glucose tolerance test Start:11-Jun-2017 Instruction Type:Patient Education How to access health informa tion online - Detail Indication:Abnormal glucose tolerance test Start:11-Jun-2017 Instruction Type:Patient Education Patient Instructions Indication:Abnormal glucose tolerance test Start:11-Jun-2017 Instruction Type:Provider Instructions for Treatment How to access health informa tion online Indication:BMI 29.0-29.9,adult Start:30-May-2017 Instruction Type:Patient Education How to access health informa tion online - Detail Indication:BMI 29.0-29.9,adult Start:30-May-2017 Instruction Type:Patient Education Patient Instructions Indication:BMI 29.0-29.9,adult Start:30-May-2017 Instruction Type:Provider Instructions for Treatment How to access health informa tion online Indication:BMI 27.0-27.9,adult Start:05-Feb-2017 Instruction Type:Patient Education How to access health informa tion online - Detail Indication:BMI 27.0-27.9,adult Start:05-Feb-2017 Instruction Type:Patient Education Patient Instructions Indication:BMI 27.0-27.9,adult Start:05-Feb-2017 Instruction Type:Provider Instructions for Treatment How to access health informa tion online Indication:Non-smoker Start:23-Oct-2016 Instruction Type:Patient Education How to access health informa tion online - Detail Indication:Non-smoker Start:23-Oct-2016 Instruction Type:Patient Education Patient Instructions Indication:Non-smoker Start:23-Oct-2016 Instruction Type:Provider Instructions for Treatment How to access health informa tion online Indication:Abnormal glucose tolerance test Start:02-Oct-2016 Instruction Type:Patient Education How to access health informa tion online - Detail Indication:Abnormal glucose tolerance test Start:02-Oct-2016 Instruction Type:Patient Education Patient Instructions Indication:Abnormal glucose tolerance test Start:02-Oct-2016 Instruction Type:Provider Instructions for Treatment How to access health informa tion online Indication:Non-smoker Start:29-May-2016 Instruction Type:Patient Education How to access health informa tion online - Detail Indication:Non-smoker Start:29-May-2016 Instruction Type:Patient Education Patient Instructions Indication:Non-smoker Start:29-May-2016 Instruction Type:Provider Instructions for Treatment Patient Instructions Indication:Abnormal glucose tolerance test Start:21-Feb-2016 Instruction Type:Provider Instructions for Treatment How to access health informa tion online Indication:Abnormal glucose tolerance test Start:21-Feb-2016 Instruction Type:Patient Education How to access health informa tion online - Detail Indication:Abnormal glucose tolerance test Start:21-Feb-2016 Instruction Type:Patient Education How to access health informa tion online Indication:Abnormal glucose tolerance test Start:20-Apr-2015 Instruction Type:Patient Education How to access health informa tion online - Detail Indication:Abnormal glucose tolerance test Start:20-Apr-2015 Instruction Type:Patient Education Patient Instructions Indication:Abnormal glucose tolerance test Start:20-Apr-2015 Instruction Type:Provider Instructions for Treatment How to access health informa tion online Indication:Anxiety Start:19-Dec-2014 Instruction Type:Patient Education How to access health informa tion online - Detail Indication:Anxiety Start:19-Dec-2014 Instruction Type:Patient Education Patient Instructions Indication:Anxiety Start:19-Dec-2014 Instruction Type:Provider Instructions for Treatment Patient Instructions Indication:Encounter for Medicare annual wellness exam Start:18-May-2014 Instruction Type:Provider Instructions for Treatment obesity counseling Indication:Hypertension, benign Start:18-May-2014 Instruction Type:Provider Instructions for Treatment Patient Instructions Indication:Hypertension, benign Start:01-Nov-2013 Instruction Type:Provider Instructions for Treatment Patient Instructions: stop a ltace adn start norvasc for bp Indication:Hypertension, benign Start:19-Apr-2013 Instruction Type:Provider Instructions for Treatment Patient Instructions Indication:Pain in joint involving lower leg Start:07-Dec-2012 Instruction Type:Provider Instructions for Treatment Patient Instructions Indication:Encounter for Medicare annual wellness exam Start:29-Apr-2012 Instruction Type:Provider Instructions for Treatment Patient Instructions Indication:Anxiety Start:16-Apr-2012 Instruction Type:Provider Instructions for Treatment Name Dates Details How to access health informa tion online Indication:Non-smoker Start:10-Apr-2020 Instruction Type:Patient Education How to access health informa tion online - Detail Indication:Non-smoker Start:10-Apr-2020 Instruction Type:Patient Education Patient Instructions Indication:Non-smoker Start:10-Apr-2020 Instruction Type:Provider Instructions for Treatment How to access health informa tion online Indication:Non-smoker Start:26-Nov-2019 Instruction Type:Patient Education How to access health informa tion online - Detail Indication:Non-smoker Start:26-Nov-2019 Instruction Type:Patient Education Patient Instructions Indication:Non-smoker Start:26-Nov-2019 Instruction Type:Provider Instructions for Treatment How to access health informa tion online Indication:Abnormal glucose tolerance test Start:19-Jul-2019 Instruction Type:Patient Education How to access health informa tion online - Detail Indication:Abnormal glucose tolerance test Start:19-Jul-2019 Instruction Type:Patient Education Patient Instructions Indication:Abnormal glucose tolerance test Start:19-Jul-2019 Instruction Type:Provider Instructions for Treatment How to access health informa tion online Indication:Non-smoker Start:09-Jun-2019 Instruction Type:Patient Education How to access health informa tion online - Detail Indication:Non-smoker Start:09-Jun-2019 Instruction Type:Patient Education Patient Instructions Indication:Non-smoker Start:09-Jun-2019 Instruction Type:Provider Instructions for Treatment How to access health informa tion online Indication:Hypertension, benign Start:22-Mar-2019 Instruction Type:Patient Education How to access health informa tion online - Detail Indication:Hypertension, benign Start:22-Mar-2019 Instruction Type:Patient Education Patient Instructions Indication:Hypertension, benign Start:22-Mar-2019 Instruction Type:Provider Instructions for Treatment How to access health informa tion online Indication:Abnormal glucose tolerance test Start:20-Nov-2018 Instruction Type:Patient Education How to access health informa tion online - Detail Indication:Abnormal glucose tolerance test Start:20-Nov-2018 Instruction Type:Patient Education Patient Instructions Indication:Abnormal glucose tolerance test Start:20-Nov-2018 Instruction Type:Provider Instructions for Treatment How to access health informa tion online Indication:BMI 29.0-29.9,adult Start:29-Jun-2018 Instruction Type:Patient Education How to access health informa tion online - Detail Indication:BMI 29.0-29.9,adult Start:29-Jun-2018 Instruction Type:Patient Education Patient Instructions Indication:BMI 29.0-29.9,adult Start:29-Jun-2018 Instruction Type:Provider Instructions for Treatment cardiovascular counseling Indication:CAD, multiple vessel Start:05-Jun-2018 Instruction Type:Provider Instructions for Treatment How to access health informa tion online Indication:Non-smoker Start:05-Jun-2018 Instruction Type:Patient Education How to access health informa tion online - Detail Indication:Non-smoker Start:05-Jun-2018 Instruction Type:Patient Education Patient Instructions Indication:Non-smoker Start:05-Jun-2018 Instruction Type:Provider Instructions for Treatment How to access health informa tion online Indication:Abnormal glucose tolerance test Start:13-Feb-2018 Instruction Type:Patient Education How to access health informa tion online - Detail Indication:Abnormal glucose tolerance test Start:13-Feb-2018 Instruction Type:Patient Education Patient Instructions Indication:Abnormal glucose tolerance test Start:13-Feb-2018 Instruction Type:Provider Instructions for Treatment How to access health informa tion online Indication:Abnormal glucose tolerance test Start:13-Oct-2017 Instruction Type:Patient Education How to access health informa tion online - Detail Indication:Abnormal glucose tolerance test Start:13-Oct-2017 Instruction Type:Patient Education Patient Instructions Indication:Abnormal glucose tolerance test Start:13-Oct-2017 Instruction Type:Provider Instructions for Treatment How to access health informa tion online Indication:BMI 29.0-29.9,adult Start:21-Aug-2017 Instruction Type:Patient Education How to access health informa tion online - Detail Indication:BMI 29.0-29.9,adult Start:21-Aug-2017 Instruction Type:Patient Education Patient Instructions Indication:BMI 29.0-29.9,adult Start:21-Aug-2017 Instruction Type:Provider Instructions for Treatment How to access health informa tion online Indication:Abnormal glucose tolerance test Start:11-Jun-2017 Instruction Type:Patient Education How to access health informa tion online - Detail Indication:Abnormal glucose tolerance test Start:11-Jun-2017 Instruction Type:Patient Education Patient Instructions Indication:Abnormal glucose tolerance test Start:11-Jun-2017 Instruction Type:Provider Instructions for Treatment How to access health informa tion online Indication:BMI 29.0-29.9,adult Start:30-May-2017 Instruction Type:Patient Education How to access health informa tion online - Detail Indication:BMI 29.0-29.9,adult Start:30-May-2017 Instruction Type:Patient Education Patient Instructions Indication:BMI 29.0-29.9,adult Start:30-May-2017 Instruction Type:Provider Instructions for Treatment How to access health informa tion online Indication:BMI 27.0-27.9,adult Start:05-Feb-2017 Instruction Type:Patient Education How to access health informa tion online - Detail Indication:BMI 27.0-27.9,adult Start:05-Feb-2017 Instruction Type:Patient Education Patient Instructions Indication:BMI 27.0-27.9,adult Start:05-Feb-2017 Instruction Type:Provider Instructions for Treatment How to access health informa tion online Indication:Non-smoker Start:23-Oct-2016 Instruction Type:Patient Education How to access health informa tion online - Detail Indication:Non-smoker Start:23-Oct-2016 Instruction Type:Patient Education Patient Instructions Indication:Non-smoker Start:23-Oct-2016 Instruction Type:Provider Instructions for Treatment How to access health informa tion online Indication:Abnormal glucose tolerance test Start:02-Oct-2016 Instruction Type:Patient Education How to access health informa tion online - Detail Indication:Abnormal glucose tolerance test Start:02-Oct-2016 Instruction Type:Patient Education Patient Instructions Indication:Abnormal glucose tolerance test Start:02-Oct-2016 Instruction Type:Provider Instructions for Treatment How to access health informa tion online Indication:Non-smoker Start:29-May-2016 Instruction Type:Patient Education How to access health informa tion online - Detail Indication:Non-smoker Start:29-May-2016 Instruction Type:Patient Education Patient Instructions Indication:Non-smoker Start:29-May-2016 Instruction Type:Provider Instructions for Treatment Patient Instructions Indication:Abnormal glucose tolerance test Start:21-Feb-2016 Instruction Type:Provider Instructions for Treatment How to access health informa tion online Indication:Abnormal glucose tolerance test Start:21-Feb-2016 Instruction Type:Patient Education How to access health informa tion online - Detail Indication:Abnormal glucose tolerance test Start:21-Feb-2016 Instruction Type:Patient Education How to access health informa tion online Indication:Abnormal glucose tolerance test Start:20-Apr-2015 Instruction Type:Patient Education How to access health informa tion online - Detail Indication:Abnormal glucose tolerance test Start:20-Apr-2015 Instruction Type:Patient Education Patient Instructions Indication:Abnormal glucose tolerance test Start:20-Apr-2015 Instruction Type:Provider Instructions for Treatment How to access health informa tion online Indication:Anxiety Start:19-Dec-2014 Instruction Type:Patient Education How to access health informa tion online - Detail Indication:Anxiety Start:19-Dec-2014 Instruction Type:Patient Education Patient Instructions Indication:Anxiety Start:19-Dec-2014 Instruction Type:Provider Instructions for Treatment Patient Instructions Indication:Encounter for Medicare annual wellness exam Start:18-May-2014 Instruction Type:Provider Instructions for Treatment obesity counseling Indication:Hypertension, benign Start:18-May-2014 Instruction Type:Provider Instructions for Treatment Patient Instructions Indication:Hypertension, benign Start:01-Nov-2013 Instruction Type:Provider Instructions for Treatment Patient Instructions: stop a ltace adn start [facility] for bp Indication:Hypertension, benign Start:19-Apr-2013 Instruction Type:Provider Instructions for Treatment Patient Instructions Indication:Pain in joint involving lower leg Start:07-Dec-2012 Instruction Type:Provider Instructions for Treatment Patient Instructions Indication:Encounter for Medicare annual wellness exam Start:29-Apr-2012 Instruction Type:Provider Instructions for Treatment Patient Instructions Indication:Anxiety Start:16-Apr-2012 Instruction Type:Provider Instructions for Treatment Name Dates Details How to access health informa tion online Indication:Abnormal glucose tolerance test Start:14-Apr-2020 Instruction Type:Patient Education How to access health informa tion online - Detail Indication:Abnormal glucose tolerance test Start:14-Apr-2020 Instruction Type:Patient Education Patient Instructions Indication:Abnormal glucose tolerance test Start:14-Apr-2020 Instruction Type:Provider Instructions for Treatment How to access health informa tion online Indication:Non-smoker Start:10-Apr-2020 Instruction Type:Patient Education How to access health informa tion online - Detail Indication:Non-smoker Start:10-Apr-2020 Instruction Type:Patient Education Patient Instructions Indication:Non-smoker Start:10-Apr-2020 Instruction Type:Provider Instructions for Treatment How to access health informa tion online Indication:Non-smoker Start:26-Nov-2019 Instruction Type:Patient Education How to access health informa tion online - Detail Indication:Non-smoker Start:26-Nov-2019 Instruction Type:Patient Education Patient Instructions Indication:Non-smoker Start:26-Nov-2019 Instruction Type:Provider Instructions for Treatment How to access health informa tion online Indication:Abnormal glucose tolerance test Start:19-Jul-2019 Instruction Type:Patient Education How to access health informa tion online - Detail Indication:Abnormal glucose tolerance test Start:19-Jul-2019 Instruction Type:Patient Education Patient Instructions Indication:Abnormal glucose tolerance test Start:19-Jul-2019 Instruction Type:Provider Instructions for Treatment How to access health informa tion online Indication:Non-smoker Start:09-Jun-2019 Instruction Type:Patient Education How to access health informa tion online - Detail Indication:Non-smoker Start:09-Jun-2019 Instruction Type:Patient Education Patient Instructions Indication:Non-smoker Start:09-Jun-2019 Instruction Type:Provider Instructions for Treatment How to access health informa tion online Indication:Hypertension, benign Start:22-Mar-2019 Instruction Type:Patient Education How to access health informa tion online - Detail Indication:Hypertension, benign Start:22-Mar-2019 Instruction Type:Patient Education Patient Instructions Indication:Hypertension, benign Start:22-Mar-2019 Instruction Type:Provider Instructions for Treatment How to access health informa tion online Indication:Abnormal glucose tolerance test Start:20-Nov-2018 Instruction Type:Patient Education How to access health informa tion online - Detail Indication:Abnormal glucose tolerance test Start:20-Nov-2018 Instruction Type:Patient Education Patient Instructions Indication:Abnormal glucose tolerance test Start:20-Nov-2018 Instruction Type:Provider Instructions for Treatment How to access health informa tion online Indication:BMI 29.0-29.9,adult Start:29-Jun-2018 Instruction Type:Patient Education How to access health informa tion online - Detail Indication:BMI 29.0-29.9,adult Start:29-Jun-2018 Instruction Type:Patient Education Patient Instructions Indication:BMI 29.0-29.9,adult Start:29-Jun-2018 Instruction Type:Provider Instructions for Treatment cardiovascular counseling Indication:CAD, multiple vessel Start:05-Jun-2018 Instruction Type:Provider Instructions for Treatment How to access health informa tion online Indication:Non-smoker Start:05-Jun-2018 Instruction Type:Patient Education How to access health informa tion online - Detail Indication:Non-smoker Start:05-Jun-2018 Instruction Type:Patient Education Patient Instructions Indication:Non-smoker Start:05-Jun-2018 Instruction Type:Provider Instructions for Treatment How to access health informa tion online Indication:Abnormal glucose tolerance test Start:13-Feb-2018 Instruction Type:Patient Education How to access health informa tion online - Detail Indication:Abnormal glucose tolerance test Start:13-Feb-2018 Instruction Type:Patient Education Patient Instructions Indication:Abnormal glucose tolerance test Start:13-Feb-2018 Instruction Type:Provider Instructions for Treatment How to access health informa tion online Indication:Abnormal glucose tolerance test Start:13-Oct-2017 Instruction Type:Patient Education How to access health informa tion online - Detail Indication:Abnormal glucose tolerance test Start:13-Oct-2017 Instruction Type:Patient Education Patient Instructions Indication:Abnormal glucose tolerance test Start:13-Oct-2017 Instruction Type:Provider Instructions for Treatment How to access health informa tion online Indication:BMI 29.0-29.9,adult Start:21-Aug-2017 Instruction Type:Patient Education How to access health informa tion online - Detail Indication:BMI 29.0-29.9,adult Start:21-Aug-2017 Instruction Type:Patient Education Patient Instructions Indication:BMI 29.0-29.9,adult Start:21-Aug-2017 Instruction Type:Provider Instructions for Treatment How to access health informa tion online Indication:Abnormal glucose tolerance test Start:11-Jun-2017 Instruction Type:Patient Education How to access health informa tion online - Detail Indication:Abnormal glucose tolerance test Start:11-Jun-2017 Instruction Type:Patient Education Patient Instructions Indication:Abnormal glucose tolerance test Start:11-Jun-2017 Instruction Type:Provider Instructions for Treatment How to access health informa tion online Indication:BMI 29.0-29.9,adult Start:30-May-2017 Instruction Type:Patient Education How to access health informa tion online - Detail Indication:BMI 29.0-29.9,adult Start:30-May-2017 Instruction Type:Patient Education Patient Instructions Indication:BMI 29.0-29.9,adult Start:30-May-2017 Instruction Type:Provider Instructions for Treatment How to access health informa tion online Indication:BMI 27.0-27.9,adult Start:05-Feb-2017 Instruction Type:Patient Education How to access health informa tion online - Detail Indication:BMI 27.0-27.9,adult Start:05-Feb-2017 Instruction Type:Patient Education Patient Instructions Indication:BMI 27.0-27.9,adult Start:05-Feb-2017 Instruction Type:Provider Instructions for Treatment How to access health informa tion online Indication:Non-smoker Start:23-Oct-2016 Instruction Type:Patient Education How to access health informa tion online - Detail Indication:Non-smoker Start:23-Oct-2016 Instruction Type:Patient Education Patient Instructions Indication:Non-smoker Start:23-Oct-2016 Instruction Type:Provider Instructions for Treatment How to access health informa tion online Indication:Abnormal glucose tolerance test Start:02-Oct-2016 Instruction Type:Patient Education How to access health informa tion online - Detail Indication:Abnormal glucose tolerance test Start:02-Oct-2016 Instruction Type:Patient Education Patient Instructions Indication:Abnormal glucose tolerance test Start:02-Oct-2016 Instruction Type:Provider Instructions for Treatment How to access health informa tion online Indication:Non-smoker Start:29-May-2016 Instruction Type:Patient Education How to access health informa tion online - Detail Indication:Non-smoker Start:29-May-2016 Instruction Type:Patient Education Patient Instructions Indication:Non-smoker Start:29-May-2016 Instruction Type:Provider Instructions for Treatment Patient Instructions Indication:Abnormal glucose tolerance test Start:21-Feb-2016 Instruction Type:Provider Instructions for Treatment How to access health informa tion online Indication:Abnormal glucose tolerance test Start:21-Feb-2016 Instruction Type:Patient Education How to access health informa tion online - Detail Indication:Abnormal glucose tolerance test Start:21-Feb-2016 Instruction Type:Patient Education How to access health informa tion online Indication:Abnormal glucose tolerance test Start:20-Apr-2015 Instruction Type:Patient Education How to access health informa tion online - Detail Indication:Abnormal glucose tolerance test Start:20-Apr-2015 Instruction Type:Patient Education Patient Instructions Indication:Abnormal glucose tolerance test Start:20-Apr-2015 Instruction Type:Provider Instructions for Treatment How to access health informa tion online Indication:Anxiety Start:19-Dec-2014 Instruction Type:Patient Education How to access health informa tion online - Detail Indication:Anxiety Start:19-Dec-2014 Instruction Type:Patient Education Patient Instructions Indication:Anxiety Start:19-Dec-2014 Instruction Type:Provider Instructions for Treatment Patient Instructions Indication:Encounter for Medicare annual wellness exam Start:18-May-2014 Instruction Type:Provider Instructions for Treatment obesity counseling Indication:Hypertension, benign Start:18-May-2014 Instruction Type:Provider Instructions for Treatment Patient Instructions Indication:Hypertension, benign Start:01-Nov-2013 Instruction Type:Provider Instructions for Treatment Patient Instructions: stop a ltace adn start [facility] for bp Indication:Hypertension, benign Start:19-Apr-2013 Instruction Type:Provider Instructions for Treatment Patient Instructions Indication:Pain in joint involving lower leg Start:07-Dec-2012 Instruction Type:Provider Instructions for Treatment Patient Instructions Indication:Encounter for Medicare annual wellness exam Start:29-Apr-2012 Instruction Type:Provider Instructions for Treatment Patient Instructions Indication:Anxiety Start:16-Apr-2012 Instruction Type:Provider Instructions for Treatment Name Dates Details How to access health informa tion online Indication:Abnormal glucose tolerance test Start:14-Apr-2020 Instruction Type:Patient Education How to access health informa tion online - Detail Indication:Abnormal glucose tolerance test Start:14-Apr-2020 Instruction Type:Patient Education Patient Instructions Indication:Abnormal glucose tolerance test Start:14-Apr-2020 Instruction Type:Provider Instructions for Treatment How to access health informa tion online Indication:Non-smoker Start:10-Apr-2020 Instruction Type:Patient Education How to access health informa tion online - Detail Indication:Non-smoker Start:10-Apr-2020 Instruction Type:Patient Education Patient Instructions Indication:Non-smoker Start:10-Apr-2020 Instruction Type:Provider Instructions for Treatment How to access health informa tion online Indication:Non-smoker Start:26-Nov-2019 Instruction Type:Patient Education How to access health informa tion online - Detail Indication:Non-smoker Start:26-Nov-2019 Instruction Type:Patient Education Patient Instructions Indication:Non-smoker Start:26-Nov-2019 Instruction Type:Provider Instructions for Treatment How to access health informa tion online Indication:Abnormal glucose tolerance test Start:19-Jul-2019 Instruction Type:Patient Education How to access health informa tion online - Detail Indication:Abnormal glucose tolerance test Start:19-Jul-2019 Instruction Type:Patient Education Patient Instructions Indication:Abnormal glucose tolerance test Start:19-Jul-2019 Instruction Type:Provider Instructions for Treatment How to access health informa tion online Indication:Non-smoker Start:09-Jun-2019 Instruction Type:Patient Education How to access health informa tion online - Detail Indication:Non-smoker Start:09-Jun-2019 Instruction Type:Patient Education Patient Instructions Indication:Non-smoker Start:09-Jun-2019 Instruction Type:Provider Instructions for Treatment How to access health informa tion online Indication:Hypertension, benign Start:22-Mar-2019 Instruction Type:Patient Education How to access health informa tion online - Detail Indication:Hypertension, benign Start:22-Mar-2019 Instruction Type:Patient Education Patient Instructions Indication:Hypertension, benign Start:22-Mar-2019 Instruction Type:Provider Instructions for Treatment How to access health informa tion online Indication:Abnormal glucose tolerance test Start:20-Nov-2018 Instruction Type:Patient Education How to access health informa tion online - Detail Indication:Abnormal glucose tolerance test Start:20-Nov-2018 Instruction Type:Patient Education Patient Instructions Indication:Abnormal glucose tolerance test Start:20-Nov-2018 Instruction Type:Provider Instructions for Treatment How to access health informa tion online Indication:BMI 29.0-29.9,adult Start:29-Jun-2018 Instruction Type:Patient Education How to access health informa tion online - Detail Indication:BMI 29.0-29.9,adult Start:29-Jun-2018 Instruction Type:Patient Education Patient Instructions Indication:BMI 29.0-29.9,adult Start:29-Jun-2018 Instruction Type:Provider Instructions for Treatment cardiovascular counseling Indication:CAD, multiple vessel Start:05-Jun-2018 Instruction Type:Provider Instructions for Treatment How to access health informa tion online Indication:Non-smoker Start:05-Jun-2018 Instruction Type:Patient Education How to access health informa tion online - Detail Indication:Non-smoker Start:05-Jun-2018 Instruction Type:Patient Education Patient Instructions Indication:Non-smoker Start:05-Jun-2018 Instruction Type:Provider Instructions for Treatment How to access health informa tion online Indication:Abnormal glucose tolerance test Start:13-Feb-2018 Instruction Type:Patient Education How to access health informa tion online - Detail Indication:Abnormal glucose tolerance test Start:13-Feb-2018 Instruction Type:Patient Education Patient Instructions Indication:Abnormal glucose tolerance test Start:13-Feb-2018 Instruction Type:Provider Instructions for Treatment How to access health informa tion online Indication:Abnormal glucose tolerance test Start:13-Oct-2017 Instruction Type:Patient Education How to access health informa tion online - Detail Indication:Abnormal glucose tolerance test Start:13-Oct-2017 Instruction Type:Patient Education Patient Instructions Indication:Abnormal glucose tolerance test Start:13-Oct-2017 Instruction Type:Provider Instructions for Treatment How to access health informa tion online Indication:BMI 29.0-29.9,adult Start:21-Aug-2017 Instruction Type:Patient Education How to access health informa tion online - Detail Indication:BMI 29.0-29.9,adult Start:21-Aug-2017 Instruction Type:Patient Education Patient Instructions Indication:BMI 29.0-29.9,adult Start:21-Aug-2017 Instruction Type:Provider Instructions for Treatment How to access health informa tion online Indication:Abnormal glucose tolerance test Start:11-Jun-2017 Instruction Type:Patient Education How to access health informa tion online - Detail Indication:Abnormal glucose tolerance test Start:11-Jun-2017 Instruction Type:Patient Education Patient Instructions Indication:Abnormal glucose tolerance test Start:11-Jun-2017 Instruction Type:Provider Instructions for Treatment How to access health informa tion online Indication:BMI 29.0-29.9,adult Start:30-May-2017 Instruction Type:Patient Education How to access health informa tion online - Detail Indication:BMI 29.0-29.9,adult Start:30-May-2017 Instruction Type:Patient Education Patient Instructions Indication:BMI 29.0-29.9,adult Start:30-May-2017 Instruction Type:Provider Instructions for Treatment How to access health informa tion online Indication:BMI 27.0-27.9,adult Start:05-Feb-2017 Instruction Type:Patient Education How to access health informa tion online - Detail Indication:BMI 27.0-27.9,adult Start:05-Feb-2017 Instruction Type:Patient Education Patient Instructions Indication:BMI 27.0-27.9,adult Start:05-Feb-2017 Instruction Type:Provider Instructions for Treatment How to access health informa tion online Indication:Non-smoker Start:23-Oct-2016 Instruction Type:Patient Education How to access health informa tion online - Detail Indication:Non-smoker Start:23-Oct-2016 Instruction Type:Patient Education Patient Instructions Indication:Non-smoker Start:23-Oct-2016 Instruction Type:Provider Instructions for Treatment How to access health informa tion online Indication:Abnormal glucose tolerance test Start:02-Oct-2016 Instruction Type:Patient Education How to access health informa tion online - Detail Indication:Abnormal glucose tolerance test Start:02-Oct-2016 Instruction Type:Patient Education Patient Instructions Indication:Abnormal glucose tolerance test Start:02-Oct-2016 Instruction Type:Provider Instructions for Treatment How to access health informa tion online Indication:Non-smoker Start:29-May-2016 Instruction Type:Patient Education How to access health informa tion online - Detail Indication:Non-smoker Start:29-May-2016 Instruction Type:Patient Education Patient Instructions Indication:Non-smoker Start:29-May-2016 Instruction Type:Provider Instructions for Treatment Patient Instructions Indication:Abnormal glucose tolerance test Start:21-Feb-2016 Instruction Type:Provider Instructions for Treatment How to access health informa tion online Indication:Abnormal glucose tolerance test Start:21-Feb-2016 Instruction Type:Patient Education How to access health informa tion online - Detail Indication:Abnormal glucose tolerance test Start:21-Feb-2016 Instruction Type:Patient Education How to access health informa tion online Indication:Abnormal glucose tolerance test Start:20-Apr-2015 Instruction Type:Patient Education How to access health informa tion online - Detail Indication:Abnormal glucose tolerance test Start:20-Apr-2015 Instruction Type:Patient Education Patient Instructions Indication:Abnormal glucose tolerance test Start:20-Apr-2015 Instruction Type:Provider Instructions for Treatment How to access health informa tion online Indication:Anxiety Start:19-Dec-2014 Instruction Type:Patient Education How to access health informa tion online - Detail Indication:Anxiety Start:19-Dec-2014 Instruction Type:Patient Education Patient Instructions Indication:Anxiety Start:19-Dec-2014 Instruction Type:Provider Instructions for Treatment Patient Instructions Indication:Encounter for Medicare annual wellness exam Start:18-May-2014 Instruction Type:Provider Instructions for Treatment obesity counseling Indication:Hypertension, benign Start:18-May-2014 Instruction Type:Provider Instructions for Treatment Patient Instructions Indication:Hypertension, benign Start:01-Nov-2013 Instruction Type:Provider Instructions for Treatment Patient Instructions: stop a ltace adn start norvasc for bp Indication:Hypertension, benign Start:19-Apr-2013 Instruction Type:Provider Instructions for Treatment Patient Instructions Indication:Pain in joint involving lower leg Start:07-Dec-2012 Instruction Type:Provider Instructions for Treatment Patient Instructions Indication:Encounter for Medicare annual wellness exam Start:29-Apr-2012 Instruction Type:Provider Instructions for Treatment Patient Instructions Indication:Anxiety Start:16-Apr-2012 Instruction Type:Provider Instructions for Treatment Name Dates Details How to access health informa tion online Indication:Abnormal glucose tolerance test Start:14-Apr-2020 Instruction Type:Patient Education How to access health informa tion online - Detail Indication:Abnormal glucose tolerance test Start:14-Apr-2020 Instruction Type:Patient Education Patient Instructions Indication:Abnormal glucose tolerance test Start:14-Apr-2020 Instruction Type:Provider Instructions for Treatment How to access health informa tion online Indication:Non-smoker Start:10-Apr-2020 Instruction Type:Patient Education How to access health informa tion online - Detail Indication:Non-smoker Start:10-Apr-2020 Instruction Type:Patient Education Patient Instructions Indication:Non-smoker Start:10-Apr-2020 Instruction Type:Provider Instructions for Treatment How to access health informa tion online Indication:Non-smoker Start:26-Nov-2019 Instruction Type:Patient Education How to access health informa tion online - Detail Indication:Non-smoker Start:26-Nov-2019 Instruction Type:Patient Education Patient Instructions Indication:Non-smoker Start:26-Nov-2019 Instruction Type:Provider Instructions for Treatment How to access health informa tion online Indication:Abnormal glucose tolerance test Start:19-Jul-2019 Instruction Type:Patient Education How to access health informa tion online - Detail Indication:Abnormal glucose tolerance test Start:19-Jul-2019 Instruction Type:Patient Education Patient Instructions Indication:Abnormal glucose tolerance test Start:19-Jul-2019 Instruction Type:Provider Instructions for Treatment How to access health informa tion online Indication:Non-smoker Start:09-Jun-2019 Instruction Type:Patient Education How to access health informa tion online - Detail Indication:Non-smoker Start:09-Jun-2019 Instruction Type:Patient Education Patient Instructions Indication:Non-smoker Start:09-Jun-2019 Instruction Type:Provider Instructions for Treatment How to access health informa tion online Indication:Hypertension, benign Start:22-Mar-2019 Instruction Type:Patient Education How to access health informa tion online - Detail Indication:Hypertension, benign Start:22-Mar-2019 Instruction Type:Patient Education Patient Instructions Indication:Hypertension, benign Start:22-Mar-2019 Instruction Type:Provider Instructions for Treatment How to access health informa tion online Indication:Abnormal glucose tolerance test Start:20-Nov-2018 Instruction Type:Patient Education How to access health informa tion online - Detail Indication:Abnormal glucose tolerance test Start:20-Nov-2018 Instruction Type:Patient Education Patient Instructions Indication:Abnormal glucose tolerance test Start:20-Nov-2018 Instruction Type:Provider Instructions for Treatment How to access health informa tion online Indication:BMI 29.0-29.9,adult Start:29-Jun-2018 Instruction Type:Patient Education How to access health informa tion online - Detail Indication:BMI 29.0-29.9,adult Start:29-Jun-2018 Instruction Type:Patient Education Patient Instructions Indication:BMI 29.0-29.9,adult Start:29-Jun-2018 Instruction Type:Provider Instructions for Treatment cardiovascular counseling Indication:CAD, multiple vessel Start:05-Jun-2018 Instruction Type:Provider Instructions for Treatment How to access health informa tion online Indication:Non-smoker Start:05-Jun-2018 Instruction Type:Patient Education How to access health informa tion online - Detail Indication:Non-smoker Start:05-Jun-2018 Instruction Type:Patient Education Patient Instructions Indication:Non-smoker Start:05-Jun-2018 Instruction Type:Provider Instructions for Treatment How to access health informa tion online Indication:Abnormal glucose tolerance test Start:13-Feb-2018 Instruction Type:Patient Education How to access health informa tion online - Detail Indication:Abnormal glucose tolerance test Start:13-Feb-2018 Instruction Type:Patient Education Patient Instructions Indication:Abnormal glucose tolerance test Start:13-Feb-2018 Instruction Type:Provider Instructions for Treatment How to access health informa tion online Indication:Abnormal glucose tolerance test Start:13-Oct-2017 Instruction Type:Patient Education How to access health informa tion online - Detail Indication:Abnormal glucose tolerance test Start:13-Oct-2017 Instruction Type:Patient Education Patient Instructions Indication:Abnormal glucose tolerance test Start:13-Oct-2017 Instruction Type:Provider Instructions for Treatment How to access health informa tion online Indication:BMI 29.0-29.9,adult Start:21-Aug-2017 Instruction Type:Patient Education How to access health informa tion online - Detail Indication:BMI 29.0-29.9,adult Start:21-Aug-2017 Instruction Type:Patient Education Patient Instructions Indication:BMI 29.0-29.9,adult Start:21-Aug-2017 Instruction Type:Provider Instructions for Treatment How to access health informa tion online Indication:Abnormal glucose tolerance test Start:11-Jun-2017 Instruction Type:Patient Education How to access health informa tion online - Detail Indication:Abnormal glucose tolerance test Start:11-Jun-2017 Instruction Type:Patient Education Patient Instructions Indication:Abnormal glucose tolerance test Start:11-Jun-2017 Instruction Type:Provider Instructions for Treatment How to access health informa tion online Indication:BMI 29.0-29.9,adult Start:30-May-2017 Instruction Type:Patient Education How to access health informa tion online - Detail Indication:BMI 29.0-29.9,adult Start:30-May-2017 Instruction Type:Patient Education Patient Instructions Indication:BMI 29.0-29.9,adult Start:30-May-2017 Instruction Type:Provider Instructions for Treatment How to access health informa tion online Indication:BMI 27.0-27.9,adult Start:05-Feb-2017 Instruction Type:Patient Education How to access health informa tion online - Detail Indication:BMI 27.0-27.9,adult Start:05-Feb-2017 Instruction Type:Patient Education Patient Instructions Indication:BMI 27.0-27.9,adult Start:05-Feb-2017 Instruction Type:Provider Instructions for Treatment How to access health informa tion online Indication:Non-smoker Start:23-Oct-2016 Instruction Type:Patient Education How to access health informa tion online - Detail Indication:Non-smoker Start:23-Oct-2016 Instruction Type:Patient Education Patient Instructions Indication:Non-smoker Start:23-Oct-2016 Instruction Type:Provider Instructions for Treatment How to access health informa tion online Indication:Abnormal glucose tolerance test Start:02-Oct-2016 Instruction Type:Patient Education How to access health informa tion online - Detail Indication:Abnormal glucose tolerance test Start:02-Oct-2016 Instruction Type:Patient Education Patient Instructions Indication:Abnormal glucose tolerance test Start:02-Oct-2016 Instruction Type:Provider Instructions for Treatment How to access health informa tion online Indication:Non-smoker Start:29-May-2016 Instruction Type:Patient Education How to access health informa tion online - Detail Indication:Non-smoker Start:29-May-2016 Instruction Type:Patient Education Patient Instructions Indication:Non-smoker Start:29-May-2016 Instruction Type:Provider Instructions for Treatment Patient Instructions Indication:Abnormal glucose tolerance test Start:21-Feb-2016 Instruction Type:Provider Instructions for Treatment How to access health informa tion online Indication:Abnormal glucose tolerance test Start:21-Feb-2016 Instruction Type:Patient Education How to access health informa tion online - Detail Indication:Abnormal glucose tolerance test Start:21-Feb-2016 Instruction Type:Patient Education How to access health informa tion online Indication:Abnormal glucose tolerance test Start:20-Apr-2015 Instruction Type:Patient Education How to access health informa tion online - Detail Indication:Abnormal glucose tolerance test Start:20-Apr-2015 Instruction Type:Patient Education Patient Instructions Indication:Abnormal glucose tolerance test Start:20-Apr-2015 Instruction Type:Provider Instructions for Treatment How to access health informa tion online Indication:Anxiety Start:19-Dec-2014 Instruction Type:Patient Education How to access health informa tion online - Detail Indication:Anxiety Start:19-Dec-2014 Instruction Type:Patient Education Patient Instructions Indication:Anxiety Start:19-Dec-2014 Instruction Type:Provider Instructions for Treatment Patient Instructions Indication:Encounter for Medicare annual wellness exam Start:18-May-2014 Instruction Type:Provider Instructions for Treatment obesity counseling Indication:Hypertension, benign Start:18-May-2014 Instruction Type:Provider Instructions for Treatment Patient Instructions Indication:Hypertension, benign Start:01-Nov-2013 Instruction Type:Provider Instructions for Treatment Patient Instructions: stop a ltace adn start norvasc for bp Indication:Hypertension, benign Start:19-Apr-2013 Instruction Type:Provider Instructions for Treatment Patient Instructions Indication:Pain in joint involving lower leg Start:07-Dec-2012 Instruction Type:Provider Instructions for Treatment Patient Instructions Indication:Encounter for Medicare annual wellness exam Start:29-Apr-2012 Instruction Type:Provider Instructions for Treatment Patient Instructions Indication:Anxiety Start:16-Apr-2012 Instruction Type:Provider Instructions for Treatment Name Dates Details cardiovascular counseling Indication:CAD, multiple vessel Start:12-Jun-2020 Instruction Type:Provider Instructions for Treatment obesity counseling Indication:Abnormal glucose tolerance test Start:12-Jun-2020 Instruction Type:Provider Instructions for Treatment Patient Instructions Indication:Non-smoker Start:12-Jun-2020 Instruction Type:Provider Instructions for Treatment How to Access Health Informa tion Online using Patient Portal and [employer] Apps Indication:Non-smoker Start:12-Jun-2020 Instruction Type:Patient Education How to access health informa tion online Indication:Abnormal glucose tolerance test Start:14-Apr-2020 Instruction Type:Patient Education How to access health informa tion online - Detail Indication:Abnormal glucose tolerance test Start:14-Apr-2020 Instruction Type:Patient Education Patient Instructions Indication:Abnormal glucose tolerance test Start:14-Apr-2020 Instruction Type:Provider Instructions for Treatment How to access health informa tion online Indication:Non-smoker Start:10-Apr-2020 Instruction Type:Patient Education How to access health informa tion online - Detail Indication:Non-smoker Start:10-Apr-2020 Instruction Type:Patient Education Patient Instructions Indication:Non-smoker Start:10-Apr-2020 Instruction Type:Provider Instructions for Treatment How to access health informa tion online Indication:Non-smoker Start:26-Nov-2019 Instruction Type:Patient Education How to access health informa tion online - Detail Indication:Non-smoker Start:26-Nov-2019 Instruction Type:Patient Education Patient Instructions Indication:Non-smoker Start:26-Nov-2019 Instruction Type:Provider Instructions for Treatment How to access health informa tion online Indication:Abnormal glucose tolerance test Start:19-Jul-2019 Instruction Type:Patient Education How to access health informa tion online - Detail Indication:Abnormal glucose tolerance test Start:19-Jul-2019 Instruction Type:Patient Education Patient Instructions Indication:Abnormal glucose tolerance test Start:19-Jul-2019 Instruction Type:Provider Instructions for Treatment How to access health informa tion online Indication:Non-smoker Start:09-Jun-2019 Instruction Type:Patient Education How to access health informa tion online - Detail Indication:Non-smoker Start:09-Jun-2019 Instruction Type:Patient Education Patient Instructions Indication:Non-smoker Start:09-Jun-2019 Instruction Type:Provider Instructions for Treatment How to access health informa tion online Indication:Hypertension, benign Start:22-Mar-2019 Instruction Type:Patient Education How to access health informa tion online - Detail Indication:Hypertension, benign Start:22-Mar-2019 Instruction Type:Patient Education Patient Instructions Indication:Hypertension, benign Start:22-Mar-2019 Instruction Type:Provider Instructions for Treatment How to access health informa tion online Indication:Abnormal glucose tolerance test Start:20-Nov-2018 Instruction Type:Patient Education How to access health informa tion online - Detail Indication:Abnormal glucose tolerance test Start:20-Nov-2018 Instruction Type:Patient Education Patient Instructions Indication:Abnormal glucose tolerance test Start:20-Nov-2018 Instruction Type:Provider Instructions for Treatment How to access health informa tion online Indication:BMI 29.0-29.9,adult Start:29-Jun-2018 Instruction Type:Patient Education How to access health informa tion online - Detail Indication:BMI 29.0-29.9,adult Start:29-Jun-2018 Instruction Type:Patient Education Patient Instructions Indication:BMI 29.0-29.9,adult Start:29-Jun-2018 Instruction Type:Provider Instructions for Treatment cardiovascular counseling Indication:CAD, multiple vessel Start:05-Jun-2018 Instruction Type:Provider Instructions for Treatment How to access health informa tion online Indication:Non-smoker Start:05-Jun-2018 Instruction Type:Patient Education How to access health informa tion online - Detail Indication:Non-smoker Start:05-Jun-2018 Instruction Type:Patient Education Patient Instructions Indication:Non-smoker Start:05-Jun-2018 Instruction Type:Provider Instructions for Treatment How to access health informa tion online Indication:Abnormal glucose tolerance test Start:13-Feb-2018 Instruction Type:Patient Education How to access health informa tion online - Detail Indication:Abnormal glucose tolerance test Start:13-Feb-2018 Instruction Type:Patient Education Patient Instructions Indication:Abnormal glucose tolerance test Start:13-Feb-2018 Instruction Type:Provider Instructions for Treatment How to access health informa tion online Indication:Abnormal glucose tolerance test Start:13-Oct-2017 Instruction Type:Patient Education How to access health informa tion online - Detail Indication:Abnormal glucose tolerance test Start:13-Oct-2017 Instruction Type:Patient Education Patient Instructions Indication:Abnormal glucose tolerance test Start:13-Oct-2017 Instruction Type:Provider Instructions for Treatment How to access health informa tion online Indication:BMI 29.0-29.9,adult Start:21-Aug-2017 Instruction Type:Patient Education How to access health informa tion online - Detail Indication:BMI 29.0-29.9,adult Start:21-Aug-2017 Instruction Type:Patient Education Patient Instructions Indication:BMI 29.0-29.9,adult Start:21-Aug-2017 Instruction Type:Provider Instructions for Treatment How to access health informa tion online Indication:Abnormal glucose tolerance test Start:11-Jun-2017 Instruction Type:Patient Education How to access health informa tion online - Detail Indication:Abnormal glucose tolerance test Start:11-Jun-2017 Instruction Type:Patient Education Patient Instructions Indication:Abnormal glucose tolerance test Start:11-Jun-2017 Instruction Type:Provider Instructions for Treatment How to access health informa tion online Indication:BMI 29.0-29.9,adult Start:30-May-2017 Instruction Type:Patient Education How to access health informa tion online - Detail Indication:BMI 29.0-29.9,adult Start:30-May-2017 Instruction Type:Patient Education Patient Instructions Indication:BMI 29.0-29.9,adult Start:30-May-2017 Instruction Type:Provider Instructions for Treatment How to access health informa tion online Indication:BMI 27.0-27.9,adult Start:05-Feb-2017 Instruction Type:Patient Education How to access health informa tion online - Detail Indication:BMI 27.0-27.9,adult Start:05-Feb-2017 Instruction Type:Patient Education Patient Instructions Indication:BMI 27.0-27.9,adult Start:05-Feb-2017 Instruction Type:Provider Instructions for Treatment How to access health informa tion online Indication:Non-smoker Start:23-Oct-2016 Instruction Type:Patient Education How to access health informa tion online - Detail Indication:Non-smoker Start:23-Oct-2016 Instruction Type:Patient Education Patient Instructions Indication:Non-smoker Start:23-Oct-2016 Instruction Type:Provider Instructions for Treatment How to access health informa tion online Indication:Abnormal glucose tolerance test Start:02-Oct-2016 Instruction Type:Patient Education How to access health informa tion online - Detail Indication:Abnormal glucose tolerance test Start:02-Oct-2016 Instruction Type:Patient Education Patient Instructions Indication:Abnormal glucose tolerance test Start:02-Oct-2016 Instruction Type:Provider Instructions for Treatment How to access health informa tion online Indication:Non-smoker Start:29-May-2016 Instruction Type:Patient Education How to access health informa tion online - Detail Indication:Non-smoker Start:29-May-2016 Instruction Type:Patient Education Patient Instructions Indication:Non-smoker Start:29-May-2016 Instruction Type:Provider Instructions for Treatment Patient Instructions Indication:Abnormal glucose tolerance test Start:21-Feb-2016 Instruction Type:Provider Instructions for Treatment How to access health informa tion online Indication:Abnormal glucose tolerance test Start:21-Feb-2016 Instruction Type:Patient Education How to access health informa tion online - Detail Indication:Abnormal glucose tolerance test Start:21-Feb-2016 Instruction Type:Patient Education How to access health informa tion online Indication:Abnormal glucose tolerance test Start:20-Apr-2015 Instruction Type:Patient Education How to access health informa tion online - Detail Indication:Abnormal glucose tolerance test Start:20-Apr-2015 Instruction Type:Patient Education Patient Instructions Indication:Abnormal glucose tolerance test Start:20-Apr-2015 Instruction Type:Provider Instructions for Treatment How to access health informa tion online Indication:Anxiety Start:19-Dec-2014 Instruction Type:Patient Education How to access health informa tion online - Detail Indication:Anxiety Start:19-Dec-2014 Instruction Type:Patient Education Patient Instructions Indication:Anxiety Start:19-Dec-2014 Instruction Type:Provider Instructions for Treatment Patient Instructions Indication:Encounter for Medicare annual wellness exam Start:18-May-2014 Instruction Type:Provider Instructions for Treatment obesity counseling Indication:Hypertension, benign Start:18-May-2014 Instruction Type:Provider Instructions for Treatment Patient Instructions Indication:Hypertension, benign Start:01-Nov-2013 Instruction Type:Provider Instructions for Treatment Patient Instructions: stop a ltace adn start norvasc for bp Indication:Hypertension, benign Start:19-Apr-2013 Instruction Type:Provider Instructions for Treatment Patient Instructions Indication:Pain in joint involving lower leg Start:07-Dec-2012 Instruction Type:Provider Instructions for Treatment Patient Instructions Indication:Encounter for Medicare annual wellness exam Start:29-Apr-2012 Instruction Type:Provider Instructions for Treatment Patient Instructions Indication:Anxiety Start:16-Apr-2012 Instruction Type:Provider Instructions for Treatment Name Dates Details cardiovascular counseling Indication:CAD, multiple vessel Start:12-Jun-2020 Instruction Type:Provider Instructions for Treatment obesity counseling Indication:Abnormal glucose tolerance test Start:12-Jun-2020 Instruction Type:Provider Instructions for Treatment Patient Instructions Indication:Non-smoker Start:12-Jun-2020 Instruction Type:Provider Instructions for Treatment How to Access Health Informa tion Online using Patient Portal and [employer] Apps Indication:Non-smoker Start:12-Jun-2020 Instruction Type:Patient Education How to access health informa tion online Indication:Abnormal glucose tolerance test Start:14-Apr-2020 Instruction Type:Patient Education How to access health informa tion online - Detail Indication:Abnormal glucose tolerance test Start:14-Apr-2020 Instruction Type:Patient Education Patient Instructions Indication:Abnormal glucose tolerance test Start:14-Apr-2020 Instruction Type:Provider Instructions for Treatment How to access health informa tion online Indication:Non-smoker Start:10-Apr-2020 Instruction Type:Patient Education How to access health informa tion online - Detail Indication:Non-smoker Start:10-Apr-2020 Instruction Type:Patient Education Patient Instructions Indication:Non-smoker Start:10-Apr-2020 Instruction Type:Provider Instructions for Treatment How to access health informa tion online Indication:Non-smoker Start:26-Nov-2019 Instruction Type:Patient Education How to access health informa tion online - Detail Indication:Non-smoker Start:26-Nov-2019 Instruction Type:Patient Education Patient Instructions Indication:Non-smoker Start:26-Nov-2019 Instruction Type:Provider Instructions for Treatment How to access health informa tion online Indication:Abnormal glucose tolerance test Start:19-Jul-2019 Instruction Type:Patient Education How to access health informa tion online - Detail Indication:Abnormal glucose tolerance test Start:19-Jul-2019 Instruction Type:Patient Education Patient Instructions Indication:Abnormal glucose tolerance test Start:19-Jul-2019 Instruction Type:Provider Instructions for Treatment How to access health informa tion online Indication:Non-smoker Start:09-Jun-2019 Instruction Type:Patient Education How to access health informa tion online - Detail Indication:Non-smoker Start:09-Jun-2019 Instruction Type:Patient Education Patient Instructions Indication:Non-smoker Start:09-Jun-2019 Instruction Type:Provider Instructions for Treatment How to access health informa tion online Indication:Hypertension, benign Start:22-Mar-2019 Instruction Type:Patient Education How to access health informa tion online - Detail Indication:Hypertension, benign Start:22-Mar-2019 Instruction Type:Patient Education Patient Instructions Indication:Hypertension, benign Start:22-Mar-2019 Instruction Type:Provider Instructions for Treatment How to access health informa tion online Indication:Abnormal glucose tolerance test Start:20-Nov-2018 Instruction Type:Patient Education How to access health informa tion online - Detail Indication:Abnormal glucose tolerance test Start:20-Nov-2018 Instruction Type:Patient Education Patient Instructions Indication:Abnormal glucose tolerance test Start:20-Nov-2018 Instruction Type:Provider Instructions for Treatment How to access health informa tion online Indication:BMI 29.0-29.9,adult Start:29-Jun-2018 Instruction Type:Patient Education How to access health informa tion online - Detail Indication:BMI 29.0-29.9,adult Start:29-Jun-2018 Instruction Type:Patient Education Patient Instructions Indication:BMI 29.0-29.9,adult Start:29-Jun-2018 Instruction Type:Provider Instructions for Treatment cardiovascular counseling Indication:CAD, multiple vessel Start:05-Jun-2018 Instruction Type:Provider Instructions for Treatment How to access health informa tion online Indication:Non-smoker Start:05-Jun-2018 Instruction Type:Patient Education How to access health informa tion online - Detail Indication:Non-smoker Start:05-Jun-2018 Instruction Type:Patient Education Patient Instructions Indication:Non-smoker Start:05-Jun-2018 Instruction Type:Provider Instructions for Treatment How to access health informa tion online Indication:Abnormal glucose tolerance test Start:13-Feb-2018 Instruction Type:Patient Education How to access health informa tion online - Detail Indication:Abnormal glucose tolerance test Start:13-Feb-2018 Instruction Type:Patient Education Patient Instructions Indication:Abnormal glucose tolerance test Start:13-Feb-2018 Instruction Type:Provider Instructions for Treatment How to access health informa tion online Indication:Abnormal glucose tolerance test Start:13-Oct-2017 Instruction Type:Patient Education How to access health informa tion online - Detail Indication:Abnormal glucose tolerance test Start:13-Oct-2017 Instruction Type:Patient Education Patient Instructions Indication:Abnormal glucose tolerance test Start:13-Oct-2017 Instruction Type:Provider Instructions for Treatment How to access health informa tion online Indication:BMI 29.0-29.9,adult Start:21-Aug-2017 Instruction Type:Patient Education How to access health informa tion online - Detail Indication:BMI 29.0-29.9,adult Start:21-Aug-2017 Instruction Type:Patient Education Patient Instructions Indication:BMI 29.0-29.9,adult Start:21-Aug-2017 Instruction Type:Provider Instructions for Treatment How to access health informa tion online Indication:Abnormal glucose tolerance test Start:11-Jun-2017 Instruction Type:Patient Education How to access health informa tion online - Detail Indication:Abnormal glucose tolerance test Start:11-Jun-2017 Instruction Type:Patient Education Patient Instructions Indication:Abnormal glucose tolerance test Start:11-Jun-2017 Instruction Type:Provider Instructions for Treatment How to access health informa tion online Indication:BMI 29.0-29.9,adult Start:30-May-2017 Instruction Type:Patient Education How to access health informa tion online - Detail Indication:BMI 29.0-29.9,adult Start:30-May-2017 Instruction Type:Patient Education Patient Instructions Indication:BMI 29.0-29.9,adult Start:30-May-2017 Instruction Type:Provider Instructions for Treatment How to access health informa tion online Indication:BMI 27.0-27.9,adult Start:05-Feb-2017 Instruction Type:Patient Education How to access health informa tion online - Detail Indication:BMI 27.0-27.9,adult Start:05-Feb-2017 Instruction Type:Patient Education Patient Instructions Indication:BMI 27.0-27.9,adult Start:05-Feb-2017 Instruction Type:Provider Instructions for Treatment How to access health informa tion online Indication:Non-smoker Start:23-Oct-2016 Instruction Type:Patient Education How to access health informa tion online - Detail Indication:Non-smoker Start:23-Oct-2016 Instruction Type:Patient Education Patient Instructions Indication:Non-smoker Start:23-Oct-2016 Instruction Type:Provider Instructions for Treatment How to access health informa tion online Indication:Abnormal glucose tolerance test Start:02-Oct-2016 Instruction Type:Patient Education How to access health informa tion online - Detail Indication:Abnormal glucose tolerance test Start:02-Oct-2016 Instruction Type:Patient Education Patient Instructions Indication:Abnormal glucose tolerance test Start:02-Oct-2016 Instruction Type:Provider Instructions for Treatment How to access health informa tion online Indication:Non-smoker Start:29-May-2016 Instruction Type:Patient Education How to access health informa tion online - Detail Indication:Non-smoker Start:29-May-2016 Instruction Type:Patient Education Patient Instructions Indication:Non-smoker Start:29-May-2016 Instruction Type:Provider Instructions for Treatment Patient Instructions Indication:Abnormal glucose tolerance test Start:21-Feb-2016 Instruction Type:Provider Instructions for Treatment How to access health informa tion online Indication:Abnormal glucose tolerance test Start:21-Feb-2016 Instruction Type:Patient Education How to access health informa tion online - Detail Indication:Abnormal glucose tolerance test Start:21-Feb-2016 Instruction Type:Patient Education How to access health informa tion online Indication:Abnormal glucose tolerance test Start:20-Apr-2015 Instruction Type:Patient Education How to access health informa tion online - Detail Indication:Abnormal glucose tolerance test Start:20-Apr-2015 Instruction Type:Patient Education Patient Instructions Indication:Abnormal glucose tolerance test Start:20-Apr-2015 Instruction Type:Provider Instructions for Treatment How to access health informa tion online Indication:Anxiety Start:19-Dec-2014 Instruction Type:Patient Education How to access health informa tion online - Detail Indication:Anxiety Start:19-Dec-2014 Instruction Type:Patient Education Patient Instructions Indication:Anxiety Start:19-Dec-2014 Instruction Type:Provider Instructions for Treatment Patient Instructions Indication:Encounter for Medicare annual wellness exam Start:18-May-2014 Instruction Type:Provider Instructions for Treatment obesity counseling Indication:Hypertension, benign Start:18-May-2014 Instruction Type:Provider Instructions for Treatment Patient Instructions Indication:Hypertension, benign Start:01-Nov-2013 Instruction Type:Provider Instructions for Treatment Patient Instructions: stop a ltace adn start norvasc for bp Indication:Hypertension, benign Start:19-Apr-2013 Instruction Type:Provider Instructions for Treatment Patient Instructions Indication:Pain in joint involving lower leg Start:07-Dec-2012 Instruction Type:Provider Instructions for Treatment Patient Instructions Indication:Encounter for Medicare annual wellness exam Start:29-Apr-2012 Instruction Type:Provider Instructions for Treatment Patient Instructions Indication:Anxiety Start:16-Apr-2012 Instruction Type:Provider Instructions for Treatment Name Dates Details How to Access Health Informa tion Online using Patient Portal and [employer] Apps Indication:Non-smoker Start:09-Aug-2020 Instruction Type:Patient Education Patient Instructions Indication:Non-smoker Start:09-Aug-2020 Instruction Type:Provider Instructions for Treatment cardiovascular counseling Indication:CAD, multiple vessel Start:12-Jun-2020 Instruction Type:Provider Instructions for Treatment obesity counseling Indication:Abnormal glucose tolerance test Start:12-Jun-2020 Instruction Type:Provider Instructions for Treatment Patient Instructions Indication:Non-smoker Start:12-Jun-2020 Instruction Type:Provider Instructions for Treatment How to Access Health Informa tion Online using Patient Portal and [employer] Apps Indication:Non-smoker Start:12-Jun-2020 Instruction Type:Patient Education How to access health informa tion online Indication:Abnormal glucose tolerance test Start:14-Apr-2020 Instruction Type:Patient Education How to access health informa tion online - Detail Indication:Abnormal glucose tolerance test Start:14-Apr-2020 Instruction Type:Patient Education Patient Instructions Indication:Abnormal glucose tolerance test Start:14-Apr-2020 Instruction Type:Provider Instructions for Treatment How to access health informa tion online Indication:Non-smoker Start:10-Apr-2020 Instruction Type:Patient Education How to access health informa tion online - Detail Indication:Non-smoker Start:10-Apr-2020 Instruction Type:Patient Education Patient Instructions Indication:Non-smoker Start:10-Apr-2020 Instruction Type:Provider Instructions for Treatment How to access health informa tion online Indication:Non-smoker Start:26-Nov-2019 Instruction Type:Patient Education How to access health informa tion online - Detail Indication:Non-smoker Start:26-Nov-2019 Instruction Type:Patient Education Patient Instructions Indication:Non-smoker Start:26-Nov-2019 Instruction Type:Provider Instructions for Treatment How to access health informa tion online Indication:Abnormal glucose tolerance test Start:19-Jul-2019 Instruction Type:Patient Education How to access health informa tion online - Detail Indication:Abnormal glucose tolerance test Start:19-Jul-2019 Instruction Type:Patient Education Patient Instructions Indication:Abnormal glucose tolerance test Start:19-Jul-2019 Instruction Type:Provider Instructions for Treatment How to access health informa tion online Indication:Non-smoker Start:09-Jun-2019 Instruction Type:Patient Education How to access health informa tion online - Detail Indication:Non-smoker Start:09-Jun-2019 Instruction Type:Patient Education Patient Instructions Indication:Non-smoker Start:09-Jun-2019 Instruction Type:Provider Instructions for Treatment How to access health informa tion online Indication:Hypertension, benign Start:22-Mar-2019 Instruction Type:Patient Education How to access health informa tion online - Detail Indication:Hypertension, benign Start:22-Mar-2019 Instruction Type:Patient Education Patient Instructions Indication:Hypertension, benign Start:22-Mar-2019 Instruction Type:Provider Instructions for Treatment How to access health informa tion online Indication:Abnormal glucose tolerance test Start:20-Nov-2018 Instruction Type:Patient Education How to access health informa tion online - Detail Indication:Abnormal glucose tolerance test Start:20-Nov-2018 Instruction Type:Patient Education Patient Instructions Indication:Abnormal glucose tolerance test Start:20-Nov-2018 Instruction Type:Provider Instructions for Treatment How to access health informa tion online Indication:BMI 29.0-29.9,adult Start:29-Jun-2018 Instruction Type:Patient Education How to access health informa tion online - Detail Indication:BMI 29.0-29.9,adult Start:29-Jun-2018 Instruction Type:Patient Education Patient Instructions Indication:BMI 29.0-29.9,adult Start:29-Jun-2018 Instruction Type:Provider Instructions for Treatment cardiovascular counseling Indication:CAD, multiple vessel Start:05-Jun-2018 Instruction Type:Provider Instructions for Treatment How to access health informa tion online Indication:Non-smoker Start:05-Jun-2018 Instruction Type:Patient Education How to access health informa tion online - Detail Indication:Non-smoker Start:05-Jun-2018 Instruction Type:Patient Education Patient Instructions Indication:Non-smoker Start:05-Jun-2018 Instruction Type:Provider Instructions for Treatment How to access health informa tion online Indication:Abnormal glucose tolerance test Start:13-Feb-2018 Instruction Type:Patient Education How to access health informa tion online - Detail Indication:Abnormal glucose tolerance test Start:13-Feb-2018 Instruction Type:Patient Education Patient Instructions Indication:Abnormal glucose tolerance test Start:13-Feb-2018 Instruction Type:Provider Instructions for Treatment How to access health informa tion online Indication:Abnormal glucose tolerance test Start:13-Oct-2017 Instruction Type:Patient Education How to access health informa tion online - Detail Indication:Abnormal glucose tolerance test Start:13-Oct-2017 Instruction Type:Patient Education Patient Instructions Indication:Abnormal glucose tolerance test Start:13-Oct-2017 Instruction Type:Provider Instructions for Treatment How to access health informa tion online Indication:BMI 29.0-29.9,adult Start:21-Aug-2017 Instruction Type:Patient Education How to access health informa tion online - Detail Indication:BMI 29.0-29.9,adult Start:21-Aug-2017 Instruction Type:Patient Education Patient Instructions Indication:BMI 29.0-29.9,adult Start:21-Aug-2017 Instruction Type:Provider Instructions for Treatment How to access health informa tion online Indication:Abnormal glucose tolerance test Start:11-Jun-2017 Instruction Type:Patient Education How to access health informa tion online - Detail Indication:Abnormal glucose tolerance test Start:11-Jun-2017 Instruction Type:Patient Education Patient Instructions Indication:Abnormal glucose tolerance test Start:11-Jun-2017 Instruction Type:Provider Instructions for Treatment How to access health informa tion online Indication:BMI 29.0-29.9,adult Start:30-May-2017 Instruction Type:Patient Education How to access health informa tion online - Detail Indication:BMI 29.0-29.9,adult Start:30-May-2017 Instruction Type:Patient Education Patient Instructions Indication:BMI 29.0-29.9,adult Start:30-May-2017 Instruction Type:Provider Instructions for Treatment How to access health informa tion online Indication:BMI 27.0-27.9,adult Start:05-Feb-2017 Instruction Type:Patient Education How to access health informa tion online - Detail Indication:BMI 27.0-27.9,adult Start:05-Feb-2017 Instruction Type:Patient Education Patient Instructions Indication:BMI 27.0-27.9,adult Start:05-Feb-2017 Instruction Type:Provider Instructions for Treatment How to access health informa tion online Indication:Non-smoker Start:23-Oct-2016 Instruction Type:Patient Education How to access health informa tion online - Detail Indication:Non-smoker Start:23-Oct-2016 Instruction Type:Patient Education Patient Instructions Indication:Non-smoker Start:23-Oct-2016 Instruction Type:Provider Instructions for Treatment How to access health informa tion online Indication:Abnormal glucose tolerance test Start:02-Oct-2016 Instruction Type:Patient Education How to access health informa tion online - Detail Indication:Abnormal glucose tolerance test Start:02-Oct-2016 Instruction Type:Patient Education Patient Instructions Indication:Abnormal glucose tolerance test Start:02-Oct-2016 Instruction Type:Provider Instructions for Treatment How to access health informa tion online Indication:Non-smoker Start:29-May-2016 Instruction Type:Patient Education How to access health informa tion online - Detail Indication:Non-smoker Start:29-May-2016 Instruction Type:Patient Education Patient Instructions Indication:Non-smoker Start:29-May-2016 Instruction Type:Provider Instructions for Treatment Patient Instructions Indication:Abnormal glucose tolerance test Start:21-Feb-2016 Instruction Type:Provider Instructions for Treatment How to access health informa tion online Indication:Abnormal glucose tolerance test Start:21-Feb-2016 Instruction Type:Patient Education How to access health informa tion online - Detail Indication:Abnormal glucose tolerance test Start:21-Feb-2016 Instruction Type:Patient Education How to access health informa tion online Indication:Abnormal glucose tolerance test Start:20-Apr-2015 Instruction Type:Patient Education How to access health informa tion online - Detail Indication:Abnormal glucose tolerance test Start:20-Apr-2015 Instruction Type:Patient Education Patient Instructions Indication:Abnormal glucose tolerance test Start:20-Apr-2015 Instruction Type:Provider Instructions for Treatment How to access health informa tion online Indication:Anxiety Start:19-Dec-2014 Instruction Type:Patient Education How to access health informa tion online - Detail Indication:Anxiety Start:19-Dec-2014 Instruction Type:Patient Education Patient Instructions Indication:Anxiety Start:19-Dec-2014 Instruction Type:Provider Instructions for Treatment Patient Instructions Indication:Encounter for Medicare annual wellness exam Start:18-May-2014 Instruction Type:Provider Instructions for Treatment obesity counseling Indication:Hypertension, benign Start:18-May-2014 Instruction Type:Provider Instructions for Treatment Patient Instructions Indication:Hypertension, benign Start:01-Nov-2013 Instruction Type:Provider Instructions for Treatment Patient Instructions: stop a ltace adn start norvasc for bp Indication:Hypertension, benign Start:19-Apr-2013 Instruction Type:Provider Instructions for Treatment Patient Instructions Indication:Pain in joint involving lower leg Start:07-Dec-2012 Instruction Type:Provider Instructions for Treatment Patient Instructions Indication:Encounter for Medicare annual wellness exam Start:29-Apr-2012 Instruction Type:Provider Instructions for Treatment Patient Instructions Indication:Anxiety Start:16-Apr-2012 Instruction Type:Provider Instructions for Treatment Chief Complaint Chief Complaint Description Start Date left thumb finger catching Preliminary chief co mplaint data, not yet signed by the author as of Advance Directives No Advanced Directives Records Found Advance Directive Response Recorded Date/ Time Advance Directives No January 07 8:21am Living Will No February 07 12:52pm Power of [place] No February 07 12:52pm Advance Directive Response Recorded Date/ Time Advance Directives No January 07 7:21am Living Will No February 07 11:52am Power of [place] No February 07 11:52am Advance Directive Response Recorded Date/ Time Advance Directives No January 07 7:21am Living Will No July 13 7:38pm Power of [place] No July 13, 2022 7:38pm Advance Directive Response Recorded Date/ Time Advance Directives No January 07 7:21am Living Will No July 14 11:59pm Power of [place] No July 14, 2022 11:59pm Advance Directive Response Recorded Date/ Time Advance Directives No January 07 7:21am Living Will No July 27 7:08pm Power of [place] No July 27, 2022 7:08pm Advance Directive Response Recorded Date/ Time Advance Directives No January 07 7:21am Living Will No March 21, 2023 1:06pm Power of [place] No February 1:06pm Advance Directive Response Recorded Date/ Time Advance Directives No January 07 7:21am Living Will No July 15 9:10am Power of [place] No July 15, 2023 9:10am Advance Directive Response Recorded Date/ Time Advance Directives No January 07 7:21am Living Will No August 11 12:37am Power of [place] No August 11, 2023 12:37am Advance Directive Response Recorded Date/ Time Do you have a Healthcare Power of [place]? No November 03, 2024 5:28pm Advance Directives No February 11:09am Advance Directive Response Recorded Date/ Time Living Will No August 11 1:37am Do you have a Healthcare Power of [place]? No August 11, 2023 1:37am Do you have a Healthcare Power of [place]? No November 03, 2024 5:28pm Advance Directives No February 11:09am Advance Directive Response Recorded Date/ Time Living Will No August 11, 1:37am Do you have a Healthcare Power of [place]? No August 11, 2023 1:37am Do you have a Healthcare Power of [place]? No November 03, 2024 5:28pm Do you have a Healthcare Power of [place]? No December 27, 2024 12:41pm Advance Directives No February 11:09am Assessments There may be information available, but it has not been provided by the sender. Review of System There may be information available, but it has not been provided by the sender. History of Present Illness There may be information available, but it has not been provided by the sender. Chief Complaint and Reason for Visit Chief Complaint 6-8 M FU CAD Coronary artery disease Reason for Visit Essential (primary) hypertension History of coronary artery stent placement Pure hypercholesterolemia Chief Complaint CAD Coronary artery disease Chief Complaint SCREENING/POST JUMA Chief Complaint SCREENING/POST JUMA CONCERN FOR SINUS INFECTION HYPERTENSION Reason for Visit Acute sinusitis Chief Complaint SCREENING/POST JUMA CONCERN FOR SINUS INFECTION HYPERTENSION high bp Reason for Visit Acute sinusitis Chief Complaint SCREENING/POST JUMA CONCERN FOR SINUS INFECTION HYPERTENSION high bp 1 Y FU HYPERTENSION Reason for Visit Acute sinusitis Essential (primary) hypertension History of coronary artery stent placement Pure hypercholesterolemia Chief Complaint back pain left ovary pain, bulge *ok per [facility] PELVIC PAIN Reason for Visit Pelvic pain Chief Complaint left ovary pain, bul ge *ok per MH PELVIC PAIN Consult for HD&C CONSTIPATION XRAY D&C Symphion PREOP RECTAL BLEEDING Hysteroscopy,D&C Symphion Hysteroscopy,D&C Symphion Reason for Visit Pelvic pain Endometrial polyp History of coronary artery stent placement Endometrial polyp Atherosclerosis of coronary artery of [place] heart without angina pectoris History of coronary artery stent placement BRBPR (bright red blood per rectum) Screening for colon cancer Endometrial polyp Chief Complaint left ovary pain, bul ge *ok per MH PELVIC PAIN Consult for HD&C CONSTIPATION XRAY D&C Symphion PREOP RECTAL BLEEDING Hysteroscopy,D&C Symphion Hysteroscopy,D&C Symphion vaginal itch/burn post op 2 wk D&C Symphion htn Reason for Visit Pelvic pain Endometrial polyp History of coronary artery stent placement Endometrial polyp Atherosclerosis of coronary artery of [place] heart without angina pectoris History of coronary artery stent placement BRBPR (bright red blood per rectum) Screening for colon cancer Endometrial polyp Dysuria Vaginal itching Postoperative examination Chief Complaint Admit Date GROIN PAIN November 03, 2024 5:27p m Chief Complaint Admit Date GROIN PAIN November 03, 2024 5:27p m INGUINAL HERNIA November 12, 2024 9:32a m 1 Y FU December 06, 2024 11:2 4am Reason for Visit Admit Date LLQ abdominal pain November 12, 2024 9:32a m Essential (primary) hypertension December 062024 11:24am History of coronary artery stent placeme nt December 06, 2024 11:24am Pure hypercholesterolemia December 06 11:24am Reason for Visit Admit Date LLQ abdominal pain November 12, 2024 9:32a m Essential (primary) hypertension December 062024 11:24am History of coronary artery stent placeme nt December 06, 2024 11:24am Pure hypercholesterolemia December 06 11:24am Screening for colon cancer December 29 7:39am Summary Purpose Additional Source Comments Reason for Visit (unrecogniz ed section and content) Reason For Visit Description New Complaint Preliminary reason f or visit data, not yet signed by the author as of left thumb finger catching Reason Comments right rib pain x 8 days Reason Comments Urinary Problem Frequency, urinary d iscomfort x 3 days Reason Comments Results Reason Comments Urinary Frequency burning with urinati on x 3-4 days Reason Onset Date Comments Results 10/28/2024 Source Comments (unrecognize d section and content) In the event this informatio n is protected by the Federal Confidentiality of Alcohol and Drug Abuse Patient Records regulations: The Federal rules restrict any use of the information to criminally investigate or prosecute any alcohol or drug abuse patient.[facility] Hospital[facility] the event this information is protected by the Federal Confidentiality of Alcohol and Drug Abuse Patient Records regulations: The Federal rules restrict any use of the information to criminally investigate or prosecute any alcohol or drug abuse patient.[facility] HospitalIn the event this information is protected by the Federal Confidentiality of Alcohol and Drug Abuse Patient Records regulations: The Federal rules restrict any use of the information to criminally investigate or prosecute any alcohol or drug abuse patient.[facility] HospitalIn the event this information is protected by the Federal Confidentiality of Alcohol and Drug Abuse Patient Records regulations: The Federal rules restrict any use of the information to criminally investigate or prosecute any alcohol or drug abuse patient.[facility] HospitalIn the event this information is protected by the Federal Confidentiality of Alcohol and Drug Abuse Patient Records regulations: The Federal rules restrict any use of the information to criminally investigate or prosecute any alcohol or drug abuse patient.[facility] HospitalIn the event this information is protected by the Federal Confidentiality of Alcohol and Drug Abuse Patient Records regulations: The Federal rules restrict any use of the information to criminally investigate or prosecute any alcohol or drug abuse patient.[facility] HospitalIn the event this information is protected by the Federal Confidentiality of Alcohol and Drug Abuse Patient Records regulations: The Federal rules restrict any use of the information to criminally investigate or prosecute any alcohol or drug abuse patient.[facility] Care Teams (unrecognized sec tion and content) Workforce Management Manager Relationship Specialty Start Date End Date Emily Jenkins DO PCP - General Internal Medicine 04/16/12 Team Status: Active Member Role Status Dates Dr. Emily Jenkins DO Family Provider Active Dr. Emily Jenkins DO Primary Care Provider Active Team Status: Inactive Member Role Status Dates Dr. Emily Jenkins DO Primary Care Provider, Referr ing Provider Active Bruce KO PA Attending Provider Active Team Status: Inactive Member Role Status Dates Dr. Emily Jenkins DO Primary Care Provider, Attend ing Provider Active Team Status: Inactive Member Role Status Dates Dr. Emily Jenkins , DO Primary Care Provider Active Dr. Michael Barron MD Emergency Provider Active Team Status: Inactive Member Role Status Dates Dr. Emily Jenkins , DO Primary Care Provider Active Dr. Preet Scott , DO Emergency Provider Active Team Status: Inactive Member Role Status Dates Dr. Emily Jenkins DO Primary Care Provider, Referr ing Provider Active Santos Donato TAX CREDIT LEASING CONSULTANT, TAX CREDIT LEASING CONSULTANT-C Attending Provider Active Team Status: Inactive Member Role Status Dates Dr. Emily Jenkins DO Primary Care Provider Active Dr. Michael Barron MD Attending Provider, Emergency Pro vider Active Team Status: Inactive Member Role Status Dates Dr. Emily Jenkins , DO Primary Care Provider Active Dr. Preet Scott , DO Attending Provider, Emergency Provide r Active Team Status: Inactive Member Role Status Dates Dr. Emily Jenkins DO Primary Care Provider Active Dr. Frank Guzmán MD Emergency Provider Active Dr. Reilly Abbott MD Other Provider Active Team Status: Inactive Member Role Status Dates Dr. Emily Jenkins DO Primary Care Provider, Referr ing Provider Active Rebeka Charles TAX CREDIT LEASING CONSULTANT, TAX CREDIT LEASING CONSULTANT-C Attending Provider Active Team Status: Inactive Member Role Status Dates Dr. Emily Jenkins DO Primary Care Provider Active Dr. Maxine Osborne MD Attending Provider, Emergency Provider Active Team Status: Inactive Member Role Status Dates Dr. Emily Jenkins DO Primary Care Provider Active Rebeka Charles TAX CREDIT LEASING CONSULTANT, TAX CREDIT LEASING CONSULTANT-C Attending Provider, Referring Provider Active Team Status: Inactive Member Role Status Dates Dr. Emily Jenkins DO Primary Care Provider, Referr ing Provider Active Dr. Katie Segura MD Attending Provider Active Team Status: Inactive Member Role Status Dates Dr. Emily Jenkins DO Primary Care Provider Active Dr. Reilly Abbott MD Attending Provider Active Team Status: Inactive Member Role Status Dates Dr. Emily Jenkins DO Primary Care Provider, Referr ing Provider Active Dr. Allison Roblero MD Attending Provider Active Team Status: Active Member Role Status Dates Dr. Emily Jenkins DO Primary Care Provider Active Dr. Rizwan Bill MD Attending Provider Active Dr. Katie Segura MD Referring Provider Active Team Status: Active Member Role Status Dates Dr. Emily Jenkins , DO Primary Care Provider Active Dr. Katie Segura MD Attending Pr ovider, Referring Provider, Other Provider Active Team Status: Inactive Member Role Status Dates Dr. Emily Jenkins , DO Primary Care Provider Active Dr. Katie Segura MD Attending Provider, Referr ing Provider Active Team Status: Inactive Member Role Status Dates Dr. Emily Jenkins , DO Primary Care Provider Active Dr. Hank Reyes , Attending Provider, Emergency P deon Active Team Status: Inactive Member Role Status Dates Dr. Emily Jenkins , DO Primary Care Provider, Referr ing Provider Active Santos Zamora CNM Attending Provider Active Team Status: Inactive Member Role Status Dates Dr. Emily Jenkins , DO Primary Care Provider Active Santos Zamora CNM Attending Provider, Referring Pro vider Active Team Status: Inactive Member Role Status Dates Dr. Emily Jenkins , DO Primary Care Provider Active Dr. Konstantin Leiva , Emergency Provider Active Workforce Management Manager Relationship Specialty Start Date End Date Emily Jenkins DO PCP - General Internal Medicine 04/16/12 Workforce Management Manager Relationship Specialty Start Date End Date Emily Jenkins DO PCP - General Internal Medicine 04/16/12 Workforce Management Manager Relationship Specialty Start Date End Date Emily Jenkins DO PCP - General Internal Medicine 04/16/12 Workforce Management Manager Relationship Specialty Start Date End Date Emily Jenkins DO PCP - General Internal Medicine 04/16/12 Workforce Management Manager Relationship Specialty Start Date End Date Emily Jenkins DO PCP - General Internal Medicine 04/16/12 Workforce Management Manager Relationship Specialty Start Date End Date Emily Jenkins DO PCP - General Internal Medicine 04/16/12 Team Status: Active Member Role Status Dates Dr. Emily Jenkins DO Primary Care Provider Active Team Status: Inactive Member Role Status Dates Dr. Emily Jenkins DO Primary Care Provider Active Start: November 03, 2024 End: November 03, 2024 Dr. Jung Mckeon DO Emergency Provider Active Start: November 03, 2024 End: November 03, 2024 Team Status: Inactive Member Role Status Dates Dr. Emily Jenkins DO Primary Care Provider Active Start: November 03, 2024 End: November 03, 2024 Dr. Jung Mckeon DO Attending Provider Active Start: November 03, 2024 End: November 03, 2024 Dr. Jung Mckeon DO Emergency Provider Active Start: November 03, 2024 End: November 03, 2024 Team Status: Inactive Member Role Status Dates Dr. Emily Jenkins DO Primary Care Provider Active Start: November 12, 2024 End: November 12, 2024 Dr. Emily Jenkins DO Referring Provider Active Start: November 12, 2024 End: November 12, 2024 Dr. Allison Roblero MD Attending Provider Active Start: November 12, 2024 End: November 12, 2024 Team Status: Inactive Member Role Status Dates Dr. Emily Jenkins DO Primary Care Provider Active Start: December 06, 2024 End: December 06, 2024 Dr. Emily Jenkins DO Referring Provider Active Start: December 06, 2024 End: December 06, 2024 Bayron Alberts TAX CREDIT LEASING CONSULTANT, TAX CREDIT LEASING CONSULTANT-C Attending Provider Active S tart: December 06, 2024 End: December 06, 2024 Team Status: Active Member Role/Relationship Status Dates Dr. Emily Jenkins DO Primary Care Provider Active Team Status: Inactive Member Role/Relationship Status Dates Dr. Emily Jenkins DO Primary Care Provider Active Start: November 03, 2024 End: November 03, 2024 Dr. Jung Mckeon DO Attending Provider Active Start: November 03, 2024 End: November 03, 2024 Dr. Jung Mckeon DO Emergency Provider Active Start: November 03, 2024 End: November 03, 2024 Team Status: Inactive Member Role/Relationship Status Dates Dr. Emily Jenkins DO Primary Care Provider Active Start: November 12, 2024 End: November 12, 2024 Dr. Emily Jenkins DO Referring Provider Active Start: November 12, 2024 End: November 12, 2024 Dr. Allison Roblero MD Attending Provider Active Start: November 12, 2024 End: November 12, 2024 Team Status: Inactive Member Role/Relationship Status Dates Dr. Emily Jenkins DO Primary Care Provider Active Start: December 06, 2024 End: December 06, 2024 Dr. Emily Jenkins DO Referring Provider Active Start: December 06, 2024 End: December 06, 2024 Bayron Alberts TAX CREDIT LEASING CONSULTANT, TAX CREDIT LEASING CONSULTANT-C Attending Provider Active S tart: December 06, 2024 End: December 06, 2024 Team Status: Inactive Member Role/Relationship Status Dates Dr. Emily Jenkins DO Primary Care Provider Active Start: December 29, 2024 End: December 29, 2024 Dr. Emily Jenkins DO Referring Provider Active Start: December 29, 2024 End: December 29, 2024 Dr. Allison Roblero MD Attending Provider Active Start: December 29, 2024 End: December 29, 2024 Team Status: Active Member Role/Relationship Status Dates Dr. Emily Jenkins DO Primary Care Provider Active Start: December 29, 2024 Dr. Emily Jenkins DO Referring Provider Active Start: December 29, 2024 Dr. Allison Roblero MD Attending Provider Active Start: December 29, 2024 Dr. Allison Roblero MD Other Provider Active S tart: December 29, 2024 Goals (unrecognized section and content) Goals may be documented in a n alternate sectionGoals may be documented in an alternate sectionGoals may be documented in an alternate sectionGoals may be documented in an alternate sectionGoals may be documented in an alternate sectionGoals may be documented in an alternate section No data available for this section No data available for this sectionGoals may be documented in an alternate sectionGoals may be documented in an alternate sectionGoals may be documented in an alternate section INFORMATION SOURCE (unrecogn ized section and content) DATE CREATED AUTHOR 10/24/2022 [facility] DATE CREATED AUTHOR AUTHOR'S ORGANIZ ATION 03/28/2023 [facility] ([place]) DATE CREATED AUTHOR AUTHOR'S ORGANIZ ATION 11/03/2024 [facility] DATE CREATED AUTHOR AUTHOR'S ORGANIZ ATION 01/09/2025 [facility] FOR RECORDS PERTAINING TO PATIENTS WHO ARE OR HAVE BEEN ENROLLED IN A CHEMICAL DEPENDENCY/SUBSTANCEABUSE PROGRAM, SOME INFORMATION MAY BE OMITTED. This clinical summary was aggregated from multiple sources. Caution should be exercised in using it in the provision of clinical care. This summary normalizes information from multiple sources, and as a consequence, information in this document may materially change the coding, format and clinical context of patient data. In addition, data may be omitted in some cases. CLINICAL DECISIONS SHOULD BE BASED ON THE PRIMARY CLINICAL RECORDS. [employer] [facility]. provides no warranty or guarantee of the accuracy or completeness of information in this document.
[2025-01-14 03:51] VITALS: BP 169/60; PULSE 62; RESP 18; TEMP 36.6; O2SAT 99
== END 2025-01-14 03:58 | disposition home or self-care (01) ==
PROVIDERS: Emergency Provider Emergency Medicine; PCP Internal Medicine; Visit Provider Emergency Medicine
DX: N39.0 Urinary tract infection, site not specified (principal); E78.00 Pure hypercholesterolemia, unspecified; Z87.891 Personal history of nicotine dependence; F43.0 Acute stress reaction; F41.9 Anxiety disorder, unspecified; I10 Essential (primary) hypertension; I25.10 Atherosclerotic heart disease of native coronary artery without angina pectoris; J45.909 Unspecified asthma, uncomplicated; Z79.899 Other long term (current) drug therapy
CPT/HCPCS: 81001; 87077; 87086; 87088; 87186; 93005; 99283

== ENCOUNTER → 2025-02-02 | Outpatient (CLI) | payer MEDICARE, SELFPAY ==
[2024-03-22 11:09] VITALS: BMI 30.5
== END | disposition home or self-care (01) ==
LOC: LABSPEC 15:30
PROVIDERS: PCP Internal Medicine; Visit Provider Physician Assistant
DX: R82.90 Unspecified abnormal findings in urine (principal)
CPT/HCPCS: 87086; 87088

== ENCOUNTER → 2025-04-22 | Outpatient (CLI) | payer MEDICARE, SELFPAY ==
[2024-03-22 11:09] VITALS: BMI 30.5
[2025-04-22 12:22] LABS: Hematocrit 40.0 % (37-47); Hemoglobin 13.5 g/dL (12.0-15.0); Immature Granulocytes Count 0.020 X10^3/uL (0.0-0.0); Mean Corp Hgb Conc 33.8 g/dL (32-36); Mean Corpuscular Volume 90.9 fL (81-99); Mean Platelet Vol. 9.5 fl (6.2-12.0); NRBC Flagged by Analyzer 0 % (0-5); Platelet Count 300 K/mm3 (150-450); RBC Distribution Width CV 12.3 % (11.6-14.6); RBC Distribution Width SD 40.6 fl (35.1-43.9); Red Blood Count 4.40 M/mm3 (4.2-5.4); White Blood Count 8.2 K/mm3 (4.4-11.0)
[2025-04-22 12:35] LABS: Color, Urine Yellow (Yellow); Glucose, Dipstick Normal (Normal); Ketone-Dipstick Negative (Negative); Leukocyte Esterase-Dipstick 500 /ul (Negative); Nitrite-Dipstick Negative (Negative); Occult Blood-Urine 10 /ul (Negative); Protein-Dipstick 30 mg/dl (Negative); Specific Gravity, Urine 1.025 (1.002-1.030); Urine Bilirubin Dipstick Negative (Negative)
[2025-04-22 12:47] LABS: Mucous, Urine 1+ /hpf (<or=2+); Red Blood Cells-Urine 0-5 SEEN /hpf (0-5); Squamous Epithelial Cells - UA 0-5 SEEN /hpf (5-10)
[2025-04-22 13:15] LABS: AST(SGOT) 21 U/L (<=31); Alanine Aminotransfer ALT/SGPT 22 U/L (<=34); Albumin, Serum 4.2 g/dL (3.4-4.8); Alkaline Phosphatase 62 U/L (35-104); Anion Gap 8 (5-15); BUN 20 mg/dL (4-19); BUN/Creat Ratio 25.0 RATIO (10-20); Calcium,Total 9.8 mg/dL (7.6-11.0); Carbon Dioxide 28.2 mmol/L (21.0-32.0); Chloride 105 mmol/L (98-108); Cholesterol 152 mg/dL (<=200); Globulin 3.0 g/dL (2.2-4.2); Glucose 108 mg/dL (70-99); Low Density Lipoprotein Calc. 75 mg/dL; Potassium 4.9 mmol/L (3.3-5.1); Triglycerides 223 mg/dL; Very Low Density Lipoprotein 45 mg/dL (5-40); Vitamin D,25 Hydroxy 81.4 ng/mL (30-100); cholesterol:hdl ratio screen 3.80
[2025-04-22 17:54] LABS: Creatinine, Urine (random) 210.00 mg/dL (28.00-217.00); Microalbumin,Random Urine 62.5 mg/L (<20 mg/L)
== END | disposition home or self-care (01) ==
LOC: MTLAB 10:04
PROVIDERS: PCP Internal Medicine; Referring Provider Internal Medicine; Visit Provider Internal Medicine
DX: E78.5 Hyperlipidemia, unspecified (principal); R80.9 Proteinuria, unspecified; E55.9 Vitamin D deficiency, unspecified; R73.09 Other abnormal glucose
CPT/HCPCS: 36415; 80053; 80061; 81001; 82043; 82306; 82570; 84443; 85025

== ENCOUNTER → 2025-05-20 | Outpatient (CLI) | payer MEDICARE, SELFPAY ==
[2024-03-22 11:09] VITALS: BMI 30.5
== END | disposition home or self-care (01) ==
LOC: PSN 08:28
PROVIDERS: PCP Internal Medicine; Referring Provider Internal Medicine; Visit Provider Internal Medicine
DX: I48.91 Unspecified atrial fibrillation (principal); R00.1 Bradycardia, unspecified
CPT/HCPCS: 93225; 93226